=== PATIENT | male | born 1950 | race Caucasian/White ===

== ENCOUNTER → 2017-09-24 09:49 | Outpatient (CLI) | payer MEDICARE, OTHER, SELFPAY ==
[2017-09-24 10:55] LABS: Amphetamine Urine VISTA NEGATIVE (<1000 ng/mL); Barbiturate Urine VISTA NEGATIVE (< 200 ng/mL); Benzodiazepine Urine VISTA NEGATIVE (< 200 ng/mL); Cocaine Urine VISTA NEGATIVE (< 300 ng/mL); Ecstacy Urine VISTA NEGATIVE (< 500 ng/mL); Methadone Urine VISTA NEGATIVE (< 300 ng/mL); PCP Urine VISTA NEGATIVE (< 25 ng/mL); THC Urine VISTA NEGATIVE (< 50 ng/mL); Vista UDS pH Range 5
== END ==
PROVIDERS: Visit Provider Anesthesiology Pain Medicine
DX: F11.20 Opioid dependence, uncomplicated (principal)
CPT/HCPCS: 80307

== ENCOUNTER 2018-04-08 13:00 | Outpatient (RCR) | payer MEDICARE, OTHER, SELFPAY ==
--- NOTE | 2018-01-28 13:04 | HP.PTEVAL_ITS ---
Patient's Visit Information SRIRAM MADDOX is a 67 year old M referred to Physical Therapy by Out of Town Doctor with a diagnosis of s/p laminectomy. Date of Evaluation: 01/28/18 Physical Therapist: Vinicio Leyva DPT, OC - Visit Plan Frequency: 2x /Week Duration: 2 Months Plan: 2x/week for 6-8 weeks for. 1. Ensure LB ROM improving and HEP. 2. quad /HS and piri and hip flexor and gastroc stretches taught for HEP. 3. LE adn core strength, emphasize L PF strength. 4. Functional progression back to golf swing. Pt is [employer] member and emphasis put on progression to I. - Subjective Subjective: Aug 05 2016 had open heart surgery and pulled vein from L LE. Rowing machine in cardiac rehab started back problem. [facility] did surgery 12/03 to take spur off spine. This was due to shooting pain down legs which was gone immediately after surgery. Was in pain management prior with multiple injections. L leg is very weak and it was very painful prior to surgery. Can' t go up on L toes due to weakness. No exercises yet, just got cleared last week as he has been walking only for the last couple months. Was walking 3-6 miles prior to this problem, going about a mile now. Sleep is OK. Pain is not present except with bending when he gets it on the left side trasniently. Not emplyed. Likes to golf and wants to get back to it, has swung wedge shots last week. Basic ADLs are Ok, steps to basement are OK, notices weakness in L LE. Walk is not normal as it is hard to push off with L LE. - Pain L LBP Pain Intensity (Out of 10): 0 Pain Intensity Range: 0, 4 - Objective Walks slowly but I, stiff in spine, transfers I, Steps are reciprocal with a rail, L heel plops to step descending. LB AROM ext max limited, SB mod limited , flexion mod limited especially lower L/S. HS, quads and gastroc flex is poor. - Slump and SLR. Strength is 4/5 throughout LE except L plantar flexionw hcih is 3/5 adn unable to elevate body weight. reflexes 2/3 in patella and achilles B. Sensation WNL to gross light touch. Walking does show some poor push off on L. - Goals Goal 1:: Full L/ S ROM without pain Goal Time Frame: 4-6 Weeks Goal 2:: I approp flex adn strength program for core and LE Goal Time Frame: 6-8 Weeks Goal 3:: plan to resume golfing Goal Time Frame: 6-8 Weeks Goal 4:: Pt report 90% back to normal and guillermo ctivities including walking to feel good. Goal Time Frame: 6-8 Weeks - Rehabilitation Potential Physical Therapy Diagnosis: s/p laminectomy Rehabilitation Potential: Fair - Anticipated Interventions Patient/Client Instruction: Educate patient on: Condition, Plan of Care For the Purpose of:: To decrease pain, To increase ROM, To improve ability of physical actions for home/community/work/leisure, To improve gait and locomotor functions Therapeutic Exercise to Include: Strength training, Postural training, Flexibilty training, Gait and locomotor training, Passive ROM, Active ROM, Lizandro Exercises For the Purpose of:: To decrease pain, To increase ROM, To improve ability of physical actions for home/community/work/leisure, To improve gait and locomotor functions Manual Therapy Techniques to Include: Scar massage, Passive ROM For the Purpose of:: To increase ROM Cryotherapy (ice pack, ice massage): Yes Thermo therapy (hot pack): Yes For the Purpose of:: To decrease pain Thank you for the opportunity to evaluate your patient. For Medicare and Medicare HMO plans, please review the plan of care and approve it. It will need to be FAXED BACK to us at [phone] for Medicare purposes. Please let me know if there are questions or concerns regarding this plan of care. Physician Signature: Date:
--- NOTE | 2018-03-12 13:59 | HP.PTREVAL ---
PARESH LALA [employer] SAWYER, It has been my pleasure to treat SRIRAM MADDOX over the last 8 visits for s/p laminectomy. Please see the progress note below for an update on the physical therapy plan of care! Subjective: Doesn't feel like he is making much improvement with pain. Strength and flex impriving but still has pain L hip and calf muscle. Will have US tomorrow to rule out kidney stones. No f/u visit with . Sleep is OK on left side. Worse up and on feet. Feels better for an hour after leaving PT. Worst pain is to 8/10 after sitting for a long period of time. Objective/Function: ROM is looking good but still some pain with L SB and ext in L LB. finds neutral spine well with cues. OVERALL IS SLOWLY IMPROVING. Plan Plan: continue 2x/week for 4 weeks for. 1. neutral spine focus with core strength and LE/postural strength and progress to HEP with band and mat and BW exercises with pics. Goals Goal 1:: Full L/ S ROM without pain Goal Time Frame: 4-6 Weeks Goal Progress: Progressing Goal 2:: I approp flex adn strength program for core and LE Goal Time Frame: 6-8 Weeks Goal Progress: Progressing Goal 3:: plan to resume golfing Goal Time Frame: 6-8 Weeks Goal Progress: Progressing Goal 4:: Pt report 90% back to normal and guillermo ctivities including walking to feel good. Goal Time Frame: 6-8 Weeks Goal Progress: Progressing Anticipated Interventions Patient/Client Instruction: Educate patient on: Condition, Plan of Care For the Purpose of:: To decrease pain, To increase ROM, To improve ability of physical actions for home/community/work/leisure, To improve gait and locomotor functions Therapeutic Exercise to Include: Strength training, Postural training, Flexibilty training, Gait and locomotor training, Passive ROM, Active ROM, Lizandro Exercises For the Purpose of:: To decrease pain, To increase ROM, To improve ability of physical actions for home/community/work/leisure, To improve gait and locomotor functions Manual Therapy Techniques to Include: Scar massage, Passive ROM For the Purpose of:: To increase ROM Cryotherapy (ice pack, ice massage): Yes Thermo therapy (hot pack): Yes For the Purpose of:: To decrease pain Please do not hesitate to contact me at [phone] by phone or if you have questions or concerns regarding this new plan of care! Sincerely, Vinicio Leyva, DPT, OC
--- NOTE | 2018-06-20 14:11 | HP.PT.NRP ---
HP - Discharge Summary (1) - Patient Information SRIRAM MADDOX was seen in my office for initial evaluation on 01/28/18. The following Plan of Care was established for this patient: Initial Frequency: 2x /Week Initial Duration: 2 Months - Anticipated Interventions Patient/Client Instruction: Educate patient on: Condition, Plan of Care For the Purpose of:: To decrease pain, To increase ROM, To improve ability of physical actions for home/community/work/leisure, To improve gait and locomotor functions Therapeutic Exercise to Include: Strength training, Postural training, Flexibilty training, Gait and locomotor training, Passive ROM, Active ROM, Lizandro Exercises For the Purpose of:: To decrease pain, To increase ROM, To improve ability of physical actions for home/community/work/leisure, To improve gait and locomotor functions Manual Therapy Techniques to Include: Scar massage, Passive ROM For the Purpose of:: To increase ROM Cryotherapy (ice pack, ice massage): Yes Thermo therapy (hot pack): Yes For the Purpose of:: To decrease pain This patient was last seen in our office 04/08/18. Pertinent comments regarding their Physical therapy will appear below: Pt seen 15 visits of plan of care but no showed for his last couple visits. At this point, it has eleanor over two months and I will discontinue due to nonattendance. At this point I will be discontinuing this patient from physical therapy. I would be happy to see this patient again in the future if found appropriate by the physician. Thank you! Vinicio Leyva, DPT, OCS, CSCS
== END 2018-04-08 19:00 | disposition home or self-care (01) ==
LOC: PT 13:00
DX: Z98.890 Other specified postprocedural states (principal)
CPT/HCPCS: 97110; 97162; 97530

== ENCOUNTER → 2018-06-17 09:53 | Outpatient (CLI) | payer MEDICARE, OTHER, SELFPAY ==
--- NOTE | 2018-06-17 10:06 | ECHOD_ITS ---
Reason For Study: CAD/ASHD Procedure This was a 2D Doppler, Color Flow transthoracic echocardiogram. Exam performed in department. Left Ventricle Normal size and thickness. The estimated ejection fraction is 65 %. Stage 1 diastolic dysfunction. No regional wall motion abnormalities noted. Right Ventricle Normal size and thickness. Normal systolic function. Atria Normal left atrium. Normal right atrium. Normal atrial septum. Mitral Valve The mitral valve is structurally normal. No prolapse or stenosis seen. Tricuspid Valve Normal tricuspid valve. Trivial tricuspid valve insufficiency. Right ventricular systolic pressure estimated to be 30 mmHg. Aortic Valve Trisinus/trileaflet aortic valve. Moderate diffuse aortic valve thickening. Mild to moderate aortic stenosis. Peak aortic valve gradient 37 mmHg. Mean aortic valve gradient 18 mmHg. Calculated aortic valve area (continuity equation) is 1.0 cm2. Trivial aortic valve insufficiency. Pulmonic Valve Normal pulmonic valve. Great Vessels Normal aortic root. Normal arch. Normal inferior vena cava. Inferior vena cava collapse with sniff. Pericardium/Pleural No pericardial effusion. MMode/2D Measurements & Calculations LVIDd: 4.8 cm IVSd: 0.91 cm LVOT diam: 2.0 cm LVIDs: 3.3 cm LVPWd: 1.0 cm LVOT area: 3.2 cm2 RVDd: 2.7 cm FS: 31.2 % Ao root diam: 3.2 cm LAV(MOD-bp): 56.2 ml LA A4 area: 18.2 cm2 LAV(MOD-bp) Indexed: 28.3 ml/m2 LAV(MOD-sp2): 55.9 ml LAV(MOD-sp4): 53.6 ml LA dimension(2D): 4.0 cm RA A4 area: 15.7 cm2 Time Measurements MV dec time: 0.33 sec Doppler Measurements & Calculations MV E max josh: 70.4 cm/sec Lat Peak E' Josh: 7.0 cm/sec Med Peak E' Josh: 4.7 cm/sec MV A max josh: 102.6 cm/sec E/E' lat: 10.1 E/E' med: 14.9 MV E/A: 0.69 Ao V2 max: 295.9 cm/sec LV V1 max: 97.4 cm/sec SV(LVOT): 70.1 ml Ao max P.0 mmHg LV V1 max P.8 mmHg Ao V2 mean: 200.3 cm/sec LV V1 mean P.0 mmHg Ao mean P.8 mmHg LV V1 mean: 66.5 cm/sec Ao V2 VTI: 63.3 cm LV V1 VTI: 22.0 cm BARBARA(I,D): 1.1 cm2 BARBARA(V,D): 1.0 cm2 PA V2 max: 102.9 cm/sec TR max josh: 238.0 cm/sec TR max P.8 mmHg Interpretation Summary The estimated ejection fraction is 65 %. Stage 1 diastolic dysfunction. Trivial tricuspid valve insufficiency. Right ventricular systolic pressure estimated to be 30 mmHg. Trivial aortic valve insufficiency. Mild to moderate aortic stenosis. Compared to echo report dated 09/05/2015, no appreciable changes noted. Ordering Physician: Lavell Pinon Referring Physician: [facility] Performed By: Renee Sheldon, CONCHITA, RVT
--- OUTSIDE RECORDS SUMMARY | 2018-08-03 10:06 | XMS RPT_ITS ---
:1950 Author Organization OHIP Support Name Relationship Address Phone BRADLEY VIDALES Unavailable [address] + [place] [address] R Unavailable Unavailable Unavailable CROWNER, BRADLEY Unavailable [address] + [place] [address] R Unavailable Unavailable Unavailable CROWNER, BRADLEY Unavailable [address] + [place] [address] R Unavailable Unavailable Unavailable CROWNER, BRADLEY Unavailable [address] + [place] [address] R Unavailable Unavailable Unavailable CROWNER, BRADLEY Unavailable [address] + [place] [address] R Unavailable Unavailable Unavailable CROWNER, BRADLEY Unavailable [address] + [place] [address] R Unavailable Unavailable Unavailable CROWNER, BRADLEY Unavailable [address] + [place] [address] R Unavailable Unavailable Unavailable CROWNER, BRADLEY Unavailable [address] + [place] [address] R Unavailable Unavailable Unavailable CROWNER, BRADLEY Unavailable [address] + [place] [address] R Unavailable Unavailable Unavailable CROWNER, BRADLEY Unavailable [address] + [place] [address] R Unavailable Unavailable Unavailable CROWNER, BRADLEY Unavailable [address] + [place] [address] R Unavailable Unavailable Unavailable Care Team Providers Name Role Phone ANTWAN HAYWOOD Referring Unavailable ANTWAN HAYWOOD Referring Unavailable JESS LEONARDO Attending Unavailable JESS LEONARDO Referring Unavailable PARAM RIVERS Attending Unavailable SCHLENK, JESS P Referring Unavailable SCHLENK, JESS P Referring Unavailable SCHLENK, JESS P Referring Unavailable HAZMICHAEL SMILEY Attending Unavailable SCHMARKUS, JESS P Referring Unavailable ADITI, PARESH S (SUBSTITUTE SCHOOL NURSE) Referring Unavailable ADITI, PARESH S (SUBSTITUTE SCHOOL NURSE) Referring Unavailable ADITI, PARESH S (SUBSTITUTE SCHOOL NURSE) Attending Unavailable ADITI, PARESH S (SUBSTITUTE SCHOOL NURSE) Referring Unavailable HAYWOODANTWAN Attending Unavailable SCHMARKUS, JESS P Admitting Unavailable SCHLENK, JESS P Attending Unavailable SCHLENK, JESS P Referring Unavailable ADITI, PARESH Martinez (SUBSTITUTE SCHOOL NURSE) Referring Unavailable SCHLENK, JESS Sparrow Attending Unavailable Lavell Pinon [facility] Referring Unavailable Pinon, Lavell Attending Unavailable Zi, Lavell Referring [facility]available Marisol Hoff [facility]ending [facility] Referring Unavailable HoffMarisol Attending [facility] Referring Unavailable Basali, Loreto Attending Unavailable Basali, Loreto Referring [facility] Unavailable Lavell Pinon Attending Unavailable Lavell Pinon Referring Unavailable [facility]ending [facility] Referring Unavailable Rosalina Subramanian Attending Unavailable Lavell Pinon [facility]ending [facility] Referring [facility] Unavailable INEZ HUSTON Attending Unavailable INEZ HUSTON Referring Unavailable Lavell Pinon Attending Unavailable Lavell Pinon Referring [facility]available [facility] Unavailable PROBLEMS PROBLEMS DATE TYPE CONDITION / CODE ATTENDING STATUS SOURCE 06/26/2018 Unknown I73.9 - Peripheral Lavell Pinon Active [place] vascular disease, Community unspecified / Hospital I73.9(ICD-10) Repository 06/26/2018 Unknown I25.10 - Lavell Pinon Active [place] Atherosclerotic heart [facility] disease [facility] coronary artery Repository without angina pectoris / I25.10(ICD-10) 06/26/2018 Unknown E78.5 - Lavell Pinon Active [place] Hyperlipidemia, Community unspecified / Hospital E78.5(ICD-10) Repository 06/26/2018 Unknown I35.0 - Nonrheumatic Lavell Pinon Active [place] aortic (valve) Community stenosis / Hospital I35.0(ICD-10) Repository 07/02/2018 Unknown Z98.890 - Other INEZ HUSTON Active [place] specified [facility] / Z98.890(ICD-10) Repository 02/09/2016 Active Chronic kidney NA Active [place] disease, stage 3 [facility] (moderate) / [place] N18.3(ICD-10) Repository 02/09/2016 Active Benign prostatic NA Active [place] hyperplasia without [facility] lower urinary tract [place] symptoms / Repository N40.0(ICD-10) 02/28/2018 Active Encounter for ANTWAN HAYWOOD Active [place] screening for other [facility] disorder / [place] Z13.89(ICD-10) Repository 01/23/2018 Active Unknown / SCHLENK, Active [place] UNK(Unknown) JESS P [facility] [place] Repository 12/04/2017 Active Spinal stenosis, SCHLENK, Active [place] lumbar region with JESS P [facility] neurogenic [place] claudication / Repository M48.062(ICD-10) 12/04/2017 Active Other acute SCHLENK, Active [place] postprocedural pain / JESS P [facility] G89.18(ICD-10) [place] Repository 12/04/2017 Active Other specified SCHLENK, Active [place] postprocedural states JESS P [facility] / Z98.890(ICD-10) [place] Repository 12/04/2017 Active 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, 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 P [facility] radiculopathy, lumbar [place] region / Repository M47.816(ICD-10) 12/03/2017 Active Accidental puncture JORDEN, Active [place] or laceration of dura JESS P [facility] during a procedure / [place] G97.41(ICD-10) Repository 02/09/2016 Active Type 2 diabetes NA Active [place] mellitus with [facility] diabetic chronic [place] kidney disease / Repository E11.22(ICD-10) 02/09/2016 Active 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 / [facility] Z79.4(ICD-10) [place] Repository 08/23/2010 Active Hyperlipidemia, NA Active [place] unspecified / [facility] E78.5(ICD-10) [place] Repository 11/26/2017 Active Encounter for other NA Active [place] preprocedural [facility] examination / [place] Z01.818(ICD-10) Repository 11/22/2017 Unknown Z01.810 - Encounter Lavell Pinon Active [place] for preprocedural [facility] examination / Repository Z01.810(ICD-10) 11/19/2017 Active Personal history of NA Active [place] other endocrine, [facility] nutritional and [place] metabolic disease / Repository Z86.39(ICD-10) 10/17/2017 Unknown M99.03 - Segmental Dossie, Wendy Active [place] and somatic [facility] Community dysfunction of lumbar Hospital region / Repository M99.03(ICD-10) 10/17/2017 Unknown M99.02 - Segmental Dossie, Wendy Active [place] and somatic [facility] Community dysfunction of Hospital thoracic region / Repository M99.02(ICD-10) 10/17/2017 Unknown M99.05 - Segmental Dossie, Wendy Active [place] and somatic [facility] Community dysfunction of pelvic Hospital region / Repository M99.05(ICD-10) 10/17/2017 Unknown M48.061 - Spinal Dossie, Wendy Active [place] stenosis, lumbar [facility] region without Hospital neurogenic Repository claudication / M48.061(ICD-10) 09/24/2017 Unknown F11.20 - Opioid Basali, Ayman Active [place] dependence, Community uncomplicated / Hospital F11.20(ICD-10) Repository PROCEDURES PROCEDURES No Procedure Records FoundRESULTS RESULTS ARTERIAL Observed: 07/04/2018 Status: F Source: [place] 1:25 PM [facility] REPOSITORY [facility] Cardiovascular Services [address] [place] [address] Lower Ext Art Exam w/ Exercise 07/04/18 0955 MR#: [id number] Acct: [id number] Name: SAM VIDALES Rep #: [id number] : 1950 68 From: Abhilash Busch MD Attending Dr: Lavell Pinon MD Status: REG CLI Ordering Dr: Lavell Pinon MD Date: 07/04/18 Location: [facility] Sex: M C Admitted: Reason For Study: PVD Left Segmental Pressures Left brachial= 131mmHg. Left posterior tibial artery = 184mmHg. Left dorsalis pedis artery = 173mmHg. Left digit = 103 mmHg. The left dorsalis pedis waveforms are triphasic. The left posterior tibial artery waveforms are triphasic. Right Segmental Pressures Right brachial= 125mmHg. Right posterior tibial artery = 171mmHg. Right dorsalis pedis artery = 185mmHg. Right digit = 101 mmHg. The right dorsalis pedis waveforms are triphasic. The right posterior tibial artery waveforms are triphasic. Indices The right ankle brachial index by the dorsalis pedis is 1.4. The right ankle brachial index by the posterior tibial artery is 1.3. The right digital-brachial index is .77. The right post exercise ankle brachial index is N/C. The left ankle brachial index by the dorsalis pedis is 1.3. The left ankle brachial index by the posterior tibial artery is 1.4. The left digital-brachial index is .79. The left post exercise ankle brachial index is 1.3. Interpretation Summary Triphasic waveforms are noted at ankle level bilaterally. Resting ankle-brachial indices appear bilaterally normal. Resting digital-brachial indices appear bilaterally normal. Following exercise, ankle pressures augment bilaterally, which is a normal physiological response. There is no evidence of significant arterial occlusive disease on either side. Ordering Physician: Lavell Pinon Referring Physician: Lavell Pinon Performed By: Catalina Muñiz [facility] 07/04/18 1325 Date Abhilash Busch MD CC: [facility]; Lavell Pinon MD Date Dictated: 07/04/18 0955 Date Transcribed: 07/04/181324 Rigging Up Man: Signed CARDIOLOGY VISIT Observed: 06/26/2018 Status: F Source: [place] REPORT 2:13 PM [facility] REPOSITORY [facility] [address] [place] [address] OFFICE VISIT Date of Service: 06/26/18 MR#: [id number] Acct: [id number] Name: SAM VIDALES Rep #: [id number] : 1950 Provider: Lavell Pinon MD Age/Sex: 68/M Location: [facility] Status: Signed HPI HPI Chief Complaint: Routine f/u Details: Details: Referring Physician: Dr. Param Rivers This is a 68-year-old gentleman that presents here today for a cardiovascular follow-up. He has a history of coronary artery disease with aortic stenosis, hypertension, hyperlipidemia and diabetes. Patient had a heart catheterization in September 2015 which demonstrated 80% stenosis in the proximal to mid LAD, 70% stenosis in the proximal first diagonal, chronic total occlusion of the proximal first obtuse marginal artery, 60% stenosis in the proximal left circumflex. Fractional flow reserve of the proximal to mid circumflex artery was 0.87. Good collateral vessels from lateral second diagonal to first obtuse marginal were present. He was recommended that patient be considered for bypass surgery of the diagonal electively. And in the meantime been treated with optimal medical therapy. He had an echocardiogram done in August 2015 which demonstrated mild concentric LVH with an estimated ejection fraction of 65%. Stage I diastolic dysfunction. Right ventricular systolic pressure 25 mmHg. Moderate to severe thickening of a non- coronary cusp of aortic valve. Moderate aortic stenosis. Patient was referred to Dr. Bruno at that time, patient opted not to undergo surgery at that time. He had multiple questions and wanted to wait. He was previously in to see Dr. Bruno and had an echocardiogram done. Echocardiogram demonstrated normal left ventricular size and systolic function with no regional wall motion abnormalities. Ejection fraction 56%. Mild to moderate ventricular hypertrophy. Stage I diastolic dysfunction. Anatomy of the aortic valve was difficult to determine. Valve appears to at least be functionally bicuspid. Heavy calcification noted. Peak and mean transvalvular gradients are 32 and 15 mmHg. Estimated aortic valve area is 1.1 cm . Trivial aortic insufficiency. Moderate aortic stenosis. he decided to hold off on bypass surgery at that time. Pt then decided to revisit Dr. Bruno recently for continued symptoms of chest pain. He stated that for the first few minutes when he exercises he has chest discomfort to the left side of his chest. These symptoms last 5-10 minutes. After that he he can increase his walking speed. He is able to walk 3.8 miles an hour for 3- 6 miles. He walks every day. He was also able to golf last year. He would walk 18 holes of golf. He does not have any palpitations. He does not near syncope/syncope. He does not have any edema. He feels that he is just starting to get his DM under control. Although he sts that when he recently restarted his metformin and his weight increased by 10 lbs. He would like to see Endrocrine. Dr. Bruno had requested that he have a right and left heart cath done to reasses his anatomy. Per pt he states that he does not think that he will need his valve done. this was repeated on 07/24/16 which demonstrated normal right heart pressures, normal wedge pressure, cardiac output of 4.2, EF of 65%, mild aortic stenosis with a peak to peak gradient of 14 mmHg, no evidence of aortic insufficiency, severe left main, LAD occluded, obtuse marginal #1 and moderate stenosis of the left circumflex. The patient finally underwent successful multivessel bypass surgery by Dr. Bruno 08/06/16. He did not undergo aortic valve replacement. He received a VALVERDE to the LAD, a free right internal mammary artery to OM #1 as a Y graft off of the left internal mammary artery, and SVG to the OM #2,and SVG to the posterior lateral branch. He is now here in follow-up. Recent lipid profile demonstrates: Chol: 148 Tri: 78 HDL: 53 LDL:79 VLDL: 16- he does have these done at the [facility]. patient was doing well at cardiac rehab until he injured his back on a rowing machine. He had been undergoing physical therapy under the guidance of Dr. Antwan Sánchez with minimal improvement. Unfortunately, it appears he required spinal stenosis surgery at the end of November 2017. He was deemed at low risk for noncardiac surgery. Patient underwent back surgery, and his symptoms essentially resolved up until recently when he has had weakness in his left lower extremity. He also has some mild pain in his left lower extremity with exercise and he is concerned about claudication. He denies any chest pain, angina, shortness of breath or dyspnea on exertion. He is taking and tolerating his other medicines well. His most recent echocardiogram dated 06/17/18 demonstrated normal ejection fraction of 65%, mild to moderate aortic stenosis, trivial aortic insufficiency, and RVSP of 30 mmHg. In office today's blood pressure is 120/50, pulse is 60 and regular. His physical exam Is as below. EKG Dictated11/14/16 demonstrates normal sinus rhythm, normal axis, normal intervals, nonspecific diffuse ST segment changes. Lipids as of 08/17/15 showed HDL of 53 and LDL of 79. His lipids as of 07/09/17 show an LDL of 115 and HDL of 71. Repeat lipids were performed at the [facility] however we do not have those results. He reports his LDL cholesterol is markedly improved. 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 Is patient in pain?: No Allergies lisinopril Adverse Reaction (Mild, Verified 06/26/18 13:49) cough Medications Insulin Aspart [Novolog Flexpen (BKC)] 0 units SC TIDCM 09/08/15 [History Confirmed 06/26/18] Insulin Glargine,Hum.rec.anlog [Lantus] 0 unit SQ TID 09/08/15 [History Confirmed 06/26/18] Losartan Potassium [Cozaar] 100 mg PO DAILY 09/08/15 [History Confirmed 06/26/18] Aspirin [Aspirin, Baby] 162 mg PO DAILY@0800 07/26/16 [History Confirmed 06/26/18] carvedilol 25 mg tablet 25 mg PO BID 11/22/17 [History Confirmed 06/26/18] amlodipine 10 mg tablet 10 mg PO DAILY 06/26/18 [History Confirmed 06/26/18] atorvastatin 40 mg tablet 20 mg PO QHS 06/26/18 [History Confirmed 06/26/18] chlorthalidone 25 mg tablet 25 mg PO DAILY 06/26/18 [History Confirmed 06/26/18] glipizide ER 10 mg tablet, extended release 24 hr 10 mg PO DAILY 06/26/18 [History Confirmed 06/26/18] saxagliptin 5 mg tablet 5 mg PO DAILY 06/26/18 [History Confirmed 06/26/18] [facility] Medical History Type 2 diabetes mellitus without complications (Chronic) Non-rheumatic aortic stenosis (Chronic) Atherosclerosis of coronary artery of [place] heart without angina pectoris (Chronic) Hyperlipidemia (Chronic) Hypertension (Chronic) DDD (degenerative disc disease), lumbar (Chronic) Spinal stenosis of lumbar region without neurogenic claudication (Chronic) Other intervertebral disc degeneration, lumbar region (Acute) Other intervertebral disc displacement, lumbosacral region (Acute) Other spondylosis, lumbar region (Acute) Spondylosis of lumbosacral region without myelopathy or radiculopathy (Acute) Spondylosis without myelopathy or radiculopathy, lumbar region (Acute) Surgical History H/O coronary artery bypass surgery (Chronic 08/06/16) Family History Sister Heart disease Daughter Heart disease Social History Smoking Status: Former smoker ROS Const Const: Positive for other (Feels well); negative for fatigue, weakness, body ache, fever(s), headache(s), chills, frequent falls, night sweats, daytime sleepiness, difficulty sleeping, excessive sweating, weight gain, weight loss, increased appetite, poor appetite or anorexia Eyes Eyes: Negative for blind spots, loss of peripheral vision, transient loss of vision, blurry vision, change in vision, double vision, floaters, tunnel vision or other ENT ENT: Negative for headache(s), dizziness, hearing loss, tinnitus, Nosebleed/epistaxis, balance problems, post nasal drip, lip swelling, tongue swelling, bleeding gums, hoarseness, neck pain, dry mouth or other Cardio Chest Pain: No Palpitations: No Edema: None Muscle aches with walking: Bilateral (Not aches so much as fatigue but [facility] told him decreased circ in legs) Resp Respiratory: Negative for SOB with activity, SOB at rest, SOB orthopnea\SOB lying down, Cough, Coughing up blood/hemoptysis, chest congestion, pain on inspiration, snoring, stridor, wheezing, crackles, paroxysmal nocturnal dyspnea or other GI GI: Negative nausea, vomiting, heartburn, constipation, belching, bloating, cramping, vomiting blood/hematemesis, bright, red blood in stools, black,tarry stools, loose stools, Difficulty Swallowing or other : Negative for hematuria, frequent nighttime urination/ nocturia, erectile dysfunction or abnormal vaginal bleeding Musc Musc: Negative for balance problems, muscle aches/ myalgia, muscle weakness or joint pain Skin Skin: Negative redness, non-healing lesions, rash, unusual bruising, skin ulcer, wounds, jaundice or other Neuro Neuro: Negative for weakness, headache(s), frequent falls, blurry vision, double vision, dizziness, lightheadedness, near syncope, syncope, orthostatic symptoms, confusion, memory loss, restless legs, vertigo, seizures, lack of coordination or other Lang Hematologic/Lymphatic: Negative for easy bleeding, easy bruising, enlarged lymph nodes or other Endo Endo: Negative for fatigue, excessive sweating, cold intolerance, heat intolerance, flushing, increased thirst/drinking, increased hunger, hair loss, hair growth or other Psych Psych: Negative for anxiety, depression, thoughts of harming anyone, thoughts of harming yourself, visual hallucinations, panic attacks or audible hallucinations Allergy Allergy/Immunology: Negative for lip swelling, Negative for tongue swelling, Negative for rash, Negative for throat swelling, Negative for hives Cardiology Exam Const Appearance: cooperative, healthy appearing and no acute distress Nutritional Appearance: well nourished Orientation: alert, oriented x3 and oriented to person Head Head: normal to inspection, atraumatic and normocephalic Nose: external nose normal Face and Sinus: face symmetric Mouth: oral mucosae normal Eyes General: appearance normal, both eyes and all related structures Eyelids: eyelids normal Conjunctivae: conjunctivae normal Pupils: PERRL and normal by confrontation EOM: EOM intact bilaterally Neck Neck: normal visual inspection and full ROM Carotids: normal carotid upstroke Chest Chest inspection: normal inspection of the chest Auscultation: Bilateral: Clear to Auscultation Cardio Palpation: normal PMI Rate: regular rate Rhythm: regular rhythm Heart sounds: S2 normal Murmur: Grade 2/6 and crescendo-decrescendo GI GI: normal to inspection, no hepatosplenomegaly and bowel sounds present Neuro General: alert, oriented x3, awake, CN's II-XI intact bilaterally and moves all extremities Skin Skin: no rashes or lesions noted Extremities Pulses: Normal: Right Femoral Pulse, Left Femoral Pulse, Right Dorsalis Pedis Pulse, Left Dorsalis Pedis Pulse, Right Posterior Tibial Pulse, Left Posterior Tibial Pulse, Right Radial Pulse, Left Radial Pulse Lower Extremity Edema: None: Bilateral Psych Psychological: normal affect Assessment AND Plan 1. Atherosclerosis of coronary artery of [place] heart without angina pectoris I25.10 CABG x 4 VALVERDE-LAD, Free GWEN-OM1 Y graft off VALVERDE, SVG-OM2, SVG-PLB 08/06/2016 Plan 1. Coronary artery disease: No exertional anginal symptoms at this time. No indication for any additional stress testing. He is taking and tolerating his medicines well. His blood pressure is much more optimized with medicine adjustment. I recommend he continue his baby aspirin, amlodipine, Coreg, chlorthalidone, and losartan. He most likely will require surveillance stress testing at the 5-year nani post bypass. 2. Hyperlipidemia E78.5 Plan 2. Hyperlipidemia: His LDL and HDL cholesterol are under fairly good control. Patient gets his lipids done at the [facility]. He reports that his LDL is adequately controlled. Continue Lipitor. 3. Claudication of lower extremity I73.9 Plan 3. Claudication of left lower extremity: The patient's symptoms may be related to claudication. His distal pulses are somewhat diminished particularly on the left side. Have recommended he undergo a ambulatory PVR. Orders Orders: 4. Non-rheumatic aortic stenosis I35.0 Plan 4. Aortic stenosis: Patient's most recent echocardiogram on 06/17/18 showed mild to moderate aortic stenosis which has remained relatively stable since our initial visits. He has had no sentinel events of lightheadedness, dizziness, presyncope or syncope. We will continue surveillance echocardiograms on a yearly basis. 5. Return office in months. This note was generated using a voice recognition system and there may be incorrect words, spelling or punctuation that were not noted when reviewing the office note prior to saving. Plan Detail Other Medications New: Discontinued: Goals Decrease pain and inflammation as patient awaits surgery Barriers DDD Stenosis Follow Up +6M (Pinon) Coding Level of Care Code Off vis,est,level 3 Diagnoses Atherosclerosis of coronary artery of [place] heart without angina pectoris I25.10 Hyperlipidemia E78.5 Claudication of lower extremity I73.9 Non-rheumatic aortic stenosis I35.0 Coding Level of Care Code Off vis,est,level 3 Diagnoses Atherosclerosis of coronary artery of [place] heart without angina pectoris I25.10 Hyperlipidemia E78.5 Claudication of lower extremity I73.9 Non-rheumatic aortic stenosis I35.0 06/26/18 1413 <Electronically signed by Lavell Pinon MD> Date Lavell Pinon MD Cosigner Signature: Date (if applicable) CC: [facility] ECHOCARDIOGRAM COMPLETE Observed: 06/18/2018 Status: F Source: [place] 8:32 AM [facility] REPOSITORY [facility] Cardiovascular Services [address] [place] [address] Echo Complete 06/17/18 1013 MR#: [id number] Acct: [id number] Name: SAM VIDALES Rep #: [id number] : 1950 68 From: Lavell Pinon MD Attending Dr: Lavell Pinon MD Status: REG CLI Ordering Dr: Lavell Pinon MD Date: 06/17/18 Location: [facility] Sex: M C Admitted: Reason For Study: CAD/ASHD Procedure This was a 2D Doppler, Color Flow transthoracic echocardiogram. Exam performed in department. Left Ventricle Normal size and thickness. The estimated ejection fraction is 65 %. Stage 1 diastolic dysfunction. No regional wall motion abnormalities noted. Right Ventricle Normal size and thickness. Normal systolic function. Atria Normal left atrium. Normal right atrium. Normal atrial septum. Mitral Valve The mitral valve is structurally normal. No prolapse or stenosis seen. Tricuspid Valve Normal tricuspid valve. Trivial tricuspid valve insufficiency. Right ventricular systolic pressure estimated to be 30 mmHg. Aortic Valve Trisinus/trileaflet aortic valve. Moderate diffuse aortic valve thickening. Mild to moderate aortic stenosis. Peak aortic valve gradient 37 mmHg. Mean aortic valve gradient 18 mmHg. Calculated aortic valve area (continuity equation) is 1.0 cm2. Trivial aortic valve insufficiency. Pulmonic Valve Normal pulmonic valve. Great Vessels Normal aortic root. Normal arch. Normal inferior vena cava. Inferior vena cava collapse with sniff. Pericardium/Pleural No pericardial effusion. MMode/2D Measurements AND Calculations LVIDd: 4.8 cm IVSd: 0.91 cm LVOT diam: 2.0 cm LVIDs: 3.3 cm LVPWd: 1.0 cm LVOT area: 3.2 cm2 RVDd: 2.7 cm FS: 31.2 % Ao root diam: 3.2 cm LAV(MOD-bp): 56.2 ml LA A4 area: 18.2 cm2 LAV(MOD-bp) Indexed: 28.3 ml/m2 LAV(MOD-sp2): 55.9 ml LAV(MOD-sp4): 53.6 ml LA dimension(2D): 4.0 cm RA A4 area: 15.7 cm2 Time Measurements MV dec time: 0.33 sec Doppler Measurements AND Calculations MV E max horacio: 70.4 cm/sec Lat Peak E' Horacio: 7.0 cm/sec Med Peak E' Horacio: 4.7 cm/sec MV A max horacio: 102.6 cm/sec E/E' lat: 10.1 E/E' med: 14.9 MV E/A: 0.69 Ao V2 max: 295.9 cm/sec LV V1 max: 97.4 cm/sec SV(LVOT): 70.1 ml Ao max P.0 mmHg LV V1 max P.8 mmHg Ao V2 mean: 200.3 cm/sec LV V1 mean P.0 mmHg Ao mean P.8 mmHg LV V1 mean: 66.5 cm/sec Ao V2 VTI: 63.3 cm LV V1 VTI: 22.0 cm BARBARA(I,D): 1.1 cm2 BARBARA(V,D): 1.0 cm2 PA V2 max: 102.9 cm/sec TR max horacio: 238.0 cm/sec TR max P.8 mmHg Interpretation Summary The estimated ejection fraction is 65 %. Stage 1 diastolic dysfunction. Trivial tricuspid valve insufficiency. Right ventricular systolic pressure estimated to be 30 mmHg. Trivial aortic valve insufficiency. Mild to moderate aortic stenosis. Compared to echo report dated 09/05/2015, no appreciable changes noted. Ordering Physician: Lavell Pinon Referring Physician: [facility] Performed By: Renee Sheldon, CONCHITA, RVT 06/18/18830 Date Lavell Pinon MD CC: [facility]; Lavell Pinon MD Date Dictated: 06/17/18 1013 Date Transcribed: 06/18/18830 Rigging Up Man: Signed RE-EVALUATION - PT (1) Observed: 03/14/2018 Status: F Source: DEVAN 6:45 AM [facility] REPOSITORY [facility] [address] [place], [place] [address] Fax REEVALUATION / MEDICARE RECERTIFICATION PHYSICAL THERAPY MR#: [id number] Acct: [id number] Name: SAM VIDALES Rep #: [id number] : 1950 67 From: Vinicio Leyva DPT, OCS, CSCS Referring : Status: REG RCR Insurance: MEDICARE PART A B [employer], It has been my pleasure to treat SAM VIDALES over the last 8 visits for s/p laminectomy. Please see the progress note below for an update on the physical therapy plan of care! Subjective: Doesn't feel like he is making much improvement with pain. Strength and flex impriving but still has pain L hip and calf muscle. Will have US tomorrow to rule out kidney stones. No f/u visit with Sleep is OK on left side. Worse up and on feet. Feels better for an hour after leaving PT. Worst pain is to 8/10 after sitting for a long period of time. Objective/Function: ROM is looking good but still some pain with L SB and ext in L LB. finds neutral spine well with cues. OVERALL IS SLOWLY IMPROVING. Plan Plan: continue 2x/week for 4 weeks for. 1. neutral spine focus with core strength and LE/postural strength and progress to HEP with band and mat and BW exercises with pics. Goals Goal 1:: Full L/ S ROM without pain Goal Time Frame: 4-6 Weeks Goal Progress: Progressing Goal 2:: I approp flex adn strength program for core and LE Goal Time Frame: 6-8 Weeks Goal Progress: Progressing Goal 3:: plan to resume golfing Goal Time Frame: 6-8 Weeks Goal Progress: Progressing Goal 4:: Pt report 90% back to normal and guillermo ctivities including walking to feel good. Goal Time Frame: 6-8 Weeks Goal Progress: Progressing Anticipated Interventions Patient/Client Instruction: Educate patient on: Condition, Plan of Care For the Purpose of:: To decrease pain, To increase ROM, To improve ability of physical actions for home/community/work/leisure, To improve gait and locomotor functions Therapeutic Exercise to Include: Strength training, Postural training, Flexibilty training, Gait and locomotor training, Passive ROM, Active ROM, Lizandro Exercises For the Purpose of:: To decrease pain, To increase ROM, To improve ability of physical actions for home/community/work/leisure, To improve gait and locomotor functions Manual Therapy Techniques to Include: Scar massage, Passive ROM For the Purpose of:: To increase ROM Cryotherapy (ice pack, ice massage): Yes Thermo therapy (hot pack): Yes For the Purpose of:: To decrease pain Please do not hesitate to contact me at [phone] by phone or if you have questions or concerns regarding this new plan of care! Sincerely, Vinicio Leyva, NAMRATA, OC <Electronically signed by Vinicio Leyva DPT, YOBANI, CSCS> 03/14/18 0645 CC: [facility]; OUT OF TOWN DOCTOR EBG Signed For Medicare only, by signing this I certify the plan of care. Physicians Signature Date PROGRESS Observed: 03/13/2018 Status: COMPLETED Source: [place] 10:19 AM [facility] REPOSITORY HNO ID: [id number] Author: Aleena Guan Rdms Service: (none) Author Type: (none) Type: Progress Notes Filed: 03/13/2018 10:19 AM Note Text: Radiology Service Progress Note PATIENT NAME: Sam Vidales DATE OF SERVICE: March 13, 2018 TIME: 10:19 AM PATIENT IDENTITY VERIFICATION COMPLETED USING TWO (2) METHODS: Patient confirmed name verbally and Date of . PATIENT GENDER DATA: Male PATIENT RELEVANT IMPLANT DATA REVIEWED: Not Applicable RADIOLOGY DEPARTMENT: Ultrasound PERIPHERAL IV DATA: Not applicable SIGNED BY: Aleena Guan Rdms March 13, 2018 10:19 AM US KIDNEY/BLADDER Observed: 03/13/2018 Status: F Source: [place] 10:09 AM [facility] REPOSITORY * * *Final Report* * * DATE OF EXAM: Mar 13 2018 10:09AM WRU 1055 - US KIDNEY/BLADDER / PROCEDURE REASON: Chronic kidney disease, stage 3 (moderate) * * * * Physician Interpretation * * * * EXAMINATION: RENAL ULTRASOUND CLINICAL HISTORY: Stage III chronic renal disease TECHNIQUE: Sonography of the kidneys and urinary bladder was performed. Images were obtained and stored in a permanent archive. MQ: UR_1 COMPARISON: None RESULT: Right Kidney: -Renal length: 11.2 cm -Parenchyma: Normal parenchymal echogenicity. Normal parenchymal thickness. -Collecting system: No hydronephrosis. -Calculus: Nonobstructing calculi within the renal pelvis measuring 5 mm and mid to inferior pole measuring 6 mm. -Lesion: Simple cyst within the superior pole measuring 1.2 x 0.8 x 1.2 cm. Left Kidney: -Renal length: 12.8 cm -Parenchyma: Normal parenchymal echogenicity. Normal parenchymal thickness. -Collecting system: No hydronephrosis. -Calculus: 5 mm nonobstructing calculus suspected within the inferior pole.. -Lesion: None. Bladder: Normal sonographic appearance. Prevoid volume measures 91.2 cc, post void volume measures 23.5 cc IMPRESSION: No acute process seen. Simple cyst of the superior pole the right kidney. Nonobstructing calculi suspected bilaterally. Rigging Up Man: PSCB Transcribe Date/Time: Mar 13 2018 4:36P Dictated by : PRASANNA MCCALL MD This examination was interpreted and the report reviewed and electronically signed by: PRASANNA MCCALL MD on Mar 13 2018 4:38PM EST [id number] PROGRESS Observed: 02/28/2018 Status: COMPLETED Source: [place] 3:33 PM [facility] REPOSITORY O ID: [id number] Author: Antwan Haywood (Fel) Service: (none) Author Type: Fellow Type: Progress Notes Filed: 02/28/2018 3:36 PM Note Text: Mr. Sam Vidales participated in the following study: Using Decision Analysis to Enhance Decision-Making Regarding Prostate Cancer Screening, IRB Protocol - CASE 7817, CCF [id number] Prior to study entry, he was given time to review the protocol consent. All questions were answered, both he and the study co-accident investigator - Antwan Haywood MD, then signed the consent. A copy of the consent was given to the patient for his personal records. While participating in the study, we performed a thorough review of the risks and benefits of PSA screening, based upon previously published literature and population-based statistics (Please see [facility] - PSA Screening Talking Points for Physicians). Using Mr. Sam Vidales's demographic information, and prior PSA screening, we calculated his individual risks using the PSA Screening Patient Decision Aide. The 15-year predicted probabilities of Prostate Cancer Diagnosis (PCDx), Prostate Cancer Mortality (PCM), and All-Cause Mortality (ACM), were as follows: With screening Without screening PCDx - 11% 9% PCM - 0.3% 0.4% ACM - 65.9% 66.9% After reviewing the information, Mr. Sam Vidales decided that he will: Undergo screening He was informed that he will receive a follow up phone call in approximately one month to assess his continuing opinion regarding this decision. Antwan Haywood MD Urology-Oncology Fellow c [phone] p [phone] PSA, FREE Collected: 02/28/2018 Status: F Source: [place] 10:51 AM [facility] REPOSITORY TYPE CODE TESTS RESULT OUT OF REFERENCE UNITS RANGE LAB PSA 0.00-2.59 ng/mL PSA, Diagnostic 1.15 Result Comment: Total PSA test methodology used is the Electrochemiluminescence Immunoassay. LAB PSAPER % PSA, Percent Free 33 DO NOT ORDER FOR SUPERIOR ONLY Result Comment: Less than 11% suggestive of prostate cancer. Greater than 23% suggestive of benign condition. Performed By: #### PSATF #### [facility] [address] [id number] HISTORY PHYSICAL Observed: 02/28/2018 Status: COMPLETED Source: [place] 9:35 AM [facility] REPOSITORY HNO ID: [id number] Author: Antwan Haywood (Fel) Service: (none) Author Type: Fellow Type: HANDP Filed: 02/28/2018 3:32 PM Note Text: UROLOGY HISTORY AND PHYSICAL EXAM SERVICE DATE: 02/28/2018 SERVICE TIME: 9 am REFERRING PROVIDER: SELF PCP: No primary care provider on file. GENDER: SUBJECTIVE CHIEF COMPLAINT: Left flank pain HISTORY OF PRESENT ILLNESS: Mr. Vidales is a 67 yo male w COPD, CABGx4, DMII on insulin, CKD III, [facility], presenting for chronic left flank pain. Hx of lumbar stenosis, L4-5 laminectomy 5/29/18. Seen by [facility]rology at the [facility], unsure if he underwent urology evaluation. PSA many years ago. No hx of hematuria. Flank pain - left sided, present since surgery. Radiates down to left hip / leg. Changes with position. SIGNS: Duration: 2 months Location: Flank (left) Severity: Moderate Quality: pain Context: As above Timing: Intermittently Modifying Factors: Yes - positional Associated Signs AND Symptoms: None PAST MEDICAL HISTORY Diagnosis Date - Acute gastritis without mention of hemorrhage 09/04/05 - Anemia, unspecified - Aortic stenosis, mild 02/09/2016 - Atherosclerosis of [place] coronary artery of [place] heart without angina pectoris 02/09/2016 - Chronic airway obstruction, not elsewhere classified 09/15/2007 - CKD (chronic kidney disease) stage 3, GFR 30-59 ml/min ([facility]) 02/09/2016 - Hyperlipidemia - Hypertension - Hypertrophy of prostate without urinary obstruction and other lower urinary tract symptoms (LUTS) - Personal history of noncompliance with medical treatment, presenting hazards to health - S/P CABG x 4 08/06/2016 - Type 2 diabetes mellitus with stage 3 chronic kidney disease, with long-term current use of insulin ([facility]) - Type II or unspecified type diabetes mellitus without mention of complication, not stated as uncontrolled - Unspecified hemorrhoids without mention of complication Hemorrhoids PAST SURGICAL HISTORY Procedure Laterality Date - CABG X (4) ARTERIAL GRAFTS 08/06/2016 - COLONOSCOP W/ OR W/O [facility] SPEC 01/27/04 Colonoscopy-repeat in - COLONOSCOP W/ OR W/O [facility] SPEC 04/12/16 Colonoscopy - EGD W/O [facility] SPECIMEN W/BX 09/04/05 - EGD W/O OR W/BRUSH/WASH 04/12/16 EGD - LEFT HEART CATH,PERCUTANEOUS 09/08/2015 Cardiac cath, L heart - PAST SURGICAL HISTORY OF 10/12/2015 unsuccessful PCI attempt FAMILY HISTORY Problem Relation Age of Onset - Heart Daughter LONG QT - Heart Daughter LONG QT - Allergies Daughter - Allergies Mother - Alzheimer's Disease Father - Hypertension Father - Coronary Artery Disease Father Social History Substance Use Topics - Smoking status: Former Smoker Years: 30.00 Types: Cigarettes Quit date: 07/08/1995 - Smokeless tobacco: Current User Types: Chew Comment: chewing - Alcohol use 9.0 oz/week 6 Cans of Beer (12oz) per week Comment: Patient states stopped when given pain medications.approx. 09/11/2017 ROS: Gen: Denies fever, chills, weight loss, fatigue Resp: Denies cough, wheezing, shortness of breath, dyspnea CVS: Denies chest pain, palpitations, syncope, cyanosis GI: Denies nausea, vomiting, diarrhea, constipation : as above OBJECTIVE PHYSICAL EXAM: General Appearance/ Constitutional: Well developed, well nourished, and in no apparent distress HEENT: NCAT. PERRLA, Neck supple Neck Thyroid: Not examined Neck Lymph Nodes: Not examined Cardiac: not examined Breast: Not examined Pulmonary Auscultation: not examined Pulmonary Effort: Normal effort, symmetric expansion, breathing RA comfortably Gastrointestinal: Soft, Benign, Non-tender, Non-distended, Costovertebral angle tenderness absent and Suprapubic pain/fullness absent Peripheral Vascular: Radial intact, normal Extremities: Cyanosis absent, Clubbing absent, Edema absent and Jaundice absent Skin: Normal, No lesions or ulcers Neurologic: Normal, Grossly non-focal, Alert and oriented and Affect appropriate Genitourinary: Negative CVA tenderness bilaterally VITALS: BP 163/82 (BP Site: Left Arm, BP Position: Sitting, BP Cuff Size: Regular Adult) Pulse 62 Ht 177.8 cm (5' 10) Wt 83.1 kg (183 lb 3.2 oz) BMI 26.29 kg/m? Temperature Max: @TMAXREFRESH(24)@ INTAKE/OUTPUT: Intake/Output None ALLERGIES: ALLERGIES Allergen Reactions - Environmental [Othe* Itching hayfever,sneezing,watery eyes LABS: BUN (mg/dL) Date Value 12/04/2017 21 11/26/2017 25 08/11/2016 27 08/10/2016 35 08/09/2016 32 Creatinine (mg/dL) Date Value 12/04/2017 1.53 11/26/2017 1.61 08/11/2016 1.35 08/10/2016 1.69 08/09/2016 1.68 PSA (ng/mL) Date Value 02/28/2018 1.15 Glucose, Urine (mg/dL) Date Value 02/28/2018 Negative Bilirubin, Urine (no units) Date Value 02/28/2018 Negative Ketones, Urine (no units) Date Value 02/28/2018 Negative Specific [place], Ur (no units) Date Value 02/28/2018 1.011 Hemoglobin/Blood,Ur ( ) Date Value 02/28/2018 Negative pH, Urine (no units) Date Value 02/28/2018 5.5 Protein, Urine (mg/dL) Date Value 02/28/2018 30 (A) Nitrites (no units) Date Value 02/28/2018 Negative WBC, Urine (/hpf) Date Value 07/30/2016 0.5 Color (no units) Date Value 02/28/2018 Yellow Clarity (no units) Date Value 02/28/2018 Clear DATA: ADDITIONAL DATA REVIEWED: MEDICATIONS: (Not in a hospital admission) Current Outpatient Prescriptions: acetaminophen (TYLENOL) 325 mg tablet Take 2 tablets by mouth every 6 hours as needed for Pain or Fever. gabapentin (NEURONTIN) 300 mg capsule Take 2 capsules by mouth three times daily for 335 days. docusate sodium (COLACE) 100 mg capsule Take 1 capsule by mouth twice daily. senna (SENOKOT) 8.6 mg tab Take 2 tablets by mouth once daily as needed (Constipation). aspirin, enteric coated (ASPIRIN, ENTERIC COATED) 81 mg EC tablet Take 2 tablets by mouth once daily. carvedilol (COREG) 25 mg tablet Take 25 mg by mouth twice daily with meals. insulin glargine (LANTUS U-100 INSULIN) 100 unit/mL injection Inject 22 Units subcutaneously daily at bedtime. [facility]. amLODIPine (NORVASC) 5 mg tablet Take 5 mg by mouth once daily. atorvastatin (LIPITOR) 20 mg tablet Take 1 tablet by mouth daily at bedtime. [facility]. insulin aspart (NOVOLOG FLEXPEN) 100 unit/mL inpn 6 - 12 units as needed with a meal. [facility]. glipiZIDE (GLUCOTROL) 5 mg tablet Take 10 mg by mouth daily before dinner. [facility]. losartan (COZAAR) 100 mg tablet Take one tablet daily No current facility-administered medications for this visit. Assessment AND Plan: 67 yo male w COPD, CABGx4, DMII on insulin, CKD III, [facility], presenting for chronic left flank pain. Likely related to lumbar stenosis, and previously noted claudication. - obtain Renal ultrasound - PSA SIGNATURE: Antwan Haywood MD PATIENT NAME: Sam Vidales DATE: February 28, 2018 TIME: 3:28 PM PAGER/CONTACT #: [email or web address] Collected: 02/28/2018 Status: F Source: [place] 8:45 AM [facility] REPOSITORY TYPE CODE TESTS RESULT OUT OF RANGE REFERENCE UNITS LAB UCOL Yellow Color Yellow LAB [facility] Clear Clarity Clear LAB UGLUC Negative mg/dL Glucose, Urine Negative LAB UBIL Negative Bilirubin, Urine Negative LAB UKET Negative Ketones, Urine Negative LAB USPG 1.005-1.030 Specific [place], Ur 1.011 LAB UHGB Negative Hemoglobin/Blood, Negative Ur LAB UPH 4.5-8.0 pH 5.5 LAB UPROT Negative mg/dL Protein, Abnormal Urine 30 Alert LAB UUROB Normal Urobilinogen Normal LAB UNITR Negative Nitrites Negative LAB ULKEST Negative Leukest Negative LAB UCOM Comments SEE COMMENT Result Comment: Microscopic not warranted LAB UMCOM Urine SEE Jorge Comment COMMENT Result Comment: N/A Performed By: #### UA #### [facility] [address] [place], [place] [address] CNOV Observed: 02/28/2018 Status: COMPLETED Source: [place] 8:45 AM [facility] REPOSITORY Office Visit (UROLMN) AMBROCIOSAM INIGUEZ ([id number]) 1950 M Date Time Provider Department 02/28/18 8:45 AM ANTWAN HAYWOOD (FEL) During your visit today, we recorded the following information about you: Pulse Blood pressure Weight Height 62/minute 163/82 83.1 kg 1.778 m Cris Montelongo 02/28/2018 9:17 AM Signed Complains of back aching for awhile. Prior surgery on back in november, also complains of always tired. Antwan Haywood MD 02/28/2018 3:32 PM Signed UROLOGY HISTORY AND PHYSICAL EXAM SERVICE DATE: 02/28/2018 SERVICE TIME: 9 am REFERRING PROVIDER: SELF PCP: No primary care provider on file. GENDER: SUBJECTIVE CHIEF COMPLAINT: Left flank pain HISTORY OF PRESENT ILLNESS: Mr. Vidales is a 67 yo male w COPD, CABGx4, DMII on insulin, CKD III, [facility], presenting for chronic left flank pain. Hx of lumbar stenosis, L4-5 laminectomy 12/03/17. [facility], unsure if he underwent urology evaluation. PSA many years ago. No hx of hematuria. Flank pain - left sided, present since surgery. Radiates down to left hip / leg. Changes with position. SIGNS: Duration: 2 months Location: Flank (left) Severity: Moderate Quality: pain Context: As above Timing: Intermittently Modifying Factors: Yes - positional Associated Signs AND Symptoms: None PAST MEDICAL HISTORY Diagnosis Date - Acute gastritis without mention of hemorrhage 09/04/05 - Anemia, unspecified - Aortic stenosis, mild 02/09/2016 - Atherosclerosis of [place] coronary artery of [place] heart without angina pectoris 02/09/2016 - Chronic airway obstruction, not elsewhere classified 09/15/2007 - CKD (chronic kidney disease) stage 3, GFR 30-59 ml/min ([facility]) 02/09/2016 - Hyperlipidemia - Hypertension - Hypertrophy of prostate without urinary obstruction and other lower urinary tract symptoms (LUTS) - Personal history of noncompliance with medical treatment, presenting hazards to health - S/P CABG x 4 08/06/2016 - Type 2 diabetes mellitus with stage 3 chronic kidney disease, with long-term current use of insulin ([facility]) - Type II or unspecified type diabetes mellitus without mention of complication, not stated as uncontrolled - Unspecified hemorrhoids without mention of complication Hemorrhoids PAST SURGICAL HISTORY Procedure Laterality Date - CABG X (4) ARTERIAL GRAFTS 08/06/2016 - COLONOSCOP W/ OR W/O [facility] SPEC 01/27/04 Colonoscopy-repeat in - COLONOSCOP W/ OR W/O [facility] SPEC 04/12/16 Colonoscopy - EGD W/O [facility] SPECIMEN W/BX 09/04/05 - EGD W/O OR W/BRUSH/WASH 04/12/16 EGD - LEFT HEART CATH,PERCUTANEOUS 09/08/2015 Cardiac cath, L heart - PAST SURGICAL HISTORY OF 10/12/2015 unsuccessful PCI attempt FAMILY HISTORY Problem Relation Age of Onset - Heart Daughter LONG QT - Heart Daughter LONG QT - Allergies Daughter - Allergies Mother - Alzheimer's Disease Father - Hypertension Father - Coronary Artery Disease Father Social History Substance Use Topics - Smoking status: Former Smoker Years: 30.00 Types: Cigarettes Quit date: 07/08/1995 - Smokeless tobacco: Current User Types: Chew Comment: chewing - Alcohol use 9.0 oz/week 6 Cans of Beer (12oz) per week Comment: Patient states stopped when given pain medications.approx. 09/11/2017 ROS: Gen: Denies fever, chills, weight loss, fatigue Resp: Denies cough, wheezing, shortness of breath, dyspnea CVS: Denies chest pain, palpitations, syncope, cyanosis GI: Denies nausea, vomiting, diarrhea, constipation : as above OBJECTIVE PHYSICAL EXAM: General Appearance/ Constitutional: Well developed, well nourished, and in no apparent distress HEENT: NCAT. PERRLA, Neck supple Neck Thyroid: Not examined Neck Lymph Nodes: Not examined Cardiac: not examined Breast: Not examined Pulmonary Auscultation: not examined Pulmonary Effort: Normal effort, symmetric expansion, breathing RA comfortably Gastrointestinal: Soft, Benign, Non-tender, Non-distended, Costovertebral angle tenderness absent and Suprapubic pain/fullness absent Peripheral Vascular: Radial intact, normal Extremities: Cyanosis absent, Clubbing absent, Edema absent and Jaundice absent Skin: Normal, No lesions or ulcers Neurologic: Normal, Grossly non-focal, Alert and oriented and Affect appropriate Genitourinary: Negative CVA tenderness bilaterally VITALS: BP 163/82 (BP Site: Left Arm, BP Position: Sitting, BP Cuff Size: Regular Adult) Pulse 62 Ht 177.8 cm (5' 10) Wt 83.1 kg (183 lb 3.2 oz) BMI 26.29 kg/m? Temperature Max: @TMAXREFRESH(24)@ INTAKE/OUTPUT: Intake/Output None ALLERGIES: ALLERGIES Allergen Reactions - Environmental [Othe* Itching hayfever,sneezing,watery eyes LABS: BUN (mg/dL) Date Value 12/04/2017 21 11/26/2017 25 08/11/2016 27 08/10/2016 35 08/09/2016 32 Creatinine (mg/dL) Date Value 12/04/2017 1.53 11/26/2017 1.61 08/11/2016 1.35 08/10/2016 1.69 08/09/2016 1.68 PSA (ng/mL) Date Value 02/28/2018 1.15 Glucose, Urine (mg/dL) Date Value 02/28/2018 Negative Bilirubin, Urine (no units) Date Value 02/28/2018 Negative Ketones, Urine (no units) Date Value 02/28/2018 Negative Specific [place], Ur (no units) Date Value 02/28/2018 1.011 Hemoglobin/Blood,Ur ( ) Date Value 02/28/2018 Negative pH, Urine (no units) Date Value 02/28/2018 5.5 Protein, Urine (mg/dL) Date Value 02/28/2018 30 (A) Nitrites (no units) Date Value 02/28/2018 Negative WBC, Urine (/hpf) Date Value 07/30/2016 0.5 Color (no units) Date Value 02/28/2018 Yellow Clarity (no units) Date Value 02/28/2018 Clear DATA: ADDITIONAL DATA REVIEWED: MEDICATIONS: (Not in a hospital admission) Current Outpatient Prescriptions: acetaminophen (TYLENOL) 325 mg tablet Take 2 tablets by mouth every 6 hours as needed for Pain or Fever. gabapentin (NEURONTIN) 300 mg capsule Take 2 capsules by mouth three times daily for 335 days. docusate sodium (COLACE) 100 mg capsule Take 1 capsule by mouth twice daily. senna (SENOKOT) 8.6 mg tab Take 2 tablets by mouth once daily as needed (Constipation). aspirin, enteric coated (ASPIRIN, ENTERIC COATED) 81 mg EC tablet Take 2 tablets by mouth once daily. carvedilol (COREG) 25 mg tablet Take 25 mg by mouth twice daily with meals. insulin glargine (LANTUS U-100 INSULIN) 100 unit/mL injection Inject 22 Units subcutaneously daily at bedtime. [facility]. amLODIPine (NORVASC) 5 mg tablet Take 5 mg by mouth once daily. atorvastatin (LIPITOR) 20 mg tablet Take 1 tablet by mouth daily at bedtime. [facility]. insulin aspart (NOVOLOG FLEXPEN) 100 unit/mL inpn 6 - 12 units as needed with a meal. [facility]. glipiZIDE (GLUCOTROL) 5 mg tablet Take 10 mg by mouth daily before dinner. [facility]. losartan (COZAAR) 100 mg tablet Take one tablet daily No current facility-administered medications for this visit. Assessment AND Plan: 67 yo male w COPD, CABGx4, DMII on insulin, CKD III[facility] presenting for chronic left flank pain. Likely related to lumbar stenosis, and previously noted claudication. - obtain Renal ultrasound - PSA SIGNATURE: Antwan Haywood MD PATIENT NAME: Sam Vidales DATE: February 28, 2018 TIME: 3:28 PM PAGER/CONTACT #: Referring Provider: SELF [[id number]] Allergies As of Date: 02/28/2018 Noted Allergy Reaction environmental [Other] 08/05/2006 9 - Itching Comments: hayfever,sneezing,watery eyes Date Reviewed: 02/28/2018 Reviewed by: Antwan Haywood (Fel) - Fully Assessed Primary Visit Diagnosis:Screening for genitourinary condition [Z13.89] Other Visit Diagnoses:CKD (chronic kidney disease) stage 3, GFR 30-59 ml/min (HCC) [N18.3] BPH without urinary obstruction [N40.0] Order(s):UA CHEMSTRIP ONLY [SQUA] Order #: [id number] FUTURE UA CHEMSTRIP ONLY [SQUA] Order #: [id number]. #:[id number] KIDNEY/BLADDER [[id number]] Order #: [id number] FUTURE PSA FREE [SQPSATF] Order #: [id number] FUTURE Prescriptions as of 02/28/2018 Sig: ACETAMINOPHEN 325 MG TABLET Take 2 tablets by mouth every* GABAPENTIN 300 MG CAPSULE Take 2 capsules by mouth thre* DOCUSATE SODIUM 100 MG CAPSULE Take 1 capsule by mouth twice* SENNOSIDES 8.6 MG TABLET Take 2 tablets by mouth once * ASPIRIN 81 MG TABLET,DELAYED * Take 2 tablets by mouth once * CARVEDILOL 25 MG TABLET Take 25 mg by mouth twice susie* INSULIN GLARGINE (U-100) 100 * Inject 22 Units subcutaneousl* AMLODIPINE 5 MG TABLET Take 5 mg by mouth once daily. ATORVASTATIN 20 MG TABLET Take 1 tablet by mouth daily * INSULIN ASPART U-100 100 UNI* 6 - 12 units as needed with a* GLIPIZIDE 5 MG TABLET Take 10 mg by mouth daily bef* LOSARTAN 100 MG TABLET Take one tablet daily Problem List As Of Date 02/28/2018 Noted Resolved Type 2 diabetes mellitus with stage 3 chronic k* Priority: E More... Other and Unspecified Hyperlipidemia [E78.5] 01/27/2010 BPH without urinary obstruction [N40.0] Unspecified hemorrhoids without mention of comp* 02/09/2016 More... Anemia, unspecified [D64.9] 02/09/2016 Acute gastritis without mention of hemorrhage [*INVALID FOR*02/09/2016 PAIN JOINT, KNEE [M25.569] INVALID FOR*02/09/2016 Labyrinthitis, unspecified [H83.09] INVALID FOR*02/09/2016 Chronic obstructive pulmonary disease with acut*INVALID FOR* Hyperlipidemia [E78.5] INVALID FOR* Hearing loss [H91.90] INVALID FOR* Overweight (BMI 25.0-29.9) [E66.3] INVALID FOR* Undiagnosed cardiac murmurs [R01.1] INVALID FOR*02/09/2016 Coronary artery disease involving [place] sue*INVALID FOR* Priority: F CKD (chronic kidney disease) stage 3, GFR 30-59*INVALID FOR* Aortic stenosis, mild [I35.0] INVALID FOR* Colon cancer screening [Z12.11] INVALID FOR*04/12/2016 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 Lumbar stenosis with neurogenic claudication [M*INVALID FOR*01/23/2018 Priority: B Lumbar spondylosis [M47.816] INVALID FOR* Priority: A Status post lumbar spine operative procedure fo*INVALID FOR* Priority: C Acute postoperative pain [G89.18] INVALID FOR*01/23/2018 Priority: D More... Incidental durotomy [G97.41] INVALID FOR* Priority: H More... Visit Notes: >> Cris Montelongo Vinnie Feb 28, 2018 9:13 AM Status: Signed Complains of back aching for awhile. Prior surgery on back in november, also complains of always tired. Level of Service: NEW PATIENT VISIT LEVEL 3 [[id number]] Follow-up and Disposition History Recorded Encounter Status:Closed by ANTWAN HAYWOOD MD on 02/28/18 CNOV Observed: 02/28/2018 Status: COMPLETED Source: [place] 12:00 AM [facility] REPOSITORY Office Visit (UROLMN) SAM VIDALES ([id number]) 1950 M Date Time Provider Department 02/28/18 ANTWAN HAYWOOD ([facility]LY [facility]) UROLMN During your visit today, we recorded the following information about you: Antwan Haywood MD 02/28/2018 3:36 PM Signed Mr. Sam Vidales participated in the following study: Using Decision Analysis to Enhance Decision-Making Regarding Prostate Cancer Screening, IRB Protocol - CASE 7817, [facility] [phone] Prior to study entry, he was given time to review the protocol consent. All questions were answered, both he and the study co-accident investigator - Antwan Haywood MD, then signed the consent. A copy of the consent was given to the patient for his personal records. While participating in the study, we performed a thorough review of the risks and benefits of PSA screening, based upon previously published literature and population-based statistics (Please see [facility] - PSA Screening Talking Points for Physicians). Using Mr. Sam Vidales's demographic information, and prior PSA screening, we calculated his individual risks using the PSA Screening Patient Decision Aide. The 15-year predicted probabilities of Prostate Cancer Diagnosis (PCDx), Prostate Cancer Mortality (PCM), and All-Cause Mortality (ACM), were as follows: With screening Without screening PCDx - 11% 9% PCM - 0.3% 0.4% ACM - 65.9% 66.9% After reviewing the information, Mr. Sam Vidales decided that he will: Undergo screening He was informed that he will receive a follow up phone call in approximately one month to assess his continuing opinion regarding this decision. Antwan Haywood MD Urology-Oncology Fellow c [phone] p [phone] Allergies As of Date: 02/28/2018 Noted Allergy Reaction environmental [Other] 08/05/2006 9 - Itching Comments: hayfever,sneezing,watery eyes Date Reviewed: 02/28/2018 Reviewed by: Antwan Haywood (Fel) - Fully Assessed Primary Visit Diagnosis:Prostate cancer screening encounter, options and risks discussed [Z12.5] Prescriptions as of 02/28/2018 Sig: ACETAMINOPHEN 325 MG TABLET Take 2 tablets by mouth every* GABAPENTIN 300 MG CAPSULE Take 2 capsules by mouth thre* DOCUSATE SODIUM 100 MG CAPSULE Take 1 capsule by mouth twice* SENNOSIDES 8.6 MG TABLET Take 2 tablets by mouth once * ASPIRIN 81 MG TABLET,DELAYED * Take 2 tablets by mouth once * CARVEDILOL 25 MG TABLET Take 25 mg by mouth twice susie* INSULIN GLARGINE (U-100) 100 * Inject 22 Units subcutaneousl* AMLODIPINE 5 MG TABLET Take 5 mg by mouth once daily. ATORVASTATIN 20 MG TABLET Take 1 tablet by mouth daily * INSULIN ASPART U-100 100 UNI* 6 - 12 units as needed with a* GLIPIZIDE 5 MG TABLET Take 10 mg by mouth daily bef* LOSARTAN 100 MG TABLET Take one tablet daily Problem List As Of Date 02/28/2018 Noted Resolved Type 2 diabetes mellitus with stage 3 chronic k* Priority: E More... Other and Unspecified Hyperlipidemia [E78.5] 01/27/2010 BPH without urinary obstruction [N40.0] Unspecified hemorrhoids without mention of comp* 02/09/2016 More... Anemia, unspecified [D64.9] 02/09/2016 Acute gastritis without mention of hemorrhage [*INVALID FOR*02/09/2016 PAIN JOINT, KNEE [M25.569] INVALID FOR*02/09/2016 Labyrinthitis, unspecified [H83.09] INVALID FOR*02/09/2016 Chronic obstructive pulmonary disease with acut*INVALID FOR* Hyperlipidemia [E78.5] INVALID FOR* Hearing loss [H91.90] INVALID FOR* Overweight (BMI 25.0-29.9) [E66.3] INVALID FOR* Undiagnosed cardiac murmurs [R01.1] INVALID FOR*02/09/2016 Coronary artery disease involving [place] sue*INVALID FOR* Priority: F CKD (chronic kidney disease) stage 3, GFR 30-59*INVALID FOR* Aortic stenosis, mild [I35.0] INVALID FOR* Colon cancer screening [Z12.11] INVALID FOR*04/12/2016 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 Lumbar stenosis with neurogenic claudication [M*INVALID FOR*01/23/2018 Priority: B Lumbar spondylosis [M47.816] INVALID FOR* Priority: A Status post lumbar spine operative procedure fo*INVALID FOR* Priority: C Acute postoperative pain [G89.18] INVALID FOR*01/23/2018 Priority: D More... Incidental durotomy [G97.41] INVALID FOR* Priority: H More... Encounter Status:Closed by ANTWAN HAYWOOD MD on 02/28/18 INITAL EVALUATION (1) Observed: 01/29/2018 Status: F Source: DEVAN - PT 7:17 AM [facility] REPOSITORY [facility] Physical [facility] [address] [place] [address] Fax REHABILITATION SERVICES INITIAL EVALUATION MR#: [id number] Acct: [id number] Name: SAM VIDALES Rep #: [id number] : 1950 67 From: Vinicio Leyva DPT, OCS, CSCS Referring DrVincenzo: OUT OF TOWN DOCTOR Status: REG RCR Insurance: MEDICARE PART A B AARP Patient's Visit Information SAM VIDALES is a 67 year old M referred to Physical Therapy by Out of Town Doctor with a diagnosis of s/p laminectomy. Date of Evaluation: 01/28/18 Physical Therapist: Vinicio Leyva DPT, OC - Visit Plan Frequency: 2x /Week Duration: 2 Months Plan: 2x/week for 6-8 weeks for. 1. Ensure LB ROM improving and HEP. 2. quad/HS and piri and hip flexor and gastroc stretches taught for HEP. 3. LE adn core strength, emphasize L PF strength. 4. Functional progression back to golf swing. Pt is [employer] member and emphasis put on progression to I. - Subjective Subjective: Aug 05 2016 had open heart surgery and pulled vein from L LE. Rowing machine in cardiac rehab started back problem. [facility] did surgery 12/03 to take spur off spine. This was due to shooting pain down legs which was gone immediately after surgery. Was in pain management prior with multiple injections. L leg is very weak and it was very painful prior to surgery. Can't go up on L toes due to weakness. No exercises yet, just got cleared last week as he has been walking only for the last couple months. Was walking 3-6 miles prior to this problem, going about a mile now. Sleep is OK. Pain is not present except with bending when he gets it on the left side trasniently. Not emplyed. Likes to golf and wants to get back to it, has swung wedge shots last week. Basic ADLs are Ok, steps to basement are OK, notices weakness in L LE. Walk is not normal as it is hard to push off with L LE. - Pain L LBP Pain Intensity (Out of 10): 0 Pain Intensity Range: 0, 4 - Objective Walks slowly but I, stiff in spine, transfers I, Steps are reciprocal with a rail, L heel plops to step descending. LB AROM ext max limited, SB mod limited, flexion mod limited especially lower L/S. HS, quads and gastroc flex is poor. - Slump and SLR. Strength is 4/5 throughout LE except L plantar flexionw hcih is 3/5 adn unable to elevate body weight. reflexes 2/3 in patella and achilles B. Sensation WNL to gross light touch. Walking does show some poor push off on L. - Goals Goal 1:: Full L/ S ROM without pain Goal Time Frame: 4-6 Weeks Goal 2:: I approp flex adn strength program for core and LE Goal Time Frame: 6-8 Weeks Goal 3:: plan to resume golfing Goal Time Frame: 6-8 Weeks Goal 4:: Pt report 90% back to normal and guillermo ctivities including walking to feel good. Goal Time Frame: 6-8 Weeks - Rehabilitation Potential Physical Therapy Diagnosis: s/p laminectomy Rehabilitation Potential: Fair - Anticipated Interventions Patient/Client Instruction: Educate patient on: Condition, Plan of Care For the Purpose of:: To decrease pain, To increase ROM, To improve ability of physical actions for home/community/work/leisure, To improve gait and locomotor functions Therapeutic Exercise to Include: Strength training, Postural training, Flexibilty training, Gait and locomotor training, Passive ROM, Active ROM, Lizandro Exercises For the Purpose of:: To decrease pain, To increase ROM, To improve ability of physical actions for home/community/work/leisure, To improve gait and locomotor functions Manual Therapy Techniques to Include: Scar massage, Passive ROM For the Purpose of:: To increase ROM Cryotherapy (ice pack, ice massage): Yes Thermo therapy (hot pack): Yes For the Purpose of:: To decrease pain Thank you for the opportunity to evaluate your patient. For Medicare and Medicare HMO plans, please review the plan of care and approve it. It will need to be FAXED BACK to us at [phone] for Medicare purposes. Please let me know if there are questions or concerns regarding this plan of care. Physician Signature: Date: <Electronically signed by Vinicio Leyva DPT, OCS, CSCS> 01/29/18 0717 CC: [facility]; OUT OF TOWN DOCTOR EBG Signed For Medicare only, by signing this I certify the plan of care. Physicians Signature Date PROGRESS Observed: 01/23/2018 Status: COMPLETED Source: [place] 3:53 PM [facility] [place] REPOSITORY HNO ID: [id number] Author: Jess Leonardo Service: (none) Author Type: Physician Type: Progress Notes Filed: 01/23/2018 4:25 PM Note Text: SPINE SURGERY FOLLOW UP SERVICE DATE: 01/23/2018 SURGERY DATE: 12/03/17 SURGERY: L4/5 laminectomy PRE-OP SX: right leg pain consistent with neurogenic claudication, left foot weakness Sam Vidales is seen for 8 week post operative follow up. Overall doing well - feels surgery was sucessfuly Pre-op RLE pain is resolve. Left foot weakness is unchanged. Back feels good. Incision with no concerns. LLE feels tired, since the back surgery. Wondering about PT. Percocet: 1 HS PRN Robaxin: 1 HS PRN PAIN EVALUATION No data found. PHYSICAL EXAM: Ht 175.3 cm (5' 9) Wt 84.5 kg (186 lb 4 oz) BMI 27.50 kg/m? GENERAL APPEARANCE: Well nourished, well developed, and no apparent distress. NEURO PSYCH: Patient oriented to person, place, and time. Mood pleasant. Benign affect. MUSCULOSKELETAL VISUAL INSPECTION CERVICAL: WNL THORACIC: WNL LUMBAR: WNL MOTOR: Ankle Plantar Flexors Left: 5-, otherwise 5/5 in BUE and BLE. Cannot do single leg calf raises on the left GAIT: Normal. WOUND: Appropriate postop posterior lumbar spine incision that is well healed. No erythema, or fluctuance is appreciated. There is no drainage from the incision. No warmth or tenderness on palpation. DATA REVIEW [facility] records reviewed ASSESSMENT/PLAN IMPRESSION: (Z98.890) S/P laminectomy (primary encounter diagnosis) 67-year-old male 8 weeks status post L4 5 decompression for preoperative right leg pain. Overall doing well with resolve of pre-op leg pain. 1. OK to take NSAIDs or tylenol PRN for pain 2. No further BLT restrictions, OK to increase activity as tolerated. 3. Consult PT 4. Follow up: PRN Paresh Aditi, SCRIBING MACHINE OPERATOR.SUBSTITUTE SCHOOL NURSE I reviewed the information obtained and documented by the nurse practitioner. I examined the patient and evaluated all available films and pertinent documents. We discussed the case and I agree with the plans as outlined in this note. SIGNATURE: Jess Leonardo MD PATIENT NAME: Sam Vidales DATE: January 23, 2018 TIME: 3:53 PM PAGER: [email or web address] Observed: 01/23/2018 Status: COMPLETED Source: [place] 3:20 PM [facility] REPOSITORY Office Visit (SPNSTW) SAM VIDALES ([id number]) 1950 M Date Time Provider Department 01/23/18 3:20 PM JESS LEONARDO SPNSTW During your visit today, we recorded the following information about you: Weight Height 84.5 kg 1.753 m Jess Leonardo MD 01/23/2018 4:25 PM Signed SPINE SURGERY FOLLOW UP SERVICE DATE: 01/23/2018 SURGERY DATE: 12/03/17 SURGERY: L4/5 laminectomy PRE-OP SX: right leg pain consistent with neurogenic claudication, left foot weakness Sam Vidales is seen for 8 week post operative follow up. Overall doing well - feels surgery was sucessfuly Pre-op RLE pain is resolve. Left foot weakness is unchanged. Back feels good. Incision with no concerns. LLE feels tired, since the back surgery. Wondering about PT. Percocet: 1 HS PRN Robaxin: 1 HS PRN PAIN EVALUATION No data found. PHYSICAL EXAM: Ht 175.3 cm (5' 9) Wt 84.5 kg (186 lb 4 oz) BMI 27.50 kg/m? GENERAL APPEARANCE: Well nourished, well developed, and no apparent distress. NEURO PSYCH: Patient oriented to person, place, and time. Mood pleasant. Benign affect. MUSCULOSKELETAL VISUAL INSPECTION CERVICAL: WNL THORACIC: WNL LUMBAR: WNL MOTOR: Ankle Plantar Flexors Left: 5-, otherwise 5/5 in BUE and BLE. Cannot do single leg calf raises on the left GAIT: Normal. WOUND: Appropriate postop posterior lumbar spine incision that is well healed. No erythema, or fluctuance is appreciated. There is no drainage from the incision. No warmth or tenderness on palpation. DATA REVIEW [facility] records reviewed ASSESSMENT/PLAN IMPRESSION: (Z98.890) S/P laminectomy (primary encounter diagnosis) 67-year-old male 8 weeks status post L4 5 decompression for preoperative right leg pain. Overall doing well with resolve of pre-op leg pain. 1. OK to take NSAIDs or tylenol PRN for pain 2. No further BLT restrictions, OK to increase activity as tolerated. 3. Consult PT 4. Follow up: PRN Paresh Pennington APRN.[employer] NURSE I reviewed the information obtained and documented by the nurse practitioner. I examined the patient and evaluated all available films and pertinent documents. We discussed the case and I agree with the plans as outlined in this note. SIGNATURE: Jess Leonardo MD PATIENT NAME: Sam Vidales DATE: January 23, 2018 TIME: 3:53 PM PAGER: Referring Provider: JESS LEONARDO [[id number]] Allergies As of Date: 01/23/2018 Noted Allergy Reaction environmental [Other] 08/05/2006 9 - Itching Comments: hayfever,sneezing,watery eyes Date Reviewed: 01/23/2018 Reviewed by: Rossi Kelley Ma - Fully Assessed Reason for Visit: Follow Up [171] Surgical Followup [104] Primary Visit Diagnosis:S/P laminectomy [Z98.890] Other Visit Diagnosis:Lumbar spondylosis [M47.816] Order(s):CONSULT TO PHYSICAL THERAPY [9032] Order #: [id number]: 1 Prescriptions as of 01/23/2018 Sig: METHOCARBAMOL 750 MG TABLET Take 1 tablet by mouth twice * OXYCODONE-ACETAMINOPHEN 5 MG-* Take 1 tablet by mouth twice * ACETAMINOPHEN 325 MG TABLET Take 2 tablets by mouth every* GABAPENTIN 300 MG CAPSULE Take 2 capsules by mouth thre* DOCUSATE SODIUM 100 MG CAPSULE Take 1 capsule by mouth twice* SENNOSIDES 8.6 MG TABLET Take 2 tablets by mouth once * ASPIRIN 81 MG TABLET,DELAYED * Take 2 tablets by mouth once * CARVEDILOL 25 MG TABLET Take 25 mg by mouth twice susie* INSULIN GLARGINE (U-100) 100 * Inject 22 Units subcutaneousl* AMLODIPINE 5 MG TABLET Take 5 mg by mouth once daily. ATORVASTATIN 20 MG TABLET Take 1 tablet by mouth daily * INSULIN ASPART U-100 100 UNI* 6 - 12 units as needed with a* GLIPIZIDE 5 MG TABLET Take 10 mg by mouth daily bef* LOSARTAN 100 MG TABLET Take one tablet daily Problem List As Of Date 01/23/2018 Noted Resolved Type 2 diabetes mellitus with stage 3 chronic k* Priority: E More... Other and Unspecified Hyperlipidemia [E78.5] 01/27/2010 BPH without urinary obstruction [N40.0] Unspecified hemorrhoids without mention of comp* 02/09/2016 More... Anemia, unspecified [D64.9] 02/09/2016 Acute gastritis without mention of hemorrhage [*INVALID FOR*02/09/2016 PAIN JOINT, KNEE [M25.569] INVALID FOR*02/09/2016 Labyrinthitis, unspecified [H83.09] INVALID FOR*02/09/2016 Chronic obstructive pulmonary disease with acut*INVALID FOR* Hyperlipidemia [E78.5] INVALID FOR* Hearing loss [H91.90] INVALID FOR* Overweight (BMI 25.0-29.9) [E66.3] INVALID FOR* Undiagnosed cardiac murmurs [R01.1] INVALID FOR*02/09/2016 Coronary artery disease involving [place] sue*INVALID FOR* Priority: F CKD (chronic kidney disease) stage 3, GFR 30-59*INVALID FOR* Aortic stenosis, mild [I35.0] INVALID FOR* Colon cancer screening [Z12.11] INVALID FOR*04/12/2016 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 Lumbar stenosis with neurogenic claudication [M*INVALID FOR*01/23/2018 Priority: B Lumbar spondylosis [M47.816] INVALID FOR* Priority: A Status post lumbar spine operative procedure fo*INVALID FOR* Priority: C Acute postoperative pain [G89.18] INVALID FOR*01/23/2018 Priority: D More... Incidental durotomy [G97.41] INVALID FOR* Priority: H More... Encounter Status:Closed by JESS LEONARDO MD on 01/23/18 CNPN Observed: 01/17/2018 Status: COMPLETED Source: [place] 12:00 AM [facility] REPOSITORY Telephone (SPNSMN) SAM VIDALES ([id number]) 1950 M Date Time Provider Department 01/17/18 JESS LEONARDO SPNSMN During your visit today, we recorded the following information about you: Tucker Cortez RN 01/17/2018 2:42 PM Signed Called to talk to patient about rescheduling post op appt with Dr. Leonardo. Discussed that Dr. Leonardo could see him in [place] on 01/23 at 3:40 PM. Patient accepts appointment. Schedulers notified. Tahira Gold Psr 01/21/2018 9:25 AM Signed Pt has been scheduled Tahira Gold Psr Allergies As of Date: 01/17/2018 Noted Allergy Reaction environmental [Other] 08/05/2006 9 - Itching Comments: hayfever,sneezing,watery eyes Date Reviewed: 12/19/2017 Reviewed by: Caren Paula LPN - Fully Assessed Reason for Visit: Appointment Rescheduled [1024] Prescriptions as of 01/17/2018 Sig: METHOCARBAMOL 750 MG TABLET Take 1 tablet by mouth twice * OXYCODONE-ACETAMINOPHEN 5 MG-* Take 1 tablet by mouth twice * ACETAMINOPHEN 325 MG TABLET Take 2 tablets by mouth every* GABAPENTIN 300 MG CAPSULE Take 2 capsules by mouth thre* DOCUSATE SODIUM 100 MG CAPSULE Take 1 capsule by mouth twice* SENNOSIDES 8.6 MG TABLET Take 2 tablets by mouth once * ASPIRIN 81 MG TABLET,DELAYED * Take 2 tablets by mouth once * CARVEDILOL 25 MG TABLET Take 25 mg by mouth twice susie* INSULIN GLARGINE (U-100) 100 * Inject 22 Units subcutaneousl* AMLODIPINE 5 MG TABLET Take 5 mg by mouth once daily. ATORVASTATIN 20 MG TABLET Take 1 tablet by mouth daily * INSULIN ASPART U-100 100 UNI* 6 - 12 units as needed with a* GLIPIZIDE 5 MG TABLET Take 10 mg by mouth daily bef* LOSARTAN 100 MG TABLET Take one tablet daily Problem List As Of Date 01/17/2018 Noted Resolved Type 2 diabetes mellitus with stage 3 chronic k* Priority: E More... Other and Unspecified Hyperlipidemia [E78.5] 01/27/2010 BPH without urinary obstruction [N40.0] Unspecified hemorrhoids without mention of comp* 02/09/2016 More... Anemia, unspecified [D64.9] 02/09/2016 Acute gastritis without mention of hemorrhage [*INVALID FOR*02/09/2016 PAIN JOINT, KNEE [M25.569] INVALID FOR*02/09/2016 Labyrinthitis, unspecified [H83.09] INVALID FOR*02/09/2016 Chronic obstructive pulmonary disease with acut*INVALID FOR* Hyperlipidemia [E78.5] INVALID FOR* Hearing loss [H91.90] INVALID FOR* Overweight (BMI 25.0-29.9) [E66.3] INVALID FOR* Undiagnosed cardiac murmurs [R01.1] INVALID FOR*02/09/2016 Coronary artery disease involving [place] sue*INVALID FOR* Priority: F CKD (chronic kidney disease) stage 3, GFR 30-59*INVALID FOR* Aortic stenosis, mild [I35.0] INVALID FOR* Colon cancer screening [Z12.11] INVALID FOR*04/12/2016 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 Lumbar stenosis with neurogenic claudication [M*INVALID FOR* Priority: B Lumbar spondylosis [M47.816] INVALID FOR* Priority: A Status post lumbar spine operative procedure fo*INVALID FOR* Priority: C Acute postoperative pain [G89.18] INVALID FOR* Priority: D More... Incidental durotomy [G97.41] INVALID FOR* Priority: H More... Encounter Status:Closed by TUCKER CORTEZ RN on 01/17/18 GERSON Observed: 12/26/2017 Status: COMPLETED Source: [place] 12:00 AM [facility] REPOSITORY Telephone (NIQ) SAM VIDALES ([id number]) 1950 M Date Time Provider Department 12/26/17 JESS LEONARDO During your visit today, we recorded the following information about you: Jana Brink [facility] [place]/26/2017 1:10 PM Signed oxyCODONE-acetaminophen (PERCOCET) 5-325 mg tablet 56 tablet 0 12/04/2017 12/11/2017 Sig: Take 1-2 tablets by mouth every 6 hours as needed (Moderate to severe postop pain) for up to 7 days. Class: Print RX Notes to Pharmacy: Maximum acetaminophen dose in all forms combined = 3,250mg/24 hours Route: ORAL Patient takes 3 a day. He is also requesting a refill on his methocarbamol (ROBAXIN) 750 mg tablet 30 tablet 0 12/04/2017 Sig: Take 1 tablet by mouth every 8 hours as needed (Muscle spasms). [facility] [phone] Paresh Pennington APRN.CNP 12/26/2017 1:34 PM Signed Reviewed EMR. Patient's request for medication is as follows: Signed Prescriptions Disp Refills methocarbamol (ROBAXIN) 750 mg tablet 60 tablet 0 Sig: Take 1 tablet by mouth every 8 hours as needed (Muscle spasms). VY: No Authorizing Provider: PARESH PENNINGTON (EMILIE) Sent electronically to preferred pharmacy. Will write for refill of percocet tomorrow, when back to [facility] for the office to mail. KEVIN Mccoy RN 12/26/2017 3:06 PM Signed Left VM on identified VM informing patient that robaxin prescription had been sent to pharmacy and that Paresh would complete pain prescription once she returned to the office upon tomorrow and place in the mail. Paresh Pennington APRN.CNP 12/27/2017 10:32 AM Signed Patient's request for medication is as follows: Signed Prescriptions Disp Refills oxyCODONE-acetaminophen (PERCOCET) 5-325 mg tablet 21 tablet 0 Sig: Take 1 tablet by mouth every 8 hours as needed (Moderate to severe postop pain) for up to 7 days. CHICHI Class: C-II VY: No Authorizing Provider: PARESH PENNINGTON (EMILIE) Rx approved, printed, signed AND give to the coroner/medical examiner to coordinate patient's receipt. Paresh Pennington APRN.EMILIE Pennington APRN.CNP 12/27/2017 10:32 AM Signed Addended by: EMILIE PENNINGTON on: 12/27/2017 10:32 AM Modules accepted: Orders Katelyn Newman RN 12/27/2017 11:34 AM Signed Called to the pt to update him that his script has been mailed. Allergies As of Date: 12/26/2017 Noted Allergy Reaction environmental [Other] 08/05/2006 9 - Itching Comments: hayfever,sneezing,watery eyes Date Reviewed: 12/19/2017 Reviewed by: Caren Paula LPN - Fully Assessed Reason for Visit: Refill Request [94] Visit Diagnoses:Acute postoperative pain [G89.18] Lumbar spondylosis [M47.816] Order(s):methocarbamol (ROBAXIN) 750 mg tabletTake 1 tablet by mouth every 8 hours as needed (Muscle spasms).Disp: 60 tabletRfl: 0 oxyCODONE-acetaminophen (PERCOCET) 5-325 mg tabletTake 1 tablet by mouth every 8 hours as needed (Moderate to severe postop pain) for up to 7 days.Disp: 21 tabletRfl: 0 Prescriptions as of 12/26/2017 Sig: OXYCODONE-ACETAMINOPHEN 5 MG-* Take 1 tablet by mouth every * METHOCARBAMOL 750 MG TABLET Take 1 tablet by mouth every * ACETAMINOPHEN 325 MG TABLET Take 2 tablets by mouth every* GABAPENTIN 300 MG CAPSULE Take 2 capsules by mouth thre* DOCUSATE SODIUM 100 MG CAPSULE Take 1 capsule by mouth twice* SENNOSIDES 8.6 MG TABLET Take 2 tablets by mouth once * ASPIRIN 81 MG TABLET,DELAYED * Take 2 tablets by mouth once * CARVEDILOL 25 MG TABLET Take 25 mg by mouth twice susie* INSULIN GLARGINE (U-100) 100 * Inject 22 Units subcutaneousl* AMLODIPINE 5 MG TABLET Take 5 mg by mouth once daily. ATORVASTATIN 20 MG TABLET Take 1 tablet by mouth daily * INSULIN ASPART U-100 100 UNI* 6 - 12 units as needed with a* GLIPIZIDE 5 MG TABLET Take 10 mg by mouth daily bef* LOSARTAN 100 MG TABLET Take one tablet daily Problem List As Of Date 12/26/2017 Noted Resolved Type 2 diabetes mellitus with stage 3 chronic k* Priority: E More... Other and Unspecified Hyperlipidemia [E78.5] 01/27/2010 BPH without urinary obstruction [N40.0] Unspecified hemorrhoids without mention of comp* 02/09/2016 More... Anemia, unspecified [D64.9] 02/09/2016 Acute gastritis without mention of hemorrhage [*INVALID FOR*02/09/2016 PAIN JOINT, KNEE [M25.569] INVALID FOR*02/09/2016 Labyrinthitis, unspecified [H83.09] INVALID FOR*02/09/2016 Chronic obstructive pulmonary disease with acut*INVALID FOR* Hyperlipidemia [E78.5] INVALID FOR* Hearing loss [H91.90] INVALID FOR* Overweight (BMI 25.0-29.9) [E66.3] INVALID FOR* Undiagnosed cardiac murmurs [R01.1] INVALID FOR*02/09/2016 Coronary artery disease involving [place] sue*INVALID FOR* Priority: F CKD (chronic kidney disease) stage 3, GFR 30-59*INVALID FOR* Aortic stenosis, mild [I35.0] INVALID FOR* Colon cancer screening [Z12.11] INVALID FOR*04/12/2016 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 Lumbar stenosis with neurogenic claudication [M*INVALID FOR* Priority: B Lumbar spondylosis [M47.816] INVALID FOR* Priority: A Status post lumbar spine operative procedure fo*INVALID FOR* Priority: C Acute postoperative pain [G89.18] INVALID FOR* Priority: D More... Incidental durotomy [G97.41] INVALID FOR* Priority: H More... Prescriptions ordered this encounter Disp Refills Start End METHOCARBAMOL 750 MG TABLET 60 t* 0 12/26/2017 Route: ORAL Sig: Take 1 tablet by mouth every 8 hours as needed (Muscle spasms). OXYCODONE-ACETAMINOPHEN 5 MG-325 MG * 21 t* 0 12/27/2017 01/03/2018 Class: Print RX Route: ORAL Sig: Take 1 tablet by mouth every 8 hours as needed (Moderate to severe postop pain) for up to 7 days. Medications Discontinued During This Encounter methocarbamol (ROBAXIN) 750 mg tablet 30 t* 0 12/04/2017 12/26/2017 Cmt: Bedside delivery Route: ORAL Sig: Take 1 tablet by mouth every 8 hours as needed (Muscle spasms). Disc: Reason for discontinue is not on file. oxyCODONE-acetaminophen (PERCOCET) 5* 56 t* 0 12/04/2017 12/27/2017 Class: Print RX Cmt: Maximum acetaminophen dose in all forms combined = 3,250mg/24 hours Route: ORAL Sig: Take 1-2 tablets by mouth every 6 hours as needed (Moderate to severe postop pain) for up to 7 days. Disc: Reason for discontinue is not on file. Encounter Status:Closed by TUCKER CORTEZ RN on 12/26/17 PROGRESS Observed: 12/19/2017 Status: COMPLETED Source: [place] 1:02 PM [facility] REPOSITORY HNO ID: [id number] Author: Param Rivers Service: (none) Author Type: Physician Type: Progress Notes Filed: 12/19/2017 1:09 PM Note Text: This note was created using [employer]. Subjective Patient presents with: Suture Removal HPI: Sam Vidales is a 67 year old male was here for above. He had lumbar laminectomy at [facility] December 03, and was scheduled for suture removal here for convenience. He felt well and indicated he had minimal discomfort. He was ambulating freely. Review of Systems Constitutional: Negative. Objective BP 137/80 (BP Site: Left Arm, BP Position: Sitting, BP Cuff Size: Regular Adult) Pulse 66 Temp 37.1 ?C (98.8 ?F) (Left Tympanic) Resp 16 Wt 82.1 kg (181 lb) BMI 25.97 kg/m? Physical Exam Constitutional: No distress. Neurological: Coordination normal. Skin: Lumbar laminectomy site clean, dry, minimal erythema, no tenderness, no fluid collection, no drainage. Wound healing well. Assessment and Plan 1. Encounter for removal of sutures - ICD9: V58.32, ICD10: Z48.02 Continuous running suture was removed in its entirety. No dehiscence, bleeding, or discharge noted. We discussed PCP situation. He had no need to see me as he sees his [facility] providers and his specialists. He agreed to change designation to no PCP. He can always come here for urgent needs like today. Param Rivers MD CNOV Observed: 12/19/2017 Status: COMPLETED Source: [place] 11:40 AM [facility] REPOSITORY Office Visit (INTMWS) SAM VIDALES ([id number]) 1950 M Date Time Provider Department 12/19/17 11:40 AM PARAM RIVERS INTMWS During your visit today, we recorded the following information about you: Temperature Pulse Respiration Blood pressure 98.8 degrees 66/minute 16/minute 137/80 Weight 82.1 kg Param Rivers MD 12/19/2017 1:09 PM Signed This note was created using [employer]. Subjective Patient presents with: Suture Removal HPI: Sam Vidales is a 67 year old male was here for above. He had lumbar laminectomy at [facility] December 03, and was scheduled for suture removal here for convenience. He felt well and indicated he had minimal discomfort. He was ambulating freely. Review of Systems Constitutional: Negative. Objective BP 137/80 (BP Site: Left Arm, BP Position: Sitting, BP Cuff Size: Regular Adult) Pulse 66 Temp 37.1 ?C (98.8 ?F) (Left Tympanic) Resp 16 Wt 82.1 kg (181 lb) BMI 25.97 kg/m? Physical Exam Constitutional: No distress. Neurological: Coordination normal. Skin: Lumbar laminectomy site clean, dry, minimal erythema, no tenderness, no fluid collection, no drainage. Wound healing well. Assessment and Plan 1. Encounter for removal of sutures - ICD9: V58.32, ICD10: Z48.02 Continuous running suture was removed in its entirety. No dehiscence, bleeding, or discharge noted. We discussed PCP situation. He had no need to see me as he sees his [facility] providers and his specialists. He agreed to change designation to no PCP. He can always come here for urgent needs like today. Param Rivers MD Referring Provider: SELF [200] Allergies As of Date: 12/19/2017 Noted Allergy Reaction environmental [Other] 08/05/2006 9 - Itching Comments: hayfever,sneezing,watery eyes Date Reviewed: 12/19/2017 Reviewed by: Caren Paula LPN - Fully Assessed Reason for Visit: Suture Removal [105] Primary Visit Diagnosis:Encounter for removal of sutures [Z48.02] Prescriptions as of 12/19/2017 Sig: ACETAMINOPHEN 325 MG TABLET Take 2 tablets by mouth every* GABAPENTIN 300 MG CAPSULE Take 2 capsules by mouth thre* DOCUSATE SODIUM 100 MG CAPSULE Take 1 capsule by mouth twice* SENNOSIDES 8.6 MG TABLET Take 2 tablets by mouth once * ASPIRIN 81 MG TABLET,DELAYED * Take 2 tablets by mouth once * METHOCARBAMOL 750 MG TABLET Take 1 tablet by mouth every * CARVEDILOL 25 MG TABLET Take 25 mg by mouth twice susie* INSULIN GLARGINE (U-100) 100 * Inject 22 Units subcutaneousl* AMLODIPINE 5 MG TABLET Take 5 mg by mouth once daily. ATORVASTATIN 20 MG TABLET Take 1 tablet by mouth daily * INSULIN ASPART U-100 100 UNI* 6 - 12 units as needed with a* GLIPIZIDE 5 MG TABLET Take 10 mg by mouth daily bef* LOSARTAN 100 MG TABLET Take one tablet daily Problem List As Of Date 12/19/2017 Noted Resolved Type 2 diabetes mellitus with stage 3 chronic k* Priority: E More... Other and Unspecified Hyperlipidemia [E78.5] 01/27/2010 BPH without urinary obstruction [N40.0] Unspecified hemorrhoids without mention of comp* 02/09/2016 More... Anemia, unspecified [D64.9] 02/09/2016 Acute gastritis without mention of hemorrhage [*INVALID FOR*02/09/2016 PAIN JOINT, KNEE [M25.569] INVALID FOR*02/09/2016 Labyrinthitis, unspecified [H83.09] INVALID FOR*02/09/2016 Chronic obstructive pulmonary disease with acut*INVALID FOR* Hyperlipidemia [E78.5] INVALID FOR* Hearing loss [H91.90] INVALID FOR* Overweight (BMI 25.0-29.9) [E66.3] INVALID FOR* Undiagnosed cardiac murmurs [R01.1] INVALID FOR*02/09/2016 Coronary artery disease involving [place] sue*INVALID FOR* Priority: F CKD (chronic kidney disease) stage 3, GFR 30-59*INVALID FOR* Aortic stenosis, mild [I35.0] INVALID FOR* Colon cancer screening [Z12.11] INVALID FOR*04/12/2016 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 Lumbar stenosis with neurogenic claudication [M*INVALID FOR* Priority: B Lumbar spondylosis [M47.816] INVALID FOR* Priority: A Status post lumbar spine operative procedure fo*INVALID FOR* Priority: C Acute postoperative pain [G89.18] INVALID FOR* Priority: D More... Incidental durotomy [G97.41] INVALID FOR* Priority: H More... Encounter Status:Closed by PARAM RIVERS MD on 12/19/17 PLAN OF CARE Observed: 12/04/2017 Status: COMPLETED Source: [place] 1:47 PM [facility] REPOSITORY HNO ID: [id number] Author: Tiffany Stewart (Capability Lead) Service: (none) Author Type: (none) Type: Plan of Care Filed: 12/04/2017 1:49 PM Note Text: PHARMACY BEDSIDE DELIVERY SERVICE Patient Name: Sam Vidales The marked outpatient medications were Filled at: [facility] and delivered to the patient's bedside to PATIENT Medication List START taking these medications acetaminophen 325 mg tablet Commonly known as: TYLENOL Take 2 tablets by mouth every 6 hours as needed for Pain or Fever. docusate sodium 100 mg capsule Commonly known as: COLACE Take 1 capsule by mouth twice daily. X methocarbamol 750 mg tablet Commonly known as: ROBAXIN Take 1 tablet by mouth every 8 hours as needed (Muscle spasms). X oxyCODONE-acetaminophen 5-325 mg tablet Commonly known as: PERCOCET Take 1-2 tablets by mouth every 6 hours as needed (Moderate to severe postop pain) for up to 7 days. X senna 8.6 mg Tab Commonly known as: SENOKOT Take 2 tablets by mouth once daily as needed (Constipation). X CHANGE how you take these medications gabapentin 300 mg capsule Commonly known as: NEURONTIN Take 2 capsules by mouth three times daily for 335 days. What changed: how much to take CONTINUE taking these medications amLODIPine 5 mg tablet Commonly known as: NORVASC aspirin, enteric coated 81 mg EC tablet Commonly known as: ASPIRIN, ENTERIC COATED Take 2 tablets by mouth once daily. COREG 25 mg tablet Generic drug: carvedilol GLUCOTROL 5 mg tablet Generic drug: glipiZIDE insulin glargine 100 unit/mL injection Commonly known as: LANTUS U-100 INSULIN Inject 22 Units subcutaneously daily at bedtime. [facility]. LIPITOR 20 mg tablet Generic drug: atorvastatin losartan 100 mg tablet Commonly known as: COZAAR Take one tablet daily NovoLOG Flexpen U-100 Insulin 100 unit/mL Inpn Generic drug: insulin aspart U-100 You might also be taking other medications not listed above. If you have questions about any of your other medications, talk to the person who prescribed them or your Primary Care Provider. STOP taking these medications HYDROcodone-acetaminophen 5-325 mg per tablet Commonly known as: NORCO MELOXICAM ORAL Tiffany Stewart (Capability Lead) PAGER:[phone] December 04, 2017 1:48 PM CASE MGT INIT Observed: 12/04/2017 Status: COMPLETED Source: [place] 12:52 PM [facility] HNO ID: [id number] Author: Hina (Rn) TRACEE Zuñiga Service: Care Management Author Type: Registered Nurse Type: Care Mgt Initial Assessment Filed: 12/04/2017 3:20 PM Note Text: CARE MANAGEMENT: ASSESSMENT AND DISCHARGE PLAN Pt already D/C'd home - assessment done via EMR SERVICE DATE: 12/04/2017 SERVICE TIME: 1447 PRIMARY CARE PHYSICIAN: Param Rivers MD ADMISSION STATUS: Extended Recovery Needs Prior to Discharge: None;Ready for Discharge 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 No Advance Directive: Has POA paperwork in EPIC POA is Bradley () Alternate is Goran (brother) Health Literacy Assessment: Patient is unable to complete at this time due to already D/C'd. FUNCTIONAL AND COGNITIVE/BEHAVIORAL PRIOR TO ADMISSION: Baseline Mental Status: Alert AND Oriented and Age Appropriate Functional Status: Independent Does Patient Currently Receive Any Community Services or Home Care? Unknown Equipment Prior to Admission: Crutches Team to provide script for walker Has the Patient Been in a Long-Term Facility in the Past 30 days? No SOCIAL: Living Arrangement: Home Has 1st floor setup Lives With: Family Narciso have 24hr assist x1wk Financial Resources: N/A Primary Contact: Extended Emergency Contact Information Primary Emergency Contact: Bradley Vidales Relation: Spouse Secondary Emergency Contact: Dewayne Vidales WebAction Relation: Brother Supportive: Yes Other Important Patient Contacts: None Caregiver Assessment: Caregiver is ready, willing and able to meet the patient's needs as recommended by the inter-professional team? No Caregiver Needed Patient's transition needs and plan for meeting these needs: No PT needs identified Does the patient have an acute stroke diagnosis, or has the patient had a stroke during this admission? No Medicaiton Adherence: Patient is unable to complete at this time due to already D/C'd. Are you interested in bedside delivery of your medications? Yes Food Concerns: In the Last Month, Have You had Trouble Getting Food? No trouble getting food During the Last Month, Have You Worried Whether Your Food Would Run Out Before You Had Enough Money to Buy More? No Is the Patient Psychosocially Complex? No ASSESSMENT AND PLAN: Medical Needs: 2 or more chronic diseases Psychosocial Needs: None FREEDOM OF CHOICE EXPLAINED: N/A POTENTIAL TRANSITION PLANS Home CARE MANAGEMENT DISCHARGE NOTE SERVICE DATE: 12/04/2017 SERVICE TIME: 1447 LOS: 0 days Admission Date: 12/03/2017 DISCHARGE ARRANGEMENT (list agency and phone number) Home CAREGIVER ASSESSMENT: Caregiver is ready, willing and able to meet the patient's needs as recommended by the inter-professional team? No Caregiver Needed Patient's transition needs and plan for meeting these needs: No skilled needs Does the patient have an acute stroke diagnosis, or has the patient had a stroke during this admission? No HANDOFF COMMUNICATION: Primary Care Physician: Param Rivers MD - xhon note to be routed RN gave pt D/C instructions TRANSPORTATION ARRANGEMENTS: Car Family ADDITIONAL CONTACT RESOURCES: N/A Needs Prior to Discharge: None;Ready for Discharge Pt is POD #1 s/p L4/5 decompression w/ durotomy. Pain control. Bowel regimen. Incision care. On RA. AccuChecks. No PT needs identified. Pt D/C'd home around 2:40p. D/C order and instructions completed. SIGNATURE: Hina Zuñiga RN PATIENT NAME: Sam Vidales DATE: December 04, 2017 TIME: 12:56 PM PAGER/CONTACT #: [phone] OPERATIVE NO Observed: 12/04/2017 Status: COMPLETED Source: [place] 12:03 PM [facility] REPOSITORY HNO ID: [id number] Author: Toño Mills Service: Neurosurgery Author Type: Resident Type: Operative Report Filed: 12/04/2017 12:35 PM Note Text: OPERATIVE/PROCEDURE REPORT LOG ID: [id number] Surgery/Procedure Date: 12/03/2017 Incision/Procedure Start Time: 11:14 AM Incision Close/Procedure End Time: 1:46 PM Surgeon(s)/Proceduralist(s) and Waxer Operator(s): Surgeon(s) and Role: * Jess Leonardo - Primary * Toño Mills - Resident - Assisting No Additional Staff Procedure(s): L4/5 decompression ? Anesthesia: General ? Findings: Central stenosis with satisfactory decompression ? Procedure Details: The patient was brought to the operating room on the date of surgery. A patient huddle was performed where all personnel that were present for the case verified the correct surgical plan and that the patient was appropriately marked. The patient was then turned over to the care of Anesthesia for general endotracheal anesthesia, which occurred without complication. The patient was positioned prone on the OR table. He was prepped and draped in the standard sterile fashion. Surgical timeout was performed with all personal present, this confirmed surgical location, procedure and administration of antibiotics. A spinal needle was utilized to localize his incision. We opened the wound sharply and continued the soft tissue dissection to the level of the lamina using electrocautery. The bilateral pars were exposed with careful attention to not violate the joint capsule. An instrument was firmly affixed to the SP and pars, a cross table xray was obtained for localization. This was confirmed by two staff surgeons. Using lexel rongeur, pneumatic drill and Kerrison rongeurs, we performed a partial laminectomy of the bottom of L4 and top of L5. The the epidural space was defined and the ligamentum removed. Using a combination of kerrison rongeurs and curvets, the remainder of the ligament was removed and lateral recess decompressed. The foramen were palpated with Yue probe and found to be patent. During the process of decompression we encountered a durotomy on the right aspect of the dura. This was repaired primarily as well as with a duragen onlay and tisseal. No CSF egress was noted during valsaving maneuvers. Copious irrigation of the incisions using LR with bacitracin was completed. Hemostasis was maintained and the wound was closed in a layered fashion. Post-operative signout confirmed correct counts, no complications and correct procedure. The patient was taken to the PACU in stable condition with exam similar to that prior to surgery The procedure was performed by Dr. Leonardo with assistance from Dr. Mills Pre-Op/Pre-Procedure Diagnosis: lumbar spondylosis Post-Op/Post-Procedure Diagnosis: same Estimated Blood Loss: 100 mls Specimens: * No specimens in log * Implantable Devices: Implant Name Type Inv. Item Serial No. Screw Machine Set Up Operator Lot No. LRB No. Used GRAFT DURAGEN PLUS BOVINE COLLAGEN MATRIX 2X2IN SOFT TISSUE PATCH - [id number] Framework - Tissue GRAFT DURAGEN PLUS BOVINE COLLAGEN MATRIX 2X2IN SOFT TISSUE PATCH [employer] NEURO [id number] N/A 1 Drains: None Complications: durotomy SIGNATURE: Toño Mills MD PATIENT NAME: Sam Vidales DATE: December 04, 2017 TIME: 12:04 PM PAGER/CONTACT #: [phone] PLAN OF CARE Observed: 12/04/2017 Status: COMPLETED Source: [place] 11:08 AM [facility] REPOSITORY O ID: [id number] Author: Tiffany Stewart ([facility]) Service: (none) Author Type: (none) Type: Plan of Care Filed: 12/04/2017 11:08 AM Note Text: Pharmacy Discharge Medication Service: This patient has elected to receive their discharge prescriptions through the [facility] Bedside Prescription Delivery program. The prescriptions are currently being processed. A follow-up note will be entered once the prescriptions have been filled and delivered to the patient. Please contact me with any questions or updates to the patient's discharge medications. Tiffany Stewart ([facility]) DCT Contact Info: [phone] PAGER PLAN OF CARE Observed: 12/04/2017 Status: COMPLETED Source: [place] 11:08 AM [facility] REPOSITORY HNO ID: [id number] Author: Tiffany Stewart (Capability Lead) Service: (none) Author Type: (none) Type: Plan of Care Filed: 12/04/2017 11:08 AM Note Text: MECHANICAL ENGINEERING INTERN BEDSIDE DELIVERY SURVEY 1. Patient to use [facility] Bedside Delivery - YES 2. If fax, patient would like us to fax prescriptions to Pharmacy of choice a. Pharmacy: b. Location: c. Phone: 3. Insurance card on file - YES 4. Credit card for payment - N/A THERAPY NT Observed: 12/04/2017 Status: COMPLETED Source: [place] 10:56 AM [facility] REPOSITORY HNO ID: [id number] Author: Paresh (Pt) Jaun Service: Physical Therapy Author Type: Physical Therapist Type: Therapy (PT/OT/Speech/Resp) Filed: 12/04/2017 11:10 AM Note Text: Physical Therapy Evaluation SERVICE DATE: 12/04/2017 SERVICE TIME: 943 to 1047 ROOM: [place] [address] Recommended Discharge Disposition: Home Anticipated Discharge Needs: Physical Assist at Home Physical Assist at Home for: Safety;Stairs;Cleaning;Laundry Recommended Discharge Equipment: Wheeled Walker PT Recommendations to Nursing: Ambulate with device;To bathroom;In halls;With assist of 1 person Device: Wheeled Walker PT 6 Clicks Score: 18 Precautions/Activity Restrictions: Spine ASSESSMENT : Patient is a 67 y/o male who is POD #1 s/p L5-L5 decompression who presents with increased pain, decreased activity tolerance, impaired functional mobility, and impaired balance. Patient tolerated session well. Patient was able to ambulate 100' with use of WW and SBA. Patient was also able to safely ascend/descend 3 steps with CGA. Recommend patient to use WW for increased safety/stability with all mobility. Also recommend patient to have assistance with stairs initially. Patient will benefit from further skilled PT while in house to maximize safety/independence with all functional mobility. Anticipate patient will be safe to discharge home with assist from family and appropriate AD when medically ready. Patient Disposition at Start of Session: Supine in Bed Patient Disposition at End of Session: Supine in Bed;Call Orozco in Reach Tolerated Full Session Physical Therapy Problem List: Impaired Self Care;Decreased Activity Tolerance;Functional Mobility Impairment;Education Deficit Patient /Caregiver Goals: Go Home Goals for Plan of Care: Transfer supine to/from sit with: Supervision Transfer sit to/from stand with: Supervision Ambulate with: Supervision Distance: 150' Device: Wheeled Walker Ambulate up and down steps with: Contact Guard Assistance Number of steps: 3 Device: Hand Held Assist Rehab Potential: Good PLAN: Treatment Frequency (times per week): 3 Current admission Treatment Interventions: Functional Mobility Training;Balance Training;Neuromuscular Re-education;Education;Self Care / Home Management;Energy Conservation Training Plan of Care developed with: Patient;Family TREATMENT INTERVENTIONS: Therapy Diagnosis: Reduced mobility-other Interventions Provided: Evaluation;Therapeutic Activity (57723);Gait Training (86892) $ Evaluation-Moderate (70931) Billed Units: 1 unit Therapeutic Activity (99293) Treatment Minutes: 25 2 units Skilled Intervention(s): -Educated pt on PT role in hospital and role in d/c planning with d/c recommendation of Home -Educated pt on spinal precautions and how these apply to all functional mobility. -Instructed pt in proper body mechanics when performing self- care tasks and ADL's in order to ensure adherence to spinal precautions. -Instructed patient in log roll technique with verbal cues for placement of LE's into hook-lying position. Verbal cues for simultaneous sequencing of upper body and lower body when coming to side-lying position. Verbal cues to use upper body to push up into sitting position. CGA provided for safety with HOB flat and no use of bed rail per home set up. -Instruction in sit to stand technique with proper hand placement and body positioning at edge of bed/chair with verbal cues to push up using stable surface and not WW. CGA provided for stabilization. Verbal cues to completely extend knees prior to grabbing onto WW. -Instruction in stand to sit technique with lower extremities touching chair/bed and reaching back for surface with verbal cues for slow controlled descent. Verbal cues to not use WW to hold onto when descending. Gait Training (57111) Treatment Minutes: 15 1 unit Skilled Intervention(s): Instruction in sequencing, gait pattern with use of WW. Verbal cues for keeping LE's inside frame of WW. -Instruction in correction of gait deviations with verbal cues for increased step length bilaterally and fr upright posture. -Instruction in use of equipment, cues for sequence and pattern for increased safety/independence. -Instructed pt in stair negotiation x 3 steps with use of hand rail and hand held assist. CGA provided for stabilization. Verbal cues for proper LE sequencing with ascending/descending. X 2 trials performed. Educated pt's on how to assist pt due to pt not having handrails at home. -Educated pt on using WW for safety/stability with ambulation. -Educated pt on desired frequency with ambulation following surgery. Total Timed Code Treatment Minutes: 40 Total Treatment Time (minutes): 64 FUNCTIONAL G CODE: PT 6 Clicks Score: 18 (12/04/17943) Mobility: Walking and Moving Around Current Status (G8978): CK (12/04/17943) Mobility: Walking and Moving Around Goal Status (G8979): CI (12/04/17943) Based on clinical assessment and the score on the 6 Clicks Functional Assessment Tool, the G code and corresponding severity modifiers are documented above. SUBJECTIVE: Current Hospital Course: Chart reviewed; Patient is a 67 y/o male with PMHx including: HTN, DM II, aortic stenosis, s/p CABG x 4, CKD 3 who is POD #1 s/p L4-L5 decompression Patient Report: Can I get a back rub Home Environment Patient Lives With: Significant Other Assistance Available: 24 Hour (for the first week following surgery) Entry To Home: Stairs;Without Rail Number Of Stairs Into Home: 3 Number Of Stairs To Bed/Bath: 0 Tub/Shower Type: walk-in Laundry: first floor setup Equipment Owned: Crutch(es);Wheeled Walker Prior Functional Level: Within Functional Limits OBJECTIVE: Mini Cog Score: 5 (12/04/17943) CURRENT FUNCTIONAL STATUS: Current Functional Mobility Assist Level Additional Information Rolling Supine to Sit Contact Guard Assistance Sit to Supine Stand By Assistance Scooting Sit to Stand Contact Guard Assistance Stand to Sit Contact Guard Assistance Bed to Chair Toilet/Commode Gait Stand By Assistance Gait Device: Wheeled Walker Gait Distance (feet): 100' x 2 Stairs Contact Guard Assistance Stairs Device: Rail Number of Stairs: 3 Curb Step Car Transfer General Gait Deviations: Lenore decreased;Step length decreased Balance: Static Sitting;Dynamic Sitting;Static Standing;Dynamic Standing Static Sitting Balance: Modified Independent Dynamic Sitting Balance: Modified Independent Static Standing Balance: Stand By Assistance Dynamic Standing Balance: Contact Guard Assistance Please see discipline specific clinical documentation flowsheet for complete details for this therapy evaluation/treatment. SIGNATURE: Paresh Zamorano PT PATIENT NAME: Sam Vidales DATE: December 04, 2017 TIME: 10:57 AM PAGER/CONTACT #: [phone] PROGRESS Observed: 12/04/2017 Status: COMPLETED Source: [place] 9:00 AM [facility] REPOSITORY HNO ID: [id number] Author: Paulie Osei (Emilie) Ray Service: Neurosurgery Author Type: Nurse Practitioner Type: Progress Notes Filed: 12/04/2017 10:36 AM Note Text: Spine Surgery Team Inpatient Progress Note After 4 PM (1600) please page the resident/fellow from the appropriate team. After 1700, and weekends please page [phone]. Attending: Dr. Jess Leonardo, Neurosurgery Location: [place] [address] Hospital Day: 2 12/03/2017 1 Day Post-Op S/P: L4-L5 decompression Events since last progress note: None ASSESSMENT: Lumbar spondylosis with stenosis and neurogenic claudication. PLAN: Planned Date of Discharge: 12/04/2017 Discharge Disposition: Home Active Hospital Problems Diagnosis - Lumbar spondylosis - Lumbar stenosis with neurogenic claudication - Status post lumbar spine operative procedure for decompression of spinal cord - Acute postoperative pain -PT eval. -Out of bed to chair for meals. -Ambulate pt 3-4 x daily as able. -Monitor: signs, symptoms, disease progression, disease regression. -Evaluate: test results, medication effectiveness, response to treatment. -Pain control: analgesics titrated per consultation with Dr. Jess Leonardo -Plan discussed with Dr. Jess Leonardo -DC planning. - Type 2 diabetes mellitus with stage 3 chronic kidney disease, with long-term current use of insulin -Diabetic diet. -Blood glucose monitoring AC/HS. -Continue home Lantus 22 U subQ daily. -Continue home glipizide 10 mg PO daily. -Humalog SSI # 2 AC and # 1 HS. -Monitor: signs, symptoms, disease progression, disease regression. -Evaluate: test results, medication effectiveness, response to treatment. - Coronary artery disease involving [place] coronary artery of [place] heart without angina pectoris - S/P CABG x 4 -ASA 81 mg PO daily starting today, and then increase to home dose of 162 mg on POD # 3. -Continue home Coreg 25 mg PO bid. -Continue home losartan 100 mg PO daily. -Continue home Norvasc 5 mg PO daily. -Monitor: signs, symptoms, disease progression, disease regression. - Incidental durotomy -OK for OOB. -Monitor for positional GOSS's. -Monitor for increasing incisioal drainage. -Monitor for N/V, and/or tinnitus. PATIENT CHECK LIST: 1. Out of bed and ambulating: No Needs PT or OT Evaluation: Yes 2. Consults requested: No 3. Pain - Is the patient currently reporting any pain? Yes. What is the patient's current pain level on a 0 to 10 rating scale? Pain Score: 7/10 - What is the plan for pain management today 12/04/2017? Continue with current analgesics. - Relieved: Yes - PO Pain medications, Ice, Rest and Repositioning - Is patient satisfied with pain control: Yes INTERVAL HPI (Subjective): is a 67 year old male who reports appropriate postop pain and pain is controlled, and denies excessive pain, drainage, nausea, vomiting, chest pain, shortness of breath and numbness. Overnight events noted: none. He states that the pain is controlled. Denies any GOSS's. He would like to go home today. Gait difficulty: Yes . Distance Able to Walk: superUmbaBoxet with shopping cart Bowel / Bladder dysfunction: No Pain: Location: LBP: mid lumbar region, lower lumbar region, leg; bilateral leg pain; right = left. Character: aching, soreness, tenderness, throbbing and tingling. Paraesthesias / Sensory: Dermatomal distribution: Non-dermatomal. Numbness Location: none Weakness Location: left hip Duration: chronic: >2mos, now with acute postop pain. Intensity: moderate. Exacerbation: walking, standing, arising from a sitting position, lifting, twisting and backward bending. Remission: sitting, resting, lumbar flexion exercises, lying supine with flexed knees, application of cold and medications - analgesics and opioids. OBJECTIVE: LABS: CBC: Recent Labs 12/04/17 0738 WBC 10.20 HB 12.3* HCT 36.1* PLT 185 MCV 90.9 RDWCV 11.9 NEUTP 73.1 ABSNEUT 7.45 LYMPHP 12.5 MONOP 12.6 EODINP 1.2 Blood Glucose Checks: Lab Results Component Value Date PCGLUCOSE 153 (A) 12/04/2017 PCGLUCOSE 264 (A) 12/03/2017 PCGLUCOSE 188 (A) 12/03/2017 PCGLUCOSE 185 (A) 12/03/2017 Estimated Creatinine Clearance: 45.3 mL/min (A) (based on SCr of 1.61 mg/dL (H)). Body mass index is 26.16 kg/m?. Drains: None 12/03/17 2146 12/04/17 0251 12/04/17 0629 12/04/17 0746 BP: 165/85 127/50 165/68 137/95 Pulse: 66 67 66 Resp: 16 16 16 Temp: 37.1 ?C (98.7 ?F) 37.2 ?C (98.9 ?F) TempSrc: Oral Oral SpO2: 98% 97% 95% Weight: 82.7 kg (182 lb 4.8 oz) Height: General: A AND O x Oriented to: person, place and time, awake, alert and oriented. Speech is Normal, full, fluent. Appears stated age, well built, in no apparent distress. Hand Dominance: right handed. Psychiatric: Mood and affect: Appropriate. Skin: Color, texture, turgor normal. No rashes or lesions - Inspection: No evidence of erythema, warmth, bruising, abrasions, deformity, or lacerations. Positive: Appropriate postop lumbar spine incision that is well approximated with sutures. No drainage, erythema, or fluctuance is appreciated. CV: RRR without murmur, gallop, or rubs. Respiratory: lungs CTA bilaterally. Negative wheeze, rales, or rhonchi. Abdomen: Abdomen soft, non-tender. BS normal x 4. No masses or organomegaly. Musculoskeletal: Visual Inspection Cervical: WNL Thoracic: WNL Lumbar: WNL Palpation: Spinous Process: Pain, lumbar Paraspinals: Pain, lumbar Muscle Bulk: Normal and symmetrical in the upper AND lower extremities. Muscle Tone: normal Motor: RIGHT LEFT Finger extension (C7, C8) 5/5 5/5 Finger abduction (C8, T1) 5/5 5/5 Wrist flexion/hand ABduction (C6, C7) 5/5 5/5 Wrist flexion/hand ADduction (C7, C8, T1) 5/5 5/5 Wrist extension/hand ABduction (C5, C6) 5/5 5/5 Elbow flexion w/ forearm supinated (C5, C6) 5/5 5/5 Elbow extension (C6, C7, C8) 5/5 5/5 Arm ABduction (C5, C6) 5/5 5/5 Hip flexion (L1, L2, L2, L4) 5/5 4+/5 Knee extension (L2, L3, L4) 5/5 5/5 Knee flexion (L5, S1, S2) 5/5 5/5 Toe dorsiflexion (L5, S1) 5/5 5/5 Foot dorsiflexion (L4, L5) 5/5 5/5 Foot plantarflexion (S1, S2) 5/5 5/5 Foot eversion (L5, S1) 5/5 5/5 Foot inversion (L4, L5) 5/5 5/5 Sensory: intact. Gait: not yet assessed. Reflexes: RIGHT LEFT Brachioradialis 2+ 2+ Biceps 2+ 2+ Triceps 2+ 2+ Knee 2+ 2+ Achilles 1+ 1+ Long Tract Signs: No clonus, Babinski, or Flores's. SIGNATURE: Paulie Bell CNP, DNP PATIENT NAME: Sam Vidales DATE: 12/04/2017 TIME: 10:17 AM PAGER/PHONE: [phone] After 4 PM (1600) please page the resident from the appropriate team. After 1700, and weekends please page [phone]. Per consultation with Dr. Jorden DC the pt with an Rx for Percocet for acute postop pain. > 30 MED are needed d/t type of surgery, postoperative course, and pain not adequately controlled with APAP, and muscle relaxants. OARRS website checked and validated. All prescriptions have been APPROPRIATELY filled. No suspicious activity was identified.- 12/04/2017 by Paulie Bell APRN.NAKITA ATWOOD CBC AND DIFFERENTIAL Collected: 12/04/2017 Status: F Source: [place] 7:38 AM [facility] REPOSITORY TYPE CODE TESTS RESULT OUT OF REFERENCE UNITS RANGE LAB WBC 3.70-11.00 k/uL WBC 10.20 LAB RBC 4.20-6.00 m/uL Low RBC 3.97 LAB HGB 13.0-17.0 g/dL Low Hemoglobin 12.3 LAB HCT 39.0-51.0 % Low Hematocrit 36.1 LAB MCV 80.0-100.0 fL MCV 90.9 LAB MCH 26.0-34.0 pG MCH 31.0 LAB MCHC 30.5-36.0 g/dL MCHC 34.1 LAB RDWCV 11.5-15.0 % RDW-CV 11.9 LAB PLTCT 150-400 k/uL Platelet Count 185 LAB MPV 9.0-12.7 fL MPV 9.5 LAB ANEUT % Neut% 73.1 LAB AANEUT 1.45-7.50 k/uL Abs Neut 7.45 LAB ALYMP % Lymph% 12.5 LAB AALYMP 1.00-4.00 k/uL Abs Lymph 1.28 LAB AMONO % [place]% 12.6 LAB AAMONO <0.87 k/uL Abs [place] High 1.29 LAB AEOS % Eosin% 1.2 LAB AAEOS <0.46 k/uL Abs Eosin 0.12 LAB ABASO % Baso% 0.6 LAB AABASO <0.11 k/uL Abs Baso 0.06 LAB AUNRBC 0 /100 WBC NRBCs High 0.1 LAB ABNRBC <0.01 k/uL Absolute High nRBC 0.01 LAB DTYP DTYPE Auto Diff Performed By: #### CBCDIF, MG1, RFP #### [facility] [address] [place] [address] MAGNESIUM Collected: 12/04/2017 Status: F Source: [place] 7:38 [facility] REPOSITORY TYPE CODE TESTS RESULT OUT OF REFERENCE UNITS RANGE LAB MG 1.7-2.3 mg/dL Magnesium 1.8 Performed By: #### CBCDIF, MG1, RFP #### [facility] [address] [place] [address] RENAL FUNCTION PANEL Collected: 12/04/2017 Status: F Source: [place] 7:38 [facility] REPOSITORY TYPE CODE TESTS RESULT OUT OF REFERENCE UNITS RANGE LAB ALB 3.9-4.9 g/dL Low Albumin 3.4 LAB CA 8.5-10.2 mg/dL Calcium, Total 8.5 LAB PHOS 2.7-4.8 mg/dL Phosphorus 2.9 LAB GLU 74-99 mg/dL Glucose High 171 Result Comment: The [place] Diabetes Association (ADA) provides guidance for cutoff values for fasting glucose and random glucose. The ADA defines fasting as no caloric intake for at least 8 hours. Fas ting plasma glucose results between 100 to 125 mg/dL indicate increased risk for diabetes (prediabetes). Fasting plasma glucose results greater than or equal to 126 mg/dL meet the criteria for diagnosis of diabetes. In the absence of unequivocal hyperglycemia, results should be confirmed by repeat testing. In a patient with classic symptoms of hyperglycemia or hyperglycemic crisis, random plasma glucose results greater than or equal to 200 mg/dL meet the criteria for diagnosis of diabetes. Reference: Standards of Medical Care in Diabetes 2016, [place] Diabetes Association. Diabetes Care. 2016.39(Suppl 1). LAB BUN 9-24 mg/dL BUN 21 LAB CRET 0.73-1.22 mg/dL Creatinine High 1.53 LAB NA 136-144 mmol/L Sodium 139 LAB K 3.7-5.1 mmol/L Potassium 4.5 LAB CL 97-105 mmol/L Chloride 104 LAB CO2 22-30 mmol/L CO2 26 LAB AGAP 9-18 mmol/L Anion Gap 9 LAB GFRAA eGFR- Amer. 55 LAB GFRNAA . eGFR-All Other Races 45 Result Comment: eGFR (Estimated GFR) Units of measure: mL/min/1.73 meters squared eGFR is derived from the reexpressed MDRD Study equation using the following parameters: serum creatinine, age, gender and race. The creatinine assay has been calibrated to be traceable to IDMS. An eGFR <60 mL/min/1.73m2 for >3 months is consistent with chronic kidney disease. Refer to KDOQI guidelines for clinical interpretation. In patients with unstable renal function, e.g. those with acute kidney injury, the eGFR may not accurately reflect actual GFR. Performed By: #### CBCDIF, MG1, RFP #### [facility] [address] [place] [address] NURSING PROG Observed: 12/03/2017 Status: COMPLETED Source: [place] 6:08 PM [facility] REPOSITORY HNO ID: [id number] Author: Johana (Rn) TRACEE Gan Service: Nursing Author Type: Registered Nurse Type: Nursing Progress Note Filed: 12/03/2017 6:29 PM Note Text: Pt has not voided since prior to surgery - states he has the urge to void, but is unable d/t flat bedrest for durotomy. Bladder scanned for 551 @ 1740. [id number] and Jelly YEBOAH paged to make aware, awaiting orders. 1809: Orders for st cath - in to assess pt, pt able to void 150 - requesting nursing to give him more time to attempt to void until after dinner. [phone] paged to update. PROGRESS Observed: 12/03/2017 Status: COMPLETED Source: [place] 5:24 PM [facility] REPOSITORY HNO ID: [id number] Author: Crow Edwards Service: Neurosurgery Author Type: Resident Type: Progress Notes Filed: 12/03/2017 5:26 PM Note Text: Neurosurgery Post-op Check Note Subjective: POC Objective: EXAM: AOx3 FS grossly NAD No drift BUE 5/5 in D B T HG HI RLE: 5/5 in HF KE DF PF EHL LLE: 5/5 in HF KE DF PF EHL Sensation intact globally Dressing c/d/i A/P: POD #0 s/p L4/5 decompression (c/b intraop durotomy) -Neuro as above -SBP normotensive -HOB flat overnight -Pain control -No drain -PT/OT when mobilized -RNF when meets PACU criteria Signature: Crow Edwards M.D. Neurosurgery, PGY-2 Pager #[phone] 12/03/2017 5:24 PM ANES POST Observed: 12/03/2017 Status: COMPLETED Source: [place] 2:29 PM [facility] REPOSITORY HNO ID: [id number] Author: Zac Gould Service: (none) Author Type: Anesthesiologist Type: Anesthesia PostOp Filed: 12/03/2017 2:29 PM Note Text: POST ANESTHESIA EVALUATION NOTE SERVICE DATE: 12/03/2017 SERVICE TIME: 14:29 : 1950 Vitals: 12/03/17 0806 12/03/17 1400 Temp: 36.6 ?C (97.9 ?F) 36 ?C (96.8 ?F) 12/03/17 0806 12/03/17 1400 BP: 158/79 145/79 12/03/17 0806 12/03/17 1400 Pulse: 65 (!) 58 12/03/17 0806 12/03/17 1400 Resp: 18 16 12/03/17 0806 12/03/17 1400 SpO2: 97% 100% Validated Vital Signs: Yes POST ANES STATUS: No apparent anesthetic complications. The patient is appropriately hydrated with stable respiratory and cardiovascular status. Patient has safe and adequate airway control. The patient has appropriate pain relief and no significant post operative nausea or vomiting. The patient has achieved baseline mental status. Intra-Operative Events: No Significant Anesthesia Events See the [facility] record for the event detail Further assessment by Anesthesia Service: None Other Remarks: SIGNATURE: Zac Gould MD PATIENT NAME: Sam Vidales DATE: December 03, 2017 TIME: 2:29 PM PAGER/CONTACT #: [phone] BRIEF OP NOT Observed: 12/03/2017 Status: COMPLETED Source: [place] 1:37 PM [facility] REPOSITORY HNO ID: [id number] Author: Toño Mills Service: Neurosurgery Author Type: Resident Type: Brief Op Note Filed: 12/03/2017 1:38 PM Note Text: BRIEF OP NOTE LOG ID: [id number] Surgery/Procedure Date: 12/03/2017 Incision/Procedure Start Time: 11:14 AM Incision Close/Procedure End Time: 1:37 PM Surgeon(s)/Proceduralist(s) and Waxer Operator(s): Surgeon(s) and Role: * Jess Leonardo - Primary * Toño Mills - Resident - Assisting Procedure(s): L4/5 decompression Anesthesia: General Findings: Central stenosis with satisfactory decompression Estimated Blood Loss: 100 mls Specimens: None Complications: Durotomy Pre-Op/Pre-Procedure Diagnosis: spondylosis with neurogenic claudication Post-Op/Post-Procedure Diagnosis: same SIGNATURE: Toño Mills MD PATIENT NAME: Sam Vidales DATE: December 03, 2017 TIME: 1:37 PM PAGER/CONTACT #: [phone] XR LUMBAR SPECIFY 1V Observed: 12/03/2017 Status: F Source: [place] 11:40 AM [facility] REPOSITORY * * *Final Report* * * DATE OF EXAM: Dec 03 2017 11:40AM ESX [id number] - XR LUMBAR SPECIFY 1V / PROCEDURE REASON: LAMINECTOMY DECOMPRESSION FACETECTOMY AND FORAMINOTOMY * * * * Physician Interpretation * * * * HISTORY: LAMINECTOMY DECOMPRESSION FACETECTOMY AND FORAMINOTOMY. localization TECHNIQUE: XR LUMBAR SPECIFY 1V Laterality: NOT APPLICABLE Number of different views (projections): 1 COMPARISON: 12/03/2017 RESULT: COUNTING REFERENCE: Lumbosacral junction. For the purposes of this report, the last well-formed disc space is labeled as L5-S1. A surgical instrument is located posterior to the L4 vertebral body, directed towards the L4-5 interspace. An additional surgical instrument overlies the spinous process of the L4 vertebral body. Retractors are in place in the soft tissues posterior to the L4 vertebrae. IMPRESSION: INTRAOPERATIVE PLANNING Rigging Up Man: NANNETTE Transcribe Date/Time: Dec 03 2017 12:04P Dictated by : CANELO NAQVI MD This examination was interpreted and the report reviewed and electronically signed by: LIU HOFF MD on Dec 03 2017 12:26PM EST [id number] XR LUMBAR SPECIFY 1V Observed: 12/03/2017 Status: F Source: [place] 11:15 AM [facility] REPOSITORY * * *Final Report* * * DATE OF EXAM: Dec 03 2017 11:15AM ESX 5234 - XR LUMBAR SPECIFY 1V / PROCEDURE REASON: fusion * * * * Physician Interpretation * * * * EXAMINATION: XR LUMBAR SPECIFY 1V HISTORY: fusion. TECHNIQUE: Single lateral view. RESULT: Surgical instruments are present overlying posterior elements of L4. IMPRESSION: INTRAOPERATIVE EXAMINATION DESCRIBED. Rigging Up Man: Flitto Transcribe Date/Time: Dec 03 2017 11:36A Dictated by : LIU HOFF MD This examination was interpreted and the report reviewed and electronically signed by: LIU HOFF MD on Dec 03 2017 11:36AM EST [id number] NURSING PROG Observed: 12/03/2017 Status: COMPLETED Source: [place] 8:10 AM [facility] REPOSITORY HNO ID: [id number] Author: Brittany TorresRn) TRACEE Pennington Service: Nursing Author Type: Registered Nurse Type: Nursing Progress Note Filed: 12/03/2017 8:10 AM Note Text: PRE OP LEARNING ASSESSMENT PROCEDURE/SURGERY: SURGERY: Decompression Laminectomy READINESS TO LEARN COGNITIVE ABILITY: Alert and oriented MOTIVATION TO LEARN: Eager Interested FAMILY SUPPORT: High - Very involved in pt care PATIENT LEARNS BEST BY: Individual Instruction Written Instruction - Hand-outs Verbal Instruction FACTORS AFFECTING LEARNING: None PHYSICAL LIMITATIONS AFFECTING LEARNING: None Electronically Signed By: Brittany Pennington RN In Department: HOSP MAIN M021 GASA + ALL Collected: 12/03/2017 Status: F Source: [facility] 8:03 AM [facility] ONLY REPOSITORY TYPE CODE TESTS RESULT OUT OF REFERENCE UNITS RANGE LAB PH 7.35-7.45 pH 7.38 LAB PCO2 34-46 mm Hg pCO2 44 LAB PO2 85-95 mm Hg pO2 Low 52 LAB BE mmol/L Base Excess 0 LAB HCO3 22-26 mmol/L Bicarbonate 25 LAB CO2CT 22.0-28.0 mmol/L CO2 Content 27 LAB O2HB 95-98 % Oxyhemoglobin, Low Art. 85 LAB COHB 0-5.0 % Carboxyhemoglobin,A 1.4 rt LAB MHGB 0.4-1.5 % Methemoglobin 0.6 LAB TEMP C Temperature, Body 37.0 LAB PHTC 7.35-7.45 pH, Temp Corrected 7.38 LAB PCO2T 34-46 mm Hg pCO2, Temp Correct 44 LAB PO2T mm Hg pO2, Temp Corrected 52 LAB NAB 135-146 mmol/L Sodium,Whole Bld 140 LAB KWB 3.5-5.0 mmol/L Potassium, Whole Bld 4.5 LAB HGBB 13.0-17.0 g/dL Hemoglobin,Total,AC 14.4 L LAB HCTB 39.0-51.0 % Hematocrit, ACL 44 LAB IC 1.08-1.30 mmol/L Calcium, Ion, WB 1.27 LAB GLB 60-105 mg/dL Glucose,Whole Bld High 188 LAB LACT 0.5-2.2 mmol/L Lactate 1.3 Performed By: #### ALLBG #### [facility] [address], [place] [address] PROGRESS Observed: 11/26/2017 Status: COMPLETED Source: [place] 1:36 PM [facility] REPOSITORY HNO ID: [id number] Author: Tucker Cortez RN Service: (none) Author Type: (none) Type: Progress Notes Filed: 11/26/2017 1:37 PM Note Text: Met with pt and for pre op education. Given both written and verbal instructions re: Skin prep, wound care, pain management, and post op restrictions. Discussed Home Care post discharge. Nasal swab obtained. Instructed in treatment of positive results. Questions answered. Pt and voice understanding. STAPH AUREUS PCR Collected: 11/26/2017 Status: F Source: [place] 1:35 PM [facility] REPOSITORY TYPE CODE TESTS RESULT OUT OF REFERENCE UNITS RANGE LAB SASRC Nasal S aureus Spec Source LAB MRSRES Negative for MRSA MRSA by PCR. PCR LAB SARES Negative for Staph Staphylococcus aureus PCR aureus by PCR. Performed By: #### SAPCR #### [facility] [address] [address] ALBUMIN/CREAT RATIO Collected: 11/26/2017 Status: F Source: [place] 1:09 PM [facility] REPOSITORY TYPE CODE TESTS RESULT OUT OF REFERENCE UNITS RANGE LAB UCRR 20-300 mg/dL Creatinine,Ur 108.0 ine,Ran LAB UALBR 0.0-23.0 mg/L High Albumin Urine 249.4 Random LAB UALBCR 0-30 mg/g High Albumin/Creat 231 Ratio Result Comment: 30 to 300 mg/g indicates an increased risk for diabetic nephropathy. Greater than 300 mg/g is consistent with clinical nephropathy. (Am J Kidney Disease 1995, 25:107) Performed By: #### UACR #### [facility] [address] [place] [address] CNNURSE Observed: 11/26/2017 Status: COMPLETED Source: [place] 1:00 PM [facility] RE[facility]IT[facility] Nurse Visit (SPNSMN) SAM VIDALES ([id number]) 1950 M Date Time Provider Department 11/26/17 1:00 PM TUCKER CORTEZ (RN) SPNSMN During your visit today, we recorded the following information about you: Tucker Cortez RN 11/26/2017 1:37 PM Signed Met with pt and for pre op education. Given both written and verbal instructions re: Skin prep, wound care, pain management, and post op restrictions. Discussed Home Care post discharge. Nasal swab obtained. Instructed in treatment of positive results. Questions answered. Pt and voice understanding. 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 MELOXICAM ORAL Take by mouth. GABAPENTIN 300 MG CAPSULE Take 4 capsules by mouth thre* HYDROCODONE 5 MG-ACETAMINOPHE* Take 1 tablet by mouth three * ATORVASTATIN 20 MG TABLET Take 1 tablet by mouth daily * INSULIN ASPART U-100 100 UNI* 6 - 12 units as needed with a* GLIPIZIDE 5 MG TABLET Take 10 mg by mouth daily bef* ASPIRIN 81 MG TABLET,DELAYED * Take 162 mg by mouth once susie* LOSARTAN 100 MG TABLET Take one tablet daily Problem List As Of Date 11/26/2017 Noted Resolved Type 2 diabetes mellitus with stage 3 chronic k* Other and Unspecified Hyperlipidemia [E78.5] 01/27/2010 BPH without urinary obstruction [N40.0] Unspecified hemorrhoids without mention of comp* 02/09/2016 More... Anemia, unspecified [D64.9] 02/09/2016 Acute gastritis without mention of hemorrhage [*INVALID FOR*02/09/2016 PAIN JOINT, KNEE [M25.569] INVALID FOR*02/09/2016 Labyrinthitis, unspecified [H83.09] INVALID FOR*02/09/2016 Chronic obstructive pulmonary disease with acut*INVALID FOR* Hyperlipidemia [E78.5] INVALID FOR* Hearing loss [H91.90] INVALID FOR* Overweight (BMI 25.0-29.9) [E66.3] INVALID FOR* Undiagnosed cardiac murmurs [R01.1] INVALID FOR*02/09/2016 Atherosclerosis of [place] coronary artery of na*INVALID FOR* CKD (chronic kidney disease) stage 3, GFR 30-59*INVALID FOR* Aortic stenosis, mild [I35.0] INVALID FOR* Colon cancer screening [Z12.11] INVALID FOR*04/12/2016 S/P CABG x 4 [Z95.1] INVALID FOR* Lumbar stenosis with neurogenic claudication [M*INVALID FOR* More... Questionnaire: SPINE PREOP CHECKLIST Pre-op Skin Preparation Education Provided to Patient: -> Yes Pre-op Skin Cleansers Provided: -> Yes Nasal Swab Collected AND sent to Lab: -> Yes Nasal Swab Education Provided to Patient: -> Yes Your Surgical Guide Binder Provided to Patient: -> Yes Post Surgical Wound Care Instructions Provided and Reviewed: -> Yes Home Going Instructions Provided and Reviewed: -> Yes Post-op Appointments Made and Provided: -> Yes Encounter Status:Closed by DANA EASLEY, TUCKER on 11/26/17 KYUNG Observed: 11/26/2017 Status: COMPLETED Source: [place] 11:00 AM [facility] REPOSITORY Office Visit (PSSCMN) SAM VIDALES ([id number]) 1950 M Date Time Provider Department 11/26/17 11:[address] [facility] During your visit today, we recorded the following information about you: Pulse Blood pressure Weight Height 56/minute 114/63 85.3 kg 1.778 m Mack Gibbs RN 11/26/2017 11:48 AM Signed ANESTHESIA PRE-OPERATIVE ASSESSMENT (PACE) SERVICE DATE: 11/26/2017 SERVICE TIME: 1058 ASSESSMENT AND PLAN: Sam Vidales is a 67 year old male scheduled for L4/5 laminectomy per Informed Consent in MAIN on 12/03/17. PMH: stenosis for above surgery CAD- s/p CABGx4 Jul 2016 VALVERDE- LAD, a free GWEN to OM #1 as a Y graft off of the VALVERDE, SVG to OM 32, SVG to the Posterior lateral branch ECHO Jul 2017- EF 65%, RVSP 30 mmHG, possible fusion of the non and left coronary cusps and mild to moderate aortic stenosis with a peak/mean gradient of 28 and 15 mmHG respectively. Cardiac clearance form his private tutors and teachers Dr Lavell Pinon (scanned into [employer]) .. Preoperative stratification : The patient is at low risk for non cardiac surgery, and does not require repeat stress test or echocardiogram at this time. he is asymptomatic and is less than 1 year from his bypass surgery. Recommended he continue his baby aspirin, Coreg, hydrochlorothiazide, losartan. He will start amlodipine 5 milligrams p.o. daily, and repeat a blood pressure check in 1 week's time. If his blood pressure is still not optimized we can increase his amlodipine to 10 mg a day. Carotid US 2016 (bruit) There is shadowing echogenic plaque within the carotid bulbs?and proximal right internal carotid artery with less than 50% hemodynamic stenosis. HTN on coreg, losartan, amlodipine HPLon lipitor DM- A1C 8.1- on lantus 22 units qhs, novolog kwikpen 6-12 units before meal, and glipizide CKD- stg 3 (htn/dm) last creat 1.35- labs pending neuropathy on neurontin (taking 300mg; 4 tablets three times daily) (patient reports given neurontin by his pain MD and dose as increased by surgical team) chronic pain norco, mobic, neurontin- 6 or greater with walking, standing [facility]: 3 FC: 2 METS: Walk a block or two on level ground (2.75 METs) Climb a flight of stairs or walk up a hill (5.50 METs) Patient WILL accept blood products. BLOOD WORK/PRODUCTS ORDERED: Type and Screen , Con ABO HISTORY OF CHRONIC PAIN: Yes Current Pain Level: 6 with standing, 0 if just sitting or lying down Location: waist down Baseline Pain Level 6 or greater Acceptable Pain Level: 2 can live with 2-3 Current Pain Regimen: norco , neurontin, mobic Length of Time on Pain Medication: norco May 2017, neurontin Jul/Aug 2017 Facility or PCP Prescribing Pain Regimen: Dr Champion (pain doctor) [phone] PAIN MANAGEMENT OPTIONS: Routine/PRN IV and Final pain management plan will be discussed on the day of surgery. ANESTHETIC OPTIONS: General and Final anesthesia management options will be discussed on day of surgery. PRE-OP PLAN ORDERED: Diabetes orders Patient Instructed: ? No solid food or non-clear liquids after midnight. Clear liquids allowed until two hours before scheduled arrival. ? Patient instructed to take the following medications with a sip of water: coreg, norvasc, neurontin, norco if needed Vital Signs: BP 114/63 Pulse (!) 56 Ht 177.8 cm (5' 10) Wt 85.3 kg (188 lb) SpO2 97% BMI 26.98 kg/m? BMI 26.98 kg/(m2) Vital signs completed by: IMPACT Weight acquired: per HANDP. Height acquired: per HANDP Airway Exam: MOUTH OPENING/TMJ: Full jaw ROM MICROGNATHIA/OVERBITE: No MALLAMPATI SCORE is CLASS III UPPER LIP BITE TEST: Class II - Lower incisors can bite the upper lip below the simone line DENTITION: Intact THYROMENTAL DIST: WNL, full campbell SHORT NECK: No NECK CIRCUMFERENCE >40 cm: Appears < than 40 CM NECK FLEX: Full ROM NECK EXTENSION: Full ROM AIRWAY HISTORY: No abnormal airway history ARKS AIRWAY DETAIL: N/A DATA: EKG READING: Unconfirmed - today OTHER TESTS: Echo: Date: Jul 2017 , Results: Jul 2017- EF 65%, RVSP 30 mmHG, possible fusion of the non and left coronary cusps and mild to moderate aortic stenosis with a peak/mean gradient of 28 and 15 mmHG respectively. Lab Value Units Date High Low HB 12.9 g/dL 11/26/2017 17.0 13.0 HCT 39.9 % 11/26/2017 51.0 39.0 WBC 5.68 k/uL 11/26/2017 11.00 3.70 PLT 216 k/uL 11/26/2017 400 150 NA No results within date range. K No results within date range. GLUC No results within date range. BUN No results within date range. CREAT No results within date range. PTSEC No results within date range. INR No results within date range. APTT No results within date range. ALT No results within date range. AST No results within date range. TBILI No results within date range. TSH No results within date range. Lab Value Units Date High Low HCGQT No results within date range. UHCG No results within date range. HCG, BODY* No results within date range. ABORHD A POSI* no uni* 11/26/2017 ABSCREEN No results within date range. HBA1C: Hemoglobin A1C (%) Date Value 11/19/2017 8.1 07/30/2016 7.3 ) Patient accompanied by self Case Discussed with Dr Morris OPTIMIZATION STATUS: Patient optimization pending Labs IMPACT EKG IMPACT SIGNATURE: Mack Gibbs RN PATIENT NAME: Sam Vidales DATE: November 26, 2017 TIME: 10:58 AM PAGER/CONTACT #: Referring Provider: JESS LEONARDO [[id number]] Allergies As of Date: 11/26/2017 Noted Allergy Reaction environmental [Other] 08/05/2006 9 - Itching Comments: hayfever,sneezing,watery eyes Date Reviewed: 11/26/2017 Reviewed by: Mack Gibbs RN - Fully Assessed Primary Visit Diagnosis:Pre-op evaluation [Z01.818] Prescriptions as of 11/26/2017 Sig: CARVEDILOL 25 MG TABLET Take 25 mg by mouth twice susie* INSULIN GLARGINE (U-100) 100 * Inject 22 Units subcutaneousl* AMLODIPINE 5 MG TABLET Take 5 mg by mouth once daily. MELOXICAM ORAL Take by mouth. GABAPENTIN 300 MG CAPSULE Take 4 capsules by mouth thre* HYDROCODONE 5 MG-ACETAMINOPHE* Take 1 tablet by mouth three * ATORVASTATIN 20 MG TABLET Take 1 tablet by mouth daily * INSULIN ASPART U-100 100 UNI* 6 - 12 units as needed with a* GLIPIZIDE 5 MG TABLET Take 10 mg by mouth daily bef* ASPIRIN 81 MG TABLET,DELAYED * Take 162 mg by mouth once susie* LOSARTAN 100 MG TABLET Take one tablet daily Problem List As Of Date 11/26/2017 Noted Resolved Type 2 diabetes mellitus with stage 3 chronic k* Other and Unspecified Hyperlipidemia [E78.5] 01/27/2010 BPH without urinary obstruction [N40.0] Unspecified hemorrhoids without mention of comp* 02/09/2016 More... Anemia, unspecified [D64.9] 02/09/2016 Acute gastritis without mention of hemorrhage [*INVALID FOR*02/09/2016 PAIN JOINT, KNEE [M25.569] INVALID FOR*02/09/2016 Labyrinthitis, unspecified [H83.09] INVALID FOR*02/09/2016 Chronic obstructive pulmonary disease with acut*INVALID FOR* Hyperlipidemia [E78.5] INVALID FOR* Hearing loss [H91.90] INVALID FOR* Overweight (BMI 25.0-29.9) [E66.3] INVALID FOR* Undiagnosed cardiac murmurs [R01.1] INVALID FOR*02/09/2016 Atherosclerosis of [place] coronary artery of na*INVALID FOR* CKD (chronic kidney disease) stage 3, GFR 30-59*INVALID FOR* Aortic stenosis, mild [I35.0] INVALID FOR* Colon cancer screening [Z12.11] INVALID FOR*04/12/2016 S/P CABG x 4 [Z95.1] INVALID FOR* Lumbar stenosis with neurogenic claudication [M*INVALID FOR* More... Encounter Status:Closed by MACK GIBBS RN on 11/26/17 Chart Close Cosign Required by: Ankit Morris[] PROGRESS Observed: 11/26/2017 Status: COMPLETED Source: [place] 10:58 AM [facility] REPOSITORY O ID: [id number] Author: Mack Gibbs RN Service: (none) Author Type: (none) Type: Progress Notes Filed: 11/26/2017 11:48 AM Note Text: ANESTHESIA PRE-OPERATIVE ASSESSMENT (PACE) SERVICE DATE: 11/26/2017 SERVICE TIME: 1058 ASSESSMENT AND PLAN: Sam Vidales is a 67 year old male scheduled for L4/5 laminectomy per Informed Consent in MAIN on 12/03/17. PMH: stenosis for above surgery CAD- s/p CABGx4 Jul 2016 VALVERDE- LAD, a free GWEN to OM #1 as a Y graft off of the VALVERDE, SVG to OM 32, SVG to the Posterior lateral branch ECHO Jul 2017- EF 65%, RVSP 30 mmHG, possible fusion of the non and left coronary cusps and mild to moderate aortic stenosis with a peak/mean gradient of 28 and 15 mmHG respectively. Cardiac clearance form his private tutors and teachers Dr Lavell Pinon (scanned into [employer]) .. Preoperative stratification : The patient is at low risk for non cardiac surgery, and does not require repeat stress test or echocardiogram at this time. he is asymptomatic and is less than 1 year from his bypass surgery. Recommended he continue his baby aspirin, Coreg, hydrochlorothiazide, losartan. He will start amlodipine 5 milligrams p.o. daily, and repeat a blood pressure check in 1 week's time. If his blood pressure is still not optimized we can increase his amlodipine to 10 mg a day. Carotid US 2017 (bruit) There is shadowing echogenic plaque within the carotid bulbs?and proximal right internal carotid artery with less than 50% hemodynamic stenosis. HTN on coreg, losartan, amlodipine HPLon lipitor DM- A1C 8.1- on lantus 22 units qhs, novolog kwikpen 6-12 units before meal, and glipizide CKD- stg 3 (htn/dm) last creat 1.35- labs pending neuropathy on neurontin (taking 300mg; 4 tablets three times daily) (patient reports given neurontin by his pain MD and dose as increased by surgical team) chronic pain norco, mobic, neurontin- 6 or greater with walking, standing [facility]: 3 FC: 2 METS: Walk a block or two on level ground (2.75 METs) Climb a flight of stairs or walk up a hill (5.50 METs) Patient WILL accept blood products. BLOOD WORK/PRODUCTS ORDERED: Type and Screen , Con ABO HISTORY OF CHRONIC PAIN: Yes Current Pain Level: 6 with standing, 0 if just sitting or lying down Location: waist down Baseline Pain Level 6 or greater Acceptable Pain Level: 2 can live with 2-3 Current Pain Regimen: norco , neurontin, mobic Length of Time on Pain Medication: norco May 2017, neurontin Jul/Aug 2017 Facility or PCP Prescribing Pain Regimen: Dr Champion (pain doctor) [phone] PAIN MANAGEMENT OPTIONS: Routine/PRN IV and Final pain management plan will be discussed on the day of surgery. ANESTHETIC OPTIONS: General and Final anesthesia management options will be discussed on day of surgery. PRE-OP PLAN ORDERED: Diabetes orders Patient Instructed: ? No solid food or non-clear liquids after midnight. Clear liquids allowed until two hours before scheduled arrival. ? Patient instructed to take the following medications with a sip of water: coreg, norvasc, neurontin, norco if needed Vital Signs: BP 114/63 Pulse (!) 56 Ht 177.8 cm (5' 10) Wt 85.3 kg (188 lb) SpO2 97% BMI 26.98 kg/m? BMI 26.98 kg/(m2) Vital signs completed by: IMPACT Weight acquired: per HANDP. Height acquired: per HANDP Airway Exam: MOUTH OPENING/TMJ: Full jaw ROM MICROGNATHIA/OVERBITE: No MALLAMPATI SCORE is CLASS III UPPER LIP BITE TEST: Class II - Lower incisors can bite the upper lip below the simone line DENTITION: Intact THYROMENTAL DIST: WNL, full campbell SHORT NECK: No NECK CIRCUMFERENCE >40 cm: Appears < than 40 CM NECK FLEX: Full ROM NECK EXTENSION: Full ROM AIRWAY HISTORY: No abnormal airway history ARKS AIRWAY DETAIL: N/A DATA: EKG READING: Unconfirmed - today OTHER TESTS: Echo: Date: Jul 2017 , Results: Jul 2017- EF 65%, RVSP 30 mmHG, possible fusion of the non and left coronary cusps and mild to moderate aortic stenosis with a peak/mean gradient of 28 and 15 mmHG respectively. Lab Value Units Date High Low HB 12.9 g/dL 11/26/2017 17.0 13.0 HCT 39.9 % 11/26/2017 51.0 39.0 WBC 5.68 k/uL 11/26/2017 11.00 3.70 PLT 216 k/uL 11/26/2017 400 150 NA No results within date range. K No results within date range. GLUC No results within date range. BUN No results within date range. CREAT No results within date range. PTSEC No results within date range. INR No results within date range. APTT No results within date range. ALT No results within date range. AST No results within date range. TBILI No results within date range. TSH No results within date range. Lab Value Units Date High Low HCGQT No results within date range. UHCG No results within date range. HCG, BODY* No results within date range. ABORHD A POSI* no uni* 11/26/2017 ABSCREEN No results within date range. HBA1C: Hemoglobin A1C (%) Date Value 11/19/2017 8.1 07/30/2016 7.3 ) Patient accompanied by self Case Discussed with Dr Morris OPTIMIZATION STATUS: Patient optimization pending Labs IMPACT EKG IMPACT SIGNATURE: Mack Gibbs RN PATIENT NAME: Sam Vidales DATE: November 26, 2017 TIME: 10:58 AM PAGER/CONTACT #: HISTORY PHYSICAL Observed: 11/26/2017 Status: COMPLETED Source: [place] 8:17 AM [facility] REPOSITORY HNO ID: [id number] Author: Michael Rodríguez Service: (none) Author Type: Physician Type: HANDP Filed: 11/30/2017 8:51 AM Note Text: HISTORY AND PHYSICAL EXAMINATION (IMPACT) SERVICE DATE: 11/26/2017 SERVICE TIME: 8:17 AM PRIMARY CARE PHYSICIAN: Param Rivers MD CHIEF COMPLAINT/HISTORY OF PRESENT ILLNESS: Mr. Vidales is a 67 year old male referred to me for preoperative evaluation. My final recommendations will be communicated back to the requesting physician/surgeon by the way of the shared medical record. Referring Surgeon: Dr. Jess Leonardo Date of Surgery: 12/03/17 Planned Surgery/Procedure: L4-5 laminectomy Indication for Planned Surgery / Procedure: Leg pain and claudication Refer to Assessment section for details of any comorbidities. Patient is Able to Perform the Following Physical Activity: Climb a flight of stairs or walk up a hill (5.50 METs) Patient denies any chest pain or undue shortness of breath with the above physical activity. Significant Anesthesia Considerations: None. PAST MEDICAL/SURGICAL/FAMILY/SOCIAL HISTORY PAST MEDICAL HISTORY Diagnosis Date - Acute gastritis without mention of hemorrhage 09/04/05 - Anemia, unspecified - Aortic stenosis, mild 02/09/2016 - Atherosclerosis of [place] coronary artery of [place] heart without angina pectoris 02/09/2016 - Chronic airway obstruction, not elsewhere classified 09/15/2007 - CKD (chronic kidney disease) stage 3, GFR 30-59 ml/min 02/09/2016 - Hyperlipidemia - Hypertension - Hypertrophy of prostate without urinary obstruction and other lower urinary tract symptoms (LUTS) - Personal history of noncompliance with medical treatment, presenting hazards to health - S/P CABG x 4 08/06/2016 - Type 2 diabetes mellitus with stage 3 chronic kidney disease, with long-term current use of insulin (HCC) - Type II or unspecified type diabetes mellitus without mention of complication, not stated as uncontrolled - Unspecified hemorrhoids without mention of complication Hemorrhoids PAST SURGICAL HISTORY Procedure Laterality Date - CABG X (4) ARTERIAL GRAFTS 08/06/2016 - COLONOSCOP W/ OR W/O BRSH SPEC 01/27/04 Colonoscopy-repeat in - COLONOSCOP W/ OR W/O BRSH SPEC 04/12/16 Colonoscopy - EGD W/O BRSH SPECIMEN W/BX 09/04/05 - EGD W/O OR W/BRUSH/WASH 04/12/16 EGD - LEFT HEART CATH,PERCUTANEOUS 09/08/2015 Cardiac cath, L heart - PAST SURGICAL HISTORY OF 10/12/2015 unsuccessful PCI attempt FAMILY HISTORY Problem Relation Age of Onset - Heart Daughter LONG QT - Heart Daughter LONG QT - Allergies Daughter - Allergies Mother - Alzheimer's Disease Father - Hypertension Father - Coronary Artery Disease Father SOCIAL HISTORYSocial History Marital status: Spouse name: Bradley Years of education: Number of children: 2 Occupational History Occupation Employer Comment [employer] Social History Main Topics Smoking status: Former Smoker Packs/day: 0.00 Years: 30.00 Types: Cigarettes Quit date: 07/08/1995 Smokeless tobacco: Current User Types: Chew Comment: chewing Alcohol use: Yes 9.0 oz/week Cans of Beer (12oz): 6 per week Comment: Patient states stopped when given pain medications.approx. 09/11/2017 Drug use: No Social History Narrative [facility] for medications. MEDICATIONS/ALLERGIES Current Outpatient Prescriptions: carvedilol (COREG) 25 mg tablet Take 25 mg by mouth twice daily with meals. Disp: Rfl: insulin glargine (LANTUS U-100 INSULIN) 100 unit/mL injection Inject 22 Units subcutaneously daily at bedtime. [facility]. Disp: Rfl: 0 amLODIPine (NORVASC) 5 mg tablet Take 5 mg by mouth once daily. Disp: Rfl: MELOXICAM ORAL Take by mouth. Disp: Rfl: gabapentin (NEURONTIN) 300 mg capsule Take 4 capsules by mouth three times daily for 335 days. Disp: 360 capsule Rfl: 0 HYDROcodone-acetaminophen (NORCO) 5-325 mg per tablet Take 1 tablet by mouth three times daily. Disp: Rfl: 0 atorvastatin (LIPITOR) 20 mg tablet Take 1 tablet by mouth daily at bedtime. [facility]. Disp: Rfl: insulin aspart (NOVOLOG FLEXPEN) 100 unit/mL inpn 4 to 6 units as needed with a meal. [facility]. Disp: 5 Pen Rfl: 0 glipiZIDE (GLUCOTROL) 5 mg tablet Take 10 mg by mouth daily before dinner. [facility]. Disp: Rfl: aspirin, enteric coated (ASPIRIN, ENTERIC COATED) 81 mg EC tablet Take 162 mg by mouth once daily. Disp: Rfl: losartan (COZAAR) 100 mg tablet Take one tablet daily Disp: 30 tablet Rfl: 3 No current facility-administered medications for this visit. ALLERGIES Allergen Reactions - Environmental [Othe* Itching hayfever,sneezing,watery eyes REVIEW OF SYSTEMS General: No weight loss, malaise or fevers. Neuro: No history of TIA's, stroke, AIR TURNING MACHINE FEEDER tumor, impaired sensorium, hemiplegia, paraplegia or quadriplegia. No neurological symptoms or problems. Respiratory: Asthma, as a Kid. No SOB reported Cardiovascular: Hypertension requiring meds, Open Heart Surgery (CABG/Valve Replacement), CABG X4 in Jul 2016, in [facility]. No chest pain on exertion GI: No history of GI symptoms or problems. No history of esophageal varices, recent ascites, or ETOH greater than 2 drinks per day. : CKD Endocrine: Diabetes Mellitus on insulin, Diabetes Mellitus on oral agent, Diabetic Nephropathy, no other endocrine symptoms Hematology: on Asa 162 mg daily Oncology: No history of CA metastasis, chemo within 30 days, or radiotherapy within 90 days. No history of oncological symptoms or problems. Psych: No history of psychiatric symptoms or problems. Skin: Negative for lesions, rash, and itching. PHYSICAL EXAM VITALS: BP 114/63 Pulse 56 Temp (Src) 97.9 (Oral) Ht 5' 10 (1.78m) Wt 188 lb (85.3kg) SpO2 97% BMI 26.98 kg/(m2). General: Alert and oriented Skin: Normal color, no rash, no lesions. HEENT: EOM, pupils equal, round and reactive. Cardiovascular: Pulse regular. RUSB Murmur Lungs: Normal breath sounds, no wheezes or crackles. Abdomen: Soft, non-tender, no rigidity. Extremities: No deformity, no edema or tenderness, no joint swelling or clubbing. Neurological: Normal cognition and motor skills. Pulses: Carotid and radial pulses normal +2. ASSESSMENT Mr. Vidales is a 67 year old male referred to me for preoperative evaluation. Patient has the following medical comorbidities which might affect the perioperative course: - CAD of the [place] vessel. Status post CABG x 4, Surgery date 2016. Stable with no angina at rest or exertion.. - CKD, Stage 3, due to diabetes AND hypertension. - Type II Diabetes which is well controlled, with nephropathy with CKD. Patient is on oral medications and insulin. - Hypertension, well controlled. Patient was seen recently by his private tutors and teachers and a letter will be faxed to the surgeon office Patient's RCRI (Revised Cardiac Risk Index: CAD/CHF/Stroke or TIA/SCr>2/DM on Insulin/High Risk Surgery) score is 1 and is at low risk for major adverse cardiac events in the perioperative period. Diagnostic tests reviewed for today's visit: PENDING PLAN/RECOMMENDATIONS CARDIAC: Patient is at optimal cardiac condition for scheduled surgery / procedure. Restart Aspirin as early as possible after surgery. PULMONARY: Patient is at optimal Pulmonary status for scheduled surgery / procedure. ENDOCRINE: DIABETES: - Initiate [facility] Guidelines for perioperative diabetes management. Check finger stick glucose on the morning of surgery. - Patient has been instructed on Preoperative DM medication management. RENAL: - Suggest following in the postoperative period due to patient's pre-existing renal disease: Avoid nephrotoxic medications Dose medications on estimated serum creatinine clearance Monitor fluid balance closely and avoid hypotension. Avoid dehydration / volume depletion Monitor serum creatinine Patient is optimally prepared for surgery pending labs and Cardiology clearance letter from his private tutors and teachers to Dr Jeffery Patient Instructions: As per patient instructions section. General Preoperative/Medication/Fasting Instructions Preoperative Diabetes Medication Instructions I have discussed the above recommendations with the patient in detail, in skip and lay terms, and provided a written summary of instructions as needed. We have discussed that no surgery is without risk, but that the goal of preoperative assessment is to optimize that risk, and that was clearly understood by the patient. I have given ample opportunity for the patient to ask questions, and answered all questions to their stated satisfaction. SIGNATURE: Michael Rodríguez MD PATIENT NAME: Sam Vidales DATE: November 26, 2017 TIME: 8:17 AM Labs reviewed and within acceptable limit for surgery Patient is medically optimized for the planned surgery Repeat BMP on DOS Cardiology note scanned in chart Michael Rodríguez MD, FACP Staff, Dept of Hospital Medicine November 30, 2017 8:50 AM Pager:[phone] PROGRESS Observed: 11/26/2017 Status: COMPLETED Source: [place] 8:14 AM [facility] REPOS[facility] HNO ID: [id number] Author: Renny Phillips LPN Service: (none) Author Type: (none) Type: Progress Notes Filed: 11/26/2017 8:49 AM Note Text: Sam Vidales is a 67 year old male here today for visit in [facility] Referring Surgeon: Dr. LEONARDO Date of Surgery: 12/03/2017 Planned Surgery/Procedure: L4-5 laminectomy Allergies have been reviewed and verified. They include the following: Environmental [Other] Social History Substance Use Topics - Smoking status: Former Smoker Years: 30 Types: Cigarettes Quit date: 07/08/1995 - Smokeless tobacco: Current User Types: Chew Comment: chewing - Alcohol use 9.0 oz/week 6 Cans of Beer (12oz) per week Comment: Patient states stopped when given pain medications.approx. 09/11/2017 Medications reviewed and updated: Yes Renny Phillips LPN CONFIRM BLOOD TYPE Collected: 11/26/2017 Status: F Source: [place] 7:50 AM [facility] REPOSITORY TYPE CODE TESTS RESULT OUT OF REFERENCE UNITS RANGE LAB %ABR A ABO/RH(D) POSITIVE Performed By: #### CONABO #### [facility] [address] [place], [place] [address] CBC Collected: 11/26/2017 Status: F Source: [place] 7:49 AM [facility] REPOSITORY TYPE CODE TESTS RESULT OUT OF REFERENCE UNITS RANGE LAB WBC 3.70-11.00 k/uL WBC 5.68 LAB RBC 4.20-6.00 m/uL RBC 4.21 LAB HGB 13.0-17.0 g/dL Low Hemoglobin 12.9 LAB HCT 39.0-51.0 % Hematocrit 39.9 LAB MCV 80.0-100.0 fL MCV 94.8 LAB MCH 26.0-34.0 pG MCH 30.6 LAB MCHC 30.5-36.0 g/dL MCHC 32.3 LAB RDWCV 11.5-15.0 % RDW-CV 12.7 LAB PLTCT 150-400 k/uL Platelet Count 216 LAB MPV 9.0-12.7 fL MPV 9.9 LAB ABSNUC <0.01 k/uL Absolute nRBC <0.01 Performed By: #### CBC #### [facility] [address] [place], [place] [address] BASIC METABOLIC PANL Collected: 11/26/2017 Status: F Source: [place] 7:49 AM [facility] REPOSITORY TYPE CODE TESTS RESULT OUT OF REFERENCE UNITS RANGE LAB GLU 74-99 mg/dL High Glucose 224 Result Comment: The [place] Diabetes Association (ADA) provides guidance for cutoff values for fasting glucose and random glucose. The ADA defines fasting as no caloric intake for at least 8 hours. Fas ting plasma glucose results between 100 to 125 mg/dL indicate increased risk for diabetes (prediabetes). Fasting plasma glucose results greater than or equal to 126 mg/dL meet the criteria for diagnosis of diabetes. In the absence of unequivocal hyperglycemia, results should be confirmed by repeat testing. In a patient with classic symptoms of hyperglycemia or hyperglycemic crisis, random plasma glucose results greater than or equal to 200 mg/dL meet the criteria for diagnosis of diabetes. Reference: Standards of Medical Care in Diabetes 2016, [place] Diabetes Association. Diabetes Care. 2016.39(Suppl 1). LAB BUN 9-24 mg/dL BUN High 25 LAB CRET 0.73-1.22 mg/dL Creatinine High 1.61 LAB NA 136-144 mmol/L Sodium 137 LAB K 3.7-5.1 mmol/L Potassium High 5.4 LAB CL 97-105 mmol/L Chloride 102 LAB CO2 22-30 mmol/L CO2 25 LAB AGAP 9-18 mmol/L Anion Gap 10 LAB CA 8.5-10.2 mg/dL Calcium, Total 8.9 LAB GFRAA eGFR- Amer. 52 LAB GFRNAA . eGFR-All Other Races 43 Result Comment: eGFR (Estimated GFR) Units of measure: mL/min/1.73 meters squared eGFR is derived from the reexpressed MDRD Study equation using the following parameters: serum creatinine, age, gender and race. The creatinine assay has been calibrated to be traceable to IDMS. An eGFR <60 mL/min/1.73m2 for >3 months is consistent with chronic kidney disease. Refer to KDOQI guidelines for clinical interpretation. In patients with unstable renal function, e.g. those with acute kidney injury, the eGFR may not accurately reflect actual GFR. Performed By: #### BMP, LIPB #### [facility] [address] [place], [place] [address] LIPID PANEL, BASIC Collected: 11/26/2017 Status: F Source: [place] 7:49 AM [facility] REPOSITORY TYPE CODE TESTS RESULT OUT OF REFERENCE UNITS RANGE LAB CHOL <200 mg/dL Cholesterol 165 Result Comment: <200 mg/dL, Desirable 200-239 mg/dL, Borderline high >239 mg/dL, High LAB TRIGLY <150 mg/dL Triglyceride 75 Result Comment: <150 mg/dL, Normal 150-199 mg/dL, Borderline high 200-499 mg/dL, High >499 mg/dL, Very high LAB HDL >39 mg/dL HDL-Cholesterol 56 Result Comment: 40-59 mg/dL, Acceptable >59 mg/dL, High: Negative risk factor for coronary heart disease <40 mg/dL, Low: Positive risk factor for coronary heart disease LAB LDL <100 mg/dL LDL-Cholesterol 94 Result Comment: <100 mg/dL, Optimal 100-129 mg/dL, Near optimal/above optimal 130-159 mg/dL, Borderline high 160-189 mg/dL, High >189 mg/dL, Very high Secondary prevention optimal LDL Cholesterol levels are recommended to be < 70 mg/dL LAB NONHDL <130 mg/dL Non HDL Cholesterol 109 Result Comment: <130 mg/dL, Optimal 130-159 mg/dL, Near optimal/above optimal 160-189 mg/dL, Borderline high 190-219 mg/dL, High >219 mg/dL, Very high Secondary prevention optimal non HDL Cholesterol levels are recommended to be < 100 mg/dL LAB FT hrs Fasting Time 12 LAB VLDL <30 mg/dL VLDL Cholesterol 15 LAB TCHDL <5.10 TC:HDL Ratio 2.95 LAB LDLHDL <2.54 LDL:HDL Ratio 1.68 Result Comment: Reference: 1. National Cholesterol Education Program ATP III Guideline At-A-Glance Quick Desk Reference: National Heart, Lung, and Blood [place]. National Institutes of Health. 2001: NIH Publication No. 01-3305. 2. An International Atherosclerosis Society position paper: global recommendations for the management of dyslipidemia: executive summary, Atherosclerosis. 2014: 232(2):410-413. Performed By: #### BMP, LIPB #### [facility] [address] [place], [place] [address] TYPE AND SCR (30D) Collected: 11/26/2017 Status: F Source: [place] 7:48 AM [facility] REPOSITORY TYPE CODE TESTS RESULT OUT OF REFERENCE UNITS RANGE LAB %ABR A ABO/RH(D) POSITIVE LAB % Antibody NEG Screen Performed By: #### [id number] #### [facility] [address] [place], [place] [address] CNOV Observed: 11/26/2017 Status: COMPLETED Source: [place] 7:45 AM [facility] REPOSITORY Office Visit (IMPAMN) VARSHASAM ([id number]) 1950 M Date Time Provider Department 11/26/17 7:45 AM MICHAEL RODRÍGUEZ IMPAMN During your visit today, we recorded the following information about you: Temperature Pulse Blood pressure Weight 97.9 degrees 56/minute 114/63 85.3 kg Height 1.778 m Renny Phillips LPN 11/26/2017 8:49 AM Signed Sam Vidales is a 67 year old male here today for visit in [facility] Referring Surgeon: Dr. LEONARDO Date of Surgery: 12/03/2017 Planned Surgery/Procedure: L4-5 laminectomy Allergies have been reviewed and verified. They include the following: Environmental [Other] Social History Substance Use Topics - Smoking status: Former Smoker Years: 30.00 Types: Cigarettes Quit date: 07/08/1995 - Smokeless tobacco: Current User Types: Chew Comment: chewing - Alcohol use 9.0 oz/week 6 Cans of Beer (12oz) per week Comment: Patient states stopped when given pain medications.approx. 09/11/2017 Medications reviewed and updated: Yes Renny Rodríguez MD 11/30/2017 8:51 AM Addendum HISTORY AND PHYSICAL EXAMINATION (IMPACT) SERVICE DATE: 11/26/2017 SERVICE TIME: 8:17 AM PRIMARY CARE PHYSICIAN: Param Rivers MD CHIEF COMPLAINT/HISTORY OF PRESENT ILLNESS: Mr. Vidales is a 67 year old male referred to me for preoperative evaluation. My final recommendations will be communicated back to the requesting physician/surgeon by the way of the shared medical record. Referring Surgeon: Dr. Jess Leonardo Date of Surgery: 12/03/17 Planned Surgery/Procedure: L4-5 laminectomy Indication for Planned Surgery / Procedure: Leg pain and claudication Refer to Assessment section for details of any comorbidities. Patient is Able to Perform the Following Physical Activity: Climb a flight of stairs or walk up a hill (5.50 METs) Patient denies any chest pain or undue shortness of breath with the above physical activity. Significant Anesthesia Considerations: None. PAST MEDICAL/SURGICAL/FAMILY/SOCIAL HISTORY PAST MEDICAL HISTORY Diagnosis Date - Acute gastritis without mention of hemorrhage 09/04/05 - Anemia, unspecified - Aortic stenosis, mild 02/09/2016 - Atherosclerosis of [place] coronary artery of [place] heart without angina pectoris 02/09/2016 - Chronic airway obstruction, not elsewhere classified 09/15/2007 - CKD (chronic kidney disease) stage 3, GFR 30-59 ml/min 02/09/2016 - Hyperlipidemia - Hypertension - Hypertrophy of prostate without urinary obstruction and other lower urinary tract symptoms (LUTS) - Personal history of noncompliance with medical treatment, presenting hazards to health - S/P CABG x 4 08/06/2016 - Type 2 diabetes mellitus with stage 3 chronic kidney disease, with long-term current use of insulin (HCC) - Type II or unspecified type diabetes mellitus without mention of complication, not stated as uncontrolled - Unspecified hemorrhoids without mention of complication Hemorrhoids PAST SURGICAL HISTORY Procedure Laterality Date - CABG X (4) ARTERIAL GRAFTS 08/06/2016 - COLONOSCOP W/ OR W/O BRSH SPEC 01/27/04 Colonoscopy-repeat in - COLONOSCOP W/ OR W/O BRSH SPEC 04/12/16 Colonoscopy - EGD W/O BRSH SPECIMEN W/BX 09/04/05 - EGD W/O OR W/BRUSH/WASH 04/12/16 EGD - LEFT HEART CATH,PERCUTANEOUS 09/08/2015 Cardiac cath, L heart - PAST SURGICAL HISTORY OF 10/12/2015 unsuccessful PCI attempt FAMILY HISTORY Problem Relation Age of Onset - Heart Daughter LONG QT - Heart Daughter LONG QT - Allergies Daughter - Allergies Mother - Alzheimer's Disease Father - Hypertension Father - Coronary Artery Disease Father SOCIAL HISTORYSocial History Marital status: Spouse name: Bradley Years of education: Number of children: 2 Occupational History Occupation Employer Comment [employer] Social History Main Topics Smoking status: Former Smoker Packs/day: 0.00 Years: 30.00 Types: Cigarettes Quit date: 07/08/1995 Smokeless tobacco: Current User Types: Chew Comment: chewing Alcohol use: Yes 9.0 oz/week Cans of Beer (12oz): 6 per week Comment: Patient states stopped when given pain medications.approx. 09/11/2017 Drug use: No Social History Narrative [facility] for medications. MEDICATIONS/ALLERGIES Current Outpatient Prescriptions: carvedilol (COREG) 25 mg tablet Take 25 mg by mouth twice daily with meals. Disp: Rfl: insulin glargine (LANTUS U-100 INSULIN) 100 unit/mL injection Inject 22 Units subcutaneously daily at bedtime. [facility]. Disp: Rfl: 0 amLODIPine (NORVASC) 5 mg tablet Take 5 mg by mouth once daily. Disp: Rfl: MELOXICAM ORAL Take by mouth. Disp: Rfl: gabapentin (NEURONTIN) 300 mg capsule Take 4 capsules by mouth three times daily for 335 days. Disp: 360 capsule Rfl: 0 HYDROcodone-acetaminophen (NORCO) 5-325 mg per tablet Take 1 tablet by mouth three times daily. Disp: Rfl: 0 atorvastatin (LIPITOR) 20 mg tablet Take 1 tablet by mouth daily at bedtime. [facility]. Disp: Rfl: insulin aspart (NOVOLOG FLEXPEN) 100 unit/mL inpn 4 to 6 units as needed with a meal. [facility]. Disp: 5 Pen Rfl: 0 glipiZIDE (GLUCOTROL) 5 mg tablet Take 10 mg by mouth daily before dinner. [facility]. Disp: Rfl: aspirin, enteric coated (ASPIRIN, ENTERIC COATED) 81 mg EC tablet Take 162 mg by mouth once daily. Disp: Rfl: losartan (COZAAR) 100 mg tablet Take one tablet daily Disp: 30 tablet Rfl: 3 No current facility-administered medications for this visit. ALLERGIES Allergen Reactions - Environmental [Othe* Itching hayfever,sneezing,watery eyes REVIEW OF SYSTEMS General: No weight loss, malaise or fevers. Neuro: No history of TIA's, stroke, [employer] tumor, impaired sensorium, hemiplegia, paraplegia or quadriplegia. No neurological symptoms or problems. Respiratory: Asthma, as a Kid. No SOB reported Cardiovascular: Hypertension requiring meds, Open Heart Surgery (CABG/Valve Replacement), CABG X4 in Jul 2016, in [facility]. No chest pain on exertion GI: No history of GI symptoms or problems. No history of esophageal varices, recent ascites, or ETOH greater than 2 drinks per day. : CKD Endocrine: Diabetes Mellitus on insulin, Diabetes Mellitus on oral agent, Diabetic Nephropathy, no other endocrine symptoms Hematology: on Asa 162 mg daily Oncology: No history of CA metastasis, chemo within 30 days, or radiotherapy within 90 days. No history of oncological symptoms or problems. Psych: No history of psychiatric symptoms or problems. Skin: Negative for lesions, rash, and itching. PHYSICAL EXAM VITALS: BP 114/63 Pulse 56 Temp (Src) 97.9 (Oral) Ht 5' 10 (1.78m) Wt 188 lb (85.3kg) SpO2 97% BMI 26.98 kg/(m2). General: Alert and oriented Skin: Normal color, no rash, no lesions. HEENT: EOM, pupils equal, round and reactive. Cardiovascular: Pulse regular. RUSB Murmur Lungs: Normal breath sounds, no wheezes or crackles. Abdomen: Soft, non-tender, no rigidity. Extremities: No deformity, no edema or tenderness, no joint swelling or clubbing. Neurological: Normal cognition and motor skills. Pulses: Carotid and radial pulses normal +2. ASSESSMENT Mr. Vidales is a 67 year old male referred to me for preoperative evaluation. Patient has the following medical comorbidities which might affect the perioperative course: - CAD of the [place] vessel. Status post CABG x 4, Surgery date 2016. Stable with no angina at rest or exertion.. - CKD, Stage 3, due to diabetes AND hypertension. - Type II Diabetes which is well controlled, with nephropathy with CKD. Patient is on oral medications and insulin. - Hypertension, well controlled. Patient was seen recently by his private tutors and teachers and a letter will be faxed to the surgeon office Patient's RCRI (Revised Cardiac Risk Index: CAD/CHF/Stroke or TIA/SCr>2/DM on Insulin/High Risk Surgery) score is 1 and is at low risk for major adverse cardiac events in the perioperative period. Diagnostic tests reviewed for today's visit: PENDING PLAN/RECOMMENDATIONS CARDIAC: Patient is at optimal cardiac condition for scheduled surgery / procedure. Restart Aspirin as early as possible after surgery. PULMONARY: Patient is at optimal Pulmonary status for scheduled surgery / procedure. ENDOCRINE: DIABETES: - Initiate [facility] Guidelines for perioperative diabetes management. Check finger stick glucose on the morning of surgery. - Patient has been instructed on Preoperative DM medication management. RENAL: - Suggest following in the postoperative period due to patient's pre-existing renal disease: Avoid nephrotoxic medications Dose medications on estimated serum creatinine clearance Monitor fluid balance closely and avoid hypotension. Avoid dehydration / volume depletion Monitor serum creatinine Patient is optimally prepared for surgery pending labs and Cardiology clearance letter from his private tutors and teachers to Dr Jeffery Patient Instructions: As per patient instructions section. General Preoperative/Medication/Fasting Instructions Preoperative Diabetes Medication Instructions I have discussed the above recommendations with the patient in detail, in skip and lay terms, and provided a written summary of instructions as needed. We have discussed that no surgery is without risk, but that the goal of preoperative assessment is to optimize that risk, and that was clearly understood by the patient. I have given ample opportunity for the patient to ask questions, and answered all questions to their stated satisfaction. SIGNATURE: Michael Rodríguez MD PATIENT NAME: Sam Vidales DATE: November 26, 2017 TIME: 8:17 AM Labs reviewed and within acceptable limit for surgery Patient is medically optimized for the planned surgery Repeat BMP on DOS Cardiology note scanned in chart Michael Rodríguez MD, FACP Staff, Dept of Hospital Medicine November 30, 2017 8:50 AM Pager:[phone] Michael Rodríguez MD 11/26/2017 8:43 AM Signed [facility] Patient Instructions for Surgery FOOD INSTRUCTIONS: NO solid food or non-clear liquids for 8 hours prior to the arrival time for your surgery. Unless you are instructed otherwise, you are allowed to drink up to 12 ounces of clear liquids (e.g. water, black tea/coffee, fruit juice without pulp, Vinh Isabel, etc.) up until 2 hours prior to the arrival time for surgery. MEDICATION INSTRUCTIONS: Prior to Surgery: Do not take the following medications for 7 days prior to surgery: - any NSAID's (e.g. Motrin, Aleve, Arthrotec, Naproxen,etc) - any herbal preparations - Aspirin or aspirin containing products - Plavix Do not take any Vitamin E / multivitamins for 10-14 days before surgery You are allowed to take Tylenol if needed until the day of surgery. Please check with Dr Mark regarding stopping the aspirin as requested by your surgeon MEDICATION INSTRUCTIONS: Day/Morning of Surgery: The following medications should be taken with sips of water: Coreg,Amlodipine,Neurontin Tylenol, if needed for pain, can be taken on morning of surgery. Opiates (percocet, vicodin, MS contin, darvocet, ultram,etc), if needed for pain, can be taken on morning of surgery. DIABETES MANAGEMENT INSTRUCTIONS: Eat a usual diet until the day prior to surgery unless indicated by your surgeon/physician. If your blood sugar is below 70 mg/dl at any time, treat with ? cup of apple juice or vinh isabel, or 4 glucose tabs or 1 tube of oral glucose gel. MEDICATION INSTRUCTIONS: Prior to Surgery: ? Continue all diabetic pills as scheduled including the evening prior to surgery. MEDICATION INSTRUCTIONS: Day/Morning of Surgery: ? Do not take your Diabetic pills. ? Do not take any injections like symlin, byetta or mealtime insulin. If you have any questions or concerns regarding today's visit please do not hesitate to contact the [facility] center at [phone] or [phone], ext [phone]. Signature: Michael Rodríguez MD Date: November 26, 2017 Referring Provider: JESS LEONARDO [[id number]] Allergies As of Date: 11/26/2017 Noted Allergy Reaction environmental [Other] 08/05/2006 9 - Itching Comments: hayfever,sneezing,watery eyes Date Reviewed: 11/26/2017 Reviewed by: Mack Gibbs RN - Fully Assessed Primary Visit Diagnosis:Essential hypertension [I10] Other Visit Diagnoses:Pre-operative examination [Z01.818] Type 2 diabetes mellitus with diabetic nephropathy, with long-term current use of insulin (HCC) [E11.21, Z79.4] Claudication (HCC) [I73.9] Hx of CABG [Z95.1] Order(s):insulin glargine (LANTUS U-100 INSULIN) 100 unit/mL injectionInject 22 Units subcutaneously daily at bedtime. [facility] Administration.Disp: Rfl: 0 Prescriptions as of 11/26/2017 Sig: CARVEDILOL 25 MG TABLET Take 25 mg by mouth twice susie* INSULIN GLARGINE (U-100) 100 * Inject 22 Units subcutaneousl* AMLODIPINE 5 MG TABLET Take 5 mg by mouth once daily. MELOXICAM ORAL Take by mouth. GABAPENTIN 300 MG CAPSULE Take 4 capsules by mouth thre* HYDROCODONE 5 MG-ACETAMINOPHE* Take 1 tablet by mouth three * ATORVASTATIN 20 MG TABLET Take 1 tablet by mouth daily * INSULIN ASPART U-100 100 UNI* 6 - 12 units as needed with a* GLIPIZIDE 5 MG TABLET Take 10 mg by mouth daily bef* ASPIRIN 81 MG TABLET,DELAYED * Take 162 mg by mouth once susie* LOSARTAN 100 MG TABLET Take one tablet daily Medication notes this encounter HYDROCODONE 5 MG-ACETAMINOPHEN 325 MG TABLET >> Renny Phillips LPN 11/26/2017 8:20 AM >> RENNY PHILLIPS LPN SatNovember 26, 2017 8:20 AM Problem List As Of Date 11/26/2017 Noted Resolved Type 2 diabetes mellitus with stage 3 chronic k* Other and Unspecified Hyperlipidemia [E78.5] 01/27/2010 BPH without urinary obstruction [N40.0] Unspecified hemorrhoids without mention of comp* 02/09/2016 More... Anemia, unspecified [D64.9] 02/09/2016 Acute gastritis without mention of hemorrhage [*INVALID FOR*02/09/2016 PAIN JOINT, KNEE [M25.569] INVALID FOR*02/09/2016 Labyrinthitis, unspecified [H83.09] INVALID FOR*02/09/2016 Chronic obstructive pulmonary disease with acut*INVALID FOR* Hyperlipidemia [E78.5] INVALID FOR* Hearing loss [H91.90] INVALID FOR* Overweight (BMI 25.0-29.9) [E66.3] INVALID FOR* Undiagnosed cardiac murmurs [R01.1] INVALID FOR*02/09/2016 Atherosclerosis of [place] coronary artery of na*INVALID FOR* CKD (chronic kidney disease) stage 3, GFR 30-59*INVALID FOR* Aortic stenosis, mild [I35.0] INVALID FOR* Colon cancer screening [Z12.11] INVALID FOR*04/12/2016 S/P CABG x 4 [Z95.1] INVALID FOR* Lumbar stenosis with neurogenic claudication [M*INVALID FOR* More... Other instructions from your clinician: [facility] Patient Instructions for Surgery FOOD INSTRUCTIONS: NO solid food or non-clear liquids for 8 hours prior to the arrival time for your surgery. Unless you are instructed otherwise, you are allowed to drink up to 12 ounces of clear liquids (e.g. water, black tea/coffee, fruit juice without pulp, Vinh Isabel, etc.) up until 2 hours prior to the arrival time for surgery. MEDICATION INSTRUCTIONS: Prior to Surgery: Do not take the following medications for 7 days prior to surgery: - any NSAID's (e.g. Motrin, Aleve, Arthrotec, Naproxen,etc) - any herbal preparations - Aspirin or aspirin containing products - Plavix Do not take any Vitamin E / multivitamins for 10-14 days before surgery You are allowed to take Tylenol if needed until the day of surgery. Please check with Dr Mark regarding stopping the aspirin as requested by your surgeon MEDICATION INSTRUCTIONS: Day/Morning of Surgery: The following medications should be taken with sips of water: Coreg,Amlodipine,Neurontin Tylenol, if needed for pain, can be taken on morning of surgery. Opiates (percocet, vicodin, MS contin, darvocet, ultram,etc), if needed for pain, can be taken on morning of surgery. DIABETES MANAGEMENT INSTRUCTIONS: Eat a usual diet until the day prior to surgery unless indicated by your surgeon/physician. If your blood sugar is below 70 mg/dl at any time, treat with ? cup of apple juice or vinh isabel, or 4 glucose tabs or 1 tube of oral glucose gel. MEDICATION INSTRUCTIONS: Prior to Surgery: ? Continue all diabetic pills as scheduled including the evening prior to surgery. MEDICATION INSTRUCTIONS: Day/Morning of Surgery: ? Do not take your Diabetic pills. ? Do not take any injections like symlin, byetta or mealtime insulin. If you have any questions or concerns regarding today's visit please do not hesitate to contact the [facility] at [phone] or [phone], ext [phone]. Signature: Michael Rodríguez MD Date: November 26, 2017 Prescriptions ordered this encounter Disp Refills Start End INSULIN GLARGINE (U-100) 100 UNIT/ML* 0 11/26/2017 Class: Med Update Route: SUBCUTANEOUS Sig: Inject 22 Units subcutaneously daily at bedtime. [facility]. Medications Discontinued During This Encounter carvedilol (COREG) 3.125 mg tablet 02/09/2016 11/26/2017 Class: Historical Med Route: ORAL Sig: Take 1 tablet by mouth twice daily with meals. Disc: Dosage adjustment insulin glargine (LANTUS) 100 unit/m* 0 02/09/2016 11/26/2017 Class: Historical Med Route: SUBCUTANEOUS Sig: Inject 12-20 Units subcutaneously daily at bedtime. [facility]. Disc: Reason for discontinue is not on file. FERROUS GLUCONATE 324 MG (36 MG IRON* 0 01/27/2010 11/26/2017 Class: Historical Med Route: ORAL Sig: Take one(1) tablet three times daily. WITH FOOD Disc: Discontinued by Patient metFORMIN (GLUCOPHAGE) 500 mg tablet 60 t* 11 02/09/2016 11/26/2017 Class: Historical Med Route: ORAL Sig: Take 1 tablet by mouth twice daily with meals. Takes as needed for heavy meals. [facility]. Disc: Discontinued by another Health Care Provider traMADol (ULTRAM) 50 mg tablet 40 t* 0 09/20/2016 11/26/2017 Class: Call Rx Route: ORAL Sig: Take 1 tablet by mouth every 8 hours as needed for Pain (use for moderate to severe pain only). Disc: Discontinued by another Health Care Provider Encounter Status:Closed by MICHAEL RODRÍGUEZ MD on 11/26/17 ECG COMPLETE W Observed: 11/26/2017 Status: F Source: [place] INTERPRETATION 7:28 AM [facility] REPOS[facility]ORY NAME : SAM VIDALES PID : [id number] : 1950 Gender : Male Race : ORD : [id number] Procedure Date : Nov 26 2017 07:28:28 Edit Date : Dec 30 2017 10:02:18 Diagnosis:SINUS BRADYCARDIA NONSPECIFIC ST AND T WAVE ABNORMALITY PROLONGED QT INTERVAL OR TU FUSION, CONSIDER HYPOKALEMIA ABNORMAL ECG Confirmed by TANIA GREGG M.D. ([id number]) on 12/30/2017 9:59:40 AM Ventricular Rate : 58 BPM Atrial Rate : 58 BPM P-R Interval : 188 ms QRS Duration : 78 ms Q-T Interval : 490 ms QTC Calculation(Bezet) : 481 ms P Raton : 52 degrees R Raton : -26 degrees T Raton : 92 degrees Test Reason : Location : 119 : A17 A17 Overread By : TANIA GREGG M.D. Edited By : TANIA GREGG M.D. Referred By : PARESH PENNINGTON Acquired by : ANYA NICOLE CARDIOLOGY VISIT Observed: 11/22/2017 Status: F Source: [place] REPORT 2:15 PM [facility] REPOSITORY [facility] [address] [place] [address] OFFICE VISIT Date of Service: 11/22/17 MR#: [id number] Acct: [id number] Name: SAM VIDALES Rep #: [id number] : 1950 Provider: Lavell Pinon MD Age/Sex: 67/M Location: [facility] [place] [facility] Status: Signed HPI HPI Chief Complaint: Routine f/u Details: Referring Physician: Dr. Param Rivers This is a 66-year-old gentleman that presents here today for a cardiovascular follow-up. He has a history of coronary artery disease with aortic stenosis, hypertension, hyperlipidemia and diabetes. Patient had a heart catheterization in September 2015 which demonstrated 80% stenosis in the proximal to mid LAD, 70% stenosis in the proximal first diagonal, chronic total occlusion of the proximal first obtuse marginal artery, 60% stenosis in the proximal left circumflex. Fractional flow reserve of the proximal to mid circumflex artery was 0.87. Good collateral vessels from lateral second diagonal to first obtuse marginal were present. He was recommended that patient be considered for bypass surgery of the diagonal electively. And in the meantime been treated with optimal medical therapy. He had an echocardiogram done in August 2015 which demonstrated mild concentric LVH with an estimated ejection fraction of 65%. Stage I diastolic dysfunction. Right ventricular systolic pressure 25 mmHg. Moderate to severe thickening of a non- coronary cusp of aortic valve. Moderate aortic stenosis. Patient was referred to Dr. Bruno at that time, patient opted not to undergo surgery at that time. He had multiple questions and wanted to wait. He was previously in to see Dr. Bruno and had an echocardiogram done. Echocardiogram demonstrated normal left ventricular size and systolic function with no regional wall motion abnormalities. Ejection fraction 56%. Mild to moderate ventricular hypertrophy. Stage I diastolic dysfunction. Anatomy of the aortic valve was difficult to determine. Valve appears to at least be functionally bicuspid. Heavy calcification noted. Peak and mean transvalvular gradients are 32 and 15 mmHg. Estimated aortic valve area is 1.1 cm . Trivial aortic insufficiency. Moderate aortic stenosis. he decided to hold off on bypass surgery at that time. Pt then decided to see Dr. Bruno recently for continued symptoms of chest pain. He stated that for the first few minutes when he exercises he has chest discomfort to the left side of his chest. These symptoms last 5-10 minutes. After that he he can increase his walking speed. He is able to walk 3.8 miles an hour for 3-6 miles. He walks every day. He was also able to golf last year. He would walk 18 holes of golf. He does not have any palpitations. He does not near syncope/syncope. He does not have any edema. He feels that he is just starting to get his DM under control. Although he sts that when he recently restarted his metformin and his weight increased by 10 lbs. He would like to see Endrocrine. Dr. Bruno had requested that he have a right and left heart cath done to reasses his anatomy. Per pt he states that he does not think that he will need his valve done. this was repeated on 07/24/16 which demonstrated normal right heart pressures, normal wedge pressure, cardiac output of 4.2, EF of 65%, mild aortic stenosis with a peak to peak gradient of 14 mmHg, no evidence of aortic insufficiency, severe left main, LAD occluded, obtuse marginal #1 and moderate stenosis of the left circumflex. The patient finally underwent successful multivessel bypass surgery by Dr. Bruno 08/06/16. He did not undergo aortic valve replacement. He received a VALVERDE to the LAD, a free right internal mammary artery to OM #1 as a Y graft off of the left internal mammary artery, and SVG to the OM #2,and SVG to the posterior lateral branch. He is now here in follow-up. Recent lipid profile demonstrates: Chol: 148 Tri: 78 HDL: 53 LDL:79 VLDL: 16- he does have these done at the [facility]. patient was doing well at cardiac rehab until he injured his back on a rowing machine. He has been undergoing physical therapy under the guidance of Dr. Antwan Sánchez with minimal improvement. Unfortunately, it appears he requires spinal stenosis surgery at the end of November 2017. He is here for cardiac risk stratification. Apparently he was on amlodipine, but cannot recall being on it and is now off of amlodipine. He denies any chest pain, angina, shortness of breath or dyspnea on exertion. He is taking and tolerating his other medicines well. In office today's blood pressure is 182/80, pulse is 60 and regular. His physical exam Is as below. EKG Dictated11/14/16 demonstrates normal sinus rhythm, normal axis, normal intervals, nonspecific diffuse ST segment changes. Lipids as of 08/17/15 showed HDL of 53 and LDL of 79. Intake Vital Signs11/22/17 Height 5 ft 9 in Intake Visit Reasons: 6 M FU Allergies lisinopril Allergy (Mild, Verified 11/22/17 13:51) unknown Medications Atorvastatin Calcium [Lipitor] 20 mg PO QHS 09/08/15 [History Confirmed 11/22/17] Insulin Aspart [Novolog Flexpen (BKC)] 0 units SC TIDCM 09/08/15 [History Confirmed 11/22/17] Insulin Glargine,Hum.rec.anlog [Lantus] 0 unit SQ TID 09/08/15 [History Confirmed 11/22/17] Losartan Potassium [Cozaar] 100 mg PO DAILY 09/08/15 [History Confirmed 11/22/17] glipiZIDE [Glucotrol] 5 mg PO DAILY@0730 09/08/15 [History Confirmed 11/22/17] Aspirin [Aspirin, Baby] 162 mg PO DAILY@0800 07/26/16 [History Confirmed 11/22/17] hydrochlorothiazide 50 mg tablet 50 mg PO QDAY #30 tab 07/11/17 [Rx Confirmed 11/22/17] carvedilol 6.25 mg tablet 6.25 mg PO BID #180 tab 09/24/17 [Rx Confirmed 11/22/17] amlodipine 5 mg tablet 5 mg PO QDAY #30 tab 11/22/17 [Rx Confirmed 11/22/17] carvedilol 25 mg tablet 25 mg PO BID 11/22/17 [History Confirmed 11/22/17] [facility] Medical History Non-rheumatic aortic stenosis (Chronic) Atherosclerosis of coronary artery of [place] heart without angina pectoris (Chronic) Hyperlipidemia (Chronic) Hypertension (Chronic) DDD (degenerative disc disease), lumbar (Chronic) Spinal stenosis of lumbar region without neurogenic claudication (Chronic) Other intervertebral disc degeneration, lumbar region (Acute) Other intervertebral disc displacement, lumbosacral region (Acute) Other spondylosis, lumbar region (Acute) Spondylosis of lumbosacral region without myelopathy or radiculopathy (Acute) Spondylosis without myelopathy or radiculopathy, lumbar region (Acute) Type 2 diabetes mellitus without complications (Chronic) Surgical History H/O coronary artery bypass surgery (Chronic 08/06/16) Family History Sister Heart disease Daughter Heart disease Social History Smoking Status: Former smoker ROS Const Const: Negative for fatigue, weakness, difficulty sleeping, frequent falls, headache(s) or excessive sweating Eyes Eyes: Negative for loss of peripheral vision, transient loss of vision, blurry vision or double vision ENT ENT: Negative for headache(s), dizziness, Nosebleed/epistaxis or balance problems Cardio Chest Pain: No Edema: None Muscle aches with walking: None Resp Respiratory: Negative for SOB with activity, SOB at rest, SOB orthopnea\SOB lying down or paroxysmal nocturnal dyspnea GI GI: Negative nausea or heartburn : Negative for hematuria Musc Musc: Positive for joint pain (Chronic back pain); negative for muscle aches/ myalgia, muscle weakness or balance problems Skin Skin: Negative non-healing lesions, unusual bruising or rash Neuro Neuro: Negative for weakness, frequent falls, blurry vision, headache(s), dizziness, lightheadedness, orthostatic symptoms or double vision Lang Hematologic/Lymphatic: Negative for easy bruising Endo Endo: Negative for fatigue, excessive sweating or increased thirst/drinking Psych Psych: Negative for anxiety or depression Allergy Allergy/Immunology: Negative for hives, Negative for rash Cardiology Exam Const Appearance: cooperative, healthy appearing and no acute distress Nutritional Appearance: well nourished Orientation: alert, oriented x3 and oriented to person Head Head: normal to inspection, atraumatic and normocephalic Nose: external nose normal Face and Sinus: face symmetric Mouth: oral mucosae normal Eyes General: appearance normal, both eyes and all related structures Eyelids: eyelids normal Conjunctivae: conjunctivae normal Pupils: PERRL and normal by confrontation EOM: EOM intact bilaterally Neck Neck: normal visual inspection and full ROM Carotids: normal carotid upstroke Chest Chest inspection: normal inspection of the chest Auscultation: Bilateral: Clear to Auscultation Cardio Palpation: normal PMI Rate: regular rate Rhythm: regular rhythm Heart sounds: S1 normal and S2 normal GI GI: normal to inspection, no hepatosplenomegaly and bowel sounds present Neuro General: alert, oriented x3, awake, CN's II-XI intact bilaterally and moves all extremities Skin Skin: no rashes or lesions noted Extremities Pulses: Normal: Right Femoral Pulse, Left Femoral Pulse, Right Dorsalis Pedis Pulse, Left Dorsalis Pedis Pulse, Right Posterior Tibial Pulse, Left Posterior Tibial Pulse, Right Radial Pulse, Left Radial Pulse Lower Extremity Edema: None: Bilateral Psych Psychological: normal affect Assessment AND Plan 1. Atherosclerosis of coronary artery of [place] heart without angina pectoris I25.10 CABG x 4 VALVERDE-LAD, Free GWEN-OM1 Y graft off VALVERDE, SVG-OM2, SVG-PLB 08/06/2016 Plan 1. Coronary artery disease: No exertional anginal symptoms at this time. No indication for any repeat stress testing. His recent bypass surgery is less than 1 year ago, and he feels much better and is graduated cardiac rehab. I would however recommend restarting his amlodipine at 5 mill grams p.o. daily, and repeating a blood pressure check in 1 week's time. If his blood pressure still not optimized would recommend increasing his amlodipine at 10 mg a day. His most recent echocardiogram dated 07/12/17 showed an EF of 65%, and RVSP of 30 mmHg, possible fusion of the non-and left coronary cusps and mild to moderate aortic stenosis with a peak/mean gradient of 28 and 15 mmHg respectively. Do not believe he requires repeat echo at this time. 2. Hyperlipidemia E78.5 Plan 2. Hyperlipidemia: We are awaiting a repeat lipid profile. This is managed by the [facility]. Continue Lipitor. 3. Preop cardiovascular exam Z01.810 Plan 3. Preoperative stratification: The patient is at low risk for noncardiac surgery, and does not require repeat stress test or echocardiogram at this time. He is asymptomatic and is less than 1 year from his bypass surgery. Recommended he continue his baby aspirin, Coreg, hydrochlorothiazide, losartan. He will start amlodipine 5 mill grams p.o. daily, and repeat a blood pressure check in 1 week's time. If his blood pressure still not optimized we can increase his amlodipine to 10 mg a day. 4. Return office in 6 months This note was generated using a voice recognition system and there may be incorrect words, spelling or punctuation that were not noted when reviewing the office note prior to saving. Orders Orders: Plan Detail Other Medications New: Goals Decrease pain and inflammation as patient awaits surgery Barriers DDD Stenosis Follow Up +6M (Zi) +1 week (BP Check) Coding Level of Care Code Off vis,est,level 3 Diagnoses Atherosclerosis of coronary artery of [place] heart without angina pectoris I25.10 Hyperlipidemia E78.5 Preop cardiovascular exam Z01.810 Coding Level of Care Code Off vis,est,level 3 Diagnoses Atherosclerosis of coronary artery of [place] heart without angina pectoris I25.10 Hyperlipidemia E78.5 Preop cardiovascular exam Z01.810 11/22/17 1415 <Electronically signed by Lavell Pinon MD> Date [facility]ell Pinon [facility] Signature: Date (if applicable) CC: [facility] PROGRESS Observed: 11/20/2017 Status: COMPLETED Source: [place] 12:10 PM [facility] [place] REPOSITORY HNO ID: [id number] Author: Grecia Cunningham Cma Service: (none) Author Type: (none) Type: Progress Notes Filed: 11/25/2017 8:46 AM Note Text: PHMA TEAMLET DOCUMENTATION Provider Action/FYI: Please file labs and advise if wanting additional. [facility] I will call to find out. Pt. Has surgery scheduled for 12/03/17 for L4-5 Laminectomy. Can postpone outreach until surgery is completed and patient recovers. PSR Action/FYI: Teamlet has identified patient by name and date of . Team: Demetria Harris Holly, Helen, Myself ? Last Office Visit:Visit date not found ? Next Office Visit: Visit date not found ? Last BP/Labs: Blood Pressure: Last 3 Encounter BP Readings: Date: BP: 11/19/2017 152/67 10/07/2017 146/71 09/06/2016 122/78 Lipids: No results found for: CHOL No results found for: HDL LDL Chol, [place] (mg/dL) Date Value 11/16/2010 96 01/20/2010 77 No results found for: TG HGB A1C: Lab Results Component Value Date HBA1C 8.1 11/19/2017 HBA1C 7.3 07/30/2016 HBA1C 7.8 02/09/2016 TSH: No results found for: TSH) Care Gap: CKD DM Hyperlipidemia On cvd list Plan: ? Confirm PCP / Status ? Type of appointment needed: Physical - Patient has only seen Dr. Rivers one time and that was back in 02/09/2016. [facility] Due for labs if not getting them done elsewhere. Labs, HM and Immunization: Health Maintenance Due: DILATED RETINAL EXAM due on 04/21/2013 ABDOMINAL AORTIC ANEURYSM SCREENING TOPIC due on 2014 ADULT PREVNAR-13 due on 2014 PNEUMOVAX AGE 65 AND OVER WITH 5YR LOOKBACK(1) due on 04/25/2014 LDL due on 08/17/2016 - order pending URINE ALBUMIN CREATININE RATIO due on 12/05/2016 - order pending DIABETIC FOOT EXAM due on 02/11/2017- order pending Grecia Cunningham Cma CNCO Observed: 11/20/2017 Status: COMPLETED Source: [place] 12:00 AM [facility] REPOSITORY Letter Text Confidentiality Note: This message is intended for use only by the individual or entity to which it is addressed and may contain information that is privileged, confidential, and exempt from disclosure under applicable law. If the reader of this message is not the intended recipient or the employee or agent responsible for delivering the message to the intended recipient, you are hereby notified that any dissemination, distribution or copying of this communication is strictly prohibited. If you have received this communication in error please contact the sender immediately and destroy the material in its entirety, whether electronic or hard copy. Thank you. Visit us online at our award-winning [email or web address] for a complete listing of [facility] services, staff and locations from one of the country?s leading [facility]. [facility] [address] / [address] [place] [address] Jess Leonardo M.D. Complex Spinal Surgery Neurological Surgery Page 2 of 2 [facility] [place] [address] [place] [address] / [facility] Appt [phone] [facility] [place], [place] [address] Toll Free [phone] November 20, 2017 [address] [facility] [id number] Re: Sam Vidales CC #: [id number] : 1950 [address] [facility] [address] November 20, [address] Pinon with [facility] Your patient, Sam Vidales (: 48), is considering surgery with Dr Jess Leonardo at the [facility]. The proposed procedure is 12/03/17. We estimate the procedure will take 2 hours under general anesthesia. The patient will likely be in the hospital 1 day. Could you please provide us with your comments about cardiac clearance for this pt to have the proposed spine surgery. Please include: Copy of the most recent EKG (Patient will have updated EKG done with his pre op testing on 11/26/17 at the [facility]) Copy of the most recent Cardiology office note. Patient currently has an appointment scheduled with you for follow up on 11/22/17. Written statement indicating that the patient is/is not clear for surgery. Written statement regarding plan for stopping aspirin. Dr. Leonardo prefers his patients to stop taking blood thinners 7 days prior to surgery. Please fax back requested information to Attn: Dr. Leonardo at [phone] as soon as possible. Thank you for your assistance with this patient. Sincerely, Tucker Cortez RN in Dr. Jess Leonardo's office CNPTOUTREACH Observed: 11/20/2017 Status: COMPLETED Source: [place] 12:00 AM [facility] REPOSITORY Patient Outreach (INTMWS) SAM VIDALES ([id number]) 1950 M Date Time Provider Department 11/20/17 GRECIA CUNNINGHAM ([facility]) INTMWS During your visit today, we recorded the following information about you: Grecia Cunningham [facility] 11/25/2017 8:46 AM Signed PHMA TEAMLET DOCUMENTATION Provider Action/FYI: Please file labs and advise if wanting additional. [facility] I will call to find out. Pt. Has surgery scheduled for 12/03/17 for L4-5 Laminectomy. Can postpone outreach until surgery is completed and patient recovers. PSR Action/FYI: Teamlet has identified patient by name and date of . Team: Dr. Rivers, Demteria solano, Caren Robison, Myself ? Last Office Visit:Visit date not found ? Next Office Visit: Visit date not found ? Last BP/Labs: Blood Pressure: Last 3 Encounter BP Readings: Date: BP: 11/19/2017 152/67 10/07/2017 146/71 09/06/2016 122/78 Lipids: No results found for: CHOL No results found for: HDL LDL CholDevan (mg/dL) Date Value 11/16/2010 96 01/20/2010 77 No results found for: TG HGB A1C: Lab Results Component Value Date HBA1C 8.1 11/19/2017 HBA1C 7.3 07/30/2016 HBA1C 7.8 02/09/2016 TSH: No results found for: TSH) Care Gap: CKD DM Hyperlipidemia On cvd list Plan: ? Confirm PCP / Status ? Type of appointment needed: Physical - Patient has only seen Dr. Rivers one time and that was back in 02/09/2016. [facility] Due for labs if not getting them done elsewhere. Labs, HM and Immunization: Health Maintenance Due: DILATED RETINAL EXAM due on 04/21/2013 ABDOMINAL AORTIC ANEURYSM SCREENING TOPIC due on 2014 ADULT PREVNAR-13 due on 2014 PNEUMOVAX AGE 65 AND OVER WITH 5YR LOOKBACK(1) due on 04/25/2014 LDL due on 08/17/2016 - order pending URINE ALBUMIN CREATININE RATIO due on 12/05/2016 - order pending DIABETIC FOOT EXAM due on 02/11/2017- order pending Grecia Van Surgical Physician Assistant Allergies As of Date: 11/20/2017 Noted Allergy Reaction environmental [Other] 08/05/2006 9 - Itching Comments: hayfever,sneezing,watery eyes Date Reviewed: 11/19/2017 Reviewed by: Jessie Cho MA - Fully Assessed Reason for Visit: PHMA/Care Gap Outreach [3605] Primary Visit Diagnosis:Type 2 diabetes mellitus with stage 3 chronic kidney disease, with long-term current use of insulin (HCC) [E11.22, N18.3, Z79.4] Other Visit Diagnoses:Hyperlipidemia, unspecified hyperlipidemia type [E78.5] CKD (chronic kidney disease) stage 3, GFR 30-59 ml/min [N18.3] Order(s):ALBUMIN/CREAT RATIO RND UR [SQUACR] Order #: [id number] FUTURE BASIC METABOLIC PNL [SQBMP] Order #: [id number] FUTURE LIPID PANEL BASIC [SQLIPB] Order #: [id number] FUTURE Prescriptions as of 11/20/2017 Sig: GABAPENTIN 300 MG CAPSULE Take 4 capsules by mouth thre* HYDROCODONE 5 MG-ACETAMINOPHE* TRAMADOL 50 MG TABLET Take 1 tablet by mouth every * CARVEDILOL 3.125 MG TABLET Take 1 tablet by mouth twice * ATORVASTATIN 20 MG TABLET Take 1 tablet by mouth daily * METFORMIN 500 MG TABLET Take 1 tablet by mouth twice * INSULIN ASPART U-100 100 UNI* 4 to 6 units as needed with a* GLIPIZIDE 5 MG TABLET Take 10 mg by mouth daily bef* INSULIN GLARGINE (U-100) 100 * Inject 12-20 Units subcutaneo* ASPIRIN 81 MG TABLET,DELAYED * Take 162 mg by mouth once susie* LOSARTAN 100 MG TABLET Take one tablet daily FERROUS GLUCONATE 324 MG (36 * Take one(1) tablet three time* Problem List As Of Date 11/20/2017 Noted Resolved Type 2 diabetes mellitus with stage 3 chronic k* Other and Unspecified Hyperlipidemia [E78.5] 01/27/2010 BPH without urinary obstruction [N40.0] Unspecified hemorrhoids without mention of comp* 02/09/2016 More... Anemia, unspecified [D64.9] 02/09/2016 Acute gastritis without mention of hemorrhage [*INVALID FOR*02/09/2016 PAIN JOINT, KNEE [M25.569] INVALID FOR*02/09/2016 Labyrinthitis, unspecified [H83.09] INVALID FOR*02/09/2016 Chronic obstructive pulmonary disease with acut*INVALID FOR* Hyperlipidemia [E78.5] INVALID FOR* Hearing loss [H91.90] INVALID FOR* Overweight (BMI 25.0-29.9) [E66.3] INVALID FOR* Undiagnosed cardiac murmurs [R01.1] INVALID FOR*02/09/2016 Atherosclerosis of [place] coronary artery of na*INVALID FOR* CKD (chronic kidney disease) stage 3, GFR 30-59*INVALID FOR* Aortic stenosis, mild [I35.0] INVALID FOR* Colon cancer screening [Z12.11] INVALID FOR*04/12/2016 S/P CABG x 4 [Z95.1] INVALID FOR* Lumbar stenosis with neurogenic claudication [M*INVALID FOR* More... Encounter Status:Closed by GRECIA CUNNINGHAM CMA on 11/25/17 HEMOGLOBIN A1C Collected: 11/19/2017 Status: F Source: [place] 12:44 PM [facility] REPOSITORY TYPE CODE TESTS RESULT OUT OF REFERENCE UNITS RANGE LAB HGBA1C 4.3-5.6 % High Hemoglobin A1c 8.1 LAB HBA0 mg/dL Est. Average Glucose 186 Result Comment: eAG: (Estimated average glucose) is a calculated value from HgbA1c and is compliance representative of the average blood glucose level in the last 2-3 month period. Performed By: #### HBA1C #### [facility] [address] [place], [place] [address] PROGRESS Observed: 11/19/2017 Status: COMPLETED Source: [place] 11:23 AM [facility] REPOSITORY HNO ID: [id number] Author: Jess Leonardo Service: (none) Author Type: Physician Type: Progress Notes Filed: 11/21/2017 10:43 AM Note Text: SPINE SURGERY ESTABLISHED DATE OF SERVICE: 11/19/2017 DATE OF LAST VISIT: 10/07/2017 SUBJECTIVE: HPI:Sam Vidales is a 67 year old male presenting with partner. CC of BL LE pain and radiates in the back of legs Roughly one year PAIN EVALUATION 11/19/2017 Pain Score: 5 Pain Location: Leg-Left right leg Description: Cramping Duration Amount of Time: 10 Duration Units: Months Frequency: Continuous Intervention: Medication;Other: See comment;Relaxation;Exercise injections Pain Radiation: back of legs Aggravating Factors: walking Alleviating Factors: Sitting Pain Ratio: Pain in the leg(s) is greater than in the back PREVIOUS CONSERVATIVE TREATMENTS: Epidural Blocks: Date(s) 6 blocks AMBULATORY STATUS: Impaired Community Distances REVIEW OF SYSTEMS: GENERAL: No weight loss or malaise MUSCULOSKELETAL: Negative for joint pain, swelling or muscle pain NEURO: No history of headaches, syncope, paralysis, seizures or tremors MEDICATIONS: gabapentin (NEURONTIN) 300 mg capsule Take 4 capsules by mouth three times daily for 335 days. HYDROcodone-acetaminophen (NORCO) 5-325 mg per tablet traMADol (ULTRAM) 50 mg tablet Take 1 tablet by mouth every 8 hours as needed for Pain (use for moderate to severe pain only). carvedilol (COREG) 3.125 mg tablet Take 1 tablet by mouth twice daily with meals. atorvastatin (LIPITOR) 20 mg tablet Take 1 tablet by mouth daily at bedtime. [facility]. metFORMIN (GLUCOPHAGE) 500 mg tablet Take 1 tablet by mouth twice daily with meals. Takes as needed for heavy meals. [facility]. insulin aspart (NOVOLOG FLEXPEN) 100 unit/mL inpn 4 to 6 units as needed with a meal. [facility]. glipiZIDE (GLUCOTROL) 5 mg tablet Take 10 mg by mouth daily before dinner. [facility]. insulin glargine (LANTUS) 100 unit/mL injection Inject 12- 20 Units subcutaneously daily at bedtime. [facility]. aspirin, enteric coated (ASPIRIN, ENTERIC COATED) 81 mg EC tablet Take 162 mg by mouth once daily. losartan (COZAAR) 100 mg tablet Take one tablet daily FERROUS GLUCONATE 324 MG (36 MG IRON) TAB Take one(1) tablet three times daily. WITH FOOD OBJECTIVE: PHYSICAL EXAM: BP 152/67 Pulse 57 Resp 16 Ht 5' 5 (1.65m) Wt 177 lb (80.3kg) BMI 29.45 kg/(m2). GENERAL APPEARANCE: Well nourished, well developed, and no apparent distress. NEURO PSYCH: Patient oriented to person, place, and time. Mood pleasant. Benign affect. MUSCULOSKELETAL VISUAL INSPECTION CERVICAL: WNL THORACIC: WNL LUMBAR: WNL MOTOR: 5/5 in all muscle groups. SENSORY: Normal sensory exam GAIT: Normal. MRI shows Stenosis at L4/5 ASSESSMENT/PLAN No diagnosis found. Sam Vidales is clinically indicated and wishes to consider Lumbar Decompression surgery at L4/5. The risks, benefits, and anticipated outcomes of the procedure/treatment/test, the alternatives to the procedure/treatment/test and their risks and benefits, and the roles and tasks of the personnel to be involved were discussed with the patient or the patient?s personal compliance representative. The patient intends to call the office with a decison. Shared decision making occurred while obtaining informed consent. 1. No Orders Entered Today 2. Follow up: PRN SIGNATURE: Jess Leonardo MD PATIENT NAME: Sam Vidales DATE: November 19, 2017 TIME: 11:23 AM PAGER: [email or web address] Observed: 11/19/2017 Status: COMPLETED Source: [place] 10:40 AM [facility] REPOSITORY Office Visit (SPNSMN) SAM VIDALES ([id number]) 1950 M Date Time Provider Department 11/19/17 10:40 AM JESS LEONARDO SPMIGEULMN During your visit today, we recorded the following information about you: Pulse Respiration Blood pressure Weight 57/minute 16/minute 152/67 80.3 kg Height 1.651 m Jess Leonardo MD 11/21/2017 10:43 AM Signed [facility] ESTABLISHED DATE OF SERVICE: 11/19/2017 DATE OF LAST VISIT: 10/07/2017 SUBJECTIVE: HPI:Sam Vidales is a 67 year old male presenting with partner. CC of BL LE pain and radiates in the back of legs Roughly one year PAIN EVALUATION 11/19/2017 Pain Score: 5 Pain Location: Leg-Left right leg Description: Cramping Duration Amount of Time: 10 Duration Units: Months Frequency: Continuous Intervention: Medication;Other: See comment;Relaxation;Exercise injections Pain Radiation: back of legs Aggravating Factors: walking Alleviating Factors: Sitting Pain Ratio: Pain in the leg(s) is greater than in the back PREVIOUS CONSERVATIVE TREATMENTS: Epidural Blocks: Date(s) 6 blocks AMBULATORY STATUS: Impaired Community Distances REVIEW OF SYSTEMS: GENERAL: No weight loss or malaise MUSCULOSKELETAL: Negative for joint pain, swelling or muscle pain NEURO: No history of headaches, syncope, paralysis, seizures or tremors MEDICATIONS: gabapentin (NEURONTIN) 300 mg capsule Take 4 capsules by mouth three times daily for 335 days. HYDROcodone-acetaminophen (NORCO) 5-325 mg per tablet traMADol (ULTRAM) 50 mg tablet Take 1 tablet by mouth every 8 hours as needed for Pain (use for moderate to severe pain only). carvedilol (COREG) 3.125 mg tablet Take 1 tablet by mouth twice daily with meals. atorvastatin (LIPITOR) 20 mg tablet Take 1 tablet by mouth daily at bedtime. [facility]. metFORMIN (GLUCOPHAGE) 500 mg tablet Take 1 tablet by mouth twice daily with meals. Takes as needed for heavy meals. [facility]. insulin aspart (NOVOLOG FLEXPEN) 100 unit/mL inpn 4 to 6 units as needed with a meal. [facility]. glipiZIDE (GLUCOTROL) 5 mg tablet Take 10 mg by mouth daily before dinner. [facility]. insulin glargine (LANTUS) 100 unit/mL injection Inject 12- 20 Units subcutaneously daily at bedtime. [facility]. aspirin, enteric coated (ASPIRIN, ENTERIC COATED) 81 mg EC tablet Take 162 mg by mouth once daily. losartan (COZAAR) 100 mg tablet Take one tablet daily FERROUS GLUCONATE 324 MG (36 MG IRON) TAB Take one(1) tablet three times daily. WITH FOOD OBJECTIVE: PHYSICAL EXAM: BP 152/67 Pulse 57 Resp 16 Ht 5' 5 (1.65m) Wt 177 lb (80.3kg) BMI 29.45 kg/(m2). GENERAL APPEARANCE: Well nourished, well developed, and no apparent distress. NEURO PSYCH: Patient oriented to person, place, and time. Mood pleasant. Benign affect. MUSCULOSKELETAL VISUAL INSPECTION CERVICAL: WNL THORACIC: WNL LUMBAR: WNL MOTOR: 5/5 in all muscle groups. SENSORY: Normal sensory exam GAIT: Normal. MRI shows Stenosis at L4/5 ASSESSMENT/PLAN No diagnosis found. Sam Vidales is clinically indicated and wishes to consider Lumbar Decompression surgery at L4/5. The risks, benefits, and anticipated outcomes of the procedure/treatment/test, the alternatives to the procedure/treatment/test and their risks and benefits, and the roles and tasks of the personnel to be involved were discussed with the patient or the patient?s personal compliance representative. The patient intends to call the office with a decison. Shared decision making occurred while obtaining informed consent. 1. No Orders Entered Today 2. Follow up: PRN SIGNATURE: Jess Leonardo MD PATIENT NAME: Sam Vidales DATE: November 19, 2017 TIME: 11:23 AM PAGER: Referring Provider: SELF [[id number]] Allergies As of Date: 11/19/2017 Noted Allergy Reaction environmental [Other] 08/05/2006 9 - Itching Comments: hayfever,sneezing,watery eyes Date Reviewed: 11/19/2017 Reviewed by: Jessie Cho MA - Fully Assessed Reason for Visit: Established Patient [175] Primary Visit Diagnosis:Personal history of other endocrine, nutritional and metabolic disease [Z86.39] Other Visit Diagnosis:Anemia, unspecified type [D64.9] Order(s):HGB A1C [[id number]] Order #: [id number] FUTURE Prescriptions as of 11/19/2017 Sig: GABAPENTIN 300 MG CAPSULE Take 4 capsules by mouth thre* HYDROCODONE 5 MG-ACETAMINOPHE* TRAMADOL 50 MG TABLET Take 1 tablet by mouth every * CARVEDILOL 3.125 MG TABLET Take 1 tablet by mouth twice * ATORVASTATIN 20 MG TABLET Take 1 tablet by mouth daily * METFORMIN 500 MG TABLET Take 1 tablet by mouth twice * INSULIN ASPART U-100 100 UNI* 4 to 6 units as needed with a* GLIPIZIDE 5 MG TABLET Take 10 mg by mouth daily bef* INSULIN GLARGINE (U-100) 100 * Inject 12-20 Units subcutaneo* ASPIRIN 81 MG TABLET,DELAYED * Take 162 mg by mouth once susie* LOSARTAN 100 MG TABLET Take one tablet daily FERROUS GLUCONATE 324 MG (36 * Take one(1) tablet three time* Problem List As Of Date 11/19/2017 Noted Resolved Type 2 diabetes mellitus with stage 3 chronic k* Other and Unspecified Hyperlipidemia [E78.5] 01/27/2010 BPH without urinary obstruction [N40.0] Unspecified hemorrhoids without mention of comp* 02/09/2016 More... Anemia, unspecified [D64.9] 02/09/2016 Acute gastritis without mention of hemorrhage [*INVALID FOR*02/09/2016 PAIN JOINT, KNEE [M25.569] INVALID FOR*02/09/2016 Labyrinthitis, unspecified [H83.09] INVALID FOR*02/09/2016 Chronic obstructive pulmonary disease with acut*INVALID FOR* Hyperlipidemia [E78.5] INVALID FOR* Hearing loss [H91.90] INVALID FOR* Overweight (BMI 25.0-29.9) [E66.3] INVALID FOR* Undiagnosed cardiac murmurs [R01.1] INVALID FOR*02/09/2016 Atherosclerosis of [place] coronary artery of na*INVALID FOR* CKD (chronic kidney disease) stage 3, GFR 30-59*INVALID FOR* Aortic stenosis, mild [I35.0] INVALID FOR* Colon cancer screening [Z12.11] INVALID FOR*04/12/2016 S/P CABG x 4 [Z95.1] INVALID FOR* Lumbar stenosis with neurogenic claudication [M*INVALID FOR* More... Encounter Status:Closed by JESS LEONARDO MD on 11/21/17 [place] Observed: 11/19/2017 Status: COMPLETED Source: [place] 12:00 AM [facility] REPOS[facility] Telephone (SPNSMN) SAM VIDALES ([id number]) 1950 M Date Time Provider Department 11/19/17 JESS LEONARDO SPNSMN During your visit today, we recorded the following information about you: Tucker Cortez RN 11/20/2017 8:49 AM Signed Called to discuss scheduling surgery with patient. Patient would like first available date, so offered 12/03 with PAT on 11/26. Patient accepts date. Discussed that we would move forward with surgery on that day unless I heard back otherwise that A1C level that was checked needed to be addressed before scheduling surgery. Patient states he has appointment with his private tutors and teachers on 11/22 and will discuss with him his upcoming surgery to make sure nothing needs to be done and that patient is ok to stop taking his aspirin. Patient expresses understanding and all questions answered. Tucker Cortez RN 11/20/2017 10:31 AM Signed Called to speak to patient about HA1C results. Discussed with patient that level was 8.1. Per Paresh Pennington, we will still proceed with surgery on 12/03, but patient should follow up with whoever manages his diabetes about this, and also try very hard to maintain very tight blood sugar control the weeks before and after surgery to optimize wound healing. Patient expresses understanding and will follow up with doctor who manages his insulin and work on his blood sugars. Also discussed with patient that I had talked to his private tutors and teachers's office regarding clearance, but to make sure he spoke to them about it as well at his appointment on 11/22. Allergies As of Date: 11/19/2017 Noted Allergy Reaction environmental [Other] 08/05/2006 9 - Itching Comments: hayfever,sneezing,watery eyes Date Reviewed: 11/19/2017 Reviewed by: Jessie Cho MA - Fully Assessed Reason for Visit: Schedule Surgery [1330] Prescriptions as of 11/19/2017 Sig: GABAPENTIN 300 MG CAPSULE Take 4 capsules by mouth thre* HYDROCODONE 5 MG-ACETAMINOPHE* TRAMADOL 50 MG TABLET Take 1 tablet by mouth every * CARVEDILOL 3.125 MG TABLET Take 1 tablet by mouth twice * ATORVASTATIN 20 MG TABLET Take 1 tablet by mouth daily * METFORMIN 500 MG TABLET Take 1 tablet by mouth twice * INSULIN ASPART U-100 100 UNI* 4 to 6 units as needed with a* GLIPIZIDE 5 MG TABLET Take 10 mg by mouth daily bef* INSULIN GLARGINE (U-100) 100 * Inject 12-20 Units subcutaneo* ASPIRIN 81 MG TABLET,DELAYED * Take 162 mg by mouth once susie* LOSARTAN 100 MG TABLET Take one tablet daily FERROUS GLUCONATE 324 MG (36 * Take one(1) tablet three time* Problem List As Of Date 11/19/2017 Noted Resolved Type 2 diabetes mellitus with stage 3 chronic k* Other and Unspecified Hyperlipidemia [E78.5] 01/27/2010 BPH without urinary obstruction [N40.0] Unspecified hemorrhoids without mention of comp* 02/09/2016 More... Anemia, unspecified [D64.9] 02/09/2016 Acute gastritis without mention of hemorrhage [*INVALID FOR*02/09/2016 PAIN JOINT, KNEE [M25.569] INVALID FOR*02/09/2016 Labyrinthitis, unspecified [H83.09] INVALID FOR*02/09/2016 Chronic obstructive pulmonary disease with acut*INVALID FOR* Hyperlipidemia [E78.5] INVALID FOR* Hearing loss [H91.90] INVALID FOR* Overweight (BMI 25.0-29.9) [E66.3] INVALID FOR* Undiagnosed cardiac murmurs [R01.1] INVALID FOR*02/09/2016 Atherosclerosis of [place] coronary artery of na*INVALID FOR* CKD (chronic kidney disease) stage 3, GFR 30-59*INVALID FOR* Aortic stenosis, mild [I35.0] INVALID FOR* Colon cancer screening [Z12.11] INVALID FOR*04/12/2016 S/P CABG x 4 [Z95.1] INVALID FOR* Lumbar stenosis with neurogenic claudication [M*INVALID FOR* More... Encounter Status:Closed by DANA EASLEY, TUCKER on 11/20/17 HOSP Observed: 11/19/2017 Status: COMPLETED Source: [place] 12:00 AM [facility] RE[facility] Patient:Sam Vidales MRN: <[id number]> Height:5' 10(1.778 m) Weight:188 lb (85.276 kg) Outpatient Medications as of 12/03/17: carvedilol (COREG) 25 mg tablet insulin glargine (LANTUS U-100 INSULIN) 100 unit/mL injection amLODIPine (NORVASC) 5 mg tablet MELOXICAM ORAL gabapentin (NEURONTIN) 300 mg capsule HYDROcodone-acetaminophen (NORCO) 5-325 mg per tablet atorvastatin (LIPITOR) 20 mg tablet insulin aspart (NOVOLOG FLEXPEN) 100 unit/mL inpn glipiZIDE (GLUCOTROL) 5 mg tablet aspirin, enteric coated (ASPIRIN, ENTERIC COATED) 81 mg EC tablet losartan (COZAAR) 100 mg tablet Admission/Clinic Administered Medications as of 12/03/17: 0.9% NaCl 2-10 mL Problem List: Type 2 diabetes mellitus with stage 3 chronic kidney disease, with long-term current use of insulin (HCC) [E11.22, N18.3, Z79.4] BPH without urinary obstruction [N40.0] Chronic obstructive pulmonary disease with acute exacerbation (HCC) [J44.1] Hyperlipidemia [E78.5] Hearing loss [H91.90] Overweight (BMI 25.0-29.9) [E66.3] Atherosclerosis of [place] coronary artery of [place] heart without angina pectoris [I25.10] CKD (chronic kidney disease) stage 3, GFR 30-59 ml/min [N18.3] Aortic stenosis, mild [I35.0] S/P CABG x 4 [Z95.1] Lumbar stenosis with neurogenic claudication [M48.062] Allergies: environmental [Other] Date Verified: 12/03/17 Lab Values Lab Value Units Date High Low POTA* 5.4 mmol/L 11/26/2017 5.1 3.7 LANG* 39.9 % 11/26/2017 51.0 39.0 Progress Notes ([facility]): Renny Phillips LPN 11/26/2017 8:49 AM Signed Sam Vidales is a 67 year old male here today for visit in [facility] Referring Surgeon: Dr. LEONARDO Date of Surgery: 12/03/2017 Planned Surgery/Procedure: L4-5 laminectomy Allergies have been reviewed and verified. They include the following: Environmental [Other] Social History Substance Use Topics - Smoking status: Former Smoker Years: 30.00 Types: Cigarettes Quit date: 07/08/1995 - Smokeless tobacco: Current User Types: Chew Comment: chewing - Alcohol use 9.0 oz/week 6 Cans of Beer (12oz) per week Comment: Patient states stopped when given pain medications.approx. 09/11/2017 Medications reviewed and updated: Yes Renny Rodríguez MD 11/30/2017 8:51 AM Addendum HISTORY AND PHYSICAL EXAMINATION (IMPACT) SERVICE DATE: 11/26/2017 SERVICE TIME: 8:17 AM PRIMARY CARE PHYSICIAN: Param Rivers MD CHIEF COMPLAINT/HISTORY OF PRESENT ILLNESS: Mr. Vidales is a 67 year old male referred to me for preoperative evaluation. My final recommendations will be communicated back to the requesting physician/surgeon by the way of the shared medical record. Referring Surgeon: Dr. Jess Leonardo Date of Surgery: 12/03/17 Planned Surgery/Procedure: L4-5 laminectomy Indication for Planned Surgery / Procedure: Leg pain and claudication Refer to Assessment section for details of any comorbidities. Patient is Able to Perform the Following Physical Activity: Climb a flight of stairs or walk up a hill (5.50 METs) Patient denies any chest pain or undue shortness of breath with the above physical activity. Significant Anesthesia Considerations: None. PAST MEDICAL/SURGICAL/FAMILY/SOCIAL HISTORY PAST MEDICAL HISTORY Diagnosis Date - Acute gastritis without mention of hemorrhage 09/04/05 - Anemia, unspecified - Aortic stenosis, mild 02/09/2016 - Atherosclerosis of [place] coronary artery of [place] heart without angina pectoris 02/09/2016 - Chronic airway obstruction, not elsewhere classified 09/15/2007 - CKD (chronic kidney disease) stage 3, GFR 30-59 ml/min 02/09/2016 - Hyperlipidemia - Hypertension - Hypertrophy of prostate without urinary obstruction and other lower urinary tract symptoms (LUTS) - Personal history of noncompliance with medical treatment, presenting hazards to health - S/P CABG x 4 08/06/2016 - Type 2 diabetes mellitus with stage 3 chronic kidney disease, with long-term current use of insulin (HCC) - Type II or unspecified type diabetes mellitus without mention of complication, not stated as uncontrolled - Unspecified hemorrhoids without mention of complication Hemorrhoids PAST SURGICAL HISTORY Procedure Laterality Date - CABG X (4) ARTERIAL GRAFTS 08/06/2016 - COLONOSCOP W/ OR W/O BRSH SPEC 01/27/04 Colonoscopy-repeat in - COLONOSCOP W/ OR W/O BRSH SPEC 04/12/16 Colonoscopy - EGD W/O BRSH SPECIMEN W/BX 09/04/05 - EGD W/O OR W/BRUSH/WASH 04/12/16 EGD - LEFT HEART CATH,PERCUTANEOUS 09/08/2015 Cardiac cath, L heart - PAST SURGICAL HISTORY OF 10/12/2015 unsuccessful PCI attempt FAMILY HISTORY Problem Relation Age of Onset - Heart Daughter LONG QT - Heart Daughter LONG QT - Allergies Daughter - Allergies Mother - Alzheimer's Disease Father - Hypertension Father - Coronary Artery Disease Father SOCIAL HISTORYSocial History Marital status: Spouse name: Bradley Years of education: Number of children: 2 Occupational History Occupation Employer Comment [employer] Social History Main Topics Smoking status: Former Smoker Packs/day: 0.00 Years: 30.00 Types: Cigarettes Quit date: 07/08/1995 Smokeless tobacco: Current User Types: Chew Comment: chewing Alcohol use: Yes 9.0 oz/week Cans of Beer (12oz): 6 per week Comment: Patient states stopped when given pain medications.approx. 09/11/2017 Drug use: No Social History Narrative [facility] for [facility]. MEDICATIONS/ALLERGIES Current Outpatient Prescriptions: carvedilol (COREG) 25 mg tablet Take 25 mg by mouth twice daily with meals. Disp: Rfl: insulin glargine (LANTUS U-100 INSULIN) 100 unit/mL injection Inject 22 Units subcutaneously daily at bedtime. [facility]. Disp: Rfl: 0 amLODIPine (NORVASC) 5 mg tablet Take 5 mg by mouth once daily. Disp: Rfl: MELOXICAM ORAL Take by mouth. Disp: Rfl: gabapentin (NEURONTIN) 300 mg capsule Take 4 capsules by mouth three times daily for 335 days. Disp: 360 capsule Rfl: 0 HYDROcodone-acetaminophen (NORCO) 5-325 mg per tablet Take 1 tablet by mouth three times daily. Disp: Rfl: 0 atorvastatin (LIPITOR) 20 mg tablet Take 1 tablet by mouth daily at bedtime. [facility]. Disp: Rfl: insulin aspart (NOVOLOG FLEXPEN) 100 unit/mL inpn 4 to 6 units as needed with a meal. [facility]. Disp: 5 Pen Rfl: 0 glipiZIDE (GLUCOTROL) 5 mg tablet Take 10 mg by mouth daily before dinner. [facility]. Disp: Rfl: aspirin, enteric coated (ASPIRIN, ENTERIC COATED) 81 mg EC tablet Take 162 mg by mouth once daily. Disp: Rfl: losartan (COZAAR) 100 mg tablet Take one tablet daily Disp: 30 tablet Rfl: 3 No current facility-administered medications for this visit. ALLERGIES Allergen Reactions - Environmental [Othe* Itching hayfever,sneezing,watery eyes REVIEW OF SYSTEMS General: No weight loss, malaise or fevers. Neuro: No history of TIA's, stroke, AIR TURNING MACHINE FEEDER tumor, impaired sensorium, hemiplegia, paraplegia or quadriplegia. No neurological symptoms or problems. Respiratory: Asthma, as a Kid. No SOB reported Cardiovascular: Hypertension requiring meds, Open Heart Surgery (CABG/Valve Replacement), CABG X4 in Jul 2016, in [facility]. No chest pain on exertion GI: No history of GI symptoms or problems. No history of esophageal varices, recent ascites, or ETOH greater than 2 drinks per day. : CKD Endocrine: Diabetes Mellitus on insulin, Diabetes Mellitus on oral agent, Diabetic Nephropathy, no other endocrine symptoms Hematology: on Asa 162 mg daily Oncology: No history of CA metastasis, chemo within 30 days, or radiotherapy within 90 days. No history of oncological symptoms or problems. Psych: No history of psychiatric symptoms or problems. Skin: Negative for lesions, rash, and itching. PHYSICAL EXAM VITALS: BP 114/63 Pulse 56 Temp (Src) 97.9 (Oral) Ht 5' 10 (1.78m) Wt 188 lb (85.3kg) SpO2 97% BMI 26.98 kg/(m2). General: Alert and oriented Skin: Normal color, no rash, no lesions. HEENT: EOM, pupils equal, round and reactive. Cardiovascular: Pulse regular. RUSB Murmur Lungs: Normal breath sounds, no wheezes or crackles. Abdomen: Soft, non-tender, no rigidity. Extremities: No deformity, no edema or tenderness, no joint swelling or clubbing. Neurological: Normal cognition and motor skills. Pulses: Carotid and radial pulses normal +2. ASSESSMENT Mr. Vidales is a 67 year old male referred to me for preoperative evaluation. Patient has the following medical comorbidities which might affect the perioperative course: - CAD of the [place] vessel. Status post CABG x 4, Surgery date 2016. Stable with no angina at rest or exertion.. - CKD, Stage 3, due to diabetes AND hypertension. - Type II Diabetes which is well controlled, with nephropathy with CKD. Patient is on oral medications and insulin. - Hypertension, well controlled. Patient was seen recently by his private tutors and teachers and a letter will be faxed to the surgeon office Patient's RCRI (Revised Cardiac Risk Index: CAD/CHF/Stroke or TIA/SCr>2/DM on Insulin/High Risk Surgery) score is 1 and is at low risk for major adverse cardiac events in the perioperative period. Diagnostic tests reviewed for today's visit: PENDING PLAN/RECOMMENDATIONS CARDIAC: Patient is at optimal cardiac condition for scheduled surgery / procedure. Restart Aspirin as early as possible after surgery. PULMONARY: Patient is at optimal Pulmonary status for scheduled surgery / procedure. ENDOCRINE: DIABETES: - Initiate [facility] Guidelines for perioperative diabetes management. Check finger stick glucose on the morning of surgery. - Patient has been instructed on Preoperative DM medication management. RENAL: - Suggest following in the postoperative period due to patient's pre-existing renal disease: Avoid nephrotoxic medications Dose medications on estimated serum creatinine clearance Monitor fluid balance closely and avoid hypotension. Avoid dehydration / volume depletion Monitor serum creatinine Patient is optimally prepared for surgery pending labs and Cardiology clearance letter from his private tutors and teachers to Dr Jeffery Patient Instructions: As per patient instructions section. General Preoperative/Medication/Fasting Instructions Preoperative Diabetes Medication Instructions I have discussed the above recommendations with the patient in detail, in skip and lay terms, and provided a written summary of instructions as needed. We have discussed that no surgery is without risk, but that the goal of preoperative assessment is to optimize that risk, and that was clearly understood by the patient. I have given ample opportunity for the patient to ask questions, and answered all questions to their stated satisfaction. SIGNATURE: Michael Rodríguez MD PATIENT NAME: Sam Vidales DATE: November 26, 2017 TIME: 8:17 AM Labs reviewed and within acceptable limit for surgery Patient is medically optimized for the planned surgery Repeat BMP on DOS Cardiology note scanned in chart Michael Rodríguez MD, FACP Staff, Dept of Hospital Medicine November 30, 2017 8:50 AM Pager:[phone] Previous Version Michael Rodríguez MD 11/26/2017 8:43 AM Signed [facility] Patient Instructions for Surgery FOOD INSTRUCTIONS: NO solid food or non-clear liquids for 8 hours prior to the arrival time for your surgery. Unless you are instructed otherwise, you are allowed to drink up to 12 ounces of clear liquids (e.g. water, black tea/coffee, fruit juice without pulp, Vinh Isabel, etc.) up until 2 hours prior to the arrival time for surgery. MEDICATION INSTRUCTIONS: Prior to Surgery: Do not take the following medications for 7 days prior to surgery: - any NSAID's (e.g. Motrin, Aleve, Arthrotec, Naproxen,etc) - any herbal preparations - Aspirin or aspirin containing products - Plavix Do not take any Vitamin E / multivitamins for 10-14 days before surgery You are allowed to take Tylenol if needed until the day of surgery. Please check with Dr Mark regarding stopping the aspirin as requested by your surgeon MEDICATION INSTRUCTIONS: Day/Morning of Surgery: The following medications should be taken with sips of water: Coreg,Amlodipine,Neurontin Tylenol, if needed for pain, can be taken on morning of surgery. Opiates (percocet, vicodin, MS contin, darvocet, ultram,etc), if needed for pain, can be taken on morning of surgery. DIABETES MANAGEMENT INSTRUCTIONS: Eat a usual diet until the day prior to surgery unless indicated by your surgeon/physician. If your blood sugar is below 70 mg/dl at any time, treat with ? cup of apple juice or vinh isabel, or 4 glucose tabs or 1 tube of oral glucose gel. MEDICATION INSTRUCTIONS: Prior to Surgery: ? Continue all diabetic pills as scheduled including the evening prior to surgery. MEDICATION INSTRUCTIONS: Day/Morning of Surgery: ? Do not take your Diabetic pills. ? Do not take any injections like symlin, byetta or mealtime insulin. If you have any questions or concerns regarding today's visit please do not hesitate to contact the [facility] center at [phone] or [phone], ext [address]. Signature: Michael Rodríguez MD Date: November 26, 2017 Progress Notes ([facility]): Mack Gibbs RN 11/26/2017 11:48 AM Signed ANESTHESIA PRE-OPERATIVE ASSESSMENT (PACE) SERVICE DATE: 11/26/2017 SERVICE TIME: 1058 ASSESSMENT AND PLAN: Sam Vidales is a 67 year old male scheduled for L4/5 laminectomy per Informed Consent in MAIN on 12/03/17. PMH: stenosis for above surgery CAD- s/p CABGx4 Jul 2016 VALVERDE- LAD, a free GWEN to OM #1 as a Y graft off of the VALVERDE, SVG to OM 32, SVG to the Posterior lateral branch ECHO Jul 2017- EF 65%, RVSP 30 mmHG, possible fusion of the non and left coronary cusps and mild to moderate aortic stenosis with a peak/mean gradient of 28 and 15 mmHG respectively. Cardiac clearance form his private tutors and teachers Dr Lavell Pinon (scanned into [employer]ZE) .. Preoperative stratification : The patient is at low risk for non cardiac surgery, and does not require repeat stress test or echocardiogram at this time. he is asymptomatic and is less than 1 year from his bypass surgery. Recommended he continue his baby aspirin, Coreg, hydrochlorothiazide, losartan. He will start amlodipine 5 milligrams p.o. daily, and repeat a blood pressure check in 1 week's time. If his blood pressure is still not optimized we can increase his amlodipine to 10 mg a day. Carotid US 2017 (bruit) There is shadowing echogenic plaque within the carotid bulbs?and proximal right internal carotid artery with less than 50% hemodynamic stenosis. HTN on coreg, losartan, amlodipine HPLon lipitor DM- A1C 8.1- on lantus 22 units qhs, novolog kwikpen 6-12 units before meal, and glipizide CKD- stg 3 (htn/dm) last creat 1.35- labs pending neuropathy on neurontin (taking 300mg; 4 tablets three times daily) (patient reports given neurontin by his pain MD and dose as increased by surgical team) chronic pain norco, mobic, neurontin- 6 or greater with walking, standing [facility]: 3 FC: 2 METS: Walk a block or two on level ground (2.75 METs) Climb a flight of stairs or walk up a hill (5.50 METs) Patient WILL accept blood products. BLOOD WORK/PRODUCTS ORDERED: Type and Screen , Con ABO HISTORY OF CHRONIC PAIN: Yes Current Pain Level: 6 with standing, 0 if just sitting or lying down Location: waist down Baseline Pain Level 6 or greater Acceptable Pain Level: 2 can live with 2-3 Current Pain Regimen: norco , neurontin, mobic Length of Time on Pain Medication: norco May 2017, neurontin Jul/Aug 2017 Facility or PCP Prescribing Pain Regimen: Dr Champion (pain doctor) [phone] PAIN MANAGEMENT OPTIONS: Routine/PRN IV and Final pain management plan will be discussed on the day of surgery. ANESTHETIC OPTIONS: General and Final anesthesia management options will be discussed on day of surgery. PRE-OP PLAN ORDERED: Diabetes orders Patient Instructed: ? No solid food or non-clear liquids after midnight. Clear liquids allowed until two hours before scheduled arrival. ? Patient instructed to take the following medications with a sip of water: coreg, norvasc, neurontin, norco if needed Vital Signs: BP 114/63 Pulse (!) 56 Ht 177.8 cm (5' 10) Wt 85.3 kg (188 lb) SpO2 97% BMI 26.98 kg/m? BMI 26.98 kg/(m2) Vital signs completed by: IMPACT Weight acquired: per HANDP. Height acquired: per HANDP Airway Exam: MOUTH OPENING/TMJ: Full jaw ROM MICROGNATHIA/OVERBITE: No MALLAMPATI SCORE is CLASS III UPPER LIP BITE TEST: Class II - Lower incisors can bite the upper lip below the simone line DENTITION: Intact THYROMENTAL DIST: WNL, full campbell SHORT NECK: No NECK CIRCUMFERENCE >40 cm: Appears < than 40 CM NECK FLEX: Full ROM NECK EXTENSION: Full ROM AIRWAY HISTORY: No abnormal airway history ARKS AIRWAY DETAIL: N/A DATA: EKG READING: Unconfirmed - today OTHER TESTS: Echo: Date: Jul 2017 , Results: Jul 2017- EF 65%, RVSP 30 mmHG, possible fusion of the non and left coronary cusps and mild to moderate aortic stenosis with a peak/mean gradient of 28 and 15 mmHG respectively. Lab Value Units Date High Low HB 12.9 g/dL 11/26/2017 17.0 13.0 HCT 39.9 % 11/26/2017 51.0 39.0 WBC 5.68 k/uL 11/26/2017 11.00 3.70 PLT 216 k/uL 11/26/2017 400 150 NA No results within date range. K No results within date range. GLUC No results within date range. BUN No results within date range. CREAT No results within date range. PTSEC No results within date range. INR No results within date range. APTT No results within date range. ALT No results within date range. AST No results within date range. TBILI No results within date range. TSH No results within date range. Lab Value Units Date High Low HCGQT No results within date range. UHCG No results within date range. HCG, BODY* No results within date range. ABORHD A POSI* no uni* 11/26/2017 ABSCREEN No results within date range. HBA1C: Hemoglobin A1C (%) Date Value 11/19/2017 8.1 07/30/2016 7.3 ) Patient accompanied by self Case Discussed with Dr Morris OPTIMIZATION STATUS: Patient optimization pending Labs IMPACT EKG IMPACT SIGNATURE: Mack Gibbs RN PATIENT NAME: Sam Vidales DATE: November 26, 2017 TIME: 10:58 AM PAGER/CONTACT #: CNPN Observed: 10/31/2017 Status: COMPLETED Source: [place] 12:00 AM [facility] Telephone ([facility]) SAM VIDALES ([id number]) 1950 M Date Time Provider Department 10/31/17 PARESH PENNINGTON) SP[facility]MN During your visit today, we recorded the following information about you: Miki Calderon 10/31/2017 4:53 PM Signed Pt calls today to speak with EMILIE, would not give reason for call Paresh Pennington) 11/01/2017 10:19 AM Signed Call to pt. He would like to be scheduled to meet with spine surgeon and talk about surgery. Advised I will have scheduling to reach out to him about appointment. Pt verbalized understanding. Dr. Leonardo can add on Sunday 11/19 at [place] [id number] at 11:00 am with assessment prior, length 40 minutes. Please call and offer pt appointment. If he can not accept that date and time, please assist with scheduling appointment with next available surgeon. Paresh Pennington CNP [employer] ArchitectLaura 11/11/2017 11:29 AM Signed Patient is returning Paresh call pertaining to below message, patient will except appt with Dr. Leonardo on 11/19/17 at [place] [id number] at 11:00 am. call back [phone] Dana EASLEY, [place] 11/11/2017 11:42 AM Signed Called and spoke to patient about appointment with Dr. Leonardo. 11/19 at 11 AM still available. Instructed patient to bring any imaging and medical records with him to appointment. Schedulers notified. Allergies As of Date: 10/31/2017 Noted Allergy Reaction environmental [Other] 08/05/2006 9 - Itching Comments: hayfever,sneezing,watery eyes Date Reviewed: 10/07/2017 Reviewed by: Anh Pantoja Ma - Fully Assessed Reason for Visit: Speak with [employer] NURSE [Other] Prescriptions as of 10/31/2017 Sig: HYDROCODONE 5 MG-ACETAMINOPHE* GABAPENTIN 300 MG CAPSULE Take 1 pill by mouth three ti* TRAMADOL 50 MG TABLET Take 1 tablet by mouth every * CARVEDILOL 3.125 MG TABLET Take 1 tablet by mouth twice * ATORVASTATIN 20 MG TABLET Take 1 tablet by mouth daily * METFORMIN 500 MG TABLET Take 1 tablet by mouth twice * INSULIN ASPART U-100 100 UNI* 4 to 6 units as needed with a* GLIPIZIDE 5 MG TABLET Take 10 mg by mouth daily bef* INSULIN GLARGINE (U-100) 100 * Inject 12-20 Units subcutaneo* ASPIRIN 81 MG TABLET,DELAYED * Take 162 mg by mouth once susie* LOSARTAN 100 MG TABLET Take one tablet daily FERROUS GLUCONATE 324 MG (36 * Take one(1) tablet three time* Problem List As Of Date 10/31/2017 Noted Resolved Type 2 diabetes mellitus with stage 3 chronic k* Other and Unspecified Hyperlipidemia [E78.5] 01/27/2010 BPH without urinary obstruction [N40.0] Unspecified hemorrhoids without mention of comp* 02/09/2016 More... Anemia, unspecified [D64.9] 02/09/2016 Acute gastritis without mention of hemorrhage [*INVALID FOR*02/09/2016 PAIN JOINT, KNEE [M25.569] INVALID FOR*02/09/2016 Labyrinthitis, unspecified [H83.09] INVALID FOR*02/09/2016 Chronic obstructive pulmonary disease with acut*INVALID FOR* Hyperlipidemia [E78.5] INVALID FOR* Hearing loss [H91.90] INVALID FOR* Overweight (BMI 25.0-29.9) [E66.3] INVALID FOR* Undiagnosed cardiac murmurs [R01.1] INVALID FOR*02/09/2016 Atherosclerosis of [place] coronary artery of na*INVALID FOR* CKD (chronic kidney disease) stage 3, GFR 30-59*INVALID FOR* Aortic stenosis, mild [I35.0] INVALID FOR* Colon cancer screening [Z12.11] INVALID FOR*04/12/2016 S/P CABG x 4 [Z95.1] INVALID FOR* Encounter Status:Closed by MIKI CALDERON on 11/08/17 CHIROPRACTIC REPORT Observed: 10/21/2017 Status: F Source: [place] 9:52 AM [facility] [address] [place] [address] OFFICE VISIT Date of Service: 10/16/17 MR#: [id number] Acct: [id number] Name: SAM VIDALES Efren Rep #: [id number] : 1950 Provider: Wendy Wood D.C. Age/Sex: 67/M Location: [facility] [place] Status: Signed Intake Vital Signs10/16/17 Height 5 ft 9 in 10/16/17 Weight: 172 lb 10/16/17 Body Mass Index (BMI) 25.4 Intake Visit Reasons: low back pain Is patient in pain?: Yes Allergies lisinopril Allergy (Mild, Verified 09/17/17 09:41) unknown Medications Atorvastatin Calcium [Lipitor] 20 mg PO QHS 09/08/15 [History Confirmed 11/14/16] Insulin Aspart [Novolog Flexpen (BKC)] 0 units SC TIDCM 09/08/15 [History Confirmed 11/14/16] Insulin Glargine,Hum.rec.anlog [Lantus] 0 unit SQ TID 09/08/15 [History Confirmed 11/14/16] Losartan Potassium [Cozaar] 100 mg PO DAILY 09/08/15 [History Confirmed 11/14/16] glipiZIDE [Glucotrol] 5 mg PO DAILY@0730 09/08/15 [History Confirmed 11/14/16] Aspirin [Aspirin, Baby] 162 mg PO DAILY@0800 07/26/16 [History Confirmed 11/14/16] hydrochlorothiazide 50 mg tablet 50 mg PO QDAY #30 tab 07/11/17 [Rx] amlodipine 2.5 mg tablet 5 mg PO QDAY tab 07/15/17 [History] carvedilol 6.25 mg tablet 6.25 mg PO BID #180 tab 09/24/17 [Rx] [facility] Medical History Other intervertebral disc degeneration, lumbar region (Acute) Other intervertebral disc displacement, lumbosacral region (Acute) Other spondylosis, lumbar region (Acute) Spondylosis of lumbosacral region without myelopathy or radiculopathy (Acute) Spondylosis without myelopathy or radiculopathy, lumbar region (Acute) Social History Smoking Status: Never smoker HPI low back pain : Chief Complaint: low back pain Visit Number: 1 Referral source: previous patient Details: SAM VIDALES is a 67 year old M who presents with R sided low back pain. He states that the pain begins in the R low back and radaites into the R leg to the foot, although he denies any numbness or tingling. Today he rates his pain a 4/10 and describes it as an ache that can become sharp and shooting, bending, lifting, and prolonged walking all increase the patients pain. The patient stated the the only relief he has had from his back pain was last time he got adjusted. He has had a recent lumbar MRI which revealed DDD and stenosis. He is currently seeking a spinal surgeon. Onset: 09/09/17 Location: R sided low back pain Duration: constant Aggravating or associated factors: shooting, bending, lifting, and prolonged walking Relieving factors: none Pain Quality: aching, dull, sharp Exam Musc General: Yes normal gait (favors right leg), joint tenderness (T8, T10, T11, L2, L3, L4, L5, R SI) and decreased ROM; no normal posture (antalgic) Thoracic/Lumbar Spine: thor and lumb spine abnorm to inspection, Lasegue's sign positive on the right, pain with thoraco-lumbar ROM with forward flexion, with lateral flexion to the left, with rotation to the right and with rotation to the left, paraspinal tenderness on the right greater than left, thoraco-lumbar ROM limited with forward flexion, with lateral flexion to the left, with rotation to the left and with rotation to the right, thoraco-lumbar spasm on the right greater than left (R QL), straight leg raise positive right: at 30 degrees Sacroiliac joints: on the right Neuro General: alert, awake, oriented x3, gait abnormal Gait: antalgic Motor: strength abnormal (R LE: IV/V, L LE: IV/V) Sensory Exam: no sensory deficits noted DTR's: Rt Patellar: 1+, Lt Patellar: 2+, Rt Ankle: 1+, Lt Ankle: 1+ Ortho Test CERVICAL THORACIC Kemps: Negative Schepelmanns pain: Negative Montoya: Negative LUMBAR Kemps: Positive, Rig Valsalvas: Negative SLR: Positive, Rig Braggards: Positive, Rig Iliac Compression: Positive, Rig Office Procedures Chiropractic Treatments Procedures Manipulation: 3-4 regions (T8, T11, L2, L4, R SI) Assessment AND Plan 1. Segmental and somatic dysfunction of lumbar region M99.03 Orders Orders: 2. Segmental and somatic dysfunction of thoracic region M99.02 Orders Orders: 3. Segmental and somatic dysfunction of pelvic region M99.05 Orders Orders: 4. DDD (degenerative disc disease), lumbar M51.36 Plan Begin acute care plan: 2x/mo Plan Detail Other Orders Orders: Goals Decrease pain and inflammation as patient awaits surgery Barriers DDD Stenosis Follow Up 2x/wk Coding Level of Care Code Off vis,est,level 1 Diagnoses Segmental and somatic dysfunction of lumbar region M99.03 Segmental and somatic dysfunction of thoracic region M99.02 Segmental and somatic dysfunction of pelvic region M99.05 DDD (degenerative disc disease), lumbar M51.36 Additional Codes Procedures - Manipulation: 3-4 regions (58933) 10/21/17 0952 <Electronically signed by Wendy Wood D.C.> Date Wendy Wood D.C. Cosigner Signature: Date (if applicable) CC: GERSON Observed: 10/14/2017 Status: COMPLETED Source: [place] 12:00 AM [facility] Telephone ([facility]) SAM VIDALES ([id number]) 1950 M Date Time Provider Department 10/14/17 PARESH PENNINGTON ([facility]) [facility] During your visit today, we recorded the following information about you: Gina Kirby [facility] [place]/14/[place] 8:41 AM Signed Patient called; states he would like imaging disc back that he brought with him to office visit; also states he has titrated up to 4 gabapentin, 3x day (sometimes taking 3, 3x day); states he doesn't feel any benefit from the gabapentin; requesting call back w/further recommendations; pls call; ph. [phone] Katelyn Newman, RN 10/14/2017 10:29 AM Signed Call to the pt He is currently on 900 mg of the Neurontin tid and feels not change in his Right leg pain . The pt states that the Neurontin does cause him to simply ANDquot; not careANDquot; about his pain . He admits to feeling foggy with the Neurontin. Conservative tx Neurontin 900 mg tid Mobic daily The pt is unable to stand or ambulate any longer due to pain . Calling for recommendations at this time, Paresh Pennington APRN.EMILIE 10/14/2017 11:11 AM Signed Reviewed below. Pt reports 2700-3600mg daily of gabapentin with no benefit, positive side effect. Office visit was one week ago and counseled extensively re: gabapentin titration, should only be at 1200mg daily, not max dose. Regardless, given no benefit and + side effect, recommend to decrease gabapentin by 300mg (one pill) every other day until increased pain/off medication. As discussed during office visit, if failure to achieve benefit with trial of gabapentin, would be a candidate for lumbar decompression surgery, recommend follow up with spine surgeon to discuss in further detail. Can be coordinated if pt would be interested to meet with surgeon. Please update pt. Will need check the triage office later for disc. Paresh Pennington APRN.EMILIE Newman RN 10/14/2017 1:06 PM Signed Call to the pt to review plan as outlined by Paresh Pennington NP. The pt is not interested in a surgical opinion at this time and would like to given the Neurontin a bit more time. DW pt the dosage and he admitted that this was increased more quickly than was reviewed by Paresh Pennington NP. DW weaning process at length. The pt would like to stay of 900 mg tid for a longer period of time . He will then call the office before his makes any change with the dosage. Paresh Pennington APRN.CNP 10/25/2017 5:02 PM Signed CD placed in mail to home address. Paresh Pennington APRN.CNP Allergies As of Date: 10/14/2017 Noted Allergy Reaction environmental [Other] 08/05/2006 9 - Itching Comments: hayfever,sneezing,watery eyes Date Reviewed: 10/07/2017 Reviewed by: Anh Pantoja Ma - Fully Assessed Reason for Visit: Patient Update [1234] Prescriptions as of 10/14/2017 Sig: HYDROCODONE 5 MG-ACETAMINOPHE* GABAPENTIN 300 MG CAPSULE Take 1 pill by mouth three ti* TRAMADOL 50 MG TABLET Take 1 tablet by mouth every * CARVEDILOL 3.125 MG TABLET Take 1 tablet by mouth twice * ATORVASTATIN 20 MG TABLET Take 1 tablet by mouth daily * METFORMIN 500 MG TABLET Take 1 tablet by mouth twice * INSULIN ASPART U-100 100 UNI* 4 to 6 units as needed with a* GLIPIZIDE 5 MG TABLET Take 10 mg by mouth daily bef* INSULIN GLARGINE (U-100) 100 * Inject 12-20 Units subcutaneo* ASPIRIN 81 MG TABLET,DELAYED * Take 162 mg by mouth once susie* LOSARTAN 100 MG TABLET Take one tablet daily FERROUS GLUCONATE 324 MG (36 * Take one(1) tablet three time* Problem List As Of Date 10/14/2017 Noted Resolved Type 2 diabetes mellitus with stage 3 chronic k* Other and Unspecified Hyperlipidemia [E78.5] 01/27/2010 BPH without urinary obstruction [N40.0] Unspecified hemorrhoids without mention of comp* 02/09/2016 More... Anemia, unspecified [D64.9] 02/09/2016 Acute gastritis without mention of hemorrhage [*INVALID FOR*02/09/2016 PAIN JOINT, KNEE [M25.569] INVALID FOR*02/09/2016 Labyrinthitis, unspecified [H83.09] INVALID FOR*02/09/2016 Chronic obstructive pulmonary disease with acut*INVALID FOR* Hyperlipidemia [E78.5] INVALID FOR* Hearing loss [H91.90] INVALID FOR* Overweight (BMI 25.0-29.9) [E66.3] INVALID FOR* Undiagnosed cardiac murmurs [R01.1] INVALID FOR*02/09/2016 Atherosclerosis of [place] coronary artery of na*INVALID FOR* CKD (chronic kidney disease) stage 3, GFR 30-59*INVALID FOR* Aortic stenosis, mild [I35.0] INVALID FOR* Colon cancer screening [Z12.11] INVALID FOR*04/12/2016 S/P CABG x 4 [Z95.1] INVALID FOR* Encounter Status:Closed by KATELYN NEWMAN on 10/14/17 CNOV Observed: 10/07/2017 Status: COMPLETED Source: [place] 10:40 AM [facility] Office Visit ([facility]) SAM VIDALES ([id number]) 1950 M Date Time Provider Department 10/07/17 10:40 AM PARESH PENNINGTON ([facility]) [facility] During your visit today, we recorded the following information about you: Pulse Respiration Blood pressure Weight 65/minute 16/minute 146/71 79.8 kg Height 1.765 m Paresh Pennington APRN.CNP 11/01/2017 10:10 AM Addendum SPINE SURGERY NEW PATIENT PCP: Param Rivers MD REFERRING PROVIDER: self SUBJECTIVE HISTORY OF PRESENT ILLNESS: Sam Vidales is a 67 year old male presenting alone. CHIEF COMPLAINT: RLE pain DURATION OF SYMPTOMS: Greater Than 1 Year About one year ago, developed bilateral LE pain. The left leg pain is improved. The right leg pain remains. PAIN EVALUATION 10/07/2017 Pain Score: 7 Pain Location: Back-Lower Right side, right hip, sometimes goes down to feet. Description: Sharp Duration Amount of Time: 1 Duration Units: Years Frequency: Continuous No pain with sitting. Intervention: Reposition;Exercise;Medication;Heat;Cold Pain management, injections (4), Pain Radiation: right buttock, right posterior thigh, right lateral ankle Aggravating Factors: Standing, Walking Alleviating Factors: Sitting - no pain Pain Ratio: 0 % back pain, 100 % leg pain DERMATOMAL DISTRIBUTION: Right: S1 AMBULATORY STATUS: Impaired Community Distances Left foot weakness - cannot stand on left toes since May 2017 Denies numbness/tingling. Poor balance, + recent falls. Denies fine motor impairment. Denies bowel/bladder dysfunction. Denies osteoporosis. Denies hx of cancer. + nicotine via chew, no cigarettes Positive hx of DM, last HgbA1C unknown. PREVIOUS CONSERVATIVE TREATMENTS: Opioids Physical Therapy: Date(s) summer 2016 x4.5-5 weeks: no benefit Epidural Blocks: Date(s) multiple since Fall 2016 - some helpful, some not Membrane Stabilizers - gabapentin 300mg PRN [place] 5/325mg PRN, not every day PREVIOUS SPINAL SURGERY: None ACTIVE PROBLEM LIST Type 2 Diabetes Mellitus With Stage 3 Chronic Kidney Disease, With Long-Term Current Use of Insulin (Hcc) Bph Without Urinary Obstruction Chronic Obstructive Pulmonary Disease With Acute Exacerbation (Hcc) Hyperlipidemia Hearing Loss Overweight (Bmi 25.0-29.9) Atherosclerosis of [place] Coronary Artery of [place] Heart Without Angina Pectoris Ckd (Chronic Kidney Disease) Stage 3, Gfr 30-59 Ml/Min Aortic Stenosis, Mild S/P Cabg X 4 PAST MEDICAL HISTORY Diagnosis Date - Acute gastritis without mention of hemorrhage 09/04/05 - Anemia, unspecified - Aortic stenosis, mild 02/09/2016 - Atherosclerosis of [place] coronary artery of [place] heart without angina pectoris 02/09/2016 - Chronic airway obstruction, not elsewhere classified 09/15/2007 - CKD (chronic kidney disease) stage 3, GFR 30-59 ml/min 02/09/2016 - Hyperlipidemia - Hypertension - Hypertrophy of prostate without urinary obstruction and other lower urinary tract symptoms (LUTS) - Personal history of noncompliance with medical treatment, presenting hazards to health - S/P CABG x 4 08/06/2016 - Type 2 diabetes mellitus with stage 3 chronic kidney disease, with long-term current use of insulin (HCC) - Type II or unspecified type diabetes mellitus without mention of complication, not stated as uncontrolled - Unspecified hemorrhoids without mention of complication Hemorrhoids PAST SURGICAL HISTORY Procedure Laterality Date - CABG X (4) ARTERIAL GRAFTS 08/06/2016 - COLONOSCOP W/ OR W/O BRSH SPEC 01/27/04 Colonoscopy-repeat in - COLONOSCOP W/ OR W/O BRSH SPEC 04/12/16 Colonoscopy - EGD W/O BRSH SPECIMEN W/BX 09/04/05 - EGD W/O OR W/BRUSH/WASH 04/12/16 EGD - LEFT HEART CATH,PERCUTANEOUS 09/08/2015 Cardiac cath, L heart - PAST SURGICAL HISTORY OF 10/12/2015 unsuccessful PCI attempt FAMILY HISTORY Problem Relation Age of Onset - Heart Daughter LONG QT - Heart Daughter LONG QT - Allergies Daughter - Allergies Mother - Alzheimer's Disease Father - Hypertension Father - Coronary Artery Disease Father Social History Marital status: Spouse name: Bradley Years of education: Number of children: 2 Occupational History Occupation Employer Comment [employer] Social History Main Topics Smoking status: Former Smoker Packs/day: 0.00 Years: 30.00 Types: Cigarettes Quit date: 07/08/1995 Smokeless status: Current User Types: Chew Comment: chewing Alcohol use: Yes 9.0 oz/week 6 Cans of Beer (12oz) per week Comment: Patient states stopped when given pain medications.approx. 09/11/2017 Drug use: No Social History Narrative [facility] Administration for medications. ALLERGIES Allergen Reactions - Environmental [Othe* Itching hayfever,sneezing,watery eyes MEDICATIONS: HYDROcodone-acetaminophen (NORCO) 5-325 mg per tablet gabapentin (NEURONTIN) 300 mg capsule Take 1 pill by mouth three times daily. Titrate per chart provided (increase by 1 tab every 4 days until 3600mg or relief of sx) traMADol (ULTRAM) 50 mg tablet Take 1 tablet by mouth every 8 hours as needed for Pain (use for moderate to severe pain only). carvedilol (COREG) 3.125 mg tablet Take 1 tablet by mouth twice daily with meals. atorvastatin (LIPITOR) 20 mg tablet Take 1 tablet by mouth daily at bedtime. [facility]. metFORMIN (GLUCOPHAGE) 500 mg tablet Take 1 tablet by mouth twice daily with meals. Takes as needed for heavy meals. [facility]. insulin aspart (NOVOLOG FLEXPEN) 100 unit/mL inpn 4 to 6 units as needed with a meal. [facility]. glipiZIDE (GLUCOTROL) 5 mg tablet Take 10 mg by mouth daily before dinner. [facility]. insulin glargine (LANTUS) 100 unit/mL injection Inject 12- 20 Units subcutaneously daily at bedtime. [facility]. aspirin, enteric coated (ASPIRIN, ENTERIC COATED) 81 mg EC tablet Take 162 mg by mouth once daily. losartan (COZAAR) 100 mg tablet Take one tablet daily FERROUS GLUCONATE 324 MG (36 MG IRON) TAB Take one(1) tablet three times daily. WITH FOOD REVIEW OF SYSTEMS: PAIN ASSESSMENT: See HPI. GENERAL: Denies fever, chills malaise and weight loss. CARDIOVASCULAR: hx of CAD s/p CABG on ASA RESPIRATORY: Denies SOB, sputum production, and hemoptysis. GI: Denies GI ulcers, inflammatory disease, or liver disease. : Denies change in frequency or urgency, kidney disease, and burning with urination. MUSCULOSKELETAL: Positive for See HPI NEURO: Denies CVA, seizures, headaches. ENDOCRINE: Positive for DM on Insulin HEMATOLOGY/LYMPHOLOGY: Denies cancer, bleeding or clotting disorders, anemia,and DVT's. OBJECTIVE: PHYSICAL EXAM BP 146/71 (BP Site: Left Arm, BP Position: Sitting, BP Cuff Size: Regular Adult) Pulse 65 Resp 16 Ht 176.5 cm (5' 9.5ANDquot;) Wt 79.8 kg (176 lb) BMI 25.62 kg/m2 GENERAL APPEARANCE: Well nourished, well developed, and no apparent distress. NEURO PSYCH: Patient oriented to person, place, and time. Mood pleasant. Benign affect. MUSCULOSKELETAL VISUAL INSPECTION CERVICAL: WNL THORACIC: WNL LUMBAR: WNL PALPATION: SPINOUS PROCESS: No pain. PARASPINALS: No pain. MUSCLE BULK: Normal and symmetrical in the upper ANDamp; lower extremities. MUSCLE TONE: Normal. MOTOR: Ankle Plantar Flexors Left: 5-, otherwise 5/5 in BUE and BLE. Cannot do single leg calf raises on the left GAIT: Normal. REFLEXES: Biceps Right: 1+, Left: 1+., Brachioradialis Right: 1+, Left: 1+., Knee jerk Right: 1+, Left: 1+., Ankle jerk Right: 0, Left: 0. LONG TRACT SIGNS: No clonus. No Hoffmans. DATA REVIEW [facility] records reviewed MRI lumbar spine 03/2017 - L4/5 central stenosis XR lumbar spine 01/2017 - lumbar spondylosis with no evidence of spondylolisthesis ASSESSMENT/PLAN IMPRESSION: (M48.062) Lumbar stenosis with neurogenic claudication (primary encounter diagnosis) 67 yo M with CC of right leg pain consistent with neurogenic claudication. Exam with left plantar flexion weakness. MRI lumbar spine with L4/5 stenosis. 1. Increase of gabapentin recommended. Trial of gabapentin 300mg recommended up to 3600mg Indications, dosing and side effects reviewed. Advised not to stop abruptly. Q4day titration chart provided along with office phone number. Rx e-scripted. 2. Follow up: PRN. Would be a candidate for a L4/5 decompression. Discussed with patient in detail. The majority of the visit was spent counseling and/or coordinating care for the patient. The patient was counseled regarding above. Total face to face time was 45 minutes. SIGNATURE: Paresh Pennington APRN.CNP PATIENT NAME: Sam Vidales DATE: October 07, 2017 TIME: 11:34 AM PAGER: Paresh Pennington APRN.CNP 10/07/2017 12:20 PM Signed 1. Increase in gabapentin recommended 2. If new or worsening symptoms, no benefit with gabapentin or intolerance to side effects, recommend follow up with spine surgeon to discuss possible surgical intervention (L4/5 laminectomy) 3. Other medications that could be considered at [facility] or [facility] Paresh Pennington APRN.CNP Office number [phone] Referring Provider: PARESH PENNINGTON ([facility]) [[id number]] Allergies As of Date: 10/07/2017 Noted Allergy Reaction environmental [Other] 08/05/2006 9 - Itching Comments: hayfever,sneezing,watery eyes Date Reviewed: 10/07/2017 Reviewed by: Anh Pantoja Ma - Fully Assessed Reason for Visit: New Patient [172] Primary Visit Diagnosis:Lumbar stenosis with neurogenic claudication [M48.062] Order(s):gabapentin (NEURONTIN) 300 mg capsuleTake 1 pill by mouth three times daily. Titrate per chart provided (increase by 1 tab every 4 days until 3600mg or relief of sx)Disp: 270 capsuleRfl: 0 Prescriptions as of 10/07/2017 Sig: HYDROCODONE 5 MG-ACETAMINOPHE* GABAPENTIN 300 MG CAPSULE Take 1 pill by mouth three ti* TRAMADOL 50 MG TABLET Take 1 tablet by mouth every * CARVEDILOL 3.125 MG TABLET Take 1 tablet by mouth twice * ATORVASTATIN 20 MG TABLET Take 1 tablet by mouth daily * METFORMIN 500 MG TABLET Take 1 tablet by mouth twice * INSULIN ASPART U-100 100 UNI* 4 to 6 units as needed with a* GLIPIZIDE 5 MG TABLET Take 10 mg by mouth daily bef* INSULIN GLARGINE (U-100) 100 * Inject 12-20 Units subcutaneo* ASPIRIN 81 MG TABLET,DELAYED * Take 162 mg by mouth once susie* LOSARTAN 100 MG TABLET Take one tablet daily FERROUS GLUCONATE 324 MG (36 * Take one(1) tablet three time* Medication notes this encounter HYDROCODONE 5 MG-ACETAMINOPHEN 325 MG TABLET >> Anh Pantoja Ma 10/07/2017 10:43 AM >> ANH PANTOJA MA Oct 07, 2017 10:43 AM Received from: External Pharmacy GABAPENTIN 300 MG CAPSULE >> Anh Pantoja Ma 10/07/2017 10:43 AM >> ANH PANTOJA MA Oct 07, 2017 10:43 AM Received from: External Pharmacy Received Sig: TAKE 1 CAPSULE THREE TIMES DAILY Problem List As Of Date 10/07/2017 Noted Resolved Type 2 diabetes mellitus with stage 3 chronic k* Other and Unspecified Hyperlipidemia [E78.5] 01/27/2010 BPH without urinary obstruction [N40.0] Unspecified hemorrhoids without mention of comp* 02/09/2016 More... Anemia, unspecified [D64.9] 02/09/2016 Acute gastritis without mention of hemorrhage [*INVALID FOR*02/09/2016 PAIN JOINT, KNEE [M25.569] INVALID FOR*02/09/2016 Labyrinthitis, unspecified [H83.09] INVALID FOR*02/09/2016 Chronic obstructive pulmonary disease with acut*INVALID FOR* Hyperlipidemia [E78.5] INVALID FOR* Hearing loss [H91.90] INVALID FOR* Overweight (BMI 25.0-29.9) [E66.3] INVALID FOR* Undiagnosed cardiac murmurs [R01.1] INVALID FOR*02/09/2016 Atherosclerosis of [place] coronary artery of [place]*INVALID FOR* CKD (chronic kidney disease) stage 3, GFR 30-59*INVALID FOR* Aortic stenosis, mild [I35.0] INVALID FOR* Colon cancer screening [Z12.11] INVALID FOR*04/12/2016 S/P CABG x 4 [Z95.1] INVALID FOR* Other instructions from your clinician: 1. Increase in gabapentin recommended 2. If new or worsening symptoms, no benefit with gabapentin or intolerance to side effects, recommend follow up with spine surgeon to discuss possible surgical intervention (L4/5 laminectomy) 3. Other medications that could be considered at [facility] or юлия Pennington APRN.EMILIE Office number [phone] Prescriptions ordered this encounter Disp Refills Start End GABAPENTIN 300 MG CAPSULE 270 * 0 10/07/2017 06/08/2018 Sig: Take 1 pill by mouth three times daily. Titrate per chart provided (increase by 1 tab every 4 days until 3600mg or relief of sx) Medications Discontinued During This Encounter gabapentin (NEURONTIN) 300 mg capsule 1 09/17/2017 10/07/2017 Class: Historical Med Route: ORAL Sig: Take 300 mg by mouth three times daily. Disc: Reason for discontinue is not on file. Letter Text Office: Gabapentin 300mg Medication Titration Instructions: AM (# of pills) Noon (# of pills) PM (# of pills) Days 1- 4 1 1 1 Days 5- 8 1 1 2 Days 9-12 2 1 2 Days 13-17 2 2 2 Letter Text Office: Gabapentin 300mg Medication Titration Instructions: AM (# of pills) Noon (# of pills) PM (# of pills) Days 1- 4 1 1 1 Days 5- 8 1 1 2 Days 9-12 2 1 2 Days 13-16 2 2 2 Days 17-20 2 2 3 Days 21-24 3 2 3 Days 25-28 3 3 3 Days 29-32 3 3 4 Days 33-36 4 3 4 Days 37 4 4 4 Encounter Status:Closed by EMILIE PENNINGTON on 10/07/17 PROGRESS Observed: 10/06/2017 Status: COMPLETED Source: [place] 3:52 PM [facility] REPOSITORY HNO ID: [id number] Author: Paresh Martinez (Emilie) Aditi Service: (none) Author Type: Nurse Practitioner Type: Progress Notes Filed: 11/01/2017 10:10 AM Note Text: SPINE SURGERY NEW PATIENT PCP: Param Rivers MD REFERRING PROVIDER: self SUBJECTIVE HISTORY OF PRESENT ILLNESS: Sam Vidales is a 67 year old male presenting alone. CHIEF COMPLAINT: RLE pain DURATION OF SYMPTOMS: Greater Than 1 Year About one year ago, developed bilateral LE pain. The left leg pain is improved. The right leg pain remains. PAIN EVALUATION 10/07/2017 Pain Score: 7 Pain Location: Back-Lower Right side, right hip, sometimes goes down to feet. Description: Sharp Duration Amount of Time: 1 Duration Units: Years Frequency: Continuous No pain with sitting. Intervention: Reposition;Exercise;Medication;Heat;Cold Pain management, injections (4), Pain Radiation: right buttock, right posterior thigh, right lateral ankle Aggravating Factors: Standing, Walking Alleviating Factors: Sitting - no pain Pain Ratio: 0 % back pain, 100 % leg pain DERMATOMAL DISTRIBUTION: Right: S1 AMBULATORY STATUS: Impaired Community Distances Left foot weakness - cannot stand on left toes since May 2017 Denies numbness/tingling. Poor balance, + recent falls. Denies fine motor impairment. Denies bowel/bladder dysfunction. Denies osteoporosis. Denies hx of cancer. + nicotine via chew, no cigarettes Positive hx of DM, last HgbA1C unknown. PREVIOUS CONSERVATIVE TREATMENTS: Opioids Physical Therapy: Date(s) summer 2016 x4.5-5 weeks: no benefit Epidural Blocks: Date(s) multiple since Fall 2016 - some helpful, some not Membrane Stabilizers - gabapentin 300mg PRN [place] 5/325mg PRN, not every day PREVIOUS SPINAL SURGERY: None ACTIVE PROBLEM LIST Type 2 Diabetes Mellitus With Stage 3 Chronic Kidney Disease, With Long-Term Current Use of Insulin (Hcc) Bph Without Urinary Obstruction Chronic Obstructive Pulmonary Disease With Acute Exacerbation (Hcc) Hyperlipidemia Hearing Loss Overweight (Bmi 25.0-29.9) Atherosclerosis of [place] Coronary Artery of [place] Heart Without Angina Pectoris Ckd (Chronic Kidney Disease) Stage 3, Gfr 30-59 Ml/Min Aortic Stenosis, Mild S/P Cabg X 4 PAST MEDICAL HISTORY Diagnosis Date - Acute gastritis without mention of hemorrhage 09/04/05 - Anemia, unspecified - Aortic stenosis, mild 02/09/2016 - Atherosclerosis of [place] coronary artery of [place] heart without angina pectoris 02/09/2016 - Chronic airway obstruction, not elsewhere classified 09/15/2007 - CKD (chronic kidney disease) stage 3, GFR 30-59 ml/min 02/09/2016 - Hyperlipidemia - Hypertension - Hypertrophy of prostate without urinary obstruction and other lower urinary tract symptoms (LUTS) - Personal history of noncompliance with medical treatment, presenting hazards to health - S/P CABG x 4 08/06/2016 - Type 2 diabetes mellitus with stage 3 chronic kidney disease, with long-term current use of insulin (HCC) - Type II or unspecified type diabetes mellitus without mention of complication, not stated as uncontrolled - Unspecified hemorrhoids without mention of complication Hemorrhoids PAST SURGICAL HISTORY Procedure Laterality Date - CABG X (4) ARTERIAL GRAFTS 08/06/2016 - COLONOSCOP W/ OR W/O BRSH SPEC 01/27/04 Colonoscopy-repeat in - COLONOSCOP W/ OR W/O BRSH SPEC 04/12/16 Colonoscopy - EGD W/O [facility] SPECIMEN W/BX 09/04/05 - EGD W/O OR W/BRUSH/WASH 04/12/16 EGD - LEFT HEART CATH,PERCUTANEOUS 09/08/2015 Cardiac cath, L heart - PAST SURGICAL HISTORY OF 10/12/2015 unsuccessful PCI attempt FAMILY HISTORY Problem Relation Age of Onset - Heart Daughter LONG QT - Heart Daughter LONG QT - Allergies Daughter - Allergies Mother - Alzheimer's Disease Father - Hypertension Father - Coronary Artery Disease Father Social History Marital status: Spouse name: Bradley Years of education: Number of children: 2 Occupational History Occupation Employer Comment [employer] Social History Main Topics Smoking status: Former Smoker Packs/day: 0.00 Years: 30.00 Types: Cigarettes Quit date: 07/08/1995 Smokeless status: Current User Types: Chew Comment: chewing Alcohol use: Yes 9.0 oz/week 6 Cans of Beer (12oz) per week Comment: Patient states stopped when given pain medications.approx. 09/11/2017 Drug use: No Social History Narrative [facility] Administration for medications. ALLERGIES Allergen Reactions - Environmental [Othe* Itching hayfever,sneezing,watery eyes MEDICATIONS: HYDROcodone-acetaminophen (NORCO) 5-325 mg per tablet gabapentin (NEURONTIN) 300 mg capsule Take 1 pill by mouth three times daily. Titrate per chart provided (increase by 1 tab every 4 days until 3600mg or relief of sx) traMADol (ULTRAM) 50 mg tablet Take 1 tablet by mouth every 8 hours as needed for Pain (use for moderate to severe pain only). carvedilol (COREG) 3.125 mg tablet Take 1 tablet by mouth twice daily with meals. atorvastatin (LIPITOR) 20 mg tablet Take 1 tablet by mouth daily at bedtime. [facility]. metFORMIN (GLUCOPHAGE) 500 mg tablet Take 1 tablet by mouth twice daily with meals. Takes as needed for heavy meals. [facility]. insulin aspart (NOVOLOG FLEXPEN) 100 unit/mL inpn 4 to 6 units as needed with a meal. [facility]. glipiZIDE (GLUCOTROL) 5 mg tablet Take 10 mg by mouth daily before dinner. [facility]. insulin glargine (LANTUS) 100 unit/mL injection Inject 12- 20 Units subcutaneously daily at bedtime. [facility]. aspirin, enteric coated (ASPIRIN, ENTERIC COATED) 81 mg EC tablet Take 162 mg by mouth once daily. losartan (COZAAR) 100 mg tablet Take one tablet daily FERROUS GLUCONATE 324 MG (36 MG IRON) TAB Take one(1) tablet three times daily. WITH FOOD REVIEW OF SYSTEMS: PAIN ASSESSMENT: See HPI. GENERAL: Denies fever, chills malaise and weight loss. CARDIOVASCULAR: hx of CAD s/p CABG on ASA RESPIRATORY: Denies SOB, sputum production, and hemoptysis. GI: Denies GI ulcers, inflammatory disease, or liver disease. : Denies change in frequency or urgency, kidney disease, and burning with urination. MUSCULOSKELETAL: Positive for See HPI NEURO: Denies CVA, seizures, headaches. ENDOCRINE: Positive for DM on Insulin HEMATOLOGY/LYMPHOLOGY: Denies cancer, bleeding or clotting disorders, anemia,and DVT's. OBJECTIVE: PHYSICAL EXAM BP 146/71 (BP Site: Left Arm, BP Position: Sitting, BP Cuff Size: Regular Adult) Pulse 65 Resp 16 Ht 176.5 cm (5' 9.5) Wt 79.8 kg (176 lb) BMI 25.62 kg/m2 GENERAL APPEARANCE: Well nourished, well developed, and no apparent distress. NEURO PSYCH: Patient oriented to person, place, and time. Mood pleasant. Benign affect. MUSCULOSKELETAL VISUAL INSPECTION CERVICAL: WNL THORACIC: WNL LUMBAR: WNL PALPATION: SPINOUS PROCESS: No pain. PARASPINALS: No pain. MUSCLE BULK: Normal and symmetrical in the upper AND lower extremities. MUSCLE TONE: Normal. MOTOR: Ankle Plantar Flexors Left: 5-, otherwise 5/5 in BUE and BLE. Cannot do single leg calf raises on the left GAIT: Normal. REFLEXES: Biceps Right: 1+, Left: 1+., Brachioradialis Right: 1+, Left: 1+., Knee jerk Right: 1+, Left: 1+., Ankle jerk Right: 0, Left: 0. LONG TRACT SIGNS: No clonus. No Hoffmans. DATA REVIEW [facility] records reviewed MRI lumbar spine 03/2017 - L4/5 central stenosis XR lumbar spine 01/2017 - lumbar spondylosis with no evidence of spondylolisthesis ASSESSMENT/PLAN IMPRESSION: (M48.062) Lumbar stenosis with neurogenic claudication (primary encounter diagnosis) 67 yo M with CC of right leg pain consistent with neurogenic claudication. Exam with left plantar flexion weakness. MRI lumbar spine with L4/5 stenosis. 1. Increase of gabapentin recommended. Trial of gabapentin 300mg recommended up to 3600mg Indications, dosing and side effects reviewed. Advised not to stop abruptly. Q4day titration chart provided along with office phone number. Rx e-scripted. 2. Follow up: PRN. Would be a candidate for a L4/5 decompression. Discussed with patient in detail. The majority of the visit was spent counseling and/or coordinating care for the patient. The patient was counseled regarding above. Total face to face time was 45 minutes. SIGNATURE: Paresh Pennington APRN.CNP PATIENT NAME: Sam Vidales DATE: October 07, 2017 TIME: 11:34 AM PAGER: URINE DRUG SCREEN Collected: 09/24/2017 Status: F Source: DEVAN (CARL) 9:52 AM [facility] REPOSITORY Order Comment: List of Drugs Taken or Suspected? UNK TYPE CODE TESTS RESULT OUT OF RANGE REFERENCE UNITS LAB L505.0075 TO BE Normal CONFIRMED Result Comment: CONFIRMATORY TESTING FOR ALL POSITIVE URINE DRUG SCREEN RESULTS WILL ONLY BE SENT OUT UPON PHYSICIAN ORDER. VISTA Urine Drug Screen methods provide only preliminary analytical test results. A more specific alternate chemical method must be used in order to obtain a confirmed analytical result. Gas chromatography/mass spectrometery (GC/MS) is the preferred confirmatory method. Clinical consideration and professional judgement should be applied to any drug of abuse test result, particularly when preliminary positive results are used. URINE TCA TESTING MUST BE ORDERED SEPARATELY. USE TEST MNEMONIC: [facility] LAB L505.5005 VISTA UDS PH 5 Normal LAB L505.5015 <1000 ng/mL AMPHETAMINES Normal NEGATIVE LAB L505.5025 < 200 ng/mL BARBITIURATES Normal NEGATIVE LAB L505.5035 < 200 ng/mL BENZODIAZIPINE Normal NEGATIVE LAB L505.5045 < 300 ng/mL COCAINE Normal NEGATIVE LAB L505.5055 < 500 ng/mL ECSTACY Normal NEGATIVE LAB L505.5065 < 300 ng/mL METHADONE Normal NEGATIVE LAB L505.5075 < 300 High ng/mL OPIATES POSITIVE LAB L505.5085 < 25 ng/mL PCP Normal NEGATIVE LAB L505.5095 < 50 ng/mL THC Normal NEGATIVE Performed By: #### L505.5000 #### [facility] [address] [place], [address] MISCELLANEOUS LAB Collected: 09/24/2017 Status: F Source: DEVAN PROCEDURE 9:52 AM [facility] REPOSITORY Order Comment: Test(s) Ordered: [id number] TYPE CODE TESTS RESULT OUT OF RANGE REFERENCE UNITS LAB L801.1541 Normal [facility] [place] Result Comment: TEST RESULT UNITS REF INTERVAL [id number] 6+Oxycodone-Bund Amphetamines, Urine Negative ng/mL Vdqgoh=8758 Amphetamine test includes Amphetamine and Methamphetamine. Barbiturate Negative ng/mL Caaxww=084 Benzodiazepines Negative ng/mL Ndwcck=627 Cannabinoids Negative ng/mL Cutoff=20 Cocaine (Metabolite) Negative ng/mL Jumezq=855 Opiates Negative ng/mL Tflzhk=272 Opiate test includes Codeine, Morphine, Hydromorphone, Hydrocodone. Please Note: Confirmation performed by Mass Spectrometry Oxycodone/Oxymorphone, Urine Negative ng/mL Xvoejc=916 Test includes Oxycodone and Oxymorphone TESTING PERFORMED AT [facility]. ORIGINAL REPORT ON FILE IN LAB CONTAINS ADDITIONAL TEST SITE INFORMATION. Performed By: #### L801.1541 #### [facility] [address] [place], [address] ORTHOPEDIC VISIT Observed: 09/21/2017 Status: F Source: [place] REPORT 1:38 PM [facility] REPOSITORY [facility] [address] [place] [address] OFFICE VISIT Date of Service: 09/17/17 MR#: [id number] Acct: [id number] Name: SAM VIDALES Rep #: [id number] : 1950 Provider: Marisol Hoff MD Age/Sex: 67/M [place] [facility] [place] [place]: Signed Intake Intake Visit Reasons: LOW BACK Is patient in pain?: Yes Allergies lisinopril Allergy (Mild, Verified 09/17/17 09:41) unknown Medications Atorvastatin Calcium [Lipitor] 20 mg PO QHS 09/08/15 [History Confirmed 11/14/16] Insulin Aspart [Novolog Flexpen (BKC)] 0 units SC TIDCM 09/08/15 [History Confirmed 11/14/16] Insulin Glargine,Hum.rec.anlog [Lantus] 0 unit SQ TID 09/08/15 [History Confirmed 11/14/16] Losartan Potassium [Cozaar] 100 mg PO DAILY 09/08/15 [History Confirmed 11/14/16] glipiZIDE [Glucotrol] 5 mg PO DAILY@0730 09/08/15 [History Confirmed 11/14/16] Aspirin [Aspirin, Baby] 162 mg PO DAILY@0800 07/26/16 [History Confirmed 11/14/16] hydrochlorothiazide 50 mg tablet 50 mg PO QDAY #30 tab 07/11/17 [Rx] amlodipine 2.5 mg tablet 5 mg PO QDAY tab 07/15/17 [History] carvedilol 6.25 mg tablet 6.25 mg PO BID 07/15/17 [History] [facility] Medical History Other intervertebral disc degeneration, lumbar region (Acute) Other intervertebral disc displacement, lumbosacral region (Acute) Other spondylosis, lumbar region (Acute) Spondylosis of lumbosacral region without myelopathy or radiculopathy (Acute) Spondylosis without myelopathy or radiculopathy, lumbar region (Acute) Social History Smoking Status: Never smoker HPI LOW BACK: Details: SAM VIDALES is a 67 year old RHD M referred by Dr Branham for 30% low back pain and 70% bilateral posterior thigh and calf pain and ache. The symptoms started around 07/2016 after he had CABG and was in heart rehab. His pain increases with standing and walking and his symptoms decrease while sitting and leadning forward. He takes percocet, about 8 tabs per week. Patient has completed physical therapy which made his symptoms worse. Patient sees Dr Branham for injections and he had a right L3-4-5-S1 facet injection in May which was very helpful. Patient denies any numbness or tingling. He denies bowel or bladder issues, gait instability, or difficulty with hand dexterity. He complains of left toes rise weakness since 02/2017. He has had a right ankle fracture without need for surgery. He is on ASA. He has DM and HTN. He does use snuff. 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 He drinks 3 shots of whiskey nightly. ROS [facility] Reports back pain, Reports radiating pain into limb, Reports stiffness Ortho Exam Spine Neuro: Yes Flores's (negative bilaterally), Babinski (downgoing bilaterally) and Straight Leg Raise (negative bilaterally) General: alert, oriented x3 Capillary Refill <2sec: Yes Palpable Pulses: 2+ dp and pt pulses Gait: antalgic, other (able to stand on heels, but difficulty with toes on left) Motor: muscle tone normal throughout Sensory Exam: no sensory deficits noted DTR's: Rt Triceps: 1+, Lt Triceps: 1+, Rt Biceps: 1+, Lt Biceps: 1+, Rt Brachioradialis: 1+, Lt Brachioradialis: 1+, Rt Patellar: 1+, Lt Patellar: 1+, Rt Ankle: 1+, Lt Ankle: 1+ Plantar Reflexes: Downgoing: bilateral Coordination: Romberg test normal SPINE TESTING CERVICAL THORACIC LUMBAR SLR: Negative Musculoskeletal Cervical Spine: cervical ROM normal Thoracic/Lumbar Spine: straight leg raise negative bilaterally, thoraco-lumbar ROM limited, pain with thoraco-lumbar ROM, paraspinal tenderness Strength 0=absent - 5=normal Deltoid R (C5): 5, Deltoid L (C5): 5, R Bicep (C5-6): 5, L Bicep (C5-6): 5, R Wrist Extensor (C6): 5, L Wrist Extensor (C6): 5, R Tricep (C7): 5, L Tricep (C7): 5, R Finger Flexors (C8): 5, L Finger Flexors (C8): 5, R First Dorsal Interossei (C8): 5, L First Dorsal Interossei (C8): 5, R Hip Flexor (L1-3): 5, L Hip Flexor (L1-3): 5, R Quadriceps (L2-4): 5, L Quadriceps (L2-4): 5, R Anterior Tibialis (L4-5): 5, L Anterior Tibialis (L4- 5): 5, R Hamstrings (L5-S1): 5, L Hamstrings (L5-S1): 4, GS (S1): 5, L GS (S1): 4, R Peroneals (S1): 5, L Peroneals (S1): 4 Assessment AND Plan Problems 1. Spinal stenosis, lumbar region with neurogenic claudication M48.062 Plan Imaging: XR lumbar - diffuse spondylosis MRI lumbar spine 03/18/2017 reveals diffuse spondylosis with L4-5 spinal stenosis and chronic L1 compression fracture I/R/P: 1. back pain 2. bilteral leg pain with left gastroc weakness since 02/2017 3. h/o CAD with CABG on ASA 4. smokeless tobacco use 5. alcohol use Mr. Vidales presents with back pain and bilateral leg pain and weakness in the right that is chronic. The natural history and course of the symptomatology of lumbar spinal stenosis was discussed in detail with the patient. I answered all questions regarding the mode of onset, pathophysiology, symptoms, imaging findings, treatment options (both non-operative and operative) regarding his diagnosis. He has failed nonoperative treatment to include physical therapy and injections. Given his weakness, recommend an L4-5 laminectomy. The patient would like to discuss further with his family. He verbalized understanding of risks of permanent nerve damage given his weakness. Provided prescription for gabapentin. Follow up in 1 month or sooner if patient wishes to pursue surgery. Plan of care discussed. All questions answered. The patient verbalized understanding of the disease process and agreed to the treatment plan formulated for this visit. Coding Level of Care Code Off vis,new,level 4 Diagnoses Spinal stenosis, lumbar region with neurogenic claudication M48.062 09/21/17 1338 <Electronically signed by Marisol Hoff MD> Date Marisol Hoff MD Cosigner Signature: Date (if applicable) CC: Loreto Branham MD ALLERGIES ALLERGIES DATE TYPE / CODE NAME / CODE REACTION SEVERITY SOURCE 06/26/2018 Drug lisinopril/ cough [place] [facility] Allergy/[id number](S [id number]( Community NOMED [facility]) RXNORM) Hospital Repository 11/14/2016 Drug No Known Unknown [place] Allergy/[id number](S Allergies/F [facility] N[facility]) [id number]( Hospital XNORM) Repository 08/05/2006 Miscellaneous OTHER ITCHING [facility] Allergy/[id number](S [facility] NOMED CT) Repository ENCOUNTERS ENCOUNTERS ADMIT/DISCHARGE ACCOUNT ADMITTING ENCOUNTER LOCATION SOURCE NUMBER CLASS 07/04/2018 [id number] Ambulatory [facility] ing:[facility]S Repository 06/26/2018/06/26/20 [id number] Ambulatory BMSBuilding:B Devan 18 MS.[facility] Repository 06/17/2018 [id number] Ambulatory BMSBuilding:W Devan [facility] Repository 06/17/2018 [id number] Ambulatory Austinshantell Hartman [facility] ing:CVS Repository 04/08/2018/04/08/20 [id number] Ambulatory Devanshantell [address] ing:PT Repository 03/13/2018/03/13/20 [id number] Ambulatory [address] [place] Repository 02/28/2018/02/29/20 [id number] Ambulatory [address] [place] Repository 02/28/2018/02/29/20 [id number] Ambulatory [address] [place] Repository 01/23/2018/06/23/20 [id number] Ambulatory [address] [place] Repository 12/19/2017/12/21/19 [id number] Ambulatory [address] Repository 12/04/2017/12/05/19 [id number] Ambulatory [address] Repository 12/03/2017/12/05/19 [id number] JORDEN, Ambulatory [address] Repository 11/26/2017/11/28/19 [id number] Ambulatory [address] [place] Repository 11/26/2017/11/27/19 [id number] Ambulatory [address] [place] Repository 11/26/2017 [id number] Ambulatory [facility] Repository 11/26/2017 [id number] Ambulatory [facility] Repository 11/26/2017 [id number] Ambulatory [facility] Repository 11/26/2017/11/27/19 [id number] Ambulatory [address] [place] Repository 11/22/2017/11/23/19 [id number] Ambulatory BMSBuilding:B Devan 18 MS.[facility] Repository 11/19/2017 [id number] Ambulatory [facility] [place] Repository 11/19/2017/11/23/19 [id number] Ambulatory [address] Repository 10/21/2017 [id number] Ambulatory BMSBuilding:Efren Hartman MS.[facility] Repository 10/16/2017/10/17/19 [id number] Ambulatory BMSBuilding:B [place] 18 MS.[facility] [place] Repository 10/07/2017/10/09/19 [id number] Ambulatory [address] Repository 09/24/2017 [id number] Ambulatory Devan Devan [facility] ing:LAB Repository 09/17/2017/09/18/19 [id number] Ambulatory BMSBuilding:B [place] 18 MS.[facility] Repository 08/27/2017 [id number] Ambulatory BMSBuilding:B Devan MS.[facility] Repository PAYERS PAYERS ENCOUNTER GUARANTOR PAYER SUBSCRIBER SOURCE 07/04/2018 SAM Schwartz Primary SAM Hartman [id number] [place] Insurance:MEDICARE CROWNERDOB: [place] PART [place] [facility] [id number] [id number]: (330) Number: Repository [phone] () [id number] Date:2018-06-26 07/04/2018 Secondary SAM Schwartz [place] Insurance:AARPPolicy [facility] Number: [id number] Hospital [id number] Repository Date:1728-11-61XP [facility] [place], [place] [address]ED: 07/04/2018 Tertiary NOT GIVENUNK [place] Insurance:SELF PAY [facility] Number: Effective Repository Date:2018-06-26 06/26/2018 SAM Schwartz Primary SAM Hartman [id number] [place] Insurance:MEDICARE CROWNERDOB: [place] [facility] [id number] Hospital 37243Wjm: (330) Number: Repository [phone] () [id number] Date:2018-05-27 06/26/2018 Secondary SAM Schwartz [place] Insurance:AARPPolicy CROWNERDOB: Community Number: [id number] Hospital [id number] Repository Date:6048-77-30VL [facility] [address]61[address], [place] [address]UO: 06/26/2018 Tertiary NOT GIVENUNK Devan Insurance:SELF PAY [facility] Hospital Number: Effective Repository Date:2018-06-25 06/17/2018 SAM B Primary SAM Hartman [id number] [place] Insurance:MEDICARE CROWNERDOB: [place] PART [place] [facility] [id number] Hospital 65[address]Uyx: (330) Number: Repository [phone] () [id number] Date:2018-05-27 06/17/2018 Secondary SAM B Devan Insurance:AARPPolicy CROWNERDOB: Community Number: [id number] Hospital [id number] Repository Date:4594-62-37MI [facility] [address]69[address], [place] [address]NP: 06/17/2018 Tertiary NOT GIVENUNK [place] Insurance:SELF PAY [facility] Hospital Number: Effective Repository Date:2018-06-17 06/17/2018 SAM B Primary SAM B Devan [id number] [place] Insurance:MEDICARE CROWNERDOB: [place] [facility] [id number] Hospital 275[address]Lgb: (330) Number: Repository [phone] () [id number] Date:2018-05-27 06/17/2018 Secondary SAM B Devan Insurance:AARPPolicy CROWNERDOB: Community Number: [id number] Hospital [id number] Repository Date:2335-14-71[address], [place] [address]WN: 06/17/2018 Tertiary NOT GIVENUNK Devan Insurance:SELF PAY [facility] Hospital Number: Effective Repository Date:2018-05-27 04/08/2018 SAM B Primary SAM B [place] [id number] [place] Insurance:MEDICARE CROWNERDOB: [place] PART A [facility] [id number] Hospital 359[address]Qsv: (330) Number: Repository [phone] () [id number] Date:2014-03-08 04/08/2018 Secondary SAM B Devan Insurance:AARPPolicy CROWNERDOB: Community Number: [id number] Hospital [id number] Repository Date:6563-48-74[address], [place] [address]IR: 04/08/2018 Tertiary NOT GIVENUNK [place] Insurance:SELF PAY [facility] Hospital Number: Effective Repository Date:2018-01-24 11/22/2017 SAM Schwartz Primary SAM Schwartz Devan [id number] [place] Insurance:MEDICARE CROWNERDOB: Community [facility], [place] PART A [facility] [id number] Hospital [address]Rhf: (330) Number: Repository [phone] () [id number] Date:2017-06-11 11/22/2017 Secondary SAM B [place] Insurance:AARPPolicy CROWNERDOB: Community Number: [id number] Hospital [id number] Repository Date:3452-04-76[address] [place] [address]EM: 11/22/2017 Tertiary NOT GIVENUNK [place] Insurance:SELF PAY [facility] Number: Effective Repository Date:2017-06-11 10/21/2017 SAM B Primary SAM Schwartz Devan [id number] [place] Insurance:MEDICARE CROWNERDOB: [facility], [place] PART A [facility] [id number] Hospital 1985[address]Zui: (330) Number: Repository [phone] () [id number] Date:2017-10-21 10/21/2017 Secondary SAM Schwartz Devan Insurance:AARPPolicy CROWNERDOB: Community Number: [id number] Hospital [id number] Repository Date:8953-04-37[address], [place] [address]DA: 10/21/2017 Tertiary NOT GIVENUNK [place] Insurance:SELF PAY [facility] Hospital Number: Effective Repository Date:2017-10-21 10/16/2017 SAM B Primary SAM Schwartz Devan [id number] [place] Insurance:MEDICARE CROWNERDOB: [facility] [facility] [id number] Hospital [address]Dau: (330) Number: Repository [phone] () [id number] Date:2017-10-14 10/16/2017 Secondary SAM B [place] Insurance:AARPPolicy CROWNERDOB: Community Number: [id number] Hospital [id number] Repository Date:3876-55-70N[address], [place] [address]JJ: 10/16/2017 Tertiary NOT GIVENUNK [place] Insurance:SELF PAY [facility]: Effective Repository Date:2017-10-16 09/24/2017 Sam B Primary Sam B [place] [id number] [place] Insurance:MEDICARE CrownerDOB: [facility] [place] [facility] [id number] Hospital [address]Xap: (330) Number: Repository [phone] () [id number] Date:2017-09-24 09/24/2017 Secondary Sam B Devan Insurance:AARPPolicy CrownerDOB: Community Number: [id number] Hospital [id number] Repository Date:9601-25-85ZG [address], [place] [address]EC: 09/24/2017 Tertiary NOT GIVENUNK Devan Insurance:SELF PAY [facility] Number: Effective Repository Date:2017-09-24 09/17/2017 Sam B Primary Sam Schwartz Devan [id number] [place] Insurance:MEDICARE CrownerDOB: [facility] [place] [facility] [id number] Hospital [address]Tja: (330) Number: Repository [phone] () [id number] Date:2017-08-02 09/17/2017 Secondary Sam B [place] Insurance:AARPPolicy CrownerDOB: Community Number: [id number] Hospital [id number] Repository Date:0794-66-37EZ [address], [place] [address]BS: 09/17/2017 Tertiary NOT GIVENUNK [place] Insurance:SELF PAY [facility] Number: Effective Repository Date:2017-08-02 08/27/2017 Sam B Primary Sam B Devan [id number] [place] Insurance:AARPPolicy [place]: [place] Number: [id number] Hospital [address]Hqp: [phone]) [id number] Repository [phone] () Date:4170-50-03OS [address], [place] [address]NY: 08/27/2017 Secondary Sam B [place] Insurance:MEDICARE CrownerDOB: Community PART A BPolicy [id number] Hospital Number: Repository [id number] Date:2017-06-21 08/27/2017 Tertiary NOT GIVENUNK Devan Insurance:SELF PAY [facility] Number: Effective Repository Date:2017-06-21
== END ==
PROVIDERS: Referring Provider Internal Medicine Cardiovascular Disease; Visit Provider Internal Medicine Cardiovascular Disease
DX: I25.10 Atherosclerotic heart disease of native coronary artery without angina pectoris (principal)
CPT/HCPCS: 93306

== ENCOUNTER → 2018-07-04 09:51 | Outpatient (CLI) | payer MEDICARE, OTHER, SELFPAY ==
[2018-06-26 13:46] VITALS: BMI 26.4
--- NOTE | 2018-07-04 09:53 | ART_ITS ---
Reason For Study: PVD Left Segmental Pressures Left brachial= 131mmHg. Left posterior tibial artery = 184mmHg. Left dorsalis pedis artery = 173mmHg. Left digit = 103 mmHg. The left dorsalis pedis waveforms are triphasic. The left posterior tibial artery waveforms are triphasic. Right Segmental Pressures Right brachial= 125mmHg. Right posterior tibial artery = 171mmHg. Right dorsalis pedis artery = 185mmHg. Right digit = 101 mmHg. The right dorsalis pedis waveforms are triphasic. The right posterior tibial artery waveforms are triphasic. Indices The right ankle brachial index by the dorsalis pedis is 1.4. The right ankle brachial index by the posterior tibial artery is 1.3. The right digital-brachial index is .77. The right post exercise ankle brachial index is N/C. The left ankle brachial index by the dorsalis pedis is 1.3. The left ankle brachial index by the posterior tibial artery is 1.4. The left digital-brachial index is .79. The left post exercise ankle brachial index is 1.3. Interpretation Summary Triphasic waveforms are noted at ankle level bilaterally. Resting ankle-brachial indices appear bilaterally normal. Resting digital-brachial indices appear bilaterally normal. Following exercise, ankle pressures augment bilaterally, which is a normal physiological response. There is no evidence of significant arterial occlusive disease on either side. Ordering Physician: Lavell Pinon Referring Physician: Lavell Pinon Performed By: Catalina Muñiz Carley
== END ==
PROVIDERS: Referring Provider Internal Medicine Cardiovascular Disease; Visit Provider Internal Medicine Cardiovascular Disease
DX: I73.9 Peripheral vascular disease, unspecified (principal)
CPT/HCPCS: 93924

== ENCOUNTER → 2020-01-26 | Outpatient (CLI) | payer MEDICARE, OTHER, SELFPAY ==
[2019-09-07 14:16] VITALS: BMI 25.7
--- NOTE | 2020-01-26 10:02 | ECHOD_ITS ---
Reason For Study: Procedure This was a 2D Doppler, Color Flow transthoracic echocardiogram. Exam performed in department. Left Ventricle Mild concentric left ventricular hypertrophy. The estimated ejection fraction is 65 %. Stage 1 diastolic dysfunction. No regional wall motion abnormalities noted. Right Ventricle Normal size and thickness. Normal systolic function. Atria The left atrium is mildly enlarged. Normal right atrium. Normal atrial septum. Mitral Valve Mild diffuse mitral valve thickening. Tricuspid Valve Normal tricuspid valve. Trivial tricuspid valve insufficiency. Right ventricular systolic pressure estimated to be 25 mmHg. Aortic Valve Trisinus/trileaflet aortic valve. Severe focal aortic valve thickening. Mild restriction of the aortic valve. Patient appears to have severe thickening, calcification, and restriction of noncoronary cusp; left and right coronary cusp appear to open normally. Mild aortic stenosis. Peak aortic valve gradient 30 mmHg. Mean aortic valve gradient 16 mmHg. Calculated aortic valve area (continuity equation) is 1.1 cm2. Trivial aortic valve insufficiency. Pulmonic Valve Normal pulmonic valve. Great Vessels Calcified aortic root. Mild atherosclerosis of the aortic arch. Normal inferior vena cava. Inferior vena cava collapse with sniff. Pericardium/Pleural No pericardial effusion. MMode/2D Measurements & Calculations LVIDd: 4.0 cm IVSd: 1.3 cm LVOT diam: 2.0 cm LVIDs: 2.8 cm LVPWd: 1.0 cm LVOT area: 3.0 cm2 RVDd: 2.9 cm FS: 29.4 % Ao root diam: 3.2 cm LAV(MOD-bp): 70.2 ml LA A4 area: 23.8 cm2 LAV(MOD-bp) Indexed: 36.4 ml/m2 LAV(MOD-sp2): 63.3 ml LAV(MOD-sp4): 76.4 ml LA dimension(2D): 4.2 cm RA A4 area: 16.7 cm2 Doppler Measurements & Calculations MV E max josh: 61.5 cm/sec Lat Peak E' Josh: 4.8 cm/sec Med Peak E' Josh: 3.3 cm/sec MV A max josh: 111.0 cm/sec E/E' lat: 12.9 E/E' med: 18.7 MV E/A: 0.55 Ao V2 max: 272.9 cm/sec LV V1 max: 99.2 cm/sec SV(LVOT): 67.2 ml Ao max P.8 mmHg LV V1 max P.9 mmHg Ao V2 mean: 190.3 cm/sec LV V1 mean P.8 mmHg Ao mean P.8 mmHg LV V1 mean: 62.5 cm/sec Ao V2 VTI: 65.0 cm LV V1 VTI: 22.2 cm BARBARA(I,D): 1.0 cm2 BARBARA(V,D): 1.1 cm2 PA V2 max: 62.4 cm/sec TR max josh: 220.3 cm/sec TR max P.5 mmHg Interpretation Summary Mild concentric left ventricular hypertrophy. The estimated ejection fraction is 65 %. Stage 1 diastolic dysfunction. The left atrium is mildly enlarged. Trivial tricuspid valve insufficiency. Right ventricular systolic pressure estimated to be 25 mmHg. Trivial aortic valve insufficiency. Mild aortic stenosis. Peak aortic valve gradient 30 mmHg. Mean aortic valve gradient 16 mmHg. Calculated aortic valve area (continuity equation) is 1.1 cm2. Compared to echo report dated 06/17/2018, no appreciable changes noted. Patient appears to have severe thickening, calcification, and restriction of noncoronary cusp; left and right coronary cusp appear to open normally. Ordering Physician: Lavell Pinon Referring Physician: Lavell Pinon Performed By: Brianne Adkins RDCS and Student
== END | disposition home or self-care (01) ==
PROVIDERS: Referring Provider Internal Medicine Cardiovascular Disease; Visit Provider Internal Medicine Cardiovascular Disease
DX: Z01.818 Encounter for other preprocedural examination (principal); Z95.2 Presence of prosthetic heart valve
CPT/HCPCS: 93306

== ENCOUNTER 2021-08-01 11:45 | Outpatient (CLI) | payer MEDICARE, OTHER, SELFPAY ==
--- NOTE | 2021-08-01 11:50 | EKG12_ITS ---
Test Reason : PRE OP Blood Pressure : / mmHG Vent. Rate : 076 BPM Atrial Rate : 076 BPM P-R Int : 200 ms QRS Dur : 072 ms QT Int : 344 ms P-R-T Axes : 031 -14 -45 degrees QTc Int : 387 ms Normal sinus rhythm Nonspecific ST and T wave abnormality Abnormal ECG Confirmed by NIKHIL JUNE, VIRA ([id number]), slot editor NIMESH EDGE ([id number]) on 08/02/2021 9:07:01 AM Referred By: Dandre Camacho Confirmed By:VIRA TEJEDA MD
[2021-08-01 13:05] LABS: Hematocrit 39.9 % (40-54); Hemoglobin 13.1 g/dL (13.0-16.5); Mean Corp Hgb Conc 32.8 g/dL (32-36); Mean Corpuscular Volume 88.5 fL (80-94); Mean Platelet Vol. 8.8 fl (6.2-12.0); Platelet Count 256 K/mm3 (150-450); RBC Distribution Width CV 12.3 % (11.6-14.6); RBC Distribution Width SD 39.7 fl (35.1-43.9); Red Blood Count 4.51 M/mm3 (4.6-6.2)
[2021-08-01 13:38] LABS: Anion Gap 3 (5-15); BUN 26 mg/dL (7-18); BUN/Creat Ratio 12.1 RATIO (10-20); Chloride 106 mmol/L (98-107); Creatinine, Serum 2.15 mg/dL (0.70-1.30); EST Glomerular Filtration Rate 32 mL/min (>60); Est Glom Filt Rate - Afr Amer 39 mL/min (>60); Glucose 173 mg/dL (74-106); Potassium 4.7 mmol/L (3.5-5.1); Sodium Level 140 mmol/L (136-145)
== END 2021-08-01 23:59 | disposition short-term general hospital (02) ==
LOC: PSN 11:46
PROVIDERS: Referring Provider Orthopaedic Surgery; Visit Provider Orthopaedic Surgery
DX: Z01.810 Encounter for preprocedural cardiovascular examination (principal)
CPT/HCPCS: 36415; 80048; 85027; 93005

== ENCOUNTER 2021-10-09 14:58 | Outpatient (CLI) | payer MEDICARE, OTHER, SELFPAY ==
[2021-10-09 16:24] LABS: Absolute Lymphocyte Count 1.91 X10^3/uL (0.83-4.51); Absolute Neutrophil Count 4.1 X10^3/uL (2.0-7.7); Basophil# 0.06 X10^3/uL; Basophil% 0.8 % (0-1); Eosinophil# 0.62 X10^3/uL; Eosinophils% 8.5 % (0-5); Hematocrit 36.9 % (40-54); Hemoglobin 12.6 g/dL (13.0-16.5); Lymphocyte # 1.91 X10^3/ul (0.83-4.51); Lymphocyte % 26.2 % (19-41); Mean Corp Hgb Conc 34.1 g/dL (32-36); Mean Corpuscular Hgb 29.6 pg (27.0-32.0); Mean Corpuscular Volume 86.8 fL (80-94); Monocyte# 0.56 X10^3/uL; Monocyte% 7.7 % (0-10); NRBC Flagged by Analyzer 0 % (0-5); Neutrophil # 4.12 X10^3/uL (2.7-7.7); Neutrophil % 56.5 % (47-70); Platelet Count 245 K/mm3 (150-450); RBC Distribution Width CV 12.2 % (11.6-14.6); RBC Distribution Width SD 38.6 fl (35.1-43.9); Red Blood Count 4.25 M/mm3 (4.6-6.2); White Blood Count 7.3 K/mm3 (4.4-11.0)
[2021-10-09 17:18] LABS: Anion Gap 4 (5-15); BUN 26 mg/dL (7-18); BUN/Creat Ratio 12.4 RATIO (10-20); Calcium,Total 8.8 mg/dL (8.5-10.1); Chloride 105 mmol/L (98-107); EST Glomerular Filtration Rate 33 mL/min (>60); Est Glom Filt Rate - Afr Amer 40 mL/min (>60); Glucose 126 mg/dL (74-106); Sodium Level 139 mmol/L (136-145); Thyroid Stim Hormone (TSH) 2.86 uIU/mL (0.358-3.74)
== END 2021-10-09 23:59 | disposition home or self-care (01) ==
LOC: LAB 15:00
PROVIDERS: Referring Provider Internal Medicine Cardiovascular Disease; Visit Provider Internal Medicine Cardiovascular Disease
DX: I10 Essential (primary) hypertension (principal); I35.0 Nonrheumatic aortic (valve) stenosis; I25.10 Atherosclerotic heart disease of native coronary artery without angina pectoris; E78.5 Hyperlipidemia, unspecified; Z95.1 Presence of aortocoronary bypass graft
CPT/HCPCS: 36415; 80048; 84443; 85025

== ENCOUNTER → 2021-10-30 | Outpatient (CLI) | payer MEDICARE, OTHER, SELFPAY ==
--- NOTE | 2021-10-30 06:21 | ECHOCS_ITS ---
Reason For Study: s/p CABG Procedure This was a 2D Doppler, Color Flow transthoracic echocardiogram. The study was technically difficult. Contrast injection was performed. Exam performed in department. Left Ventricle Normal LV size. Left ventricular systolic function is normal. The estimated ejection fraction is 60 %. No evidence for diastolic dysfunction. No regional wall motion abnormalities noted. Right Ventricle Normal RV size. Normal systolic function. Atria Normal left atrium. Normal right atrium. No doppler evidence for ASD. Mitral Valve There is no mitral annular calcification. Normal mitral valve. Trivial mitral valve insufficiency. Tricuspid Valve Normal tricuspid valve. Trivial tricuspid valve insufficiency. Right ventricular systolic pressure estimated to be 28 mmHg. Aortic Valve Trisinus/trileaflet aortic valve. Mild diffuse aortic valve thickening. Mild diffuse aortic valve calcification. Moderate aortic stenosis. Trivial aortic valve insufficiency. Pulmonic Valve The pulmonic valve is not well visualized. Great Vessels Normal sized aortic root. Pericardium/Pleural No pericardial effusion. Medication 22 gauge I.V. with prn adaptor inserted into right arm. Diluted definity 2.5ml given slow IV push to enhance endocardial definition. MMode/2D Measurements & Calculations LVIDd: 4.2 cm IVSd: 1.2 cm LVOT diam: 2.0 cm LVIDs: 3.0 cm LVPWd: 1.3 cm RVDd: 3.6 cm FS: 28.0 % LVOT area: 3.1 cm2 Ao root diam: 3.7 cm LAV(MOD-bp): 54.3 ml Aortic Valve Planimetry: 1.1 cm2 LA dimension: 4.0 cm LAV(MOD-bp) Indexed: 27.6 ml/m2 LAV(MOD-sp2): 62.3 ml LAV(MOD-sp4): 44.3 ml LA A4 area: 16.7 cm2 RA A4 area: 17.2 cm2 Time Measurements MV dec time: 0.20 sec Doppler Measurements & Calculations MV E max josh: 63.0 cm/sec Lat Peak E' Josh: 5.6 cm/sec Med Peak E' Josh: 5.6 cm/sec MV A max josh: 107.2 cm/sec E/E' lat: 11.2 E/E' med: 11.2 MV E/A: 0.59 MV V2 max: 132.0 cm/sec MV P1/2t max josh: 92.3 cm/sec Ao V2 max: 340.4 cm/sec MV max P.0 mmHg MV P1/2t: 104.8 msec Ao max P.4 mmHg MV V2 mean: 69.3 cm/sec MV dec slope: 258.1 cm/sec2 Ao V2 mean: 243.3 cm/sec MV mean P.3 mmHg Ao mean P.7 mmHg MV V2 VTI: 30.8 cm MVA(P1/2t): 2.1 cm2 Ao V2 VTI: 80.3 cm MVA(VTI): 2.1 cm2 BARBARA(I,D): 0.82 cm2 BARBARA(V,D): 0.84 cm2 LV V1 max: 93.2 cm/sec SV(LVOT): 65.5 ml PA V2 max: 89.6 cm/sec LV V1 max P.5 mmHg LV V1 mean P.8 mmHg LV V1 mean: 61.4 cm/sec LV V1 VTI: 21.4 cm TR max josh: 250.8 cm/sec TR max P.2 mmHg ECHO/Echo Complete W/ Contrast Interpretation Summary The study was technically difficult. Contrast injection was performed. Left ventricular systolic function is normal. The estimated ejection fraction is 60 %. Trivial mitral valve insufficiency. Trivial tricuspid valve insufficiency. Moderate aortic stenosis. Trivial aortic valve insufficiency. Right ventricular systolic pressure estimated to be 28 mmHg. No evidence for diastolic dysfunction. Ordering Physician: Isrrael Epstein Referring Physician: Isrrael Epstein Performed By: Christopher Elena RCS
--- NOTE | 2021-10-30 09:56 | STRESSREP ---
Stress Test Report Date: 10-30-2021 Procedure: Pharmacologic stress nuclear imaging study Indications: CAD; CABG; aortic valve disease; PAD Consent: Per the patient Procedure: The patient underwent pharmacologic (Regadenoson 0.4mg ) evaluation with a peak heart rate of 84 beats per minute (56%predicted maximal heart rate) and a peak blood pressure of 164/82 mmHg. The baseline ECG demonstrated normal sinus rhythm; nonspecific ST/T wave abnormality. The peak pharmacologic ECG demonstrated no obvious ECG changes. There was an isolated PVC pretest. There was no complaint of chest discomfort during pharmacologic infusion or recovery. The examination was discontinued secondary to completion of protocol. Impression: 1. Pharmacologic (Regadenoson) evaluation 2. Peak pharmacologic ECG with continued nonspecific ST/T wave abnormality with no obvious ECG changes. 3. There was an isolated PVC pretest. 4. Nuclear images pending Myocardial perfusion imaging study: Technique: The patient was injected with 11.7 millicuries of technetium 99m Cardiolite and subsequently rest SPECT Cardiolite nuclear imaging was obtained in the horizontal long, vertical long, and short axis views. The patient underwent pharmacologic (Regadenoson) evaluation with a peak heart rate of 84 beats per minute (56% percent predicted maximal heart rate) and a peak blood pressure of 164/82 mmHg. The patient was injected with 32.3 millicuries of technetium 99m Cardiolite and subsequently stress SPECT Cardiolite nuclear imaging was obtained in the horizontal long, vertical long, and short axis views. A gated Cardiolite study at peak stress was obtained. Interpretation: Rest and stress SPECT Cardiolite nuclear imaging status post realignment, normalization, and attenuation correction demonstrate the appearance on both preattenuation and post attenuation images of an area of diminished tracer uptake in portions of the basal to mid lateral segments which on both preattenuation and post attenuation images appears somewhat more prominent in the mid lateral segments following stress. There is diminished end-systolic thickening and brightening in the aforementioned areas. The gated Cardiolite study demonstrates myocardial thickening and inward wall motion. The reported LVEF is 53%. Impression: 1. Rest and stress SPECT currently nuclear imaging demonstrate an area of diminished myocardial perfusion/tracer uptake in portions of the basal to mid lateral segments compatible with an area of previous myocardial injury/infarction with post stress images demonstrating myocardial perfusion changes patible with an area of viktor-infarct related myocardial ischemia. 2. The gated Cardiolite study reports an LVEF of 53%. This note was generated with [employer] software. It may contain incorrect words, spelling, and punctuation that were not noted in checking the note before signing.
== END | disposition home or self-care (01) ==
LOC: CVS 06:19
PROVIDERS: Referring Provider Internal Medicine Cardiovascular Disease; Visit Provider Internal Medicine Cardiovascular Disease
DX: I25.10 Atherosclerotic heart disease of native coronary artery without angina pectoris (principal); I10 Essential (primary) hypertension; I35.0 Nonrheumatic aortic (valve) stenosis; E78.5 Hyperlipidemia, unspecified; Z95.1 Presence of aortocoronary bypass graft
CPT/HCPCS: 78452; 93017; 93306; A9500; Q9957; A4216; C8929; J2785

== ENCOUNTER → 2021-11-13 | Outpatient (CLI) | payer MEDICARE, OTHER, SELFPAY ==
--- NOTE | 2021-11-13 14:40 | RAD_ITS ---
STUDY: X-RAY CHEST REASON FOR EXAM: Male, 71 years old. Pre Procedure Testing TECHNIQUE: PA and lateral views of the chest. COMPARISON: 08/27/2016 FINDINGS: Status post median sternotomy. The lungs are clear and expanded. There is no demonstrated pleural abnormality. Normal size heart. Normal mediastinum and moy. Normal visualized pulmonary arteries. Normal visualized aortic arch and descending thoracic aorta. Normal visualized thoracic spine. Normal visualized ribs, clavicles, and shoulders. There is no demonstrated abnormality of the visualized soft tissue structures of the upper abdomen. RAD/Chest PA and Lateral IMPRESSION: No active disease. Electronically Signed: Jeferson Feldman MD at 16:48 EDT ,
[2021-11-13 15:22] LABS: Anion Gap 7 (5-15); BUN 29 mg/dL (7-18); BUN/Creat Ratio 10.7 RATIO (10-20); Calcium,Total 8.8 mg/dL (8.5-10.1); Chloride 104 mmol/L (98-107); EST Glomerular Filtration Rate 25 mL/min (>60); Est Glom Filt Rate - Afr Amer 30 mL/min (>60); Glucose 109 mg/dL (74-106); Sodium Level 139 mmol/L (136-145)
== END | disposition home or self-care (01) ==
LOC: LAB 14:18
PROVIDERS: Referring Provider Internal Medicine Cardiovascular Disease; Visit Provider Internal Medicine Cardiovascular Disease
DX: Z01.818 Encounter for other preprocedural examination (principal); R94.39 Abnormal result of other cardiovascular function study; I35.0 Nonrheumatic aortic (valve) stenosis; I25.10 Atherosclerotic heart disease of native coronary artery without angina pectoris; E78.5 Hyperlipidemia, unspecified; Z95.1 Presence of aortocoronary bypass graft
CPT/HCPCS: 36415; 71046; 80048

== ENCOUNTER → 2022-12-24 | Outpatient (CLI) | payer MEDICARE, OTHER, SELFPAY ==
--- NOTE | 2022-12-24 12:53 | ECHOD_ITS ---
Reason For Study: Evaluate Procedure This was a 2D Doppler, Color Flow transthoracic echocardiogram. Exam performed in department. Left Ventricle Normal LV size. Moderate concentric left ventricular hypertrophy. The left ventricular ejection fraction is 60 %. Diastolic function is indeterminate. Right Ventricle Normal right ventricle. Atria The left atrium is mildly enlarged. Normal right atrium. Mitral Valve Mild mitral annular calcification. Trivial mitral valve insufficiency. Tricuspid Valve Trivial tricuspid valve insufficiency. Normal pulmonary artery pressure. Aortic Valve Moderate aortic stenosis. Mild (1+) aortic valve insufficiency. Pulmonic Valve The pulmonic valve is not well visualized. Great Vessels Normal sized aortic root. Pericardium/Pleural No pericardial effusion. MMode/2D Measurements & Calculations LVIDd: 4.6 cm IVSd: 1.6 cm LVOT diam: 2.1 cm LVIDs: 3.2 cm LVPWd: 1.4 cm LVOT area: 3.6 cm2 RVDd: 3.6 cm FS: 31.3 % Ao root diam: 3.0 cm LAV(MOD-bp): 31.0 ml LVAd ap4: 21.0 cm2 ACS: 1.4 cm LAV(MOD-bp) Indexed: 15.9 ml/m2 LVLd ap4: 7.6 cm LAV(MOD-sp2): 42.8 ml EDV(MOD-sp4): 48.2 ml LAV(MOD-sp4): 22.5 ml EDV(sp4-el): 49.2 ml LVAs ap4: 13.2 cm2 LVLs ap4: 7.0 cm ESV(MOD-sp4): 21.8 ml ESV(sp4-el): 21.4 ml EF(MOD-sp4): 54.7 % EF(sp4-el): 56.5 % SV(MOD-sp4): 26.4 ml SV(sp4-el): 27.8 ml LA A4 area: 12.1 cm2 LA dimension(2D): 3.9 cm RA A4 area: 12.1 cm2 TAPSE: 1.2 cm Time Measurements MV dec time: 0.33 sec Doppler Measurements & Calculations MV E max josh: 54.4 cm/sec Lat Peak E' Josh: 6.9 cm/sec Med Peak E' Josh: 4.5 cm/sec MV A max josh: 102.1 cm/sec E/E' lat: 7.9 E/E' med: 12.0 MV E/A: 0.53 Ao V2 max: 320.4 cm/sec AI max josh: 350.7 cm/sec MV dec slope: 163.4 cm/sec2 Ao max P.2 mmHg AI max P.2 mmHg Ao V2 mean: 257.1 cm/sec Ao mean P.2 mmHg AI dec slope: 203.7 cm/sec2 Ao V2 VTI: 71.7 cm AI P1/2t: 504.1 msec AV (velocity ratio): 0.33 BARBARA(I,D): 1.2 cm2 BARBARA(V,D): 1.3 cm2 LV V1 max: 112.9 cm/sec SV(LVOT): 84.8 ml PA V2 max: 79.5 cm/sec LV V1 max P.2 mmHg LV V1 mean P.2 mmHg LV V1 mean: 85.5 cm/sec LV V1 VTI: 23.5 cm TR max josh: 232.7 cm/sec TR max P.7 mmHg ECHO/Echo Complete Interpretation Summary Moderate concentric left ventricular hypertrophy. The left ventricular ejection fraction is 60 %. Diastolic function is indeterminate. The left atrium is mildly enlarged. Mild (1+) aortic valve insufficiency. Moderate aortic stenosis. Ordering Physician: Howard Morton Referring Physician: [facility] Performed By: Lani Morton RDCS, RVT
== END | disposition home or self-care (01) ==
LOC: CVS 12:51
PROVIDERS: Referring Provider Nurse Practitioner Family; Visit Provider Nurse Practitioner Family
DX: I25.10 Atherosclerotic heart disease of native coronary artery without angina pectoris (principal); I35.0 Nonrheumatic aortic (valve) stenosis
CPT/HCPCS: 93306

== ENCOUNTER 2024-07-24 14:02 | Emergency (ER) | payer MEDICARE, OTHER, SELFPAY ==
[2024-07-24] VITALS (7 sets, daily range): BP systolic 95–145; BP diastolic 55–89; PULSE 61–68; RESP 16–20; TEMP 35.4–36.6; O2SAT 90–99; BMI 27.0
--- NOTE | 2024-07-24 14:19 | EDS_ITS ---
HPI <EDILIA Conner - Last Filed: 07/24/24 16:18> History of Present Illness Chief Complaint: Hypoglycemia Onset/Context/Timing Current Severity: 08/17 Narrative Narrative: 74-year-old male was brought in by EMS for hypoglycemic episode. His states she went to lunch and about 1.5 hours later came home and heard him snoring and found him lying on the ground by the bathroom. Per squad his blood sugar was 54 and they gave glucagon and then placed and IV with D10 but he pulled out the IV after 75 mL of dextrose went in. Patient does not recall the event. [facility] <EDILIA Conner - Last Filed: 07/24/24 16:18> [facility] Medical History Abnormal stress test Essential hypertension Claudication of lower extremity Non-rheumatic aortic stenosis Atherosclerosis of coronary artery of [place] heart without angina pectoris Hyperlipidemia Type 2 diabetes mellitus without complications DDD (degenerative disc disease), lumbar Spinal stenosis of lumbar region without neurogenic claudication Spondylosis of lumbosacral region without myelopathy or radiculopathy Spondylosis without myelopathy or radiculopathy, lumbar region Other spondylosis, lumbar region Other intervertebral disc displacement, lumbosacral region Other intervertebral disc degeneration, lumbar region Home Medications ?Medication ?Instructions ?Recorded ?Last Taken ?Type atorvastatin 40 mg tablet 40 mg PO QHS #30 tabs 03/28/20 Unknown Rx aspirin 81 mg tablet,delayed 81 mg PO DAILY 06/14/21 Unknown History release (Adult Aspirin Regimen) ezetimibe 10 mg tablet (Zetia) 10 mg PO DAILY 10/09/21 Unknown History insulin glargine 100 unit/mL 35 unit subcut DAILY 10/09/21 Unknown History subcutaneous solution (Lantus U-100 Insulin) isosorbide mononitrate 30 mg 30 mg PO DAILY #30 tabs 01/05/22 Unknown Rx tablet,extended release 24 hr minoxidil 2.5 mg tablet 5 mg PO DAILY 04/30/22 Unknown History empagliflozin 25 mg tablet 12.5 mg PO DAILY 11/29/22 Unknown History (Jardiance) carvedilol 25 mg tablet 25 mg PO BID 07/19/23 Unknown History chlorthalidone 25 mg tablet 25 mg PO DAILY 07/19/23 Unknown History dulaglutide 0.75 mg/0.5 mL 0.75 mg subcut QWEEK 07/19/23 Unknown History subcutaneous pen injector (Trulicity) amlodipine 10 mg tablet 5 mg PO DAILY HTN 04/14/24 Unknown History Allergy/AdvReac Type Severity Reaction Status Date / Time lisinopril AdvReac Mild cough Verified 07/24/24 14:09 Family History Sister Heart disease Daughter Heart disease Surgical History H/O coronary artery bypass surgery (08/06/16) Social History Smoking Status: Former smoker how long ago did patient quit smokin alcohol intake: current alcohol intake frequency: a few times a week substance use type: does not use caffeine: Yes Type: coffee Number of servings: 5 ROS <EDILIA Conner - Last Filed: 07/24/24 16:18> ROS ED ROS Narrative Constitutional: Negative for fever, chills, malaise. CVS: Negative for chest pain. Respiratory: Negative for shortness of breath. GI: Negative for abdominal pain, nausea, vomiting. EXAM <EDILIA Conner - Last Filed: 07/24/24 16:18> Physical Exam Narrative Exam Narrative: CONST: Patient sitting in no acute distress. EYES: Normal inspection. NECK: Normal inspection. RESP: No respiratory distress, CTAB. CVS: Regular rate and rhythm, no murmur, no gallop. SKIN: Color normal, no rash, warm, dry, intact. EXTREMITIES: Normal appearance, no pedal edema. NEURO: Alert and answering questions appropriately. PSYCH: Normal affect. Const Vital Signs: 07/24/24 14:04 07/24/24 14:31 07/24/24 14:32 Temperature 95.8 F L Temperature Source Temporal Pulse Rate 68 68 Respiratory Rate 20 H 20 H Respiratory Effort Normal Non-Labored Respiratory Pattern Normal Blood Pressure 126/89 H 145/84 H Blood Pressure Mean 101 104 Pulse Ox 99 90 Oxygen Delivery Method Room Air 07/24/24 15:02 07/24/24 16:03 Temperature Temperature Source Pulse Rate 61 62 Respiratory Rate 18 16 Respiratory Effort Respiratory Pattern Blood Pressure 120/70 116/69 Blood Pressure Mean 86 84 Pulse Ox 98 97 Oxygen Delivery Method Room Air Room Air <Dr. Ayaz Hendrickson MD - Last Filed: 07/24/24 15:55> Physical Exam Const Vital Signs: 07/24/24 14:04 07/24/24 14:31 07/24/24 14:32 Temperature 95.8 F L Temperature Source Temporal Pulse Rate 68 68 Respiratory Rate 20 H 20 H Respiratory Effort Normal Non-Labored Respiratory Pattern Normal Blood Pressure 126/89 H 145/84 H Blood Pressure Mean 101 104 Pulse Ox 99 90 Oxygen Delivery Method Room Air 07/24/24 15:02 07/24/24 16:03 Temperature Temperature Source Pulse Rate 61 62 Respiratory Rate 18 16 Respiratory Effort Respiratory Pattern Blood Pressure 120/70 116/69 Blood Pressure Mean 86 84 Pulse Ox 98 97 Oxygen Delivery Method Room Air Room Air MDM <EDILIA Conner - Last Filed: 07/24/24 16:18> MDM MDM Narrative Medical decision making narrative: History gathered from: Patient, spouse, EMS Differential includes hypoglycemia, electrolyte abnormality, infectious etiology, medication misuse 74-year-old male with type 2 diabetes presents after hypoglycemic episode. His states she was gone for about 1.5 hours and then found him snoring on the bathroom floor. Per EMS BGT was 54. They started D10 but he pulled the IV out. He arrives awake alert no distress. He does not recall the event. He has no complaints. He is hemodynamically stable other than temp of 95.8. Nursing staff placed a Jae hugger. He has no external signs of head trauma or injury. He is moving all extremities and neurovascularly intact. Blood sugar was still in the 50s so the nursing staff reconnected the D10 from EMS and finish the bag. CBC is unremarkable. BMP shows stable chronic kidney disease with BUN of 42, creatinine 2.85. Electrolytes are unremarkable. Total CK is 231 so he does not have rhabdomyolysis. EKG is nonischemic and troponin is 27. After finishing the EMS D10 he again became hypoglycemic in the 40s. He was given a sandwich and [employer] and monitored. Now that he is much more awake and alert he tells me he takes Jardiance and 27 to 30 units of Lantus every morning. He is prescribed Trulicity but has not taken it for about a month due to side effect of nausea. Due to recurrent hypoglycemia I contacted the hospitalist for adm ission. I have personally performed a face to face assessment of the patient and have reviewed the SUBHASH Note. I performed a substantive portion of the visit including all aspects of the following. My ordoñez findings include: History is [74-year-old male history of diabetes and chronic kidney disease. He takes Trulicity for his diabetes. went out to lunch today with a friend. She left around 11:00 this morning. About an hour and a half later she had come home heard him snoring went to check on him and found him down in the bathroom. Squad was called they found a low blood sugar and brought the patient in. He denies any complaints. Denies any injuries from falling to the ground. said he was fine this morning. He has not recently been ill. He denies any headache or neck pain. He denies any chest or abdominal pain. He denies any recent fever.] Exam is [well-appearing 74-year-old male. Lying in bed. Vital signs are stable. Nurses having difficulty getting a temperature on him. H EENT exam pupils round react light. Moist mucous membranes. No trauma to his face or scalp. Nontender. Neck nontender. Trachea midline. Lungs clear to auscultation. Heart regular rhythm rate about 70 no murmur. Chest wall and ribs nontender. No ecchymosis or bruising. No crepitance or subcu air. Abdomen soft nontender. Normal bowel sounds no peritoneal signs. Pelvic girdle intact. Moving all 4 extremities. 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 Wrists elbows and shoulders are nontender. Hips are nontender. Dorsi plantarflexion intact. Lower extremities are nontender without edema. Neurologically is awake and alert. He is hard of hearing but he is answering questions following commands. He has no focal motor deficits.] Medical Decision Making [74-year-old diabetic male found down at home with a low blood sugar. Currently he has no obvious signs of trauma on him. His exam is relatively benign. Screening labs to be obtained. His is here and at bedside is helping with the history. Patient has no complaints.] Other additions or changes: [None] Lab Data Attestation: I reviewed the patient's lab results. Labs: Laboratory Results - last 24 hr 07/24/24 07/24/24 07/24/24 14:11 14:15 14:31 WBC 9.7 RBC 5.13 Hgb 15.5 Hct 45.8 MCV 89.3 MCH 30.2 MCHC 33.8 RDW Std Deviation 39.3 RDW Coeff of Samir 12.0 Plt Count 218 MPV 9.3 Immature Gran % (Auto) 0.400 Neut % (Auto) 64.6 Lymph % (Auto) 20.8 [place] % (Auto) 8.2 Eos % (Auto) 5.2 H Baso % (Auto) 0.8 Absolute Neuts (auto) 6.3 Absolute Lymphs (auto) 2.03 Nucleated RBC % 0 Sodium 143 Potassium 4.2 Chloride 111 H Carbon Dioxide 27.0 Anion Gap 6 BUN 42 H Creatinine 2.85 H Estim Creat Clear Calc 22.40 Est GFR (MDRD) Af Amer 28 L Est GFR (MDRD) Non-Af 23 L BUN/Creatinine Ratio 14.7 Glucose 65 L Calcium 9.7 Total Creatine Kinase 231 Troponin I High Sens 27 Urine Color Urine Clarity Urine pH Ur Specific [place] Urine Protein Urine Glucose (UA) Urine Ketones Urine Occult Blood Urine Nitrite Urine Bilirubin Urine Urobilinogen Ur Leukocyte Esterase Urine RBC Urine WBC Ur Squamous Epith Cells Ur Renal Epithelial Cell Urine Bacteria Urine Mucus POC Glucose 54 L 105 07/24/24 07/24/24 15:00 15:33 WBC RBC Hgb Hct MCV MCH MCHC RDW Std Deviation RDW Coeff of Samir Plt Count MPV Immature Gran % (Auto) Neut % (Auto) Lymph % (Auto) [place] % (Auto) Eos % (Auto) Baso % (Auto) Absolute Neuts (auto) Absolute Lymphs (auto) Nucleated RBC % Sodium Potassium Chloride Carbon Dioxide Anion Gap BUN Creatinine Estim Creat Clear Calc Est GFR (MDRD) Af Amer Est GFR (MDRD) Non-Af BUN/Creatinine Ratio Glucose Calcium Total Creatine Kinase Troponin I High Sens Urine Color Yellow Urine Clarity Clear Urine pH 6.5 Ur Specific [place] 1.010 Urine Protein 500 H Urine Glucose (UA) 250 H Urine Ketones Negative Urine Occult Blood 50 H Urine Nitrite Negative Urine Bilirubin Negative Urine Urobilinogen Normal Ur Leukocyte Esterase Negative Urine RBC 5-10 SEEN Urine WBC 0-5 SEEN Ur Squamous Epith Cells 0 SEEN Ur Renal Epithelial Cell 0-5 SEEN Urine Bacteria 0 SEEN Urine Mucus 0 SEEN POC Glucose 48 L Radiography Diagnostic Testing: Clinical Impression(s) from Imaging Studies Chest X-Ray 07/24/24 15:40 IMPRESSION: No acute abnormality is seen. Electronically Signed: Ba Lozano MD at 15:54 EST , EKG Initial EKG: Attestation: I personally reviewed and interpreted this EKG as follows: Interpretation: Sinus Rhythm and No Acute Injury Pattern Comments: Sinus rhythm with first-degree AV block with PVCs at 68 bpm Prolonged QTc of [address] change <Dr. Ayaz Hendrickson MD - Last Filed: 07/24/24 15:55> MDM MDM Narrative Medical decision making narrative: I have personally performed a face to face assessment of the patient and have reviewed the SUBHASH Note. I performed a substantive portion of the visit including all aspects of the following. My ordoñez findings include: History is [74-year-old male history of diabetes and chronic kidney disease. He takes Trulicity for his diabetes. went out to lunch today with a friend. She left around 11:00 this morning. About an hour and a half later she had come home heard him snoring went to check on him and found him down in the ba throom. Squad was called they found a low blood sugar and brought the patient in. He denies any complaints. Denies any injuries from falling to the ground. said he was fine this morning. He has not recently been ill. He denies any headache or neck pain. He denies any chest or abdominal pain. He denies any recent fever.] Exam is [well-appearing 74-year-old male. Lying in bed. Vital signs are stable. Nurses having difficulty getting a temperature on him. H EENT exam pupils round react light. Moist mucous membranes. No trauma to his face or scalp. Nontender. Neck nontender. Trachea midline. Lungs clear to auscultation. Heart regular rhythm rate about 70 no murmur. Chest wall and ribs nontender. No ecchymosis or bruising. No crepitance or subcu air. Abdomen soft nontender. Normal bowel sounds no peritoneal signs. Pelvic girdle intact. Moving all 4 extremities. 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 Wrists elbows and shoulders are nontender. Hips are nontender. Dorsi plantarflexion intact. Lower extremities are nontender without edema. Neurologically is awake and alert. He is hard of hearing but he is answering questions following commands. He has no focal motor deficits.] Medical Decision Making [74-year-old diabetic male found down at home with a low blood sugar. Currently he has no obvious signs of trauma on him. His exam is relatively benign. Screening labs to be obtained. His is here and at bedside is helping with the history. Patient has no complaints.] Other additions or changes: [None] History & Record Review Discussion w/independent historian: Patient and Family Additional record(s) reviewed:: Prior inpatient record, Prior outpatient record, Prior ED visit, Prior labs and No prior records Lab Data Attestation: I reviewed the patient's lab results. Lab results narrative: CBC shows a white count of 9. H&H of 15 and 45. Platelets 218. Electrolytes show sodium 143. Gap 6. BUN is 42 creatinine is 2.85 he has a history of chronic kidney disease. These are along his baseline. CPKs 231. Troponin is 27. Macroscopic UA shows 50 occult blood. No nitrites. Glucose. Chest x-ray unremarkable. Chronic changes. Labs: Laboratory Results - last 24 hr 07/24/24 07/24/24 07/24/24 14:11 14:15 14:31 WBC 9.7 RBC 5.13 Hgb 15.5 Hct 45.8 MCV 89.3 MCH 30.2 MCHC 33.8 RDW Std Deviation 39.3 RDW Coeff of Samir 12.0 Plt Count 218 MPV 9.3 Immature Gran % (Auto) 0.400 Neut % (Auto) 64.6 Lymph % (Auto) 20.8 [place] % (Auto) 8.2 Eos % (Auto) 5.2 H Baso % (Auto) 0.8 Absolute Neuts (auto) 6.3 Absolute Lymphs (auto) 2.03 Nucleated RBC % 0 Sodium 143 Potassium 4.2 Chloride 111 H Carbon Dioxide 27.0 Anion Gap 6 BUN 42 H Creatinine 2.85 H Estim Creat Clear Calc 22.40 Est GFR (MDRD) Af Amer 28 L Est GFR (MDRD) Non-Af 23 L BUN/Creatinine Ratio 14.7 Glucose 65 L Calcium 9.7 Total Creatine Kinase 231 Troponin I High Sens 27 Urine Color Urine Clarity Urine pH Ur Specific [place] Urine Protein Urine Glucose (UA) Urine Ketones Urine Occult Blood Urine Nitrite Urine Bilirubin Urine Urobilinogen Ur Leukocyte Esterase Urine RBC Urine WBC Ur Squamous Epith Cells Ur Renal Epithelial Cell Urine Bacteria Urine Mucus POC Glucose 54 L 105 07/24/24 07/24/24 15:00 15:33 WBC RBC Hgb Hct MCV MCH MCHC RDW Std Deviation RDW Coeff of Samir Plt Count MPV Immature Gran % (Auto) Neut % (Auto) Lymph % (Auto) [place] % (Auto) Eos % (Auto) Baso % (Auto) Absolute Neuts (auto) Absolute Lymphs (auto) Nucleated RBC % Sodium Potassium Chloride Carbon Dioxide Anion Gap BUN Creatinine Estim Creat Clear Calc Est GFR (MDRD) Af Amer Est GFR (MDRD) Non-Af BUN/Creatinine Ratio Glucose Calcium Total Creatine Kinase Troponin I High Sens Urine Color Yellow Urine Clarity Clear Urine pH 6.5 Ur Specific [place] 1.010 Urine Protein 500 H Urine Glucose (UA) 250 H Urine Ketones Negative Urine Occult Blood 50 H Urine Nitrite Negative Urine Bilirubin Negative Urine Urobilinogen Normal Ur Leukocyte Esterase Negative Urine RBC 5-10 SEEN Urine WBC 0-5 SEEN Ur Squamous Epith Cells 0 SEEN Ur Renal Epithelial Cell 0-5 SEEN Urine Bacteria 0 SEEN Urine Mucus 0 SEEN POC Glucose 48 L Radiography Chest X-Ray - ED: 1 View, Read by ED Physician, Heart, Lungs, Mediastinum, Bony Structures, No Acute Disease and Chronic Changes Diagnostic Testing: Clinical Impression(s) from Imaging Studies Chest X-Ray 07/24/24 15:40 IMPRESSION: No acute abnormality is seen. Electronically Signed: Ba Lozano MD at 15:54 EST , Chest x-ray, portable, single view interpreted by myself shows prior sternotomy. Normal cardiac silhouette. No pneumonia. Sternotomy wires. Chronic changes. Discharge Plan Triage Chief Complaint: Hypoglycemia ED Midlevel Provider: Maci Norton ED Provider: Ayaz Hendrickson Dx/Rx/DC Orders Clinical Impression: Hypoglycemia, Type 2 diabetes mellitus, Hypothermia, Fall, History of chronic kidney disease Prescriptions: No Action Lantus U-100 Insulin 100 unit/mL solution 35 unit SC DAILY atorvastatin 40 mg tablet 40 mg PO QHS Qty: 30 11RF ezetimibe [Zetia] 10 mg tablet 10 mg PO DAILY minoxidil 2.5 mg tablet 5 mg PO DAILY carvedilol 25 mg tablet 25 mg PO BID Rx Instructions: must administer with a meal/food Jardiance 25 mg tablet 12.5 mg PO DAILY Trulicity 0.75 mg/0.5 mL pen injector 0.75 mg subcut QWEEK amlodipine 10 mg tablet 5 mg PO DAILY aspirin [Adult Aspirin Regimen] 81 mg tablet,delayed release (DR/EC) 81 mg PO DAILY isosorbide mononitrate 30 mg tablet extended release 24 hr 30 mg PO DAILY Qty: 30 12RF chlorthalidone 25 mg tablet 25 mg PO DAILY [facility] [Primary Care Provider] - Print Language: Latvian
[2024-07-24 14:24] LABS: Absolute Lymphocyte Count 2.03 X10^3/uL (0.83-4.51); Absolute Neutrophil Count 6.3 X10^3/uL (2.0-7.7); Basophil# 0.08 X10^3/uL; Basophil% 0.8 % (0-1); Eosinophil# 0.51 X10^3/uL; Eosinophils% 5.2 % (0-5); Hematocrit 45.8 % (40-54); Hemoglobin 15.5 g/dL (13.0-16.5); Lymphocyte # 2.03 X10^3/ul (0.83-4.51); Lymphocyte % 20.8 % (19-41); Mean Corp Hgb Conc 33.8 g/dL (32-36); Mean Corpuscular Hgb 30.2 pg (27.0-32.0); Mean Corpuscular Volume 89.3 fL (80-94); Mean Platelet Vol. 9.3 fl (6.2-12.0); Monocyte% 8.2 % (0-10); NRBC Flagged by Analyzer 0 % (0-5); Neutrophil # 6.28 X10^3/uL (2.7-7.7); Neutrophil % 64.6 % (47-70); Platelet Count 218 K/mm3 (150-450); RBC Distribution Width SD 39.3 fl (35.1-43.9); Red Blood Count 5.13 M/mm3 (4.6-6.2); White Blood Count 9.7 K/mm3 (4.4-11.0)
[2024-07-24] MEDS: Ondansetron 4 MG/2 ML Vial IV (14:43)
[2024-07-24 14:46] LABS: Anion Gap 6 (5-15); BUN 42 mg/dL (7-18); BUN/Creat Ratio 14.7 RATIO (10-20); Calcium,Total 9.7 mg/dL (8.5-10.1); Chloride 111 mmol/L (98-107); Creatinine, Serum 2.85 mg/dL (0.70-1.30); EST Glomerular Filtration Rate 23 mL/min (>60); Est Glom Filt Rate - Afr Amer 28 mL/min (>60); Glucose 65 mg/dL (74-106); Potassium 4.2 mmol/L (3.5-5.1); Sodium Level 143 mmol/L (136-145)
[2024-07-24 15:02] LABS: CPK Total, Creatine Kinase 231 U/L (39-308); Troponin-I HS 27 pg/mL (3.0-78.0)
[2024-07-24 15:09] LABS: Bacteria 0 SEEN /hpf (None Seen); Mucous, Urine 0 SEEN /hpf (<or=2+); Squamous Epithelial Cells - UA 0 SEEN /hpf (0-5)
[2024-07-24 15:11] LABS: Color, Urine Yellow (Yellow); Glucose, Dipstick 250 mg/dl (Normal); Ketone-Dipstick Negative (Negative); Leukocyte Esterase-Dipstick Negative /ul (Negative); Nitrite-Dipstick Negative (Negative); Occult Blood-Urine 50 /ul (Negative); Protein-Dipstick 500 mg/dl (Negative); Urine Bilirubin Dipstick Negative (Negative); Urine Clarity Clear (Clear); Urine Urobilinogen Normal (Normal); Urine pH 6.5 (5.0 - 8.0)
[2024-07-24 15:22] LABS: Bedside Glucose 54 mg/dL (74-106)
[2024-07-24 15:22] LABS: Bedside Glucose 105 mg/dL (74-106)
[2024-07-24 15:22] LABS: Red Blood Cells-Urine 5-10 SEEN /hpf (0-5); White Blood Cells 0-5 SEEN /hpf (0-5)
[2024-07-24 15:24] LABS: Renal Epithelial Cells 0-5 SEEN /hpf (0-5)
--- NOTE | 2024-07-24 15:40 | RAD_ITS ---
STUDY: X-RAY CHEST REASON FOR EXAM: Male, 74 years old. Found down TECHNIQUE: Single AP portable view of the chest. COMPARISON: Comparison is made with prior study dated November 13, 2021. FINDINGS: EKG electrodes are seen. The lungs are clear and expanded. There is no demonstrated pleural abnormality. Sternal cerclage wires and vascular clips are present from a prior sternotomy and coronary artery bypass graft procedure (CABG). Normal mediastinum and moy. Normal visualized pulmonary arteries. There is atherosclerotic tortuosity of the aortic arch and descending thoracic aorta. Normal visualized thoracic spine. Normal visualized ribs, clavicles, and shoulders. There is no demonstrated abnormality of the visualized soft tissue structures of the upper abdomen. RAD/Chest 1 View (Portable) IMPRESSION: No acute abnormality is seen. Electronically Signed: Ba Lozano MD at 15:54 EST ,
[2024-07-24 15:52] LABS: Bedside Glucose 48 mg/dL (74-106)
--- NOTE | 2024-07-24 16:16 | HP.PCM.HOS_ITS ---
HPI - General HPI Narrative SRIRAM MADDOX, is a 74 M who presents [facility] Medical History Abnormal stress test Essential hypertension Claudication of lower extremity Non-rheumatic aortic stenosis Atherosclerosis of coronary artery of [place] heart without angina pectoris Hyperlipidemia Type 2 diabetes mellitus without complications DDD (degenerative disc disease), lumbar Spinal stenosis of lumbar region without neurogenic claudication Spondylosis of lumbosacral region without myelopathy or radiculopathy Spondylosis without myelopathy or radiculopathy, lumbar region Other spondylosis, lumbar region Other intervertebral disc displacement, lumbosacral region Other intervertebral disc degeneration, lumbar region Home Medications ?Medication ?Instructions ?Recorded ?Last Taken ?Type atorvastatin 40 mg tablet 40 mg PO QHS #30 tabs 03/28/20 Unknown Rx aspirin 81 mg tablet,delayed 81 mg PO DAILY 06/14/21 Unknown History release (Adult Aspirin Regimen) ezetimibe 10 mg tablet (Zetia) 10 mg PO DAILY 10/09/21 Unknown History insulin glargine 100 unit/mL 35 unit subcut DAILY 10/09/21 Unknown History subcutaneous solution (Lantus U-100 Insulin) isosorbide mononitrate 30 mg 30 mg PO DAILY #30 tabs 01/05/22 Unknown Rx tablet,extended release 24 hr minoxidil 2.5 mg tablet 5 mg PO DAILY 04/30/22 Unknown History empagliflozin 25 mg tablet 12.5 mg PO DAILY 11/29/22 Unknown History (Jardiance) carvedilol 25 mg tablet 25 mg PO BID 07/19/23 Unknown History chlorthalidone 25 mg tablet 25 mg PO DAILY 07/19/23 Unknown History dulaglutide 0.75 mg/0.5 mL 0.75 mg subcut QWEEK 07/19/23 Unknown History subcutaneous pen injector (Trulicity) amlodipine 10 mg tablet 5 mg PO DAILY HTN 04/14/24 Unknown History Allergy/AdvReac Type Severity Reaction Status Date / Time lisinopril AdvReac Mild cough Verified 07/24/24 14:09 Family History Sister Heart disease Daughter Heart disease Surgical History H/O coronary artery bypass surgery (08/06/16) Social History Smoking Status: Former smoker how long ago did patient quit smokin alcohol intake: current alcohol intake frequency: a few times a week substance use type: does not use caffeine: Yes Type: coffee Number of servings: 5 Vital Signs Vital Signs Vital Signs: 07/24/24 14:04 07/24/24 14:31 07/24/24 14:32 Temperature 95.8 F L Temperature Source Temporal Pulse Rate 68 68 Respiratory Rate 20 H 20 H Respiratory Effort Normal Non-Labored Respiratory Pattern Normal Blood Pressure 126/89 H 145/84 H Blood Pressure Mean 101 104 Pulse Ox 99 90 Oxygen Delivery Method Room Air 07/24/24 15:02 07/24/24 16:03 Temperature Temperature Source Pulse Rate 61 62 Respiratory Rate 18 16 Respiratory Effort Respiratory Pattern Blood Pressure 120/70 116/69 Blood Pressure Mean 86 84 Pulse Ox 98 97 Oxygen Delivery Method Room Air Room Air Weight Weight: 83 kg Body Mass Index (BMI) 27.0 Results Lab / Micro Data 07/24/24 14:15 07/24/24 14:15 Labs: Laboratory Results - last 24 hr 07/24/24 14:11: POC Glucose 54 L 07/24/24 14:15: WBC 9.7, RBC 5.13, Hgb 15.5, Hct 45.8, MCV 89.3, MCH 30.2, MCHC 33.8, RDW Std Deviation 39.3, RDW Coeff of Samir 12.0, Plt Count 218, MPV 9.3, Immature Gran % (Auto) 0.400, Neut % (Auto) 64.6, Lymph % (Auto) 20.8, [place] % (Auto) 8.2, Eos % (Auto) 5.2 H, Baso % (Auto) 0.8, Absolute Neuts (auto) 6.3, Absolute Lymphs (auto) 2.03, Nucleated RBC % 0, Sodium 143, Potassium 4.2, C hloride 111 H, Carbon Dioxide 27.0, Anion Gap 6, BUN 42 H, Creatinine 2.85 H, Estim Creat Clear Calc 22.40, Est GFR (MDRD) Af Amer 28 L, Est GFR (MDRD) Non-Af 23 L, BUN/Creatinine Ratio 14.7, Glucose 65 L, Calcium 9.7, Total Creatine Kinase 231, Troponin I High Sens 27 07/24/24 14:31: POC Glucose 105 07/24/24 15:00: Urine Color Yellow, Urine Clarity Clear, Urine pH 6.5, Ur Specific [place] 1.010, Urine Protein 500 H, Urine Glucose (UA) 250 H, Urine Ketones Negative, Urine Occult Blood 50 H, Urine Nitrite Negative, Urine Bilirubin Negative, Urine Urobilinogen Normal, Ur Leukocyte Esterase Negative, Urine RBC 5-10 SEEN, Urine WBC 0-5 SEEN, Ur Squamous Epith Cells 0 SEEN, Ur Renal Epithelial Cell 0-5 SEEN, Urine Bacteria 0 SEEN, Urine Mucus 0 SEEN 07/24/24 15:33: POC Glucose 48 L Imaging Radiology Impression Chest X-Ray 07/24/24 15:40 IMPRESSION: No acute abnormality is seen. Electronically Signed: Ba Lozano MD at 15:54 EST ,
[2024-07-24 16:33] LABS: Bedside Glucose 79 mg/dL (74-106)
[2024-07-24 17:11] LABS: Bedside Glucose 227 mg/dL (74-106)
--- NOTE | 2024-07-24 18:04 | CASEMGMT ---
Addendum entered by Yadira Blum 07/24/24 19:48: Per doctor's note, patient was discharged home in stable condition after hospitalist requested a repeat blood sugar draw prior to admission. ASAEL Arriaga, SANDIE Original Note: Care Management Face to Face with patient for initial transition planning/care coordination assessment in the ED. This commercial real estate underwriter introduced self and role at [facility]. Patient lying in bed, alert and oriented. Patient's , Joan, bedside; patient gave permission for SW to speak in front of patient's . Patient willing to participate in assessment and is able to answer all questions appropriately. Admitting Diagnosis: Hypoglycemia, fall Other diagnosis history: chronic kidney disease, type 2 diabetes mellitus PCP: Dr. Noble Arcos ([place] in [place]) Specialists: Dr. Deras, [facility]. Special Needs Librarian through [facility]. Dr. Chiang through [facility]. Preferred Pharmacy: [facility] Insurance: Medicare A + B (primary). AARP (secondary). Prescription Benefit: yes; patient states receiving medication through the [place]. Living Will/HPOA: patient's , Joan, is patient's HCPOA. Patient's advance directives were not found on file. LNOK: , Joan, and 2 daughters. Living Arrangements: patient lives with in a 1 story home with 2-3 steps to enter; patient is independent with all ADLs. Transportation: patient drives. DME: walker, cane, access to relative's wheelchair, glucometer and testing strips, blood pressure cuff, pulse ox, shower chair, access to 's walk-in shower. HHC: none SNF/Rehab: none Community Resources: none Patient goals: Patient wishes to discharge home and denies need for SNF or HHC at this time. Patient states he has no further needs or concerns. Disposition Plan: admission to acute; RN CM/SW to follow for discharge planning needs that may arise. ASAEL Arriaga, SANDIE
[2024-07-24 18:51] LABS: Bedside Glucose 238 mg/dL (74-106)
== END 2024-07-24 19:10 | disposition home or self-care (01) ==
PROVIDERS: Internal Medicine; Physician Assistant; Emergency Provider Emergency Medicine; Visit Provider Emergency Medicine
DX: E11.649 Type 2 diabetes mellitus with hypoglycemia without coma (principal); E11.22 Type 2 diabetes mellitus with diabetic chronic kidney disease; Z87.891 Personal history of nicotine dependence; I25.10 Atherosclerotic heart disease of native coronary artery without angina pectoris; Z79.85 Long-term (current) use of injectable non-insulin antidiabetic drugs; N18.9 Chronic kidney disease, unspecified; E78.5 Hyperlipidemia, unspecified; I12.9 Hypertensive chronic kidney disease with stage 1 through stage 4 chronic kidney disease, or unspecified chronic kidney disease; Z79.899 Other long term (current) drug therapy; Z79.84 Long term (current) use of oral hypoglycemic drugs; T68.XXXA Hypothermia, initial encounter; W19.XXXA Unspecified fall, initial encounter
CPT/HCPCS: 71045; 80048; 81001; 82533; 82550; 82962; 84443; 84484; 85025; 93005; 96374; 99285; A4216; J2405

== ENCOUNTER 2025-02-23 08:13 | Inpatient (IN) | payer MEDICARE, OTHER, SELFPAY ==
[2025-02-23] VITALS (24 sets, daily range): BP systolic 110–180; BP diastolic 53–85; PULSE 62–95; RESP 12–35; TEMP 36.2–37.1; O2SAT 93–100; BMI 25.5; BMI 25.4
--- NOTE | 2025-02-23 08:42 | EKG12_ITS ---
Test Reason : SOB Blood Pressure : */* mmHG Vent. Rate : 83 BPM Atrial Rate : 83 BPM P-R Int : 192 ms QRS Dur : 86 ms QT Int : 408 ms P-R-T Axes : 62 -21 90 degrees QTcB Int : 479 ms Normal sinus rhythm Possible Left atrial enlargement Minimal voltage criteria for LVH, may be normal variant ( R in aVL ) Nonspecific ST and T wave abnormality Abnormal ECG Confirmed by CHRISTIANA JUNE, JEROME ([id number]), newspaper photo editor JASS MCFARLAND ([id number]) on 02/24/2025 9:35:25 AM Referred By: ZACKERY Confirmed By: JEROME VILLEDA MD
--- NOTE | 2025-02-23 08:43 | ED.VIS.DYS ---
HPI History of Present Illness Chief Complaint: Shortness of Breath Informant: patient Onset/Context/Timing Onset: Today and Yesterday Context: gradual Quality: Positive for Dyspnea on exertion Current Severity: Mild Maximum Severity: Mild Associated Symptoms cough Chest Pain: Positive for None Narrative Narrative: 74-year-old male history of diabetes aortic stenosis, recent heart cath, aortic stenosis and he is on aspirin but no other blood thinners. In a recent hospitalization a week ago I believe is intubated on the ventilator for congestive heart failure. He was just discharged this past Saturday and he says he feels short of breath yesterday today primarily with exertion. No chest pain. No fever. He had a cough but said that is resolving. PE Risk Factors: Positive for Recent immobilization; Negative for Cancer, OCP + Smoking + > 35, Prior DVT or PE, Recent surgery or Recent travel Prior similar symptoms: Yes Recent Illness/Hospitalization: Yes [facility] Medical History Abnormal stress test Essential hypertension Claudication of lower extremity Non-rheumatic aortic stenosis Atherosclerosis of coronary artery of [place] heart without angina pectoris Hyperlipidemia Type 2 diabetes mellitus without complications DDD (degenerative disc disease), lumbar Spinal stenosis of lumbar region without neurogenic claudication Spondylosis of lumbosacral region without myelopathy or radiculopathy Spondylosis without myelopathy or radiculopathy, lumbar region Other spondylosis, lumbar region Other intervertebral disc displacement, lumbosacral region Other intervertebral disc degeneration, lumbar region Home Medications ?Medication ?Instructions ?Recorded ?Last Taken ?Type atorvastatin 40 mg tablet 40 mg PO QHS #30 tabs 03/28/20 Unknown Rx aspirin 81 mg tablet,delayed 81 mg PO DAILY 06/14/21 Unknown History release (Adult Aspirin Regimen) ezetimibe 10 mg tablet (Zetia) 10 mg PO DAILY 10/09/21 Unknown History insulin glargine 100 unit/mL 15 unit subcut DAILY 10/09/21 Unknown History subcutaneous solution (Lantus U-100 Insulin) isosorbide mononitrate 30 mg 30 mg PO DAILY #30 tabs 01/05/22 Unknown Rx tablet,extended release 24 hr minoxidil 2.5 mg tablet 5 mg PO DAILY 04/30/22 Unknown History empagliflozin 25 mg tablet 12.5 mg PO DAILY 11/29/22 Unknown History (Jardiance) carvedilol 25 mg tablet 25 mg PO BID 07/19/23 Unknown History chlorthalidone 25 mg tablet 25 mg PO DAILY 07/19/23 Unknown History Allergy/AdvReac Type Severity Reaction Status Date / Time lisinopril AdvReac Mild cough Verified 02/23/25 08:16 Family History Sister Heart disease Daughter Heart disease Surgical History S/P lumbar laminectomy H/O coronary artery bypass surgery (08/06/16) Social History Smoking Status: Former smoker how long ago did patient quit smokin alcohol intake: current alcohol intake frequency: holidays/special occasions only details: <1x/month substance use type: does not use caffeine: Yes Type: coffee Number of servings: 5 ROS ROS ED ROS Narrative Shortness of breath. Constitutional Constitutional ED: Denies chills or fever(s) Eyes Eyes: Denies blurry vision ENT ENT ED: Denies ear pain Cardiovascular Cardiovascular: Denies chest pain Respiratory/Chest Respiratory/Chest: Reports cough Gastrointestinal Gastrointestinal: Denies abdominal pain Genitourinary Genitourinary ED: Denies dysuria or hematuria Musculoskeletal Musculoskeletal: Denies arthralgias Integumentary Denies abscess Neurologic Neurologic: Denies headache(s) Psychiatric Psychiatric: Denies anxiety Endocrine Endocrinology: Denies cold intolerance Hematologic/Lymphatic Hematologic/Lymphatic: Denies easy bleeding, easy bruising or lymphadenopathy Allergic/Immunologic Allergic/Immunologic ED: Denies mouth swelling, tongue swelling or urticaria EXAM Physical Exam Narrative Exam Narrative: Well-appearing 74-year-old male sitting upright in bed. Vital signs stable afebrile 94% pulse ox on room air. Currently is on oxygen. No distress. at bedside. H EENT exam pupils round react light. Moist pink membranes. Neck nontender no JVD. No lymphadenopathy. Lungs coarse breath sounds bilaterally. No rales or rhonchi. Equal symmetrical. Heart regular rhythm rate about 90 5/6 systolic ejection murmur history of aortic stenosis. Chest wall ribs nontender. Abdomen soft nontender. Back nontender. Moving all 4 extremities. Normal strength. Nontender no edema. Calves are nontender without cords. Neurologically is awake alert. Answering questions following commands. No focal motor deficits. Const Vital Signs: 02/23/25 08:14 02/23/25 08:42 02/23/25 08:44 Temperature 98.3 F 98.3 F Temperature Source Oral Oral Pulse Rate 88 81 Respiratory Rate 17 28 H Respiratory Effort Respiratory Depth Respiratory Pattern Blood Pressure 174/84 H 180/82 H Blood Pressure Mean 114 114 Pulse Ox 94 95 93 Oxygen Delivery Method Room Air Room Air Nasal Cannula Oxygen Flow Rate (L/min) 2 Fraction of Inspired Oxygen (FIO2) 02/23/25 08:46 02/23/25 09:33 Temperature Temperature Source Pulse Rate 94 Respiratory Rate 35 H Respiratory Effort Short of Breath Labored Accessory Muscle Use Respiratory Depth Deep Respiratory Pattern Tachypnea Normal Blood Pressure Blood Pressure Mean Pulse Ox 94 Oxygen Delivery Method Nasal Cannula Oxygen Flow Rate (L/min) 2 Fraction of Inspired Oxygen (FIO2) 80 Positive well nourished and well developed; Negative for obese, cachectic, contractures or unkempt General Appearance ED: well developed and NAD; Negative for unkempt, cachectic, contractures or pallor Nutritional Appearance: Negative for cachectic or obese HEENT Reports moist mucous membranes atraumatic; Negative for trauma or tenderness Eyes PERRL and EOMs intact bilaterally General Eye ED: Negative for pale conjunctiva or scleral icterus Neck no lymphadenopathy, supple, no meningeal signs and no JVD Resp normal respiratory effort and No clear to auscultation bilaterally Resp Narrative: Coarse breath sounds bilaterally. Auscultation: Negative for rales, rhonchi or wheezes Cardio regular rate, regular rhythm, S1 normal heart sound, S2 normal heart sound and no murmurs GI non-tender, non-distended and no masses Auscultation: normoactive bowel sounds Palpation: soft; Negative for tender, guarding or rebound tenderness present Back/Spine no CVA tenderness and normal to inspection General Back: Negative for CVA tenderness Extremity normal to inspection General Extremety ED: Negative for edema, tenderness or other findings General Extremity: Negative for edema or other findings Neuro oriented x3 and CN's II-XII intact bilaterally Sensorium / Orientation: alert, oriented to person, oriented to place and oriented to time; Negative for orientation impaired, confused, lethargic or stuporous Speech: speech normal Motor Exam: strength 5/5 throughout Psych mental status grossly normal Appearance: Negative for unkempt Attitude: No agitated Mood & Affect: Negative for depressed Thought Process: normal thought process Skin no wounds and skin turgor normal General Skin Exam: Negative for jaundice or pallor Lesions: no lesions Rashes: no rashes Trauma: Negative for abrasion or laceration MDM MDM MDM Narrative Medical decision making narrative: 74-year-old male shortness of breath well-established cardiac history with history of aortic stenosis. Differential includes CHF, pneumonia, pleural effusion, MD, etc. Clinically does not sound like a pulmonary emboli. Chest x-ray and labs will be obtained. Patient's O2 sat dropped to about 75 while on 2 evaluations of his placed on BiPAP currently is much more comfortable on the BiPAP. Will be admitted for CHF. He was given IV Lasix 40 mg. History & Record Review Discussion w/independent historian: Patient and Family Additional record(s) reviewed:: Prior outpatient record, Prior ED visit and Prior labs Lab Data Attestation: I reviewed the patient's lab results. Lab results narrative: CBC shows a white count of 10. H&H of 10.8 and 32. Platelets 274. Electrolytes show a gap of 15. BUN and creatinine of 67 and 3.2 send chronic renal insufficiency. Glucose 212. BNP is 10,594. Initial troponin is 142. Labs: Laboratory Results - last 24 hr 02/23/25 08:45 WBC 10.0 RBC 3.62 L Hgb 10.8 L Hct 32.7 L MCV 90.3 MCH 29.8 MCHC 33.0 RDW Std Deviation 41.6 RDW Coeff of Samir 12.5 Plt Count 274 MPV 9.6 Immature Gran % (Auto) 0.800 Neut % (Auto) 67.6 Lymph % (Auto) 14.9 L [place] % (Auto) 7.7 Eos % (Auto) 8.2 H Baso % (Auto) 0.8 Absolute Neuts (auto) 6.8 Absolute Lymphs (auto) 1.49 Nucleated RBC % 0 Sodium 139 Potassium 4.9 Chloride 104 Carbon Dioxide 20.2 L Anion Gap 15 BUN 67 H Creatinine 3.20 H Estim Creat Clear Calc 19.95 L Est GFR (MDRD) Non-Af 19 L BUN/Creatinine Ratio 21.0 H Glucose 212 H Calcium 8.9 Troponin T High Sens 142 H* [place] [address] H Radiography Chest X-Ray - ED: 2 View, Read by ED Physician, Read by Radiologist, Heart, Mediastinum, Bony Structures, Chronic Changes and CHF Diagnostic Testing: Clinical Impression(s) from Imaging Studies Chest X-Ray 02/23/25 08:46 IMPRESSION: Central vascularity appears increased. There are interstitial infiltrates in the perihilar region on the right and left. Reading Location: [facility] She was history, 2 views, AP and lateral, interpreted by by myself the radiologist shows a prior CABG with sternal wires. Normal cardiac silhouette. Bilateral pulmonary edema consistent with CHF. Rhythm Strip Rhythm Strip: Sinus Rhythm Rate: 83 Ectopy: None EKG Initial EKG: Attestation: I personally reviewed and interpreted this EKG as follows: Interpretation: Sinus Rhythm and No Acute Injury Pattern Comments: Normal sinus rhythm rate 83 no acute signs of MD or ischemia. Critical Care Time Critical Care Time: Yes Critical care time (excluding procedures): 30-74 minutes, Including time spent:, Discussing w/Patient &/or Family/Ship Design Teacher, Discussing w/Consultants, Arranging Admission or Transfer, Performing Direct Patient Care at Bedside and - (35 minutes) Discharge Plan Triage Chief Complaint: Shortness of Breath ED Provider: Ayaz Hendrickson Dx/Rx/DC Orders Clinical Impression: Acute dyspnea, Chronic kidney disease, Hypoxia, CHF (congestive heart failure), Anemia, History of aortic stenosis, History of diabetes mellitus Prescriptions: No Action insulin glargine [Lantus U-100 Insulin] 100 unit/mL solution 15 unit SC DAILY atorvastatin 40 mg tablet 40 mg PO QHS Qty: 30 11RF ezetimibe [Zetia] 10 mg tablet 10 mg PO DAILY minoxidil 2.5 mg tablet 5 mg PO DAILY carvedilol 25 mg tablet 25 mg PO BID Rx Instructions: must administer with a meal/food Jardiance 25 mg tablet 12.5 mg PO DAILY aspirin [Adult Aspirin Regimen] 81 mg tablet,delayed release (DR/EC) 81 mg PO DAILY isosorbide mononitrate 30 mg tablet extended release 24 hr 30 mg PO DAILY Qty: 30 12RF chlorthalidone 25 mg tablet 25 mg PO DAILY [facility] [Primary Care Provider] - Print Language: Yakut
--- NOTE | 2025-02-23 08:46 | RAD_ITS ---
PROCEDURE: CHEST PA AND LATERAL 02/23/2025 REASON FOR EXAM: DYSPNEA TECHNIQUE: CHEST PA AND LATERAL COMPARISON: July 24, 2024 FINDINGS: Sternotomy wires are noted. Heart size is within normal limits. Central vascularity appears increased. There are interstitial infiltrates in the perihilar region on the right and left. There is no pneumothorax or effusion. There is no acute bony abnormality. Aortic calcifications are noted. RAD/Chest PA and Lateral IMPRESSION: Central vascularity appears increased. There are interstitial infiltrates in the perihilar region on the right and lef t. Reading Location: [facility]
[2025-02-23 09:00] LABS: Hematocrit 32.7 % (40-54); Hemoglobin 10.8 g/dL (13.0-16.5); Immature Granulocytes Count 0.080 X10^3/uL (0.0-0.0); Mean Corp Hgb Conc 33.0 g/dL (32-36); Mean Corpuscular Volume 90.3 fL (80-94); Mean Platelet Vol. 9.6 fl (6.2-12.0); NRBC Flagged by Analyzer 0 % (0-5); Platelet Count 274 K/mm3 (150-450); RBC Distribution Width CV 12.5 % (11.6-14.6); RBC Distribution Width SD 41.6 fl (35.1-43.9); Red Blood Count 3.62 M/mm3 (4.6-6.2); White Blood Count 10.0 K/mm3 (4.4-11.0)
[2025-02-23 09:30] LABS: Troponin T High Sensitivity 142 ng/L (<=22)
[2025-02-23 10:11] LABS: Anion Gap 15 (5-15); BUN 67 mg/dL (4-19); BUN/Creat Ratio 21.0 RATIO (10-20); Calcium,Total 8.9 mg/dL (7.6-11.0); Carbon Dioxide 20.2 mmol/L (21.0-32.0); Chloride 104 mmol/L (98-108); Estimated Creatinine Clearance 19.95 ml/min (50-250); Glucose 212 mg/dL (70-99); Potassium 4.9 mmol/L (3.3-5.1); Pro- Brain NATRIURETIC PEPTIDE 10594 pg/mL (<=1800)
--- NOTE | 2025-02-23 10:22 | PCM.HP.STD ---
HPI - General General Date of Admission: 02/23/25 Date of Service: 02/23/25 Chief Complaint: shortness of breath HPI Narrative SRIRAM MADDOX, is a 74 M with a PMH as outlined who presents via the ED on 02/23/2025 with a complaint of shortness of breath. He has a history of severe aortic stenosis, and was recently seen about a week ago and managed for acute hypoxic respiratory failure due to acute heart failure and severe aortic stenosis. He was intubated during that admission and had a cardiac cath which showed clean coronaries. He was discharged home, to follow with cardiology and to be set up for TAVR. However he said he started feeling short of breath again overnight. He denied any chest pain or palpitations, dizziness, nausea vomiting or any other symptoms. Of note to the most recent admission records and a different visit number and efforts have been made to currently merge those visits. Vitals in the ED were blood pressure of 139/74, pulse rate of 73, respiratory rate of 19 and temperature of 97.1 Fahrenheit. He was saturating at 100% on BIPAP. BiPAP CBC showed hemoglobin of 10.8 with WBC of 10 and platelets of 274. Chemistry showed sodium of 139 with potassium of 4.9 and creatinine of 3.2. Initial troponin was 142. [place]NP was [address]. chest x-ray showed central vascularity which appeared increase in interstitial infiltrates in the perihilar region on the right and left. He is being admitted to be mnaged for acute hypoxic respiratory failure due to acute exacerbation of HFpEF in the setting of severe aortic stenosis. [facility] Medical History Abnormal stress test Essential hypertension Claudication of lower extremity Non-rheumatic aortic stenosis Atherosclerosis of coronary artery of [place] heart without angina pectoris Hyperlipidemia Type 2 diabetes mellitus without complications DDD (degenerative disc disease), lumbar Spinal stenosis of lumbar region without neurogenic claudication Spondylosis of lumbosacral region without myelopathy or radiculopathy Spondylosis without myelopathy or radiculopathy, lumbar region Other spondylosis, lumbar region Other intervertebral disc displacement, lumbosacral region Other intervertebral disc degeneration, lumbar region Home Medications ?Medication ?Instructions ?Recorded ?Last Taken ?Type atorvastatin 40 mg tablet 40 mg PO QHS #30 tabs 03/28/20 Unknown Rx aspirin 81 mg tablet,delayed 81 mg PO DAILY 06/14/21 Unknown History release (Adult Aspirin Regimen) ezetimibe 10 mg tablet (Zetia) 10 mg PO DAILY 10/09/21 Unknown History insulin glargine 100 unit/mL 15 unit subcut DAILY 10/09/21 Unknown History subcutaneous solution (Lantus U-100 Insulin) isosorbide mononitrate 30 mg 30 mg PO DAILY #30 tabs 01/05/22 Unknown Rx tablet,extended release 24 hr minoxidil 2.5 mg tablet 5 mg PO DAILY 04/30/22 Unknown History empagliflozin 25 mg tablet 12.5 mg PO DAILY 11/29/22 Unknown History (Jardiance) carvedilol 25 mg tablet 25 mg PO BID 07/19/23 Unknown History chlorthalidone 25 mg tablet 25 mg PO DAILY 07/19/23 Unknown History Allergy/AdvReac Type Severity Reaction Status Date / Time lisinopril AdvReac Mild cough Verified 02/23/25 08:16 Family History Sister Heart disease Daughter Heart disease Surgical History S/P lumbar laminectomy H/O coronary artery bypass surgery (08/06/16) Social History Smoking Status: Former smoker how long ago did patient quit smokin alcohol intake: current alcohol intake frequency: holidays/special occasions only details: <1x/month substance use type: does not use caffeine: Yes Type: coffee Number of servings: 5 ROS Constitutional Constitutional: Reports malaise and weakness; Denies anorexia, fatigue or fever(s) Eyes Eyes: Denies change in vision ENT HEENT: Denies dysphagia, headache(s) or sore throat Cardiovascular Cardiovascular: Reports dyspnea on exertion, edema, orthopnea and paroxysmal nocturnal dyspnea; Denies chest pain, palpitations, rapid heart rate or syncope Respiratory/Chest Respiratory/Chest: Reports dyspnea, shortness of breath at rest and shortness of breath with exertion; Denies cough, productive cough or wheezing Gastrointestinal Gastrointestinal: Denies abdominal pain, constipation, diarrhea, nausea or vomiting Genitourinary Genitourinary: Denies dysuria Neurologic Neurologic: Denies confusion, focal weakness, headache(s), numbness, seizures or syncope Psychiatric Psychiatric: Denies anxiety Vital Signs Vital Signs Vital Signs: 02/23/25 08:14 02/23/25 08:42 02/23/25 08:44 Temperature 98.3 F 98.3 F Temperature Source Oral Oral Pulse Rate 88 81 Respiratory Rate 17 28 H Respiratory Effort Respiratory Depth Respiratory Pattern Blood Pressure 174/84 H 180/82 H Blood Pressure Mean 114 114 Pulse Ox 94 95 93 Oxygen Delivery Method Room Air Room Air Nasal Cannula Oxygen Flow Rate (L/min) 2 Fraction of Inspired Oxygen (FIO2) 02/23/25 08:46 02/23/25 09:33 02/23/25 10:18 Temperature 97.1 F L Temperature Source Temporal Pulse Rate 94 73 Respiratory Rate 35 H 19 H Respiratory Effort Short of Breath Labored Accessory Muscle Use Respiratory Depth Deep Respiratory Pattern Tachypnea Normal Blood Pressure 139/74 H Blood Pressure Mean 95 Pulse Ox 94 100 Oxygen Delivery Method Nasal Cannula Bi-pap Oxygen Flow Rate (L/min) 2 Fraction of Inspired Oxygen (FIO2) 80 02/23/25 10:19 Temperature 97.1 F L Temperature Source Pulse Rate 73 Respiratory Rate 19 H Respiratory Effort Respiratory Depth Respiratory Pattern Blood Pressure 139/74 H Blood Pressure Mean 95 Pulse Ox 100 Oxygen Delivery Method Oxygen Flow Rate (L/min) Fraction of Inspired Oxygen (FIO2) Weight Weight: 173 lb Body Mass Index (BMI) 25.5 Physical Exam Const alert, oriented x3 and no apparent distress General Appearance: cooperative HEENT normocephalic, head/scalp atraumatic, moist oral mucous membranes and oropharynx normal Mouth: oral and palatal mucosa normal Eyes EOMs intact bilaterally and conjunctivae normal Neck supple and no JVD Resp Resp Narrative: on BIPAP. diminished breath sounds bibasally, no wheezes or crackles. Cardio regular rate, regular rhythm, S1 normal heart sound, S2 normal heart sound and no murmurs GI normal to inspection, nondistended, normoactive bowel sounds, soft to palpation, non-tender and non-distended Extremity normal to inspection, full ROM and no clubbing, cyanosis or edema Neuro oriented x3, CN's II-XII intact bilaterally and moves all extremities Sensorium / Orientation: awake and alert Motor Exam: strength 5/5 throughout Psych affect normal Results Lab / Micro Data 02/23/25 08:45 02/23/25 08:45 Labs: Laboratory Results - last 24 hr 02/23/25 08:45: WBC 10.0, RBC 3.62 L, Hgb 10.8 L, Hct 32.7 L, MCV 90.3, MCH 29.8, MCHC 33.0, RDW Std Deviation 41.6, RDW Coeff of Samir 12.5, Plt Count 274, MPV 9.6, Immature Gran % (Auto) 0.800, Neut % (Auto) 67.6, Lymph % (Auto) 14.9 L, [place] % (Auto) 7.7, Eos % (Auto) 8.2 H, Baso % (Auto) 0.8, Absolute Neuts (auto) 6.8, Absolute Lymphs (auto) 1.49, Nucleated RBC % 0, Sodium 139, Potassium 4.9, Chloride 104, Carbon Dioxide 20.2 L, Anion Gap 15, BUN 67 H, Creatinine 3.20 H, Estim Creat Clear Calc 19.95 L, Est GFR (MDRD) Non-Af 19 L, BUN/Creatinine Ratio 21.0 H, Glucose 212 H, Calcium 8.9, Troponin T High Sens 142 H*, [place] [address] H Rhythm Strip Rhythm Strip: Sinus Rhythm Rate: 83 Ectopy: None Imaging Radiology Impression Chest X-Ray 02/23/25 08:46 IMPRESSION: Central vascularity appears increased. There are interstitial infiltrates in the perihilar region on the right and left. Reading Location: [facility] Assessment & Plan Assessment/Plan (1) History of aortic stenosis: (2) Acute respiratory failure with hypoxia: (3) Acute heart failure: PLAN: Plan #Acute hypoxic respiratory failure due to acute on chronic HFrEF in the setting of severe aortic stenosis patient was recently admitted ~ 1 week ago for acute hypoxic respiratory failure due to acute on chronic HFrEF as well as nonstemi and severe aortic stenosis he was intubated in the previous admission and on extubation, he had cardiac cath which showed severe aortic stenosis. Records from that admission are under a different visit number and efforts are being made to merge that with this visit. he was discharged home to follow up with cardiology on outpatient basis He came in today with a complaint of shortness of breath and cough which is productive of clear sputum. He required BIPAP on arrival in the ED. Initial troponin was 142 and essentially remaiined flat, only getting to 149. pro BNP was [address]. admit to the ICU as he is on BIPAP. diurese with IV lasix 40mg bid titrate oxygen to maintain sats >90%. Hold off on 2D echo as he recently had an echo cardiology was consulted, but I discussed with the lathe machine operator solution consultant Dr Mary; he recommended continuing diuresis. He will speak to family about need for diuresis and then follow up with cardiology on outpatient basis for TAVR. Will therefore cancel consult hold off on critical care consult as patient weaned off BIPAP on admission to ICU to 2L of oxygen monitor intake and output. Fluid restriction to 1500cc daily. #JUAN on CKD III Cr is 3.2. Baseline Cr is ~ 2.7. being diuresed with IV lasix which may also worsen Cr nephrology consulted. Results from most recent admission is not seen in the EMR as that visit is still being merged nephrology consulted. #CAD; on aspirin, statin and imdur. #Type 2 diabetes mellitus on lantus 15 units daily. ISS. Accuc hecks ACHS. Hold jardiance. #Hypertension: on carvedilol, chlorthalidone and minoxidil DVT prophylaxis: lovenox, renally dosed Code status: full code Patient counseled extensively about different types of CODE STATUS including full code, DNR CCA and DNR CCA. Patient elects to be full code. Total [id number] time 16 minutes. # Charges/Coding Visit Charges Inpatient E&M: 64153 Init Hosp L3 Procedures Hospitalists Procedures: 07504 Advncd Care Plan 30 Min
[2025-02-23 11:42] LABS: Troponin T High Sens 2 HR 134 ng/L (<=22)
--- NOTE | 2025-02-23 11:42 | ED.RN ---
ICu nurse notified of patients troponin 134
--- NOTE | 2025-02-23 12:33 | CASEMGMT ---
Social Work SW verified that there has been no changes since last face to face assessment. Patients discharge plans are uncertain at this time. Joanie Lopez [employer] CALL CENTER SUPPORT REPRESENTATIVE
[2025-02-23 13:58] LABS: Troponin T High Sens 4 HR 149 ng/L (<=22)
--- NOTE | 2025-02-23 23:35 | CPS ---
Pt refused to wear BIPAP tonight.
[2025-02-24] VITALS (19 sets, daily range): BP systolic 99–155; BP diastolic 49–88; PULSE 62–84; RESP 12–21; TEMP 36.4–37; O2SAT 93–99
[2025-02-24 04:54] LABS: Hematocrit 28.9 % (40-54); Hemoglobin 9.6 g/dL (13.0-16.5); Immature Granulocytes Count 0.040 X10^3/uL (0.0-0.0); Mean Corp Hgb Conc 33.2 g/dL (32-36); Mean Corpuscular Volume 89.5 fL (80-94); Mean Platelet Vol. 9.7 fl (6.2-12.0); NRBC Flagged by Analyzer 0 % (0-5); Platelet Count 254 K/mm3 (150-450); RBC Distribution Width CV 12.3 % (11.6-14.6); RBC Distribution Width SD 40.3 fl (35.1-43.9); Red Blood Count 3.23 M/mm3 (4.6-6.2); White Blood Count 8.0 K/mm3 (4.4-11.0)
[2025-02-24 05:10] LABS: Anion Gap 14 (5-15); BUN 67 mg/dL (4-19); BUN/Creat Ratio 19.9 RATIO (10-20); Calcium,Total 8.8 mg/dL (7.6-11.0); Carbon Dioxide 21.5 mmol/L (21.0-32.0); Chloride 102 mmol/L (98-108); Estimated Creatinine Clearance 18.94 ml/min (50-250); Glucose 217 mg/dL (70-99); Potassium 4.2 mmol/L (3.3-5.1)
[2025-02-24] MEDS: Aspirin E.C. 81 MG Tablet PO (09:38)
[2025-02-24] MEDS: Insulin Glargine-YFGN 100 UNIT/ML Pen 15 UNIT SC (10:55)
--- NOTE | 2025-02-24 11:00 | PN_ITS ---
Subjective Subjective Patient seen and examined. He is off oxygen and feels much better. He has no complaints this morning. Review of systems is otherwise negative. Objective Data Objective Data Vital Signs: Vital Signs Temp Pulse Resp BP Pulse Ox O2 Del Method O2 Flow Rate 98.5 F 84 19 H 137/88 H 97 Room Air 2 02/24/25 10:00 02/24/25 10:00 02/24/25 10:00 02/24/25 10:00 02/24/25 10:00 02/24/25 10:00 02/23/25 15:00 FiO2 60 02/23/25 11:45 Oxygen Flow Rate (L/min) 2 Oxygen Delivery Method Room Air Weight: 172 lb 0.004 oz Body Mass Index (BMI) 25.4 Intake & Output: Intake and Output for Last 24 Hours 02/22/25 02/23/25 02/24/25 23:59 23:59 23:59 Output Total 2625 / 2625 900 / 900 Balance -2625 / -2625 -900 / -900 Lab / Micro Data 02/24/25 04:43 02/24/25 04:43 Labs: Laboratory Results - last 24 hr 02/23/25 10:58: Troponin T Hi Sens 2 Hr 134 H* 02/23/25 12:55: Troponin T Hi Sens 4Hr 149 H* 02/24/25 01:34: POC Glucose 128 H 02/24/25 04:43: WBC 8.0, RBC 3.23 L, Hgb 9.6 L, Hct 28.9 L, MCV 89.5, MCH 29.7, MCHC 33.2, RDW Std Deviation 40.3, RDW Coeff of Samir 12.3, Plt Count 254, MPV 9.7, Immature Gran % (Auto) 0.500, Neut % (Auto) 62.1, Lymph % (Auto) 20.7, [place] % (Auto) 9.0, Eos % (Auto) 6.8 H, Baso % (Auto) 0.9, Absolute Neuts (auto) 4.9, Absolute Lymphs (auto) 1.65, Nucleated RBC % 0, Sodium 138, Potassium 4.2, Chloride 102, Carbon Dioxide 21.5, Anion Gap 14, BUN 67 H, Creatinine 3.37 H, E stim Creat Clear Calc 18.94 L, Est GFR (MDRD) Non-Af 18 L, BUN/Creatinine Ratio 19.9, Glucose 217 H, Calcium 8.8 Rhythm Strip Rhythm Strip: Sinus Rhythm Rate: 83 Ectopy: None Physical Exam Const alert, oriented x3 and no apparent distress General Appearance: cooperative HEENT normocephalic, head/scalp atraumatic, moist oral mucous membranes and oropharynx normal Eyes EOMs intact bilaterally and conjunctivae normal Neck supple and no JVD Lymph Lymphatic: no lymphedema noted Resp Resp Narrative: mildly diminished breath sounds bibasally, no wheezes or crackles. On room air. Cardio regular rate, regular rhythm, S1 normal heart sound, S2 normal heart sound and no murmurs GI normal to inspection, nondistended, normoactive bowel sounds, soft to palpation, non-tender and non-distended Extremity normal to inspection, full ROM and no clubbing, cyanosis or edema General Extremity: no tenderness to palpation of joints or extremities Skin General Skin Exam: no breakdown Neuro oriented x3, CN's II-XII intact bilaterally and moves all extremities Sensorium / Orientation: awake and alert Motor Exam: strength 5/5 throughout Psych thought process normal, cooperative and affect normal Appearance: appropriate Assessment & Plan Assessment/Plan (1) History of aortic stenosis: (2) Acute respiratory failure with hypoxia: (3) Acute heart failure: PLAN: Plan #Acute hypoxic respiratory failure due to acute on chronic HFrEF in the setting of severe aortic stenosis * patient was recently admitted ~ 1 week ago for acute hypoxic respiratory failure due to acute on chronic HFrEF as well as nonstemi and severe aortic stenosis * he was intubated in the previous admission and on extubation, he had cardiac cath which showed severe aortic stenosis. Records from that admission are under a different visit number and efforts are being made to merge that with this visit. * he was discharged home to follow up with cardiology on outpatient basis * He came in today with a complaint of shortness of breath and cough which is productive of clear sputum. He required BIPAP on arrival in the ED. * Initial troponin was 142 and essentially remaiined flat, only getting to 149. * pro BNP was 53617. * now on room air and feels much better. * Being diuresed with IV lasix 40mg bid. * dev technical mgr Dr Mary did see patient yesterday and today. He recommended patient being sent home on PO lasix 60mg bid when medically stable. * We are still waiting for his most recent visit to be merged with this visit in order to access his records from most recent visit. * titrate oxygen to maintain sats >90% * breathing treatment with bronchodilators. * * #JUAN on CKD III * Cr is slightly up to 3.37. Baseline Cr is ~ 2.7. * being diuresed with IV lasix which may also worsen Cr * nephrology consulted. Results from most recent admission is not seen in the EMR as that visit is still being merged * await records from most recent admission as it is still being merged with this visit. * #CAD; on aspirin, statin and imdur. #Type 2 diabetes mellitus * on lantus 15 units daily. ISS. Accuchecks ACHS. Hold Jardiance * #Hypertension: on carvedilol, chlorthalidone and minoxidil. Per discussion with cardiology, to review most recent med list when the records are merged to decide whether to continue chlorthalidone and minoxidil. DVT prophylaxis: lovenox, renally dosed Code status: full code * Disposition: Transfer to PCU Charges/Coding Visit Charges Inpatient E&M: 11572 Subs Hosp L2
--- NOTE | 2025-02-24 11:33 | CASEMGMT ---
Addendum entered by Sunday Vasquez 02/24/25 11:50: Medical records has been notified and plans to merge accounts. Original Note: TRACEE MULLIGAN Readmission Chart Review Please note that the patient's index admission states a different medical record number, [id number]. Index: . Dx: RF, HF Exacerbation Current: 02/23/25. Dx: Acute Hypoxic RF From the index admission, the patient was discharged home with his significant other. At that time, the patient declined any home healthcare or outpatient therapy needs. The patient was scheduled to follow up with his PCP, cardiology, and nephrology. It is noted that the patient was to follow up with cardiology for a potential TAVR. This TRACEE MULLIGAN completed the DC follow-up phone call on 02/18, where the patient stated that he was having 6 out of 10 chest pain with lightheadedness and dizziness. The patient was advised to come into the emergency department for further evaluation as soon as possible. equine manager to the patient room at this time. Patient is sitting up in the chair and is calm. Patient?s at bedside. The patient states that his chest pain subsided, and he did not come into the emergency department until yesterday due to SOB. The patient states that there was not enough time in between admissions for him to follow up with the aforementioned specialists. The patient states that he was able to take all of his medications as ordered. Moving forward, the patient plans to return home at the time of discharge. Patient?s current 6-Click score is 20. PT is ordered and pending. The patient reports that he has all of the DME at home that he needs. The patient states that he feels safe returning home with his at the time of discharge and denies any additional needs or resources, including home health, outpatient therapy, palliative, or CCN. The patient reports that he plans to follow up with his doctors as an OP and denied any further questions or concerns at this time. Efren VASQUEZ RN, CM
--- NOTE | 2025-02-24 14:04 | CHAPLAIN ---
Type of Pastoral Visit _x__ Initial Visit ___ Follow-up Visit ___ On-call Visit ___ General Patient Visit ___ Spiritual Assessment ___ Family Conference ___ Bereavement ___ Rapid Response ___ Code Blue ___ Other (describe below) Pastoral Care Referral From _x__ Patient _x__ Family ___ Nurse ___ Physician ___ Robotic Machine Tender Production ___ Audit Senior Associate ___ Other (describe below) Sacrament/Intervention _x__ Active listening ___ Anointing ___ Yarsani ___ Bereavement ___ Communion _x__ Patito exploration ___ _x__ Life review _x__ Prayer ___ Reconciliation ___ Sacrament of Sick _x__ Supportive presence ___ Wedding ___ Other (describe below) Pastoral Comments patient is in the midst of a breathing treatment but at the bedside answers many questions and gives information on health history of pt; pt is awaiting a heart valve surgery in March but struggles now with maintaining health; pt was admitted earlier this month and was on a vent at that time; pt admits to lots of thinking and questions on finding peace at ; pt has been a Yarsani all his life but is not active in the patito or restorationist attendance; is very engaged in the conversation and expresses desire for pt to get the surgery and gain health and longer life; pt acknowledges that this illness has caused deeper thinking and pondering of life; both welcome presence and prayer to consider these concerns
--- NOTE | 2025-02-24 18:23 | PCM.CONS.R ---
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 Several fluctuations related to cardiorenal syndrome/fluid overload. Recently had a diagnostic angiogram which was okay. In the process of getting scheduled for TAVR. Presented with shortness of breath, improved with Lasix. Voiding okay. He will ultimately need TAVR surgery for symptomatic benefit. HPI Consult Data Date of Consult: 02/24/25 HPI Narrative Reason for Consultation: JUAN HPI Narrative: SRIRAM MADDOX, is a 74 M who presents To the hospital with shortness of breath. Nephrology on consultation in view of CKD/JUAN. He is actually known to me from recent visit. Has CKD stage IIIb/IV. Has severe aortic stenosis. Was admitted recently with similar complaints. Was supposed to follow-up with cardiology at [facility] for consideration of TAVR. Has a visit coming up with them in about 2 weeks. Presented with shortness of breath. Recent coronary angiogram was okay. Feels better today. [facility] Medical History Abnormal stress test Essential hypertension Claudication of lower extremity Non-rheumatic aortic stenosis Atherosclerosis of coronary artery of [place] heart without angina pectoris Hyperlipidemia Type 2 diabetes mellitus without complications DDD (degenerative disc disease), lumbar Spinal stenosis of lumbar region without neurogenic claudication Spondylosis of lumbosacral region without myelopathy or radiculopathy Spondylosis without myelopathy or radiculopathy, lumbar region Other spondylosis, lumbar region Other intervertebral disc displacement, lumbosacral region Other intervertebral disc degeneration, lumbar region Home Medications ?Medication ?Instructions ?Recorded ?Last Taken ?Type atorvastatin 40 mg tablet 40 mg PO QHS #30 tabs 03/28/20 Unknown Rx aspirin 81 mg tablet,delayed 81 mg PO DAILY 06/14/21 Unknown History release (Adult Aspirin Regimen) ezetimibe 10 mg tablet (Zetia) 10 mg PO DAILY 10/09/21 Unknown History insulin glargine 100 unit/mL 15 unit subcut DAILY 10/09/21 Unknown History subcutaneous solution (Lantus U-100 Insulin) isosorbide mononitrate 30 mg 30 mg PO DAILY #30 tabs 01/05/22 Unknown Rx tablet,extended release 24 hr minoxidil 2.5 mg tablet 5 mg PO DAILY 04/30/22 Unknown History empagliflozin 25 mg tablet 12.5 mg PO DAILY 11/29/22 Unknown History (Jardiance) carvedilol 25 mg tablet 25 mg PO BID 07/19/23 Unknown History chlorthalidone 25 mg tablet 25 mg PO DAILY 07/19/23 Unknown History Allergy/AdvReac Type Severity Reaction Status Date / Time lisinopril AdvReac Mild cough Verified 02/23/25 08:16 Family History Sister Heart disease Daughter Heart disease Surgical History S/P lumbar laminectomy H/O coronary artery bypass surgery (08/06/16) Social History Smoking Status: Former smoker how long ago did patient quit smokin alcohol intake: current alcohol intake frequency: holidays/special occasions only details: <1x/month substance use type: does not use caffeine: Yes Type: coffee Number of servings: 5 ROS ROS Narrative negative except above Physical Exam Narrative Alert awake oriented x 3 no obvious distress no pallor no icterus no JVD s1s2 no murmurs lungs clear abdomen soft no organomegaly no edema no cyanosis Lab / Micro Data 02/24/25 04:43 02/24/25 04:43 Labs: Laboratory Results - last 24 hr 02/24/25 01:34: POC Glucose 128 H 02/24/25 04:43: WBC 8.0, RBC 3.23 L, Hgb 9.6 L, Hct 28.9 L, MCV 89.5, MCH 29.7, MCHC 33.2, RDW Std Deviation 40.3, RDW Coeff of Samir 12.3, Plt Count 254, MPV 9.7, Immature Gran % (Auto) 0.500, Neut % (Auto) 62.1, Lymph % (Auto) 20.7, [place] % (Auto) 9.0, Eos % (Auto) 6.8 H, Baso % (Auto) 0.9, Absolute Neuts (auto) 4.9, Absolute Lymphs (auto) 1.65, Nucleated RBC % 0, Sodium 138, Potassium 4.2, Chloride 102, Carbon Dioxide 21.5, Anion Gap 14, BUN 67 H, Creatinine 3.37 H, Estim Creat Clear Calc 18.94 L, Est GFR (MDRD) Non-Af 18 L, BUN/Creatinine Ratio 19.9, Glucose 217 H, Calcium 8.8 02/24/25 10:54: POC Glucose 197 H Rhythm Strip Rhythm Strip: Sinus Rhythm Rate: 83 Ectopy: None
[2025-02-24] MEDS: 0.9% Saline Lock 10 ML Syringe IV (21:37)
[2025-02-25 04:00] VITALS: BP 137/62; PULSE 68; RESP 16; TEMP 36.8; O2SAT 98
[2025-02-25 05:46] LABS: Hematocrit 31.1 % (40-54); Hemoglobin 10.3 g/dL (13.0-16.5); Immature Granulocytes Count 0.040 X10^3/uL (0.0-0.0); Mean Corp Hgb Conc 33.1 g/dL (32-36); Mean Corpuscular Volume 89.4 fL (80-94); Mean Platelet Vol. 9.6 fl (6.2-12.0); NRBC Flagged by Analyzer 0 % (0-5); Platelet Count 302 K/mm3 (150-450); RBC Distribution Width CV 12.2 % (11.6-14.6); RBC Distribution Width SD 39.1 fl (35.1-43.9); Red Blood Count 3.48 M/mm3 (4.6-6.2); White Blood Count 7.8 K/mm3 (4.4-11.0)
[2025-02-25 06:17] LABS: Anion Gap 15 (5-15); BUN 75 mg/dL (4-19); BUN/Creat Ratio 20.7 RATIO (10-20); Calcium,Total 8.9 mg/dL (7.6-11.0); Carbon Dioxide 24.0 mmol/L (21.0-32.0); Chloride 97 mmol/L (98-108); Estimated Creatinine Clearance 17.49 ml/min (50-250); Glucose 301 mg/dL (70-99); Potassium 4.6 mmol/L (3.3-5.1)
[2025-02-25 08:00] VITALS: PULSE 63
[2025-02-25 08:08] VITALS: BP 127/59; PULSE 64; RESP 16; TEMP 36.4; O2SAT 97
[2025-02-25] MEDS: Aspirin E.C. 81 MG Tablet PO (08:15)
[2025-02-25] MEDS: Insulin Glargine-YFGN 100 UNIT/ML Pen 15 UNIT SC (09:41)
[2025-02-25 10:38] VITALS: PULSE 66; RESP 16
[2025-02-25 11:05] VITALS: PULSE 65
--- NOTE | 2025-02-25 14:04 | PCM.PN.REN ---
Subjective Subjective Patient sitting up in bed. at bedside. No overnight events. States feeling better today, breathing is much better. On room air. Objective Data Objective Data Vital Signs: Vital Signs Temp Pulse Resp BP Pulse Ox O2 Del Method O2 Flow Rate 97.6 F L 65 16 127/59 H 97 Room Air 2 02/25/25 08:08 02/25/25 11:05 02/25/25 10:38 02/25/25 08:08 02/25/25 08:08 02/25/25 09:55 02/23/25 15:00 FiO2 60 02/23/25 11:45 Oxygen Flow Rate (L/min) 2 Oxygen Delivery Method Room Air Weight: 78.018 kg Body Mass Index (BMI) 25.4 Intake & Output: Intake and Output for Last 24 Hours 02/23/25 02/24/25 02/25/25 23:59 23:59 23:59 Intake Total 200 / 300 340 / 340 Output Total 2625 / 2625 1300 / 1300 0 / 0 Balance -2625 / -2625 -1100 / -1000 340 / 340 Lab / Micro Data 02/25/25 04:44 02/25/25 04:44 Labs: Laboratory Results - last 24 hr 02/25/25 04:44: WBC 7.8, RBC 3.48 L, Hgb 10.3 L, Hct 31.1 L, MCV 89.4, MCH 29.6, MCHC 33.1, RDW Std Deviation 39.1, RDW Coeff of Samir 12.2, Plt Count 302, MPV 9.6, Immature Gran % (Auto) 0.500, Neut % (Auto) 56.1, Lymph % (Auto) 22.5, [place] % (Auto) 11.8 H, Eos % (Auto) 8.1 H, Baso % (Auto) 1.0, Absolute Neuts (auto) 4.4, Absolute Lymphs (auto) 1.75, Nucleated RBC % 0, Sodium 136, Potassium 4.6, Chloride 97 L, Carbon Dioxide 24.0, Anion Gap 15, BUN 75 H, Creatinine 3.65 H, Estim Creat Clear Calc 17.49 L, Est GFR (MDRD) Non-Af 17 L, BUN/Creatinine Ratio 20.7 H, Glucose 301 H, Calcium 8.9 02/25/25 08:13: POC Glucose 202 H 02/25/25 11:57: POC Glucose 330 H Rhythm Strip Rhythm Strip: Sinus Rhythm Rate: 83 Ectopy: None Physical Exam Narrative Alert awake oriented x 3 no obvious distress no JVD s1s2 no murmurs lungs clear abdomen soft no edema Assessment & Plan Assessment/Plan (1) Chronic kidney disease: PLAN: - 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 Several fluctuations related to cardiorenal syndrome/fluid overload. Recently had a diagnostic angiogram which was okay. In the process of getting scheduled for TAVR. Presented with shortness of breath, improved with Lasix. Now on RA. Voiding okay. He will ultimately need TAVR surgery for symptomatic benefit. Currently on Lasix 40 mg IV twice daily. Home dose lasix 60mg bid. Creatinine 3.2 on admission--> today serum creatinine 3.65. Potassium and bicarb acceptable. Volume status appears near euvolemic. Will hold IV Lasix for the rest of the day, received this morning's dose. Change lasix to daily. Weight 78 kg. At time of hospital discharge will arrange for hospital follow-up in [place] office. Assessment and plan reviewed with Dr. Nesbitt.
--- NOTE | 2025-02-25 14:12 | PCM.DC ---
Discharge Instructions DC O2, CPAP, BIPAP needs Home O2 Discharge instructions: No Dressing / Incision Discharge Activity: Return to Normal Activity Weight Bearing Status: Weight bearing as tolerated Dressing / Incision Call your doctor if you observe: Fever of 101 or Higher, Shortness of breath, Dizziness, Swelling in the ankles and Chest pain Follow Up Care Test Results: Test results from this visit will be discussed in further detail at your follow-up appointment, if applicable. Discharge Plan Admission Admit Date/Time: 02/23/25 10:38 Primary Reason for Your Visit: acute on chronic heart failure, severe aortic stenosis Attending Provider: Lana Menjivar Primary Care Provider: [facility] Consulting Providers: Sunshine Nesbitt Instructions Patient Instructions: Aortic Stenosis, Coping with Heart Failure Discharge Orders/Prescriptions Prescriptions: New furosemide [Lasix] 20 mg tablet 60 mg PO BID 30 Days Qty: 180 2RF potassium chloride [K-Tab] 20 mEq tablet extended release 20 meq PO DAILY Qty: 30 1RF Continued insulin glargine [Lantus U-100 Insulin] 100 unit/mL solution 15 unit SC DAILY atorvastatin 40 mg tablet 40 mg PO QHS Qty: 30 11RF ezetimibe [Zetia] 10 mg tablet 10 mg PO DAILY carvedilol 25 mg tablet 25 mg PO BID Rx Instructions: must administer with a meal/food Jardiance 25 mg tablet 12.5 mg PO DAILY aspirin [Adult Aspirin Regimen] 81 mg tablet,delayed release (DR/EC) 81 mg PO DAILY isosorbide mononitrate 30 mg tablet extended release 24 hr 30 mg PO DAILY Qty: 30 12RF Discontinued minoxidil 2.5 mg tablet 5 mg PO DAILY chlorthalidone 25 mg tablet 25 mg PO DAILY Referrals / Follow Up: Rah Mary MD [Med Staff - Active Staff] - Within 2 Weeks Sunshine Nesbitt MD [Med Staff - Consulting] - Within 2 Weeks [facility] [Primary Care Provider] - Within 1 Week Disposition Disposition (needs filled in before D/C Order can be placed): Home, Self Care
--- NOTE | 2025-02-25 14:13 | PCM.DC.SUM ---
Providers Date of Admission: 02/23/25 Date of Discharge: 02/25/25 Primary Care Physician: [facility] Consultations 02/23/25 11:31 Consult: Nephrology Routine Consulting Provider: Sunshine Nesbitt Reason for Consult: JUAN on CKD EMERGENT Consult: No MD Notified: Yes Date Notified: 02/23/25 Time Notified: 11:35 Method of Notification: Answering Service Reason For Visit: ACUTE HYPOXIC RESPIRATORY FAILURE Diagnosis Discharge Diagnosis (1) Chronic kidney disease: Status: Chronic Code(s): N18.9 - Chronic kidney disease, unspecified Plan #Acute hypoxic respiratory failure due to acute on chronic HFrEF in the setting of severe aortic stenosis patient was recently admitted ~ 1 week ago for acute hypoxic respiratory failure due to acute on chronic HFrEF as well as nonstemi and severe aortic stenosis he was intubated in the previous admission and on extubation, he had cardiac cath which showed severe aortic stenosis. Records from that admission are under a different visit number and efforts are being made to merge that with this visit. he was discharged home to follow up with cardiology on outpatient basis He came in today with a complaint of shortness of breath and cough which is productive of clear sputum. He required BIPAP on arrival in the ED. Initial troponin was 142 and essentially remaiined flat, only getting to 149. pro BNP was [id number]. now on room air and feels much better. Being diuresed with IV lasix 40mg bid. naphtha washing system operator Dr Mary did see patient yesterday and today. He recommended patient being sent home on PO lasix 60mg bid when medically stable. We are still waiting for his most recent visit to be merged with this visit in order to access his records from most recent visit. titrate oxygen to maintain sats >90% breathing treatment with bronchodilators. #JUAN on CKD III Cr is slightly up to 3.37. Baseline Cr is ~ 2.7. being diuresed with IV lasix which may also worsen Cr nephrology consulted. Results from most recent admission is not seen in the EMR as that visit is still being merged await records from most recent admission as it is still being merged with this visit. #CAD; on aspirin, statin and imdur. #Type 2 diabetes mellitus on lantus 15 units daily. ISS. Accuchecks ACHS. Hold Jardiance #Hypertension: on carvedilol, chlorthalidone and minoxidil. Per discussion with cardiology, to review most recent med list when the records are merged to decide whether to continue chlorthalidone and minoxidil. DVT prophylaxis: lovenox, renally dosed Code status: full code Disposition: Transfer to PCU Medications at Discharge Home Medications atorvastatin 40 mg tablet 40 mg PO QHS cholesterol #30 tabs 03/28/20 aspirin 81 mg tablet,delayed release (Adult Aspirin Regimen) 81 mg PO DAILY heart health 06/14/21 ezetimibe 10 mg tablet (Zetia) 10 mg PO DAILY cholesterol 10/09/21 insulin glargine 100 unit/mL subcutaneous solution (Lantus U-100 Insulin) 15 unit subcut DAILY diabetes 10/09/21 isosorbide mononitrate 30 mg tablet,extended release 24 hr 30 mg PO DAILY heart #30 tabs 01/05/22 empagliflozin 25 mg tablet (Jardiance) 12.5 mg PO DAILY diabetes 11/29/22 carvedilol 25 mg tablet 25 mg PO BID blood pressure 07/19/23 furosemide 20 mg tablet (Lasix) 60 mg (3 x 20 mg) PO BID 30 days #180 tabs 02/25/25 potassium chloride 20 mEq tablet,extended release (K-Tab) 20 meq PO DAILY #30 tabs 02/25/25 Hospital Course Operations None Procedures None Summary of Care Provided Minutes Spent on Discharge: 45 Hospital Course: SRIRAM MADDOX, is a 74 M with a PMH as outlined who presents via the ED on 02/23/2025 with a complaint of shortness of breath. He has a history of severe aortic stenosis, and was recently seen about a week ago and managed for acute hypoxic respiratory failure due to acute heart failure and severe aortic stenosis. He was intubated during that admission and had a cardiac cath which showed clean coronaries. He was discharged home, to follow with cardiology and to be set up for TAVR. However he said he started feeling short of breath again overnight. He denied any chest pain or palpitations, dizziness, nausea vomiting or any other symptoms. Of note to the most recent admission records and a different visit number ([id number]). Efforts were made to merge that visit and this current visit without success throughout his stay. Vitals in the ED were blood pressure of 139/74, pulse rate of 73, respiratory rate of 19 and temperature of 97.1 Fahrenheit. He was saturating at 100% on BIPAP. BiPAP CBC showed hemoglobin of 10.8 with WBC of 10 and platelets of 274. Chemistry showed sodium of 139 with potassium of 4.9 and creatinine of 3.2. Initial troponin was 142. proBNP was 81579. chest x-ray showed central vascularity which appeared increase in interstitial infiltrates in the perihilar region on the right and left. He is being admitted to be mnaged for acute hypoxic respiratory failure due to acute exacerbation of HFpEF in the setting of severe aortic stenosis. He was diuresed with IV Lasix. He was initially admitted to the ICU as he was requiring BiPAP. He was weaned off of BiPAP onto oxygen by nasal cannula and eventually on room air. He was transferred out of the ICU also shortness of breath resolved. I did speak to the naphtha washing system operator Dr. Adams who saw the patient during this admission. Nephrology was also consulted. Cardiology recommended patient being discharged on p.o. Lasix 60 mg twice daily. His minoxidil and chlorthalidone were discontinued. He is to follow-up with his primary care doctor and with cardiology as well as nephrology within 1 to 2 weeks. He has reported that the valve clinic in [place] in early March and he was counseled to keep this appointment. Patient seen and examined prior to discharge. He felt much better and had no complaints. He had an uneventful night and was eager to be discharged home. Review of systems otherwise negative. Labs and vitals reviewed. Home medication reviewed and reconciled. Physical Exam Const alert, oriented x3 and no apparent distress General Appearance: cooperative, comfortable and well kempt Orientation / Consciousness: awake Exam Limitations: no limitations HEENT normocephalic, head/scalp atraumatic, hearing grossly normal bilaterally, moist oral mucous membranes and oropharynx normal Mouth: oral and palatal mucosa normal Eyes EOMs intact bilaterally and conjunctivae normal Neck supple and no JVD Lymph Lymphatic: no lymphedema noted Resp Resp Narrative: mildly diminished breath sounds bibasally, no wheezes or crackles. On room air. Cardio regular rate, regular rhythm, S1 normal heart sound, S2 normal heart sound and no murmurs GI normal to inspection, nondistended, normoactive bowel sounds, soft to palpation, non-tender and non-distended Extremity normal to inspection, full ROM and no clubbing, cyanosis or edema General Extremity: no tenderness to palpation of joints or extremities Skin no rashes or lesions noted General Skin Exam: no breakdown Neuro oriented x3, CN's II-XII intact bilaterally and moves all extremities Sensorium / Orientation: awake and alert Motor Exam: strength 5/5 throughout Psych thought process normal, cooperative and affect normal Appearance: appropriate Weight / BMI Weight Weight: 172 lb 0.004 oz Body Mass Index (BMI) 25.4 ABG / Lab / Microbiology Data 02/25/25 04:44 02/25/25 04:44 Laboratory: Laboratory Results - last 24 hr 02/25/25 04:44: WBC 7.8, RBC 3.48 L, Hgb 10.3 L, Hct 31.1 L, MCV 89.4, MCH 29.6, MCHC 33.1, RDW Std Deviation 39.1, RDW Coeff of Samir 12.2, Plt Count 302, MPV 9.6, Immature Gran % (Auto) 0.500, Neut % (Auto) 56.1, Lymph % (Auto) 22.5, Burke % (Auto) 11.8 H, Eos % (Auto) 8.1 H, Baso % (Auto) 1.0, Absolute Neuts (auto) 4.4, Absolute Lymphs (auto) 1.75, Nucleated RBC % 0, Sodium 136, Potassium 4.6, Chloride 97 L, Carbon Dioxide 24.0, Anion Gap 15, BUN 75 H, Creatinine 3.65 H, Estim Creat Clear Calc 17.49 L, Est GFR (MDRD) Non-Af 17 L, BUN/Creatinine Ratio 20.7 H, Glucose 301 H, Calcium 8.9 02/25/25 08:13: POC Glucose 202 H 02/25/25 11:57: POC Glucose 330 H D/C Instructions Discharge Activity: Return to Normal Activity Weight Bearing Status: Weight bearing as tolerated Call your doctor if you observe: Fever of 101 or Higher, Shortness of breath, Dizziness, Swelling in the ankles and Chest pain DC O2, CPAP, BIPAP Needs Home O2 Discharge instructions: No DC home with Oxygen: No Meaningful Use Info Meaningful Use Meaningful Use Diagnoses (Choose all that apply): CHF AMI/Post PCI/Angioplasty Kevin/ARB at discharge?: Yes CHF KEVIN/ARB ordered at discharge?: No Reason KEVIN/ARB not ordered?: Worsening renal disease Documented LVEF (%): 35 Discharge Plan Admission Admit Date/Time: 02/23/25 10:38 Primary Reason for Your Visit: acute on chronic heart failure, severe aortic stenosis Attending Provider: Lana Menjivar Primary Care Provider: [facility] Consulting Providers: Sunshine Nesbitt Instructions Patient Instructions: Aortic Stenosis, Coping with Heart Failure Discharge Orders/Prescriptions Prescriptions: New furosemide [Lasix] 20 mg tablet 60 mg PO BID 30 Days Qty: 180 2RF potassium chloride [K-Tab] 20 mEq tablet extended release 20 meq PO DAILY Qty: 30 1RF Continued insulin glargine [Lantus U-100 Insulin] 100 unit/mL solution 15 unit SC DAILY atorvastatin 40 mg tablet 40 mg PO QHS Qty: 30 11RF ezetimibe [Zetia] 10 mg tablet 10 mg PO DAILY carvedilol 25 mg tablet 25 mg PO BID Rx Instructions: must administer with a meal/food Jardiance 25 mg tablet 12.5 mg PO DAILY aspirin [Adult Aspirin Regimen] 81 mg tablet,delayed release (DR/EC) 81 mg PO DAILY isosorbide mononitrate 30 mg tablet extended release 24 hr 30 mg PO DAILY Qty: 30 12RF Discontinued minoxidil 2.5 mg tablet 5 mg PO DAILY chlorthalidone 25 mg tablet 25 mg PO DAILY Referrals / Follow Up: Rah Mary MD [Med Staff - Active Staff] - 03/03/25 10:00 am Sunshine Nesbitt MD [Med Staff - Consulting] - Within 2 Weeks [facility] [Primary Care Provider] - Within 1 Week Disposition Disposition (needs filled in before D/C Order can be placed): Home, Self Care Charges/Coding Visit Charges Inpatient E&M: 29697 Disch Hosp >30min
--- NOTE | 2025-02-25 14:13 | DS.PCM_ITS ---
Providers Date of Admission: 02/23/25 Date of Discharge: 02/25/25 Primary Care Physician: [facility] Consultations 02/23/25 11:31 Consult: Nephrology Routine Consulting Provider: Sunshine Nesbitt Reason for Consult: JUAN on CKD EMERGENT Consult: No MD Notified: Yes Date Notified: 02/23/25 Time Notified: 11:35 Method of Notification: Answering Service Reason For Visit: ACUTE HYPOXIC RESPIRATORY FAILURE Diagnosis Discharge Diagnosis (1) Chronic kidney disease: Status: Chronic Code(s): N18.9 - Chronic kidney disease, unspecified Plan #Acute hypoxic respiratory failure due to acute on chronic HFrEF in the setting of severe aortic stenosis * patient was recently admitted ~ 1 week ago for acute hypoxic respiratory failure due to acute on chronic HFrEF as well as nonstemi and severe aortic stenosis * he was intubated in the previous admission and on extubation, he had cardiac cath which showed severe aortic stenosis. Records from that admission are under a different visit number and efforts are being made to merge that with this visit. * he was discharged home to follow up with cardiology on outpatient basis * He came in today with a complaint of shortness of breath and cough which is productive of clear sputum. He required BIPAP on arrival in the ED. * Initial troponin was 142 and essentially remaiined flat, only getting to 149. * pro BNP was 82619. * now on room air and feels much better. * Being diuresed with IV lasix 40mg bid. * engraver picture Dr Mary did see patient yesterday and today. He recommended patient being sent home on PO lasix 60mg bid when medically stable. * We are still waiting for his most recent visit to be merged with this visit in order to access his records from most recent visit. * titrate oxygen to maintain sats >90% * breathing treatment with bronchodilators. * * #JUAN on CKD III * Cr is slightly up to 3.37. Baseline Cr is ~ 2.7. * being diuresed with IV lasix which may also worsen Cr * nephrology consulted. Results from most recent admission is not seen in the EMR as that visit is still being merged * await records from most recent admission as it is still being merged with this visit. * #CAD; on aspirin, statin and imdur. #Type 2 diabetes mellitus * on lantus 15 units daily. ISS. Accuchecks ACHS. Hold Jardiance * #Hypertension: on carvedilol, chlorthalidone and minoxidil. Per discussion with cardiology, to review most recent med list when the records are merged to decide whether to continue chlorthalidone and minoxidil. DVT prophylaxis: lovenox, renally dosed Code status: full code * Disposition: Transfer to PCU Medications at Discharge Home Medications atorvastatin 40 mg tablet 40 mg PO QHS cholesterol #30 tabs 03/28/20 aspirin 81 mg tablet,delayed release (Adult Aspirin Regimen) 81 mg PO DAILY heart health 06/14/21 ezetimibe 10 mg tablet (Zetia) 10 mg PO DAILY cholesterol 10/09/21 insulin glargine 100 unit/mL subcutaneous solution (Lantus U-100 Insulin) 15 unit subcut DAILY diabetes 10/09/21 isosorbide mononitrate 30 mg tablet,extended release 24 hr 30 mg PO DAILY heart #30 tabs 01/05/22 empagliflozin 25 mg tablet (Jardiance) 12.5 mg PO DAILY diabetes 11/29/22 carvedilol 25 mg tablet 25 mg PO BID blood pressure 07/19/23 furosemide 20 mg tablet (Lasix) 60 mg (3 x 20 mg) PO BID 30 days #180 tabs 02/25/25 potassium chloride 20 mEq tablet,extended release (K-Tab) 20 meq PO DAILY #30 tabs 02/25/25
[2025-02-25 14:58] VITALS: BP 128/67; PULSE 62; RESP 16; TEMP 36.7; O2SAT 98
--- NOTE | 2025-02-25 14:59 | CASEMGMT ---
Patient has order for discharge. RN CM in to discuss needs at discharge. Patient denies needs or help at discharge. Patient had no further questions or concerns.
== END 2025-02-25 15:54 | disposition home or self-care (01) | DRG 189 ==
LOC: ED 10:27 → ICU 10:49 → PCU 02-24 15:18
PROVIDERS: Admitting Provider Student in an Organized Health Care Education/Training Program; Emergency Provider Emergency Medicine; Visit Provider Student in an Organized Health Care Education/Training Program
DX: J96.01 Acute respiratory failure with hypoxia (principal); I50.23 Acute on chronic systolic (congestive) heart failure; I13.0 Hypertensive heart and chronic kidney disease with heart failure and stage 1 through stage 4 chronic kidney disease, or unspecified chronic kidney disease; N17.9 Acute kidney failure, unspecified; E11.22 Type 2 diabetes mellitus with diabetic chronic kidney disease; N18.30 Chronic kidney disease, stage 3 unspecified; I35.0 Nonrheumatic aortic (valve) stenosis; E11.51 Type 2 diabetes mellitus with diabetic peripheral angiopathy without gangrene; I25.10 Atherosclerotic heart disease of native coronary artery without angina pectoris; Z79.4 Long term (current) use of insulin; Z79.82 Long term (current) use of aspirin; Z79.84 Long term (current) use of oral hypoglycemic drugs; Z79.899 Other long term (current) drug therapy; Z87.891 Personal history of nicotine dependence; Z95.1 Presence of aortocoronary bypass graft
CPT/HCPCS: 36415; 71046; 80048; 82962; 83880; 84484; 85025; 93005; 94002; 94640; 99285; A4216; J1938

== ENCOUNTER → 2025-03-03 | Outpatient (CLI) | payer MEDICARE, OTHER, SELFPAY ==
[2025-03-03 12:30] LABS: Anion Gap 17 (5-15); BUN 91 mg/dL (4-19); BUN/Creat Ratio 22.1 RATIO (10-20); Calcium,Total 9.4 mg/dL (7.6-11.0); Carbon Dioxide 26.1 mmol/L (21.0-32.0); Chloride 92 mmol/L (98-108); Glucose 203 mg/dL (70-99); Potassium 5.0 mmol/L (3.3-5.1)
== END | disposition home or self-care (01) ==
LOC: LAB 11:04
PROVIDERS: Referring Provider Internal Medicine Nephrology; Visit Provider Internal Medicine Nephrology
DX: N18.4 Chronic kidney disease, stage 4 (severe) (principal)
CPT/HCPCS: 36415; 80048

== ENCOUNTER 2025-04-02 14:07 | Emergency (ER) | payer MEDICARE, OTHER, SELFPAY ==
[2025-04-02 14:09] VITALS: BP 102/42; PULSE 63; RESP 16; TEMP 36.6; O2SAT 97; BMI 24.0
[2025-04-02 16:48] LABS: Hematocrit 32.5 % (40-54); Hemoglobin 11.0 g/dL (13.0-16.5); Immature Granulocytes Count 0.010 X10^3/uL (0.0-0.0); Mean Corp Hgb Conc 33.8 g/dL (32-36); Mean Corpuscular Volume 89.5 fL (80-94); Mean Platelet Vol. 9.8 fl (6.2-12.0); NRBC Flagged by Analyzer 0 % (0-5); Platelet Count 234 K/mm3 (150-450); RBC Distribution Width CV 12.5 % (11.6-14.6); RBC Distribution Width SD 40.9 fl (35.1-43.9); Red Blood Count 3.63 M/mm3 (4.6-6.2); White Blood Count 7.9 K/mm3 (4.4-11.0)
[2025-04-02 17:35] LABS: AST(SGOT) 16 U/L (<=37); Alanine Aminotransfer ALT/SGPT 9 U/L (<=46); Albumin, Serum 4.0 g/dL (3.4-4.8); Alkaline Phosphatase 82 U/L (40-129); Anion Gap 14 (5-15); BUN 64 mg/dL (4-19); BUN/Creat Ratio 17.5 RATIO (10-20); Calcium,Total 9.0 mg/dL (7.6-11.0); Carbon Dioxide 21.1 mmol/L (21.0-32.0); Chloride 99 mmol/L (98-108); Estimated Creatinine Clearance 17.12 ml/min (50-250); Globulin 3.1 g/dL (2.2-4.2); Glucose 198 mg/dL (70-99); Potassium 4.4 mmol/L (3.3-5.1)
--- NOTE | 2025-04-02 18:59 | EX.ED.GUMALE ---
HPI History of Present Illness Chief Complaint: Flank Pain Narrative Narrative: Patient is a 75-year-old male presenting to the emergency department for right groin pain that has been radiating up into his right flank. Patient has a past medical history of insulin-dependent diabetes, CKD, aortic valve stenosis, hypertension, coronary artery bypass in 2017, hyperlipidemia. He just had a valve replacement surgery done at [facility] on Saturday. Reports that when they were removing the catheter he began having ripping pain. Reports that he was discharged on Saturday from [facility] and has continued having intermittent right lower quadrant pain radiating up into the right flank. Reports some mild nausea. He denies chest pain, shortness of breath, vomiting, dysuria or hematuria. States he has chronic issues with constipation with no recent bowel change habits. Denies any focal numbness or weakness in his extremities. [facility] Medical History History of diabetes mellitus History of aortic stenosis Anemia CHF (congestive heart failure) Chronic kidney disease JUAN (acute kidney injury) History of aortic stenosis History of diabetes mellitus Chronic kidney disease Former tobacco use Valvular heart disease CKD (chronic kidney disease), stage IV HLD (hyperlipidemia) HTN (hypertension) CAD (coronary artery disease) Congestive heart failure Respiratory failure Abnormal stress test Essential hypertension Claudication of lower extremity Non-rheumatic aortic stenosis Atherosclerosis of coronary artery of [place] heart without angina pectoris Hyperlipidemia Type 2 diabetes mellitus without complications DDD (degenerative disc disease), lumbar Spinal stenosis of lumbar region without neurogenic claudication Spondylosis of lumbosacral region without myelopathy or radiculopathy Spondylosis without myelopathy or radiculopathy, lumbar region Other spondylosis, lumbar region Other intervertebral disc displacement, lumbosacral region Other intervertebral disc degeneration, lumbar region Home Medications ?Medication ?Instructions ?Recorded ?Last Taken ?Type aspirin 81 mg tablet,delayed 81 mg PO DAILY heart health 06/14/21 Unknown History release (Adult Aspirin Regimen) insulin glargine 100 unit/mL 15 unit subcut DAILY diabetes 10/09/21 Unknown History subcutaneous solution (Lantus U-100 Insulin) empagliflozin 25 mg tablet 12.5 mg PO DAILY diabetes 11/29/22 Unknown History (Jardiance) atorvastatin 40 mg tablet (Lipitor) 40 mg PO DAILY Hyperlipidemia 02/13/25 Unknown History carvedilol 25 mg tablet 25 mg PO DAILY Hypertension 02/13/25 Unknown History ezetimibe 10 mg tablet 10 mg PO DAILY Hypertension 02/13/25 Unknown History isosorbide mononitrate 30 mg 30 mg PO DAILY For Heart 02/13/25 Unknown History tablet,extended release 24 hr olopatadine 0.7 % eye drops 1 drp EACH EYE DAILY Allergic 02/13/25 Unknown History Conjuctivitis furosemide 20 mg tablet (Lasix) 60 mg (3 x 20 mg) PO BID 30 days 02/25/25 Unknown Rx #180 tabs potassium chloride 20 mEq 20 meq PO DAILY #30 tabs 02/25/25 Unknown Rx tablet,extended release (K-Tab) Allergy/AdvReac Type Severity Reaction Status Date / Time lisinopril AdvReac Mild cough Verified 04/02/25 14:13 Family History Sister Heart disease Daughter Heart disease Sister Heart disease Hypertension Daughter Heart disease Hypertension Mother Heart disease Father Heart disease Surgical History S/P laminectomy S/P lumbar laminectomy H/O coronary artery bypass surgery (08/06/16) Social History household members: spouse Smoking Status: Former smoker how long ago did patient quit smoking: Quit 1997. alcohol intake: current alcohol intake frequency: holidays/special occasions only details: <1x/month substance use type: does not use caffeine: Yes Type: coffee Number of servings: 5 ROS ROS ED ROS Narrative see HPI EXAM Physical Exam Narrative Exam Narrative: Vital signs: Reviewed General: Alert and orientedx3. No acute distress HEENT: Head is normocephalic and atraumatic, sinuses nontender, pupils equal round and reactive. Nares are patent. Oropharynx and throat exams normal. Neck: Supple without lymphadenopathy nontender Cardiovascular: Regular rate and rhythm, no murmurs. No rubs or gallops. Normal S1 and S2. DP and radial pulses are 2+ and symmetric throughout. Respiratory: Clear to auscultation bilaterally. No wheezes, rales, rhonchi Abdominal: Soft and mildly tender to palpation in the suprapubic and right lower quadrants. Normal bowel sounds. No guarding or rebound. There is right CVA tenderness to palpation. Extremities: Right groin site with mild bruising. No hematoma. No significant tenderness to palpation. No tenderness. Normal range of motion. Normal sensation. Skin: No rash or redness. Neurological: Cranial nerves II through XII are grossly intact. Normal strength and sensation throughout in all extremities. Normal cerebellar function The rest of the physical exam is unremarkable Const Vital Signs: 04/02/25 14:09 04/02/25 19:00 04/02/25 19:59 Temperature 97.8 F Temperature Source Oral Pulse Rate 63 81 62 Respiratory Rate 16 14 18 Blood Pressure 102/42 L 100/50 L 166/66 H Blood Pressure Mean 62 66 99 Pulse Ox 97 98 97 Oxygen Delivery Method Room Air Room Air 04/02/25 21:00 04/02/25 23:00 04/02/25 23:56 Temperature 98.4 F Temperature Source Pulse Rate 81 60 63 Respiratory Rate 18 14 18 Blood Pressure 104/87 H 166/65 H 177/70 H Blood Pressure Mean 92 98 105 Pulse Ox 100 99 97 Oxygen Delivery Method Room Air Room Air MDM MDM MDM Narrative Medical decision making narrative: Patient is a 75-year-old male presenting to the emergency department for right lower quadrant and right flank pain that started on Saturday. Patient was seen and examined. Vitals are stable. Patient resting in bed comfortably no acute distress. He did take a oral narcotic before coming and states this is controlling his pain. Differential includes but is not limited to: Aortic dissection, femoral dissection following procedure, retroperitoneal bleed, nephrolithiasis, pyelonephritis, UTI, appendicitis, colitis Patient offered analgesia however he states his pain is controlled at this time. CBC with no leukocytosis and anemia that appears chronic at 11.0. CMP with baseline CKD. Urinalysis with no occult blood, RBCs, evidence of UTI. GFR is chronically low however I think the benefits of obtaining the imaging with contrast outweigh the theoretical risk of possible kidney damage. This was discussed with patient and he is agreeable with proceeding with imaging with contrast. CTA of the abdomen with runoffs was obtained due to high concern for possible vascular injury given his pain started directly after the removal of the catheter on Saturday from his groin site. CTA shows no evidence of aortic aneurysm dissection, occlusion or stenosis. There is probable occlusion of the left anterior tibial artery. The remaining distal bilateral lower extremity runoff appears patent. No evidence of acute active contrast extirpation. No acute findings in the abdomen or pelvis as imaged. Normal appendix. Normal kidneys and bladder noted. Patient was reevaluated and a repeat lower extremity exam was completed. Again DP pulses are intact bilaterally. Extremities are warm to the touch. Motor and sensation are intact. No evidence of acute ischemic limb on exam. There is clinical evidence of collaterals around the anterior left tibial artery. No vascular surgeon on-call for discussion of patient for follow-up outpatient however I did provide him vascular surgery follow-up. He was instructed return if he develops any numbness, weakness, cold limb, paresthesias in his left leg. Patient and are updated on the negative imaging and workup. There is no evidence of any findings in the right flank, right lower quadrant or any vascular injury that is causing his pain. It may all be musculoskeletal or secondary to his recent procedure. Patient discharged from the Emergency Department. I do not feel that the patient's evaluation reveals any acute reason for admission at this time. I instructed them to either follow-up with their primary care physician or promptly return to the Emergency Department for reevaluation should symptoms worsen or new symptoms develop. I explained what symptoms would indicate the need to return to the emergency department. Shared decision making was used. The patient voiced understanding of the treatment plan and is agreeable with it. Clinical impression Right flank pain Abdominal pain Occlusion of left tibial artery History & Record Review Discussion w/independent historian: Patient and Significant other Additional record(s) reviewed:: Prior labs Lab Data Attestation: I reviewed the patient's lab results. Labs: Laboratory Results - last 24 hr 04/02/25 04/02/25 16:15 18:54 WBC 7.9 RBC 3.63 L Hgb 11.0 L Hct 32.5 L MCV 89.5 MCH 30.3 MCHC 33.8 RDW Std Deviation 40.9 RDW Coeff of Samir 12.5 Plt Count 234 MPV 9.8 Immature Gran % (Auto) 0.100 Neut % (Auto) 60.1 Lymph % (Auto) 16.9 L [place] % (Auto) 12.1 H Eos % (Auto) 9.5 H Baso % (Auto) 1.3 H Absolute Neuts (auto) 4.7 Absolute Lymphs (auto) 1.33 Nucleated RBC % 0 Sodium 134 Potassium 4.4 Chloride 99 Carbon Dioxide 21.1 Anion Gap 14 BUN 64 H Creatinine 3.67 H Estim Creat Clear Calc 17.12 L Est GFR (MDRD) Non-Af 16 L BUN/Creatinine Ratio 17.5 Glucose 198 H Calcium 9.0 Total Bilirubin 0.31 AST 16 ALT 9 Alkaline Phosphatase 82 Total Protein 7.0 Albumin 4.0 Globulin 3.1 Albumin/Globulin Ratio 1.3 Urine Color Straw Urine Clarity Clear Urine pH 6.0 Ur Specific [place] 1.010 Urine Protein 100 H Urine Glucose (UA) 1000 H Urine Ketones Negative Urine Occult Blood Negative Urine Nitrite Negative Urine Bilirubin Negative Urine Urobilinogen Normal Ur Leukocyte Esterase Negative Urine RBC 0-5 SEEN Urine WBC 0-5 SEEN Ur Squamous Epith Cells 0-5 SEEN Urine Bacteria 0 SEEN Urine Mucus 0 SEEN Radiography Diagnostic Testing: Clinical Impression(s) from Imaging Studies Abdomen/Pelvis CTA 04/02/25 19:20 IMPRESSION: 1. Moderate calcified and soft plaque formation throughout the abdominal aorta and its branches with no evidence of aneurysm, dissection, occlusion, or stenosis. 2. Moderate scattered calcified plaque formation throughout both lower extremity vasculature. 3. Probable occlusion of the left anterior tibial artery. 4. The remaining distal bilateral lower extremity runoff appear patent. 5. No evidence of active contrast extravasation. 6. No acute findings in the abdomen or pelvis as imaged. Reading Location: [facility] Discharge Plan Triage Chief Complaint: Flank Pain ED Provider: Julia Wu Dx/Rx/DC Orders Clinical Impression: Right low back pain, Occlusion of left tibial artery, Abdominal pain Instructions: Abdominal Pain, ED Back Pain (Acute or Chronic), ED Peripheral Artery Disease (PAD) Prescriptions: No Action insulin glargine [Lantus U-100 Insulin] 100 unit/mL solution 15 unit SC DAILY Jardiance 25 mg tablet 12.5 mg PO DAILY isosorbide mononitrate 30 mg tablet extended release 24 hr 30 mg PO DAILY atorvastatin [Lipitor] 40 mg tablet 40 mg PO DAILY ezetimibe 10 mg tablet 10 mg PO DAILY carvedilol 25 mg tablet 25 mg PO DAILY Rx Instructions: must administer with a meal/food olopatadine 0.7 % drops 1 drp EACH EYE DAILY furosemide [Lasix] 20 mg tablet 60 mg PO BID 30 Days Qty: 180 2RF potassium chloride [K-Tab] 20 mEq tablet extended release 20 meq PO DAILY Qty: 30 1RF aspirin [Adult Aspirin Regimen] 81 mg tablet,delayed release (DR/EC) 81 mg PO DAILY Primary Care Provider: [facility],[place] Referrals: Vinicio Isabel MD [Med Staff - Active Staff, Vascular Surgery] - 3-5 Days [facility],[place] [Primary Care Provider, None] Activity Restrictions/Additional Instructions: Take Motrin and Tylenol at home for pain control. If you develop any new or worsening symptoms including worsening abdominal pain, nausea, vomiting, fevers or chills need to return to ED immediately. Follow-up with the vascular surgeon as soon as possible below for the incidental findings of the occluded artery in your left leg. Return if you develop any numbness, weakness, tingling or cold leg or foot. Your evaluation in the Emergency Department did not reveal any acute reason for admission. However, I want to emphasize that you may be early in the course of a disease process or illness even if it is not present. For this reason you should follow-up within 24 hours for reevaluation with either your primary care physician or if necessary back here in the Emergency Department. You should return to the Emergency Department immediately if your symptoms worsen or new symptoms develop. Print Language: [place] Disposition Disposition: Home, Self Care Discharge Date/Time: 04/02/25 23:57
[2025-04-02 19:00] VITALS: BP 100/50; PULSE 81; RESP 14; O2SAT 98
[2025-04-02 19:01] LABS: Mucous, Urine 0 SEEN /hpf (<or=2+)
--- OUTSIDE RECORDS SUMMARY | 2025-04-02 19:09 | XMS RPT_ITS | CCD ---
Author Organization [facility] Care Team Providers Care Comber Operator Name Role Phone Roof PHYLLIS, Mango Lay Unavailable JOSEE MOORE Unavailable Unavailable JOSEE MOORE Unavailable Unavailable NO REFERRING DR Patricio Unavailable [facility] Primary Care Provider UnavailDr. Isrrael Adams Attending Provider Dr. Dandre Camacho Referring Provider [facility] Referring Provider Unavailable Dr. Isrrael Epstein Referring Provider [phone] Dr. Isrrael Epstein Other Provider Unavailable Primary Care Provider Unavailabl e Unavailable Primary Care Provider Unavailluis antonio Arcos MD, Chandrika Shaikh Primary Care Provider CHANDRIKA ARCOS Primary Care Unavailable SANJANAJESS SIMS Attending Unavailable SANJANA, JESS T Referring Unavailable SANJANA, JESS T Referring Unavailable SANJANA, JESS T Referring Unavailable SANJANA, JESS T Attending Unavailable NOAM RODRIGUEZ Referring Unavailable ISRRAEL, CHANDRIKA C Primary Care Unavailable SANJANA, JESS T Referring Unavailable ISRRAEL, CHANDRIKA C Primary Care Unavailable THAO KERR Attending Unavailable SANJANA, JESS T Referring Unavailable ISRRAEL, CHANDRIKA C Primary Care Unavailable SANJANA, JESS T Attending Unavailable SANJANA, JESS T Referring Unavailable ISRRAEL, CHANDRIKA C Primary Care Unavailable [facility] Primary Care Provider Unavailabl e [facility] Referring Provider Unavailable Roof CHILD CARE WORKER, CHILD CARE WORKER-C Mango Lay Attending Provider [phone] Dr. Antonio Stephens Attending Provider Emeka JUNE, Dr. Jacome Emergency Provider [facility] Primary Care Provider Unavailluis antonio Bro MD, Dr. Vandana De Dios Admit Provider Adali JUNE, Dr. Vandana De Dios Attending Provider Adali JUNE, Dr. Vandana De Dios Other Provider Tiara JUNE, Dr. Lana Vora Attending Provider Galindo JUNE, Dr. Alicea Other Provider Mike JUNE, Dr. Gabriel Other Provider Deb JUNE, Dr. Harris Other Provider Frankie JUNE, Dr. Cm Other Provider Celso STEWART, Dr. Nur Other Provider Milvia JUNE, Dr. Jony Sparrow Other Provider [phone] Candelaria JUNE, Dr. Varela Other Provider Qasim JUNE, Dr. Machado Other Provider [phone] Kathy JUNE, Dr. Degroot Other Provider Rudy JUNE, Dr. Lee Other Provider [phone] Fabio JUNE, Dr. Loyola Other Provider [phone] Pratik JUNE, Dr. Galvan Other Provider Sekou JUNE, Dr. Chung Other Provider Dr. Ирина Herrera MD Other Provider Unavailabl kang Enriquez MD, Dr. Candelaria Other Provider [phone] Erlin JUNE, Dr. Wills Other Provider Kira JUNE, Dr. Call Other Provider [phone] Kassi JUNE, Dr. Chaudhry Other Provider Barbara STEWART, Dr. Sin Other Provider [phone] Joanne JUNE, Dr. Armendariz Other Provider [phone] Taylor JUNE, Dr. Hassan Other Provider Dr. Juliocesar Cao DO Other Provider Demetrius JUNE, Dr. Guillaume Other Provider Farshad JUNE, Dr. Montoya Other Provider Annette JUNE, Dr. Clark Other Provider [place] Primary Care Provider Nimco Medley MD, Dr. Alicea Attending Provider Tiara JUNE, Dr. Lana Vora Other Provider Celso STEWART, Dr. Nur Attending Provider Tyra JUNE, Dr. Monreal Attending Provider Performed By: #### L 100.0100 ####[facility] [address] [place], [address] MCV Normal 80-94 [facility] Comment on above: Result Comment: Canc elled via OM: Order cancelled - Patient discharged Performed By: #### L 501.080 #### [facility] [address] [place], [address] Result Comment: Canc elled via OM: Order cancelled - Patient discharged Performed By: #### L 100.0100 ####[facility] [address] [place], [address] NEUT% Normal 47-70 [facility] Comment on above: Result Comment: Canc elled via OM: Order cancelled - Patient discharged Performed By: #### L 501.080 #### [facility] [address] [place], [address] Result Comment: Canc elled via OM: Order cancelled - Patient discharged Performed By: #### L 100.0100 ####[facility] [address] [place], [address] PLT Normal 150-450 [facility] Comment on above: Result Comment: Canc elled via OM: Order cancelled - Patient discharged Performed By: #### L 501.080 #### [facility] [address] [place], [address] Result Comment: Canc elled via OM: Order cancelled - Patient discharged Performed By: #### L 100.0100 ####[facility] [address] [place], [address] RBC Normal 4.6-6.2 [facility] Comment on above: Result Comment: Canc elled via OM: Order cancelled - Patient discharged Performed By: #### L 501.080 #### [facility] [address] [place], [address] Result Comment: Canc elled via OM: Order cancelled - Patient discharged Performed By: #### L 100.0100 ####[facility] [address] [place], [address] RDW CV Normal 11.6-14.6 [facility] Comment on above: Result Comment: Canc elled via OM: Order cancelled - Patient discharged Performed By: #### L 501.080 #### [facility] [address] [place], [address] Result Comment: Canc elled via OM: Order cancelled - Patient discharged Performed By: #### L 100.0100 ####[facility] [address] [place], [address] RDW SD Normal 35.1-43.9 [facility] Comment on above: Result Comment: Canc elled via OM: Order cancelled - Patient discharged Performed By: #### L 501.080 #### [facility] [address] [place], [address] Result Comment: Canc elled via OM: Order cancelled - Patient discharged Performed By: #### L 100.0100 ####[facility] [address] [place], [address] WBC Normal 4.4-11.0 [facility] Comment on above: Result Comment: Canc elled via OM: Order cancelled - Patient discharged Performed By: #### L 501.080 #### [facility] [address] [place], [place], [address] Result Comment: Canc elled via OM: Order cancelled - Patient discharged Performed By: #### L 100.0100 ####[facility] [address] [place], [place], [address] Culture, Blood (WB)on 2024 CUB Blood cultures x2, from two different sites No growth in 5 days. Normal [facility] Comment on above: Performed By: #### L 501.080 #### [facility] [address] [place], [place], [address] Performed By: #### L 300.3900, L500.4050, L100.0100, L503.6005, M200.1000, L501.4021, L300.4310 ####[facility] [address] [place], [address] Absolute lymphocyte countOrd ered By: Lana Menjivar on 02-17-2025 Lymphocytes Auto (Unsp spec) [#/Vol] 1.14 10*3/uL 0.83-4.51 [facility] Absolute neutrophil countOrd ered By: Lana Menjivar on 02-17-2025 Neutrophils (Bld) [#/Vol] 4.6 10*3/uL 2.0-7.7 [facility] Activated partial thrombopla stin time (aPTT) in platelet poor plasma by coagulation aOrdered By: Rah Mary on 02-17-2025 aPTT Coag (PPP) [Time] 31.1 s 24.1-36.2 [facility] Anion gap in Serum or Plasma Ordered By: Rah Mary on 02-17-2025 Anion gap [Moles/Vol] 19 mmol/L High 5-15 [facility] Automated lymphocyte count a s percentage of total leukocytesOrdered By: Lana Menjivar on 02-17-2025 Lymphocytes/100 WBC Auto (Unsp spec) 15.7 % Low 19-41 [facility] BUN/creatinine ratioOrdered By: Rah Mary on 02-17-2025 Urea nitrogen/Creatinine [Mass ratio] 17.9 mg/mg 10- [facility] Basic Metabolic Profile (BMP )on 02-17-2025 BUN/CRE 17.9 RATIO Normal - [facility] Comment on above: Performed By: #### L 500.4050, L501.5200 #### [facility] [address] [place], [address] Performed By: #### L 300.4310, L500.2500, L300.3900 ####[facility] [address] [place], [address] Calcium [Mass/Vol] 8.8 mg/dL Normal 7.6-11.0 [facility] Comment on above: Performed By: #### L 500.4050, L501.5200 #### [facility] [address] [place], [address] Performed By: #### L 300.4310, L500.2500, L300.3900 ####[facility] [address] [place], [address] Chloride [Moles/Vol] 104 mmol/L Normal 98-108 [facility] Comment on above: Performed By: #### L 500.4050, L501.5200 #### [facility] [address] [place], [address] Performed By: #### L 300.4310, L500.2500, L300.3900 ####[facility] [address] [place], [address] CO2 [Moles/Vol] 18.7 mmol/L Low 21.0-32.0 [facility] Comment on above: Performed By: #### L 500.4050, L501.5200 #### [facility] [address] [place], [address] Performed By: #### L 300.4310, L500.2500, L300.3900 ####[facility] [address] [place], [address] Creatinine [Mass/Vol] 4.38 mg/dL High 0.70-1.20 [facility] Comment on above: Performed By: #### L 500.4050, L501.5200 #### [facility] [address] [place], [address] Performed By: #### L 300.4310, L500.2500, L300.3900 ####[facility] [address] [place], [address] ECRCL 15.05 ml/min Low 50-250 [facility] Comment on above: Performed By: #### L 500.4050, L501.5200 #### [facility] [address] [place], [address] Performed By: #### L 300.4310, L500.2500, L300.3900 ####[facility] [address] [place], [address] GAP 19 High 5-15 [facility] Comment on above: Performed By: #### L 500.4050, L501.5200 #### [facility] [address] [place], [address] Performed By: #### L 300.4310, L500.2500, L300.3900 ####[facility] [address] [place], [address] GFR/1.73 sq M.predicted among non-blacks MDRD (S/P/Bld) [Vol rate/Area] 13 mL/min/{1.73_m2} Low >60 [facility] Comment on above: Result Comment: mL/m in/1.73m2 CKD-EPI Creatinine Equation (2020) Performed By: #### L 500.4050, L501.5200 #### [facility] [address] [place], [address] Result Comment: mL/m in/1.73m2 CKD-EPI Creatinine Equation (2020) Performed By: #### L 300.4310, L500.2500, L300.3900 ####[facility] [address] [place], [address] Glucose [Mass/Vol] 168 mg/dL High 70-99 [facility] Comment on above: Performed By: #### L 500.4050, L501.5200 #### [facility] [address] [place], [address] Performed By: #### L 300.4310, L500.2500, L300.3900 ####[facility] [address] [place], [address] Potassium [Moles/Vol] 3.5 mmol/L Normal 3.3-5.1 [facility] Comment on above: Performed By: #### L 500.4050, L501.5200 #### [facility] [address] [place], [address] Performed By: #### L 300.4310, L500.2500, L300.3900 ####[facility] [address] [place], [address] Sodium [Moles/Vol] 141 mmol/L Normal 133-145 [facility] Comment on above: Performed By: #### L 500.4050, L501.5200 #### [facility] [address] [place], [address] Performed By: #### L 300.4310, L500.2500, L300.3900 ####[facility] [address] [place], [address] Urea nitrogen [Mass/Vol] 79 mg/dL High 4-19 [facility] Comment on above: Performed By: #### L 500.4050, L501.5200 #### [facility] [address] [place], [address] Performed By: #### L 300.4310, L500.2500, L300.3900 ####[facility] [address] [place], [address] Basophil percentageOrdered B y: Lana Menjivar on 02-17-2025 Basophils/100 WBC (Bld) 0.7 % 0-1 [facility] Bedside Glucoseon 02-17-2025 FINGERSTICK GLU 177 mg/dL High 74-106 [facility] Comment on above: Result Comment: KURTIS GEMENT OF PATIENT CARE PER NURSING PROTOCOL Performed By: #### L 501.080 #### [facility] [address] [place], [address] Result Comment: KURTIS GEMENT OF PATIENT CARE PER NURSING PROTOCOL Performed By: #### L 501.080 ####[facility] [address] [place], [address] FINGERSTICK GLU 206 mg/dL High 74-106 [facility] Comment on above: Result Comment: KURTIS GEMENT OF PATIENT CARE PER NURSING PROTOCOL Performed By: #### L 501.080 #### [facility] [address] [place], [address] Result Comment: KURTIS GEMENT OF PATIENT CARE PER NURSING PROTOCOL Performed By: #### L 501.080 ####[facility] [address] [place], [address] FINGERSTICK GLU 158 mg/dL High 74-106 [facility] Comment on above: Result Comment: KURTIS GEMENT OF PATIENT CARE PER NURSING PROTOCOL Performed By: #### L 501.080 #### [facility] [address] [place], [address] Result Comment: KURTIS SMITH OF PATIENT CARE PER NURSING PROTOCOL Performed By: #### L 501.080 ####[facility] [address] [place], [address] CBC W/Diff, Automatedon 02-05-2024 Absolute Lymph 1.14 X10 3/uL Normal 0.83-4.51 [facility] Comment on above: Performed By: #### L 501.080 #### [facility] [address] [place], [address] Performed By: #### L 100.0100 ####[facility] [address] [place], [address] Absolute Neut 4.6 X10 3/uL Normal 2.0-7.7 [facility] Comment on above: Performed By: #### L 501.080 #### [facility] [address] [place], [address] Performed By: #### L 100.0100 ####[facility] [address] [place], [address] Basophils/100 WBC (Bld) 0.7 % Normal 0-1 [facility] Comment on above: Performed By: #### L 501.080 #### [facility] [address] [place], [address] Performed By: #### L 100.0100 ####[facility] [address] [place], [address] Eosinophils/100 WBC (Bld) 7.7 % High 0-5 [facility] Comment on above: Performed By: #### L 501.080 #### [facility] [address] [place], [address] Performed By: #### L 100.0100 ####[facility] [address] [place], [address] Erythrocyte distribution width (RBC) [Ratio] 12.9 % Normal 11.6-14.6 [facility] Comment on above: Performed By: #### L 501.080 #### [facility] [address] [place], [address] Performed By: #### L 100.0100 ####[facility] [address] [place], [address] Hematocrit (Bld) [Volume fraction] 30.1 % Low 40-54 [facility] Comment on above: Performed By: #### L 501.080 #### [facility] [address] [place], [address] Performed By: #### L 100.0100 ####[facility] [address] [place], [address] Hemoglobin (Bld) [Mass/Vol] 10.1 g/dL Low 13.0-16.5 [facility] Comment on above: Performed By: #### L 501.080 #### [facility] [address] [place], [address] Performed By: #### L 100.0100 ####[facility] [address] [place], [address] IG% 0.300 Normal 0.0-0.9 [facility] Comment on above: Result Comment: IG% - Immature Granulocytes (promyelocytes, myelocytes and metamyelocytes) > 1% indicates that a LEFT SHIFT is Present. Performed By: #### L 501.080 #### [facility] [address] [place], [address] Result Comment: IG% - Immature Granulocytes (promyelocytes, myelocytes andmetamyelocytes) > 1% indicates that a LEFT SHIFT is Present. Performed By: #### L 100.0100 ####[facility] [address] [place], [address] Lymphocytes/100 WBC (Bld) 15.7 % Low 19-41 [facility] Comment on above: Performed By: #### L 501.080 #### [facility] [address] [place], [address] Performed By: #### L 100.0100 ####[facility] [address] [place], [address] MCH (RBC) [Entitic mass] 30.1 pg Normal 27.0-32.0 [facility] Comment on above: Performed By: #### L 501.080 #### [facility] [address] [place], [address] Performed By: #### L 100.0100 ####[facility] [address] [place], [address] MCHC (RBC) [Mass/Vol] 33.6 g/dL Normal 32-36 [facility] Comment on above: Performed By: #### L 501.080 #### [facility] [address] [place], [address] Performed By: #### L 100.0100 ####[facility] [address] [place], [address] MCV (RBC) [Entitic vol] 89.9 fL Normal 80-94 [facility] Comment on above: Performed By: #### L 501.080 #### [facility] [address] [place], [address] Performed By: #### L 100.0100 ####[facility] [address] [place], [address] Monocytes/100 WBC (Bld) 12.9 % High 0-10 [facility] Comment on above: Performed By: #### L 501.080 #### [facility] [address] [place], [address] Performed By: #### L 100.0100 ####[facility] [address] [place], [address] Neutrophils/100 WBC (Bld) 62.7 % Normal 47-70 [facility] Comment on above: Performed By: #### L 501.080 #### [facility] [address] [place], [address] Performed By: #### L 100.0100 ####[facility] [address] [place], [address] Nucleated RBC (Bld) [#/Vol] 0 10*3/uL Normal 0-5 [facility] Comment on above: Performed By: #### L 501.080 #### [facility] [address] [place], [address] Performed By: #### L 100.0100 ####[facility] [address] [place], [address] Platelet mean volume (Bld) [Entitic vol] 9.8 fL Normal 6.2-12.0 [facility] Comment on above: Performed By: #### L 501.080 #### [facility] [address] [place], [address] Performed By: #### L 100.0100 ####[facility] [address] [place], [address] Platelets (Bld) [#/Vol] 175 10*3/uL Normal 150-450 [facility] Comment on above: Performed By: #### L 501.080 #### [facility] [address] [place], [address] Performed By: #### L 100.0100 ####[facility] [address] [place], [address] RBC (Bld) [#/Vol] 3.35 10*6/uL Low 4.6-6.2 [facility] Comment on above: Performed By: #### L 501.080 #### [facility] [address] [place], [address] Performed By: #### L 100.0100 ####[facility] [address] [place], [address] RDW SD 42.5 fl Normal 35.1-43.9 [facility] Comment on above: Performed By: #### L 501.080 #### [facility] [address] [place], [address] Performed By: #### L 100.0100 ####[facility] [address] [place], [address] WBC (Bld) [#/Vol] 7.3 10*3/uL Normal 4.4-11.0 [facility] Comment on above: Performed By: #### L 501.080 #### [facility] [address] [place], [address] Performed By: #### L 100.0100 ####[facility] [address] [place], [address] Carbon dioxide, total [Moles /volume] in Central venous bloodOrdered By: Rah Mary on 02-17-2025 CO2 [Moles/Vol] 18.7 mmol/L Low 21.0-32.0 [facility] Chloride assayOrdered By: Cy ril Tyra on 02-17-2025 Chloride [Moles/Vol] 104 mmol/L 98-108 [facility] Discharge Instructionon 02-05 Discharge Instruction [facility] Department [address] [place] [address] Instructions for Home/Discharge Instructions 02/17/25 1614 MR#: [id number] Acct: [id number] Name: SAM VIDALES Rep #: [id number] : 1950 74 From: Lana Menjivar MD PCP: [place] Hospital Status:ADM IN Discharge Instructions DC O2, CPAP, BIPAP needs Home O2 Discharge instructions: No Dressing / Incision Discharge Activity: Return to Normal Activity Weight Bearing Status: Weight bearing as tolerated Dressing / Incision Call your doctor if you observe: Fever of 101 or Higher, Shortness of breath, Dizziness, Swelling in the ankles and Chest pain Follow Up Care Test Results: Test results from this visit will be discussed in further detail at your follow-up appointment, if applicable. Discharge Plan Admission Admit Date/Time: 02/12/25 20:25 Primary Reason for Your Visit: severe aortic stenosis, acute hypoxic respriratory failure Attending Provider: Lana Menjivar Primary Care Provider: [facility] Consulting Providers: Vandana Bro; Deanne Medley; Harvey Mckeon; Steven Boyd; Toi David; Boom Garg; Jony Steel; Avery Gaona; Carter Tripp; Mikayla Chavez; Jesus Grant; Nir Mccarthy; Cole Christie; Juliet Sapp; Ирина Herrera; Teagan Enriquez; Erlin,Johann; Jakub Malone; Isidoro Solitario; Merrick Jimenez; Marcello Rubio; Sonya Vazquez; Juliocesar Cao; Markell Romo; Jan Yen; Amber Bryant Instructions Patient Instructions: Coping with Kidney Failure, Acute Kidney Failure Dc Additional Instructions / Restrictions: to see PCP/electrician substation for follow up BMP within one week. Discharge Orders/Prescriptions Prescriptions: Continued isosorbide mononitrate 30 mg tablet extended release 24 hr 30 mg PO DAILY minoxidil 2.5 mg tablet 5 mg PO BID atorvastatin [Lipitor] 40 mg tablet 40 mg PO DAILY ezetimibe 10 mg tablet 10 mg PO DAILY carvedilol 25 mg tablet 25 mg PO DAILY Rx Instructions: must administer with a meal/food felodipine 10 mg tablet extended release 24 hr 10 mg PO DAILY dulaglutide 0.75 mg/0.5 mL pen injector 0.75 mg subcut QWEEK insulin glargine [Basaglar KwikPen U-100 Insulin] 100 unit/mL (3 mL) insulin pen 28 unit subcut DAILY olopatadine 0.7 % drops 1 drp EACH EYE DAILY empagliflozin 25 mg tablet 25 mg PO DAILY Referrals / Follow Up: Rah Mary MD [Med Staff - Active Staff] - 03/03/25 10:00 am (APPOINTMENT WITH [facility] Sunshine Nesbitt MD [Med Staff - Consulting] - Within 1 Week [facility] - Within 1 Week Disposition Disposition (needs filled in before D/C Order can be placed): Home, Self Care 02/17/25 9035 Lana Menjivar MD CC: Dr. Steven Boyd MD; Dr. Harvey Mckeon MD; Dr. Vandana Bro MD; Dr. Toi David MD; Dr. Jony Steel MD; Dr. Boom Garg DO; Dr. Avery Gaona MD; Dr. Deanne Medley MD; Dr. Carter Tripp MD; Dr. Jesus Grant MD; Dr. Nir Mccarthy MD; Dr. Cole Christie MD; Dr. Juliet Sapp MD; Dr. Ирина Herrera MD; Dr. Teagan Enriquez MD; Dr. Amber Bryant MD; Dr. Jakub Malone MD; Dr. Johann Kern MD; Dr. Isidoro Solitario MD; Dr. Sonya Vazquez MD; Dr. Marcello Rubio MD; Dr. Merrick Jimenez DO; Dr. Juliocesar Cao DO; Dr. Markell Romo MD; Dr. Jan Yen MD; Dr. Mikayla Chavez MD; [facility] Signed Normal [facility] Discharge Instruction Normal [facility] Eosinophil percentageOrdered By: Lana Menjivar on 02-17-2025 Eosinophils/100 WBC (Bld) 7.7 % High 0-5 [facility] Erythrocyte distribution wid th ratioOrdered By: Lana Menjivar on 02-17-2025 Erythrocyte distribution width (RBC) [Ratio] 12.9 % 11.6-14.6 [facility] Erythrocyte distribution wid th standard deviationOrdered By: Lana Menjivar on 02-17-2025 Erythrocyte distribution width (RBC) [Ratio] 42.5 fl 35.1-43.9 [facility] Glomerular filtration rate ( GFR) estimation/1.73 sq m using serum, plasma, or whole bOrdered By: Rah Mary on 02-17-2025 GFR/1.73 sq M.predicted among non-blacks MDRD (S/P/Bld) [Vol rate/Area] 13 mL/min/{1.73_m2} Low >60 [facility] Comment on above: mL/min/1.73m2 CKD-EP I Creatinine Equation (2020) Glucose measurement at [facility] deOrdered By: Lana Menjivar on 02-17-2025 Glucose [Mass/Vol] 177 mg/dL High 74-106 [facility] Comment on above: MANAGEMENT OF PATIEN T CARE PER NURSING PROTOCOL Hematocrit Auto (Bld) [Volum e fraction]Ordered By: Lana Menjivar on 02-17-2025 Hematocrit (Bld) [Volume fraction] 30.1 % Low 40-54 [facility] Hemoglobin measurementOrdere d By: Lana Menjivar on 02-17-2025 Hemoglobin (Bld) [Mass/Vol] 10.1 g/dL Low 13.0-16.5 [facility] Immature granulocytes/100 WB C Auto (Bld)Ordered By: Lana Menjivar on 02-17-2025 Immature granulocytes/100 WBC (Bld) 0.300 % 0.0-0.9 [facility] Comment on above: IG% - Immature Granu locytes (promyelocytes, myelocytes and metamyelocytes) > 1% indicates that a LEFT SHIFT is Present. International normalized rat io (INR) calculationOrdered By: Rah Mary on 02-17-2025 INR Coag (Bld) [Relative time] 1.1 {INR} [facility] MCV (mean corpuscular volume ) determinationOrdered By: Lana Menjivar on 02-17-2025 MCV (RBC) [Entitic vol] 89.9 fL 80-94 [facility] Mean corpuscular hemoglobin (MCH) determinationOrdered By: Lana Menjivar on 02-17-2025 MCH (RBC) [Entitic mass] 30.1 pg 27.0-32.0 [facility] Mean corpuscular hemoglobin concentration (MCHC) determinationOrdered By: Lana Menjivar on 02-17-2025 MCHC (RBC) [Mass/Vol] 33.6 g/dL 32-36 [facility] Mean platelet volume determi nationOrdered By: Lana Menjivar on 02-17-2025 Platelet mean volume (Bld) [Entitic vol] 9.8 fL 6.2-12.0 [facility] Monocyte percentageOrdered B y: Lana Menjivar on 02-17-2025 Monocytes/100 WBC (Bld) 12.9 % High 0-10 [facility] Neutrophil percentageOrdered By: Lana Menjivar on 02-17-2025 Neutrophils/100 WBC (Bld) 62.7 % 47-70 [facility] Nucleated red blood cell per centageOrdered By: Lana Menjivar on 02-17-2025 Nucleated RBC/100 WBC (Bld) [Ratio] 0 % 0-5 [facility] Partial Thromboplast Timeon 02-17-2025 aPTT Coag (Bld) [Time] 31.1 s Normal 24.1-36.2 [facility] Comment on above: Performed By: #### L 500.4050, L501.5200 #### [facility] [address] [place], [address] Performed By: #### L 300.4310, L500.2500, L300.3900 ####[facility] [address] [place], [place], [id number] Platelet countOrdered By: Larissa Menjivar on 02-17-2025 Platelets (Bld) [#/Vol] 175 10*3/uL 150-450 [facility] Potassium measurement (mass/ volume)Ordered By: Rah Tyra on 02-17-2025 Potassium (Unsp spec) [Mass/Vol] 3.5 mmol/L 3.3-5.1 [facility] Prothrombin Time w/INRon INR Coag (PPP) [Relative time] 1.1 {INR} Normal [facility] Comment on above: Performed By: #### L 500.4050, L501.5200 #### [facility] [address] [place], [address] Performed By: #### L 300.4310, L500.2500, L300.3900 ####[facility] [address] [place], [address] PT Coag (PPP) [Time] 14.3 s Normal 11.7-14.9 [facility] Comment on above: Performed By: #### L 500.4050, L501.5200 #### [facility] [address] [place], [address] Performed By: #### L 300.4310, L500.2500, L300.3900 ####[facility] [address] [place], [address] Prothrombin timeOrdered By: Rah Tyra on 02-17-2025 PT Coag (PPP) [Time] 14.3 s 11.7-14.9 [facility] RBC Auto (Bld) [#/Vol]Ordere d By: Lanacrissy Menjivar on 02-17-2025 RBC (Bld) [#/Vol] 3.35 10*6/uL Low 4.6-6.2 [facility] Serum creatinine measurement (mass/volume)Ordered By: Rah Mary on 02-17-2025 Creatinine [Mass/Vol] 4.38 mg/dL High 0.70-1.20 [facility] Serum glucose measurement (m ass/volume)Ordered By: Rah Mary on 02-17-2025 Glucose [Mass/Vol] 168 mg/dL High 70-99 [facility] Serum or plasma calcium tanya urement (mass/volume)Ordered By: Rah Mary on 02-17-2025 Calcium [Mass/Vol] 8.8 mg/dL 7.6-11.0 [facility] Serum or plasma urea nitroge n measurement (mass/volume)Ordered By: Rah Mary on 02-17-2025 Urea nitrogen [Mass/Vol] 79 mg/dL High 4-19 [facility] Sodium levelOrdered By: Abbey Mary on 02-17-2025 Sodium [Moles/Vol] 141 mmol/L 133-145 [facility] White blood cell (WBC) count Ordered By: Lana Menjivar on 02-17-2025 WBC (Bld) [#/Vol] 7.3 10*3/uL 4.4-11.0 [facility] 12 Lead EKGon 02-16-2025 12 Lead EKG [facility] Cardiovascular Services [address] [place] [address] 12 Lead EKG 02/16/25 0558 MR#: [id number] Acct: [id number] Name: SAM VIDALES Rep #: [id number] : 1950 74 From: Dandre Deras MD Attending Dr: Dr. Lana Menjivar MD Status: DI S IN Ordering Dr: Rah Mary MD Date: 02/16/25 Location: [facility] Sex: M C Admitted: 02/12/25 Test Reason : AM EKG Blood Pressure : */* mmHG Vent. Rate : 66 BPM Atrial Rate : 66 BPM P-R Int : 198 ms QRS Dur : 98 ms QT Int : 546 ms P-R-T Axes : 56 -5 82 degrees QTcB Int : 572 ms Critical Test Result: Long QTc Normal sinus rhythm Left ventricular hypertrophy with repolarization abnormality ( R in aVL , Sokolow-Jacob , Marble product ) Prolonged QT Abnormal ECG When compared with ECG of 12-Feb-2025 18:46, NC interval has decreased ST no longer depressed in Anterior leads T wave inversion more evident in Lateral leads QT has lengthened Confirmed by Dandre Deras ([id number]), online editor JASS MCFARLAND ([id number]) on 02/18/2025 6:26:20 AM Referred By: Confirmed By: Dandre Deras 02/18/2526 Date Dandre Deras MD CC: Dr. Rah Mary MD; Dr. Lana Menjivar MD; [facility] Signed Normal [facility] 12 Lead EKG Normal [facility] Basic Metabolic Profile (BMP )on 02-16-2025 BUN/CRE 17.2 RATIO Normal 10-20 [facility] Comment on above: Performed By: #### L 500.4050, L501.5200 #### [facility] [address] [place], [address] Performed By: #### L 500.2500 ####[facility] [address] [place], [address] Calcium [Mass/Vol] 8.7 mg/dL Normal 7.6-11.0 [facility] Comment on above: Performed By: #### L 500.4050, L501.5200 #### [facility] [address] [place], [address] Performed By: #### L 500.2500 ####[facility] [address] [place], [address] Chloride [Moles/Vol] 99 mmol/L Normal 98-108 [facility] Comment on above: Performed By: #### L 500.4050, L501.5200 #### [facility] [address] [place], [address] Performed By: #### L 500.2500 ####[facility] [address] [place], [address] CO2 [Moles/Vol] 20.2 mmol/L Low 21.0-32.0 [facility] Comment on above: Performed By: #### L 500.4050, L501.5200 #### [facility] [address] [place], [address] Performed By: #### L 500.2500 ####[facility] [address] [place], [address] Creatinine [Mass/Vol] 4.45 mg/dL High 0.70-1.20 [facility] Comment on above: Performed By: #### L 500.4050, L501.5200 #### [facility] [address] [place], [address] Performed By: #### L 500.2500 ####[facility] [address] [place], [address] ECRCL 14.81 ml/min Low 50-250 [facility] Comment on above: Performed By: #### L 500.4050, L501.5200 #### [facility] [address] [place], [address] Performed By: #### L 500.2500 ####[facility] [address] [place], [address] GAP 20 High 5-15 [facility] Comment on above: Performed By: #### L 500.4050, L501.5200 #### [facility] [address] [place], [address] Performed By: #### L 500.2500 ####[facility] [address] [place], [address] GFR/1.73 sq M.predicted among non-blacks MDRD (S/P/Bld) [Vol rate/Area] 13 mL/min/{1.73_m2} Low >60 [facility] Comment on above: Result Comment: mL/m in/1.73m2 CKD-EPI Creatinine Equation (2020) Performed By: #### L 500.4050, L501.5200 #### [facility] [address] [place], [address] Result Comment: mL/m in/1.73m2 CKD-EPI Creatinine Equation (2020) Performed By: #### L 500.2500 ####[facility] [address] [place], [address] Glucose [Mass/Vol] 180 mg/dL High 70-99 [facility] Comment on above: Performed By: #### L 500.4050, L501.5200 #### [facility] [address] [place], [address] Performed By: #### L 500.2500 ####[facility] [address] [place], [address] Potassium [Moles/Vol] 3.4 mmol/L Normal 3.3-5.1 [facility] Comment on above: Performed By: #### L 500.4050, L501.5200 #### [facility] [address] [place], [address] Performed By: #### L 500.2500 ####[facility] [address] [place], [address] Sodium [Moles/Vol] 139 mmol/L Normal 133-145 [facility] Comment on above: Performed By: #### L 500.4050, L501.5200 #### [facility] [address] [place], [address] Performed By: #### L 500.2500 ####[facility] [address] [place], [address] Urea nitrogen [Mass/Vol] 76 mg/dL High 4-19 [facility] Comment on above: Performed By: #### L 500.4050, L501.5200 #### [facility] [address] [place], [address] Performed By: #### L 500.2500 ####[facility] [address] [place], [address] Bedside Glucoseon 02-16-2025 FINGERSTICK GLU 191 mg/dL High 74-106 [facility] Comment on above: Result Comment: KURTIS GEMENT OF PATIENT CARE PER NURSING PROTOCOL Performed By: #### L 501.080 #### [facility] [address] [place], [address] Result Comment: KURTIS GEMENT OF PATIENT CARE PER NURSING PROTOCOL Performed By: #### L 501.080 ####[facility] [address] [place], [address] FINGERSTICK GLU 197 mg/dL High 74-106 [facility] Comment on above: Result Comment: KURTIS GEMENT OF PATIENT CARE PER NURSING PROTOCOL Performed By: #### L 501.080 #### [facility] [address] [place], [address] Result Comment: KURTIS GEMENT OF PATIENT CARE PER NURSING PROTOCOL Performed By: #### L 501.080 ####[facility] [address] [place], [address] FINGERSTICK GLU 174 mg/dL High 74-106 [facility] Comment on above: Result Comment: KURTIS GEMENT OF PATIENT CARE PER NURSING PROTOCOL Performed By: #### L 501.080 #### [facility] [address] [place], [address] Result Comment: KURTIS GEMENT OF PATIENT CARE PER NURSING PROTOCOL Performed By: #### L 501.080 ####[facility] [address] [place], [address] FINGERSTICK GLU 185 mg/dL High 74-106 [facility] Comment on above: Result Comment: KURTIS SMITH OF PATIENT CARE PER NURSING PROTOCOL Performed By: #### L 500.4050, L501.5200 #### [facility] [address] [place], [address] Result Comment: KUTRIS GEMENT OF PATIENT CARE PER NURSING PROTOCOL Performed By: #### L 501.080 ####[facility] [address] [place], [address] CBC W/Diff, Automatedon 02-05 Absolute Lymph 1.23 X10 3/uL Normal 0.83-4.51 [facility] Comment on above: Performed By: #### L 501.080 #### [facility] [address] [place], [address] Performed By: #### L 100.0100 ####[facility] [address] [place], [address] Absolute Neut 6.2 X10 3/uL Normal 2.0-7.7 [facility] Comment on above: Performed By: #### L 501.080 #### [facility] [address] [place], [address] Performed By: #### L 100.0100 ####[facility] [address] [place], [address] Basophils/100 WBC (Bld) 0.5 % Normal 0-1 [facility] Comment on above: Performed By: #### L 501.080 #### [facility] [address] [place], [address] Performed By: #### L 100.0100 ####[facility] [address] [place], [address] Eosinophils/100 WBC (Bld) 6.4 % High 0-5 [facility] Comment on above: Performed By: #### L 501.080 #### [facility] [address] [place], [address] Performed By: #### L 100.0100 ####[facility] [address] [place], [address] Erythrocyte distribution width (RBC) [Ratio] 13.1 % Normal 11.6-14.6 [facility] Comment on above: Performed By: #### L 501.080 #### [facility] [address] [place], [address] Performed By: #### L 100.0100 ####[facility] [address] [place], [address] Hematocrit (Bld) [Volume fraction] 31.5 % Low 40-54 [facility] Comment on above: Performed By: #### L 501.080 #### [facility] [address] [place], [address] Performed By: #### L 100.0100 ####[facility] [address] [place], [address] Hemoglobin (Bld) [Mass/Vol] 10.9 g/dL Low 13.0-16.5 [facility] Comment on above: Performed By: #### L 501.080 #### [facility] [address] [place], [address] Performed By: #### L 100.0100 ####[facility] [address] [place], [address] IG% 0.300 Normal 0.0-0.9 [facility] Comment on above: Result Comment: IG% - Immature Granulocytes (promyelocytes, myelocytes and metamyelocytes) > 1% indicates that a LEFT SHIFT is Present. Performed By: #### L 501.080 #### [facility] [address] [place], [address] Result Comment: IG% - Immature Granulocytes (promyelocytes, myelocytes andmetamyelocytes) > 1% indicates that a LEFT SHIFT is Present. Performed By: #### L 100.0100 ####[facility] [address] [place], [address] Lymphocytes/100 WBC (Bld) 13.4 % Low 19-41 [facility] Comment on above: Performed By: #### L 501.080 #### [facility] [address] [place], [address] Performed By: #### L 100.0100 ####[facility] [address] [place], [address] MCH (RBC) [Entitic mass] 30.3 pg Normal 27.0-32.0 [facility] Comment on above: Performed By: #### L 501.080 #### [facility] [address] [place], [address] Performed By: #### L 100.0100 ####[facility] [address] [place], [address] MCHC (RBC) [Mass/Vol] 34.6 g/dL Normal 32-36 [facility] Comment on above: Performed By: #### L 501.080 #### [facility] [address] [place], [address] Performed By: #### L 100.0100 ####[facility] [address] [place], [address] MCV (RBC) [Entitic vol] 87.5 fL Normal 80-94 [facility] Comment on above: Performed By: #### L 501.080 #### [facility] [address] [place], [address] Performed By: #### L 100.0100 ####[facility] [address] [place], [address] Monocytes/100 WBC (Bld) 12.2 % High 0-10 [facility] Comment on above: Performed By: #### L 501.080 #### [facility] [address] [place], [address] Performed By: #### L 100.0100 ####[facility] [address] [place], [address] Neutrophils/100 WBC (Bld) 67.2 % Normal 47-70 [facility] Comment on above: Performed By: #### L 501.080 #### [facility] [address] [place], [address] Performed By: #### L 100.0100 ####[facility] [address] [place], [address] Nucleated RBC (Bld) [#/Vol] 0 10*3/uL Normal 0-5 [facility] Comment on above: Performed By: #### L 501.080 #### [facility] [address] [place], [address] Performed By: #### L 100.0100 ####[facility] [address] [place], [address] Platelet mean volume (Bld) [Entitic vol] 10.1 fL Normal 6.2-12.0 [facility] Comment on above: Performed By: #### L 501.080 #### [facility] [address] [place], [address] Performed By: #### L 100.0100 ####[facility] [address] [place], [address] Platelets (Bld) [#/Vol] 196 10*3/uL Normal 150-450 [facility] Comment on above: Performed By: #### L 501.080 #### [facility] [address] [place], [address] Performed By: #### L 100.0100 ####[facility] [address] [place], [address] RBC (Bld) [#/Vol] 3.60 10*6/uL Low 4.6-6.2 [facility] Comment on above: Performed By: #### L 501.080 #### [facility] [address] [place], [address] Performed By: #### L 100.0100 ####[facility] [address] [place], [address] RDW SD 42.3 fl Normal 35.1-43.9 [facility] Comment on above: Performed By: #### L 501.080 #### [facility] [address] [place], [address] Performed By: #### L 100.0100 ####[facility] [address] [place], [address] WBC (Bld) [#/Vol] 9.2 10*3/uL Normal 4.4-11.0 [facility] Comment on above: Performed By: #### L 501.080 #### [facility] [address] [place], [address] Performed By: #### L 100.0100 ####[facility] [address] [place], [address] Cardiac Cath Diagnosticon Cardiac Cath Diagnostic [facility] Imaging Services [address] [place] [address] Cardiac Cath Diagnostic MR#: [id number] Acct: [id number] Name: SAM VIDALES Rep #: [id number] : 1950 74 From: Rah Mary MD PCP: [facility] Status:ADM IN Patient Name: SAM VIDALES Study Date: 02/16/2025 Performing: Rah Mary MD Ht: 70 inches 177.8 cm : 1950 Wt: 171.5 lbs 77.7 kg Age: 74 Gender: male BSA: 1.95 PROCEDURE(S) PERFORMED DC04-(10075)LHC/COR/CA BG CLINICAL PROFILE AND INDICATIONS Indications: Other Heart Failure: NYHA Class: 3, Newly Diagnosed: Yes, Heart Failure Type: Diastolic Stress/Imaging Stress/Image Study Performed: No CAD Presentations: Other: SOB CONCLUSIONS Coronary artery disease status post coronary bypass surgery with patent grafts noted. RECOMMENDATIONS Consideration for high risk TAVR. Will need to discuss at outpatient with the electrician substation as well. DESCRIPTION OF PROCEDURE The patient arrived to the procedure lab. The risks and benefits of the procedure as well as a full description of our services here and current unavailability of surgical backup were fully explained to the patient and/or their significant other prior to the catheterization. The Timeout was completed, verifying the correct patient and procedure. The patient's procedural site was prepped and draped in the usual fashion. Local anesthetic was given subcutaneously to left radial region with Lidocaine 2%. Local anesthetic was given subcutaneously to right groin region with Lidocaine 2%. Using a modified Seldinger technique, arterial access was obtained via the left radial artery, a 6Fr sheath was inserted., arterial access was obtained via the right femoral artery, a 5Fr sheath was inserted. Left internal mammary artery graft to the LAD that feeds in to the Free Gwen-selective angiography was performed in multiple views using a 5 Fr. IM catheter. Left Coronary Artery selective angiography was performed in multiple views using a 5 Fr. JL4 catheter. Saphenous Vein graft to the RPL selective angiography was performed in multiple views using a 5 Fr. AR MOD catheter. Saphenous Vein graft to the OM 2 selective angiography was performed in multiple views using a 5 Fr. AR MOD catheter.The arterial sheath was pulled and manual compression applied until hemostasis is achieved.. The arterial sheath was pulled and a TR Band was applied for hemostasis w/ 10ml air CORONARY ANGIOGRAPHY DOMINANCE: Right Dominant LEFT HEART ASSESSMENT Left Ventricular Ejection Fraction: by LV Gram 60 % Normal LV wall motion Normal Left Ventricular systolic function LEFT MAIN: Angiographically normal LEFT ANTERIOR DESCENDING ARTERY: Severely diseased vessel and subtotally occluded in the midsegment. CIRCUMFLEX ARTERY: Nondominant medium size vessel with 1st and 2nd obtuse marginal branch is occluded in the third obtuse marginal branch and a posterolateral branch with mild to moderate disease noted with the AV groove branch being moderately diseased. RIGHT CORONARY ARTERY: PROX RCA: is occluded GRAFTS: FLORES graft to the Mid LAD is patent GWEN graft to the Obtuse marginal branch is patent. This vessel comes off the FLORES graft. Saphenous Vein graft to the RPDA is patent Saphenous Vein graft to the 2nd OM is patent VALVE FINDINGS: Aortic Valve Stenosis - severe COMPLICATIONS No Complications PROCEDURE MEDICATIONS Versed 1 mg IV Fentanyl 50 mcg IV Fentanyl 50 mcg IV Oxygen: 2 L/min via nasal cannula Aspirin (325mg) 1 Tabs PO @ 02/16/2025 08:19:51 Heparin given IA 02/16/2025 08:33:32 Nitro 100 mcg IA 02/16/2025 08:52:53 Verapamil 2.5mg, 3000 units of Heparin given IA 02/16/2025 08:33:32 SUMMARY OF HEMODYNAMIC DATA Time AIR REST ECG 08:17:11 AO 170/56 (100) SA 08:40:21 AO 141/63 (97) 08:41:34 Signed By Rah Mary MD On 02/16/2025 12:42:35 Rah Mary MD 02/16/25 1243 Date Rah Mary MD Cosigner Signature: Date (if indicated) CC: Dr. Rah Mary MD; Dr. Lana Menjivar MD; [facility] Date Dictated: 02/16/25826 Date Transcribed: 02/16/25 1242 Chlorobutadiene Scrubber Operator: CO Signed Normal [facility] Cardiac Cath Diagnostic Normal [facility] Cardiac catheterization repo rtOrdered By: Rah Mary on 02-16-2025 Cardiac catheterization study [facility] Imaging Services [address] [place] [address] Cardiac Cath Diagnostic MR#: [id number] Acct: [id number] Name: SAM VIDALES Rep #:[id number] : 1950 74 From: Rah Mary MD PCP: [facility] Status:ADM IN Patient Name: SAM VIDALES Study Date: 02/16/2025 Performing: Rah Mary MD Ht: 70 inches 177.8 cm : 1950 Wt: 171.5 lbs 77.7 kg Age: 74 Gender: male BSA: 1.95 PROCEDURE(S) PERFORMED DC04-(78704)LHC/COR/CA BG CLINICAL PROFILE AND INDICATIONS Indications: Other Heart Failure: NYHA Class: 3, Newly Diagnosed: Yes, Heart Failure Type: Diastolic Stress/Imaging Stress/Image Study Performed: No CAD Presentations: Other: SOB CONCLUSIONS Coronary artery disease status post coronary bypass surgery with patent grafts noted. RECOMMENDATIONS Consideration for high risk TAVR. Will need to discuss at outpatient with the electrician substation as well. DESCRIPTION OF PROCEDURE The patient arrived to the procedure lab. The risks and benefits of the procedure as well as a full description of our services here and current unavailability of surgical backup were fully explained to the patient and/or their significant other prior to the catheterization. The Timeout was completed, verifying the correct patient and procedure. The patient's procedural site was prepped and draped in the usual fashion. Local anesthetic was given subcutaneously to left radial region with Lidocaine 2%. Local anesthetic was given subcutaneously to right groin region with Lidocaine 2%. Using a modified Seldinger technique, arterial access was obtained via the left radial artery, a 6Fr sheath was inserted., arterial access was obtained via the right femoral artery, a 5Fr sheath was inserted. Left internal mammary artery graft to the LAD that feeds in to the Free Gwen-selective angiography was performed in multiple views using a 5 Fr. IM catheter. Left Coronary Artery selective angiography was performed in multiple views using a 5 Fr. JL4 catheter. Saphenous Vein graft to the RPL selective angiography was performed in multiple views using a 5 Fr. AR MOD catheter. Saphenous Vein graft to the OM 2 selective angiography was performed in multiple views using a 5 Fr. AR MOD catheter.The arterial sheath was pulled and manual compression applied until hemostasis is achieved.. The arterial sheath was pulled and a TR Band was applied for hemostasis w/ 10ml air CORONARY ANGIOGRAPHY DOMINANCE: Right Dominant LEFT HEART ASSESSMENT Left Ventricular Ejection Fraction: by LV Gram 60 % Normal LV wall motion Normal Left Ventricular systolic function LEFT MAIN: Angiographically normal LEFT ANTERIOR DESCENDING ARTERY: Severely diseased vessel and subtotally occluded in the midsegment. CIRCUMFLEX ARTERY: Nondominant medium size vessel with 1st and 2nd obtuse marginal branch is occluded in the third obtuse marginal branch and a posterolateral branch with mild to moderate disease noted with the AV groove branch being moderately diseased. RIGHT CORONARY ARTERY: PROX RCA: is occluded GRAFTS: FLORES graft to the Mid LAD is patent GWEN graft to the Obtuse marginal branch is patent. This vessel comes off the FLORES graft. Saphenous Vein graft to the RPDA is patent Saphenous Vein graft to the 2nd OM is patent VALVE FINDINGS: Aortic Valve Stenosis - severe COMPLICATIONS No Complications PROCEDURE MEDICATIONS Versed 1 mg IV Fentanyl 50 mcg IV Fentanyl 50 mcg IV Oxygen: 2 L/min via nasal cannula Aspirin (325mg) 1 Tabs PO @ 02/16/2025 08:19:51 Heparin given IA 02/16/2025 08:33:32 Nitro 100 mcg IA 02/16/2025 08:52:53 Verapamil 2.5mg, 3000 units of Heparin given IA 02/16/2025 08:33:32 SUMMARY OF HEMODYNAMIC DATA Time AIR REST ECG 08:17:11 AO 170/56 (100) SA 08:40:21 AO 141/63 (97) 08:41:34 Signed By Rah Mary MD On 02/16/2025 12:42:35 Rah Mary MD 02/16/25 1243 Date _ Rah Mary MD Cosigner Signature: Date (if indicated) CC: Dr. Rah Mary MD; Dr. Lana Menjivar MD; [facility] Date Dictated: 02/16/25826 Date Transcribed: 02/16/251241 Chlorobutadiene Scrubber Operator: CO Signed [facility] Work Phone: Serum or plasma vancomycin m easurement (mass/volume)Ordered By: Lana Menjivar on 02-16-2025 Vancomycin [Mass/Vol] 28.1 ug/mL High 0.0-15.0 [facility] Comment on above: VANCOMYCIN STANDARD DRUG THERAPY: CRITICAL VALUE IS > 15.0 mg/L VANCOMYCIN HIGH INTENSITY THERAPY: CRITICAL VALUE IS > 20.0 mg/L PLEASE CONTACT PHARMACY SERVICES (#[id number]) FOR INTERPRETATIONOF RESULTS. THIS RESULT DOES NOT REPRESENT A PEAK OR TROUGHLEVEL FOR THIS DRUG. Vancomycin, Random Levelon 0 02-16-2025 VANCO, RANDOM 28.1 ug/mL High 0.0-15.0 [facility] Comment on above: Result Comment: VANC OMYCIN STANDARD DRUG THERAPY: CRITICAL VALUE IS > 15.0 mg/L VANCOMYCIN HIGH INTENSITY THERAPY: CRITICAL VALUE IS > 20.0 mg/L PLEASE CONTACT PHARMACY SERVICES (#[id number]) FOR INTERPRETATION OF RESULTS. THIS RESULT DOES NOT REPRESENT A PEAK OR TROUGH LEVEL FOR THIS DRUG. Performed By: #### L 501.080 #### [facility] Laboratory [facility] [place], [address] Result Comment: VANC OMYCIN STANDARD DRUG THERAPY: CRITICAL VALUE IS > 15.0 mg/LVANCOMYCIN HIGH INTENSITY THERAPY: CRITICAL VALUE IS > 20.0 mg/LPLEASE CONTACT PHARMACY SERVICES (#[id number]) FOR INTERPRETATIONOF RESULTS. THIS RESULT DOES NOT REPRESENT A PEAK OR TROUGHLEVEL FOR THIS DRUG. Performed By: #### L 501.8850 ####[facility] [address] [place], [address] Basic Metabolic Profile (BMP )on 02-15-2025 BUN/CRE 17.1 RATIO Normal 10-20 [facility] Comment on above: Performed By: #### L 9000.0800 #### [facility] [address] [place], [address] Performed By: #### L 500.2500 ####[facility] [address] [place], [address] Calcium [Mass/Vol] 8.9 mg/dL Normal 7.6-11.0 [facility] Comment on above: Performed By: #### L 9000.0800 #### [facility] [address] [place], [address] Performed By: #### L 500.2500 ####[facility] [address] [place], [address] Chloride [Moles/Vol] 99 mmol/L Normal 98-108 [facility] Comment on above: Performed By: #### L 9000.0800 #### [facility] [address] [place], [address] Performed By: #### L 500.2500 ####[facility] [address] [place], [address] CO2 [Moles/Vol] 17.1 mmol/L Low 21.0-32.0 [facility] Comment on above: Performed By: #### L 9000.0800 #### [facility] [address] [place], [address] Performed By: #### L 500.2500 ####[facility] [address] [place], [address] Creatinine [Mass/Vol] 4.18 mg/dL High 0.70-1.20 [facility] Comment on above: Performed By: #### L 9000.0800 #### [facility] [address] [place], [address] Performed By: #### L 500.2500 ####[facility] [address] [place], [address] ECRCL 15.77 ml/min Low 50-250 [facility] Comment on above: Performed By: #### L 9000.0800 #### [facility] [address] [place], [address] Performed By: #### L 500.2500 ####[facility] [address] [place], [address] GAP 24 High 5-15 [facility] Comment on above: Performed By: #### L 9000.0800 #### [facility] [address] [place], [address] Performed By: #### L 500.2500 ####[facility] [address] [place], [address] GFR/1.73 sq M.predicted among non-blacks MDRD (S/P/Bld) [Vol rate/Area] 14 mL/min/{1.73_m2} Low >60 [facility] Comment on above: Result Comment: mL/m in/1.73m2 CKD-EPI Creatinine Equation (2020) Performed By: #### L 9000.0800 #### [facility] [address] [place], [address] Result Comment: mL/m in/1.73m2 CKD-EPI Creatinine Equation (2020) Performed By: #### L 500.2500 ####[facility] [address] [place], [address] Glucose [Mass/Vol] 189 mg/dL High 70-99 [facility] Comment on above: Performed By: #### L 9000.0800 #### [facility] [address] [place], [address] Performed By: #### L 500.2500 ####[facility] [address] [place], [address] Potassium [Moles/Vol] 3.9 mmol/L Normal 3.3-5.1 [facility] Comment on above: Performed By: #### L 9000.0800 #### [facility] [address] [place], [address] Performed By: #### L 500.2500 ####[facility] [address] [place], [address] Sodium [Moles/Vol] 140 mmol/L Normal 133-145 [facility] Comment on above: Performed By: #### L 9000.0800 #### [facility] [address] [place], [address] Performed By: #### L 500.2500 ####[facility] [address] [place], [address] Urea nitrogen [Mass/Vol] 71 mg/dL High 4-19 [facility] Comment on above: Performed By: #### L 9000.0800 #### [facility] [address] [place], [address] Performed By: #### L 500.2500 ####[facility] [address] [place], [address] Bedside Glucoseon 02-15-2025 FINGERSTICK GLU 172 mg/dL High 74-106 [facility] Comment on above: Result Comment: KURTIS GEMENT OF PATIENT CARE PER NURSING PROTOCOL Performed By: #### L 501.080 #### [facility] [address] [place], [address] Result Comment: KURTIS GEMENT OF PATIENT CARE PER NURSING PROTOCOL Performed By: #### L 501.080 ####[facility] [address] [place], [address] FINGERSTICK GLU 190 mg/dL High 74-106 [facility] Comment on above: Result Comment: KURTIS GEMENT OF PATIENT CARE PER NURSING PROTOCOL Performed By: #### L 9000.0800 #### [facility] [address] [place], [address] Result Comment: KURTIS GEMENT OF PATIENT CARE PER NURSING PROTOCOL Performed By: #### L 501.080 ####[facility] [address] [place], [address] FINGERSTICK GLU 152 mg/dL High 74-106 [facility] Comment on above: Result Comment: KURTIS GEMENT OF PATIENT CARE PER NURSING PROTOCOL Performed By: #### L 9000.0800 #### [facility] [address] [place], [address] Result Comment: KURTIS GEMENT OF PATIENT CARE PER NURSING PROTOCOL Performed By: #### L 501.080 ####[facility] [address] [place], [address] FINGERSTICK GLU 167 mg/dL High 74-106 [facility] Comment on above: Result Comment: KURTIS GEMENT OF PATIENT CARE PER NURSING PROTOCOL Performed By: #### L 500.4050, L501.5200 #### [facility] [address] [place], [address] Result Comment: KURTIS GEMENT OF PATIENT CARE PER NURSING PROTOCOL Performed By: #### L 501.080 ####[facility] [address] [place], [address] CBC W/Diff, Automatedon 02-05 Absolute Lymph 0.82 X10 3/uL Low 0.83-4.51 [facility] Comment on above: Performed By: #### L 9000.0800 #### [facility] [address] [place], [address] Performed By: #### L 100.0100 ####[facility] [address] [place], [address] Absolute Neut 9.5 X10 3/uL High 2.0-7.7 [facility] Comment on above: Performed By: #### L 9000.0800 #### [facility] [address] [place], [address] Performed By: #### L 100.0100 ####[facility] [address] [place], [address] Basophils/100 WBC (Bld) 0.3 % Normal 0-1 [facility] Comment on above: Performed By: #### L 9000.0800 #### [facility] [address] [place], [address] Performed By: #### L 100.0100 ####[facility] [address] [place], [address] Eosinophils/100 WBC (Bld) 2.1 % Normal 0-5 [facility] Comment on above: Performed By: #### L 9000.0800 #### [facility] [address] [place], [address] Performed By: #### L 100.0100 ####[facility] [address] [place], [address] Erythrocyte distribution width (RBC) [Ratio] 13.1 % Normal 11.6-14.6 [facility] Comment on above: Performed By: #### L 9000.0800 #### [facility] [address] [place], [address] Performed By: #### L 100.0100 ####[facility] [address] [place], [address] Hematocrit (Bld) [Volume fraction] 34.5 % Low 40-54 [facility] Comment on above: Performed By: #### L 9000.0800 #### [facility] [address] [place], [address] Performed By: #### L 100.0100 ####[facility] [address] [place], [address] Hemoglobin (Bld) [Mass/Vol] 12.1 g/dL Low 13.0-16.5 [facility] Comment on above: Performed By: #### L 9000.0800 #### [facility] [address] [place], [address] Performed By: #### L 100.0100 ####[facility] [address], [address] IG% 0.500 Normal 0.0-0.9 [facility] Comment on above: Result Comment: IG% - Immature Granulocytes (promyelocytes, myelocytes and metamyelocytes) > 1% indicates that a LEFT SHIFT is Present. Performed By: #### L 9000.0800 #### [facility] [address], [address] Result Comment: IG% - Immature Granulocytes (promyelocytes, myelocytes andmetamyelocytes) > 1% indicates that a LEFT SHIFT is Present. Performed By: #### L 100.0100 ####[facility] [address] [place], [address] Lymphocytes/100 WBC (Bld) 6.8 % Low 19-41 [facility] Comment on above: Performed By: #### L 9000.0800 #### [facility] [address] [place], [address] Performed By: #### L 100.0100 ####[facility] [address] [place], [address] MCH (RBC) [Entitic mass] 30.6 pg Normal 27.0-32.0 [facility] Comment on above: Performed By: #### L 9000.0800 #### [facility] [address] [place], [address] Performed By: #### L 100.0100 ####[facility] [address] [place], [address] MCHC (RBC) [Mass/Vol] 35.1 g/dL Normal 32-36 [facility] Comment on above: Performed By: #### L 9000.0800 #### [facility] [address] [place], [address] Performed By: #### L 100.0100 ####[facility] [address] [place], [address] MCV (RBC) [Entitic vol] 87.1 fL Normal 80-94 [facility] Comment on above: Performed By: #### L 9000.0800 #### [facility] [address] [place], [address] Performed By: #### L 100.0100 ####[facility] [address] [place], [address] Monocytes/100 WBC (Bld) 10.9 % High 0-10 [facility] Comment on above: Performed By: #### L 9000.0800 #### [facility] [address] [place], [address] Performed By: #### L 100.0100 ####[facility] [address] [place], [address] Neutrophils/100 WBC (Bld) 79.4 % High 47-70 [facility] Comment on above: Performed By: #### L 9000.0800 #### [facility] [address] [place], [address] Performed By: #### L 100.0100 ####[facility] [address] [place], [address] Nucleated RBC (Bld) [#/Vol] 0 10*3/uL Normal 0-5 [facility] Comment on above: Performed By: #### L 9000.0800 #### [facility] [address] [place], [address] Performed By: #### L 100.0100 ####[facility] [address] [place], [address] Platelet mean volume (Bld) [Entitic vol] 10.2 fL Normal 6.2-12.0 [facility] Comment on above: Performed By: #### L 9000.0800 #### [facility] [address] [place], [address] Performed By: #### L 100.0100 ####[facility] [address] [place], [address] Platelets (Bld) [#/Vol] 180 10*3/uL Normal 150-450 [facility] Comment on above: Performed By: #### L 9000.0800 #### [facility] [address] [place], [address] Performed By: #### L 100.0100 ####[facility] [address] [place], [address] RBC (Bld) [#/Vol] 3.96 10*6/uL Low 4.6-6.2 [facility] Comment on above: Performed By: #### L 9000.0800 #### [facility] [address] [place], [address] Performed By: #### L 100.0100 ####[facility] [address] [place], [address] RDW SD 41.1 fl Normal 35.1-43.9 [facility] Comment on above: Performed By: #### L 9000.0800 #### [facility] [address] [place], [address] Performed By: #### L 100.0100 ####[facility] [address] [place], [address] WBC (Bld) [#/Vol] 12.0 10*3/uL High 4.4-11.0 [facility] Comment on above: Performed By: #### L 9000.0800 #### [facility] [address] [place], [address] Performed By: #### L 100.0100 ####[facility] [address] [place], [address] Consultation - Nephrologyon 02-15-2025 Consultation - Nephrology [facility] Medical Records Department [address] [address] Consultation - Nephrology 02/15/25 1027 MR#: [id number] Acct: [id number] Name: SAM VIDALES Rep #: [id number] : 1950 74 From: Sunshine Nesbitt MD PCP: [facility] Status:ADM IN Location: ICU ICU01-1 Assessment Plan Assessment/Plan (1) JUAN (acute kidney injury): PLAN: Appears to have CKD stage IV. As per admission records, creatinine was 2.8 in July. Reviewed in [facility], she had a creatinine of 2.3 in 2022. Prior to that his creatinine was 1.6 in 2021. Admission creatinine around 3.3, progressively worsening. Aggressively diuresed, likely cardiorenal physiology. Etiology of acute renal failure is likely cardiorenal syndrome. Urine analysis shows protein and some RBC, we will try to get old records from [facility] about baseline status. Diuretics have been cut back. Clinically looks good, volume status looks better. Still on some oxygen but overall breathing is much better. Continue to monitor for renal recovery at this time. Renal ultrasound result pending, no obvious hydronephrosis on imaging review. Medication list reviewed, he is on amlodipine and midodrine. Can stop both of these in excess. Will discuss with hospitalist HPI Consult Data Date of Consult: 02/15/25 HPI Narrative Reason for Consultation: Acute renal failure HPI Narrative: SAM VIDALES, is a 74 M who presents to the hospital with shortness of breath. Nephrology on consultation in view of acute renal failure. He gets most of his care through the [facility]. It seems he has history of CKD stage IV, as per admission records, creatinine was 2.8 in July 2024. Was found to have pulmonary edema on admission, was aggressively diuresed, he is significantly net negative since admission. Self extubated this morning. Currently alert, awake, looks comfortable. Overnight he spiked some fevers, started on antibiotic coverage. Nephrology on consultation in view of worsening renal failure. Creatinine today more than 4. Good urine output, denies any obstructive symptoms. Overall breathing is better than before, not completely normal yet. Does not use any oxygen at home. No new medications according to him. Denies taking any ycaf-dtx-dorihtv supplements. [facility] Medical History Former tobacco use Valvular heart disease CKD (chronic kidney disease), stage IV HLD (hyperlipidemia) HTN (hypertension) CAD (coronary artery disease) Medical History unable to obtain Home Medications ???Medication ???Instructions ???Recorded ???Last Taken ???Type atorvastatin 40 mg tablet (Lipitor) 40 mg PO DAILY Hyperlipidemia 0 02/13/25 Unknown History carvedilol 25 mg tablet 25 mg PO DAILY Hypertension Unknown History dulaglutide 0.75 mg/0.5 mL 0.75 mg subcut QWEEK TP2DM 5 Unknown History subcutaneous pen injector empagliflozin 25 mg tablet 25 mg PO DAILY T2DM 02/13/25 Unkno wn History ezetimibe 10 mg tablet 10 mg PO DAILY Hypertension Unknown History felodipine 10 mg tablet,extended 10 mg PO DAILY Hypertension Unknown History release 24 hr insulin glargine 100 unit/mL (3 28 unit subcut DAILY T2DM 02/13/25 Unknown History mL) subcutaneous pen (Basaglar KwikPen U-100 Insulin) isosorbide mononitrate 30 mg 30 mg PO DAILY For Heart 02/13/25 Unknown History tablet,extended release 24 hr minoxidil 2.5 mg tablet 5 mg PO BID Hypertension 02/13/25 Unknown History olopatadine 0.7 % eye drops 1 drp EACH EYE DAILY Allergic 04/01 Unknown History Conjuctivitis Allergy/AdvReac Type Severity Reaction Status Date / Time lisinopril AdvReac Mild Cough Verified 02/12/25 20:33 Family History (Updated 02/12/25 @ 20:[address] Vandana Bro MD) Sister Heart disease Hypertension Daughter Heart disease Hypertension Mother Heart disease Father Heart disease Family History unable to obtain Surgical History Hx of coronary artery bypass graft S/P laminectomy Surgical History unable to obtain Social History household members: spouse Smoking Status: Unknown if ever smoked how long ago did patient quit smoking: Quit 1997. alcohol intake: current alcohol intake frequency: holidays/special occasions only substance use type: does not use ROS ROS Narrative Negative except history Physical Exam Narrative Alert awake oriented x 3 no obvious distress no pallor no icterus no JVD s1s2 no murmurs lungs clear abdomen soft no organomegaly no edema no cyanosis Lab / Micro Data 02/15/25 05:20 02/15/25 08:40 Labs: Laboratory Results - last 24 hr 02/14/25 11:28: POC (more content not included)... Normal [facility] Consultation - Nephrology Normal [facility] Electrocardiogram reportOrde red By: Rah Mary on 02-15-2025 EKG study [facility] Cardiovascular Services [address] [place] [address] 12 Lead EKG 02/12/25 1846 MR#: [id number] Acct: [id number] Name: SAM VIDALES Rep #:[id number] : 1950 74 From: Rah Mary MD Attending Dr: Dr. Lana Menjivar MD Status: ADM IN Ordering Dr: Ayaz Hendrickson MD Date: 03/01 Location: ICU Sex: M C Admitted: 02/12/25 Test Reason : CHEST PAIN Blood Pressure : */* mmHG Vent. Rate : 78 BPM Atrial Rate : 78 BPM P-R Int : 252 ms QRS Dur : 94 ms QT Int : 414 ms P-R-T Axes : 66 -15 95 degrees QTcB Int : 471 ms Sinus rhythm with 1st degree A-V block Minimal voltage criteria for LVH, may be normal variant ( Sokolow-Jacob ) ST & T wave abnormality, consider lateral ischemia Abnormal ECG Confirmed by RAH MARY MD ([id number]), online editor JASS MCFARLAND ([id number]) on 02/15/2025 1:06:50 PM Referred By: EMEKA Confirmed By: RAH MARY MD 02/15/25 1306 Date _ Rah Mary MD CC: Dr. Ayaz Hendrickson MD; Dr. Lana Menjivar MD; [facility] ~ Signed [facility] Work Phone: Kidney and Bladderon 025 Kidney and Bladder [facility] Imaging Services [address] [place] [address] Kidney and Bladder MR#: [id number] Acct: [id number] Name: SAM VIDALES Rep #: [id number] : 1950 M 74 From: Ba neville MD PCP: [facility] Status: ADM IN Study: Kidney and Bladder Date of Exam: 02/15/25 Exam# [id number] Ordering Dr: Lana Menjivar MD PROCEDURE: KIDNEY AND BLADDER 02/15/2025 REASON FOR EXAM: JUAN TECHNIQUE: KIDNEY AND BLADDER COMPARISON: None FINDINGS: Kidneys: Normal renal sizes, parenchymal thicknesses, and echotextures. [place]: No evidence of hydronephrosis. Cysts or Masses: No cysts or large solid renal masses. Other: Increased echotexture of the renal cortices bilaterally suggestive of chronic medical renal disease. RIGHT Kidney Size: 11.1 cm x 4.9 cm x 5.7 cm Volume: 162.5 mL Cortical Thickness (if discernible): 16 mm (>6mm is normal) LEFT Kidney Size: 10.6 cm x 5.9 cm x 4.8 cm Volume: 155.2 mL Cortical Thickness (if discernible): 18 (>6mm is normal) Bladder is not visualized. A Zimmer catheter is in-situ. US/Kidney and Bladder IMPRESSION: No acute abnormality is seen. Increased echotexture of the renal cortices bilaterally suggestive of chronic renal disease. Reading Location: [place] [address] CC: Dr. Lana Menjivar MD; [facility] Chlorobutadiene Scrubber Operator: Signed Normal [facility] Kidney and Bladder Normal [facility] Vancomycin, Random Levelon 0 02-15-2025 VANCO, RANDOM 19.8 ug/mL High 0.0-15.0 [facility] Comment on above: Result Comment: VANC OMYCIN STANDARD DRUG THERAPY: CRITICAL VALUE IS > 15.0 mg/L VANCOMYCIN HIGH INTENSITY THERAPY: CRITICAL VALUE IS > 20.0 mg/L PLEASE CONTACT PHARMACY SERVICES (#[id number]) FOR INTERPRETATION OF RESULTS. THIS RESULT DOES NOT REPRESENT A PEAK OR TROUGH LEVEL FOR THIS DRUG. Performed By: #### L 9000.0800 #### [facility] [address] [place], [address] Result Comment: VANC OMYCIN STANDARD DRUG THERAPY: CRITICAL VALUE IS > 15.0 mg/LVANCOMYCIN HIGH INTENSITY THERAPY: CRITICAL VALUE IS > 20.0 mg/LPLEASE CONTACT PHARMACY SERVICES (#2508) FOR INTERPRETATIONOF RESULTS. THIS RESULT DOES NOT REPRESENT A PEAK OR TROUGHLEVEL FOR THIS DRUG. Performed By: #### L 501.8850 ####[facility] [address] [place], [address] Bedside Glucoseon 02-14-2025 FINGERSTICK GLU 163 mg/dL High 74-106 [facility] Comment on above: Result Comment: KURTIS GEMENT OF PATIENT CARE PER NURSING PROTOCOL Performed By: #### L 501.080 #### [facility] [address] [place], [address] Result Comment: KURTIS GEMENT OF PATIENT CARE PER NURSING PROTOCOL Performed By: #### L 501.080 ####[facility] [address] [place], [address] FINGERSTICK GLU 167 mg/dL High 74-106 [facility] Comment on above: Result Comment: KURTIS GEMENT OF PATIENT CARE PER NURSING PROTOCOL Performed By: #### L 501.080 #### [facility] [address] [facility] [address] Result Comment: KURTIS GEMENT OF PATIENT CARE PER NURSING PROTOCOL Performed By: #### L 501.080 ####[facility] [address] [place], [address] FINGERSTICK GLU 135 mg/dL High 74-106 [facility] Comment on above: Result Comment: KURTIS GEMENT OF PATIENT CARE PER NURSING PROTOCOL Performed By: #### L 501.080 #### [facility] [address] [facility] [address] Result Comment: KURTIS GEMENT OF PATIENT CARE PER NURSING PROTOCOL Performed By: #### L 501.080 ####[facility] [address] [place], [address] FINGERSTICK GLU 124 mg/dL High 74-106 [facility] Comment on above: Result Comment: KURTIS GEMENT OF PATIENT CARE PER NURSING PROTOCOL Performed By: #### L 9000.0800 #### [facility] [address] [place], [address] Result Comment: KURTIS GEMENT OF PATIENT CARE PER NURSING PROTOCOL Performed By: #### L 501.080 ####[facility] [address] [place], [address] FINGERSTICK GLU 126 mg/dL High 74-106 [facility] Comment on above: Result Comment: KURTIS GEMENT OF PATIENT CARE PER NURSING PROTOCOL Performed By: #### L 501.080 #### [facility] [address] [place], [address] Result Comment: KURTIS GEMENT OF PATIENT CARE PER NURSING PROTOCOL Performed By: #### L 501.080 ####[facility] [address] [place], [address] Bilirubin, totalOrdered By: Jan Yen on 02-14-2025 Bilirubin [Mass/Vol] 0.49 mg/dL 0.00-1.30 [facility] Blood cultureOrdered By: Estrella Menjivar on 02-14-2025 Bacteria identified Cx Nom (Bld) No growth in 5 days. [facility] CBC W/Diff, Automatedon 02-05 Absolute Lymph 1.20 X10 3/uL Normal 0.83-4.51 [facility] Comment on above: Performed By: #### L 500.4050, L501.5200 #### [facility] [address] [place], [address] Performed By: #### L 100.0100 ####[facility] [address] [place], [address] Absolute Neut 8.0 X10 3/uL High 2.0-7.7 [facility] Comment on above: Performed By: #### L 500.4050, L501.5200 #### [facility] [address] [place], [address] Performed By: #### L 100.0100 ####[facility] [address] [place], [address] Basophils/100 WBC (Bld) 0.6 % Normal 0-1 [facility] Comment on above: Performed By: #### L 500.4050, L501.5200 #### [facility] [address] [place], [address] Performed By: #### L 100.0100 ####[facility] [address] [place], [address] Eosinophils/100 WBC (Bld) 1.8 % Normal 0-5 [facility] Comment on above: Performed By: #### L 500.4050, L501.5200 #### [facility] [address] [place], [address] Performed By: #### L 100.0100 ####[facility] [address] [place], [address] Erythrocyte distribution width (RBC) [Ratio] 13.3 % Normal 11.6-14.6 [facility] Comment on above: Performed By: #### L 500.4050, L501.5200 #### [facility] [address] [place], [address] Performed By: #### L 100.0100 ####[facility] [address] [place], [address] Hematocrit (Bld) [Volume fraction] 30.8 % Low 40-54 [facility] Comment on above: Performed By: #### L 500.4050, L501.5200 #### [facility] [address] [place], [address] Performed By: #### L 100.0100 ####[facility] [address] [place], [address] Hemoglobin (Bld) [Mass/Vol] 10.6 g/dL Low 13.0-16.5 [facility] Comment on above: Performed By: #### L 500.4050, L501.5200 #### [facility] [address] [place], [address] Performed By: #### L 100.0100 ####[facility] [address] [place], [address] IG% 0.500 Normal 0.0-0.9 [facility] Comment on above: Result Comment: IG% - Immature Granulocytes (promyelocytes, myelocytes and metamyelocytes) > 1% indicates that a LEFT SHIFT is Present. Performed By: #### L 500.4050, L501.5200 #### [facility] [address] [place], [address] Result Comment: IG% - Immature Granulocytes (promyelocytes, myelocytes andmetamyelocytes) > 1% indicates that a LEFT SHIFT is Present. Performed By: #### L 100.0100 ####[facility] [address] [place], [address] Lymphocytes/100 WBC (Bld) 11.2 % Low 19-41 [facility] Comment on above: Performed By: #### L 500.4050, L501.5200 #### [facility] [address] [place], [address] Performed By: #### L 100.0100 ####[facility] [address] [place], [address] MCH (RBC) [Entitic mass] 30.3 pg Normal 27.0-32.0 [facility] Comment on above: Performed By: #### L 500.4050, L501.5200 #### [facility] [address] [place], [address] Performed By: #### L 100.0100 ####[facility] [address] [place], [address] MCHC (RBC) [Mass/Vol] 34.4 g/dL Normal 32-36 [facility] Comment on above: Performed By: #### L 500.4050, L501.5200 #### [facility] [address] [place], [address] Performed By: #### L 100.0100 ####[facility] [address] [place], [address] MCV (RBC) [Entitic vol] 88.0 fL Normal 80-94 [facility] Comment on above: Performed By: #### L 500.4050, L501.5200 #### [facility] [address] [place], [address] Performed By: #### L 100.0100 ####[facility] [address] [place], [address] Monocytes/100 WBC (Bld) 12.1 % High 0-10 [facility] Comment on above: Performed By: #### L 500.4050, L501.5200 #### [facility] [address] [place], [address] Performed By: #### L 100.0100 ####[facility] [address] [place], [address] Neutrophils/100 WBC (Bld) 73.8 % High 47-70 [facility] Comment on above: Performed By: #### L 500.4050, L501.5200 #### [facility] [address] [place], [address] Performed By: #### L 100.0100 ####[facility] [address] [place], [address] Nucleated RBC (Bld) [#/Vol] 0 10*3/uL Normal 0-5 [facility] Comment on above: Performed By: #### L 500.4050, L501.5200 #### [facility] [address] [place], [address] Performed By: #### L 100.0100 ####[facility] [address] [place], [address] Platelet mean volume (Bld) [Entitic vol] 10.4 fL Normal 6.2-12.0 [facility] Comment on above: Performed By: #### L 500.4050, L501.5200 #### [facility] [address] [place], [address] Performed By: #### L 100.0100 ####[facility] [address] [place], [address] Platelets (Bld) [#/Vol] 147 10*3/uL Low 150-450 [facility] Comment on above: Performed By: #### L 500.4050, L501.5200 #### [facility] [address] [place], [address] Performed By: #### L 100.0100 ####[facility] [address] [place], [address] RBC (Bld) [#/Vol] 3.50 10*6/uL Low 4.6-6.2 [facility] Comment on above: Performed By: #### L 500.4050, L501.5200 #### [facility] [address] [place], [address] Performed By: #### L 100.0100 ####[facility] [address] [place], [address] RDW SD 42.6 fl Normal 35.1-43.9 [facility] Comment on above: Performed By: #### L 500.4050, L501.5200 #### [facility] [address] [place], [address] Performed By: #### L 100.0100 ####[facility] [address] [place], [address] WBC (Bld) [#/Vol] 10.8 10*3/uL Normal 4.4-11.0 [facility] Comment on above: Performed By: #### L 500.4050, L501.5200 #### [facility] [address] [place], [address] Performed By: #### L 100.0100 ####[facility] [address] [place], [address] Comprehensive Metabolic Prof [facility] 02-14-2025 Albumin [Mass/Vol] 3.8 g/dL Normal 3.4-4.8 [facility] Comment on above: Performed By: #### L 500.4050, L501.5200 #### [facility] [address] [place], [address] Performed By: #### L 500.4050, L501.5200 ####[facility] [address] [place], [address] Albumin/Globulin [Mass ratio] 1.3 {ratio} Normal 0.9-2.4 [facility] Comment on above: Performed By: #### L 500.4050, L501.5200 #### [facility] [address] [place], [address] Performed By: #### L 500.4050, L501.5200 ####[facility] [address] [place], [address] ALK PHOS 94 U/L Normal 40-129 [facility] Comment on above: Performed By: #### L 500.4050, L501.5200 #### [facility] [address] [place], [address] Performed By: #### L 500.4050, L501.5200 ####[facility] [address] [place], [address] ALT [Catalytic activity/Vol] 47 U/L Normal <=46 [facility] Comment on above: Performed By: #### L 500.4050, L501.5200 #### [facility] [address] [place], [address] Performed By: #### L 500.4050, L501.5200 ####[facility] [address] [place], [address] AST [Catalytic activity/Vol] 20 U/L Normal <=37 [facility] Comment on above: Performed By: #### L 500.4050, L501.5200 #### [facility] [address] [place], [address] Performed By: #### L 500.4050, L501.5200 ####[facility] [address] [place], [address] Bilirubin [Mass/Vol] 0.49 mg/dL Normal 0.00-1.30 [facility] Comment on above: Performed By: #### L 500.4050, L501.5200 #### [facility] [address] [place], [address] Performed By: #### L 500.4050, L501.5200 ####[facility] [address] [place], [address] BUN/CRE 17.0 RATIO Normal 10-20 [facility] Comment on above: Performed By: #### L 500.4050, L501.5200 #### [facility] [address] [place], [address] Performed By: #### L 500.4050, L501.5200 ####[facility] [address] [place], [address] Calcium [Mass/Vol] 9.0 mg/dL Normal 7.6-11.0 [facility] Comment on above: Performed By: #### L 500.4050, L501.5200 #### [facility] [address] [place], [address] Performed By: #### L 500.4050, L501.5200 ####[facility] [address] [place], [address] Chloride [Moles/Vol] 102 mmol/L Normal 98-108 [facility] Comment on above: Performed By: #### L 500.4050, L501.5200 #### [facility] [address] [place], [address] Performed By: #### L 500.4050, L501.5200 ####[facility] [address] [place], [address] CO2 [Moles/Vol] 19.2 mmol/L Low 21.0-32.0 [facility] Comment on above: Performed By: #### L 500.4050, L501.5200 #### [facility] [address] [place], [address] Performed By: #### L 500.4050, L501.5200 ####[facility] [address] [place], [address] Creatinine [Mass/Vol] 3.87 mg/dL High 0.70-1.20 [facility] Comment on above: Performed By: #### L 500.4050, L501.5200 #### [facility] [address] [place], [address] Performed By: #### L 500.4050, L501.5200 ####[facility] [address] [place], [address] ECRCL 17.03 ml/min Low 50-250 [facility] Comment on above: Performed By: #### L 500.4050, L501.5200 #### [facility] [address] [place], [address] Performed By: #### L 500.4050, L501.5200 ####[facility] [address] [place], [address] GAP 18 High 5-15 [facility] Comment on above: Performed By: #### L 500.4050, L501.5200 #### [facility] [address] [place], [address] Performed By: #### L 500.4050, L501.5200 ####[facility] [address] [place], [address] GFR/1.73 sq M.predicted among non-blacks MDRD (S/P/Bld) [Vol rate/Area] 15 mL/min/{1.73_m2} Low >60 [facility] Comment on above: Result Comment: mL/m in/1.73m2 CKD-EPI Creatinine Equation (2020) Performed By: #### L 500.4050, L501.5200 #### [facility] [address] [place], [address] Result Comment: mL/m in/1.73m2 CKD-EPI Creatinine Equation (2020) Performed By: #### L 500.4050, L501.5200 ####[facility] [address] [place], [address] Globulin (S) [Mass/Vol] 2.9 g/dL Normal 2.2-4.2 [facility] Comment on above: Performed By: #### L 500.4050, L501.5200 #### [facility] [address] [place], [address] Performed By: #### L 500.4050, L501.5200 ####[facility] [address] [place], [address] Glucose [Mass/Vol] 133 mg/dL High 70-99 [facility] Comment on above: Performed By: #### L 500.4050, L501.5200 #### [facility] [address] [place], [address] Performed By: #### L 500.4050, L501.5200 ####[facility] [address] [place], [address] Potassium [Moles/Vol] 3.8 mmol/L Normal 3.3-5.1 [facility] Comment on above: Performed By: #### L 500.4050, L501.5200 #### [facility] [address] [place], [address] Performed By: #### L 500.4050, L501.5200 ####[facility] [address] [place], [address] Sodium [Moles/Vol] 139 mmol/L Normal 133-145 [facility] Comment on above: Performed By: #### L 500.4050, L501.5200 #### [facility] [address] [place], [address] Performed By: #### L 500.4050, L501.5200 ####[facility] [address] [place], [address] T PROT 6.7 g/dL Normal 5.9-8.4 [facility] Comment on above: Performed By: #### L 500.4050, L501.5200 #### [facility] [address] [place], [address] Performed By: #### L 500.4050, L501.5200 ####[facility] [address] [place], [address] Urea nitrogen [Mass/Vol] 66 mg/dL High 4-19 [facility] Comment on above: Performed By: #### L 500.4050, L501.5200 #### [facility] [address] [place], [address] Performed By: #### L 500.4050, L501.5200 ####[facility] [address] [place], [address] Consultation - Cardiologyon 02-14-2025 Consultation - Cardiology [facility] Medical Records Department [address] [place] [address] Consultation - Cardiology 02/14/25 1328 MR#: [id number] Acct: [id number] Name: SAM VIDALES Rep #: [id number] : 1950 74 From: Deanne Medley MD PCP: [facility] Status:ADM IN Location: ICU ICU01-1 Assessment Plan Assessment/Plan (1) History of diabetes mellitus: (2) Chronic kidney disease: (3) Hx of coronary artery bypass graft: (4) Congestive heart failure: (5) History of aortic stenosis: PLAN: Cardiac care plan; 74-year-old patient, with history of CAD status post CABG x 4 in 2017 That include FLORES to LAD, free GWEN graft to OM1 SVG to OM 2 and SVG to posterolateral branch. Recent evaluation by echocardiogram showed severe calcific aortic valve stenosis with a mean gradient of 64 mmHg and maximum gradient across the aortic valve is 95 mmHg. Limited the study was unable to measure the aortic valve area however significantly elevated gradient consistent with severe calcific aortic valve stenosis he had a history of aortic valve stenosis. Diabetes mellitus CKD History of hypertension. Presentation patient usually follows at the [facility] facility. According to him follow-up with the [facility] cardiology group as well as the [facility]. And he had symptoms of fatigue tiredness for the last couple of days And EMS was called and noted patient was hypoxemic with oxygen saturation of around 80% and he was very diaphoretic pale with respiratory failure patient intubated and was a started on IV Lasix and has been stable hemodynamically. I discussed cardiac care plan in detail which will include the following 1. Once stable patient will require left heart cath/possible to evaluate for progression of CAD As his CABG has been in 2017 ADILIA to complete evaluation and assess aortic valve. An discuss further, and referral for TAVR evaluation. Cardiology team will follow up this patient during this admission. Deanne Medley MD,[facility] watershed program manager HPI Consult Data Date of Consult: 02/14/25 HPI Narrative Reason for Consultation: CAD s/p CABG/pulm edema HPI Narrative: SAM VIDALES, is a 74 M who presents [facility] Medical History Former tobacco use Valvular heart disease CKD (chronic kidney disease), stage IV HLD (hyperlipidemia) HTN (hypertension) CAD (coronary artery disease) Medical History unable to obtain Home Medications ???Medication ???Instructions ???Recorded ???Last Taken ???Type atorvastatin 40 mg tablet (Lipitor) 40 mg PO DAILY Hyperlipidemia 0 02/13/25 Unknown History carvedilol 25 mg tablet 25 mg PO DAILY Hypertension Unknown History dulaglutide 0.75 mg/0.5 mL 0.75 mg subcut QWEEK TP2DM 5 Unknown History subcutaneous pen injector empagliflozin 25 mg tablet 25 mg PO DAILY T2DM 02/13/25 Unkno wn History ezetimibe 10 mg tablet 10 mg PO DAILY Hypertension Unknown History felodipine 10 mg tablet,extended 10 mg PO DAILY Hypertension Unknown History release 24 hr insulin glargine 100 unit/mL (3 28 unit subcut DAILY T2DM 02/13/25 Unknown History mL) subcutaneous pen (Basaglar KwikPen U-100 Insulin) isosorbide mononitrate 30 mg 30 mg PO DAILY For Heart 02/13/25 Unknown History tablet,extended release 24 hr minoxidil 2.5 mg tablet 5 mg PO BID Hypertension 02/13/25 Unknown History olopatadine 0.7 % eye drops 1 drp EACH EYE DAILY Allergic 04/01 Unknown History Conjuctivitis Allergy/AdvReac Type Severity Reaction Status Date / Time lisinopril AdvReac Mild Cough Verified 02/12/25 20:33 Family History (Updated 02/12/25 @ 20:[address] Vandana Bro MD) Sister Heart disease Hypertension Daughter Heart disease Hypertension Mother Heart disease Father Heart disease Family History unable to obtain Surgical History Hx of coronary artery bypass graft S/P laminectomy Surgical History unable to obtain Social History household members: spouse Smoking Status: Unknown if ever smoked how long ago did patient quit smoking: Quit 1997. alcohol intake: current alcohol intake frequency: holidays/special occasions only substance use type: does not use Physical Exam Cardio Cardio Narrative: Seen and evaluated at bedside patient intubated family were at bedside Cardiac rhythm sinus rhythm Cardiac exam S1-S2 is regular Systolic murmur well heard in the aortic valve area No diastolic murmur Chest exam diminished air entry bilateral with bilateral bilateral rales. Examination lower extremity no lower extremity edema. Risk Stratification Risk Stratification Applicable: No (more content not included)... Normal [facility] Consultation - Cardiology Normal [facility] Laboratory - Chemistry and C hemistry - challengeOrdered By: Jan Yen on 02-14-2025 AST [Catalytic activity/Vol] 20 U/L <38 [facility] Magnesiumon 02-14-2025 Magnesium [Mass/Vol] 2.8 mg/dL High 1.5-2.2 [facility] Comment on above: Performed By: #### L 500.4050, L501.5200 #### [facility] [address] [place], [place], [id number] Performed By: #### L 500.4050, L501.5200 ####[facility] [address] [place], [place], [id number] Magnesium measurement (mass/ volume)Ordered By: Jan Yen on 02-14-2025 Magnesium (Unsp spec) [Mass/Vol] 2.8 mg/dL High 1.5-2.2 [facility] No Panel InformationOrdered By: Jan Yen on 02-14-2025 20 U/L <38 [facility] Serum globulin measurementOr dered By: Jan Yen on 02-14-2025 Globulin (S) [Mass/Vol] 2.9 g/dL 2.2-4.2 [facility] Serum or plasma alanine nina otransferase (ALT) measurementOrdered By: Jan Yen on 02-14-2025 ALT [Catalytic activity/Vol] 47 U/L <47 [facility] Serum or plasma albumin tanya urement (mass/volume)Ordered By: Jan Yen on 02-14-2025 Albumin [Mass/Vol] 3.8 g/dL 3.4-4.8 [facility] Serum or plasma albumin/glob ulin mass ratioOrdered By: Jan Yen on 02-14-2025 Albumin/Globulin [Mass ratio] 1.3 {ratio} 0.9-2.4 [facility] Serum or plasma alkaline juan manuel sphatase measurementOrdered By: Jan Yen on 02-14-2025 ALP [Catalytic activity/Vol] 94 U/L 40-129 [facility] Total proteinOrdered By: Narciso Yen on 02-14-2025 Protein [Mass/Vol] 6.7 g/dL 5.9-8.4 [facility] Urea Nitrogen, Urineon 02-14 URINE UREA 201 mg/dL Normal NO RANGE EST. [facility] Comment on above: Performed By: #### L 501.080 #### [facility] [address] [place], [address] Performed By: #### L 502.0715, L501.5500 ####[facility] [address] [place], [address] Urine Sodiumon 02-14-2025 Sodium (U) [Moles/Vol] 91 mmol/L Normal Not Establ. [facility] Comment on above: Performed By: #### L 501.080 #### [facility] [address] [place], [address] Performed By: #### L 502.0715, L501.5500 ####[facility] [address] [place], [address] Urine sodium measurement (mo les/volume)Ordered By: Lana Menjivar on 02-14-2025 Sodium (U) [Moles/Vol] 91 mmol/L Not Establ. [facility] Bedside Glucoseon 02-13-2025 FINGERSTICK GLU 121 mg/dL High 74-106 [facility] Comment on above: Result Comment: KURTIS GEMENT OF PATIENT CARE PER NURSING PROTOCOL Performed By: #### L 500.4050, L501.5200 #### [facility] [address] [place], [address] Result Comment: KURTIS GEMENT OF PATIENT CARE PER NURSING PROTOCOL Performed By: #### L 501.080 ####[facility] [address] [place], [address] FINGERSTICK GLU 141 mg/dL High 74-106 [facility] Comment on above: Result Comment: KURTIS GEMENT OF PATIENT CARE PER NURSING PROTOCOL Performed By: #### L 501.080 #### [facility] [address] [place], [address] Result Comment: KURTIS GEMENT OF PATIENT CARE PER NURSING PROTOCOL Performed By: #### L 501.080 ####[facility] [address] [place], [address] FINGERSTICK GLU 124 mg/dL High 74-106 [facility] Comment on above: Result Comment: Dr Genevieve smart Followed MANAGEMENT OF PATIENT CARE PER NURSING PROTOCOL Performed By: #### L 9000.0800 #### [facility] [address] [place], [address] Result Comment: Dr Genevieve smart FollowedMANAGEMENT OF PATIENT CARE PER NURSING PROTOCOL Performed By: #### L 501.080 ####[facility] [address] [place], [address] FINGERSTICK GLU 110 mg/dL High 74-106 [facility] Comment on above: Result Comment: KURTIS GEMENT OF PATIENT CARE PER NURSING PROTOCOL Performed By: #### L 501.080 #### [facility] [address] [place], [address] Result Comment: KURTIS GEMENT OF PATIENT CARE PER NURSING PROTOCOL Performed By: #### L 501.080 ####[facility] [address] [place], [address] FINGERSTICK GLU 115 mg/dL High 74-106 [facility] Comment on above: Result Comment: KURTIS GEMENT OF PATIENT CARE PER NURSING PROTOCOL Performed By: #### L 500.4050, L501.5200 #### [facility] [address] [place], [address] Result Comment: KURTIS GEMENT OF PATIENT CARE PER NURSING PROTOCOL Performed By: #### L 501.080 ####[facility] [address] [place], [address] CBC W/Diff, Automatedon 08-0 9-2024 Absolute Lymph 0.93 X10 3/uL Normal 0.83-4.51 [facility] Comment on above: Performed By: #### L 500.4050, L501.5200 #### [facility] [address] [place], [address] Performed By: #### L 501.3620, L500.4100, L500.4050, L100.0100, L501.9520 ####[facility] [address] [place], [address] Absolute Neut 5.3 X10 3/uL Normal 2.0-7.7 [facility] Comment on above: Performed By: #### L 500.4050, L501.5200 #### [facility] [address] [place], [address] Performed By: #### L 501.3620, L500.4100, L500.4050, L100.0100, L501.9520 ####[facility] [address] [place], [address] Basophils/100 WBC (Bld) 0.6 % Normal 0-1 [facility] Comment on above: Performed By: #### L 500.4050, L501.5200 #### [facility] [address] [place], [address] Performed By: #### L 501.3620, L500.4100, L500.4050, L100.0100, L501.9520 ####[facility] [address] [place], [address] Eosinophils/100 WBC (Bld) 0.6 % Normal 0-5 [facility] Comment on above: Performed By: #### L 500.4050, L501.5200 #### [facility] [address] [place], [address] Performed By: #### L 501.3620, L500.4100, L500.4050, L100.0100, L501.9520 ####[facility] [address] [place], [address] Erythrocyte distribution width (RBC) [Ratio] 13.2 % Normal 11.6-14.6 [facility] Comment on above: Performed By: #### L 500.4050, L501.5200 #### [facility] [address] [place], [address] Performed By: #### L 501.3620, L500.4100, L500.4050, L100.0100, L501.9520 ####[facility] [address] [place], [address] Hematocrit (Bld) [Volume fraction] 28.6 % Low 40-54 [facility] Comment on above: Performed By: #### L 500.4050, L501.5200 #### [facility] [address] [place], [address] Performed By: #### L 501.3620, L500.4100, L500.4050, L100.0100, L501.9520 ####[facility] [address] [place], [address] Hemoglobin (Bld) [Mass/Vol] 9.6 g/dL Low 13.0-16.5 [facility] Comment on above: Performed By: #### L 500.4050, L501.5200 #### [facility] [address] [place], [address] Performed By: #### L 501.3620, L500.4100, L500.4050, L100.0100, L501.9520 ####[facility] [address] [place], [address] IG% 0.600 Normal 0.0-0.9 [facility] Comment on above: Result Comment: IG% - Immature Granulocytes (promyelocytes, myelocytes and metamyelocytes) > 1% indicates that a LEFT SHIFT is Present. Performed By: #### L 500.4050, L501.5200 #### [facility] [address] [place], [address] Result Comment: IG% - Immature Granulocytes (promyelocytes, myelocytes andmetamyelocytes) > 1% indicates that a LEFT SHIFT is Present. Performed By: #### L 501.3620, L500.4100, L500.4050, L100.0100, L501.9520 ####[facility] [address] [place], [address] Lymphocytes/100 WBC (Bld) 12.8 % Low 19-41 [facility] Comment on above: Performed By: #### L 500.4050, L501.5200 #### [facility] [address] [place], [address] Performed By: #### L 501.3620, L500.4100, L500.4050, L100.0100, L501.9520 ####[facility] [address] [place], [address] MCH (RBC) [Entitic mass] 30.2 pg Normal 27.0-32.0 [facility] Comment on above: Performed By: #### L 500.4050, L501.5200 #### [facility] [address] [place], [address] Performed By: #### L 501.3620, L500.4100, L500.4050, L100.0100, L501.9520 ####[facility] [address] [place], [address] MCHC (RBC) [Mass/Vol] 33.6 g/dL Normal 32-36 [facility] Comment on above: Performed By: #### L 500.4050, L501.5200 #### [facility] [address] [place], [address] Performed By: #### L 501.3620, L500.4100, L500.4050, L100.0100, L501.9520 ####[facility] [address] [place], [address] MCV (RBC) [Entitic vol] 89.9 fL Normal 80-94 [facility] Comment on above: Performed By: #### L 500.4050, L501.5200 #### [facility] [address] [place], [address] Performed By: #### L 501.3620, L500.4100, L500.4050, L100.0100, L501.9520 ####[facility] [address] [place], [address] Monocytes/100 WBC (Bld) 13.0 % High 0-10 [facility] Comment on above: Performed By: #### L 500.4050, L501.5200 #### [facility] [address] [place], [address] Performed By: #### L 501.3620, L500.4100, L500.4050, L100.0100, L501.9520 ####[facility] [address] [place], [address] Neutrophils/100 WBC (Bld) 72.4 % High 47-70 [facility] Comment on above: Performed By: #### L 500.4050, L501.5200 #### [facility] [address] [place], [address] Performed By: #### L 501.3620, L500.4100, L500.4050, L100.0100, L501.9520 ####[facility] [address] [place], [address] Nucleated RBC (Bld) [#/Vol] 0 10*3/uL Normal 0-5 [facility] Comment on above: Performed By: #### L 500.4050, L501.5200 #### [facility] [address] [place], [address] Performed By: #### L 501.3620, L500.4100, L500.4050, L100.0100, L501.9520 ####[facility] [address] [place], [address] Platelet mean volume (Bld) [Entitic vol] 10.3 fL Normal 6.2-12.0 [facility] Comment on above: Performed By: #### L 500.4050, L501.5200 #### [facility] [address] [place], [address] Performed By: #### L 501.3620, L500.4100, L500.4050, L100.0100, L501.9520 ####[facility] [address] [place], [address] Platelets (Bld) [#/Vol] 145 10*3/uL Low 150-450 [facility] Comment on above: Performed By: #### L 500.4050, L501.5200 #### [facility] [address] [place], [address] Performed By: #### L 501.3620, L500.4100, L500.4050, L100.0100, L501.9520 ####[facility] [address] [place], [address] RBC (Bld) [#/Vol] 3.18 10*6/uL Low 4.6-6.2 [facility] Comment on above: Performed By: #### L 500.4050, L501.5200 #### [facility] [address] [place], [address] Performed By: #### L 501.3620, L500.4100, L500.4050, L100.0100, L501.9520 ####[facility] [address] [place], [address] RDW SD 43.8 fl Normal 35.1-43.9 [facility] Comment on above: Performed By: #### L 500.4050, L501.5200 #### [facility] [address] [place], [address] Performed By: #### L 501.3620, L500.4100, L500.4050, L100.0100, L501.9520 ####[facility] [address] [place], [address] WBC (Bld) [#/Vol] 7.2 10*3/uL Normal 4.4-11.0 [facility] Comment on above: Performed By: #### L 500.4050, L501.5200 #### [facility] [address] [place], [address] Performed By: #### L 501.3620, L500.4100, L500.4050, L100.0100, L501.9520 ####[facility] [address] [place], [address] CPK Total, Creatine Kinaseon 02-13-2025 CPK TOTAL 189 U/L Normal 24-195 [facility] Comment on above: Order Comment: PREVI OUS SPECIMEN Performed By: #### L 500.4050, L501.5200 #### [facility] [address] [place], [address] Order Comment: PREVI OUS SPECIMEN Performed By: #### L 501.3620, L500.4100, L500.4050, L100.0100, L501.9520 ####[facility] [address] [place], [address] CPK TOTAL TNP Normal 24-195 [facility] Comment on above: Order Comment: Comme nts: DC when propofol is d/c'd Result Comment: Hemo lysis present, Results??could be affected. ?? Performed By: #### L 500.4050, L501.5200 #### [facility] [address] [place], [address] Order Comment: Comme nts: DC when propofol is d/c'd Result Comment: Hemo lysis present, Results??could be affected.?? Performed By: #### L 501.5000, L501.3620 ####[facility] [address] [place], [address] Calculated very low density lipoprotein (VLDL) cholesterol measurementOrdered By: Vandana Bro on 02-13-2025 Calculated very low density lipoprotein (VLDL) cholesterol measurement 44 mg/dL High 5-40 [facility] Chest 1 View (Portable)on Chest 1 View (Portable) [facility] Imaging Services [address] [place] [address] Chest 1 View (Portable) MR#: [id number] Acct: [id number] Name: SAM VIDALES Rep #: [id number] : 1950 M 74 From: Mayco Drew MD PCP: [facility] Status: ADM IN Study: Chest 1 View (Portable) Date of Exam: 02/13/25 Exam# [id number] Ordering Dr: Vandana Bro MD PROCEDURE: CHEST 1 VIEW (PORTABLE) 02/13/2025 REASON FOR EXAM: DYSPNEA TECHNIQUE: Frontal view of the chest. COMPARISON: 02/12/2025 FINDINGS: ETT tip between the inlet and the dick. Enteric tube tip in stomach lumen. Upper limits of normal heart size, possible LVH. Status post CABG. Redemonstration of mild central lung opacities, partial interval improvement. No large effusion or pneumothorax. RAD/Chest 1 View (Portable) IMPRESSION: Clearing pulmonary edema pattern. Reading Location: [facility] CC: Dr. Vandana Bro MD; [facility] Chlorobutadiene Scrubber Operator: Signed Normal [facility] Chest 1 View (Portable) Normal [facility] Comprehensive Metabolic Prof ilon 02-13-2025 Albumin [Mass/Vol] 3.5 g/dL Normal 3.4-4.8 [facility] Comment on above: Order Comment: PREVI OUS SPECIMEN Performed By: #### L 500.4050, L501.5200 #### [facility] [address] [place], [address] Order Comment: PREVI OUS SPECIMEN Performed By: #### L 501.3620, L500.4100, L500.4050, L100.0100, L501.9520 ####[facility] [address] [place], [address] Albumin/Globulin [Mass ratio] 1.5 {ratio} Normal 0.9-2.4 [facility] Comment on above: Order Comment: PREVI OUS SPECIMEN Performed By: #### L 500.4050, L501.5200 #### [facility] [address] [place], [address] Order Comment: PREVI OUS SPECIMEN Performed By: #### L 501.3620, L500.4100, L500.4050, L100.0100, L501.9520 ####[facility] [address] [place], [address] ALK PHOS 91 U/L Normal 40-129 [facility] Comment on above: Order Comment: PREVI OUS SPECIMEN Performed By: #### L 500.4050, L501.5200 #### [facility] [address] [place], [address] Order Comment: PREVI OUS SPECIMEN Performed By: #### L 501.3620, L500.4100, L500.4050, L100.0100, L501.9520 ####[facility] [address] [place], [address] ALT [Catalytic activity/Vol] 64 U/L High <=46 [facility] Comment on above: Order Comment: PREVI OUS SPECIMEN Performed By: #### L 500.4050, L501.5200 #### [facility] [address] [place], [address] Order Comment: PREVI OUS SPECIMEN Performed By: #### L 501.3620, L500.4100, L500.4050, L100.0100, L501.9520 ####[facility] [address] [place], [address] AST [Catalytic activity/Vol] 49 U/L High <=37 [facility] Comment on above: Order Comment: PREVI OUS SPECIMEN Result Comment: Hemo lysis present, Results??could be affected. ?? Performed By: #### L 500.4050, L501.5200 #### [facility] [address] [place], [address] Order Comment: PREVI OUS SPECIMEN Result Comment: Hemo lysis present, Results??could be affected.?? Performed By: #### L 501.3620, L500.4100, L500.4050, L100.0100, L501.9520 ####[facility] [address] [place], [address] Bilirubin [Mass/Vol] 0.39 mg/dL Normal 0.00-1.30 [facility] Comment on above: Order Comment: PREVI OUS SPECIMEN Performed By: #### L 500.4050, L501.5200 #### [facility] [address] [place], [address] Order Comment: PREVI OUS SPECIMEN Performed By: #### L 501.3620, L500.4100, L500.4050, L100.0100, L501.9520 ####[facility] [address] [place], [address] BUN/CRE 17.1 RATIO Normal 10-20 [facility] Comment on above: Order Comment: PREVI OUS SPECIMEN Performed By: #### L 500.4050, L501.5200 #### [facility] [address] [place], [address] Order Comment: PREVI OUS SPECIMEN Performed By: #### L 501.3620, L500.4100, L500.4050, L100.0100, L501.9520 ####[facility] [address] [place], [address] Calcium [Mass/Vol] 8.3 mg/dL Normal 7.6-11.0 [facility] Comment on above: Order Comment: PREVI OUS SPECIMEN Performed By: #### L 500.4050, L501.5200 #### [facility] [address] [place], [address] Order Comment: PREVI OUS SPECIMEN Performed By: #### L 501.3620, L500.4100, L500.4050, L100.0100, L501.9520 ####[facility] [address] [place], [address] Chloride [Moles/Vol] 108 mmol/L Normal 98-108 [facility] Comment on above: Order Comment: PREVI OUS SPECIMEN Performed By: #### L 500.4050, L501.5200 #### [facility] [address] [place], [address] Order Comment: PREVI OUS SPECIMEN Performed By: #### L 501.3620, L500.4100, L500.4050, L100.0100, L501.9520 ####[facility] [address] [place], [address] CO2 [Moles/Vol] 18.9 mmol/L Low 21.0-32.0 [facility] Comment on above: Order Comment: PREVI OUS SPECIMEN Performed By: #### L 500.4050, L501.5200 #### [facility] [address] [place], [address] Order Comment: PREVI OUS SPECIMEN Performed By: #### L 501.3620, L500.4100, L500.4050, L100.0100, L501.9520 ####[facility] [address] [place], [address] Creatinine [Mass/Vol] 3.39 mg/dL High 0.70-1.20 [facility] Comment on above: Order Comment: PREVI OUS SPECIMEN Performed By: #### L 500.4050, L501.5200 #### [facility] [address] [place], [address] Order Comment: PREVI OUS SPECIMEN Performed By: #### L 501.3620, L500.4100, L500.4050, L100.0100, L501.9520 ####[facility] [address] [place], [address] ECRCL 19.44 ml/min Low 50-250 [facility] Comment on above: Order Comment: PREVI OUS SPECIMEN Performed By: #### L 500.4050, L501.5200 #### [facility] [address] [place], [address] Order Comment: PREVI OUS SPECIMEN Performed By: #### L 501.3620, L500.4100, L500.4050, L100.0100, L501.9520 ####[facility] [address] [place], [address] GAP 12 Normal 5-15 [facility] Comment on above: Order Comment: PREVI OUS SPECIMEN Performed By: #### L 500.4050, L501.5200 #### [facility] [address] [place], [address] Order Comment: PREVI OUS SPECIMEN Performed By: #### L 501.3620, L500.4100, L500.4050, L100.0100, L501.9520 ####[facility] [address] [place], [address] GFR/1.73 sq M.predicted among non-blacks MDRD (S/P/Bld) [Vol rate/Area] 18 mL/min/{1.73_m2} Low >60 [facility] Comment on above: Order Comment: PREVI OUS SPECIMEN Result Comment: mL/m in/1.73m2 CKD-EPI Creatinine Equation (2020) Performed By: #### L 500.4050, L501.5200 #### [facility] [address] [place], [address] Order Comment: PREVI OUS SPECIMEN Result Comment: mL/m in/1.73m2 CKD-EPI Creatinine Equation (2020) Performed By: #### L 501.3620, L500.4100, L500.4050, L100.0100, L501.9520 ####[facility] [address] [place], [address] Globulin (S) [Mass/Vol] 2.4 g/dL Normal 2.2-4.2 [facility] Comment on above: Order Comment: PREVI OUS SPECIMEN Performed By: #### L 500.4050, L501.5200 #### [facility] [address] [place], [address] Order Comment: PREVI OUS SPECIMEN Performed By: #### L 501.3620, L500.4100, L500.4050, L100.0100, L501.9520 ####[facility] [address] [place], [address] Glucose [Mass/Vol] 125 mg/dL High 70-99 [facility] Comment on above: Order Comment: PREVI OUS SPECIMEN Performed By: #### L 500.4050, L501.5200 #### [facility] [address] [place], [address] Order Comment: PREVI OUS SPECIMEN Performed By: #### L 501.3620, L500.4100, L500.4050, L100.0100, L501.9520 ####[facility] [address] [place], [address] Potassium [Moles/Vol] 4.3 mmol/L Normal 3.3-5.1 [facility] Comment on above: Order Comment: PREVI OUS SPECIMEN Result Comment: Hemo lysis present, Results??could be affected. ?? Performed By: #### L 500.4050, L501.5200 #### [facility] [address] [place], [address] Order Comment: PREVI OUS SPECIMEN Result Comment: Hemo lysis present, Results??could be affected.?? Performed By: #### L 501.3620, L500.4100, L500.4050, L100.0100, L501.9520 ####[facility] [address] [place], [address] Sodium [Moles/Vol] 138 mmol/L Normal 133-145 [facility] Comment on above: Order Comment: PREVI OUS SPECIMEN Performed By: #### L 500.4050, L501.5200 #### [facility] [address] [place], [address] Order Comment: PREVI OUS SPECIMEN Performed By: #### L 501.3620, L500.4100, L500.4050, L100.0100, L501.9520 ####[facility] [address], [address] T PROT 5.9 g/dL Normal 5.9-8.4 [facility] Comment on above: Order Comment: PREVI OUS SPECIMEN Performed By: #### L 500.4050, L501.5200 #### [facility] [address] [place], [address] Order Comment: PREVI OUS SPECIMEN Performed By: #### L 501.3620, L500.4100, L500.4050, L100.0100, L501.9520 ####[facility] [address], [address] Urea nitrogen [Mass/Vol] 58 mg/dL High 4-19 [facility] Comment on above: Order Comment: PREVI OUS SPECIMEN Performed By: #### L 500.4050, L501.5200 #### [facility] [address] [place], [address] Order Comment: PREVI OUS SPECIMEN Performed By: #### L 501.3620, L500.4100, L500.4050, L100.0100, L501.9520 ####[facility] [address] [place], [address] Consultation - Intensiviston 02-13-2025 Consultation - Location And Measurement Technician [facility] Medical Records Department [address] [place] [address] Consultation - Location And Measurement Technician 02/13/25 0326 MR#: [id number] Acct: [id number] Name: SOBEIDASAM Schwartz Rep #: [id number] : 1950 74 From: Nir Mccarthy MD PCP: [facility] Status:ADM IN Location: ICU ICU01-1 HPI Consult Data Date of Consult: 02/13/25 HPI Narrative HPI Narrative: SAM VIDALES is a 74 Male with known CAD s/p CABG ???4, CKD, and hypertension was brought in by EMS for shortness of breath. At home was 80% on room air; placed on NRB by EMS. In ED, mental status fluctuated; initial BiPAP attempt aborted in favor of intubation for worsening respiratory status and decreased consciousness. reports recent heavy activity (golfing, carrying salt bags) and increased fatigue. Initial labs: WBC 11.7 ???10???/???L, platelets 181 ???10???/???L, VBG with PCO2 60 mmHg and lactate normal. BNP markedly elevated at 15,000 pg/mL. Viral panel negative. He was given a diagnosis of acute decompensated heart failure with pulmonary edema. Creatinine elevated at 3.0 mg/dL (baseline unknown). Low BP initially in ED, likely from sedatives for intubation; now stable (low 96/50). No fluid restriction currently ordered; daily weights performed. Cardiology consulted; echocardiogram pending. Received Lasix 40 mg IV tonight; prior dosing BID. [facility] Medical History Former tobacco use Valvular heart disease CKD (chronic kidney disease), stage IV HLD (hyperlipidemia) HTN (hypertension) CAD (coronary artery disease) Medical History unable to obtain Allergy/AdvReac Type Severity Reaction Status Date / Time lisinopril AdvReac Mild Cough Verified 02/12/25 20:33 Family History (Updated 02/12/25 @ 20:[address] Vandana Bro MD) Sister Heart disease Hypertension Daughter Heart disease Hypertension Mother Heart disease Father Heart disease Family History unable to obtain Surgical History Hx of coronary artery bypass graft S/P laminectomy Surgical History unable to obtain Social History household members: spouse Smoking Status: Unknown if ever smoked how long ago did patient quit smoking: Quit 1997. alcohol intake: current alcohol intake frequency: holidays/special occasions only substance use type: does not use Objective Data Objective Data Vital Signs: Vital Signs Last response 3 Temperature 37.4 C H 02/13/25 03:00 Temperature Source Core 02/13/25 03:00 Pulse Rate 59 L 02/13/25 03:00 Respiratory Rate 14 02/13/25 03:00 Respiratory Effort Mechanically Ventilated 02/13/25 00:00 Respiratory Depth Normal 02/13/25 00:00 Respiratory Pattern Normal 02/13/25 02:39 Blood Pressure 107/51 L 02/13/25 03:00 Blood Pressure Mean 69 02/13/25 03:00 Blood Pressure Source Monitor 02/13/25 03:00 Pulse Ox 100 02/13/25 03:00 Oxygen Delivery Method Mechanical Ventilator 02/13/25 03:00 Oxygen Flow Rate (L/min) 15 02/12/25 18:45 Fraction of Inspired Oxygen (FIO2) 30 02/13/25 03:00 I O: I O Last 24 Hours 3 02/12/25 02/12/25 02/13/25 11:59 23:59 11:59 Intake Total 186.25 / 195.95 34.10 / 34.10 Balance 186.25 / 195.95 34.10 / 34.10 I O: Total Stay 3 02/12/25 18:44 thru 02/13/25 02:00 Intake Total 220.35 Balance 220.35 Current Meds Ordered / Administered: Current meds ordered / Administered 3 Generic Name Dose Route Start Last Admin Trade Name Freq PRN Reason Stop Dose Admin Acetaminophen 650 mg 02/12/25 22:09 Acetaminophen 650 Mg Suppository RC Q4H PRN PRN Fever, pain 1-10 Acetaminophen 650 mg 02/12/25 22:09 Acetaminophen 325 Mg Tablet PO Q4H PRN PRN Fever, pain 1-10/10 Al Hydroxide/Mg Hydroxide 30 ml 02/12/25 22:09 Mag Hydrox/Al Hydrox/Simeth 30 Ml Udc PO Q6H PRN PRN Gastric Burning Albuterol Sulfate 2.5 mg 02/12/25 22:09 Albuterol 2.5 Mg/3 Ml Vial.Neb. INHALATION Q2H PRN PRN Dyspnea, wheezing Albuterol/Ipratropium 3 ml 02/12/25 22:09 02/12/25 23:14 Ipratropium/Albuterol Sulfate 3 Ml Ampul.Neb INHALATION 3 ml Q4HWA.RT LORIN Administration Calamine/Phenol 1 applic 02/12/25 22:09 02/12/25 22:57 Menthol/Lanolin/Calami ne/Znox 113 Gm Tube TOPICAL 1 applic 4X/DAY LORIN Administration Protocol Chlorhexidine Gluconate 15 ml 02/12/25 22:09 02/12/25 22:57 Chlorhexidine 15 Ml PO 15 ml BID LORIN Administration Furosemide 40 mg 02/12/25 22:09 02/12/25 22:59 Furosemide 40 Mg/4 Ml Vial IV 40 mg BID@1000,1800 LORIN Administration Guaifenesin 10 ml 02/12/25 22:09 Guaifenesin 10 Ml Udc (200mg/10ml) PO Q4H PRN PRN COUGH Heparin Sodium (Porcine) 5,000 unit 02/12/25 2 (more content not included)... Normal [facility] Consultation - Location And Measurement Technician Normal [facility] Echocardiogram study reportO rdered By: Deanne Medley on 02-13-2025 Study report [facility] Cardiovascular Services [address] [place] [address] Echo Complete 02/13/25913 MR#: [id number] Acct: [id number] Name: SAM VIDALES Rep #:[id number] : 1950 74 From: Deanne Medley MD Attending Dr: Dr. Lana Menjivar MD Status: ADM IN Ordering Dr: Vandana Bro MD Date: 02/12/25 Location: ICU Sex: M C Admitted: 02/12/25 Reason For Study Reason For Study: CHF Procedure This was a 2D Doppler, Color Flow transthoracic echocardiogram. Exam performed portable in ICU/CCU. Left Ventricle Moderate eccentric left ventricular hypertrophy. The 3D full volume ejection fraction is 55-60 %. Right Ventricle Normal right ventricle. Normal systolic function. Atria The left atrium is mildly enlarged. Normal right atrium. Mitral Valve The mitral valve is structurally normal. No prolapse or stenosis seen. Trivial mitral valve insufficiency. Tricuspid Valve Normal tricuspid valve. Mild tricuspid valve insufficiency. Aortic Valve Severe diffuse aortic valve calcification. Severe aortic stenosis. AV max pG 95 mmhg AV mean PG 64 mmhg unable tomeasure BARBARA. Pulmonic Valve The pulmonic valve is not well visualized. Great Vessels The aortic root is not well visualized. Pericardium/Pleural No pericardial effusion. MMode/2D Measurements & Calculations LVIDd: 4.7 cm IVSd: 1.8 cm LVOT diam: 2.0 cm LVIDs: 3.7 cm LVPWd: 1.6 cm LVOT area: 3.1 cm2 RVDd: 3.2 cm FS: 20.8 % Ao root diam: 2.9 cm LAV(MOD-bp): 65.5 ml LVAd ap4: 32.5 cm2 LAV(MOD-bp) Indexed: 33.4 ml/m2 LVLd ap4: 9.2 cm LAV(MOD-sp2): 67.3 ml EDV(MOD-sp4): 93.6 ml LAV(MOD-sp4): 62.7 ml EDV(sp4-el): 97.8 ml LVAs ap4: 19.3 cm2 LVLs ap4: 7.6 cm ESV(MOD-sp4): 40.3 ml ESV(sp4-el): 41.2 ml EF(MOD-sp4): 57.0 % EF(sp4-el): 57.8 % SV(MOD-sp4): 53.3 ml SV(sp4-el): 56.6 ml LA A4 area: 21.2 cm2 SI(MOD-sp4): 27.2 ml/m2 LA dimension(2D): 4.8 cm RA A4 area: 17.4 cm2 Time Measurements MV dec time: 0.15 sec Doppler Measurements & Calculations MV E max horacio: 111.4 cm/sec Lat Peak E' Horacio: 8.1 cm/sec Med Peak E' Horacio: 4.6 cm/sec MV A max horacio: 101.9 cm/sec E/E' lat: 13.8 E/E' med: 24.1 MV E/A: 1.1 MV V2 max: 124.9 cm/sec Ao V2 max: 488.7 cm/sec MV max P.2 mmHg MV dec slope: 749.0 cm/sec2 Ao max P.6 mmHg MV V2 mean: 85.2 cm/sec Ao V2 mean: 376.6 cm/sec MV mean P.2 mmHg Ao mean P.0 mmHg MV V2 VTI: 51.3 cm Ao V2 VTI: 137.6 cm PA V2 max: 89.3 cm/sec PA V2 mean: 62.4 cm/sec ECHO/Echo Complete Interpretation Summary The 3D full volume ejection fraction is 55-60 %. Severe calcific AV stenosis AV max pG 95 mmhg AV mean PG 64 mmhg unable tomeasure BARBARA No prior TTE tocompare Ordering Physician: Vandana Bro Referring Physician: [facility] Performed By: Gisell Guo RCS 02/13/25 1420 Date _ Deanne Medley MD CC: Dr. Vandana Bro MD; Dr. Lana Menjivar MD; [facility] ~ Date Dictated: 02/13/25913 Date Transcribed: 02/13/251419 Chlorobutadiene Scrubber Operator: Signed [facility] Work Phone: Gram Stainon 02-13-2025 GS Acceptable Specimen? Yes (<25 Epithelial cells per/lpf) Gram Stain 1+ Gram positive rods Rare White Blood Cells Rare Epithelial cells Normal [facility] Comment on above: Performed By: #### L 501.080 #### [facility] [address] [place], [place], [address] Performed By: #### M 8200.1000, M100.2400, M100.2000 ####[facility] [address] [place], [place], [id number] LDL calc ser/plasOrdered By: Vandana Bro on 02-13-2025 Cholesterol in LDL [Mass/Vol] 4 mg/dL [facility] Comment on above: Dpbrgxczfw=352-843 m g/dL & Higher Pxwc=127 mg/dL or greaterFriedwald Equation for LDL-C Lipid Profileon 02-13-2025 CHOL:HDL 2.32 Normal [facility] Comment on above: Order Comment: PREVI OUS SPECIMEN Performed By: #### L 500.4050, L501.5200 #### [facility] [address] [place], [address] Order Comment: PREVI OUS SPECIMEN Performed By: #### L 501.3620, L500.4100, L500.4050, L100.0100, L501.9520 ####[facility] [address] [place], [address] Cholesterol [Mass/Vol] 84 mg/dL Normal <=200 [facility] Comment on above: Order Comment: PREVI OUS SPECIMEN Result Comment: Chol esterol level, Desirable <200 mg/dL Borderline high cholesterol 200-239 mg/dL High cholesterol >=240 mg/dL Recommendations of the NCEP Adult Treatment Panel for the following risk-cutoff thresholds for the [place] population. Performed By: #### L 500.4050, L501.5200 #### [facility] [address] [place], [address] Order Comment: PREVI OUS SPECIMEN Result Comment: Chol esterol level, Desirable <200 mg/dLBorderline high cholesterol 200-239 mg/dLHigh cholesterol >=240 mg/dLRecommendations of the NCEP Adult Treatment Panel for thefollowing risk-cutoff thresholds for the [place] Americanpopulation. Performed By: #### L 501.3620, L500.4100, L500.4050, L100.0100, L501.9520 ####[facility] [address] [place], [address] Cholesterol in HDL [Mass/Vol] 36 mg/dL Low [facility] Comment on above: Order Comment: PREVI OUS SPECIMEN Result Comment: Delores onal Cholesterol Education Program (NCEP) guidelines: <40 mg/dL: Low HDL-cholesterol (major risk factor for CHD) >= 60 mg/dL: High HDL-cholesterol (negative risk factor for CHD) HDL-cholesterol is affected by a number of factors, e.g. smoking, exercise, hormones, sex and age. Performed By: #### L 500.4050, L501.5200 #### [facility] [address] [place], [address] Order Comment: PREVI OUS SPECIMEN Result Comment: Delores onal Cholesterol Education Program (NCEP) guidelines:<40 mg/dL: Low HDL-cholesterol (major risk factor for CHD)>= 60 mg/dL: High HDL-cholesterol (negative risk factor forCHD)HDL-cholesterol is affected by a number of factors, e.g.smoking, exercise, hormones, sex and age. Performed By: #### L 501.3620, L500.4100, L500.4050, L100.0100, L501.9520 ####[facility] [address] [place], [address] Cholesterol in LDL [Mass/Vol] 4 mg/dL Normal [facility] Comment on above: Order Comment: PREVI OUS SPECIMEN Result Comment: Bord klrviv=214-418 mg/dL Higher Rizv=377 mg/dL or greater Friedwald Equation for LDL-C Performed By: #### L 500.4050, L501.5200 #### [facility] [address] [place], [address] Order Comment: PREVI OUS SPECIMEN Result Comment: Bord ehubyu=653-940 mg/dL Higher Wnkd=592 mg/dL or greaterFriedwald Equation for LDL-C Performed By: #### L 501.3620, L500.4100, L500.4050, L100.0100, L501.9520 ####[facility] [address] [place], [address] Cholesterol in VLDL [Mass/Vol] 44 mg/dL High 5-40 [facility] Comment on above: Order Comment: PREVI OUS SPECIMEN Performed By: #### L 500.4050, L501.5200 #### [facility] [address] [place], [address] Order Comment: PREVI OUS SPECIMEN Performed By: #### L 501.3620, L500.4100, L500.4050, L100.0100, L501.9520 ####[facility] [address] [place], [address] Triglyceride [Mass/Vol] 219 mg/dL High [facility] Comment on above: Order Comment: PREVI OUS SPECIMEN Result Comment: The drugs N-Acetylcysteine and Metamizole may falsely depress this assay. Normal range: <150 mg/dL Borderline High: 150-199 mg/dL High: 200-499 mg/dL Very High: >500 mg/dL Performed By: #### L 500.4050, L501.5200 #### [facility] [facility] [place], [address] Order Comment: PREVI OUS SPECIMEN Result Comment: The drugs N-Acetylcysteine and Metamizole may falselydepress this assay.Normal range: <150 mg/dLBorderline High: 150-199 mg/dLHigh: 200-499 mg/dLVery High: >500 mg/dL Performed By: #### L 501.3620, L500.4100, L500.4050, L100.0100, L501.9520 ####[facility] [address] [place], [address] M8200.1000on 02-13-2025 M8200.1000 Normal Reference Ran ge = Negative MRSA DNA Nose Ql BRUCE+probe GeneXpert Instrument, PCR method MRSA PCR MRSA NEGATIVE Normal [facility] Comment on above: Performed By: #### L 501.080 #### [facility] [address] [facility] [place], [address] Performed By: #### M 8200.1000, M100.2400, M100.2000 ####[facility] [address] [place], [address] RESPIRATORY PANEL MOLECULARo n 02-13-2025 RP PANEL ADENOVIRUS Not Detected INFLUENZA A Not Detected INFLUENZA A (SUBTYPE H1) Not Detected INFLUENZA A (SUBTYPE H3) Not Detected INFLUENZA B Not Detected HUMAN METAPHNEUMO Not Detected PARAINFLUENZA 1 Not Detected PARAINFLUENZA 2 Not Detected PARAINFLUENZA 3 Not Detected PARAINFLUENZA 4 Not Detected RHINOVIRUS Not Detected RSV A Not Detected RSV B Not Detected Normal [facility] Comment on above: Performed By: #### L 500.4050, L501.5200 #### [facility] [address] [place], [address] RP PANEL Normal [facility] Comment on above: Performed By: #### M 100.638 ####[facility] [address] [place], [address] Respiratory Cultureon 2024 RESPC Mixed normal respiratory elizabeth. No Streptococcus pneumoniae, beta-hemolytic Streptococcus or Staphylococcus aureus isolated. Normal [facility] Comment on above: Performed By: #### L 9000.0800 #### [facility] [address] [place], [address] Performed By: #### M 8200.1000, M100.2400, M100.2000 ####[facility] [address] [place], [address] Screening total cholesterol/ high density lipoprotein (HDL) cholesterol ratioOrdered By: Vandana Bro on 02-13-2025 Cholesterol.total/Delphine sterol in HDL [Mass ratio] 2.32 {ratio} [facility] Serum or plasma cholesterol in HDL measurement (mass/volume)Ordered By: Vandana Bro on 02-13-2025 Cholesterol in HDL [Mass/Vol] 36 mg/dL Low >40 [facility] Comment on above: National Cholesterol Education Program (NCEP) guidelines:<40 mg/dL: Low HDL-cholesterol (major risk factor for CHD)>= 60 mg/dL: High HDL-cholesterol (negative risk factor for CHD)HDL-cholesterol is affected by a number of factors, e.g. smoking, exercise, hormones, sex and age. Serum or plasma cholesterol measurement (mass/volume)Ordered By: Vandana Bro on 02-13-2025 Cholesterol [Mass/Vol] 84 mg/dL <201 [facility] Comment on above: Cholesterol level, D esirable <200 mg/dLBorderline high cholesterol 200-239 mg/dLHigh cholesterol >=240 mg/dLRecommendations of the NCEP Adult Treatment Panel for the following risk-cutoff thresholds for the [place] population. Serum or plasma creatine kin ase activityOrdered By: Vandana Bro on 02-13-2025 CK [Catalytic activity/Vol] 189 U/L 24-195 [facility] TSH DL <= 0.005 mIU/L QnOrde red By: Vandana Adali on 02-13-2025 TSH Qn 1.220 uIU/mL 0.300-4.200 [facility] Thyroid Stim Hormone (TSH)on 02-13-2025 TSH 1.220 uIU/mL Normal 0.300-4.200 [facility] Comment on above: Order Comment: PREVI OUS SPECIMEN Performed By: #### L 500.4050, L501.5200 #### [facility] [address] [place], [address] Order Comment: PREVI OUS SPECIMEN Performed By: #### L 501.3620, L500.4100, L500.4050, L100.0100, L501.9520 ####[facility] [address] [place], [address] Triglycerideson 02-13-2025 Triglyceride [Mass/Vol] 81 mg/dL Normal [facility] Comment on above: Order Comment: Comme nts: DC when propofol is d/c'dDC when propofol is d/c'd Result Comment: The drugs N-Acetylcysteine and Metamizole may falsely depress this assay. Normal range: <150 mg/dL Borderline High: 150-199 mg/dL High: 200-499 mg/dL Very High: >500 mg/dL Performed By: #### L 500.4050, L501.5200 #### [facility] [address] [place], [address] Order Comment: Comme nts: DC when propofol is d/c'dDC when propofol is d/c'd Result Comment: The drugs N-Acetylcysteine and Metamizole may falselydepress this assay.Normal range: <150 mg/dLBorderline High: 150-199 mg/dLHigh: 200-499 mg/dLVery High: >500 mg/dL Performed By: #### L 501.5000, L501.3620 ####[facility] [address] [place], [address] Triglycerides measurementOrd ered By: Vandana Bro on 02-13-2025 Triglyceride [Mass/Vol] 219 mg/dL High <199 [facility] Comment on above: The drugs N-Acetylcy steine and Metamizole may falsely depress this assay. Normal range: <150 mg/dLBorderline High: 150-199 mg/dLHigh: 200-499 mg/dLVery High: >500 mg/dL Troponin T HS 4 HRon 025 Trop T High Sen 167 ng/L Invalid Interpretation Code <=22 [facility] Comment on above: Result Comment: Hemo lysis present, Results??could be affected. ?? Critical Result(s) Called at 0028: by: ROXY ARORA??Results read back by same. Performed By: #### L 501.080 #### [facility] [address] [place], [place], [address] Result Comment: Hemo lysis present, Results??could be affected.??Critical Result(s) Called at 0028: by: ROXY MARTIN??Results read back by same. Performed By: #### L 499.0043 ####[facility] [address] [place], [place], [address] Urine Cultureon 02-13-2025 URC Culture exhibits no growth. Normal [facility] Comment on above: Performed By: #### L 9000.0800 #### [facility] [address] [place], [address] Performed By: #### M 100.2200, L400.0001 ####[facility] [address] [place], [address] 12 Lead EKGon 02-12-2025 12 Lead EKG [facility] Cardiovascular Services [address] [place] [address] 12 Lead EKG 02/12/25 1846 MR#: [id number] Acct: [id number] Name: SAM VIDALES Rep #: [id number] : 1950 74 From: Rah Mary MD Attending Dr: Dr. Lana Menjivar MD Status: AD M IN Ordering Dr: Ayaz Hendrickson MD Date: 02/12/25 Location: ICU Sex: M C Admitted: 02/12/25 Test Reason : CHEST PAIN Blood Pressure : */* mmHG Vent. Rate : 78 BPM Atrial Rate : 78 BPM P-R Int : 252 ms QRS Dur : 94 ms QT Int : 414 ms P-R-T Axes : 66 -15 95 degrees QTcB Int : 471 ms Sinus rhythm with 1st degree A-V block Minimal voltage criteria for LVH, may be normal variant ( Sokolow-Jacob ) ST T wave abnormality, consider lateral ischemia Abnormal ECG Confirmed by TYRA JUNE, RAH ([id number]), online editor JASS MCFARLAND ([id number]) on 02/15/2025 1:06:50 PM Referred By: EMEKA Confirmed By: RAH MARY MD 02/15/25 1306 Date Rah Mary MD CC: Dr. Ayaz Hendrickson MD; Dr. Lana Menjivar MD; [facility] Signed Normal [facility] 12 Lead EKG Normal [facility] Absolute lymphocyte countOrd ered By: Ayaz Hendrickson on 02-12-2025 Lymphocytes Auto (Unsp spec) [#/Vol] 1.75 10*3/uL 0.83-4.51 [facility] Absolute neutrophil countOrd ered By: Ayaz Hendrickson on 02-12-2025 Neutrophils (Bld) [#/Vol] 8.2 10*3/uL High 2.0-7.7 [facility] Activated partial thrombopla stin time (aPTT) in platelet poor plasma by coagulation aOrdered By: Ayaz Hendrickson on 02-12-2025 aPTT Coag (PPP) [Time] 30.4 s 24.1-36.2 [facility] Anion gap in Serum or Plasma Ordered By: Ayaz Hendrickson on 02-12-2025 Anion gap [Moles/Vol] 16 mmol/L High 5-15 [facility] Assessment of wrist artery p atency prior to arterial punctureOrdered By: Vandana Bro on 02-12-2025 Arterial patency Wrist artery --pre arterial puncture Positive [facility] Assessment of wrist artery p atency prior to arterial punctureOrdered By: Ayaz Hendrickson on 02-12-2025 Arterial patency Wrist artery --pre arterial puncture N/A [facility] Automated lymphocyte count a s percentage of total leukocytesOrdered By: Ayaz Hendrickson on 02-12-2025 Lymphocytes/100 WBC Auto (Unsp spec) 14.9 % Low 19-41 [facility] BUN/creatinine ratioOrdered By: Ayaz Hendrickson on 02-12-2025 Urea nitrogen/Creatinine [Mass ratio] 16.6 mg/mg 10-20 [facility] Basophil percentageOrdered B y: Ayaz Hendrickson on 02-12-2025 Basophils/100 WBC (Bld) 0.6 % 0-1 [facility] Bedside Glucoseon 02-12-2025 FINGERSTICK GLU 161 mg/dL High 74-106 [facility] Comment on above: Result Comment: KURTIS GEMENT OF PATIENT CARE PER NURSING PROTOCOL Performed By: #### L 501.080 #### [facility] [address] [place], [address] Result Comment: KURTIS GEMENT OF PATIENT CARE PER NURSING PROTOCOL Performed By: #### L 501.080 ####[facility] [address] [place], [place], [id number] Bilirubin Test strip Ql (U)O rdered By: Ayaz Hendrickson on 02-12-2025 Bilirubin Ql (U) Negative Negative [facility] Bilirubin, totalOrdered By: Ayaz Hendrickson on 02-12-2025 Bilirubin [Mass/Vol] 0.55 mg/dL 0.00-1.30 [facility] Blood Gases by CPSon 025 LU TEST Positive Normal [facility] Comment on above: Performed By: #### L 9000.0800 #### [facility] [address] [place], [address] Performed By: #### L 9000.0800 ####[facility] [address] [place], [address] Base excess Calc (Bld) [Moles/Vol] -5 mmol/L Low -2 to +2 [facility] Comment on above: Performed By: #### L 9000.0800 #### [facility] [address] [place], [address] Performed By: #### L 9000.0800 ####[facility] [address] [place], [address] Blood Gas Type ART Normal [facility] Comment on above: Performed By: #### L 9000.0800 #### [facility] [address] [place], [address] Performed By: #### L 9000.0800 ####[facility] [address] [place], [address] CO2 [Moles/Vol] 22 mmol/L Normal [facility] Comment on above: Performed By: #### L 9000.0800 #### [facility] [address] [place], [address] Performed By: #### L 9000.0800 ####[facility] [address] [place], [address] FI02 40.0 Normal [facility] Comment on above: Performed By: #### L 9000.0800 #### [facility] [address] [place], [address] Performed By: #### L 9000.0800 ####[facility] [address] [place], [address] HCO3 (Bld) [Moles/Vol] 20.9 mmol/L Low 22-26 [facility] Comment on above: Performed By: #### L 9000.0800 #### [facility] [address] [place], [address] Performed By: #### L 9000.0800 ####[facility] [address] [place], [address] Mode AC Normal [facility] Comment on above: Performed By: #### L 9000.0800 #### [facility] [address] [place], [address] Performed By: #### L 9000.0800 ####[facility] [address] [place], [address] O2 Delivery Dev ET Tube Normal [facility] Comment on above: Performed By: #### L 9000.0800 #### [facility] [address] [place], [address] Performed By: #### L 9000.0800 ####[facility] [address] [place], [address] pCO2 39.3 mmHg Normal 35-45 [facility] Comment on above: Performed By: #### L 9000.0800 #### [facility] [address] [place], [address] Performed By: #### L 9000.0800 ####[facility] [address] [place], [address] PEEP 5 Normal [facility] Comment on above: Performed By: #### L 9000.0800 #### [facility] [address] [place], [address] Performed By: #### L 9000.0800 ####[facility] [address] [place], [address] pH (Bld) 7.33 [pH] Low 7.35-7.45 [facility] Comment on above: Performed By: #### L 9000.0800 #### [facility] [address] [place], [address] Performed By: #### L 9000.0800 ####[facility] [address] [place], [address] PO2 82 mmHG Normal 75-100 [facility] Comment on above: Performed By: #### L 9000.0800 #### [facility] [address] [place], [address] Performed By: #### L 9000.0800 ####[facility] [address] [place], [address] RR 14 Normal [facility] Comment on above: Performed By: #### L 9000.0800 #### [facility] [address] [place], [address] Performed By: #### L 9000.0800 ####[facility] [address] [place], [address] SITE R Radial Normal [facility] Comment on above: Performed By: #### L 9000.0800 #### [facility] [address] [place], [address] Performed By: #### L 9000.0800 ####[facility] [address] [place], [address] SO2 95 Normal 95-99 [facility] Comment on above: Performed By: #### L 9000.0800 #### [facility] [address] [place], [address] Performed By: #### L 9000.0800 ####[facility] [address] [place], [address] Vt 450.0 mL Normal [facility] Comment on above: Performed By: #### L 9000.0800 #### [facility] [address] [place], [address] Performed By: #### L 9000.0800 ####[facility] [address] [place], [address] Base excess Calc (Bld) [Moles/Vol] -8 mmol/L Low -2 to +2 [facility] Comment on above: Result Comment: dupl icate Performed By: #### L 500.4050, L501.5200 #### [facility] [address] [place], [address] Result Comment: dupl icate Performed By: #### L 9000.0800 ####[facility] [address] [place], [address] Blood Gas Type ART Normal [facility] Comment on above: Result Comment: dupl icate Performed By: #### L 500.4050, L501.5200 #### [facility] [address] [place], [address] Result Comment: dupl icate Performed By: #### L 9000.0800 ####[facility] [address] [place], [address] CO2 [Moles/Vol] 23 mmol/L Normal [facility] Comment on above: Result Comment: dupl icate Performed By: #### L 500.4050, L501.5200 #### [facility] [address] [place], [address] Result Comment: dupl icate Performed By: #### L 9000.0800 ####[facility] [address] [place], [address] HCO3 (Bld) [Moles/Vol] 21.0 mmol/L Low 22-26 [facility] Comment on above: Result Comment: dupl icate Performed By: #### L 500.4050, L501.5200 #### [facility] [address] [place], [address] Result Comment: dupl icate Performed By: #### L 9000.0800 ####[facility] [address] [place], [address] Mode Not entered Normal [facility] Comment on above: Result Comment: dupl icate Performed By: #### L 500.4050, L501.5200 #### [facility] [address] [place], [address] Result Comment: dupl icate Performed By: #### L 9000.0800 ####[facility] [address] [place], [address] O2 Delivery Dev Not entered Normal [facility] Comment on above: Result Comment: dupl icate Performed By: #### L 500.4050, L501.5200 #### [facility] [address] [place], [address] Result Comment: dupl icate Performed By: #### L 9000.0800 ####[facility] [address] [place], [address] pCO2 60.7 mmHg High 35-45 [facility] Comment on above: Result Comment: dupl icate Performed By: #### L 500.4050, L501.5200 #### [facility] [address] [place], [address] Result Comment: dupl icate Performed By: #### L 9000.0800 ####[facility] [address] [place], [address] pH (Bld) 7.15 [pH] Invalid Interpretation Code 7.35-7.45 [facility] Comment on above: Result Comment: dupl icate Performed By: #### L 500.4050, L501.5200 #### [facility] [address] [place], [address] Result Comment: dupl icate Performed By: #### L 9000.0800 ####[facility] [address] [place], [address] PO2 230 mmHG High 75-100 [facility] Comment on above: Result Comment: dupl icate Performed By: #### L 500.4050, L501.5200 #### [facility] [address] [place], [address] Result Comment: dupl icate Performed By: #### L 9000.0800 ####[facility] [address] [place], [address] Read Back By Yes Normal [facility] Comment on above: Result Comment: dupl icate Performed By: #### L 500.4050, L501.5200 #### [facility] [address] [place], [address] Result Comment: dupl icate Performed By: #### L 9000.0800 ####[facility] [address] [place], [address] SITE Not entered Normal [facility] Comment on above: Result Comment: dupl icate Performed By: #### L 500.4050, L501.5200 #### [facility] [address] [place], [address] Result Comment: dupl icate Performed By: #### L 9000.0800 ####[facility] [address] [place], [address] SO2 100 High 95-99 [facility] Comment on above: Result Comment: dupl icate Performed By: #### L 500.4050, L501.5200 #### [facility] [address] [place], [address] Result Comment: dupl icate Performed By: #### L 9000.0800 ####[facility] [address] [place], [address] LU TEST N/A Normal [facility] Comment on above: Performed By: #### L 501.080 #### [facility] [address] [place], [address] Performed By: #### L 9000.0800 ####[facility] [address] [place], [address] Base excess Calc (Bld) [Moles/Vol] -8 mmol/L Low -2 to +2 [facility] Comment on above: Performed By: #### L 501.080 #### [facility] [address] [place], [address] Performed By: #### L 9000.0800 ####[facility] [address] [place], [address] Blood Gas Type ART Normal [facility] Comment on above: Performed By: #### L 501.080 #### [facility] [address] [place], [address] Performed By: #### L 9000.0800 ####[facility] [address] [place], [address] CO2 [Moles/Vol] 22 mmol/L Normal [facility] Comment on above: Performed By: #### L 501.080 #### [facility] [address] [place], [address] Performed By: #### L 9000.0800 ####[facility] [address] [place], [address] FI02 100.0 Normal [facility] Comment on above: Performed By: #### L 501.080 #### [facility] [address] [place], [address] Performed By: #### L 9000.0800 ####[facility] [address] [place], [address] HCO3 (Bld) [Moles/Vol] 20.5 mmol/L Low 22-26 [facility] Comment on above: Performed By: #### L 501.080 #### [facility] [address] [place], [address] Performed By: #### L 9000.0800 ####[facility] [address] [place], [address] Mode AC Normal [facility] Comment on above: Performed By: #### L 501.080 #### [facility] [address] [place], [address] Performed By: #### L 9000.0800 ####[facility] [address] [place], [address] O2 Delivery Dev Adult Vent Normal [facility] Comment on above: Performed By: #### L 501.080 #### [facility] [address] [place], [address] Performed By: #### L 0.0800 ####[facility] [address] [place], [address] pCO2 56.8 mmHg High 35-45 [facility] Comment on above: Performed By: #### L 501.080 #### [facility] [address] [place], [address] Performed By: #### L 0.0800 ####[facility] [address] [place], [address] PEEP 5 Normal [facility] Comment on above: Performed By: #### L .080 #### [facility] [address] [place], [address] Performed By: #### L 0.0800 ####[facility] [address] [place], [address] pH (Bld) 7.17 [pH] Invalid Interpretation Code 7.35-7.45 [facility] Comment on above: Performed By: #### L .080 #### [facility] [address] [place], [address] Performed By: #### L 0.0800 ####[facility] [address] [place], [address] PO2 217 mmHG High 75-100 [facility] Comment on above: Performed By: #### L 501.080 #### [facility] [address] [place], [address] Performed By: #### L 0.0800 ####[facility] [address] [place], [address] Read Back By Yes [facility] Comment on above: Performed By: #### L 501.080 #### [facility] [address] [place], [address] Performed By: #### L 9000.0800 ####[facility] [address] [place], [address] Hendrickson [facility] Comment on above: Performed By: #### L 501.080 #### [facility] [address] [place], [address] Performed By: #### L 9000.0800 ####[facility] [address] [place], [address] RR 14 [facility] Comment on above: Performed By: #### L 501.080 #### [facility] [address] [place], [address] Performed By: #### L 9000.0800 ####[facility] [address] [place], [address] SITE R Radial [facility] Comment on above: Performed By: #### L 501.080 #### [facility] [address] [place], [address] Performed By: #### L 9000.0800 ####[facility] [address] [place], [address] SO2 100 High 95-99 [facility] Comment on above: Performed By: #### L 501.080 #### [facility] [address] [place], [address] Performed By: #### L 9000.0800 ####[facility] [address] [place], [address] Time Given 19:30:20 Normal [facility] Comment on above: Performed By: #### L 501.080 #### [facility] [address] [place], [address] Performed By: #### L 9000.0800 ####[facility] [address] [place], [address] Vt 450.0 mL Normal [facility] Comment on above: Performed By: #### L 501.080 #### [facility] [address] [place], [place], [address] Performed By: #### L 9000.0800 ####[facility] [address] [place], [address] Blood base excess determinat ionOrdered By: Vandana Bro on 02-12-2025 Base excess Calc (BldV) [Moles/Vol] -5 mmol/L [facility]22 [facility] Blood base excess determinat ionOrdered By: Ayaz Hendrickson on 02-12-2025 Base excess Calc (BldV) [Moles/Vol] -8 mmol/L [facility]22 [facility] Blood bicarbonate measuremen tOrdered By: Vandana Bro on 02-12-2025 HCO3 (Bld) [Moles/Vol] 20.9 mmol/L Low 22-26 [facility] Blood bicarbonate measuremen tOrdered By: Ayaz Hendrickson on 02-12-2025 HCO3 (Bld) [Moles/Vol] 21.0 mmol/L Low -26 [facility] Blood cultureOrdered By: Miko Hendrickson on 02-12-2025 Bacteria identified Cx Nom (Bld) No growth in 5 days. [facility] CBC W/Diff, Automatedon Absolute Lymph 1.75 X10 3/uL Normal 0.83-4.51 [facility] Comment on above: Performed By: #### L 501.080 #### [facility] [address], [address] Performed By: #### L 300.3900, L500.4050, L100.0100, L503.6005, M200.1000, L501.4021, L300.4310 ####[facility] [address] [place], [address] Absolute Neut 8.2 X10 3/uL High 2.0-7.7 [facility] Comment on above: Performed By: #### L 501.080 #### [facility] [address] [place], [address] Performed By: #### L 300.3900, L500.4050, L100.0100, L503.6005, M200.1000, L501.4021, L300.4310 ####[facility] [address] [place], [address] Basophils/100 WBC (Bld) 0.6 % Normal 0-1 [facility] Comment on above: Performed By: #### L 501.080 #### [facility] [address] [place], [address] Performed By: #### L 300.3900, L500.4050, L100.0100, L503.6005, M200.1000, L501.4021, L300.4310 ####[facility] [address] [place], [address] Eosinophils/100 WBC (Bld) 2.5 % Normal 0-5 [facility] Comment on above: Performed By: #### L 501.080 #### [facility] [address] [place], [address] Performed By: #### L 300.3900, L500.4050, L100.0100, L503.6005, M200.1000, L501.4021, L300.4310 ####[facility] [address] [place], [address] Erythrocyte distribution width (RBC) [Ratio] 13.2 % Normal 11.6-14.6 [facility] Comment on above: Performed By: #### L 501.080 #### [facility] [address] [place], [address] Performed By: #### L 300.3900, L500.4050, L100.0100, L503.6005, M200.1000, L501.4021, L300.4310 ####[facility] [address] [place], [address] Hematocrit (Bld) [Volume fraction] 37.2 % Low 40-54 [facility] Comment on above: Performed By: #### L 501.080 #### [facility] [address] [place], [address] Performed By: #### L 300.3900, L500.4050, L100.0100, L503.6005, M200.1000, L501.4021, L300.4310 ####[facility] [address] [place], [address] Hemoglobin (Bld) [Mass/Vol] 12.2 g/dL Low 13.0-16.5 [facility] Comment on above: Performed By: #### L 501.080 #### [facility] [address] [place], [address] Performed By: #### L 300.3900, L500.4050, L100.0100, L503.6005, M200.1000, L501.4021, L300.4310 ####[facility] [address] [place], [address] IG% 0.600 Normal 0.0-0.9 [facility] Comment on above: Result Comment: IG% - Immature Granulocytes (promyelocytes, myelocytes and metamyelocytes) > 1% indicates that a LEFT SHIFT is Present. Performed By: #### L 501.080 #### [facility] [address] [facility] [place], [address] Result Comment: IG% - Immature Granulocytes (promyelocytes, myelocytes andmetamyelocytes) > 1% indicates that a LEFT SHIFT is Present. Performed By: #### L 300.3900, L500.4050, L100.0100, L503.6005, M200.1000, L501.4021, L300.4310 ####[facility] [address] [facility] [place], [address] Lymphocytes/100 WBC (Bld) 14.9 % Low 19-41 [facility] Comment on above: Performed By: #### L 501.080 #### [facility] [address] [facility] [place], [address] Performed By: #### L 300.3900, L500.4050, L100.0100, L503.6005, M200.1000, L501.4021, L300.4310 ####[facility] [address] [facility] [place], [address] MCH (RBC) [Entitic mass] 29.9 pg Normal 27.0-32.0 [facility] Comment on above: Performed By: #### L 501.080 #### [facility] [address] [facility] [place], [address] Performed By: #### L 300.3900, L500.4050, L100.0100, L503.6005, M200.1000, L501.4021, L300.4310 ####[facility] [address] [facility] [place], [address] MCHC (RBC) [Mass/Vol] 32.8 g/dL Normal 32-36 [facility] Comment on above: Performed By: #### L 501.080 #### [facility] [address] [place], [address] Performed By: #### L 300.3900, L500.4050, L100.0100, L503.6005, M200.1000, L501.4021, L300.4310 ####[facility] [address] [place], [address] MCV (RBC) [Entitic vol] 91.2 fL Normal 80-94 [facility] Comment on above: Performed By: #### L 501.080 #### [facility] [address] [place], [address] Performed By: #### L 300.3900, L500.4050, L100.0100, L503.6005, M200.1000, L501.4021, L300.4310 ####[facility] [address] [place], [address] Monocytes/100 WBC (Bld) 11.4 % High 0-10 [facility] Comment on above: Performed By: #### L 501.080 #### [facility] [address] [place], [address] Performed By: #### L 300.3900, L500.4050, L100.0100, L503.6005, M200.1000, L501.4021, L300.4310 ####[facility] [address] [place], [address] Neutrophils/100 WBC (Bld) 70.0 % Normal 47-70 [facility] Comment on above: Performed By: #### L 501.080 #### [facility] [address] [place], [address] Performed By: #### L 300.3900, L500.4050, L100.0100, L503.6005, M200.1000, L501.4021, L300.4310 ####[facility] [address] [place], [address] Nucleated RBC (Bld) [#/Vol] 0 10*3/uL Normal 0-5 [facility] Comment on above: Performed By: #### L 501.080 #### [facility] [address] [place], [address] Performed By: #### L 300.3900, L500.4050, L100.0100, L503.6005, M200.1000, L501.4021, L300.4310 ####[facility] [address] [place], [address] Platelet mean volume (Bld) [Entitic vol] 10.5 fL Normal 6.2-12.0 [facility] Comment on above: Performed By: #### L 501.080 #### [facility] [address] [place], [address] Performed By: #### L 300.3900, L500.4050, L100.0100, L503.6005, M200.1000, L501.4021, L300.4310 ####[facility] [address] [place], [address] Platelets (Bld) [#/Vol] 181 10*3/uL Normal 150-450 [facility] Comment on above: Performed By: #### L 501.080 #### [facility] [address] [place], [address] Performed By: #### L 300.3900, L500.4050, L100.0100, L503.6005, M200.1000, L501.4021, L300.4310 ####[facility] [address] [place], [address] RBC (Bld) [#/Vol] 4.08 10*6/uL Low 4.6-6.2 [facility] Comment on above: Performed By: #### L 501.080 #### [facility] [address] [place], [address] Performed By: #### L 300.3900, L500.4050, L100.0100, L503.6005, M200.1000, L501.4021, L300.4310 ####[facility] [address] [place], [address] RDW SD 43.5 fl Normal 35.1-43.9 [facility] Comment on above: Performed By: #### L 501.080 #### [facility] [address] [place], [address] Performed By: #### L 300.3900, L500.4050, L100.0100, L503.6005, M200.1000, L501.4021, L300.4310 ####[facility] [address] [place], [address] WBC (Bld) [#/Vol] 11.7 10*3/uL High 4.4-11.0 [facility] Comment on above: Performed By: #### L 501.080 #### [facility] [address] [place], [address] Performed By: #### L 300.3900, L500.4050, L100.0100, L503.6005, M200.1000, L501.4021, L300.4310 ####[facility] [address] [place], [address] Carbon dioxide, total [Moles /volume] in Central venous bloodOrdered By: Ayaz Hendrickson on 02-12-2025 CO2 [Moles/Vol] 18.1 mmol/L Low 21.0-32.0 [facility] Chest 1 View (Portable)on Chest 1 View (Portable) [facility] Imaging Services [address] [place], [place] [address] Chest 1 View (Portable) MR#: [id number] Acct: [id number] Name: SAM VIDALES Rep #: [id number] : 1950 M 74 From: Tylor Servin MD PCP: [facility] Status: REG ER Study: Chest 1 View (Portable) Date of Exam: 02/12/25 Exam# [id number] Ordering Dr: Ayaz Hendrickson MD PROCEDURE: CHEST 1 VIEW (PORTABLE) 02/12/2025 REASON FOR EXAM: HYPOXIA AND RESPIRATORY FAILURE TECHNIQUE: Frontal view of the chest. COMPARISON: None available. FINDINGS: Hardware: Sternotomy wires are present. Endotracheal and enteric tubes in appropriate positions. Heart: The heart size is normal. Lungs: There is mild pulmonary vascular congestion. No definite pneumothorax or sizable pleural effusion. Bones: The bones are unremarkable. Other: None. RAD/Chest 1 View (Portable) IMPRESSION: Mild pulmonary vascular congestion. No definite focal consolidation. Reading Location: [employer] CC: Dr. Ayaz Hendrickson MD; [facility] Chlorobutadiene Scrubber Operator: Signed Normal [facility] Chest 1 View (Portable) Normal [facility] Chloride assayOrdered By: Carlos Hendrickson on 02-12-2025 Chloride [Moles/Vol] 104 mmol/L 98-108 [facility] Comprehensive Metabolic Prof ilon 02-12-2025 Albumin [Mass/Vol] 4.5 g/dL Normal 3.4-4.8 [facility] Comment on above: Performed By: #### L 501.080 #### [facility] [address] [place], [place], [id number] Performed By: #### L 300.3900, L500.4050, L100.0100, L503.6005, M200.1000, L501.4021, L300.4310 ####[facility] [address] [place], [address] Albumin/Globulin [Mass ratio] 1.4 {ratio} Normal 0.9-2.4 [facility] Comment on above: Performed By: #### L 501.080 #### [facility] [address] [place], [address] Performed By: #### L 300.3900, L500.4050, L100.0100, L503.6005, M200.1000, L501.4021, L300.4310 ####[facility] [address] [place], [address] ALK PHOS 126 U/L Normal 40-129 [facility] Comment on above: Performed By: #### L 501.080 #### [facility] [address] [place], [address] Performed By: #### L 300.3900, L500.4050, L100.0100, L503.6005, M200.1000, L501.4021, L300.4310 ####[facility] [address] [place], [address] ALT [Catalytic activity/Vol] 80 U/L High <=46 [facility] Comment on above: Performed By: #### L 501.080 #### [facility] [address] [place], [address] Performed By: #### L 300.3900, L500.4050, L100.0100, L503.6005, M200.1000, L501.4021, L300.4310 ####[facility] [address] [place], [address] AST [Catalytic activity/Vol] 71 U/L High <=37 [facility] Comment on above: Performed By: #### L 501.080 #### [facility] [address] [place], [address] Performed By: #### L 300.3900, L500.4050, L100.0100, L503.6005, M200.1000, L501.4021, L300.4310 ####[facility] [address] [place], [address] Bilirubin [Mass/Vol] 0.55 mg/dL Normal 0.00-1.30 [facility] Comment on above: Performed By: #### L 501.080 #### [facility] [address] [place], [address] Performed By: #### L 300.3900, L500.4050, L100.0100, L503.6005, M200.1000, L501.4021, L300.4310 ####[facility] [address] [place], [address] BUN/CRE 16.6 RATIO Normal 10-20 [facility] Comment on above: Performed By: #### L 501.080 #### [facility] [address] [place], [address] Performed By: #### L 300.3900, L500.4050, L100.0100, L503.6005, M200.1000, L501.4021, L300.4310 ####[facility] [address] [place], [address] Calcium [Mass/Vol] 9.1 mg/dL Normal 7.6-11.0 [facility] Comment on above: Performed By: #### L 501.080 #### [facility] [address] [place], [address] Performed By: #### L 300.3900, L500.4050, L100.0100, L503.6005, M200.1000, L501.4021, L300.4310 ####[facility] [address] [place], [address] Chloride [Moles/Vol] 104 mmol/L Normal 98-108 [facility] Comment on above: Performed By: #### L 501.080 #### [facility] [address] [place], [address] Performed By: #### L 300.3900, L500.4050, L100.0100, L503.6005, M200.1000, L501.4021, L300.4310 ####[facility] [address] [place], [address] CO2 [Moles/Vol] 18.1 mmol/L Low 21.0-32.0 [facility] Comment on above: Performed By: #### L 501.080 #### [facility] [address] [place], [address] Performed By: #### L 300.3900, L500.4050, L100.0100, L503.6005, M200.1000, L501.4021, L300.4310 ####[facility] [address] [place], [address] Creatinine [Mass/Vol] 3.36 mg/dL High 0.70-1.20 [facility] Comment on above: Performed By: #### L 501.080 #### [facility] [address] [place], [address] Performed By: #### L 300.3900, L500.4050, L100.0100, L503.6005, M200.1000, L501.4021, L300.4310 ####[facility] [address] [place], [address] ECRCL 19.61 ml/min Low 50-250 [facility] Comment on above: Performed By: #### L 501.080 #### [facility] [address] [place], [address] Performed By: #### L 300.3900, L500.4050, L100.0100, L503.6005, M200.1000, L501.4021, L300.4310 ####[facility] [address] [place], [address] GAP 16 High 5-15 [facility] Comment on above: Performed By: #### L 501.080 #### [facility] [address] [place], [address] Performed By: #### L 300.3900, L500.4050, L100.0100, L503.6005, M200.1000, L501.4021, L300.4310 ####[facility] [address] [place], [address] GFR/1.73 sq M.predicted among non-blacks MDRD (S/P/Bld) [Vol rate/Area] 18 mL/min/{1.73_m2} Low >60 [facility] Comment on above: Result Comment: mL/m in/1.73m2 CKD-EPI Creatinine Equation (2020) Performed By: #### L 501.080 #### [facility] [address] [place], [address] Result Comment: mL/m in/1.73m2 CKD-EPI Creatinine Equation (2020) Performed By: #### L 300.3900, L500.4050, L100.0100, L503.6005, M200.1000, L501.4021, L300.4310 ####[facility] [address] [place], [address] Globulin (S) [Mass/Vol] 3.3 g/dL Normal 2.2-4.2 [facility] Comment on above: Performed By: #### L 501.080 #### [facility] [address] [place], [address] Performed By: #### L 300.3900, L500.4050, L100.0100, L503.6005, M200.1000, L501.4021, L300.4310 ####[facility] [address] [place], [address] Glucose [Mass/Vol] 224 mg/dL High 70-99 [facility] Comment on above: Performed By: #### L 501.080 #### [facility] [address] [place], [address] Performed By: #### L 300.3900, L500.4050, L100.0100, L503.6005, M200.1000, L501.4021, L300.4310 ####[facility] [address] [place], [address] Potassium [Moles/Vol] 4.6 mmol/L Normal 3.3-5.1 [facility] Comment on above: Performed By: #### L 501.080 #### [facility] [address] [place], [address] Performed By: #### L 300.3900, L500.4050, L100.0100, L503.6005, M200.1000, L501.4021, L300.4310 ####[facility] [address] [place], [address] Sodium [Moles/Vol] 138 mmol/L Normal 133-145 [facility] Comment on above: Performed By: #### L 501.080 #### [facility] [address] [place], [address] Performed By: #### L 300.3900, L500.4050, L100.0100, L503.6005, M200.1000, L501.4021, L300.4310 ####[facility] [address] [place], [address] T PROT 7.8 g/dL Normal 5.9-8.4 [facility] Comment on above: Performed By: #### L 501.080 #### [facility] [address] [place], [address] Performed By: #### L 300.3900, L500.4050, L100.0100, L503.6005, M200.1000, L501.4021, L300.4310 ####[facility] [address] [place], [address] Urea nitrogen [Mass/Vol] 56 mg/dL High 4-19 [facility] Comment on above: Performed By: #### L 501.080 #### [facility] [address] [place], [address] Performed By: #### L 300.3900, L500.4050, L100.0100, L503.6005, M200.1000, L501.4021, L300.4310 ####[facility] [address] [place], [address] Echo Completeon 02-12-2025 Echo Complete [facility] Cardiovascular Services [address] [place] [address] Echo Complete 02/13/25913 MR#: [id number] Acct: [id number] Name: SAM VIDALES Rep #: [id number] : 1950 74 From: Deanne Medley MD Attending Dr: Dr. Lana Menjivar MD Status: AD M IN Ordering Dr: Vandana Bro MD Date: 02/12/25 Location: ICU Sex: M C Admitted: 02/12/25 Reason For Study Reason For Study: CHF Procedure This was a 2D Doppler, Color Flow transthoracic echocardiogram. Exam performed portable in ICU/CCU. Left Ventricle Moderate eccentric left ventricular hypertrophy. The 3D full volume ejection fraction is 55-60 %. Right Ventricle Normal right ventricle. Normal systolic function. Atria The left atrium is mildly enlarged. Normal right atrium. Mitral Valve The mitral valve is structurally normal. No prolapse or stenosis seen. Trivial mitral valve insufficiency. Tricuspid Valve Normal tricuspid valve. Mild tricuspid valve insufficiency. Aortic Valve Severe diffuse aortic valve calcification. Severe aortic stenosis. AV max pG 95 mmhg AV mean PG 64 mmhg unable tomeasure BARBARA. Pulmonic Valve The pulmonic valve is not well visualized. Great Vessels The aortic root is not well visualized. Pericardium/Pleural No pericardial effusion. MMode/2D Measurements Calculations LVIDd: 4.7 cm IVSd: 1.8 cm LVOT diam: 2.0 cm LVIDs: 3.7 cm LVPWd: 1.6 cm LVOT area: 3.1 cm2 RVDd: 3.2 cm FS: 20.8 % Ao root diam: 2.9 cm LAV(MOD-bp): 65.5 ml LVAd ap4: 32.5 cm2 LAV(MOD-bp) Indexed: 33.4 ml/m2 LVLd ap4: 9.2 cm LAV(MOD-sp2): 67.3 ml EDV(MOD-sp4): 93.6 ml LAV(MOD-sp4): 62.7 ml EDV(sp4-el): 97.8 ml LVAs ap4: 19.3 cm2 LVLs ap4: 7.6 cm ESV(MOD-sp4): 40.3 ml ESV(sp4-el): 41.2 ml EF(MOD-sp4): 57.0 % EF(sp4-el): 57.8 % SV(MOD-sp4): 53.3 ml SV(sp4-el): 56.6 ml LA A4 area: 21.2 cm2 SI(MOD-sp4): 27.2 ml/m2 LA dimension(2D): 4.8 cm RA A4 area: 17.4 cm2 Time Measurements MV dec time: 0.15 sec Doppler Measurements Calculations MV E max horacio: 111.4 cm/sec Lat Peak E' Horacio: 8.1 cm/sec Med Peak E' Horacio: 4.6 cm/sec MV A max horacio: 101.9 cm/sec E/E' lat: 13.8 E/E' med: 24.1 MV E/A: 1.1 MV V2 max: 124.9 cm/sec Ao V2 max: 488.7 cm/sec MV max P.2 mmHg MV dec slope: 749.0 cm/sec2 Ao max P.6 mmHg MV V2 mean: 85.2 cm/sec Ao V2 mean: 376.6 cm/sec MV mean P.2 mmHg Ao mean P.0 mmHg MV V2 VTI: 51.3 cm Ao V2 VTI: 137.6 cm PA V2 max: 89.3 cm/sec PA V2 mean: 62.4 cm/sec ECHO/Echo Complete Interpretation Summary The 3D full volume ejection fraction is 55-60 %. Severe calcific AV stenosis AV max pG 95 mmhg AV mean PG 64 mmhg unable tomeasure BARBARA No prior TTE tocompare Ordering Physician: Vandana Bro Referring Physician: [facility] Performed By: Gisell Guo RCS 02/13/25 1420 Date Deanne Medley MD CC: Dr. Vandana Bro MD; Dr. 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 Scrubber Operator: Signed Normal [facility] Echo Complete Normal [facility] Emergency Department Summary on 02-12-2025 Emergency Department Summary [facility] Medical Records Department [address] [place] [address] Emergency Department Summary 02/12/25 MR#: [id number] Acct: [id number] Name: SAM VIDALES Rep #: [id number] : 1950 74 From: Ayaz Hendrickson MD PCP: [place] Hospital Status:ADM IN Location: ICU ICU01-1 HPI History of Present Illness Chief Complaint: Shortness of Breath Informant: patient and EMS Onset/Context/Timing Onset: Days Context: gradual Timing: Continuous Current Severity: Severe Maximum Severity: Severe Associated Symptoms Chest Pain: Positive for None Narrative Narrative: 74-year-old male history of diabetes and prior CABG in 2016. States he has not felt well for the last several days. He presents in respiratory distress and is a very limited informant. He was brought in by squad. On their arrival to home his pulse ox was 80% on room air. Patient presents very diaphoretic and pale eminent respiratory failure he was intubated using etomidate and succinylcholine on the first attempt with a 7.5 F ET tube. Currently there is no family available when they arrive I will talk with them and get better history. PE Risk Factors: Negative for Cancer, OCP + Smoking + > 35, Prior DVT or PE, Recent immobilization, Recent surgery or Recent travel Prior similar symptoms: No Recent Illness/Hospitalizatio n: No PFSH PFSH Medical History (Updated 02/12/25 @ 20:[address] Ayaz Hendrickson MD) Former tobacco use Valvular heart disease CKD (chronic kidney disease), stage IV HLD (hyperlipidemia) HTN (hypertension) CAD (coronary artery disease) Medical History unable to obtain Allergy/AdvReac Type Severity Reaction Status Date / Time Unable to Assess Allergy Verified 02/12/25 18:59 Family History (Updated 02/12/25 @ 20:[address] Vandana Bro MD) Sister Heart disease Hypertension Daughter Heart disease Hypertension Family History unable to obtain Surgical History (Updated 02/12/25 @ 20:[address] Ayaz Hendrickson MD) Hx of coronary artery bypass graft S/P laminectomy Surgical History unable to obtain Social History (Updated 02/12/25 @ 20:[address] Vandana Bro MD) household members: spouse Smoking Status: Former smoker how long ago did patient quit smoking: Quit 1997. alcohol intake: current alcohol intake frequency: holidays/special occasions only substance use type: does not use ROS ROS ED ROS Narrative Shortness of breath. Limited due to the patient's current medical condition and extremis. Review of Systems ROS Unobtainable: due to encephalopathy and due to endotracheal tube Respiratory/Chest Respiratory/Chest: Reports dyspnea EXAM Physical Exam Narrative Exam Narrative: 74-year-old male presents pulse ox is 86% on nonrebreather mask at 15 L. He appears ill. He is extremely diaphoretic and pale. He is a limited informant. Brought in by squad. HEENT exam pupils round react light. Moist mucous membranes. Neck nontender no JVD. No lymphadenopathy. Lungs clear to auscultation bilaterally but distant lung sounds. Heart rate about 80 no murmur. Chest wall nontender but diaphoretic. No crepitus. Abdomen soft nontender, nondistended normal bowel sounds without peritoneal signs. Moving all 4 extremities. Diaphoretic. Calves are nontender no cords or edema. Neurologically he seems confused. He is try to answer questions he is moving all 4 extremities. The confusion may be from his hypoxia or encephalopathy. Const Vital Signs: 02/12/25 18:45 02/12/25 18:49 02/12/25 18:50 Temperature 97.5 F L 97.5 F L Temperature Source Axillary Core Pulse Rate 79 63 Respiratory Rate 35 H 24 H Respiratory Effort Short of Breath Labored Accessory Muscle Use Retracting Respiratory Depth Deep Respiratory Pattern Tachypnea Blood Pressure 159/100 H 160/101 H Blood Pressure Mean 119 120 Pulse Ox 86 99 Oxygen Delivery Method Non-Rebreather Mechanical Ventilator Non-Rebreather Oxygen Flow Rate (L/min) 15 Fraction of Inspired Oxygen (FIO2) 02/12/25 18:51 02/12/25 18:55 02/12/25 19:19 Temperature 97.5 F L Temperature Source Core Pulse Rate 64 Respiratory Rate 17 Respiratory Effort Short of Breath Labored Accessory Muscle Use Respiratory Depth Deep Respiratory Pattern Tachypnea Blood Pressure 109/50 L Blood Pressure Mean 69 Pulse Ox 97 100 100 Oxygen Delivery Method Ambu-Bag Mechanical Ventilator Mechanical Ventilator Oxygen Flow Rate (L/min) Fraction of Inspired Oxygen (FIO2) 02/12/25 19:30 02/12/25 19:42 02/12/25 20:00 Temperature 97.5 F L 97.4 F L 97.3 F L Temperature Source Core Oral Core Pulse Rate 63 62 60 Respiratory Rate 21 H 20 H 23 H Respiratory Effort Respiratory Depth Respiratory Pattern Blood Pressure 101/54 L (more content not included)... Normal [facility] Emergency Department Summary Normal [facility] Eosinophil percentageOrdered By: Ayaz Hendrickson on 02-12-2025 Eosinophils/100 WBC (Bld) 2.5 % 0-5 [facility] Erythrocyte distribution wid th ratioOrdered By: Ayaz Hendrickson on 02-12-2025 Erythrocyte distribution width (RBC) [Ratio] 13.2 % 11.6-14.6 [facility] Erythrocyte distribution wid th standard deviationOrdered By: Ayaz Hendrickson on 02-12-2025 Erythrocyte distribution width (RBC) [Ratio] 43.5 fl 35.1-43.9 [facility] Glomerular filtration rate ( GFR) estimation/1.73 sq m using serum, plasma, or whole bOrdered By: Ayaz Hendrickson on 02-12-2025 GFR/1.73 sq M.predicted among non-blacks MDRD (S/P/Bld) [Vol rate/Area] 18 mL/min/{1.73_m2} Low >60 [facility] Comment on above: mL/min/1.73m2 CKD-EP I Creatinine Equation (2020) Gram stainOrdered By: Vandana Bro on 02-12-2025 Microscopic observation Gram stain Nom (Unsp spec) [facility] H AND P Exam - Hospitaliston 02-12-2025 H&P Exam - Hospitalist [facility] Medical Records Department [address] [place] [address] H P Exam - Hospitalist 02/12/252012 MR#: [id number] Acct: [id number] Name: SAM VIDALES Rep #: [id number] : 1950 74 From: Vandana Bro MD PCP: [place] Hospital Status:ADM IN Location: ICU ICU01-1 HPI - General General Date of Admission: 02/12/25 Date of Service: 02/12/25 Chief Complaint: Fatigue, malaise, acute dyspnea/respiratory distress. HPI Narrative The patient is a 74 y/o M [place] patient w/ PMHx: CAD s/p CABG x 2016, CKD stage IV, HTN, HLD, Valvular Heart Disease, Diabetes mellitus type II and who presents to the [facility] ED on 02/12/2025 with general malaise and fatigue over the last several days brought in by EMS who noted upon their arrival at his home his pulse oximeter was 80% and he was very diaphoretic and pale and respiratory failure with intubation initiated with then transition to the ED for further evaluation. who is present does report that he has been very active for the last 2 to 3 days including several rounds of golf and carrying heavy salt bags with only complaint of generalized fatigue and malaise as well as sore muscles. Workup in the ED included T97.5, heart rate 79, BP 159/100, respiratory rate 35, initially 86% on a nonrebreather 15 L eventually intubated with most recent repeat vitals T97.4, heart rate 62, BP 93/49, respiratory rate 20, 99% ventilated, CBC with WC 11.7, hemoglobin 12.2, MCV 91.2, platelet 181 with left shift, unremarkable coags, ABG with pH 7.15, bicarb 21, O2 saturation 100%, pCO2 60.7, PO230 ventilated, CMP with At 18.1, anion gap 16, BUN/creatinine 56/3.36, GFR 18, glucose 224, AST/LT 71/80, initial troponin 146, lactic acid 1.2, NT proBNPII pending upon requested evaluation patient, urinalysis with cloudy appearing urine, specific gravity 1.015, protein 100, glucose thousand, negative ketone, occult blood 25, negative nitrite, negative leukocyte esterase with remainder of urinalysis pending upon request evaluation of patient, chest x-ray with appearance of mild vascular congestion with no obvious acute infiltrate, EKG with sinus rhythm with no acute evidence of ischemia with depressions in lead 4 and 5 no comparison, blood culture x 2 pending per ED, urine culture pending per ED, rapid SARS COVID/flu/RSV PCR negative. In the ED patient administered succinylcholine 100 mg IV x 1, etomidate 20 mg IV x 1, fentanyl 50 mcg IV x 1, Ativan a total of 2 mg IV in addition to initiated on propofol drip. HOME MEDICATIONS: Atorvastatin 40 mg nightly Aspirin 81 mg daily Ezetimibe 10 mg daily Insulin glargine 35 units subcu daily Isosorbide mononitrate extended release 30 mg p.o. daily Minoxidil 5 mg daily Coreg 25 mg p.o. twice daily Chlorthalidone 25 mg daily Empagliflozin 12.5 mg daily Dulaglutide 0.75 mg/0.5 mL 0.75 mg subcu weekly [facility] Medical History Former tobacco use Valvular heart disease CKD (chronic kidney disease), stage IV HLD (hyperlipidemia) HTN (hypertension) CAD (coronary artery disease) Medical History unable to obtain Allergy/AdvReac Type Severity Reaction Status Date / Time lisinopril AdvReac Mild Cough Verified 02/12/25 20:33 Family History (Updated 02/12/25 @ 20:[address] Vandana Bro MD) Sister Heart disease Hypertension Daughter Heart disease Hypertension Mother Heart disease Father Heart disease Family History unable to obtain Surgical History Hx of coronary artery bypass graft S/P laminectomy Surgical History unable to obtain Social History household members: spouse Smoking Status: Former smoker how long ago did patient quit smoking: Quit 1997. alcohol intake: current alcohol intake frequency: holidays/special occasions only substance use type: does not use ROS Review of Systems ROS Unobtainable: due to endotracheal tube Vital Signs Vital Signs Vital Signs: 02/12/25 18:45 02/12/25 18:49 02/12/25 18:50 Temperature 97.5 F L 97.5 F L Temperature Source Axillary Core Pulse Rate 79 63 Respiratory Rate 35 H 24 H Respiratory Effort Short of Breath Labored Accessory Muscle Use Retracting Respiratory Depth Deep Respiratory Pattern Tachypnea Blood Pressure 159/100 H 160/101 H Blood Pressure Mean 119 120 Pulse Ox 86 99 Oxygen Delivery Method Non-Rebreather Mechanical Ventilator Non-Rebreather Oxygen Flow Rate (L/min) 15 Fraction of Inspired Oxygen (FIO2) 02/12/25 18:51 02/12/25 18:55 02/12/25 19:19 Temperature 97.5 F L Temperature Source Core Pulse Rate 64 Respiratory Rate 17 Respiratory Effort Short of Breath Labo (more content not included)... Normal [facility] H&P Exam - Hospitalist Normal [facility] Hematocrit Auto (Bld) [Volum e fraction]Ordered By: Ayaz Hendrickson on 02-12-2025 Hematocrit (Bld) [Volume fraction] 37.2 % Low 40-54 [facility] Hemoglobin measurementOrdere d By: Ayaz Hendrickson on 02-12-2025 Hemoglobin (Bld) [Mass/Vol] 12.2 g/dL Low 13.0-16.5 [facility] Immature granulocytes/100 WB C Auto (Bld)Ordered By: Ayaz Hendrickson on 02-12-2025 Immature granulocytes/100 WBC (Bld) 0.600 % 0.0-0.9 [facility] Comment on above: IG% - Immature Granu locytes (promyelocytes, myelocytes and metamyelocytes) > 1% indicates that a LEFT SHIFT is Present. Influenza virus A and B and SARS-CoV-2 (COVID-19) and Respiratory syncytial virus RNAOrdered By: Ayaz Hendrickson on 02-12-2025 SARS-CoV-2 (COVID-19) RNA BRUCE+probe Ql (Unsp spec) [facility] International normalized rat io (INR) calculationOrdered By: Ayaz Hendrickson on 02-12-2025 INR Coag (Bld) [Relative time] 1.1 {INR} [facility] Ketones Test strip Ql (U)Ord ered By: Ayaz Hendrickson on 02-12-2025 Ketones Ql (U) Negative Negative [facility] L501.4021on 02-12-2025 Trop T High Sen 146 ng/L Invalid Interpretation Code <=22 [facility] Comment on above: Result Comment: Crit ical Result(s) Called SHUFF2 at: 1933 by: SONIADoostang??Results read back by same. Performed By: #### L 501.080 #### [facility] [address] [place], [place], [id number] Result Comment: Crit ical Result(s) Called SHUFF2 at: 1934 by:[employer]??Results read back by same. Performed By: #### L 300.3900, L500.4050, L100.0100, L503.6005, M200.1000, L501.4021, L300.4310 ####[facility] [address] [place], [address] Laboratory - Chemistry and C hemistry - challengeOrdered By: Ayaz Hendrickson on 02-12-2025 AST [Catalytic activity/Vol] 71 U/L High <38 [facility] Lactic acid measurementOrder ed By: Ayaz Hendrickson on 02-12-2025 Lactate [Moles/Vol] 1.2 mmol/L Normal 0.0-2.0 [facility] Comment on above: Order Comment: Y Performed By: #### L 501.080 #### [facility] [address] [place], [address] Order Comment: Y Performed By: #### L 300.3900, L500.4050, L100.0100, L503.6005, M200.1000, L501.4021, L300.4310 ####[facility] [address] [place], [address] M100.678on 02-12-2025 M100.678 Pending SARS-CoV-2 (COVID 19) Negative INFLUENZA A Negative INFLUENZA B Negative RSV PCR Negative Normal [facility] Comment on above: Performed By: #### L 501.080 #### [facility] [address] [place], [address] Performed By: #### M 100.678 ####[facility] [address] [place], [address] MCV (mean corpuscular volume ) determinationOrdered By: Ayaz Hendrickson on 02-12-2025 MCV (RBC) [Entitic vol] 91.2 fL 80-94 [facility] Magnesiumon 02-12-2025 Magnesium [Mass/Vol] 2.9 mg/dL High 1.5-2.2 [facility] Comment on above: Order Comment: Comme nts: may add to ED labs Performed By: #### L 501.080 #### [facility] [address] [place], [address] Order Comment: Comme nts: may add to ED labs Performed By: #### L 501.5200 ####[facility] [address] [place], [address] Magnesium measurement (mass/ volume)Ordered By: Vandana Bro on 02-12-2025 Magnesium (Unsp spec) [Mass/Vol] 2.9 mg/dL High 1.5-2.2 [facility] Mean corpuscular hemoglobin (MCH) determinationOrdered By: Ayaz Hendrickson on 02-12-2025 MCH (RBC) [Entitic mass] 29.9 pg 27.0-32.0 [facility] Mean corpuscular hemoglobin concentration (MCHC) determinationOrdered By: Ayaz Hendrickson on 02-12-2025 MCHC (RBC) [Mass/Vol] 32.8 g/dL 32-36 [facility] Mean platelet volume determi nationOrdered By: Ayaz Hendrickson on 02-12-2025 Platelet mean volume (Bld) [Entitic vol] 10.5 fL 6.2-12.0 [facility] Measurement, pHOrdered By: Crissy Bro on 02-12-2025 pH (Unsp spec) 7.33 [pH] Low 7.35-7.45 [facility] Measurement, pHOrdered By: Trae Hendrickson on 02-12-2025 pH (Unsp spec) 7.15 [pH] Low 7.35-7.45 [facility] Microbial respiratory cultur eOrdered By: Vandana Bro on 02-12-2025 Microorganism identified Cx Nom (Unsp spec) or Staphylococcus aureus isolated. [facility] Microscopic analysis of urin e for red blood cells (RBC)Ordered By: Ayaz Hendrickson on 02-12-2025 Microscopic analysis of urine for red blood cells (RBC) 0-5 SEEN /hpf 0-5 [facility] Monocyte percentageOrdered B y: Ayaz Hendrickson on 02-12-2025 Monocytes/100 WBC (Bld) 11.4 % High 0-10 [facility] Mucus LM Ql (Urine sed)Order ed By: Ayaz Hendrickson on 02-12-2025 Mucus Ql (Urine sed) 0 SEEN /hpf [facility] Nasal methicillin resistant Staphylococcus aureus (MRSA) DNA detection by PCROrdered By: Vandana Bro on 02-12-2025 MRSA DNA BRUCE+probe Ql (Nose) [facility] Natriuretic peptide.B prohor valentine N-Terminal [Mass/volume] in Serum or PlasmaOrdered By: Ayaz Hendrickson on 02-12-2025 Natriuretic peptide.B prohormone N-Terminal [Mass/Vol] 12257 pg/mL High <1800 [facility] Comment on above: Heart Failure Unlike ly: < 300 pg/mLHeart Failure Likely< 50 Years: > 450 pg/mL50-75 Years: > 900 pg/mL>75 Years: > 1800 pg/mL Neutrophil percentageOrdered By: Ayaz Hendrickson on 02-12-2025 Neutrophils/100 WBC (Bld) 70.0 % 47-70 [facility] Nitrite Test strip Ql (U)Ord ered By: Ayaz Hendrickson on 02-12-2025 Nitrite Ql (U) Negative Negative [facility] No Panel InformationOrdered By: Vandana Bro on 02-12-2025 Bedside Blood Gas PEEP 5 [facility] Blood Gas Respiration Rate 14 [facility] Blood Gas Sample Site R Radial [facility] Blood Gas Specimen Type ART [facility] Blood Gas Tidal Volume 450.0 mL [facility] Blood Gas Vent Mode [facility] Oxygen Delivery Device ET Tube [facility] ART [facility] R Radial [facility] AC [facility] ET Tube [facility] 450.0 mL [facility] 14 [facility] 5 [facility] No Panel InformationOrdered By: Ayaz Hendrickson on 02-12-2025 Bld Gas Crit Called To/Read Back By Yes [facility] Blood Gas Sample Site Not entered [facility] Blood Gas Specimen Type ART [facility] Blood Gas Vent Mode Not entered [facility] Oxygen Delivery Device Not entered [facility] Bedside Blood Gas PEEP 5 [facility] Bld Gas Crit Called To/Read Back By Yes [facility] Blood Gas Notified Time 19:30:20 [facility] Blood Gas Notified Whom Dr Hendrickson [facility] Blood Gas Respiration Rate 14 [facility] Blood Gas Tidal Volume 450.0 mL [facility] 19:30:[address] [facility] [address] Hendrickson [facility] Yes [facility] Nucleated red blood cell per centageOrdered By: Ayaz Hendrickson on 02-12-2025 Nucleated RBC/100 WBC (Bld) [Ratio] 0 % 0-5 [facility] Partial Thromboplast Timeon 02-12-2025 aPTT Coag (Bld) [Time] 30.4 s Normal 24.1-36.2 [facility] Comment on above: Performed By: #### L 501.080 #### [facility] [address] [place], [address] Performed By: #### L 300.3900, L500.4050, L100.0100, L503.6005, M200.1000, L501.4021, L300.4310 ####[facility] [address] [place], [address] Platelet countOrdered By: Carlos Hendrickson on 02-12-2025 Platelets (Bld) [#/Vol] 181 10*3/uL 150-450 [facility] Potassium measurement (mass/ volume)Ordered By: Ayaz Hendrickson on 02-12-2025 Potassium (Unsp spec) [Mass/Vol] 4.6 mmol/L 3.3-5.1 [facility] Pro- Brain NATRIURETIC PEPTI Raul 02-12-2025 Natriuretic peptide B (Bld) [Mass/Vol] 75868 pg/mL High <=1800 [facility] Comment on above: Result Comment: Hear t Failure Unlikely: < 300 pg/mL Heart Failure Likely < 50 Years: > 450 pg/mL 50-75 Years: > 900 pg/mL >75 Years: > 1800 pg/mL Performed By: #### L 501.080 #### [facility] [address] [place], [address] Result Comment: Hear t Failure Unlikely: < 300 pg/mLHeart Failure Likely< 50 Years: > 450 pg/mL50-75 Years: > 900 pg/mL>75 Years: > 1800 pg/mL Performed By: #### L 503.7505 ####[facility] [address] [place], [address] Protein Test strip Ql (U)Ord ered By: Ayaz Hendrickson on 02-12-2025 Protein Ql (U) 100 mg/dl High Negative [facility] Prothrombin Time w/INRon INR Coag (PPP) [Relative time] 1.1 {INR} Normal [facility] Comment on above: Performed By: #### L 501.080 #### [facility] [address] [place], [address] Performed By: #### L 300.3900, L500.4050, L100.0100, L503.6005, M200.1000, L501.4021, L300.4310 ####[facility] [address] [place], [address] PT Coag (PPP) [Time] 14.2 s Normal 11.7-14.9 [facility] Comment on above: Performed By: #### L 501.080 #### [facility] [address] [place], [address] Performed By: #### L 300.3900, L500.4050, L100.0100, L503.6005, M200.1000, L501.4021, L300.4310 ####[facility] [address] [place], [address] Prothrombin timeOrdered By: Ayaz Hendrickson on 02-12-2025 PT Coag (PPP) [Time] 14.2 s 11.7-14.9 [facility] RBC Auto (Bld) [#/Vol]Ordere d By: Ayaz Hendrickson on 02-12-2025 RBC (Bld) [#/Vol] 4.08 10*6/uL Low 4.6-6.2 [facility] Respiratory pathogens detect ion panel by molecular detection methodOrdered By: Vandana Bro on 02-12-2025 Respiratory pathogens DNA and RNA panel BRUCE+probe (Resp) [facility] Serum creatinine measurement (mass/volume)Ordered By: Ayaz Hendrickson on 02-12-2025 Creatinine [Mass/Vol] 3.36 mg/dL High 0.70-1.20 [facility] Serum globulin measurementOr dered By: Ayaz Hendrickson on 02-12-2025 Globulin (S) [Mass/Vol] 3.3 g/dL 2.2-4.2 [facility] Serum glucose measurement (m ass/volume)Ordered By: Ayaz Hendrickson on 02-12-2025 Glucose [Mass/Vol] 224 mg/dL High 70-99 [facility] Serum or plasma alanine nina otransferase (ALT) measurementOrdered By: yAaz Hendrickson on 02-12-2025 ALT [Catalytic activity/Vol] 80 U/L High <47 [facility] Serum or plasma albumin tanya urement (mass/volume)Ordered By: Ayaz Hendrickson on 02-12-2025 Albumin [Mass/Vol] 4.5 g/dL 3.4-4.8 [facility] Serum or plasma albumin/glob ulin mass ratioOrdered By: Ayaz Hendrickson on 02-12-2025 Albumin/Globulin [Mass ratio] 1.4 {ratio} 0.9-2.4 [facility] Serum or plasma alkaline juan manuel sphatase measurementOrdered By: Ayaz Hendrickson on 02-12-2025 ALP [Catalytic activity/Vol] 126 U/L 40-129 [facility] Serum or plasma calcium tanya urement (mass/volume)Ordered By: Ayaz Hendrickson on 02-12-2025 Calcium [Mass/Vol] 9.1 mg/dL 7.6-11.0 [facility] Serum or plasma urea nitroge n measurement (mass/volume)Ordered By: Ayaz Hendrickson on 02-12-2025 Urea nitrogen [Mass/Vol] 56 mg/dL High 4-19 [facility] Sodium levelOrdered By: Ayaz Hendrickson on 02-12-2025 Sodium [Moles/Vol] 138 mmol/L 133-145 [facility] Squamous epithelial cells de tection in urine sediment by light microscopyOrdered By: Ayaz Hendrickson on 02-12-2025 Epithelial cells.squamous LM Ql (Urine sed) 0-5 SEEN /hpf 0-5 [facility] Total carbon dioxide measure mentOrdered By: Vandana Bro on 02-12-2025 CO2 [Moles/Vol] 22 mmol/L [facility] Total carbon dioxide measure mentOrdered By: Ayaz Hendrickson on 02-12-2025 CO2 [Moles/Vol] 23 mmol/L [facility] Total proteinOrdered By: Miko Hendrickson on 02-12-2025 Protein [Mass/Vol] 7.8 g/dL 5.9-8.4 [facility] Troponin T HS 2 HRon 025 Trop T High Sen 156 ng/L Invalid Interpretation Code <=22 [facility] Comment on above: Result Comment: Crit ical Result(s) Called ICU at: 2124 by: MAYTE??Results read back by same. Performed By: #### L 501.080 #### [facility] [address] [place], [place], [id number] Result Comment: Crit ical Result(s) Called ICU at: 2124 by:MAYTE??Results read back by same. Performed By: #### L 499.0042 ####[facility] [address] [place], [place], [address] Troponin T.cardiac [Mass/vol ume] in Serum or Plasma by High sensitivity methodOrdered By: Ayaz Hendrickson on 02-12-2025 Troponin T.cardiac High sensitivity method [Mass/Vol] 167 ng/L High <22 [facility] Comment on above: Hemolysis present, R esults could be affected. Critical Result(s) Called at 0028: by: ROXY ARORA Results read back by same. Troponin T.cardiac High sensitivity method [Mass/Vol] 156 ng/L High <22 [facility] Comment on above: Critical Result(s) C alled ICU at: 2124 by: MAYTE Results read back by same. Troponin T.cardiac High sensitivity method [Mass/Vol] 146 ng/L High <22 [facility] Comment on above: Critical Result(s) C alled SHUFF2 at: 1934 by: MAYTE Results read back by same. Urinalysis, Completeon 02-12 BACTERIA 1+ /hpf Normal None Seen [facility] Comment on above: Order Comment: BRIA TER SPECIMEN Performed By: #### L 9000.0800 #### [facility] [address] [place], [place], [id number] Order Comment: BRIA TER SPECIMEN Performed By: #### M 100.2200, L400.0001 ####[facility] [address] [place], [address] RBC 0-5 SEEN Normal 0-5 [facility] Comment on above: Order Comment: BRIA TER SPECIMEN Performed By: #### L 9000.0800 #### [facility] [address] [place], [address] Order Comment: BRIA TER SPECIMEN Performed By: #### M 100.2200, L400.0001 ####[facility] [address] [place], [address] EPI,SQUAMOUS 0-5 SEEN Normal 0-5 [facility] Comment on above: Order Comment: BRIA TER SPECIMEN Performed By: #### L 9000.0800 #### [facility] [address] [place], [address] Order Comment: BRIA TER SPECIMEN Performed By: #### M 100.2200, L400.0001 ####[facility] [address] [place], [address] WBC 0-5 SEEN Normal 0-5 [facility] Comment on above: Order Comment: BRIA TER SPECIMEN Performed By: #### L 9000.0800 #### [facility] [address] [place], [address] Order Comment: BRIA TER SPECIMEN Performed By: #### M 100.2200, L400.0001 ####[facility] [address] [place], [address] Mucus Ql (Urine sed) 0 SEEN Normal [facility] Comment on above: Order Comment: BRIA TER SPECIMEN Performed By: #### L 9000.0800 #### [facility] [address] [place], [address] Order Comment: BRIA TER SPECIMEN Performed By: #### M 100.2200, L400.0001 ####[facility] [address] [place], [address] Urine clarityOrdered By: Miko Hendrickson on 02-12-2025 Clarity (U) Sl. Cloudy Clear [facility] Urine color determinationOrd ered By: Ayaz Hendrickson on 02-12-2025 Color (U) Straw Yellow [facility] Urine cultureOrdered By: Miko Hendrickson on 02-12-2025 Bacteria identified Cx Nom (U) Culture exhibits no growth. [facility] Urine glucose detectionOrder ed By: Ayaz Hendrickson on 02-12-2025 Glucose Ql (U) 1000 mg/dl High Normal [facility] Urine leukocyte esterase det ection by dipstickOrdered By: Ayaz Hendrickson on 02-12-2025 Leukocyte esterase Test strip Ql (U) Negative Negative [facility] Urine pHOrdered By: Ayaz sheridan on 02-12-2025 pH (U) 5.0 [pH] 5.0 - 8.0 [facility] Urine sediment bacteria coun t by microscopy (number/high power field)Ordered By: Ayaz Hendrickson on 02-12-2025 Bacteria LM.HPF (Urine sed) [#/Area] 1 /[HPF] None Seen [facility] Urine specific gravity measu rementOrdered By: Ayaz Hendrickson on 02-12-2025 Specific gravity (U) [Rel density] 1.015 1.002-1.030 [facility] Urine urobilinogen measureme ntOrdered By: Ayaz Hendrickson on 02-12-2025 Urobilinogen Ql (U) Normal mg/dl Normal [facility] White blood cell (WBC) count Ordered By: Ayaz Hendrickson on 02-12-2025 WBC (Bld) [#/Vol] 11.7 10*3/uL High 4.4-11.0 [facility] White blood cell countOrdere d By: Ayaz Hendrickson on 02-12-2025 White blood cell count 0-5 SEEN /hpf 0-5 [facility] Cardiology Visit Reporton Cardiology Visit Report Normal [facility] Basic Metabolic Profile (BMP )on 07-24-2024 BUN/CRE 14.7 RATIO Normal 10-20 [facility] Comment on above: Performed By: #### L 100.0100, L500.2500 ####[facility] [address] [place], [address] CA,Total 9.7 mg/dL Normal 8.5-10.1 [facility] Comment on above: Performed By: #### L 100.0100, L500.2500 ####[facility] [address] [place], [address] Chloride [Moles/Vol] 111 mmol/L High 98-107 [facility] Comment on above: Performed By: #### L 100.0100, L500.2500 ####[facility] [address] [place], [address] CO2 [Moles/Vol] 27.0 mmol/L Normal 21.0-32.0 [facility] Comment on above: Performed By: #### L 100.0100, L500.2500 ####[facility] [address] [place], [address] Creatinine [Mass/Vol] 2.85 mg/dL High 0.70-1.30 [facility] Comment on above: Result Comment: The validity of the calculated GFR GFRAA in patients over70 years has not been determined. Clinical correlation isessential. Performed By: #### L 100.0100, L500.2500 ####[facility] [address] [place], [address] ECRCL 22.40 ml/min Normal [facility] Comment on above: Performed By: #### L 100.0100, L500.2500 ####[facility] [address] [place], [address] EST GFR - AA 28 mL/min Low >60 [facility] Comment on above: Result Comment: Afri can Nepalese GFR Calc Performed By: #### L 100.0100, L500.2500 ####[facility] [address] [place], [address] GAP 6 Normal 5-15 [facility] Comment on above: Performed By: #### L 100.0100, L500.2500 ####[facility] [address] [place], [address] GFR/1.73 sq M.predicted among non-blacks MDRD (S/P/Bld) [Vol rate/Area] 23 mL/min/{1.73_m2} Low >60 [facility] Comment on above: Result Comment: Non- GFR Calc Performed By: #### L 100.0100, L500.2500 ####[facility] [address] [place], [address] Glucose [Mass/Vol] 65 mg/dL Low 74-106 [facility] Comment on above: Performed By: #### L 100.0100, L500.2500 ####[facility] [address] [place], [address] Potassium [Moles/Vol] 4.2 mmol/L Normal 3.5-5.1 [facility] Comment on above: Performed By: #### L 100.0100, L500.2500 ####[facility] [address] [place], [address] Sodium [Moles/Vol] 143 mmol/L Normal 136-145 [facility] Comment on above: Performed By: #### L 100.0100, L500.2500 ####[facility] [address] [place], [address] Urea nitrogen [Mass/Vol] 42 mg/dL High 7-18 [facility] Comment on above: Performed By: #### L 100.0100, L500.2500 ####[facility] [address] [place], [address] Bedside Glucoseon 01-17-2025 FINGERSTICK GLU 238 mg/dL High 74-106 [facility] Comment on above: Result Comment: KURTIS GEMENT OF PATIENT CARE PER NURSING PROTOCOL Performed By: #### L 501.080 ####[facility] [address] [place], [address] FINGERSTICK GLU 227 mg/dL High 74-106 [facility] Comment on above: Result Comment: KURTIS GEMENT OF PATIENT CARE PER NURSING PROTOCOL Performed By: #### L 501.080 ####[facility] [address] [place], [address] FINGERSTICK GLU 79 mg/dL Normal 74-106 [facility] Comment on above: Result Comment: KURTIS GEMENT OF PATIENT CARE PER NURSING PROTOCOL Performed By: #### L 501.080 ####[facility] [address] [place], [address] FINGERSTICK GLU 48 mg/dL Low 74-106 [facility] Comment on above: Result Comment: KURTIS GEMENT OF PATIENT CARE PER NURSING PROTOCOL Performed By: #### L 501.080 ####[facility] [address] [place], [address] FINGERSTICK GLU 105 mg/dL Normal 74-106 [facility] Comment on above: Result Comment: KURTIS GEMENT OF PATIENT CARE PER NURSING PROTOCOL Performed By: #### L 501.080 ####[facility] [address] [place], [address] FINGERSTICK GLU 54 mg/dL Low 74-106 [facility] Comment on above: Result Comment: KURTIS GEMENT OF PATIENT CARE PER NURSING PROTOCOL Performed By: #### L 501.080 ####[facility] [address] [place], [address] CBC W/Diff, Automatedon - Absolute Lymph 2.03 X10 3/uL Normal 0.83-4.51 [facility] Comment on above: Performed By: #### L 100.0100, L500.2500 ####[facility] [address] [place], [address] Absolute Neut 6.3 X10 3/uL Normal 2.0-7.7 [facility] Comment on above: Performed By: #### L 100.0100, L500.2500 ####[facility] [address] [place], [address] Basophils/100 WBC (Bld) 0.8 % Normal 0-1 [facility] Comment on above: Performed By: #### L 100.0100, L500.2500 ####[facility] [address] [place], [address] Eosinophils/100 WBC (Bld) 5.2 % High 0-5 [facility] Comment on above: Performed By: #### L 100.0100, L500.2500 ####[facility] [address] [place], [address] Erythrocyte distribution width (RBC) [Ratio] 12.0 % Normal 11.6-14.6 [facility] Comment on above: Performed By: #### L 100.0100, L500.2500 ####[facility] [address] [place], [address] Hematocrit (Bld) [Volume fraction] 45.8 % Normal 40-54 [facility] Comment on above: Performed By: #### L 100.0100, L500.2500 ####[facility] [address] [place], [address] Hemoglobin (Bld) [Mass/Vol] 15.5 g/dL Normal 13.0-16.5 [facility] Comment on above: Performed By: #### L 100.0100, L500.2500 ####[facility] [address] [place], [address] IG% 0.400 Normal 0.0-0.9 [facility] Comment on above: Result Comment: IG% - Immature Granulocytes (promyelocytes, myelocytes andmetamyelocytes) > 1% indicates that a LEFT SHIFT is Present. Performed By: #### L 100.0100, L500.2500 ####[facility] [address] [place], [address] Lymphocytes/100 WBC (Bld) 20.8 % Normal 19-41 [facility] Comment on above: Performed By: #### L 100.0100, L500.2500 ####[facility] [address] [place], [address] MCH (RBC) [Entitic mass] 30.2 pg Normal 27.0-32.0 [facility] Comment on above: Performed By: #### L 100.0100, L500.2500 ####[facility] [address] [place], [address] MCHC (RBC) [Mass/Vol] 33.8 g/dL Normal 32-36 [facility] Comment on above: Performed By: #### L 100.0100, L500.2500 ####[facility] [address] [place], [address] MCV (RBC) [Entitic vol] 89.3 fL Normal 80-94 [facility] Comment on above: Performed By: #### L 100.0100, L500.2500 ####[facility] [address] [place], [address] Monocytes/100 WBC (Bld) 8.2 % Normal 0-10 [facility] Comment on above: Performed By: #### L 100.0100, L500.2500 ####[facility] [address] [place], [address] Neutrophils/100 WBC (Bld) 64.6 % Normal 47-70 [facility] Comment on above: Performed By: #### L 100.0100, L500.2500 ####[facility] [address] [place], [address] Nucleated RBC (Bld) [#/Vol] 0 10*3/uL Normal 0-5 [facility] Comment on above: Performed By: #### L 100.0100, L500.2500 ####[facility] [address] [place], [address] Platelet mean volume (Bld) [Entitic vol] 9.3 fL Normal 6.2-12.0 [facility] Comment on above: Performed By: #### L 100.0100, L500.2500 ####[facility] [address] [place], [address] Platelets (Bld) [#/Vol] 218 10*3/uL Normal 150-450 [facility] Comment on above: Performed By: #### L 100.0100, L500.2500 ####[facility] [address] [place], [address] RBC (Bld) [#/Vol] 5.13 10*6/uL Normal 4.6-6.2 [facility] Comment on above: Performed By: #### L 100.0100, L500.2500 ####[facility] [address] [place], [address] RDW SD 39.3 fl Normal 35.1-43.9 [facility] Comment on above: Performed By: #### L 100.0100, L500.2500 ####[facility] [address] [place], [address] WBC (Bld) [#/Vol] 9.7 10*3/uL Normal 4.4-11.0 [facility] Comment on above: Performed By: #### L 100.0100, L500.2500 ####[facility] [address] [place], [address] CORTISOL SERUMon 07-24-2024 CORTISOL 34.10 ug/dL High 3.44-22.45 [facility] Comment on above: Result Comment: Adul t (AM) 5.27 - 22.45 ug/dL Adult (PM) 3.44 - 16.76 ug/dL Performed By: #### L 501.9520, L509.6000 ####[facility] [address] [place], [address] CPK Total, Creatine Kinaseon 07-24-2024 CPK TOTAL 231 U/L Normal 39-308 [facility] Comment on above: Order Comment: 'TROP ' Serial specimen #1, #2 or #3: 1 Performed By: #### L 501.4020, L501.3620 ####[facility] [address] [place], [address] Chest 1 View (Portable)on Chest 1 View (Portable) Normal [facility] Emergency Department Summary on 07-24-2024 Emergency Department Summary Normal [facility] L501.4020on 07-24-2024 TROPONIN-I HS 27 pg/mL Normal 3.0-78.0 [facility] Comment on above: Order Comment: 'TROP ' Serial specimen #1, #2 or #3: 1 Result Comment: Plea se Note: New Test Units and Gender Specific Reference Ranges. For more information see Policy Stat Procedure Sargents High Sensitivity Troponin (TNIH) and attachments. Performed By: #### L 501.4020, L501.3620 ####[facility] [address] [place], [address] Thyroid Stim Hormone (TSH)on 07-24-2024 TSH 2.180 uIU/mL Normal 0.358-3.740 [facility] Comment on above: Performed By: #### L 501.9520, L509.6000 ####[facility] [address] [place], [address] Urinalysis, Completeon 07-24 EPI,RENAL 0-5 SEEN Normal 0-5 [facility] Comment on above: Order Comment: HECTOR CTOR TO SPECIFY Performed By: #### L 400.0001 ####[facility] [address] [place], [address] RBC 5-10 SEEN Normal 0-5 [facility] Comment on above: Order Comment: HECTOR CTOR TO SPECIFY Performed By: #### L 400.0001 ####[facility] [address] [place], [address] WBC 0-5 SEEN Normal 0-5 [facility] Comment on above: Order Comment: HECTOR CTOR TO SPECIFY Performed By: #### L 400.0001 ####[facility] [address] [place], [address] BACTERIA 0 SEEN Normal None Seen [facility] Comment on above: Order Comment: HECTOR CTOR TO SPECIFY Performed By: #### L 400.0001 ####[facility] [address] [place], [address] EPI,SQUAMOUS 0 SEEN Normal 0-5 [facility] Comment on above: Order Comment: HECTOR CTOR TO SPECIFY Performed By: #### L 400.0001 ####[facility] [address] [place], [address] Mucus Ql (Urine sed) 0 SEEN Normal [facility] Comment on above: Order Comment: HECTOR CTOR TO SPECIFY Performed By: #### L 400.0001 ####[facility] [address] [place], [address] 12 Lead EKG performed by [facility] on 04-14-2024 12 Lead EKG performed by [facility] Normal [facility] Cardiology Visit Reporton Cardiology Visit Report Normal [facility] 08-23-2022 [facility] Telephone (Twijector) SAM VIDALES ([id number]) 1950 M Date Time Provider Department 08/23/22 JESS BAKER During your visit today, we recorded the following information about you: Shara Bragg RN 08/23/2022 12:53 PM Signed Patient had his [facility] appt yesterday for hernia surgery tomorrow. Patient's HgbA1C is 9.0 and is glucose was 308. Please advise if ok to proceed with surgery tomorrow. Thank you. Shara PACC TRACEE Payne PA-C 08/23/2022 2:02 PM Signed If blood glucose is elevated pre-op his surgery potentially could be cancelled. OK to proceed as scheduled. Allergies As of Date: 08/23/2022 Noted Allergy Reaction environmental [Other] 08/05/2006 9 - Itching Comments: hayfever,sneezing,wate ry eyes LISINOPRIL 06/07/2006 3 - Cough 4 - Hives Date Reviewed: 08/22/2022 Reviewed by: Noam Rodriguez APRN.TO[employer] CUTTER [employer]UTCH - Fully Assessed Reason for Visit: Results, Lab [1201] Prescriptions as of 08/23/2022 - omeprazole (PRILOSEC) 20 mg capsule Take 2 capsules by mouth once daily. - isosorbide mononitrate ER (IMDUR) 30 mg 24 hr tablet Take 30 mg by mouth once daily. - minoxidil (LONITEN) 2.5 mg tablet Take 5 mg by mouth once daily. - chlorthalidone (HYGROTON) 25 mg tablet Take 25 mg by mouth once daily. - ezetimibe (ZETIA) 10 mg tablet Take 10 mg by mouth once daily. - semaglutide (OZEMPIC) 0.25 mg or 0.5 mg(2 mg/1.5 mL) pen injector INJECT 0.5MG SUBCUTANEOUSLY EVERY WEEK FOR DIABETES AND BLOOD SUGAR CONTROL. KEEP REFRIGERATED, HOWEVER, MAY BE KEPT AT ROOM TEMPERATURE FOR UP TO 56 DAYS REPLACES ALOGLIPTIN, GLIPIZIDE SA, AND NOVOLOG (ASPART INSULIN) - ferrous sulfate 325 mg (65 mg iron) tablet q 24 HR. - acetaminophen (TYLENOL) 325 mg tablet Take 2 tablets by mouth every 6 hours as needed for Pain or Fever. - gabapentin (NEURONTIN) 300 mg capsule Take 2 capsules by mouth three times daily for 335 days. - docusate sodium (COLACE) 100 mg capsule Take 1 capsule by mouth twice daily. - senna (SENOKOT) 8.6 mg tab Take 2 tablets by mouth once daily as needed (Constipation). - aspirin, enteric coated (ASPIRIN, ENTERIC COATED) 81 mg EC tablet Take 2 tablets by mouth once daily. - carvedilol (COREG) 25 mg tablet Take 25 mg by mouth twice daily with meals. - insulin glargine (LANTUS U-100 INSULIN) 100 unit/mL injection Inject 22 Units subcutaneously daily at bedtime. [facility]. - amLODIPine (NORVASC) 5 mg tablet Take 10 mg by mouth once daily. - atorvastatin (LIPITOR) 20 mg tablet Take 40 mg by mouth daily at bedtime. [facility]. Meds Comments as of 02/22/2022: Patient to call in medications to update Problem List As Of Date 08/23/2022 Noted Resolved Type 2 diabetes mellitus with stage 3 chronic k* Other and Unspecified Hyperlipidemia [E78.5] 01/27/2010 BPH without urinary obstruction [N40.0] Unspecified hemorrhoids without mention of comp* 02/09/2016 Anemia, unspecified [D64.9] 02/09/2016 Acute gastritis without mention of hemorrhage [*09/04/2005 02/09/2016 Chronic pain of left knee [M25.562, G89.29] 10/03/2005 Labyrinthitis, unspecified [H83.09] 08/05/2006 02/09/2016 Chronic obstructive pulmonary disease with acut*09/15/2007 Hyperlipidemia [E78.5] 09/02/2009 Hearing loss [H91.90] 05/23/2010 Overweight (BMI 25.0-29.9) [E66.3] 03/02/2013 Undiagnosed cardiac murmurs [R01.1] 03/02/2013 02/09/2016 Coronary artery disease involving [place] sue*02/09/2016 CKD (chronic kidney disease) stage 3, GFR 30-59*02/09/2016 Aortic stenosis, mild [I35.0] 02/09/2016 Colon cancer screening [Z12.11] 04/12/2016 04/12/2016 S/P CABG x 4 [Z95.1] 08/06/2016 Lumbar stenosis with neurogenic claudication [M*11/19/2017 01/23/2018 Lumbar spondylosis [M47.816] 12/04/2017 S/P lumbar laminectomy [Z98.890] 12/04/2017 Acute postoperative pain [G89.18] 12/04/2017 01/23/2018 Incidental durotomy [G97.41] 12/04/2017 Radiculopathy, lumbar region [M54.16] 07/13/2019 GERD (gastroesophageal reflux disease) [K21.9] 08/22/2022 TATI (iron deficiency anemia) [D50.9] 08/22/2022 Encounter Status:Closed by [facility] AMBROCIOSAM INIGUEZ ([id number]) 1950 M Date Time Provider Department 08/23/22 JESS BAKER During your visit today, we recorded the following information about you: Shara Bragg RN 08/23/2022 1:35 PM Signed Patient is scheduled for hernia repair tomorrow 08/24/2022. Patient had his PACC appointment yesterday and his HgbA1C is 9.0 and glucose 308. Please advise if ok to proceed. Shara Bragg RN PACC RN Lanie Thomas 08/23/2022 3:34 PM Signed Jess Baker MD You; Shara Bragg RN; Cheryl Payne PA-C; Caty Jordan MD 48 minutes ago (2:44 PM) I would cancel him and have him see his PCP for better blood sugar control Allergies As of Date: 08/23/2022 Noted Allergy Reaction environmental [Other] 08/05/2006 9 - Itching Comments: hayfever,sneezing,wate ry eyes LISINOPRIL 06/07/2006 3 - Cough 4 - Hives Date Reviewed: 08/22/2022 Reviewed by: Noam Rodriguez APRN.TO[employer] CUT[employer]CH - Fully Assessed Reason for Visit: Results, Lab [1201] Prescriptions as of 08/23/2022 - omeprazole (PRILOSEC) 20 mg capsule Take 2 capsules by mouth once daily. - isosorbide mononitrate ER (IMDUR) 30 mg 24 hr tablet Take 30 mg by mouth once daily. - minoxidil (LONITEN) 2.5 mg tablet Take 5 mg by mouth once daily. - chlorthalidone (HYGROTON) 25 mg tablet Take 25 mg by mouth once daily. - ezetimibe (ZETIA) 10 mg tablet Take 10 mg by mouth once daily. - semaglutide (OZEMPIC) 0.25 mg or 0.5 mg(2 mg/1.5 mL) pen injector INJECT 0.5MG SUBCUTANEOUSLY EVERY WEEK FOR DIABETES AND BLOOD SUGAR CONTROL. KEEP REFRIGERATED, HOWEVER, MAY BE KEPT AT ROOM TEMPERATURE FOR UP TO 56 DAYS REPLACES ALOGLIPTIN, GLIPIZIDE SA, AND NOVOLOG (ASPART INSULIN) - ferrous sulfate 325 mg (65 mg iron) tablet q 24 HR. - acetaminophen (TYLENOL) 325 mg tablet Take 2 tablets by mouth every 6 hours as needed for Pain or Fever. - gabapentin (NEURONTIN) 300 mg capsule Take 2 capsules by mouth three times daily for 335 days. - docusate sodium (COLACE) 100 mg capsule Take 1 capsule by mouth twice daily. - senna (SENOKOT) 8.6 mg tab Take 2 tablets by mouth once daily as needed (Constipation). - aspirin, enteric coated (ASPIRIN, ENTERIC COATED) 81 mg EC tablet Take 2 tablets by mouth once daily. - carvedilol (COREG) 25 mg tablet Take 25 mg by mouth twice daily with meals. - insulin glargine (LANTUS U-100 INSULIN) 100 unit/mL injection Inject 22 Units subcutaneously daily at bedtime. [facility]. - amLODIPine (NORVASC) 5 mg tablet Take 10 mg by mouth once daily. - atorvastatin (LIPITOR) 20 mg tablet Take 40 mg by mouth daily at bedtime. [facility]. Meds Comments as of 02/22/2022: Patient to call in medications to update Problem List As Of Date 08/23/2022 Noted Resolved Type 2 diabetes mellitus with stage 3 chronic k* Other and Unspecified Hyperlipidemia [E78.5] 01/27/2010 BPH without urinary obstruction [N40.0] Unspecified hemorrhoids without mention of comp* 02/09/2016 Anemia, unspecified [D64.9] 02/09/2016 Acute gastritis without mention of hemorrhage [*09/04/2005 02/09/2016 Chronic pain of left knee [M25.562, G89.29] 10/03/2005 Labyrinthitis, unspecified [H83.09] 08/05/2006 02/09/2016 Chronic obstructive pulmonary disease with acut*09/15/2007 Hyperlipidemia [E78.5] 09/02/2009 Hearing loss [H91.90] 05/23/2010 Overweight (BMI 25.0-29.9) [E66.3] 03/02/2013 Undiagnosed cardiac murmurs [R01.1] 03/02/2013 02/09/2016 Coronary artery disease involving [place]*02/09/2016 CKD (chronic kidney disease) stage 3, GFR 30-59*02/09/2016 Aortic stenosis, mild [I35.0] 02/09/2016 Colon cancer screening [Z12.11] 04/12/2016 04/12/2016 S/P CABG x 4 [Z95.1] 08/06/2016 Lumbar stenosis with neurogenic claudication [M*11/19/2017 01/23/2018 Lumbar spondylosis [M47.816] 12/04/2017 S/P lumbar laminectomy [Z98.890] 12/04/2017 Acute postoperative pain [G89.18] 12/04/2017 01/23/2018 Incidental durotomy [G97.41] 12/04/2017 Radiculopathy, lumbar region [M54.16] 07/13/2019 GERD (gastroesophageal reflux disease) [K21.9] 08/22/2022 TATI (iron deficiency anemia) [D50.9] 08/22/2022 Encounter Status:Closed by SHARA BRAGG on 08/23/22 Normal [facility] Basic metabolic 2000 panelon 08-22-2022 Anion gap [Moles/Vol] 10 mmol/L Normal 9-18 [facility] Comment on above: Order Comment: Speci men Type: BLOOD SPECIMENOrdering Facility: [facility] Address: [address] [place] [address] Performed By: #### 2 4321-2 ####[facility] MILLTOWTRINIDADLIA [id number] [place] [address] [place] Calcium [Mass/Vol] 8.7 mg/dL Normal 8.5-10.2 [facility] Comment on above: Order Comment: Speci men Type: BLOOD SPECIMENOrdering Facility: [facility] Address: [address] [place] [address] Performed By: #### 2 4321-2 ####[facility] MILLWNCLIA [id number] [place] [address] [place] Chloride [Moles/Vol] 98 mmol/L Normal 97-105 [facility] Comment on above: Order Comment: Speci men Type: BLOOD SPECIMENOrdering Facility: [facility] Address: [address] [place] [address] Performed By: #### 2 4321-2 ####[facility] MILLWNCLIA [id number] [place] [address] [place] CO2 [Moles/Vol] 27 mmol/L Normal 22-30 [facility] Comment on above: Order Comment: Speci men Type: BLOOD SPECIMENOrdering Facility: [facility] Address: [address] [place] [address] Performed By: #### 2 4321-2 ####[facility] MILLTOWNCLIA [id number] [place] [address] [place] Creatinine [Mass/Vol] 2.30 mg/dL High 0.73-1.22 [facility] Comment on above: Order Comment: Re[place]as Type: BLOOD SPECIMENOrdering Facility: [facility] Address: [address] [place] [address] Performed By: #### 2 4321-2 ####[facility] [id number] [place] [address] [place] ESTIMATED GLOMERULAR FILTRATION RATE 29 mL/min/1.73m??? Low >=60 [facility] Comment on above: Order Comment: [place] Type: BLOOD SPECIMENOrdering Facility: [facility] Address: [address] [place] [address] Result Comment: Li mated Glomerular Filtration Rate (eGFR) is calculated using the 2020 CKD-EPI creatinine equation. This equation utilizes serum creatinine, sex, and age as parameters. The creatinine assay has traceable calibration to isotope dilution-mass spectrometry. Refer to KDIGO guidelines for clinical interpretation. In patients with unstable renal function, e.g. those with acute kidney injury, the eGFR may not accurately reflect actual GFR. Performed By: #### 2 4321-2 ####[facility] [id number] [place] [address] [place] Glucose [Mass/Vol] 308 mg/dL High 74-99 [facility] Comment on above: Order Comment: [place] Type: BLOOD SPECIMENOrdering Facility: [facility] Address: [address] [place] [address] Result Comment: The [place] [employer] (ADA) provides guidance for cutoff values for fasting glucose and random glucose. The ADA defines fasting as no caloric intake for at least 8 hours. Fasting plasma glucose results between 100 to 125 [...] Standards of Medical Care in Diabetes 2016, [place] [employer]. Diabetes Care. 2016.39(Suppl 1). Performed By: #### 2 4321-2 ####[facility] HCONGKIRKVILLENCLIA [id number] [place] [address] [place] Potassium [Moles/Vol] 4.7 mmol/L Normal 3.7-5.1 [facility] Comment on above: Order Comment: Speci men Type: BLOOD SPECIMENOrdering Facility: [facility] Address: [address] [place] [address] Performed By: #### 2 4321-2 ####[facility] [id number] [place] [address] [place] Sodium [Moles/Vol] 135 mmol/L Low 136-144 [facility] Comment on above: Order Comment: Speci men Type: BLOOD SPECIMENOrdering Facility: [facility] Address: [address] [place] [address] Performed By: #### 2 4321-2 ####[facility] [id number] [place] [address] [place] Urea nitrogen [Mass/Vol] 34 mg/dL High 9-24 [facility] Comment on above: Order Comment: Speci men Type: BLOOD SPECIMENOrdering Facility: [facility] Address: [address] [place] [address] Performed By: #### 2 4321-2 ####[facility] [id number] [place] [address] [place] Anion gap [Moles/Vol] 10 mmol/L 9 - 18 mmol/L [facility] Calcium [Mass/Vol] 8.7 mg/dL 8.5 - 10. 2 mg/dL [facility] Chloride [Moles/Vol] 98 mmol/L 97 - 10 5 mmol/L [facility] CO2 [Moles/Vol] 27 mmol/L 22 - 30 mmol/L [facility] Creatinine [Mass/Vol] 2.30 mg/dL High 0.73 - 1.22 mg/dL [facility] Estimated Glomerular Filtration Rate 29 mL/min/1.73m Low >=60 mL/min/1.73m [facility] Glucose [Mass/Vol] 308 mg/dL High 74 - 99 mg/dL [facility] Potassium [Moles/Vol] 4.7 mmol/L 3.7 - 5.1 mmol/L [facility] Sodium [Moles/Vol] 135 mmol/L Low 136 - 144 mmol/L [facility] Urea nitrogen [Mass/Vol] 34 mg/dL High 9 - 24 mg/dL [facility] CBC W Auto Differential pane l (Bld)on 08-22-2022 Basophils (Bld) [#/Vol] 0.05 10*3/uL Normal <0.11 [facility] Comment on above: Order Comment: Speci men Type: BLOOD SPECIMENOrdering Facility: [facility] Address: [address] [place] [address] Performed By: #### 5 7021-8 ####[facility] [id number] [place] [address] [place] Basophils/100 WBC (Bld) 0.6 % Normal [facility] Comment on above: Order Comment: Speci men Type: BLOOD SPECIMENOrdering Facility: [facility] Address: [address] [place] [address] Performed By: #### 5 7021-8 ####[facility] [id number] [place] [address] [place] Differential cell count method Nom (Bld) Auto Normal [facility] Comment on above: Order Comment: Speci men Type: BLOOD SPECIMENOrdering Facility: [facility] Address: [address] [place] [address] Performed By: #### 5 7021-8 ####[facility] [id number] [place] [address] [place] Eosinophils (Bld) [#/Vol] 0.43 10*3/uL Normal <0.46 [facility] Comment on above: Order Comment: Speci men Type: BLOOD SPECIMENOrdering Facility: [facility] Address: [address] [place] [address] Performed By: #### 5 7021-8 ####[facility] [id number] [place] [address] [place] Eosinophils/100 WBC (Bld) 4.8 % Normal [facility] Comment on above: Order Comment: Speci men Type: BLOOD SPECIMENOrdering Facility: [facility] Address: [address] [place] [address] Performed By: #### 5 7021-8 ####[facility] [id number] [place] [address] [place] Erythrocyte distribution width (RBC) [Ratio] 12.2 % Normal 11.5-15.0 [facility] Comment on above: Order Comment: Speci men Type: BLOOD SPECIMENOrdering Facility: [facility] Address: [address] [place] [address] Performed By: #### 5 7021-8 ####[facility] [id number] [place] [address] [place] Hematocrit (Bld) [Volume fraction] 35.0 % Low 39.0-51.0 [facility] Comment on above: Order Comment: Speci men Type: BLOOD SPECIMENOrdering Facility: [facility] Address: [address] [place] [address] Performed By: #### 5 7021-8 ####[facility] [id number] [place] [address] [place] Hemoglobin (Bld) [Mass/Vol] 12.1 g/dL Low 13.0-17.0 [facility] Comment on above: Order Comment: Speci men Type: BLOOD SPECIMENOrdering Facility: [facility] Address: [address] [place] [place] [address] Performed By: #### 5 7021-8 ####[facility] [id number] [place] [address] [place] Immature granulocytes (Bld) [#/Vol] 10*3/uL Normal <0.10 [facility] Comment on above: Order Comment: Speci men Type: BLOOD SPECIMENOrdering Facility: [facility] Address: [address] [place] [address] Performed By: #### 5 7021-8 ####[facility] [id number] [place] [address] [place] Immature granulocytes/100 WBC (Bld) 0.2 % Normal [facility] Comment on above: Order Comment: Speci men Type: BLOOD SPECIMENOrdering Facility: [facility] Address: [address] [place] [address] Performed By: #### 5 7021-8 ####[facility] [id number] [place] [address] [place] Lymphocytes (Bld) [#/Vol] 1.55 10*3/uL Normal 1.00-4.00 [facility] [facility] [place] Comment on above: Order Comment: Speci men Type: BLOOD SPECIMENOrdering Facility: [facility] Address: [address] [place], [place] [id number] Performed By: #### 5 7021-8 ####[facility] HOSPITALLIA [id number] [place] [address] [place] Lymphocytes/100 WBC (Bld) 17.4 % Normal [facility] [place] Comment on above: Order Comment: Speci men Type: BLOOD SPECIMENOrdering Facility: [facility] Address: [address] [place], [place] [id number] Performed By: #### 5 7021-8 ####[facility]IA [id number] [place] [address] [place] MCH (RBC) [Entitic mass] 29.6 pg Normal 26.0-34.0 [facility] [place] Comment on above: Order Comment: Speci men Type: BLOOD SPECIMENOrdering Facility: [facility] Address: [address] [place] [address] Performed By: #### 5 7021-8 ####[facility]OMENLEXIE [id number] [place] [address] [place] MCHC (RBC) [Mass/Vol] 34.6 g/dL Normal 30.5-36.0 [facility] Comment on above: Order Comment: Speci men Type: BLOOD SPECIMENOrdering Facility: [facility] Address: [address] [place] [address] Performed By: #### 5 7021-8 ####[facility]ANGECrissy [id number] [place] [address] [place] MCV (RBC) [Entitic vol] 85.6 fL Normal 80.0-100.0 C [facility] Comment on above: Order Comment: Speci men Type: BLOOD SPECIMENOrdering Facility: [facility] Address: [address] [place] [address] Performed By: #### 5 7021-8 ####[facility] [id number] [place] [address] [place] Monocytes (Bld) [#/Vol] 0.80 10*3/uL Normal <0.87 [facility] [place] Comment on above: Order Comment: Speci men Type: BLOOD SPECIMENOrdering Facility: [facility] Address: [address] [place] [address] Performed By: #### 5 7021-8 ####[facility] [id number] [place] [address] [place] Monocytes/100 WBC (Bld) 9.0 % Normal [facility] Comment on above: Order Comment: Speci men Type: BLOOD SPECIMENOrdering Facility: [facility] Address: [address] [place] [address] Performed By: #### 5 7021-8 ####[facility] HOSPITALWCALIA [id number] [place] [address] [place] Neutrophils (Bld) [#/Vol] 6.08 10*3/uL Normal 1.45-7.50 [facility] [place] Comment on above: Order Comment: Speci men Type: BLOOD SPECIMENOrdering Facility: [facility] Address: [address] [place] [address] Performed By: #### 5 7021-8 ####[facility]A [id number] [place] [address] [place] Neutrophils/100 WBC (Bld) 68.0 % Normal [facility] [place] Comment on above: Order Comment: Speci men Type: BLOOD SPECIMENOrdering Facility: [facility] Address: [address] [place] [address] Performed By: #### 5 7021-8 ####[facility]ITALLIA [id number] [place] [address] [place] Nucleated RBC (Bld) [#/Vol] 10*3/uL Normal <0.01 [facility] [place] Comment on above: Order Comment: Speci men Type: BLOOD SPECIMENOrdering Facility: [facility] Address: [address] [place] [address] Performed By: #### 5 7021-8 ####[facility] [id number] [place] [address] [place] Nucleated RBC/100 WBC (Bld) [Ratio] 0.0 /100 WBC Normal [facility] [place] Comment on above: Order Comment: Speci men Type: BLOOD SPECIMENOrdering Facility: [facility] Address: [address] [place] [address] Performed By: #### 5 7021-8 ####[facility] JIMINCMARY LOU [id number] [place] [address] [place] Platelet mean volume (Bld) [Entitic vol] 8.6 fL Low 9.0-12.7 [facility] [place] Comment on above: Order Comment: Speci men Type: BLOOD SPECIMENOrdering Facility: [facility] Address: [address] [place] [address] Performed By: #### 5 7021-8 ####[facility]ENNCMARY LOU [id number] [place] [address] [place] Platelets (Bld) [#/Vol] 193 10*3/uL Normal 150-400 [facility] [place] Comment on above: Order Comment: Speci men Type: BLOOD SPECIMENOrdering Facility: [facility] Address: [address] [place] [address] Performed By: #### 5 7021-8 ####[facility]ENNCCATEA [id number] [place] [address] [place] RBC (Bld) [#/Vol] 4.09 10*6/uL Low 4.20-6.00 [facility] Comment on above: Order Comment: Speci men Type: BLOOD SPECIMENOrdering Facility: [facility] Address: [address] [place], [place] [id number] Performed By: #### 5 7021-8 ####[facility] [id number] [place] [address] [place] WBC (Bld) [#/Vol] 8.93 10*3/uL Normal 3.70-11.00 [facility] Comment on above: Order Comment: Speci men Type: BLOOD SPECIMENOrdering Facility: [facility] Address: [address] [place] [address], [place] [address] Performed By: #### 5 7021-8 ####[facility] [id number] [place] [address] [place] Basophils (Bld) [#/Vol] 0.05 10*3/uL <0.11 k/uL [facility] Basophils/100 WBC (Bld) 0.6 % C [facility] Differential cell count method Nom (Bld) Auto [facility] Eosinophils (Bld) [#/Vol] 0.43 10*3/uL <0.46 k/uL [facility] Eosinophils/100 WBC (Bld) 4.8 % [facility] Erythrocyte distribution width (RBC) [Ratio] 12.2 % 11.5 - 15.0 % [facility] Hematocrit (Bld) [Volume fraction] 35.0 % Low 39.0 - 51.0 % [facility] Hemoglobin (Bld) [Mass/Vol] 12.1 g/dL Low 13.0 - 17.0 g/dL [facility] Immature granulocytes (Bld) [#/Vol] <0.10 k/uL [facility] Immature granulocytes/100 WBC (Bld) 0.2 % [facility] Lymphocytes (Bld) [#/Vol] 1.55 10*3/uL 1.00 - 4.00 k/uL [facility] Lymphocytes/100 WBC (Bld) 17.4 % [facility] MCH (RBC) [Entitic mass] 29.6 pg 26.0 - 34.0 pg [facility] MCHC (RBC) [Mass/Vol] 34.6 g/dL 30.5 - 36.0 g/dL [facility] MCV (RBC) [Entitic vol] 85.6 fL 80.0 - 100.0 fL [facility] Monocytes (Bld) [#/Vol] 0.80 10*3/uL <0.87 k/uL [facility] Monocytes/100 WBC (Bld) 9.0 % C [facility] Neutrophils (Bld) [#/Vol] 6.08 10*3/uL 1.45 - 7.50 k/uL [facility] Neutrophils/100 WBC (Bld) 68.0 % [facility] Nucleated RBC (Bld) [#/Vol] <0.01 k/uL [facility] Nucleated RBC/100 WBC (Bld) [Ratio] 0.0 /100 WBC [facility] Platelet mean volume (Bld) [Entitic vol] 8.6 fL Low 9.0 - 12.7 fL [facility] Platelets (Bld) [#/Vol] 193 10*3/uL 150 - 400 k/uL [facility] RBC (Bld) [#/Vol] 4.09 10*6/uL Low 4.20 - 6.0 0 m/uL [facility] WBC (Bld) [#/Vol] 8.93 10*3/uL 3.70 - 11. 00 k/uL [facility] CNPNon 08-22-2022 [place] Telephone (MELONIE) SAM VIDALES ([id number]) 1950 M Date Time Provider Department 08/22/22 NOAM RODRIGUEZ During your visit today, we recorded the following information about you: Kinza Corona LPN 08/22/2022 4:14 PM Signed Called [facility] and requested last office visit and cardiac testing. BIBIANA Levine LPN 08/22/2022 4:15 PM Signed Received last office visit and cardiac testing. Sent to [employer] through [employer]. Kinza Corona LPN Allergies As of Date: 08/22/2022 Noted Allergy Reaction environmental [Other] 08/05/2006 9 - Itching Comments: hayfever,sneezing,wate ry eyes LISINOPRIL 06/07/2006 3 - Cough 4 - Hives Date Reviewed: 08/22/2022 Reviewed by: Noam Rodriguez APRN.TOOTH CUTTER CLUTCH - Fully Assessed Reason for Visit: Request for outside medical records [Other] Prescriptions as of 08/22/2022 - omeprazole (PRILOSEC) 20 mg capsule Take 2 capsules by mouth once daily. - isosorbide mononitrate ER (IMDUR) 30 mg 24 hr tablet Take 30 mg by mouth once daily. - minoxidil (LONITEN) 2.5 mg tablet Take 5 mg by mouth once daily. - chlorthalidone (HYGROTON) 25 mg tablet Take 25 mg by mouth once daily. - ezetimibe (ZETIA) 10 mg tablet Take 10 mg by mouth once daily. - semaglutide (OZEMPIC) 0.25 mg or 0.5 mg(2 mg/1.5 mL) pen injector INJECT 0.5MG SUBCUTANEOUSLY EVERY WEEK FOR DIABETES AND BLOOD SUGAR CONTROL. KEEP REFRIGERATED, HOWEVER, MAY BE KEPT AT ROOM TEMPERATURE FOR UP TO 56 DAYS REPLACES ALOGLIPTIN, GLIPIZIDE SA, AND NOVOLOG (ASPART INSULIN) - ferrous sulfate 325 mg (65 mg iron) tablet q 24 HR. - acetaminophen (TYLENOL) 325 mg tablet Take 2 tablets by mouth every 6 hours as needed for Pain or Fever. - gabapentin (NEURONTIN) 300 mg capsule Take 2 capsules by mouth three times daily for 335 days. - docusate sodium (COLACE) 100 mg capsule Take 1 capsule by mouth twice daily. - senna (SENOKOT) 8.6 mg tab Take 2 tablets by mouth once daily as needed (Constipation). - aspirin, enteric coated (ASPIRIN, ENTERIC COATED) 81 mg EC tablet Take 2 tablets by mouth once daily. - carvedilol (COREG) 25 mg tablet Take 25 mg by mouth twice daily with meals. - insulin glargine (LANTUS U-100 INSULIN) 100 unit/mL injection Inject 22 Units subcutaneously daily at bedtime. [facility]. - amLODIPine (NORVASC) 5 mg tablet Take 10 mg by mouth once daily. - atorvastatin (LIPITOR) 20 mg tablet Take 40 mg by mouth daily at bedtime. [facility]. Meds Comments as of 02/22/2022: Patient to call in medications to update Problem List As Of Date 08/22/2022 Noted Resolved Type 2 diabetes mellitus with stage 3 chronic k* Other and Unspecified Hyperlipidemia [E78.5] 01/27/2010 BPH without urinary obstruction [N40.0] Unspecified hemorrhoids without mention of comp* 02/09/2016 Anemia, unspecified [D64.9] 02/09/2016 Acute gastritis without mention of hemorrhage [*09/04/2005 02/09/2016 Chronic pain of left knee [M25.562, G89.29] 10/03/2005 Labyrinthitis, unspecified [H83.09] 08/05/2006 02/09/2016 Chronic obstructive pulmonary disease with acut*09/15/2007 Hyperlipidemia [E78.5] 09/02/2009 Hearing loss [H91.90] 05/23/2010 Overweight (BMI 25.0-29.9) [E66.3] 03/02/2013 Undiagnosed cardiac murmurs [R01.1] 03/02/2013 02/09/2016 Coronary artery disease involving [place]*02/09/2016 CKD (chronic kidney disease) stage 3, GFR 30-59*02/09/2016 Aortic stenosis, mild [I35.0] 02/09/2016 Colon cancer screening [Z12.11] 04/12/2016 04/12/2016 S/P CABG x 4 [Z95.1] 08/06/2016 Lumbar stenosis with neurogenic claudication [M*11/19/2017 01/23/2018 Lumbar spondylosis [M47.816] 12/04/2017 S/P lumbar laminectomy [Z98.890] 12/04/2017 Acute postoperative pain [G89.18] 12/04/2017 01/23/2018 Incidental durotomy [G97.41] 12/04/2017 Radiculopathy, lumbar region [M54.16] 07/13/2019 GERD (gastroesophageal reflux disease) [K21.9] 08/22/2022 TATI (iron deficiency anemia) [D50.9] 08/22/2022 Encounter Status:Closed by KINZA CORONA on 08/22/22 Normal [facility] [place] HISTORY PHYSICALon HISTORY PHYSICAL HNO ID: [id number] Author: Noam Rodriguez APRN.RAI Service: ? Author Type: Nurse Practitioner Type: HANDP Filed: 08/22/2022 11:31 AM Note Text: HISTORY AND PHYSICAL EXAMINATION SERVICE DATE: 08/22/2022 SERVICE TIME: 11:29 AM PRIMARY CARE PHYSICIAN: Chandrika Arcos MD REASON FOR VISIT: Sam Vidales is a 72 year old male who is scheduled for Procedure(s): HERNIORRHAPHY UMBILICAL REDUCIBLE LESS THAN 3cm (N/A) at the request of Dr. Jess Baker for consultation. My final recommendation will be communicated back to the requesting physician by way of shared medical record or letter. Subjective The patient has the following: ACTIVE PROBLEM LIST Type 2 diabetes mellitus with stage 3 chronic kidney disease, with long-term current use of insulin Bph Without Urinary Obstruction Chronic Pain of Left Knee Chronic Obstructive Pulmonary Disease With Acute Exacerbation (Hcc) Hyperlipidemia Hearing Loss Overweight (Bmi 25.0-29.9) Coronary Artery Disease Involving [place] Coronary Artery of [place] Heart Without Angina Pectoris Ckd (Chronic Kidney Disease) Stage 3, Gfr 30-59 Ml/Min (Hcc) Aortic Stenosis, Mild S/P Cabg X 4 Lumbar Spondylosis S/P Lumbar Laminectomy Incidental Durotomy Radiculopathy, Lumbar Region Gerd (Gastroesophageal Reflux Disease) Tati (Iron Deficiency Anemia) COVID-19 Immunization Status COVID-19 VACCINE (Series Information) Completed 06/06/2022 Imm Admin: COVID-19 booster vaccine, age 12+ yr, bivalent (PFIZER-BIONTECH) 01/26/2022 Imm Admin: COVID-19 original vaccine, age 12+ yr, monovalent (PFIZER-BIONTECH - GRAFF TOP) 04/22/2021 Outside Immunization: COVID-19 ([employer]), MRNA, LNP-S, PF, 30 MCG/0.3 ML DOSE Only the first 3 history entries have been loaded, but more history exists. CHIEF COMPLAINT: Pre-op exam HPI: Sam Vidales is a 72 year old seen for PAC due to scheduled above surgery because of an umbilical hernia. 04/05/2022, Dr. Baker HPI: The patient is a 71 year old male referred for endoscopy. Sam notes the following GI complaints: Sam denies abdominal pain.. Sam denies diarrhea. Sam notes constipation. Sam denies a change in bowel habits. Sam denies melena. Sam denies bright red blood per rectum. Sam denies hemorrhoids. He notes a bulge in his umbilical area which occasionally gets more distended when he is constipated. He wonders if this umbilical hernia is causing his constipation issues. The patient notes the following upper complaints: Sam denies abdominal pain.. Sam notes heartburn. Sam denies dysphagia. Sam denies a history of ulcers/ peptic ulcer disease. Sam has undergone prior endoscopy. He understands was approximately 6 years previously. I obtained a CT scan of the abdomen pelvis given his abdominal symptoms and to assess for other causes for his discomfort beyond his umbilical hernia and to assess for additional occult hernias. CT scan of the abdomen pelvis was obtained on February 23, 2022. This demonstrated: IMPRESSION: No acute finding. Fat-containing umbilical hernia RESULT: Abdomen / Pelvis: Liver: Unremarkable. Biliary: The gallbladder is unremarkable. Spleen: No splenomegaly. Pancreas: Unremarkable. Adrenals: No mass. Kidneys: No calculus, hydronephrosis or finding to suggest a cyst or mass in the unenhanced kidney. GI Tract: No bowel dilation. Normal appendix. No diverticulosis. Lymph Nodes: No lymphadenopathy. Mesentery/peritoneum: No ascites. Retroperitoneum: No mass. Vasculature: Arterial atherosclerotic disease without aneurysm. Pelvis: No mass or ascites. Bones/Soft Tissues: Mild to moderate compressive deformity of the L1 vertebral body, not significantly changed in comparison to previous radiograph. There is a fat-containing umbilical hernia measuring 2.4 x 2.7 x 1.5 cm. Lower thorax: Unremarkable. The patient was originally scheduled for his colonoscopy towards the end of April. 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 He would like to postpone his endoscopy till June or July. REVIEW OF SYSTEMS: General: No weight loss, malaise or fevers. Neurological: No history of TIA's, stroke, TREAD CUTTER tumor, impaired sensorium, hemiplegia, paraplegia or quadraplegia. No neurological symptoms or problems. Respiratory: +former smoker Positive for: asthma (childhood, hay fever). Negative for: pneumonia within 6 weeks, tobacco use, URI < 2 weeks and obstructive sleep apnea. Cardiovascular: Positive for: anticoagulation therapy (ASA), CAD, hyperlipidemia (on rx), hypertension, murmur/valvular heart disease (aortic stenosis) and open heart surgery Patient's last office visit with upper doubler, [facility], The following tests and/or procedures were not performed: cardiac stents. Negative for: arrhythmia, atrial fibrillation, chest pain, CHF, congenital heart def (more content not included)... Normal [facility] [place] HbA1c (Bld)on 08-22-2022 Average glucose Estimated from glycated hemoglobin (Bld) [Mass/Vol] 212 mg/dL [facility] HbA1c (Bld) [Mass fraction] 9.0 % High 4.3 - 5.6 % [facility] Average glucose Estimated from glycated hemoglobin (Bld) [Mass/Vol] 212 mg/dL Normal [facility] [place] Comment on above: Order Comment: [place] Type: BLOOD SPECIMENOrdering Facility: [facility] Address: [address] [address] Result Comment: eAG: (Estimated average glucose) is a calculated value from HgbA1c and is sales and marketing representative of the average blood glucose level in the last 2-3 month period. Performed By: #### 5 5454-3 ####[facility] LABIA [id number] [address] OF [facility] HbA1c (Bld) [Mass fraction] 9.0 % High 4.3-5.6 [facility] [place] Comment on above: Order Comment: [place] Type: BLOOD SPECIMENOrdering Facility: [facility] Address: [address] [place] [address] Result Comment: [place] Diabetes Association guidelines indicate that patients with HgbA1c in the range 5.7-6.4% are at increased risk for development of diabetes, and intervention by lifestyle modification may be beneficial. HgbA1c greater or equal to 6.5% is considered diagnostic of diabetes. Performed By: #### 5 5454-3 ####[facility] LABCLIA [id number] [address] OF [facility] CNOVon 08-07-2022 CNOV Office Visit (SWS ) SAM VIDALES ([id number]) 1950 M Date Time Provider Department 08/07/22 3:30 PM THAO KERR During your visit today, we recorded the following information about you: Temperature Pulse Blood pressure Weight 98.1 degrees 78/minute 118/86 83.3 kg Height 1.753 m Jess Baker MD 08/07/2022 6:59 PM Signed FOLLOW UP VISIT - ENDOSCOPY NAME: Sam CHRISTIANSON NO.: [id number] DATE OF SERVICE: 08/07/2022 : 1950 REFERRING PHYSICIAN: Chandrika Arcos MD Sam is a patient I am following for anemia. The patient was seen when he was a 71 year old male referred for endoscopy. Sam notes the following GI complaints: Sam denies abdominal pain.. Sam denies diarrhea. Sam notes constipation. Sam denies a change in bowel habits. Sam denies melena. Sam denies bright red blood per rectum. Sam denies hemorrhoids. He notes a bulge in his umbilical area which occasionally gets more distended when he is constipated. He wonders if this umbilical hernia is causing his constipation issues. The patient notes the following upper complaints: Sam denies abdominal pain.. Sam notes heartburn. Sam denies dysphagia. Sam denies a history of ulcers/ peptic ulcer disease. Sam has undergone prior endoscopy. He understands was approximately 6 years previously. I obtained a CT scan of the abdomen pelvis given his abdominal symptoms and to assess for other causes for his discomfort beyond his umbilical hernia and to assess for additional occult hernias. CT scan of the abdomen pelvis was obtained on February 23, 2022. This demonstrated: IMPRESSION: No acute finding. Fat-containing umbilical hernia RESULT: Abdomen / Pelvis: Liver: Unremarkable. Biliary: The gallbladder is unremarkable. Spleen: No splenomegaly. Pancreas: Unremarkable. Adrenals: No mass. Kidneys: No calculus, hydronephrosis or finding to suggest a cyst or mass in the unenhanced kidney. GI Tract: No bowel dilation. Normal appendix. No diverticulosis. Lymph Nodes: No lymphadenopathy. Mesentery/peritoneum: No ascites. Retroperitoneum: No mass. Vasculature: Arterial atherosclerotic disease without aneurysm. Pelvis: No mass or ascites. Bones/Soft Tissues: Mild to moderate compressive deformity of the L1 vertebral body, not significantly changed in comparison to previous radiograph. There is a fat-containing umbilical hernia measuring 2.4 x 2.7 x 1.5 cm. Lower thorax: Unremarkable. The patient was originally scheduled for his colonoscopy towards the end of April. 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 He would like to postpone his endoscopy till June or July. I performed upper and lower endoscopy on the 2022. The patient was found to have: Upper endoscopy Impression: - Normal examined jejunum. - Duodenitis. Biopsied. - Gastritis. Biopsied. - Mildly severe reflux esophagitis with no bleeding. Lower endoscopy Impression: - Three small polyps in the rectum, in the proximal transverse colon and in the ascending colon, removed with a cold biopsy forceps. Resected and retrieved. Clip (MR conditional) was placed. - The examination was otherwise normal on direct and retroflexion views. Pathology demonstrated: FINAL DIAGNOSIS A. Stomach, antrum, biopsy: - Gastric antral mucosa with no diagnostic abnormality. B. Stomach, body, biopsy: - Gastric oxyntic mucosa with acute erosive gastropathy. - An immunohistochemical stain for Helicobacter pylori organisms has been ordered and will be reported in an addendum. C. Colon, ascending, polyp, biopsy: - Colonic mucosa with no diagnostic abnormality. D. Colon, transverse, polyp, biopsy: - Tubular adenoma. E. Rectum, polyp, biopsy: - Hyperplastic polyp. He was started on Prilosec 40 mg twice a day. The patient notes no complaints since the procedure. He would like to have his umbilical hernia repaired. VITALS: There were no vitals taken for this visit. On examination, the abdomen is benign. He has a small primary umbilical hernia that is partially reducible. Assessment IMPRESSION: Adenomatous polyp, reactive gastropathy, umbilical hernia PLAN: If the patient notes any problems or changes in bowel function, the patient should contact me immediately. Otherwise I recommend follow up endoscopy as needed. You were found to have an adenomatous colon polyp. I recommend you undergo repeat endoscopy in 5 years. If you note bleeding, change in bowel habits, or other suspicious colon related symptoms before that time, those symptoms should be evaluated as necessary. If you have any difficulties or concerns, you should contact our office immediately. I plan to perform a simple umbilical hernia repair. The planned surgical procedure was d (more content not included)... Normal [facility] [place] SURGICAL PATHOLOGYon 023 Addendum Given the presence o f erosion, a Helicobacter pylori immunostain was performed on block B1 and is negative for Helicobacter pylori organisms. Laboratory Developed Test (LDT) Disclaimer: Performance characteristics of immunohistochemical, immunofluorescent and chromogenic in-situ hybridization tests have been determined by the performing laboratory within [facility] s [facility] Pathology and Laboratory Medicine [place] (carrier clinic, [facility], [facility] or [facility]) in a manner consistent with CLIA requirements. One or more of these tests have not been cleared or approved by the FDA. [facility] is regulated under CLIA as qualified to perform high-complexity testing. These tests are used for clinical purposes. They should not be regarded as investigational or for research. Positive and negative controls stain appropriately. [facility] Case Report Surgical Pathology Report Case: [id number] Authorizing Provider: Jess Baker MD Collected: 07/24/2022 08:05 AM Ordering Location: Ambulatory Surgery Received: 07/24/2022 03:16 PM Pathologist: Kobe Fernandes MD Specimens: A) - ANTRUM (STOMACH) BIOPSY, Antral for H/H B) - ANTRUM (STOMACH) BIOPSY, Body of the Stomach bx C) - ASCENDING COLON POLYP D) - TRANSVERSE COLON POLYP, PROXIMAL tranverse colon polyp E) - RECTAL POLYP [facility] FINAL DIAGNOSIS A. Stomach, antrum, biopsy: - Gastric antral mucosa with no diagnostic abnormality. B. Stomach, body, biopsy: - Gastric oxyntic mucosa with acute erosive gastropathy. - An immunohistochemical stain for Helicobacter pylori organisms has been ordered and will be reported in an addendum. C. Colon, ascending, polyp, biopsy: - Colonic mucosa with no diagnostic abnormality. D. Colon, transverse, polyp, biopsy: - Tubular adenoma. E. Rectum, polyp, biopsy: - Hyperplastic polyp. [facility] Gross Description A. ANTRUM (STOMACH) BIOPSY Received in formalin is one piece of montero, soft tissue measuring 0.3 x 0.3 x 0.1 cm. Totally submitted in one cassette. B. ANTRUM (STOMACH) BIOPSY Received in formalin is one piece of montero, soft tissue measuring 0.3 x 0.2 x 0.2 cm. Totally submitted in one cassette. C. ASCENDING COLON POLYP Received in formalin is one piece of montero, soft tissue measuring 0.5 x 0.1 x 0.1 cm. Totally submitted in one cassette. D. TRANSVERSE COLON POLYP Received in formalin is one piece of montero, soft tissue measuring 0.3 x 0.3 x 0.1 cm. Totally submitted in one cassette. E. RECTAL POLYP Received in formalin are multiple pieces of montero, soft tissue aggregating to 1.2 x 0.3 x 0.1 cm. Totally submitted in one cassette. Gross examination performed at [facility], [address] [place] [address] FFS 07/24/2022 9:34 PM [facility] Performing Lab Diagnostic interpretation performed at [facility], [address] [facility] [address] CLIA# [id number] Fruit Inspector: John Pickard M.D. [facility] COLONOSCOPY DIAGNOSTICon [facility] Colonoscopyon 07-24-2022 Colonoscopy [facility] Gastrointestinal Endoscopy Patient Name: Sam Vidales Procedure Date: 07/24/2022 7:25 AM Date of : 1950 Admit Type: Outpatient Age: 72 Gender: Male Note Status: Finalized Procedure: Colonoscopy Indications: Iron deficiency anemia, Constipation Providers: Jess Baker MD Patient Profile: This is a 72 year old male. Refer to note in patient chart for documentation of history and physical. Last Colonoscopy: several years ago. Referring Physician: Jess Baker MD (Referring MD) self Medicines: See the other procedure note for documentation of the administered medications Complications: No immediate complications. Requesting Provider: Procedure: Pre-Anesthesia Assessment: - Prior to the procedure, a History and Physical was performed, and patient medications and allergies were reviewed. The patient is competent. The risks and benefits of the procedure and the sedation options and risks were discussed with the patient. All questions were answered and informed consent was obtained. Patient identification and proposed procedure were verified by the physician and the nurse in the procedure room. Respiratory Examination: clear to auscultation. Prophylactic Antibiotics: The patient does not require prophylactic antibiotics. Prior Anticoagulants: The patient has taken no anticoagulant or antiplatelet agents. ASA Grade Assessment: III - A patient with severe systemic disease. After reviewing the risks and benefits, the patient was deemed in satisfactory condition to undergo the procedure. The anesthesia plan was to use moderate sedation / analgesia (conscious sedation). Immediately prior to administration of medications, the patient was re-assessed for adequacy to receive sedatives. The heart rate, respiratory rate, oxygen saturations, blood pressure, adequacy of pulmonary ventilation, and response to care were monitored throughout the procedure. The physical status of the patient was re-assessed after the procedure. After I obtained informed consent, the scope was passed under direct vision. Throughout the procedure, the patient's blood pressure, pulse, and oxygen saturations were monitored continuously. The Colonoscope was introduced through the anus and advanced to the cecum, identified by the appendiceal orifice, ileocecal valve and palpation. The colonoscopy was performed without difficulty. The patient tolerated the procedure well. The quality of the bowel preparation was good. The ileocecal valve, appendiceal orifice, and rectum were photographed. Moderate Sedation: Moderate (conscious) sedation was personally administered by the endoscopist. The following parameters were monitored: oxygen saturation, heart rate, blood pressure, and response to care. Total physician intraservice time was 50 minutes. The administration of moderate sedation was initiated at 07:59 AM. Findings: The perianal and digital rectal examinations were normal. Three sessile polyps were found in the rectum, proximal transverse colon and ascending colon. The polyps were small in size. These polyps were removed with a cold biopsy forceps. Resection and retrieval were complete. To prevent bleeding after the polypectomy, one hemostatic clip was successfully placed (MR conditional). There was no bleeding at the end of the procedure. The exam was otherwise without abnormality on direct and retroflexion views. Impression: - Three small polyps in the rectum, in the proximal transverse colon and in the ascending colon, removed with a cold biopsy forceps. Resected and retrieved. Clip (MR conditional) was placed. - The examination was otherwise normal on direct and retroflexion views. Recommendation: - Discharge patient to home. - Resume previous diet. - Continue present medications. - Return to my office in 2 weeks. - Repeat colonoscopy for surveillance based on pathology results. - Resume anticoagulant at prior dose. - Patient has a contact number available for emergencies. The signs and symptoms of potential delayed complications were discussed with the patient. Return to normal activities tomorrow. Written discharge instructions were provided to the patient. Procedure Code(s): --- Professional --- 07591, Colonoscopy, flexible; with biopsy, single or multiple 35510, Moderate sedation; each additional 15 minutes intraservice time 20857, Moderate sedation; each additional 15 minutes intraservice time G0500, Moderate sedation services provided by the same physician or other qualified health healthcare market consultant performing a gastrointestinal endoscopic service that sedation supports, requiring the presence of an independent trained observer to assist in the monitoring of the patient's level of consciousness and physiological status; initial 15 minutes of intra-service time; patient age 4 yea (more content not included)... Normal [facility] EGD DIAGNOSTICon 07-24-2022 [facility] GLUCOSE, BLOOD (POC)on 07-24 Glucose [Mass/Vol] 98 mg/dL 74 - 99 mg/dL [facility] HISTORY PHYSICALon HISTORY PHYSICAL HNO ID: [id number] Author: Jess Baker MD Service: General Surgery Author Type: Physician Type: HANDP Filed: 07/24/2022 7:34 AM Note Text: HISTORY AND PHYSICAL Sam Vidales 1950 REFERRING PHYSICIAN: MD Allan CHIEF COMPLAINT: Consult (Hernia, constipation) HPI: The patient is a 71 year old male referred for endoscopy. Sam notes the following GI complaints: Sam denies abdominal pain.. Sam denies diarrhea. Sam notes constipation. Sam denies a change in bowel habits. Sam denies melena. Sam denies bright red blood per rectum. Sam denies hemorrhoids. He notes a bulge in his umbilical area which occasionally gets more distended when he is constipated. He wonders if this umbilical hernia is causing his constipation issues. The patient notes the following upper complaints: Sam denies abdominal pain.. Sam notes heartburn. Sam denies dysphagia. Sam denies a history of ulcers/ peptic ulcer disease. Sam has undergone prior endoscopy. He understands was approximately 6 years previously. I obtained a CT scan of the abdomen pelvis given his abdominal symptoms and to assess for other causes for his discomfort beyond his umbilical hernia and to assess for additional occult hernias. CT scan of the abdomen pelvis was obtained on February 23, 2022. This demonstrated: IMPRESSION: No acute finding. Fat-containing umbilical hernia RESULT: Abdomen / Pelvis: Liver: Unremarkable. Biliary: The gallbladder is unremarkable. Spleen: No splenomegaly. Pancreas: Unremarkable. Adrenals: No mass. Kidneys: No calculus, hydronephrosis or finding to suggest a cyst or mass in the unenhanced kidney. GI Tract: No bowel dilation. Normal appendix. No diverticulosis. Lymph Nodes: No lymphadenopathy. Mesentery/peritoneum: No ascites. Retroperitoneum: No mass. Vasculature: Arterial atherosclerotic disease without aneurysm. Pelvis: No mass or ascites. Bones/Soft Tissues: Mild to moderate compressive deformity of the L1 vertebral body, not significantly changed in comparison to previous radiograph. There is a fat-containing umbilical hernia measuring 2.4 x 2.7 x 1.5 cm. Lower thorax: Unremarkable. The patient was originally scheduled for his colonoscopy towards the end of April. 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 He would like to postpone his endoscopy till June or July. PAST MEDICAL HISTORY PAST MEDICAL HISTORY Diagnosis Date Acute gastritis without mention of hemorrhage 09/04/05 Anemia, unspecified Aortic stenosis, mild 02/09/2016 Atherosclerosis of [place] coronary artery of [place] heart without angina pectoris 02/09/2016 Chronic airway obstruction, not elsewhere classified 09/15/2007 CKD (chronic kidney disease) stage 3, GFR 30-59 ml/min ([facility]) 02/09/2016 Hyperlipidemia Hypertension Hypertrophy of prostate without urinary obstruction and other lower urinary tract symptoms (LUTS) Personal history of noncompliance with medical treatment, presenting hazards to health S/P CABG x 4 08/06/2016 Type 2 diabetes mellitus with stage 3 chronic kidney disease, with long-term current use of insulin ([facility]) Type II or unspecified type diabetes mellitus without mention of complication, not stated as uncontrolled Unspecified hemorrhoids without mention of complication Hemorrhoids PAST SURGICAL HISTORY PAST SURGICAL HISTORY Procedure Laterality Date CABG X (4) ARTERIAL GRAFTS 08/06/2016 COLONOSCOPY FLX DX W/COLLJ SPEC WHEN PFRMD 01/27/2004 Colonoscopy-repeat in COLONOSCOPY FLX DX W/COLLJ SPEC WHEN PFRMD 04/12/2016 Colonoscopy EGD TRANSORAL BIOPSY SINGLE/MULTIPLE 09/04/2005 ESOPHAGOGASTRODUODENOS COPY TRANSORAL DIAGNOSTIC 04/12/2016 EGD LEFT HEART CATH,PERCUTANEOUS 09/08/2015 Cardiac cath, L heart PAST SURGICAL HISTORY OF 10/12/2015 unsuccessful PCI attempt PAST SURGICAL HISTORY OF 2018 back surgery L4-L5 CURRENT MEDICATIONS Current Outpatient Medications Medication Sig isosorbide mononitrate ER (IMDUR) 30 mg 24 hr tablet Take 30 mg by mouth once daily. minoxidil (LONITEN) 2.5 mg tablet Take 5 mg by mouth once daily. chlorthalidone (HYGROTON) 25 mg tablet Take 25 mg by mouth once daily. ezetimibe (ZETIA) 10 mg tablet Take 10 mg by mouth once daily. semaglutide (OZEMPIC) 0.25 mg or 0.5 mg(2 mg/1.5 mL) pen injector INJECT 0.5MG SUBCUTANEOUSLY EVERY WEEK FOR DIABETES AND BLOOD SUGAR CONTROL. KEEP REFRIGERATED, HOWEVER, MAY BE KEPT AT ROOM TEMPERATURE FOR UP TO 56 DAYS REPLACES ALOGLIPTIN, GLIPIZIDE SA, AND NOVOLOG (ASPART INSULIN) meloxicam (MOBIC) 15 mg tablet Take 15 mg by mouth once daily. ferrous sulfate 325 mg (65 mg iron) tablet q 24 HR. metFORMIN (GLUCOPHAGE) 500 mg tablet Take 500 mg by mouth twice daily with meals. acetaminophen (TYLENOL) 325 mg tablet Take 2 tablets by mouth every 6 hours as needed for Pain or Fever. docusate so (more content not included)... Normal [facility] NURSING PROGon 07-24-2022 NURSING PROG HNO ID: [id number] Author: Brielle Sinha RN Service: ? Author Type: Registered Nurse Type: Nursing Progress Note Filed: 07/24/2022 9:15 AM Note Text: Pt received in PACU. Pt awake, slightly drowsy. Denies pain or nausea. Abd soft and non distended. Brielle Sinha RN Normal [facility] SURGICAL PATHOLOGYon 023 ADDENDUM 1: Normal [facility] Comment on above: Order Comment: Speci men Type: TISSUE SPECIMENOrdering Facility: [facility] Address: [address] [place] [id number] Result Comment: Give n the presence of erosion, a Helicobacter pylori immunostain was performed on block B1 and is negative for Helicobacter pylori organisms. Laboratory Developed Test (LDT) Disclaimer: Performance characteristics of immunohistochemical, immunofluorescent and chromogenic in-situ hybridization tests have been determined by the performing laboratory within [facility]???s [facility] [place] (carrier clinic, [facility], [facility] or [facility]) in a manner consistent with CLIA requirements. One or more of these tests have not been cleared or approved by the FDA. [facility] is regulated under CLIA as qualified to perform high-complexity testing. These tests are used for clinical purposes. They should not be regarded as investigational or for research. Positive and negative controls stain appropriately. Addendum electronically signed by Kobe Fernandes MD on 07/26/2022 at 5:36 PM Performed By: #### S ####[facility] LABIA [id number] [address] CASE REPORT Normal [facility] Comment on above: Order Comment: Speci men Type: TISSUE SPECIMENOrdering Facility: [facility] Address: [address] [place] [address] Result Comment: Surg [facility] Pathology Report Case: [id number] Authorizing Provider: Jess Baker MD Collected: 07/24/2022 08:05 AM Ordering Location: Ambulatory Surgery Received: 07/24/2022 03:16 PM Pathologist: Kobe Fernandes MD Specimens: A) - ANTRUM (STOMACH) BIOPSY, Antral for H/H B) - ANTRUM (STOMACH) BIOPSY, Body of the Stomach bx C) - ASCENDING COLON POLYP D) - TRANSVERSE COLON POLYP, PROXIMAL tranverse colon polyp E) - RECTAL POLYP Performed By: #### S ####[facility] LABIA [id number] [address] FINAL DIAGNOSIS Normal [facility] Comment on above: Order Comment: Speci nini Type: TISSUE SPECIMENOrdering Facility: [facility] Address: [address] [place] [address] Result Comment: A. S tomach, antrum, biopsy: - Gastric antral mucosa with no diagnostic abnormality. B. Stomach, body, biopsy: - Gastric oxyntic mucosa with acute erosive gastropathy. - An immunohistochemical stain for Helicobacter pylori organisms has been ordered and will be reported in an addendum. C. Colon, ascending, polyp, biopsy: - Colonic mucosa with no diagnostic abnormality. D. Colon, transverse, polyp, biopsy: - Tubular adenoma. E. Rectum, polyp, biopsy: - Hyperplastic polyp. Performed By: #### S ####[facility] LABIA [id number] [address] [place] FINAL PERFORMING LAB Normal [facility] Comment on above: Order Comment: Speci men Type: TISSUE SPECIMENOrdering Facility: [facility] Address: [address] [place] [address] Result Comment: Diag nostic interpretation performed at [facility], [address] [id number] CLIA# [id number] Fruit Inspector: John Pickard M.D. Performed By: #### S ####[facility] LABCLIA [id number] [address] [place] GROSS DESCRIPTION Normal [facility] Comment on above: Order Comment: Speci men Type: TISSUE SPECIMENOrdering Facility: [facility] Address: [address] [place] [address] Result Comment: A. A NTRUM (STOMACH) BIOPSY Received in formalin is one piece of montero, soft tissue measuring 0.3 x 0.3 x 0.1 cm. Totally submitted in one cassette. B. ANTRUM (STOMACH) BIOPSY Received in formalin is one piece of montero, soft tissue measuring 0.3 x 0.2 x 0.2 cm. Totally submitted in one cassette. C. ASCENDING COLON POLYP Received in formalin is one piece of montero, soft tissue measuring 0.5 x 0.1 x 0.1 cm. Totally submitted in one cassette. D. TRANSVERSE COLON POLYP Received in formalin is one piece of montero, soft tissue measuring 0.3 x 0.3 x 0.1 cm. Totally submitted in one cassette. E. RECTAL POLYP Received in formalin are multiple pieces of montero, soft tissue aggregating to 1.2 x 0.3 x 0.1 cm. Totally submitted in one cassette. Gross examination performed at [facility], [address] [facility] [place] [address] FFS 07/24/2022 9:34 PM Performed By: #### S ####[facility] LABCLIA [id number] [place] [address] [place] Upper GI endoscopyon 023 Upper GI endoscopy [facility] Gastrointestinal Endoscopy Patient Name: Sam Vidales Procedure Date: 07/24/2022 7:26 AM Date of : 1950 Admit Type: Outpatient Age: 72 Gender: Male Note Status: Finalized Procedure: Upper GI endoscopy Indications: Iron deficiency anemia, Suspected esophageal reflux Providers: Jess Baker MD Patient Profile: This is a 72 year old male. Refer to note in patient chart for documentation of history and physical. Referring Physician: Jess Baker MD (Referring MD) self Medicines: Midazolam 5 mg IV, Fentanyl 100 micrograms IV Complications: No immediate complications. Requesting Provider: Procedure: Pre-Anesthesia Assessment: - Prior to the procedure, a History and Physical was performed, and patient medications and allergies were reviewed. The patient is competent. The risks and benefits of the procedure and the sedation options and risks were discussed with the patient. All questions were answered and informed consent was obtained. Patient identification and proposed procedure were verified by the physician and the nurse in the procedure room. Mental Status Examination: alert and oriented. Respiratory Examination: clear to auscultation. Prophylactic Antibiotics: The patient does not require prophylactic antibiotics. Prior Anticoagulants: The patient has taken no anticoagulant or antiplatelet agents. ASA Grade Assessment: III - A patient with severe systemic disease. After reviewing the risks and benefits, the patient was deemed in satisfactory condition to undergo the procedure. The anesthesia plan was to use moderate sedation / analgesia (conscious sedation). Immediately prior to administration of medications, the patient was re-assessed for adequacy to receive sedatives. The heart rate, respiratory rate, oxygen saturations, blood pressure, adequacy of pulmonary ventilation, and response to care were monitored throughout the procedure. The physical status of the patient was re-assessed after the procedure. - Prior to the procedure, a History and Physical was performed, and patient medications and allergies were reviewed. The patient's tolerance of previous anesthesia was also reviewed. The risks and benefits of the procedure and the sedation options and risks were discussed with the patient. All questions were answered, and informed consent was obtained. Prior Anticoagulants: The patient has taken no anticoagulant or antiplatelet agents except for aspirin. ASA Grade Assessment: III - A patient with severe systemic disease. After reviewing the risks and benefits, the patient was deemed in satisfactory condition to undergo the procedure. After obtaining informed consent, the endoscope was passed under direct vision. Throughout the procedure, the patient's blood pressure, pulse, and oxygen saturations were monitored continuously. The Endoscope was introduced through the mouth, and advanced to the jejunum. The upper GI endoscopy was accomplished without difficulty. The patient tolerated the procedure well. Moderate Sedation: Moderate (conscious) sedation was personally administered by the endoscopist. The following parameters were monitored: oxygen saturation, heart rate, blood pressure, and response to care. Total physician intraservice time was 50 minutes. The administration of moderate sedation was initiated at 07:59 AM. Findings: The examined jejunum was normal. Localized mild inflammation characterized by erosions, erythema and friability was found in the duodenal bulb. Biopsies were taken with a cold forceps for histology. Scattered moderate inflammation characterized by erosions, erythema, friability and linear erosions was found in the entire examined stomach. Biopsies were taken with a cold forceps for histology. Biopsies were taken with a cold forceps for histology. Biopsies were taken with a cold forceps for histology. Mildly severe esophagitis with no bleeding was found. Impression: - Normal examined jejunum. - Duodenitis. Biopsied. - Gastritis. Biopsied. - Mildly severe reflux esophagitis with no bleeding. Recommendation: - Discharge patient to home. - Resume regular diet. - Continue present medications. - Use Prilosec (omeprazole) 40 mg PO BID. - Return to my office in 2 weeks. Procedure Code(s): --- Professional --- 34960, Esophagogastroduodenos copy, flexible, transoral; with biopsy, single or multiple 39045, Moderate sedation; each additional 15 minutes intraservice time 40524, Moderate sedation; each additional 15 minutes intraservice time G0500, Moderate sedation services provided by the same physician or other qualified health healthcare market consultant performing a gastrointestinal endoscopic service that sedation supports, requiring the presence of an independent trained observer to assist in the monitoring of the patient's level of consc (more content not included)... Normal [facility] Rui 07-23-2022 [place] Telephone (ASWSTR) SAM VIDALES ([id number]) 1950 M Date Time Provider Department 07/23/22 JESS BAKER During your visit today, we recorded the following information about you: Otilia Forte LPN 07/23/2022 11:30 AM Signed Patient called in stating he picked up prescription for colonoscopy prep from colonoscopy tomorrow 07/23/2022. Patient states he informed dr. Baker that he had issues taking prep last time not cleaning him out. Patient states he is having kidney issues. Please advise which prep to be taking and instruction that go along with it. BIBIANA Blank LPN 07/23/2022 12:58 PM Signed Talk to patient, comfirmed that his colonoscopy prep is diabetic friendly. Advised patient to start golytely now, to ensure proper prep. Pt stated understanding. Ivania Garg LPN Allergies As of Date: 07/23/2022 Noted Allergy Reaction environmental [Other] 08/05/2006 9 - Itching Comments: hayfever,sneezing,wate ry eyes Date Reviewed: 04/05/2022 Reviewed by: Jess Baker MD - Fully Assessed Reason for Visit: Patient Question [3877] Cmt: Question about colonoscopy prep Prescriptions as of 07/23/2022 - isosorbide mononitrate ER (IMDUR) 30 mg 24 hr tablet Take 30 mg by mouth once daily. - minoxidil (LONITEN) 2.5 mg tablet Take 5 mg by mouth once daily. - chlorthalidone (HYGROTON) 25 mg tablet Take 25 mg by mouth once daily. - ezetimibe (ZETIA) 10 mg tablet Take 10 mg by mouth once daily. - semaglutide (OZEMPIC) 0.25 mg or 0.5 mg(2 mg/1.5 mL) pen injector INJECT 0.5MG SUBCUTANEOUSLY EVERY WEEK FOR DIABETES AND BLOOD SUGAR CONTROL. KEEP REFRIGERATED, HOWEVER, MAY BE KEPT AT ROOM TEMPERATURE FOR UP TO 56 DAYS REPLACES ALOGLIPTIN, GLIPIZIDE SA, AND NOVOLOG (ASPART INSULIN) - meloxicam (MOBIC) 15 mg tablet Take 15 mg by mouth once daily. - ferrous sulfate 325 mg (65 mg iron) tablet q 24 HR. - metFORMIN (GLUCOPHAGE) 500 mg tablet Take 500 mg by mouth twice daily with meals. - acetaminophen (TYLENOL) 325 mg tablet Take 2 tablets by mouth every 6 hours as needed for Pain or Fever. - gabapentin (NEURONTIN) 300 mg capsule Take 2 capsules by mouth three times daily for 335 days. - docusate sodium (COLACE) 100 mg capsule Take 1 capsule by mouth twice daily. - senna (SENOKOT) 8.6 mg tab Take 2 tablets by mouth once daily as needed (Constipation). - aspirin, enteric coated (ASPIRIN, ENTERIC COATED) 81 mg EC tablet Take 2 tablets by mouth once daily. - carvedilol (COREG) 25 mg tablet Take 25 mg by mouth twice daily with meals. - insulin glargine (LANTUS U-100 INSULIN) 100 unit/mL injection Inject 22 Units subcutaneously daily at bedtime. [facility]. - amLODIPine (NORVASC) 5 mg tablet Take 10 mg by mouth once daily. - atorvastatin (LIPITOR) 20 mg tablet Take 40 mg by mouth daily at bedtime. [facility]. - insulin aspart U-100 (NOVOLOG) 100 unit/mL (3 mL) 6 - 12 units as needed with a meal. [facility]. - glipiZIDE (GLUCOTROL) 5 mg tablet Take 10 mg by mouth daily before dinner. [facility]. - losartan (COZAAR) 100 mg tablet Take one tablet daily Meds Comments as of 02/22/2022: Patient to call in medications to update Problem List As Of Date 07/23/2022 Noted Resolved Type 2 diabetes mellitus with stage 3 chronic k* Other and Unspecified Hyperlipidemia [E78.5] 01/27/2010 BPH without urinary obstruction [N40.0] Unspecified hemorrhoids without mention of comp* 02/09/2016 Anemia, unspecified [D64.9] 02/09/2016 Acute gastritis without mention of hemorrhage [*09/04/2005 02/09/2016 PAIN JOINT, KNEE [M25.569] 10/03/2005 02/09/2016 Labyrinthitis, unspecified [H83.09] 08/05/2006 02/09/2016 Chronic obstructive pulmonary disease with acut*09/15/2007 Hyperlipidemia [E78.5] 09/02/2009 Hearing loss [H91.90] 05/23/2010 Overweight (BMI 25.0-29.9) [E66.3] 03/02/2013 Undiagnosed cardiac murmurs [R01.1] 03/02/2013 02/09/2016 Coronary artery disease involving [place] sue*02/09/2016 CKD (chronic kidney disease) stage 3, GFR 30-59*02/09/2016 Aortic stenosis, mild [I35.0] 02/09/2016 Colon cancer screening [Z12.11] 04/12/2016 04/12/2016 S/P CABG x 4 [Z95.1] 08/06/2016 Lumbar stenosis with neurogenic claudication [M*11/19/2017 01/23/2018 Lumbar spondylosis [M47.816] 12/04/2017 S/P lumbar laminectomy [Z98.890] 12/04/2017 Acute postoperative pain [G89.18] 12/04/2017 01/23/2018 Incidental durotomy [G97.41] 12/04/2017 Radiculopathy, lumbar region [M54.16] 07/13/2019 Encounter Status:Closed by IVANIA GARG on 07/23/22 [facility] CNOVon 04-05-2022 CNOV Office Visit (GENSWS ) SAM VIDALES ([id number]) 1950 [place] Date Time Provider Department 04/05/22 10:30 AM JESS BAKER During your visit today, we recorded the following information about you: Temperature Pulse Blood pressure Weight 98.7 degrees 85/minute 142/82 80.7 kg Height 1.753 m Jess Baker MD 04/05/2022 11:10 AM Signed HISTORY AND PHYSICAL Sam Vidales 1950 REFERRING PHYSICIAN: MD Allan CHIEF COMPLAINT: Consult (Hernia, constipation) HPI: The patient is a 71 year old male referred for endoscopy. Sam notes the following GI complaints: Sam denies abdominal pain.. Sam denies diarrhea. Sam notes constipation. Sam denies a change in bowel habits. Sam denies melena. Sam denies bright red blood per rectum. Sam denies hemorrhoids. He notes a bulge in his umbilical area which occasionally gets more distended when he is constipated. He wonders if this umbilical hernia is causing his constipation issues. The patient notes the following upper complaints: Sam denies abdominal pain.. Sam notes heartburn. Sam denies dysphagia. Sam denies a history of ulcers/ peptic ulcer disease. Sam has undergone prior endoscopy. He understands was approximately 6 years previously. I obtained a CT scan of the abdomen pelvis given his abdominal symptoms and to assess for other causes for his discomfort beyond his umbilical hernia and to assess for additional occult hernias. CT scan of the abdomen pelvis was obtained on February 23, 2022. This demonstrated: IMPRESSION: No acute finding. Fat-containing umbilical hernia RESULT: Abdomen / Pelvis: Liver: Unremarkable. Biliary: The gallbladder is unremarkable. Spleen: No splenomegaly. Pancreas: Unremarkable. Adrenals: No mass. Kidneys: No calculus, hydronephrosis or finding to suggest a cyst or mass in the unenhanced kidney. GI Tract: No bowel dilation. Normal appendix. No diverticulosis. Lymph Nodes: No lymphadenopathy. Mesentery/peritoneum: No ascites. Retroperitoneum: No mass. Vasculature: Arterial atherosclerotic disease without aneurysm. Pelvis: No mass or ascites. Bones/Soft Tissues: Mild to moderate compressive deformity of the L1 vertebral body, not significantly changed in comparison to previous radiograph. There is a fat-containing umbilical hernia measuring 2.4 x 2.7 x 1.5 cm. Lower thorax: Unremarkable. The patient was originally scheduled for his colonoscopy towards the end of April. 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 He would like to postpone his endoscopy till June or July. PAST MEDICAL HISTORY Diagnosis Date Acute gastritis without mention of hemorrhage 09/04/05 Anemia, unspecified Aortic stenosis, mild 02/09/2016 Atherosclerosis of [place] coronary artery of [place] heart without angina pectoris 02/09/2016 Chronic airway obstruction, not elsewhere classified 09/15/2007 CKD (chronic kidney disease) stage 3, GFR 30-59 ml/min ([facility]) 02/09/2016 Hyperlipidemia Hypertension Hypertrophy of prostate without urinary obstruction and other lower urinary tract symptoms (LUTS) Personal history of noncompliance with medical treatment, presenting hazards to health S/P CABG x 4 08/06/2016 Type 2 diabetes mellitus with stage 3 chronic kidney disease, with long-term current use of insulin (HCC) Type II or unspecified type diabetes mellitus without mention of complication, not stated as uncontrolled Unspecified hemorrhoids without mention of complication Hemorrhoids PAST SURGICAL HISTORY Procedure Laterality Date CABG X (4) ARTERIAL GRAFTS 08/06/2016 COLONOSCOPY FLX DX W/COLLJ SPEC WHEN PFRMD 01/27/2004 Colonoscopy-repeat in COLONOSCOPY FLX DX W/COLLJ SPEC WHEN PFRMD 04/12/2016 Colonoscopy EGD TRANSORAL BIOPSY SINGLE/MULTIPLE 09/04/2005 ESOPHAGOGASTRODUODENOS COPY TRANSORAL DIAGNOSTIC 04/12/2016 EGD LEFT HEART CATH,PERCUTANEOUS 09/08/2015 Cardiac cath, L heart PAST SURGICAL HISTORY OF 10/12/2015 unsuccessful PCI attempt PAST SURGICAL HISTORY OF 2017 back surgery L4-L5 Current Outpatient Medications Medication Sig isosorbide mononitrate ER (IMDUR) 30 mg 24 hr tablet Take 30 mg by mouth once daily. minoxidil (LONITEN) 2.5 mg tablet Take 5 mg by mouth once daily. chlorthalidone (HYGROTON) 25 mg tablet Take 25 mg by mouth once daily. ezetimibe (ZETIA) 10 mg tablet Take 10 mg by mouth once daily. semaglutide (OZEMPIC) 0.25 mg or 0.5 mg(2 mg/1.5 mL) pen injector INJECT 0.5MG SUBCUTANEOUSLY EVERY WEEK FOR DIABETES AND BLOOD SUGAR CONTROL. KEEP REFRIGERATED, HOWEVER, MAY BE KEPT AT ROOM TEMPERATURE FOR UP TO 56 DAYS REPLACES ALOGLIPTIN, GLIPIZIDE SA, AND NOVOLOG (ASPART INSULIN) meloxicam (MOBIC) 15 mg tablet Take 15 mg by mouth once daily. ferrous sulfate 325 mg (65 mg iron) ta (more content not included)... Normal [facility] Rui 03-15-2022 CNPN Telephone ([employer]) SAM VIDALES ([id number]) 1950 M Date Time Provider Department 03/15/22 THAO KERR During your visit today, we recorded the following information about you: Sarah Leal LPN 03/15/2022 9:47 AM Signed Patient called asking for results from a CT scan that was done on 02/23/22, ordered by Dr Baker. Can you look at results. Thanks. BIBIANA Mixon PA-C 03/15/2022 12:02 PM Signed Can let him know CT scan showed a fat-containing umbilical hernia, otherwise no acute findings. Please have patient follow up with Dr. Baker when he returns to discuss further. Yaritza Plummer 03/15/2022 12:38 PM Signed Spoke with Patient and informed of results per Thao Kerr. Patient scheduled Follow up appointment with 04/05/2022. Denies any other need or concern at this time. Allergies As of Date: 03/15/2022 Noted Allergy Reaction environmental [Other] 08/05/2006 9 - Itching Comments: hayfever,sneezing,wate ry eyes Date Reviewed: 02/27/2022 Reviewed by: Jess Baker MD - Fully Assessed Reason for Visit: Patient Question [1093] Cmt: CT scan results Prescriptions as of 03/15/2022 - isosorbide mononitrate ER (IMDUR) 30 mg 24 hr tablet Take 30 mg by mouth once daily. - minoxidil (LONITEN) 2.5 mg tablet Take 5 mg by mouth once daily. - chlorthalidone (HYGROTON) 25 mg tablet Take 25 mg by mouth once daily. - ezetimibe (ZETIA) 10 mg tablet Take 10 mg by mouth once daily. - semaglutide (OZEMPIC) 0.25 mg or 0.5 mg(2 mg/1.5 mL) pen injector INJECT 0.5MG SUBCUTANEOUSLY EVERY WEEK FOR DIABETES AND BLOOD SUGAR CONTROL. KEEP REFRIGERATED, HOWEVER, MAY BE KEPT AT ROOM TEMPERATURE FOR UP TO 56 DAYS REPLACES ALOGLIPTIN, GLIPIZIDE SA, AND NOVOLOG (ASPART INSULIN) - meloxicam (MOBIC) 15 mg tablet Take 15 mg by mouth once daily. - ferrous sulfate 325 mg (65 mg iron) tablet q 24 HR. - metFORMIN (GLUCOPHAGE) 500 mg tablet Take 500 mg by mouth twice daily with meals. - acetaminophen (TYLENOL) 325 mg tablet Take 2 tablets by mouth every 6 hours as needed for Pain or Fever. - gabapentin (NEURONTIN) 300 mg capsule Take 2 capsules by mouth three times daily for 335 days. - docusate sodium (COLACE) 100 mg capsule Take 1 capsule by mouth twice daily. - senna (SENOKOT) 8.6 mg tab Take 2 tablets by mouth once daily as needed (Constipation). - aspirin, enteric coated (ASPIRIN, ENTERIC COATED) 81 mg EC tablet Take 2 tablets by mouth once daily. - carvedilol (COREG) 25 mg tablet Take 25 mg by mouth twice daily with meals. - insulin glargine (LANTUS U-100 INSULIN) 100 unit/mL injection Inject 22 Units subcutaneously daily at bedtime. [facility]. - amLODIPine (NORVASC) 5 mg tablet Take 10 mg by mouth once daily. - atorvastatin (LIPITOR) 20 mg tablet Take 40 mg by mouth daily at bedtime. [facility]. - insulin aspart U-100 (NOVOLOG) 100 unit/mL (3 mL) 6 - 12 units as needed with a meal. [facility]. - glipiZIDE (GLUCOTROL) 5 mg tablet Take 10 mg by mouth daily before dinner. [facility]. - losartan (COZAAR) 100 mg tablet Take one tablet daily Meds Comments as of 02/22/2022: Patient to call in medications to update Problem List As Of Date 03/15/2022 Noted Resolved Type 2 diabetes mellitus with stage 3 chronic k* Other and Unspecified Hyperlipidemia [E78.5] 01/27/2010 BPH without urinary obstruction [N40.0] Unspecified hemorrhoids without mention of comp* 02/09/2016 Anemia, unspecified [D64.9] 02/09/2016 Acute gastritis without mention of hemorrhage [*09/04/2005 02/09/2016 PAIN JOINT, KNEE [M25.569] 10/03/2005 02/09/2016 Labyrinthitis, unspecified [H83.09] 08/05/2006 02/09/2016 Chronic obstructive pulmonary disease with acut*09/15/2007 Hyperlipidemia [E78.5] 09/02/2009 Hearing loss [H91.90] 05/23/2010 Overweight (BMI 25.0-29.9) [E66.3] 03/02/2013 Undiagnosed cardiac murmurs [R01.1] 03/02/2013 02/09/2016 Coronary artery disease involving [place] sue*02/09/2016 CKD (chronic kidney disease) stage 3, GFR 30-59*02/09/2016 Aortic stenosis, mild [I35.0] 02/09/2016 Colon cancer screening [Z12.11] 04/12/2016 04/12/2016 S/P CABG x 4 [Z95.1] 08/06/2016 Lumbar stenosis with neurogenic claudication [M*11/19/2017 01/23/2018 Lumbar spondylosis [M47.816] 12/04/2017 S/P lumbar laminectomy [Z98.890] 12/04/2017 Acute postoperative pain [G89.18] 12/04/2017 01/23/2018 Incidental durotomy [G97.41] 12/04/2017 Radiculopathy, lumbar region [M54.16] 07/13/2019 Encounter Status:Closed by YARITZA PLUMMER on 03/15/22 Normal [facility] CT ABD/PEL WO IVCONon 2021 CT ABD/PEL WO IVCON * * *Final Report* * * DATE OF EXAM: Feb 23 2022 9:53AM [facility] 0531 - CT ABD/PEL WO IVCON / PROCEDURE REASON: multiple diagnoses * * * * Physician Interpretation * * * * EXAMINATION: CT ABDOMEN AND PELVIS WITHOUT IV CONTRAST CLINICAL HISTORY: Gastroesophageal reflux disease, unspecified whether esophagitis present Iron deficiency anemia, unspecified iron deficiency anemia type Abdominal hernia without obstruction and without gangrene, recurrence not specified, unspecified hernia type TECHNIQUE: Non-IV contrast imaging of the abdomen and pelvis was performed using standard technique, scanning from just above the dome of the diaphragm to the symphysis pubis. Unenhanced imaging is limited for the evaluation of some intra-abdominal and pelvic pathology. MQ: CTAPWO_3 Contrast: IV: None Oral: 50 ml of Omni 240 10-25ml diluted with water CT Radiation dose: Integrated Dose-length product (DLP) for this visit = 439 mGy*cm. CT Dose Reduction Employed: Automated exposure control(AEC) and iterative recon COMPARISON: Lumbar spine x-ray 12/03/2017 RESULT: Abdomen / Pelvis: Liver: Unremarkable. Biliary: The gallbladder is unremarkable. Spleen: No splenomegaly. Pancreas: Unremarkable. Adrenals: No mass. Kidneys: No calculus, hydronephrosis or finding to suggest a cyst or mass in the unenhanced kidney. GI Tract: No bowel dilation. Normal appendix. No diverticulosis. Lymph Nodes: No lymphadenopathy. Mesentery/peritoneum: No ascites. Retroperitoneum: No mass. Vasculature: Arterial atherosclerotic disease without aneurysm. Pelvis: No mass or ascites. Bones/Soft Tissues: Mild to moderate compressive deformity of the L1 vertebral body, not significantly changed in comparison to previous radiograph. There is a fat-containing umbilical hernia measuring 2.4 x 2.7 x 1.5 cm. Lower thorax: Unremarkable. Lining Cementer (topogram) images: No additional findings. IMPRESSION: No acute finding. Fat-containing umbilical hernia Chlorobutadiene Scrubber Operator: NANNETTE Transcribe Date/Time: Feb 26 2022 10:34A Dictated by : AUNG THOMAS MD This examination was interpreted and the report reviewed and electronically signed by: AUNG THOMAS MD on Feb 26 2022 10:45AM EST [id number] Normal [facility] CBC W Auto Differential pane l (Bld)on 02-22-2022 Basophils (Bld) [#/Vol] 0.07 10*3/uL Normal <0.11 [facility] Comment on above: Order Comment: Speci men Type: BLOOD SPECIMENOrdering Facility: [facility] Address: [address] [place] [address] Performed By: #### 5 7021-8 ####[facility] [id number] [place] [address] [place] Basophils/100 WBC (Bld) 0.8 % Normal C [facility] Comment on above: Order Comment: Speci men Type: BLOOD SPECIMENOrdering Facility: [facility] Address: [address] [place] [address] Performed By: #### 5 7021-8 ####[facility] [id number] [place] [address] [place] Differential cell count method Nom (Bld) Auto Normal [facility] Comment on above: Order Comment: Speci men Type: BLOOD SPECIMENOrdering Facility: [facility] Address: [address] [place] [address] Performed By: #### 5 7021-8 ####[facility] [id number] [place] [address] [place] Eosinophils (Bld) [#/Vol] 0.76 10*3/uL High <0.46 [facility] Comment on above: Order Comment: Speci men Type: BLOOD SPECIMENOrdering Facility: [facility] Address: [address] [place] [address] Performed By: #### 5 7021-8 ####[facility] [id number] [place] [address] [place] Eosinophils/100 WBC (Bld) 8.5 % Normal [facility] Comment on above: Order Comment: Speci men Type: BLOOD SPECIMENOrdering Facility: [facility] Address: [address] [place] [address] Performed By: #### 5 7021-8 ####[facility] [id number] [place] [address] [place] Erythrocyte distribution width (RBC) [Ratio] 12.2 % Normal 11.5-15.0 [facility] Comment on above: Order Comment: Speci men Type: BLOOD SPECIMENOrdering Facility: [facility] Address: [address] [place] [address] Performed By: #### 5 7021-8 ####[facility] [id number] [place] [address] [place] Hematocrit (Bld) [Volume fraction] 34.6 % Low 39.0-51.0 [facility] Comment on above: Order Comment: Speci men Type: BLOOD SPECIMENOrdering Facility: [facility] Address: [address] [place] [address] Performed By: #### 5 7021-8 ####[facility] [id number] [place] [address] [place] Hemoglobin (Bld) [Mass/Vol] 11.8 g/dL Low 13.0-17.0 [facility] Comment on above: Order Comment: Speci men Type: BLOOD SPECIMENOrdering Facility: [facility] Address: [address] [place] [address] Performed By: #### 5 7021-8 ####[facility] [id number] [place] [address] [place] IMMATURE GRAN % 0.1 % Normal [facility] Comment on above: Order Comment: Speci men Type: BLOOD SPECIMENOrdering Facility: [facility] Address: [address] [place] [address] Performed By: #### 5 7021-8 ####[facility] [id number] [place] [address] [place] IMMATURE GRAN ABS <0.03 Normal <0.10 [facility] Comment on above: Order Comment: Speci men Type: BLOOD SPECIMENOrdering Facility: [facility] Address: [address] [place] [address] Performed By: #### 5 7021-8 ####[facility] [id number] [place] [address] [place] Lymphocytes (Bld) [#/Vol] 2.06 10*3/uL Normal 1.00-4.00 [facility] Comment on above: Order Comment: Speci men Type: BLOOD SPECIMENOrdering Facility: [facility] Address: [address] [place] [address] Performed By: #### 5 7021-8 ####[facility] [id number] [place] [address] [place] Lymphocytes/100 WBC (Bld) 23.0 % Normal [facility] Comment on above: Order Comment: Speci men Type: BLOOD SPECIMENOrdering Facility: [facility] Address: [address] [place] [address] Performed By: #### 5 7021-8 ####[facility] [id number] [place] [address] [place] MCH (RBC) [Entitic mass] 30.0 pg Normal 26.0-34.0 [facility] Comment on above: Order Comment: Speci men Type: BLOOD SPECIMENOrdering Facility: [facility] Address: [address] [place] [address] Performed By: #### 5 7021-8 ####[facility] [id number] [place] [address] [place] MCHC (RBC) [Mass/Vol] 34.1 g/dL Normal 30.5-36.0 [facility] Comment on above: Order Comment: Speci men Type: BLOOD SPECIMENOrdering Facility: [facility] Address: [address] [place] [address] Performed By: #### 5 7021-8 ####[facility] [id number] [place] [address] [place] MCV (RBC) [Entitic vol] 88.0 fL Normal 80.0-100.0 C [facility] Comment on above: Order Comment: Speci men Type: BLOOD SPECIMENOrdering Facility: [facility] Address: [address] [place] [address] Performed By: #### 5 7021-8 ####[facility] [id number] [place] [address] [place] Monocytes (Bld) [#/Vol] 0.87 10*3/uL High <0.87 [facility] Comment on above: Order Comment: Speci men Type: BLOOD SPECIMENOrdering Facility: [facility] Address: [address] [place] [address] Performed By: #### 5 7021-8 ####[facility] [id number] [place] [address] [place] Monocytes/100 WBC (Bld) 9.7 % Normal [facility] Comment on above: Order Comment: Speci men Type: BLOOD SPECIMENOrdering Facility: [facility] Address: [address] [place] [address] Performed By: #### 5 7021-8 ####[facility] [id number] [place] [address] [place] Neutrophils (Bld) [#/Vol] 5.17 10*3/uL Normal 1.45-7.50 [facility] Comment on above: Order Comment: Speci men Type: BLOOD SPECIMENOrdering Facility: [facility] Address: [address] [place] [address] Performed By: #### 5 7021-8 ####[facility] [id number] [place] [address] [place] Neutrophils/100 WBC (Bld) 57.9 % Normal [facility] Comment on above: Order Comment: Speci men Type: BLOOD SPECIMENOrdering Facility: [facility] Address: [address] [place] [address] Performed By: #### 5 7021-8 ####[facility] [id number] [place] [address] [place] Nucleated RBC (Bld) [#/Vol] 10*3/uL Normal <0.01 [facility] Comment on above: Order Comment: Speci men Type: BLOOD SPECIMENOrdering Facility: [facility] Address: [address] [place] [address] Performed By: #### 5 7021-8 ####[facility] [id number] [place] [address] [place] Nucleated RBC/100 WBC (Bld) [Ratio] 0.0 /100 WBC Normal [facility] Comment on above: Order Comment: Speci men Type: BLOOD SPECIMENOrdering Facility: [facility] Address: [address] [place] [address] Performed By: #### 5 7021-8 ####[facility] [id number] [place] [address] [place] Platelet mean volume (Bld) [Entitic vol] 9.1 fL Normal 9.0-12.7 [facility] Comment on above: Order Comment: Speci men Type: BLOOD SPECIMENOrdering Facility: [facility] Address: [address] [place], [place] [id number] Performed By: #### 5 7021-8 ####[facility] [id number] [place] [address] [place] Platelets (Bld) [#/Vol] 217 10*3/uL Normal 150-400 [facility] Comment on above: Order Comment: Speci men Type: BLOOD SPECIMENOrdering Facility: [facility] Address: [address] [place], [place] [address] Performed By: #### 5 7021-8 ####[facility] [id number] [place] [address] [place] RBC (Bld) [#/Vol] 3.93 10*6/uL Low 4.20-6.00 [facility] Comment on above: Order Comment: Speci men Type: BLOOD SPECIMENOrdering Facility: [facility] Address: [address] [place] [address] Performed By: #### 5 7021-8 ####[facility] HOSPITALNCLICrissy [id number] [address] OF [facility] WBC (Bld) [#/Vol] 8.94 10*3/uL Normal 3.70-11.00 [facility] Comment on above: Order Comment: Speci men Type: BLOOD SPECIMENOrdering Facility: [facility] Address: [address] [place] [address] Performed By: #### 5 7021-8 ####[facility]ITAL[facility]CL[facility] [id number] [address] [place] Abs Immature Gran <0.10 k/uL [facility] Basophils (Bld) [#/Vol] 0.07 10*3/uL <0.11 k/uL [facility] Basophils/100 WBC (Bld) 0.8 % [facility] Differential cell count method Nom (Bld) Auto [facility] Eosinophils (Bld) [#/Vol] 0.76 10*3/uL High <0.46 k/uL [facility] Eosinophils/100 WBC (Bld) 8.5 % [facility] Erythrocyte distribution width (RBC) [Ratio] 12.2 % 11.5 - 15.0 % [facility] Hematocrit (Bld) [Volume fraction] 34.6 % Low 39.0 - 51.0 % [facility] Hemoglobin (Bld) [Mass/Vol] 11.8 g/dL Low 13.0 - 17.0 g/dL [facility] Immature Gran % 0.1 % [facility] Lymphocytes (Bld) [#/Vol] 2.06 10*3/uL 1.00 - 4.00 k/uL [facility] Lymphocytes/100 WBC (Bld) 23.0 % [facility] MCH (RBC) [Entitic mass] 30.0 pg 26.0 - 34.0 pg [facility] MCHC (RBC) [Mass/Vol] 34.1 g/dL 30.5 - 36.0 g/dL [facility] MCV (RBC) [Entitic vol] 88.0 fL 80.0 - 100.0 fL [facility] Monocytes (Bld) [#/Vol] 0.87 10*3/uL High <0.87 k/uL [facility] Monocytes/100 WBC (Bld) 9.7 % [facility] Neutrophils (Bld) [#/Vol] 5.17 10*3/uL 1.45 - 7.50 k/uL [facility] Neutrophils/100 WBC (Bld) 57.9 % [facility] Nucleated RBC (Bld) [#/Vol] <0.01 k/uL [facility] Nucleated RBC/100 WBC (Bld) [Ratio] 0.0 /100 WBC [facility] Platelet mean volume (Bld) [Entitic vol] 9.1 fL 9.0 - 12.7 fL [facility] Platelets (Bld) [#/Vol] 217 10*3/uL 150 - 400 k/uL [facility] RBC (Bld) [#/Vol] 3.93 10*6/uL Low 4.20 - 6.0 0 m/uL [facility] WBC (Bld) [#/Vol] 8.94 10*3/uL 3.70 - 11. 00 k/uL [facility] CNOVon 02-22-2022 CNOV Office Visit (SWS ) SAM VIDALES ([id number]) 1950 M Date Time Provider Department 02/22/22 1:20 PM JESS BAKER During your visit today, we recorded the following information about you: Temperature Pulse Blood pressure Weight 98.4 degrees 79/minute 128/74 82.6 kg Height 1.753 m Jess Baker MD 02/22/2022 1:52 PM Signed Bowel Preparation Instructions for: Golytely, Nulytely, Trilyte or Colyte (polyethylene glycol 3350 and electrolytes) IF YOU DO NOT FOLLOW THESE DIRECTIONS, YOUR COLONOSCOPY WILL BE CANCELLED. Minor Instructions: Your bowel must be empty so that your doctor can clearly view your colon. Follow all of the instructions in this handout EXACTLY as they are written. Do NOT eat any solid food the ENTIRE day before your colonoscopy. Drink only clear liquids. Buy your bowel preparation at least 5 days before your colonoscopy. TRANSPORTATION on the Day of Your Exam A responsible person MUST be present with you at Check In prior to your colonoscopy and REMAIN in the endoscopy area until you are discharged. You are NOT ALLOWED to drive, take a taxi or bus, or leave the Endoscopy Center ALONE. If you do not have a responsible charter driver (family member or friend) with you to take you home, your exam cannot be done with sedation and will be cancelled. Please bring a list of all of your current medications, including any Over-the Counter medications with you. Medications If you take insulin, diabetic medications or blood thinners such as Coumadin (warfarin), Plavix (clopidogrel), Ticlid (ticlopidine hydrochloride), Agrylin (anagrelide), Xarelto (Rivaroxaban), Pradaxa (Dabigatran), Eliquis (Apixaban), and Effient (Prasugrel). You MUST call the doctors who orders those medicines for instructions on altering the dosage before your colonoscopy. All other medications should be taken the day of the exam with a sip of water including ASPIRIN. Five (5) Days Before Your Colonoscopy Do NOT take medicines that stop diarrhea - such as Imodium, Kaopectate, or Pepto Bismol. Do NOT take fiber supplements - such as Metamucil, Citrucel, or Perdiem. Do NOT take products that contain iron - such as multi-vitamins (the label lists what is in the products). Do NOT take Vitamin E. Buy the prescription bowel preparation solution at your local pharmacy or drugstore pharmacy. 06/2019 Bowel Preparation Instructions for: Golytely, Nulytely, Trilyte or Colyte (polyethylene glycol 3350 and electrolytes) Three (3) Days Before Your Colonoscopy Do NOT eat high-fiber foods - such as popcorn, beans, seeds (flax, sunflower, quinoa), multigrain bread, nuts, salad/vegetables, or fresh and dried fruit. One (1) Day Before Your Colonoscopy Only drink clear liquids the ENTIRE DAY before your colonoscopy. Do NOT eat any solid foods. Drink at least 8 ounces of clear liquids every hour after waking up. The clear liquids you can drink include: Clear Liquid (NO RED LIQUIDS) DO NOT DRINK Gatorade, Pedialyte or Powerade Clear broth or bouillon Coffee or tea (no milk or non-dairy creamer) Carbonated and non-carbonated soft drinks Castro-Aid or other fruit flavored drinks Strained fruit juices (no pulp) Jell-O, popsicles, hard candy Water Alcohol Milk or non-dairy creamers Noodles or vegetables in soup Juice with pulp Liquid you cannot see through Do not use tobacco/vaping products The bowel preparation solution will be consumed in two parts. Mix the solution the evening before your colonoscopy and refrigerate before drinking. You may add the flavor pack that came with the bowel preparation. Do NOT add ice, sugar or any other flavorings to the solution. Part 1 At 6:00 PM - - 2 Evenings before your colonoscopy Drink an 8-oz glass of bowel preparation every 10 minutes half the jug Part 2 At 6:00 PM - Evening before your colonoscopy Drink an 8-oz glass of bowel preparation every 10 minutes second half of jug You may continue to drink clear liquids until midnight. 2 06/2019 Sarah Leal LPN 02/22/2022 2:13 PM Signed REVIEW OF SYSTEMS: General: The patient notes fatigue, notes weight loss, denies weight gain, denies feeling hot, and denies feelings of cold. Eyes: The patient denies glaucoma, denies eye injury/surgery, wears glasses or contacts. Ear/Nose/Throat: The patient denies allergies, notes hayfever, denies ear infections, and denies bloody noses. Cardiovascular: The patient denies chest pain, notes heart disease, denies high blood pressure,denies cardiac stent, denies prior heart attack, denies irregular heart beat, denies high cholesterol, denies poor circulation, denies heart failure, other cardiac issues, denies claudication, denies cold feet, denies peripheral arterial stent. Respiratory: The patient denies tuberculosis, denies pneumonia, denies frequent cough, de (more content not included)... Normal [facility] metabolic 2000 panelon 02-22-2022 Albumin [Mass/Vol] 4.5 g/dL Normal 3.9-4.9 [facility] Comment on above: Order Comment: Speci men Type: BLOOD SPECIMENOrdering Facility: [facility] Address: [address] [place] [address] Performed By: #### 2 4323-8 ####[facility] DEVAN MILLTOWNCLIA [id number] [place] [address] [place] ALP [Catalytic activity/Vol] 106 U/L Normal 38-113 [facility] Comment on above: Order Comment: Speci men Type: BLOOD SPECIMENOrdering Facility: [facility] Address: [address] [place] [address] Performed By: #### 2 4323-8 ####[facility]ITALWNCLIA [id number] [place] [address] [place] ALT [Catalytic activity/Vol] 23 U/L Normal 10-54 [facility] Comment on above: Order Comment: Speci men Type: BLOOD SPECIMENOrdering Facility: [facility] Address: [address] [place] [address] Performed By: #### 2 4323-8 ####[facility] HOSPITALWNCLIA [id number] [place] [address] [place] Anion gap [Moles/Vol] 11 mmol/L Normal 9-18 [facility] Comment on above: Order Comment: Speci men Type: BLOOD SPECIMENOrdering Facility: [facility] Address: [address] [place] [address] Performed By: #### 2 4323-8 ####[facility]OS[facility]ITALWNCLIA [id number] [place] [address] [place] AST [Catalytic activity/Vol] 19 U/L Normal 14-40 [facility] Comment on above: Order Comment: Speci men Type: BLOOD SPECIMENOrdering Facility: [facility] Address: [address] [place], [place] [id number] Performed By: #### 2 4323-8 ####[facility] DIALLOA [id number] [place] [address] [place] Bilirubin [Mass/Vol] 0.3 mg/dL Normal 0.2-1.3 [facility] Comment on above: Order Comment: Speci men Type: BLOOD SPECIMENOrdering Facility: [facility] Address: [address] [place] [address] Performed By: #### 2 4323-8 ####[facility] CHONGKIRKVILLEKARENA [id number] [place] [address] [place] Calcium [Mass/Vol] 9.3 mg/dL Normal 8.5-10.2 [facility] Comment on above: Order Comment: Speci men Type: BLOOD SPECIMENOrdering Facility: [facility] Address: [address] [place] [address] Performed By: #### 2 4323-8 ####[facility]FF[facility] HOSPITALCATEA [id number] [place] [address] [place] Chloride [Moles/Vol] 104 mmol/L Normal 97-105 [facility] Comment on above: Order Comment: Speci men Type: BLOOD SPECIMENOrdering Facility: [facility] Address: [address] [place], [place] [id number] Performed By: #### 2 4323-8 ####[facility]CL[facility] [id number] [place] [address] [place] CO2 [Moles/Vol] 24 mmol/L Normal 22-30 [facility] Comment on above: Order Comment: Speci men Type: BLOOD SPECIMENOrdering Facility: [facility] Address: [address] [place], [place] [id number] Performed By: #### 2 4323-8 ####[facility]OS[facility]ITALWNCLIA [id number] [place] [address] [place] Creatinine [Mass/Vol] 2.21 mg/dL High 0.73-1.22 [facility] Comment on above: Order Comment: Reyes terrazas Type: BLOOD SPECIMENOrdering Facility: [facility] Address: [address] [place] [address] Performed By: #### 2 4323-8 ####[facility] WOMENNCLI [id number] [place] [address] [place] ESTIMATED GLOMERULAR FILTRATION RATE 31 mL/min/1.73m??? Low >=60 [facility] Comment on above: Order Comment: Reyes terrazas Type: BLOOD SPECIMENOrdering Facility: [facility] Address: [address] [place] [address] Result Comment: Li mated Glomerular Filtration Rate (eGFR) is calculated using the 2020 CKD-EPI creatinine equation. This equation utilizes serum creatinine, sex, and age as parameters. The creatinine assay has traceable calibration to isotope dilution-mass spectrometry. Refer to KDIGO guidelines for clinical interpretation. In patients with unstable renal function, e.g. those with acute kidney injury, the eGFR may not accurately reflect actual GFR. Performed By: #### 2 4323-8 ####[facility]CLIA [id number] [place] [address] [place] Glucose [Mass/Vol] 79 mg/dL Normal 74-99 [facility] Comment on above: Order Comment: Reyes terrazas Type: BLOOD SPECIMENOrdering Facility: [facility] Address: [address] [address] Result Comment: The [place] [employer] (ADA) provides guidance for cutoff values for fasting glucose and random glucose. The ADA defines fasting as no caloric intake for at least 8 hours. Fasting plasma glucose results between 100 to 125 [...] Standards of Medical Care in Diabetes 2016, [place] [employer]. Diabetes Care. 2016.39(Suppl 1). Performed By: #### 2 4323-8 ####[facility] MILLWTRINIDADLIA [id number] [place] [address] [place] Potassium [Moles/Vol] 4.7 mmol/L Normal 3.7-5.1 [facility] Comment on above: Order Comment: Speci men Type: BLOOD SPECIMENOrdering Facility: [facility] Address: [address] [place] [address] Performed By: #### 2 4323-8 ####[facility] WOMENTRINIDADLIA [id number] [place] [address] [place] Protein [Mass/Vol] 7.1 g/dL Normal 6.3-8.0 [facility] Comment on above: Order Comment: Speci men Type: BLOOD SPECIMENOrdering Facility: [facility] Address: [address] [place] [address] Performed By: #### 2 4323-8 ####[facility]FF[facility] HOSPITALLIA [id number] [place] [address] [place] Sodium [Moles/Vol] 139 mmol/L Normal 136-144 [facility] Comment on above: Order Comment: Speci men Type: BLOOD SPECIMENOrdering Facility: [facility] Address: [address] [place] [address] Performed By: #### 2 4323-8 ####[facility] HOSPITALWNCLIA [id number] [place] [address] [place] Urea nitrogen [Mass/Vol] 29 mg/dL High 9-24 [facility] Comment on above: Order Comment: Speci men Type: BLOOD SPECIMENOrdering Facility: [facility] Address: [facility] [place] [address] Performed By: #### 2 4323-8 ####[facility] DEVAN ABEBE [id number] [place] [address] [place] Albumin [Mass/Vol] 4.5 g/dL 3.9 - 4.9 g/dL [facility] ALP [Catalytic activity/Vol] 106 U/L 38 - 113 U/L [facility] ALT [Catalytic activity/Vol] 23 U/L 10 - 54 U/L [facility] Anion gap [Moles/Vol] 11 mmol/L 9 - 18 mmol/L [facility] AST [Catalytic activity/Vol] 19 U/L 14 - 40 U/L [facility] Bilirubin [Mass/Vol] 0.3 mg/dL 0.2 - 1 .3 mg/dL [facility] Calcium [Mass/Vol] 9.3 mg/dL 8.5 - 10. 2 mg/dL [facility] Chloride [Moles/Vol] 104 mmol/L 97 - 10 5 mmol/L [facility] CO2 [Moles/Vol] 24 mmol/L 22 - 30 mmol/L [facility] Creatinine [Mass/Vol] 2.21 mg/dL High 0.73 - 1.22 mg/dL [facility] Estimated Glomerular Filtration Rate 31 mL/min/1.73m Low >=60 mL/min/1.73m [facility] Glucose [Mass/Vol] 79 mg/dL 74 - 99 mg/dL [facility] Potassium [Moles/Vol] 4.7 mmol/L 3.7 - 5.1 mmol/L [facility] Protein [Mass/Vol] 7.1 g/dL 6.3 - 8.0 g/dL [facility] Sodium [Moles/Vol] 139 mmol/L 136 - 144 mmol/L [facility] Urea nitrogen [Mass/Vol] 29 mg/dL High 9 - 24 mg/dL [facility] Basophil percentageon 2021 Chloride [Moles/Vol] 104 mmol/L 98-107 [facility] Work Phone: Glucose [Mass/Vol] 109 mg/dL 74-106 [facility] Work Phone: Comment on above: Fasting Glucose resu lt from 100 to 125 mg/dL suggests IMPAIRED HOMEOSTASIS per A.D.A. criteria. Potassium [Moles/Vol] 4.0 mmol/L 3.5-5.1 [facility] Work Phone: Sodium [Moles/Vol] 139 mmol/L 136-145 [facility] Work Phone: Laboratory - Chemistry and C hemistry - challengeon 11-13-2021 CO2 [Moles/Vol] 28.0 mmol/L 21.0-32.0 [facility] Work Phone: Urea nitrogen/Creatinine [Mass ratio] 10.7 mg/mg 10-20 [facility] Work Phone: No Panel Informationon 11-13 Estimated GFR (MDRD) Amer 30 mL/min >60 [facility] Work Phone: Comment on above: GFR Calc Estimated GFR (MDRD) Non-Af Amer 25 mL/min >60 [facility] Work Phone: Comment on above: Non- GFR Calc Serum or plasma calcium tanya urement (mass/volume)on 11-13-2021 Calcium [Mass/Vol] 8.8 mg/dL 8.5-10.1 [facility] Work Phone: Serum or plasma creatinine m easurement (mass/volume)on 11-13-2021 Creatinine [Mass/Vol] 2.70 mg/dL 0.70-1.30 [facility] Work Phone: Comment on above: The validity of the calculated GFR & GFRAA in patients over 70 years has not been determined. Clinical correlation is essential. Serum or plasma urea nitroge n measurement (mass/volume)on 11-13-2021 Urea nitrogen [Mass/Vol] 29 mg/dL 7-18 [facility] Work Phone: Thin prep Papanicolaou smear with manual screeningon 11-13-2021 Thin prep Papanicolaou smear with manual screening 7 5-15 [facility] Work Phone: Absolute lymphocyte counton 10-09-2021 Lymphocytes Auto (Unsp spec) [#/Vol] 1.91 10*3/uL 0.83-4.51 [facility] Work Phone: Basophil percentageon 2021 Basophils/100 WBC (Bld) 0.8 % 0-1 [facility] Work Phone: Chloride [Moles/Vol] 105 mmol/L 98-107 [facility] Work Phone: Eosinophils/100 WBC (Bld) 8.5 % 0-5 [facility] Work Phone: Glucose [Mass/Vol] 126 mg/dL 74-106 [facility] Work Phone: Comment on above: Fasting Glucose resu lt greater than or equal to 126 mg/dL suggests DIABETES MELLITUS per A.D.A. criteria. Neutrophils (Bld) [#/Vol] 4.1 10*3/uL 2.0-7.7 [facility] Work Phone: Neutrophils/100 WBC (Bld) 56.5 % 47-70 [facility] Work Phone: Potassium [Moles/Vol] 5.0 mmol/L 3.5-5.1 [facility] Work Phone: Sodium [Moles/Vol] 139 mmol/L 136-145 [facility] Work Phone: [phone] WBC (Bld) [#/Vol] 7.3 10*3/uL 4.4-11.0 [facility] Work Phone: Blood erythrocytes count (nu mber/volume)on 10-09-2021 RBC (Bld) [#/Vol] 4.25 10*6/uL 4.6-6.2 [facility] Work Phone: Blood hemoglobin measurement (mass/volume)on 10-09-2021 Hemoglobin (Bld) [Mass/Vol] 12.6 g/dL 13.0-16.5 [facility] Work Phone: Blood lymphocytes/100 leukoc yteson 10-09-2021 Lymphocytes/100 WBC (Bld) 26.2 % 19-41 [facility] Work Phone: Blood monocytes/100 leukocyt eson 10-09-2021 Monocytes/100 WBC (Bld) 7.7 % 0-10 [facility] Work Phone: Blood platelet mean volumeon 10-09-2021 Platelet mean volume (Bld) [Entitic vol] 9.0 fL 6.2-12.0 [facility] Work Phone: Determination of erythrocyte mean corpuscular volume (MCV)on 10-09-2021 MCV (RBC) [Entitic vol] 86.8 fL 80-94 [facility] Work Phone: Hematocrit Auto (Bld) [Volum e fraction]on 10-09-2021 Hematocrit (Bld) [Volume fraction] 36.9 % 40-54 [facility] Work Phone: Laboratory - Chemistry and C hemistry - challengeon 10-09-2021 CO2 [Moles/Vol] 30.0 mmol/L 21.0-32.0 [facility] Work Phone: Urea nitrogen/Creatinine [Mass ratio] 12.4 mg/mg 10-20 [facility] Work Phone: Laboratory - Hematology and Cell countson 10-09-2021 Erythrocyte distribution width (RBC) [Entitic vol] 38.6 fL 35.1-43.9 [facility] Work Phone: Erythrocyte distribution width (RBC) [Ratio] 12.2 % 11.6-14.6 [facility] Work Phone: Immature granulocytes/100 WBC (Bld) 0.300 % 0.0-0.9 [facility] Work Phone: Comment on above: IG% - Immature Granu locytes (promyelocytes, myelocytes and metamyelocytes) > 1% indicates that a LEFT SHIFT is Present. MCH (RBC) [Entitic mass] 29.6 pg 27.0-32.0 [facility] Work Phone: Nucleated RBC/100 WBC (Bld) [Ratio] 0 % 0-5 [facility] Work Phone: MCHC Auto (RBC) [Mass/Vol]on 10-09-2021 MCHC (RBC) [Mass/Vol] 34.1 g/dL 32-36 [facility] Work Phone: No Panel Informationon 10-09 Estimated GFR (MDRD) Amer 40 mL/min >60 [facility] Work Phone: Comment on above: GFR Calc Estimated GFR (MDRD) Non-Af Amer 33 mL/min >60 [facility] Work Phone: Comment on above: Non- GFR Calc Thyroid Stimulating Hormone (TSH) 2.86 uIU/mL 0.358-3.74 [facility] Work Phone: Platelets bldon 10-09-2021 Platelets (Bld) [#/Vol] 245 10*3/uL 150-450 [facility] Work Phone: Serum or plasma calcium tanya urement (mass/volume)on 10-09-2021 Calcium [Mass/Vol] 8.8 mg/dL 8.5-10.1 [facility] Work Phone: Serum or plasma creatinine m easurement (mass/volume)on 10-09-2021 Creatinine [Mass/Vol] 2.10 mg/dL 0.70-1.30 [facility] Work Phone: Comment on above: The validity of the calculated GFR & GFRAA in patients over 70 years has not been determined. Clinical correlation is essential. Serum or plasma urea nitroge n measurement (mass/volume)on 10-09-2021 Urea nitrogen [Mass/Vol] 26 mg/dL 7-18 [facility] Work Phone: Thin prep Papanicolaou smear with manual screeningon 10-09-2021 Thin prep Papanicolaou smear with manual screening 4 5-15 [facility] Work Phone: Basophil percentageon 2021 Chloride [Moles/Vol] 106 mmol/L 98-107 [facility] Work Phone: Glucose [Mass/Vol] 173 mg/dL 74-106 [facility] Work Phone: Comment on above: Fasting Glucose resu lt greater than or equal to 126 mg/dL suggests DIABETES MELLITUS per A.D.A. criteria. Potassium [Moles/Vol] 4.7 mmol/L 3.5-5.1 [facility] Work Phone: Sodium [Moles/Vol] 140 mmol/L 136-145 [facility] Work Phone: WBC (Bld) [#/Vol] 7.0 10*3/uL 4.4-11.0 [facility] Work Phone: Blood erythrocytes count (nu mber/volume)on 08-01-2021 RBC (Bld) [#/Vol] 4.51 10*6/uL 4.6-6.2 [facility] Work Phone: Blood hemoglobin measurement (mass/volume)on 08-01-2021 Hemoglobin (Bld) [Mass/Vol] 13.1 g/dL 13.0-16.5 [facility] Work Phone: Blood platelet mean volumeon 08-01-2021 Platelet mean volume (Bld) [Entitic vol] 8.8 fL 6.2-12.0 [facility] Work Phone: Determination of erythrocyte mean corpuscular volume (MCV)on 08-01-2021 MCV (RBC) [Entitic vol] 88.5 fL 80-94 [facility] Work Phone: Hematocrit Auto (Bld) [Volum e fraction]on 08-01-2021 Hematocrit (Bld) [Volume fraction] 39.9 % 40-54 [facility] Work Phone: Laboratory - Chemistry and C hemistry - challengeon 08-01-2021 CO2 [Moles/Vol] 31.0 mmol/L 21.0-32.0 [facility] Work Phone: Urea nitrogen/Creatinine [Mass ratio] 12.1 mg/mg 10-20 [facility] Work Phone: Laboratory - Hematology and Cell countson 08-01-2021 Erythrocyte distribution width (RBC) [Entitic vol] 39.7 fL 35.1-43.9 [facility] Work Phone: Erythrocyte distribution width (RBC) [Ratio] 12.3 % 11.6-14.6 [facility] Work Phone: MCH (RBC) [Entitic mass] 29.0 pg 27.0-32.0 [facility] Work Phone: MCHC Auto (RBC) [Mass/Vol]on 08-01-2021 MCHC (RBC) [Mass/Vol] 32.8 g/dL 32-36 [facility] Work Phone: No Panel Informationon 08-01 Estimated GFR (MDRD) Amer 39 mL/min >60 [facility] Work Phone: Comment on above: GFR Calc Estimated GFR (MDRD) Non-Af Amer 32 mL/min >60 [facility] Work Phone: Comment on above: Non- GFR Calc Platelets bldon 08-01-2021 Platelets (Bld) [#/Vol] 256 10*3/uL 150-450 [facility] Work Phone: Serum or plasma calcium tanya urement (mass/volume)on 08-01-2021 Calcium [Mass/Vol] 9.0 mg/dL 8.5-10.1 [facility] Work Phone: Serum or plasma creatinine m easurement (mass/volume)on 08-01-2021 Creatinine [Mass/Vol] 2.15 mg/dL 0.70-1.30 [facility] Work Phone: Comment on above: The validity of the calculated GFR & GFRAA in patients over 70 years has not been determined. Clinical correlation is essential. Serum or plasma urea nitroge n measurement (mass/volume)on 08-01-2021 Urea nitrogen [Mass/Vol] 26 mg/dL 7-18 [facility] Work Phone: Thin prep Papanicolaou smear with manual screeningon 08-01-2021 Thin prep Papanicolaou smear with manual screening 3 5-15 [facility] Work Phone: Office Visit: [facility] 05-27-20 Dietary management education, guidance, and counseling (procedure) yes Invalid Interpretation Code [facility] Work Phone: [phone] Documentation of current medications (procedure) Done Invalid Interpretation Code [facility] Work Phone: [phone] Fall risk assessment No Invalid Interpretation Code [facility] Work Phone: [phone] Office Visiton 03-25-2017 Tobacco use CPHS Former smoker Invalid Interpretation Code [facility] Work Phone: [phone] Chart Maintenanceon 02-26-20 Left ventricular Ejection fraction 56 % Invalid Interpretation Code [facility] Work Phone: [phone] Lab Report: CBC W/Diff, Auto matedon 09-21-2016 Absolute Neut 3.2 X10 3/UL Invalid Interpretation Code 2.0-7.7 [facility] Work Phone: [phone] Basophils/100 WBC Auto (Bld) 0.9 % Invalid Interpretation Code 0-1 [facility] Work Phone: [phone] Eosinophils/100 leukocytes 8.2 % High 0-5 [facility] Work Phone: [phone] Erythrocyte distribution width Auto Ratio (RBC) 13.5 % Invalid Interpretation Code 11.6-14.6 [facility] Work Phone: [phone] Erythrocytes (RBC) 4.12 10*6/uL Low 4.6-6.2 [facility] Work Phone: [phone] Hematocrit (HCT) 39.1 % Low 40-54 [facility] Work Phone: [phone] Hemoglobin mass conc (Bld) 12.8 g/dL Low 13.0-16.5 [facility] Work Phone: [phone] Immature granulocytes/100 WBC (Bld) 0.100 % Invalid Interpretation Code 0.0-0.9 [employer] Work Phone: [phone] Lymphocytes 2.26 X10 3/UL Invalid Interpretation Code 0.83-4.51 [employer] Work Phone: [phone] Lymphocytes/100 leukocytes 33.2 % Invalid Interpretation Code 19-41 [employer] Work Phone: [phone] MCH 31.1 pg Invalid Interpretation Code 27.0-32.0 [employer] Work Phone: [phone] MCHC mass conc (RBC) 32.7 G/GL Invalid Interpretation Code 32-36 [employer] Work Phone: [phone] MCV 94.9 fL High 80-94 [employer] Work Phone: [phone] Monocytes/100 leukocytes 10.1 % High 0-10 [employer] Work Phone: [phone] Neutrophils/100 WBC Auto (Bld) 47.5 % Invalid Interpretation Code 47-70 [employer] Work Phone: [phone] Platelets 276 10*3/mm3 Invalid Interpretation Code 150-450 [employer] Work Phone: [phone] PMV by Tony 9.4 fL Invalid Interpretation Code 6.2-12.0 [employer] Work Phone: [phone] RDW SD 45.1 fL High 35.1-43.9 [employer] Work Phone: [phone] WBC (Leukocytes) 6.8 10*3/uL Invalid Interpretation Code 4.4-11.0 [employer] Work Phone: [phone] Replaced Document: Edwin Lopez 08-27-2016 EKG QRS axis -21 deg Invalid Interpretation Code [employer] Work Phone: [phone] Interpretation Sinus Rhythm - Diffu se nonspecific T-abnormality. ABNORMAL Invalid Interpretation Code [employer] Work Phone: [phone] P [place] 42 deg Invalid Interpretation Code [employer] Work Phone: [phone] NC Interval 178 ms Invalid Interpretation Code [employer] Work Phone: Pulse (Heart Rate) 81 /min Invalid Interpretation Code [employer] Work Phone: [phone] QRS Duration 90 ms Invalid Interpretation Code [employer] Work Phone: [phone] QT Interval new path ms Invalid Interpretation Code [employer] Work Phone: [phone] QTc [place] 390 ms Invalid Interpretation Code [employer] Work Phone: [phone] T [place] 1 deg Invalid Interpretation Code [employer] Work Phone: [phone] Lab Report: Blood Gas Specim en Typeon 07-26-2016 BLD GAS TYPE LES Invalid Interpretation Code [employer] Work Phone: [phone] Lab Report: PO2 I-Mc Oxygen in arterial blood 83 mm[Hg] Invalid Interpretation Code 75-100 [employer] Work Phone: [phone] Lab Report: SO2 ISTATon 07-08 O2 saturation 96 % Invalid Interpretation Code 95-99 [employer] Work Phone: [phone] Lab Report: VBG PO2 I-Mc 07-26-2016 VBG PO2 I-STAT 33 mm[Hg] Invalid Interpretation Code 25-40 [employer] Work Phone: [phone] Lab Report: VBG SO2 ISTATon 07-26-2016 VBG SO2 ISTAT 61 % Invalid Interpretation Code 50-70 [employer] Work Phone: [phone] Lab Report: Basic Metabolic Profile (BMP)on 07-19-2016 Anion gap 7 mmol/L Invalid Interpretation Code 5-15 [employer] Work Phone: [phone] BUN/Creatinine Ratio 15.9 RATIO Invalid Interpretation Code 10-20 [employer] Work Phone: [phone] Calcium 8.8 mg/dL Invalid Interpretation Code 8.5-10.1 [employer] Work Phone: [phone] Chloride 103 mmol/L Invalid Interpretation Code 98-107 [employer] Work Phone: [phone] CO2 29.0 mmol/L Invalid Interpretation Code 21.0-32.0 [employer] Work Phone: [phone] Creatinine 1.51 mg/dL High 0.70-1.30 [employer] Work Phone: [phone] eGFR (non-black) 49 mL/min/{1.73_m2} Low >60 [employer] Work Phone: [phone] eGFR (non-black) 60 mL/min/{1.73_m2} Invalid Interpretation Code >60 [employer] Work Phone: [phone] Glucose mass conc 136 mg/dL High 70-110 [employer] Work Phone: [phone] Potassium molar conc 4.5 mmol/L Invalid Interpretation Code 3.5-5.1 [employer] Work Phone: [phone] Sodium 139 mmol/L Invalid Interpretation Code 136-145 [employer] Work Phone: [phone] Urea nitrogen 24 mg/dL High 7-18 [employer] Work Phone: [phone] Lab Report: Partial Thrombop last Timeon 07-19-2016 aPTT 31.3 s Invalid Interpretation Code 24.1-36.2 [employer] Work Phone: [phone] Lab Report: Prothrombin Time w/INRon 07-19-2016 INR Coag RelTime (PPP) 1.0 {INR} Invalid Interpretation Code [employer] Work Phone: [phone] Prothrombin time (PT) Coag time (PPP) 12.8 s Invalid Interpretation Code 11.7-14.9 [employer] Work Phone: [phone] Lab Report: Lipid Profileon 08-17-2015 Cholesterol 148 mg/dL Invalid Interpretation Code 200 [employer] Work Phone: [phone] HDL Cholesterol 53 mg/dL Invalid Interpretation Code [employer] Work Phone: [phone] LDL Cholesterol 79 mg/dL Invalid Interpretation Code 0-130 [employer] Work Phone: [phone] Triglyceride 78 mg/dL Invalid Interpretation Code [employer] Work Phone: [phone] very low density lipoproteins 16 mg/dL Invalid Interpretation Code 5-40 [employer] Work Phone: [phone] Lab Report: Liver Profileon 08-17-2015 Alanine aminotransferase (ALT) 30 U/L Invalid Interpretation Code 12-78 [employer] Work Phone: [phone] Albumin 3.9 g/dL Invalid Interpretation Code 3.4-5.0 [facility] Work Phone: [phone] Alkaline phosphatase (ALP) 78 U/L Invalid Interpretation Code 50-136 [facility] Work Phone: [phone] Aspartate aminotransferase (AST) 17 U/L Invalid Interpretation Code 15-37 [facility] Work Phone: [phone] Bilirubin (direct) 0.16 mg/dL Invalid Interpretation Code 0.00-0.30 [facility] Work Phone: [phone] Bilirubin (total) 0.40 mg/dL Invalid Interpretation Code 0.20-1.00 [facility] Work Phone: [phone] Globulin 3.2 g/dL Invalid Interpretation Code 2.3-3.5 [facility] Work Phone: [phone] Protein 7.1 g/dL Invalid Interpretation Code 6.4-8.2 [facility] Work Phone: [phone] External Other: Preferred Me thod of Contacton 08-15-2015 methcontact secmsg Invalid Interpretation Code [facility] Work Phone: [phone] Office Visiton 08-15-2015 cardiac risk group B Invalid Interpretation Code [facility] Work Phone: [phone] General cardiovascular disease 10Y risk [#] Bridget.D'Agostzita Not enough information Invalid Interpretation Code [employer] Work Phone: [phone] Vital Signs Date Time Vital Sign Value Performing Clinician Facility 2025 12:00-0400 Body temperature 97.7 [degF] Celestine Alvarez MD Work Phone: [facility] 2025 12:00-0400 Diastolic blood pressure 69 mm[Hg] Celestine Alvarez MD Work Phone: [facility] 2025 12:00-0400 Heart rate 62 /min Celestine Alvarez MD Work Phone: [facility] 2025 12:00-0400 Respiratory rate 16 /min Celestine Alvarez MD Work Phone: [facility] 2025 12:00-0400 SaO2% (BldA) [Mass fraction] 98 % Celestine Alvarez MD Work Phone: [facility] 2025 12:00-0400 Systolic blood pressure 136 mm[Hg] Celestine Alvarez MD Work Phone: [facility] 2025 09:18-0400 Body height 175.3 cm Celestine Alvarez MD Work Phone: [facility] 2025 09:18-0400 Body mass index (BMI) [Ratio] 23.04 kg/m2 Celestine Alvarez MD Work Phone: [facility] 2025 09:18-0400 Body weight 70.76 kg Celestine Alvarez MD Work Phone: [facility] 03-09-2025 13:58-0400 Body height 175.3 cm Pari Zeng MD Work Phone: [facility] 03-09-2025 13:58-0400 Body mass index (BMI) [Ratio] 23.64 kg/m2 Pari Zeng MD Work Phone: [facility] 03-09-2025 13:58-0400 Body weight 72.6 kg Pari Zeng MD Work Phone: [facility] 03-09-2025 13:58-0400 Diastolic blood pressure 54 mm[Hg] Pari Zeng MD Work Phone: [facility] 03-09-2025 13:58-0400 Heart rate 56 /min Pari Zeng MD Work Phone: [facility] 03-09-2025 13:58-0400 SaO2% (BldA) [Mass fraction] 97 % Pari Zeng MD Work Phone: [facility] 03-09-2025 13:58-0400 Systolic blood pressure 90 mm[Hg] Pari Zeng MD Work Phone: [facility] 03-09-2025 13:52-0400 Body height 175.3 cm Celestine Alvarez MD Work Phone: [facility] 03-09-2025 13:52-0400 Body mass index (BMI) [Ratio] 23.63 kg/m2 Celestine Alvarez MD Work Phone: [facility] 03-09-2025 13:52-0400 Body weight 72.58 kg Celestine Alvarez MD Work Phone: [facility] 03-09-2025 13:52-0400 Diastolic blood pressure 54 mm[Hg] Celestine Alvarez MD Work Phone: [facility] 03-09-2025 13:52-0400 Heart rate 56 /min Celestine Alvarez MD Work Phone: [facility] 03-09-2025 13:52-0400 SaO2% (BldA) [Mass fraction] 97 % Celestine Alvarez MD Work Phone: [facility] 03-09-2025 13:52-0400 Systolic blood pressure 90 mm[Hg] Celestine Alvarez MD Work Phone: [facility] 03-03-2025 10:10-0400 Body height 175.[address] Ayaz Hendrickson MD Work Phone: [facility] 03-03-2025 10:10-0400 Body mass index (BMI) [Ratio] 23.6 kg/m2 Dr. Ayaz Hendrickson MD Work Phone: [facility] 03-03-2025 10:10-0400 Body weight 72.[address] Ayaz Hendrickson MD Work Phone: [facility] 03-03-2025 10:10-0400 Diastolic blood pressure 65 mm[Hg] Dr. Ayaz Hendrickson MD Work Phone: [facility] 03-03-2025 10:10-0400 Heart rate 57 /min Dr. Ayaz Hendrickson MD Work Phone: [facility] 03-03-2025 10:10-0400 Respiratory rate 16 /min Dr. Ayaz Hendrickson MD Work Phone: [facility] 03-03-2025 10:10-0400 Systolic blood pressure 101 mm[Hg] Dr. Ayaz Hendrickson MD Work Phone: [facility] 02-25-2025 14:58-0400 Body temperature 98 [degF] [facility] 02-25-2025 14:58-0400 Diastolic blood pressure 67 mm[Hg] [facility] 02-25-2025 14:58-0400 Heart rate 62 /min [facility] 02-25-2025 14:58-0400 Respiratory rate 16 /min [facility] 02-25-2025 14:58-0400 SaO2% (BldA) [Mass fraction] 98 % [facility] 02-25-2025 14:58-0400 Systolic blood pressure 128 mm[Hg] [facility] 02-23-2025 13:18-0400 Body height 175.26 cm [facility] 02-23-2025 13:18-0400 Body weight 78.01 kg [facility] 02-23-2025 11:45-0400 Inhaled oxygen concentration 60 % [facility] 02-23-2025 11:25-0400 Body mass index (BMI) [Ratio] 25.4 kg/m2 [facility] 02-23-2025 10:19-0400 Body temperature 97.1 [degF] [facility] 02-23-2025 10:19-0400 Diastolic blood pressure 74 mm[Hg] [facility] 02-23-2025 10:19-0400 Heart rate 73 /min [facility] 02-23-2025 10:19-0400 Respiratory rate 19 /min [facility] 02-23-2025 10:19-0400 SaO2% (BldA) [Mass fraction] 100 % [facility] 02-23-2025 10:19-0400 Systolic blood pressure 139 mm[Hg] [facility] 02-23-2025 08:46-0400 Inhaled oxygen flow rate 2 L/min [facility] 02-23-2025 08:14-0400 Body height 175.26 cm [facility] 02-23-2025 08:14-0400 Body mass index (BMI) [Ratio] 25.5 kg/m2 [facility] 02-23-2025 08:14-0400 Body weight 78.47 kg [facility] 02-17-2025 18:00-0400 Body temperature 99 [degF] Dr. Ayaz Hendrickson MD Work Phone: 6(827)951-299634 [place] [address] 02-17-2025 18:00-0400 Diastolic blood pressure 70 mm[Hg] Dr. Ayaz Hendrickson MD Work Phone: 3(525)203-946807 [place] [address] 02-17-2025 18:00-0400 Heart rate 60 /min Dr. Ayaz Hendrickson MD Work Phone: 9(295)737-731834 [place] [address] 02-17-2025 18:00-0400 Systolic blood pressure 162 mm[Hg] Dr. Ayaz Hendrickson MD Work Phone: 3(217)193-005034 [place] [address] 02-17-2025 15:37-0400 Heart rate 71 /min Dr. Ayaz Hendrickson MD Work Phone: 3(852)392-298234 [place] [address] 02-17-2025 15:37-0400 Respiratory rate 18 /min Dr. Ayaz Hendrickson MD Work Phone: 6(227)033-974834 [place] [address] 02-17-2025 14:00-0400 Body temperature 98.8 [degF] Dr. Ayaz Hendrickson MD Work Phone: 8(012)618-448634 [place] [address] 02-17-2025 14:00-0400 Diastolic blood pressure 72 mm[Hg] Dr. Ayaz Hendrickson MD Work Phone: 3(912)136-119934 [place] [address] 02-17-2025 14:00-0400 SaO2% (BldA) [Mass fraction] 98 % Dr. Ayaz Hendrickson MD Work Phone: 8(705)985-563834 [place] [address] 02-17-2025 14:00-0400 Systolic blood pressure 159 mm[Hg] Dr. Ayaz Hendrickson MD Work Phone: 8(607)907-862907 [place] [address] 02-17-2025 05:12-0400 Body mass index (BMI) [Ratio] 24.7 kg/m2 Dr. Ayaz Hendrickson MD Work Phone: 8(220)936-051107 [place] [address] 02-17-2025 05:12-0400 Body weight 78.[address] Ayaz Hendrickson MD Work Phone: 9(727)927-446907 [place] [address] 02-16-2025 14:09-0400 Body height 177.[address] Ayaz Hendrickson MD Work Phone: 7(806)096-016407 [place] [address] 02-16-2025 03:18-0400 Inhaled oxygen flow rate 2 L/min Dr. Ayaz Hendrickson MD Work Phone: 1(711)231-741907 [place] [address] 02-15-2025 06:00-0400 Inhaled oxygen concentration 25 % Dr. Ayaz Hendrickson MD Work Phone: 3(517)969-778207 [place] [address] 02-12-2025 21:15-0400 Inhaled oxygen concentration 50 % Dr. Ayaz Hendrickson MD Work Phone: 3(660)469-820207 [place] [address] 02-12-2025 21:15-0400 SaO2% (BldA) [Mass fraction] 100 % Dr. Ayaz Hendrickson MD Work Phone: 3(016)847-321207 [place] [address] 02-12-2025 21:06-0400 Body temperature 97.5 [degF] Dr. Ayaz Hendrickson MD Work Phone: 8(929)388-524707 [place] [address] 02-12-2025 21:06-0400 Diastolic blood pressure 45 mm[Hg] Dr. Ayaz Hendrickson MD Work Phone: 9(206)340-024107 [place] [address] 02-12-2025 21:06-0400 Heart rate 56 /min Dr. Ayaz Hendrickson MD Work Phone: 2(581)587-188107 [place] [address] 02-12-2025 21:06-0400 Respiratory rate 18 /min Dr. Ayaz Hendrickson MD Work Phone: 5(186)506-653107 [place] [address] 02-12-2025 21:06-0400 Systolic blood pressure 92 mm[Hg] Dr. Ayaz Hendrickson MD Work Phone: 6(757)113-073507 [place] [address] 02-12-2025 18:45-0400 Body height 177.[address] Ayaz Hendrickson MD Work Phone: [facility] 02-12-2025 18:45-0400 Body mass index (BMI) [Ratio] 25.7 kg/m2 Dr. Ayaz Hendrickson MD Work Phone: [facility] 02-12-2025 18:45-0400 Body weight 81.[address] Ayaz Hendrickson MD Work Phone: [facility] 02-12-2025 18:45-0400 Inhaled oxygen flow rate 15 L/min Dr. Ayaz Hendrickson MD Work Phone: [facility] 11-29-2022 14:25-0400 Body height 175.26 cm [facility] 11-29-2022 14:25-0400 Body mass index (BMI) [Ratio] 27.6 kg/m2 [facility] 11-29-2022 14:25-0400 Body weight 84.82 kg [facility] 11-29-2022 14:25-0400 Diastolic blood pressure 73 mm[Hg] [facility] 11-29-2022 14:25-0400 Heart rate 78 /min [facility] 11-29-2022 14:25-0400 Respiratory rate 16 /min [facility] 11-29-2022 14:25-0400 Systolic blood pressure 131 mm[Hg] [facility] 08-22-2022 10:46-0500 Body height 175.3 cm Pacc 1 Work Phone: [facility] 08-22-2022 10:46-0500 Body temperature 97.9 [degF] Pacc 1 Work Phone: [facility] 08-22-2022 10:46-0500 Body weight 82.56 kg Pacc 1 Work Phone: [facility] 08-22-2022 10:46-0500 Diastolic blood pressure 70 mm[Hg] Pacc 1 Work Phone: [facility] 08-22-2022 10:46-0500 Heart rate 83 /min Pacc 1 Work Phone: [facility] 08-22-2022 10:46-0500 SaO2% (BldA) [Mass fraction] 96 % Pac 1 Work Phone: [facility] 08-22-2022 10:46-0500 Systolic blood pressure 102 mm[Hg] Pac 1 Work Phone: [facility] 08-07-2022 15:59-0500 Body height 175.3 cm Thao Kellie PA-C Work Phone: [facility] 08-07-2022 15:59-0500 Body temperature 98.1 [degF] Thao [place]if[place] PA-C Work Phone: [facility] 08-07-2022 15:59-0500 Body weight 83.28 kg Thao [place] PA-C Work Phone: [facility] 08-07-2022 15:59-0500 Diastolic blood pressure 86 mm[Hg] Thao [place] PA-C Work Phone: [facility] 08-07-2022 15:59-0500 Heart rate 78 /min Thao Kellie PA-C Work Phone: [facility] 08-07-2022 15:59-0500 SaO2% (BldA) [Mass fraction] 97 % Thao Kellie PA-C Work Phone: [facility] 08-07-2022 15:59-0500 Systolic blood pressure 118 mm[Hg] Thao [place] PA-C Work Phone: [facility] 07-24-2022 09:24-0500 Diastolic blood pressure 70 mm[Hg] Jess Baker MD Work Phone: [facility] 07-24-2022 09:24-0500 Heart rate 80 /min Jess Baker MD Work Phone: [facility] 07-24-2022 09:24-0500 SaO2% (BldA) [Mass fraction] 98 % Jess Baker MD Work Phone: [facility] 07-24-2022 09:24-0500 Systolic blood pressure 153 mm[Hg] Jess Baker MD Work Phone: [facility] 07-24-2022 09:04-0500 Respiratory rate 16 /min Jess Baker MD Work Phone: [facility] 07-24-2022 07:15-0500 Body temperature 98.4 [degF] Jess Baker MD Work Phone: [facility] 07-24-2022 07:15-0500 Body weight 80.7 kg Jess Baker MD Work Phone: [facility] 04-05-2022 10:21-0400 Body height 175.3 cm Jess Baker MD Work Phone: [facility] 04-05-2022 10:21-0400 Body temperature 98.71 [degF] Jess Baker MD Work Phone: [facility] 04-05-2022 10:21-0400 Body weight 80.74 kg Jess Baker MD Work Phone: [facility] 04-05-2022 10:21-0400 Diastolic blood pressure 82 mm[Hg] Jess Baker MD Work Phone: [facility] 04-05-2022 10:21-0400 Heart rate 85 /min Jess Baker MD Work Phone: [facility] 04-05-2022 10:21-0400 SaO2% (BldA) [Mass fraction] 98 % Jess Baker MD Work Phone: [facility] 04-05-2022 10:21-0400 Systolic blood pressure 142 mm[Hg] Jess Baker MD Work Phone: [facility] 02-22-2022 14:03-0400 Body height 175.3 cm Jess Baker MD Work Phone: [facility] 02-22-2022 14:03-0400 Body temperature 98.4 [degF] Jess Baker MD Work Phone: [facility] 02-22-2022 14:03-0400 Body weight 82.56 kg Jess Baker MD Work Phone: [facility] 02-22-2022 14:03-0400 Diastolic blood pressure 74 mm[Hg] Jess Baker MD Work Phone: [facility] 02-22-2022 14:03-0400 Heart rate 79 /min Jess Baker MD Work Phone: [facility] 02-22-2022 14:03-0400 SaO2% (BldA) [Mass fraction] 97 % Jess Baker MD Work Phone: [facility] 02-22-2022 14:03-0400 Systolic blood pressure 128 mm[Hg] Jess Baker MD Work Phone: [facility] 10-09-2021 14:09-0400 Body height 175.26 cm [facility] Work Phone: 10-09-2021 14:09-0400 Body weight 84.62 kg [facility] Work Phone: 10-09-2021 14:09-0400 Diastolic blood pressure 70 mm[Hg] [facility] Work Phone: 10-09-2021 14:09-0400 Heart rate 68 /min [facility] Work Phone: 10-09-2021 14:09-0400 Respiratory rate 18 /min [facility] Work Phone: 10-09-2021 14:09-0400 Systolic blood pressure 128 mm[Hg] [facility] Work Phone: 12-07-2020 11:03-0400 Body mass index (BMI) [Ratio] 25.1 kg/m2 [facility] Work Phone: 05-27-2017 07:51-0500 BMI (Body Mass Index) 26.34 kg/m2 Mango Morton NP [facility] Work Phone: 05-27-2017 07:51-0500 BP Diastolic 94 mm[Hg] Mango Morton CHILD C[employer] WORKER [facility] Work Phone: 05-27-2017 07:51-0500 BP Systolic 170 mm[Hg] Mango Morton CHILD CARE WORKER [facility] Work Phone: 05-27-2017 07:51-0500 Height 176.53 cm Mango Morton CHILD CARE WORKER [facility] Work Phone: 05-27-2017 07:51-0500 Pulse (Heart Rate) 76 /min Mango Morton CHILD CARE WORKER [facility] Work Phone: 05-27-2017 07:51-0500 Respiratory Rate 20 /min Mango Morton CHILD CARE WORKER [facility] Work Phone: 05-27-2017 07:51-0500 Weight 82.1 kg Mango Morton CHILD CARE WORKER [facility] Work Phone: 09-21-2016 09:22-0400 Body Temperature 97.9 [degF] Mango Morton NP [facility] Work Phone: 08-27-2016 08:12-0500 BSA (Body Surface Area) 1.93 m2 Mango Morton NP [facility] Work Phone: 08-27-2016 08:12-0500 Pulse Oximetry 98 % Mango Morton NP [facility] Work Phone: Encounters Encounter Date Encounter Type Care Provider Facility Start: 2025 End: 2025 Orders Only Zonia Cole [employer] Work Phone: [facility] Comment on above: Severe aortic stenos is (Primary Dx) Start: 03-29-2025 End: 2025 Evaluation and management of inpatient Celestine Alvarez MD Work Phone: [facility] Cardiac Thoracic Vascular Intensive Care Unit CTV ICU T1 Comment on above: Severe aortic stenos is (Primary Dx); Nonrheumatic aortic valve stenosis Start: 03-26-2025 End: 03-26-2025 ambulatory Zonia Cole [employer] Work Phone: [facility] Comment on above: Severe aortic stenos is (Primary Dx) Start: 03-19-2025 End: 03-19-2025 Telephone encounter Carmen Donovan PAULINA Ervin CNP [facility] Start: 03-19-2025 End: 03-19-2025 Subsequent hospital visit by physician Misty Xr Exam Room 1 [facility] X-Ray Comment on above: Shortness of breath Start: 03-19-2025 End: 03-19-2025 ambulatory CARMEN DONOVAN [facility] Start: 03-19-2025 End: 03-19-[address] [facility] Work Phone: Start: 03-19-2025 End: 03-19-2025 Subsequent hospital visit by physician Misty Ed Ct Exam Room 2 [facility] CT Imaging Comment on above: Pre-operative cardio vascular examination; Nonrheumatic aortic valve stenosis Start: 03-19-2025 End: 03-19-2025 ambulatory CARMEN VENUS [facility] Start: 03-19-2025 End: 03-19-2025 ambulatory CELESTINE IBARRAD [facility] Start: 03-09-2025 End: 03-09-2025 Office outpatient new 45 minutes Pari Zeng MD Work Phone: [facility] Comment on above: Pre-operative cardio vascular examination (Primary Dx); Nonrheumatic aortic valve stenosis; Stage 4 chronic kidney disease (HCC) Pre-operative cardio vascular examination (Primary Dx); Nonrheumatic aortic valve stenosis Start: 03-09-2025 End: 03-09-2025 Patient encounter status [facility] Work Phone: Start: 03-09-2025 End: 03-09-2025 ambulatory PARI ZENG [facility] Start: 03-09-2025 End: 03-09-2025 Encounter for preprocedural cardiovascular examination PARI ZENG [facility] Start: 03-03-2025 End: 03-03-[address] Ayaz Hendrickson MD Work Phone: -Laboratory Start: 03-03-2025 End: 03-03-2025 Dr. Sunshine Nesbitt MD -Laboratory Work Phone: Start: 03-03-2025 End: 03-03-2025 Patient encounter procedure Mango Morton CHILD CARE WORKER-C -[facility] Work Phone: Start: 03-03-2025 End: 03-03-2025 Mango Morton CHILD CARE WORKER-C -[facility] Work Phone: Start: 03-03-2025 End: 03-03-[address] Ayaz Hendrickson MD Work Phone: -[facility] Start: 03-03-2025 End: 03-03-2025 ambulatory Sunshine Nesbitt Facility:[facility] Start: 02-25-2025 Non-patient / Non-visit Dr. Lana Menjivar MD -[facility] Work Phone: Start: 02-25-2025 Dr. Lana Menjivar MD - [facility] Work Phone: Start: 02-24-2025 Non-patient / Non-visit Dr. Lana Menjivar MD -[facility] Work Phone: Start: 02-24-2025 Dr. Lana Menjivar MD - [facility] Work Phone: Start: 02-23-2025 ambulatory Lana Menjivar Facility :[facility] Start: 02-23-2025 End: 02-25-2025 Evaluation and management of inpatient Dr. Lana Menjivar MD -Intensive Care Unit Work Phone: Start: 02-23-2025 End: 02-25-2025 Dr. Lana Menjivar MD -Progressive Care Unit Work Phone: Start: 02-17-2025 Non-patient / Non-visit Dr. Lana Menjivar MD -[facility] Work Phone: Start: 02-17-2025 Dr. Lana Menjivar MD - [facility] Work Phone: Start: 02-16-2025 Non-patient / Non-visit Dr. Lana Menjivar MD [facility] Work Phone: Start: 02-16-2025 Dr. Lana Menjivar MD [facility] Work Phone: Start: 02-16-2025 Non-patient / Non-visit Dr. Monreal [facility] Start: 02-16-[address] [facility] Start: 02-15-2025 Non-patient / Non-visit Dr. Alicea [facility] Start: 02-15-20[address] [facility] Start: 02-15-2025 Non-patient / Non-visit Dr. Lana Menjivar MD [facility] Work Phone: Start: 02-15-2025 Dr. Lana Menjivar MD [facility] Work Phone: Start: 02-15-2025 Non-patient / Non-visit Dr. Boom kincaid [facility] Start: 02-15-2025 Dr. Boom Garg [facility] Start: 02-14-2025 Non-patient / Non-visit Dr. Lana Menjivar MD [facility] Work Phone: Start: 02-14-2025 Dr. Lana Menjivar MD [facility] Work Phone: Start: 02-13-2025 Non-patient / Non-visit Dr. Lana Menjivar MD [facility] Work Phone: Start: 02-13-2025 Dr. Lana Menjivar MD [facility] Work Phone: Start: 02-13-2025 [facility] Start: 02-13-2025 Non-patient / Non-visit Dr. Deanne gerardo MD [facility] Start: 02-13-2025 Dr. Deanne Medley MD -[facility] Start: 02-12-2025 ambulatory Lana Menjivar Facility :[facility] Start: 02-12-2025 End: 02-17-2025 Evaluation and management of inpatient Dr. Vandana Bro MD -Intensive Care Unit Work Phone: Start: 02-12-2025 End: 02-17-2025 Dr. Lana Menjivar MD -Progressive Care Unit Work Phone: Start: 08-28-2024 End: 08-28-2024 ambulatory [facility] Facility:[facility] Start: 07-24-2024 End: 07-24-2024 Emergency department patient visit [facility] Facility:[facility] Start: 04-14-2024 End: 04-14-2024 ambulatory [facility] Facility:[facility] Start: 12-27-2022 Non-patient / Non-visit [facility] Start: 12-24-2022 Non-patient / Non-visit [facility] Start: 12-24-2022 End: 12-24-2022 ambulatory [facility] Work Phone: Start: 12-24-2022 End: 12-24-2022 Patient encounter procedure [facility] Start: 11-29-2022 End: 11-29-2022 Patient encounter procedure [facility] Start: 08-23-2022 Telephone encounter Jess Baker MD Work Phone: Pre Anesthesia Comment on above: Results, Lab Start: 08-22-2022 Telephone encounter Noam Rodriguez LINER MAN.[employer] Work Phone: Pre Anesthesia Comment on above: Request for outside medical records Start: 08-22-2022 Encounter for other preprocedural examination CHANDRIKA ARCOS [facility] Start: 08-22-2022 End: 08-23-2022 ambulatory NOAM RODRIGUEZ Facility:[facility] Start: 08-22-2022 End: 08-22-2022 Admission to [place] [id number] Work Phone: [facility] Start: 08-22-2022 End: 08-22-2022 ambulatory [facility] [place] [facility] Work Phone: Pre Anesthesia Comment on above: Pre-operative examin ation (Primary Dx); Type 2 diabetes mellitus with stage 3 chronic kidney disease, with long-term current use of insulin, unspecified whether stage 3a or 3b CKD (HCC); Coronary artery disease involving [place] coronary artery of [place] heart without angina pectoris; Hyperlipidemia, unspecified hyperlipidemia type; Stage 3 chronic kidney disease, unspecified whether stage 3a or 3b CKD (HCC); Chronic obstructive pulmonary disease with acute exacerbation (HCC); BPH without urinary obstruction; Aortic stenosis, mild; Gastroesophageal reflux disease, unspecified whether esophagitis present; Iron deficiency anemia, unspecified iron deficiency anemia type; S/P lumbar laminectomy; Chronic pain of left knee Start: 08-22-2022 End: 08-22-2022 Preprocedural examination done Pac Devan 1 Work Phone: Pre Anesthesia Start: 08-07-2022 End: 08-07-2022 ambulatory THAO KERR Facility:[facility] Start: 08-07-2022 End: 08-07-2022 Patient encounter procedure Thao ROMOC Work Phone: General Surgery Comment on above: Iron deficiency anem ia, unspecified iron deficiency anemia type (Primary Dx); Gastritis, presence of bleeding unspecified, unspecified chronicity, unspecified gastritis type; Adenomatous polyp of colon, unspecified part of colon Start: 07-24-2022 End: 07-24-2022 ambulatory JESS BAKER Facility:[facility] Start: 07-24-2022 End: 07-24-2022 Subsequent hospital visit by physician Jess Baker MD Work Phone: Ambulatory Surgery Comment on above: Gastroesophageal ref lux disease, unspecified whether esophagitis present [K21.9] Start: 07-23-2022 Telephone encounter Jess Baker MD Work Phone: Ambulatory Surgery Comment on above: Patient Question (Qu estion about colonoscopy prep) Start: 06-06-2022 End: 06-06-2022 ambulatory CHANDRIKA ARCOS Facility:[facility] Start: 06-06-2022 End: 06-06-2022 ambulatory [facility] Nurse Devan Work Phone: [facility] Start: 04-05-2022 End: 04-05-2022 ambulatory JESS BAKER Facility:[facility] Start: 04-05-2022 End: 04-05-2022 Patient encounter procedure Jess Baker MD Work Phone: General Surgery Comment on above: Iron deficiency anem ia, unspecified iron deficiency anemia type (Primary Dx); Abdominal hernia without obstruction and without gangrene, recurrence not specified, unspecified hernia type Start: 03-15-2022 Telephone encounter Thao onofre PA-C Work Phone: General Surgery Comment on above: Patient Question (CT scan results) Start: 02-23-2022 End: 02-23-2022 ambulatory JESS BAKER Facility:[facility] Start: 02-23-2022 End: 02-23-2022 Subsequent hospital visit by physician [facility] ([facility]) Work Phone: Cat Scan Comment on above: Gastroesophageal ref lux disease, unspecified whether esophagitis present [K21.9] Start: 02-22-2022 End: 02-22-2022 ambulatory JESS BAKER Facility:[facility] Start: 02-22-2022 End: 02-22-2022 ambulatory JESS BAKER Facility:[facility] Start: 02-22-2022 End: 02-22-2022 Patient encounter procedure Jess Baker MD Work Phone: General Surgery Comment on above: Gastroesophageal ref lux disease, unspecified whether esophagitis present (Primary Dx); Iron deficiency anemia, unspecified iron deficiency anemia type; Abdominal hernia without obstruction and without gangrene, recurrence not specified, unspecified hernia type Start: 11-13-2021 End: 11-13-2021 Patient encounter procedure [facility] Start: 10-30-2021 Non-patient / Non-visit [facility] Start: 10-30-2021 End: 10-30-2021 Patient encounter procedure [facility] Start: 10-09-2021 End: 10-09-2021 Patient encounter procedure [facility] Start: 10-09-2021 End: 10-09-2021 Patient encounter procedure [facility] Start: 08-01-2021 End: 08-01-2021 Patient encounter procedure [facility]Pulmonary Services/Neurology Start: 08-01-2021 Non-patient / Non-visit [facility] Start: 11-22-2017 Patient encounter status [facility] Comment on above: Torn meniscus repair -not scheduled yet. Start: 09-06-2016 End: 09-07-2016 Ambulatory JOSEE MOORE Facility:[facility] Procedures Date Procedure Procedure Detail Performing Clinician Start: 2025 Echo tthrc r-t 2d w/wom-mode compl spec&colr d Carmen Donovan [employer] Work Phone: Start: 2025 Ecg routine ecg w/least 12 lds trcg only w/o i&r Carmenpauly Holbrookel [employer]ER MAN [employer] Work Phone: Start: 2025 Basic metabolic panel calcium total Carmen Va Holbrookel LINER MAN [employer] Work Phone: Start: 03-29-2025 Ecg routine ecg w/least 12 lds trcg only w/o i&r Carmen Holbrookel [employer] Work Phone: Start: 03-29-2025 Basic metabolic panel calcium total Carmen De Dios Venus [employer]ER MAN [employer] Work Phone: Start: 03-29-2025 OXYGEN THERAPY Carmen Donovan [employer] MAN [employer] Work Phone: Start: 03-29-2025 Cardiac catheterization study Celestine cho MD Work Phone: Start: 03-29-2025 Echo transthorc r-t 2d w/wo m-mode rec f-up/lmtd Celestine Alvarez MD Work Phone: Start: 03-29-2025 POCT ACT Celestine Alvarez MD Work Phone: Start: 03-29-2025 Compatibility each unit electronic Adeola Alvarez MD Work Phone: Start: 03-29-2025 Antibody screen CELESTINE ALVAREZ Comment on above: Performed By: #### [id number] #### Supermarket Manager: KARLA SIMON ([phone]) [facility] [address] [place] [address] Start: 03-29-2025 ABO and Rh group [Type] in Blood by Confirmatory method Zonia Cole [employer] MAN [employer] Work Phone: Start: 03-29-2025 End: 03-29-2025 Basic metabolic panel calcium total Zonia Cole [employer] MAN [employer] Work Phone: Start: 03-29-2025 Blood typing serologic abo Zonia Woodward PRN - [employer] Work Phone: Start: 03-09-2025 Ecg routine ecg w/least 12 lds trcg only w/o i&r Celestine Alvarez MD Work Phone: Start: 02-25-2025 Blood count smear mcrscp w/mnl difrntl wbc count Dr. Ayaz Hendrickson MD Work Phone: Start: 02-25-2025 [facility] Start: 02-25-2025 Mean corpuscular hemoglobin concentration determination Dr. Ayaz Hendrickson MD Work Phone: Start: 02-25-2025 Nucleated red blood cell count procedure Dr. Ayaz Hendrickson MD Work Phone: Start: 02-25-2025 Platelet mean volume determination Dr. Trae Hendrickson MD Work Phone: Start: 02-23-2025 X-ray of chest, PA and lateral views [facility] Start: 02-23-2025 Estimated creatinine [facility] Start: 02-17-2025 Blood count smear mcrscp w/mnl difrntl wbc count Dr. Ayaz Hendrickson MD Work Phone: Start: 02-17-2025 Calculation of international normalized ratio Dr. Ayaz Hendrickson MD Work Phone: Start: 02-17-[address] Ayaz Hendrickson MD Work Phone: Start: 02-17-2025 Mean corpuscular hemoglobin concentration determination Dr. Ayaz Hendrickson MD Work Phone: Start: 02-17-2025 Nucleated red blood cell count procedure Dr. Ayaz Hendrickson MD Work Phone: Start: 02-17-2025 Platelet mean volume determination Dr. Trae Hendrickson MD Work Phone: Start: 02-15-2025 Complete ultrasound of kidneys and bladder Dr. Ayaz Hendrickson MD Work Phone: Start: 02-14-2025 Urea nitrogen measurement, urine Dr. Miko Hendrickson MD Work Phone: Start: 02-14-[address] Ayaz Hendrickson MD Work Phone: Start: 02-13-[address] Ayaz Valencia Work Phone: Start: 02-13-2025 Total cholesterol:HDL ratio measurement Dr. Ayaz Hendrickson MD Work Phone: Start: 02-13-2025 Plain chest X-ray Dr. Ayaz Hendrickson MD Work Phone: Start: 02-12-2025 Carbon dioxide measurement, partial pressure Dr. Ayaz Hendrickson MD Work Phone: Start: 02-12-2025 Gases blood o2 saturation only direct tanya Dr. Ayaz Hendrickson MD Work Phone: Start: 02-12-2025 Measurement of partial pressure of oxygen in blood Dr. Ayaz Hendrickson MD Work Phone: Start: 02-12-[address] Ayaz Hendrickson MD Work Phone: Start: 02-12-2025 Carbon dioxide measurement, partial pressure Dr. Ayaz Hendrickson MD Work Phone: Start: 02-12-2025 Gases blood o2 saturation only direct tanya Dr. Ayaz Hendrickson MD Work Phone: Start: 02-12-2025 Measurement of partial pressure of oxygen in blood Dr. Ayaz Hendrickson MD Work Phone: Start: 02-12-2025 Urine microscopy: red cells Dr. Ayaz sheridan MD Work Phone: Start: 02-12-2025 Urnls dip stick/tablet reagent auto microscopy Dr. Ayaz Hendrickson MD Work Phone: Start: 02-12-[address] Ayaz Hendrickson MD Work Phone: Start: 02-12-2025 Plain chest X-ray Dr. Ayaz Hendrickson MD Work Phone: Start: 02-12-[address] Ayaz Hendrickson MD Work Phone: Start: 02-12-[address] Ayaz Hendrickson MD Work Phone: Start: 02-12-2025 Bacterial nucleic acid assay Dr. Ayaz hilton MD Work Phone: Start: 02-12-[address] Ayaz Hendrickson MD Work Phone: Start: 02-12-[address] Ayaz Hendrickson MD Work Phone: Start: 02-12-[address] Ayaz Hendrickson MD Work Phone: Start: 02-12-[address] Ayaz sloan MD Work Phone: Start: 02-12-2025 SARS-CoV-2, Influenza & RSV (PCR) Dr. Carlos Hendrickson MD Work Phone: Start: 02-12-[address] Ayaz Hendrickson MD Work Phone: Start: 02-12-2025 Dr. Ayaz Hendrickson MD Work Phone: Start: 07-24-2022 Level iv surg pathology gross&microscopic exam Jess Baker MD Work Phone: Start: 07-24-2022 Gluc bld gluc mntr dev cleared fda spec home use Jess Baker MD Work Phone: Start: 07-24-2022 Esophagogastroduodenoscopy transoral diagnostic Jess Baker MD Work Phone: Start: 07-24-2022 Colonoscopy flx dx w/collj spec when pfrmd Jess Baker MD Work Phone: Start: 07-24-2022 Colonoscopy Thao Kerr PA-C Work Phone: Start: 06-06-2022 INFLUENZA SEASONAL QUADRIVALENT HIGH DOSE AGE 65+ Joe De Dios Bonilla DO Work Phone: Start: 06-06-2022 PFIZER-BIONTECH COVID-19 BIVALENT BOOSTER VACCINE, AGE 12+ YR Joe Bonilla DO Work Phone: Start: 11-13-2021 Plain chest X-ray [facility] Start: 10-30-2021 Cardiovascular stress test using pharmacologic stress agent [facility] Start: 04-23-[address] depression screening assessment Ct ([facility]) Work Phone: Start: 02-25-2017 End: 02-25-2017 DAVID Pinon MD Work Phone: Start: 02-25-2017 End: 02-25-2017 Follow Up Appt 6 months Lavell Pinon MD Work Phone: Start: 02-19-2017 End: 02-19-2017 Chiropractic manipulative tx spinal 3-4 regions Wendy Wood DC Work Phone: Start: 09-21-2016 End: 09-21-2016 *CBC with Differential Lavell Pinon MD Work Phone: Start: 09-21-2016 End: 09-21-2016 Nurse, Teaching, Wound Check (no charge) Lavell Pinon MD Work Phone: Start: 08-27-2016 End: 02-19-2017 Chest x-ray Lavell Pinon MD Work Phone: Start: 08-27-2016 End: 08-27-2016 DAVID Pinon MD Work Phone: Start: 08-27-2016 End: 08-27-2016 Ecg routine ecg w/least 12 lds w/i&r Lavell Pinon MD Work Phone: Start: 08-27-2016 End: 08-27-2016 Follow Up Appt 6 months Lavell Pinon MD Work Phone: Start: 08-27-2016 End: 08-28-2016 Referral to upper doubler Lavell Pinon MD Work Phone: Start: 08-06-2016 History of coronary artery bypass grafting H/O coronary artery bypass surgery [facility] Comment on above: CABG x 4 FLORES-LAD, Free GWEN-OM1 Y graft off FLORES, SVG-OM2, SVG-PLB 08/06/2016 @ [facility] Dr. Bruno Start: 07-19-2016 End: 07-19-2016 DAVID Ramirez PA-C Work Phone: Start: 07-19-2016 End: 07-19-2016 Follow Up Appt 3 months Carmen Ramirez PA-C Work Phone: Start: 07-19-2016 End: 07-20-2016 Referral to rfid specialist Carmen Ramirez PA-C Work Phone: Start: 07-18-2016 End: 07-19-2016 *BMP Lavell Pinon MD Work Phone: Start: 07-18-2016 End: 07-19-2016 aPTT in Platelet poor plasma by Coagulation assay Lavell Pinon MD Work Phone: Start: 07-18-2016 End: 07-19-2016 CBC W Auto Differential panel - Blood Lavell Pinon MD Work Phone: Start: 07-18-2016 End: 07-20-2016 Chest x-ray Lavell Pinon MD Work Phone: Start: 07-18-2016 End: 07-20-2016 Ecg routine ecg w/least 12 lds w/i&r Lavell Pinon MD Work Phone: Start: 07-18-2016 End: 07-19-2016 INR in Platelet poor plasma by Coagulation assay Lavell Pinon MD Work Phone: Start: 07-18-2016 End: 02-19-2017 Left & Right Heart Cath Lavell Pinon MD Work Phone: Start: 04-12-[address] ([facility]) Work Phone: Start: 02-20-2016 End: 02-20-2016 DJN Lavell Pinon MD Work Phone: Start: 02-20-2016 End: 02-20-2016 Follow Up Appt 4 months Lavell Pinon MD Work Phone: Start: 02-16-2016 End: 02-19-2017 *Hepatic Function Panel Lavell Pinon MD Work Phone: Start: 02-16-2016 End: 02-19-2017 Lipid 1996 panel - Serum or Plasma Haider Pinon MD Work Phone: Start: 10-20-2015 End: 10-20-2015 Nurse, Teaching, Wound Check (no charge) Lavell Pinon MD Work Phone: Start: 10-03-2015 End: 10-10-2015 *BMP Lavell Pinon MD Work Phone: Start: 10-03-2015 End: 10-10-2015 CBC W Auto Differential panel - Blood Lavell Pinon MD Work Phone: Start: 09-08-2015 End: 09-23-2015 Transesophageal echocardiogram (ADILIA) Lavell Pinon MD Work Phone: Start: 09-07-2015 End: 09-07-2015 *BMP Lavell Pinon MD Work Phone: Start: 09-07-2015 End: 09-07-2015 aPTT in Platelet poor plasma by Coagulation assay Lavell Pinon MD Work Phone: Start: 09-07-2015 End: 09-07-2015 CBC W Auto Differential panel - Blood Lavell Pinon MD Work Phone: Start: 09-07-2015 End: 09-08-2015 Chest x-ray Lavell Pinon MD Work Phone: Start: 09-07-2015 End: 09-07-2015 INR in Platelet poor plasma by Coagulation assay Lavell Pinon MD Work Phone: Start: 09-07-2015 End: 09-08-2015 Left & Right Heart Cath Lavell Pinon MD Work Phone: Start: 08-15-2015 End: 08-17-2015 *Hepatic Function Panel Lavell Pinon MD Work Phone: Start: 08-15-2015 End: 02-10-2016 DJN Lavell Pinon MD Work Phone: Start: 08-15-2015 End: 09-05-2015 Ecg routine ecg w/least 12 lds w/i&r Lavell Pinon MD Work Phone: Start: 08-15-2015 End: 09-05-2015 Echocardiography Lavell Pinon MD Work Phone: Start: 08-15-2015 End: 02-10-2016 Follow Up Appt 6 months Lavell Pinon MD Work Phone: Start: 08-15-2015 End: 08-15-2015 Follow Up BP Check Lavell Pinon MD Work Phone: Start: 08-15-2015 End: 08-17-2015 Lipid 1996 panel - Serum or Plasma Haider Pinon MD Work Phone: Start: 08-15-2015 End: 09-08-2015 Stress Echocardiogram (treadmill) Lavell Pinon MD Work Phone: History of coronary artery bypass grafting Hx of coronary artery bypass graft Dr. Vandana Bro MD History of coronary artery bypass grafting Hx of coronary artery bypass graft Dr. Ayaz Hendrickson MD Work Phone: Comment on above: CABG x 4 FLORES-LAD, Free GWEN-OM1 Y graft off FLORES, SVG-OM2, SVG-PLB 08/06/2016. Plan of Treatment Date Care Activity Detail Author Start: 03-25-2033 DTaP/Tdap/Td Vaccines (4 - Td or Tdap) DTaP/Tdap/Td Vaccines (4 - Td or Tdap) [facility] Start: 07-24-2027 Colonoscopy COLONOSCOPY [facility] Start: 07-24-2027 COLORECTAL CANCER SCREENING COLORECTAL CANCER SCREENING [facility] Start: 04-12-2026 Colonoscopy COLONOSCOPY [facility] Start: 04-12-2026 COLORECTAL CANCER SCREENING COLORECTAL CANCER SCREENING [facility] Start: 2026 Diabetes: Estimated Glomerular Filtration Rate for Kidney Health Diabetes: Estimated Glomerular Filtration Rate for Kidney Health [facility] Start: 03-19-2026 Diabetes: Estimated Glomerular Filtration Rate for Kidney [facility] Diabetes: Estimated Glomerular Filtration Rate for Kidney Health [facility] Start: 04-29-2025 End: 2027 US Heart Transthoracic Transthoracic echocardiogram (TTE) complete with contrast, bubble, strain, and 3D PRN CV Echocardiography Routine Severe aortic stenosis Expected: 04/29/2025 (Approximate), Expires: 2027 [facility] Work Phone: Comment on above: Expected: 04/29/2025 (Approximate), Expi res: 2027 Start: 04-07-2025 End: 04-07-2025 Patient encounter procedure 04/07/2025 10:30 AM EDT Office Visit [facility] [address] [place] [id number] Zonia Cole APRN - [employer] [address] [place] [address] [facility] Start: 03-29-2025 End: 03-29-2025 Admission to same day surgery center [facility] Comment on above: TRANSCATHETER AORTIC VALVE REPLACEMENT, TRANSTHORACIC ECHOCARDIOGRAM Start: 03-29-2025 End: 03-29-2025 Anesthesia consultation 03/29/2025 12:15 PM EDT Anesthesia Event [facility] [address] [place] [id number] Alma Demarco LINER MAN - [employer] [address] [place] [address] [facility] Start: 03-29-2025 Subsequent hospital visit by physician [facility] MA[facility] OR Comment on above: Nonrheumatic aortic valve stenosis Start: 03-29-2025 End: 03-29-2025 TRANSCATHETER AORTIC VALVE REPLACEMENT (TAVR) - OR [facility] Start: 03-19-2025 End: 03-19-2026 XR Chest 2 Views [facility] Work Phone: Comment on above: Expected: 03/19/2025, Expires: Once for 1 Occurrenc es starting 03/19/2025 until 03/19/2025 Start: 03-19-2025 End: 03-19-2025 Patient encounter procedure 03/19/2025 9:00 AM EDT Appointment [facility] [address] [place] [address] [facility] [address] [facility] Start: 03-19-2025 End: 03-19-2025 ambulatory 03/19/2025 7:00 AM EDT Infusion [facility] [address] [place] [address] [facility] Start: 03-09-2025 End: 03-04-2026 CT Chest WO and CT angiogram Coronary arteries W contrast IV CTA Angiogram TAVR Imaging Routine Pre-operative cardiovascular examination Nonrheumatic aortic valve stenosis Expected: 03/09/2025, Expires: 03/04/2026 [facility] Work Phone: Comment on above: Expected: 03/09/2025, Expires: Start: 03-08-2025 COVID-19 Vaccine ( season) COVID-19 Vaccine ( season) [facility] Start: 03-08-2025 Influenza vaccination Influenza Vaccine (#1) [facility] Start: 02-25-2025 Patient discharge [facility] Start: 02-23-2025 Referral to electrician substation [facility] Start: 02-23-2025 Following clinical pathway protocol [facility] Start: 02-23-2025 Assessment of risk of venous thromboembolism [facility] Start: 02-23-2025 Bedrest with bathroom privileges [facility] Start: 02-23-2025 Insertion of catheter into peripheral vein [facility] Start: 02-23-2025 Measuring intake and output [facility] Start: 02-23-2025 Providing care according to standard [facility] Start: 02-23-2025 Referral to occupational therapist [facility] Start: 02-23-2025 Referral to service [facility] Start: 02-23-2025 Vital signs measurements [facility] Start: 02-23-2025 End: 02-23-2025 [facility] Start: 02-23-2025 Admission procedure [facility] Start: 02-23-2025 Hospital admission, emergency, from emergency room, medical nature [facility] Start: 02-23-2025 Continuous pulse oximetry [facility] Start: 02-23-2025 [facility] Start: 02-23-2025 Dual pressure spontaneous ventilation support [facility] Start: 02-23-2025 Inhalation therapy procedure [facility] Start: 02-23-2025 Patient referral to dietitian [facility] Start: 02-17-2025 Patient discharge [facility] Start: 02-17-2025 [facility] Start: 02-16-2025 Elevation of head of bed [facility] Start: 02-16-2025 Bedrest [facility] Start: 02-16-2025 Cardiac monitoring [facility] Start: 02-16-2025 Log roll [facility] Start: 02-16-2025 Systemic arterial pressure monitoring [facility] Start: 02-16-2025 End: 02-16-2025 [facility] Start: 02-16-2025 End: 02-16-2025 Notification of physician [facility] Start: 02-16-2025 Patient education [facility] Start: 02-16-2025 End: 02-16-2025 Provision of activity privileges [facility] Start: 02-16-2025 End: 02-16-2025 Pulse taking [facility] Start: 02-16-2025 Taking patient vital signs [facility] Start: 02-16-2025 Wound care [facility] Start: 02-15-2025 Catheterization of vein [facility] Start: 02-15-2025 Notification of physician [facility] Start: 02-15-2025 Preoperative care [facility] Start: 02-15-2025 [facility] Start: 02-15-2025 Care planning and problem solving actions [facility] Start: 02-14-2025 Referral to electrician substation [facility] Start: 02-14-2025 Blood culture Blood Culture [facility] Start: 02-14-2025 End: 02-15-2025 [facility] Start: 02-14-2025 [facility] Start: 02-13-2025 Respiratory therapy [facility] Start: 02-12-2025 Following clinical pathway protocol [facility] Start: 02-12-2025 Application of elastic bandage [facility] Start: 02-12-2025 Aspiration precautions [facility] Start: 02-12-2025 Assessment of risk of venous thromboembolism [facility] Start: 02-12-2025 Consultation [facility] Start: 02-12-2025 Determination of Presley Agitation Sedation Scale (RASS) score with assessment for d [facility] Start: 02-12-2025 Elevation of affected extremity [facility] Start: 02-12-2025 Elevation of head of bed [facility] Start: 02-12-2025 Fall prevention [facility] Start: 02-12-2025 Inhalation therapy procedure [facility] Start: 02-12-2025 Insertion of catheter into peripheral vein [facility] Start: 02-12-2025 Introduction of urinary catheter [facility] Start: 02-12-2025 Measuring intake and output [facility] Start: 02-12-2025 Methicillin resistant Staphylococcus aureus screening test [facility] Start: 02-12-2025 Mouth care [facility] Start: 02-12-2025 Notification of physician [facility] Start: 02-12-2025 Oxygen therapy [facility] Start: 02-12-2025 Patient education [facility] Start: 02-12-2025 Patient referral to dietitian [facility] Start: 02-12-2025 Providing care according to standard [facility] Start: 02-12-2025 Provision of activity privileges [facility] Start: 02-12-2025 Referral to upper doubler [facility] Start: 02-12-2025 Referral to occupational therapist [facility] Start: 02-12-2025 Referral to service [facility] Start: 02-12-2025 Tracheostomy care [facility] Start: 02-12-2025 Trial for daily interruption of sedation during mechanically assisted ventilation [facility] Start: 02-12-2025 Vital signs measurements [facility] Start: 02-12-2025 Respiratory therapy [facility] Start: 02-12-2025 Hospital admission, emergency, from emergency room, medical nature [facility] Start: 02-12-2025 Admission procedure [facility] Start: 02-12-2025 Verification routine [facility] Start: 02-12-2025 End: 02-12-2025 [facility] Start: 02-12-2025 Bacteria identified in Blood by Culture Blood Culture [facility] Start: 02-12-2025 Bacteria identified in Urine by Culture Urine Culture [facility] Start: 02-12-2025 Blood culture Blood Culture [facility] Start: 08-22-2023 Diabetes: Estimated Glomerular Filtration Rate for Kidney [facility] Diabetes: Estimated Glomerular Filtration Rate for Kidney [facility] Start: 08-22-2023 HEMOGLOBIN/HEMATOCRIT HEMOGLOBIN/HEMATOCRIT [facility] Start: 08-22-2023 SERUM CREATININE SERUM CREATININE [facility] Start: 06-09-2023 Urine microalbumin profile DTaP,Tdap,Td Vaccine (3 - Td or Tdap) [facility] Start: 03-08-2023 Covid-19 Vaccine ( season) Covid-19 Vaccine () [facility] Start: 03-08-2023 Influenza vaccination Influenza Vaccine (#1) [facility] Start: 02-22-2023 HEMOGLOBIN/HEMATOCRIT HEMOGLOBIN/HEMATOCRIT [facility] Start: 02-22-2023 SERUM CREATININE SERUM CREATININE [facility] Start: 11-19-2022 Hemoglobin A1c/Hemoglobin.total in Blood HBA1C [facility] Start: 07-08-2022 ADVANCE DIRECTIVE DISCUSSION ADVANCE DIRECTIVE DISCUSSION [facility] Start: 07-08-2022 DEPRESSION ASSESSMENT DEPRESSION ASSESSMENT [facility] Start: 03-23-2022 COVID-19 VACCINE (5 - Booster for Pfizer series) COVID-19 VACCINE (5 - Booster for Pfizer series) [facility] Start: 03-08-2022 Influenza vaccination INFLUENZA (#1) [facility] Start: 08-23-2021 COVID-19 VACCINE (4 - Booster for Pfizer series) COVID-19 VACCINE (4 - Booster for Pfizer series) [facility] Start: 07-08-2021 ADVANCE DIRECTIVE DISCUSSION ADVANCE DIRECTIVE DISCUSSION [facility] Start: 07-08-2021 DEPRESSION ASSESSMENT DEPRESSION ASSESSMENT [facility] Start: 04-23-2020 Adult depression screening assessment DEPRESSION SCREENING [facility] Start: 04-25-2019 Urine microalbumin profile DTAP,TDAP,TD (2 - Td or Tdap) [facility] Start: 12-19-2018 ANNUAL PCP TEAM CHRONIC DISEASE VISIT ANNUAL PCP TEAM CHRONIC DISEASE VISIT [facility] Start: 11-26-2018 Hepatitis B screening URINE ALBUMIN:CREATININE RATIO [facility] Start: 11-26-2018 Hepatitis B surface antibody level LDL CHOLESTEROL [facility] Start: 02-19-2018 Hemoglobin A1c/Hemoglobin.total in Blood HBA1C [facility] Start: 08-08-2017 End: 08-08-2017 Appointment Appointment [email or web address] Work Phone: Start: 05-27-2017 End: 05-27-2017 Appointment Appointment [email or web address] Work Phone: Start: 03-06-2017 End: 03-06-2017 Mri spinal canal lumbar w/o contrast material MRI Lumbar Spine [email or web address] Work Phone: Start: 02-25-2017 End: 02-25-2017 *Hepatic Function Panel *Hepatic Function Panel [facility] Work Phone: Start: 02-25-2017 End: 02-25-2017 DJN KEVINN [email or web address] Work Phone: Start: 02-25-2017 End: 02-25-2017 Echocardiography Echocardiogram (complete) [facility] Work Phone: Start: 02-25-2017 End: 02-25-2017 Follow Up Appt 6 months Follow Up Appt 6 months [facility] Work Phone: Start: 02-25-2017 End: 02-25-2017 Lipid panel [AGGREGATE] *Lipid Profile CC PCP [facility] Work Phone: Start: 02-19-2017 End: 02-19-2017 Follow up Appt 2x/week Follow up Appt 2x/week [facility] Work Phone: Start: 02-12-2017 End: 02-12-2017 Follow up Appt 3x/week Follow up Appt 3x/week [facility] Work Phone: Start: 02-11-2017 3 comp foot exam completed DIABETIC FOOT EXAM [facility] Start: 01-16-2017 End: 01-16-2017 Physical Therapy General Physical Therapy [facility], [address] [place] [address], [id number] [facility] Work Phone: Start: 01-09-2017 End: 01-09-2017 Radex spine lumbscrl compl w/bending views min 6 X-Ray, Spine, Lumbar, complete with bending views [facility] Work Phone: Start: 09-21-2016 End: 09-21-2016 *CBC with Differential *CBC with Differential [facility] Work Phone: Start: 08-27-2016 End: 12-17-2016 Cardiac Rehab Card[facility] Re[facility] [address] [place] [address], [id number] [facility] Work Phone: Start: 08-27-2016 End: 02-19-2017 Chest x-ray X-Ray, Chest, PA & Lateral [facility] Work Phone: Start: 08-27-2016 End: 08-27-2016 DAVID HERNANDEZ [facility] Work Phone: Start: 08-27-2016 End: 08-27-2016 Ecg routine ecg w/least 12 lds w/i&r EKG (In office) [facility] Work Phone: Start: 08-27-2016 End: 08-27-2016 Follow Up Appt 6 months Follow Up Appt 6 months [facility] Work Phone: Start: 07-19-2016 End: 07-19-2016 DAVID HERNANDEZ [facility] Work Phone: Start: 07-19-2016 End: 07-19-2016 Endocrinology Referral Endocrinology Referral Kathy (BJ) PHYLLIS Rosenthal, [address], [address], [facility], [place], [address] [facility] Work Phone: Start: 07-19-2016 End: 07-19-2016 Follow Up Appt 3 months Follow Up Appt 3 months [facility] Work Phone: Start: 07-18-2016 End: 07-19-2016 *BMP *BMP [facility] Work Phone: Start: 07-18-2016 End: 07-19-2016 aPTT *PTT-Partial Thromboplastin Time [facility] Work Phone: Start: 07-18-2016 End: 07-19-2016 CBC W Auto Differential panel - Blood *CBC without Diff [facility] Work Phone: Start: 07-18-2016 End: 07-20-2016 Chest x-ray X-Ray, Chest, PA & Lateral [facility] Work Phone: Start: 07-18-2016 End: 07-20-2016 Ecg routine ecg w/least 12 lds w/i&r EKG (In office) [facility] Work Phone: Start: 07-18-2016 End: 07-19-2016 INR Coag RelTime (PPP) *PT/INR [facility] Work Phone: Start: 07-18-2016 End: 07-19-2016 Left & Right Heart Cath Left & Right Heart Cath [facility] Work Phone: Start: 02-20-2016 End: 02-20-2016 DAVID HERNANDEZ [facility] Work Phone: Start: 02-20-2016 End: 02-20-2016 Follow Up Appt 4 months Follow Up Appt 4 months [facility] Work Phone: Start: 02-16-2016 End: 02-19-2017 *Hepatic Function Panel *Hepatic Function Panel [facility] Work Phone: Start: 02-16-2016 End: 02-19-2017 Lipid panel [AGGREGATE] *Lipid Profile CC PCP [facility] Work Phone: Start: 10-03-2015 End: 10-10-2015 *BMP *BMP [facility] Work Phone: Start: 10-03-2015 End: 10-10-2015 CBC W Auto Differential panel - Blood *CBC without Diff [facility] Work Phone: Start: 09-08-2015 End: 09-08-2015 Transesophageal echocardiogram (ADILIA) Transesophageal echocardiogram (ADILIA) [facility] Work Phone: Start: 09-07-2015 End: 09-07-2015 *BMP *BMP [facility] Work Phone: Start: 09-07-2015 End: 09-07-2015 aPTT *PTT-Partial Thromboplastin Time [facility] Work Phone: Start: 09-07-2015 End: 09-07-2015 CBC W Auto Differential panel - Blood *CBC without Diff [facility] Work Phone: Start: 09-07-2015 End: 09-08-2015 Chest x-ray X-Ray, Chest, PA & Lateral [facility] Work Phone: Start: 09-07-2015 End: 09-07-2015 INR Coag RelTime (PPP) *PT/INR [facility] Work Phone: Start: 09-07-2015 End: 09-07-2015 Left & Right Heart Cath Left & Right Heart Cath [facility] Work Phone: Start: 08-15-2015 End: 08-17-2015 *Hepatic Function Panel *Hepatic Function Panel [facility] Work Phone: Start: 08-15-2015 End: 02-10-2016 DJN DJN [facility] Work Phone: Start: 08-15-2015 End: 09-05-2015 Ecg routine ecg w/least 12 lds w/i&r EKG (In office) [email or web address] Work Phone: Start: 08-15-2015 End: 08-15-2015 Echocardiography Echocardiogram (complete) [email or web address] Work Phone: Start: 08-15-2015 End: 02-10-2016 Follow Up Appt 6 months Follow Up Appt 6 months [facility] Work Phone: Start: 08-15-2015 End: 08-15-2015 Follow Up BP Check Follow Up BP Check [email or web address] Work Phone: Start: 08-15-2015 End: 08-17-2015 Lipid panel [AGGREGATE] *Lipid Profile CC PCP [email or web address] Work Phone: Start: 08-15-2015 End: 08-15-2015 Stress Echocardiogram (treadmill) Stress Echocardiogram (treadmill) [email or web address] Work Phone: Start: 04-21-2013 Hepatitis C antibody, confirmatory test DILATED RETINAL EXAM [facility] Start: 04-25-2010 PNEUMOCOCCAL: 65+ (2 - PCV) PNEUMOCOCCAL: 65+ (2 - PCV) [facility] Start: 2009 Hepatitis B Vaccine (1 of 3 - Risk 3-dose series) Hepatitis B Vaccine (1 of 3 - Risk 3-dose series) [facility] Start: 2009 RSV Vaccine (1 - 1-dose 60+ series) RSV Vaccine (1 - 1-dose 60+ series) [facility] Start: 1999 SHINGRIX VACCINE (1 of 2) SHINGRIX VACCINE (1 of 2) [facility] Start: 1994 COLOGUARD (FIT-DNA) COLOGUARD (FIT-DNA) [facility] Start: [address] COLONOGRAPHY [facility] Start: 1994 FECAL OCCULT BLOOD FECAL OCCULT BLOOD [facility] Start: 1994 SIGMOIDOSCOPY SIGMOIDOSCOPY [facility] Start: 1979 Zoledronic acid therapy ALPHA-1 ANTITRYPSIN DEFICIENCY SCREENING [facility] Start: 1967 Annual PCP Team Chronic Disease Visit Annual PCP Team Chronic Disease Visit [facility] Start: 1967 Diabetes: Urine Albumin-Creatinine Ratio for Kidney Health Diabetes: Urine Albumin-Creatinine Ratio for Kidney Health [facility] Start: 1967 Hepatitis C screening Hepatitis C Screening [facility] Start: 1967 SPIROMETRY SPIROMETRY [facility] Start: 1961 Depression Screening Depression Screening [facility] Start: 1959 Glaucoma screening Diabetes: Retinopathy Screening [facility] Start: 1949 ABDOMINAL AORTIC ANEURYSM SCREENING ABDOMINAL AORTIC ANEURYSM SCREENING [facility] Start: 1949 Medicare Annual Wellness (AWV) Medicare Annual Wellness (AWV) [facility] Start: 1949 Screening for malignant neoplasm of colon [facility] End: 02-22-2023 COLONOSCOPY DIAGNOSTIC COLONOSCOPY DIAGNOSTIC Endoscopy Routine Gastroesophageal reflux disease, unspecified whether esophagitis present Iron deficiency anemia, unspecified iron deficiency anemia type 1 Occurrences starting 02/22/2022 until 02/22/2023 [facility] Work Phone: Comment on above: 1 Occurrences starting 02/22/2022 until 02/22/2023 End: 02-23-2022 Ct abdomen & pelvis w/o contrast material [facility] Work Phone: Comment on above: 1 Occurrences starting 02/23/2022 until 02/23/2022 End: 03-19-2025 CT Chest WO and CT angiogram Coronary arteries W contrast IV [facility] Work Phone: Comment on above: Once for 1 Occurrences starting 03/19/20 until 03/19/2025 ECG 12 lead - CLINIC PERFORMED ECG 12 lead - CLINIC PERFORMED CV ECG Routine Pre-operative cardiovascular examination Nonrheumatic aortic valve stenosis 03/09/2025 1:54 PM EDT [facility] Work Phone: End: 02-22-2023 EGD DIAGNOSTIC EGD DIAGNOSTIC Endoscopy Routine Gastroesophageal reflux disease, unspecified whether esophagitis present Iron deficiency anemia, unspecified iron deficiency anemia type 1 Occurrences starting 02/22/2022 until 02/22/2023 [facility] Work Phone: Comment on above: 1 Occurrences starting 02/22/2022 until 02/22/2023 Patient Education [facility] Work Phone: Respiratory pathogen s DNA and RNA panel - Respiratory specimen by BRUCE with probe detection [facility] TRANSCATHETER AORTIC VALVE REPLACEMENT (TAVR) TRANSCATHETER AORTIC VALVE REPLACEMENT (TAVR) Nonrheumatic aortic valve stenosis [facility] TRANSCATHETER AORTIC VALVE REPLACEMENT (TAVR) - OR TRANSCATHETER AORTIC VALVE REPLACEMENT (TAVR) - OR Nonrheumatic aortic valve stenosis [facility] Troponin T.cardiac [Mass/volume] in Serum or Plasma by High sensitivity method [facility] Troponin T.cardiac [Mass/volume] in Serum or Plasma by High sensitivity method [facility] Troponin T.cardiac [Mass/volume] in Serum or Plasma by High sensitivity method [facility] Urine culture [facility] Immunizations Immunization Date Immunization Notes Care Provider [facility] 04-02-2024 influenza virus vaccine, unspecified formulation Prai Zeng MD Work Phone: [facility] 06-06-2022 COVID-19 booster vaccine, age 12+ yr, bivalent (PFIZER-BIONTECH) Immunization [facility] Work Phone: [facility] Work Phone: 06-06-2022 influenza, high-dose , quadrivalent vaccine (FLUZONE HIGH DOSE QUADRIVALENT) Immunization [facility] Work Phone: [facility] Work Phone: 06-06-2022 influenza virus vaccine, unspecified formulation Jess Baker MD Work Phone: [facility] 04-17-2011 influenza virus vaccine, unspecified formulation Ct (I-Stat) Work Phone: [facility] Work Phone: 04-25-2009 pneumococcal polysaccharide vaccine, [address] (I-Stat) Work Phone: [facility] Work Phone: 04-25-2009 tetanus toxoid, redu barrett diphtheria toxoid, and acellular pertussis vaccine, adsorbed Ct (I-Stat) Work Phone: [facility] Work Phone: Payers Date Payer Category Payer Unknown [id number] 2024 Self-pay [id number] 2014 Medicare [id number] 2014 Medicare supplementa l policy (as second payer) [id number] 2014 Private Health Insurance [facility] AARP SUPPLEMENT [id number] 2014-Present [phone] [address] [place] [address] Indemnity [id number] 2014 Medicare [id number] 2014 Unknown [id number] Medicare [id number] Self-pay [id number] Unknown [id number] 2..[id number]. 2.462 Unknown [id number] 2.0.1.258715.3.579. 2.462 Unknown [id number] ..[id number]. 2.462 Unknown [id number] .0.1.504651.3.579. 2.462 Unknown [id number] 2.0.1.298804.3.579. 2.462 Unknown [id number] 2.0.1.395529.3.579. 2.462 Unknown [id number] 2.0.1.998571.3.579. 2.462 Unknown [id number] .0.1.936197.3.579. 2.462 Unknown [id number] 2.16.840.1.816360.3.579. 2.462 Unknown [id number] 2.16.840.1.047895.3.579. 2.462 Unknown [id number] 2.16.840.1.363738.3.579. 2.462 Unknown [id number] 2.16.840.1.244383.3.579. 2.462 Unknown [id number] 2.16.840.1.142093.3.579. 2.462 Unknown [id number] 2.16.840.1.367663.3.579. 2.462 Unknown [id number] 2.16840.1.862865.3.579. 2.462 Unknown [id number] 2.16.840.1.883041.3.579. 2.462 Unknown [id number] 2.16840.1.616178.3.579. 2.462 Unknown [id number] 2.16840.1.968807.3.579. 2.462 Unknown [id number] 2.16840.1.291066.3.579. 2.462 Unknown [id number] 2.16840.1.474638.3.579. 2.462 Unknown [id number] 2.16.840.1.316521.3.579. 2.462 Unknown [id number] 2.16.840.1.022648.3.579. 2.462 Unknown [id number] 2.16.840.1.821966.3.579. 2.462 Unknown [id number] 2.16.840.1.068987.3.579. 2.462 Unknown [id number] 2.16.840.1.202816.3.579. 2.462 Unknown [id number] 2.16.840.1.794520.3.579. 2.462 Unknown [id number] 2.16.840.1.322362.3.579. 2.462 Social History Date Type Detail Facility Start: 10-09-2021 End: 03-03-2025 Tobacco smoking status COIS Unknown if ever smoked [facility] Start: 1950 Sex Assigned At Male [facility] Start: 02-22-2022 End: 03-04-2025 Tobacco smoking status NHIS Ex-smoker [facility] End: 07-08-1997 History of tobacco use Current smoker [facility] End: 07-08-1997 History of tobacco use Cigarette Smoker [facility] Start: 02-22-2022 Tobacco use and exposure Former smokeless tobacco user [facility] End: 07-08-2020 History of tobacco use Chews Tobacco [facility] Start: 02-22-2022 End: 07-24-2022 Alcohol intake Current drinker of alcohol (finding) [facility] Start: 02-22-2022 End: 03-29-2025 Alcohol intake [facility] Start: 02-22-2022 History SDOH Alcohol Comment occassional [facility] Start: 02-22-2022 Tobacco Comment chewing [facility] Start: 1950 Sex Assigned At Not on file [facility] Start: 02-12-2022 End: 04-05-2022 Exposure to SARS-CoV-2 (event) Not sure [facility] Start: 07-24-2022 End: 03-29-2025 Tobacco use panel [facility] Adult Depression Screening Assessment 2 [facility] Start: 03-04-2025 Tobacco use and exposure Smokeless tobacco non-user [facility] Start: 03-09-2025 End: 03-29-2025 Alcoholic beverage intake Ex-drinker (finding) [facility] Start: 02-23-2025 Sex Male (finding) [facility] Medical Equipment Procedure Code Equipment Code Equipment Origin al Text Equipment Identifier Dates Graft Duragen Pl us Bovine Collagen Matrix 2x2in Soft Tissue Patch - [id number] Start: 12-03-2017 Valve Aor Shivani 3 Ultra 26mm - [id number] - [id number] Start: 03-29-2025 Device Closure Perclose 6fr - [id number] Start: 03-29-2025 Device Closure Perclose 6fr - [id number] Start: 03-29-2025 Device Closure Vascade Mvp - [id number] Start: 03-29-2025 Goals Date Patient Goal Desired Activity /State Functional Status Date Assessment Result Facility 02-25-2025 Functional status Ambulates [facility] Work Phone: 02-17-2025 Functional status Ambulates [facility] Work Phone: Mental Status Date Assessment Result Facility 02-25-2025 Cognitive function Voice/Name [facility] Work Phone: 02-17-2025 Cognitive function Voice/Name [facility] Work Phone: Clinical Notes 08-06-2016 to 03-31-2025 Laura Mcgraw - 2025 10:41 AM EDTPtaj Mcgraw - 2025 10:41 AM EDTDischarge InstructionsCare Coordination - Elias Ford RN - 2025 7:42 AM EDT Note Date & Type Note Facility 03-31-2025 Note Patient called jose david ramirez to let us know of some pain he is having since being home after his procedure. [facility] 2025 Consult note Associated Order (s): IP CONSULT TO CARDIAC REHAB Received referral and reviewed chart. Phase II Cardiopulmonary Rehab Referral discussed with Sam Vidales. Patient prefers cardiopulmonary rehab at [facility]. Given information on program at preferred location. [facility] 2025 Note Received referral an d reviewed chart. Phase II Cardiopulmonary Rehab Referral discussed with Sam Vidales. Patient prefers cardiopulmonary rehab at [facility] [facility] Given information on program at preferred location. [facility] 2025 Consult note Associated Order (s): IP CONSULT TO CARDIAC REHAB Received referral and reviewed chart. Phase II Cardiopulmonary Rehab Referral discussed with Sam Vidales. Patient prefers cardiopulmonary rehab at [facility]. Given information on program at preferred location. documented in this encounter [facility] 2025 Hospital Discharg e instructions Zonia ColePAULINA - [employer]CH - 2025 8:44 AM EDT - Please call the [facility] with any questions: [phone] -You will have have the following follow up appointments in the Heart Valve Clinic: one week post procedure, one month post procedure with echocardiogram, one year post procedure with echocardiogram. -Wash groin/wrist incision with soap and water, pat dry. Apply bandage for 5 days. If you have a chest incision, you will receive specific instructions from your surgeon regarding care of the incision. -Check incision every day. If you see any changes in the way it looks, call the Heart Valve Clinic at . Look for any of these problems: redness and warmth that does not go away, yellow or green drainage from the wound, fever and chills, numbness in your legs, pain that is getting worse. -It is normal to have a bruise or soft lump in the groin. This will get smaller and go away with time -Do not drive until after your first Heart Valve Clinic Appointment. -Do not lift, push, or pull anything weighing more than 5 lbs or more for one week if you had the procedure through your groin and 4 weeks if you had the procedure through the chest -We strongly encourage a regular exercise program such as cardiac rehabilitation once you have been cleared to resume normal activity. -Eating well is important for your recovery. Eat nutritious foods every day. Please follow a cardiac, 2 gram sodium diet. Please continue to follow any other dietary recommendations provided by your health care provider prior to your valve surgery. -From now on, tell your doctors and health care providers about your heart valve implantation (prosthetic heart valve ). -If you go to the emergency room or are admitted to the hospital during the first year after your procedure, please call the Heart Valve Clinic at -If you have major dental work or other invasive medical procedures (like surgery) you may need to take antibiotics before the dental work or the procedure. Please discuss with your health care provider. - You will need to take blood thinning medications (antiplatelet) after your valve procedure. Generally, this includes aspirin alone, unless you take blood thinning medications for another indication (warfarin, apixaban, rivaroxaban). If you take blood thinning medications, these are generally sufficient and aspirin will not be required unless otherwise specified. documented in this encounter [facility] 2025 Note Care Management Prog ress Note Short Medical why still here: Tcc chart review complete, s/p TAVR, tele, tcc to follow Planned Discharge Disposition: Home or Self Care (tbd) - spoke with pt, introduced myself and role, discussed the discharge planning process, pt states he lives with spouse at home, verified his insurance and states he is currently btween PCP's as his currently retired, pt thankful having no further needs/concerns, advised pt to reach back out if he had any further questions. Barriers/Today we still Wait: Administering IV medications, Clinical stability, Electrodynamicist recommendations (comment), Symptomatic control Length of Stay (Days): 1 GMLOS: No GMLOS Documented [facility] 2025 Progress note Formatting of t his note might be different from the original. Care Management Progress Note Short Medical why still here: Tcc chart review complete, s/p TAVR, tele, tcc to follow Planned Discharge Disposition: Home or Self Care (tbd) - spoke with pt, introduced myself and role, discussed the discharge planning process, pt states he lives with spouse at home, verified his insurance and states he is currently btween PCP's as his currently retired, pt thankful having no further needs/concerns, advised pt to reach back out if he had any further questions. Barriers/Today we still Wait: Administering IV medications, Clinical stability, Electrodynamicist recommendations (comment), Symptomatic control Length of Stay (Days): 1 GMLOS: No GMLOS Documented [facility] 2025 Miscellaneous Notes Care Management Progress Note Short Medical why still here: Tcc chart review complete, s/p TAVR, tele, tcc to follow Planned Discharge Disposition: Home or Self Care (tbd) - spoke with pt, introduced myself and role, discussed the discharge planning process, pt states he lives with spouse at home, verified his insurance and states he is currently btween PCP's as his currently retired, pt thankful having no further needs/concerns, advised pt to reach back out if he had any further questions. Barriers/Today we still Wait: Administering IV medications, Clinical stability, Electrodynamicist recommendations (comment), Symptomatic control Length of Stay (Days): 1 GMLOS: No GMLOS Documented CARDIOTHORACIC SURGERY--OPERATIVE NOTE Date: 03/29/25 Preoperative diagnosis: Severe symptomatic aortic stenosis Postoperative diagnosis: Severe symptomatic aortic stenosis Surgeon: Car Amaya MD Regional Controller: MD Jarrod Ba MD Procedure: Transcatheter aortic valve replacement with 26 mm SHIVANI S3 valve Transthoracic echocardiogram Complications: None Anesthesia: Local with conscious sedation Indications for procedure: This is an 74 y.o. M with h/o cabg, ckd, htn, HPL, with severe symptomatic aortic stenosis. Risks and benefits of TAVR were discussed with the patient and they wished to proceed with the procedure. Procedure in detail: The patient was positioned supine on the operating room table. The patient was prepped and draped in usual sterile fashion. Vascular access was gained in the right common femoral artery, right radial artery and right common femoral vein. Systemic heparin 100 mg/kg was given. Please refer to the cardiology dictation for placement of wires and sheaths. Temporary ventricular pacing wire was placed into the right ventricle using fluoroscopic guidance. After determination of the deployment angle the expandable sheath was placed through the right femoral artery. The aortic valve was then crossed using a straight wire. This wire was exchanged for an Amplatz Extra Stiff wire for placement of the prosthesis. The valve was introduced over the wire through the E sheath into the descending thoracic aorta where it was mounted on the balloon. This was then passed across the aortic arch and the aortic valve annulus. The valve was deployed under rapid ventricular pacing. It appeared to be well seated. Echocardiogram confirmed good position, no paravalvular leak, and appropriate gradients. The deployment device was removed. Protamine was then given to reverse the systemic effects of heparin and the patient was subsequently decannulated and transferred stable to the recovery room. The patient tolerated the procedure well. Disposition: Stable to ICU Car Amaya MD Cardiothoracic Surgeon 03/29/25 documented in this encounter [facility] 2025 Note Name: Sam Vidales Date of : 1950 Date of Admission: 03/29/2025 Date of Discharge: 2025 Admitting physician: Celestine Alvarez MD Discharge Attending: PAULINA Welsh CNP Primary Care Physician: No primary care provider on file. Reason for Admission: Severe Symptomatic Aortic Stenosis Consultants: Cardiac Rehab HOSPITAL ADMISSION PROBLEM LIST: Problem List[1] Review of Systems Review of Systems Constitutional: Negative for chills and fever. Respiratory: Negative for cough and shortness of breath. Cardiovascular: Negative for chest pain, palpitations and leg swelling. Gastrointestinal: Negative for abdominal pain, blood in stool and vomiting. Genitourinary: Negative for hematuria. Neurological: Negative for dizziness and syncope. Physical Exam Physical Exam Constitutional: Appearance: Normal appearance. HENT: Head: Normocephalic. Eyes: General: No scleral icterus. Right eye: No discharge. Left eye: No discharge. Cardiovascular: Rate and Rhythm: Normal rate and regular rhythm. Pulses: Normal pulses. Radial pulses are 2+ on the right side. Dorsalis pedis pulses are 2+ on the right side and 2+ on the left side. Posterior tibial pulses are 2+ on the right side and 2+ on the left side. Heart sounds: Normal heart sounds. No murmur heard. Comments: R radial cath site without hematoma, ecchymosis or oozing. R hand with brisk capillary refill R femoral cath site without hematoma, ecchymosis, oozing or bruit Pulmonary: Effort: Pulmonary effort is normal. Breath sounds: Normal breath sounds. Abdominal: General: Abdomen is flat. Palpations: Abdomen is soft. Musculoskeletal: General: Normal range of motion. Cervical back: Normal range of motion. Right lower leg: No edema. Left lower leg: No edema. Skin: General: Skin is warm and dry. Capillary Refill: Capillary refill takes less than 2 seconds. Neurological: Mental Status: He is alert and oriented to person, place, and time. Psychiatric: Mood and Affect: Mood normal. Procedures: Transfemoral transcatheter AVR with 26 mm Shivani S3 valve under moderate sedation Transthoracic echocardiogram HOSPITAL COURSE : The patient was admitted to the hospital for elective TAVR on 03/29/25 . A 26 Shivani S3 valve was implanted. The patient returned to [facility] for recovery. Vital signs and labs were stable. There were no groin complications. The patient was ambulatory the evening of the procedure. On day of discharge, he reported feeling well. Denied angina, SOB or dizziness. Slight surface ooze from right groin site. QuikClot placed and hemostasis achieved. Advised to no remove dressing until 9 AM tomorrow. Post procedure echocardiogram demonstrated : 03/29/25 Left Ventricle: Left ventricle size is normal. Moderately increased wall thickness. The EF by visual approximation is 60%. Normal wall motion. Right Ventricle: Right ventricle size is normal. Normal systolic function. Aortic Valve: Keith Shivani 3 transcatheter bioprosthetic aortic valve with a size of 26 mm. AV mean gradient is 7 mmHg. No regurgitation. No paravalvular regurgitation. No stenosis. Pulmonary Arteries: Pulmonary hypertension present. Successful placement and function of a bioprosthetic Keith SHIVANI 3 aortic valve. Prevalve replacement the mean gradient was 55 mmHg, dimensionless index 0.13, calculated valve area 0.4 cm?. Post valve replacement the mean gradient was 7 mmHg without aortic regurgitation. LV function and RV function remained normal. There was no pericardial effusion. Complete echo to follow. Patient education including SBE prophylaxis, activity, access site care, follow up appointments, and medications was provided. The patient verbalized understanding, questions were answered. The patient was discharged home in good condition. Referral to cardiac rehabilitation has been recommended and discussed with the patient prior to discharge. Referral has been made to the [facility] Outpatient Cardiac Rehabilitation Program. Last Labs: Lab Results Component Value Date WBC 8.5 2025 HGB 11.0 (L) 2025 HCT 33.0 (L) 2025 MCV 88.9 2025 PLT 206 2025 Lab Results Component Value Date NA 136 2025 K 4.3 2025 CL 106 2025 CO2 19 (L) 2025 BUN 58 (H) 2025 CREATININE 3.07 (H) 2025 GLUCOSE 154 (H) 2025 CALCIUM 8.8 2025 No results found for: CHLPL, CHOL No results found for: TRIG No results found for: HDL No results found for: LDLCALC Discharge Medications: Medication List ASK your doctor about these medications aspirin 81 MG EC tablet atorvastatin 40 MG tablet Commonly known as: Lipitor carvedilol 25 MG tablet Commonly known as: Coreg chlorthalidone 25 MG tablet Commonly known as: Hygroton dulaglutide 0.75 MG/0.5ML Commonly known as: Trulicity (more content not included)... [facility] 2025 Hospital course Narrative Name: Sam Vidales Date of : 1950 Date of Admission: 03/29/2025 Date of Discharge: 2025 Admitting physician: Celestine Alvarez MD Discharge Attending: Zonia Cole APRN - RAI Primary Care Physician: No primary care provider on file. Reason for Admission: Severe Symptomatic Aortic Stenosis Consultants: Cardiac Rehab HOSPITAL ADMISSION PROBLEM LIST: Problem List[1] Review of Systems Review of Systems Constitutional: Negative for chills and fever. Respiratory: Negative for cough and shortness of breath. Cardiovascular: Negative for chest pain, palpitations and leg swelling. Gastrointestinal: Negative for abdominal pain, blood in stool and vomiting. Genitourinary: Negative for hematuria. Neurological: Negative for dizziness and syncope. Physical Exam Physical Exam Constitutional: Appearance: Normal appearance. HENT: Head: Normocephalic. Eyes: General: No scleral icterus. Right eye: No discharge. Left eye: No discharge. Cardiovascular: Rate and Rhythm: Normal rate and regular rhythm. Pulses: Normal pulses. Radial pulses are 2+ on the right side. Dorsalis pedis pulses are 2+ on the right side and 2+ on the left side. Posterior tibial pulses are 2+ on the right side and 2+ on the left side. Heart sounds: Normal heart sounds. No murmur heard. Comments: R radial cath site without hematoma, ecchymosis or oozing. R hand with brisk capillary refill R femoral cath site without hematoma, ecchymosis, oozing or bruit Pulmonary: Effort: Pulmonary effort is normal. Breath sounds: Normal breath sounds. Abdominal: General: Abdomen is flat. Palpations: Abdomen is soft. Musculoskeletal: General: Normal range of motion. Cervical back: Normal range of motion. Right lower leg: No edema. Left lower leg: No edema. Skin: General: Skin is warm and dry. Capillary Refill: Capillary refill takes less than 2 seconds. Neurological: Mental Status: He is alert and oriented to person, place, and time. Psychiatric: Mood and Affect: Mood normal. Procedures: Transfemoral transcatheter AVR with 26 mm Shivani S3 valve under moderate sedation Transthoracic echocardiogram HOSPITAL COURSE : The patient was admitted to the hospital for elective TAVR on 03/29/25 . A 26 Shivani S3 valve was implanted. The patient returned to [facility] for recovery. Vital signs and labs were stable. There were no groin complications. The patient was ambulatory the evening of the procedure. On day of discharge, he reported feeling well. Denied angina, SOB or dizziness. Slight surface ooze from right groin site. QuikClot placed and hemostasis achieved. Advised to no remove dressing until 9 AM tomorrow. Post procedure echocardiogram demonstrated : 03/29/25 Left Ventricle: Left ventricle size is normal. Moderately increased wall thickness. The EF by visual approximation is 60%. Normal wall motion. Right Ventricle: Right ventricle size is normal. Normal systolic function. Aortic Valve: Keith Shivani 3 transcatheter bioprosthetic aortic valve with a size of 26 mm. AV mean gradient is 7 mmHg. No regurgitation. No paravalvular regurgitation. No stenosis. Pulmonary Arteries: Pulmonary hypertension present. Successful placement and function of a bioprosthetic Keith SHIVANI 3 aortic valve. Prevalve replacement the mean gradient was 55 mmHg, dimensionless index 0.13, calculated valve area 0.4 cm . Post valve replacement the mean gradient was 7 mmHg without aortic regurgitation. LV function and RV function remained normal. There was no pericardial effusion. Complete echo to follow. Patient education including SBE prophylaxis, activity, access site care, follow up appointments, and medications was provided. The patient verbalized understanding, questions were answered. The patient was discharged home in good condition. Referral to cardiac rehabilitation has been recommended and discussed with the patient prior to discharge. Referral has been made to the [facility] Outpatient Cardiac Rehabilitation Program. Last Labs: Lab Results Component Value Date WBC 8.5 2025 HGB 11.0 (L) 2025 HCT 33.0 (L) 2025 MCV 88.9 2025 PLT 206 2025 Lab Results Component Value Date NA 136 2025 K 4.3 2025 CL 106 2025 CO2 19 (L) 2025 BUN 58 (H) 2025 CREATININE 3.07 (H) 2025 GLUCOSE 154 (H) 2025 CALCIUM 8.8 2025 No results found for: CHLPL, CHOL No results found for: TRIG No results found for: HDL No results found for: LDLCALC Discharge Medications: Medication List ASK your doctor about these medications aspirin 81 MG EC tablet atorvastatin 40 MG tablet Commonly known as: Lipitor carvedilol 25 MG tablet Commonly known as: Coreg chlorthalidone 25 MG tablet Commonly known as: Hygroton dulaglutide 0.75 MG/0.5ML Commonly known as: Trulicity ezetimibe 10 MG tablet Commonly known as: Zetia felodipine ER 2.5 MG 24 hr tablet Commonly known as: Plendil insulin glargine 100 UNIT/ML injection Commonly known as: Lantus isosorbide mononitrate ER 30 MG 24 hr tablet Commonly known as: Imdur Jardiance 25 MG Generic drug: empagliflozin Lasix 40 MG tablet Generic drug: furosemide minoxidil 2.5 MG tablet Commonly known as: Loniten DIET: A low fat, low cholesterol, 2 gramsodium diet was discussed with the patient. Discharge to home Condition at Discharge: Stable, improved Final Primary Dx: Severe Symptomatic Aortic Stenosis Transfemoral TAVR Secondary Dx: First degree AVB, known CAD/CABG 2017 CKD stage 4 HTN HLD BMI Classification: Normal Weight (BMI 18.5-24.9) Follow up with [facility] Valve [facility] one week, appt arranged If any questionscall [facility] 2 [phone] Greater than 30 minutes spent on patient discharge including assessment/plan, education, and coordination of care Electronically signed by PAULINA Welsh CNP Date: 2025 [1] Patient Active Problem List Diagnosis CAD (coronary artery disease) HLD (hyperlipidemia) CKD (chronic kidney disease) Diabetes mellitus type II, non insulin dependent (HCC) Nonrheumatic aortic valve stenosis Renal failure Severe aortic stenosis Cosigned by Celestine Alvarez MD at 2025 12:46 PM EDT documented in this encounter [facility] 03-29-2025 Note Patient: Sam yates Procedure Summary Date: 03/29/25 Room / Location: [facility] [place] Operating Room Anesthesia Start: 1230 Anesthesia Stop: 1352 Procedures: TRANSCATHETER AORTIC VALVE REPLACEMENT, TRANSTHORACIC ECHOCARDIOGRAM TRANSCATHETER AORTIC VALVE REPLACEMENT (TAVR) - OR (Chest) Diagnosis: Nonrheumatic aortic valve stenosis Surgeons: Celestine Alvarez MD; Car Amaya MD Responsible Provider: Job Hendrickson MD Anesthesia Type: MAC, TIVA ASA Status: 4 Anesthesia Type: MAC, TIVA Vitals Value Taken Time BP 187/68 03/29/25 14:30 Temp 36.5 03/29/25 14:41 Pulse 58 03/29/25 14:40 Resp 17 03/29/25 14:41 SpO2 98 % 03/29/25 14:40 Vitals shown include unfiled device data. Anesthesia Post Evaluation Patient location during evaluation: ICU Patient participation: complete - patient participated Level of consciousness: alert and oriented x3 Pain management: adequate Airway patency: patent Dental Injury: no Cardiovascular status: acceptable and hemodynamically stable Respiratory status: acceptable, spontaneous ventilation and room air Hydration status: acceptable Nausea/Vomiting: controlled No notable events documented. Patient can be discharged once all PACU criteria has been met. [facility] 03-29-2025 Note Patient: Sam yates Procedure Summary Date: 03/29/25 Room / Location: [facility] Operating Room Anesthesia Start: 1230 Anesthesia Stop: 1352 Procedures: TRANSCATHETER AORTIC VALVE REPLACEMENT, TRANSTHORACIC ECHOCARDIOGRAM TRANSCATHETER AORTIC VALVE REPLACEMENT (TAVR) - OR (Chest) Diagnosis: Nonrheumatic aortic valve stenosis Surgeons: Celestine Alvarez MD; Car Amaya MD Responsible Provider: Job Hendrickson MD Anesthesia Type: MAC, TIVA ASA Status: 4 Anesthesia Type: MAC, TIVA Vitals Value Taken Time BP 187/68 03/29/25 14:30 Temp 36.5 03/29/25 14:40 Pulse 60 03/29/25 14:39 Resp 17 03/29/25 14:40 SpO2 98 % 03/29/25 14:39 Vitals shown include unfiled device data. Anesthesia Post Evaluation Patient participation: complete - patient participated Level of consciousness: alert and oriented x3 Pain management: adequate Airway patency: patent Two or more strategies used to mitigate risk of obstructive sleep apnea Respiratory status: spontaneous ventilation Cardiovascular status: hemodynamically stable Hydration status: WDL PONV: none Comments: Sedated/intubated No notable events documented. MIPS #[id number] PONV Patient did not receive an inhalational anesthetic (XX430) MIPS # 424 Perioperative Temperature Management Anesthesia time was 60 minutes or longer (4255F) Anesthesai administered was General (inhalational or TIVA) or Neuraxial block (X0424) At least one body temperature greater than 95.8F/35.5C achieved within the 30 mins immediately prior to or the 15 minutes immediately following anesthesia end time (G9771) MIPS #477 Multimodal Pain Management Not emergent case Patient was not administered multimodal pain management (G2149) Patient reports no pain in PACU (G2149) MIPS #404 Anesthesiology Smoking Abstinence The patient is not a current smoker (e.g. cigarette, cigar, pipe, e-cigarette/vaping/marijuana) If no stop here (XX404) I completed my handoff to the receiving clinician during which we: 1. Identified the patient 2. Identified the responsible provider 3. Reviewed the pertinent medical history 4. Discussed the surgical course 5. Reviewed intra-op anesthesia management and issues during anesthesia 6. Set expectations for post-procedure period 7. Allowed opportunity for questions and acknowledgement of understanding. [facility] 03-29-2025 Note Arterial Line: Date/Time: 03/29/2025 1:02 PM An arterial line was placed in the Procedural for the following indication(s): continuous blood pressure monitoring and blood sampling needed. The procedure was performed using ultrasound guidance . A 5 Chilean (size), 1 and 3/4 inch (length), Arrow (type) catheter was placed, into the Right radial artery, secured by Tegaderm and tape. Events: patient tolerated procedure well with no complications. Staffing Performed: Other Other staff: Cyndi Alvarez MD [facility] 03-29-2025 Procedure note CARDIOTHORACIC SURGERY--OPERATIVE NOTE Date: 03/29/25 Preoperative diagnosis: Severe symptomatic aortic stenosis Postoperative diagnosis: Severe symptomatic aortic stenosis Surgeon: Car Amaya MD Regional Controller: MD Jarrod Ba MD Procedure: Transcatheter aortic valve replacement with 26 mm SHIVANI S3 valve Transthoracic echocardiogram Complications: None Anesthesia: Local with conscious sedation Indications for procedure: This is an 74 y.o. M with h/o cabg, ckd, htn, HPL, with severe symptomatic aortic stenosis. Risks and benefits of TAVR were discussed with the patient and they wished to proceed with the procedure. Procedure in detail: The patient was positioned supine on the operating room table. The patient was prepped and draped in usual sterile fashion. Vascular access was gained in the right common femoral artery, right radial artery and right common femoral vein. Systemic heparin 100 mg/kg was given. Please refer to the cardiology dictation for placement of wires and sheaths. Temporary ventricular pacing wire was placed into the right ventricle using fluoroscopic guidance. After determination of the deployment angle the expandable sheath was placed through the right femoral artery. The aortic valve was then crossed using a straight wire. This wire was exchanged for an Amplatz Extra Stiff wire for placement of the prosthesis. The valve was introduced over the wire through the E sheath into the descending thoracic aorta where it was mounted on the balloon. This was then passed across the aortic arch and the aortic valve annulus. The valve was deployed under rapid ventricular pacing. It appeared to be well seated. Echocardiogram confirmed good position, no paravalvular leak, and appropriate gradients. The deployment device was removed. Protamine was then given to reverse the systemic effects of heparin and the patient was subsequently decannulated and transferred stable to the recovery room. The patient tolerated the procedure well. Disposition: Stable to ICU Car Amaya MD Cardiothoracic Surgeon 03/29/25 [facility] Work Phone: 03-29-2025 Attending History and physical note H&P reviewed. The patient was examined and there are no changes to the H&P. Source Note - Zonia Cole APRN - [employer] - 03/26/2025 9:54 AM EDT Images from the original note were not included. Celestine Alvarez MD Cardiology Pre-operative cardiovascular examination +1 more Dx New Patient Cardiac Valve Problem Reason for Visit Progress Notes Celestine Alvarez MD (Physician) Cardiology Expand [facility] CARDIOLOGY - [place] [address] [facility] [address] Dept: [phone] Dept Visit type: New : 1950 Reason for Visit: Severe Aortic Stenosis Assessment and Plan Assessment: 74-year-old man with prior CABG (2016), CKD4, HTN, and hyperlipidemia with clear progression to severe calcific aortic stenosis. His 2022 echo showed a mean gradient 28 mmHg; the 02/12/25 study now shows preserved LVEF (55-60%), moderate eccentric LVH, and very high gradients (peak/mean 95/64 mmHg). BARBARA could not be measured. Reported cath shows no significant disease within bypass grafts (final report pending). The hemodynamics are consistent with severe--likely very severe--aortic stenosis (peak gradient ~95 mmHg corresponds to Vmax ?4.9 m/s). Given prior CABG and CKD, a transcatheter approach is favored pending anatomic confirmation. Plan: Urgent outpatient TAVR workup: ECG-gated CTA (TAVR protocol) for annular sizing, coronary heights, valve morphology, and iliofemoral access Heart-team review: multidisciplinary discussion (interventional + CT surgery + imaging) to confirm TAVR as preferred strategy given prior CABG and comorbidities. Coronary strategy: confirm cath findings once official report posts; no PCI anticipated if grafts are patent and no ischemic territory is identified. CKD precautions: contrast-sparing protocol for CTA/TAVR; periprocedural hydration as appropriate; hold metformin on contrast days and 48 hours after with creatinine recheck if applicable. Subjective New referral from Dr. Mary for evaluation of aortic stenosis. Past history includes CABG in 2016, CKD, hypertension, and hyperlipidemia. An echo in 2022 noted with a mean gradient of 28.2 mmHg. The updated transthoracic echocardiogram on 02/12/25 showed LVEF 55-60%, moderate eccentric LVH, and severe calcific with peak/mean gradients 95/64 mmHg; BARBARA could not be measured on that study. Cardiac catheterization reportedly demonstrated no significant coronary disease within bypass grafts (official report pending). We will proceed with urgent outpatient TAVR planning as above. Review of Systems Constitutional: Negative for activity change, chills, diaphoresis, fatigue and fever. HENT: Negative for nosebleeds and trouble swallowing. Eyes: Negative for discharge and visual disturbance. Respiratory: Positive for shortness of breath. Negative for apnea, cough, chest tightness and wheezing. Cardiovascular: Positive for chest pain. Negative for palpitations and leg swelling. Gastrointestinal: Negative for abdominal distention, abdominal pain, blood in stool, diarrhea, nausea and vomiting. Endocrine: Negative for cold intolerance and heat intolerance. Genitourinary: Negative for hematuria. Musculoskeletal: Negative for gait problem and myalgias. Skin: Negative for color change and rash. Neurological: Negative for dizziness, seizures, syncope, facial asymmetry, speech difficulty, weakness, light-headedness, numbness and headaches. Hematological: Does not bruise/bleed easily. Psychiatric/Behavioral: Negative for dysphoric mood. [Allergies] [Allergies] Allergen Reactions Lisinopril Cough [Current Medications] [Current Medications] Current Outpatient Medications: aspirin 81 MG EC tablet, Take 81 mg by mouth daily., Disp: , Rfl: atorvastatin (Lipitor) 40 MG tablet, Take 40 mg by mouth daily., Disp: , Rfl: carvedilol (Coreg) 25 MG tablet, Take 25 mg by mouth 2 times daily (with meals)., Disp: , Rfl: chlorthalidone (Hygroton) 25 MG tablet, Take 25 mg by mouth daily., Disp: , Rfl: dulaglutide (Trulicity) 0.75 MG/0.5ML, Inject 0.75 mg under the skin 1 (one) time per week., Disp: , Rfl: empagliflozin (Jardiance) 25 MG, Take 25 mg by mouth daily., Disp: , Rfl: ezetimibe (Zetia) 10 MG tablet, Take 10 mg by mouth daily., Disp: , Rfl: insulin glargine (Lantus) 100 UNIT/ML injection, Inject 35 Units under the skin every morning., Disp: , Rfl: isosorbide mononitrate ER (Imdur) 30 MG 24 hr tablet, Take 30 mg by mouth daily. Do not crush or chew., Disp: , Rfl: minoxidil (Loniten) 2.5 MG tablet, Take 2.5 mg by mouth daily., Disp: , Rfl: [Medical History] [Medical History] Past Medical History Diagnosis Date (aortic stenosis) CAD (coronary artery disease) Claudication of both lower extremities (HCC) DDD (degenerative disc disease), cervical HLD (hyperlipidemia) HTN (hypertension) Spinal stenosis T2DM (type 2 diabetes mellitus) (HCC) Social History Tobacco Use Smoking status: Former Current packs/day: 0.00 Types: Cigarettes Quit date: 1997 Years since quittin.6 Smokeless tobacco: Never Substance Use Topics Alcohol use: Not Currently [Surgical History] [Surgical History] Past Surgical History Procedure Laterality Date CORONARY ARTERY BYPASS GRAFT QUAD LUMBAR LAMINECTOMY [Family History] [Family History] Problem Relation Name Age of Onset Heart disease Sister Objective Vitals There were no vitals filed for this visit. Physical Exam Vitals reviewed. Constitutional: Appearance: Normal appearance. He is not ill-appearing. HENT: Head: Normocephalic and atraumatic. Eyes: Extraocular Movements: Extraocular movements intact. Pupils: Pupils are equal, round, and reactive to light. Cardiovascular: Rate and Rhythm: Normal rate and regular rhythm. Heart sounds: Murmur heard. No friction rub. No gallop. Pulmonary: Effort: No respiratory distress. Breath sounds: No stridor. Abdominal: General: Abdomen is flat. Bowel sounds are normal. There is no distension. Palpations: Abdomen is soft. There is no mass. Tenderness: There is no abdominal tenderness. Musculoskeletal: General: Normal range of motion. Skin: General: Skin is warm and dry. Neurological: General: No focal deficit present. Mental Status: He is alert and oriented to person, place, and time. Mental status is at baseline. Psychiatric: Mood and Affect: Mood normal. Behavior: Behavior normal. Data Reviewed and Summarized No results found for: EFBP, PLVEF, LVEFPHYS, LVEF2D, EF Review of tests/labs done/ordered within my specialty: EKG in office: Review of tests/labs done/ordered outside my specialty: Independent interpretation of tests Cosigned by Celestine Alvarez MD at 03/28/2025 3:22 PM EDT [facility] Work Phone: 03-29-2025 Note H&P reviewed. The pa rosmery was examined and there are no changes to the H&P. [facility] 03-29-2025 History and physical note H&P reviewed. The patient was examined and there are no changes to the H&P. Source Note - PAULINA Adams CNP - 03/26/2025 9:54 AM EDT Images from the original note were not included. Celestine Alvarez MD Cardiology Pre-operative cardiovascular examination +1 more Dx New Patient Cardiac Valve Problem Reason for Visit Progress Notes Celestine Alvarez MD (Physician) Cardiology Expand All Collapse All [facility] CARDIOLOGY - [place] [address] [place] [address] Dept: [phone] Dept Visit type: New : 1950 Reason for Visit: Severe Aortic Stenosis Assessment and Plan Assessment: 74-year-old man with prior CABG (2017), CKD4, HTN, and hyperlipidemia with clear progression to severe calcific aortic stenosis. His 2022 echo showed a mean gradient 28 mmHg; the 02/12/25 study now shows preserved LVEF (55-60%), moderate eccentric LVH, and very high gradients (peak/mean 95/64 mmHg). BARBARA could not be measured. Reported cath shows no significant disease within bypass grafts (final report pending). The hemodynamics are consistent with severe--likely very severe--aortic stenosis (peak gradient ~95 mmHg corresponds to Vmax ?4.9 m/s). Given prior CABG and CKD, a transcatheter approach is favored pending anatomic confirmation. Plan: Urgent outpatient TAVR workup: ECG-gated CTA (TAVR protocol) for annular sizing, coronary heights, valve morphology, and iliofemoral access Heart-team review: multidisciplinary discussion (interventional + CT surgery + imaging) to confirm TAVR as preferred strategy given prior CABG and comorbidities. Coronary strategy: confirm cath findings once official report posts; no PCI anticipated if grafts are patent and no ischemic territory is identified. CKD precautions: contrast-sparing protocol for CTA/TAVR; periprocedural hydration as appropriate; hold metformin on contrast days and 48 hours after with creatinine recheck if applicable. Subjective New referral from Dr. Mary for evaluation of aortic stenosis. Past history includes CABG in 2017, CKD, hypertension, and hyperlipidemia. An echo in 2022 noted with a mean gradient of 28.2 mmHg. The updated transthoracic echocardiogram on 02/12/25 showed LVEF 55-60%, moderate eccentric LVH, and severe calcific with peak/mean gradients 95/64 mmHg; BARBARA could not be measured on that study. Cardiac catheterization reportedly demonstrated no significant coronary disease within bypass grafts (official report pending). We will proceed with urgent outpatient TAVR planning as above. Review of Systems Constitutional: Negative for activity change, chills, diaphoresis, fatigue and fever. HENT: Negative for nosebleeds and trouble swallowing. Eyes: Negative for discharge and visual disturbance. Respiratory: Positive for shortness of breath. Negative for apnea, cough, chest tightness and wheezing. Cardiovascular: Positive for chest pain. Negative for palpitations and leg swelling. Gastrointestinal: Negative for abdominal distention, abdominal pain, blood in stool, diarrhea, nausea and vomiting. Endocrine: Negative for cold intolerance and heat intolerance. Genitourinary: Negative for hematuria. Musculoskeletal: Negative for gait problem and myalgias. Skin: Negative for color change and rash. Neurological: Negative for dizziness, seizures, syncope, facial asymmetry, speech difficulty, weakness, light-headedness, numbness and headaches. Hematological: Does not bruise/bleed easily. Psychiatric/Behavioral: Negative for dysphoric mood. [Allergies] [Allergies] Allergen Reactions Lisinopril Cough [Current Medications] [Current Medications] Current Outpatient Medications: aspirin 81 MG EC tablet, Take 81 mg by mouth daily., Disp: , Rfl: atorvastatin (Lipitor) 40 MG tablet, Take 40 mg by mouth daily., Disp: , Rfl: carvedilol (Coreg) 25 MG tablet, Take 25 mg by mouth 2 times daily (with meals)., Disp: , Rfl: chlorthalidone (Hygroton) 25 MG tablet, Take 25 mg by mouth daily., Disp: , Rfl: dulaglutide (Trulicity) 0.75 MG/0.5ML, Inject 0.75 mg under the skin 1 (one) time per week., Disp: , Rfl: empagliflozin (Jardiance) 25 MG, Take 25 mg by mouth daily., Disp: , Rfl: ezetimibe (Zetia) 10 MG tablet, Take 10 mg by mouth daily., Disp: , Rfl: insulin glargine (Lantus) 100 UNIT/ML injection, Inject 35 Units under the skin every morning., Disp: , Rfl: isosorbide mononitrate ER (Imdur) 30 MG 24 hr tablet, Take 30 mg by mouth daily. Do not crush or chew., Disp: , Rfl: minoxidil (Loniten) 2.5 MG tablet, Take 2.5 mg by mouth daily., Disp: , Rfl: [Medical History] [Medical History] Past Medical History Diagnosis Date (aortic stenosis) CAD (coronary artery disease) Claudication of both lower extremities (HCC) DDD (degenerative disc disease), cervical HLD (hyperlipidemia) HTN (hypertension) Spinal stenosis T2DM (type 2 diabetes mellitus) (HCC) Social History Tobacco Use Smoking status: Former Current packs/day: 0.00 Types: Cigarettes Quit date: 1997 Years since quittin.6 Smokeless tobacco: Never Substance Use Topics Alcohol use: Not Currently [Surgical History] [Surgical History] Past Surgical History Procedure Laterality Date CORONARY ARTERY BYPASS GRAFT QUAD LUMBAR LAMINECTOMY [Family History] [Family History] Problem Relation Name Age of Onset Heart disease Sister Objective Vitals There were no vitals filed for this visit. Physical Exam Vitals reviewed. Constitutional: Appearance: Normal appearance. He is not ill-appearing. HENT: Head: Normocephalic and atraumatic. Eyes: Extraocular Movements: Extraocular movements intact. Pupils: Pupils are equal, round, and reactive to light. Cardiovascular: Rate and Rhythm: Normal rate and regular rhythm. Heart sounds: Murmur heard. No friction rub. No gallop. Pulmonary: Effort: No respiratory distress. Breath sounds: No stridor. Abdominal: General: Abdomen is flat. Bowel sounds are normal. There is no distension. Palpations: Abdomen is soft. There is no mass. Tenderness: There is no abdominal tenderness. Musculoskeletal: General: Normal range of motion. Skin: General: Skin is warm and dry. Neurological: General: No focal deficit present. Mental Status: He is alert and oriented to person, place, and time. Mental status is at baseline. Psychiatric: Mood and Affect: Mood normal. Behavior: Behavior normal. Data Reviewed and Summarized No results found for: EFBP, PLVEF, LVEFPHYS, LVEF2D, EF Review of tests/labs done/ordered within my specialty: EKG in office: Review of tests/labs done/ordered outside my specialty: Independent interpretation of tests Cosigned by Celestine Alvarez MD at 03/28/2025 3:22 PM EDT documented in this encounter [facility] 03-26-2025 Note PC to patient. Patie nt is agreeable to 12:15 procedure time and 10:15 arrival time. [facility] 03-26-2025 Note Celestine Alvarez MD Cardiology Pre-operative cardiovascular examination +1 more Dx New Patient Cardiac Valve Problem Reason for Visit Progress Notes Celestine Alvarez MD (Physician) Cardiology Expand All Collapse All [facility] CARDIOLOGY - [place] [address] [place] [address] Dept: [phone] Dept Visit type: New : 1950 Reason for Visit: Severe Aortic Stenosis Assessment and Plan Assessment: 74-year-old man with prior CABG (2016), CKD4, HTN, and hyperlipidemia with clear progression to severe calcific aortic stenosis. His 2022 echo showed a mean gradient 28 mmHg; the 02/12/25 study now shows preserved LVEF (55-60%), moderate eccentric LVH, and very high gradients (peak/mean 95/64 mmHg). BARBARA could not be measured. Reported cath shows no significant disease within bypass grafts (final report pending). The hemodynamics are consistent with severe--likely very severe--aortic stenosis (peak gradient ~95 mmHg corresponds to Vmax ?4.9 m/s). Given prior CABG and CKD, a transcatheter approach is favored pending anatomic confirmation. Plan: Urgent outpatient TAVR workup: ECG-gated CTA (TAVR protocol) for annular sizing, coronary heights, valve morphology, and iliofemoral access Heart-team review: multidisciplinary discussion (interventional + CT surgery + imaging) to confirm TAVR as preferred strategy given prior CABG and comorbidities. Coronary strategy: confirm cath findings once official report posts; no PCI anticipated if grafts are patent and no ischemic territory is identified. CKD precautions: contrast-sparing protocol for CTA/TAVR; periprocedural hydration as appropriate; hold metformin on contrast days and 48 hours after with creatinine recheck if applicable. Subjective New referral from Dr. Mary for evaluation of aortic stenosis. Past history includes CABG in 2017, CKD, hypertension, and hyperlipidemia. An echo in 2022 noted with a mean gradient of 28.2 mmHg. The updated transthoracic echocardiogram on 02/12/25 showed LVEF 55-60%, moderate eccentric LVH, and severe calcific with peak/mean gradients 95/64 mmHg; BARBARA could not be measured on that study. Cardiac catheterization reportedly demonstrated no significant coronary disease within bypass grafts (official report pending). We will proceed with urgent outpatient TAVR planning as above. Review of Systems Constitutional: Negative for activity change, chills, diaphoresis, fatigue and fever. HENT: Negative for nosebleeds and trouble swallowing. Eyes: Negative for discharge and visual disturbance. Respiratory: Positive for shortness of breath. Negative for apnea, cough, chest tightness and wheezing. Cardiovascular: Positive for chest pain. Negative for palpitations and leg swelling. Gastrointestinal: Negative for abdominal distention, abdominal pain, blood in stool, diarrhea, nausea and vomiting. Endocrine: Negative for cold intolerance and heat intolerance. Genitourinary: Negative for hematuria. Musculoskeletal: Negative for gait problem and myalgias. Skin: Negative for color change and rash. Neurological: Negative for dizziness, seizures, syncope, facial asymmetry, speech difficulty, weakness, light-headedness, numbness and headaches. Hematological: Does not bruise/bleed easily. Psychiatric/Behavioral: Negative for dysphoric mood. [Allergies] [Allergies] Allergen Reactions Lisinopril Cough [Current Medications] [Current Medications] Current Outpatient Medications: aspirin 81 MG EC tablet, Take 81 mg by mouth daily., Disp: , Rfl: atorvastatin (Lipitor) 40 MG tablet, Take 40 mg by mouth daily., Disp: , Rfl: carvedilol (Coreg) 25 MG tablet, Take 25 mg by mouth 2 times daily (with meals)., Disp: , Rfl: chlorthalidone (Hygroton) 25 MG tablet, Take 25 mg by mouth daily., Disp: , Rfl: dulaglutide (Trulicity) 0.75 MG/0.5ML, Inject 0.75 mg under the skin 1 (one) time per week., Disp: , Rfl: empagliflozin (Jardiance) 25 MG, Take 25 mg by mouth daily., Disp: , Rfl: ezetimibe (Zetia) 10 MG tablet, Take 10 mg by mouth daily., Disp: , Rfl: insulin glargine (Lantus) 100 UNIT/ML injection, Inject 35 Units under the skin every morning., Disp: , Rfl: isosorbide mononitrate ER (Imdur) 30 MG 24 hr tablet, Take 30 mg by mouth daily. Do not crush or chew., Disp: , Rfl: minoxidil (Loniten) 2.5 MG tablet, Take 2.5 mg by mouth daily., Disp: , Rfl: [Medical History] [Medical History] Past Medical History Diagnosis Date (aortic stenosis) CAD (coronary artery disease) Claudication of both lower extremities (HCC) DDD (degenerative disc disease), cervical HLD (hyperlipidemia) HTN (hypertension) Spinal stenosis T2DM (type 2 diabetes mellitus) ([facility]) Social History Tobacco Use Smoking status: Former Current packs/day: 0.00 Types: Cigarettes Quit date: 1997 Years since quittin.6 Smokeless tobacco: Never Substance Use Topics Alcohol use: Not Cur (more content not included)... [facility] 03-26-2025 Note Celestine Alvarez MD Cardiology Pre-operative cardiovascular examination +1 more Dx New Patient Cardiac Valve Problem Reason for Visit Progress Notes Celestine Alvarez MD (Physician) Cardiology Expand All Collapse All [facility] CARDIOLOG[facility] - [place] [address] [facility] [address] Dept: [phone] Dept Visit type: New : 1950 Reason for Visit: Severe Aortic Stenosis Assessment and Plan Assessment: 74-year-old man with prior CABG (2016), CKD4, HTN, and hyperlipidemia with clear progression to severe calcific aortic stenosis. His 2022 echo showed a mean gradient 28 mmHg; the 02/12/25 study now shows preserved LVEF (55-60%), moderate eccentric LVH, and very high gradients (peak/mean 95/64 mmHg). BARBARA could not be measured. Reported cath shows no significant disease within bypass grafts (final report pending). The hemodynamics are consistent with severe--likely very severe--aortic stenosis (peak gradient ~95 mmHg corresponds to Vmax ?4.9 m/s). Given prior CABG and CKD, a transcatheter approach is favored pending anatomic confirmation. Plan: Urgent outpatient TAVR workup: ECG-gated CTA (TAVR protocol) for annular sizing, coronary heights, valve morphology, and iliofemoral access Heart-team review: multidisciplinary discussion (interventional + CT surgery + imaging) to confirm TAVR as preferred strategy given prior CABG and comorbidities. Coronary strategy: confirm cath findings once official report posts; no PCI anticipated if grafts are patent and no ischemic territory is identified. CKD precautions: contrast-sparing protocol for CTA/TAVR; periprocedural hydration as appropriate; hold metformin on contrast days and 48 hours after with creatinine recheck if applicable. Subjective New referral from Dr. Mary for evaluation of aortic stenosis. Past history includes CABG in 2017, CKD, hypertension, and hyperlipidemia. An echo in 2022 noted with a mean gradient of 28.2 mmHg. The updated transthoracic echocardiogram on 02/12/25 showed LVEF 55-60%, moderate eccentric LVH, and severe calcific with peak/mean gradients 95/64 mmHg; BARBARA could not be measured on that study. Cardiac catheterization reportedly demonstrated no significant coronary disease within bypass grafts (official report pending). We will proceed with urgent outpatient TAVR planning as above. Review of Systems Constitutional: Negative for activity change, chills, diaphoresis, fatigue and fever. HENT: Negative for nosebleeds and trouble swallowing. Eyes: Negative for discharge and visual disturbance. Respiratory: Positive for shortness of breath. Negative for apnea, cough, chest tightness and wheezing. Cardiovascular: Positive for chest pain. Negative for palpitations and leg swelling. Gastrointestinal: Negative for abdominal distention, abdominal pain, blood in stool, diarrhea, nausea and vomiting. Endocrine: Negative for cold intolerance and heat intolerance. Genitourinary: Negative for hematuria. Musculoskeletal: Negative for gait problem and myalgias. Skin: Negative for color change and rash. Neurological: Negative for dizziness, seizures, syncope, facial asymmetry, speech difficulty, weakness, light-headedness, numbness and headaches. Hematological: Does not bruise/bleed easily. Psychiatric/Behavioral: Negative for dysphoric mood. [Allergies] [Allergies] Allergen Reactions Lisinopril Cough [Current Medications] [Current Medications] Current Outpatient Medications: aspirin 81 MG EC tablet, Take 81 mg by mouth daily., Disp: , Rfl: atorvastatin (Lipitor) 40 MG tablet, Take 40 mg by mouth daily., Disp: , Rfl: carvedilol (Coreg) 25 MG tablet, Take 25 mg by mouth 2 times daily (with meals)., Disp: , Rfl: chlorthalidone (Hygroton) 25 MG tablet, Take 25 mg by mouth daily., Disp: , Rfl: dulaglutide (Trulicity) 0.75 MG/0.5ML, Inject 0.75 mg under the skin 1 (one) time per week., Disp: , Rfl: empagliflozin (Jardiance) 25 MG, Take 25 mg by mouth daily., Disp: , Rfl: ezetimibe (Zetia) 10 MG tablet, Take 10 mg by mouth daily., Disp: , Rfl: insulin glargine (Lantus) 100 UNIT/ML injection, Inject 35 Units under the skin every morning., Disp: , Rfl: isosorbide mononitrate ER (Imdur) 30 MG 24 hr tablet, Take 30 mg by mouth daily. Do not crush or chew., Disp: , Rfl: minoxidil (Loniten) 2.5 MG tablet, Take 2.5 mg by mouth daily., Disp: , Rfl: [Medical History] [Medical History] Past Medical History Diagnosis Date (aortic stenosis) CAD (coronary artery disease) Claudication of both lower extremities (HCC) DDD (degenerative disc disease), cervical HLD (hyperlipidemia) HTN (hypertension) Spinal stenosis T2DM (type 2 diabetes mellitus) (HCC) Social History Tobacco Use Smoking status: Former Current packs/day: 0.00 Types: Cigarettes Quit date: 1997 Years since quittin.6 Smokeless tobacco: Never Substance Use Topics Alcohol use: Not Cur (more content not included)... [facility] 03-25-2025 Note Pre TAVR phone call placed. Reviewed, procedure, instructions and meds. Pt verbalizes understanding. Pt knows to call [phone] with any concerns. [employer] notified to complete prep for proc Diagnosis: Aortic Stenosis Procedure being done: TAVR Date/time of procedure: 02/26/25 at 12:45 pm Surgeon: Dr. Alvarez 2nd surgeon: Dr. Amaya Admission type: To be admitted Anesthesia: MAC Completed: BMP, CBC, EKG, CTA, H&P Date completed: 03/19/25 Additional orders BGT, T&S AM of procedure [facility] 03-25-2025 Note Patient: aSm yates Procedure Information Date/Time: 03/29/25 1245 Procedures: TRANSCATHETER AORTIC VALVE REPLACEMENT, TRANSTHORACIC ECHOCARDIOGRAM TRANSCATHETER AORTIC VALVE REPLACEMENT (TAVR) - OR (Chest) Location: [facility] Operating Room Surgeons: Celestine Alvarez MD; Car Amaya MD Relevant Problems Cardio (+) CAD (coronary artery disease) (+) HLD (hyperlipidemia) (+) Nonrheumatic aortic valve stenosis (+) Severe aortic stenosis Endo (+) Diabetes mellitus type II, non insulin dependent (HCC) /Renal (+) CKD (chronic kidney disease) (+) Renal failure Past Medical History: Past Medical History: No date: (aortic stenosis) No date: CAD (coronary artery disease) No date: Claudication of both lower extremities (HCC) No date: DDD (degenerative disc disease), cervical No date: HLD (hyperlipidemia) No date: HTN (hypertension) No date: Spinal stenosis No date: T2DM (type 2 diabetes mellitus) ([facility]) Past Surgical History: Past Surgical History: No date: CORONARY ARTERY BYPASS GRAFT Comment: QUAD No date: LUMBAR LAMINECTOMY Social History: TOBACCO: reports that he quit smoking about 27 years ago. His smoking use included cigarettes. He has never used smokeless tobacco. ETOH: reports that he does not currently use alcohol. Social History Substance and Sexual Activity Drug Use Never Family History: Family History[1] Screening: unknown Clinical information reviewed: Physical Exam Airway Mallampati: III TM distance: >3 FB Neck ROM: full Mouth Open: normalendotracheal tube not in place Cardiovascular Dental (+) Poor dentition normal Pulmonary Abdominal Anesthesia Plan Any family history or previous problems with anesthesia no We discussed risks, benefits, alternatives and likelihood of success with the Patient. ASA 4 MAC and TIVA Any family history or previous problems with anesthesia no The patient is not a current smoker. patient is NPO appropriate Anesthesia Minor Considerations S/p CABG 2017 Hearing aids Continuous Glucose monitor-Left arm Blood Glucose 152 HARRY Screening Labs: Lab Results Component Value Date WBC 7.8 03/19/2025 HGB 11.5 (L) 03/19/2025 HCT 34.3 (L) 03/19/2025 MCV 89.8 03/19/2025 PLT 176 03/19/2025 Lab Results Component Value Date NA 140 03/19/2025 K 4.6 03/19/2025 CL 105 03/19/2025 CO2 24 03/19/2025 BUN 67 (H) 03/19/2025 CREATININE 3.17 (H) 03/19/2025 GLUCOSE 142 (H) 03/19/2025 CALCIUM 9.4 03/19/2025 EGFR 19.7 (L) 03/19/2025 No echocardiogram results found for the past 14 days ECHO: 02/12/25 LVEF 55-60%, moderate eccentric left ventricular hypertrophy, and severe calcific aortic valve stenosis with peak/mean gradients 95/64 mmHg. BARBARA was unable to be measured. Assessment: 74-year-old man with prior CABG (2017), CKD4, HTN, and hyperlipidemia with clear progression to severe calcific aortic stenosis. His 2022 echo showed a mean gradient 28 mmHg; the 02/12/25 study now shows preserved LVEF (55-60%), moderate eccentric LVH, and very high gradients (peak/mean 95/64 mmHg). BARBARA could not be measured. Reported cath shows no significant disease within bypass grafts (final report pending). The hemodynamics are consistent with severe--likely very severe--aortic stenosis (peak gradient ~95 mmHg corresponds to Vmax ?4.9 m/s). Given prior CABG and CKD, a transcatheter approach is favored pending anatomic confirmation. Plan: 03/09/25 ECG 12-LEAD (Preliminary) Sinus Bradycardia -First degree A-V block Rocío = 232 -Nonspecific ST depression + Negative T-waves -Nondiagnostic -Possible Lateral ischemia. ABNORMAL Equipment Requests: Additional Equipment Requests [1] Family History Problem Relation Name Age of Onset Heart disease Sister [facility] 03-12-2025 Note TAVR procedure, inst ructions reviewed with pt and spouse. Patient scheduled for TAVR on 03/29/25 at 12:45 pm Will report to [facility] Same Day Surgery by 10:45 am Can park in the [facility] Parking Deck or use [employer] parking at the [facility] entrance Plan on overnight stay in the hospital Will not be able to drive for 1 week after procedure Will receive moderate sedation through the IV, will be relaxed but awake during the procedure Nothing to eat or drink after midnight Instructed to take morning medications including ASA/Plavix as prescribed with small sip of water EXCEPT to HOLD zetia, atorvastatin, insulin, jardiance x72 hours, chlorthalidone morning of surgery Will call with any questions/concerns Pre-op testing done 03/19/25 Patient/family verbalized understanding. [facility] 03-11-2025 Note Dx: Procedure: TAVR Date/Time: 03/29/25 at 12:45pm Surgeon: Eleanor Location: [facility] Admission: TBD CTA TAVR with hydration scheduled for 03/19 at 9am TAVR scheduled, No auth required, Medicare primary, Case on GOSS, PB and VC calendars [facility] 03-09-2025 History of Presen t illness Narrative Images from the original note were not included. [facility] Medical Group: Cardiothoracic Surgery Multidisciplinary Heart Valve Clinic Date: 03/09/25 Patient:aSm Vidales 1950 74 y.o. male [id number] Subjective: HPI: Sam Vidales [address] Mary is being evaluated for aortic valve stenosis. Echocardiogram completed on 02/12/25 showed severe aortic valve stenosis with peak/mean gradients 95/64 mm Hg. Per note, patient with past medical history significant for CAD s/p CABG 2016, CKD, HTN, aortic valve stenosis, hyperlipidemia. On echo in 2022, pt was noted to have aortic valve stenosis with mean gradient 28.2 mmHg. An updated echo was obtained 02/12/25 which demonstrated LVEF 55-60%, moderate eccentric left ventricular hypertrophy, and severe calcific aortic valve stenosis with peak/mean gradients 95/64 mmHg. BARBARA was unable to be measured. Cardiac cath reportedly showed no significant coronary artery disease within bypass grafts. Official report pending. Past Medical History Diagnosis Date (aortic stenosis) CAD (coronary artery disease) Claudication of both lower extremities (HCC) DDD (degenerative disc disease), cervical HLD (hyperlipidemia) HTN (hypertension) Spinal stenosis T2DM (type 2 diabetes mellitus) (HCC) Blood thinner - none Transthoracic Echocardiogram 02/12/25 Review of Systems Constitutional: Negative for activity change, chills, diaphoresis, fatigue and fever. HENT: Negative for nosebleeds and trouble swallowing. Eyes: Negative for discharge and visual disturbance. Respiratory: Positive for shortness of breath. Negative for apnea, cough, chest tightness and wheezing. Cardiovascular: Positive for chest pain. Negative for palpitations and leg swelling. Gastrointestinal: Negative for abdominal distention, abdominal pain, blood in stool, diarrhea, nausea and vomiting. Endocrine: Negative for cold intolerance and heat intolerance. Genitourinary: Negative for hematuria. Musculoskeletal: Negative for gait problem and myalgias. Skin: Negative for color change and rash. Neurological: Negative for dizziness, seizures, syncope, facial asymmetry, speech difficulty, weakness, light-headedness, numbness and headaches. Hematological: Does not bruise/bleed easily. Psychiatric/Behavioral: Negative for dysphoric mood. Allergies: Lisinopril Past Medical History: has a past medical history of (aortic stenosis), CAD (coronary artery disease), Claudication of both lower extremities (HCC), DDD (degenerative disc disease), cervical, HLD (hyperlipidemia), HTN (hypertension), Spinal stenosis, and T2DM (type 2 diabetes mellitus) (HCC). Past Surgical History: has a past surgical history that includes Lumbar laminectomy and Coronary artery bypass graft. Social History: reports that he quit smoking about 27 years ago. His smoking use included cigarettes. He has never used smokeless tobacco. He reports that he does not currently use alcohol. He reports that he does not use drugs. Family History: family history includes Heart disease in his sister. Medications: Prior to Admission medications Medication Sig Start Date End Date Taking? Authorizing Provider aspirin 81 MG EC tablet Take 81 mg by mouth daily. Historical Provider, atorvastatin (Lipitor) 40 MG tablet Take 40 mg by mouth daily. Historical Provider, carvedilol (Coreg) 25 MG tablet Take 25 mg by mouth 2 times daily (with meals). Historical Provider, chlorthalidone (Hygroton) 25 MG tablet Take 25 mg by mouth daily. Historical Provider, dulaglutide (Trulicity) 0.75 MG/0.5ML Inject 0.75 mg under the skin 1 (one) time per week. Historical Provider, empagliflozin (Jardiance) 25 MG Take 25 mg by mouth daily. Historical Provider, ezetimibe (Zetia) 10 MG tablet Take 10 mg by mouth daily. Historical Provider, insulin glargine (Lantus) 100 UNIT/ML injection Inject 35 Units under the skin every morning. Historical Provider, isosorbide mononitrate ER (Imdur) 30 MG 24 hr tablet Take 30 mg by mouth daily. Do not crush or chew. Historical Provider, minoxidil (Loniten) 2.5 MG tablet Take 2.5 mg by mouth daily. Historical Provider, Objective: BP 90/54 (BP Location: Left arm, Patient Position: Sitting, BP Cuff Size: Adult) Pulse 56 Ht 5' 9 (1.753 m) Wt 160 lb 0.9 oz (72.6 kg) SpO2 97% BMI 23.64 kg/m @[id number]@ Physical Exam Constitutional: General: He is not in acute distress. Appearance: Normal appearance. He is normal weight. He is not ill-appearing, toxic-appearing or diaphoretic. HENT: Head: Normocephalic. Eyes: Extraocular Movements: Extraocular movements intact. Cardiovascular: Rate and Rhythm: Normal rate. Heart sounds: Murmur heard. No friction rub. No gallop. Pulmonary: Effort: Pulmonary effort is normal. Breath sounds: Normal breath sounds. Musculoskeletal: Cervical back: Normal range of motion. Skin: General: Skin is warm and dry. Neurological: General: No focal deficit present. Mental Status: He is alert. Psychiatric: Mood and Affect: Mood normal. Behavior: Behavior normal. Thought Content: Thought content normal. Judgment: Judgment normal. Labs: Reviewed in EMR No results found for: WBC, HGB, HCT, MCV, PLT No results found for: NA, K, CL, CO2, BUN, CREATININE, GLUCOSE, CALCIUM Diagnostics: Reviewed in EMR Assessment/Plan: Severe, symptomatic, critical aortic stenosis CTA TAVR protocol in anticipation of TAVR. RBA discussed. Stage IV CKD - minimize contrast for testing. Potential for HD discussed with patient. Patient consents to surgical bailout: [x] Yes [] No If No why: Disclaimers: INFORMED CONSENT: The nature and purpose of the proposed treatment and/or procedure have been discussed. The risks and benefits of the proposed treatment or procedures have been reviewed. Alternatives have been reviewed in addition to the risks and benefits of not receiving treatments or undergoing procedures. Pursuant to this discussion, the patient agrees to undergo the proposed treatment or procedure. Captured images seen in this note are not a substitute for a comprehensive interpretation of the entire data set as reflected by the interpreting physician with regard to radiology, echocardiography, and other diagnostic images. documented in this encounter [facility] 03-09-2025 History of Presen t illness Narrative Images from the original note were not included. [facility] - [address] [address] Dept: [phone] Dept Visit type: New : 1950 Reason for Visit: Severe Aortic Stenosis Assessment and Plan Assessment: 74-year-old man with prior CABG (2017), CKD4, HTN, and hyperlipidemia with clear progression to severe calcific aortic stenosis. His 2022 echo showed a mean gradient 28 mmHg; the 02/12/25 study now shows preserved LVEF (55-60%), moderate eccentric LVH, and very high gradients (peak/mean 95/64 mmHg). BARBARA could not be measured. Reported cath shows no significant disease within bypass grafts (final report pending). The hemodynamics are consistent with severe--likely very severe--aortic stenosis (peak gradient ~95 mmHg corresponds to Vmax ?4.9 m/s). Given prior CABG and CKD, a transcatheter approach is favored pending anatomic confirmation. Plan: Urgent outpatient TAVR workup: ECG-gated CTA (TAVR protocol) for annular sizing, coronary heights, valve morphology, and iliofemoral access Heart-team review: multidisciplinary discussion (interventional + CT surgery + imaging) to confirm TAVR as preferred strategy given prior CABG and comorbidities. Coronary strategy: confirm cath findings once official report posts; no PCI anticipated if grafts are patent and no ischemic territory is identified. CKD precautions: contrast-sparing protocol for CTA/TAVR; periprocedural hydration as appropriate; hold metformin on contrast days and 48 hours after with creatinine recheck if applicable. Subjective New referral from Dr. Mary for evaluation of aortic stenosis. Past history includes CABG in 2017, CKD, hypertension, and hyperlipidemia. An echo in 2022 noted with a mean gradient of 28.2 mmHg. The updated transthoracic echocardiogram on 02/12/25 showed LVEF 55-60%, moderate eccentric LVH, and severe calcific with peak/mean gradients 95/64 mmHg; BARBARA could not be measured on that study. Cardiac catheterization reportedly demonstrated no significant coronary disease within bypass grafts (official report pending). We will proceed with urgent outpatient TAVR planning as above. Review of Systems Constitutional: Negative for activity change, chills, diaphoresis, fatigue and fever. HENT: Negative for nosebleeds and trouble swallowing. Eyes: Negative for discharge and visual disturbance. Respiratory: Positive for shortness of breath. Negative for apnea, cough, chest tightness and wheezing. Cardiovascular: Positive for chest pain. Negative for palpitations and leg swelling. Gastrointestinal: Negative for abdominal distention, abdominal pain, blood in stool, diarrhea, nausea and vomiting. Endocrine: Negative for cold intolerance and heat intolerance. Genitourinary: Negative for hematuria. Musculoskeletal: Negative for gait problem and myalgias. Skin: Negative for color change and rash. Neurological: Negative for dizziness, seizures, syncope, facial asymmetry, speech difficulty, weakness, light-headedness, numbness and headaches. Hematological: Does not bruise/bleed easily. Psychiatric/Behavioral: Negative for dysphoric mood. Allergies[1] Current Medications[2] Medical History[3] Social History Tobacco Use Smoking status: Former Current packs/day: 0.00 Types: Cigarettes Quit date: 1997 Years since quittin.6 Smokeless tobacco: Never Substance Use Topics Alcohol use: Not Currently Surgical History[4] Family History[5] Objective There were no vitals filed for this visit. Physical Exam Vitals reviewed. Constitutional: Appearance: Normal appearance. He is not ill-appearing. HENT: Head: Normocephalic and atraumatic. Eyes: Extraocular Movements: Extraocular movements intact. Pupils: Pupils are equal, round, and reactive to light. Cardiovascular: Rate and Rhythm: Normal rate and regular rhythm. Heart sounds: Murmur heard. No friction rub. No gallop. Pulmonary: Effort: No respiratory distress. Breath sounds: No stridor. Abdominal: General: Abdomen is flat. Bowel sounds are normal. There is no distension. Palpations: Abdomen is soft. There is no mass. Tenderness: There is no abdominal tenderness. Musculoskeletal: General: Normal range of motion. Skin: General: Skin is warm and dry. Neurological: General: No focal deficit present. Mental Status: He is alert and oriented to person, place, and time. Mental status is at baseline. Psychiatric: Mood and Affect: Mood normal. Behavior: Behavior normal. Data Reviewed and Summarized No results found for: EFBP, PLVEF, LVEFPHYS, LVEF2D, EF Review of tests/labs done/ordered within my specialty: EKG in office: Review of tests/labs done/ordered outside my specialty: Independent interpretation of tests: Gwen Mendez RN NYHA Class (1-4): 2 STS score: 1.19% 5 meter gait speed in seconds: Ao valve disease etiology (degenerative, rheumatic, endocarditis, other): degenerative [1] Allergies Allergen Reactions Lisinopril Cough [2] Current Outpatient Medications: aspirin 81 MG EC tablet, Take 81 mg by mouth daily., Disp: , Rfl: atorvastatin (Lipitor) 40 MG tablet, Take 40 mg by mouth daily., Disp: , Rfl: carvedilol (Coreg) 25 MG tablet, Take 25 mg by mouth 2 times daily (with meals)., Disp: , Rfl: chlorthalidone (Hygroton) 25 MG tablet, Take 25 mg by mouth daily., Disp: , Rfl: dulaglutide (Trulicity) 0.75 MG/0.5ML, Inject 0.75 mg under the skin 1 (one) time per week., Disp: , Rfl: empagliflozin (Jardiance) 25 MG, Take 25 mg by mouth daily., Disp: , Rfl: ezetimibe (Zetia) 10 MG tablet, Take 10 mg by mouth daily., Disp: , Rfl: insulin glargine (Lantus) 100 UNIT/ML injection, Inject 35 Units under the skin every morning., Disp: , Rfl: isosorbide mononitrate ER (Imdur) 30 MG 24 hr tablet, Take 30 mg by mouth daily. Do not crush or chew., Disp: , Rfl: minoxidil (Loniten) 2.5 MG tablet, Take 2.5 mg by mouth daily., Disp: , Rfl: [3] Past Medical History: Diagnosis Date (aortic stenosis) CAD (coronary artery disease) Claudication of both lower extremities (HCC) DDD (degenerative disc disease), cervical HLD (hyperlipidemia) HTN (hypertension) Spinal stenosis T2DM (type 2 diabetes mellitus) (HCC) [4] Past Surgical History: Procedure Laterality Date CORONARY ARTERY BYPASS GRAFT QUAD LUMBAR LAMINECTOMY [5] Family History Problem Relation Name Age of Onset Heart disease Sister documented in this encounter [facility] 02-25-2025 Discharge summary [facility] 02-25-2025 Discharge summary [facility] 02-25-2025 Note [facility] 02-25-2025 Hospital Discharg e instructions Additional Instructions Date of Discharge: 02/25/25 [facility] Work Phone: 02-24-2025 Consult note Note Date/Time February 24, 2025 6:28pm [facility] Medical Records Department [facility] [place] [address] Consultation - Nephrology 02/24/25 1823 MR#: [id number] Acct: [id number] Name: SAM VIDALES Rep #:[id number] : 1950 74 From: Sunshine vides MD PCP: [place] Hospital Status:ADM IN Location: [place] [address] Assessment & Plan Assessment/Plan (1) Chronic kidney disease: PLAN: # 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 Several fluctuations related to cardiorenal syndrome/fluid overload. Recently had a diagnostic angiogram which was okay. In the process of getting scheduled for TAVR. Presented with shortness of breath, improved with Lasix. Voiding okay. He will ultimately need TAVR surgery for symptomatic benefit. HPI Consult Data Date of Consult: 02/24/25 HPI Narrative Reason for Consultation: JUAN HPI Narrative: SAM VIDALES, is a 74 M who presents To the hospital with shortness of breath. Nephrology on consultation in view of CKD/JUAN. He is actually known to me fromrecent visit. Has CKD stage IIIb/IV. Has severe aortic stenosis. Was admittedrecently with similar complaints. Was supposed to follow-up with cardiology at [facility] for consideration of TAVR. Has a visit coming up with them in about 2 weeks. Presented with shortness of breath. Recent coronary angiogram was okay. Feels better today. [facility] Medical History Abnormal stress test Essential hypertension Claudication of lower extremity Non-rheumatic aortic stenosis Atherosclerosis of coronary artery of [place] heart without angina pectoris Hyperlipidemia Type 2 diabetes mellitus without complications DDD (degenerative disc disease), lumbar Spinal stenosis of lumbar region without neurogenic claudication Spondylosis of lumbosacral region without myelopathy or radiculopathy Spondylosis without myelopathy or radiculopathy, lumbar region Other spondylosis, lumbar region Other intervertebral disc displacement, lumbosacral region Other intervertebral disc degeneration, lumbar region Home Medications ?Medication ?Instructions ?Recorded ?Last Taken ?Type atorvastatin 40 mg tablet 40 mg PO QHS #30 tabs Unknown Rx aspirin 81 mg tablet,delayed 81 mg PO DAILY 06/14/21 U nknown History release (Adult Aspirin Regimen) ezetimibe 10 mg tablet (Zetia) 10 mg PO DAILY 10/09/21 Unknown History insulin glargine 100 unit/mL 15 unit subcut DAILY 10/27 Unknown History subcutaneous solution (Lantus U-100 Insulin) isosorbide mononitrate 30 mg 30 mg PO DAILY #30 tabs 0 01/05/22 Unknown Rx tablet,extended release 24 hr minoxidil 2.5 mg tablet 5 mg PO DAILY 04/30/22 Unkno wn History empagliflozin 25 mg tablet 12.5 mg PO DAILY 11/29/22 U nknown History (Jardiance) carvedilol 25 mg tablet 25 mg PO BID 07/19/23 Unknow n History chlorthalidone 25 mg tablet 25 mg PO DAILY 07/19/23 Un known History Allergy/AdvReac Type Severity Reaction Status Date / Time lisinopril AdvReac Mild cough Verified 02/23/25 08:16 Family History Sister Heart disease Daughter Heart disease Surgical History S/P lumbar laminectomy H/O coronary artery bypass surgery (08/06/16) Social History Smoking Status: Former smoker how long ago did patient quit smokin alcohol intake: current alcohol intake frequency: holidays/special occasions only details: <1x/month substance use type: does not use caffeine: Yes Type: coffee Number of servings: 5 ROS ROS Narrative negative except above Physical Exam Narrative Alert awake oriented x 3 no obvious distress no pallor no icterus no JVD s1s2 no murmurs lungs clear abdomen soft no organomegaly no edema no cyanosis Lab / Micro Data 02/24/25 04:43 02/24/25 04:43 Labs: Laboratory Results - last 24 hr 02/24/25 01:34: POC Glucose 128 H 02/24/25 04:43: WBC 8.0, RBC 3.23 L, Hgb 9.6 L, Hct 28.9 L, MCV 89.5, MCH 29.7, MCHC 33.2, RDW Std Deviation 40.3, RDW Coeff of Samir 12.3, Plt Count 254, MPV 9.7, Immature Gran % (Auto) 0.500, Neut % (Auto) 62.1, Lymph % (Auto) 20.7, [place]% (Auto) 9.0, Eos % (Auto) 6.8 H, Baso % (Auto) 0.9, Absolute Neuts (auto) 4.9, Absolute Lymphs (auto) 1.65, Nucleated RBC % 0, Sodium 138, Potassium 4.2, Chloride 102, Carbon Dioxide 21.5, Anion Gap 14, BUN 67 H, Creatinine 3.37 H, Estim Creat Clear Calc 18.94 L, Est GFR (MDRD) Non-Af 18 L, BUN/Creatinine Ratio 19.9, Glucose 217 H, Calcium 8.8 02/24/25 10:54: POC Glucose 197 H Rhythm Strip Rhythm Strip: Sinus Rhythm Rate: 83 Ectopy: None 02/24/251827 <Electronically signed by Sunshine Nesbitt MD> Cosigner Signature (if applicable): CC: [facility]~ Signed [facility] Work Phone: 1(232) 905-369608-20-2025 Consult note [facility] Medical Records Department [address] [place] [address] Consultation - Nephrology 02/24/25 182 MR#: [id number] Acct: [id number] Name: SAM VIDALES Rep #:[id number] : 1950 74 From: Sunshine vides MD PCP: [facility] Status:ADM IN Location: [place] [address] Assessment & Plan Assessment/Plan (1) Chronic kidney disease: PLAN: # 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 Several fluctuations related to cardiorenal syndrome/fluid overload. Recently had a diagnostic angiogram which was okay. In the process of getting scheduled forTAVR. Presented with shortness of breath, improved with Lasix. Voiding okay. He will ultimately need TAVR surgery for symptomatic benefit. HPI Consult Data Date of Consult: 02/24/25 HPI Narrative Reason for Consultation: JUAN HPI Narrative: SAM VIDALES, is a 74 M who presents To the hospital with shortness of breath. Nephrology on consultation in view of CKD/JUAN. He is actually known to me fromrecent visit. Has CKD stage IIIb/IV. Hassevere aortic stenosis. Was admittedrecently with similar complaints. Was supposed to follow-up with cardiology at [facility] for consideration of TAVR. Has a visit coming up with them in about 2 weeks. Presented with shortness of breath. Recent coronary angiogram was okay. Feels better today. [facility] Medical History Abnormal stress test Essential hypertension Claudication of lower extremity Non-rheumatic aortic stenosis Atherosclerosis of coronary artery of [place] heart without angina pectoris Hyperlipidemia Type 2 diabetes mellitus without complications DDD (degenerative disc disease), lumbar Spinal stenosis of lumbar region without neurogenic claudication Spondylosis of lumbosacral region without myelopathy or radiculopathy Spondylosis without myelopathy or radiculopathy, lumbar region Other spondylosis, lumbar region Other intervertebral disc displacement, lumbosacral region Other intervertebral disc degeneration, lumbar region Home Medications ?Medication ?Instructions ?Recorded ?Last Taken ?Type atorvastatin 40 mg tablet 40 mg PO QHS #30 tabs Unknown Rx aspirin 81 mg tablet,delayed 81 mg PO DAILY 06/14/21 U nknown History release (Adult Aspirin Regimen) ezetimibe 10 mg tablet (Zetia) 10 mg PO DAILY 10/09/21 Unknown History insulin glargine 100 unit/mL 15 unit subcut DAILY 10/27 Unknown History subcutaneous solution (Lantus U-100 Insulin) isosorbide mononitrate 30 mg 30 mg PO DAILY #30 tabs 0 01/05/22 Unknown Rx tablet,extended release 24 hr minoxidil 2.5 mg tablet 5 mg PO DAILY 04/30/22 Unkno wn History empagliflozin 25 mg tablet 12.5 mg PO DAILY 11/29/22 U nknown History (Jardiance) carvedilol 25 mg tablet 25 mg PO BID 07/19/23 Unknow n History chlorthalidone 25 mg tablet 25 mg PO DAILY 07/19/23 Un known History Allergy/AdvReac Type Severity Reaction Status Date / Time lisinopril AdvReac Mild cough Verified 02/23/25 08:16 Family History Sister Heart disease Daughter Heart disease Surgical History S/P lumbar laminectomy H/O coronary artery bypass surgery (08/06/16) Social History Smoking Status: Former smoker how long ago did patient quit smokin alcohol intake: current alcohol intake frequency: holidays/special occasions only details: <1x/month substance use type: does not use caffeine: Yes Type: coffee Number of servings: 5 ROS ROS Narrative negative except above Physical Exam Narrative Alert awake oriented x 3 no obvious distress no pallor no icterus no JVD s1s2 no murmurs lungs clear abdomen soft no organomegaly no edema no cyanosis Lab / Micro Data 02/24/25 04:43 02/24/25 04:43 Labs: Laboratory Results - last 24 hr 02/24/25 01:34: POC Glucose 128 H 02/24/25 04:43: WBC 8.0, RBC 3.23 L, Hgb 9.6 L, Hct 28.9 L, MCV 89.5, MCH 29.7, MCHC 33.2, RDW Std Deviation 40.3, RDW Coeff of Samir 12.3, Plt Count 254, MPV 9.7, Immature Gran % (Auto) 0.500, Neut % (Auto) 62.1, Lymph % (Auto) 20.7, [place]% (Auto) 9.0, Eos % (Auto) 6.8 H, Baso % (Auto) 0.9, Absolute Neuts (auto) 4.9, Absolute Lymphs (auto) 1.65, Nucleated RBC % 0, Sodium 138, Potassium 4.2, Chloride 102, Carbon Dioxide 21.5, Anion Gap 14, BUN 67 H, Creatinine 3.37 H, Estim Creat Clear Calc 18.94 L, Est GFR (MDRD) Non-Af 18 L, BUN/Creatinine Ratio 19.9, Glucose 217 H, Calcium 8.8 02/24/25 10:54: POC Glucose 197 H Rhythm Strip Rhythm Strip: Sinus Rhythm Rate: 83 Ectopy: None 02/24/25 1828 Cosigner Signature (if applicable): CC: [facility]~ Signed [facility]08-20-2025 Progress note Author Lana Menjivar [facility] Note Date/Time February 24, 2025 3: 09pm [facility] Medical Records Department [address] [place] [address] Progress Note 02/24/25 1100 MR#: [id number] Acct: [id number] Name: SAM VIDALES Rep #:[id number] : 1950 74 From: Lana Menjivar MD PCP: [facility] Status:ADM IN Location: ICU CVICU20 1-1 Subjective Subjective Patient seen and examined. He is off oxygen and feels much better. He has no complaints this morning. Review of systems is otherwise negative. Objective Data Objective Data Vital Signs: Vital Signs Temp Pulse Resp BP Pulse Ox O2 Del Method O2 Flow Rate 98.5 F 84 19 H 137/88 H 97 Room Air 2 02/24/25 10:00 02/24/25 10:00 02/24/25 10:00 02/24/25 10:00 02/24/25 10:00 02/24/25 10:00 02/23/25 15:00 FiO2 60 02/23/25 11:45 Oxygen Flow Rate (L/min) 2 Oxygen Delivery Method Room Air Weight: 172 lb 0.004 oz Body Mass Index (BMI) 25.4 Intake & Output: Intake and Output for Last 24 Hours 02/22/25 02/23/25 02/24/25 23:59 23:59 23:59 Output Total 2625 / 2625 900 / 900 Balance -2625 / -2625 -900 / -900 Lab / Micro Data 02/24/25 04:43 02/24/25 04:43 Labs: Laboratory Results - last 24 hr 02/23/25 10:58: Troponin T Hi Sens 2 Hr 134 H* 02/23/25 12:55: Troponin T Hi Sens 4Hr 149 H* 02/24/25 01:34: POC Glucose 128 H 02/24/25 04:43: WBC 8.0, RBC 3.23 L, Hgb 9.6 L, Hct 28.9 L, MCV 89.5, MCH 29.7, MCHC 33.2, RDW Std Deviation 40.3, RDW Coeff of Samir 12.3, Plt Count 254, MPV 9.7, Immature Gran % (Auto) 0.500, Neut % (Auto) 62.1, Lymph % (Auto) 20.7, [place]% (Auto) 9.0, Eos % (Auto) 6.8 H, Baso % (Auto) 0.9, Absolute Neuts (auto) 4.9, Absolute Lymphs (auto) 1.65, Nucleated RBC % 0, Sodium 138, Potassium 4.2, Chloride 102, Carbon Dioxide 21.5, Anion Gap 14, BUN 67 H, Creatinine 3.37 H, Estim Creat Clear Calc 18.94 L, Est GFR (MDRD) Non-Af 18 L, BUN/Creatinine Ratio 19.9, Glucose 217 H, Calcium 8.8 Rhythm Strip Rhythm Strip: Sinus Rhythm Rate: 83 Ectopy: None Physical Exam Const alert, oriented x3 and no apparent distress General Appearance: cooperative HEENT normocephalic, head/scalp atraumatic, moist oral mucous membranes and oropharynxnormal Eyes EOMs intact bilaterally and conjunctivae normal Neck supple and no JVD Lymph Lymphatic: no lymphedema noted Resp Resp Narrative: mildly diminished breath sounds bibasally, no wheezes or crackles. On room air. Cardio regular rate, regular rhythm, S1 normal heart sound, S2 normal heart sound and no murmurs GI normal to inspection, nondistended, normoactive bowel sounds, soft to palpation,non-tender and non-distended Extremity normal to inspection, full ROM and no clubbing, cyanosis or edema General Extremity: no tenderness to palpation of joints or extremities Skin General Skin Exam: no breakdown Neuro oriented x3, CN's II-XII intact bilaterally and moves all extremities Sensorium / Orientation: awake and alert Motor Exam: strength 5/5 throughout Psych thought process normal, cooperative and affect normal Appearance: appropriate Assessment & Plan Assessment/Plan (1) History of aortic stenosis: (2) Acute respiratory failure with hypoxia: (3) Acute heart failure: PLAN: Plan #Acute hypoxic respiratory failure due to acute on chronic HFrEF in the setting of severe aortic stenosis * patient was recently admitted ~ 1 week ago for acute hypoxic respiratory failure due to acute on chronic HFrEF as well as nonstemi and severe aortic stenosis * he was intubated in the previous admission and on extubation, he had cardiac cath which showed severe aortic stenosis. Records from that admission are under a different visit number and efforts are being made to merge that with this visit. * he was discharged home to follow up with cardiology on outpatient basis * He came in today with a complaint of shortness of breath and cough which is productive of clear sputum. He required BIPAP on arrival in the ED. * Initial troponin was 142 and essentially remaiined flat, only getting to 149. * [place] B[place] [address]179. * now on room air and feels much better. * Being diuresed with IV lasix 40mg bid. * upper doubler Dr Mary did see patient yesterday and today. He recommended patient being sent home on PO lasix 60mg bid when medically stable. * We are still waiting for his most recent visit to be merged with this visit in order to access his records from most recent visit. * titrate oxygen to maintain sats >90% * breathing treatment with bronchodilators. * * #JUAN on CKD III * Cr is slightly up to 3.37. Baseline Cr is ~ 2.7. * being diuresed with IV lasix which may also worsen Cr * nephrology consulted. Results from most recent admission is not seen in the EMR as that visit is still being merged * await records from most recent admission as it is still being merged with this visit. * #CAD; on aspirin, statin and imdur. #Type 2 diabetes mellitus * on lantus 15 units daily. ISS. Accuchecks ACHS. Hold Jardiance * #Hypertension: on carvedilol, chlorthalidone and minoxidil. Per discussion with cardiology, to review most recent med list when the records are merged to decidewhether to continue chlorthalidone and minoxidil. DVT prophylaxis: lovenox, renally dosed Code status: full code * Disposition: Transfer to PCU Charges/Coding Visit Charges Inpatient E&M: 38560 Subs Hosp L2 02/24/25 1509 <Electronically signed by Lana Menjivar MD> Lana Menjivar MD Cosigner Signature (if applicable): CC: ~ Signed [facility] Work Phone: 1(232) 699-661708-20-2025 Progress note [facility] Medical Records Department [address] [place] [address] Progress Note 02/24/25 1100 MR#: [id number] Acct: [id number] Name: SAM VIDALES Rep #:[id number] : 1950 74 From: Lana Menjivar MD PCP: [facility] Status:ADM IN Location: ICU CVICU20 1-1 Subjective Subjective Patient seen and examined. He is off oxygen and feels much better. He has no complaints this morning. Review of systems is otherwise negative. Objective Data Objective Data Vital Signs: Vital Signs Temp Pulse Resp BP Pulse Ox O2 Del Method O2 Flow Rate 98.5 F 84 19 H 137/88 H 97 Room Air 2 02/24/25 10:00 02/24/25 10:00 02/24/25 10:00 02/24/25 10:00 02/24/25 10:00 02/24/25 10:00 02/23/25 15:00 FiO2 60 02/23/25 11:45 Oxygen Flow Rate (L/min) 2 Oxygen Delivery Method Room Air Weight: 172 lb 0.004 oz Body Mass Index (BMI) 25.4 Intake & Output: Intake and Output for Last 24 Hours 02/22/25 02/23/25 02/24/25 23:59 23:59 23:59 Output Total 2625 / 2625 900 / 900 Balance -2625 / -2625 -900 / -900 Lab / Micro Data 02/24/25 04:43 02/24/25 04:43 Labs: Laboratory Results - last 24 hr 02/23/25 10:58: Troponin T Hi Sens 2 Hr 134 H* 02/23/25 12:55: Troponin T Hi Sens 4Hr 149 H* 02/24/25 01:34: POC Glucose 128 H 02/24/25 04:43: WBC 8.0, RBC 3.23 L, Hgb 9.6 L, Hct 28.9 L, MCV 89.5, MCH 29.7, MCHC 33.2, RDW Std Deviation 40.3, RDW Coeff of Samir 12.3, Plt Count 254, MPV 9.7, Immature Gran % (Auto) 0.500, Neut % (Auto) 62.1, Lymph % (Auto) 20.7, [place]% (Auto) 9.0, Eos % (Auto) 6.8 H, Baso % (Auto) 0.9, Absolute Neuts (auto) 4.9, Absolute Lymphs (auto) 1.65, Nucleated RBC % 0, Sodium 138, Potassium 4.2, Chloride 102, Carbon Dioxide 21.5, Anion Gap 14, BUN 67 H, Creatinine 3.37 H, Estim Creat Clear Calc 18.94 L, Est GFR (MDRD) Non-Af 18 L, BUN/Creatinine Ratio 19.9, Glucose 217 H, Calcium 8.8 Rhythm Strip Rhythm Strip: Sinus Rhythm Rate: 83 Ectopy: None Physical Exam Const alert, oriented x3 and no apparent distress General Appearance: cooperative HEENT normocephalic, head/scalp atraumatic, moist oral mucous membranes and oropharynxnormal Eyes EOMs intact bilaterally and conjunctivae normal Neck supple and no JVD Lymph Lymphatic: no lymphedema noted Resp Resp Narrative: mildly diminished breath sounds bibasally, no wheezes or crackles. On room air. Cardio regular rate, regular rhythm, S1 normal heart sound, S2 normal heart sound and no murmurs GI normal to inspection, nondistended, normoactive bowel sounds, soft to palpation,non-tender and non-distended Extremity normal to inspection, full ROM and no clubbing, cyanosis or edema General Extremity: no tenderness to palpation of joints or extremities Skin General Skin Exam: no breakdown Neuro oriented x3, CN's II-XII intact bilaterally and moves all extremities Sensorium / Orientation: awake and alert Motor Exam: strength 5/5 throughout Psych thought process normal, cooperative and affect normal Appearance: appropriate Assessment & Plan Assessment/Plan (1) History of aortic stenosis: (2) Acute respiratory failure with hypoxia: (3) Acute heart failure: PLAN: Plan #Acute hypoxic respiratory failure due to acute on chronic HFrEF in the setting of severe aortic stenosis * patient was recently admitted ~ 1 week ago for acute hypoxic respiratory failure due to acute on chronic HFrEF as well as nonstemi and severe aortic stenosis * he was intubated in the previous admission and on extubation, he had cardiac cath which showed severe aortic stenosis. Records from that admission are under a different visit number and efforts arebeing made to merge that with this visit. * he was discharged home to follow up with cardiology on outpatient basis * He came in today with a complaint of shortness of breath and cough which is productive of clear sputum. He required BIPAP on arrival in the ED. * Initial troponin was 142 and essentially remaiined flat, only getting to 149. * pro BNP [place] 18129. * now on room air and feels much better. * Being diuresed with IV lasix 40mg bid. * upper doubler Dr Mary did see patient yesterday and today. He recommended patient being sent homeon PO lasix 60mg bid when medically stable. * We are still waiting for his most recent visit to be merged with this visit in order to access his records from most recent visit. * titrate oxygen to maintain sats >90% * breathing treatment with bronchodilators. * * #JUAN on CKD III * Cr is slightly up to 3.37. Baseline Cr is ~ 2.7. * being diuresed with IV lasix which may also worsen Cr * nephrology consulted. Results from most recent admission is not seen in the EMR as that visit is still being merged * await records from most recent admission as it is still being merged with this visit. * #CAD; on aspirin, statin and imdur. #Type 2 diabetes mellitus * on lantus 15 units daily. ISS. Accuchecks ACHS. Hold Jardiance * #Hypertension: on carvedilol, chlorthalidone and minoxidil. Per discussion with cardiology, to review most recent med list when the records are merged to decidewhether to continue chlorthalidone and minoxidil. DVT prophylaxis: lovenox, renally dosed Code status: full code * Disposition: Transfer to PCU Charges/Coding Visit Charges Inpatient E&M: 69006 Subs Hosp L2 02/24/25 1509 Lana Menjivar MD Cosigner Signature (if applicable): CC: ~ Signed [facility]08-19-2025 History and physical note Author Lana [facility] Note Date/Time February 23, 2025 4: 11pm [facility] Medical Records Department [address] [place] [address] H&P Exam - Hospitalist 02/23/25 1022 MR#: [id number] Acct: [id number] Name: SAM VIDALES Rep #:[id number] : 1950 74 From: Lana Menjivar MD PCP: [facility] Status:ADM IN Location: ICU CVICU20 1-1 HPI - General General Date of Admission: 02/23/25 Date of Service: 02/23/25 Chief Complaint: shortness of breath HPI Narrative SAM VIDALES, is a 74 M with a PMH as outlined who presents via the ED on 02/23/2025 with a complaint of shortness of breath. He has a history of severe aortic stenosis, and was recently seen about a week ago and managed for acute hypoxic respiratory failure due to acute heart failure and severe aortic stenosis. He was intubated during that admission and had a cardiac cath which showed clean coronaries. He was discharged home, to follow with cardiology and to be set up for TAVR. However he said he started feeling short of breath againovernight. He denied any chest pain or palpitations, dizziness, nausea vomitingor any other symptoms. Of note to the most recent admission records and a different visit number and efforts have been made to currently merge those visits. Vitals in the ED were blood pressure of 139/74, pulse rate of 73, respiratory rate of 19 and temperature of 97.1 Fahrenheit. He was saturating at 100% on BIPAP. BiPAP CBC showed hemoglobin of 10.8 with WBC of 10 and platelets of 274. Chemistry showed sodium of 139 with potassium of 4.9 and creatinine of 3.2. Initial troponin was 142. proBNP was 98966. chest x-ray showed central vascularity which appeared increase in interstitial infiltrates in the perihilarregion on the right and left. He is being admitted to be mnaged for acute hypoxic respiratory failure due to acute exacerbation of HFpEF in the setting ofsevere aortic stenosis. [facility] Medical History Abnormal stress test Essential hypertension Claudication of lower extremity Non-rheumatic aortic stenosis Atherosclerosis of coronary artery of [place] heart without angina pectoris Hyperlipidemia Type 2 diabetes mellitus without complications DDD (degenerative disc disease), lumbar Spinal stenosis of lumbar region without neurogenic claudication Spondylosis of lumbosacral region without myelopathy or radiculopathy Spondylosis without myelopathy or radiculopathy, lumbar region Other spondylosis, lumbar region Other intervertebral disc displacement, lumbosacral region Other intervertebral disc degeneration, lumbar region Home Medications ?Medication ?Instructions ?Recorded ?Last Taken ?Type atorvastatin 40 mg tablet 40 mg PO QHS #30 tabs Unknown Rx aspirin 81 mg tablet,delayed 81 mg PO DAILY 06/14/21 U nknown History release (Adult Aspirin Regimen) ezetimibe 10 mg tablet (Zetia) 10 mg PO DAILY 10/09/21 Unknown History insulin glargine 100 unit/mL 15 unit subcut DAILY 10/27 Unknown History subcutaneous solution (Lantus U-100 Insulin) isosorbide mononitrate 30 mg 30 mg PO DAILY #30 tabs 0 01/05/22 Unknown Rx tablet,extended release 24 hr minoxidil 2.5 mg tablet 5 mg PO DAILY 04/30/22 Unkno wn History empagliflozin 25 mg tablet 12.5 mg PO DAILY 11/29/22 U nknown History (Jardiance) carvedilol 25 mg tablet 25 mg PO BID 07/19/23 Unknow n History chlorthalidone 25 mg tablet 25 mg PO DAILY 07/19/23 Un known History Allergy/AdvReac Type Severity Reaction Status Date / Time lisinopril AdvReac Mild cough Verified 02/23/25 08:16 Family History Sister Heart disease Daughter Heart disease Surgical History S/P lumbar laminectomy H/O coronary artery bypass surgery (08/06/16) Social History Smoking Status: Former smoker how long ago did patient quit smokin alcohol intake: current alcohol intake frequency: holidays/special occasions only details: <1x/month substance use type: does not use caffeine: Yes Type: coffee Number of servings: 5 ROS Constitutional Constitutional: Reports malaise and weakness; Denies anorexia, fatigue or fever(s) Eyes Eyes: Denies change in vision ENT HEENT: Denies dysphagia, headache(s) or sore throat Cardiovascular Cardiovascular: Reports dyspnea on exertion, edema, orthopnea and paroxysmal nocturnal dyspnea; Denies chest pain, palpitations, rapid heart rate or syncope Respiratory/Chest Respiratory/Chest: Reports dyspnea, shortness of breath at rest and shortness ofbreath with exertion; Denies cough, productive cough or wheezing Gastrointestinal Gastrointestinal: Denies abdominal pain, constipation, diarrhea, nausea or vomiting Genitourinary Genitourinary: Denies dysuria Neurologic Neurologic: Denies confusion, focal weakness, headache(s), numbness, seizures orsyncope Psychiatric Psychiatric: Denies anxiety Vital Signs Vital Signs Vital Signs: 02/23/25 08:14 02/23/25 08:42 02/23/25 08:44 Temperature 98.3 F 98.3 F Temperature Source Oral Oral Pulse Rate 88 81 Respiratory Rate 17 28 H Respiratory Effort Respiratory Depth Respiratory Pattern Blood Pressure 174/84 H 180/82 H Blood Pressure Mean 114 114 Pulse Ox 94 95 93 Oxygen Delivery Method Room Air Room Air Nasal Cannula Oxygen Flow Rate (L/min) 2 Fraction of Inspired Oxygen (FIO2) 02/23/25 08:46 02/23/25 09:33 02/23/25 10:18 Temperature 97.1 F L Temperature Source Temporal Pulse Rate 94 73 Respiratory Rate 35 H 19 H Respiratory Effort Short of Breath Labored Accessory Muscle Use Respiratory Depth Deep Respiratory Pattern Tachypnea Normal Blood Pressure 139/74 H Blood Pressure Mean 95 Pulse Ox 94 100 Oxygen Delivery Method Nasal Cannula Bi-pap Oxygen Flow Rate (L/min) 2 Fraction of Inspired Oxygen (FIO2) 80 02/23/25 10:19 Temperature 97.1 F L Temperature Source Pulse Rate 73 Respiratory Rate 19 H Respiratory Effort Respiratory Depth Respiratory Pattern Blood Pressure 139/74 H Blood Pressure Mean 95 Pulse Ox 100 Oxygen Delivery Method Oxygen Flow Rate (L/min) Fraction of Inspired Oxygen (FIO2) Weight Weight: 173 lb Body Mass Index (BMI) 25.5 Physical Exam Const alert, oriented x3 and no apparent distress General Appearance: cooperative HEENT normocephalic, head/scalp atraumatic, moist oral mucous membranes and oropharynxnormal Mouth: oral and palatal mucosa normal Eyes EOMs intact bilaterally and conjunctivae normal Neck supple and no JVD Resp Resp Narrative: on BIPAP. diminished breath sounds bibasally, no wheezes or crackles. Cardio regular rate, regular rhythm, S1 normal heart sound, S2 normal heart sound and no murmurs GI normal to inspection, nondistended, normoactive bowel sounds, soft to palpation,non-tender and non-distended Extremity normal to inspection, full ROM and no clubbing, cyanosis or edema Neuro oriented x3, CN's II-XII intact bilaterally and moves all extremities Sensorium / Orientation: awake and alert Motor Exam: strength 5/5 throughout Psych affect normal Results Lab / Micro Data 02/23/25 08:45 02/23/25 08:45 Labs: Laboratory Results - last 24 hr 02/23/25 08:45: WBC 10.0, RBC 3.62 L, Hgb 10.8 L, Hct 32.7 L, MCV 90.3, MCH 29.8, MCHC 33.0, RDW Std Deviation 41.6, RDW Coeff of Samir 12.5, Plt Count 274, MPV 9.6, Immature Gran % (Auto) 0.800, Neut % (Auto) 67.6, Lymph % (Auto) 14.9 L, [place] % (Auto) 7.7, Eos % (Auto) 8.2 H, Baso % (Auto) 0.8, Absolute Neuts (auto) 6.8, Absolute Lymphs (auto) 1.49, Nucleated RBC % 0, Sodium 139, Potassium 4.9, Chloride 104, Carbon Dioxide 20.2 L, Anion Gap 15, BUN 67 H, Creatinine 3.20 H, Estim Creat Clear Calc 19.95 L, Est GFR (MDRD) Non-Af 19 L, BUN/Creatinine Ratio 21.0 H, Glucose 212 H, Calcium 8.9, Troponin T High Sens 142H*, [place] [address] H Rhythm Strip Rhythm Strip: Sinus Rhythm Rate: 83 Ectopy: None Imaging Radiology Impression Chest X-Ray 02/23/25 08:46 IMPRESSION: Central vascularity appears increased. There are interstitial infiltrates in the perihilar region on the right and left. Reading Location: [facility] Assessment & Plan Assessment/Plan (1) History of aortic stenosis: (2) Acute respiratory failure with hypoxia: (3) Acute heart failure: PLAN: Plan #Acute hypoxic respiratory failure due to acute on chronic HFrEF in the setting of severe aortic stenosis * patient was recently admitted ~ 1 week ago for acute hypoxic respiratory failure due to acute on chronic HFrEF as well as nonstemi and severe aortic stenosis * he was intubated in the previous admission and on extubation, he had cardiac cath which showed severe aortic stenosis. Records from that admission are under a different visit number and efforts are being made to merge that with this visit. * he was discharged home to follow up with cardiology on outpatient basis * He came in today with a complaint of shortness of breath and cough which is productive of clear sputum. He required BIPAP on arrival in the ED. * Initial troponin was 142 and essentially remaiined flat, only getting to 149. * pro BNP was 89332. * admit to the ICU as he is on BIPAP. diurese with IV lasix 40mg bid * titrate oxygen to maintain sats >90%. Hold off on 2D echo as he recently had an echo * cardiology was consulted, but I discussed with the upper doubler animated cartoons painter Dr Mary; he recommended continuing diuresis. He will speak to family about need for diuresis and then follow up with cardiology on outpatient basis for TAVR. Will therefore cancel consult * hold off on critical care consult as patient weaned off BIPAP on admission to ICU to 2L of oxygen * monitor intake and output. Fluid restriction to 1500cc daily. * #JUAN on CKD III * Cr is 3.2. Baseline Cr is ~ 2.7. * being diuresed with IV lasix which may also worsen Cr * nephrology consulted. Results from most recent admission is not seen in the EMR as that visit is still being merged * nephrology consulted. * #CAD; on aspirin, statin and imdur. #Type 2 diabetes mellitus * on lantus 15 units daily. ISS. Accuc hecks ACHS. Hold jardiance. * #Hypertension: on carvedilol, chlorthalidone and minoxidil DVT prophylaxis: lovenox, renally dosed Code status: full code * Patient counseled extensively about different types of CODE STATUS including full code, DNR CCA and DNR CCA. * Patient elects to be full code. * Total tvvl-hw-vmdw time 16 minutes. # Charges/Coding Visit Charges Inpatient E&M: 00128 Init Hosp L3 Procedures Hospitalists Procedures: 72799 Advncd Care Plan 30 Min 02/23/25 1611 <Electronically signed by Lana Menjivar MD> Cosigner Signature (if applicable): CC: Dr. Lana Menjivar MD; [facility]~ Signed [facility] Work Phone: [phone]) 961-279208-19-2025 Discharge summary Author Ayaz Hendrickson [facility] Note Date/Time February 23, 2025 3: 13pm [facility] Medical Records Department [address] [place] [address] Emergency Department Summary 02/23/25 MR#: [id number] Acct: [id number] Name: SAM VIDALES Rep #:[id number] : 1950 74 From: Ayaz Hendrickson MD [facility] Status:ADM IN Location: ICU CVICU20 1-1 HPI History of Present Illness Chief Complaint: Shortness of Breath Informant: patient Onset/Context/Timing Onset: Today and Yesterday Context: gradual Quality: Positive for Dyspnea on exertion Current Severity: Mild Maximum Severity: Mild Associated Symptoms cough Chest Pain: Positive for None Narrative Narrative: 74-year-old male history of diabetes aortic stenosis, recent heart cath, aortic stenosis and he is on aspirin but no other blood thinners. In a recent hospitalization a week ago I believe is intubated on the ventilator for congestive heartfailure. He was just discharged this past Saturday and he says he feels short of breath yesterday today primarily with exertion. No chest pain. No fever. He had a cough but said that is resolving. PE Risk Factors: Positive for Recent immobilization; Negative for Cancer, OCP + Smoking + > 35, Prior DVT or PE, Recent surgery or Recent travel Prior similar symptoms: Yes Recent Illness/Hospitalization: Yes [facility] Medical History Abnormal stress test Essential hypertension Claudication of lower extremity Non-rheumatic aortic stenosis Atherosclerosis of coronary artery of [place] heart without angina pectoris Hyperlipidemia Type 2 diabetes mellitus without complications DDD (degenerative disc disease), lumbar Spinal stenosis of lumbar region without neurogenic claudication Spondylosis of lumbosacral region without myelopathy or radiculopathy Spondylosis without myelopathy or radiculopathy, lumbar region Other spondylosis, lumbar region Other intervertebral disc displacement, lumbosacral region Other intervertebral disc degeneration, lumbar region Home Medications ?Medication ?Instructions ?Recorded ?Last Taken ?Type atorvastatin 40 mg tablet 40 mg PO QHS #30 tabs Unknown Rx aspirin 81 mg tablet,delayed 81 mg PO DAILY 06/14/21 U nknown History release (Adult Aspirin Regimen) ezetimibe 10 mg tablet (Zetia) 10 mg PO DAILY 10/09/21 Unknown History insulin glargine 100 unit/mL 15 unit subcut DAILY 10/27 Unknown History subcutaneous solution (Lantus U-100 Insulin) isosorbide mononitrate 30 mg 30 mg PO DAILY #30 tabs 0 01/05/22 Unknown Rx tablet,extended release 24 hr minoxidil 2.5 mg tablet 5 mg PO DAILY 04/30/22 Unkno wn History empagliflozin 25 mg tablet 12.5 mg PO DAILY 11/29/22 U nknown History (Jardiance) carvedilol 25 mg tablet 25 mg PO BID 07/19/23 Unknow n History chlorthalidone 25 mg tablet 25 mg PO DAILY 07/19/23 Un known History Allergy/AdvReac Type Severity Reaction Status Date / Time lisinopril AdvReac Mild cough Verified 02/23/25 08:16 Family History Sister Heart disease Daughter Heart disease Surgical History S/P lumbar laminectomy H/O coronary artery bypass surgery (08/06/16) Social History Smoking Status: Former smoker how long ago did patient quit smokin alcohol intake: current alcohol intake frequency: holidays/special occasions only details: <1x/month substance use type: does not use caffeine: Yes Type: coffee Number of servings: 5 ROS ROS ED ROS Narrative Shortness of breath. Constitutional Constitutional ED: Denies chills or fever(s) Eyes Eyes: Denies blurry vision ENT ENT ED: Denies ear pain Cardiovascular Cardiovascular: Denies chest pain Respiratory/Chest Respiratory/Chest: Reports cough Gastrointestinal Gastrointestinal: Denies abdominal pain Genitourinary Genitourinary ED: Denies dysuria or hematuria Musculoskeletal Musculoskeletal: Denies arthralgias Integumentary Denies abscess Neurologic Neurologic: Denies headache(s) Psychiatric Psychiatric: Denies anxiety Endocrine Endocrinology: Denies cold intolerance Hematologic/Lymphatic Hematologic/Lymphatic: Denies easy bleeding, easy bruising or lymphadenopathy Allergic/Immunologic Allergic/Immunologic ED: Denies mouth swelling, tongue swelling or urticaria EXAM Physical Exam Narrative Exam Narrative: Well-appearing 74-year-old male sitting upright in bed. Vital signs stable afebrile 94% pulse ox on room air. Currently is on oxygen. No distress. at bedside. H EENT exam pupils round react light. Moist pink membranes. Neck nontender no JVD. No lymphadenopathy. Lungs coarse breath sounds bilaterally. No rales or rhonchi. Equal symmetrical. Heart regular rhythm rate about 90 5/6systolic ejection murmur history of aortic stenosis. Chest wall ribs nontender. Abdomen soft nontender. Back nontender. Moving all 4 extremities. Normal strength. Nontender no edema. Calves are nontender without cords. Neurologically is awake alert. Answering questions following commands. No focal motor deficits. Const Vital Signs: 02/23/25 08:14 02/23/25 08:42 02/23/25 08:44 Temperature 98.3 F 98.3 F Temperature Source Oral Oral Pulse Rate 88 81 Respiratory Rate 17 28 H Respiratory Effort Respiratory Depth Respiratory Pattern Blood Pressure 174/84 H 180/82 H Blood Pressure Mean 114 114 Pulse Ox 94 95 93 Oxygen Delivery Method Room Air Room Air Nasal Cannula Oxygen Flow Rate (L/min) 2 Fraction of Inspired Oxygen (FIO2) 02/23/25 08:46 02/23/25 09:33 Temperature Temperature Source Pulse Rate 94 Respiratory Rate 35 H Respiratory Effort Short of Breath Labored Accessory Muscle Use Respiratory Depth Deep Respiratory Pattern Tachypnea Normal Blood Pressure Blood Pressure Mean Pulse Ox 94 Oxygen Delivery Method Nasal Cannula Oxygen Flow Rate (L/min) 2 Fraction of Inspired Oxygen (FIO2) 80 Positive well nourished and well developed; Negative for obese, cachectic, contractures or unkempt General Appearance ED: well developed and NAD; Negative for unkempt, cachectic, contractures or pallor Nutritional Appearance: Negative for cachectic or obese HEENT Reports moist mucous membranes atraumatic; Negative for trauma or tenderness Eyes PERRL and EOMs intact bilaterally General Eye ED: Negative for pale conjunctiva or scleral icterus Neck no lymphadenopathy, supple, no meningeal signs and no JVD Resp normal respiratory effort and No clear to auscultation bilaterally Resp Narrative: Coarse breath sounds bilaterally. Auscultation: Negative for rales, rhonchi or wheezes Cardio regular rate, regular rhythm, S1 normal heart sound, S2 normal heart sound and no murmurs GI non-tender, non-distended and no masses Auscultation: normoactive bowel sounds Palpation: soft; Negative for tender, guarding or rebound tenderness present Back/Spine no CVA tenderness and normal to inspection General Back: Negative for CVA tenderness Extremity normal to inspection General Extremety ED: Negative for edema, tenderness or other findings General Extremity: Negative for edema or other findings Neuro oriented x3 and CN's II-XII intact bilaterally Sensorium / Orientation: alert, oriented to person, oriented to place and oriented to time; Negative for orientation impaired, confused, lethargic or stuporous Speech: speech normal Motor Exam: strength 5/5 throughout Psych mental status grossly normal Appearance: Negative for unkempt Attitude: No agitated Mood & Affect: Negative for depressed Thought Process: normal thought process Skin no wounds and skin turgor normal General Skin Exam: Negative for jaundice or pallor Lesions: no lesions Rashes: no rashes Trauma: Negative for abrasion or laceration MDM MDM MDM Narrative Medical decision making narrative: 74-year-old male shortness of breath well-established cardiac history with history of aortic stenosis. Differential includes CHF, pneumonia, pleural effusion, IL, etc. Clinically does not sound like a pulmonary emboli. Chest x-ray and labs will be obtained. Patient's O2 sat dropped to about 75 while on 2 evaluations of his placed on BiPAP currently is much more comfortable on the BiPAP. Will be admitted for CHF. He was given IV Lasix 40 mg. History & Record Review Discussion w/independent historian: Patient and Family Additional record(s) reviewed:: Prior outpatient record, Prior ED visit and Prior labs Lab Data Attestation: I reviewed the patient's lab results. Lab results narrative: CBC shows a white count of 10. H&H of 10.8 and 32. Platelets 274. Electrolytes show a gap of 15. BUN and creatinine of 67 and 3.2 send chronic renal insufficiency. Glucose 212. BNP is 10,594. Initial troponin is 142. Labs: Laboratory Results - last 24 hr 02/23/25 08:45 WBC 10.0 RBC 3.62 L Hgb 10.8 L Hct 32.7 L MCV 90.3 MCH 29.8 MCHC 33.0 RDW Std Deviation 41.6 RDW Coeff of Samir 12.5 Plt Count 274 MPV 9.6 Immature Gran % (Auto) 0.800 Neut % (Auto) 67.6 Lymph % (Auto) 14.9 L [place] % (Auto) 7.7 Eos % (Auto) 8.2 H Baso % (Auto) 0.8 Absolute Neuts (auto) 6.8 Absolute Lymphs (auto) 1.49 Nucleated RBC % 0 Sodium 139 Potassium 4.9 Chloride 104 Carbon Dioxide 20.2 L Anion Gap 15 BUN 67 H Creatinine 3.20 H Estim Creat Clear Calc 19.95 L Est GFR (MDRD) Non-Af 19 L BUN/Creatinine Ratio 21.0 H Glucose 212 H Calcium 8.9 Troponin T High Sens 142 H* [place] [address] H Radiography Chest X-Ray - ED: 2 View, Read by ED Physician, Read by Radiologist, Heart, Mediastinum, Bony Structures, Chronic Changes and CHF Diagnostic Testing: Clinical Impression(s) from Imaging Studies Chest X-Ray 02/23/25 08:46 IMPRESSION: Central vascularity appears increased. There are interstitial infiltrates in the perihilar region on the right and left. Reading Location: [facility] She was history, 2 views, AP and lateral, interpreted by by myself the radiologist shows a prior CABG with sternal wires. Normal cardiac silhouette. Bilateral pulmonary edema consistent with CHF. Rhythm Strip Rhythm Strip: Sinus Rhythm Rate: 83 Ectopy: None EKG Initial EKG: Attestation: I personally reviewed and interpreted this EKG as follows: Interpretation: Sinus Rhythm and No Acute Injury Pattern Comments: Normal sinus rhythm rate 83 no acute signs of IL or ischemia. Critical Care Time Critical Care Time: Yes Critical care time (excluding procedures): 30-74 minutes, Including time spent:,Discussing w/Patient &/or Family/Locomotive Boilermaker, Discussing w/Consultants, ArrangingAdmission or Transfer, Performing Direct Patient Care at Bedside and - (35 minutes) Discharge Plan Triage Chief Complaint: Shortness of Breath ED Provider: Ayaz Hendrickson Dx/Rx/DC Orders Clinical Impression: Acute dyspnea, Chronic kidney disease, Hypoxia, CHF (congestive heart failure),Anemia, History of aortic stenosis, History of diabetes mellitus Prescriptions: No Action insulin glargine [Lantus U-100 Insulin] 100 unit/mL solution 15 unit SC DAILY atorvastatin 40 mg tablet 40 mg PO QHS Qty: 30 11RF ezetimibe [Zetia] 10 mg tablet 10 mg PO DAILY minoxidil 2.5 mg tablet 5 mg PO DAILY carvedilol 25 mg tablet 25 mg PO BID Rx Instructions: must administer with a meal/food Jardiance 25 mg tablet 12.5 mg PO DAILY aspirin [Adult Aspirin Regimen] 81 mg tablet,delayed release (DR/EC) 81 mg PO DAILY isosorbide mononitrate 30 mg tablet extended release 24 hr 30 mg PO DAILY Qty: 30 12RF chlorthalidone 25 mg tablet 25 mg PO DAILY [facility] Provider[facility] - Print Language: Russian What to do if you have Problems For any increased pain, shortness of breath, bleeding, nausea or vomiting, chestpain, or any unexpected problems, contact your Primary Care Provider. Call [facility] ([phone]) or report to the closest Emergency Room. Call 911 if necessary. 02/23/25 1513 <Electronically signed by Ayaz Hendrickson MD> Cosigner Signature (if applicable): CC: [facility] ~ Signed [facility] Work Phone: [phone] 184-218608-19-2025 History and physical note [facility] Medical Records Department [address] [place] [address] H&P Exam - Hospitalist 02/23/25 1022 MR#: [id number] Acct: [id number] Name: SAM VIDALES Rep #:[id number] : 1950 74 From: Lana Menjivar MD PCP: [facility] Status:ADM IN Location: ICU CVICU20 1- HPI - General General Date of Admission: 02/23/25 Date of Service: 02/23/25 Chief Complaint: shortness of breath HPI Narrative SAM VIDALES, is a 74 M with a PMH as outlined who presents via the ED on 02/23/2025 with a complaint of shortness of breath. He has a history of severe aortic stenosis, and was recently seen about a week ago and managed for acute hypoxic respiratory failure due to acute heart failure and severe aortic stenosis. He was intubated during that admission and had a cardiac cath which showed clean coronaries. He was discharged home, to follow with cardiology and to be set up for TAVR. However he said he started feeling short of breath againovernight. He denied any chest pain or palpitations, dizziness, nausea vomitingor any other symptoms. Of note to the most recent admission records and a different visit number and efforts have been made to currently merge those visits. Vitals in the ED were blood pressure of 139/74, pulse rate of 73, respiratory rate of 19 and temperature of 97.1 Fahrenheit. He was saturating at 100% on BIPAP. BiPAP CBC showed hemoglobin of 10.8 with WBC of 10 and platelets of 274. Chemistry showed sodium of 139 with potassium of 4.9 and creatinine of 3.2. Initial troponin was 142. proBNP was [address]. chest x-ray showed central vascularity which appeared increase in interstitial infiltrates in the perihilarregion on the right and left. He is being admitted to be mnaged for acute hypoxic respiratory failure due to acute exacerbation of HFpEF in the setting ofsevere aortic stenosis. [facility] Medical History Abnormal stress test Essential hypertension Claudication of lower extremity Non-rheumatic aortic stenosis Atherosclerosis of coronary artery of [place] heart without angina pectoris Hyperlipidemia Type 2 diabetes mellitus without complications DDD (degenerative disc disease), lumbar Spinal stenosis of lumbar region without neurogenic claudication Spondylosis of lumbosacral region without myelopathy or radiculopathy Spondylosis without myelopathy or radiculopathy, lumbar region Other spondylosis, lumbar region Other intervertebral disc displacement, lumbosacral region Other intervertebral disc degeneration, lumbar region Home Medications ?Medication ?Instructions ?Recorded ?Last Taken ?Type atorvastatin 40 mg tablet 40 mg PO QHS #30 tabs Unknown Rx aspirin 81 mg tablet,delayed 81 mg PO DAILY 06/14/21 U nknown History release (Adult Aspirin Regimen) ezetimibe 10 mg tablet (Zetia) 10 mg PO DAILY 10/09/21 Unknown History insulin glargine 100 unit/mL 15 unit subcut DAILY 10/27 Unknown History subcutaneous solution (Lantus U-100 Insulin) isosorbide mononitrate 30 mg 30 mg PO DAILY #30 tabs 0 01/05/22 Unknown Rx tablet,extended release 24 hr minoxidil 2.5 mg tablet 5 mg PO DAILY 04/30/22 Unkno wn History empagliflozin 25 mg tablet 12.5 mg PO DAILY 11/29/22 U nknown History (Jardiance) carvedilol 25 mg tablet 25 mg PO BID 07/19/23 Unknow n History chlorthalidone 25 mg tablet 25 mg PO DAILY 07/19/23 Un known History Allergy/AdvReac Type Severity Reaction Status Date / Time lisinopril AdvReac Mild cough Verified 02/23/25 08:16 Family History Sister Heart disease Daughter Heart disease Surgical History S/P lumbar laminectomy H/O coronary artery bypass surgery (08/06/16) Social History Smoking Status: Former smoker how long ago did patient quit smokin alcohol intake: current alcohol intake frequency: holidays/special occasions only details: <1x/month substance use type: does not use caffeine: Yes Type: coffee Number of servings: 5 ROS Constitutional Constitutional: Reports malaise and weakness; Denies anorexia, fatigue or fever(s) Eyes Eyes: Denies change in vision ENT HEENT: Denies dysphagia, headache(s) or sore throat Cardiovascular Cardiovascular: Reports dyspnea on exertion, edema, orthopnea and paroxysmal nocturnal dyspnea; Denies chest pain, palpitations, rapid heart rate or syncope Respiratory/Chest Respiratory/Chest: Reports dyspnea, shortness of breath at rest and shortness ofbreath with exertion; Denies cough, productive cough or wheezing Gastrointestinal Gastrointestinal: Denies abdominal pain, constipation, diarrhea, nausea or vomiting Genitourinary Genitourinary: Denies dysuria Neurologic Neurologic: Denies confusion, focal weakness, headache(s), numbness, seizures orsyncope Psychiatric Psychiatric: Denies anxiety Vital Signs Vital Signs Vital Signs: 02/23/25 08:14 02/23/25 08:42 02/23/25 08:44 Temperature 98.3 F 98.3 F Temperature Source Oral Oral Pulse Rate 88 81 Respiratory Rate 17 28 H Respiratory Effort Respiratory Depth Respiratory Pattern Blood Pressure 174/84 H 180/82 H Blood Pressure Mean 114 114 Pulse Ox 94 95 93 Oxygen Delivery Method Room Air Room Air Nasal Cannula Oxygen Flow Rate (L/min) 2 Fraction of Inspired Oxygen (FIO2) 02/23/25 08:46 02/23/25 09:33 02/23/25 10:18 Temperature 97.1 F L Temperature Source Temporal Pulse Rate 94 73 Respiratory Rate 35 H 19 H Respiratory Effort Short of Breath Labored Accessory Muscle Use Respiratory Depth Deep Respiratory Pattern Tachypnea Normal Blood Pressure 139/74 H Blood Pressure Mean 95 Pulse Ox 94 100 Oxygen Delivery Method Nasal Cannula Bi-pap Oxygen Flow Rate (L/min) 2 Fraction of Inspired Oxygen (FIO2) 80 02/23/25 10:19 Temperature 97.1 F L Temperature Source Pulse Rate 73 Respiratory Rate 19 H Respiratory Effort Respiratory Depth Respiratory Pattern Blood Pressure 139/74 H Blood Pressure Mean 95 Pulse Ox 100 Oxygen Delivery Method Oxygen Flow Rate (L/min) Fraction of Inspired Oxygen (FIO2) Weight Weight: 173 lb Body Mass Index (BMI) 25.5 Physical Exam Const alert, oriented x3 and no apparent distress General Appearance: cooperative HEENT normocephalic, head/scalp atraumatic, moist oral mucous membranes and oropharynxnormal Mouth: oral and palatal mucosa normal Eyes EOMs intact bilaterally and conjunctivae normal Neck supple and no JVD Resp Resp Narrative: on BIPAP. diminished breath sounds bibasally, no wheezes or crackles. Cardio regular rate, regular rhythm, S1 normal heart sound, S2 normal heart sound and no murmurs GI normal to inspection, nondistended, normoactive bowel sounds, soft to palpation,non-tender and non-distended Extremity normal to inspection, full ROM and no clubbing, cyanosis or edema Neuro oriented x3, CN's II-XII intact bilaterally and moves all extremities Sensorium / Orientation: awake and alert Motor Exam: strength 5/5 throughout Psych affect normal Results Lab / Micro Data 02/23/25 08:45 02/23/25 08:45 Labs: Laboratory Results - last 24 hr 02/23/25 08:45: WBC 10.0, RBC 3.62 L, Hgb 10.8 L, Hct 32.7 L, MCV 90.3, MCH 29.8, MCHC 33.0, RDW Std Deviation 41.6, RDW Coeff of Samir 12.5, Plt Count 274, MPV 9.6, Immature Gran % (Auto) 0.800, Neut % (Auto) 67.6, Lymph % (Auto) 14.9 L, [place] % (Auto) 7.7, Eos % (Auto) 8.2 H, Baso % (Auto) 0.8, Absolute Neuts (auto) 6.8, Absolute Lymphs (auto) 1.49, Nucleated RBC % 0, Sodium 139, Potassium 4.9, Chloride 104, Carbon Dioxide 20.2 L, Anion Gap 15, BUN 67 H, Creatinine 3.20 H, Estim Creat Clear Calc19.95 L, Est GFR (MDRD) Non-Af 19 L, BUN/Creatinine Ratio 21.0 H, Glucose 212 H, Calcium 8.9, Troponin T High Sens 142H*, [place] [address] H Rhythm Strip Rhythm Strip: Sinus Rhythm Rate: 83 Ectopy: None Imaging Radiology Impression Chest X-Ray 02/23/25 08:46 IMPRESSION: Central vascularity appears increased. There are interstitial infiltrates in the perihilar region on the right and left. Reading [facility] Assessment & Plan Assessment/Plan (1) History of aortic stenosis: (2) Acute respiratory failure with hypoxia: (3) Acute heart failure: PLAN: Plan #Acute hypoxic respiratory failure due to acute on chronic HFrEF in the setting of severe aortic stenosis * patient was recently admitted ~ 1 week ago for acute hypoxic respiratory failure due to acute on chronic HFrEF as well as nonstemi and severe aortic stenosis * he was intubated in the previous admission and on extubation, he had cardiac cath which showed severe aortic stenosis. Records from that admission are under a different visit number and efforts arebeing made to merge that with this visit. * he was discharged home to follow up with cardiology on outpatient basis * He came in today with a complaint of shortness of breath and cough which is productive of clear sputum. He required BIPAP on arrival in the ED. * Initial troponin was 142 and essentially remaiined flat, only getting to 149. * pro BNP was 82582. * admit to the ICU as he is on BIPAP. diurese with IV lasix 40mg bid * titrate oxygen to maintain sats >90%. Hold off on 2D echo as he recently had an echo * cardiology was consulted, but I discussed with the upper doubler animated cartoons painter Dr Mary; he recommended continuing diuresis. He will speak to family about need for diuresis and then follow up with cardiology on outpatient basis for TAVR. Will therefore cancel consult * hold off on critical care consult as patient weaned off BIPAP on admission to ICU to 2L of oxygen * monitor intake and output. Fluid restriction to 1500cc daily. * #JUAN on CKD III * Cr is 3.2. Baseline Cr is ~ 2.7. * being diuresed with IV lasix which may also worsen Cr * nephrology consulted. Results from most recent admission is not seen in the EMR as that visit is still being merged * nephrology consulted. * #CAD; on aspirin, statin and imdur. #Type 2 diabetes mellitus * on lantus 15 units daily. ISS. Accuc hecks ACHS. Hold jardiance. * #Hypertension: on carvedilol, chlorthalidone and minoxidil DVT prophylaxis: lovenox, renally dosed Code status: full code * Patient counseled extensively about different types of CODE STATUS including full code, DNR CCA and DNR CCA. * Patient elects to be full code. * Total xflf-qn-ceax time 16 minutes. # Charges/Coding Visit Charges Inpatient E&M: 41675 Init Hosp L3 Procedures Hospitalists Procedures: 78131 Advncd Care Plan 30 Min 02/23/25 1611 Cosigner Signature (if applicable): CC: Dr. Lana Menjivar MD; [facility]~ Signed [facility]08-19-2025 Discharge summary [facility] Medical Records Department [address] [place] [address] Emergency Department Summary 02/23/25 MR#: [id number] Acct: [id number] Name: SAM VIDALES Rep #:[id number] : 1950 74 From: Ayaz Hendrickson MD PCP: [facility] Status:ADM IN Location: ICU CVICU20 1-1 HPI History of Present Illness Chief Complaint: Shortness of Breath Informant: patient Onset/Context/Timing Onset: Today and Yesterday Context: gradual Quality: Positive for Dyspnea on exertion Current Severity: Mild Maximum Severity: Mild Associated Symptoms cough Chest Pain: Positive for None Narrative Narrative: 74-year-old male history of diabetes aortic stenosis, recent heart cath, aortic stenosis and he is on aspirin but no other blood thinners. In a recent hospitalization a week ago I believe is intubated on the ventilator for congestive heartfailure. He was just discharged this past Saturday and he says he feels short of breath yesterday today primarily with exertion. No chest pain. No fever. He had a cough but said that is resolving. PE Risk Factors: Positive for Recent immobilization; Negative for Cancer, OCP + Smoking + > 35, Prior DVT or PE, Recent surgery or Recent travel Prior similar symptoms: Yes Recent [facility] Medical History Abnormal stress test Essential hypertension Claudication of lower extremity Non-rheumatic aortic stenosis Atherosclerosis of coronary artery of [place] heart without angina pectoris Hyperlipidemia Type 2 diabetes mellitus without complications DDD (degenerative disc disease), lumbar Spinal stenosis of lumbar region without neurogenic claudication Spondylosis of lumbosacral region without myelopathy or radiculopathy Spondylosis without myelopathy or radiculopathy, lumbar region Other spondylosis, lumbar region Other intervertebral disc displacement, lumbosacral region Other intervertebral disc degeneration, lumbar region Home Medications ?Medication ?Instructions ?Recorded ?Last Taken ?Type atorvastatin 40 mg tablet 40 mg PO QHS #30 tabs Unknown Rx aspirin 81 mg tablet,delayed 81 mg PO DAILY 06/14/21 U nknown History release (Adult Aspirin Regimen) ezetimibe 10 mg tablet (Zetia) 10 mg PO DAILY 10/09/21 Unknown History insulin glargine 100 unit/mL 15 unit subcut DAILY 10/27 Unknown History subcutaneous solution (Lantus U-100 Insulin) isosorbide mononitrate 30 mg 30 mg PO DAILY #30 tabs 0 01/05/22 Unknown Rx tablet,extended release 24 hr minoxidil 2.5 mg tablet 5 mg PO DAILY 04/30/22 Unkno wn History empagliflozin 25 mg tablet 12.5 mg PO DAILY 11/29/22 U nknown History (Jardiance) carvedilol 25 mg tablet 25 mg PO BID 07/19/23 Unknow n History chlorthalidone 25 mg tablet 25 mg PO DAILY 07/19/23 Un known History Allergy/AdvReac Type Severity Reaction Status Date / Time lisinopril AdvReac Mild cough Verified 02/23/25 08:16 Family History Sister Heart disease Daughter Heart disease Surgical History S/P lumbar laminectomy H/O coronary artery bypass surgery (08/06/16) Social History Smoking Status: Former smoker how long ago did patient quit smokin alcohol intake: current alcohol intake frequency: holidays/special occasions only details: <1x/month substance use type: does not use caffeine: Yes Type: coffee Number of servings: 5 ROS ROS ED ROS Narrative Shortness of breath. Constitutional Constitutional ED: Denies chills or fever(s) Eyes Eyes: Denies blurry vision ENT ENT ED: Denies ear pain Cardiovascular Cardiovascular: Denies chest pain Respiratory/Chest Respiratory/Chest: Reports cough Gastrointestinal Gastrointestinal: Denies abdominal pain Genitourinary Genitourinary ED: Denies dysuria or hematuria Musculoskeletal Musculoskeletal: Denies arthralgias Integumentary Denies abscess Neurologic Neurologic: Denies headache(s) Psychiatric Psychiatric: Denies anxiety Endocrine Endocrinology: Denies cold intolerance Hematologic/Lymphatic Hematologic/Lymphatic: Denies easy bleeding, easy bruising or lymphadenopathy Allergic/Immunologic Allergic/Immunologic ED: Denies mouth swelling, tongue swelling or urticaria EXAM Physical Exam Narrative Exam Narrative: Well-appearing 74-year-old male sitting upright in bed. Vital signs stable afebrile 94% pulse ox onroom air. Currently is on oxygen. No distress. at bedside. H EENT exam pupils round react light. Moist pink membranes. Neck nontender no JVD. No lymphadenopathy. Lungs coarse breath sounds bilaterally. No rales or rhonchi. Equal symmetrical. Heart regular rhythm rate about 90 5/6systolic ejection murmur history of aortic stenosis. Chest wall ribs nontender. Abdomen soft nontender. Back nontender. Moving all 4 extremities. Normal strength. Nontender no edema. Calves are nontender without cords. Neurologically is awake alert. Answering questions following commands. No focal motor deficits. Const Vital Signs: 02/23/25 08:14 02/23/25 08:42 02/23/25 08:44 Temperature 98.3 F 98.3 F Temperature Source Oral Oral Pulse Rate 88 81 Respiratory Rate 17 28 H Respiratory Effort Respiratory Depth Respiratory Pattern Blood Pressure 174/84 H 180/82 H Blood Pressure Mean 114 114 Pulse Ox 94 95 93 Oxygen Delivery Method Room Air Room Air Nasal Cannula Oxygen Flow Rate (L/min) 2 Fraction of Inspired Oxygen (FIO2) 02/23/25 08:46 02/23/25 09:33 Temperature Temperature Source Pulse Rate 94 Respiratory Rate 35 H Respiratory Effort Short of Breath Labored Accessory Muscle Use Respiratory Depth Deep Respiratory Pattern Tachypnea Normal Blood Pressure Blood Pressure Mean Pulse Ox 94 Oxygen Delivery Method Nasal Cannula Oxygen Flow Rate (L/min) 2 Fraction of Inspired Oxygen (FIO2) 80 Positive well nourished and well developed; Negative for obese, cachectic, contractures or unkempt General Appearance ED: well developed and NAD; Negative for unkempt, cachectic, contractures or pallor Nutritional Appearance: Negative for cachectic or obese HEENT Reports moist mucous membranes atraumatic; Negative for trauma or tenderness Eyes PERRL and EOMs intact bilaterally General Eye ED: Negative for pale conjunctiva or scleral icterus Neck no lymphadenopathy, supple, no meningeal signs and no JVD Resp normal respiratory effort and No clear to auscultation bilaterally Resp Narrative: Coarse breath sounds bilaterally. Auscultation: Negative for rales, rhonchi or wheezes Cardio regular rate, regular rhythm, S1 normal heart sound, S2 normal heart sound and no murmurs GI non-tender, non-distended and no masses Auscultation: normoactive bowel sounds Palpation: soft; Negative for tender, guarding or rebound tenderness present Back/Spine no CVA tenderness and normal to inspection General Back: Negative for CVA tenderness Extremity normal to inspection General Extremety ED: Negative for edema, tenderness or other findings General Extremity: Negative for edema or other findings Neuro oriented x3 and CN's II-XII intact bilaterally Sensorium / Orientation: alert, oriented to person, oriented to place and oriented to time; Negative for orientation impaired, confused, lethargic or stuporous Speech: speech normal Motor Exam: strength 5/5 throughout Psych mental status grossly normal Appearance: Negative for unkempt Attitude: No agitated Mood & Affect: Negative for depressed Thought Process: normal thought process Skin no wounds and skin turgor normal General Skin Exam: Negative for jaundice or pallor Lesions: no lesions Rashes: no rashes Trauma: Negative for abrasion or laceration MDM MDM MDM Narrative Medical decision making narrative: 74-year-old male shortness of breath well-established cardiac history with history of aortic stenosis. Differential includes CHF, pneumonia, pleural effusion, IL, etc. Clinically does not sound like a pulmonary emboli. Chest x- ray and labs will be obtained. Patient's O2 sat dropped to about 75 while on 2 evaluations of his placed on BiPAP currently is much more comfortable on the BiPAP. Will be admitted for CHF. He was given IV Lasix 40 mg. History & Record Review Discussion w/independent historian: Patient and Family Additional record(s) reviewed:: Prior outpatient record, Prior ED visit and Prior labs Lab Data Attestation: I reviewed the patient's lab results. Lab results narrative: CBC shows a white count of 10. H&H of 10.8 and 32. Platelets 274. Electrolytes show a gap of 15. BUN and creatinine of 67 and 3.2 send chronic renal insufficiency. Glucose 212. BNP is 10,594. Initial troponin is 142. Labs: Laboratory Results - last 24 hr 02/23/25 08:45 WBC 10.0 RBC 3.62 L Hgb 10.8 L Hct 32.7 L MCV 90.3 MCH 29.8 MCHC 33.0 RDW Std Deviation 41.6 RDW Coeff of Samir 12.5 Plt Count 274 MPV 9.6 Immature Gran % (Auto) 0.800 Neut % (Auto) 67.6 Lymph % (Auto) 14.9 L [place] % (Auto) 7.7 Eos % (Auto) 8.2 H Baso % (Auto) 0.8 Absolute Neuts (auto) 6.8 Absolute Lymphs (auto) 1.49 Nucleated RBC % 0 Sodium 139 Potassium 4.9 Chloride 104 Carbon Dioxide 20.2 L Anion Gap 15 BUN 67 H Creatinine 3.20 H Estim Creat Clear Calc 19.95 L Est GFR (MDRD) Non-Af 19 L BUN/Creatinine Ratio 21.0 H Glucose 212 H Calcium 8.9 Troponin T High Sens 142 H* [place] [address] H Radiography Chest X-Ray - ED: 2 View, Read by ED Physician, Read by Radiologist, Heart, Mediastinum, Bony Structures, Chronic Changes and CHF Diagnostic Testing: Clinical Impression(s) from Imaging Studies Chest X-Ray 02/23/25 08:46 IMPRESSION: Central vascularity appears increased. There are interstitial infiltrates in the perihilar region on the right and left. Reading Location: [facility] She was history, 2 views, AP and lateral, interpreted by by myself the radiologist shows a prior CABG with sternal wires. Normal cardiac silhouette. Bilateral pulmonary edema consistent with CHF. Rhythm Strip Rhythm Strip: Sinus Rhythm Rate: 83 Ectopy: None EKG Initial EKG: Attestation: I personally reviewed and interpreted this EKG as follows: Interpretation: Sinus Rhythm and No Acute Injury Pattern Comments: Normal sinus rhythm rate 83 no acute signs of IL or ischemia. Critical Care Time Critical Care Time: Yes Critical care time (excluding procedures): 30-74 minutes, Including time spent:,Discussing w/Patient &/or Family/Locomotive Boilermaker, Discussing w/Consultants, ArrangingAdmission or Transfer, Performing Direct Patient Care at Bedside and - (35 minutes) Discharge Plan Triage Chief Complaint: Shortness of Breath ED Provider: Ayaz Hendrcikson Dx/Rx/DC Orders Clinical Impression: Acute dyspnea, Chronic kidney disease, Hypoxia, CHF (congestive heart failure),Anemia, History of aortic stenosis, History of diabetes mellitus Prescriptions: No Action insulin glargine [Lantus U-100 Insulin] 100 unit/mL solution 15 unit SC DAILY atorvastatin 40 mg tablet 40 mg PO QHS Qty: 30 11RF ezetimibe [Zetia] 10 mg tablet 10 mg PO DAILY minoxidil 2.5 mg tablet 5 mg PO DAILY carvedilol 25 mg tablet 25 mg PO BID Rx Instructions: must administer with a meal/food Jardiance 25 mg tablet 12.5 mg PO DAILY aspirin [Adult Aspirin Regimen] 81 mg tablet,delayed release (DR/EC) 81 mg PO DAILY isosorbide mononitrate 30 mg tablet extended release 24 hr 30 mg PO DAILY Qty: 30 12RF chlorthalidone 25 mg tablet 25 mg PO DAILY [facility] Provider[facility] Referrals: [facility] [Primary Care Provider] - Print Language: Russian What to do if you have Problems For any increased pain, shortness of breath, bleeding, nausea or vomiting, chestpain, or any unexpected problems, contact your Primary Care Provider. Call [facility] ([phone]) or report tothe closest Emergency Room. Call 911 if necessary. 02/23/25 1513 Cosigner Signature (if applicable): CC: [facility] ~ Signed [facility]08-19-2025 Evaluation note* Diagnosis Onset Date Resolution Status Admit Date Acute dyspnea acute February 10:38am Acute heart failure acute Augus t 2024 10:38am Acute respiratory failure wi th hypoxia acute February 23 10:38am Anemia acute February 23 10:38am CHF (congestive heart failure) acute February 23, 2025 10:38am History of aortic stenosis acute February 23, 2025 10:38am History of diabetes mellitus acute February 23, 2025 10:38am Hypoxia acute February 23 10:38am Chronic kidney disease chronic [facility] 2024 10:38am [facility] Work Phone: 1(349) 313-523608-19-2025 Radiology Diagnostic study note [facility] Imaging Services [address] [place] [address] Chest PA and Lateral MR#: [id number] Acct: [id number] Name: SAM VIDALES Rep #: [id number] : 1950 M 74 From: Sara Silva MD PCP: [facility] Status: REG ER Study:Chest PA and Lateral Date of Exam: 02/23/25 Exam# [id number] Ordering Dr: Trae Hendrickson MD PROCEDURE: CHEST PA AND LATERAL 02/23/2025 REASON FOR EXAM: DYSPNEA TECHNIQUE: CHEST PA AND LATERAL COMPARISON: July 24, 2024 FINDINGS: Sternotomy wires are noted. Heart size is within normal limits. Central vascularity appears increased. There are interstitial infiltrates in the perihilar region on the right and left. There is no pneumothorax or effusion. There is no acute bony abnormality. Aortic calcifications are noted. RAD/Chest PA and Lateral IMPRESSION: Central vascularity appears increased. There are interstitial infiltrates in the perihilar region on the right and left. Reading Location: [facility] CC: Dr. Ayaz Hendrickson MD; [facility] ~ [employer] Scrubber Operator: Signed [facility]08-13-2025 Discharge summary Author Lana Menjivar [facility] Note Date/Time February 17, 2025 4: 15pm [facility] Medical Records Department [address] [place] [address] Instructions for Home/Discharge Instructions 02/17/25 1614 MR#: [id number] Acct: [id number] Name: SAM VIDALES Rep #:[id number] : 1950 74 From: Lana Menjivar MD [facility]CP: [facility] Status:ADM IN Discharge Instructions DC O2, CPAP, BIPAP needs Home O2 Discharge instructions: No Dressing / Incision Discharge Activity: Return to Normal Activity Weight Bearing Status: Weight bearing as tolerated Dressing / Incision Call your doctor if you observe: Fever of 101 or Higher, Shortness of breath, Dizziness, Swelling in the ankles and Chest pain Follow Up Care Test Results: Test results from this visit will be discussed in further detail at your follow- up appointment, if applicable. Discharge Plan Admission Admit Date/Time: 02/12/25 20:25 Primary Reason for Your Visit: severe aortic stenosis, acute hypoxic respriratory failure Attending Provider: Lana Menjivar Primary Care Provider: [facility] Consulting Providers: Vandana Bro; Deanne Medley; Harvey Mckeon; Steven Boyd; Toi David; Boom Garg; Jony tSeel; Avery Gaona; Carter Tripp; Mikayla Chavez; Jesus Grant; Nir Mccarthy; Cole Christie; Juliet Sapp; Ирина Herrera; Teagan Enriquez; Johann Kern; Jakub Malone; Isidoro Solitario; Merrick Jimenez; Marcello Rubio; Sonya Vazquez; Juliocesar Cao; Markell Romo; Jan Yen; Amebr Bryant Instructions Patient Instructions: Coping with Kidney Failure, Acute Kidney Failure Dc Additional Instructions / Restrictions: to see PCP/electrician substation for follow up BMP within one week. Discharge Orders/Prescriptions Prescriptions: Continued isosorbide mononitrate 30 mg tablet extended release 24 hr 30 mg PO DAILY minoxidil 2.5 mg tablet 5 mg PO BID atorvastatin [Lipitor] 40 mg tablet 40 mg PO DAILY ezetimibe 10 mg tablet 10 mg PO DAILY carvedilol 25 mg tablet 25 mg PO DAILY Rx Instructions: must administer with a meal/food felodipine 10 mg tablet extended release 24 hr 10 mg PO DAILY dulaglutide 0.75 mg/0.5 mL pen injector 0.75 mg subcut QWEEK insulin glargine [Denisaaglsharyn LaraPen U-100 Insulin] 100 unit/mL (3 mL) insulin pen 28 unit subcut DAILY olopatadine 0.7 % drops 1 drp EACH EYE DAILY empagliflozin 25 mg tablet 25 mg PO DAILY Referrals / Follow Up: Rah Mary MD [Med Staff - Active Staff] - 03/03/25 10:00 am (APPOINTMENT WITHMANGO Ramos.PVincenzo) Sunshine Nesbitt MD [Med Staff - Consulting] - Within 1 Week [facility] [Primary Care Provider] - Within 1 Week Disposition Disposition (needs filled in before D/C Order can be placed): Home, Self Care 02/17/25 1615<Electronically signed by Lana Menjivar MD>Lana Menjivar MD CC: Dr. Steven Boyd MD; Dr. Harvey Mckeon MD; Dr. Vandana Bro MD; Dr. Toi David MD; Dr. Jony Steel MD; Dr. Boom Garg DO; Dr. Avery Gaona MD; Dr. Deanne Medley MD; Dr. Carter Tripp MD; Dr. Jesus Grant MD;Dr. Nir Mccarthy MD; Dr. Cole Christie MD; Dr. Juliet Sapp MD; Dr. Ирина Herrera MD; Dr. Teagan Enriquez MD; Dr. Amber Bryant MD; Dr. Jakub Malone MD; Dr. Johann Kern MD; Dr. Isidoro Solitario MD; Dr. Sonya Vazquez MD; Dr. Marcello Rubio MD; Dr. Merrick Jimenez DO; Dr. Juliocesar Cao DO; Dr. Markell Romo MD; Dr. Jan Yen MD; Dr. Mikayla Chavez MD; [facility] ~ Signed [facility] Work Phone: 1(297) 574-693108-13-2025 Discharge summary [facility] Medical Records Department [address] [place] [address] Discharge Summary 02/17/25 5129 MR#: [id number] Acct: [id number] Name: SAM VIDALES Rep #:[id number] : 1950 74 From: Lana Menjivar MD [facility]CP: [facility] Status:ADM IN Location: [facility] [id number] Providers Date of Admission: 02/12/25 Date of Discharge: 02/17/25 Primary Care Physician: [facility] Consultations 02/12/25 22:09 Consult: Cardiology Routine Consulting Provider: Deanne Medley Reason for Consult: Resp failure, HF Exac EMERGENT Consult: No Notified: Yes Date Notified: 02/12/25 Time Notified: 20:27 Method of Notification: Text Consult: Location And Measurement Technician / Pulmonary Medicine Routine Consulting Provider: Intensivists/Pulmonary Med Reason for Consult: Resp failure, suspected HF Exac EMERGENT Consult: No Notified: Yes Date Notified: 02/12/25 Time Notified: 20:29 Method of Notification: Text 02/14/25 14:25 Consult: Nephrology Routine Consulting Provider: Amber Bryant Reason for Consult: JUAN EMERGENT Consult: No Notified: Yes Date Notified: 02/14/25 Time Notified: 14:26 Method of Notification: Text Reason For Visit: RESPIRATORY FAILURE, HF EXACERBATION Diagnosis Discharge Diagnosis (1) JUAN (acute kidney injury): Status: Acute Code(s): N17.9 - Acute kidney failure, unspecified Plan #Acute hypoxic and hypercapnic respiratory failure due to acute decompensated heart failure * self extubated yesterday. transferred out of the ICU. * Critical care on board. * Respiratory panel negative. * Titrate oxygen to maintain saturation above 90%. * breathing treatment with bronchodilators. * off lasix now due to worsening kidney impairment. * proBNP was elevated at 15,846. * on IV vancomycin and zosyn. Blood cultures show no growth after 48 hours. Sputum cultures are negative. Will dc IV antibiotics. * 2D echo showed EF of 55 to 60% with moderate eccentric left ventricular hypertrophy and severe calcific AV stenosis * Now on room air. #Elevated troponins * Initial troponin was 146 and peaked at 167. * said he did not have any chest pain. 2D echo ordered today showed EF of 55 to 60% with no regional wall motion abnormalities and showed severe aortic stenosis * cardiology on board * Had cardiac cath which showed c angiographically normal left main coronary artery with severely diseased left anterior descending artery and patent flores grafts to the mid LAD and obtuse marginal artery. * #Severe aortic stenosis: * As per 2D echo. Cardiology on board. * cardiac cath today showed clean coronaries and severe aortic stenosis. * will need follow up with cardiology on outpatient basis for evaluation for TAVR. * #JUAN on CKD IV with elevated anion gap * CR is further up to 4.45 today, from 4.18 yesterday. * off lasix. off amlodipine and midodrine also per nephrology. * * #History of CAD s/p CABG, on aspirin and ezetimibe. Beta-blockers held due to hypotension. #Hypertension: BP meds currently on hold #Type 2 diabetes mellitus: Oral meds on hold. Insulin sliding scale. Accu-Cheks ACHS. DVT prophylaxis: On heparin Medications at Discharge Home Medications atorvastatin 40 mg tablet (Lipitor) 40 mg PO DAILY Hyperlipidemia 02/13/25 carvedilol 25 mg tablet 25 mg PO DAILY Hypertension 02/13/25 dulaglutide 0.75 mg/0.5 mL subcutaneous pen injector 0.75 mg subcut QWEEK TP2DM 02/13/25 empagliflozin 25 mg tablet 25 mg PO DAILY T2DM 02/13/25 ezetimibe 10 mg tablet 10 mg PO DAILY Hypertension 02/13/25 felodipine 10 mg tablet,extended release 24 hr 10 mg PO DAILY Hypertension 02/13/25 insulin glargine 100 unit/mL (3 mL) subcutaneous pen (Basaglar KwikPen U-100 Insulin) 28 unit subcut DAILY T2DM 02/13/25 isosorbide mononitrate 30 mg tablet,extended release 24 hr 30 mg PO DAILY For Heart 02/13/25 minoxidil 2.5 mg tablet 5 mg PO BID Hypertension 02/13/25 olopatadine 0.7 % eye drops 1 drp EACH EYE DAILY Allergic Conjuctivitis 02/13/25 Hospital Course Operations None Procedures 2-D Echocardiogram and Angiogram Summary of Care Provided Minutes Spent on Discharge: 48 Hospital Course: Patient is a 74-year-old male with past medical history as outlined was admittedto the ED on 02/12/2025 with complaint of fatigue, malaise and acute no shortness of breath on the day of admission. His generalized malaise and fatigue had beengoing on for several days prior to admission. On the day of admission his pulseox read at 80% on room air and he was very diaphoretic and pale. EMS was therefore called and patient was emergently intubated before being brought to the ED. said he had been active for at least 2 to 3 days prior to admission and playing several rounds of golf and carrying heavy cell bags with his only complaint being the generalized fatigue and malaise. As stated in the ED he was satting at 6% on a nonrebreather mask and required 15 L of oxygen was eventually intubated.proBNP was elevated and urinalysis showed cloudy appearing urine with negative nitrites and negative leukocyte esterase. Chest x-ray showed mild vascular congestion with no obvious infiltrate and EKGshowed no acute ST changes. Respiratory panel was negative for COVID, flu and RSV. Hewas admitted and managed for acute hypoxic and hypercapnic respiratory failure due to acute decompensated heart failure. He was diuresed with IV Lasix as proBNP was elevated at 15,846. Initial troponin was 146 and peaked at 167. Creatinine was 3.39 with no known baseline creatinine in the EMR. Nephrology was therefore consulted. He had 2D echo which showed EF of 55 to 60% and severecalcific aortic valve stenosis. Cardiology was also consulted. Patient initially could not tolerate spontaneous breathing trial. Critical care was also consulted. Patient eventually self extubated and interestingly did well. He was started on broad- spectrum antibiotics but these were discontinued after his blood culture showed no growth. He had cardiac cath which showed patent grafts to the mid LAD and the obtuse marginal branch as well as patent graft to the RPDA and the second obtuse marginal arteries. There were findingsof severeaortic valve stenosis. Patient's creatinine started improving slightly and did trend down was a bit. Cardiology recommended that patient could be discharged home to follow-up with them on out patient basis to be evaluated for TAVR. Per nephrology his baseline creatinine was 2.8 in July and admission his creatinine was 3.3. At time of discharge creatinine was 4.38. Patient had beendiuresed per cardiology recommended that patient could be discharged on no diuresis in light of the severe aortic stenosis. Renal ultrasound showed no hydronephrosis or acute pathology. Patient remained stable and was discharged home on 02/17/2025. 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 Cardiology was also okay with him being discharged and he is to follow-up with cardiology on outpatient basis to be evaluated for TAVR. Patient seen and examined prior to discharge. He felt well. I saw him with hisnurse by his bedside.He was comfortably eating breakfast. He had no complaints. Labs and vitals reviewed. Home medication reviewed and reconciled. Physical Exam Const alert and oriented x3 Constitutional Narrative: on room air. General Appearance: cooperative and comfortable HEENT normocephalic, head/scalp atraumatic, hearing grossly normal bilaterally and moist oral mucous membranes Mouth: oral and palatal mucosa normal Eyes PERRL and EOMs intact bilaterally Neck no lymphadenopathy Lymph Lymphatic: no lymphedema noted Resp Resp Narrative: mildly diminished breath sounds bibasally, no wheezes or crackles. On room air. Cardio regular rate, regular rhythm, S1 normal heart sound and S2 normal heart sound GI normal to inspection, nondistended, normoactive bowel sounds, soft to palpation and non-tender Extremity normal to inspection, full ROM, normal capillary refill and no clubbing, cyanosis or edema General Extremity: no tenderness to palpation of joints or extremities Skin General Skin Exam: no breakdown Neuro oriented x3, CN's II-XII intact bilaterally, moves all extremities and no focal motor deficits Motor Exam: general weakness Psych thought process normal and affect normal Appearance: appropriate Weight / BMI Weight Weight: 172 lb 6.4 oz Body Mass Index (BMI) 24.7 ABG / Lab / Microbiology Data 02/17/25 05:44 02/17/25 05:44 Laboratory: Laboratory Results - last 24 hr 02/16/25 21:02: POC Glucose 191 H 02/17/25 05:44: WBC 7.3, RBC 3.35 L, Hgb 10.1 L, Hct 30.1 L, MCV 89.9, MCH 30.1,MCHC 33.6, RDW Std Deviation 42.5, RDW Coeff of Samir 12.9, Plt Count 175, MPV 9.8, Immature Gran % (Auto) 0.300, Neut % (Auto) 62.7, Lymph % (Auto) 15.7 L, [place] % (Auto) 12.9 H, Eos % (Auto) 7.7 H, Baso % (Auto) 0.7, Absolute Neuts (auto) 4.6, Absolute Lymphs (auto) 1.14, Nucleated RBC % 0, PT 14.3, INR 1.1, APTT 31.1,Sodium 141, Potassium 3.5, Chloride 104, Carbon Dioxide 18.7 L, AnionGap 19 H, BUN 79 H, Creatinine4.38 H, Estim Creat Clear Calc 15.05 L, Est GFR (MDRD) Non-Af 13 L, BUN/Creatinine Ratio 17.9, Glucose 168 H, Calcium 8.8 02/17/25 06:40: POC Glucose 158 H 02/17/25 11:31: POC Glucose 206 H 02/17/25 16:53: POC Glucose 177 H Microbiology: Microbiology 02/14/25 08:25 Blood Culture (Wb) - Anticubital Left Blood Culture - Preliminary No growth in 48 hours. 02/12/25 19:55 Sputum, Induced/Lukens Gram Stain - Final 02/12/25 19:55 Sputum, Induced/Lukens Respiratory Culture - Final Mixed normal respiratory elizabeth. No Streptococcus pneumoniae, beta-hemolytic Streptococcus or Staphylococcus aureus isolated. 02/12/25 19:37 Urine, Catheterized Urine Culture - Final Culture exhibits no growth. 02/12/25 19:59 Blood Culture (Wb) - Left Hand Blood Culture - Preliminary No growth in 48 hours. 02/12/25 19:00 Blood Culture (Wb) - Anticubital Right Blood Culture - Preliminary No growth in 48 hours. 02/12/25 22:50 Nasal Secretion MRSA (PCR) - Final 02/12/25 21:10 Mucosa - Nasopharyngeal Respiratory Panel (PCR) - Final 02/12/25 19:17 Mucosa - Nose SARS-CoV-2, Influenza & RSV (PCR) - Final D/C Instructions Discharge Activity: Return to Normal Activity Weight Bearing Status: Weight bearing as tolerated Call your doctor if you observe: Fever of 101 or Higher, Shortness of breath, Dizziness, Swelling in the ankles and Chest pain DC O2, CPAP, BIPAP Needs Home O2 Discharge instructions: No Meaningful Use Info Meaningful Use Meaningful Use Diagnoses (Choose all that apply): CHF CHF ALEXANDREA/ARB ordered at discharge?: No Reason ALEXANDREA/ARB not ordered?: Worsening renal disease Documented LVEF (%): 55 Discharge Plan Admission Admit Date/Time: 02/12/25 20:25 Primary Reason for Your Visit: severe aortic stenosis, acute hypoxic respriratory failure Attending Provider: Lana Menjivar Primary Care Provider: [facility] Consulting Providers: Vandana Bro; Deanne Medley; Harvey Mckeon; Steven Boyd; Toi David; Boom Garg; Jony Steel; Avery Gaona; Carter Tripp; Mikayla Chavez; Jesus Grant; Nir Mccarthy; Cole Christie; Juliet Sapp; Ирина Herrera; Teagan Enriquez; Johann Kern; Jakub Malone; Isidoro Solitario; Merrick Jimenez; Marcello Rubio; Sonya Vazquez; Juliocesar Cao; Markell Romo; Jan Yen; Amber Bryant Instructions Patient Instructions: Coping with Kidney Failure, Acute Kidney Failure Dc Additional Instructions / Restrictions: to see PCP/electrician substation for follow up BMP within one week. Discharge Orders/Prescriptions Prescriptions: Continued isosorbide mononitrate 30 mg tablet extended release 24 hr 30 mg PO DAILY minoxidil 2.5 mg tablet 5 mg PO BID atorvastatin [Lipitor] 40 mg tablet 40 mg PO DAILY ezetimibe 10 mg tablet 10 mg PO DAILY carvedilol 25 mg tablet 25 mg PO DAILY Rx Instructions: must administer with a meal/food felodipine 10 mg tablet extended release 24 hr 10 mg PO DAILY dulaglutide 0.75 mg/0.5 mL pen injector 0.75 mg subcut QWEEK insulin glargine [Basaglar KwikPen U-100 Insulin] 100 unit/mL (3 mL) insulin pen 28 unit subcut DAILY olopatadine 0.7 % drops 1 drp EACH EYE DAILY empagliflozin 25 mg tablet 25 mg PO DAILY Referrals / Follow Up: Rah Mary MD [Med Staff - Active Staff] - 03/03/25 10:00 am (APPOINTMENT WITHMANGO Ramos.P.) Sunshine Nesbitt MD [Med Staff - Consulting] - Within 1 Week [facility] [Primary Care Provider] - Within 1 Week Disposition Disposition (needs filled in before D/C Order can be placed): Home, Self Care Charges/Coding Visit Charges Inpatient E&M: 25055 Disch Hosp >30min 02/17/25 5131 Cosigner Signature (if applicable): CC: Dr. Lana Menjivar MD; [facility]~ Signed [facility]08-13-2025 [facility] Medical Records Department [address] [place] [address] Discharge Summary 02/17/25 1729 MR#: [id number] Acct: [id number] Name: SAM VIDALES Rep #: [id number] : 1950 74 From: Lana Menjivar MD PCP: [facility] Status:ADM IN Location: [facility] [id number] Providers Date of Admission: 02/12/25 Date of Discharge: 02/17/25 Primary Care Physician: [facility] Consultations 02/12/25 22:09 Consult: Cardiology Routine Consulting Provider: Deanne Medley Reason for Consult: Resp failure, HF Exac EMERGENT Consult: No Notified: Yes Date Notified: 02/12/25 Time Notified: 20:27 Method of Notification: Text Consult: Location And Measurement Technician / Pulmonary Medicine Routine Consulting Provider: Intensivists/Pulmonary Med Reason for Consult: Resp failure, suspected HF Exac EMERGENT Consult: No Notified: Yes Date Notified: 02/12/25 Time Notified: 20:29 Method of Notification: Text 02/14/25 14:25 Consult: Nephrology Routine Consulting Provider: Amber Bryant Reason for Consult: JUAN EMERGENT Consult: No Notified: Yes Date Notified: 02/14/25 Time Notified: 14:26 Method of Notification: Text Reason For Visit: RESPIRATORY FAILURE, HF EXACERBATION Diagnosis Discharge Diagnosis (1) JUAN (acute kidney injury): Status: Acute Code(s): N17.9 - Acute kidney failure, unspecified Plan #Acute hypoxic and hypercapnic respiratory failure due to acute decompensated heart failure * self extubated yesterday. transferred out of the ICU. * Critical care on board. * Respiratory panel negative. * Titrate oxygen to maintain saturation above 90%. * breathing treatment with bronchodilators. * off lasix now due to worsening kidney impairment. * proBNP was elevated at 15,846. * on IV vancomycin and zosyn. Blood cultures show no growth after 48 hours. Sputum cultures are negative. Will dc IV antibiotics. * 2D echo showed EF of 55 to 60% with moderate eccentric left ventricular hypertrophy and severe calcific AV stenosis * Now on room air. #Elevated troponins * Initial troponin was 146 and peaked at 167. * said he did not have any chest pain. 2D echo ordered today showed EF of 55 to 60% with no regional wall motion abnormalities and showed severe aortic stenosis * cardiology on board * Had cardiac cath which showed c angiographically normal left main coronary artery with severely diseased left anterior descending artery and patent flores grafts to the mid LAD and obtuse marginal artery. * #Severe aortic stenosis: * As per 2D echo. Cardiology on board. * cardiac cath today showed clean coronaries and severe aortic stenosis. * will need follow up with cardiology on outpatient basis for evaluation for TAVR. * #JUAN on CKD IV with elevated anion gap * CR is further up to 4.45 today, from 4.18 yesterday. * off lasix. off amlodipine and midodrine also per nephrology. * * #History of CAD s/p CABG, on aspirin and ezetimibe. Beta-blockers held due to hypotension. #Hypertension: BP meds currently on hold #Type 2 diabetes mellitus: Oral meds on hold. Insulin sliding scale. Accu-Cheks ACHS. DVT prophylaxis: On heparin Medications at Discharge Home Medications atorvastatin 40 mg tablet (Lipitor) 40 mg PO DAILY Hyperlipidemia 02/13/25 carvedilol 25 mg tablet 25 mg PO DAILY Hypertension 02/13/25 dulaglutide 0.75 mg/0.5 mL subcutaneous pen injector 0.75 mg subcut QWEEK TP2DM 02/13/25 empagliflozin 25 mg tablet 25 mg PO DAILY T2DM 02/13/25 ezetimibe 10 mg tablet 10 mg PO DAILY Hypertension 02/13/25 felodipine 10 mg tablet,extended release 24 hr 10 mg PO DAILY Hypertension 02/13/25 insulin glargine 100 unit/mL (3 mL) subcutaneous pen (Basaglar KwikPen U-100 Insulin) 28 unit subcut DAILY T2DM 02/13/25 isosorbide mononitrate 30 mg tablet,extended release 24 hr 30 mg PO DAILY For Heart 02/13/25 minoxidil 2.5 mg tablet 5 mg PO BID Hypertension 02/13/25 olopatadine 0.7 % eye drops 1 drp EACH EYE DAILY Allergic Conjuctivitis 02/13/25 Hospital Course Operations None Procedures 2-D Echocardiogram and Angiogram Summary of Care Provided Minutes Spent on Discharge: 48 Hospital Course: Patient is a 74-year-old male with past medical history as outlined was admitted to the ED on 02/12/2025 with complaint of fatigue, malaise and acute no shortness of breath on the day of admission. His generalized malaise and fatigue had been going on for several days prior to admission. On the day of admission his pulse ox read at 80% on room air and he was very diaphoretic and pale. EMS was therefore called and patient was emergently intubated before being brought to the ED. said he had been active for at least 2 to 3 days prior to admission and playing several rounds of golf and carrying heavy cell bags with his only complaint being the generalized fatigue and malaise. As stated (more content not included)...[facility] 02-17-2025 [facility]08-13-2025 Discharge summary [facility] Medical Records Department [address] [place] [address] Instructions for Home/Discharge Instructions 02/17/25 1614 MR#: [id number] Acct: [id number] Name: SAM VIDALES Rep #:[id number] : 1950 74 From: Lana Menjivar MD PCP: [facility] Status:ADM IN Discharge Instructions DC O2, CPAP, BIPAP needs Home O2 Discharge instructions: No Dressing / Incision Discharge Activity: Return to Normal Activity Weight Bearing Status: Weight bearing as tolerated Dressing / Incision Call your doctor if you observe: Fever of 101 or Higher, Shortness of breath, Dizziness, Swelling in the ankles and Chest pain Follow Up Care Test Results: Test results from this visit will be discussed in further detail at your follow- up appointment, if applicable. Discharge Plan Admission Admit Date/Time: 02/12/25 20:25 Primary Reason for Your Visit: severe aortic stenosis, acute hypoxic respriratory failure Attending Provider: Lana Menjivar Primary Care Provider: [facility] Consulting Providers: Vandana Bro; Deanne Medley; Harvey Mckeon; Steven Boyd; Toi David; Boom Garg; Jony Steel; Avery Gaona; Carter Tripp; Mikayla Chavez; Jesus Grant; Nir Mccarthy; Cole Christie; Juliet Sapp; Ирина Herrera; Teagan Enriquez; Johann Kern; Jakub Malone; Isidoro Solitario; Merrick Jimenez; Marcello Rubio; Sonya Vazquez; Juliocesar Cao; Markell Romo; Jan Yen; Amber Bryant Instructions Patient Instructions: Coping with Kidney Failure, Acute Kidney Failure Dc Additional Instructions / Restrictions: to see PCP/electrician substation for follow up BMP within one week. Discharge Orders/Prescriptions Prescriptions: Continued isosorbide mononitrate 30 mg tablet extended release 24 hr 30 mg PO DAILY minoxidil 2.5 mg tablet 5 mg PO BID atorvastatin [Lipitor] 40 mg tablet 40 mg PO DAILY ezetimibe 10 mg tablet 10 mg PO DAILY carvedilol 25 mg tablet 25 mg PO DAILY Rx Instructions: must administer with a meal/food felodipine 10 mg tablet extended release 24 hr 10 mg PO DAILY dulaglutide 0.75 mg/0.5 mL pen injector 0.75 mg subcut QWEEK insulin glargine [Basaglar KwikPen U-100 Insulin] 100 unit/mL (3 mL) insulin pen 28 unit subcut DAILY olopatadine 0.7 % drops 1 drp EACH EYE DAILY empagliflozin 25 mg tablet 25 mg PO DAILY Referrals / Follow Up: Rah Mary MD [Med Staff - Active Staff] - 03/03/25 10:00 [facility] Sunshine Nesbitt MD [Med Staff - Consulting] - [facility] Week [facility] - Within 1 Week Disposition Disposition (needs filled in before D/C Order can be placed): Home, Self Care 02/17/25 1615Lana Menjivar MD CC: Dr. Steven Boyd MD; Dr. Havrey Mckeon MD; Dr. Vandana Bro MD; Dr. Toi David MD; Dr.David Andrews Steel MD; Dr. Boom Garg DO; Dr. Avery Gaona MD; Dr. Deanne Medley MD; Dr. Carter Tripp MD; Dr. Jesus Grant MD;Dr. Nir Mccarthy MD; Dr. Cole Christie MD; Dr. Juliet Sapp MD; Dr. Ирина Herrera MD; Dr. Teagan Enriquez MD; Dr. Amber Bryant MD; Dr. Jakub Malone MD; Dr. Johann Kern MD; Dr. Isidoro Solitario MD; Dr. Sonya Vazquez MD; Dr. Marcello Rubio MD; Dr. Merrick Jimenez DO; Dr. Juliocesar Cao DO; Dr. Markell Romo MD; Dr. Jan Yen MD; Dr. Mikayla Chavez MD; [facility]08-13-2025 Hospital Discharge instructionsAdditional Instructions to see PCP/electrician substation for follow up BMP within one week. Date of Discharge: 02/17/25[facility] Work Phone: 1(706) 194-781808-12-2025 Progress note Author Lana [facility] Note Date/Time February 16, 2025 5: 30pm [facility] Medical Records Department [address] [place] [id number] Progress Note 02/16/25 1216 MR#: [id number] Acct: [id number] Name: SAM VIDALES Rep #:[id number] : 1950 74 From: Lana Menjivar MD PCP: [facility] Status:ADM IN Location: [place] [address]- Subjective Subjective Patient seen and examined. He had no active complaints. He had cardiac cath today which showed clean coronaries. I saw him with his nurse by his bedside. His Cr is up to 4.45 today. Review of systems is otherwise negative. Objective Data Objective Data Vital Signs: Vital Signs Temp Pulse Resp BP Pulse Ox O2 Del Method O2 Flow Rate 99.1 F 76 18 142/48 H 96 Room Air 2 02/16/25 03:58 02/16/25 07:00 02/16/25 07:00 02/16/25 03:58 02/16/25 08:00 02/16/25 08:00 02/16/25 03:18 FiO2 25 02/15/25 06:00 Oxygen Flow Rate (L/min) 2 Oxygen Delivery Method Room Air Weight: 171 lb 4.787 oz Body Mass Index (BMI) 24.5 Intake & Output: Intake and Output for Last 24 Hours 02/14/25 02/15/25 02/16/25 23:59 23:59 23:59 Intake Total 1542.72 / 1581.75 917.18 / 917.18 150 / 150 Output Total 4900 / 4900 1300 / 1300 750 / 750 Balance -3357.28 / -3318.25 -382.82 / -382.82 -600 / -600 Lab / Micro Data 02/16/25 05:59 02/16/25 05:59 Labs: Laboratory Results - last 24 hr 02/15/25 12:06: POC Glucose 152 H 02/15/25 17:00: POC Glucose 190 H 02/15/25 22:22: POC Glucose 172 H 02/16/25 05:57: POC Glucose 185 H 02/16/25 05:59: WBC 9.2, RBC 3.60 L, Hgb 10.9 L, Hct 31.5 L, MCV 87.5, MCH 30.3,MCHC 34.6, RDW Std Deviation 42.3, RDW Coeff of Samir 13.1, Plt Count 196, MPV 10.1, Immature Gran % (Auto) 0.300, Neut % (Auto) 67.2, Lymph % (Auto) 13.4 L, [place] % (Auto) 12.2 H, Eos % (Auto) 6.4 H, Baso % (Auto) 0.5, Absolute Neuts (auto) 6.2, Absolute Lymphs (auto) 1.23, Nucleated RBC % 0, Sodium 139, Potassium 3.4, Chloride 99, Carbon Dioxide 20.2 L, Anion Gap 20 H, BUN 76 H, Creatinine 4.45 H, Estim Creat Clear Calc 14.81 L, Est GFR (MDRD) Non-Af 13 L, BUN/Creatinine Ratio 17.2, Glucose 180 H, Calcium 8.7, Random Vancomycin 28.1 H 02/16/25 10:26: POC Glucose 174 H Micro: Microbiology 02/12/25 19:55 Sputum, Induced/Lukens Gram Stain - Final 02/12/25 19:55 Sputum, Induced/Lukens Respiratory Culture - Final Mixed normal respiratory elizabeth. No Streptococcus pneumoniae, beta-hemolytic Streptococcus or Staphylococcus aureus isolated. 02/12/25 19:37 Urine, Catheterized Urine Culture - Final Culture exhibits no growth. 02/12/25 19:59 Blood Culture (Wb) - Left Hand Blood Culture - Preliminary No growth in 48 hours. 02/12/25 19:00 Blood Culture (Wb) - Anticubital Right Blood Culture - Preliminary No growth in 48 hours. 02/12/25 22:50 Nasal Secretion MRSA (PCR) - Final 02/12/25 21:10 Mucosa - Nasopharyngeal Respiratory Panel (PCR) - Final 02/12/25 19:17 Mucosa - Nose SARS-CoV-2, Influenza & RSV (PCR) - Final Rhythm Strip Rhythm Strip: Sinus Rhythm Rate: 78 Ectopy: None Physical Exam Const alert and oriented x3 Constitutional Narrative: on room air. General Appearance: cooperative HEENT normocephalic and moist oral mucous membranes Eyes PERRL and EOMs intact bilaterally Neck no lymphadenopathy Lymph Lymphatic: no lymphedema noted Resp Resp Narrative: mildly diminished breath sounds bibasally, no wheezes or crackles. On room air. Cardio regular rate, regular rhythm, S1 normal heart sound and S2 normal heart sound GI normal to inspection, nondistended, normoactive bowel sounds, soft to palpation and non-tender Extremity normal capillary refill and no clubbing, cyanosis or edema General Extremity: no tenderness to palpation of joints or extremities Skin General Skin Exam: no breakdown Neuro CN's II-XII intact bilaterally and no focal motor deficits Motor Exam: general weakness Psych thought process normal Appearance: appropriate Assessment & Plan Assessment/Plan (1) Congestive heart failure: (2) Respiratory failure: PLAN: Plan #Acute hypoxic and hypercapnic respiratory failure due to acute decompensated heart failure * self extubated yesterday. transferred out of the ICU. * Critical care on board. * Respiratory panel negative. * Titrate oxygen to maintain saturation above 90%. * breathing treatment with bronchodilators. * off lasix now due to worsening kidney impairment. * proBNP was elevated at 15,846. * on IV vancomycin and zosyn. Blood cultures show no growth after 48 hours. Sputum cultures are negative. Will dc IV antibiotics. * 2D echo showed EF of 55 to 60% with moderate eccentric left ventricular hypertrophy and severe calcific AV stenosis * Now on room air. #Elevated troponins * Initial troponin was 146 and peaked at 167. * said he did not have any chest pain. 2D echo ordered today showed EF of 55 to 60% with no regional wall motion abnormalities and showed severe aortic stenosis * cardiology on board * Had cardiac cath which showed c angiographically normal left main coronary artery with severely diseased left anterior descending artery and patent flores grafts to the mid LAD and obtuse marginal artery. * #Severe aortic stenosis: * As per 2D echo. Cardiology on board. * cardiac cath today showed clean coronaries and severe aortic stenosis. * will need follow up with cardiology on outpatient basis for evaluation for TAVR. * #JUAN on CKD IV with elevated anion gap * CR is further up to 4.45 today, from 4.18 yesterday. * off lasix. off amlodipine and midodrine also per nephrology. * * #History of CAD s/p CABG, on aspirin and ezetimibe. Beta-blockers held due to hypotension. #Hypertension: BP meds currently on hold #Type 2 diabetes mellitus: Oral meds on hold. Insulin sliding scale. Accu-Cheks ACHS. DVT prophylaxis: On heparin Charges/Coding Visit Charges Inpatient E&M: 95742 Subs Hosp L2 02/16/25 1730 <Electronically signed by Lana Menjivar MD> Lana Menjivar MD Cosigner Signature (if applicable): CC: ~ Signed [facility] Work Phone: 1(827) 809-217908-12-2025 Progress note Author Jony Steel [facility] Note Date/Time February 16, 2025 3: 56pm [facility] Medical Records Department [address] [place] [address] Progress Note - Location And Measurement Technician 02/16/25 1551 MR#: [id number] Acct: [id number] Name: SAM VIDALES Rep #:[id number] : 1950 74 From: Jony Valencia PCP: [facility] Status:[facility] Objective Data Objective Data Vital Signs: Vital Signs Last response 3 Temperature 37.3 C 02/16/25 03:58 Temperature Source Oral 02/16/25 03:58 Pulse Rate 78 02/16/25 15:06 Pulse Strength Weak (1+) 02/14/25 10:00 Respiratory Rate 16 02/16/25 15:06 Respiratory Effort Normal 02/16/25 03:18 Respiratory Depth Normal 02/16/25 03:18 Respiratory Pattern Normal 02/16/25 15:06 Blood Pressure 142/48 H 02/16/25 03:58 Blood Pressure Mean 79 02/16/25 03:58 Blood Pressure Source Monitor 02/16/25 03:58 Blood Pressure Position Sitting 02/16/25 03:58 Blood Pressure Location Left Arm 02/16/25 03:58 Pulse Ox 96 02/16/25 08:00 Oxygen Delivery Method Room Air 02/16/25 08:00 Oxygen Flow Rate (L/min) 2 02/16/25 03:18 Fraction of Inspired Oxygen (FIO2) 02/15/25 06:00 I&O: I&O Last 24 Hours 3 02/15/25 02/16/25 02/16/25 23:59 11:59 23:59 Intake Total 250 / 917.18 150 / 200 50 / 200 Output Total 400 / 1300 750 / 750 Balance -150 / -382.82 -600 / -550 50 / -550 I&O: Total Stay 3 02/12/25 18:44 thru 02/16/25 14:09 Intake Total 3418.70 Output Total 41576 Balance -6606.30 Current Meds Ordered / Administered: Current meds ordered / Administered 3 Generic Name Dose Route Start Last Admin Trade Name Freq PRN Reason Stop Dose Admin Acetaminophen 650 mg 02/12/25 22:09 Acetaminophen 650 Mg Suppository RC Q4H PRN PRN Fever, pain 1-10 Acetaminophen 650 mg 02/12/25 22:09 02/15/25 10:55 Acetaminophen 325 Mg Tablet PO 650 mg Q4H PRN PRN Administration Fever, pain 1-10/10 Al Hydroxide/Mg Hydroxide 30 ml 02/12/25 22:09 Mag Hydrox/Al Hydrox/Simeth 30 Ml Udc PO Q6H PRN PRN Gastric Burning Albuterol Sulfate 2.5 mg 02/12/25 22:09 Albuterol 2.5 Mg/3 Ml Vial.Neb. INHALATION Q2H PRN PRN Dyspnea, wheezing Albuterol/Ipratropium 3 ml 02/12/25 22:09 02/16/25 14:50 Ipratropium/Albuterol Sulfate 3 Ml Ampul.Neb INHALATION 3 ml Q4HWA.RT LORIN Administration Atorvastatin Calcium 40 mg 02/14/25 22:00 02/15/25 22:01 Atorvastatin Calcium 40 Mg Tablet PO 40 mg QHS LORIN Administration Calamine/Phenol 1 applic 02/12/25 22:09 02/16/25 11:12 Menthol/Lanolin/Calamine/Znox 113 Gm Tube TOPICAL 1 applic 4X/DAY LORIN Administration Protocol Carvedilol 25 mg 02/14/25 18:15 02/16/25 10:20 Carvedilol 25 Mg Tablet PO 25 mg DAILYCM LORIN Administration Chlorhexidine Gluconate 1 each 02/14/25 10:00 02/16/25 10:22 Chlorhexidine Gluc 2% Cloth 1 Each Towelette TOPICAL 1 each DAILY LORIN Administration Ezetimibe 10 mg 02/15/25 10:00 02/16/25 10:22 Ezetimibe 10 Mg Tablet PO 10 mg DAILY LORIN Administration Guaifenesin 10 ml 02/12/25 22:09 Guaifenesin 10 Ml Udc (200mg/10ml) PO Q4H PRN PRN COUGH Heparin Sodium (Beef Lung) 50 units 02/16/25 09:18 Heparin Pf Lock 10 Units/Ml 50 Units/5 Ml Syringe IV UD PRN Sheath Care Heparin Sodium (Porcine) 5,000 unit 02/12/25 22:09 02/16/25 10:21 Heparin Injection (Vial) 5,000 Unit/Ml Vial SC 5,000 unit Q12 LORIN Administration Hydralazine HCl 10 mg 02/12/25 22:09 02/15/25 05:48 Hydralazine 20 Mg/Ml Vial IV 10 mg Q4H PRN PRN Administration SBP > 160 Protocol Sodium Chloride 250 mls @ 15 mls/hr 02/12/25 22:13 IV .[id number] PRN Saline Flush Sodium Chloride 250 mls @ 15 mls/hr 02/12/25 22:13 IV .[id number] PRN Additional IVPB Infusion Sodium Chloride 1,000 mls @ 15 mls/hr 02/15/25 18:50 02/15/25 21:54 IV Not Given .Q48H LORIN Sodium Chloride 500 mls @ 0 mls/hr 02/16/25 09:20 IV .Q0M LORIN As Directed Sodium Chloride 1,000 mls @ 75 mls/hr 02/16/25 11:15 02/16/25 12:47 IV 02/17/25 00:34 75 mls/hr .[id number] LORIN Administration Insulin Glargine 28 unit 02/17/25 10:00 Insulin Glargine-Yfgn 100 Unit/Ml Pen SC DAILY LORIN Insulin Human Lispro 0 unit 02/16/25 07:00 02/16/25 11:12 Insulin Lispro 100 Unit/Ml Insuln.Pen SC 1 u ACHS [facility] Administration Protocol Isosorbide Mononitrate 30 mg 02/17/25 10:00 Isosorbide Mononitrate 30 Mg Tablet PO DAILY [facility] Protocol Melatonin 3 mg 02/12/25 22:09 Melatonin 3 Mg Tablet PO QHS PRN PRN INSOMNIA Nitroglycerin 0.4 mg 02/12/25 22:09 Nitroglycerin (Inpatient Use) 0.4 Mg Tab.Subl SL Q5M PRN CARDIAC/CHEST PAIN Ondansetron HCl 4 mg 02/12/25 22:09 Ondansetron 4 Mg/2 Ml Vial IV Q8H PRN PRN NAUSEA/VOMITING Pantoprazole Sodium 40 mg 02/17/25 10:00 Pantoprazole Sodium 40 Mg Tablet PO DAILY [facility] Senna/Docusate Sodium 2 tablet 02/12/25 22:09 Senna/Docusate Sodium 1 Tablet PO BID PRN PRN Constipation Sodium Chloride 5 ml 02/12/25 22:09 Sodium Cl For Inhalation 15 Ml Vial.Neb. INHALATION Q5M PRN Suctioning Sodium Chloride 10 - 40 ml 02/12/25 22:13 02/15/25 17:04 0.9% Saline Lock 10 Ml Syringe IV 30 ml UD PRN Administration SALINE FLUSH Lab / Micro Data 02/16/25 05:59 02/16/25 05:59 Labs: Laboratory Results - last 24 hr 02/15/25 17:00: POC Glucose 190 H 02/15/25 22:22: POC Glucose 172 H 02/16/25 05:57: POC Glucose 185 H 02/16/25 05:59: WBC 9.2, RBC 3.60 L, Hgb 10.9 L, Hct 31.5 L, MCV 87.5, MCH 30.3,MCHC 34.6, RDW Std Deviation 42.3, RDW Coeff of Samir 13.1, Plt Count 196, MPV 10.1, Immature Gran % (Auto) 0.300, Neut % (Auto) 67.2, Lymph % (Auto) 13.4 L, [place] % (Auto) 12.2 H, Eos % (Auto) 6.4 H, Baso % (Auto) 0.5, Absolute Neuts (auto) 6.2, Absolute Lymphs (auto) 1.23, Nucleated RBC % 0, Sodium 139, Potassium 3.4, Chloride 99, Carbon Dioxide 20.2 L, Anion Gap 20 H, BUN 76 H, Creatinine 4.45 H, Estim Creat Clear Calc 14.81 L, Est GFR (MDRD) Non-Af 13 L, BUN/Creatinine Ratio 17.2, Glucose 180 H, Calcium 8.7, Random Vancomycin 28.1 H 02/16/25 10:26: POC Glucose 174 H Micro: Microbiology 02/14/25 08:25 Blood Culture (Wb) - Anticubital Left Blood Culture - Preliminary No growth in 48 hours. Rhythm Strip Rhythm Strip: Sinus Rhythm Rate: 78 Ectopy: None Assessment and Plan . Assessment and plan: Heart Failure Due to Valvular Heart Disease CAD s/p CABG Respiratory Failure (resolved) -planning underway for possible high-risk TAVR -doing well from respiratory standpoint The entirety of this encounter was done via Telemedicine Physical Exam Narrative G- A&O x 3, NAD ENT- Sclera anicteric, AT/NC CV- rrr, + m, no rg L- CTAB with good air movement and symmetric chest excursion Ab- s nt nd + bs, no cce Ext- no cce Neuro- no focal deficits Subjective Subjective Feeling much better. Awaiting final plans from cardiology service re: . Reports he had asthma and hay fever as a child. 02/16/25 3621 <Electronically signed by Jony Steel MD> Cosigner Signature (if applicable): CC: ~ Signed [facility] Work Phone: 1(828) 137-750208-12-2025 Progress note [facility] Medical Records Department [address] [place] [address] Progress Note 02/16/25 1216 MR#: [id number] Acct: [id number] Name: SAM VIDALES Rep #:[id number] : 1950 74 From: Lana Menjivar MD PCP: [facility] Status:ADM IN Location: [place] [address] 1 Subjective Subjective Patient seen and examined. He had no active complaints. He had cardiac cath today which showed clean coronaries. I saw him with his nurse by his bedside. His Cr is up to 4.45 today. Review of systemsis otherwise negative. Objective Data Objective Data Vital Signs: Vital Signs Temp Pulse Resp BP Pulse Ox O2 Del Method O2 Flow Rate 99.1 F 76 18 142/48 H 96 Room Air 2 02/16/25 03:58 02/16/25 07:00 02/16/25 07:00 02/16/25 03:58 02/16/25 08:00 02/16/25 08:00 02/16/25 03:18 FiO2 25 02/15/25 06:00 Oxygen Flow Rate (L/min) 2 Oxygen Delivery Method Room Air Weight: 171 lb 4.787 oz Body Mass Index (BMI) 24.5 Intake & Output: Intake and Output for Last 24 Hours 02/14/25 02/15/25 02/16/25 23:59 23:59 23:59 Intake Total 1542.72 / 1581.75 917.18 / 917.18 150 / 150 Output Total 4900 / 4900 1300 / 1300 750 / 750 Balance -3357.28 / -3318.25 -382.82 / -382.82 -600 / -600 Lab / Micro Data 02/16/25 05:59 02/16/25 05:59 Labs: Laboratory Results - last 24 hr 02/15/25 12:06: POC Glucose 152 H 02/15/25 17:00: POC Glucose 190 H 02/15/25 22:22: POC Glucose 172 H 02/16/25 05:57: POC Glucose 185 H 02/16/25 05:59: WBC 9.2, RBC 3.60 L, Hgb 10.9 L, Hct 31.5 L, MCV 87.5, MCH 30.3,MCHC 34.6, RDW Std Deviation 42.3, RDW Coeff of Samir 13.1, Plt Count 196, MPV 10.1, Immature Gran % (Auto) 0.300, Neut %(Auto) 67.2, Lymph % (Auto) 13.4 L, [place] % (Auto) 12.2 H, Eos % (Auto) 6.4 H, Baso % (Auto) 0.5, Absolute Neuts (auto) 6.2, Absolute Lymphs (auto) 1.23, Nucleated RBC % 0, Sodium 139, Potassium 3.4, Chloride 99, Carbon Dioxide 20.2 L, Anion Gap 20 H, BUN 76 H, Creatinine 4.45 H, Estim Creat Clear Calc 14.81 L, Est GFR (MDRD) Non-Af 13 L, BUN/Creatinine Ratio 17.2, Glucose 180 H, Calcium 8.7, Random Vancomycin 28.1 H 02/16/25 10:26: POC Glucose 174 H Micro: Microbiology 02/12/25 19:55 Sputum, Induced/Lukens Gram Stain - Final 02/12/25 19:55 Sputum, Induced/Lukens Respiratory Culture - Final Mixed normal respiratory elizabeth. No Streptococcus pneumoniae, beta-hemolytic Streptococcus or Staphylococcus aureus isolated. 02/12/25 19:37 Urine, Catheterized Urine Culture - Final Culture exhibits no growth. 02/12/25 19:59 Blood Culture (Wb) - Left Hand Blood Culture - Preliminary No growth in 48 hours. 02/12/25 19:00 Blood Culture (Wb) - Anticubital Right Blood Culture - Preliminary No growth in 48 hours. 02/12/25 22:50 Nasal Secretion MRSA (PCR) - Final 02/12/25 21:10 Mucosa - Nasopharyngeal Respiratory Panel (PCR) - Final 02/12/25 19:17 Mucosa - Nose SARS-CoV-2, Influenza & RSV (PCR) - Final Rhythm Strip Rhythm Strip: Sinus Rhythm Rate: 78 Ectopy: None Physical Exam Const alert and oriented x3 Constitutional Narrative: on room air. General Appearance: cooperative HEENT normocephalic and moist oral mucous membranes Eyes PERRL and EOMs intact bilaterally Neck no lymphadenopathy Lymph Lymphatic: no lymphedema noted Resp Resp Narrative: mildly diminished breath sounds bibasally, no wheezes or crackles. On room air. Cardio regular rate, regular rhythm, S1 normal heart sound and S2 normal heart sound GI normal to inspection, nondistended, normoactive bowel sounds, soft to palpation and non-tender Extremity normal capillary refill and no clubbing, cyanosis or edema General Extremity: no tenderness to palpation of joints or extremities Skin General Skin Exam: no breakdown Neuro CN's II-XII intact bilaterally and no focal motor deficits Motor Exam: general weakness Psych thought process normal Appearance: appropriate Assessment & Plan Assessment/Plan (1) Congestive heart failure: (2) Respiratory failure: PLAN: Plan #Acute hypoxic and hypercapnic respiratory failure due to acute decompensated heart failure * self extubated yesterday. transferred out of the ICU. * Critical care on board. * Respiratory panel negative. * Titrate oxygen to maintain saturation above 90%. * breathing treatment with bronchodilators. * off lasix now due to worsening kidney impairment. * proBNP was elevated at 15,846. * on IV vancomycin and zosyn. Blood cultures show no growth after 48 hours. Sputum cultures are negative. Will dc IV antibiotics. * 2D echo showed EF of 55 to 60% with moderate eccentric left ventricular hypertrophy and severe calcific AV stenosis * Now on room air. #Elevated troponins * Initial troponin was 146 and peaked at 167. * said he did not have any chest pain. 2D echo ordered today showed EF of 55 to 60% with no regional wall motion abnormalities and showed severe aortic stenosis * cardiology on board * Had cardiac cath which showed c angiographically normal left main coronary artery with severely diseased left anterior descending artery and patent flores grafts to the mid LAD and obtuse marginal artery. * #Severe aortic stenosis: * As per 2D echo. Cardiology on board. * cardiac cath today showed clean coronaries and severe aortic stenosis. * will need follow up with cardiology on outpatient basis for evaluation for TAVR. * #JUAN on CKD IV with elevated anion gap * CR is further up to 4.45 today, from 4.18 yesterday. * off lasix. off amlodipine and midodrine also per nephrology. * * #History of CAD s/p CABG, on aspirin and ezetimibe. Beta-blockers held due to hypotension. #Hypertension: BP meds currently on hold #Type 2 diabetes mellitus: Oral meds on hold. Insulin sliding scale. Accu-Cheks ACHS. DVT prophylaxis: On heparin Charges/Coding Visit Charges Inpatient E&M: 27471 Subs Hosp L2 02/16/25 4248 Lana Menjivar MD Cosigner Signature (if applicable): CC: ~ Signed [facility]08-12-2025 Progress note [facility] Medical Records Department [address] [place] [address] Progress Note - Location And Measurement Technician 02/16/25 1551 MR#: [id number] Acct: [id number] Name: SAM VIDALES Rep #:[id number] : 1950 74 From: Jony Valencia PCP: [facility] Status:ADM IN Location: [place] [address] Objective Data Objective Data Vital Signs: Vital Signs Last response 3 Temperature 37.3 C 02/16/25 03:58 Temperature Source Oral 02/16/25 03:58 Pulse Rate 78 02/16/25 15:06 Pulse Strength Weak (1+) 02/14/25 10:00 Respiratory Rate 16 02/16/25 15:06 Respiratory Effort Normal 02/16/25 03:18 Respiratory Depth Normal 02/16/25 03:18 Respiratory Pattern Normal 02/16/25 15:06 Blood Pressure 142/48 H 02/16/25 03:58 Blood Pressure Mean 79 02/16/25 03:58 Blood Pressure Source Monitor 02/16/25 03:58 Blood Pressure Position Sitting 02/16/25 03:58 Blood Pressure Location Left Arm 02/16/25 03:58 Pulse Ox 96 02/16/25 08:00 Oxygen Delivery Method Room Air 02/16/25 08:00 Oxygen Flow Rate (L/min) 2 02/16/25 03:18 Fraction of Inspired Oxygen (FIO2) 25 02/15/25 06:00 I&O: I&O Last 24 Hours 3 02/15/25 02/16/25 02/16/25 23:59 11:59 23:59 Intake Total 250 / 917.18 150 / 200 50 / 200 Output Total 400 / 1300 750 / 750 Balance -150 / -382.82 -600 / -550 50 / -550 I&O: Total Stay 3 02/12/25 18:44 thru 02/16/25 14:09 Intake Total 3418.70 Output Total 01062 Balance -6606.30 Current Meds Ordered / Administered: Current meds ordered / Administered 3 Generic Name Dose Route Start Last Admin Trade Name Freq PRN Reason Stop Dose Admin Acetaminophen 650 mg 02/12/25 22:09 Acetaminophen 650 Mg Suppository RC Q4H PRN PRN Fever, pain 1-10 Acetaminophen 650 mg 02/12/25 22:09 02/15/25 10:55 Acetaminophen 325 Mg Tablet PO 650 mg Q4H PRN PRN Administration Fever, pain 1-10/10 Al Hydroxide/Mg Hydroxide 30 ml 02/12/25 22:09 Mag Hydrox/Al Hydrox/Simeth 30 Ml Udc PO Q6H PRN PRN Gastric Burning Albuterol Sulfate 2.5 mg 02/12/25 22:09 Albuterol 2.5 Mg/3 Ml Vial.Neb. INHALATION Q2H PRN PRN Dyspnea, wheezing Albuterol/Ipratropium 3 ml 02/12/25 22:09 02/16/25 14:50 Ipratropium/Albuterol Sulfate 3 Ml Ampul.Neb INHALATION 3 ml Q4HWA.RT LORIN Administration Atorvastatin Calcium 40 mg 02/14/25 22:00 02/15/25 22:01 Atorvastatin Calcium 40 Mg Tablet PO 40 mg QHS LORIN Administration Calamine/Phenol 1 applic 02/12/25 22:09 02/16/25 11:12 Menthol/Lanolin/Calamine/Znox 113 Gm Tube TOPICAL 1 applic 4X/DAY LORIN Administration Protocol Carvedilol 25 mg 02/14/25 18:15 02/16/25 10:20 Carvedilol 25 Mg Tablet PO 25 mg DAILYCM LORIN Administration Chlorhexidine Gluconate 1 each 02/14/25 10:00 02/16/25 10:22 Chlorhexidine Gluc 2% Cloth 1 Each Towelette TOPICAL 1 each DAILY LORIN Administration Ezetimibe 10 mg 02/15/25 10:00 02/16/25 10:22 Ezetimibe 10 Mg Tablet PO 10 mg DAILY LORIN Administration Guaifenesin 10 ml 02/12/25 22:09 Guaifenesin 10 Ml Udc (200mg/10ml) PO Q4H PRN PRN COUGH Heparin Sodium (Beef Lung) 50 units 02/16/25 09:18 Heparin Pf Lock 10 Units/Ml 50 Units/5 Ml Syringe IV UD PRN Sheath Care Heparin Sodium (Porcine) 5,000 unit 02/12/25 22:09 02/16/25 10:21 Heparin Injection (Vial) 5,000 Unit/Ml Vial SC 5,000 unit Q12 LORIN Administration Hydralazine HCl 10 mg 02/12/25 22:09 02/15/25 05:48 Hydralazine 20 Mg/Ml Vial IV 10 mg Q4H PRN PRN Administration SBP > 160 Protocol Sodium Chloride 250 mls @ 15 mls/hr 02/12/25 22:13 IV .[id number] PRN Saline Flush Sodium Chloride 250 mls @ 15 mls/hr 02/12/25 22:13 IV .[id number] PRN Additional IVPB Infusion Sodium Chloride 1,000 mls @ 15 mls/hr 02/15/25 18:50 02/15/25 21:54 IV Not Given .Q48H LORIN Sodium Chloride 500 mls @ 0 mls/hr 02/16/25 09:20 IV .Q0M LORIN As Directed Sodium Chloride 1,000 mls @ 75 mls/hr 02/16/25 11:15 02/16/25 12:47 IV 02/17/25 00:34 75 mls/hr .[id number] LORIN Administration Insulin Glargine 28 unit 02/17/25 10:00 Insulin Glargine-Yfgn 100 Unit/Ml Pen SC DAILY [facility] Insulin Human Lispro 0 unit 02/16/25 07:00 02/16/25 11:12 Insulin Lispro 100 Unit/Ml Insuln.Pen SC 1 u ACHS LORIN Administration Protocol Isosorbide Mononitrate 30 mg 02/17/25 10:00 Isosorbide Mononitrate 30 Mg Tablet PO DAILY [facility] Protocol Melatonin 3 mg 02/12/25 22:09 Melatonin 3 Mg Tablet PO QHS PRN PRN INSOMNIA Nitroglycerin 0.4 mg 02/12/25 22:09 Nitroglycerin (Inpatient Use) 0.4 Mg Tab.Subl SL Q5M PRN CARDIAC/CHEST PAIN Ondansetron HCl 4 mg 02/12/25 22:09 Ondansetron 4 Mg/2 Ml Vial IV Q8H PRN PRN NAUSEA/VOMITING Pantoprazole Sodium 40 mg 02/17/25 10:00 Pantoprazole Sodium 40 Mg Tablet PO DAILY LORIN Senna/Docusate Sodium 2 tablet 02/12/25 22:09 Senna/Docusate Sodium 1 Tablet PO BID PRN PRN Constipation Sodium Chloride 5 ml 02/12/25 22:09 Sodium Cl For Inhalation 15 Ml Vial.Neb. INHALATION Q5M PRN Suctioning Sodium Chloride 10 - 40 ml 02/12/25 22:13 02/15/25 17:04 0.9% Saline Lock 10 Ml Syringe IV 30 ml UD PRN Administration SALINE FLUSH Lab / Micro Data 02/16/25 05:59 02/16/25 05:59 Labs: Laboratory Results - last 24 hr 02/15/25 17:00: POC Glucose 190 H 02/15/25 22:22: POC Glucose 172 H 02/16/25 05:57: POC Glucose 185 H 02/16/25 05:59: WBC 9.2, RBC 3.60 L, Hgb 10.9 L, Hct 31.5 L, MCV 87.5, MCH 30.3,MCHC 34.6, RDW Std Deviation 42.3, RDW Coeff of Samir 13.1, Plt Count 196, MPV 10.1, Immature Gran % (Auto) 0.300, Neut %(Auto) 67.2, Lymph % (Auto) 13.4 L, [place] % (Auto) 12.2 H, Eos % (Auto) 6.4 H, Baso % (Auto) 0.5, Absolute Neuts (auto) 6.2, Absolute Lymphs (auto) 1.23, Nucleated RBC % 0, Sodium 139, Potassium 3.4, Chloride 99, Carbon Dioxide 20.2 L, Anion Gap 20 H, BUN 76 H, Creatinine 4.45 H, Estim Creat Clear Calc 14.81 L, Est GFR (MDRD) Non-Af 13 L, BUN/Creatinine Ratio 17.2, Glucose 180 H, Calcium 8.7, Random Vancomycin 28.1 H 02/16/25 10:26: POC Glucose 174 H Micro: Microbiology 02/14/25 08:25 Blood Culture (Wb) - Anticubital Left Blood Culture - Preliminary No growth in 48 hours. Rhythm Strip Rhythm Strip: Sinus Rhythm Rate: 78 Ectopy: None Assessment and Plan . Assessment and plan: Heart Failure Due to Valvular Heart Disease CAD s/p CABG Respiratory Failure (resolved) -planning underway for possible high-risk TAVR -doing well from respiratory standpoint The entirety of this encounter was done via Telemedicine Physical Exam Narrative G- A&O x 3, NAD ENT- Sclera anicteric, AT/NC CV- rrr, + m, no rg L- CTAB with good air movement and symmetric chest excursion Ab- s nt nd + bs, no cce Ext- no cce Neuro- no focal deficits Subjective Subjective Feeling much better. Awaiting final plans from cardiology service re: . Reports he had asthma andhay fever as a child. 02/16/25 1556 Cosigner Signature (if applicable): CC: ~ Signed [facility]08-12-2025 Progress note Author Rah Mary [facility] Note Date/Time February 16, 2025 9: 16am [facility] Medical Records Department [address] [address] Progress Note - Cardiology 02/16/25913 MR#: [id number] Acct: [id number] Name: SAM VIDALES Rep #:[id number] : 1950 74 From: Rah Mary MD PCP: [facility] Status:ADM IN Location: [place] [address] Subjective Subjective Patient seen and evaluated. Underwent cardiac catheterization this morning. Objective Data Vital Signs: Vital Signs Temp Pulse Resp BP Pulse Ox O2 Del Method O2 Flow Rate 99.1 F 76 18 142/48 H 96 Room Air 2 02/16/25 03:58 02/16/25 07:00 02/16/25 07:00 02/16/25 03:58 02/16/25 08:00 02/16/25 08:00 02/16/25 03:18 FiO2 25 02/15/25 06:00 Oxygen Flow Rate (L/min) 2 Oxygen Delivery Method Room Air Weight: 171 lb 4.787 oz Body Mass Index (BMI) 24.5 Intake & Output: Intake and Output for Last 24 Hours 02/14/25 02/15/25 02/16/25 23:59 23:59 23:59 Intake Total 1542.72 / 1581.75 917.18 / 917.18 50 / 50 Output Total 4900 / 4900 1300 / 1300 750 / 750 Balance -3357.28 / -3318.25 -382.82 / -382.82 -700 / -700 Lab / Micro Data 02/16/25 05:59 02/16/25 05:59 Labs: Laboratory Results - last 24 hr 02/15/25 08:40: Sodium 140, Potassium 3.9, Chloride 99, Carbon Dioxide 17.1 L, Anion Gap 24 H, BUN 71 H, Creatinine 4.18 H, Estim Creat Clear Calc 15.77 L, Est GFR (MDRD) Non-Af 14 L, BUN/Creatinine Ratio 17.1, Glucose 189 H, Calcium 8.9 02/15/25 12:06: POC Glucose 152 H 02/15/25 17:00: POC Glucose 190 H 02/15/25 22:22: POC Glucose 172 H 02/16/25 05:57: POC Glucose 185 H 02/16/25 05:59: WBC 9.2, RBC 3.60 L, Hgb 10.9 L, Hct 31.5 L, MCV 87.5, MCH 30.3,MCHC 34.6, RDW Std Deviation 42.3, RDW Coeff of Samir 13.1, Plt Count 196, MPV 10.1, Immature Gran % (Auto) 0.300, Neut % (Auto) 67.2, Lymph % (Auto) 13.4 L, [place] % (Auto) 12.2 H, Eos % (Auto) 6.4 H, Baso % (Auto) 0.5, Absolute Neuts (auto) 6.2, Absolute Lymphs (auto) 1.23, Nucleated RBC % 0, Sodium 139, Potassium 3.4, Chloride 99, Carbon Dioxide 20.2 L, Anion Gap 20 H, BUN 76 H, Creatinine 4.45 H, Estim Creat Clear Calc 14.81 L, Est GFR (MDRD) Non-Af 13 L, BUN/Creatinine Ratio 17.2, Glucose 180 H, Calcium 8.7, Random Vancomycin 28.1 H Micro: Microbiology 02/12/25 19:55 Sputum, Induced/Lukens Gram Stain - Final 02/12/25 19:55 Sputum, Induced/Lukens Respiratory Culture - Final Mixed normal respiratory elizabeth. No Streptococcus pneumoniae, beta-hemolytic Streptococcus or Staphylococcus aureus isolated. 02/12/25 19:37 Urine, Catheterized Urine Culture - Final Culture exhibits no growth. 02/12/25 19:59 Blood Culture (Wb) - Left Hand Blood Culture - Preliminary No growth in 48 hours. 02/12/25 19:00 Blood Culture (Wb) - Anticubital Right Blood Culture - Preliminary No growth in 48 hours. Rhythm Strip Rhythm Strip: Sinus Rhythm Rate: 78 Ectopy: None Cardiology Labs/Tests 02/15/25 08:40: Sodium 140, Potassium 3.9, Chloride 99, Carbon Dioxide 17.1 L, Anion Gap 24 H, BUN 71 H, Creatinine 4.18 H, Est GFR (MDRD) Non-Af 14 L, BUN/Creatinine Ratio 17.1, Glucose 189 H, Calcium 8.9 02/16/25 05:59: WBC 9.2, RBC 3.60 L, Hgb 10.9 L, Hct 31.5 L, MCV 87.5, MCH 30.3,MCHC 34.6, Plt Count 196, MPV 10.1, Immature Gran % (Auto) 0.300, Neut % (Auto) 67.2, Lymph % (Auto) 13.4 L, [place] % (Auto) 12.2 H, Eos % (Auto) 6.4 H, Baso % (Auto) 0.5, Absolute Neuts (auto) 6.2, Nucleated RBC % 0, Sodium 139, Potassium 3.4, Chloride 99, Carbon Dioxide 20.2 L, Anion Gap 20 H, BUN 76 H, Creatinine 4.45 H, Est GFR (MDRD) Non-Af 13 L, BUN/Creatinine Ratio 17.2, Glucose 180 H, Calcium 8.7 Rhythm: EKG: ECHO: Stress Test: Cardiac Cath: PCI: CT Surgery: Holter monitor: EPS: PPM: CXR: Chest CT Scan: Radiography Diagnostic Testing: Radiology Impression Renal Ultrasound 02/15/25 06:30 IMPRESSION: No acute abnormality is seen. Increased echotexture of the renal cortices bilaterally suggestive of chronic renal disease. Reading Location: [place] [address] Physical Exam Const alert, oriented x3 and no apparent distress General Appearance: cooperative HEENT hearing grossly normal bilaterally Head and Scalp: atraumatic Eyes EOMs intact bilaterally Neck General: normal visual inspection Chest inspection of chest normal and palpation of chest normal Resp normal respiratory effort Auscultation: clear to auscultation bilaterally Cardio regular rate, regular rhythm, S1 normal heart sound and S2 normal heart sound Jugular Venous Distention: JVD Heart Sounds: murmur systolic IV/ crescendo-decrescendo left sternal border tothe neck and to carotid arteries GI normal to inspection, nondistended, normoactive bowel sounds Extremity normal capillary refill and no pedal edema Peripheral Pulses: Yes pulses 2+ throughout and femoral pulses present Skin no rashes or lesions noted Neuro oriented x3 and CN's II-XII intact bilaterally Psych Appearance: grossly normal and appropriate Assessment & Plan Assessment/Plan (1) Congestive heart failure: PLAN: He presented with acute congestive heart failure likely secondary to diastolic dysfunction and aortic valvular disease. He has been aggressively diuresed. His ejection fraction is noted to be normal. My recommendation at this time is to hold off on the diuretics. Will see how he does over the next day. (2) Hx of coronary artery bypass graft: PLAN: * He is status post coronary bypass surgery and this was evaluated with the cardiac catheterization. The results were as follows: * FLORES to the LAD is patent * Free GWEN of the LAD to the obtuse marginal is patent * Saphenous vein graft to the right coronary artery is patent with moderate ostial narrowing * Saphenous vein graft to the second obtuse marginal branch is noted to be patent. * Based on the above it appears that he is adequately revascularized. No PCI will be needed. * Cardiac catheterization performed with 76 cc of contrast. (3) History of aortic stenosis: PLAN: He does have severe aortic stenosis by echocardiogram. It appears that billy need to be evaluated as an outpatient to see whether he is a TAVR candidate. Thank you for allowing me to participate in the care of your patient. Please don't hesitate to call if any issues arise. 02/16/25 0916 <Electronically signed by Rah Mary MD> Cosigner Signature (if applicable): CC: ~ Signed [facility] Work Phone: 1(894) 128-280308-12-2025 Consult note Author Lani Frank [facility] Note Date/Time February 16, 2025 7: 42am [facility] Medical Records Department [address] [place] [address] Pharmacokinetic/Renal -Consult 02/16/25 0741 MR#: [id number] Acct: [id number] Name: SAM VIDALES Rep #:[id number] : 1950 74 From: Lani Frank PCP: [facility] Status:ADM IN Y Location: [place] [address] Consult Antibiotic Management Pharmacy has been consulted to manage selected antibiotic: Vancomycin Type of Intervention Type of Consult: Follow-up Labs Labs: Random Vancomycin 28.1 ug/mL (0.0-15.0) H 02/16/25 05:59 Microbiology Microbiology: Microbiology 02/12/25 19:55 Sputum, Induced/Lukens Gram Stain - Final 02/12/25 19:55 Sputum, Induced/Lukens Respiratory Culture - Final Mixed normal respiratory elizabeth. No Streptococcus pneumoniae, beta-hemolytic Streptococcus or Staphylococcus aureus isolated. 02/12/25 19:37 Urine, Catheterized Urine Culture - Final Culture exhibits no growth. 02/12/25 19:59 Blood Culture (Wb) - Left Hand Blood Culture - Preliminary No growth in 48 hours. 02/12/25 19:00 Blood Culture (Wb) - Anticubital Right Blood Culture - Preliminary No growth in 48 hours. 02/12/25 22:50 Nasal Secretion MRSA (PCR) - Final 02/12/25 21:10 Mucosa - Nasopharyngeal Respiratory Panel (PCR) - Final 02/12/25 19:17 Mucosa - Nose SARS-CoV-2, Influenza & RSV (PCR) - Final Goal Trough Goal Trough: 15-20 mcg/mL Pharmacy Plan for Drug Dosing Pharmacy Plan for Drug Dosing: VANCOMYCIN LEVEL RECEIVED Current Vancomycin Dose: Dose per random levels (d/t renal function) Number of Doses Received: Had 1250mg IV x1 on 02/15 @0853 Vancomycin Level: 28.1 Hours Since Last Dose: 21hr Renal Function: SCr 4.18 (02/15)/ CrCl 16 ml/min Renal Function Trend: SCr worsening since admission Lab/Micro: Cx NGTD Vancomycin Plan/Comments: Patient had a random trough drawn which resulted in a value of 28.1 (Goal 15-20). patient's random level is above goal. Will not give a dose of vancomycin today and will get a random level tomorrow morning. At thispoint, patient is not on HD at this point so pharmacy will continue to dose based on random levels with AM labs at this time. Will re-dose the patient once trough is <20. Pending Level: *RANDOM* 02/17/25 @0600 Pharmacy Service will continue to monitor and adjust dosing as required. 02/16/25 0742 <Electronically signed by Lani Frank > Date _ Lani Frank Cosigner Signature (if applicable): Date CC: ~ Signed [facility] Work Phone: 1(747) 199-284908-12-2025 Progress note [facility] Medical Records Department [address] [place] [address] Progress Note - Cardiology 02/16/25913 MR#: [id number] Acct: [id number] Name: SAM VIDALES Rep #:[id number] : 1950 74 From: Rah Mary MD PCP: [facility] Status:ADM IN Location: [place] [address] Subjective Subjective Patient seen and evaluated. Underwent cardiac catheterization this morning. Objective Data Vital Signs: Vital Signs Temp Pulse Resp BP Pulse Ox O2 Del Method O2 Flow Rate 99.1 F 76 18 142/48 H 96 Room Air 2 02/16/25 03:58 02/16/25 07:00 02/16/25 07:00 02/16/25 03:58 02/16/25 08:00 02/16/25 08:00 02/16/25 03:18 FiO2 25 02/15/25 06:00 Oxygen Flow Rate (L/min) 2 Oxygen Delivery Method Room Air Weight: 171 lb 4.787 oz Body Mass Index (BMI) 24.5 Intake & Output: Intake and Output for Last 24 Hours 02/14/25 02/15/25 02/16/25 23:59 23:59 23:59 Intake Total 1542.72 / 1581.75 917.18 / 917.18 50 / 50 Output Total 4900 / 4900 1300 / 1300 750 / 750 Balance -3357.28 / -3318.25 -382.82 / -382.82 -700 / -700 Lab / Micro Data 02/16/25 05:59 02/16/25 05:59 Labs: Laboratory Results - last 24 hr 02/15/25 08:40: Sodium 140, Potassium 3.9, Chloride 99, Carbon Dioxide 17.1 L, Anion Gap 24 H, BUN 71 H, Creatinine 4.18 H, Estim Creat Clear Calc 15.77 L, Est GFR (MDRD) Non-Af 14 L, BUN/Creatinine Ratio 17.1, Glucose 189 H, Calcium 8.9 02/15/25 12:06: POC Glucose 152 H 02/15/25 17:00: POC Glucose 190 H 02/15/25 22:22: POC Glucose 172 H 02/16/25 05:57: POC Glucose 185 H 02/16/25 05:59: WBC 9.2, RBC 3.60 L, Hgb 10.9 L, Hct 31.5 L, MCV 87.5, MCH 30.3,MCHC 34.6, RDW Std Deviation 42.3, RDW Coeff of Samir 13.1, Plt Count 196, MPV 10.1, Immature Gran % (Auto) 0.300, Neut %(Auto) 67.2, Lymph % (Auto) 13.4 L, [place] % (Auto) 12.2 H, Eos % (Auto) 6.4 H, Baso % (Auto) 0.5, Absolute Neuts (auto) 6.2, Absolute Lymphs (auto) 1.23, Nucleated RBC % 0, Sodium 139, Potassium 3.4, Chloride 99, Carbon Dioxide 20.2 L, Anion Gap 20 H, BUN 76 H, Creatinine 4.45 H, Estim Creat Clear Calc 14.81 L, Est GFR (MDRD) Non-Af 13 L, BUN/Creatinine Ratio 17.2, Glucose 180 H, Calcium 8.7, Random Vancomycin 28.1 H Micro: Microbiology 02/12/25 19:55 Sputum, Induced/Lukens Gram Stain - Final 02/12/25 19:55 Sputum, Induced/Lukens Respiratory Culture - Final Mixed normal respiratory elizabeth. No Streptococcus pneumoniae, beta-hemolytic Streptococcus or Staphylococcus aureus isolated. 02/12/25 19:37 Urine, Catheterized Urine Culture - Final Culture exhibits no growth. 02/12/25 19:59 Blood Culture (Wb) - Left Hand Blood Culture - Preliminary No growth in 48 hours. 02/12/25 19:00 Blood Culture (Wb) - Anticubital Right Blood Culture - Preliminary No growth in 48 hours. Rhythm Strip Rhythm Strip: Sinus Rhythm Rate: 78 Ectopy: None Cardiology Labs/Tests 02/15/25 08:40: Sodium 140, Potassium 3.9, Chloride 99, Carbon Dioxide 17.1 L, Anion Gap 24 H, BUN 71 H, Creatinine 4.18 H, Est GFR (MDRD) Non-Af 14 L, BUN/Creatinine Ratio 17.1, Glucose 189 H, Calcium 8.9 02/16/25 05:59: WBC 9.2, RBC 3.60 L, Hgb 10.9 L, Hct 31.5 L, MCV 87.5, MCH 30.3,MCHC 34.6, Plt Count 196, MPV 10.1, Immature Gran % (Auto) 0.300, Neut % (Auto) 67.2, Lymph % (Auto) 13.4 L, [place] % (Auto) 12.2 H, Eos % (Auto) 6.4 H, Baso % (Auto) 0.5, Absolute Neuts (auto) 6.2, Nucleated RBC % 0, Sodium 139, Potassium 3.4, Chloride 99, Carbon Dioxide 20.2 L, Anion Gap 20 H, BUN 76 H, Creatinine 4.45 H, Est GFR (MDRD) Non-Af 13 L, BUN/Creatinine Ratio 17.2, Glucose 180 H, Calcium 8.7 Rhythm: EKG: ECHO: Stress Test: Cardiac Cath: PCI: CT Surgery: Holter monitor: EPS: PPM: CXR: Chest CT Scan: Radiography Diagnostic Testing: Radiology Impression Renal Ultrasound 02/15/25 06:30 IMPRESSION: No acute abnormality is seen. Increased echotexture of the renal cortices bilaterally suggestive of chronic renal disease. Reading Location: [place] [address] Physical Exam Const alert, oriented x3 and no apparent distress General Appearance: cooperative HEENT hearing grossly normal bilaterally Head and Scalp: atraumatic Eyes EOMs intact bilaterally Neck General: normal visual inspection Chest inspection of chest normal and palpation of chest normal Resp normal respiratory effort Auscultation: clear to auscultation bilaterally Cardio regular rate, regular rhythm, S1 normal heart sound and S2 normal heart sound Jugular Venous Distention: JVD Heart Sounds: murmur systolic IV/ crescendo-decrescendo left sternal border tothe neck and to carotid arteries GI normal to inspection, nondistended, normoactive bowel sounds Extremity normal capillary refill and no pedal edema Peripheral Pulses: Yes pulses 2+ throughout and femoral pulses present Skin no rashes or lesions noted Neuro oriented x3 and CN's II-XII intact bilaterally Psych Appearance: grossly normal and appropriate Assessment & Plan Assessment/Plan (1) Congestive heart failure: PLAN: He presented with acute congestive heart failure likely secondary to diastolic dysfunction and aortic valvular disease. He has been aggressively diuresed. His ejection fraction is noted to be normal. My recommendation at this time is to hold off on the diuretics. Will see how he does over the next day. (2) Hx of coronary artery bypass graft: PLAN: * He is status post coronary bypass surgery and this was evaluated with the cardiac catheterization. The results were as follows: * FLORES to the LAD is patent * Free GWEN of the LAD to the obtuse marginal is patent * Saphenous vein graft to the right coronary artery is patent with moderate ostial narrowing * Saphenous vein graft to the second obtuse marginal branch is noted to be patent. * Based on the above it appears that he is adequately revascularized. No PCI will be needed. * Cardiac catheterization performed with 76 cc of contrast. (3) History of aortic stenosis: PLAN: He does have severe aortic stenosis by echocardiogram. It appears that billy need to be evaluated as an outpatient to see whether he is a TAVR candidate. Thank you for allowing me to participate in the care of your patient. Please don't hesitate to callif any issues arise. 02/16/25 0916 Cosigner Signature (if applicable): CC: ~ Signed [facility]08-12-2025 Consult note [facility] Medical Records Department [address] [place] [address] Pharmacokinetic/Renal -Consult 02/16/25 0741 MR#: [id number] Acct: [id number] Name: AMBROCIOGEETHASAM Rep #:[id number] : 1950 74 From: Lani Frank PCP: [place] Hospital Status:ADM IN Y Location: [facility] [id number]- [id number] Consult Antibiotic Management Pharmacy has been consulted to manage selected antibiotic: Vancomycin Type of Intervention Type of Consult: Follow-up Labs Labs: Random Vancomycin 28.1 ug/mL (0.0-15.0) H 02/16/25 05:59 Microbiology Microbiology: Microbiology 02/12/25 19:55 Sputum, Induced/Lukens Gram Stain - Final 02/12/25 19:55 Sputum, Induced/Lukens Respiratory Culture - Final Mixed normal respiratory elizabeth. No Streptococcus pneumoniae, beta-hemolytic Streptococcus or Staphylococcus aureus isolated. 02/12/25 19:37 Urine, Catheterized Urine Culture - Final Culture exhibits no growth. 02/12/25 19:59 Blood Culture (Wb) - Left Hand Blood Culture - Preliminary No growth in 48 hours. 02/12/25 19:00 Blood Culture (Wb) - Anticubital Right Blood Culture - Preliminary No growth in 48 hours. 02/12/25 22:50 Nasal Secretion MRSA (PCR) - Final 02/12/25 21:10 Mucosa - Nasopharyngeal Respiratory Panel (PCR) - Final 02/12/25 19:17 Mucosa - Nose SARS-CoV-2, Influenza & RSV (PCR) - Final Goal Trough Goal Trough: 15-20 mcg/mL Pharmacy Plan for Drug Dosing Pharmacy Plan for Drug Dosing: VANCOMYCIN LEVEL RECEIVED Current Vancomycin Dose: Dose per random levels (d/t renal function) Number of Doses Received: Had 1250mg IV x1 on 02/15 @0853 Vancomycin Level: 28.1 Hours Since Last Dose: 21hr Renal Function: SCr 4.18 (02/15)/ CrCl 16 ml/min Renal Function Trend: SCr worsening since admission Lab/Micro: Cx NGTD Vancomycin Plan/Comments: Patient had a random trough drawn which resulted in a value of 28.1 ([id number]). patient's random level is above goal. Will not give a dose of vancomycin today and will geta random level tomorrow morning. At thispoint, patient is not on HD at this point so pharmacy will continue to dose based on random levels with AM labs at this time. Will re-dose the patient once trough is <20. Pending Level: *RANDOM* 02/17/25 @0600 Pharmacy Service will continue to monitor and adjust dosing as required. 02/16/25 0742 > Date _ Lani Lucioa Cosigner Signature (if applicable): Date CC: ~ Signed [facility]08-11-2025 Progress note Author Rah Mary [facility] Note Date/Time February 15, 2025 7: 17pm [facility] Medical Records Department [address] [place] [address] Progress Note - Cardiology 02/15/25 1843 MR#: [id number] Acct: [id number] Name: SAM VIDALES Rep #:[id number] : 1950 74 From: Rah Mary MD PCP: [facility] Status:ADM IN Location: [place] [address]- [id number] Subjective Subjective Patient seen and evaluated. Extubated himself earlier this morning. Objective Data Vital Signs: Vital Signs Temp Pulse Resp BP Pulse Ox O2 Del Method O2 Flow Rate 99.7 F H 73 24 H 129/60 H 99 Room Air 2 02/15/25 14:36 02/15/25 16:00 02/15/25 14:36 02/15/25 14:36 02/15/25 14:36 02/15/25 14:36 02/15/25 11:27 FiO2 25 02/15/25 06:00 Oxygen Flow Rate (L/min) 2 Oxygen Delivery Method Room Air Weight: 172 lb 6.424 oz Body Mass Index (BMI) 24.7 Intake & Output: Intake and Output for Last 24 Hours 02/13/25 02/14/25 02/15/25 23:59 23:59 23:59 Intake Total 572.55 / 594.45 1542.72 / 1581.75 817.18 / 817.18 Output Total 3075 / 3075 4900 / 4900 1300 / 1300 Balance -2502.45 / -2480.55 -3357.28 / -3318.25 -482.82 / -482.82 Lab / Micro Data 02/15/25 05:20 02/15/25 08:40 Labs: Laboratory Results - last 24 hr 02/14/25 23:03: POC Glucose 163 H 02/15/25 05:20: WBC 12.0 H, RBC 3.96 L, Hgb 12.1 L, Hct 34.5 L, MCV 87.1, MCH 30.6, MCHC 35.1, RDW Std Deviation 41.1, RDW Coeff of Samir 13.1, Plt Count 180, MPV 10.2, Immature Gran % (Auto) 0.500, Neut % (Auto) 79.4 H, Lymph % (Auto) 6.8L, [place] % (Auto) 10.9 H, Eos % (Auto) 2.1, Baso % (Auto) 0.3, Absolute Neuts (auto) 9.5 H, Absolute Lymphs (auto) 0.82 L, Nucleated RBC % 0, Random Vancomycin 19.8 H 02/15/25 05:29: POC Glucose 167 H 02/15/25 08:40: Sodium 140, Potassium 3.9, Chloride 99, Carbon Dioxide 17.1 L, Anion Gap 24 H, BUN 71 H, Creatinine 4.18 H, Estim Creat Clear Calc 15.77 L, Est GFR (MDRD) Non-Af 14 L, BUN/Creatinine Ratio 17.1, Glucose 189 H, Calcium 8.9 02/15/25 12:06: POC Glucose 152 H Micro: Microbiology 02/12/25 19:55 Sputum, Induced/Lukens Gram Stain - Final 02/12/25 19:55 Sputum, Induced/Lukens Respiratory Culture - Final Mixed normal respiratory elizabeth. No Streptococcus pneumoniae, beta-hemolytic Streptococcus or Staphylococcus aureus isolated. 02/12/25 19:37 Urine, Catheterized Urine Culture - Final Culture exhibits no growth. 02/12/25 19:59 Blood Culture (Wb) - Left Hand Blood Culture - Preliminary No growth in 48 hours. 02/12/25 19:00 Blood Culture (Wb) - Anticubital Right Blood Culture - Preliminary No growth in 48 hours. Rhythm Strip Rhythm Strip: Sinus Rhythm Rate: 78 Ectopy: None Cardiology Labs/Tests 02/15/25 05:20: WBC 12.0 H, RBC 3.96 L, Hgb 12.1 L, Hct 34.5 L, MCV 87.1, MCH 30.6, MCHC 35.1, Plt Count 180, MPV 10.2, Immature Gran % (Auto) 0.500, Neut % (Auto) 79.4 H, Lymph % (Auto) 6.8 L, [place] % (Auto) 10.9 H, Eos % (Auto) 2.1, Baso % (Auto) 0.3, Absolute Neuts (auto) 9.5 H, Nucleated RBC % 0 02/15/25 08:40: Sodium 140, Potassium 3.9, Chloride 99, Carbon Dioxide 17.1 L, Anion Gap 24 H, BUN 71 H, Creatinine 4.18 H, Est GFR (MDRD) Non-Af 14 L, BUN/Creatinine Ratio 17.1, Glucose 189 H, Calcium 8.9 Rhythm: EKG: ECHO: Stress Test: Cardiac Cath: PCI: CT Surgery: Holter monitor: EPS: PPM: CXR: Chest CT Scan: Radiography Diagnostic Testing: Radiology Impression Renal Ultrasound 02/15/25 06:30 IMPRESSION: No acute abnormality is seen. Increased echotexture of the renal cortices bilaterally suggestive of chronic renal disease. Reading Location: [place] [address] Physical Exam Const alert, oriented x3 and no apparent distress General Appearance: cooperative HEENT hearing grossly normal bilaterally Head and Scalp: atraumatic Eyes EOMs intact bilaterally Neck General: normal visual inspection Chest inspection of chest normal and palpation of chest normal Resp normal respiratory effort Auscultation: clear to auscultation bilaterally Cardio regular rate, regular rhythm, S1 normal heart sound and S2 normal heart sound Jugular Venous Distention: JVD Heart Sounds: murmur systolic IV/ crescendo-decrescendo left sternal border tothe neck and to carotid arteries GI normal to inspection, nondistended, normoactive bowel sounds Extremity normal capillary refill and no pedal edema Peripheral Pulses: Yes pulses 2+ throughout and femoral pulses present Skin no rashes or lesions noted Neuro oriented x3 and CN's II-XII intact bilaterally Psych Appearance: grossly normal and appropriate Assessment & Plan Assessment/Plan (1) Congestive heart failure: PLAN: He presented with acute congestive heart failure likely secondary to diastolic dysfunction and aortic valvular disease. He has been aggressively diuresed. His ejection fraction is noted to be normal. My recommendation at this time is to hold off on the diuretics and perform a cardiac catheterization and depending on the findings further recommendations will be made. (2) Hx of coronary artery bypass graft: PLAN: He is status post coronary bypass surgery and the above will be evaluated during the cardiac catheterization. (3) History of aortic stenosis: PLAN: He does have severe aortic stenosis by echocardiogram. The patient was noted to have had at least moderate aortic stenosis but had not followed up withcardiologists here. My recommendation at this time is to obtain a left heart catheterization with a possible view to TAVR. I did explain the above to the patient his and his daughter they understand and agree to proceed. I have also discussed this with the electrician substation he is at fairly high risk due to his renal dysfunction and they are aware. Will attempt to use minimal contrast agents. Thank you for allowing me to participate in the care of your patient. Please don't hesitate to call if any issues arise. 02/15/251916 <Electronically signed by Rah Mary MD> Cosigner Signature (if applicable): CC: ~ Signed [facility] Work Phone: [phone]) 884-263208-11-2025 Progress note [facility] Medical Records Department [address] [place] [address] Progress Note - Cardiology 02/15/25 1843 MR#: [id number] Acct: [id number] Name: SAM VIDALES Rep #:[id number] : 1950 74 From: Rah Mary MD PCP: [place] Hospital Status:ADM IN Location: [place] [address] Subjective Subjective Patient seen and evaluated. Extubated himself earlier this morning. Objective Data Vital Signs: Vital Signs Temp Pulse Resp BP Pulse Ox O2 Del Method O2 Flow Rate 99.7 F H 73 24 H 129/60 H 99 Room Air 2 02/15/25 14:36 02/15/25 16:00 02/15/25 14:36 02/15/25 14:36 02/15/25 14:36 02/15/25 14:36 02/15/25 11:27 FiO2 25 02/15/25 06:00 Oxygen Flow Rate (L/min) 2 Oxygen Delivery Method Room Air Weight: 172 lb 6.424 oz Body Mass Index (BMI) 24.7 Intake & Output: Intake and Output for Last 24 Hours 02/13/25 02/14/25 02/15/25 23:59 23:59 23:59 Intake Total 572.55 / 594.45 1542.72 / 1581.75 817.18 / 817.18 Output Total 3075 / 3075 4900 / 4900 1300 / 1300 Balance -2502.45 / -2480.55 -3357.28 / -3318.25 -482.82 / -482.82 Lab / Micro Data 02/15/25 05:20 02/15/25 08:40 Labs: Laboratory Results - last 24 hr 02/14/25 23:03: POC Glucose 163 H 02/15/25 05:20: WBC 12.0 H, RBC 3.96 L, Hgb 12.1 L, Hct 34.5 L, MCV 87.1, MCH 30.6, MCHC 35.1, RDW Std Deviation 41.1, RDW Coeff of Samir 13.1, Plt Count 180, MPV 10.2, Immature Gran % (Auto) 0.500, Neut % (Auto) 79.4 H, Lymph % (Auto) 6.8L, [place] % (Auto) 10.9 H, Eos % (Auto) 2.1, Baso % (Auto) 0.3, Absolute Neuts (auto) 9.5 H, Absolute Lymphs (auto) 0.82 L, Nucleated RBC % 0, Random Vancomycin 19.8 H 02/15/25 05:29: POC Glucose 167 H 02/15/25 08:40: Sodium 140, Potassium 3.9, Chloride 99, Carbon Dioxide 17.1 L, Anion Gap 24 H, BUN 71 H, Creatinine 4.18 H, Estim Creat Clear Calc 15.77 L, Est GFR (MDRD) Non-Af 14 L, BUN/Creatinine Ratio 17.1, Glucose 189 H, Calcium 8.9 02/15/25 12:06: POC Glucose 152 H Micro: Microbiology 02/12/25 19:55 Sputum, Induced/Lukens Gram Stain - Final 02/12/25 19:55 Sputum, Induced/Lukens Respiratory Culture - Final Mixed normal respiratory elizabeth. No Streptococcus pneumoniae, beta-hemolytic Streptococcus or Staphylococcus aureus isolated. 02/12/25 19:37 Urine, Catheterized Urine Culture - Final Culture exhibits no growth. 02/12/25 19:59 Blood Culture (Wb) - Left Hand Blood Culture - Preliminary No growth in 48 hours. 02/12/25 19:00 Blood Culture (Wb) - Anticubital Right Blood Culture - Preliminary No growth in 48 hours. Rhythm Strip Rhythm Strip: Sinus Rhythm Rate: 78 Ectopy: None Cardiology Labs/Tests 02/15/25 05:20: WBC 12.0 H, RBC 3.96 L, Hgb 12.1 L, Hct 34.5 L, MCV 87.1, MCH 30.6, MCHC 35.1, Plt Count 180, MPV 10.2, Immature Gran % (Auto) 0.500, Neut % (Auto) 79.4 H, Lymph % (Auto) 6.8 L, [place] % (Auto) 10.9 H, Eos % (Auto) 2.1, Baso % (Auto) 0.3, Absolute Neuts (auto) 9.5 H, Nucleated RBC % 0 02/15/25 08:40: Sodium 140, Potassium 3.9, Chloride 99, Carbon Dioxide 17.1 L, Anion Gap 24 H, BUN 71 H, Creatinine 4.18 H, Est GFR (MDRD) Non-Af 14 L, BUN/Creatinine Ratio 17.1, Glucose 189 H, Calcium 8.9 Rhythm: EKG: ECHO: Stress Test: Cardiac Cath: PCI: CT Surgery: Holter monitor: EPS: PPM: CXR: Chest CT Scan: Radiography Diagnostic Testing: Radiology Impression Renal Ultrasound 02/15/25 06:30 IMPRESSION: No acute abnormality is seen. Increased echotexture of the renal cortices bilaterally suggestive of chronic renal disease. Reading Location: [place] [address] Physical Exam Const alert, oriented x3 and no apparent distress General Appearance: cooperative HEENT hearing grossly normal bilaterally Head and Scalp: atraumatic Eyes EOMs intact bilaterally Neck General: normal visual inspection Chest inspection of chest normal and palpation of chest normal Resp normal respiratory effort Auscultation: clear to auscultation bilaterally Cardio regular rate, regular rhythm, S1 normal heart sound and S2 normal heart sound Jugular Venous Distention: JVD Heart Sounds: murmur systolic IV/ crescendo-decrescendo left sternal border tothe neck and to carotid arteries GI normal to inspection, nondistended, normoactive bowel sounds Extremity normal capillary refill and no pedal edema Peripheral Pulses: Yes pulses 2+ throughout and femoral pulses present Skin no rashes or lesions noted Neuro oriented x3 and CN's II-XII intact bilaterally Psych Appearance: grossly normal and appropriate Assessment & Plan Assessment/Plan (1) Congestive heart failure: PLAN: He presented with acute congestive heart failure likely secondary to diastolic dysfunction and aortic valvular disease. He has been aggressively diuresed. His ejection fraction is noted to be normal. My recommendation at this time is to hold off on the diuretics and perform a cardiac catheterization and depending on the findings further recommendations will be made. (2) Hx of coronary artery bypass graft: PLAN: He is status post coronary bypass surgery and the above will be evaluated during the cardiac catheterization. (3) History of aortic stenosis: PLAN: He does have severe aortic stenosis by echocardiogram. The patient was noted to have had at least moderate aortic stenosis but had not followed up withcardiologists here. My recommendation at this time is to obtain a left heart catheterization with a possible view to TAVR. I did explain the above to the patient his and his daughter they understand and agree to proceed. I have also discussed this with the electrician substation he is at fairly high risk due to his renal dysfunction and they areaware. Will attempt to use minimal contrast agents. Thank you for allowing me to participate in the care of your patient. Please don't hesitate to callif any issues arise. 02/15/251916 Cosigner Signature (if applicable): CC: ~ Signed [facility]08-11-2025 Progress note Author Lana Menjivar [facility] Note Date/Time February 15, 2025 5: 00pm [facility] Medical Records Department [address] [place] [address] Progress Note 02/15/25 1115 MR#: [id number] Acct: [id number] Name: SAM VIDALES Rep #:[id number] : 1950 74 From: Lana Menjivar MD PCP: [place] Hospital Status:ADM IN Location: ICU ICU01-1 Subjective Subjective Patient seen and examined. His was by his bedside. He self extubated early this morning and is currently on 2L of oxygen. he denied any cough, chest pain, palpitations, dizziness, nausea, vomiting or nay other symptoms. Review of systems is otherwise negative. Objective Data Objective Data Vital Signs: Vital Signs Temp Pulse Resp BP Pulse Ox O2 Del Method O2 Flow Rate 99.2 F H 68 20 H 107/52 L 98 Nasal Cannula 2 02/15/25 08:00 02/15/25 10:00 02/15/25 10:00 02/15/25 10:00 02/15/25 10:00 02/15/25 10:00 02/15/25 10:00 FiO2 25 02/15/25 06:00 Oxygen Flow Rate (L/min) 2 Oxygen Delivery Method Nasal Cannula Weight: 172 lb 6.424 oz Body Mass Index (BMI) 24.7 Intake & Output: Intake and Output for Last 24 Hours 02/13/25 02/14/25 02/15/25 23:59 23:59 23:59 Intake Total 572.55 / 594.45 1542.72 / 1581.75 392.18 / 392.18 Output Total 3075 / 3075 4900 / 4900 900 / 900 Balance -2502.45 / -2480.55 -3357.28 / -3318.25 -507.82 / -507.82 Lab / Micro Data 02/15/25 05:20 02/15/25 08:40 Labs: Laboratory Results - last 24 hr 02/14/25 11:28: POC Glucose 135 H 02/14/25 16:11: POC Glucose 167 H 02/14/25 16:15: Ur Random Sodium 91, Urine Urea Nitrogen 201 02/14/25 23:03: POC Glucose 163 H 02/15/25 05:20: WBC 12.0 H, RBC 3.96 L, Hgb 12.1 L, Hct 34.5 L, MCV 87.1, MCH 30.6, MCHC 35.1, RDW Std Deviation 41.1, RDW Coeff of Samir 13.1, Plt Count 180, MPV 10.2, Immature Gran % (Auto) 0.500, Neut % (Auto) 79.4 H, Lymph % (Auto) 6.8L, [place] % (Auto) 10.9 H, Eos % (Auto) 2.1, Baso % (Auto) 0.3, Absolute Neuts (auto) 9.5 H, Absolute Lymphs (auto) 0.82 L, Nucleated RBC % 0, Random Vancomycin 19.8 H 02/15/25 05:29: POC Glucose 167 H 02/15/25 08:40: Sodium 140, Potassium 3.9, Chloride 99, Carbon Dioxide 17.1 L, Anion Gap 24 H, BUN 71 H, Creatinine 4.18 H, Estim Creat Clear Calc 15.77 L, Est GFR (MDRD) Non-Af 14 L, BUN/Creatinine Ratio 17.1, Glucose 189 H, Calcium 8.9 Micro: Microbiology 02/12/25 19:55 Sputum, Induced/Lukens Gram Stain - Final 02/12/25 19:55 Sputum, Induced/Lukens Respiratory Culture - Final Mixed normal respiratory elizabeth. No Streptococcus pneumoniae, beta-hemolytic Streptococcus or Staphylococcus aureus isolated. 02/12/25 19:37 Urine, Catheterized Urine Culture - Final Culture exhibits no growth. 02/12/25 19:59 Blood Culture (Wb) - Left Hand Blood Culture - Preliminary No growth in 48 hours. 02/12/25 19:00 Blood Culture (Wb) - Anticubital Right Blood Culture - Preliminary No growth in 48 hours. 02/12/25 22:50 Nasal Secretion MRSA (PCR) - Final 02/12/25 21:10 Mucosa - Nasopharyngeal Respiratory Panel (PCR) - Final 02/12/25 19:17 Mucosa - Nose SARS-CoV-2, Influenza & RSV (PCR) - Final Radiography Diagnostic Testing: Radiology Impression Renal Ultrasound 02/15/25 06:30 IMPRESSION: No acute abnormality is seen. Increased echotexture of the renal cortices bilaterally suggestive of chronic renal disease. Reading Location: [place] [address] Rhythm Strip Rhythm Strip: Sinus Rhythm Rate: 78 Ectopy: None Physical Exam Const alert and oriented x3 Constitutional Narrative: self extubated this morning, stable. On 2L of oxygen. General Appearance: cooperative HEENT normocephalic Eyes EOMs intact bilaterally Neck no lymphadenopathy Resp Resp Narrative: mildly diminished breath sounds bibasally, no wheezes or crackles. On 2L of oxygen by nasal canula. Cardio regular rate, regular rhythm, S1 normal heart sound and S2 normal heart sound GI normal to inspection, nondistended, normoactive bowel sounds, soft to palpation and non-tender Extremity normal capillary refill and no clubbing, cyanosis or edema General Extremity: no tenderness to palpation of joints or extremities Skin General Skin Exam: no breakdown Neuro CN's II-XII intact bilaterally and no focal motor deficits Motor Exam: general weakness Psych thought process normal Appearance: appropriate Assessment & Plan Assessment/Plan (1) Congestive heart failure: (2) Respiratory failure: PLAN: Plan #Acute hypoxic and hypercapnic respiratory failure due to acute decompensated heart failure * patient remains intubated and sedated. On minimal vent settings with FiO2 of 35% and PEEP of 5 * Critical care on board. * Respiratory panel negative. * Titrate oxygen to maintain saturation above 90%. * breathing treatment with bronchodilators. * being diuresed with IV lasix 60 mg 4 times daily as per critical care * proBNP was elevated at 15,846. * Patient febrile overnight so patient started on IV vancomycin and Zosyn yesterday. Blood cultures ordered as well as urine cultures. * 2D echo showed EF of 55 to 60% with moderate eccentric left ventricular hypertrophy and severe calcific AV stenosis * self extubated this morning to 2L of oxygen by nasal canula. #Elelvated troponins * Initial troponin was 146 and peaked at 167. * said he did not have any chest pain. 2D echo ordered today showed EF of 55 to 60% with no regional wall motion abnormalities and showed severe aortic stenosis * cardiology on board and planning ADILIA for further evaluation. #Severe aortic stenosis: * As per 2D echo. Cardiology on board. Per cardiology patient will need cardiac cath and ADILIA and then eventual evaluation at tertiary facility for TAVR. Cardiology to talk to patient today about ADILIA and then #JUAN on CKD IV with elevated anion gap * Cr is up to 4.18. Was 3.87 yesterday. * renal USG ordered. * nephrology consulted. Per nephro, to dc midodrine and lasix. * Renal ultrasound showed no acute abnormality and showed increased echotexture of the renal cortices bilaterally, suggestive of chronic renal disease. * Per nephrology, reivew of [facility] showed baseline Cr of 2.3 from 2022 and Cr of 1.6 in 2021. TO dc amlodipine and midodrine per cardiology. * #History of CAD s/p CABG, on aspirin and ezetimibe. Beta-blockers held due to hypotension. #Hypertension: BP meds currently on hold #Type 2 diabetes mellitus: Oral meds on hold. Insulin sliding scale. Accu-Cheks ACHS. DVT prophylaxis: On heparin Charges/Coding Visit Charges Inpatient E&M: 77821 Subs Hosp L3 02/15/25 1700 <Electronically signed by Lana Mnejivar MD> Lana Menjivar MD Cosigner Signature (if applicable): CC: ~ Signed [facility] Work Phone: 1(881) 391-827508-11-2025 Progress note [facility] Medical Records Department [address] [place] [address] Progress Note 02/15/25 1115 MR#: [id number] Acct: [id number] Name: SAM VIDALES Rep #:[id number] : 1950 74 From: Lana Menjivar MD PCP: [facility] Status:ADM IN Location: ICU ICU01-1 Subjective Subjective Patient seen and examined. His was by his bedside. He self extubated early this morning and iscurrently on 2L of oxygen. he denied any cough, chest pain, palpitations, dizziness, nausea, vomiting or nay other symptoms. Review of systems is otherwise negative. Objective Data Objective Data Vital Signs: Vital Signs Temp Pulse Resp BP Pulse Ox O2 Del Method O2 Flow Rate 99.2 F H 68 20 H 107/52 L 98 Nasal Cannula 2 02/15/25 08:00 02/15/25 10:00 02/15/25 10:00 02/15/25 10:00 02/15/25 10:00 02/15/25 10:00 02/15/25 10:00 FiO2 25 02/15/25 06:00 Oxygen Flow Rate (L/min) 2 Oxygen Delivery Method Nasal Cannula Weight: 172 lb 6.424 oz Body Mass Index (BMI) 24.7 Intake & Output: Intake and Output for Last 24 Hours 02/13/25 02/14/25 02/15/25 23:59 23:59 23:59 Intake Total 572.55 / 594.45 1542.72 / 1581.75 392.18 / 392.18 Output Total 3075 / 3075 4900 / 4900 900 / 900 Balance -2502.45 / -2480.55 -3357.28 / -3318.25 -507.82 / -507.82 Lab / Micro Data 02/15/25 05:20 02/15/25 08:40 Labs: Laboratory Results - last 24 hr 02/14/25 11:28: POC Glucose 135 H 02/14/25 16:11: POC Glucose 167 H 02/14/25 16:15: Ur Random Sodium 91, Urine Urea Nitrogen 201 02/14/25 23:03: POC Glucose 163 H 02/15/25 05:20: WBC 12.0 H, RBC 3.96 L, Hgb 12.1 L, Hct 34.5 L, MCV 87.1, MCH 30.6, MCHC 35.1, RDW Std Deviation 41.1, RDW Coeff of Samir 13.1, Plt Count 180, MPV 10.2, Immature Gran % (Auto) 0.500, Neut % (Auto) 79.4 H, Lymph % (Auto) 6.8L, [place] % (Auto) 10.9 H, Eos % (Auto) 2.1, Baso % (Auto) 0.3, Absolute Neuts (auto) 9.5 H, Absolute Lymphs (auto) 0.82 L, Nucleated RBC % 0, Random Vancomycin 19.8 H 02/15/25 05:29: POC Glucose 167 H 02/15/25 08:40: Sodium 140, Potassium 3.9, Chloride 99, Carbon Dioxide 17.1 L, Anion Gap 24 H, BUN 71 H, Creatinine 4.18 H, Estim Creat Clear Calc 15.77 L, Est GFR (MDRD) Non-Af 14 L, BUN/Creatinine Ratio 17.1, Glucose 189 H, Calcium 8.9 Micro: Microbiology 02/12/25 19:55 Sputum, Induced/Lukens Gram Stain - Final 02/12/25 19:55 Sputum, Induced/Lukens Respiratory Culture - Final Mixed normal respiratory elizabeth. No Streptococcus pneumoniae, beta-hemolytic Streptococcus or Staphylococcus aureus isolated. 02/12/25 19:37 Urine, Catheterized Urine Culture - Final Culture exhibits no growth. 02/12/25 19:59 Blood Culture (Wb) - Left Hand Blood Culture - Preliminary No growth in 48 hours. 02/12/25 19:00 Blood Culture (Wb) - Anticubital Right Blood Culture - Preliminary No growth in 48 hours. 02/12/25 22:50 Nasal Secretion MRSA (PCR) - Final 02/12/25 21:10 Mucosa - Nasopharyngeal Respiratory Panel (PCR) - Final 02/12/25 19:17 Mucosa - Nose SARS-CoV-2, Influenza & RSV (PCR) - Final Radiography Diagnostic Testing: Radiology Impression Renal Ultrasound 02/15/25 06:30 IMPRESSION: No acute abnormality is seen. Increased echotexture of the renal cortices bilaterally suggestive of chronic renal disease. Reading Location: [place] [address] Rhythm Strip Rhythm Strip: Sinus Rhythm Rate: 78 Ectopy: None Physical Exam Const alert and oriented x3 Constitutional Narrative: self extubated this morning, stable. On 2L of oxygen. General Appearance: cooperative HEENT normocephalic Eyes EOMs intact bilaterally Neck no lymphadenopathy Resp Resp Narrative: mildly diminished breath sounds bibasally, no wheezes or crackles. On 2L of oxygen by nasal canula. Cardio regular rate, regular rhythm, S1 normal heart sound and S2 normal heart sound GI normal to inspection, nondistended, normoactive bowel sounds, soft to palpation and non-tender Extremity normal capillary refill and no clubbing, cyanosis or edema General Extremity: no tenderness to palpation of joints or extremities Skin General Skin Exam: no breakdown Neuro CN's II-XII intact bilaterally and no focal motor deficits Motor Exam: general weakness Psych thought process normal Appearance: appropriate Assessment & Plan Assessment/Plan (1) Congestive heart failure: (2) Respiratory failure: PLAN: Plan #Acute hypoxic and hypercapnic respiratory failure due to acute decompensated heart failure * patient remains intubated and sedated. On minimal vent settings with FiO2 of 35% and PEEP of 5 * Critical care on board. * Respiratory panel negative. * Titrate oxygen to maintain saturation above 90%. * breathing treatment with bronchodilators. * being diuresed with IV lasix 60 mg 4 times daily as per critical care * proBNP was elevated at 15,846. * Patient febrile overnight so patient started on IV vancomycin and Zosyn yesterday. Blood culturesordered as well as urine cultures. * 2D echo showed EF of 55 to 60% with moderate eccentric left ventricular hypertrophy and severe calcific AV stenosis * self extubated this morning to 2L of oxygen by nasal canula. #Elelvated troponins * Initial troponin was 146 and peaked at 167. * said he did not have any chest pain. 2D echo ordered today showed EF of 55 to 60% with no regional wall motion abnormalities and showed severe aortic stenosis * cardiology on board and planning ADILIA for further evaluation. #Severe aortic stenosis: * As per 2D echo. Cardiology on board. Per cardiology patient will need cardiac cath and ADILIA and then eventual evaluation at tertiary facility for TAVR. Cardiology to talk to patient today about ADILIA and then #JUAN on CKD IV with elevated anion gap * Cr is up to 4.18. Was 3.87 yesterday. * renal USG ordered. * nephrology consulted. Per nephro, to dc midodrine and lasix. * Renal ultrasound showed no acute abnormality and showed increased echotexture of the renal cortices bilaterally, suggestive of chronic renal disease. * Per nephrology, reivew of [facility] showed baseline Cr of 2.3 from 2022 and Cr of 1.6 in 2021. TO dc amlodipine and midodrine per cardiology. * #History of CAD s/p CABG, on aspirin and ezetimibe. Beta-blockers held due to hypotension. #Hypertension: BP meds currently on hold #Type 2 diabetes mellitus: Oral meds on hold. Insulin sliding scale. Accu-Cheks ACHS. DVT prophylaxis: On heparin Charges/Coding Visit Charges Inpatient E&M: 96850 Subs Hosp L3 02/15/25 1700 Lana Menjivar MD Cosigner Signature (if applicable): CC: ~ Signed [facility]08-11-2025 Consult note Author Sunshine Nesbitt [facility] Note Date/Time February 15, 2025 10 :31am [facility] Medical Records Department [address] [place] [address] Consultation - Nephrology 02/15/25 1027 MR#: [id number] Acct: [id number] Name: AMBROCIOGEETHASAM Rep #:[id number] : 1950 74 From: Sunshine vides MD PCP: [facility] Status:ADM IN Location: ICU ICU01-1 Assessment & Plan Assessment/Plan (1) JUAN (acute kidney injury): PLAN: Appears to have CKD stage IV. As per admission records, creatinine was 2.8 in July. Reviewed in [facility], she had a creatinine of 2.3 in 2022. Prior to that his creatinine was 1.6 in 2021. Admission creatinine around 3.3, progressively worsening. Aggressively diuresed, likely cardiorenal physiology. Etiology of acute renal failure is likely cardiorenal syndrome. Urine analysis shows protein and some RBC, we will try to get old records from [place] about baseline status. Diuretics have been cut back. Clinically looks good, volume status looks better. Still on some oxygen but overall breathing is much better. Continue to monitor for renal recovery at this time. Renal ultrasound result pending, no obvious hydronephrosis on imaging review. Medication list reviewed,he is on amlodipine and midodrine. Can stop both of these in excess. Will discuss with hospitalist HPI Consult Data Date of Consult: 02/15/25 HPI Narrative Reason for Consultation: Acute renal failure HPI Narrative: SAM VIDALES, is a 74 M who presents to the hospital with shortness of breath. Nephrology on consultation in view of acute renal failure. He [facility] the [facility]. It seems he has history of CKD stage IV, as per admission records, creatinine was 2.8 in July 2024. Was found to have pulmonary edema on admission, was aggressively diuresed, he is significantly netnegative since admission. Self extubated this morning. Currently alert, awake,looks comfortable. Overnight he spiked some fevers, started on antibiotic coverage. Nephrology on consultation in view of worsening renal failure. Creatinine today more than 4. Good urine output, denies any obstructive symptoms. Overall breathing is better than before, not completely normal yet. Does not use any oxygen at home. No new medications according to him. Denies taking any [id number] supplements. [facility] Medical History Former tobacco use Valvular heart disease CKD (chronic kidney disease), stage IV HLD (hyperlipidemia) HTN (hypertension) CAD (coronary artery disease) Medical History unable to obtain Home Medications ?Medication ?Instructions ?Recorded ?Last Taken ?Type atorvastatin 40 mg tablet (Lipitor) 40 mg PO DAILY Hyp erlipidemia 02/13/25 Unknown History carvedilol 25 mg tablet 25 mg PO DAILY Hypertension 02/13/25 Unknown History dulaglutide 0.75 mg/0.5 mL 0.75 mg subcut QWEEK TP2DM 02/13/25 Unknown History subcutaneous pen injector empagliflozin 25 mg tablet 25 mg PO DAILY T2DM 5 Unknown History ezetimibe 10 mg tablet 10 mg PO DAILY Hypertension 02/13/25 Unknown History felodipine 10 mg tablet,extended 10 mg PO DAILY Hypert ension 02/13/25 Unknown History release 24 hr insulin glargine 100 unit/mL (3 28 unit subcut DAILY T 2DM 02/13/25 Unknown History mL) subcutaneous pen (Basaglar KwikPen U-100 Insulin) isosorbide mononitrate 30 mg 30 mg PO DAILY For Heart 02/13/25 Unknown History tablet,extended release 24 hr minoxidil 2.5 mg tablet 5 mg PO BID Hypertension 04/01 Unknown History olopatadine 0.7 % eye drops 1 drp EACH EYE DAILY Aller gic 02/13/25 Unknown History Conjuctivitis Allergy/AdvReac Type Severity Reaction Status Date / Time lisinopril AdvReac Mild Cough Verified 02/12/25 20:33 Family History (Updated 02/12/25 @ 20:[address] Vandana Bro MD) Sister Heart disease Hypertension Daughter Heart disease Hypertension Mother Heart disease Father Heart disease Family History unable to obtain Surgical History Hx of coronary artery bypass graft S/P laminectomy Surgical History unable to obtain Social History household members: spouse Smoking Status: Unknown if ever smoked how long ago did patient quit smoking: Quit 1997. alcohol intake: current alcohol intake frequency: holidays/special occasions only substance use type: does not use ROS ROS Narrative Negative except history Physical Exam Narrative Alert awake oriented x 3 no obvious distress no pallor no icterus no JVD s1s2 no murmurs lungs clear abdomen soft no organomegaly no edema no cyanosis Lab / Micro Data 02/15/25 05:20 02/15/25 08:40 Labs: Laboratory Results - last 24 hr 02/14/25 11:28: POC Glucose 135 H 02/14/25 16:11: POC Glucose 167 H 02/14/25 16:15: Ur Random Sodium 91, Urine Urea Nitrogen 201 02/14/25 23:03: POC Glucose 163 H 02/15/25 05:20: WBC 12.0 H, RBC 3.96 L, Hgb 12.1 L, Hct 34.5 L, MCV 87.1, MCH 30.6, MCHC 35.1, RDW Std Deviation 41.1, RDW Coeff of Samir 13.1, Plt Count 180, MPV 10.2, Immature Gran % (Auto) 0.500, Neut % (Auto) 79.4 H, Lymph % (Auto) 6.8L, [place] % (Auto) 10.9 H, Eos % (Auto) 2.1, Baso % (Auto) 0.3, Absolute Neuts (auto) 9.5 H, Absolute Lymphs (auto) 0.82 L, Nucleated RBC % 0, Random Vancomycin 19.8 H 02/15/25 05:29: POC Glucose 167 H 02/15/25 08:40: Sodium 140, Potassium 3.9, Chloride 99, Carbon Dioxide 17.1 L, Anion Gap 24 H, BUN 71 H, Creatinine 4.18 H, Estim Creat Clear Calc 15.77 L, Est GFR (MDRD) Non-Af 14 L, BUN/Creatinine Ratio 17.1, Glucose 189 H, Calcium 8.9 Micro: Microbiology 02/12/25 19:59 Blood Culture (Wb) - Left Hand Blood Culture - Preliminary No growth in 48 hours. 02/12/25 19:00 Blood Culture (Wb) - Anticubital Right Blood Culture - Preliminary No growth in 48 hours. 02/12/25 19:55 Sputum, Induced/Lukens Gram Stain - Final 02/12/25 19:55 Sputum, Induced/Lukens Respiratory Culture - Preliminary Appears to be normal respiratory elizabeth. Further studies to follow. 02/12/25 19:37 Urine, Catheterized Urine Culture - Preliminary Culture exhibits no growth. Rhythm Strip Rhythm Strip: Sinus Rhythm Rate: 78 Ectopy: None 02/15/25 1031 <Electronically signed by Sunshine Nesbitt MD> Cosigner Signature (if applicable): CC: [facility]~ Signed [facility] Work Phone: 1(115) 514-487508-11-2025 Progress note Author Boom Garg [facility] Note Date/Time February 15, 2025 9: 27am [facility] Medical Records Department [address] [place] [address] Progress Note - Location And Measurement Technician 02/15/25 0757 MR#: [id number] Acct: [id number] Name: SAM VIDALES Rep #:[id number] : 1950 74 From: Boom Garg DO PCP: [facility] Status:ADM IN Location: ICU ICU01-1 Assessment & Plan Assessment/Plan (1) Respiratory failure: (2) Congestive heart failure: PLAN: Plan RECOMMENDATIONS: 1. Supplemental oxygen to maintain saturations at or above 90%. 2. Continue empiric antimicrobials. 3. Recheck basic metabolic profile. Recommend holding Lasix if creatinine worsens. 4. Continue scheduled bronchodilators and antimicrobials. 5. Continue appropriate DVT prophylaxis. IMPRESSIONS: 1. Acute hypoxemic and hypercapnic respiratory failure Most likely secondary to acute decompensated heart failure. The patient has improved clinically with IV diuresis. He did ultimately self extubate this morning, but is doing well from a respiratory perspective on 2 L/min via nasal cannula. Medical therapy will be continued under the discretion of cardiology. The patient may ultimately require cardiac catheterization and possible referralto a tertiary care facility for TAVR. Continue to encourage incentive spirometer use and mobilize patient as tolerated. Continue to wean supplementaloxygen to maintain saturations at or above 90%. Antimicrobials can likely be discontinued over the next 24 to 48 hours if cultures remain negative. 2. Acute versus chronic kidney disease Creatinine continues to rise. Recommend holding diuretics for now. Renal ultrasound is pending, as is nephrology consultation. 3. History of tobacco dependency in remission/diabetes mellitus/hypertension/history of coronary artery disease status post CABG Complicates care, management, recovery and prognosis. Continue current supportive care as noted above. This note was generated with [employer] dictation software. It may contain incorrectwords, spelling, and punctuation that were not noted in checking the note beforesigning. Subjective Subjective The patient was seen and examined at the bedside this morning. Events from the last 24 hours have been reviewed. The patient is currently afebrile, hemodynamically stable and maintaining appropriate oxygen saturations on 2 L/minvia nasal cannula. The patient self extubated this morning at approximately 6:10 AM. However, he has done well from a respiratory perspective following extubation. The patient is documented to be overall net -6.1 L for the hospitalization. The patient reported that he is extremely thirsty and is requesting water. White blood cell count is mildly elevated at 12,000. Hemoglobin and platelet count are stable. BMP is pending. Objective Data Objective Data The patient's most recent lab work, culture data and imaging studies have all been personally reviewed. Infectious workup has been unrevealing to date. Surface echocardiogram demonstrated moderate concentric LVH with an ejection fraction of 55 to 60%. Severe aortic stenosis was noted. Vital Signs: Vital Signs Temp Pulse Resp BP Pulse Ox O2 Del Method O2 Flow Rate 98.7 F 76 21 H 136/64 H 97 Nasal Cannula 2 02/15/25 04:00 02/15/25 07:22 02/15/25 07:22 02/15/25 07:00 02/15/25 07:22 02/15/25 07:22 02/15/25 07:22 FiO2 25 02/15/25 06:00 Oxygen Flow Rate (L/min) 2 Oxygen Delivery Method Nasal Cannula Weight: 172 lb 6.424 oz Body Mass Index (BMI) 24.7 Intake & Output: Intake and Output for Last 24 Hours 02/13/25 02/14/25 02/15/25 23:59 23:59 23:59 Intake Total 572.55 / 594.45 1542.72 / 1581.75 392.18 / 392.18 Output Total 3075 / 3075 4900 / 4900 900 / 900 Balance -2502.45 / -2480.55 -3357.28 / -3318.25 -507.82 / -507.82 Lab / Micro Data Attestation: I reviewed the patient's lab results. 02/15/25 05:20 02/15/25 08:40 Labs: Laboratory Results - last 24 hr 02/14/25 09:07: POC Glucose 124 H 02/14/25 11:28: POC Glucose 135 H 02/14/25 16:11: POC Glucose 167 H 02/14/25 16:15: Ur Random Sodium 91, Urine Urea Nitrogen 201 02/14/25 23:03: POC Glucose 163 H 02/15/25 05:20: WBC 12.0 H, RBC 3.96 L, Hgb 12.1 L, Hct 34.5 L, MCV 87.1, MCH 30.6, MCHC 35.1, RDW Std Deviation 41.1, RDW Coeff of Samir 13.1, Plt Count 180, MPV 10.2, Immature Gran % (Auto) 0.500, Neut % (Auto) 79.4 H, Lymph % (Auto) 6.8L, [place] % (Auto) 10.9 H, Eos % (Auto) 2.1, Baso % (Auto) 0.3, Absolute Neuts (auto) 9.5 H, Absolute Lymphs (auto) 0.82 L, Nucleated RBC % 0, Random Vancomycin 19.8 H 02/15/25 05:29: POC Glucose 167 H Micro: Microbiology 02/12/25 19:59 Blood Culture (Wb) - Left Hand Blood Culture - Preliminary No growth in 48 hours. 02/12/25 19:00 Blood Culture (Wb) - Anticubital Right Blood Culture - Preliminary No growth in 48 hours. 02/12/25 19:55 Sputum, Induced/Lukens Gram Stain - Final 02/12/25 19:55 Sputum, Induced/Lukens Respiratory Culture - Preliminary Appears to be normal respiratory elizabeth. Further studies to follow. 02/12/25 19:37 Urine, Catheterized Urine Culture - Preliminary Culture exhibits no growth. 02/12/25 22:50 Nasal Secretion MRSA (PCR) - Final 02/12/25 21:10 Mucosa - Nasopharyngeal Respiratory Panel (PCR) - Final 02/12/25 19:17 Mucosa - Nose SARS-CoV-2, Influenza & RSV (PCR) - Final Rhythm Strip Rhythm Strip: Sinus Rhythm Rate: 78 Ectopy: None Physical Exam Const alert and no apparent distress General Appearance: cooperative HEENT normocephalic and head/scalp atraumatic HEENT Narrative: Dry mucous membranes. Eyes PERRL, EOMs intact bilaterally and conjunctivae normal Neck supple General: trachea midline Chest inspection of chest normal Resp normal respiratory effort Auscultation: diminished lung sounds; Negative for rales, rhonchi or wheezes Cardio regular rate and regular rhythm Heart Sounds: murmur GI normal to inspection, nondistended, normoactive bowel sounds Extremity no clubbing, cyanosis or edema Skin no rashes or lesions noted Neuro CN's II-XII intact bilaterally, moves all extremities and no focal motor deficits Psych Activity / Motor Behavior: restless Charges/Coding Visit Charges Inpatient E&M: 63943 Subs Hosp L3 02/15/25926 <Electronically signed by Boom Garg DO> Cosigner Signature (if applicable): CC: ~ Signed [facility] Work Phone: 1(427) 733-573108-11-2025 Consult note [facility] Medical Records Department [address] [place] [address] Consultation - Nephrology 02/15/25 1027 MR#: [id number] Acct: [id number] Name: SAM VIDALES Rep #:[id number] : 1950 74 From: Sunshine vides MD PCP: [facility] Status:ADM IN Location: ICU ICU01-1 Assessment & Plan Assessment/Plan (1) JUAN (acute kidney injury): PLAN: Appears to have CKD stage IV. As per admission records, creatinine was 2.8 in July. Reviewed in [facility], she had a creatinine of 2.3 in 2022. Prior to that his creatinine was 1.6 in 2021. Admission creatinine around 3.3, progressively worsening. Aggressively diuresed, likely cardiorenal physiology. Etiology of acute renal failure is likely cardiorenal syndrome. Urine analysis shows protein and some RBC, we will try to get old records from [place] about baseline status. Diuretics have been cut back. Clinically looks good, volume status looks better. Still on some oxygen but overall breathing is much better. Continue to monitor for renal recovery at this time. Renal ultrasound result pending, no obvious hydronephrosis on imaging review. Medication list reviewed,he is on amlodipine and midodrine. Can stop both of these in excess. Will discuss with hospitalist HPI Consult Data Date of Consult: 02/15/25 HPI Narrative Reason for Consultation: Acute renal failure HPI Narrative: SAM VIDALES, is a 74 M who presents to the hospital with shortness of breath. Nephrology on consultation in view of acute renal failure. He gets most of hiscare through the [facility]. It seems he has history of CKD stage IV, as per admission records, creatinine was 2.8 in July 2024. Was found to have pulmonary edema on admission, was aggressively diuresed, he is significantly netnegative since admission. Self extubated this morning. Currently alert, awake,looks comfortable. Overnight hespiked some fevers, started on antibiotic coverage. Nephrology on consultation in view of worseningrenal failure. Creatinine today more than 4. Good urine output, denies any obstructive symptoms. Overall breathing is better than before, not completely normal yet. Does not use any oxygen at home. No new medications according to him. Denies taking any iuzn-jfq-kqbvinn supplements. [facility] Medical History Former tobacco use Valvular heart disease CKD (chronic kidney disease), stage IV HLD (hyperlipidemia) HTN (hypertension) CAD (coronary artery disease) Medical History unable to obtain Home Medications ?Medication ?Instructions ?Recorded ?Last Taken ?Type atorvastatin 40 mg tablet (Lipitor) 40 mg PO DAILY Hyp erlipidemia 02/13/25 Unknown History carvedilol 25 mg tablet 25 mg PO DAILY Hypertension 02/13/25 Unknown History dulaglutide 0.75 mg/0.5 mL 0.75 mg subcut QWEEK TP2DM 02/13/25 Unknown History subcutaneous pen injector empagliflozin 25 mg tablet 25 mg PO DAILY T2DM 5 Unknown History ezetimibe 10 mg tablet 10 mg PO DAILY Hypertension 02/13/25 Unknown History felodipine 10 mg tablet,extended 10 mg PO DAILY Hypert ension 02/13/25 Unknown History release 24 hr insulin glargine 100 unit/mL (3 28 unit subcut DAILY T 2DM 02/13/25 Unknown History mL) subcutaneous pen (Basaglar KwikPen U-100 Insulin) isosorbide mononitrate 30 mg 30 mg PO DAILY For Heart 02/13/25 Unknown History tablet,extended release 24 hr minoxidil 2.5 mg tablet 5 mg PO BID Hypertension 04/01 Unknown History olopatadine 0.7 % eye drops 1 drp EACH EYE DAILY Aller gic 02/13/25 Unknown History Conjuctivitis Allergy/AdvReac Type Severity Reaction Status Date / Time lisinopril AdvReac Mild Cough Verified 02/12/25 20:33 Family History (Updated 02/12/25 @ 20:[address] Vandana Bro MD) Sister Heart disease Hypertension Daughter Heart disease Hypertension Mother Heart disease Father Heart disease Family History unable to obtain Surgical History Hx of coronary artery bypass graft S/P laminectomy Surgical History unable to obtain Social History household members: spouse Smoking Status: Unknown if ever smoked how long ago did patient quit smoking: Quit 1997. alcohol intake: current alcohol intake frequency: holidays/special occasions only substance use type: does not use ROS ROS Narrative Negative except history Physical Exam Narrative Alert awake oriented x 3 no obvious distress no pallor no icterus no JVD s1s2 no murmurs lungs clear abdomen soft no organomegaly no edema no cyanosis Lab / Micro Data 02/15/25 05:20 02/15/25 08:40 Labs: Laboratory Results - last 24 hr 02/14/25 11:28: POC Glucose 135 H 02/14/25 16:11: POC Glucose 167 H 02/14/25 16:15: Ur Random Sodium 91, Urine Urea Nitrogen 201 02/14/25 23:03: POC Glucose 163 H 02/15/25 05:20: WBC 12.0 H, RBC 3.96 L, Hgb 12.1 L, Hct 34.5 L, MCV 87.1, MCH 30.6, MCHC 35.1, RDW Std Deviation 41.1, RDW Coeff of Samir 13.1, Plt Count 180, MPV 10.2, Immature Gran % (Auto) 0.500, Neut % (Auto) 79.4 H, Lymph % (Auto) 6.8L, [place] % (Auto) 10.9 H, Eos % (Auto) 2.1, Baso % (Auto) 0.3, Absolute Neuts (auto) 9.5 H, Absolute Lymphs (auto) 0.82 L, Nucleated RBC % 0, Random Vancomycin 19.8 H 02/15/25 05:29: POC Glucose 167 H 02/15/25 08:40: Sodium 140, Potassium 3.9, Chloride 99, Carbon Dioxide 17.1 L, Anion Gap 24 H, BUN 71 H, Creatinine 4.18 H, Estim Creat Clear Calc 15.77 L, Est GFR (MDRD) Non-Af 14 L, BUN/Creatinine Ratio 17.1, Glucose 189 H, Calcium 8.9 Micro: Microbiology 02/12/25 19:59 Blood Culture (Wb) - Left Hand Blood Culture - Preliminary No growth in 48 hours. 02/12/25 19:00 Blood Culture (Wb) - Anticubital Right Blood Culture - Preliminary No growth in 48 hours. 02/12/25 19:55 Sputum, Induced/Lukens Gram Stain - Final 02/12/25 19:55 Sputum, Induced/Lukens Respiratory Culture - Preliminary Appears to be normal respiratory elizabeth. Further studies to follow. 02/12/25 19:37 Urine, Catheterized Urine Culture - Preliminary Culture exhibits no growth. Rhythm Strip Rhythm Strip: Sinus Rhythm Rate: 78 Ectopy: None 02/15/25 1031 Cosigner Signature (if applicable): CC: [facility]~ Signed [facility]08-11-2025 Radiology Diagnostic study note [facility] Imaging Services [address] [place], [place] [id number] Kidney and Bladder MR#: [id number] Acct: [id number] Name: SAM VIDALES Rep #: [id number] : 1950 M 74 From: Mychal Lozano MD PCP: [facility] Status: ADM IN Study:Kidney and Bladder Date of Exam: 0 02/15/25 Exam# [id number] Ordering Dr: Larissa Menjivar MD PROCEDURE: KIDNEY AND BLADDER 02/15/2025 REASON FOR EXAM: JUAN TECHNIQUE: KIDNEY AND BLADDER COMPARISON: None FINDINGS: Kidneys: Normal renal sizes, parenchymal thicknesses, and echotextures. [place]: No evidence of hydronephrosis. Cysts or Masses: No cysts or large solid renal masses. Other: Increased echotexture of the renal cortices bilaterally suggestive of chronic medical renal disease. RIGHT Kidney Size: 11.1 cm x 4.9 cm x 5.7 cm Volume: 162.5 mL Cortical Thickness (if discernible): 16 mm (>6mm is normal) LEFT Kidney Size: 10.6 cm x 5.9 cm x 4.8 cm Volume: 155.2 mL Cortical Thickness (if discernible): 18 (>6mm is normal) Bladder is not visualized. A Zimmer catheter is in-situ. US/Kidney and Bladder IMPRESSION: No acute abnormality is seen. Increased echotexture of the renal cortices bilaterally suggestive of chronic renal disease. Reading Location: [facility]1 CC: Dr. Lana Menjivar MD; [facility] ~ [employer]lorobutadiene Scrubber Operator: Signed [facility]08-11-2025 Consult note Author Oral Khanna [facility] Note Date/Time February 15, 2025 7: 45am [facility] Medical Records Department [address] [place] [address] Pharmacokinetic/Renal -Consult 02/15/25 0638 MR#: [id number] Acct: [id number] Name: SAM VIDALES Rep #:[id number] : 1950 74 From: Oral Khanna [facility]CP: [facility] Status:ADM IN Y Location: ICU ICU01-1 Consult Antibiotic Management Pharmacy has been consulted to manage selected antibiotic: Vancomycin Type of Intervention Type of Consult: Follow-up Suspected Infection Suspected Infection: Other (EMPIRIC) Prior Doses of Antibiotics Prior Doses of Antibiotics Received/Current Regimen: Vancomycin 2000 mg IV x 1 given 02/14/25 @ 0933 Labs Labs: Sodium 139 mmol/L (133-145) 02/14/25 05:05 Potassium 3.8 mmol/L (3.3-5.1) 02/14/25 05:05 Chloride 102 mmol/L (98-108) 02/14/25 05:05 Carbon Dioxide 19.2 mmol/L (21.0-32.0) L 02/14/25 05:05 Anion Gap 18 (5-15) H 02/14/25 05:05 BUN 66 mg/dL (4-19) H 02/14/25 05:05 Creatinine 3.87 mg/dL (0.70-1.20) H 02/14/25 05:05 Est GFR (MDRD) Non-Af 15 (>60) L 02/14/25 05:05 BUN/Creatinine Ratio 17.0 RATIO (10-20) 02/14/25 05:05 Glucose 133 mg/dL (70-99) H 02/14/25 05:05 Random Vancomycin 19.8 ug/mL (0.0-15.0) H 02/15/25 05:20 Microbiology Microbiology: Microbiology 02/12/25 19:55 Sputum, Induced/Lukens Gram Stain - Final 02/12/25 19:55 Sputum, Induced/Lukens Respiratory Culture - Preliminary Appears to be normal respiratory elizabeth. Further studies to follow. 02/12/25 19:37 Urine, Catheterized Urine Culture - Preliminary Culture exhibits no growth. 02/12/25 22:50 Nasal Secretion MRSA (PCR) - Final 02/12/25 21:10 Mucosa - Nasopharyngeal Respiratory Panel (PCR) - Final 02/12/25 19:17 Mucosa - Nose SARS-CoV-2, Influenza & RSV (PCR) - Final Dosing Weight Weight used for dosin kg Estimated Creatinine Clearance Estimated Creatinine Clearance: ~ 17 Goal Trough Goal Trough: 15-20 mcg/mL Pharmacy Plan for Drug Dosing Pharmacy Plan for Drug Dosing: Vancomycin random level = 19.8, give x 1 dose of 1250 mg vancomycin this AM, random tomorrow (02/16) in the AM. Pharmacy Service will continue to monitor and adjust dosing as required. Follow-Up Labs Follow-Up Labs: Trough: Vancomycin Date/Time Labs Ordered Labs to be done on [date and time ordered]: 02/16/25 @ 0600 02/15/25 0640 <Electronically signed by Oral marin> Date _ Oral Khanna 02/15/25 0745 <Electronically signed by Lana marie MD> Cosigner Signature (if applicable): Date Lana Menjivar MD CC: ~ Signed [facility] Work Phone: [phone]) 322-748608-11-2025 Progress note [facility] Medical Records Department [address] [place] [id number] Progress Note - Location And Measurement Technician 02/15/25 0757 MR#: [id number] Acct: [id number] Name: SAM VIDALES Rep #:[id number] : 1950 74 From: Boom Garg DO PCP: [facility] Status:ADM IN Location: ICU ICU01-1 Assessment & Plan Assessment/Plan (1) Respiratory failure: (2) Congestive heart failure: PLAN: Plan RECOMMENDATIONS: 1. Supplemental oxygen to maintain saturations at or above 90%. 2. Continue empiric antimicrobials. 3. Recheck basic metabolic profile. Recommend holding Lasix if creatinine worsens. 4. Continue scheduled bronchodilators and antimicrobials. 5. Continue appropriate DVT prophylaxis. IMPRESSIONS: 1. Acute hypoxemic and hypercapnic respiratory failure Most likely secondary to acute decompensated heart failure. The patient has improved clinically with IV diuresis. He did ultimately self extubate this morning, but is doing well from a respiratory perspective on 2 L/min via nasal cannula. Medical therapy will be continued under the discretion of cardiology. The patient may ultimately require cardiac catheterization and possible referralto a tertiary care facility for TAVR. Continue to encourage incentive spirometer use and mobilize patient as tolerated. Continue to wean supplementaloxygen to maintain saturations at or above 90%. Antimicrobials can likely be discontinued over the next 24 to 48 hours if cultures remain negative. 2. Acute versus chronic kidney disease Creatinine continues to rise. Recommend holding diuretics for now. Renal ultrasound is pending, as is nephrology consultation. 3. History of tobacco dependency in remission/diabetes mellitus/hypertension/history of coronary artery disease status post CABG Complicates care, management, recovery and prognosis. Continue current supportive care as noted above. This note was generated with [employer] dictation software. It may contain incorrectwords, spelling, and punctuation that were not noted in checking the note beforesigning. Subjective Subjective The patient was seen and examined at the bedside this morning. Events from the last 24 hours have been reviewed. The patient is currently afebrile, hemodynamically stable and maintaining appropriate oxygen saturations on 2 L/minvia nasal cannula. The patient self extubated this morning at approximately 6:10 AM. However, he has done well from a respiratory perspective following extubation. The patient is documented to be overall net -6.1 L for the hospitalization. The patient reported that he isextremely thirsty and is requesting water. White blood cell count is mildly elevated at 12,000. Hemo globin and platelet count are stable. BMP is pending. Objective Data Objective Data The patient's most recent lab work, culture data and imaging studies have all been personally reviewed. Infectious workup has been unrevealing to date. Surface echocardiogram demonstrated moderate concentric LVH with an ejection fraction of 55 to 60%. Severe aortic stenosis was noted. Vital Signs: Vital Signs Temp Pulse Resp BP Pulse Ox O2 Del Method O2 Flow Rate 98.7 F 76 21 H 136/64 H 97 Nasal Cannula 2 02/15/25 04:00 02/15/25 07:22 02/15/25 07:22 02/15/25 07:00 02/15/25 07:22 02/15/25 07:22 02/15/25 07:22 FiO2 25 02/15/25 06:00 Oxygen Flow Rate (L/min) 2 Oxygen Delivery Method Nasal Cannula Weight: 172 lb 6.424 oz Body Mass Index (BMI) 24.7 Intake & Output: Intake and Output for Last 24 Hours 02/13/25 02/14/25 02/15/25 23:59 23:59 23:59 Intake Total 572.55 / 594.45 1542.72 / 1581.75 392.18 / 392.18 Output Total 3075 / 3075 4900 / 4900 900 / 900 Balance -2502.45 / -2480.55 -3357.28 / -3318.25 -507.82 / -507.82 Lab / Micro Data Attestation: I reviewed the patient's lab results. 02/15/25 05:20 02/15/25 08:40 Labs: Laboratory Results - last 24 hr 02/14/25 09:07: POC Glucose 124 H 02/14/25 11:28: POC Glucose 135 H 02/14/25 16:11: POC Glucose 167 H 02/14/25 16:15: Ur Random Sodium 91, Urine Urea Nitrogen 201 02/14/25 23:03: POC Glucose 163 H 02/15/25 05:20: WBC 12.0 H, RBC 3.96 L, Hgb 12.1 L, Hct 34.5 L, MCV 87.1, MCH 30.6, MCHC 35.1, RDW Std Deviation 41.1, RDW Coeff of Samir 13.1, Plt Count 180, MPV 10.2, Immature Gran % (Auto) 0.500, Neut % (Auto) 79.4 H, Lymph % (Auto) 6.8L, [place] % (Auto) 10.9 H, Eos % (Auto) 2.1, Baso % (Auto) 0.3, Absolute Neuts (auto) 9.5 H, Absolute Lymphs (auto) 0.82 L, Nucleated RBC % 0, Random Vancomycin 19.8 H 02/15/25 05:29: POC Glucose 167 H Micro: Microbiology 02/12/25 19:59 Blood Culture (Wb) - Left Hand Blood Culture - Preliminary No growth in 48 hours. 02/12/25 19:00 Blood Culture (Wb) - Anticubital Right Blood Culture - Preliminary No growth in 48 hours. 02/12/25 19:55 Sputum, Induced/Lukens Gram Stain - Final 02/12/25 19:55 Sputum, Induced/Lukens Respiratory Culture - Preliminary Appears to be normal respiratory elizabeth. Further studies to follow. 02/12/25 19:37 Urine, Catheterized Urine Culture - Preliminary Culture exhibits no growth. 02/12/25 22:50 Nasal Secretion MRSA (PCR) - Final 02/12/25 21:10 Mucosa - Nasopharyngeal Respiratory Panel (PCR) - Final 02/12/25 19:17 Mucosa - Nose SARS-CoV-2, Influenza & RSV (PCR) - Final Rhythm Strip Rhythm Strip: Sinus Rhythm Rate: 78 Ectopy: None Physical Exam Const alert and no apparent distress General Appearance: cooperative HEENT normocephalic and head/scalp atraumatic HEENT Narrative: Dry mucous membranes. Eyes PERRL, EOMs intact bilaterally and conjunctivae normal Neck supple General: trachea midline Chest inspection of chest normal Resp normal respiratory effort Auscultation: diminished lung sounds; Negative for rales, rhonchi or wheezes Cardio regular rate and regular rhythm Heart Sounds: murmur GI normal to inspection, nondistended, normoactive bowel sounds Extremity no clubbing, cyanosis or edema Skin no rashes or lesions noted Neuro CN's II-XII intact bilaterally, moves all extremities and no focal motor deficits Psych Activity / Motor Behavior: restless Charges/Coding Visit Charges Inpatient E&M: 16056 Subs Hosp L3 02/15/25 0927 Cosigner Signature (if applicable): CC: ~ Signed [facility]08-11-2025 Consult note [facility] Medical Records Department [address] [place] [address] Pharmacokinetic/Renal -Consult 02/15/25 0638 MR#: [id number] Acct: [id number] Name: AMBROCIOGEETHASAM Rep #:[id number] : 1950 74 From: Oral Khanna PCP: [facility] Status:ADM IN Y Location: ICU ICU01-1 Consult Antibiotic Management Pharmacy has been consulted to manage selected antibiotic: Vancomycin Type of Intervention Type of Consult: Follow-up Suspected Infection Suspected Infection: Other (EMPIRIC) Prior Doses of Antibiotics Prior Doses of Antibiotics Received/Current Regimen: Vancomycin 2000 mg IV x 1 given 02/14/25 @ 0933 Labs Labs: Sodium 139 mmol/L (133-145) 02/14/25 05:05 Potassium 3.8 mmol/L (3.3-5.1) 02/14/25 05:05 Chloride 102 mmol/L (98-108) 02/14/25 05:05 Carbon Dioxide 19.2 mmol/L (21.0-32.0) L 02/14/25 05:05 Anion Gap 18 (5-15) H 02/14/25 05:05 BUN 66 mg/dL (4-19) H 02/14/25 05:05 Creatinine 3.87 mg/dL (0.70-1.20) H 02/14/25 05:05 Est GFR (MDRD) Non-Af 15 (>60) L 02/14/25 05:05 BUN/Creatinine Ratio 17.0 RATIO (10-20) 02/14/25 05:05 Glucose 133 mg/dL (70-99) H 02/14/25 05:05 Random Vancomycin 19.8 ug/mL (0.0-15.0) H 02/15/25 05:20 Microbiology Microbiology: Microbiology 02/12/25 19:55 Sputum, Induced/Lukens Gram Stain - Final 02/12/25 19:55 Sputum, Induced/Lukens Respiratory Culture - Preliminary Appears to be normal respiratory elizabeth. Further studies to follow. 02/12/25 19:37 Urine, Catheterized Urine Culture - Preliminary Culture exhibits no growth. 02/12/25 22:50 Nasal Secretion MRSA (PCR) - Final 02/12/25 21:10 Mucosa - Nasopharyngeal Respiratory Panel (PCR) - Final 02/12/25 19:17 Mucosa - Nose SARS-CoV-2, Influenza & RSV (PCR) - Final Dosing Weight Weight used for dosin kg Estimated Creatinine Clearance Estimated Creatinine Clearance: ~ 17 Goal Trough Goal Trough: 15-20 mcg/mL Pharmacy Plan for Drug Dosing Pharmacy Plan for Drug Dosing: Vancomycin random level = 19.8, give x 1 dose of 1250 mg vancomycin this AM, random tomorrow (02/16)in the AM. Pharmacy Service will continue to monitor and adjust dosing as required. Follow-Up Labs Follow-Up Labs: Trough: Vancomycin Date/Time Labs Ordered Labs to be done on [date and time ordered]: 02/16/25 @ 0600 02/15/25 0640 r> Date _ Oral Khanna 02/15/25 0745 m > Richard Signature (if applicable): Date Lana Menjivar MD CC: ~ Signed [facility]08-10-2025 Consult note Author Lauri Thompson [facility] Note Date/Time February 14, 2025 3: 57pm [facility] Medical Records Department [address] [place] [address] Pharmacokinetic/Renal -Consult 02/14/25 0951 MR#: [id number] Acct: [id number] Name: SOBEIDASAM Rep #:[id number] : 1950 74 From: Lauri flowers PCP: [facility] Status:ADM IN Y Location: ICU ICU01-1 Consult Antibiotic Management Pharmacy has been consulted to manage selected antibiotic: Vancomycin Type of Intervention Type of Consult: New start Labs Labs: Sodium 139 mmol/L (133-145) 02/14/25 05:05 Potassium 3.8 mmol/L (3.3-5.1) 02/14/25 05:05 Chloride 102 mmol/L (98-108) 02/14/25 05:05 Carbon Dioxide 19.2 mmol/L (21.0-32.0) L 02/14/25 05:05 Anion Gap 18 (5-15) H 02/14/25 05:05 BUN 66 mg/dL (4-19) H 02/14/25 05:05 Creatinine 3.87 mg/dL (0.70-1.20) H 02/14/25 05:05 Est GFR (MDRD) Non-Af 15 (>60) L 02/14/25 05:05 BUN/Creatinine Ratio 17.0 RATIO (10-20) 02/14/25 05:05 Glucose 133 mg/dL (70-99) H 02/14/25 05:05 Microbiology Microbiology: Microbiology 02/12/25 19:55 Sputum, Induced/Lukens Gram Stain - Final 02/12/25 22:50 Nasal Secretion MRSA (PCR) - Final 02/12/25 21:10 Mucosa - Nasopharyngeal Respiratory Panel (PCR) - Final 02/12/25 19:17 Mucosa - Nose SARS-CoV-2, Influenza & RSV (PCR) - Final Dosing Weight Weight used for dosin.5 kg Estimated Creatinine Clearance Estimated Creatinine Clearance: 17 ML/MIN Goal Trough Goal Trough: 15-20 mcg/mL Pharmacy Plan for Drug Dosing Pharmacy Plan for Drug Dosing: Give load this morning of 2000mg IV x1 (based on the patient's weight). Since the patient's CrCl is below 20 ml/min, will order a random vanc level to be drawn tomorrow morning to determine if a dose should be given tomorrow. Pharmacy Service will continue to monitor and adjust dosing as required. Follow-Up Labs Follow-Up Labs: Trough: Vancomycin (random) Date/Time Labs Ordered Labs to be done on [date and time ordered]: 02/15/25 06:00 02/14/25 0954 <Electronically signed by Lauri gregorio> Date _ Lauri Thompson 02/14/25 1557 <Electronically signed by Lana marie MD> Cosigner Signature (if applicable): Date Lana Menjivar MD CC: ~ Signed [facility] Work Phone: [phone]) 843-690808-10-2025 Progress note Author Lana Menjivar [facility] Note Date/Time February 14, 2025 2: 41pm [facility] Medical Records Department [address] [place] [address] Progress Note 02/14/25 1407 MR#: [id number] Acct: [id number] Name: SAM VIDALES Rep #:[id number] : 1950 74 From: Lana Menjivar MD PCP: [facility] Status:ADM IN Location: ICU ICU01-1 Subjective Subjective Patient seen and examined today. He remains intubated and sedated. According to his nurse he tried turning down his sedation to attempt a spontaneous breathing trial but patient became very tachypneic so she had to turn his sedation back up. Patient was febrile overnight. He still remains on the ventilator. Unable to do review of systems. Objective Data Objective Data Vital Signs: Vital Signs Temp Pulse Resp BP Pulse Ox O2 Del Method O2 Flow Rate 99.1 F 60 14 183/72 H 97 Mechanical Ventilator 15 02/14/25 13:00 02/14/25 13:00 02/14/25 13:00 02/14/25 13:00 02/14/25 13:00 02/14/25 13:00 02/12/25 18:45 FiO2 02/14/25 13:00 Oxygen Flow Rate (L/min) 15 Oxygen Delivery Method Mechanical Ventilator Weight: 170 lb 13.732 oz Body Mass Index (BMI) 24.4 Intake & Output: Intake and Output for Last 24 Hours 02/12/25 02/13/25 02/14/25 23:59 23:59 23:59 Intake Total 186.25 / 195.95 572.55 / 594.45 987.06 / 987.06 Output Total 3075 / 3075 1999 Balance 186.25 / 195.95 -2502.45 / -2480.55 -1012.94 / -1012.94 Lab / Micro Data 02/14/25 05:05 02/14/25 05:05 Labs: Laboratory Results - last 24 hr 02/13/25 12:48: POC Glucose 124 H 02/13/25 17:32: POC Glucose 141 H 02/13/25 23:05: POC Glucose 121 H 02/14/25 05:05: WBC 10.8, RBC 3.50 L, Hgb 10.6 L, Hct 30.8 L, MCV 88.0, MCH 30.3, MCHC 34.4, RDW Std Deviation 42.6, RDW Coeff of Samir 13.3, Plt Count 147 L,MPV 10.4, Immature Gran % (Auto) 0.500, Neut % (Auto) 73.8 H, Lymph % (Auto) 11.2 L, [place] % (Auto) 12.1 H, Eos % (Auto) 1.8, Baso % (Auto) 0.6, Absolute Neuts (auto) 8.0 H, Absolute Lymphs (auto) 1.20, Nucleated RBC % 0, Sodium 139, Potassium 3.8, Chloride 102, Carbon Dioxide 19.2 L, Anion Gap 18 H, BUN 66 H, Creatinine 3.87 H, Estim Creat Clear Calc 17.03 L, Est GFR (MDRD) Non-Af 15 L, BUN/Creatinine Ratio 17.0, Glucose 133 H, Calcium 9.0, Magnesium 2.8 H, Total Bilirubin 0.49, AST 20, ALT 47, Alkaline Phosphatase 94, Total Protein 6.7, Albumin 3.8, Globulin 2.9, Albumin/Globulin Ratio 1.3, POC Glucose 126 H 02/14/25 09:07: POC Glucose 124 H 02/14/25 11:28: POC Glucose 135 H Micro: Microbiology 02/12/25 19:37 Urine, Catheterized Urine Culture - Preliminary Culture exhibits no growth. 02/12/25 19:55 Sputum, Induced/Lukens Gram Stain - Final 02/12/25 22:50 Nasal Secretion MRSA (PCR) - Final 02/12/25 21:10 Mucosa - Nasopharyngeal Respiratory Panel (PCR) - Final 02/12/25 19:17 Mucosa - Nose SARS-CoV-2, Influenza & RSV (PCR) - Final Radiography Diagnostic Testing: Radiology Impression Echocardiogram 02/12/25 22:09 Interpretation Summary The 3D full volume ejection fraction is 55-60 %. Severe calcific AV stenosis AV max pG 95 mmhg AV mean PG 64 mmhg unable tomeasure BARBARA No prior TTE tocompare Ordering Physician: Vandana Bro Referring Physician: [facility] Performed By: Gisell Guo RCS Rhythm Strip Rhythm Strip: Sinus Rhythm Rate: 78 Ectopy: None Physical Exam Const Constitutional Narrative: intubated, sedated. RASS score is -4. HEENT normocephalic Eyes EOMs intact bilaterally Lymph Lymphatic: no lymphedema noted Resp Resp Narrative: intubated and sedated. Moderately diminished breath sounds bibasilarly. No wheezes or crackles. FiO2 of 25% with PEEP of 5 Cardio regular rate, regular rhythm, S1 normal heart sound and S2 normal heart sound GI normal to inspection, nondistended, normoactive bowel sounds, soft to palpation and non-tender Extremity normal capillary refill and no clubbing, cyanosis or edema General Extremity: no tenderness to palpation of joints or extremities Skin General Skin Exam: no breakdown Neuro Neuro Narrative: intubated, sedated. RASS score is -4. Assessment & Plan Assessment/Plan (1) Congestive heart failure: (2) Respiratory failure: PLAN: Plan #Acute hypoxic and hypercapnic respiratory failure due to acute decompensated heart failure * patient remains intubated and sedated. On minimal vent settings with FiO2 of 35% and PEEP of 5 * Critical care on board. * Respiratory panel negative. * Titrate oxygen to maintain saturation above 90%. * breathing treatment with bronchodilators. * being diuresed with IV lasix 60 mg 4 times daily as per critical care * proBNP was elevated at 15,846. * Patient febrile overnight so patient started on IV vancomycin and Zosyn today. Blood cultures ordered as well as urine cultures. * 2D echo showed EF of 55 to 60% with moderate eccentric left ventricular hypertrophy and severe calcific AV stenosis #Elelvated troponins * Initial troponin was 146 and peaked at 167. * said he did not have any chest pain. 2D echo ordered today showed EF of 55 to 60% with no regional wall motion abnormalities. #Severe aortic stenosis: * As per 2D echo. Cardiology on board. Per cardiology patient will need cardiac cath and ADILIA and then eventual evaluation at tertiary facility for TAVR. #Elevated creatinine with elevated anion gap * Creatinine is being further up to 3.87 today. Was 3.39 yesterday. Will order renal ultrasound and check Fe urea as well as consult nephrology. * #History of CAD s/p CABG, on aspirin and ezetimibe. Beta-blockers held due to hypotension. #Hypertension: BP meds currently on hold #Type 2 diabetes mellitus: Oral meds on hold. Insulin sliding scale. Accu-Cheks ACHS. DVT prophylaxis: On heparin Charges/Coding Visit Charges Inpatient E&M: 92209 Subs Hosp L3 02/14/25 1441 <Electronically signed by Lana Menjivar MD> Lana Menjivar MD Cosigner Signature (if applicable): CC: ~ Signed [facility] Work Phone: 1(128) 346-725908-10-2025 Consult note [facility] Medical Records Department [address] [place] [address] Pharmacokinetic/Renal -Consult 02/14/25950 MR#: [id number] Acct: [id number] Name: SAM VIDALES Rep #:[id number] : 1950 74 From: Lauri flowers PCP: [facility] Status:ADM IN Y Location: ICU ICU01-1 Consult Antibiotic Management Pharmacy has been consulted to manage selected antibiotic: Vancomycin Type of Intervention Type of Consult: New start Labs Labs: Sodium 139 mmol/L (133-145) 02/14/25 05:05 Potassium 3.8 mmol/L (3.3-5.1) 02/14/25 05:05 Chloride 102 mmol/L (98-108) 02/14/25 05:05 Carbon Dioxide 19.2 mmol/L (21.0-32.0) L 02/14/25 05:05 Anion Gap 18 (5-15) H 02/14/25 05:05 BUN 66 mg/dL (4-19) H 02/14/25 05:05 Creatinine 3.87 mg/dL (0.70-1.20) H 02/14/25 05:05 Est GFR (MDRD) Non-Af 15 (>60) L 02/14/25 05:05 BUN/Creatinine Ratio 17.0 RATIO (10-20) 02/14/25 05:05 Glucose 133 mg/dL (70-99) H 02/14/25 05:05 Microbiology Microbiology: Microbiology 02/12/25 19:55 Sputum, Induced/Lukens Gram Stain - Final 02/12/25 22:50 Nasal Secretion MRSA (PCR) - Final 02/12/25 21:10 Mucosa - Nasopharyngeal Respiratory Panel (PCR) - Final 02/12/25 19:17 Mucosa - Nose SARS-CoV-2, Influenza & RSV (PCR) - Final Dosing Weight Weight used for dosin.5 kg Estimated Creatinine Clearance Estimated Creatinine Clearance: 17 ML/MIN Goal Trough Goal Trough: 15-20 mcg/mL Pharmacy Plan for Drug Dosing Pharmacy Plan for Drug Dosing: Give load this morning of 2000mg IV x1 (based on the patient's weight). Since the patient's CrCl isbelow 20 ml/min, will order a random vanc level to be drawn tomorrow morning to determine if a doseshould be given tomorrow. Pharmacy Service will continue to monitor and adjust dosing as required. Follow-Up Labs Follow-Up Labs: Trough: Vancomycin (random) Date/Time Labs Ordered Labs to be done on [date and time ordered]: 02/15/25 06:00 02/14/25 0954 erg> Date _ Lauri Thompson 02/14/25 1557 m > Cosigner Signature (if applicable): Date Lana Menjivar MD CC: ~ Signed [facility]08-10-2025 Consult note Author Deanne Medley [facility] Note Date/Time February 14, 2025 1: 36pm [facility] Medical Records Department [address] [place] [address] Consultation - Cardiology 02/14/25 1328 MR#: [id number] Acct: [id number] Name: AMBROCIOGEETHASAM Rep #:[id number] : 1950 74 From: Deanne Medley MD [facility]CP: [facility] Status:ADM IN Location: ICU ICU01-1 Assessment & Plan Assessment/Plan (1) History of diabetes mellitus: (2) Chronic kidney disease: (3) Hx of coronary artery bypass graft: (4) Congestive heart failure: (5) History of aortic stenosis: PLAN: Cardiac care plan; 74-year-old patient, with history of CAD status post CABG x 4 in 2017 That include FLORES to LAD, free GWEN graft to OM1 SVG to OM 2 and SVG to posterolateral branch. Recent evaluation by echocardiogram showed severe calcific aortic valve stenosiswith a mean gradient of 64 mmHg and maximum gradient across the aortic valve is 95 mmHg. Limited the study was unable to measure the aortic valve area however significantly elevated gradient consistent with severe calcific aortic valve stenosis he had a history of aortic valve stenosis. Diabetes mellitus CKD History of hypertension. Presentation [facility]. According to him follow-up with the [facility] cardiology group as well as the [facility]. And he had symptoms of fatigue tiredness for the last couple of days And EMS was called and noted patient was hypoxemic with oxygen saturation of around 80% and he was very diaphoretic pale with respiratory failure patient intubated and was a started on IV Lasix and has been stable hemodynamically. I discussed cardiac care plan in detail which will include the following 1. Once stable patient will require left heart cath/possible to evaluate for progression of CAD As his CABG has been in 2017 ADILIA to complete evaluation and assess aortic valve. An discuss further, and referral for TAVR evaluation. Cardiology team will follow up this patient during this admission. Deanne Medley MD,[facility] watershed program manager HPI Consult Data Date of Consult: 02/14/25 HPI Narrative Reason for Consultation: CAD s/p CABG/pulm edema HPI Narrative: SAM VIDALES, is a 74 M who presents [facility] Medical History Former tobacco use Valvular heart disease CKD (chronic kidney disease), stage IV HLD (hyperlipidemia) HTN (hypertension) CAD (coronary artery disease) Medical History unable to obtain Home Medications ?Medication ?Instructions ?Recorded ?Last Taken ?Type atorvastatin 40 mg tablet (Lipitor) 40 mg PO DAILY Hyp erlipidemia 02/13/25 Unknown History carvedilol 25 mg tablet 25 mg PO DAILY Hypertension 02/13/25 Unknown History dulaglutide 0.75 mg/0.5 mL 0.75 mg subcut QWEEK TP2DM 02/13/25 Unknown History subcutaneous pen injector empagliflozin 25 mg tablet 25 mg PO DAILY T2DM 5 Unknown History ezetimibe 10 mg tablet 10 mg PO DAILY Hypertension 02/13/25 Unknown History felodipine 10 mg tablet,extended 10 mg PO DAILY Hypert ension 02/13/25 Unknown History release 24 hr insulin glargine 100 unit/mL (3 28 unit subcut DAILY T 2DM 02/13/25 Unknown History mL) subcutaneous pen (Basaglar KwikPen U-100 Insulin) isosorbide mononitrate 30 mg 30 mg PO DAILY For Heart 02/13/25 Unknown History tablet,extended release 24 hr minoxidil 2.5 mg tablet 5 mg PO BID Hypertension 04/01 Unknown History olopatadine 0.7 % eye drops 1 drp EACH EYE DAILY Aller gic 02/13/25 Unknown History Conjuctivitis Allergy/AdvReac Type Severity Reaction Status Date / Time lisinopril AdvReac Mild Cough Verified 02/12/25 20:33 Family History (Updated 02/12/25 @ 20:[address] Vandana Bro MD) Sister Heart disease Hypertension Daughter Heart disease Hypertension Mother Heart disease Father Heart disease Family History unable to obtain Surgical History Hx of coronary artery bypass graft S/P laminectomy Surgical History unable to obtain Social History household members: spouse Smoking Status: Unknown if ever smoked how long ago did patient quit smoking: Quit 1997. alcohol intake: current alcohol intake frequency: holidays/special occasions only substance use type: does not use Physical Exam Cardio Cardio Narrative: Seen and evaluated at bedside patient intubated family were at bedside Cardiac rhythm sinus rhythm Cardiac exam S1-S2 is regular Systolic murmur well heard in the aortic valve area No diastolic murmur Chest exam diminished air entry bilateral with bilateral bilateral rales. Examination lower extremity no lower extremity edema. Risk Stratification Risk Stratification Applicable: No Objective Data Vital Signs: Vital Signs Temp Pulse Resp BP Pulse Ox O2 Del Method O2 Flow Rate 99.1 F 60 14 183/72 H 97 Mechanical Ventilator 15 02/14/25 13:00 02/14/25 13:00 02/14/25 13:00 02/14/25 13:00 02/14/25 13:00 02/14/25 13:00 02/12/25 18:45 FiO2 02/14/25 13:00 Oxygen Flow Rate (L/min) 15 Oxygen Delivery Method Mechanical Ventilator Weight: 170 lb 13.732 oz Body Mass Index (BMI) 24.4 Intake & Output: Intake and Output for Last 24 Hours 02/12/25 02/13/25 02/14/25 23:59 23:59 23:59 Intake Total 186.25 / 195.95 572.55 / 594.45 953.23 / 953.23 Output Total 3075 / 3075 1999 / 1999 Balance 186.25 / 195.95 -2502.45 / -2480.55 -1046.77 / -1046.77 Lab / Micro Data 02/14/25 05:05 02/14/25 05:05 Labs: Laboratory Results - last 24 hr 02/13/25 12:48: POC Glucose 124 H 02/13/25 17:32: POC Glucose 141 H 02/13/25 23:05: POC Glucose 121 H 02/14/25 05:05: WBC 10.8, RBC 3.50 L, Hgb 10.6 L, Hct 30.8 L, MCV 88.0, MCH 30.3, MCHC 34.4, RDW Std Deviation 42.6, RDW Coeff of Samir 13.3, Plt Count 147 L,MPV 10.4, Immature Gran % (Auto) 0.500, Neut % (Auto) 73.8 H, Lymph % (Auto) 11.2 L, [place] % (Auto) 12.1 H, Eos % (Auto) 1.8, Baso % (Auto) 0.6, Absolute Neuts (auto) 8.0 H, Absolute Lymphs (auto) 1.20, Nucleated RBC % 0, Sodium 139, Potassium 3.8, Chloride 102, Carbon Dioxide 19.2 L, Anion Gap 18 H, BUN 66 H, Creatinine 3.87 H, Estim Creat Clear Calc 17.03 L, Est GFR (MDRD) Non-Af 15 L, BUN/Creatinine Ratio 17.0, Glucose 133 H, Calcium 9.0, Magnesium 2.8 H, Total Bilirubin 0.49, AST 20, ALT 47, Alkaline Phosphatase 94, Total Protein 6.7, Albumin 3.8, Globulin 2.9, Albumin/Globulin Ratio 1.3, POC Glucose 126 H 02/14/25 09:07: POC Glucose 124 H 02/14/25 11:28: POC Glucose 135 H Micro: Microbiology 02/12/25 19:37 Urine, Catheterized Urine Culture - Preliminary Culture exhibits no growth. 02/12/25 19:55 Sputum, Induced/Lukens Gram Stain - Final Rhythm Strip Rhythm Strip: Sinus Rhythm Rate: 78 Ectopy: None Cardiology Labs/Tests 02/14/25 05:05: WBC 10.8, RBC 3.50 L, Hgb 10.6 L, Hct 30.8 L, MCV 88.0, MCH 30.3, MCHC 34.4, Plt Count 147 L, MPV 10.4, Immature Gran % (Auto) 0.500, Neut %(Auto) 73.8 H, Lymph % (Auto) 11.2 L, [place] % (Auto) 12.1 H, Eos % (Auto) 1.8, Baso % (Auto) 0.6, Absolute Neuts (auto) 8.0 H, Nucleated RBC % 0, Sodium 139, Potassium 3.8, Chloride 102, Carbon Dioxide 19.2 L, Anion Gap 18 H, BUN 66 H, Creatinine 3.87 H, Est GFR (MDRD) Non-Af 15 L, BUN/Creatinine Ratio 17.0, [id number] H, Calcium 9.0, Magnesium 2.8 H, Total Bilirubin 0.49 Rhythm: EKG: ECHO: Stress Test: Cardiac Cath: PCI: CT Surgery: Holter monitor: EPS: PPM: CXR: Chest CT Scan: Radiography Diagnostic Testing: Radiology Impression Echocardiogram 02/12/25 22:09 Interpretation Summary The 3D full volume ejection fraction is 55-60 %. Severe calcific AV stenosis AV max pG 95 mmhg AV mean PG 64 mmhg unable tomeasure BARBARA No prior TTE tocompare Ordering Physician: Vandana Bro Referring Physician: [facility] Performed By: Gisell Guo RCS 02/14/25 1336 <Electronically signed by Deanne Medley MD> Cosigner Signature (if applicable): CC: [facility]~ Signed [facility] Work Phone: [phone] 952-345608-10-2025 Progress note [facility] Medical Records Department [address] [place] [address] Progress Note 02/14/25 1407 MR#: [id number] Acct: [id number] Name: SAM VIDALES Rep #:[id number] : 1950 74 From: Lana Menjivar MD PCP: [facility] Status:ADM IN Location: ICU ICU01-1 Subjective Subjective Patient seen and examined today. He remains intubated and sedated. According to his nurse he tried turning down his sedation to attempt a spontaneous breathing trial but patient became very tachypneic so she had to turn his sedation back up. Patient was febrile overnight. He still remains on the ventilator. Unable to do review of systems. Objective Data Objective Data Vital Signs: Vital Signs Temp Pulse Resp BP Pulse Ox O2 Del Method O2 Flow Rate 99.1 F 60 14 183/72 H 97 Mechanical Ventilator 15 02/14/25 13:00 02/14/25 13:00 02/14/25 13:00 02/14/25 13:00 02/14/25 13:00 02/14/25 13:00 02/12/25 18:45 FiO2 02/14/25 13:00 Oxygen Flow Rate (L/min) 15 Oxygen Delivery Method Mechanical Ventilator Weight: 170 lb 13.732 oz Body Mass Index (BMI) 24.4 Intake & Output: Intake and Output for Last 24 Hours 02/12/25 02/13/25 02/14/25 23:59 23:59 23:59 Intake Total 186.25 / 195.95 572.55 / 594.45 987.06 / 987.06 Output Total 3075 / 3075 1999 / 1999 Balance 186.25 / 195.95 -2502.45 / -2480.55 -1012.94 / -1012.94 Lab / Micro Data 02/14/25 05:05 02/14/25 05:05 Labs: Laboratory Results - last 24 hr 02/13/25 12:48: POC Glucose 124 H 02/13/25 17:32: POC Glucose 141 H 02/13/25 23:05: POC Glucose 121 H 02/14/25 05:05: WBC 10.8, RBC 3.50 L, Hgb 10.6 L, Hct 30.8 L, MCV 88.0, MCH 30.3, MCHC 34.4, RDW Std Deviation 42.6, RDW Coeff of Samir 13.3, Plt Count 147 L,MPV 10.4, Immature Gran % (Auto) 0.500, Neut % (Auto) 73.8 H, Lymph % (Auto) 11.2 L, [place] % (Auto) 12.1 H, Eos % (Auto) 1.8, Baso % (Auto) 0.6,Absolute Neuts (auto) 8.0 H, Absolute Lymphs (auto) 1.20, Nucleated RBC % 0, Sodium 139, Potassium 3.8, Chloride 102, Carbon Dioxide 19.2 L, Anion Gap 18 H, BUN 66 H, Creatinine 3.87 H, Estim Creat Clear Calc 17.03 L, Est GFR (MDRD) Non-Af 15 L, BUN/Creatinine Ratio 17.0, Glucose 133 H, Calcium 9.0, Magnesium 2.8 H, Total Bilirubin 0.49, AST 20, ALT 47, Alkaline Phosphatase 94, Total Protein 6.7, Albumin 3.8, Globulin 2.9, Albumin/Globulin Ratio 1.3, POC Glucose 126 H 02/14/25 09:07: POC Glucose 124 H 02/14/25 11:28: POC Glucose 135 H Micro: Microbiology 02/12/25 19:37 Urine, Catheterized Urine Culture - Preliminary Culture exhibits no growth. 02/12/25 19:55 Sputum, Induced/Lukens Gram Stain - Final 02/12/25 22:50 Nasal Secretion MRSA (PCR) - Final 02/12/25 21:10 Mucosa - Nasopharyngeal Respiratory Panel (PCR) - Final 02/12/25 19:17 Mucosa - Nose SARS-CoV-2, Influenza & RSV (PCR) - Final Radiography Diagnostic Testing: Radiology Impression Echocardiogram 02/12/25 22:09 Interpretation Summary The 3D full volume ejection fraction is 55-60 %. Severe calcific AV stenosis AV max pG 95 mmhg AV mean PG 64 mmhg unable tomeasure BARBARA No prior TTE tocompare Ordering Physician: Vandana Bro Referring Physician: [facility] Performed By: Gisell Guo RCS Rhythm Strip Rhythm Strip: Sinus Rhythm Rate: 78 Ectopy: None Physical Exam Const Constitutional Narrative: intubated, sedated. RASS score is -4. HEENT normocephalic Eyes EOMs intact bilaterally Lymph Lymphatic: no lymphedema noted Resp Resp Narrative: intubated and sedated. Moderately diminished breath sounds bibasilarly. No wheezes or crackles. FiO2 of 25% with PEEP of 5 Cardio regular rate, regular rhythm, S1 normal heart sound and S2 normal heart sound GI normal to inspection, nondistended, normoactive bowel sounds, soft to palpation and non-tender Extremity normal capillary refill and no clubbing, cyanosis or edema General Extremity: no tenderness to palpation of joints or extremities Skin General Skin Exam: no breakdown Neuro Neuro Narrative: intubated, sedated. RASS score is -4. Assessment & Plan Assessment/Plan (1) Congestive heart failure: (2) Respiratory failure: PLAN: Plan #Acute hypoxic and hypercapnic respiratory failure due to acute decompensated heart failure * patient remains intubated and sedated. On minimal vent settings with FiO2 of 35% and PEEP of 5 * Critical care on board. * Respiratory panel negative. * Titrate oxygen to maintain saturation above 90%. * breathing treatment with bronchodilators. * being diuresed with IV lasix 60 mg 4 times daily as per critical care * proBNP was elevated at 15,846. * Patient febrile overnight so patient started on IV vancomycin and Zosyn today. Blood cultures ordered as well as urine cultures. * 2D echo showed EF of 55 to 60% with moderate eccentric left ventricular hypertrophy and severe calcific AV stenosis #Elelvated troponins * Initial troponin was 146 and peaked at 167. * said he did not have any chest pain. 2D echo ordered today showed EF of 55 to 60% with no regional wall motion abnormalities. #Severe aortic stenosis: * As per 2D echo. Cardiology on board. Per cardiology patient will need cardiac cath and ADILIA and then eventual evaluation at tertiary facility for TAVR. #Elevated creatinine with elevated anion gap * Creatinine is being further up to 3.87 today. Was 3.39 yesterday. Will order renal ultrasound andcheck Fe urea as well as consult nephrology. * #History of CAD s/p CABG, on aspirin and ezetimibe. Beta-blockers held due to hypotension. #Hypertension: BP meds currently on hold #Type 2 diabetes mellitus: Oral meds on hold. Insulin sliding scale. Accu-Cheks ACHS. DVT prophylaxis: On heparin Charges/Coding Visit Charges Inpatient E&M: 35029 [facility] L3 02/14/25 1441 Lana Menjivar MD Cosigner Signature (if applicable): CC: ~ Signed [facility]08-10-2025 Consult note [facility] Medical Records Department [address] [place] [address] Consultation - Cardiology 02/14/25 1328 MR#: [id number] Acct: [id number] Name: SAM VIDALES Efren Rep #:[id number] : 1950 74 From: Deanne Medley MD PCP: [facility] Status:ADM IN Location: ICU ICU01-1 Assessment & Plan Assessment/Plan (1) History of diabetes mellitus: (2) Chronic kidney disease: (3) Hx of coronary artery bypass graft: (4) Congestive heart failure: (5) History of aortic stenosis: PLAN: Cardiac care plan; 74-year-old patient, with history of CAD status post CABG x 4 in 2017 That include FLORES to LAD, free GWEN graft to OM1 SVG to OM 2 and SVG to posterolateral branch. Recent evaluation by echocardiogram showed severe calcific aortic valve stenosiswith a mean gradient of 64 mmHg and maximum gradient across the aortic valve is 95 mmHg. Limited the study was unable to measure the aortic valve area however significantly elevated gradient consistent with severe calcific aortic valve stenosis he had a history of aortic valve stenosis. Diabetes mellitus CKD History of hypertension. Presentation [facility]. According to him follow-up with the [facility] cardiology group as well as the [facility]. And he had symptoms of fatigue tiredness for the last couple of days And EMS was called and noted patient was hypoxemic with oxygen saturation of around 80% and he was very diaphoretic pale with respiratory failure patient intubated and was a started on IV Lasix and has been stable hemodynamically. I discussed cardiac care plan in detail which will include the following 1. Once stable patient will require left heart cath/possible to evaluate for progression of CAD As his CABG has been in 2017 ADILIA to complete evaluation and assess aortic valve. An discuss further, and referral for TAVR evaluation. Cardiology team will follow up this patient during this admission. Deanne Medley MD,[facility] watershed program manager HPI Consult Data Date of Consult: 02/14/25 HPI Narrative Reason for Consultation: CAD s/p CABG/pulm edema HPI Narrative: SAM VIDALES, is a 74 M who presents [facility] Medical History Former tobacco use Valvular heart disease CKD (chronic kidney disease), stage IV HLD (hyperlipidemia) HTN (hypertension) CAD (coronary artery disease) Medical History unable to obtain Home Medications ?Medication ?Instructions ?Recorded ?Last Taken ?Type atorvastatin 40 mg tablet (Lipitor) 40 mg PO DAILY Hyp erlipidemia 02/13/25 Unknown History carvedilol 25 mg tablet 25 mg PO DAILY Hypertension 02/13/25 Unknown History dulaglutide 0.75 mg/0.5 mL 0.75 mg subcut QWEEK TP2DM 02/13/25 Unknown History subcutaneous pen injector empagliflozin 25 mg tablet 25 mg PO DAILY T2DM 5 Unknown History ezetimibe 10 mg tablet 10 mg PO DAILY Hypertension 02/13/25 Unknown History felodipine 10 mg tablet,extended 10 mg PO DAILY Hypert ension 02/13/25 Unknown History release 24 hr insulin glargine 100 unit/mL (3 28 unit subcut DAILY T 2DM 02/13/25 Unknown History mL) subcutaneous pen (Basaglar KwikPen U-100 Insulin) isosorbide mononitrate 30 mg 30 mg PO DAILY For Heart 02/13/25 Unknown History tablet,extended release 24 hr minoxidil 2.5 mg tablet 5 mg PO BID Hypertension 04/01 Unknown History olopatadine 0.7 % eye drops 1 drp EACH EYE DAILY Aller gic 02/13/25 Unknown History Conjuctivitis Allergy/AdvReac Type Severity Reaction Status Date / Time lisinopril AdvReac Mild Cough Verified 02/12/25 20:33 Family History (Updated 02/12/25 @ 20:[address] Vandana Bro MD) Sister Heart disease Hypertension Daughter Heart disease Hypertension Mother Heart disease Father Heart disease Family History unable to obtain Surgical History Hx of coronary artery bypass graft S/P laminectomy Surgical History unable to obtain Social History household members: spouse Smoking Status: Unknown if ever smoked how long ago did patient quit smoking: Quit 1997. alcohol intake: current alcohol intake frequency: holidays/special occasions only substance use type: does not use Physical Exam Cardio Cardio Narrative: Seen and evaluated at bedside patient intubated family were at bedside Cardiac rhythm sinus rhythm Cardiac exam S1-S2 is regular Systolic murmur well heard in the aortic valve area No diastolic murmur Chest exam diminished air entry bilateral with bilateral bilateral rales. Examination lower extremity no lower extremity edema. Risk Stratification Risk Stratification Applicable: No Objective Data Vital Signs: Vital Signs Temp Pulse Resp BP Pulse Ox O2 Del Method O2 Flow Rate 99.1 F 60 14 183/72 H 97 Mechanical Ventilator 15 02/14/25 13:00 02/14/25 13:00 02/14/25 13:00 02/14/25 13:00 02/14/25 13:00 02/14/25 13:00 02/12/25 18:45 FiO2 25 02/14/25 13:00 Oxygen Flow Rate (L/min) 15 Oxygen Delivery Method Mechanical Ventilator Weight: 170 lb 13.732 oz Body Mass Index (BMI) 24.4 Intake & Output: Intake and Output for Last 24 Hours 02/12/25 02/13/25 02/14/25 23:59 23:59 23:59 Intake Total 186.25 / 195.95 572.55 / 594.45 953.23 / 953.23 Output Total 3075 / 3075 1999 Balance 186.25 / 195.95 -2502.45 / -2480.55 -1046.77 / -1046.77 Lab / Micro Data 02/14/25 05:05 02/14/25 05:05 Labs: Laboratory Results - last 24 hr 02/13/25 12:48: POC Glucose 124 H 02/13/25 17:32: POC Glucose 141 H 02/13/25 23:05: POC Glucose 121 H 02/14/25 05:05: WBC 10.8, RBC 3.50 L, Hgb 10.6 L, Hct 30.8 L, MCV 88.0, MCH 30.3, MCHC 34.4, RDW Std Deviation 42.6, RDW Coeff of Samir 13.3, Plt Count 147 L,MPV 10.4, Immature Gran % (Auto) 0.500, Neut % (Auto) 73.8 H, Lymph % (Auto) 11.2 L, [place] % (Auto) 12.1 H, Eos % (Auto) 1.8, Baso % (Auto) 0.6,Absolute Neuts (auto) 8.0 H, Absolute Lymphs (auto) 1.20, Nucleated RBC % 0, Sodium 139, Potassium 3.8, Chloride 102, Carbon Dioxide 19.2 L, Anion Gap 18 H, BUN 66 H, Creatinine 3.87 H, Estim Creat Clear Calc 17.03 L, Est GFR (MDRD) Non-Af 15 L, BUN/Creatinine Ratio 17.0, Glucose 133 H, Calcium 9.0, Magnesium 2.8 H, Total Bilirubin 0.49, AST 20, ALT 47, Alkaline Phosphatase 94, Total Protein 6.7, Albumin 3.8, Globulin 2.9, Albumin/Globulin Ratio 1.3, POC Glucose 126 H 02/14/25 09:07: POC Glucose 124 H 02/14/25 11:28: POC Glucose 135 H Micro: Microbiology 02/12/25 19:37 Urine, Catheterized Urine Culture - Preliminary Culture exhibits no growth. 02/12/25 19:55 Sputum, Induced/Lukens Gram Stain - Final Rhythm Strip Rhythm Strip: Sinus Rhythm Rate: 78 Ectopy: None Cardiology Labs/Tests 02/14/25 05:05: WBC 10.8, RBC 3.50 L, Hgb 10.6 L, Hct 30.8 L, MCV 88.0, MCH 30.3, MCHC 34.4, Plt Count 147 L, MPV 10.4, Immature Gran % (Auto) 0.500, Neut %(Auto) 73.8 H, Lymph % (Auto) 11.2 L, [place] % (Auto) 12.1 H, Eos % (Auto) 1.8, Baso % (Auto) 0.6, Absolute Neuts (auto) 8.0 H, Nucleated RBC % 0, Sodium 139, Potassium 3.8, Chloride 102, Carbon Dioxide 19.2 L, Anion Gap 18 H, BUN 66 H, Creatinine 3.87 H, Est GFR (MDRD) Non-Af 15 L, BUN/Creatinine Ratio 17.0, [id number] H, Calcium 9.0, Magnesium 2.8 H, Total Bilirubin 0.49 Rhythm: EKG: ECHO: Stress Test: Cardiac Cath: PCI: CT Surgery: Holter monitor: EPS: PPM: CXR: Chest CT Scan: Radiography Diagnostic Testing: Radiology Impression Echocardiogram 02/12/25 22:09 Interpretation Summary The 3D full volume ejection fraction is 55-60 %. Severe calcific AV stenosis AV max pG 95 mmhg AV mean PG 64 mmhg unable tomeasure BARBARA No prior TTE tocompare Ordering Physician: Vandana Bro Referring Physician: [facility] Performed By: Gisell Guo RCS 02/14/25 5546 Cosigner Signature (if applicable): CC: [facility]~ Signed [facility]08-10-2025 Progress note Author Jan Yen [facility] Note Date/Time February 14, 2025 10 :55am [facility] Medical Records Department [address] [place] [address] Progress Note - Location And Measurement Technician 02/14/25 1029 MR#: [id number] Acct: [id number] Name: SAM VIDALES Rep #:[id number] : 1950 74 From: Jan Valencia PCP: [facility] Status:ADM IN Location: ICU ICU01-1 Objective Data Objective Data Vital Signs: Vital Signs Last response 3 Temperature 37.5 C H 02/14/25 10:00 Temperature Source Core 02/14/25 10:00 Pulse Rate 63 02/14/25 10:08 Pulse Strength Weak (1+) 02/13/25 09:04 Respiratory Rate 14 02/14/25 10:08 Respiratory Effort Mechanically Ventilated 02/14/25 03:47 Respiratory Depth Normal 02/14/25 03:47 Respiratory Pattern Normal 02/14/25 10:08 Blood Pressure 114/50 L 02/14/25 10:00 Blood Pressure Mean 71 02/14/25 10:00 Blood Pressure Source Monitor 02/14/25 10:00 Blood Pressure Position Semi-Fowlers 02/14/25 10:00 Blood Pressure Location Right Arm 02/14/25 10:00 Pulse Ox 98 02/14/25 10:06 Oxygen Delivery Method Mechanical Ventilator 02/14/25 10:00 Oxygen Flow Rate (L/min) 15 02/12/25 18:45 Fraction of Inspired Oxygen (FIO2) 25 02/14/25 10:06 I&O: I&O Last 24 Hours 3 02/13/25 02/13/25 02/14/25 11:59 23:59 11:59 Intake Total 267.81 / 594.45 304.74 / 594.45 307.72 / 307.72 Output Total 1250 / 3075 1825 / 3075 1200 / 1200 Balance -982.19 / -2480.55 -1520.26 / -2480.55 -892.28 / -892.28 I&O: Total Stay 3 02/12/25 18:44 thru 02/14/25 10:08 Intake Total 1066.52 Output Total 4275 Balance -3208.48 Current Meds Ordered / Administered: Current meds ordered / Administered 3 Generic Name Dose Route Start Last Admin Trade Name Freq PRN Reason Stop Dose Admin Acetaminophen 650 mg 02/12/25 22:09 Acetaminophen 650 Mg Suppository RC Q4H PRN PRN Fever, pain 1-10 Acetaminophen 650 mg 02/12/25 22:09 Acetaminophen 325 Mg Tablet PO Q4H PRN PRN Fever, pain 1-04/16 Al Hydroxide/Mg Hydroxide 30 ml 02/12/25 22:09 Mag Hydrox/Al Hydrox/Simeth 30 Ml Udc PO Q6H PRN PRN Gastric Burning Albuterol Sulfate 2.5 mg 02/12/25 22:09 Albuterol 2.5 Mg/3 Ml Vial.Neb. INHALATION Q2H PRN PRN Dyspnea, wheezing Albuterol/Ipratropium 3 ml 02/12/25 22:09 02/14/25 07:06 Ipratropium/Albuterol Sulfate 3 Ml Ampul.Neb INHALATION 3 ml Q4HWA.RT LORIN Administration Calamine/Phenol 1 applic 02/12/25 22:09 02/14/25 08:40 Menthol/Lanolin/Calamine/Znox 113 Gm Tube TOPICAL 1 applic 4X/DAY LORIN Administration Protocol Chlorhexidine Gluconate 15 ml 02/12/25 22:09 02/14/25 08:40 Chlorhexidine 15 Ml PO 15 ml BID LORIN Administration Chlorhexidine Gluconate 1 each 02/14/25 10:00 02/14/25 08:43 Chlorhexidine Gluc 2% Cloth 1 Each [place] TOPICAL 1 each DAILY LORIN Administration Furosemide 60 mg 02/13/25 14:00 02/14/25 08:38 Furosemide 100 Mg/10 Ml Vial IV 60 mg 4X/DAY LORIN Administration Guaifenesin 10 ml 02/12/25 22:09 Guaifenesin 10 Ml Udc (200mg/10ml) PO Q4H PRN PRN COUGH Heparin Sodium (Porcine) 5,000 unit 02/12/25 22:09 02/14/25 08:38 Heparin Injection (Vial) 5,000 Unit/Ml Vial SC 5,000 unit Q12 LORIN Administration Hydralazine HCl 10 mg 02/12/25 22:09 Hydralazine 20 Mg/Ml Vial IV Q4H PRN PRN SBP > 160 Protocol Pantoprazole Sodium 40 mg/ 100 mls @ 330 mls/hr 02/12/25 22:09 02/14/25 10:01 Sodium Chloride IV Infused Q12 LORIN Infusion Fentanyl 100 mls @ 5 mls/hr 02/12/25 22:09 02/14/25 08:33 CONT INF 100 mcg/hr UD LORIN 10 mls/hr Administration Protocol 50 MCG/HR Sodium Chloride 250 mls @ 15 mls/hr 02/12/25 22:13 IV .[id number] PRN Saline Flush Sodium Chloride 250 mls @ 15 mls/hr 02/12/25 22:13 IV .[id number] PRN Additional IVPB Infusion Propofol 1,000 mg in 100 mls @ 4.746 mls/hr 02/12/25 22:30 02/14/25 08:31 Diprivan CONT INF 25 mcg/kg/min .Q12H LORIN 11.9 mls/hr Administration Protocol 10 MCG/KG/MIN Piperacillin Sod/Tazobactam 50 mls @ 12.5 mls/hr 02/14/25 08:30 02/14/25 10:10 Sod 3.375 gm/ Sodium Chloride IV 12.5 mls/hr Q12 LORIN Administration Vancomycin IV-PHARMACY TO DOSE 500 mls @ 250 mls/hr 02/14/25 07:43 1 each/ Sodium Chloride IV X1 PRN Rx to Dose Protocol Vancomycin HCl 2,000 mg/ 540 mls @ 250 mls/hr 02/14/25 09:00 02/14/25 09:33 Sodium Chloride IV 02/14/25 11:09 250 mls/hr X1 ONE Administration Insulin Human Lispro 0 unit 02/13/25 06:00 02/14/25 05:19 Insulin Lispro 100 Unit/Ml Insuln.Pen SC Not Given Q6 [facility] Protocol Melatonin 3 mg 02/12/25 22:09 Melatonin 3 Mg Tablet PO QHS PRN PRN INSOMNIA Midodrine 10 mg 02/12/25 22:09 02/14/25 08:39 Midodrine Hcl 5 Mg Tablet PO 10 mg TIDCM LORIN Administration Nitroglycerin 0.4 mg 02/12/25 22:09 Nitroglycerin (Inpatient Use) 0.4 Mg Tab.Subl SL Q5M PRN CARDIAC/CHEST PAIN Ondansetron HCl 4 mg 02/12/25 22:09 Ondansetron 4 Mg/2 Ml Vial IV Q8H PRN PRN NAUSEA/VOMITING Senna/Docusate Sodium 2 tablet 02/12/25 22:09 Senna/Docusate Sodium 1 Tablet PO BID PRN PRN Constipation Sodium Chloride 5 ml 02/12/25 22:09 Sodium Cl For Inhalation 15 Ml Vial.Neb. INHALATION Q5M PRN Suctioning Sodium Chloride 10 - 40 ml 02/12/25 22:13 02/14/25 08:38 0.9% Saline Lock 10 Ml Syringe IV 30 ml UD PRN Administration SALINE FLUSH Vancomycin Protocol 1 lab 02/15/25 05:00 Vancomycin Trough/Random Due 02/15/25 07:00 DAILY [facility] Lab / Micro Data 02/14/25 05:05 02/14/25 05:05 Labs: Laboratory Results - last 24 hr 02/13/25 12:48: POC Glucose 124 H 02/13/25 17:32: POC Glucose 141 H 02/13/25 23:05: POC Glucose 121 H 02/14/25 05:05: WBC 10.8, RBC 3.50 L, Hgb 10.6 L, Hct 30.8 L, MCV 88.0, MCH 30.3, MCHC 34.4, RDW Std Deviation 42.6, RDW Coeff of Samir 13.3, Plt Count 147 L,MPV 10.4, Immature Gran % (Auto) 0.500, Neut % (Auto) 73.8 H, Lymph % (Auto) 11.2 L, [place] % (Auto) 12.1 H, Eos % (Auto) 1.8, Baso % (Auto) 0.6, Absolute Neuts (auto) 8.0 H, Absolute Lymphs (auto) 1.20, Nucleated RBC % 0, Sodium 139, Potassium 3.8, Chloride 102, Carbon Dioxide 19.2 L, Anion Gap 18 H, BUN 66 H, Creatinine 3.87 H, Estim Creat Clear Calc 17.03 L, Est GFR (MDRD) Non-Af 15 L, BUN/Creatinine Ratio 17.0, Glucose 133 H, Calcium 9.0, Magnesium 2.8 H, Total Bilirubin 0.49, AST 20, ALT 47, Alkaline Phosphatase 94, Total Protein 6.7, Albumin 3.8, Globulin 2.9, Albumin/Globulin Ratio 1.3, POC Glucose 126 H 02/14/25 09:07: POC Glucose 124 H Micro: Microbiology 02/12/25 19:55 Sputum, Induced/Lukens Gram Stain - Final 02/12/25 22:50 Nasal Secretion MRSA (PCR) - Final Rhythm Strip Rhythm Strip: Sinus Rhythm Rate: 78 Ectopy: None Imaging Radiology Impression Echocardiogram 02/12/25 22:09 Interpretation Summary The 3D full volume ejection fraction is 55-60 %. Severe calcific AV stenosis AV max pG 95 mmhg AV mean PG 64 mmhg unable tomeasure BARBARA No prior TTE tocompare Ordering Physician: Vandana Bro Referring Physician: [facility] Performed By: Gisell Guo RCS Assessment and Plan . Assessment and plan: HPI 74 Male with known CAD s/p CABG ?4, CKD, and hypertension was brought in by EMS for shortness of breath. At home was 80% on room air; placed on NRB by EMS. In ED, mental status fluctuated; initial BiPAP attempt aborted in favor of intubation for worsening respiratory status and decreased consciousness. reports recent heavy activity (golfing, carrying salt bags) and increased fatigue. Initial labs: WBC 11.7 ?10?/?L, platelets 181 ?10?/?L, VBG with PCO2 60 mmHg and lactate normal. BNP markedly elevated at 15,000 pg/mL. Viral panel negative. Hewas given a diagnosis of acute decompensated heart failure with pulmonary edema. Creatinine elevated at 3.0 mg/dL (baseline unknown). Low BP initially in ED, likely from sedatives for intubation; now stable (low ~96/50). No fluid restriction currently ordered; daily weights performed. Cardiology consulted; echocardiogram pending. Received Lasix 40 mg IV tonight; prior dosing BID. 02/14/25 Patient seen and examined. Chart and data reviewed. Condition d/w NOK at BS. He is sedated and restless. Increased agitation reported w/ SAT earlier today. Low grade fever - microbiology all (-) MV 8-10 LPM, PIP low 20s, modest O2 requirement I/O (-) w/ loop diuretics - creatinine elevated, stable TTE noted - LVH, dilated LA, severe EXAM GEN restless - not very cooperative VS as above HEENT KITTY NECK obese COR RRR CHEST coarse ABD soft EXT minimal edema SKIN w/d CHAN grossly NF ASSESSMENT 1. Acute respiratory failure requiring MV support 2. Cardiogenic pulmonary edema 3. LVH / severe / h/o CABG 4. Advanced CKD / NAGMA 5. DM / HTN / ASCVD 6. Former tobacco use 7. Delirium 8. Low grade fever RECOMMENDATION -MV support -add precedex and re-attempt SAT later today -loop diuretics -ASA -sq UFH -sq insulin -follow renal function -receiving empiric antimicrobials - CX NGTD -inhaled BD OK for now -would ask cardiology opinion re: severe Critical Care Time: 50 minutes The entirety of this encounter was done via Telemedicine 02/14/25 1051 <Electronically signed by Jan Yen MD> Cosigner Signature (if applicable): CC: ~ Signed [facility] Work Phone: [phone] Progress note [facility] Medical Records Department [address] [place] [address] Progress Note - Location And Measurement Technician 02/14/25 1029 MR#: [id number] Acct: [id number] Name: SOBEIDASAM Efren Rep #:[id number] : 1950 74 From: Jan Valencia PCP: [facility] Status:ADM IN Location: ICU ICU01-1 Objective Data Objective Data Vital Signs: Vital Signs Last response 3 Temperature 37.5 C H 02/14/25 10:00 Temperature Source Core 02/14/25 10:00 Pulse Rate 63 02/14/25 10:08 Pulse Strength Weak (1+) 02/13/25 09:04 Respiratory Rate 14 02/14/25 10:08 Respiratory Effort Mechanically Ventilated 02/14/25 03:47 Respiratory Depth Normal 02/14/25 03:47 Respiratory Pattern Normal 02/14/25 10:08 Blood Pressure 114/50 L 02/14/25 10:00 Blood Pressure Mean 71 02/14/25 10:00 Blood Pressure Source Monitor 02/14/25 10:00 Blood Pressure Position Semi-Fowlers 02/14/25 10:00 Blood Pressure Location Right Arm 02/14/25 10:00 Pulse Ox 98 02/14/25 10:06 Oxygen Delivery Method Mechanical Ventilator 02/14/25 10:00 Oxygen Flow Rate (L/min) 15 02/12/25 18:45 Fraction of Inspired Oxygen (FIO2) 02/14/25 10:06 I&O: I&O Last 24 Hours 3 02/13/25 02/13/25 02/14/25 11:59 23:59 11:59 Intake Total 267.81 / 594.45 304.74 / 594.45 307.72 / 307.72 Output Total 1250 / 3075 1825 / 3075 1200 / 1200 Balance -982.19 / -2480.55 -1520.26 / -2480.55 -892.28 / -892.28 I&O: Total Stay 3 02/12/25 18:44 thru 02/14/25 10:08 Intake Total 1066.52 Output Total 4275 Balance -3208.48 Current Meds Ordered / Administered: Current meds ordered / Administered 3 Generic Name Dose Route Start Last Admin Trade Name Freq PRN Reason Stop Dose Admin Acetaminophen 650 mg 02/12/25 22:09 Acetaminophen 650 Mg Suppository RC Q4H PRN PRN Fever, pain 1-10 Acetaminophen 650 mg 02/12/25 22:09 Acetaminophen 325 Mg Tablet PO Q4H PRN PRN Fever, pain 1-10/10 Al Hydroxide/Mg Hydroxide 30 ml 02/12/25 22:09 Mag Hydrox/Al Hydrox/Simeth 30 Ml Udc PO Q6H PRN PRN Gastric Burning Albuterol Sulfate 2.5 mg 02/12/25 22:09 Albuterol 2.5 Mg/3 Ml Vial.Neb. INHALATION Q2H PRN PRN Dyspnea, wheezing Albuterol/Ipratropium 3 ml 02/12/25 22:09 02/14/25 07:06 Ipratropium/Albuterol Sulfate 3 Ml Ampul.Neb INHALATION 3 ml Q4HWA.RT LORIN Administration Calamine/Phenol 1 applic 02/12/25 22:09 02/14/25 08:40 Menthol/Lanolin/Calamine/Znox 113 Gm Tube TOPICAL 1 applic 4X/DAY LORIN Administration Protocol Chlorhexidine Gluconate 15 ml 02/12/25 22:09 02/14/25 08:40 Chlorhexidine 15 Ml PO 15 ml BID LORIN Administration Chlorhexidine Gluconate 1 each 02/14/25 10:00 02/14/25 08:43 Chlorhexidine Gluc 2% Cloth 1 Each [place]elette TOPICAL 1 each DAILY LORIN Administration Furosemide 60 mg 02/13/25 14:00 02/14/25 08:38 Furosemide 100 Mg/10 Ml Vial IV 60 mg 4X/DAY LORIN Administration Guaifenesin 10 ml 02/12/25 22:09 Guaifenesin 10 Ml Udc (200mg/10ml) PO Q4H PRN PRN COUGH Heparin Sodium (Porcine) 5,000 unit 02/12/25 22:09 02/14/25 08:38 Heparin Injection (Vial) 5,000 Unit/Ml Vial SC 5,000 unit Q12 LORIN Administration Hydralazine HCl 10 mg 02/12/25 22:09 Hydralazine 20 Mg/Ml Vial IV Q4H PRN PRN SBP > 160 Protocol Pantoprazole Sodium 40 mg/ 100 mls @ 330 mls/hr 02/12/25 22:09 02/14/25 10:01 Sodium Chloride IV Infused Q12 LORIN Infusion Fentanyl 100 mls @ 5 mls/hr 02/12/25 22:09 02/14/25 08:33 CONT INF 100 mcg/hr UD LORIN 10 mls/hr Administration Protocol 50 MCG/HR Sodium Chloride 250 mls @ 15 mls/hr 02/12/25 22:13 IV .[id number] PRN Saline Flush Sodium Chloride 250 mls @ 15 mls/hr 02/12/25 22:13 IV .[id number] PRN Additional IVPB Infusion Propofol 1,000 mg in 100 mls @ 4.746 mls/hr 02/12/25 22:30 02/14/25 08:31 Diprivan CONT INF 25 mcg/kg/min .Q12H LORIN 11.9 mls/hr Administration Protocol 10 MCG/KG/MIN Piperacillin Sod/Tazobactam 50 mls @ 12.5 mls/hr 02/14/25 08:30 02/14/25 10:10 Sod 3.375 gm/ Sodium Chloride IV 12.5 mls/hr Q12 LORIN Administration Vancomycin IV-PHARMACY TO DOSE 500 mls @ 250 mls/hr 02/14/25 07:43 1 each/ Sodium Chloride IV X1 PRN Rx to Dose Protocol Vancomycin HCl 2,000 mg/ 540 mls @ 250 mls/hr 02/14/25 09:00 02/14/25 09:33 Sodium Chloride IV 02/14/25 11:09 250 mls/hr X1 ONE Administration Insulin Human Lispro 0 unit 02/13/25 06:00 02/14/25 05:19 Insulin Lispro 100 Unit/Ml Insuln.Pen SC Not Given Q6 [facility] Protocol Melatonin 3 mg 02/12/25 22:09 Melatonin 3 Mg Tablet PO QHS PRN PRN INSOMNIA Midodrine 10 mg 02/12/25 22:09 02/14/25 08:39 Midodrine Hcl 5 Mg Tablet PO 10 mg TIDCM LORIN Administration Nitroglycerin 0.4 mg 02/12/25 22:09 Nitroglycerin (Inpatient Use) 0.4 Mg Tab.Subl SL Q5M PRN CARDIAC/CHEST PAIN Ondansetron HCl 4 mg 02/12/25 22:09 Ondansetron 4 Mg/2 Ml Vial IV Q8H PRN PRN NAUSEA/VOMITING Senna/Docusate Sodium 2 tablet 02/12/25 22:09 Senna/Docusate Sodium 1 Tablet PO BID PRN PRN Constipation Sodium Chloride 5 ml 02/12/25 22:09 Sodium Cl For Inhalation 15 Ml Vial.Neb. INHALATION Q5M PRN Suctioning Sodium Chloride 10 - 40 ml 02/12/25 22:13 02/14/25 08:38 0.9% Saline Lock 10 Ml Syringe IV 30 ml UD PRN Administration SALINE FLUSH Vancomycin Protocol 1 lab 02/15/25 05:00 Vancomycin Trough/Random Due [facility] 02/15/25 07:00 DAILY [facility] Lab / Micro Data 02/14/25 05:05 02/14/25 05:05 Labs: Laboratory Results - last 24 hr 02/13/25 12:48: POC Glucose 124 H 02/13/25 17:32: POC Glucose 141 H 02/13/25 23:05: POC Glucose 121 H 02/14/25 05:05: WBC 10.8, RBC 3.50 L, Hgb 10.6 L, Hct 30.8 L, MCV 88.0, MCH 30.3, MCHC 34.4, RDW Std Deviation 42.6, RDW Coeff of Samir 13.3, Plt Count 147 L,MPV 10.4, Immature Gran % (Auto) 0.500, Neut % (Auto) 73.8 H, Lymph % (Auto) 11.2 L, [place] % (Auto) 12.1 H, Eos % (Auto) 1.8, Baso % (Auto) 0.6,Absolute Neuts (auto) 8.0 H, Absolute Lymphs (auto) 1.20, Nucleated RBC % 0, Sodium 139, Potassium 3.8, Chloride 102, Carbon Dioxide 19.2 L, Anion Gap 18 H, BUN 66 H, Creatinine 3.87 H, Estim Creat Clear Calc 17.03 L, Est GFR (MDRD) Non-Af 15 L, BUN/Creatinine Ratio 17.0, Glucose 133 H, Calcium 9.0, Magnesium 2.8 H, Total Bilirubin 0.49, AST 20, ALT 47, Alkaline Phosphatase 94, Total Protein 6.7, Albumin 3.8, Globulin 2.9, Albumin/Globulin Ratio 1.3, POC Glucose 126 H 02/14/25 09:07: POC Glucose 124 H Micro: Microbiology 02/12/25 19:55 Sputum, Induced/Lukens Gram Stain - Final 02/12/25 22:50 Nasal Secretion MRSA (PCR) - Final Rhythm Strip Rhythm Strip: Sinus Rhythm Rate: 78 Ectopy: None Imaging Radiology Impression Echocardiogram 02/12/25 22:09 Interpretation Summary The 3D full volume ejection fraction is 55-60 %. Severe calcific AV stenosis AV max pG 95 mmhg AV mean PG 64 mmhg unable tomeasure BARBARA No prior TTE tocompare Ordering Physician: Vandana Bro Referring Physician: [facility] Performed By: Gisell Guo RCS Assessment and Plan . Assessment and plan: HPI 74 Male with known CAD s/p CABG ?4, CKD, and hypertension was brought in by EMS for shortness of breath. At home was 80% on room air; placed on NRB by EMS. In ED, mental status fluctuated; initial BiPAP attempt aborted in favor of intubation for worsening respiratory status and decreased consciousness. reports recent heavy activity (golfing, carrying salt bags) and increased fatigue. Initial labs: WBC 11.7 ?10?/?L, platelets 181 ?10?/?L, VBG with PCO2 60 mmHg and lactate normal. BNP markedly elevated at 15,000 pg/mL. Viral panel negative. Hewas given a diagnosis of acute decompensated heart failure with pulmonary edema. Creatinine elevated at 3.0 mg/dL (baseline unknown). Low BP initially in ED, likely from sedatives for intubation; now stable (low ~96/50). No fluid restriction currently ordered; daily weights performed. Cardiology consulted; echocardiogram pending. Received Lasix 40 mg IV tonight; prior dosing BID. 02/14/25 Patient seen and examined. Chart and data reviewed. Condition d/w NOK at BS. He is sedated and restless. Increased agitation reported w/ SAT earlier today. Low grade fever - microbiology all (-) MV 8-10 LPM, PIP low 20s, modest O2 requirement I/O (-) w/ loop diuretics - creatinine elevated, stable TTE noted - LVH, dilated LA, severe EXAM GEN restless - not very cooperative VS as above HEENT KITTY NECK obese COR RRR CHEST coarse ABD soft EXT minimal edema SKIN w/d CHAN grossly NF ASSESSMENT 1. Acute respiratory failure requiring MV support 2. Cardiogenic pulmonary edema 3. LVH / severe / h/o CABG 4. Advanced CKD / NAGMA 5. DM / HTN / ASCVD 6. Former tobacco use 7. Delirium 8. Low grade fever RECOMMENDATION -MV support -add precedex and re-attempt SAT later today -loop diuretics -ASA -sq UFH -sq insulin -follow renal function -receiving empiric antimicrobials - CX NGTD -inhaled BD OK for now -would ask cardiology opinion re: severe Critical Care Time: 50 minutes The entirety of this encounter was done via Telemedicine 02/14/25 1055 Cosigner Signature (if applicable): CC: ~ Signed [facility]08-09-2025 Progress note Author Lana Menjivar [facility] Note Date/Time February 13, 2025 4:2 3pm [facility] Medical Records Department [address] [place] [address] Progress Note 02/13/25 1421 MR#: [id number] Acct: [id number] Name: SAM VIDALES Rep #:[id number] : 1950 74 From: Lana Menjivar MD PCP: [facility] Status:ADM IN Location: ICU ICU01-1 Subjective Subjective Patient stated excepted. His was by his bedside. He was admitted with a complaint of acute shortness of breath and he managed for acute hypoxic respiratory failure thought to be due to heart failure. He is currently intubated. Objective Data Objective Data Vital Signs: Vital Signs Temp Pulse Resp BP Pulse Ox O2 Del Method O2 Flow Rate 100.0 F H 71 19 H 115/55 L 98 Mechanical Ventilator 15 02/13/25 13:00 02/13/25 13:05 02/13/25 13:05 02/13/25 13:00 02/13/25 13:05 02/13/25 13:00 02/12/25 18:45 FiO2 30 02/13/25 13:05 Oxygen Flow Rate (L/min) 15 Oxygen Delivery Method Mechanical Ventilator Weight: 173 lb 15.115 oz Body Mass Index (BMI) 24.9 Intake & Output: Intake and Output for Last 24 Hours 02/11/25 02/12/25 02/13/25 23:59 23:59 23:59 Intake Total 186.25 / 195.95 278.28 / 278.28 Output Total 1250 / 1250 Balance 186.25 / 195.95 -971.72 / -971.72 Lab / Micro Data 02/13/25 05:25 02/13/25 05:25 Labs: Laboratory Results - last 24 hr 02/12/25 18:30: WBC 11.7 H, RBC 4.08 L, Hgb 12.2 L, Hct 37.2 L, MCV 91.2, MCH 29.9, MCHC 32.8, RDW Std Deviation 43.5, RDW Coeff of Samir 13.2, Plt Count 181, MPV 10.5, Immature Gran % (Auto) 0.600, Neut % (Auto) 70.0, Lymph % (Auto) 14.9 L, [place] % (Auto) 11.4 H, Eos % (Auto) 2.5, Baso % (Auto) 0.6, Absolute Neuts (auto) 8.2 H, Absolute Lymphs (auto) 1.75, Nucleated RBC % 0, PT 14.2, INR 1.1, APTT 30.4, Sodium 138, Potassium 4.6, Chloride 104, Carbon Dioxide 18.1 L, AnionGap 16 H, BUN 56 H, Creatinine 3.36 H, Estim Creat Clear Calc 19.61 L, Est GFR (MDRD) Non-Af 18 L, BUN/Creatinine Ratio 16.6, Glucose 224 H, Calcium 9.1, Magnesium 2.9 H, Total Bilirubin 0.55, AST 71 H, ALT 80 H, Alkaline Phosphatase 126, Troponin T High Sens 146 H*, [place] [address] H, Total Protein 7.8, Albumin 4.5, Globulin 3.3, Albumin/Globulin Ratio 1.4 02/12/25 19:00: Lactic Acid 1.2 02/12/25 19:37: Urine Color Straw, Urine Clarity Sl. Cloudy, Urine pH 5.0, Ur Specific [place] 1.015, Urine Protein 100 H, Urine Glucose (UA) 1000 H, Urine Ketones Negative, Urine Occult Blood 25 H, Urine Nitrite Negative, Urine Bilirubin Negative, Urine Urobilinogen Normal, Ur Leukocyte Esterase Negative, Urine RBC 0-5 SEEN, Urine WBC 0-5 SEEN, Ur Squamous Epith Cells 0-5 SEEN, Urine Bacteria 1+, Urine Mucus 0 SEEN 02/12/25 20:45: Troponin T Hi Sens 2 Hr 156 H* 02/12/25 22:50: Total Creatine Kinase Cancelled, Troponin T Hi Sens 4Hr 167 H*, Triglycerides 81 02/12/25 23:01: POC Glucose 161 H 02/13/25 05:23: POC Glucose 115 H 02/13/25 05:25: WBC 7.2, RBC 3.18 L, Hgb 9.6 L, Hct 28.6 L, MCV 89.9, MCH 30.2, MCHC 33.6, RDW Std Deviation 43.8, RDW Coeff of Samir 13.2, Plt Count 145 L, MPV 10.3, Immature Gran % (Auto) 0.600, Neut % (Auto) 72.4 H, Lymph % (Auto) 12.8 L,[place] % (Auto) 13.0 H, Eos % (Auto) 0.6, Baso % (Auto) 0.6, Absolute Neuts (auto)5.3, Absolute Lymphs (auto) 0.93, Nucleated RBC % 0, Sodium 138, Potassium 4.3, Chloride 108, Carbon Dioxide 18.9 L, Anion Gap 12, BUN 58 H, Creatinine 3.39 H, Estim Creat Clear Calc 19.44 L, Est GFR (MDRD) Non-Af 18 L, BUN/Creatinine Ratio17.1, Glucose 125 H, Calcium 8.3, Total Bilirubin 0.39, AST 49 H, ALT 64 H, Alkaline Phosphatase 91, Total Creatine Kinase 189, Total Protein 5.9, Albumin 3.5, Globulin 2.4, Albumin/Globulin Ratio 1.5, Triglycerides 219 H, Cholesterol 84, LDL Cholesterol, Calc 4, VLDL Cholesterol 44 H, HDL Cholesterol 36 L, Cholesterol/HDL Ratio 2.32, TSH 1.220 02/13/25 07:47: POC Glucose 110 H Micro: Microbiology 02/12/25 22:50 Nasal Secretion MRSA (PCR) - Final 02/12/25 21:10 Mucosa - Nasopharyngeal Respiratory Panel (PCR) - Final 02/12/25 19:17 Mucosa - Nose SARS-CoV-2, Influenza & RSV (PCR) - Final ABG Data ABG results: ABG 02/12/25 02/12/25 02/12/25 19:28 19:37 23:27 Specimen Type ART Cancelled ART Sample Site R Radial Cancelled R Radial pH 7.17 L* Cancelled 7.33 L Bicarbonate Actual 20.5 L Cancelled 20.9 L Total CO2 22 Cancelled 22 Base Excess -8 L Cancelled -5 L O2 Saturation 100 H Cancelled 95 O2 % 100.0 Cancelled 40.0 ABG pCO2 56.8 H Cancelled 39.3 ABG pO2 217 H Cancelled 82 Lu Test N/A Cancelled Positive Respiration Rate 14 Cancelled 14 O2 Delivery Device Adult Vent Cancelled ET Tube Liter Flow Cancelled Minute Volume Cancelled Vent Mode AC Cancelled AC Inspiratory Time Cancelled Expiratory Time Cancelled Tidal Volume 450.0 Cancelled 450.0 Mean Airway Pressure Cancelled POC PEEP 5 Cancelled 5 Peak Inspir Pressure Cancelled POC Pressure Suppt Cancelled Pressure Control Cancelled Pressure High Cancelled Pressure Low Cancelled Time High Cancelled Time Low Cancelled EPAP Cancelled IPAP Cancelled Blood Gas Comments Cancelled Crit Call To/Read Back Yes Cancelled Blood Gas Notified Whom Dr Hendrickson Cancelled Blood Gas Notified Time 19:30:20 Cancelled Clinical Comments Cancelled Radiography Diagnostic Testing: Radiology Impression Chest X-Ray 02/12/25 19:01 IMPRESSION: Mild pulmonary vascular congestion. No definite focal consolidation. Reading Location: [facility] Echocardiogram 02/12/25 22:09 Interpretation Summary The 3D full volume ejection fraction is 55-60 %. Severe calcific AV stenosis AV max pG 95 mmhg AV mean PG 64 mmhg unable tomeasure BARBARA No prior TTE tocompare Ordering Physician: Vandana Bro Referring Physician: [facility] Performed By: Gisell Guo RCS Chest X-Ray 02/13/25 04:10 IMPRESSION: Clearing pulmonary edema pattern. Reading Location: [place] [address] Rhythm Strip Rhythm Strip: Sinus Rhythm Rate: 78 Ectopy: None Physical Exam Const Constitutional Narrative: intubated, sedated. RASS score is -4. HEENT normocephalic Mouth: dry mucous membranes Eyes EOMs intact bilaterally Neck no lymphadenopathy Lymph Lymphatic: no lymphedema noted Resp Resp Narrative: intubated and sedated. Moderately diminished breath sounds bibasilarly. No wheezes or crackles. FiO2 of 35% with PEEP of 5 Cardio regular rate, regular rhythm, S1 normal heart sound and S2 normal heart sound GI normal to inspection, nondistended, normoactive bowel sounds, soft to palpation and non-tender Extremity normal capillary refill and no clubbing, cyanosis or edema General Extremity: no tenderness to palpation of joints or extremities Skin General Skin Exam: no breakdown Neuro Neuro Narrative: intubated, sedated. RASS score is -4. Assessment & Plan Assessment/Plan (1) Congestive heart failure: (2) Respiratory failure: PLAN: Plan #Acute hypoxic and hypercapnic respiratory failure due to acute decompensated heart failure * patient remains intubated and sedated. On minimal vent settings with FiO2 of 35% and PEEP of 5 * Critical care on board. * 2D echo ordered. Respiratory panel negative. * Titrate oxygen to maintain saturation above 90%. * breathing treatment with bronchodilators. * being diuresed with IV lasix 60 mg 4 times daily as per critical care * proBNP was elevated at 15,846. #Elelvated troponins * Initial troponin was 146 and peaked at 167. * said he did not have any chest pain. 2D echo ordered today showed EF of 55 to 60% with no regional wall motion abnormalities. #Elevated creatinine with elevated anion gap * Creatinine is 3.39 today. Was 3.36 on admission. No baseline creatinine known so it is unclear if this is JUAN or CKD. Will order renal ultrasound. If it does not trend downwards we will consult nephrology. * Bicarb was 18.1 on admission and is now 18.9. Anion gap was 16 and is down to 12. #History of CAD s/p CABG, on aspirin and ezetimibe. Beta-blockers held due to hypotension. #Hypertension: BP meds currently on hold #Type 2 diabetes mellitus: Oral meds on hold. Insulin sliding scale. Accu-Cheks ACHS. DVT prophylaxis: On heparin Charges/Coding Visit Charges Inpatient E&M: 58223 Subs Hosp L2 02/13/25 1623 <Electronically signed by Lana Menjivar MD> Lana Menjivar MD Cosigner Signature (if applicable): CC: ~ Signed [facility] Work Phone: [phone]) 476-309808-09-2025 Progress note [facility] Medical Records Department [address] [place] [address] Progress Note 02/13/25 1421 MR#: [id number] Acct: [id number] Name: SAM VIDALES Efren Rep #:[id number] : 1950 74 From: Lana Menjivar MD PCP: [facility] Status:ADM IN Location: ICU ICU01-1 Subjective Subjective Patient stated excepted. His was by his bedside. He was admitted with a complaint of acute shortness of breath and he managed for acute hypoxic respiratory failure thought to be due to heart failure. He is currently intubated. Objective Data Objective Data Vital Signs: Vital Signs Temp Pulse Resp BP Pulse Ox O2 Del Method O2 Flow Rate 100.0 F H 71 19 H 115/55 L 98 Mechanical Ventilator 15 02/13/25 13:00 02/13/25 13:05 02/13/25 13:05 02/13/25 13:00 02/13/25 13:05 02/13/25 13:00 02/12/25 18:45 FiO2 30 02/13/25 13:05 Oxygen Flow Rate (L/min) 15 Oxygen Delivery Method Mechanical Ventilator Weight: 173 lb 15.115 oz Body Mass Index (BMI) 24.9 Intake & Output: Intake and Output for Last 24 Hours 02/11/25 02/12/25 02/13/25 23:59 23:59 23:59 Intake Total 186.25 / 195.95 278.28 / 278.28 Output Total 1250 / 1250 Balance 186.25 / 195.95 -971.72 / -971.72 Lab / Micro Data 02/13/25 05:25 02/13/25 05:25 Labs: Laboratory Results - last 24 hr 02/12/25 18:30: WBC 11.7 H, RBC 4.08 L, Hgb 12.2 L, Hct 37.2 L, MCV 91.2, MCH 29.9, MCHC 32.8, RDW Std Deviation 43.5, RDW Coeff of Samir 13.2, Plt Count 181, MPV 10.5, Immature Gran % (Auto) 0.600, Neut % (Auto) 70.0, Lymph % (Auto) 14.9 L, [place] % (Auto) 11.4 H, Eos % (Auto) 2.5, Baso % (Auto) 0.6, Absolute Neuts (auto) 8.2 H, Absolute Lymphs (auto) 1.75, Nucleated RBC % 0, PT 14.2, INR 1.1, APTT 30.4, Sodium 138, Potassium 4.6, Chloride 104, Carbon Dioxide 18.1 L, AnionGap 16 H, BUN 56 H, Creatinine 3.36 H, Estim Creat Clear Calc 19.61 L, Est GFR (MDRD) Non-Af 18 L, BUN/Creatinine Ratio 16.6,Glucose 224 H, Calcium 9.1, Magnesium 2.9 H, Total Bilirubin 0.55, AST 71 H, ALT 80 H, Alkaline Phosphatase 126, Troponin T High Sens 146 H*, [place] [address] H, Total Protein 7.8, Albumin 4.5, Globulin 3.3, Albumin/Globulin Ratio 1.4 02/12/25 19:00: Lactic Acid 1.2 02/12/25 19:37: Urine Color Straw, Urine Clarity Sl. Cloudy, Urine pH 5.0, Ur Specific [place] 1.015, Urine Protein 100 H, Urine Glucose (UA) 1000 H, Urine Ketones Negative, Urine Occult Blood 25 H, Urine Nitrite Negative, Urine Bilirubin Negative, Urine Urobilinogen Normal, Ur Leukocyte Esterase Negative, Urine RBC 0-5 SEEN, Urine WBC 0-5 SEEN, Ur Squamous Epith Cells 0-5 SEEN, Urine Bacteria 1+, Urine Mucus 0 SEEN 02/12/25 20:45: Troponin T Hi Sens 2 Hr 156 H* 02/12/25 22:50: Total Creatine Kinase Cancelled, Troponin T Hi Sens 4Hr 167 H*, Triglycerides 81 02/12/25 23:01: POC Glucose 161 H 02/13/25 05:23: POC Glucose 115 H 02/13/25 05:25: WBC 7.2, RBC 3.18 L, Hgb 9.6 L, Hct 28.6 L, MCV 89.9, MCH 30.2, MCHC 33.6, RDW Std Deviation 43.8, RDW Coeff of Samir 13.2, Plt Count 145 L, MPV 10.3, Immature Gran % (Auto) 0.600, Neut% (Auto) 72.4 H, Lymph % (Auto) 12.8 L,[place] % (Auto) 13.0 H, Eos % (Auto) 0.6, Baso % (Auto) 0.6, Absolute Neuts (auto)5.3, Absolute Lymphs (auto) 0.93, Nucleated RBC % 0, Sodium 138, Potassium 4.3, Chloride 108, Carbon Dioxide 18.9 L, Anion Gap 12, BUN 58 H, Creatinine 3.39 H, Estim Creat Clear Calc 19.44 L, Est GFR (MDRD) Non-Af 18 L, BUN/Creatinine Ratio17.1, Glucose 125 H, Calcium 8.3, Total Bilirubin 0.39, AST 49 H, ALT 64 H, Alkaline Phosphatase 91, Total Creatine Kinase 189, Total Protein 5.9, Albumin 3.5, Globulin 2.4, Albumin/Globulin Ratio 1.5, Triglycerides 219 H, Cholesterol 84, LDL Cholesterol, Calc 4, VLDL Cholesterol 44 H, HDL Cholesterol 36 L, Cholesterol/HDL Ratio 2.32, TSH1.220 02/13/25 07:47: POC Glucose 110 H Micro: Microbiology 02/12/25 22:50 Nasal Secretion MRSA (PCR) - Final 02/12/25 21:10 Mucosa - Nasopharyngeal Respiratory Panel (PCR) - Final 02/12/25 19:17 Mucosa - Nose SARS-CoV-2, Influenza & RSV (PCR) - Final ABG Data ABG results: ABG 02/12/25 02/12/25 02/12/25 19:28 19:37 23:27 Specimen Type ART Cancelled ART Sample Site R Radial Cancelled R Radial pH 7.17 L* Cancelled 7.33 L Bicarbonate Actual 20.5 L Cancelled 20.9 L Total CO2 22 Cancelled 22 Base Excess -8 L Cancelled -5 L O2 Saturation 100 H Cancelled 95 O2 % 100.0 Cancelled 40.0 ABG pCO2 56.8 H Cancelled 39.3 ABG pO2 217 H Cancelled 82 Lu Test N/A Cancelled Positive Respiration Rate 14 Cancelled 14 O2 Delivery Device Adult Vent Cancelled ET Tube Liter Flow Cancelled Minute Volume Cancelled Vent Mode AC Cancelled AC Inspiratory Time Cancelled Expiratory Time Cancelled Tidal Volume 450.0 Cancelled 450.0 Mean Airway Pressure Cancelled POC PEEP 5 Cancelled 5 Peak Inspir Pressure Cancelled POC Pressure Suppt Cancelled Pressure Control Cancelled Pressure High Cancelled Pressure Low Cancelled Time High Cancelled Time Low Cancelled EPAP Cancelled IPAP Cancelled Blood Gas Comments Cancelled Crit Call To/Read Back Yes Cancelled Blood Gas Notified Whom Dr Hendrickson Cancelled Blood Gas Notified Time 19:30:20 Cancelled Clinical Comments Cancelled Radiography Diagnostic Testing: Radiology Impression Chest X-Ray 02/12/25 19:01 IMPRESSION: Mild pulmonary vascular congestion. No definite focal consolidation. Reading Location: [facility] Echocardiogram 02/12/25 22:09 Interpretation Summary The 3D full volume ejection fraction is 55-60 %. Severe calcific AV stenosis AV max pG 95 mmhg AV mean PG 64 mmhg unable tomeasure BARBARA No prior TTE tocompare Ordering Physician: Vandana Bro Referring Physician: [facility] Performed By: Gisell Guo RCS Chest X-Ray 02/13/25 04:10 IMPRESSION: Clearing pulmonary edema pattern. Reading Location: [place] [address] Rhythm Strip Rhythm Strip: Sinus Rhythm Rate: 78 Ectopy: None Physical Exam Const Constitutional Narrative: intubated, sedated. RASS score is -4. HEENT normocephalic Mouth: dry mucous membranes Eyes EOMs intact bilaterally Neck no lymphadenopathy Lymph Lymphatic: no lymphedema noted Resp Resp Narrative: intubated and sedated. Moderately diminished breath sounds bibasilarly. No wheezes or crackles. FiO2 of 35% with PEEP of 5 Cardio regular rate, regular rhythm, S1 normal heart sound and S2 normal heart sound GI normal to inspection, nondistended, normoactive bowel sounds, soft to palpation and non-tender Extremity normal capillary refill and no clubbing, cyanosis or edema General Extremity: no tenderness to palpation of joints or extremities Skin General Skin Exam: no breakdown Neuro Neuro Narrative: intubated, sedated. RASS score is -4. Assessment & Plan Assessment/Plan (1) Congestive heart failure: (2) Respiratory failure: PLAN: Plan #Acute hypoxic and hypercapnic respiratory failure due to acute decompensated heart failure * patient remains intubated and sedated. On minimal vent settings with FiO2 of 35% and PEEP of 5 * Critical care on board. * 2D echo ordered. Respiratory panel negative. * Titrate oxygen to maintain saturation above 90%. * breathing treatment with bronchodilators. * being diuresed with IV lasix 60 mg 4 times daily as per critical care * proBNP was elevated at 15,846. #Elelvated troponins * Initial troponin was 146 and peaked at 167. * said he did not have any chest pain. 2D echo ordered today showed EF of 55 to 60% with no regional wall motion abnormalities. #Elevated creatinine with elevated anion gap * Creatinine is 3.39 today. Was 3.36 on admission. No baseline creatinine known so it is unclear ifthis is JUAN or CKD. Will order renal ultrasound. If it does not trend downwards we will consult nephrology. * Bicarb was 18.1 on admission and is now 18.9. Anion gap was 16 and is down to 12. #History of CAD s/p CABG, on aspirin and ezetimibe. Beta-blockers held due to hypotension. #Hypertension: BP meds currently on hold #Type 2 diabetes mellitus: Oral meds on hold. Insulin sliding scale. Accu-Cheks ACHS. DVT prophylaxis: On heparin Charges/Coding Visit Charges Inpatient E&M: 16173 Subs Hosp L2 02/13/25 1623 Lana Menjivar MD Cosigner Signature (if applicable): CC: ~ Signed [facility]08-09-2025 Progress note Author Jan Farshad [facility] Note Date/Time February 13, 2025 1:2 5pm [facility] Medical Records Department [address] [place] [address] Progress Note - Location And Measurement Technician 02/13/25 1324 MR#: [id number] Acct: [id number] Name: SAM VIDALES Rep #:[id number] : 1950 74 From: Jan Valencia PCP: [facility] Status:ADM IN Location: ICU ICU01-1 Objective Data Objective Data Vital Signs: Vital Signs Last response 3 Temperature 37.7 C H 02/13/25 12:00 Temperature Source Core 02/13/25 12:00 Pulse Rate 71 02/13/25 13:05 Pulse Strength Weak (1+) 02/13/25 09:04 Respiratory Rate 19 H 02/13/25 13:05 Respiratory Effort Mechanically Ventilated 02/13/25 08:00 Respiratory Depth Normal 02/13/25 08:00 Respiratory Pattern Normal 02/13/25 13:05 Blood Pressure 104/44 L 02/13/25 12:00 Blood Pressure Mean 64 02/13/25 12:00 Blood Pressure Source Monitor 02/13/25 12:00 Blood Pressure Position Semi-Fowlers 02/13/25 12:00 Blood Pressure Location Right Arm 02/13/25 12:00 Pulse Ox 98 02/13/25 13:05 Oxygen Delivery Method Mechanical Ventilator 02/13/25 12:00 Oxygen Flow Rate (L/min) 15 02/12/25 18:45 Fraction of Inspired Oxygen (FIO2) 30 02/13/25 13:05 I&O: I&O Last 24 Hours 3 02/12/25 02/13/25 02/13/25 23:59 11:59 23:59 Intake Total 186.25 / 195.95 260.31 / 272.74 12.43 / 272.74 Output Total 1250 / 1250 Balance 186.25 / 195.95 -989.69 / -977.26 12.43 / -977.26 I&O: Total Stay 3 02/12/25 18:44 thru 02/13/25 12:55 Intake Total 458.99 Output Total 1250 Balance -791.01 Current Meds Ordered / Administered: Current meds ordered / Administered 3 Generic Name Dose Route Start Last Admin Trade Name Freq PRN Reason Stop Dose Admin Acetaminophen 650 mg 02/12/25 22:09 Acetaminophen 650 Mg Suppository RC Q4H PRN PRN Fever, pain 1-10 Acetaminophen 650 mg 02/12/25 22:09 Acetaminophen 325 Mg Tablet PO Q4H PRN PRN Fever, pain 1-10/10 Al Hydroxide/Mg Hydroxide 30 ml 02/12/25 22:09 Mag Hydrox/Al Hydrox/Simeth 30 Ml Udc PO Q6H PRN PRN Gastric Burning Albuterol Sulfate 2.5 mg 02/12/25 22:09 Albuterol 2.5 Mg/3 Ml Vial.Neb. INHALATION Q2H PRN PRN Dyspnea, wheezing Albuterol/Ipratropium 3 ml 02/12/25 22:09 02/13/25 10:52 Ipratropium/Albuterol Sulfate 3 Ml Ampul.Neb INHALATION 3 ml Q4HWA.RT LORIN Administration Calamine/Phenol 1 applic 02/12/25 22:09 02/13/25 07:48 Menthol/Lanolin/Calamine/Znox 113 Gm Tube TOPICAL 1 applic 4X/DAY LORIN Administration Protocol Chlorhexidine Gluconate 15 ml 02/12/25 22:09 02/13/25 07:48 Chlorhexidine 15 Ml PO 15 ml BID LORIN Administration Furosemide 60 mg 02/13/25 14:00 Furosemide 40 Mg/4 Ml Vial IV 4X/DAY LORIN Guaifenesin 10 ml 02/12/25 22:09 Guaifenesin 10 Ml Udc (200mg/10ml) PO Q4H PRN PRN COUGH Heparin Sodium (Porcine) 5,000 unit 02/12/25 22:09 02/13/25 07:49 Heparin Injection (Vial) 5,000 Unit/Ml Vial SC 5,000 unit Q12 LORIN Administration Hydralazine HCl 10 mg 02/12/25 22:09 Hydralazine 20 Mg/Ml Vial IV Q4H PRN PRN SBP > 160 Protocol Pantoprazole Sodium 40 mg/ 100 mls @ 330 mls/hr 02/12/25 22:09 02/13/25 09:37 Sodium Chloride IV Infused Q12 LORIN Infusion Fentanyl 100 mls @ 5 mls/hr 02/12/25 22:09 02/13/25 10:30 CONT INF 75 mcg/hr UD LORIN 7.5 mls/hr Titration Protocol 50 MCG/HR Sodium Chloride 250 mls @ 15 mls/hr 02/12/25 22:13 IV .[id number] PRN Saline Flush Sodium Chloride 250 mls @ 15 mls/hr 02/12/25 22:13 IV .[id number] PRN Additional IVPB Infusion Propofol 1,000 mg in 100 mls @ 4.746 mls/hr 02/12/25 22:30 02/13/25 12:55 Diprivan CONT INF 20 mcg/kg/min .Q12H LORIN 9.5 mls/hr Titration Protocol 10 MCG/KG/MIN Insulin Human Lispro 0 unit 02/13/25 06:00 02/13/25 12:51 Insulin Lispro 100 Unit/Ml Insuln.Pen SC Not Given Q6 LORIN Protocol Melatonin 3 mg 02/12/25 22:09 Melatonin 3 Mg Tablet PO QHS PRN PRN INSOMNIA Midodrine 10 mg 02/12/25 22:09 02/13/25 12:56 Midodrine Hcl 5 Mg Tablet PO 10 mg TIDCM LORIN Administration Nitroglycerin 0.4 mg 02/12/25 22:09 Nitroglycerin (Inpatient Use) 0.4 Mg Tab.Subl SL Q5M PRN CARDIAC/CHEST PAIN Ondansetron HCl 4 mg 02/12/25 22:09 Ondansetron 4 Mg/2 Ml Vial IV Q8H PRN PRN NAUSEA/VOMITING Senna/Docusate Sodium 2 tablet 02/12/25 22:09 Senna/Docusate Sodium 1 Tablet PO BID PRN PRN Constipation Sodium Chloride 5 ml 02/12/25 22:09 Sodium Cl For Inhalation 15 Ml Vial.Neb. INHALATION Q5M PRN Suctioning Sodium Chloride 10 - 40 ml 02/12/25 22:13 02/13/25 08:02 0.9% Saline Lock 10 Ml Syringe IV 10 ml UD PRN Administration SALINE FLUSH Lab / Micro Data 02/13/25 05:25 02/13/25 05:25 Labs: Laboratory Results - last 24 hr 02/12/25 18:30: WBC 11.7 H, RBC 4.08 L, Hgb 12.2 L, Hct 37.2 L, MCV 91.2, MCH 29.9, MCHC 32.8, RDW Std Deviation 43.5, RDW Coeff of Samir 13.2, Plt Count 181, MPV 10.5, Immature Gran % (Auto) 0.600, Neut % (Auto) 70.0, Lymph % (Auto) 14.9 L, [place] % (Auto) 11.4 H, Eos % (Auto) 2.5, Baso % (Auto) 0.6, Absolute Neuts (auto) 8.2 H, Absolute Lymphs (auto) 1.75, Nucleated RBC % 0, PT 14.2, INR 1.1, APTT 30.4, Sodium 138, Potassium 4.6, Chloride 104, Carbon Dioxide 18.1 L, AnionGap 16 H, BUN 56 H, Creatinine 3.36 H, Estim Creat Clear Calc 19.61 L, Est GFR (MDRD) Non-Af 18 L, BUN/Creatinine Ratio 16.6, Glucose 224 H, Calcium 9.1, Magnesium 2.9 H, Total Bilirubin 0.55, AST 71 H, ALT 80 H, Alkaline Phosphatase 126, Troponin T High Sens 146 H*, [place] [address] H, Total Protein 7.8, Albumin 4.5, Globulin 3.3, Albumin/Globulin Ratio 1.4 02/12/25 19:00: Lactic Acid 1.2 02/12/25 19:37: Urine Color Straw, Urine Clarity Sl. Cloudy, Urine pH 5.0, Ur Specific [place] 1.015, Urine Protein 100 H, Urine Glucose (UA) 1000 H, Urine Ketones Negative, Urine Occult Blood 25 H, Urine Nitrite Negative, Urine Bilirubin Negative, Urine Urobilinogen Normal, Ur Leukocyte Esterase Negative, Urine RBC 0-5 SEEN, Urine WBC 0-5 SEEN, Ur Squamous Epith Cells 0-5 SEEN, Urine Bacteria 1+, Urine Mucus 0 SEEN 02/12/25 20:45: Troponin T Hi Sens 2 Hr 156 H* 02/12/25 22:50: Total Creatine Kinase Cancelled, Troponin T Hi Sens 4Hr 167 H*, Triglycerides 81 02/12/25 23:01: POC Glucose 161 H 02/13/25 05:23: POC Glucose 115 H 02/13/25 05:25: WBC 7.2, RBC 3.18 L, Hgb 9.6 L, Hct 28.6 L, MCV 89.9, MCH 30.2, MCHC 33.6, RDW Std Deviation 43.8, RDW Coeff of Samir 13.2, Plt Count 145 L, MPV 10.3, Immature Gran % (Auto) 0.600, Neut % (Auto) 72.4 H, Lymph % (Auto) 12.8 L,[place] % (Auto) 13.0 H, Eos % (Auto) 0.6, Baso % (Auto) 0.6, Absolute Neuts (auto)5.3, Absolute Lymphs (auto) 0.93, Nucleated RBC % 0, Sodium 138, Potassium 4.3, Chloride 108, Carbon Dioxide 18.9 L, Anion Gap 12, BUN 58 H, Creatinine 3.39 H, Estim Creat Clear Calc 19.44 L, Est GFR (MDRD) Non-Af 18 L, BUN/Creatinine Ratio17.1, Glucose 125 H, Calcium 8.3, Total Bilirubin 0.39, AST 49 H, ALT 64 H, Alkaline Phosphatase 91, Total Creatine Kinase 189, Total Protein 5.9, Albumin 3.5, Globulin 2.4, Albumin/Globulin Ratio 1.5, Triglycerides 219 H, Cholesterol 84, LDL Cholesterol, Calc 4, VLDL Cholesterol 44 H, HDL Cholesterol 36 L, Cholesterol/HDL Ratio 2.32, TSH 1.220 02/13/25 07:47: POC Glucose 110 H Micro: Microbiology 02/12/25 22:50 Nasal Secretion MRSA (PCR) - Final 02/12/25 21:10 Mucosa - Nasopharyngeal Respiratory Panel (PCR) - Final 02/12/25 19:17 Mucosa - Nose SARS-CoV-2, Influenza & RSV (PCR) - Final ABG Data ABG results: ABG 02/12/25 02/12/25 02/12/25 19:28 19:37 23:27 Specimen Type ART Cancelled ART Sample Site R Radial Cancelled R Radial pH 7.17 L* Cancelled 7.33 L Bicarbonate Actual 20.5 L Cancelled 20.9 L Total CO2 22 Cancelled 22 Base Excess -8 L Cancelled -5 L O2 Saturation 100 H Cancelled 95 O2 % 100.0 Cancelled 40.0 ABG pCO2 56.8 H Cancelled 39.3 ABG pO2 217 H Cancelled 82 Lu Test N/A Cancelled Positive Respiration Rate 14 Cancelled 14 O2 Delivery Device Adult Vent Cancelled ET Tube Liter Flow Cancelled Minute Volume Cancelled Vent Mode AC Cancelled AC Inspiratory Time Cancelled Expiratory Time Cancelled Tidal Volume 450.0 Cancelled 450.0 Mean Airway Pressure Cancelled POC PEEP 5 Cancelled 5 Peak Inspir Pressure Cancelled POC Pressure Suppt Cancelled Pressure Control Cancelled Pressure High Cancelled Pressure Low Cancelled Time High Cancelled Time Low Cancelled EPAP Cancelled IPAP Cancelled Blood Gas Comments Cancelled Crit Call To/Read Back Yes Cancelled Blood Gas Notified Whom Dr Hendrickson Cancelled Blood Gas Notified Time 19:30:20 Cancelled Clinical Comments Cancelled Rhythm Strip Rhythm Strip: Sinus Rhythm Rate: 78 Ectopy: None Imaging Radiology Impression Chest X-Ray 02/12/25 19:01 IMPRESSION: Mild pulmonary vascular congestion. No definite focal consolidation. [facility] Chest X-Ray 02/13/25 04:10 IMPRESSION: Clearing pulmonary edema pattern. Reading [facility] Assessment and Plan . Assessment and plan: Patient seen and examined Chart and data reviewed Sedated - NAD UOP adequate MV reviewed TTE is pending Anticipate SAT/SBT in am Continue loop diuretics d/w NOK at BS The entirety of this encounter was done via Telemedicine 02/13/25 1325 <Electronically signed by Jan Yen MD> Cosigner Signature (if applicable): CC: ~ Signed [facility] Work Phone: [phone] Progress note [facility] Medical Records Department [address] [place] [address] Progress Note - Location And Measurement Technician 02/13/25 1324 MR#: [id number] Acct: [id number] Name: SAM VIDALES Rep #:[id number] : 1950 74 From: Jan Valencia PCP: [facility] Status:ADM IN Location: ICU ICU01-1 Objective Data Objective Data Vital Signs: Vital Signs Last response 3 Temperature 37.7 C H 02/13/25 12:00 Temperature Source Core 02/13/25 12:00 Pulse Rate 71 02/13/25 13:05 Pulse Strength Weak (1+) 02/13/25 09:04 Respiratory Rate 19 H 02/13/25 13:05 Respiratory Effort Mechanically Ventilated 02/13/25 08:00 Respiratory Depth Normal 02/13/25 08:00 Respiratory Pattern Normal 02/13/25 13:05 Blood Pressure 104/44 L 02/13/25 12:00 Blood Pressure Mean 64 02/13/25 12:00 Blood Pressure Source Monitor 02/13/25 12:00 Blood Pressure Position Semi-Fowlers 02/13/25 12:00 Blood Pressure Location Right Arm 02/13/25 12:00 Pulse Ox 98 02/13/25 13:05 Oxygen Delivery Method Mechanical Ventilator 02/13/25 12:00 Oxygen Flow Rate (L/min) 15 02/12/25 18:45 Fraction of Inspired Oxygen (FIO2) 30 02/13/25 13:05 I&O: I&O Last 24 Hours 3 02/12/25 02/13/25 02/13/25 23:59 11:59 23:59 Intake Total 186.25 / 195.95 260.31 / 272.74 12.43 / 272.74 Output Total 1250 / 1250 Balance 186.25 / 195.95 -989.69 / -977.26 12.43 / -977.26 I&O: Total Stay 3 02/12/25 18:44 thru 02/13/25 12:55 Intake Total 458.99 Output Total 1250 Balance -791.01 Current Meds Ordered / Administered: Current meds ordered / Administered 3 Generic Name Dose Route Start Last Admin Trade Name Freq PRN Reason Stop Dose Admin Acetaminophen 650 mg 02/12/25 22:09 Acetaminophen 650 Mg Suppository RC Q4H PRN PRN Fever, pain 1-10 Acetaminophen 650 mg 02/12/25 22:09 Acetaminophen 325 Mg Tablet PO Q4H PRN PRN Fever, pain 1-10/10 Al Hydroxide/Mg Hydroxide 30 ml 02/12/25 22:09 Mag Hydrox/Al Hydrox/Simeth 30 Ml Udc PO Q6H PRN PRN Gastric Burning Albuterol Sulfate 2.5 mg 02/12/25 22:09 Albuterol 2.5 Mg/3 Ml Vial.Neb. INHALATION Q2H PRN PRN Dyspnea, wheezing Albuterol/Ipratropium 3 ml 02/12/25 22:09 02/13/25 10:52 Ipratropium/Albuterol Sulfate 3 Ml Ampul.Neb INHALATION 3 ml Q4HWA.RT LORIN Administration Calamine/Phenol 1 applic 02/12/25 22:09 02/13/25 07:48 Menthol/Lanolin/Calamine/Znox 113 Gm Tube TOPICAL 1 applic 4X/DAY LORIN Administration Protocol Chlorhexidine Gluconate 15 ml 02/12/25 22:02/13/25 07:48 Chlorhexidine 15 Ml PO 15 ml BID LORIN Administration Furosemide 60 mg 02/13/25 14:00 Furosemide 40 Mg/4 Ml Vial IV 4X/DAY LORIN Guaifenesin 10 ml 02/12/25 22:09 Guaifenesin 10 Ml Udc (200mg/10ml) PO Q4H PRN PRN COUGH Heparin Sodium (Porcine) 5,000 unit 02/12/25 22:09 02/13/25 07:49 Heparin Injection (Vial) 5,000 Unit/Ml Vial SC 5,000 unit Q12 LORIN Administration Hydralazine HCl 10 mg 02/12/25 22:09 Hydralazine 20 Mg/Ml Vial IV Q4H PRN PRN SBP > 160 Protocol Pantoprazole Sodium 40 mg/ 100 mls @ 330 mls/hr 02/12/25 22:09 02/13/25 09:37 Sodium Chloride IV Infused Q12 LORIN Infusion Fentanyl 100 mls @ 5 mls/hr 02/12/25 22:09 02/13/25 10:30 CONT INF 75 mcg/hr UD LORIN 7.5 mls/hr Titration Protocol 50 MCG/HR Sodium Chloride 250 mls @ 15 mls/hr 02/12/25 22:13 IV .[id number] PRN Saline Flush Sodium Chloride 250 mls @ 15 mls/hr 02/12/25 22:13 IV .[id number] PRN Additional IVPB Infusion Propofol 1,000 mg in 100 mls @ 4.746 mls/hr 02/12/25 22:30 02/13/25 12:55 Diprivan CONT INF 20 mcg/kg/min .Q12H LORIN 9.5 mls/hr Titration Protocol 10 MCG/KG/MIN Insulin Human Lispro 0 unit 02/13/25 06:00 02/13/25 12:51 Insulin Lispro 100 Unit/Ml Insuln.Pen SC Not Given Q6 LORIN Protocol Melatonin 3 mg 02/12/25 22:09 Melatonin 3 Mg Tablet PO QHS PRN PRN INSOMNIA Midodrine 10 mg 02/12/25 22:09 02/13/25 12:56 Midodrine Hcl 5 Mg Tablet PO 10 mg TIDCM LORIN Administration Nitroglycerin 0.4 mg 02/12/25 22:09 Nitroglycerin (Inpatient Use) 0.4 Mg Tab.Subl SL Q5M PRN CARDIAC/CHEST PAIN Ondansetron HCl 4 mg 02/12/25 22:09 Ondansetron 4 Mg/2 Ml Vial IV Q8H PRN PRN NAUSEA/VOMITING Senna/Docusate Sodium 2 tablet 02/12/25 22:09 Senna/Docusate Sodium 1 Tablet PO BID PRN PRN Constipation Sodium Chloride 5 ml 02/12/25 22:09 Sodium Cl For Inhalation 15 Ml Vial.Neb. INHALATION Q5M PRN Suctioning Sodium Chloride 10 - 40 ml 02/12/25 22:13 02/13/25 08:02 0.9% Saline Lock 10 Ml Syringe IV 10 ml UD PRN Administration SALINE FLUSH Lab / Micro Data 02/13/25 05:25 02/13/25 05:25 Labs: Laboratory Results - last 24 hr 02/12/25 18:30: WBC 11.7 H, RBC 4.08 L, Hgb 12.2 L, Hct 37.2 L, MCV 91.2, MCH 29.9, MCHC 32.8, RDW Std Deviation 43.5, RDW Coeff of Samir 13.2, Plt Count 181, MPV 10.5, Immature Gran % (Auto) 0.600, Neut % (Auto) 70.0, Lymph % (Auto) 14.9 L, [place] % (Auto) 11.4 H, Eos % (Auto) 2.5, Baso % (Auto) 0.6, Absolute Neuts (auto) 8.2 H, Absolute Lymphs (auto) 1.75, Nucleated RBC % 0, PT 14.2, INR 1.1, APTT 30.4, Sodium 138, Potassium 4.6, Chloride 104, Carbon Dioxide 18.1 L, AnionGap 16 H, BUN 56 H, Creatinine 3.36 H, Estim Creat Clear Calc 19.61 L, Est GFR (MDRD) Non-Af 18 L, BUN/Creatinine Ratio 16.6,Glucose 224 H, Calcium 9.1, Magnesium 2.9 H, Total Bilirubin 0.55, AST 71 H, ALT 80 H, Alkaline Phosphatase 126, Troponin T High Sens 146 H*, [place] [address] H, Total Protein 7.8, Albumin 4.5, Globulin 3.3, Albumin/Globulin Ratio 1.4 02/12/25 19:00: Lactic Acid 1.2 02/12/25 19:37: Urine Color Straw, Urine Clarity Sl. Cloudy, Urine pH 5.0, Ur Specific [place] 1.015, Urine Protein 100 H, Urine Glucose (UA) 1000 H, Urine Ketones Negative, Urine Occult Blood 25 H, Urine Nitrite Negative, Urine Bilirubin Negative, Urine Urobilinogen Normal, Ur Leukocyte Esterase Negative, Urine RBC 0-5 SEEN, Urine WBC 0-5 SEEN, Ur Squamous Epith Cells 0-5 SEEN, Urine Bacteria 1+, Urine Mucus 0 SEEN 02/12/25 20:45: Troponin T Hi Sens 2 Hr 156 H* 02/12/25 22:50: Total Creatine Kinase Cancelled, Troponin T Hi Sens 4Hr 167 H*, Triglycerides 81 08/08/25 23:01: POC Glucose 161 H 02/13/25 05:23: POC Glucose 115 H 02/13/25 05:25: WBC 7.2, RBC 3.18 L, Hgb 9.6 L, Hct 28.6 L, MCV 89.9, MCH 30.2, MCHC 33.6, RDW Std Deviation 43.8, RDW Coeff of Samir 13.2, Plt Count 145 L, MPV 10.3, Immature Gran % (Auto) 0.600, Neut% (Auto) 72.4 H, Lymph % (Auto) 12.8 L,[place] % (Auto) 13.0 H, Eos % (Auto) 0.6, Baso % (Auto) 0.6, Absolute Neuts (auto)5.3, Absolute Lymphs (auto) 0.93, Nucleated RBC % 0, Sodium 138, Potassium 4.3, Chloride 108, Carbon Dioxide 18.9 L, Anion Gap 12, BUN 58 H, Creatinine 3.39 H, Estim Creat Clear Calc 19.44 L, Est GFR (MDRD) Non-Af 18 L, BUN/Creatinine Ratio17.1, Glucose 125 H, Calcium 8.3, Total Bilirubin 0.39, AST 49 H, ALT 64 H, Alkaline Phosphatase 91, Total Creatine Kinase 189, Total Protein 5.9, Albumin 3.5, Globulin 2.4, Albumin/Globulin Ratio 1.5, Triglycerides 219 H, Cholesterol 84, LDL Cholesterol, Calc 4, VLDL Cholesterol 44 H, HDL Cholesterol 36 L, Cholesterol/HDL Ratio 2.32, TSH1.220 02/13/25 07:47: POC Glucose 110 H Micro: Microbiology 02/12/25 22:50 Nasal Secretion MRSA (PCR) - Final 02/12/25 21:10 Mucosa - Nasopharyngeal Respiratory Panel (PCR) - Final 02/12/25 19:17 Mucosa - Nose SARS-CoV-2, Influenza & RSV (PCR) - Final ABG Data ABG results: ABG 02/12/25 02/12/25 02/12/25 19:28 19:37 23:27 Specimen Type ART Cancelled ART Sample Site R Radial Cancelled R Radial pH 7.17 L* Cancelled 7.33 L Bicarbonate Actual 20.5 L Cancelled 20.9 L Total CO2 22 Cancelled 22 Base Excess -8 L Cancelled -5 L O2 Saturation 100 H Cancelled 95 O2 % 100.0 Cancelled 40.0 ABG pCO2 56.8 H Cancelled 39.3 ABG pO2 217 H Cancelled 82 Lu Test N/A Cancelled Positive Respiration Rate 14 Cancelled 14 O2 Delivery Device Adult Vent Cancelled ET Tube Liter Flow Cancelled Minute Volume Cancelled Vent Mode AC Cancelled AC Inspiratory Time Cancelled Expiratory Time Cancelled Tidal Volume 450.0 Cancelled 450.0 Mean Airway Pressure Cancelled POC PEEP 5 Cancelled 5 Peak Inspir Pressure Cancelled POC Pressure Suppt Cancelled Pressure Control Cancelled Pressure High Cancelled Pressure Low Cancelled Time High Cancelled Time Low Cancelled EPAP Cancelled IPAP Cancelled Blood Gas Comments Cancelled Crit Call To/Read Back Yes Cancelled Blood Gas Notified Whom Dr Hendrickson Cancelled Blood Gas Notified Time 19:30:20 Cancelled Clinical Comments Cancelled Rhythm Strip Rhythm Strip: Sinus Rhythm Rate: 78 Ectopy: None Imaging Radiology Impression Chest X-Ray 02/12/25 19:01 IMPRESSION: Mild pulmonary vascular congestion. No definite focal consolidation. Reading Location: [facility] Chest X-Ray 02/13/25 04:10 IMPRESSION: Clearing pulmonary edema pattern. Reading Location: [place] [address] Assessment and Plan . Assessment and plan: Patient seen and examined Chart and data reviewed Sedated - NAD UOP adequate MV reviewed TTE is pending Anticipate SAT/SBT in am Continue loop diuretics d/w NOK at BS The entirety of this encounter was done via Telemedicine 02/13/25 1325 Cosigner Signature (if applicable): CC: ~ Signed [facility]08-09-2025 Consult note Author Nir Mccarthy [facility] Note Date/Time February 13, 2025 4:5 6am [facility] Medical Records Department [address] [place] [address] Consultation - Location And Measurement Technician 02/13/25 0326 MR#: [id number] Acct: [id number] Name: SAM VIDALES Rep #:[id number] : 1950 74 From: Nir Mccarthy MD [facility] Status:ADM IN Location: ICU ICU01-1 HPI Consult Data Date of Consult: 02/13/25 HPI Narrative HPI Narrative: SAM VIDALES is a 74 Male with known CAD s/p CABG ?4, CKD, and hypertension was brought in by EMS for shortness of breath. At home was 80% on room air; placed on NRB by EMS. In ED, mental status fluctuated; initial BiPAP attempt aborted in favor of intubation for worsening respiratory status and decreased consciousness. reports recent heavy activity (golfing, carrying salt bags) and increased fatigue. Initial labs: WBC 11.7 ?10?/?L, platelets 181 ?10?/?L, VBG with PCO2 60 mmHg and lactate normal. BNP markedly elevated at 15,000 pg/mL. Viral panel negative. Hewas given a diagnosis of acute decompensated heart failure with pulmonary edema. Creatinine elevated at 3.0 mg/dL (baseline unknown). Low BP initially in ED, likely from sedatives for intubation; now stable (low ~96/50). No fluid restriction currently ordered; daily weights performed. Cardiology consulted; echocardiogram pending. Received Lasix 40 mg IV tonight; prior dosing BID. [facility] Medical History Former tobacco use Valvular heart disease CKD (chronic kidney disease), stage IV HLD (hyperlipidemia) HTN (hypertension) CAD (coronary artery disease) Medical History unable to obtain Allergy/AdvReac Type Severity Reaction Status Date / Time lisinopril AdvReac Mild Cough Verified 02/12/25 20:33 Family History (Updated 02/12/25 @ 20:[address] Vandana Bro MD) Sister Heart disease Hypertension Daughter Heart disease Hypertension Mother Heart disease Father Heart disease Family History unable to obtain Surgical History Hx of coronary artery bypass graft S/P laminectomy Surgical History unable to obtain Social History household members: spouse Smoking Status: Unknown if ever smoked how long ago did patient quit smoking: Quit 1997. alcohol intake: current alcohol intake frequency: holidays/special occasions only substance use type: does not use Objective Data Objective Data Vital Signs: Vital Signs Last response 3 Temperature 37.4 C H 08/09/25 03:00 Temperature Source Core 02/13/25 03:00 Pulse Rate 59 L 02/13/25 03:00 Respiratory Rate 14 02/13/25 03:00 Respiratory Effort Mechanically Ventilated 02/13/25 00:00 Respiratory Depth Normal 02/13/25 00:00 Respiratory Pattern Normal 02/13/25 02:39 Blood Pressure 107/51 L 02/13/25 03:00 Blood Pressure Mean 69 02/13/25 03:00 Blood Pressure Source Monitor 02/13/25 03:00 Pulse Ox 100 02/13/25 03:00 Oxygen Delivery Method Mechanical Ventilator 02/13/25 03:00 Oxygen Flow Rate (L/min) 15 02/12/25 18:45 Fraction of Inspired Oxygen (FIO2) 30 02/13/25 03:00 I&O: I&O Last 24 Hours 3 02/12/25 02/12/25 02/13/25 11:59 23:59 11:59 Intake Total 186.25 / 195.95 34.10 / 34.10 Balance 186.25 / 195.95 34.10 / 34.10 I&O: Total Stay 3 02/12/25 18:44 thru 02/13/25 02:00 Intake Total 220.35 Balance 220.35 Current Meds Ordered / Administered: Current meds ordered / Administered 3 Generic Name Dose Route Start Last Admin Trade Name Freq PRN Reason Stop Dose Admin Acetaminophen 650 mg 02/12/25 22:09 Acetaminophen 650 Mg Suppository RC Q4H PRN PRN Fever, pain 1-10 Acetaminophen 650 mg 02/12/25 22:09 Acetaminophen 325 Mg Tablet PO Q4H PRN PRN Fever, pain 1-10/10 Al Hydroxide/Mg Hydroxide 30 ml 02/12/25 22:09 Mag Hydrox/Al Hydrox/Simeth 30 Ml Udc PO Q6H PRN PRN Gastric Burning Albuterol Sulfate 2.5 mg 02/12/25 22:09 Albuterol 2.5 Mg/3 Ml Vial.Neb. INHALATION Q2H PRN PRN Dyspnea, wheezing Albuterol/Ipratropium 3 ml 02/12/25 22:09 02/12/25 23:14 Ipratropium/Albuterol Sulfate 3 Ml Ampul.Neb INHALATION 3 ml Q4HWA.RT LORIN Administration Calamine/Phenol 1 applic 02/12/25 22:09 02/12/25 22:57 Menthol/Lanolin/Calamine/Znox 113 Gm Tube TOPICAL 1 applic 4X/DAY LORIN Administration Protocol Chlorhexidine Gluconate 15 ml 02/12/25 22:09 02/12/25 22:57 Chlorhexidine 15 Ml PO 15 ml BID LORIN Administration Furosemide 40 mg 02/12/25 22:09 02/12/25 22:59 Furosemide 40 Mg/4 Ml Vial IV 40 mg BID@1000,1800 LROIN Administration Guaifenesin 10 ml 02/12/25 22:09 Guaifenesin 10 Ml Udc (200mg/10ml) PO Q4H PRN PRN COUGH Heparin Sodium (Porcine) 5,000 unit 02/12/25 22:09 02/12/25 23:22 Heparin Injection (Vial) 5,000 Unit/Ml Vial SC 5,000 unit Q12 LORIN Administration Hydralazine HCl 10 mg 02/12/25 22:09 Hydralazine 20 Mg/Ml Vial IV Q4H PRN PRN SBP > 160 Protocol Pantoprazole Sodium 40 mg/ 100 mls @ 330 mls/hr 02/12/25 22:09 02/12/25 23:44 Sodium Chloride IV Infused Q12 LORIN Infusion Fentanyl 100 mls @ 5 mls/hr 02/12/25 22:09 02/13/25 02:00 CONT INF 75 mcg/hr UD LORIN 7.5 mls/hr Titration Protocol 50 MCG/HR Sodium Chloride 250 mls @ 15 mls/hr 02/12/25 22:13 IV .[id number] PRN Saline Flush Sodium Chloride 250 mls @ 15 mls/hr 02/12/25 22:13 IV .[id number] PRN Additional IVPB Infusion Propofol 1,000 mg in 100 mls @ 4.746 mls/hr 02/12/25 22:30 02/13/25 02:00 Diprivan CONT INF 10 mcg/kg/min .Q12H LORIN 4.7 mls/hr Titration Protocol 10 MCG/KG/MIN Insulin Human Lispro 0 unit 02/12/25 22:09 02/12/25 23:21 Insulin Lispro 100 Unit/Ml Insuln.Pen SC 1 u Q6H LORIN Administration Protocol Melatonin 3 mg 02/12/25 22:09 Melatonin 3 Mg Tablet PO QHS PRN PRN INSOMNIA Midodrine 10 mg 02/12/25 22:09 02/12/25 23:05 Midodrine Hcl 5 Mg Tablet PO 10 mg TIDCM LORIN Administration Nitroglycerin 0.4 mg 02/12/25 22:09 Nitroglycerin (Inpatient Use) 0.4 Mg Tab.Subl SL Q5M PRN CARDIAC/CHEST PAIN Ondansetron HCl 4 mg 02/12/25 22:09 Ondansetron 4 Mg/2 Ml Vial IV Q8H PRN PRN NAUSEA/VOMITING Senna/Docusate Sodium 2 tablet 02/12/25 22:09 Senna/Docusate Sodium 1 Tablet PO BID PRN PRN Constipation Sodium Chloride 5 ml 02/12/25 22:09 Sodium Cl For Inhalation 15 Ml Vial.Neb. INHALATION Q5M PRN Suctioning Sodium Chloride 10 - 40 ml 02/12/25 22:13 02/12/25 23:05 0.9% Saline Lock 10 Ml Syringe IV 20 ml UD PRN Administration SALINE FLUSH Physical Exam Narrative General: Intubated, sedated, stable hemodynamics Resp: dimisnished breath sounds bilaterally CV: Regular rhythm Neuro: Sedated Skin: No acute findings Lab / Micro Data 02/12/25 18:30 02/12/25 18:30 Labs: Laboratory Results - last 24 hr 02/12/25 18:30: WBC 11.7 H, RBC 4.08 L, Hgb 12.2 L, Hct 37.2 L, MCV 91.2, MCH 29.9, MCHC 32.8, RDW Std Deviation 43.5, RDW Coeff of Samir 13.2, Plt Count 181, MPV 10.5, Immature Gran % (Auto) 0.600, Neut % (Auto) 70.0, Lymph % (Auto) 14.9 L, [place] % (Auto) 11.4 H, Eos % (Auto) 2.5, Baso % (Auto) 0.6, Absolute Neuts (auto) 8.2 H, Absolute Lymphs (auto) 1.75, Nucleated RBC % 0, PT 14.2, INR 1.1, APTT 30.4, Sodium 138, Potassium 4.6, Chloride 104, Carbon Dioxide 18.1 L, AnionGap 16 H, BUN 56 H, Creatinine 3.36 H, Estim Creat Clear Calc 19.61 L, Est GFR (MDRD) Non-Af 18 L, BUN/Creatinine Ratio 16.6, Glucose 224 H, Calcium 9.1, Magnesium 2.9 H, Total Bilirubin 0.55, AST 71 H, ALT 80 H, Alkaline Phosphatase 126, Troponin T High Sens 146 H*, [place] [address] H, Total Protein 7.8, Albumin 4.5, Globulin 3.3, Albumin/Globulin Ratio 1.4 02/12/25 19:00: Lactic Acid 1.2 02/12/25 19:37: Urine Color Straw, Urine Clarity Sl. Cloudy, Urine pH 5.0, Ur Specific [place] 1.015, Urine Protein 100 H, Urine Glucose (UA) 1000 H, Urine Ketones Negative, Urine Occult Blood 25 H, Urine Nitrite Negative, Urine Bilirubin Negative, Urine Urobilinogen Normal, Ur Leukocyte Esterase Negative, Urine RBC 0-5 SEEN, Urine WBC 0-5 SEEN, Ur Squamous Epith Cells 0-5 SEEN, Urine Bacteria 1+, Urine Mucus 0 SEEN 02/12/25 20:45: Troponin T Hi Sens 2 Hr 156 H* 02/12/25 22:50: Total Creatine Kinase Cancelled, Troponin T Hi Sens 4Hr 167 H*, Triglycerides 81 02/12/25 23:01: POC Glucose 161 H Micro: Microbiology 02/12/25 21:10 Mucosa - Nasopharyngeal Respiratory Panel (PCR) - Final 02/12/25 19:17 Mucosa - Nose SARS-CoV-2, Influenza & RSV (PCR) - Final ABG Data ABG results: ABG 02/12/25 02/12/25 02/12/25 19:28 19:37 23:27 Specimen Type ART ART ART Sample Site R Radial Not entered R Radial pH 7.17 L* 7.15 L* 7.33 L Bicarbonate Actual 20.5 L 21.0 L 20.9 L Total CO2 22 23 22 Base Excess -8 L -8 L -5 L O2 Saturation 100 H 100 H 95 O2 % 100.0 40.0 ABG pCO2 56.8 H 60.7 H 39.3 ABG pO2 217 H 230 H 82 Lu Test N/A Positive Respiration Rate 14 14 O2 Delivery Device Adult Vent Not entered ET Tube Vent Mode AC Not entered AC Tidal Volume 450.0 450.0 POC PEEP 5 5 Crit Call To/Read Back Yes Yes Blood Gas Notified Whom Dr Hendrickson Blood Gas Notified Time 19:30:20 Rhythm Strip Rhythm Strip: Sinus Rhythm Rate: 78 Ectopy: None Imaging Radiology Impression Chest X-Ray 02/12/25 19:01 IMPRESSION: Mild pulmonary vascular congestion. No definite focal consolidation. Reading Location: [facility] Assessment and Plan . Assessment and plan: 1. Acute decompensated heart failure ? Continue IV diuresis; may require increased Lasix dose (60?80 mg IV) given elevated creatinine; monitor I/O, daily weights; fluid restriction to be ordered; follow echo. 2. Acute hypoxemic/hypercapnic respiratory failure ? Continue lung-protective ventilation, wean as tolerated. 3. CKD ? Avoid nephrotoxins; trend creatinine; adjust meds for renal function. 4. CAD s/p CABG ? Continue secondary prevention once stable. 5. Hypertension ? Monitor; currently normotensive. 6. Disposition ? ICU until extubation readiness. Critical Care Time: 42 mins The entirety of this encounter was done via Telemedicine 02/13/25 0456 <Electronically signed by Nir Mccarthy MD> Cosigner Signature (if applicable): CC: [facility]~ Signed [facility] Work Phone: [phone]) 345-273808-09-2025 Radiology Diagnostic study note [facility] Imaging Services [address] [place] [address] Chest 1 View (Portable) MR#: [id number] Acct: [id number] Name: SAM VIDALES Rep #: [id number] : 1950 M 74 From: Lilly Drew MD PCP: [facility] Status: ADM IN Study:Chest 1 View (Portable) Date of Exam: 02/13/25 Exam# [id number] Ordering Dr: Cassie Bro MD PROCEDURE: CHEST 1 VIEW (PORTABLE) 02/13/2025 REASON FOR EXAM: DYSPNEA TECHNIQUE: Frontal view of the chest. COMPARISON: 02/12/2025 FINDINGS: ETT tip between the inlet and the dick. Enteric tube tip in stomach lumen. Upper limits of normalheart size, possible LVH. Status post CABG. Redemonstration of mild central lung opacities, partial interval improvement. No large effusion or pneumothorax. RAD/Chest 1 View (Portable) IMPRESSION: Clearing pulmonary edema pattern. Reading Location: [facility] CC: Dr. Vandana Bro MD; [facility] ~ [employer]lor[employer]utadi[employer] Scrubber Operator: Signed [facility]08-09-2025 Consult note [facility] Medical Records Department [address] [place] [address] Consultation - Location And Measurement Technician 02/13/25 0326 MR#: [id number] Acct: [id number] Name: SAM VIDALES Rep #:[id number] : 1950 74 From: Nir Mccarthy MD PCP: [facility] Status:ADM IN Location: ICU ICU01-1 HPI Consult Data Date of Consult: 02/13/25 HPI Narrative HPI Narrative: SAM VIDALES is a 74 Male with known CAD s/p CABG ?4, CKD, and hypertension was brought in by EMSfor shortness of breath. At home was 80% on room air; placed on NRB by EMS. In ED, mental status fluctuated; initial BiPAP attempt aborted in favor of intubation for worsening respiratory status and decreased consciousness. reports recent heavy activity (golfing, carrying salt bags) and increased fatigue. Initial labs: WBC 11.7 ?10?/?L, platelets 181 ?10?/?L, VBG with PCO2 60 mmHg and lactate normal. BNP markedly elevated at 15,000 pg/mL. Viral panel negative. Hewas given a diagnosis of acute decompensated heart failure with pulmonary edema. Creatinine elevated at 3.0 mg/dL (baseline unknown). Low BP initially in ED, likely from sedatives for intubation; now stable (low ~96/50). No fluid restriction currently ordered; daily weights performed. Cardiology consulted; echocardiogram pending. Received Lasix 40 mg IV tonight; prior dosing BID. [facility] Medical History Former tobacco use Valvular heart disease CKD (chronic kidney disease), stage IV HLD (hyperlipidemia) HTN (hypertension) CAD (coronary artery disease) Medical History unable to obtain Allergy/AdvReac Type Severity Reaction Status Date / Time lisinopril AdvReac Mild Cough Verified 02/12/25 20:33 Family History (Updated 02/12/25 @ 20:[address] Vandana Bro MD) Sister Heart disease Hypertension Daughter Heart disease Hypertension Mother Heart disease Father Heart disease Family History unable to obtain Surgical History Hx of coronary artery bypass graft S/P laminectomy Surgical History unable to obtain Social History household members: spouse Smoking Status: Unknown if ever smoked how long ago did patient quit smoking: Quit 1997. alcohol intake: current alcohol intake frequency: holidays/special occasions only substance use type: does not use Objective Data Objective Data Vital Signs: Vital Signs Last response 3 Temperature 37.4 C H 02/13/25 03:00 Temperature Source Core 02/13/25 03:00 Pulse Rate 59 L 02/13/25 03:00 Respiratory Rate 14 02/13/25 03:00 Respiratory Effort Mechanically Ventilated 02/13/25 00:00 Respiratory Depth Normal 02/13/25 00:00 Respiratory Pattern Normal 02/13/25 02:39 Blood Pressure 107/51 L 02/13/25 03:00 Blood Pressure Mean 69 02/13/25 03:00 Blood Pressure Source Monitor 02/13/25 03:00 Pulse Ox 100 02/13/25 03:00 Oxygen Delivery Method Mechanical Ventilator 02/13/25 03:00 Oxygen Flow Rate (L/min) 15 02/12/25 18:45 Fraction of Inspired Oxygen (FIO2) 30 02/13/25 03:00 I&O: I&O Last 24 Hours 3 02/12/25 02/12/25 02/13/25 11:59 23:59 11:59 Intake Total 186.25 / 195.95 34.10 / 34.10 Balance 186.25 / 195.95 34.10 / 34.10 I&O: Total Stay 3 02/12/25 18:44 thru 02/13/25 02:00 Intake Total 220.35 Balance 220.35 Current Meds Ordered / Administered: Current meds ordered / Administered 3 Generic Name Dose Route Start Last Admin Trade Name Freq PRN Reason Stop Dose Admin Acetaminophen 650 mg 02/12/25 22:09 Acetaminophen 650 Mg Suppository RC Q4H PRN PRN Fever, pain 1-10 Acetaminophen 650 mg 02/12/25 22:09 Acetaminophen 325 Mg Tablet PO Q4H PRN PRN Fever, pain 1-10/10 Al Hydroxide/Mg Hydroxide 30 ml 02/12/25 22:09 Mag Hydrox/Al Hydrox/Simeth 30 Ml Udc PO Q6H PRN PRN Gastric Burning Albuterol Sulfate 2.5 mg 02/12/25 22:09 Albuterol 2.5 Mg/3 Ml Vial.Neb. INHALATION Q2H PRN PRN Dyspnea, wheezing Albuterol/Ipratropium 3 ml 02/12/25 22:09 02/12/25 23:14 Ipratropium/Albuterol Sulfate 3 Ml Ampul.Neb INHALATION 3 ml Q4HWA.RT LORIN Administration Calamine/Phenol 1 applic 02/12/25 22:09 02/12/25 22:57 Menthol/Lanolin/Calamine/Znox 113 Gm Tube TOPICAL 1 applic 4X/DAY LORIN Administration Protocol Chlorhexidine Gluconate 15 ml 02/12/25 22:02/12/25 22:57 Chlorhexidine 15 Ml PO 15 ml BID LORIN Administration Furosemide 40 mg 02/12/25 22:09 02/12/25 22:59 Furosemide 40 Mg/4 Ml Vial IV 40 mg BID@1000,1800 LORIN Administration Guaifenesin 10 ml 02/12/25 22:09 Guaifenesin 10 Ml Udc (200mg/10ml) PO Q4H PRN PRN COUGH Heparin Sodium (Porcine) 5,000 unit 02/12/25 22:09 02/12/25 23:22 Heparin Injection (Vial) 5,000 Unit/Ml Vial SC 5,000 unit Q12 LORIN Administration Hydralazine HCl 10 mg 02/12/25 22:09 Hydralazine 20 Mg/Ml Vial IV Q4H PRN PRN SBP > 160 Protocol Pantoprazole Sodium 40 mg/ 100 mls @ 330 mls/hr 02/12/25 22:09 02/12/25 23:44 Sodium Chloride IV Infused Q12 LORIN Infusion Fentanyl 100 mls @ 5 mls/hr 02/12/25 22:09 02/13/25 02:00 CONT INF 75 mcg/hr UD LORIN 7.5 mls/hr Titration Protocol 50 MCG/HR Sodium Chloride 250 mls @ 15 mls/hr 02/12/25 22:13 IV .[id number] PRN Saline Flush Sodium Chloride 250 mls @ 15 mls/hr 02/12/25 22:13 IV .[id number] PRN Additional IVPB Infusion Propofol 1,000 mg in 100 mls @ 4.746 mls/hr 02/12/25 22:30 02/13/25 02:00 Diprivan CONT INF 10 mcg/kg/min .Q12H LORIN 4.7 mls/hr Titration Protocol 10 MCG/KG/MIN Insulin Human Lispro 0 unit 02/12/25 22:09 02/12/25 23:21 Insulin Lispro 100 Unit/Ml Insuln.Pen SC 1 u Q6H LORIN Administration Protocol Melatonin 3 mg 02/12/25 22:09 Melatonin 3 Mg Tablet PO QHS PRN PRN INSOMNIA Midodrine 10 mg 02/12/25 22:09 02/12/25 23:05 Midodrine Hcl 5 Mg Tablet PO 10 mg TIDCM LORIN Administration Nitroglycerin 0.4 mg 02/12/25 22:09 Nitroglycerin (Inpatient Use) 0.4 Mg Tab.Subl SL Q5M PRN CARDIAC/CHEST PAIN Ondansetron HCl 4 mg 02/12/25 22:09 Ondansetron 4 Mg/2 Ml Vial IV Q8H PRN PRN NAUSEA/VOMITING Senna/Docusate Sodium 2 tablet 02/12/25 22:09 Senna/Docusate Sodium 1 Tablet PO BID PRN PRN Constipation Sodium Chloride 5 ml 02/12/25 22:09 Sodium Cl For Inhalation 15 Ml Vial.Neb. INHALATION Q5M PRN Suctioning Sodium Chloride 10 - 40 ml 02/12/25 22:13 02/12/25 23:05 0.9% Saline Lock 10 Ml Syringe IV 20 ml UD PRN Administration SALINE FLUSH Physical Exam Narrative General: Intubated, sedated, stable hemodynamics Resp: dimisnished breath sounds bilaterally CV: Regular rhythm Neuro: Sedated Skin: No acute findings Lab / Micro Data 02/12/25 18:30 02/12/25 18:30 Labs: Laboratory Results - last 24 hr 02/12/25 18:30: WBC 11.7 H, RBC 4.08 L, Hgb 12.2 L, Hct 37.2 L, MCV 91.2, MCH 29.9, MCHC 32.8, RDW Std Deviation 43.5, RDW Coeff of Samir 13.2, Plt Count 181, MPV 10.5, Immature Gran % (Auto) 0.600, Neut % (Auto) 70.0, Lymph % (Auto) 14.9 L, [place] % (Auto) 11.4 H, Eos % (Auto) 2.5, Baso % (Auto) 0.6, Absolute Neuts (auto) 8.2 H, Absolute Lymphs (auto) 1.75, Nucleated RBC % 0, PT 14.2, INR 1.1, APTT 30.4, Sodium 138, Potassium 4.6, Chloride 104, Carbon Dioxide 18.1 L, AnionGap 16 H, BUN 56 H, Creatinine 3.36 H, Estim Creat Clear Calc 19.61 L, Est GFR (MDRD) Non-Af 18 L, BUN/Creatinine Ratio 16.6,Glucose 224 H, Calcium 9.1, Magnesium 2.9 H, Total Bilirubin 0.55, AST 71 H, ALT 80 H, Alkaline Phosphatase 126, Troponin T High Sens 146 H*, [place] [address] H, Total Protein 7.8, Albumin 4.5, Globulin 3.3, Albumin/Globulin Ratio 1.4 02/12/25 19:00: Lactic Acid 1.2 02/12/25 19:37: Urine Color Straw, Urine Clarity Sl. Cloudy, Urine pH 5.0, Ur Specific [place] 1.015, Urine Protein 100 H, Urine Glucose (UA) 1000 H, Urine Ketones Negative, Urine Occult Blood 25 H, Urine Nitrite Negative, Urine Bilirubin Negative, Urine Urobilinogen Normal, Ur Leukocyte Esterase Negative, Urine RBC 0-5 SEEN, Urine WBC 0-5 SEEN, Ur Squamous Epith Cells 0-5 SEEN, Urine Bacteria 1+, Urine Mucus 0 SEEN 02/12/25 20:45: Troponin T Hi Sens 2 Hr 156 H* 02/12/25 22:50: Total Creatine Kinase Cancelled, Troponin T Hi Sens 4Hr 167 H*, Triglycerides 81 02/12/25 23:01: POC Glucose 161 H Micro: Microbiology 02/12/25 21:10 Mucosa - Nasopharyngeal Respiratory Panel (PCR) - Final 02/12/25 19:17 Mucosa - Nose SARS-CoV-2, Influenza & RSV (PCR) - Final ABG Data ABG results: ABG 02/12/25 02/12/25 02/12/25 19:28 19:37 23:27 Specimen Type ART ART ART Sample Site R Radial Not entered R Radial pH 7.17 L* 7.15 L* 7.33 L Bicarbonate Actual 20.5 L 21.0 L 20.9 L Total CO2 22 23 22 Base Excess -8 L -8 L -5 L O2 Saturation 100 H 100 H 95 O2 % 100.0 40.0 ABG pCO2 56.8 H 60.7 H 39.3 ABG pO2 217 H 230 H 82 Lu Test N/A Positive Respiration Rate 14 14 O2 Delivery Device Adult Vent Not entered ET Tube Vent Mode AC Not entered AC Tidal Volume 450.0 450.0 POC PEEP 5 5 Crit Call To/Read Back Yes Yes Blood Gas Notified Whom Dr Hendrickson Blood Gas Notified Time 19:30:20 Rhythm Strip Rhythm Strip: Sinus Rhythm Rate: 78 Ectopy: None Imaging Radiology Impression Chest X-Ray 02/12/25 19:01 IMPRESSION: Mild pulmonary vascular congestion. No definite focal consolidation. Reading Location: [facility] Assessment and Plan . Assessment and plan: 1. Acute decompensated heart failure ? Continue IV diuresis; may require increased Lasix dose (60?80 mg IV) given elevated creatinine; monitor I/O, daily weights; fluid restriction to be ordered; follow echo. 2. Acute hypoxemic/hypercapnic respiratory failure ? Continue lung-protective ventilation, wean as tolerated. 3. CKD ? Avoid nephrotoxins; trend creatinine; adjust meds for renal function. 4. CAD s/p CABG ? Continue secondary prevention once stable. 5. Hypertension ? Monitor; currently normotensive. 6. Disposition ? ICU until extubation readiness. Critical Care Time: 42 mins The entirety of this encounter was done via Telemedicine 02/13/25 0456 Cosigner Signature (if applicable): CC: [facility]~ Signed [facility]08-08-2025 History and physical note Author Vandana Bro [facility] Note Date/Time February 12, 2025 9:0 1pm [facility] Medical Records Department [address] [place] [address] H&P Exam - Hospitalist 02/12/252012 MR#: [id number] Acct: [id number] Name: SAM VIDALES Rep #:[id number] : 1950 74 From: Vandana Bro MD PCP: [facility] Status:ADM IN Location: ICU ICU01-1 HPI - General General Date of Admission: 02/12/25 Date of Service: 02/12/25 Chief Complaint: Fatigue, malaise, acute dyspnea/respiratory distress. HPI Narrative The patient is a 74 y/o M [facility] patient w/ PMHx: CAD s/p CABG x 4 2016, CKD stage IV, HTN, HLD, Valvular Heart Disease, Diabetes mellitus type II and [facility] with general malaise and fatigue over the last several days brought in by EMS who noted upon their arrival at his home his pulse oximeter was 80% and he was very diaphoretic and pale and respiratory failure with intubation initiated with then transition to the ED for further evaluation. who is present does report that he has beenvery active for the last 2 to 3 days including several rounds of golf and carrying heavy salt bags with only complaint of generalized fatigue and malaise as well as sore muscles. Workup in the ED included T97.5, heart rate 79, BP 159/100, respiratory rate 35, initially 86% on a nonrebreather 15 L eventually intubated with most recent repeat vitals T97.4, heart rate 62, BP 93/49, respiratory rate 20, 99% ventilated, CBC with WC 11.7, hemoglobin 12.2, MCV 91.2, platelet 181 with left shift, unremarkable coags, ABG with pH 7.15, [id number], O2 saturation 100%, pCO2 60.7, PO230 ventilated, CMP with At 18.1, anion gap16, BUN/creatinine 56/3.36, GFR 18, glucose 224, AST/LT 71/80, initial troponin 146, lactic acid 1.2, NT proBNPII pending upon requested evaluation patient, urinalysis with cloudy appearing urine, specific gravity 1.015, protein 100, glucose thousand, negative ketone, occult blood 25, negative nitrite, negative leukocyte esterase with remainder of urinalysis pending upon request evaluation of patient, chest x-ray with appearance of mild vascular congestion with no obvious acute infiltrate, EKG with sinus rhythm with no acute evidence of ischemia with depressions in lead 4 and 5 no comparison, blood culture x 2 pending per ED, urine culture pending per ED, rapid SARS COVID/flu/RSV PCR negative. In the ED patient administered succinylcholine 100 mg IV x 1, etomidate 20 mg IV x 1, fentanyl 50 mcg IV x 1, Ativan a total of 2 mg IV in addition to initiated on propofol drip. HOME MEDICATIONS: Atorvastatin 40 mg nightly Aspirin 81 mg daily Ezetimibe 10 mg daily Insulin glargine 35 units subcu daily Isosorbide mononitrate extended release 30 mg p.o. daily Minoxidil 5 mg daily Coreg 25 mg p.o. twice daily Chlorthalidone 25 mg daily Empagliflozin 12.5 mg daily Dulaglutide 0.75 mg/0.5 mL 0.75 mg subcu weekly [facility] Medical History Former tobacco use Valvular heart disease CKD (chronic kidney disease), stage IV HLD (hyperlipidemia) HTN (hypertension) CAD (coronary artery disease) Medical History unable to obtain Allergy/AdvReac Type Severity Reaction Status Date / Time lisinopril AdvReac Mild Cough Verified 02/12/25 20:33 Family History (Updated 02/12/25 @ 20:[address] Vandana Bro MD) Sister Heart disease Hypertension Daughter Heart disease Hypertension Mother Heart disease Father Heart disease Family History unable to obtain Surgical History Hx of coronary artery bypass graft S/P laminectomy Surgical History unable to obtain Social History household members: spouse Smoking Status: Former smoker how long ago did patient quit smoking: Quit 1997. alcohol intake: current alcohol intake frequency: holidays/special occasions only substance use type: does not use ROS Review of Systems ROS Unobtainable: due to endotracheal tube Vital Signs Vital Signs Vital Signs: 02/12/25 18:45 02/12/25 18:49 02/12/25 18:50 Temperature 97.5 F L 97.5 F L Temperature Source Axillary Core Pulse Rate 79 63 Respiratory Rate 35 H 24 H Respiratory Effort Short of Breath Labored Accessory Muscle Use Retracting Respiratory Depth Deep Respiratory Pattern Tachypnea Blood Pressure 159/100 H 160/101 H Blood Pressure Mean 119 120 Pulse Ox 86 99 Oxygen Delivery Method Non-Rebreather Mechanical Ventilator Non-Rebreather Oxygen Flow Rate (L/min) 15 Fraction of Inspired Oxygen (FIO2) 02/12/25 18:51 02/12/25 18:55 02/12/25 19:19 Temperature 97.5 F L Temperature Source Core Pulse Rate 64 Respiratory Rate 17 Respiratory Effort Short of Breath Labored Accessory Muscle Use Respiratory Depth Deep Respiratory Pattern Tachypnea Blood Pressure 109/50 L Blood Pressure Mean 69 Pulse Ox 97 100 100 Oxygen Delivery Method Ambu-Bag Mechanical Ventilator Mechanical Ventilator Oxygen Flow Rate (L/min) Fraction of Inspired Oxygen (FIO2) 02/12/25 19:30 02/12/25 19:42 02/12/25 20:00 Temperature 97.5 F L 97.4 F L 97.3 F L Temperature Source Core Oral Core Pulse Rate 63 62 60 Respiratory Rate 21 H 20 H 23 H Respiratory Effort Respiratory Depth Respiratory Pattern Blood Pressure 101/54 L 93/49 L 86/38 L Blood Pressure Mean 69 63 54 Pulse Ox 100 99 97 Oxygen Delivery Method Room Air Room Air Mechanical Ventilator Oxygen Flow Rate (L/min) Fraction of Inspired Oxygen (FIO2) 60 Weight Weight: 179 lb 10.828 oz Body Mass Index (BMI) 25.7 Physical Exam Narrative Physical Examination: General: Intubated, sedated, laying in the ED bed, occasionally moving, currently no acute distress. Awake, alert, oriented x 3 and cooperative, seated upright in bed in no apparent distress. Skin: Normal color, normal turgor, no icterus, no cyanosis except occasional stage ecchymoses, abrasion. HEENT: AT/NC, EOM unable to be assessed well given intubated and sedated status,PERRLA, mildly dry MM, no carotid bruits, + JVD noted, ET tube in place. Lungs: Diminished, greater bases, currently intubated with symmetric rise, appreciated very mild distant rales at bases respiratory distress improved following intubation. Heart: Regular rate and rhythm; no gallop, rub audible. Abdomen: Soft, no obvious grimacing with palpation, distant BS, no obvious distention or HSM. Extremities: No cyanosis, no clubbing, no significant distal pitting edema noted. Neurological: Intubated, sedated, laying in the ED bed, occasionally moving, currently no acute distress. Awake, alert, oriented x 3 and cooperative, seated upright in bed in no apparent distress, cognitive function not baseline intact; pupils equally reactive to light and accommodation, cranial nerves unable to be assessed well given intubated sedated status, occasionally moving extremities asnoted, strength severely globally decreased. Psychiatric: Affect appears flat, intubated, sedated no acute evidence of depressive or anxiety feelings. Results Lab / Micro Data 02/12/25 18:30 02/12/25 18:30 Labs: Laboratory Results - last 24 hr 02/12/25 18:30: WBC 11.7 H, RBC 4.08 L, Hgb 12.2 L, Hct 37.2 L, MCV 91.2, MCH 29.9, MCHC 32.8, RDW Std Deviation 43.5, RDW Coeff of Samir 13.2, Plt Count 181, MPV 10.5, Immature Gran % (Auto) 0.600, Neut % (Auto) 70.0, Lymph % (Auto) 14.9 L, [place] % (Auto) 11.4 H, Eos % (Auto) 2.5, Baso % (Auto) 0.6, Absolute Neuts (auto) 8.2 H, Absolute Lymphs (auto) 1.75, Nucleated RBC % 0, PT 14.2, INR 1.1, APTT 30.4, Sodium 138, Potassium 4.6, Chloride 104, Carbon Dioxide 18.1 L, AnionGap 16 H, BUN 56 H, Creatinine 3.36 H, Estim Creat Clear Calc 19.61 L, Est GFR (MDRD) Non-Af 18 L, BUN/Creatinine Ratio 16.6, Glucose 224 H, Calcium 9.1, TotalBilirubin 0.55, AST 71 H, ALT 80 H, Alkaline Phosphatase 126, Troponin T High Sens 146 H*, Total Protein 7.8, Albumin 4.5, Globulin 3.3, Albumin/Globulin Ratio 1.4 02/12/25 19:00: Lactic Acid 1.2 02/12/25 19:37: Urine Color Straw, Urine Clarity Sl. Cloudy, Urine pH 5.0, Ur Specific [place] 1.015, Urine Protein 100 H, Urine Glucose (UA) 1000 H, Urine Ketones Negative, Urine Occult Blood 25 H, Urine Nitrite Negative, Urine Bilirubin Negative, Urine Urobilinogen Normal, Ur Leukocyte Esterase Negative, Urine RBC 0-5 SEEN, Urine WBC 0-5 SEEN, Ur Squamous Epith Cells 0-5 SEEN, Urine Bacteria 1+, Urine Mucus 0 SEEN Micro: Microbiology 02/12/25 19:17 Mucosa - Nose SARS-CoV-2, Influenza & RSV (PCR) - Final ABG Data ABG results: ABG 02/12/25 02/12/25 19:28 19:37 Specimen Type ART ART Sample Site R Radial Not entered pH 7.17 L* 7.15 L* Bicarbonate Actual 20.5 L 21.0 L Total CO2 22 23 Base Excess -8 L -8 L O2 Saturation 100 H 100 H O2 % 100.0 ABG pCO2 56.8 H 60.7 H ABG pO2 217 H 230 H Lu Test N/A Respiration Rate 14 O2 Delivery Device Adult Vent Not entered Vent Mode AC Not entered Tidal Volume 450.0 POC PEEP 5 Crit Call To/Read Back Yes Yes Blood Gas Notified Whom Dr Hendrickson Blood Gas Notified Time 19:30:20 Rhythm Strip Rhythm Strip: Sinus Rhythm Rate: 78 Ectopy: None Imaging Radiology Impression Chest X-Ray 02/12/25 19:01 IMPRESSION: Mild pulmonary vascular congestion. No definite focal consolidation. Reading Location: [facility] Assessment & Plan Assessment/Plan (1) Respiratory failure: PLAN: Plan The patient is a 74 y/o M [facility] patient w/ PMHx: CAD s/p CABG x 4 2016, CKD stage IV, HTN, HLD, Valvular Heart Disease, Diabetes mellitus type II and [facility] with general malaise and fatigue over the last several days brought in by EMS who noted upon their arrival at his home his pulse oximeter was 80% and he was very diaphoretic and pale and respiratory failure with intubation initiated with then transition to the ED for further evaluation. #1. 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 Echocardiogram requested. Additionally will obtain full respiratory viral panel, attempt to induce sputum and send for culture, plan for repeat chest x-ray in a.m. to assure no infectious etiology for this presentation but lower suspicion at this time. Will hold off on procalcitonin #2. Indeterminate cardiac enzyme, suspect demand associated given acute hypoxicrespiratory failure as noted #1: EKG in ED sinus rhythm with no acute evidence of ischemia, CXR w/ evidence of vascular congestion, initial trop 146. Will maintain on a monitored bed to assure no acute myocardial infarction with serialcardiac enzymes and EKGs. Magnesium level requested. FLP in AM. Echocardiogram requested. Will administer full-strength aspirin x 1 and continue baby daily. #3. Acute Renal Insufficiency on CKD stage IV: Likely related with #1, admission BUN/Cr 56/3.36, GFR 18, prior baseline creatinine was noted 07/2024 BUN/creatinine 42/2.85 with GFR 23 at that time, will hold nephrotoxic medication aside from diuresis given his presentation, resume once clinically appropriate, trend CMP. #4. Transaminitis, potentially acute: Admission CMP with AST/ALT 271/80, no clear comparison but certainly given presentation could be elevated, will continue to treat as noted above, trend CMP. #5. Normocytic anemia, appears new in chronicity: Admission CBC with gvyiefqmet01.2, MCV 91.2, prior labs from [facility] with normal level as of 07/2024, will continue to trend CBC. #6. CAD: Status post CABG x 4 FLORES-LAD, Free GWEN-OM1 Y graft off FLORES, SVG-OM2, SVG-PLB 08/06/2016, will continue aspirin, not on statin therapy but on ezetimibe, holding beta-oneyda given hypotensive presentation, add back once appropriate, not on ALEXANDREA inhibitor secondary to cough related side effect, not onARB likely secondary to renal disease. #7. Hypertension: Given hypotension with initiation of propofol attempted to transition to fentanyl only, holding hypertensive regimen aside from attempt to utilize IV diuretic therapy. #8. Hyperlipidemia: Per current list does not appear to be on statin therapy, clarified to be certain, noted to be on ezetimibe only. FLP in AM. #9. Valvular Heart disease: Noted history of aortic disease, unable to obtain recent ECHO results, but last noted EF possibly 60%, will obtain repeat ECHO as noted. #10. Diabetes mellitus type II: Hold oral home regimen, continue home insulin regimen, n.p.o. status with every 6 hours accu checks w/ ISS. #11. Former tobacco use: Encourage continued tobacco cessation. #12. DVT prophylaxis: Heparin however transition to drip if significant rise incardiac enzymes. #13. CODE status: Patient JUSTINE is his who is and living will is currentlyin place. Discussed CODE status at length including difference between FULL code, DNR-CCA and DNR-CC status. Following discussions about the differences in these status, requested Full Code status. Advanced Care Planning Face to Face Time: 16 minutes. Charges/Coding Visit Charges Inpatient E&M: 04469 Init Hosp L3 Procedures Hospitalists Procedures: 43977 Advncd Care Plan 30 Min 02/12/251 <Electronically signed by Vandana Bro MD> Cosigner Signature (if applicable): CC: Dr. Vandana Bro MD; [facility]~ Signed [facility] Work Phone: [phone] 127-724608-08-2025 Discharge summary Author Ayaz Hendrickson [facility] Note Date/Time February 12, 2025 8:5 1pm [facility] Medical Records Department [address] [place] [address] Emergency Department Summary 02/12/25 MR#: [id number] Acct: [id number] Name: SAM VIDALES Efren Rep #:[id number] : 1950 74 From: Ayaz Hendrickson MD PCP: [facility] Status:ADM IN Location: ICU ICU01-1 HPI History of Present Illness Chief Complaint: Shortness of Breath Informant: patient and EMS Onset/Context/Timing Onset: Days Context: gradual Timing: Continuous Current Severity: Severe Maximum Severity: Severe Associated Symptoms Chest Pain: Positive for None Narrative Narrative: 74-year-old male history of diabetes and prior CABG in 2016. States he has not felt well for the last several days. He presents in respiratory distress and adarsh very limited informant. He was brought in by squad. On their arrival to homehis pulse ox was 80% on room air. Patient presents very diaphoretic and pale eminent respiratory failure he was intubated using etomidate and succinylcholineon the first attempt with a 7.5 F ET tube. Currently there is no family available when they arrive I will talk with them and get better history. PE Risk Factors: Negative for Cancer, OCP + Smoking + > 35, Prior DVT or PE, Recent immobilization, Recent surgery or Recent travel Prior similar symptoms: No Recent Illness/Hospitalization: No PFSH PFSH Medical History (Updated 02/12/25 @ 20:[address] Ayaz Hendrickson MD) Former tobacco use Valvular heart disease CKD (chronic kidney disease), stage IV HLD (hyperlipidemia) HTN (hypertension) CAD (coronary artery disease) Medical History unable to obtain Allergy/AdvReac Type Severity Reaction Status Date / Time Unable to Assess Allergy Verified 02/12/25 18:59 Family History (Updated 02/12/25 @ 20:[address] Vandana Bro MD) Sister Heart disease Hypertension Daughter Heart disease Hypertension Family History unable to obtain Surgical History (Updated 02/12/25 @ 20:[address] Ayaz Hendrickson MD) Hx of coronary artery bypass graft S/P laminectomy Surgical History unable to obtain Social History (Updated 02/12/25 @ 20:[address] Vandana Bro MD) household members: spouse Smoking Status: Former smoker how long ago did patient quit smoking: Quit 1997. alcohol intake: current alcohol intake frequency: holidays/special occasions only substance use type: does not use ROS ROS ED ROS Narrative Shortness of breath. Limited due to the patient's current medical condition andextremis. Review of Systems ROS Unobtainable: due to encephalopathy and due to endotracheal tube Respiratory/Chest Respiratory/Chest: Reports dyspnea EXAM Physical Exam Narrative Exam Narrative: 74-year-old male presents pulse ox is 86% on nonrebreather mask at 15 L. He appears ill. He is extremely diaphoretic and pale. He is a limited informant. Brought in by squad. HEENT exam pupils round react light. Moist mucous membranes. Neck nontender no JVD. No lymphadenopathy. Lungs clear to auscultation bilaterally but distant lung sounds. Heart rate about 80 no murmur. Chest wall nontender but diaphoretic. No crepitus. Abdomen soft nontender, nondistended normal bowel sounds without peritoneal signs. Moving all 4 extremities. Diaphoretic. Calves are nontender no cords or edema. Neurologically he seems confused. He is try to answer questions he is moving all 4 extremities. The confusion may be from his hypoxia or encephalopathy. Const Vital Signs: 02/12/25 18:45 02/12/25 18:49 02/12/25 18:50 Temperature 97.5 F L 97.5 F L Temperature Source Axillary Core Pulse Rate 79 63 Respiratory Rate 35 H 24 H Respiratory Effort Short of Breath Labored Accessory Muscle Use Retracting Respiratory Depth Deep Respiratory Pattern Tachypnea Blood Pressure 159/100 H 160/101 H Blood Pressure Mean 119 120 Pulse Ox 86 99 Oxygen Delivery Method Non-Rebreather Mechanical Ventilator Non-Rebreather Oxygen Flow Rate (L/min) 15 Fraction of Inspired Oxygen (FIO2) 02/12/25 18:51 02/12/25 18:55 02/12/25 19:19 Temperature 97.5 F L Temperature Source Core Pulse Rate 64 Respiratory Rate 17 Respiratory Effort Short of Breath Labored Accessory Muscle Use Respiratory Depth Deep Respiratory Pattern Tachypnea Blood Pressure 109/50 L Blood Pressure Mean 69 Pulse Ox 97 100 100 Oxygen Delivery Method Ambu-Bag Mechanical Ventilator Mechanical Ventilator Oxygen Flow Rate (L/min) Fraction of Inspired Oxygen (FIO2) 02/12/25 19:30 02/12/25 19:42 02/12/25 20:00 Temperature 97.5 F L 97.4 F L 97.3 F L Temperature Source Core Oral Core Pulse Rate 63 62 60 Respiratory Rate 21 H 20 H 23 H Respiratory Effort Respiratory Depth Respiratory Pattern Blood Pressure 101/54 L 93/49 L 86/38 L Blood Pressure Mean 69 63 54 Pulse Ox 100 99 97 Oxygen Delivery Method Room Air Room Air Mechanical Ventilator Oxygen Flow Rate (L/min) Fraction of Inspired Oxygen (FIO2) 60 Positive well nourished and well developed; Negative for obese, cachectic or contractures General Appearance ED: well developed and pallor; Negative for cachectic, contractures or NAD Nutritional Appearance: Negative for cachectic or obese HEENT Reports moist mucous membranes atraumatic Eyes PERRL and EOMs intact bilaterally Neck no lymphadenopathy, supple, no meningeal signs and no JVD Resp No normal respiratory effort and clear to auscultation bilaterally Resp Narrative: Increased respiratory rate. Respiratory failure. Fatiguing. Cardio regular rate, regular rhythm, S1 normal heart sound, S2 normal heart sound and no murmurs GI non-tender, non-distended and no masses Palpation: soft; Negative for tender, guarding or rebound tenderness present Back/Spine no CVA tenderness and normal to inspection Extremity normal to inspection General Extremety ED: Negative for edema or tenderness General Extremity: Negative for edema Neuro Neuro Narrative: Confused. Encephalopathic. Sensorium / Orientation: alert and oriented to person Motor Exam: general weakness Psych mental status grossly normal Skin no wounds and skin turgor normal Skin Narrative: Diaphoretic and pale. General Skin Exam: pallor; Negative for jaundice MDM MDM MDM Narrative Medical decision making narrative: Patient presents hypoxic in respiratory distress and diaphoretic. He appeared to be tiring out and fatiguing. I did not think he would be able to tolerate BiPAP and would fatigue. So he emergently intubated him using succinylcholine 100 mg and etomidate 20. He has secretions in the posterior pharynx. Is able to pass a 7 and half ET tube on the first attempt. He bagged up from around 80%to mid 90s quickly. I did speak to the patient's when she arrived. She states that she been very healthy recently. He has not been sick at all. On Saturday or of this week he played a full 18 holes of golf. The next day he carried [id number] pound bags of salt to the water softener today became acutely short of breath. She said he was diaphoretic and she called the squad. He typically gets [facility] at the [facility]. He does have a history of diabetes, aortic stenosis and stage III or IV kidney disease. He sees a upper doubler here. She and I went over his test results why he was intubated and he will be admitted to the ICU. I spoken to our hospitalist. Patient's on a propofol drip. He has received Ativan to be placed on fentanyl for sedation. History & Record Review Discussion w/independent historian: Patient Lab Data Attestation: I reviewed the patient's lab results. Lab results narrative: CBC shows a white count 11.7. H&H 12.2 and 37. Platelets 181. PT/INR 14 and 1. PTT 30. Electrolytes show sodium 138. Gap 16. BUN and creatinine of 56 and 3.36. Glucose 224. Lactic acid 1.2. Liver enzymes show slightly elevated AST and ALT. Initial troponin elevated 146. BNP is elevated at 15,000. UA macro shows glucose otherwise no nitrates. ABG shows a pH of 7.16, pCO2 of 56 and pO2 217. 99% on the ventilator. Labs: Laboratory Results - last 24 hr 02/12/25 02/12/25 02/12/25 18:30 19:00 19:37 WBC 11.7 H RBC 4.08 L Hgb 12.2 L Hct 37.2 L MCV 91.2 MCH 29.9 MCHC 32.8 RDW Std Deviation 43.5 RDW Coeff of Samir 13.2 Plt Count 181 MPV 10.5 Immature Gran % (Auto) 0.600 Neut % (Auto) 70.0 Lymph % (Auto) 14.9 L [place] % (Auto) 11.4 H Eos % (Auto) 2.5 Baso % (Auto) 0.6 Absolute Neuts (auto) 8.2 H Absolute Lymphs (auto) 1.75 Nucleated RBC % 0 PT 14.2 INR 1.1 APTT 30.4 Sodium 138 Potassium 4.6 Chloride 104 Carbon Dioxide 18.1 L Anion Gap 16 H BUN 56 H Creatinine 3.36 H Estim Creat Clear Calc 19.61 L Est GFR (MDRD) Non-Af 18 L BUN/Creatinine Ratio 16.6 Glucose 224 H Lactic Acid 1.2 Calcium 9.1 Total Bilirubin 0.55 AST 71 H ALT 80 H Alkaline Phosphatase 126 Troponin T High Sens 146 H* [place] [address] H Total Protein 7.8 Albumin 4.5 Globulin 3.3 Albumin/Globulin Ratio 1.4 Urine Color Straw Urine Clarity Sl. Cloudy Urine pH 5.0 Ur Specific [place] 1.015 Urine Protein 100 H Urine Glucose (UA) 1000 H Urine Ketones Negative Urine Occult Blood 25 H Urine Nitrite Negative Urine Bilirubin Negative Urine Urobilinogen Normal Ur Leukocyte Esterase Negative Urine RBC 0-5 SEEN Urine WBC 0-5 SEEN Ur Squamous Epith Cells 0-5 SEEN Urine Bacteria 1+ Urine Mucus 0 SEEN ABG Data ABG results: ABG 02/12/25 02/12/25 19:28 19:37 Specimen Type ART ART Sample Site R Radial Not entered pH 7.17 L* 7.15 L* Bicarbonate Actual 20.5 L 21.0 L Total CO2 22 23 Base Excess -8 L -8 L O2 Saturation 100 H 100 H O2 % 100.0 ABG pCO2 56.8 H 60.7 H ABG pO2 217 H 230 H Lu Test N/A Respiration Rate 14 O2 Delivery Device Adult Vent Not entered Vent Mode AC Not entered Tidal Volume 450.0 POC PEEP 5 Crit Call To/Read Back Yes Yes Blood Gas Notified Whom Dr Hendrickson Blood Gas Notified Time 19:30:20 Radiography Chest X-Ray - ED: 1 View, Heart, Mediastinum, Bony Structures, Chronic Changes, CHF and - (Prior sternotomy. Sternal wires. Bilateral pulmonary edema.) Diagnostic Testing: Clinical Impression(s) from Imaging Studies Chest X-Ray 02/12/25 19:01 IMPRESSION: Mild pulmonary vascular congestion. No definite focal consolidation. Reading Location: [facility] Chest x-ray portable, single view, interpreted by myself shows prior CABG with sternotomy. ET tube in good position but was advanced 1 cm. Normal cardiac silhouette. Bilateral pulmonary edema consistent with CHF. OG in the stomach. Rhythm Strip Rhythm Strip: Sinus Rhythm Rate: 78 Ectopy: None EKG Initial EKG: Attestation: I personally reviewed and interpreted this EKG as follows: Interpretation: Sinus Rhythm and No Acute Injury Pattern Comments: Normal sinus rhythm rate 78 no acute signs of IL. Does have depressions in leads V4 and V5. Critical Care Time Critical Care Time: Yes Critical care time (excluding procedures): 30-74 minutes, Including time spent:,Discussing w/Patient &/or Family/[employer], Discussing w/Consultants, ArrangingAdmission or Transfer, Performing Direct Patient Care at Bedside and - (40 minutes) Discharge Plan Dx/Rx/DC Orders Clinical Impression: Respiratory failure, Endotracheally intubated, Congestive heart failure, Hx of coronary artery bypass graft, Chronic kidney disease, History of diabetes mellitus, History of aortic stenosis Disposition Disposition: Acute Care Hospital [facility] What to do if you have Problems For any increased pain, shortness of breath, bleeding, nausea or vomiting, chestpain, or any unexpected problems, contact your Primary Care Provider. Call [facility] ([phone]) or report to the closest Emergency Room. Call 911 if necessary. 02/12/252019 <Electronically signed by Ayaz Hendrickson MD> Cosigner Signature (if applicable): CC: [facility] ~ Signed ADDENDUM by Dr. Ayaz Hendrickson MD on 02/12/25 at 2050 Procedure note: Endotracheal tube intubation. Respiratory distress. Patient treated with etomidate 20 mg IV. 100 mg of succinylcholine. 7.5 [place] ET tubewas passed on the first attempt. Bilateral breath sounds were heard. Good vapor in the ET tube. Pulse ox went from around 80 to mid 90s. 02/12/252050<Electronically signed by Ayaz Hendrickson MD> Cosigner Signature (if applicable): cc: [facility] ~* Signed [facility] Work Phone: [phone] 297-815008-08-2025 Evaluation note* Diagnosis Onset Date Resolution Status Admit Date JUAN (acute kidney injury) acute February 12, 2025 8:25pm Congestive heart failure acute February 12, 2025 8:25pm History of aortic stenosis acute February 12, 2025 8:25pm History of diabetes mellitus acute February 12, 2025 8:25pm Hx of coronary artery bypass graft inactive February 12, 2025 8:25pm Respiratory failure acute 2024 8:25pm Chronic kidney disease chronic [facility] 2024 8:25pm [facility] Work Phone: [phone]) 386-774408-08-2025 Evaluation note* Diagnosis Onset Date Resolution Status Admit Date JUAN (acute kidney injury) inactive February 12, 2025 8:25pm Chronic kidney disease inactive [facility] 2024 8:25pm Congestive heart failure inactive February 12, 2025 8:25pm History of aortic stenosis inactive February 12, 2025 8:25pm History of diabetes mellitus inactiv e February 12, 2025 8:25pm Hx of coronary artery bypass graft inactive February 12, 2025 8:25pm Respiratory failure inactive 2024 8:25pm Acute dyspnea acute February 10:38am Acute heart failure acute 2024 10:38am Acute respiratory failure wi th hypoxia acute February 23 10:38am Anemia acute February 23, 2 025 10:38am CHF (congestive heart failure) acute February 23, 2025 10:38am History of aortic stenosis acute February 23, 2025 10:38am History of diabetes mellitus acute February 23, 2025 10:38am Hypoxia acute February 23, 2 025 10:38am Chronic kidney disease chronic [facility] 2024 10:38am Essential hypertension acute [facility] 2024 9:57am Insulin dependent diabetes mellitus acute March 03 9:57am 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, 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 March 03, 2025 9:57am Atherosclerosis of coronary artery of [place] heart without angina pectoris chronic March 03 9:57am Chronic kidney disease (CKD) chronic March 03, 2025 9:57am Hyperlipidemia chronic February 9:57am [facility] Work Phone: 1([phone]) 798-681908-08-2025 Evaluation note* Diagnosis Onset Date Resolution Status Admit Date JUAN (acute kidney injury) inactive February 12, 2025 8:25pm Chronic kidney disease inactive [facility] 2024 8:25pm Congestive heart failure inactive February 12, 2025 8:25pm History of aortic stenosis inactive February 12, 2025 8:25pm History of diabetes mellitus inactiv e February 12, 2025 8:25pm Hx of coronary artery bypass graft inactive February 12, 2025 8:25pm Respiratory failure inactive 2024 8:25pm Acute dyspnea resolved February 10:38am Acute heart failure resolved 2024 10:38am Acute respiratory failure wi th hypoxia resolved February 23 10:38am Hypoxia resolved February 23, 10:38am Anemia inactive February 23 10:38am CHF (congestive heart failure) inact gilbert February 23, 2025 10:38am Chronic kidney disease inactive [facility] 2024 10:38am History of aortic stenosis inactive February 23, 2025 10:38am History of diabetes mellitus inactiv e February 23, 2025 10:38am Essential hypertension acute [facility] 2024 9:57am Insulin dependent diabetes mellitus acute March 03 9:57am 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, 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 March 03, 2025 9:57am Atherosclerosis of coronary artery of [place] heart without angina pectoris chronic March 03 9:57am Chronic kidney disease (CKD) chronic March 03, 2025 9:57am Hyperlipidemia chronic February 9:57am [facility] Work Phone: 1([phone]) 805-535608-08-2025 History and physical note [facility] Medical Records Department [address] [place] [address] H&P Exam - Hospitalist 02/12/252012 MR#: [id number] Acct: [id number] Name: SAM VIDALES Rep #:[id number] : 1950 74 From: Vandana Bro MD PCP: [facility] Status:ADM IN Location: ICU ICU01-1 HPI - General General Date of Admission: 02/12/25 Date of Service: 02/12/25 Chief Complaint: Fatigue, malaise, acute dyspnea/respiratory distress. HPI Narrative The patient is a 74 y/o M [facility] patient w/ PMHx: CAD s/p CABG x 2016, CKD stage IV, HTN, HLD, Valvular Heart Disease, Diabetes mellitus type II and who [facility]2025 with general malaise and fatigue over the last several days brought in by EMS who noted upon their arrival at his home his pulse oximeter was 80% and he was very diaphoretic and pale and respiratory failure with intubation initiated with then transition to the ED for further evaluation. who is present does report that he has beenvery active for the last 2 to 3 days including several rounds of golf and carrying heavy salt bags with only complaint of generalized fatigue and malaise as well as sore muscles. Workup in the ED included T97.5, heart rate 79, BP 159/100, respiratory rate35, initially 86% on a nonrebreather 15 L eventually intubated with most recent repeat vitals T97.4, heart rate 62, BP 93/49, respiratory rate 20, 99% ventilated, CBC with WC 11.7, hemoglobin 12.2, MCV 91.2, platelet 181 with left shift, unremarkable coags, ABG with pH 7.15, hevuao96, O2 [id number]%, pCO2 60.7, PO230 ventilated, CMP with At 18.1, anion gap16, BUN/creatinine 56/3.36, GFR 18, glucose 224, AST/LT 71/80, initial troponin 146, lactic acid 1.2, NT proBNPII pending upon requested evaluation patient, urinalysis with cloudy appearing urine, specific gravity 1.015, protein 100, glucose thousand, negative ketone, occult blood 25, negative nitrite, negative leukocyte esterase with remainder of urinalysis pending upon request evaluation of patient, chest x-ray with appearance of mild vascular congestion with no obvious acute infiltrate, EKG with sinus rhythm with no acute evidence of ischemia with depressions in lead 4 and 5 no comparison, blood culture x 2 pending per ED, urine culture pending per ED, rapid SARS COVID/flu/RSV PCR negative. In the ED patient administered succinylcholine 100 mg IV x 1, etomidate 20 mg IV x 1, fentanyl 50 mcg IV x 1, Ativan a total of 2 mg IV in addition to initiated on propofol drip. HOME MEDICATIONS: Atorvastatin 40 mg nightly Aspirin 81 mg daily Ezetimibe 10 mg daily Insulin glargine 35 units subcu daily Isosorbide mononitrate extended release 30 mg p.o. daily Minoxidil 5 mg daily Coreg 25 mg p.o. twice daily Chlorthalidone 25 mg daily Empagliflozin 12.5 mg daily Dulaglutide 0.75 mg/0.5 mL 0.75 mg subcu weekly [facility] Medical History Former tobacco use Valvular heart disease CKD (chronic kidney disease), stage IV HLD (hyperlipidemia) HTN (hypertension) CAD (coronary artery disease) Medical History unable to obtain Allergy/AdvReac Type Severity Reaction Status Date / Time lisinopril AdvReac Mild Cough Verified 02/12/25 20:33 Family History (Updated 02/12/25 @ 20:[address] Vandana Bro MD) Sister Heart disease Hypertension Daughter Heart disease Hypertension Mother Heart disease Father Heart disease Family History unable to obtain Surgical History Hx of coronary artery bypass graft S/P laminectomy Surgical History unable to obtain Social History household members: spouse Smoking Status: Former smoker how long ago did patient quit smoking: Quit 1997. alcohol intake: current alcohol intake frequency: holidays/special occasions only substance use type: does not use ROS Review of Systems ROS Unobtainable: due to endotracheal tube Vital Signs Vital Signs Vital Signs: 02/12/25 18:45 02/12/25 18:49 02/12/25 18:50 Temperature 97.5 F L 97.5 F L Temperature Source Axillary Core Pulse Rate 79 63 Respiratory Rate 35 H 24 H Respiratory Effort Short of Breath Labored Accessory Muscle Use Retracting Respiratory Depth Deep Respiratory Pattern Tachypnea Blood Pressure 159/100 H 160/101 H Blood Pressure Mean 119 120 Pulse Ox 86 99 Oxygen Delivery Method Non-Rebreather Mechanical Ventilator Non-Rebreather Oxygen Flow Rate (L/min) 15 Fraction of Inspired Oxygen (FIO2) 02/12/25 18:51 02/12/25 18:55 02/12/25 19:19 Temperature 97.5 F L Temperature Source Core Pulse Rate 64 Respiratory Rate 17 Respiratory Effort Short of Breath Labored Accessory Muscle Use Respiratory Depth Deep Respiratory Pattern Tachypnea Blood Pressure 109/50 L Blood Pressure Mean 69 Pulse Ox 97 100 100 Oxygen Delivery Method Ambu-Bag Mechanical Ventilator Mechanical Ventilator Oxygen Flow Rate (L/min) Fraction of Inspired Oxygen (FIO2) 02/12/25 19:30 02/12/25 19:42 02/12/25 20:00 Temperature 97.5 F L 97.4 F L 97.3 F L Temperature Source Core Oral Core Pulse Rate 63 62 60 Respiratory Rate 21 H 20 H 23 H Respiratory Effort Respiratory Depth Respiratory Pattern Blood Pressure 101/54 L 93/49 L 86/38 L Blood Pressure Mean 69 63 54 Pulse Ox 100 99 97 Oxygen Delivery Method Room Air Room Air Mechanical Ventilator Oxygen Flow Rate (L/min) Fraction of Inspired Oxygen (FIO2) 60 Weight Weight: 179 lb 10.828 oz Body Mass Index (BMI) 25.7 Physical Exam Narrative Physical Examination: General: Intubated, sedated, laying in the ED bed, occasionally moving, currently no acute distress. Awake, alert, oriented x 3 and cooperative, seated upright in bed in no apparent distress. Skin: Normal color, normal turgor, no icterus, no cyanosis except occasional stage ecchymoses, abrasion. HEENT: AT/NC, EOM unable to be assessed well given intubated and sedated status,PERRLA, mildly dry MM, no carotid bruits, + JVD noted, ET tube in place. Lungs: Diminished, greater bases, currently intubated with symmetric rise, appreciated very mild distant rales at bases respiratory distress improved following intubation. Heart: Regular rate and rhythm; no gallop, rub audible. Abdomen: Soft, no obvious grimacing with palpation, distant BS, no obvious distention or HSM. Extremities: No cyanosis, no clubbing, no significant distal pitting edema noted. Neurological: Intubated, sedated, laying in the ED bed, occasionally moving, currently no acute distress. Awake, alert, oriented x 3 and cooperative, seated upright in bed in no apparent distress, cognitive function not baseline intact; pupils equally reactive to light and accommodation, cranial nerves unable to be assessed well given intubated sedated status, occasionally moving extremities asnoted, strength severely globally decreased. Psychiatric: Affect appears flat, intubated, sedated no acute evidence of depressive or anxiety feelings. Results Lab / Micro Data 02/12/25 18:30 02/12/25 18:30 Labs: Laboratory Results - last 24 hr 02/12/25 18:30: WBC 11.7 H, RBC 4.08 L, Hgb 12.2 L, Hct 37.2 L, MCV 91.2, MCH 29.9, MCHC 32.8, RDW Std Deviation 43.5, RDW Coeff of Samir 13.2, Plt Count 181, MPV 10.5, Immature Gran % (Auto) 0.600, Neut % (Auto) 70.0, Lymph % (Auto) 14.9 L, [place] % (Auto) 11.4 H, Eos % (Auto) 2.5, Baso % (Auto) 0.6, Absolute Neuts (auto) 8.2 H, Absolute Lymphs (auto) 1.75, Nucleated RBC % 0, PT 14.2, INR 1.1, APTT 30.4, Sodium 138, Potassium 4.6, Chloride 104, Carbon Dioxide 18.1 L, AnionGap 16 H, BUN 56 H, Creatinine 3.36 H, Estim Creat Clear Calc 19.61 L, Est GFR (MDRD) Non-Af 18 L, BUN/Creatinine Ratio 16.6,Glucose 224 H, Calcium 9.1, TotalBilirubin 0.55, AST 71 H, ALT 80 H, Alkaline Phosphatase 126, Troponin T High Sens 146 H*, Total Protein 7.8, Albumin 4.5, Globulin 3.3, Albumin/Globulin Ratio 1.4 02/12/25 19:00: Lactic Acid 1.2 02/12/25 19:37: Urine Color Straw, Urine Clarity Sl. Cloudy, Urine pH 5.0, Ur Specific [place] 1.015, Urine Protein 100 H, Urine Glucose (UA) 1000 H, Urine Ketones Negative, Urine Occult Blood 25 H, Urine Nitrite Negative, Urine Bilirubin Negative, Urine Urobilinogen Normal, Ur Leukocyte Esterase Negative, Urine RBC 0-5 SEEN, Urine WBC 0-5 SEEN, Ur Squamous Epith Cells 0-5 SEEN, Urine Bacteria 1+, Urine Mucus 0 SEEN Micro: Microbiology 02/12/25 19:17 Mucosa - Nose SARS-CoV-2, Influenza & RSV (PCR) - Final ABG Data ABG results: ABG 02/12/25 02/12/25 19:28 19:37 Specimen Type ART ART Sample Site R Radial Not entered pH 7.17 L* 7.15 L* Bicarbonate Actual 20.5 L 21.0 L Total CO2 22 23 Base Excess -8 L -8 L O2 Saturation 100 H 100 H O2 % 100.0 ABG pCO2 56.8 H 60.7 H ABG pO2 217 H 230 H Lu Test N/A Respiration Rate 14 O2 Delivery Device Adult Vent Not entered Vent Mode AC Not entered Tidal Volume 450.0 POC PEEP 5 Crit Call To/Read Back Yes Yes Blood Gas Notified Whom Dr Hendrickson Blood Gas Notified Time 19:30:20 Rhythm Strip Rhythm Strip: Sinus Rhythm Rate: 78 Ectopy: None Imaging Radiology Impression Chest X-Ray 02/12/25 19:01 IMPRESSION: Mild pulmonary vascular congestion. No definite focal consolidation. Reading Location: [facility] Assessment & Plan Assessment/Plan (1) Respiratory failure: PLAN: Plan The patient is a 74 [facility]/o M [facility] w/ PMHx: CAD s/p CABG x 4 2016, CKD stage IV, HTN, HLD, Valvular Heart Disease, Diabetes mellitus type II and who [facility] on 02/12/2025 with general malaise and fatigue over the last several days brought in by EMS who noted upon their arrival at his home his pulse oximeter was 80% and he was very diaphoretic and pale and respiratory failure with intubation initiated with then transition to the ED for further evaluation. #1. 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 Echocardiogram requested. Additionally will obtain full respiratory viral panel, attempt to induce sputum and send for culture, plan for repeat chest x-ray in a.m. to assure no infectious etiology for this presentation but lower suspicion at this time. Will hold off on procalcitonin #2. Indeterminate cardiac enzyme, suspect demand associated given acute hypoxicrespiratory failure as noted #1: EKG in ED sinus rhythm with no acute evidence of ischemia, CXR w/ evidence of vascular congestion, initial trop 146. Will maintain on a monitored bed to assure no acute myocardial infarction with serialcardiac enzymes and EKGs. Magnesium level requested. FLP in AM. Echocardiogram requested. Will administer full-strength aspirin x 1 and continue baby daily. #3. Acute Renal Insufficiency on CKD stage IV: Likely related with #1, admission BUN/Cr 56/3.36, GFR 18, prior baseline creatinine was noted 07/2024 BUN/creatinine 42/2.85 with GFR 23 at that time, will hold nephrotoxic medication aside from diuresis given his presentation, resume once clinically appropriate, trend CMP. #4. Transaminitis, potentially acute: Admission CMP with AST/ALT 271/80, no clear comparison but certainly given presentation could be elevated, will continue to treat as noted above, trend CMP. #5. Normocytic anemia, appears new in chronicity: Admission CBC with gcdutygjsc54.2, MCV 91.2, prior labs from [facility] with normal level as of 07/2024, will continue to trend CBC. #6. CAD: Status post CABG x 4 FLORES-LAD, Free GWEN-OM1 Y graft off FLORES, SVG-OM2, SVG-PLB 08/06/2016,will continue aspirin, not on statin therapy but on ezetimibe, holding beta-oneyda given hypotensive presentation, add back once appropriate, not on ALEXANDREA inhibitor secondary to cough related side effect, not onARB likely secondary to renal disease. #7. Hypertension: Given hypotension with initiation of propofol attempted to transition to fentanylonly, holding hypertensive regimen aside from attempt to utilize IV diuretic therapy. #8. Hyperlipidemia: Per current list does not appear to be on statin therapy, clarified to be certain, noted to be on ezetimibe only. FLP in AM. #9. Valvular Heart disease: Noted history of aortic disease, unable to obtain recent ECHO results, but last noted EF possibly 60%, will obtain repeat ECHO as noted. #10. Diabetes mellitus type II: Hold oral home regimen, continue home insulin regimen, n.p.o. status with every 6 hours accu checks w/ ISS. #11. Former tobacco use: Encourage continued tobacco cessation. #12. DVT prophylaxis: Heparin however transition to drip if significant rise incardiac enzymes. #13. CODE status: Patient JUSTINE is his who is and living will is currentlyin place. Discussed CODE status at length including difference between FULL code, DNR-CCA and DNR-CC status. Following discussions about the differences in these status, requested Full Code status. Advanced Care Planning Face to Face Time: 16 minutes. Charges/Coding Visit Charges Inpatient E&M: 67828 Init Hosp L3 Procedures Hospitalists Procedures: 42643 Advncd Care Plan 30 Min 02/12/25 2101 Cosigner Signature (if applicable): CC: Dr. Vandana Bro MD; [facility]~ Signed [facility]08-08-2025 Discharge summary [facility] Medical Records Department [address] [place] [address] Emergency Department Summary 02/12/25 MR#: [id number] Acct: [id number] Name: SAM VIDALES Rep #:[id number] : 1950 74 From: Ayaz Hendrickson MD PCP: [facility] Status:ADM IN Location: ICU ICU01-1 HPI History of Present Illness Chief Complaint: Shortness of Breath Informant: patient and EMS Onset/Context/Timing Onset: Days Context: gradual Timing: Continuous Current Severity: Severe Maximum Severity: Severe Associated Symptoms Chest Pain: Positive for None Narrative Narrative: 74-year-old male history of diabetes and prior CABG in 2016. States he has not felt well for the last several days. He presents in respiratory distress and adarsh very limited informant. He was brought in by squad. On their arrival to homehis pulse ox was 80% on room air. Patient presents very diaphoretic and pale eminent respiratory failure he was intubated using etomidate and succinylcholineon the first attempt with a 7.5 F ET tube. Currently there is no family available when they arrive I will talk with them and get better history. PE Risk Factors: Negative for Cancer, OCP + Smoking + > 35, Prior DVT or PE, Recent immobilization, Recent surgery or Recent travel Prior similar symptoms: No Recent Illness/Hospitalization: No PFSH PFSH Medical History (Updated 02/12/25 @ 20:[address] Ayaz Hendrickson MD) Former tobacco use Valvular heart disease CKD (chronic kidney disease), stage IV HLD (hyperlipidemia) HTN (hypertension) CAD (coronary artery disease) Medical History unable to obtain Allergy/AdvReac Type Severity Reaction Status Date / Time Unable to Assess Allergy Verified 02/12/25 18:59 Family History (Updated 02/12/25 @ 20:[address] Vandana Bro MD) Sister Heart disease Hypertension Daughter Heart disease Hypertension Family History unable to obtain Surgical History (Updated 02/12/25 @ 20:[address] Ayaz Hendrickson MD) Hx of coronary artery bypass graft S/P laminectomy Surgical History unable to obtain Social History (Updated 02/12/25 @ 20:[address] Vandana Bro MD) household members: spouse Smoking Status: Former smoker how long ago did patient quit smoking: Quit 1997. alcohol intake: current alcohol intake frequency: holidays/special occasions only substance use type: does not use ROS ROS ED ROS Narrative Shortness of breath. Limited due to the patient's current medical condition andextremis. Review of Systems ROS Unobtainable: due to encephalopathy and due to endotracheal tube Respiratory/Chest Respiratory/Chest: Reports dyspnea EXAM Physical Exam Narrative Exam Narrative: 74-year-old male presents pulse ox is 86% on nonrebreather mask at 15 L. He appears ill. He is extremely diaphoretic and pale. He is a limited informant. Brought in by squad. HEENT exam pupils round react light. Moist mucous membranes. Neck nontender no JVD. No lymphadenopathy. Lungs clear to auscul tation bilaterally but distant lung sounds. Heart rate about 80 no murmur. Chest wall nontender butdiaphoretic. No crepitus. Abdomen soft nontender, nondistended normal bowel sounds without peritoneal signs. Moving all 4 extremities. Diaphoretic. Calves are nontender no cords or edema. Neurologically he seems confused. He is try to answer questions he is moving all 4 extremities. The confusion may be from his hypoxia or encephalopathy. Const Vital Signs: 02/12/25 18:45 02/12/25 18:49 02/12/25 18:50 Temperature 97.5 F L 97.5 F L Temperature Source Axillary Core Pulse Rate 79 63 Respiratory Rate 35 H 24 H Respiratory Effort Short of Breath Labored Accessory Muscle Use Retracting Respiratory Depth Deep Respiratory Pattern Tachypnea Blood Pressure 159/100 H 160/101 H Blood Pressure Mean 119 120 Pulse Ox 86 99 Oxygen Delivery Method Non-Rebreather Mechanical Ventilator Non-Rebreather Oxygen Flow Rate (L/min) 15 Fraction of Inspired Oxygen (FIO2) 02/12/25 18:51 02/12/25 18:55 02/12/25 19:19 Temperature 97.5 F L Temperature Source Core Pulse Rate 64 Respiratory Rate 17 Respiratory Effort Short of Breath Labored Accessory Muscle Use Respiratory Depth Deep Respiratory Pattern Tachypnea Blood Pressure 109/50 L Blood Pressure Mean 69 Pulse Ox 97 100 100 Oxygen Delivery Method Ambu-Bag Mechanical Ventilator Mechanical Ventilator Oxygen Flow Rate (L/min) Fraction of Inspired Oxygen (FIO2) 02/12/25 19:30 02/12/25 19:42 02/12/25 20:00 Temperature 97.5 F L 97.4 F L 97.3 F L Temperature Source Core Oral Core Pulse Rate 63 62 60 Respiratory Rate 21 H 20 H 23 H Respiratory Effort Respiratory Depth Respiratory Pattern Blood Pressure 101/54 L 93/49 L 86/38 L Blood Pressure Mean 69 63 54 Pulse Ox 100 99 97 Oxygen Delivery Method Room Air Room Air Mechanical Ventilator Oxygen Flow Rate (L/min) Fraction of Inspired Oxygen (FIO2) 60 Positive well nourished and well developed; Negative for obese, cachectic or contractures General Appearance ED: well developed and pallor; Negative for cachectic, contractures or NAD Nutritional Appearance: Negative for cachectic or obese HEENT Reports moist mucous membranes atraumatic Eyes PERRL and EOMs intact bilaterally Neck no lymphadenopathy, supple, no meningeal signs and no JVD Resp No normal respiratory effort and clear to auscultation bilaterally Resp Narrative: Increased respiratory rate. Respiratory failure. Fatiguing. Cardio regular rate, regular rhythm, S1 normal heart sound, S2 normal heart sound and no murmurs GI non-tender, non-distended and no masses Palpation: soft; Negative for tender, guarding or rebound tenderness present Back/Spine no CVA tenderness and normal to inspection Extremity normal to inspection General Extremety ED: Negative for edema or tenderness General Extremity: Negative for edema Neuro Neuro Narrative: Confused. Encephalopathic. Sensorium / Orientation: alert and oriented to person Motor Exam: general weakness Psych mental status grossly normal Skin no wounds and skin turgor normal Skin Narrative: Diaphoretic and pale. General Skin Exam: pallor; Negative for jaundice MDM MDM MDM Narrative Medical decision making narrative: Patient presents hypoxic in respiratory distress and diaphoretic. He appeared to be tiring out and fatiguing. I did not think he would be able to tolerate BiPAP and would fatigue. So he emergently intubated him using succinylcholine 100 mg and etomidate 20. He has secretions in the posterior pharynx. Is able to pass a 7 and half ET tube on the first attempt. He bagged up from around 80%to mid 90s quickly. I did speak to the patient's when she arrived. She states that she been very healthy recently.He has not been sick at all. On Saturday or of this week he played a full 18 holes of golf. The next day he carried sfaactx25 pound bags of salt to the water softener today became acutely short of breath. She said he was diaphoretic and she called the squad. He typically gets [facility] care at the [facility]. He does have a history of diabetes, aortic stenosis and stage III or IV kidney disease. He sees a upper doubler here. She and I went over his test results why he was intubated and he will be admitted to the ICU. I spoken to our hospitalist. Patient's on a propofol drip. He has received Ativan to be placed on fentanyl for sedation. History & Record Review Discussion w/independent historian: Patient Lab Data Attestation: I reviewed the patient's lab results. Lab results narrative: CBC shows a white count 11.7. H&H 12.2 and 37. Platelets 181. PT/INR 14 and 1. PTT 30. Electrolytes show sodium 138. Gap 16. BUN and creatinine of 56 and 3.36. Glucose 224. Lactic acid 1.2. Liver enzymes show slightly elevated AST and ALT. Initial troponin elevated 146. BNP is elevated at 15,000. UA macro shows glucose otherwise no nitrates. ABG shows a pH of 7.16, pCO2 of 56 and pO2 217. 99% on the ventilator. Labs: Laboratory Results - last 24 hr 02/12/25 02/12/25 02/12/25 18:30 19:00 19:37 WBC 11.7 H RBC 4.08 L Hgb 12.2 L Hct 37.2 L MCV 91.2 MCH 29.9 MCHC 32.8 RDW Std Deviation 43.5 RDW Coeff of Samir 13.2 Plt Count 181 MPV 10.5 Immature Gran % (Auto) 0.600 Neut % (Auto) 70.0 Lymph % (Auto) 14.9 L [place] % (Auto) 11.4 H Eos % (Auto) 2.5 Baso % (Auto) 0.6 Absolute Neuts (auto) 8.2 H Absolute Lymphs (auto) 1.75 Nucleated RBC % 0 PT 14.2 INR 1.1 APTT 30.4 Sodium 138 Potassium 4.6 Chloride 104 Carbon Dioxide 18.1 L Anion Gap 16 H BUN 56 H Creatinine 3.36 H Estim Creat Clear Calc 19.61 L Est GFR (MDRD) Non-Af 18 L BUN/Creatinine Ratio 16.6 Glucose 224 H Lactic Acid 1.2 Calcium 9.1 Total Bilirubin 0.55 AST 71 H ALT 80 H Alkaline Phosphatase 126 Troponin T High Sens 146 H* [place] [address] H Total Protein 7.8 Albumin 4.5 Globulin 3.3 Albumin/Globulin Ratio 1.4 Urine Color Straw Urine Clarity Sl. Cloudy Urine pH 5.0 Ur Specific [place] 1.015 Urine Protein 100 H Urine Glucose (UA) 1000 H Urine Ketones Negative Urine Occult Blood 25 H Urine Nitrite Negative Urine Bilirubin Negative Urine Urobilinogen Normal Ur Leukocyte Esterase Negative Urine RBC 0-5 SEEN Urine WBC 0-5 SEEN Ur Squamous Epith Cells 0-5 SEEN Urine Bacteria 1+ Urine Mucus 0 SEEN ABG Data ABG results: ABG 02/12/25 02/12/25 19:28 19:37 Specimen Type ART ART Sample Site R Radial Not entered pH 7.17 L* 7.15 L* Bicarbonate Actual 20.5 L 21.0 L Total CO2 22 23 Base Excess -8 L -8 L O2 Saturation 100 H 100 H O2 % 100.0 ABG pCO2 56.8 H 60.7 H ABG pO2 217 H 230 H Lu Test N/A Respiration Rate 14 O2 Delivery Device Adult Vent Not entered Vent Mode AC Not entered Tidal Volume 450.0 POC PEEP 5 Crit Call To/Read Back Yes Yes Blood Gas Notified Whom Dr Hendrickson Blood Gas Notified Time 19:30:20 Radiography Chest X-Ray - ED: 1 View, Heart, Mediastinum, Bony Structures, Chronic Changes, CHF and - (Prior sternotomy. Sternal wires. Bilateral pulmonary edema.) Diagnostic Testing: Clinical Impression(s) from Imaging Studies Chest X-Ray 02/12/25 19:01 IMPRESSION: Mild pulmonary vascular congestion. No definite focal consolidation. Reading Location: [facility] Chest x-ray portable, single view, interpreted by myself shows prior CABG with sternotomy. ET tube in good position but was advanced 1 cm. Normal cardiac silhouette. Bilateral pulmonary edema consistent with CHF. OG in the stomach. Rhythm Strip Rhythm Strip: Sinus Rhythm Rate: 78 Ectopy: None EKG Initial EKG: Attestation: I personally reviewed and interpreted this EKG as follows: Interpretation: Sinus Rhythm and No Acute Injury Pattern Comments: Normal sinus rhythm rate 78 no acute signs of IL. Does have depressions in leads V4 and V5. Critical Care Time Critical Care Time: Yes Critical care time (excluding procedures): 30-74 minutes, Including time spent:,Discussing w/Patient &/or Family/Locomotive Boilermaker, Discussing w/Consultants, ArrangingAdmission or Transfer, Performing Direct Patient Care at Bedside and - (40 minutes) Discharge Plan Dx/Rx/DC Orders Clinical Impression: Respiratory failure, Endotracheally intubated, Congestive heart failure, Hx of coronary artery bypass graft, Chronic kidney disease, History of diabetes mellitus, History of aortic stenosis Disposition Disposition: Acute Care Hospital [facility] What to do if you have Problems For any increased pain, shortness of breath, bleeding, nausea or vomiting, chestpain, or any unexpected problems, contact your Primary Care Provider. Call [facility] ([phone]) or report tothe closest Emergency Room. Call 911 if necessary. 02/12/252019 Cosigner Signature (if applicable): CC: [facility] ~ Signed ADDENDUM by Dr. Ayaz Hendrickson MD on 02/12/25 at 2050 Procedure note: Endotracheal tube intubation. Respiratory distress. Patient treated with etomidate 20 mg IV. 100 mg of succinylcholine. 7.5 [place] ET tubewas passed on the first attempt. Bilateral breath sounds were heard. Good vapor in the ET tube. Pulse ox went from around 80 to mid 90s. 02/12/252050 Cosigner Signature (if applicable): cc: [facility] ~* Signed [facility]08-08-2025 Radiology Diagnostic study note [facility] Imaging Services [address] [address] Chest 1 View (Portable) MR#: [id number] Acct: [id number] Name: SAM VIDALES Efren Rep #: [id number] : 1950 M 74 From: Tylor Servin MD PCP: [facility] Status: REG ER Study:Chest 1 View (Portable) Date of Exam: 02/12/25 Exam# [id number] Ordering Dr: Trae Hendrickson MD PROCEDURE: CHEST 1 VIEW (PORTABLE) 02/12/2025 REASON FOR EXAM: HYPOXIA AND RESPIRATORY FAILURE TECHNIQUE: Frontal view of the chest. COMPARISON: None available. FINDINGS: Hardware: Sternotomy wires are present. Endotracheal and enteric tubes in appropriate positions. Heart: The heart size is normal. Lungs: There is mild pulmonary vascular congestion. No definite pneumothorax orsizable pleural effusion. Bones: The bones are unremarkable. Other: None. RAD/Chest 1 View (Portable) IMPRESSION: Mild pulmonary vascular congestion. No definite focal consolidation. Reading Location: [facility] CC: Dr. Ayaz Hendrickson MD; [facility] ~ [employer]lorobutadiene Scrubber Operator: Signed [facility]08-08-2025 Discharge summary Author Ayaz Hendrickson [facility] Note Date/Time February 12, 2025 8:5 1pm [facility] Medical Records Department [address] [place] [address] Emergency Department Summary 02/12/25 MR#: [id number] Acct: [id number] Name: SAM VIDALES Rep #:[id number] : 1950 74 From: Ayaz Hendrickson MD PCP: [facility] Status:ADM IN Location: ICU ICU01-1 HPI History of Present Illness Chief Complaint: Shortness of Breath Informant: patient and EMS Onset/Context/Timing Onset: Days Context: gradual Timing: Continuous Current Severity: Severe Maximum Severity: Severe Associated Symptoms Chest Pain: Positive for None Narrative Narrative: 74-year-old male history of diabetes and prior CABG in 2016. States he has not felt well for the last several days. He presents in respiratory distress and adarsh very limited informant. He was brought in by squad. On their arrival to homehis pulse ox was 80% on room air. Patient presents very diaphoretic and pale eminent respiratory failure he was intubated using etomidate and succinylcholineon the first attempt with a 7.5 F ET tube. Currently there is no family available when they arrive I will talk with them and get better history. PE Risk Factors: Negative for Cancer, OCP + Smoking + > 35, Prior DVT or PE, Recent immobilization, Recent surgery or Recent travel Prior similar symptoms: No Recent Illness/Hospitalization: No PFSH PFSH Medical History (Updated 02/12/25 @ 20:[address] Ayaz Hendrickson MD) Former tobacco use Valvular heart disease CKD (chronic kidney disease), stage IV HLD (hyperlipidemia) HTN (hypertension) CAD (coronary artery disease) Medical History unable to obtain Allergy/AdvReac Type Severity Reaction Status Date / Time Unable to Assess Allergy Verified 02/12/25 18:59 Family History (Updated 02/12/25 @ 20:[address] Vandana Bro MD) Sister Heart disease Hypertension Daughter Heart disease Hypertension Family History unable to obtain Surgical History (Updated 02/12/25 @ 20:[address] Ayaz Hendrickson MD) Hx of coronary artery bypass graft S/P laminectomy Surgical History unable to obtain Social History (Updated 02/12/25 @ 20:[address] Vandana Bro MD) household members: spouse Smoking Status: Former smoker how long ago did patient quit smoking: Quit 1997. alcohol intake: current alcohol intake frequency: holidays/special occasions only substance use type: does not use ROS ROS ED ROS Narrative Shortness of breath. Limited due to the patient's current medical condition andextremis. Review of Systems ROS Unobtainable: due to encephalopathy and due to endotracheal tube Respiratory/Chest Respiratory/Chest: Reports dyspnea EXAM Physical Exam Narrative Exam Narrative: 74-year-old male presents pulse ox is 86% on nonrebreather mask at 15 L. He appears ill. He is extremely diaphoretic and pale. He is a limited informant. Brought in by squad. HEENT exam pupils round react light. Moist mucous membranes. Neck nontender no JVD. No lymphadenopathy. Lungs clear to auscultation bilaterally but distant lung sounds. Heart rate about 80 no murmur. Chest wall nontender but diaphoretic. No crepitus. Abdomen soft nontender, nondistended normal bowel sounds without peritoneal signs. Moving all 4 extremities. Diaphoretic. Calves are nontender no cords or edema. Neurologically he seems confused. He is try to answer questions he is moving all 4 extremities. The confusion may be from his hypoxia or encephalopathy. Const Vital Signs: 02/12/25 18:45 02/12/25 18:49 02/12/25 18:50 Temperature 97.5 F L 97.5 F L Temperature Source Axillary Core Pulse Rate 79 63 Respiratory Rate 35 H 24 H Respiratory Effort Short of Breath Labored Accessory Muscle Use Retracting Respiratory Depth Deep Respiratory Pattern Tachypnea Blood Pressure 159/100 H 160/101 H Blood Pressure Mean 119 120 Pulse Ox 86 99 Oxygen Delivery Method Non-Rebreather Mechanical Ventilator Non-Rebreather Oxygen Flow Rate (L/min) 15 Fraction of Inspired Oxygen (FIO2) 02/12/25 18:51 02/12/25 18:55 02/12/25 19:19 Temperature 97.5 F L Temperature Source Core Pulse Rate 64 Respiratory Rate 17 Respiratory Effort Short of Breath Labored Accessory Muscle Use Respiratory Depth Deep Respiratory Pattern Tachypnea Blood Pressure 109/50 L Blood Pressure Mean 69 Pulse Ox 97 100 100 Oxygen Delivery Method Ambu-Bag Mechanical Ventilator Mechanical Ventilator Oxygen Flow Rate (L/min) Fraction of Inspired Oxygen (FIO2) 02/12/25 19:30 02/12/25 19:42 02/12/25 20:00 Temperature 97.5 F L 97.4 F L 97.3 F L Temperature Source Core Oral Core Pulse Rate 63 62 60 Respiratory Rate 21 H 20 H 23 H Respiratory Effort Respiratory Depth Respiratory Pattern Blood Pressure 101/54 L 93/49 L 86/38 L Blood Pressure Mean 69 63 54 Pulse Ox 100 99 97 Oxygen Delivery Method Room Air Room Air Mechanical Ventilator Oxygen Flow Rate (L/min) Fraction of Inspired Oxygen (FIO2) 60 Positive well nourished and well developed; Negative for obese, cachectic or contractures General Appearance ED: well developed and pallor; Negative for cachectic, contractures or NAD Nutritional Appearance: Negative for cachectic or obese HEENT Reports moist mucous membranes atraumatic Eyes PERRL and EOMs intact bilaterally Neck no lymphadenopathy, supple, no meningeal signs and no JVD Resp No normal respiratory effort and clear to auscultation bilaterally Resp Narrative: Increased respiratory rate. Respiratory failure. Fatiguing. Cardio regular rate, regular rhythm, S1 normal heart sound, S2 normal heart sound and no murmurs GI non-tender, non-distended and no masses Palpation: soft; Negative for tender, guarding or rebound tenderness present Back/Spine no CVA tenderness and normal to inspection Extremity normal to inspection General Extremety ED: Negative for edema or tenderness General Extremity: Negative for edema Neuro Neuro Narrative: Confused. Encephalopathic. Sensorium / Orientation: alert and oriented to person Motor Exam: general weakness Psych mental status grossly normal Skin no wounds and skin turgor normal Skin Narrative: Diaphoretic and pale. General Skin Exam: pallor; Negative for jaundice MDM MDM MDM Narrative Medical decision making narrative: Patient presents hypoxic in respiratory distress and diaphoretic. He appeared to be tiring out and fatiguing. I did not think he would be able to tolerate BiPAP and would fatigue. So he emergently intubated him using succinylcholine 100 mg and etomidate 20. He has secretions in the posterior pharynx. Is able to pass a 7 and half ET tube on the first attempt. He bagged up from around 80%to mid 90s quickly. I did speak to the patient's when she arrived. She states that she been very healthy recently. He has not been sick at all. On Saturday or of this week he played a full 18 holes of golf. The next day he carried pound bags of salt to the water softener today became acutely short of breath. She said he was diaphoretic and she called the squad. He typically gets [facility] care at the [facility]. He does have a history of diabetes, aortic stenosis and stage III or IV kidney disease. He sees a upper doubler here. She and I went over his test results why he was intubated and he will be admitted to the ICU. I spoken to our hospitalist. Patient's on a propofol drip. He has received Ativan to be placed on fentanyl for sedation. History & Record Review Discussion w/independent historian: Patient Lab Data Attestation: I reviewed the patient's lab results. Lab results narrative: CBC shows a white count 11.7. H&H 12.2 and 37. Platelets 181. PT/INR 14 and 1. PTT 30. Electrolytes show sodium 138. Gap 16. BUN and creatinine of 56 and 3.36. Glucose 224. Lactic acid 1.2. Liver enzymes show slightly elevated AST and ALT. Initial troponin elevated 146. BNP is elevated at 15,000. UA macro shows glucose otherwise no nitrates. ABG shows a pH of 7.16, pCO2 of 56 and pO2 217. 99% on the ventilator. Labs: Laboratory Results - last 24 hr 02/12/25 02/12/25 02/12/25 18:30 19:00 19:37 WBC 11.7 H RBC 4.08 L Hgb 12.2 L Hct 37.2 L MCV 91.2 MCH 29.9 MCHC 32.8 RDW Std Deviation 43.5 RDW Coeff of Samir 13.2 Plt Count 181 MPV 10.5 Immature Gran % (Auto) 0.600 Neut % (Auto) 70.0 Lymph % (Auto) 14.9 L [place] % (Auto) 11.4 H Eos % (Auto) 2.5 Baso % (Auto) 0.6 Absolute Neuts (auto) 8.2 H Absolute Lymphs (auto) 1.75 Nucleated RBC % 0 PT 14.2 INR 1.1 APTT 30.4 Sodium 138 Potassium 4.6 Chloride 104 Carbon Dioxide 18.1 L Anion Gap 16 H BUN 56 H Creatinine 3.36 H Estim Creat Clear Calc 19.61 L Est GFR (MDRD) Non-Af 18 L BUN/Creatinine Ratio 16.6 Glucose 224 H Lactic Acid 1.2 Calcium 9.1 Total Bilirubin 0.55 AST 71 H ALT 80 H Alkaline Phosphatase 126 Troponin T High Sens 146 H* [place] [address] H Total Protein 7.8 Albumin 4.5 Globulin 3.3 Albumin/Globulin Ratio 1.4 Urine Color Straw Urine Clarity Sl. Cloudy Urine pH 5.0 Ur Specific [place] 1.015 Urine Protein 100 H Urine Glucose (UA) 1000 H Urine Ketones Negative Urine Occult Blood 25 H Urine Nitrite Negative Urine Bilirubin Negative Urine Urobilinogen Normal Ur Leukocyte Esterase Negative Urine RBC 0-5 SEEN Urine WBC 0-5 SEEN Ur Squamous Epith Cells 0-5 SEEN Urine Bacteria 1+ Urine Mucus 0 SEEN ABG Data ABG results: ABG 02/12/25 02/12/25 19:28 19:37 Specimen Type ART ART Sample Site R Radial Not entered pH 7.17 L* 7.15 L* Bicarbonate Actual 20.5 L 21.0 L Total CO2 22 23 Base Excess -8 L -8 L O2 Saturation 100 H 100 H O2 % 100.0 ABG pCO2 56.8 H 60.7 H ABG pO2 217 H 230 H Lu Test N/A Respiration Rate 14 O2 Delivery Device Adult Vent Not entered Vent Mode AC Not entered Tidal Volume 450.0 POC PEEP 5 Crit Call To/Read Back Yes Yes Blood Gas Notified Whom Dr Hendrickson Blood Gas Notified Time 19:30:20 Radiography Chest X-Ray - ED: 1 View, Heart, Mediastinum, Bony Structures, Chronic Changes, CHF and - (Prior sternotomy. Sternal wires. Bilateral pulmonary edema.) Diagnostic Testing: Clinical Impression(s) from Imaging Studies Chest X-Ray 02/12/25 19:01 IMPRESSION: Mild pulmonary vascular congestion. No definite focal consolidation. Reading Location: [facility] Chest x-ray portable, single view, interpreted by myself shows prior CABG with sternotomy. ET tube in good position but was advanced 1 cm. Normal cardiac silhouette. Bilateral pulmonary edema consistent with CHF. OG in the stomach. Rhythm Strip Rhythm Strip: Sinus Rhythm Rate: 78 Ectopy: None EKG Initial EKG: Attestation: I personally reviewed and interpreted this EKG as follows: Interpretation: Sinus Rhythm and No Acute Injury Pattern Comments: Normal sinus rhythm rate 78 no acute signs of [place]. Does have depressions in leads V4 and V5. Critical Care Time Critical Care Time: Yes Critical care time (excluding procedures): 30-74 minutes, Including time spent:,Discussing w/Patient &/or Family/Locomotive Boilermaker, Discussing w/Consultants, ArrangingAdmission or Transfer, Performing Direct Patient Care at Bedside and - (40 minutes) Discharge Plan Dx/Rx/DC Orders Clinical Impression: Respiratory failure, Endotracheally intubated, Congestive heart failure, Hx of coronary artery bypass graft, Chronic kidney disease, History of diabetes mellitus, History of aortic stenosis Disposition Disposition: Acute Care Hospital [facility] What to do if you have Problems For any increased pain, shortness of breath, bleeding, nausea or vomiting, chestpain, or any unexpected problems, contact your Primary Care Provider. Call [facility] ([phone]) or report to the closest Emergency Room. Call 911 if necessary. 02/12/252019 <Electronically signed by Ayaz Hendrickson MD> Cosigner Signature (if applicable): CC: [facility] ~ Signed ADDENDUM by Dr. Ayaz Hendrickson MD on 02/12/25 at 2050 Procedure note: Endotracheal tube intubation. Respiratory distress. Patient treated with etomidate 20 mg IV. 100 mg of succinylcholine. 7.5 [place] ET tubewas passed on the first attempt. Bilateral breath sounds were heard. Good vapor in the ET tube. Pulse ox went from around 80 to mid 90s. 02/12/252050<Electronically signed by Ayaz Hendrickson MD> Cosigner Signature (if applicable): cc: [facility] ~* Signed [facility] Work Phone: [phone] 728-412402-16-2023 Miscellaneous Notes* Telephone Encounter - Lanie Thomas - 08/23/2022 3:33 PM EST Images from the original note were not included. Jess Baker MD You; Shara Bragg RN; Cheryl Payne PA-C; Caty Jordan MD 48 minutes ago (2:44 PM) I would cancel him and have him see his PCP for better blood sugar control * Telephone Encounter - Shara Bragg RN - 08/23/2022 1:31 PM EST Patient is scheduled for hernia repair tomorrow 08/24/2022. Patient had his PACC appointment yesterday and his HgbA1C is 9.0 and glucose 308. Please advise if ok to proceed. Shara Bragg RN PACC RN documented [facility]Children[facility] Miscellaneous Notes* Telephone Encounter - Cheryl Payne PA-C - 08/23/2022 2:00 PM EST If blood glucose is elevated pre-op his surgery potentially could be cancelled. OK to proceed as scheduled. * Telephone Encounter - Shara Bragg RN - 08/23/2022 12:51 PM EST Patient had his PACC appt yesterday for hernia surgery tomorrow. Patient's HgbA1C is 9.0 and is glucose was 308. Please advise if ok to proceed with surgery tomorrow. Thank you. Shara LANDEROS RN documented in this encounterChildren'[facility]02-15-2023 Miscellaneous Notes* Telephone Encounter - Kinza Corona LPN - 08/22/2022 4:14 PM EST Received last office visit and cardiac testing. Sent to [facility] through [employer]. Kinza Corona LPN * Telephone Encounter - Kinza Corona LPN - 08/22/2022 4:12 PM EST Called [facility] and requested last office visit and cardiac testing. Kinza Coorna LPN documented in this encounterChildren'S [facility]02-15-2023 History and physical note * Noam Rodriguez APRN.TOOTH CUTTER [employer]CH - 08/22/2022 11:00 AM EST Images from the original note were not included. HISTORY AND PHYSICAL EXAMINATION SERVICE DATE: 08/22/2022 SERVICE TIME: 11:29 AM PRIMARY CARE PHYSICIAN: Chandrika Arcos MD REASON FOR VISIT: Sam Vidales is a 72 year old male who is scheduled for Procedure(s): HERNIORRHAPHY UMBILICAL REDUCIBLE LESS THAN 3cm (N/A) at the request of Dr. Jess Baker for consultation. My final recommendation will be communicated back to the requesting physician by way ofshared medical record or letter. Subjective The patient has the following: ACTIVE PROBLEM LIST Type 2 diabetes mellitus with stage 3 chronic kidney disease, with long-term current use of insulin Bph Without Urinary Obstruction Chronic Pain of Left Knee Chronic Obstructive Pulmonary Disease With Acute Exacerbation (Hcc) Hyperlipidemia Hearing Loss Overweight (Bmi 25.0-29.9) Coronary Artery Disease Involving [place] Coronary Artery of [place] Heart Without Angina Pectoris Ckd (Chronic Kidney Disease) Stage 3, Gfr 30-59 Ml/Min (Hcc) Aortic Stenosis, Mild S/P Cabg X 4 Lumbar Spondylosis S/P Lumbar Laminectomy Incidental Durotomy Radiculopathy, Lumbar Region Gerd (Gastroesophageal Reflux Disease) Tati (Iron Deficiency Anemia) COVID-19 Immunization Status COVID-19 VACCINE (Series Information) Completed 06/06/2022 Imm Admin: COVID-19 booster vaccine, age 12+ yr, bivalent ([employer]) 01/26/2022 Imm Admin: COVID-19 original vaccine, age 12+ yr, monovalent (PFIZER- BIONTECH - GRAFF TOP) 04/22/2021 Outside Immunization: COVID-19 ([employer]), MRNA, LNP-S, PF, 30 MCG/0.3 ML DOSE Only the first 3 history entries have been loaded, but more history exists. CHIEF COMPLAINT: Pre-op exam HPI: Sam Vidales is a 72 year old seen for PAC due to scheduled above surgery because of an umbilical hernia. 04/05/2022, Dr. Baker HPI: The patient is a 71 year old male referred for endoscopy. Sam notes the following GI complaints: Sam denies abdominal pain.. Sam denies diarrhea. Sam notes constipation. Sam denies a change in bowel habits. Sam denies melena. Sam denies bright red blood per rectum. Sam denies hemorrhoids. He notes a bulge in his umbilical area which occasionally gets more distended when he is constipated. He wonders if this umbilical hernia is causing his constipation issues. The patient notes the following upper complaints: Sam denies abdominal pain.. Sam notes heartburn. Sam denies dysphagia. Sam denies a history of ulcers/ peptic ulcer disease. Sam has undergone prior endoscopy. He understands was approximately 6 years previously. I obtained a CT scan of the abdomen pelvis given his abdominal symptoms and to assess for other causes for his discomfort beyond his umbilical hernia and to assess for additional occult hernias. CT scan of the abdomen pelvis was obtained on February 23, 2022. This demonstrated: IMPRESSION: No acute finding. Fat-containing umbilical hernia RESULT: Abdomen / Pelvis: Liver: Unremarkable. Biliary: The gallbladder is unremarkable. Spleen: No splenomegaly. Pancreas: Unremarkable. Adrenals: No mass. Kidneys: No calculus, hydronephrosis or finding to suggest a cyst or mass in the unenhanced kidney. GI Tract: No bowel dilation. Normal appendix. No diverticulosis. Lymph Nodes: No lymphadenopathy. Mesentery/peritoneum: No ascites. Retroperitoneum: No mass. Vasculature: Arterial atherosclerotic disease without aneurysm. Pelvis: No mass or ascites. Bones/Soft Tissues: Mild to moderate compressive deformity of the L1 vertebral body, not significantly changed in comparison to previous radiograph. There is a fat-containing umbilical hernia measuring 2.4 x 2.7 x 1.5 cm. Lower thorax: Unremarkable. The patient was originally scheduled for his colonoscopy towards the end of April. 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 He would like to postpone his endoscopy till June or July. REVIEW OF SYSTEMS: General: No weight loss, malaise or fevers. Neurological: No history of TIA's, stroke, TREAD CUTTER tumor, impaired sensorium, hemiplegia, paraplegia orquadraplegia. No neurological symptoms or problems. Respiratory: +former smoker Positive for: asthma (childhood, hay fever). Negative for: pneumonia within 6 weeks, tobacco use, URI < 2 weeks and obstructive sleep apnea. Cardiovascular: Positive for: anticoagulation therapy (ASA), CAD, hyperlipidemia (on rx), hypertension, murmur/valvular heart disease (aortic stenosis) and open heart surgery Patient's last office visit with upper doubler, [facility], The following tests and/or procedures were not performed: cardiac stents. Negative for: arrhythmia, atrial fibrillation, chest pain, CHF, congenital heart defect, DVT/PE, recent IL and valve surgery. GI: See HPI. Positive for: GERD (on rx) Negative for: abdominal pain, dysphagia, hepatitis, irritable bowel syndrome, inflammatory bowel disease, liver disease, nausea, pancreatitis, vomiting and ETOH >2 drinks/day. : Positive for: BPH and renal failure. Patient's renal failure is chronic. Negative for: urinary incontinence, nephrolithiasis and urinary tract infection. Endocrine: Positive for: diabetes mellitus. Patient's diabetes mellitus is controlled by insulin and weekly injectable. Negative for: hypothyroidism. Hematology: Positive for: anemia, iron deficiency anemia (on rx) and chronic anti- coagulation/platelet meds. Patient is on anti-coagulation/platelet medication(s): Aspirin. Negative for: bruises/bleeds easily and transfusion of at least 4 units within 72 hours prior to surgery. Oncology: No history of CA metastasis, chemo within 30 days, or radiotherapy within 90 days. No history of oncological symptoms or problems. Psych: No history of psychiatric symptoms or problems. Musculoskeletal: Positive for: joint pain (left knee, chronic pain, receiving injection). Skin: Negative for lesions, rash and itching. PAST MEDICAL HISTORY Diagnosis Date Acute gastritis without mention of hemorrhage 09/04/2005 Anemia, unspecified Aortic stenosis, mild 02/09/2016 Arthritis Asthma Atherosclerosis of [place] coronary artery of [place] heart without angina pectoris 02/09/2016 Chronic airway obstruction, not elsewhere classified 09/15/2007 CKD (chronic kidney disease) stage 3, GFR 30-59 ml/min ([facility]) 02/09/2016 Hyperlipidemia Hypertension Hypertrophy of prostate without urinary obstruction and other lower urinary tract symptoms (LUTS) Personal history of noncompliance with medical treatment, presenting hazards to health S/P CABG x 4 08/06/2016 Type 2 diabetes mellitus with stage 3 chronic kidney disease, with long-term current use of insulin(HCC) Type II or unspecified type diabetes mellitus without mention of complication, not stated as uncontrolled Unspecified hemorrhoids without mention of complication Hemorrhoids PAST SURGICAL HISTORY Procedure Laterality Date BACK SURGERY HX CABG X (4) ARTERIAL GRAFTS 08/06/2016 COLONOSCOPY 07/24/2022 adenomatous polyp, repeat in 5 yrs COLONOSCOPY FLX DX W/COLLJ SPEC WHEN PFRMD 01/27/2004 Colonoscopy-repeat in COLONOSCOPY FLX DX W/COLLJ SPEC WHEN PFRMD 04/12/2016 Colonoscopy EGD 07/24/2022 EGD TRANSORAL BIOPSY SINGLE/MULTIPLE 09/04/2005 ESOPHAGOGASTRODUODENOSCOPY TRANSORAL DIAGNOSTIC 04/12/2016 EGD HEART SURGERY HX LEFT HEART CATH,PERCUTANEOUS 09/08/2015 Cardiac cath, L heart PAST SURGICAL HISTORY OF 10/12/2015 unsuccessful PCI attempt PAST SURGICAL HISTORY OF 2018 back surgery L4-L5 FAMILY HISTORY Problem Relation Age of Onset Heart Daughter LONG QT Heart Daughter LONG QT Allergies Daughter Allergies Mother Alzheimer's Disease Father Hypertension Father Coronary Artery Disease Father Social History Tobacco Use Smoking status: Former Years: 30.00 Types: Cigarettes Quit date: 07/08/1995 Years since quittin.1 Smokeless tobacco: Former Types: Chew Quit date: 2020 Tobacco comments: chewing Vaping Use Vaping Use: Never used Substance Use Topics Alcohol use: Yes Alcohol/week: 6.0 standard drinks Types: 6 Cans of Beer (12oz) per week Comment: occassional Drug use: No Prior to Admission medications as of 08/22/22 1046 Medication Sig Last Dose Taking omeprazole (PRILOSEC) 20 mg capsule Take 2 capsules by mouth once daily. Taking Yes isosorbide mononitrate ER (IMDUR) 30 mg 24 hr tablet Take 30 mg by mouth once daily. Taking Yes minoxidil (LONITEN) 2.5 mg tablet Take 5 mg by mouth once daily. Taking Yes chlorthalidone (HYGROTON) 25 mg tablet Take 25 mg by mouth once daily. Taking Yes ezetimibe (ZETIA) 10 mg tablet Take 10 mg by mouth once daily. Taking Yes semaglutide (OZEMPIC) 0.25 mg or 0.5 mg(2 mg/1.5 mL) pen injector INJECT 0.5MG SUBCUTANEOUSLY EVERYWEEK FOR DIABETES AND BLOOD SUGAR CONTROL. KEEP REFRIGERATED, HOWEVER, MAY BE KEPT AT ROOM TEMPERATURE FOR UP TO 56 DAYS REPLACES ALOGLIPTIN, GLIPIZIDE SA, AND NOVOLOG (ASPART INSULIN) Taking Yes ferrous sulfate 325 mg (65 mg iron) tablet q 24 HR. Taking Yes acetaminophen (TYLENOL) 325 mg tablet Take 2 tablets by mouth every 6 hours as needed for Pain or Fever. Taking Yes docusate sodium (COLACE) 100 mg capsule Take 1 capsule by mouth twice daily. Taking Yes senna (SENOKOT) 8.6 mg tab Take 2 tablets by mouth once daily as needed (Constipation). Taking Yes aspirin, enteric coated (ASPIRIN, ENTERIC COATED) 81 mg EC tablet Take 2 tablets by mouth once daily. Patient taking differently: Take 81 mg by mouth once daily. Taking Yes carvedilol (COREG) 25 mg tablet Take 25 mg by mouth twice daily with meals. Taking Yes insulin glargine (LANTUS U-100 INSULIN) 100 unit/mL injection Inject 22 Units subcutaneously daily at bedtime. [facility]. Taking Yes amLODIPine (NORVASC) 5 mg tablet Take 10 mg by mouth once daily. Taking Yes atorvastatin (LIPITOR) 20 mg tablet Take 40 mg by mouth daily at bedtime. [facility]. Taking Yes gabapentin (NEURONTIN) 300 mg capsule Take 2 capsules by mouth three times daily for 335 days. Medication Comments documented by Sarah Leal LPN on 02/22/2022 at 1404. Patient to call in medications to update ALLERGIES Allergen Reactions Environmental [Othe* Itching hayfever,sneezing,watery eyes Lisinopril Cough, Hives Objective PHYSICAL EXAM: General: alert and oriented (x3) and healthy appearance. Pertinent negatives noted - not distressed. Skin: normal color, no rash or lesions. HEENT: EOM intact and pupils equal round. Pertinent negatives noted - no carotid bruit. Cardiovascular: Pulse characterized as regular.Positive for murmur. Respiratory: normal breath sounds, no wheezes or crackles. No chest wall deformity or tenderness. Abdomen: soft. Pertinent negatives noted - not tender. Extremities: no deformity, no edema or tenderness, no joint swelling or clubbing. Neurological: normal cognition and motor skills. Gait normal. No weakness or sensory deficit. PAIN ASSESSMENT: VITALS: BP 102/70 Pulse 83 Temp (Src) 97.9 (Temporal) Ht 5' 9 (1.75m) Wt 182 lb (82.6kg) SpO2 96% BMI 26.86 kg/(m^2). Diagnostic tests reviewed for today's visit: Lab Value Units Date High Low HB No results within date range. HCT No results within date range. WBC No results within date range. PLT No results within date range. NA No results within date range. K [...] HCG, BODY* No results within date range. Lab Value Units Date High Low ABORHD No results within date range. ABSCREEN No results within date range. Hemoglobin A1C (%) Date Value 11/19/2017 8.1 07/30/2016 7.3 02/09/2016 7.8 12/06/2015 6.7 03/24/2004 6.5 HBA1C, [place] (%) Date Value 11/16/2010 7.0 08/11/2010 7.2 05/18/2010 8.0 01/20/2010 7.7 08/18/2009 7.5 No results found for this or any previous visit (from the past 8760 hour(s)). No results found for this or any previous visit (from the past 62368 hour(s)). Assessment Patient has the following medical conditions which may affect viktor-operative course: Type 2 diabetes mellitus with stage 3 chronic kidney disease, with long-term current use of insulin Assessment: IDDM, weekly injectable, new A1c pending Hemoglobin A1C (%) Date Value 11/19/2017 8.1 Coronary artery disease involving [place] coronary artery of [place] heart without angina pectoris Assessment: s/p CABG, c/w statin, ASA. Following [facility], last records requested, pt states follows with them every 6 mos usually Hyperlipidemia Assessment: c/w statin CKD (chronic kidney disease) stage 3, GFR 30-59 ml/min Assessment: Creatinine Date Value Ref Range Status 02/22/2022 2.21 (H) 0.73 - 1.22 mg/dL Final 12/04/2017 1.53 (H) 0.73 - 1.22 mg/dL Final 11/26/2017 1.61 (H) 0.73 - 1.22 mg/dL Final 08/11/2016 1.35 (H) 0.67 - 1.17 mg/dL Final Chronic obstructive pulmonary disease with acute exacerbation (HCC) Assessment: denies dx, former smoker off and on for 3 years, vague hx given BPH without urinary obstruction Assessment: denies any current issues or tx Aortic stenosis, mild Assessment: hx, cardiac records requested GERD (gastroesophageal reflux disease) Assessment: controlled on rx TATI (iron deficiency anemia) Assessment: on rx, new labs pending Hemoglobin (g/dL) Date Value 02/22/2022 11.8 12/04/2017 12.3 Hematocrit (%) Date Value 02/22/2022 34.6 12/04/2017 36.1 WBC (k/uL) Date Value 02/22/2022 8.94 12/04/2017 10.20 S/P lumbar laminectomy Assessment: hx Chronic pain of left knee Assessment: receiving injections Adams Activity Status Index: METS: Climb a flight of stairs or walk up a hill (5.50 METs) DASI Score: 5.5 Patient denies any chest pain or undue shortness of breath with the above physical activity. Clinical Frailty Scale: 3. Well, with treated comorbid disease STOP-Bang Score: Snores loudly Has or is being treated for high blood pressure Patient over 50 years old Male patient Denies feeling tired, fatigued, or sleepy during the daytime Has not been observed to stop breathing or choking/gasping during sleep BMI less than or equal to 35 kg/m^2 Does not have a large neck STOP-Bang Score: 4 [id number] Score: Age: 65-74 Sex: male CHF history: No Hypertension history: Yes Stroke/TIA/thromboembolism history: No Vascular disease history: Yes Diabetes history: Yes [id number] Score: 4 ARISCAT Score: Age: 51-80 Preoperative SpO2: >=96% Respiratory infection in the last month: No Preoperative anemia: Yes Surgical incision: upper abdominal Duration of surgery: <2 hrs Emergency procedure: No ARISCAT Score: 29 ASA Class: 3 ANESTHESIA FINDINGS: Intubation History: No history of difficult intubation Significant Anesthesia Considerations: none Airway History: No history of difficult airway I - PHYSICAL EVALUATION AIRWAY Patient intubated: No. Tracheostomy tube not present Mallampati: III. TM distance: >3 FB. Neck ROM: full ROM without neurological symptoms. Mouth opening: adequate. Short neck: no. Thick neck: no Walters present: yes Additional comments: +TMJ dysfunction. DENTAL Dental findings: teeth intact. Additional comments: +crowns/back. II - ANESTHESIA PLAN ASA Score: 3 Anesthetic Plan: other Anesthetic plan additional comments: *PACC/TCI - anesthesia choice. Beta [place] Monitoring Plan Post Procedure Analgesic Plan Informed Consent Anesthetic risks, benefits, alternatives, personnel and consent discussed: yes. Patient / Responsible [employer] Party agrees to proceed: yes Patient / Surrogate agrees to blood products: blood products not planned Prepared for Surgery: optimally prepared for surgery, pending [see comment]. labs CONSULTS: Patient does not require consults for optimization at this time Planned Anesthetic: other anesthesia choice The Following Tests/Procedures Have Been Initiated: Orders Placed This Encounter >CBC + AUTO DIFF Standing Status: Future Number of Occurrences: 1 Standing Expiration Date: 10/22/2022 >BMP Standing Status: Future Number of Occurrences: 1 Standing Expiration Date: 10/22/2022 >HGB A1c Standing Status: Future Number of Occurrences: 1 Standing Expiration Date: 10/22/2022 Instructions Given to Patient: Instructions located in the after visit summary. Patient given verbal and written preop instructions and voices comprehension and compliance. SIGNATURE: Noam Rodriguez APRN.CNP PATIENT NAME: Sam Vidales DATE: August 22, 2022 TIME: 11:00 AM PAGER/CONTACT #: documented in this encounterChildren[facility] Instructions* Patient Instructions* Noam Rodriguez APRN.CNP - 08/22/2022 11:00 AM EST PATIENT PREOPERATIVE INSTRUCTIONS Jess Baker MD has scheduled you for your procedure at this surgery center: [facility]: [phone] -- [address] [address]. Please read below carefully for your personalized instructions. Dietary Restrictions: - No solid food after midnight. - You may have 12 ounces of clear liquids (water, clear juices such as apple juice or gatorade, carbonated beverages, clear tea, black coffee, jello) until 2 hours before scheduled arrival at facility. No red/purple coloring and no creamer/sugar Medications: Unless instructed differently below, stay on all of your medications until your surgery. Approved medications to take the morning of surgery with a sip of water: amLODIPine (NORVASC), atorvastatin (LIPITOR), carvedilol, ezetimibe (ZETIA), ferrous sulfate, minoxidil (Loniten), gabapentin (NEURONTIN), isosorbide, omeprazole (PRILOSEC) Do not take Chlorthalidone the morning and/or evening prior surgery - No diabetic medication the morning of surgery. - Accucheck day of surgery. - Take full dose of insulin the day before surgery. - Take half dose of long acting insulin (Lantus, NPH) the day of surgery. If you take any medications for erectile dysfunction-Cialis (Tadalafil), Levitra, Staxyn (Vardenafil) Viagra (Sildenenafil please do not take these for 48 hours before surgery. If you start any new medications after today's visit, please contact the surgeon's office. Blood Thinning Medications: - Stop NSAIDS (Ibuprofen, Advil, Aleve, Motrin, Celebrex, Mobic, etc.) 7 days before surgery, as directed by your surgeon. - Stop Aspirin 7 days before surgery, as directed by your surgeon. - Stop Vitamin E, ALL multi-vitamins, herbals and dietary supplements 7 days before surgery. - You may take Tylenol (Acetaminophen) or any of your pain medications that do not contain aspirin or NSAIDS as needed. Important Reminders: - If you use CPAP/BIPAP, bring the machine with you to the surgery center. - If you are prescribed inhalers for breathing, continue using them. - Candy, mints, and tobacco products are NOT permitted the morning of surgery. - Hearing aids, dentures and glasses may be worn the morning of surgery. - NO jewelry, body piercings, makeup, hairpins or contacts are to be worn the day of surgery. If you develop symptoms such as a fever, cold, or flu, or have other changes to your health within TWO DAYS of scheduled surgery or the morning of surgery, please contact the surgery center above. Personal Belongings: -Please have photo ID and insurance cards. -If you do not have a copy of advance directives on file with us, please bring a copy with you on the day of surgery. - Leave ALL valuables and money at home or with family members. For Outpatient Procedures: - YOU MUST HAVE A RESPONSIBLE AERONAUTICAL PRODUCTS SALES ENGINEER TAKE YOU HOME. A TRADE SALES ASSISTANT OR COIL MACHINE SUPERVISOR CANNOT BE MADE A RESPONSIBLE AERONAUTICAL PRODUCTS SALES ENGINEER. - We recommend that a responsible person stays with you overnight to take care of you. - You cannot stay in a hotel alone after outpatient surgery. You will not be permitted to have yoursurgery, if you do not have someone to take care of you. Arrival Time for Surgery: - The Surgery Center or hospital where you are having surgery will call the afternoon before surgery (or Saturday for Saturday surgery) with a scheduled arrival time. - If you have not heard by 4 pm, please contact the surgery center above. Please be aware that emergency situations arise, which may delay or change your surgical time. If this happens, we will notify you as soon as possible and regret any inconvenience. If you already have an Advance Directive, please fax a copy to [phone] or email to for it to be added to your chart. If you do not have an Advance Directive, you can find the appropriate form and more information at [email or web address]. We recommend that youcomplete the Advance Directive form found on the website and bring it with you the day of your surgery. It can be witnessed and scanned into your chart that day. Noam Rodriguez APRN.CNP documented in this encounterChildren'S [facility]01-31-2023 NoteHNO ID: [id number] Author: Thao Kerr PA-C Service: ? Author Type: Physician Corporate Training Manager Type: Progress Notes Filed: 08/13/2022 9:47 PM Note Text: FOLLOW UP VISIT - ENDOSCOPY NAME: Sam [facility] (formerly [facility]3] NO.: [id number] DATE OF SERVICE: 08/07/2022 : 1950 REFERRING PHYSICIAN: Chandrika Arcos MD Sam is a patient I am following with Dr. Baker for anemia, acid reflux, constipation and umbilical hernia. Dr. Baker performed upper and lower endoscopy on 07/24/22. The patient was found to have duodenitis, gastritis and reflux esophagitis. Colonoscopy showed three polyps which were removed. Pathology demonstrated: FINAL DIAGNOSIS A. Stomach, antrum, biopsy: - Gastric antral mucosa with no diagnostic abnormality. B. Stomach, body, biopsy: - Gastric oxyntic mucosa with acute erosive gastropathy. - An immunohistochemical stain for Helicobacter pylori organisms has been ordered and will be reported in an addendum. C. Colon, ascending, polyp, biopsy: - Colonic mucosa with no diagnostic abnormality. D. Colon, transverse, polyp, biopsy: - Tubular adenoma. E. Rectum, polyp, biopsy: - Hyperplastic polyp. The patient notes no complaints since the procedure. Patient does also want to discuss umbilical hernia repair today. VITALS: There were no vitals taken for this visit. General: patient is alert, cooperative, pleasant and in no acute distress On examination, the abdomen is benign +umbilical hernia. Assessment IMPRESSION: s/p colonoscopy with polypectomy-adenomatous polyp PLAN: The operative findings and pathology report were reviewed with the patient, and the patient has had the opportunity to ask questions and have questions answered. If the patient notes any problems or changes in bowel function, the patient should contact me immediately. Otherwise I recommend follow up colonoscopy in 5 years. HM updated and recall letter generated. Follow up with PCP to ensure anemia resolving Patient verbalized understanding of all above and agreed with the plan Diagnoses: (D50.9) Iron deficiency anemia, unspecified iron deficiency anemia type (primary encounter diagnosis) (K29.70) Gastritis, presence of bleeding unspecified, unspecified chronicity, unspecified gastritis type (D12.6) Adenomatous polyp of colon, unspecified part of colon [facility]01-31-2023 NoteHNO ID: [id number] Author: Jess Baker MD Service: ? Author Type: Physician Type: Progress Notes Filed: 08/07/2022 6:59 PM Note Text: FOLLOW UP VISIT - ENDOSCOPY NAME: Sam [facility] ([facility]3] NO.: [id number] DATE OF SERVICE: 08/07/2022 : 1950 REFERRING PHYSICIAN: Chandrika Arcos MD Sam is a patient I am following for anemia. The patient was seen when he was a 71 year old male referred for endoscopy. Sam notes the following GI complaints: Sam denies abdominal pain.. Sam denies diarrhea. Sam notes constipation. Sam denies a change in bowel habits. Sam denies melena. Sam denies bright red blood per rectum. Sam denies hemorrhoids. He notes a bulge in his umbilical area which occasionally gets more distended when he is constipated. He wonders if this umbilical hernia is causing his constipation issues. The patient notes the following upper complaints: Sam denies abdominal pain.. Sam notes heartburn. Sam denies dysphagia. Sam denies a history of ulcers/ peptic ulcer disease. Sam has undergone prior endoscopy. He understands was approximately 6 years previously. I obtained a CT scan of the abdomen pelvis given his abdominal symptoms and to assess for other causes for his discomfort beyond his umbilical hernia and to assess for additional occult hernias. CT scan of the abdomen pelvis was obtained on February 23, 2022. This demonstrated: IMPRESSION: No acute finding. Fat-containing umbilical hernia RESULT: Abdomen / Pelvis: Liver: Unremarkable. Biliary: The gallbladder is unremarkable. Spleen: No splenomegaly. Pancreas: Unremarkable. Adrenals: No mass. Kidneys: No calculus, hydronephrosis or finding to suggest a cyst or mass in the unenhanced kidney. GI Tract: No bowel dilation. Normal appendix. No diverticulosis. Lymph Nodes: No lymphadenopathy. Mesentery/peritoneum: No ascites. Retroperitoneum: No mass. Vasculature: Arterial atherosclerotic disease without aneurysm. Pelvis: No mass or ascites. Bones/Soft Tissues: Mild to moderate compressive deformity of the L1 vertebral body, not significantly changed in comparison to previous radiograph. There is a fat-containing umbilical hernia measuring 2.4 x 2.7 x 1.5 cm. Lower thorax: Unremarkable. The patient was originally scheduled for his colonoscopy towards the end of April. 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 He would like to postpone his endoscopy till June or July. I performed upper and lower endoscopy on the 2022. The patient was found to have: Upper endoscopy Impression: - Normal examined jejunum. - Duodenitis. Biopsied. - Gastritis. Biopsied. - Mildly severe reflux esophagitis with no bleeding. Lower endoscopy Impression: - Three small polyps in the rectum, in the proximal transverse colon and in the ascending colon, removed with a cold biopsy forceps. Resected and retrieved. Clip (MR conditional) was placed. - The examination was otherwise normal on direct and retroflexion views. Pathology demonstrated: FINAL DIAGNOSIS A. Stomach, antrum, biopsy: - Gastric antral mucosa with no diagnostic abnormality. B. Stomach, body, biopsy: - Gastric oxyntic mucosa with acute erosive gastropathy. - An immunohistochemical stain for Helicobacter pylori organisms has been ordered and will be reported in an addendum. C. Colon, ascending, polyp, biopsy: - Colonic mucosa with no diagnostic abnormality. D. Colon, transverse, polyp, biopsy: - Tubular adenoma. E. Rectum, polyp, biopsy: - Hyperplastic polyp. He was started on Prilosec 40 mg twice a day. The patient notes no complaints since the procedure. He would like to have his umbilical hernia repaired. VITALS: There were no vitals taken for this visit. On examination, the abdomen is benign. He has a small primary umbilical hernia that is partially reducible. Assessment IMPRESSION: Adenomatous polyp, reactive gastropathy, umbilical hernia PLAN: If the patient notes any problems or changes in bowel function, the patient should contact me immediately. Otherwise I recommend follow up endoscopy as needed. You were found to have an adenomatous colon polyp. I recommend you undergo repeat endoscopy in 5 years. If you note bleeding, change in bowel habits, or other suspicious colon related symptoms before that time, those symptoms should be evaluated as necessary. If you have any difficulties or concerns, you should contact our office immediately. I plan to perform a simple umbilical hernia repair. The planned surgical procedure was discussed extensively with the patient. The risks, benefits and anticipated outcomes of the procedure, the risks and benefits of the alternatives to the procedure, and the roles and tasks of the personnel to be involved, were discussed with the patient. My staff has also explained (more content not included)...[facility]01-31-2023 History of Present illness Narrative* Thao Kerr PA-C - 08/07/2022 3:32 PM EST FOLLOW UP VISIT - ENDOSCOPY NAME: Sam [facility] ([facility]3] NO.: [id number] DATE OF SERVICE: 08/07/2022 : 1950 REFERRING PHYSICIAN: Chandrika Arcos MD Sam is a patient I am following with Dr. Baker for anemia, acid reflux, constipation and umbilical hernia. Dr. Baker performed upper and lower endoscopy on 07/24/22. The patient was found to have duodenitis, gastritis and reflux esophagitis. Colonoscopy showed three polyps which were removed.Pathology demonstrated: FINAL DIAGNOSIS A. Stomach, antrum, biopsy: - Gastric antral mucosa with no diagnostic abnormality. B. Stomach, body, biopsy: - Gastric oxyntic mucosa with acute erosive gastropathy. - An immunohistochemical stain for Helicobacter pylori organisms has been ordered and will be reported in an addendum. C. Colon, ascending, polyp, biopsy: - Colonic mucosa with no diagnostic abnormality. D. Colon, transverse, polyp, biopsy: - Tubular adenoma. E. Rectum, polyp, biopsy: - Hyperplastic polyp. The patient notes no complaints since the procedure. Patient does also want to discuss umbilical hernia repair today. VITALS: There were no vitals taken for this visit. General: patient is alert, cooperative, pleasant and in no acute distress On examination, the abdomen is benign +umbilical hernia. Assessment IMPRESSION: s/p colonoscopy with polypectomy-adenomatous polyp PLAN: The operative findings and pathology report were reviewed with the patient, and the patient has hadthe opportunity to ask questions and have questions answered. If the patient notes any problems or changes in bowel function, the patient should contact me immediately. Otherwise I recommend follow up colonoscopy in 5 years. HM updated and recall letter generated. Follow up with PCP to ensure anemia resolving Patient verbalized understanding of all above and agreed with the plan Diagnoses: (D50.9) Iron deficiency anemia, unspecified iron deficiency anemia type (primary encounter diagnosis) (K29.70) Gastritis, presence of bleeding unspecified, unspecified chronicity, unspecified gastritistype (D12.6) Adenomatous polyp of colon, unspecified part of colon Thao Kerr PA-C * Jess Baker MD - 08/07/2022 2:00 PM EST FOLLOW UP VISIT - ENDOSCOPY NAME: Sam [facility] (formerly [facility])[3] NO.: [id number] DATE OF SERVICE: 08/07/2022 : 1950 REFERRING PHYSICIAN: Chandrika Arcos MD Sam is a patient I am following for anemia. The patient was seen when he was a 71 year old male referred for endoscopy. Sam notes the following GI complaints: Sam denies abdominal pain.. Sam denies diarrhea. Sam notes constipation.Sam denies a change in bowel habits. Sam denies melena. Sam denies bright red blood per rectum. Sam denies hemorrhoids. He notes a bulge in his umbilical area which occasionally gets moredistended when he is constipated. He wonders if this umbilical hernia is causing his constipation issues. The patient notes the following upper complaints: Sam denies abdominal pain.. Sam notes heartburn. Sam denies dysphagia. Sam denies a history of ulcers/ peptic ulcer disease. Sam has undergone prior endoscopy. He understands was approximately 6 years previously. I obtained a CT scan of the abdomen pelvis given his abdominal symptoms and to assess for other causes for his discomfort beyond his umbilical hernia and to assess for additional occult hernias. CT scan of the abdomen pelvis was obtained on February 23, 2022. This demonstrated: IMPRESSION: No acute finding. Fat-containing umbilical hernia RESULT: Abdomen / Pelvis: Liver: Unremarkable. Biliary: The gallbladder is unremarkable. Spleen: No splenomegaly. Pancreas: Unremarkable. Adrenals: No mass. Kidneys: No calculus, hydronephrosis or finding to suggest a cyst or mass in the unenhanced kidney. GI Tract: No bowel dilation. Normal appendix. No diverticulosis. Lymph Nodes: No lymphadenopathy. Mesentery/peritoneum: No ascites. Retroperitoneum: No mass. Vasculature: Arterial atherosclerotic disease without aneurysm. Pelvis: No mass or ascites. Bones/Soft Tissues: Mild to moderate compressive deformity of the L1 vertebral body, not significantly changed in comparison to previous radiograph. There is a fat-containing umbilical hernia measuring 2.4 x 2.7 x 1.5 cm. Lower thorax: Unremarkable. The patient was originally scheduled for his colonoscopy towards the end of April. 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 He would like to postpone his endoscopy till June or July. I performed upper and lower endoscopy on the 2022. The patient was found to have: Upper endoscopy Impression: - Normal examined jejunum. - Duodenitis. Biopsied. - Gastritis. Biopsied. - Mildly severe reflux esophagitis with no bleeding. Lower endoscopy Impression: - Three small polyps in the rectum, in the proximal transverse colon and in the ascending colon, removed with a cold biopsy forceps. Resected and retrieved. Clip (MR conditional) was placed. - The examination was otherwise normal on direct and retroflexion views. Pathology demonstrated: FINAL DIAGNOSIS A. Stomach, antrum, biopsy: - Gastric antral mucosa with no diagnostic abnormality. B. Stomach, body, biopsy: - Gastric oxyntic mucosa with acute erosive gastropathy. - An immunohistochemical stain for Helicobacter pylori organisms has been ordered and will be reported in an addendum. C. Colon, ascending, polyp, biopsy: - Colonic mucosa with no diagnostic abnormality. D. Colon, transverse, polyp, biopsy: - Tubular adenoma. E. Rectum, polyp, biopsy: - Hyperplastic polyp. He was started on Prilosec 40 mg twice a day. The patient notes no complaints since the procedure. He would like to have his umbilical hernia repaired. VITALS: There were no vitals taken for this visit. On examination, the abdomen is benign. He has a small primary umbilical hernia that is partially reducible. Assessment IMPRESSION: Adenomatous polyp, reactive gastropathy, umbilical hernia PLAN: If the patient notes any problems or changes in bowel function, the patient should contact me immediately. Otherwise I recommend follow up endoscopy as needed. You were found to have an adenomatous colon polyp. I recommend you undergo repeat endoscopy in 5 years. If you note bleeding, change in bowel habits, or other suspicious colon related symptoms beforethat time, those symptoms should be evaluated as necessary. If you have any difficulties or concerns, you should contact our office immediately. I plan to perform a simple umbilical hernia repair. The planned surgical procedure was discussed extensively with the patient. The risks, benefits and anticipated outcomes of the procedure, the risksand benefits of the alternatives to the procedure, and the roles and tasks of the personnel to be involved, were discussed with the patient. My staff has also explained the procedure in understandable terms and the patient was given the option to take printed material concerning the planned procedure. The patient had the opportunity to ask questions concerning the planned procedure. The patient freely consents to the planned procedure. Anticipated Surgical Procedure/ CPT Code: umbilical hernia repair - 92282-707 - primary ventral hernia <3cm Anticipated Anesthetic: Choice Patient weight: Blood pressure 118/86, pulse 78, temperature 36.7 C (98.1 F), height 175.3 cm (5' 9), weight 83.3 kg (183 lb 9.6 oz), SpO2 97 %. BMI: Body mass index is 27.11 kg/m . 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 Jess Baker MD [facility] Note* Brielle Sinha RN - 07/24/2022 9:04 AM EST Pt received in PACU. Pt awake, slightly drowsy. Denies pain or nausea. Abd soft and non distended. Brielle Sinha RN [facility] History and physical note * Jess Baker MD - 07/24/2022 7:30 AM EST UPDATED PROCEDURAL SEDATION HISTORY AND PHYSICAL EXAMINATION SERVICE DATE: 07/24/2022 SERVICE TIME: 7:46 AM PHYSICAL EXAM MUST BE COMPLETED ON ADMISSION PROCEDURE: Procedure Indications: The History and Physical (completed in the past 30 days) has been reviewed and the patient has beenexamined. The contents accurately reflect the patient's condition with the following additions or revisions since the H&P was completed. ASA Class: ASA Class:: Patient with severe systemic disease Examination indicates no changes. AIRWAY: Airway Visualization of Uvula: Yes Mouth opening greater than 2 fingerbreadths: Yes Neck Full Range of Motion: Yes LUNGS: Lungs clear to auscultation CARDIAC: Regular rhythm,Regular rate Provisional Diagnosis/Treatment Plan: GERD, screening - mild anemia - Egd and Colonoscopy SEDATION GOAL: Moderate This H&P can be found in the attached. SIGNATURE: Jess Baker MD PATIENT NAME: Sam Vidales DATE: July 24, 2022 TIME: 7:46 AM Source Note - Jess Baker MD - 07/24/2022 7:30 AM EST Images from the original note were not included. HISTORY AND PHYSICAL Sam Vidales 1950 REFERRING PHYSICIAN: MD Allan CHIEF COMPLAINT: Consult (Hernia, constipation) HPI: The patient is a 71 year old male referred for endoscopy. Sam notes the following GI complaints: Sam denies abdominal pain.. Sam denies diarrhea. Sam notes constipation. Sam denies a change in bowel habits. Sam denies melena. Sam denies bright red blood per rectum. Sam denies hemorrhoids. He notes a bulge in his umbilical area which occasionally gets more distended when he is constipated. He wonders if this umbilical hernia is causing his constipation issues. The patient notes the following upper complaints: Sam denies abdominal pain.. Sam notes heartburn. Sam denies dysphagia. Sam denies a history of ulcers/ peptic ulcer disease. Sam has undergone prior endoscopy. He understands was approximately 6 years previously. I obtained a CT scan of the abdomen pelvis given his abdominal symptoms and to assess for other causes for his discomfort beyond his umbilical hernia and to assess for additional occult hernias. CT scan of the abdomen pelvis was obtained on February 23, 2022. This demonstrated: IMPRESSION: No acute finding. Fat-containing umbilical hernia RESULT: Abdomen / Pelvis: Liver: Unremarkable. Biliary: The gallbladder is unremarkable. Spleen: No splenomegaly. Pancreas: Unremarkable. Adrenals: No mass. Kidneys: No calculus, hydronephrosis or finding to suggest a cyst or mass in the unenhanced kidney. GI Tract: No bowel dilation. Normal appendix. No diverticulosis. Lymph Nodes: No lymphadenopathy. Mesentery/peritoneum: No ascites. Retroperitoneum: No mass. Vasculature: Arterial atherosclerotic disease without aneurysm. Pelvis: No mass or ascites. Bones/Soft Tissues: Mild to moderate compressive deformity of the L1 vertebral body, not significantly changed in comparison to previous radiograph. There is a fat-containing umbilical hernia measuring 2.4 x 2.7 x 1.5 cm. Lower thorax: Unremarkable. The patient was originally scheduled for his colonoscopy towards the end of April. 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 He would like to postpone his endoscopy till June or July. PAST MEDICAL HISTORY PAST MEDICAL HISTORY Diagnosis Date Acute gastritis without mention of hemorrhage 09/04/05 Anemia, unspecified Aortic stenosis, mild 02/09/2016 Atherosclerosis of [place] coronary artery of [place] heart without angina pectoris 02/09/2016 Chronic airway obstruction, not elsewhere classified 09/15/2007 CKD (chronic kidney disease) stage 3, GFR 30-59 ml/min ([facility]) 02/09/2016 Hyperlipidemia Hypertension Hypertrophy of prostate without urinary obstruction and other lower urinary tract symptoms (LUTS) Personal history of noncompliance with medical treatment, presenting hazards to health S/P CABG x 4 08/06/2016 Type 2 diabetes mellitus with stage 3 chronic kidney disease, with long-term current use of insulin([facility]) Type II or unspecified type diabetes mellitus without mention of complication, not stated as uncontrolled Unspecified hemorrhoids without mention of complication Hemorrhoids PAST SURGICAL HISTORY PAST SURGICAL HISTORY Procedure Laterality Date CABG X (4) ARTERIAL GRAFTS 08/06/2016 COLONOSCOPY FLX DX W/COLLJ SPEC WHEN PFRMD 01/27/2004 Colonoscopy-repeat in COLONOSCOPY FLX DX W/COLLJ SPEC WHEN PFRMD 04/12/2016 Colonoscopy EGD TRANSORAL BIOPSY SINGLE/MULTIPLE 09/04/2005 ESOPHAGOGASTRODUODENOSCOPY TRANSORAL DIAGNOSTIC 04/12/2016 EGD LEFT HEART CATH,PERCUTANEOUS 09/08/2015 Cardiac cath, L heart PAST SURGICAL HISTORY OF 10/12/2015 unsuccessful PCI attempt PAST SURGICAL HISTORY OF 2018 back surgery L4-L5 CURRENT MEDICATIONS Current Outpatient Medications Medication Sig isosorbide mononitrate ER (IMDUR) 30 mg 24 hr tablet Take 30 mg by mouth once daily. minoxidil (LONITEN) 2.5 mg tablet Take 5 mg by mouth once daily. chlorthalidone (HYGROTON) 25 mg tablet Take 25 mg by mouth once daily. ezetimibe (ZETIA) 10 mg tablet Take 10 mg by mouth once daily. semaglutide (OZEMPIC) 0.25 mg or 0.5 mg(2 mg/1.5 mL) pen injector INJECT 0.5MG SUBCUTANEOUSLY EVERYWEEK FOR DIABETES AND BLOOD SUGAR CONTROL. KEEP REFRIGERATED, HOWEVER, MAY BE KEPT AT ROOM TEMPERATURE FOR UP TO 56 DAYS REPLACES ALOGLIPTIN, GLIPIZIDE SA, AND NOVOLOG (ASPART INSULIN) meloxicam (MOBIC) 15 mg tablet Take 15 mg by mouth once daily. ferrous sulfate 325 mg (65 mg iron) tablet q 24 HR. metFORMIN (GLUCOPHAGE) 500 mg tablet Take 500 mg by mouth twice daily with meals. acetaminophen (TYLENOL) 325 mg tablet Take 2 tablets by mouth every 6 hours as needed for Pain or Fever. docusate sodium (COLACE) 100 mg capsule Take 1 capsule by mouth twice daily. senna (SENOKOT) 8.6 mg tab Take 2 tablets by mouth once daily as needed (Constipation). aspirin, enteric coated (ASPIRIN, ENTERIC COATED) 81 mg EC tablet Take 2 tablets by mouth once daily. (Patient taking differently: Take 81 mg by mouth once daily.) carvedilol (COREG) 25 mg tablet Take 25 mg by mouth twice daily with meals. insulin glargine (LANTUS U-100 INSULIN) 100 unit/mL injection Inject 22 Units subcutaneously daily at bedtime. [facility]. (Patient taking differently: Inject 35 Units subcutaneously daily at bedtime. [facility].) amLODIPine (NORVASC) 5 mg tablet Take 10 mg by mouth once daily. atorvastatin (LIPITOR) 20 mg tablet Take 40 mg by mouth daily at bedtime. [facility]. insulin aspart U-100 (NOVOLOG) 100 unit/mL (3 mL) 6 - 12 units as needed with a meal. [facility]. glipiZIDE (GLUCOTROL) 5 mg tablet Take 10 mg by mouth daily before dinner. [facility]. losartan (COZAAR) 100 mg tablet Take one tablet daily gabapentin (NEURONTIN) 300 mg capsule Take 2 capsules by mouth three times daily for 335 days. No current facility-administered medications for this visit. ALLERGIES: Environmental [Other] PERSONAL HISTORY: SOCIAL HISTORY Social History Tobacco Use Smoking status: Former Years: 30.00 Types: Cigarettes Quit date: 07/08/1995 Years since quittin.7 Smokeless tobacco: Former Types: Chew Quit date: 2020 Tobacco comments: chewing Vaping Use Vaping Use: Never used Substance Use Topics Alcohol use: Yes Alcohol/week: 6.0 standard drinks Types: 6 Cans of Beer (12oz) per week Comment: occassional Drug use: No FAMILY HISTORY: FAMILY HISTORY FAMILY HISTORY Problem Relation Age of Onset Heart Daughter LONG QT Heart Daughter LONG QT Allergies Daughter Allergies Mother Alzheimer's Disease Father Hypertension Father Coronary Artery Disease Father REVIEW OF SYMPTOMS: The review of systems data was entered by the nurse and reviewed by me There are no exam notes on file for this visit. PHYSICAL EXAMINATION: General: The patient is 71 year old male, well nourished, well hydrated in no acute distress. The patient is oriented to time, place, and person. VITALS: Blood pressure 142/82, pulse 85, temperature 37.1 C (98.7 F), height 175.3 cm (5' 9), weight 80.7 kg (178 lb), SpO2 98 %. Body mass index is 26.29 kg/m . HEENT: Normal cephalic, ataumatic, pupils are equally round, sclera are anicteric, mucous membranesare moist, oropharynx is clear. Neck has no masses, asymmetry or lymphadenopathy. Thyroid is unremarkable. Respiratory: Clear to auscultation and percussion. Normal respiratory excursion and pattern. Cardiac: Examination is regular rate and rhythm. Abdominal exam: Soft, nontender, with no palpable masses. No hepatosplenomegaly. A palpable and reducible umbilical hernia. No inguinal hernias. Rectal exam: exam deferred Extremities: no clubbing, cyanosis or edema. No adenopathy. Other: LABORATORY VALUES: As Noted RADIOLOGIC STUDIES: As Noted Assessment IMPRESSION: Reflux, constipation, umbilical hernia PLAN: I plan to perform upper and lower endoscopy. We discussed the risks and benefits of the planned endoscopy. I have informed the patient that complications can occur including failure to completethe endoscopy and perforation. The patient had the opportunity to ask questions concerning the planned endoscopy. My staff has also explained the procedure to the patient in understandable terms and has given the patient printed material concerning the procedure. The patient freely consents to surgery. I plan to use golytely bowel preparation for endoscopy. We will postpone this endoscopy until the time appropriate for the patient given the issues with his . We will then consider repair of his umbilical hernia following endoscopy. Diagnoses: (D50.9) Iron deficiency anemia, unspecified iron deficiency anemia type (primary encounter diagnosis) (K46.9) Abdominal hernia without obstruction and without gangrene, recurrence not specified, unspecified hernia type Return to Clinic: The patient is instructed to follow-up with me after endoscopy in June or July. Jess Baker MD * Jess Baker MD - 07/24/2022 7:30 AM EST Images from the original note were not included. HISTORY AND PHYSICAL Sam Vidales 1950 REFERRING PHYSICIAN: MD Allan CHIEF COMPLAINT: Consult (Hernia, constipation) HPI: The patient is a 71 year old male referred for endoscopy. Sam notes the following GI complaints: Sam denies abdominal pain.. Sam denies diarrhea. Sam notes constipation. Sam denies a change in bowel habits. Sam denies melena. Sam denies bright red blood per rectum. Sam denies hemorrhoids. He notes a bulge in his umbilical area which occasionally gets more distended when he is constipated. He wonders if this umbilical hernia is causing his constipation issues. The patient notes the following upper complaints: Sam denies abdominal pain.. Sam notes heartburn. Sam denies dysphagia. Sam denies a history of ulcers/ peptic ulcer disease. Sam has undergone prior endoscopy. He understands was approximately 6 years previously. I obtained a CT scan of the abdomen pelvis given his abdominal symptoms and to assess for other causes for his discomfort beyond his umbilical hernia and to assess for additional occult hernias. CT scan of the abdomen pelvis was obtained on February 23, 2022. This demonstrated: IMPRESSION: No acute finding. Fat-containing umbilical hernia RESULT: Abdomen / Pelvis: Liver: Unremarkable. Biliary: The gallbladder is unremarkable. Spleen: No splenomegaly. Pancreas: Unremarkable. Adrenals: No mass. Kidneys: No calculus, hydronephrosis or finding to suggest a cyst or mass in the unenhanced kidney. GI Tract: No bowel dilation. Normal appendix. No diverticulosis. Lymph Nodes: No lymphadenopathy. Mesentery/peritoneum: No ascites. Retroperitoneum: No mass. Vasculature: Arterial atherosclerotic disease without aneurysm. Pelvis: No mass or ascites. Bones/Soft Tissues: Mild to moderate compressive deformity of the L1 vertebral body, not significantly changed in comparison to previous radiograph. There is a fat-containing umbilical hernia measuring 2.4 x 2.7 x 1.5 cm. Lower thorax: Unremarkable. The patient was originally scheduled for his colonoscopy towards the end of April. 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 He would like to postpone his endoscopy till June or July. PAST MEDICAL HISTORY PAST MEDICAL HISTORY Diagnosis Date Acute gastritis without mention of hemorrhage 09/04/05 Anemia, unspecified Aortic stenosis, mild 02/09/2016 Atherosclerosis of [place] coronary artery of [place] heart without angina pectoris 02/09/2016 Chronic airway obstruction, not elsewhere classified 09/15/2007 CKD (chronic kidney disease) stage 3, GFR 30-59 ml/min ([facility]) 02/09/2016 Hyperlipidemia Hypertension Hypertrophy of prostate without urinary obstruction and other lower urinary tract symptoms (LUTS) Personal history of noncompliance with medical treatment, presenting hazards to health S/P CABG x 4 08/06/2016 Type 2 diabetes mellitus with stage 3 chronic kidney disease, with long-term current use of insulin([facility]) Type II or unspecified type diabetes mellitus without mention of complication, not stated as uncontrolled Unspecified hemorrhoids without mention of complication Hemorrhoids PAST SURGICAL HISTORY PAST SURGICAL HISTORY Procedure Laterality Date CABG X (4) ARTERIAL GRAFTS 08/06/2016 COLONOSCOPY FLX DX W/COLLJ SPEC WHEN PFRMD 01/27/2004 Colonoscopy-repeat in COLONOSCOPY FLX DX W/COLLJ SPEC WHEN PFRMD 04/12/2016 Colonoscopy EGD TRANSORAL BIOPSY SINGLE/MULTIPLE 09/04/2005 ESOPHAGOGASTRODUODENOSCOPY TRANSORAL DIAGNOSTIC 04/12/2016 EGD LEFT HEART CATH,PERCUTANEOUS 09/08/2015 Cardiac cath, L heart PAST SURGICAL HISTORY OF 10/12/2015 unsuccessful PCI attempt PAST SURGICAL HISTORY OF 2018 back surgery L4-L5 CURRENT MEDICATIONS Current Outpatient Medications Medication Sig isosorbide mononitrate ER (IMDUR) 30 mg 24 hr tablet Take 30 mg by mouth once daily. minoxidil (LONITEN) 2.5 mg tablet Take 5 mg by mouth once daily. chlorthalidone (HYGROTON) 25 mg tablet Take 25 mg by mouth once daily. ezetimibe (ZETIA) 10 mg tablet Take 10 mg by mouth once daily. semaglutide (OZEMPIC) 0.25 mg or 0.5 mg(2 mg/1.5 mL) pen injector INJECT 0.5MG SUBCUTANEOUSLY EVERYWEEK FOR DIABETES AND BLOOD SUGAR CONTROL. KEEP REFRIGERATED, HOWEVER, MAY BE KEPT AT ROOM TEMPERATURE FOR UP TO 56 DAYS REPLACES ALOGLIPTIN, GLIPIZIDE SA, AND NOVOLOG (ASPART INSULIN) meloxicam (MOBIC) 15 mg tablet Take 15 mg by mouth once daily. ferrous sulfate 325 mg (65 mg iron) tablet q 24 HR. metFORMIN (GLUCOPHAGE) 500 mg tablet Take 500 mg by mouth twice daily with meals. acetaminophen (TYLENOL) 325 mg tablet Take 2 tablets by mouth every 6 hours as needed for Pain or Fever. docusate sodium (COLACE) 100 mg capsule Take 1 capsule by mouth twice daily. senna (SENOKOT) 8.6 mg tab Take 2 tablets by mouth once daily as needed (Constipation). aspirin, enteric coated (ASPIRIN, ENTERIC COATED) 81 mg EC tablet Take 2 tablets by mouth once daily. (Patient taking differently: Take 81 mg by mouth once daily.) carvedilol (COREG) 25 mg tablet Take 25 mg by mouth twice daily with meals. insulin glargine (LANTUS U-100 INSULIN) 100 unit/mL injection Inject 22 Units subcutaneously daily at bedtime. [facility]. (Patient taking differently: Inject 35 Units subcutaneously daily at bedtime. [facility].) amLODIPine (NORVASC) 5 mg tablet Take 10 mg by mouth once daily. atorvastatin (LIPITOR) 20 mg tablet Take 40 mg by mouth daily at bedtime. [facility]. insulin aspart U-100 (NOVOLOG) 100 unit/mL (3 mL) 6 - 12 units as needed with a meal. [facility]. glipiZIDE (GLUCOTROL) 5 mg tablet Take 10 mg by mouth daily before dinner. [facility]. losartan (COZAAR) 100 mg tablet Take one tablet daily gabapentin (NEURONTIN) 300 mg capsule Take 2 capsules by mouth three times daily for 335 days. No current facility-administered medications for this visit. ALLERGIES: Environmental [Other] PERSONAL HISTORY: SOCIAL HISTORY Social History Tobacco Use Smoking status: Former Years: 30.00 Types: Cigarettes Quit date: 07/08/1995 Years since quittin.7 Smokeless tobacco: Former Types: Chew Quit date: 2020 Tobacco comments: chewing Vaping Use Vaping Use: Never used Substance Use Topics Alcohol use: Yes Alcohol/week: 6.0 standard drinks Types: 6 Cans of Beer (12oz) per week Comment: occassional Drug use: No FAMILY HISTORY: FAMILY HISTORY FAMILY HISTORY Problem Relation Age of Onset Heart Daughter LONG QT Heart Daughter LONG QT Allergies Daughter Allergies Mother Alzheimer's Disease Father Hypertension Father Coronary Artery Disease Father REVIEW OF SYMPTOMS: The review of systems data was entered by the nurse and reviewed by me There are no exam notes on file for this visit. PHYSICAL EXAMINATION: General: The patient is 71 year old male, well nourished, well hydrated in no acute distress. The patient is oriented to time, place, and person. VITALS: Blood pressure 142/82, pulse 85, temperature 37.1 C (98.7 F), height 175.3 cm (5' 9), weight 80.7 kg (178 lb), SpO2 98 %. Body mass index is 26.29 kg/m . HEENT: Normal cephalic, ataumatic, pupils are equally round, sclera are anicteric, mucous membranesare moist, oropharynx is clear. Neck has no masses, asymmetry or lymphadenopathy. Thyroid is unremarkable. Respiratory: Clear to auscultation and percussion. Normal respiratory excursion and pattern. Cardiac: Examination is regular rate and rhythm. Abdominal exam: Soft, nontender, with no palpable masses. No hepatosplenomegaly. A palpable and reducible umbilical hernia. No inguinal hernias. Rectal exam: exam deferred Extremities: no clubbing, cyanosis or edema. No adenopathy. Other: LABORATORY VALUES: As Noted RADIOLOGIC STUDIES: As Noted Assessment IMPRESSION: Reflux, constipation, umbilical hernia PLAN: I plan to perform upper and lower endoscopy. We discussed the risks and benefits of the planned endoscopy. I have informed the patient that complications can occur including failure to completethe endoscopy and perforation. The patient had the opportunity to ask questions concerning the planned endoscopy. My staff has also explained the procedure to the patient in understandable terms and has given the patient printed material concerning the procedure. The patient freely consents to surgery. I plan to use golytely bowel preparation for endoscopy. We will postpone this endoscopy until the time appropriate for the patient given the issues with his . We will then consider repair of his umbilical hernia following endoscopy. Diagnoses: (D50.9) Iron deficiency anemia, unspecified iron deficiency anemia type (primary encounter diagnosis) (K46.9) Abdominal hernia without obstruction and without gangrene, recurrence not specified, unspecified hernia type Return to Clinic: The patient is instructed to follow-up with me after endoscopy in June or July. Jess Baker MD documented [facility] this [facility] Miscellaneous Notes* Telephone Encounter - Ivania Garg LPN - 07/23/2022 12:55 PM EST Talk to patient, comfirmed that his colonoscopy prep is diabetic friendly. Advised patient to startgolytely now, to ensure proper prep. Pt stated understanding. Ivania Garg LPN * Telephone Encounter - Otilia Forte LPN - 07/23/2022 11:24 AM EST Patient called in stating he picked up prescription for colonoscopy prep from colonoscopy tomorrow 07/23/2022. Patient states he informed dr. Baker that he had issues taking prep last time not cleaning him out. Patient states he is having kidney issues. Please advise which prep to be taking and instruction that go along with it. Otilia Forte LPN documented in this encounterChildren[facility]09-29-2022 NoteHNO ID: [id number] Author: Jess Baker MD Service: ? Author Type: Physician Type: Progress Notes Filed: 04/05/2022 11:10 AM Note Text: HISTORY AND PHYSICAL Sam Vidales 1950 REFERRING PHYSICIAN: MD Allan CHIEF COMPLAINT: Consult (Hernia, constipation) HPI: The patient is a 71 year old male referred for endoscopy. Sam notes the following GI complaints: Sam denies abdominal pain.. Sam denies diarrhea. Sam notes constipation. Sam denies a change in bowel habits. Sam denies melena. Sam denies bright red blood per rectum. Sam denies hemorrhoids. He notes a bulge in his umbilical area which occasionally gets more distended when he is constipated. He wonders if this umbilical hernia is causing his constipation issues. The patient notes the following upper complaints: Sam denies abdominal pain.. Sam notes heartburn. Sam denies dysphagia. Sam denies a history of ulcers/ peptic ulcer disease. Sam has undergone prior endoscopy. He understands was approximately 6 years previously. I obtained a CT scan of the abdomen pelvis given his abdominal symptoms and to assess for other causes for his discomfort beyond his umbilical hernia and to assess for additional occult hernias. CT scan of the abdomen pelvis was obtained on February 23, 2022. This demonstrated: IMPRESSION: No acute finding. Fat-containing umbilical hernia RESULT: Abdomen / Pelvis: Liver: Unremarkable. Biliary: The gallbladder is unremarkable. Spleen: No splenomegaly. Pancreas: Unremarkable. Adrenals: No mass. Kidneys: No calculus, hydronephrosis or finding to suggest a cyst or mass in the unenhanced kidney. GI Tract: No bowel dilation. Normal appendix. No diverticulosis. Lymph Nodes: No lymphadenopathy. Mesentery/peritoneum: No ascites. Retroperitoneum: No mass. Vasculature: Arterial atherosclerotic disease without aneurysm. Pelvis: No mass or ascites. Bones/Soft Tissues: Mild to moderate compressive deformity of the L1 vertebral body, not significantly changed in comparison to previous radiograph. There is a fat-containing umbilical hernia measuring 2.4 x 2.7 x 1.5 cm. Lower thorax: Unremarkable. The patient was originally scheduled for his colonoscopy towards the end of April. 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 He would like to postpone his endoscopy till June or July. PAST MEDICAL HISTORY Diagnosis Date Acute gastritis without mention of hemorrhage 09/04/05 Anemia, unspecified Aortic stenosis, mild 02/09/2016 Atherosclerosis of [place] coronary artery of [place] heart without angina pectoris 02/09/2016 Chronic airway obstruction, not elsewhere classified 09/15/2007 CKD (chronic kidney disease) stage 3, GFR 30-59 ml/min ([facility]) 02/09/2016 Hyperlipidemia Hypertension Hypertrophy of prostate without urinary obstruction and other lower urinary tract symptoms (LUTS) Personal history of noncompliance with medical treatment, presenting hazards to health S/P CABG x 4 08/06/2016 Type 2 diabetes mellitus with stage 3 chronic kidney disease, with long-term current use of insulin (HCC) Type II or unspecified type diabetes mellitus without mention of complication, not stated as uncontrolled Unspecified hemorrhoids without mention of complication Hemorrhoids PAST SURGICAL HISTORY Procedure Laterality Date CABG X (4) ARTERIAL GRAFTS 08/06/2016 COLONOSCOPY FLX DX W/COLLJ SPEC WHEN PFRMD 01/27/2004 Colonoscopy-repeat in COLONOSCOPY FLX DX W/COLLJ SPEC WHEN PFRMD 04/12/2016 Colonoscopy EGD TRANSORAL BIOPSY SINGLE/MULTIPLE 09/04/2005 ESOPHAGOGASTRODUODENOSCOPY TRANSORAL DIAGNOSTIC 04/12/2016 EGD LEFT HEART CATH,PERCUTANEOUS 09/08/2015 Cardiac cath, L heart PAST SURGICAL HISTORY OF 10/12/2015 unsuccessful PCI attempt PAST SURGICAL HISTORY OF 2017 back surgery L4-L5 Current Outpatient Medications Medication Sig isosorbide mononitrate ER (IMDUR) 30 mg 24 hr tablet Take 30 mg by mouth once daily. minoxidil (LONITEN) 2.5 mg tablet Take 5 mg by mouth once daily. chlorthalidone (HYGROTON) 25 mg tablet Take 25 mg by mouth once daily. ezetimibe (ZETIA) 10 mg tablet Take 10 mg by mouth once daily. semaglutide (OZEMPIC) 0.25 mg or 0.5 mg(2 mg/1.5 mL) pen injector INJECT 0.5MG SUBCUTANEOUSLY EVERY WEEK FOR DIABETES AND BLOOD SUGAR CONTROL. KEEP REFRIGERATED, HOWEVER, MAY BE KEPT AT ROOM TEMPERATURE FOR UP TO 56 DAYS REPLACES ALOGLIPTIN, GLIPIZIDE SA, AND NOVOLOG (ASPART INSULIN) meloxicam (MOBIC) 15 mg tablet Take 15 mg by mouth once daily. ferrous sulfate 325 mg (65 mg iron) tablet q 24 HR. metFORMIN (GLUCOPHAGE) 500 mg tablet Take 500 mg by mouth twice daily with meals. acetaminophen (TYLENOL) 325 mg tablet Take 2 tablets by mouth every 6 hours as needed for Pain or Fever. docusate sodium (COLACE) 100 mg capsule Take 1 capsule by mouth twice daily. sen (more content not included)...[facility] [place]09-29-2022 History of Present illness Narrative* Jess Baker MD - 04/05/2022 10:36 AM EDT HISTORY AND PHYSICAL Sam Sobeida 1950 REFERRING PHYSICIAN: MD Allan CHIEF COMPLAINT: Consult (Hernia, constipation) HPI: The patient is a 71 year old male referred for endoscopy. Sam notes the following GI complaints: Sam denies abdominal pain.. Sam denies diarrhea. Sam notes constipation. Sam denies a change in bowel habits. Sam denies melena. Sam denies bright red blood per rectum. Sam denies hemorrhoids. He notes a bulge in his umbilical area which occasionally gets more distended when he is constipated. He wonders if this umbilical hernia is causing his constipation issues. The patient notes the following upper complaints: Sam denies abdominal pain.. Sam notes heartburn. Sam denies dysphagia. Sam denies a history of ulcers/ peptic ulcer disease. Sam has undergone prior endoscopy. He understands was approximately 6 years previously. I obtained a CT scan of the abdomen pelvis given his abdominal symptoms and to assess for other causes for his discomfort beyond his umbilical hernia and to assess for additional occult hernias. CT scan of the abdomen pelvis was obtained on February 23, 2022. This demonstrated: IMPRESSION: No acute finding. Fat-containing umbilical hernia RESULT: Abdomen / Pelvis: Liver: Unremarkable. Biliary: The gallbladder is unremarkable. Spleen: No splenomegaly. Pancreas: Unremarkable. Adrenals: No mass. Kidneys: No calculus, hydronephrosis or finding to suggest a cyst or mass in the unenhanced kidney. GI Tract: No bowel dilation. Normal appendix. No diverticulosis. Lymph Nodes: No lymphadenopathy. Mesentery/peritoneum: No ascites. Retroperitoneum: No mass. Vasculature: Arterial atherosclerotic disease without aneurysm. Pelvis: No mass or ascites. Bones/Soft Tissues: Mild to moderate compressive deformity of the L1 vertebral body, not significantly changed in comparison to previous radiograph. There is a fat-containing umbilical hernia measuring 2.4 x 2.7 x 1.5 cm. Lower thorax: Unremarkable. The patient was originally scheduled for his colonoscopy towards the end of April. 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 He would like to postpone his endoscopy till June or July. PAST MEDICAL HISTORY Diagnosis Date Acute gastritis without mention of hemorrhage 09/04/05 Anemia, unspecified Aortic stenosis, mild 02/09/2016 Atherosclerosis of [place] coronary artery of [place] heart without angina pectoris 02/09/2016 Chronic airway obstruction, not elsewhere classified 09/15/2007 CKD (chronic kidney disease) stage 3, GFR 30-59 ml/min ([facility]) 02/09/2016 Hyperlipidemia Hypertension Hypertrophy of prostate without urinary obstruction and other lower urinary tract symptoms (LUTS) Personal history of noncompliance with medical treatment, presenting hazards to health S/P CABG x 4 08/06/2016 Type 2 diabetes mellitus with stage 3 chronic kidney disease, with long-term current use of insulin(HCC) Type II or unspecified type diabetes mellitus without mention of complication, not stated as uncontrolled Unspecified hemorrhoids without mention of complication Hemorrhoids PAST SURGICAL HISTORY Procedure Laterality Date CABG X (4) ARTERIAL GRAFTS 08/06/2016 COLONOSCOPY FLX DX W/COLLJ SPEC WHEN PFRMD 01/27/2004 Colonoscopy-repeat in COLONOSCOPY FLX DX W/COLLJ SPEC WHEN PFRMD 04/12/2016 Colonoscopy EGD TRANSORAL BIOPSY SINGLE/MULTIPLE 09/04/2005 ESOPHAGOGASTRODUODENOSCOPY TRANSORAL DIAGNOSTIC 04/12/2016 EGD LEFT HEART CATH,PERCUTANEOUS 09/08/2015 Cardiac cath, L heart PAST SURGICAL HISTORY OF 10/12/2015 unsuccessful PCI attempt PAST SURGICAL HISTORY OF 2017 back surgery L4-L5 Current Outpatient Medications Medication Sig isosorbide mononitrate ER (IMDUR) 30 mg 24 hr tablet Take 30 mg by mouth once daily. minoxidil (LONITEN) 2.5 mg tablet Take 5 mg by mouth once daily. chlorthalidone (HYGROTON) 25 mg tablet Take 25 mg by mouth once daily. ezetimibe (ZETIA) 10 mg tablet Take 10 mg by mouth once daily. semaglutide (OZEMPIC) 0.25 mg or 0.5 mg(2 mg/1.5 mL) pen injector INJECT 0.5MG SUBCUTANEOUSLY EVERYWEEK FOR DIABETES AND BLOOD SUGAR CONTROL. KEEP REFRIGERATED, HOWEVER, MAY BE KEPT AT ROOM TEMPERATURE FOR UP TO 56 DAYS REPLACES ALOGLIPTIN, GLIPIZIDE SA, AND NOVOLOG (ASPART INSULIN) meloxicam (MOBIC) 15 mg tablet Take 15 mg by mouth once daily. ferrous sulfate 325 mg (65 mg iron) tablet q 24 HR. metFORMIN (GLUCOPHAGE) 500 mg tablet Take 500 mg by mouth twice daily with meals. acetaminophen (TYLENOL) 325 mg tablet Take 2 tablets by mouth every 6 hours as needed for Pain or Fever. docusate sodium (COLACE) 100 mg capsule Take 1 capsule by mouth twice daily. senna (SENOKOT) 8.6 mg tab Take 2 tablets by mouth once daily as needed (Constipation). aspirin, enteric coated (ASPIRIN, ENTERIC COATED) 81 mg EC tablet Take 2 tablets by mouth once daily. (Patient taking differently: Take 81 mg by mouth once daily.) carvedilol (COREG) 25 mg tablet Take 25 mg by mouth twice daily with meals. insulin glargine (LANTUS U-100 INSULIN) 100 unit/mL injection Inject 22 Units subcutaneously daily at bedtime. [facility]. (Patient taking differently: Inject 35 Units subcutaneously daily at bedtime. [facility].) amLODIPine (NORVASC) 5 mg tablet Take 10 mg by mouth once daily. atorvastatin (LIPITOR) 20 mg tablet Take 40 mg by mouth daily at bedtime. [facility]. insulin aspart U-100 (NOVOLOG) 100 unit/mL (3 mL) 6 - 12 units as needed with a meal. [facility]. glipiZIDE (GLUCOTROL) 5 mg tablet Take 10 mg by mouth daily before dinner. [facility]. losartan (COZAAR) 100 mg tablet Take one tablet daily gabapentin (NEURONTIN) 300 mg capsule Take 2 capsules by mouth three times daily for 335 days. No current facility-administered medications for this visit. ALLERGIES: Environmental [Other] PERSONAL HISTORY: Social History Tobacco Use Smoking status: Former Years: 30.00 Types: Cigarettes Quit date: 07/08/1995 Years since quittin.7 Smokeless tobacco: Former Types: Chew Quit date: 2020 Tobacco comments: chewing Vaping Use Vaping Use: Never used Substance Use Topics Alcohol use: Yes Alcohol/week: 6.0 standard drinks Types: 6 Cans of Beer (12oz) per week Comment: occassional Drug use: No FAMILY HISTORY: FAMILY HISTORY Problem Relation Age of Onset Heart Daughter LONG QT Heart Daughter LONG QT Allergies Daughter Allergies Mother Alzheimer's Disease Father Hypertension Father Coronary Artery Disease Father REVIEW OF SYMPTOMS: The review of systems data was entered by the nurse and reviewed by me There are no exam notes on file for this visit. PHYSICAL EXAMINATION: General: The patient is 71 year old male, well nourished, well hydrated in no acute distress. The patient is oriented to time, place, and person. VITALS: Blood pressure 142/82, pulse 85, temperature 37.1 C (98.7 F), height 175.3 cm (5' 9), weight 80.7 kg (178 lb), SpO2 98 %. Body mass index is 26.29 kg/m . HEENT: Normal cephalic, ataumatic, pupils are equally round, sclera are anicteric, mucous membranesare moist, oropharynx is clear. Neck has no masses, asymmetry or lymphadenopathy. Thyroid is unremarkable. Respiratory: Clear to auscultation and percussion. Normal respiratory excursion and pattern. Cardiac: Examination is regular rate and rhythm. Abdominal exam: Soft, nontender, with no palpable masses. No hepatosplenomegaly. A palpable and reducible umbilical hernia. No inguinal hernias. Rectal exam: exam deferred Extremities: no clubbing, cyanosis or edema. No adenopathy. Other: LABORATORY VALUES: As Noted RADIOLOGIC STUDIES: As Noted Assessment IMPRESSION: Reflux, constipation, umbilical hernia PLAN: I plan to perform upper and lower endoscopy. We discussed the risks and benefits of the planned endoscopy. I have informed the patient that complications can occur including failure to completethe endoscopy and perforation. The patient had the opportunity to ask questions concerning the planned endoscopy. My staff has also explained the procedure to the patient in understandable terms and has given the patient printed material concerning the procedure. The patient freely consents to surgery. I plan to use golytely bowel preparation for endoscopy. We will postpone this endoscopy until the time appropriate for the patient given the issues with his . We will then consider repair of his umbilical hernia following endoscopy. Diagnoses: (D50.9) Iron deficiency anemia, unspecified iron deficiency anemia type (primary encounter diagnosis) (K46.9) Abdominal hernia without obstruction and without gangrene, recurrence not specified, unspecified hernia type Return to Clinic: The patient is instructed to follow-up with me after endoscopy in June or July. Jess Baker MD documented in this encounterChildren[facility]09-08-2022 Miscellaneous Notes* Telephone Encounter - Yaritza Plummer - 03/15/2022 12:37 PM EDT Spoke with Patient and informed of results per Thao Kerr. Patient scheduled Follow up appointment with 04/05/2022. Denies any other need or concern at this time. * Telephone Encounter - Thao Kerr PA-C - 03/15/2022 12:00 PM EDT Can let him know CT scan showed a fat-containing umbilical hernia, otherwise no acute findings. Please have patient follow up with Dr. Baker when he returns to discuss further. * Telephone Encounter - Sarah Leal LPN - 03/15/2022 9:44 AM EDT Patient called asking for results from a CT scan that was done on 02/23/22, ordered by Dr Baker. Can you look at results. Thanks. Sarah Leal LPN documented in this encounterChildren'[facility]08-23-2022 NoteHNO ID: [id number] Author: Jess Baker MD Service: ? Author Type: Physician Type: Progress Notes Filed: 02/27/2022 6:27 PM Note Text: HISTORY AND PHYSICAL Sam Vidales 1950 REFERRING PHYSICIAN: MD Allan CHIEF COMPLAINT: Consult (Hernia, constipation) HPI: The patient is a 71 year old male referred for endoscopy. Sam notes the following GI complaints: Sam denies abdominal pain.. Sam denies diarrhea. Sam notes constipation. Sam denies a change in bowel habits. Sam denies melena. Sam denies bright red blood per rectum. Sam denies hemorrhoids. The patient notes the following upper complaints: Sam denies abdominal pain.. Sam notes heartburn. Sam denies dysphagia. Sam denies a history of ulcers/ peptic ulcer disease. Sam has undergone prior endoscopy. He understands was approximately 6 years previously. He also feels he has a hernia. I cannot truly appreciate a hernia. PAST MEDICAL HISTORY Diagnosis Date Acute gastritis without mention of hemorrhage 09/04/05 Anemia, unspecified Aortic stenosis, mild 02/09/2016 Atherosclerosis of [place] coronary artery of [place] heart without angina pectoris 02/09/2016 Chronic airway obstruction, not elsewhere classified 09/15/2007 CKD (chronic kidney disease) stage 3, GFR 30-59 ml/min ([facility]) 02/09/2016 Hyperlipidemia Hypertension Hypertrophy of prostate without urinary obstruction and other lower urinary tract symptoms (LUTS) Personal history of noncompliance with medical treatment, presenting hazards to health S/P CABG x 4 08/06/2016 Type 2 diabetes mellitus with stage 3 chronic kidney disease, with long-term current use of insulin ([facility]) Type II or unspecified type diabetes mellitus without mention of complication, not stated as uncontrolled Unspecified hemorrhoids without mention of complication Hemorrhoids PAST SURGICAL HISTORY Procedure Laterality Date CABG X (4) ARTERIAL GRAFTS 08/06/2016 COLONOSCOPY FLX DX W/COLLJ SPEC WHEN PFRMD 01/27/2004 Colonoscopy-repeat in COLONOSCOPY FLX DX W/COLLJ SPEC WHEN PFRMD 04/12/2016 Colonoscopy EGD TRANSORAL BIOPSY SINGLE/MULTIPLE 09/04/2005 ESOPHAGOGASTRODUODENOSCOPY TRANSORAL DIAGNOSTIC 04/12/2016 EGD LEFT HEART CATH,PERCUTANEOUS 09/08/2015 Cardiac cath, L heart PAST SURGICAL HISTORY OF 10/12/2015 unsuccessful PCI attempt PAST SURGICAL HISTORY OF 2017 back surgery L4-L5 Current Outpatient Medications Medication Sig isosorbide mononitrate ER (IMDUR) 30 mg 24 hr tablet Take 30 mg by mouth once daily. minoxidil (LONITEN) 2.5 mg tablet Take 5 mg by mouth once daily. chlorthalidone (HYGROTON) 25 mg tablet Take 25 mg by mouth once daily. ezetimibe (ZETIA) 10 mg tablet Take 10 mg by mouth once daily. semaglutide (OZEMPIC) 0.25 mg or 0.5 mg(2 mg/1.5 mL) pen injector INJECT 0.5MG SUBCUTANEOUSLY EVERY WEEK FOR DIABETES AND BLOOD SUGAR CONTROL. KEEP REFRIGERATED, HOWEVER, MAY BE KEPT AT ROOM TEMPERATURE FOR UP TO 56 DAYS REPLACES ALOGLIPTIN, GLIPIZIDE SA, AND NOVOLOG (ASPART INSULIN) ferrous sulfate 325 mg (65 mg iron) tablet q 24 HR. acetaminophen (TYLENOL) 325 mg tablet Take 2 tablets by mouth every 6 hours as needed for Pain or Fever. aspirin, enteric coated (ASPIRIN, ENTERIC COATED) 81 mg EC tablet Take 2 tablets by mouth once daily. (Patient taking differently: Take 81 mg by mouth once daily.) carvedilol (COREG) 25 mg tablet Take 25 mg by mouth twice daily with meals. insulin glargine (LANTUS U-100 INSULIN) 100 unit/mL injection Inject 22 Units subcutaneously daily at bedtime. [facility]. (Patient taking differently: Inject 35 Units subcutaneously daily at bedtime. [facility].) amLODIPine (NORVASC) 5 mg tablet Take 10 mg by mouth once daily. atorvastatin (LIPITOR) 20 mg tablet Take 40 mg by mouth daily at bedtime. [facility]. meloxicam (MOBIC) 15 mg tablet Take 15 mg by mouth once daily. (Patient not taking: Reported on 02/22/2022) metFORMIN (GLUCOPHAGE) 500 mg tablet Take 500 mg by mouth twice daily with meals. (Patient not taking: Reported on 02/22/2022) gabapentin (NEURONTIN) 300 mg capsule Take 2 capsules by mouth three times daily for 335 days. docusate sodium (COLACE) 100 mg capsule Take 1 capsule by mouth twice daily. (Patient not taking: Reported on 04/23/2019 ) senna (SENOKOT) 8.6 mg tab Take 2 tablets by mouth once daily as needed (Constipation). (Patient not taking: Reported on 04/23/2019 ) insulin aspart U-100 (NOVOLOG) 100 unit/mL (3 mL) 6 - 12 units as needed with a meal. [facility]. (Patient not taking: Reported on 02/23/2022) glipiZIDE (GLUCOTROL) 5 mg tablet Take 10 mg by mouth daily before dinner. [facility]. (Patient not taking: Reported on 02/22/2022) losartan (COZAAR) 100 mg tablet Take one tablet daily (Patient not taking: Reported on 02/22/2022) No current facility-administered medications for this visit. (more content not included)...[facility] [place]08-23-2022 History of Present illness Narrative* Jess Baker MD - 02/27/2022 6:21 PM EDT HISTORY AND PHYSICAL Sam Vidales 1950 REFERRING PHYSICIAN: MD Allan CHIEF COMPLAINT: Consult (Hernia, constipation) HPI: The patient is a 71 year old male referred for endoscopy. Sam notes the following GI complaints: Sam denies abdominal pain.. Sam denies diarrhea. Sam notes constipation. Sam denies a change in bowel habits. Sam denies melena. Sam denies bright red blood per rectum. Sam denies hemorrhoids. The patient notes the following upper complaints: Sam denies abdominal pain.. Sam notes heartburn. Sam denies dysphagia. Sam denies a history of ulcers/ peptic ulcer disease. Sam has undergone prior endoscopy. He understands was approximately 6 years previously. He also feels he has a hernia. I cannot truly appreciate a hernia. PAST MEDICAL HISTORY Diagnosis Date Acute gastritis without mention of hemorrhage 09/04/05 Anemia, unspecified Aortic stenosis, mild 02/09/2016 Atherosclerosis of [place] coronary artery of [place] heart without angina pectoris 02/09/2016 Chronic airway obstruction, not elsewhere classified 09/15/2007 CKD (chronic kidney disease) stage 3, GFR 30-59 ml/min ([facility]) 02/09/2016 Hyperlipidemia Hypertension Hypertrophy of prostate without urinary obstruction and other lower urinary tract symptoms (LUTS) Personal history of noncompliance with medical treatment, presenting hazards to health S/P CABG x 4 08/06/2016 Type 2 diabetes mellitus with stage 3 chronic kidney disease, with long-term current use of insulin([facility]) Type II or unspecified type diabetes mellitus without mention of complication, not stated as uncontrolled Unspecified hemorrhoids without mention of complication Hemorrhoids PAST SURGICAL HISTORY Procedure Laterality Date CABG X (4) ARTERIAL GRAFTS 08/06/2016 COLONOSCOPY FLX DX W/COLLJ SPEC WHEN PFRMD 01/27/2004 Colonoscopy-repeat in COLONOSCOPY FLX DX W/COLLJ SPEC WHEN PFRMD 04/12/2016 Colonoscopy EGD TRANSORAL BIOPSY SINGLE/MULTIPLE 09/04/2005 ESOPHAGOGASTRODUODENOSCOPY TRANSORAL DIAGNOSTIC 04/12/2016 EGD LEFT HEART CATH,PERCUTANEOUS 09/08/2015 Cardiac cath, L heart PAST SURGICAL HISTORY OF 10/12/2015 unsuccessful PCI attempt PAST SURGICAL HISTORY OF 2018 back surgery L4-L5 Current Outpatient Medications Medication Sig isosorbide mononitrate ER (IMDUR) 30 mg 24 hr tablet Take 30 mg by mouth once daily. minoxidil (LONITEN) 2.5 mg tablet Take 5 mg by mouth once daily. chlorthalidone (HYGROTON) 25 mg tablet Take 25 mg by mouth once daily. ezetimibe (ZETIA) 10 mg tablet Take 10 mg by mouth once daily. semaglutide (OZEMPIC) 0.25 mg or 0.5 mg(2 mg/1.5 mL) pen injector INJECT 0.5MG SUBCUTANEOUSLY EVERYWEEK FOR DIABETES AND BLOOD SUGAR CONTROL. KEEP REFRIGERATED, HOWEVER, MAY BE KEPT AT ROOM TEMPERATURE FOR UP TO 56 DAYS REPLACES ALOGLIPTIN, GLIPIZIDE SA, AND NOVOLOG (ASPART INSULIN) ferrous sulfate 325 mg (65 mg iron) tablet q 24 HR. acetaminophen (TYLENOL) 325 mg tablet Take 2 tablets by mouth every 6 hours as needed for Pain or Fever. aspirin, enteric coated (ASPIRIN, ENTERIC COATED) 81 mg EC tablet Take 2 tablets by mouth once daily. (Patient taking differently: Take 81 mg by mouth once daily.) carvedilol (COREG) 25 mg tablet Take 25 mg by mouth twice daily with meals. insulin glargine (LANTUS U-100 INSULIN) 100 unit/mL injection Inject 22 Units subcutaneously daily at bedtime. [facility]. (Patient taking differently: Inject 35 Units subcutaneously daily at bedtime. [facility].) amLODIPine (NORVASC) 5 mg tablet Take 10 mg by mouth once daily. atorvastatin (LIPITOR) 20 mg tablet Take 40 mg by mouth daily at bedtime. [facility]. meloxicam (MOBIC) 15 mg tablet Take 15 mg by mouth once daily. (Patient not taking: Reported on 02/22/2022) metFORMIN (GLUCOPHAGE) 500 mg tablet Take 500 mg by mouth twice daily with meals. (Patient not taking: Reported on 02/22/2022) gabapentin (NEURONTIN) 300 mg capsule Take 2 capsules by mouth three times daily for 335 days. docusate sodium (COLACE) 100 mg capsule Take 1 capsule by mouth twice daily. (Patient not taking: Reported on 04/23/2019 ) senna (SENOKOT) 8.6 mg tab Take 2 tablets by mouth once daily as needed (Constipation). (Patient not taking: Reported on 04/23/2019 ) insulin aspart U-100 (NOVOLOG) 100 unit/mL (3 mL) 6 - 12 units as needed with a meal. [facility]. (Patient not taking: Reported on 02/23/2022) glipiZIDE (GLUCOTROL) 5 mg tablet Take 10 mg by mouth daily before dinner. [facility].(Patient not taking: Reported on 02/22/2022) losartan (COZAAR) 100 mg tablet Take one tablet daily (Patient not taking: Reported on 02/22/2022) No current facility-administered medications for this visit. ALLERGIES: Environmental [Other] PERSONAL HISTORY: Social History Tobacco Use Smoking status: Former Years: 30.00 Types: Cigarettes Quit date: 07/08/1995 Years since quittin.6 Smokeless tobacco: Former Types: Chew Quit date: 2020 Tobacco comments: chewing Vaping Use Vaping Use: Never used Substance Use Topics Alcohol use: Yes Alcohol/week: 6.0 standard drinks Types: 6 Cans of Beer (12oz) per week Comment: occassional Drug use: No FAMILY HISTORY: FAMILY HISTORY Problem Relation Age of Onset Heart Daughter LONG QT Heart Daughter LONG QT Allergies Daughter Allergies Mother Alzheimer's Disease Father Hypertension Father Coronary Artery Disease Father REVIEW OF SYMPTOMS: The review of systems data was entered by the nurse and reviewed by me Nursing Notes: Sarah Leal LPN 02/22/2022 2:13 PM Signed REVIEW OF SYSTEMS: General: The patient notes fatigue, notes weight loss, denies weight gain, denies feeling hot, and denies feelings of cold. Eyes: The patient denies glaucoma, denies eye injury/surgery, wears glasses or contacts. Ear/Nose/Throat: The patient denies allergies, notes hayfever, denies ear infections, and denies bloody noses. Cardiovascular: The patient denies chest pain, notes heart disease, denies high blood pressure,denies cardiac stent, denies prior heart attack, denies irregular heart beat, denies high cholesterol, denies poor circulation, denies heart failure, other cardiac issues, denies claudication, denies coldfeet, denies peripheral arterial stent. Respiratory: The patient denies tuberculosis, denies pneumonia, denies frequent cough, denies pulmonary embolism, denies shortness of breath, and denies coughing up blood. Gastrointestinal: The patient denies difficulty swallowing, notes acid reflux, denies ulcers, denies vomiting, denies jaundice/hepatitis, denies gallbladder problems, denies black or tarry stools, denies hemorrhoids, denies bleeding from rectum, denies diverticulitis, notes constipation, denies diarrhea, denies loss of stool control, and notes hernias. Kidney/Bladder: The patient denies kidney stones, notes kidney failure, denies urine infections, and denies bloody urine. Skin: The patient denies a history of skin cancer, denies bleeding/changing moles, and denies a history of skin rash. Neurologic: The patient denies a history of epilepsy/convulsions, denies headaches, notes head/spinal injuries, and denies stroke/TIA. Psychiatric: The patient denies psychiatric medications, denies depression, and denies voices, denies substance abuse. Endocrine: The patient denies thyroid disorders, notes diabetes, and denies hormonal problems. Hematologic: The patient denies a history of bruising, denies bleeding, and denies anemia, denies blood clots. Infections: The patient denies a history of measles and mumps, denies rheumatic fever, and denies sexually transmitted diseases. Musculoskeletal: The patient denies back pain/injury, denies back problems, denies sciatica, deniesknee/foot trouble, notes arthritis, or denies gout. When was patient's last Mammogram screening? N/A Last Colonoscopy: 2015 Sarah Leal LPN PHYSICAL EXAMINATION: General: The patient is 71 year old male, well nourished, well hydrated in no acute distress. The patient is oriented to time, place, and person. VITALS: Blood pressure 128/74, pulse 79, temperature 36.9 C (98.4 F), height 175.3 cm (5' 9), weight 82.6 kg (182 lb), SpO2 97 %. Body mass index is 26.88 kg/m . HEENT: Normal cephalic, ataumatic, pupils are equally round, sclera are anicteric, mucous membranesare moist, oropharynx is clear. Neck has no masses, asymmetry or lymphadenopathy. Thyroid is unremarkable. Respiratory: Clear to auscultation and percussion. Normal respiratory excursion and pattern. Cardiac: Examination is regular rate and rhythm. Abdominal exam: Soft, nontender, with no palpable masses. No hepatosplenomegaly. No palpable hernias. Rectal exam: exam deferred Extremities: no clubbing, cyanosis or edema. No adenopathy. Other: LABORATORY VALUES: As Noted RADIOLOGIC STUDIES: As Noted Assessment IMPRESSION: Reflux, constipation, questionable hernia PLAN: I plan to perform upper and lower endoscopy. We discussed the risks and benefits of the planned endoscopy. I have informed the patient that complications can occur including failure to completethe endoscopy and perforation. The patient had the opportunity to ask questions concerning the planned endoscopy. My staff has also explained the procedure to the patient in understandable terms and has given the patient printed material concerning the procedure. The patient freely consents to surgery. I plan to use golytely bowel preparation for endoscopy Plan plan a CT scan of the abdomen pelvis for assess for occult hernias. Diagnoses: (K21.9) Gastroesophageal reflux disease, unspecified whether esophagitis present (primary encounter diagnosis) (D50.9) Iron deficiency anemia, unspecified iron deficiency anemia type (K46.9) Abdominal hernia without obstruction and without gangrene, recurrence not specified, unspecified hernia type Return to Clinic: The patient is instructed to follow-up with me after the testing has been completed. Jess Baker MD documented in this encounterChildren[facility] NoteHNO ID: [id number] Author: RT Rodri(Farnaz) Service: ? Author Type: Marble Ceiling Installer Type: Progress Notes Filed: 02/23/2022 10:58 AM Note Text: Radiology Service Progress Note PATIENT NAME: Sam Vidales DATE OF SERVICE: February 23, 2022 TIME: 10:58 AM PATIENT IDENTITY VERIFICATION COMPLETED USING TWO (2) IDENTIFIERS: Name and Date of confirmed by patient verbally. FALL SCREENING: Has the patient had 2 falls in the last year or 1 fall with injury or currently using an Ambulatory Assistive Device (Walker, Cane, Wheelchair, Crutches, etc.)? No PATIENT GENDER DATA: Male PATIENT RELEVANT IMPLANT DATA REVIEWED: Yes RADIOLOGY DEPARTMENT: CT; Exam(s) Completed: Abdomen/Pelvis PERIPHERAL IV DATA: Not applicable SIGNED BY: RT Omer(R) February 23, 2022 10:58 [facility]08[facility]19[facility] History of Present illness Narrative* LEONA MaceR) - 02/23/2022 9:20 AM EDT Radiology Service Progress Note PATIENT NAME: Sam Vidales DATE OF SERVICE: February 23, 2022 TIME: 10:58 AM PATIENT IDENTITY VERIFICATION COMPLETED USING TWO (2) IDENTIFIERS: Name and Date of confirmedby patient verbally. FALL SCREENING: Has the patient had 2 falls in the last year or 1 fall with injury or currently using an Ambulatory Assistive Device (Walker, Cane, Wheelchair, Crutches, etc.)? No PATIENT GENDER DATA: Male PATIENT RELEVANT IMPLANT DATA REVIEWED: Yes RADIOLOGY DEPARTMENT: CT; Exam(s) Completed: Abdomen/Pelvis PERIPHERAL IV DATA: Not applicable SIGNED BY: RT Omer(R) February 23, 2022 10:58 AM documented in this encounterChildren[facility]22 Nurse Note* Sarah Leal LPN - 02/22/2022 2:05 PM EDT REVIEW OF SYSTEMS: General: The patient notes fatigue, notes weight loss, denies weight gain, denies feeling hot, and denies feelings of cold. Eyes: The patient denies glaucoma, denies eye injury/surgery, wears glasses or contacts. Ear/Nose/Throat: The patient denies allergies, notes hayfever, denies ear infections, and denies bloody noses. Cardiovascular: The patient denies chest pain, notes heart disease, denies high blood pressure,denies cardiac stent, denies prior heart attack, denies irregular heart beat, denies high cholesterol, denies poor circulation, denies heart failure, other cardiac issues, denies claudication, denies coldfeet, denies peripheral arterial stent. Respiratory: The patient denies tuberculosis, denies pneumonia, denies frequent cough, denies pulmonary embolism, denies shortness of breath, and denies coughing up blood. Gastrointestinal: The patient denies difficulty swallowing, notes acid reflux, denies ulcers, denies vomiting, denies jaundice/hepatitis, denies gallbladder problems, denies black or tarry stools, denies hemorrhoids, denies bleeding from rectum, denies diverticulitis, notes constipation, denies diarrhea, denies loss of stool control, and notes hernias. Kidney/Bladder: The patient denies kidney stones, notes kidney failure, denies urine infections, and denies bloody urine. Skin: The patient denies a history of skin cancer, denies bleeding/changing moles, and denies a history of skin rash. Neurologic: The patient denies a history of epilepsy/convulsions, denies headaches, notes head/spinal injuries, and denies stroke/TIA. Psychiatric: The patient denies psychiatric medications, denies depression, and denies voices, denies substance abuse. Endocrine: The patient denies thyroid disorders, notes diabetes, and denies hormonal problems. Hematologic: The patient denies a history of bruising, denies bleeding, and denies anemia, denies blood clots. Infections: The patient denies a history of measles and mumps, denies rheumatic fever, and denies sexually transmitted diseases. Musculoskeletal: The patient denies back pain/injury, denies back problems, denies sciatica, deniesknee/foot trouble, notes arthritis, or denies gout. When was patient's last Mammogram screening? N/A Last Colonoscopy: 2015 Sarah Leal LPN documented in this encounterChildren[facility]08-[facility]22 Instructions* Patient Instructions* Jess Baker MD - 02/22/2022 1:52 PM EDT Images from the original note were not included. Bowel Preparation Instructions for: Golytely, Nulytely, Trilyte or Colyte (polyethylene glycol 3350and electrolytes) IF YOU DO NOT FOLLOW THESE DIRECTIONS, YOUR COLONOSCOPY WILL BE CANCELLED. Minor Instructions: Your bowel must be empty so that your doctor can clearly view your colon. Follow all of the instructions in this handout EXACTLY as they are written. Do NOT eat any solid food the ENTIRE day before your colonoscopy. Drink only clear liquids. Buy your bowel preparation at least 5 days before your colonoscopy. TRANSPORTATION on the Day of Your Exam A responsible person MUST be present with you at Check In prior to your colonoscopy and REMAIN in the endoscopy area until you are discharged. You are NOT ALLOWED to drive, take a taxi or bus, or leave the Endoscopy Center ALONE. If you do not have a responsible charter driver (family member or friend) with you to take you home, your exam cannot be done with sedation and will be cancelled. Please bring a list of all of your current medications, including any Over-the Counter medications with you. Medications If you take insulin, diabetic medications or blood thinners such as Coumadin (warfarin), Plavix (clopidogrel), Ticlid (ticlopidine hydrochloride), Agrylin (anagrelide), Xarelto (Rivaroxaban), Pradaxa(Dabigatran), Eliquis (Apixaban), and Effient (Prasugrel). You MUST call the doctors who orders those medicines for instructions on altering the dosage before your colonoscopy. All other medications should be taken the day of the exam with a sip of water including ASPIRIN. Five (5) Days Before Your Colonoscopy Do NOT take medicines that stop diarrhea - such as Imodium, Kaopectate, or Pepto Bismol. Do NOT take fiber supplements - such as Metamucil, Citrucel, or Perdiem. Do NOT take products that contain iron - such as multi-vitamins (the label lists what is in the products). Do NOT take Vitamin E. Buy the prescription bowel preparation solution at your local pharmacy or drugstore pharmacy. 06/2019 Bowel Preparation Instructions for: Golytely, Nulytely, Trilyte or Colyte (polyethylene glycol 3350and electrolytes) Three (3) Days Before Your Colonoscopy Do NOT eat high-fiber foods - such as popcorn, beans, seeds (flax, sunflower, quinoa), multigrain bread, nuts, salad/vegetables, or fresh and dried fruit. One (1) Day Before Your Colonoscopy Only drink clear liquids the ENTIRE DAY before your colonoscopy. Do NOT eat any solid foods. Drink at least 8 ounces of clear liquids every hour after waking up. The clear liquids you can drink include: Clear Liquid (NO RED LIQUIDS) DO NOT DRINK Gatorade, Pedialyte or Powerade Clear broth or bouillon Coffee or tea (no milk or non-dairy creamer) Carbonated and non-carbonated soft drinks Castro-Aid or other fruit flavored drinks Strained fruit juices (no pulp) Jell-O, popsicles, hard candy Water Alcohol Milk or non-dairy creamers Noodles or vegetables in soup Juice with pulp Liquid you cannot see through Do not use tobacco/vaping products The bowel preparation solution will be consumed in two parts. Mix the solution the evening before your colonoscopy and refrigerate before drinking. You may add the flavor pack that came with the bowel preparation. Do NOT add ice, sugar or any other flavorings to the solution. Part 1 At 6:00 PM - - 2 Evenings before your colonoscopy Drink an 8-oz glass of bowel preparation every 10 minutes half the jug Part 2 At 6:00 PM - Evening before your colonoscopy Drink an 8-oz glass of bowel preparation every 10 minutes second half of jug You may continue to drink clear liquids until midnight. 2 06/2019 documented in this encounterChildren[facility]30-[facility] History of Past illness Narrative* Problem Noted Date Resolved Date Acute postoperative pain 12/04/2017 018 Overview: -PT eval. -Out of bed to chair for meals. -Ambulate pt 3-4 x daily as able. -Monitor: signs, symptoms, disease progression, disease regression. -Evaluate: test results, medication effectiveness, response to treatment. -Pain control: analgesics titrated per consultation with Dr. Jess Dick -Plan discussed with Dr. Jess Dick -DC planning. Lumbar stenosis with neurogenic claudication 01/23/2018 Colon cancer screening 04/12/2016 6 Undiagnosed cardiac murmurs 03/02/2013 0810/2015 Labyrinthitis, unspecified 08/05/200602/08 PAIN JOINT, KNEE 10/03/2005 02/09/2016 Acute gastritis without mention of hemorrhage 02/09/2016 Other and unspecified hyperlipidemia 01/27/2010 Unspecified hemorrhoids without mention of compl ication 02/09/2016 Overview: Hemorrhoids Anemia, unspecified 02/09/2016 documented as of this encounter (statuses as of 02/24/2022) [facility] of Past illness Narrative* Problem Noted Date Resolved Date Acute postoperative pain 12/04/2017 018 Overview: -PT eval. -Out of bed to chair for meals. -Ambulate pt 3-4 x daily as able. -Monitor: signs, symptoms, disease progression, disease regression. -Evaluate: test results, medication effectiveness, response to treatment. -Pain control: analgesics titrated per consultation with Dr. Jess Dick -Plan discussed with Dr. Jess HUGHES planning. Lumbar stenosis with neurogenic claudication 01/23/2018 Colon cancer screening 04/12/2016 6 Undiagnosed cardiac murmurs 03/02/2013 080 10/2015 Labyrinthitis, unspecified 08/05/200602/08 PAIN JOINT, KNEE 10/03/2005 02/09/2016 Acute gastritis without mention of hemorrhage 02/09/2016 Other and unspecified hyperlipidemia 01/27/2010 Unspecified hemorrhoids without mention of compl ication 02/09/2016 Overview: Hemorrhoids Anemia, unspecified 02/09/2016 documented as of this encounter (statuses as of 02/27/2022) [facility] of Past illness Narrative* Problem Noted Date Resolved Date Acute postoperative pain 12/04/2017 018 Overview: -PT eval. -Out of bed to chair for meals. -Ambulate pt 3-4 x daily as able. -Monitor: signs, symptoms, disease progression, disease regression. -Evaluate: test results, medication effectiveness, response to treatment. -Pain control: analgesics titrated per consultation with Dr. Jess Dick -Plan discussed with Dr. Jess HUGHES planning. Lumbar stenosis with neurogenic claudication 01/23/2018 Colon cancer screening 04/12/2016 6 Undiagnosed cardiac murmurs 03/02/20130 10/2015 Labyrinthitis, unspecified 08/05/200602/08 PAIN JOINT, KNEE 10/03/2005 02/09/2016 Acute gastritis without mention of hemorrhage 02/09/2016 Other and unspecified hyperlipidemia 01/27/2010 Unspecified hemorrhoids without mention of compl ication 02/09/2016 Overview: Hemorrhoids Anemia, unspecified 02/09/2016 documented as of this encounter (statuses as of 03/15/2022) [place] [id number] History of Past illness Narrative* Problem Noted Date Resolved Date Acute postoperative pain 12/04/2017 018 Overview: -PT eval. -Out of bed to chair for meals. -Ambulate pt 3-4 x daily as able. -Monitor: signs, symptoms, disease progression, disease regression. -Evaluate: test results, medication effectiveness, response to treatment. -Pain control: analgesics titrated per consultation with Dr. Jess Dick -Plan discussed with Dr. Jess HUGHES planning. Lumbar stenosis with neurogenic claudication 01/23/2018 Colon cancer screening 04/12/2016 6 Undiagnosed cardiac murmurs 03/02/201310/2015 Labyrinthitis, unspecified 08/05/200602/08 PAIN JOINT, KNEE 10/03/2005 02/09/2016 Acute gastritis without mention of hemorrhage 02/09/2016 Other and unspecified hyperlipidemia 01/27/2010 Unspecified hemorrhoids without mention of compl ication 02/09/2016 Overview: Hemorrhoids Anemia, unspecified 02/09/2016 documented as of this encounter (statuses as of 04/05/2022) [facility] of Past illness Narrative* Problem Noted Date Resolved Date Acute postoperative pain 12/04/2017 018 Overview: -PT eval. -Out of bed to chair for meals. -Ambulate pt 3-4 x daily as able. -Monitor: signs, symptoms, disease progression, disease regression. -Evaluate: test results, medication effectiveness, response to treatment. -Pain control: analgesics titrated per consultation with Dr. Jess Dick -Plan discussed with Dr. Jess HUGHES planning. Lumbar stenosis with neurogenic claudication 01/23/2018 Colon cancer screening 04/12/2016 6 Undiagnosed cardiac murmurs 03/02/201310/2015 Labyrinthitis, unspecified 08/05/200602/08 PAIN JOINT, KNEE 10/03/2005 02/09/2016 Acute gastritis without mention of hemorrhage 02/09/2016 Other and unspecified hyperlipidemia 01/27/2010 Unspecified hemorrhoids without mention of compl ication 02/09/2016 Overview: Hemorrhoids Anemia, unspecified 02/09/2016 documented as of this encounter (statuses as of 06/06/2022) [facility] of Past illness Narrative* Problem Noted Date Resolved Date Acute postoperative pain 12/04/2017 018 Overview: -PT eval. -Out of bed to chair for meals. -Ambulate pt 3-4 x daily as able. -Monitor: signs, symptoms, disease progression, disease regression. -Evaluate: test results, medication effectiveness, response to treatment. -Pain control: analgesics titrated per consultation with Dr. Jess Dick -Plan discussed with Dr. Jess HUGHES planning. Lumbar stenosis with neurogenic claudication 01/23/2018 Colon cancer screening 04/12/2016 6 Undiagnosed cardiac murmurs 03/02/2013 080 10/2015 Labyrinthitis, unspecified 08/05/200602/08 PAIN JOINT, KNEE 10/03/2005 02/09/2016 Acute gastritis without mention of hemorrhage 02/09/2016 Other and unspecified hyperlipidemia 01/27/2010 Unspecified hemorrhoids without mention of compl ication 02/09/2016 Overview: Hemorrhoids Anemia, unspecified 02/09/2016 documented as of this encounter (statuses as of 07/23/2022) [facility] of Past illness Narrative* Problem Noted Date Resolved Date Acute postoperative pain 12/04/2017 018 Overview: -PT eval. -Out of bed to chair for meals. -Ambulate pt 3-4 x daily as able. -Monitor: signs, symptoms, disease progression, disease regression. -Evaluate: test results, medication effectiveness, response to treatment. -Pain control: analgesics titrated per consultation with Dr. Jess Dikc -Plan discussed with Dr. Jess HUGHES planning. Lumbar stenosis with neurogenic claudication 01/23/2018 Colon cancer screening 04/12/2016 6 Undiagnosed cardiac murmurs 03/02/2013 080 10/2015 Labyrinthitis, unspecified 08/05/200602/08 PAIN JOINT, KNEE 10/03/2005 02/09/2016 Acute gastritis without mention of hemorrhage 02/09/2016 Other and unspecified hyperlipidemia 01/27/2010 Unspecified hemorrhoids without mention of compl ication 02/09/2016 Overview: Hemorrhoids Anemia, unspecified 02/09/2016 documented as of this encounter (statuses as of 08/14/2022) [facility] of Past illness Narrative* Problem Noted Date Resolved Date Acute postoperative pain 12/04/2017 018 Overview: -PT eval. -Out of bed to chair for meals. -Ambulate pt 3-4 x daily as able. -Monitor: signs, symptoms, disease progression, disease regression. -Evaluate: test results, medication effectiveness, response to treatment. -Pain control: analgesics titrated per consultation with Dr. Jess Dick -Plan discussed with Dr. Jess Dick -SHAN[place] planning. Lumbar stenosis with neurogenic claudication 01/23/2018 Colon cancer screening 04/12/2016 6 Undiagnosed cardiac murmurs 03/02/20130 10/2015 Labyrinthitis, unspecified 08/05/200602/08 Acute gastritis without mention of hemorrhage 02/09/2016 Other and unspecified hyperlipidemia 01/27/2010 Unspecified hemorrhoids without mention of compl ication 02/09/2016 Overview: Hemorrhoids Anemia, unspecified 02/09/2016 documented as of this encounter (statuses as of 08/22/2022) [facility] of Past illness Narrative* Problem Noted Date Resolved Date Acute postoperative pain 12/04/2017 018 Overview: -PT eval. -Out of bed to chair for meals. -Ambulate pt 3-4 x daily as able. -Monitor: signs, symptoms, disease progression, disease regression. -Evaluate: test results, medication effectiveness, response to treatment. -Pain control: analgesics titrated per consultation with Dr. Jess Dick -Plan discussed with Dr. Jess HUGHES planning. Lumbar stenosis with neurogenic claudication 01/23/2018 Colon cancer screening 04/12/2016 6 Undiagnosed cardiac murmurs 03/02/2013 0810/2015 Labyrinthitis, unspecified 08/05/200602/08 Acute gastritis without mention of hemorrhage 02/09/2016 Other and unspecified hyperlipidemia 01/27/2010 Unspecified hemorrhoids without mention of compl ication 02/09/2016 Overview: Hemorrhoids Anemia, unspecified 02/09/2016 documented as of this encounter (statuses as of 08/23/2022) [facility]05-30-2018 History of Past illness Narrative* Problem Noted Date Diagnosed Date Resolved Date Acute postoperative pain 12/04/2017 Overview: -PT eval. -Out of bed to chair for meals. -Ambulate pt 3-4 x daily as able. -Monitor: signs, symptoms, disease progression, disease regression. -Evaluate: test results, medication effectiveness, response to treatment. -Pain control: analgesics titrated per consultation with Dr. Jess Dick -Plan discussed with Dr. Jess HUGHES planning. Lumbar stenosis with neurogenic claudication 8 01/23/2018 Colon cancer screening 04/12/201604/12 Undiagnosed cardiac murmurs 03/02/2013 02/09/2016 Labyrinthitis, unspecified 08/05/2006 0 02/09/2016 Acute gastritis without mention of hemorrhage 09/04/19 06 02/09/2016 Other and unspecified hyperlipidemia 01/27/2010 Unspecified hemorrhoids with out mention of complication 02/09/2016 Overview: Hemorrhoids Anemia, unspecified 02/09/20 16 documented as of this encounter (statuses as of 05/12/2023) [facility]01-30-2017 Evaluation note* Diagnosis Onset Date Resolution Status Essential hypertension acute Atherosclerosis of coronary artery of [place] heart without angina pectoris chronic H/O coronary artery bypass surgery August 06, 2016 chronic Hyperlipidemia chronic Non-rheumatic aortic stenosis chronic [facility] Work Phone: Discharge summary Author Lana Menjivar [facility] Note Date/Time February 17, 2025 5: 37pm [facility] Medical Records Department [address] [place] [address] Discharge Summary 02/17/25 1729 MR#: [id number] Acct: [id number] Name: SAM VIDALES Rep #:[id number] : 1950 74 From: Lana Menjivar MD PCP: [facility] Status:ADM IN Location: [facility] [id number] Providers Date of Admission: 02/12/25 Date of Discharge: 02/17/25 Primary Care Physician: [facility] Consultations 02/12/25 22:09 Consult: Cardiology Routine Consulting Provider: Deanne Medley Reason for Consult: Resp failure, HF Exac EMERGENT Consult: No Notified: Yes Date Notified: 02/12/25 Time Notified: 20:27 Method of Notification: Text Consult: Location And Measurement Technician / Pulmonary Medicine Routine Consulting Provider: Intensivists/Pulmonary Med Reason for Consult: Resp failure, suspected HF Exac EMERGENT Consult: No Notified: Yes Date Notified: 02/12/25 Time Notified: 20:29 Method of Notification: Text 02/14/25 14:25 Consult: Nephrology Routine Consulting Provider: Amber Bryant Reason for Consult: JUAN EMERGENT Consult: No Notified: Yes Date Notified: 02/14/25 Time Notified: 14:26 Method of Notification: Text Reason For Visit: RESPIRATORY FAILURE, HF EXACERBATION Diagnosis Discharge Diagnosis (1) JUAN (acute kidney injury): Status: Acute Code(s): N17.9 - Acute kidney failure, unspecified Plan #Acute hypoxic and hypercapnic respiratory failure due to acute decompensated heart failure * self extubated yesterday. transferred out of the ICU. * Critical care on board. * Respiratory panel negative. * Titrate oxygen to maintain saturation above 90%. * breathing treatment with bronchodilators. * off lasix now due to worsening kidney impairment. * proBNP was elevated at 15,846. * on IV vancomycin and zosyn. Blood cultures show no growth after 48 hours. Sputum cultures are negative. Will dc IV antibiotics. * 2D echo showed EF of 55 to 60% with moderate eccentric left ventricular hypertrophy and severe calcific AV stenosis * Now on room air. #Elevated troponins * Initial troponin was 146 and peaked at 167. * said he did not have any chest pain. 2D echo ordered today showed EF of 55 to 60% with no regional wall motion abnormalities and showed severe aortic stenosis * cardiology on board * Had cardiac cath which showed c angiographically normal left main coronary artery with severely diseased left anterior descending artery and patent flores grafts to the mid LAD and obtuse marginal artery. * #Severe aortic stenosis: * As per 2D echo. Cardiology on board. * cardiac cath today showed clean coronaries and severe aortic stenosis. * will need follow up with cardiology on outpatient basis for evaluation for TAVR. * #JUAN on CKD IV with elevated anion gap * CR is further up to 4.45 today, from 4.18 yesterday. * off lasix. off amlodipine and midodrine also per nephrology. * * #History of CAD s/p CABG, on aspirin and ezetimibe. Beta-blockers held due to hypotension. #Hypertension: BP meds currently on hold #Type 2 diabetes mellitus: Oral meds on hold. Insulin sliding scale. Accu-Cheks ACHS. DVT prophylaxis: On heparin Medications at Discharge Home Medications atorvastatin 40 mg tablet (Lipitor) 40 mg PO DAILY Hyperlipidemia 02/13/25 carvedilol 25 mg tablet 25 mg PO DAILY Hypertension 02/13/25 dulaglutide 0.75 mg/0.5 mL subcutaneous pen injector 0.75 mg subcut QWEEK TP2DM 02/13/25 empagliflozin 25 mg tablet 25 mg PO DAILY T2DM 02/13/25 ezetimibe 10 mg tablet 10 mg PO DAILY Hypertension 02/13/25 felodipine 10 mg tablet,extended release 24 hr 10 mg PO DAILY Hypertension 02/13/25 insulin glargine 100 unit/mL (3 mL) subcutaneous pen (Basaglar KwikPen U-100 Insulin) 28 unit subcut DAILY T2DM 02/13/25 isosorbide mononitrate 30 mg tablet,extended release 24 hr 30 mg PO DAILY For Heart 08/09/25 minoxidil 2.5 mg tablet 5 mg PO BID Hypertension 02/13/25 olopatadine 0.7 % eye drops 1 drp EACH EYE DAILY Allergic Conjuctivitis 02/13/25 Hospital Course Operations None Procedures 2-D Echocardiogram and Angiogram Summary of Care Provided Minutes Spent on Discharge: 48 Hospital Course: Patient is a 74-year-old male with past medical history as outlined was admittedto the ED on 02/12/2025 with complaint of fatigue, malaise and acute no shortness of breath on the day of admission. His generalized malaise and fatigue had beengoing on for several days prior to admission. On the day of admission his pulseox read at 80% on room air and he was very diaphoretic and pale. EMS was therefore called and patient was emergently intubated before being brought to the ED. said he had been active for at least 2 to 3 days prior to admission and playing several rounds of golf and carrying heavy cell bags with his only complaint being the generalized fatigue and malaise. As stated in the ED he was satting at 6% on a nonrebreather mask and required 15 L of oxygen was eventually intubated. proBNP was elevated and urinalysis showed cloudy appearing urine with negative nitrites and negative leukocyte esterase. Chest x-ray showed mild vascular congestion with no obvious infiltrate and EKG showed no acute ST changes. Respiratory panel was negative for COVID, flu and RSV. Hewas admitted and managed for acute hypoxic and hypercapnic respiratory failure due to acute decompensated heart failure. He was diuresed with IV Lasix as proBNP was elevated at 15,846. Initial troponin was 146 and peaked at 167. Creatinine was 3.39 with no known baseline creatinine in the EMR. Nephrology was therefore consulted. He had 2D echo which showed EF of 55 to 60% and severecalcific aortic valve stenosis. Cardiology was also consulted. Patient initially could not tolerate spontaneous breathing trial. Critical care was also consulted. Patient eventually self extubated and interestingly did well. He was started on broad-spectrum antibiotics but these were discontinued after his blood culture showed no growth. He had cardiac cath which showed patent grafts to the mid LAD and the obtuse marginal branch as well as patent graft to the RPDA and the second obtuse marginal arteries. There were findings of severeaortic valve stenosis. Patient's creatinine started improving slightly and did trend down was a bit. Cardiology recommended that patient could be discharged home to follow-up with them on outpatient basis to be evaluated for TAVR. Per nephrology his baseline creatinine was 2.8 in July and admission his creatinine was 3.3. At time of discharge creatinine was 4.38. Patient had beendiuresed per cardiology recommended that patient could be discharged on no diuresis in light of the severe aortic stenosis. Renal ultrasound showed no hydronephrosis or acute pathology. Patient remained stable and was discharged home on 02/17/2025. 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 Cardiology was also okay with him being discharged and he is to follow-up with cardiology on outpatient basis to be evaluated for TAVR. Patient seen and examined prior to discharge. He felt well. I saw him with hisnurse by his bedside. He was comfortably eating breakfast. He had no complaints. Labs and vitals reviewed. Home medication reviewed and reconciled. Physical Exam Const alert and oriented x3 Constitutional Narrative: on room air. General Appearance: cooperative and comfortable HEENT normocephalic, head/scalp atraumatic, hearing grossly normal bilaterally and moist oral mucous membranes Mouth: oral and palatal mucosa normal Eyes PERRL and EOMs intact bilaterally Neck no lymphadenopathy Lymph Lymphatic: no lymphedema noted Resp Resp Narrative: mildly diminished breath sounds bibasally, no wheezes or crackles. On room air. Cardio regular rate, regular rhythm, S1 normal heart sound and S2 normal heart sound GI normal to inspection, nondistended, normoactive bowel sounds, soft to palpation and non-tender Extremity normal to inspection, full ROM, normal capillary refill and no clubbing, cyanosis or edema General Extremity: no tenderness to palpation of joints or extremities Skin General Skin Exam: no breakdown Neuro oriented x3, CN's II-XII intact bilaterally, moves all extremities and no focal motor deficits Motor Exam: general weakness Psych thought process normal and affect normal Appearance: appropriate Weight / BMI Weight Weight: 172 lb 6.4 oz Body Mass Index (BMI) 24.7 ABG / Lab / Microbiology Data 02/17/25 05:44 02/17/25 05:44 Laboratory: Laboratory Results - last 24 hr 02/16/25 21:02: POC Glucose 191 H 02/17/25 05:44: WBC 7.3, RBC 3.35 L, Hgb 10.1 L, Hct 30.1 L, MCV 89.9, MCH 30.1,MCHC 33.6, RDW Std Deviation 42.5, RDW Coeff of Samir 12.9, Plt Count 175, MPV 9.8, Immature Gran % (Auto) 0.300, Neut % (Auto) 62.7, Lymph % (Auto) 15.7 L, [place] % (Auto) 12.9 H, Eos % (Auto) 7.7 H, Baso % (Auto) 0.7, Absolute Neuts (auto) 4.6, Absolute Lymphs (auto) 1.14, Nucleated RBC % 0, PT 14.3, INR 1.1, APTT 31.1, Sodium 141, Potassium 3.5, Chloride 104, Carbon Dioxide 18.7 L, AnionGap 19 H, BUN 79 H, Creatinine 4.38 H, Estim Creat Clear Calc 15.05 L, Est GFR (MDRD) Non-Af 13 L, BUN/Creatinine Ratio 17.9, Glucose 168 H, Calcium 8.8 02/17/25 06:40: POC Glucose 158 H 02/17/25 11:31: POC Glucose 206 H 02/17/25 16:53: POC Glucose 177 H Microbiology: Microbiology 02/14/25 08:25 Blood Culture (Wb) - Anticubital Left Blood Culture - Preliminary No growth in 48 hours. 02/12/25 19:55 Sputum, Induced/[place]uk[place] Gram Stain - Final 02/12/25 19:55 Sputum, Induced/[place]ukens Respiratory Culture - Final Mixed normal respiratory elizabeth. No Streptococcus pneumoniae, beta-hemolytic Streptococcus or Staphylococcus aureus isolated. 02/12/25 19:37 Urine, Catheterized Urine Culture - Final Culture exhibits no growth. 02/12/25 19:59 Blood Culture (Wb) - Left Hand Blood Culture - Preliminary No growth in 48 hours. 02/12/25 19:00 Blood Culture (Wb) - Anticubital Right Blood Culture - Preliminary No growth in 48 hours. 02/12/25 22:50 Nasal Secretion MRSA (PCR) - Final 02/12/25 21:10 Mucosa - Nasopharyngeal Respiratory Panel (PCR) - Final 02/12/25 19:17 Mucosa - Nose SARS-CoV-2, Influenza & RSV (PCR) - Final D/C Instructions Discharge Activity: Return to Normal Activity Weight Bearing Status: Weight bearing as tolerated Call your doctor if you observe: Fever of 101 or Higher, Shortness of breath, Dizziness, Swelling in the ankles and Chest pain DC O2, CPAP, BIPAP Needs Home O2 Discharge instructions: No Meaningful Use Info Meaningful Use Meaningful Use Diagnoses (Choose all that apply): CHF CHF ALEXANDREA/ARB ordered at discharge?: No Reason ALEXANDREA/ARB not ordered?: Worsening renal disease Documented LVEF (%): 55 Discharge Plan Admission Admit Date/Time: 02/12/25 20:25 Primary Reason for Your Visit: severe aortic stenosis, acute hypoxic respriratory failure Attending Provider: Lana Menjivar Primary Care Provider: [facility] Consulting Providers: Vandana Bro; Deanne Medley; Harvey Mckeon; Steven Boyd; Toi David; Boom Garg; Jony Steel; Avery Gaona; Carter Tripp; Mikayla Chavez; Jesus Grant; Nir Mccarthy; Cole Christie; Juliet Sapp; Ирина Herrera; Teagan Enriquez; Johann Kern; Jakub Malone; Isidoro Solitario; Merrick Jimenez; Marcello Rubio; Sonya Vazquez; Juliocesar Cao; Markell Romo; Jan Yen; Amber Bryant Instructions Patient Instructions: Coping with Kidney Failure, Acute Kidney Failure Dc Additional Instructions / Restrictions: to see PCP/electrician substation for follow up BMP within one week. Discharge Orders/Prescriptions Prescriptions: Continued isosorbide mononitrate 30 mg tablet extended release 24 hr 30 mg PO DAILY minoxidil 2.5 mg tablet 5 mg PO BID atorvastatin [Lipitor] 40 mg tablet 40 mg PO DAILY ezetimibe 10 mg tablet 10 mg PO DAILY carvedilol 25 mg tablet 25 mg PO DAILY Rx Instructions: must administer with a meal/food felodipine 10 mg tablet extended release 24 hr 10 mg PO DAILY dulaglutide 0.75 mg/0.5 mL pen injector 0.75 mg subcut QWEEK insulin glargine [Basaglar KwikPen U-100 Insulin] 100 unit/mL (3 mL) insulin pen 28 unit subcut DAILY olopatadine 0.7 % drops 1 drp EACH EYE DAILY empagliflozin 25 mg tablet 25 mg PO DAILY Referrals / Follow Up: Rah Mary MD [Med Staff - Active Staff] - 03/03/25 10:00 am ([facility] Sunshine Nesbitt MD [Med Staff - Consulting] - Within 1 Week [facility] [Primary [facility] - Within 1 Week Disposition Disposition (needs filled in before D/C Order can be placed): Home, Self Care Charges/Coding Visit Charges Inpatient E&M: 02351 Disch Hosp >30min 02/17/25 1737 <Electronically signed by Lana Menjivar MD> Cosigner Signature (if applicable): CC: Dr. Lana Menjivar MD; [facility]~ Signed [facility] Work Phone: Discharge summary [facility] Note Date/Time February 25, 2025 3: 54pm [facility] Medical Records Department [address] [place] [address] Instructions for Home/Discharge Instructions 02/25/25 1412 MR#: [id number] Acct: [id number] Name: SAM VIDALES Rep #:[id number] : 1950 74 From: Lana Menjivar MD PCP: [facility] Status:ADM IN Discharge Instructions DC O2, CPAP, BIPAP needs Home O2 Discharge instructions: No Dressing / Incision Discharge Activity: Return to Normal Activity Weight Bearing Status: Weight bearing as tolerated Dressing / Incision Call your doctor if you observe: Fever of 101 or Higher, Shortness of breath, Dizziness, Swelling in the ankles and Chest pain Follow Up Care Test Results: Test results from this visit will be discussed in further detail at your follow- up appointment, if applicable. Discharge Plan Admission Admit Date/Time: 02/23/25 10:38 Primary Reason for Your Visit: acute on chronic heart failure, severe aortic stenosis Attending Provider: Lana Menjivar Primary Care Provider: [facility] Consulting Providers: Sunshine Nesbitt Instructions Patient Instructions: Aortic Stenosis, Coping with Heart Failure Discharge Orders/Prescriptions Prescriptions: New furosemide [Lasix] 20 mg tablet 60 mg PO BID 30 Days Qty: 180 2RF potassium chloride [K-Tab] 20 mEq tablet extended release 20 meq PO DAILY Qty: 30 1RF Continued insulin glargine [Lantus U-100 Insulin] 100 unit/mL solution 15 unit SC DAILY atorvastatin 40 mg tablet 40 mg PO QHS Qty: 30 11RF ezetimibe [Zetia] 10 mg tablet 10 mg PO DAILY carvedilol 25 mg tablet 25 mg PO BID Rx Instructions: must administer with a meal/food Jardiance 25 mg tablet 12.5 mg PO DAILY aspirin [Adult Aspirin Regimen] 81 mg tablet,delayed release (DR/EC) 81 mg PO DAILY isosorbide mononitrate 30 mg tablet extended release 24 hr 30 mg PO DAILY Qty: 30 12RF Discontinued minoxidil 2.5 mg tablet 5 mg PO DAILY chlorthalidone 25 mg tablet 25 mg PO DAILY Referrals / Follow Up: Rah Mary MD [Med Staff - Active Staff] - Within 2 Weeks Sunshine Nesbitt MD [Med Staff - Consulting] - Within 2 Weeks [facility] [Primary Care Provider] - Within 1 Week Disposition Disposition (needs filled in before D/C Order can be placed): Home, Self Care 02/25/251411<Electronically signed by Lana Menjivar MD>Lana Menjivar MD CC: Dr. Sunshine Nesbitt MD; [facility] ~ Signed [facility] Work Phone: Discharge summary Author [facility] Note Date/Time February 25, 2025 3: 43pm [facility] Medical Records Department [address] [place] [address] Discharge Summary 02/25/25 1413 MR#: [id number] Acct: [id number] Name: SAM VIDALES Rep #:[id number] : 1950 74 From: Lana Menjivar MD PCP: [facility] Status:ADM IN Location: [facility] [id number] Providers Date of Admission: 02/23/25 Date of Discharge: 02/25/25 Primary Care Physician: [facility] Consultations 02/23/25 11:31 Consult: Nephrology Routine Consulting Provider: Sunshine Nesbitt Reason for Consult: JUAN on CKD EMERGENT Consult: No MD Notified: Yes Date Notified: 02/23/25 Time Notified: 11:35 Method of Notification: Answering Service Reason For Visit: ACUTE HYPOXIC RESPIRATORY FAILURE Diagnosis Discharge Diagnosis (1) Chronic kidney disease: Status: Chronic Code(s): N18.9 - Chronic kidney disease, unspecified Plan #Acute hypoxic respiratory failure due to acute on chronic HFrEF in the setting of severe aortic stenosis * patient was recently admitted ~ 1 week ago for acute hypoxic respiratory failure due to acute on chronic HFrEF as well as nonstemi and severe aortic stenosis * he was intubated in the previous admission and on extubation, he had cardiac cath which showed severe aortic stenosis. Records from that admission are under a different visit number and efforts are being made to merge that with this visit. * he was discharged home to follow up with cardiology on outpatient basis * He came in today with a complaint of shortness of breath and cough which is productive of clear sputum. He required BIPAP on arrival in the ED. * Initial troponin was 142 and essentially remaiined flat, only getting to 149. * pro BNP was 89430. * now on room air and feels much better. * Being diuresed with IV lasix 40mg bid. * upper doubler Dr Mary did see patient yesterday and today. He recommended patient being sent home on PO lasix 60mg bid when medically stable. * We are still waiting for his most recent visit to be merged with this visit in order to access his records from most recent visit. * titrate oxygen to maintain sats >90% * breathing treatment with bronchodilators. * * #JUAN on CKD III * Cr is slightly up to 3.37. Baseline Cr is ~ 2.7. * being diuresed with IV lasix which may also worsen Cr * nephrology consulted. Results from most recent admission is not seen in the EMR as that visit is still being merged * await records from most recent admission as it is still being merged with this visit. * #CAD; on aspirin, statin and imdur. #Type 2 diabetes mellitus * on lantus 15 units daily. ISS. Accuchecks ACHS. Hold Jardiance * #Hypertension: on carvedilol, chlorthalidone and minoxidil. Per discussion with cardiology, to review most recent med list when the records are merged to decidewhether to continue chlorthalidone and minoxidil. DVT prophylaxis: lovenox, renally dosed Code status: full code * Disposition: Transfer to PCU Medications at Discharge Home Medications atorvastatin 40 mg tablet 40 mg PO QHS cholesterol #30 tabs 03/28/20 aspirin 81 mg tablet,delayed release (Adult Aspirin Regimen) 81 mg PO DAILY heart health 06/14/21 ezetimibe 10 mg tablet (Zetia) 10 mg PO DAILY cholesterol 10/09/21 insulin glargine 100 unit/mL subcutaneous solution (Lantus U-100 Insulin) 15 unit subcut DAILY diabetes 10/09/21 isosorbide mononitrate 30 mg tablet,extended release 24 hr 30 mg PO DAILY heart #30 tabs 01/05/22 empagliflozin 25 mg tablet (Jardiance) 12.5 mg PO DAILY diabetes 11/29/22 carvedilol 25 mg tablet 25 mg PO BID blood pressure 07/19/23 furosemide 20 mg tablet (Lasix) 60 mg (3 x 20 mg) PO BID 30 days #180 tabs 02/25/25 potassium chloride 20 mEq tablet,extended release (K-Tab) 20 meq PO DAILY #30 tabs 02/25/25 Hospital Course Operations None Procedures None Summary of Care Provided Minutes Spent on Discharge: 45 Hospital Course: SAM VIDALES, is a 74 M with a PMH as outlined who presents via the ED on 02/23/2025 with a complaint of shortness of breath. He has a history of severe aortic stenosis, and was recently seen about a week ago and managed for acute hypoxic respiratory failure due to acute heart failure and severe aortic stenosis. He was intubated during that admission and had a cardiac cath which showed clean coronaries. He was discharged home, to follow with cardiology and to be set up for TAVR. However he said he started feeling short of breath againovernight. He denied any chest pain or palpitations, dizziness, nausea vomitingor any other symptoms. Of note to the most recent admission records and a different visit number ([id number]). Efforts were made to merge that visit and this current visit without success throughout his stay. Vitals in the ED were blood pressure of 139/74, pulse rate of 73, respiratory rate of 19 and temperature of 97.1 Fahrenheit. He was saturating at 100% on BIPAP. BiPAP CBC showed hemoglobin of 10.8 with WBC of 10 and platelets of 274. Chemistry showed sodium of 139 with potassium of 4.9 and creatinine of 3.2. Initial troponin was 142. proBNP was 29539. chest x-ray showed central vascularity which appeared increase in interstitial infiltrates in the perihilarregion on the right and left. He is being admitted to be mnaged for acute hypoxic respiratory failure due to acute exacerbation of HFpEF in the setting ofsevere aortic stenosis. He was diuresed with IV Lasix. He was initially admitted to the ICU as he was requiring BiPAP. He was weaned off of BiPAP onto oxygen by nasal cannula and eventually on room air. He was transferred out of the ICU also shortness of breath resolved. I did speak to the upper doubler Dr. Adams who saw the patient during this admission. Nephrology was also consulted. Cardiology recommended patient being discharged on p.o. Lasix 60 mg twice daily. His minoxidil and chlorthalidone were discontinued. He is to follow-up with his primary care doctor and with cardiology as well as nephrology within 1 to 2 weeks. He has reported that the valve clinic in [place] in early March and he was counseled to keep this appointment. Patient seen and examined prior to discharge. He felt much better and had no complaints. He had an uneventful night and was eager to be discharged home. Review of systems otherwise negative. Labs and vitals reviewed. Home medication reviewed and reconciled. Physical Exam Const alert, oriented x3 and no apparent distress General Appearance: cooperative, comfortable and well kempt Orientation / Consciousness: awake Exam Limitations: no limitations HEENT normocephalic, head/scalp atraumatic, hearing grossly normal bilaterally, moist oral mucous membranes and oropharynx normal Mouth: oral and palatal mucosa normal Eyes EOMs intact bilaterally and conjunctivae normal Neck supple and no JVD Lymph Lymphatic: no lymphedema noted Resp Resp Narrative: mildly diminished breath sounds bibasally, no wheezes or crackles. On room air. Cardio regular rate, regular rhythm, S1 normal heart sound, S2 normal heart sound and no murmurs GI normal to inspection, nondistended, normoactive bowel sounds, soft to palpation,non-tender and non-distended Extremity normal to inspection, full ROM and no clubbing, cyanosis or edema General Extremity: no tenderness to palpation of joints or extremities Skin no rashes or lesions noted General Skin Exam: no breakdown Neuro oriented x3, CN's II-XII intact bilaterally and moves all extremities Sensorium / Orientation: awake and alert Motor Exam: strength 5/5 throughout Psych thought process normal, cooperative and affect normal Appearance: appropriate Weight / BMI Weight Weight: 172 lb 0.004 oz Body Mass Index (BMI) 25.4 ABG / Lab / Microbiology Data 02/25/25 04:44 02/25/25 04:44 Laboratory: Laboratory Results - last 24 hr 02/25/25 04:44: WBC 7.8, RBC 3.48 L, Hgb 10.3 L, Hct 31.1 L, MCV 89.4, MCH 29.6,MCHC 33.1, RDW Std Deviation 39.1, RDW Coeff of Samir 12.2, Plt Count 302, MPV 9.6, Immature Gran % (Auto) 0.500, Neut % (Auto) 56.1, Lymph % (Auto) 22.5, [place]% (Auto) 11.8 H, Eos % (Auto) 8.1 H, Baso % (Auto) 1.0, Absolute Neuts (auto) 4.4, Absolute Lymphs (auto) 1.75, Nucleated RBC % 0, Sodium 136, Potassium 4.6, Chloride 97 L, Carbon Dioxide 24.0, Anion Gap 15, BUN 75 H, Creatinine 3.65 H, Estim Creat Clear Calc 17.49 L, Est GFR (MDRD) Non-Af 17 L, BUN/Creatinine Ratio 20.7 H, Glucose 301 H, Calcium 8.9 02/25/25 08:13: POC Glucose 202 H 02/25/25 11:57: POC Glucose 330 H D/C Instructions Discharge Activity: Return to Normal Activity Weight Bearing Status: Weight bearing as tolerated Call your doctor if you observe: Fever of 101 or Higher, Shortness of breath, Dizziness, Swelling in the ankles and Chest pain DC O2, CPAP, BIPAP Needs Home O2 Discharge instructions: No DC home with Oxygen: No Meaningful Use Info Meaningful Use Meaningful Use Diagnoses (Choose all that apply): CHF AMI/Post PCI/Angioplasty Alexandrea/ARB at discharge?: Yes CHF ALEXANDREA/ARB ordered at discharge?: No Reason ALEXANDREA/ARB not ordered?: Worsening renal disease Documented LVEF (%): 35 Discharge Plan Admission Admit Date/Time: 02/23/25 10:38 Primary Reason for Your Visit: acute on chronic heart failure, severe aortic stenosis Attending Provider: Lana Menjivar Primary Care Provider: [facility] Consulting Providers: Sunshine Nesbitt Instructions Patient Instructions: Aortic Stenosis, Coping with Heart Failure Discharge Orders/Prescriptions Prescriptions: New furosemide [Lasix] 20 mg tablet 60 mg PO BID 30 Days Qty: 180 2RF potassium chloride [K-Tab] 20 mEq tablet extended release 20 meq PO DAILY Qty: 30 1RF Continued insulin glargine [Lantus U-100 Insulin] 100 unit/mL solution 15 unit SC DAILY atorvastatin 40 mg tablet 40 mg PO QHS Qty: 30 11RF ezetimibe [Zetia] 10 mg tablet 10 mg PO DAILY carvedilol 25 mg tablet 25 mg PO BID Rx Instructions: must administer with a meal/food Jardiance 25 mg tablet 12.5 mg PO DAILY aspirin [Adult Aspirin Regimen] 81 mg tablet,delayed release (DR/EC) 81 mg PO DAILY isosorbide mononitrate 30 mg tablet extended release 24 hr 30 mg PO DAILY Qty: 30 12RF Discontinued minoxidil 2.5 mg tablet 5 mg PO DAILY chlorthalidone 25 mg tablet 25 mg PO DAILY Referrals / Follow Up: Rah Mary MD [Med Staff - Active Staff] - 03/03/25 10:00 am Sunshine Nesbitt MD [Med Staff - Consulting] - Within 2 Weeks [facility] [Primary Care Provider] - Within 1 Week Disposition Disposition (needs filled in before D/C Order can be placed): Home, Self Care Charges/Coding Visit Charges Inpatient E&M: 47617 Disch Hosp >30min 02/25/25 1543 <Electronically signed by Lana Menjivar MD> Cosigner Signature (if applicable): CC: Dr. Lana Menjivar MD; [facility]~ Signed [facility] Work Phone: Evaluation note* Diagnosis Gastroesophageal reflux disease, unspecified whether esophagitis present Iron deficiency anemia, unspecified iron deficiency anemia type Abdominal hernia without obstruction and without gangrene, recurrence not specified, unspecified hernia type [facility] Diagnosis Gastroesophageal reflux disease, unspecified whether esophagitis present- Primary Iron deficiency anemia, unspecified iron deficiency anemia type Abdominal hernia without obstruction and without gangrene, recurrence not specified, unspecified hernia type documented in this encounter [facility] note* Diagnosis Iron deficiency anemia, unspecified iron deficiency anemia type- Primary Abdominal hernia without obstruction and without gangrene, recurrence not specified, unspecified hernia type documented in this encounter [facility] note* Diagnosis Iron deficiency anemia, unspecified iron deficiency anemia type- Primary Gastritis, presence of bleeding unspecified, unspecified chronicity, unspecified gastritis type Adenomatous polyp of colon, unspecified part of colon Iron deficiency anemia, unspecified iron deficiency anemia type Gastritis, presence of bleeding unspecified, unspecified chronicity, unspecified gastritis type Adenomatous polyp of colon, unspecified part of colon documented in this encounter [facility] note* Diagnosis Pre-operative examination- Primary Preoperative examination, unspecified Type 2 diabetes mellitus with stage 3 chronic kidney disease, with long-term current use of insulin, unspecified whether stage 3a or 3b CKD (HCC) Coronary artery disease involving [place] coronary artery of [place] heart without angina pectoris Hyperlipidemia, unspecified hyperlipidemia type Stage 3 chronic kidney disease, unspecified whether stage 3a or 3b CKD (HCC) Chronic obstructive pulmonary disease with acute exacerbation (HCC) Obstructive chronic bronchitis with exacerbation BPH without urinary obstruction Hypertrophy of prostate without urinary obstruction and other lower urinary tract symptoms (LUTS) Aortic stenosis, mild Aortic valve disorders Gastroesophageal reflux disease, unspecified whether esophagitis present Iron deficiency anemia, unspecified iron deficiency anemia type S/P lumbar laminectomy Other postprocedural status Chronic pain of left knee Pain in joint, lower leg Iron deficiency anemia, unspecified iron deficiency anemia type Gastritis, presence of bleeding unspecified, unspecified chronicity, unspecified gastritis type Adenomatous polyp of colon, unspecified part of colon documented in this encounter [facility] note* Diagnosis Onset Date Resolution Status Essential hypertension acute Atherosclerosis of coronary artery of [place] heart without angina pectoris chronic Hyperlipidemia chronic Non-rheumatic aortic stenosis chronic [facility] Work Phone: Evaluation note* Diagnosis Special screening for malignant neoplasms, colon- Primary Gastroesophageal reflux disease, unspecified whether esophagitis present Iron deficiency anemia, unspecified iron deficiency anemia type documented in this encounter [facility] note* Diagnosis Onset Date Resolution Status Admit Date Congestive heart failure acute February 12, 2025 8:25pm History of aortic stenosis acute February 12, 2025 8:25pm History of diabetes mellitus acute February 12, 2025 8:25pm Hx of coronary artery bypass graft inactive February 12, 2025 8:25pm Respiratory failure acute 2024 8:25pm Chronic kidney disease chronic [facility] 2024 8:25pm [facility] Work Phone: Evaluation note* Diagnosis Onset Date Resolution Status Admit Date Acute dyspnea acute February 10:38am Acute heart failure acute [facility] 2024 10:38am Acute respiratory failure wi th hypoxia acute February 23 10:38am Anemia acute February 23, 2 025 10:38am CHF (congestive heart failure) acute February 23, 2025 10:38am History of aortic stenosis acute February 23, 2025 10:38am History of diabetes mellitus acute February 23, 2025 10:38am Hypoxia acute February 23, 025 10:38am Chronic kidney disease chronic [facility] 2024 10:38am [facility] Work Phone: Evaluation note* Diagnosis Pre-operative cardiovascular examination- Primary Nonrheumatic aortic valve stenosis Stage 4 chronic kidney disease (HCC) documented [facility]* Diagnosis Pre-operative cardiovascular examination- Primary Nonrheumatic aortic valve stenosis Nonrheumatic aortic valve stenosis- Primary Nonrheumatic aortic valve stenosis documented [facility]* Diagnosis Nonrheumatic aortic valve stenosis- Primary Shortness of breath- Primary Nonrheumatic aortic valve stenosis documented [facility]* Diagnosis Nonrheumatic aortic valve stenosis- Primary Pre-operative cardiovascular examination Nonrheumatic aortic valve stenosis Nonrheumatic aortic valve stenosis documented in this encounter [facility]* Diagnosis Nonrheumatic aortic valve stenosis- Primary Shortness of breath Nonrheumatic aortic valve stenosis documented in this encounter [facility]* Diagnosis Nonrheumatic aortic valve stenosis- Primary Severe aortic stenosis- Primary Aortic valve disorders Nonrheumatic aortic valve stenosis documented in this encounter [facility]* Diagnosis Nonrheumatic aortic valve stenosis- Primary Severe aortic stenosis Aortic valve disorders Severe aortic stenosis Aortic valve disorders Nonrheumatic aortic valve stenosis documented in this encounter [facility]* Diagnosis Severe aortic stenosis- Primary Aortic valve disorders [facility] Vandana [facility] Note Date/Time February 12, 2025 9:0 1pm [facility] Medical Records Department [address] [place] [address] H&P Exam - Hospitalist 02/12/252012 MR#: [id number] Acct: [id number] Name: SAM VIDALES Rep #:[id number] : 1950 74 From: Vandana Bro MD PCP: [facility] Status:ADM IN Location: ICU ICU01-1 HPI - General General Date of Admission: 02/12/25 Date of Service: 02/12/25 Chief Complaint: Fatigue, malaise, acute dyspnea/respiratory distress. HPI Narrative The patient is a 74 y/o M [facility] patient w/ PMHx: CAD s/p CABG x 2016, CKD stage IV, HTN, HLD, Valvular Heart Disease, Diabetes mellitus type II and who [facility] 02[facility]12[facility]2025 with general malaise and fatigue over the last several days brought in by EMS who noted upon their arrival at his home his pulse oximeter was 80% and he was very diaphoretic and pale and respiratory failure with intubation initiated with then transition to the ED for further evaluation. who is present does report that he has beenvery active for the last 2 to 3 days including several rounds of golf and carrying heavy salt bags with only complaint of generalized fatigue and malaise as well as sore muscles. Workup in the ED included T97.5, heart rate 79, BP 159/100, respiratory rate 35, initially 86% on a nonrebreather 15 L eventually intubated with most recent repeat vitals T97.4, heart rate 62, BP 93/49, respiratory rate 20, 99% ventilated, CBC with WC 11.7, hemoglobin 12.2, MCV 91.2, platelet 181 with left shift, unremarkable coags, ABG with pH 7.15, [id number], O2 saturation 100%, pCO2 60.7, PO230 ventilated, CMP with At 18.1, anion gap16, BUN/creatinine 56/3.36, GFR 18, glucose 224, AST/LT 71/80, initial troponin 146, lactic acid 1.2, NT proBNPII pending upon requested evaluation patient, urinalysis with cloudy appearing urine, specific gravity 1.015, protein 100, glucose thousand, negative ketone, occult blood 25, negative nitrite, negative leukocyte esterase with remainder of urinalysis pending upon request evaluation of patient, chest x-ray with appearance of mild vascular congestion with no obvious acute infiltrate, EKG with sinus rhythm with no acute evidence of ischemia with depressions in lead 4 and 5 no comparison, blood culture x 2 pending per ED, urine culture pending per ED, rapid SARS COVID/flu/RSV PCR negative. In the ED patient administered succinylcholine 100 mg IV x 1, etomidate 20 mg IV x 1, fentanyl 50 mcg IV x 1, Ativan a total of 2 mg IV in addition to initiated on propofol drip. HOME MEDICATIONS: Atorvastatin 40 mg nightly Aspirin 81 mg daily Ezetimibe 10 mg daily Insulin glargine 35 units subcu daily Isosorbide mononitrate extended release 30 mg p.o. daily Minoxidil 5 mg daily Coreg 25 mg p.o. twice daily Chlorthalidone 25 mg daily Empagliflozin 12.5 mg daily Dulaglutide 0.75 mg/0.5 mL 0.75 mg subcu weekly [facility] Medical History Former tobacco use Valvular heart disease CKD (chronic kidney disease), stage IV HLD (hyperlipidemia) HTN (hypertension) CAD (coronary artery disease) Medical History unable to obtain Allergy/AdvReac Type Severity Reaction Status Date / Time lisinopril AdvReac Mild Cough Verified 02/12/25 20:33 Family History (Updated 02/12/25 @ 20:[address] Vandana Bro MD) Sister Heart disease Hypertension Daughter Heart disease Hypertension Mother Heart disease Father Heart disease Family History unable to obtain Surgical History Hx of coronary artery bypass graft S/P laminectomy Surgical History unable to obtain Social History household members: spouse Smoking Status: Former smoker how long ago did patient quit smoking: Quit 1997. alcohol intake: current alcohol intake frequency: holidays/special occasions only substance use type: does not use ROS Review of Systems ROS Unobtainable: due to endotracheal tube Vital Signs Vital Signs Vital Signs: 02/12/25 18:45 02/12/25 18:49 02/12/25 18:50 Temperature 97.5 F L 97.5 F L Temperature Source Axillary Core Pulse Rate 79 63 Respiratory Rate 35 H 24 H Respiratory Effort Short of Breath Labored Accessory Muscle Use Retracting Respiratory Depth Deep Respiratory Pattern Tachypnea Blood Pressure 159/100 H 160/101 H Blood Pressure Mean 119 120 Pulse Ox 86 99 Oxygen Delivery Method Non-Rebreather Mechanical Ventilator Non-Rebreather Oxygen Flow Rate (L/min) 15 Fraction of Inspired Oxygen (FIO2) 02/12/25 18:51 02/12/25 18:55 02/12/25 19:19 Temperature 97.5 F L Temperature Source Core Pulse Rate 64 Respiratory Rate 17 Respiratory Effort Short of Breath Labored Accessory Muscle Use Respiratory Depth Deep Respiratory Pattern Tachypnea Blood Pressure 109/50 L Blood Pressure Mean 69 Pulse Ox 97 100 100 Oxygen Delivery Method Ambu-Bag Mechanical Ventilator Mechanical Ventilator Oxygen Flow Rate (L/min) Fraction of Inspired Oxygen (FIO2) 02/12/25 19:30 02/12/25 19:42 02/12/25 20:00 Temperature 97.5 F L 97.4 F L 97.3 F L Temperature Source Core Oral Core Pulse Rate 63 62 60 Respiratory Rate 21 H 20 H 23 H Respiratory Effort Respiratory Depth Respiratory Pattern Blood Pressure 101/54 L 93/49 L 86/38 L Blood Pressure Mean 69 63 54 Pulse Ox 100 99 97 Oxygen Delivery Method Room Air Room Air Mechanical Ventilator Oxygen Flow Rate (L/min) Fraction of Inspired Oxygen (FIO2) 60 Weight Weight: 179 lb 10.828 oz Body Mass Index (BMI) 25.7 Physical Exam Narrative Physical Examination: General: Intubated, sedated, laying in the ED bed, occasionally moving, currently no acute distress. Awake, alert, oriented x 3 and cooperative, seated upright in bed in no apparent distress. Skin: Normal color, normal turgor, no icterus, no cyanosis except occasional stage ecchymoses, abrasion. HEENT: AT/NC, EOM unable to be assessed well given intubated and sedated status,PERRLA, mildly dry MM, no carotid bruits, + JVD noted, ET tube in place. Lungs: Diminished, greater bases, currently intubated with symmetric rise, appreciated very mild distant rales at bases respiratory distress improved following intubation. Heart: Regular rate and rhythm; no gallop, rub audible. Abdomen: Soft, no obvious grimacing with palpation, distant BS, no obvious distention or HSM. Extremities: No cyanosis, no clubbing, no significant distal pitting edema noted. Neurological: Intubated, sedated, laying in the ED bed, occasionally moving, currently no acute distress. Awake, alert, oriented x 3 and cooperative, seated upright in bed in no apparent distress, cognitive function not baseline intact; pupils equally reactive to light and accommodation, cranial nerves unable to be assessed well given intubated sedated status, occasionally moving extremities asnoted, strength severely globally decreased. Psychiatric: Affect appears flat, intubated, sedated no acute evidence of depressive or anxiety feelings. Results Lab / Micro Data 02/12/25 18:30 02/12/25 18:30 Labs: Laboratory Results - last 24 hr 02/12/25 18:30: WBC 11.7 H, RBC 4.08 L, Hgb 12.2 L, Hct 37.2 L, MCV 91.2, MCH 29.9, MCHC 32.8, RDW Std Deviation 43.5, RDW Coeff of Samir 13.2, Plt Count 181, MPV 10.5, Immature Gran % (Auto) 0.600, Neut % (Auto) 70.0, Lymph % (Auto) 14.9 L, [place] % (Auto) 11.4 H, Eos % (Auto) 2.5, Baso % (Auto) 0.6, Absolute Neuts (auto) 8.2 H, Absolute Lymphs (auto) 1.75, Nucleated RBC % 0, PT 14.2, INR 1.1, APTT 30.4, Sodium 138, Potassium 4.6, Chloride 104, Carbon Dioxide 18.1 L, AnionGap 16 H, BUN 56 H, Creatinine 3.36 H, Estim Creat Clear Calc 19.61 L, Est GFR (MDRD) Non-Af 18 L, BUN/Creatinine Ratio 16.6, Glucose 224 H, Calcium 9.1, TotalBilirubin 0.55, AST 71 H, ALT 80 H, Alkaline Phosphatase 126, Troponin T High Sens 146 H*, Total Protein 7.8, Albumin 4.5, Globulin 3.3, Albumin/Globulin Ratio 1.4 02/12/25 19:00: Lactic Acid 1.2 02/12/25 19:37: Urine Color Straw, Urine Clarity Sl. Cloudy, Urine pH 5.0, Ur Specific [place] 1.015, Urine Protein 100 H, Urine Glucose (UA) 1000 H, Urine Ketones Negative, Urine Occult Blood 25 H, Urine Nitrite Negative, Urine Bilirubin Negative, Urine Urobilinogen Normal, Ur Leukocyte Esterase Negative, Urine RBC 0-5 SEEN, Urine WBC 0-5 SEEN, Ur Squamous Epith Cells 0-5 SEEN, Urine Bacteria 1+, Urine Mucus 0 SEEN Micro: Microbiology 02/12/25 19:17 Mucosa - Nose SARS-CoV-2, Influenza & RSV (PCR) - Final ABG Data ABG results: ABG 02/12/25 02/12/25 19:28 19:37 Specimen Type ART ART Sample Site R Radial Not entered pH 7.17 L* 7.15 L* Bicarbonate Actual 20.5 L 21.0 L Total CO2 22 23 Base Excess -8 L -8 L O2 Saturation 100 H 100 H O2 % 100.0 ABG pCO2 56.8 H 60.7 H ABG pO2 217 H 230 H Lu Test N/A Respiration Rate 14 O2 Delivery Device Adult Vent Not entered Vent Mode AC Not entered Tidal Volume 450.0 POC PEEP 5 Crit Call To/Read Back Yes Yes Blood Gas Notified Whom Dr Hendrickson Blood Gas Notified Time 19:30:20 Rhythm Strip Rhythm Strip: Sinus Rhythm Rate: 78 Ectopy: None Imaging Radiology Impression Chest X-Ray 02/12/25 19:01 IMPRESSION: Mild pulmonary vascular congestion. No definite focal consolidation. Reading Location: [facility] Assessment & Plan Assessment/Plan (1) Respiratory failure: PLAN: Plan The patient is a 74 [facility]/o [facility] w/ PMHx: CAD s/p CABG x 4 2016, CKD stage IV, HTN, HLD, Valvular Heart Disease, Diabetes mellitus type II and who [facility] on 02/12/2025 with general malaise and fatigue over the last several days brought in by EMS who noted upon their arrival at his home his pulse oximeter was 80% and he was very diaphoretic and pale and respiratory failure with intubation initiated with then transition to the ED for further evaluation. #1. 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 Echocardiogram requested. Additionally will obtain full respiratory viral panel, attempt to induce sputum and send for culture, plan for repeat chest x-ray in a.m. to assure no infectious etiology for this presentation but lower suspicion at this time. Will hold off on procalcitonin #2. Indeterminate cardiac enzyme, suspect demand associated given acute hypoxicrespiratory failure as noted #1: EKG in ED sinus rhythm with no acute evidence of ischemia, CXR w/ evidence of vascular congestion, initial trop 146. Will maintain on a monitored bed to assure no acute myocardial infarction with serialcardiac enzymes and EKGs. Magnesium level requested. FLP in AM. Echocardiogram requested. Will administer full-strength aspirin x 1 and continue baby daily. #3. Acute Renal Insufficiency on CKD stage IV: Likely related with #1, admission BUN/Cr 56/3.36, GFR 18, prior baseline creatinine was noted 07/2024 BUN/creatinine 42/2.85 with GFR 23 at that time, will hold nephrotoxic medication aside from diuresis given his presentation, resume once clinically appropriate, trend CMP. #4. Transaminitis, potentially acute: Admission CMP with AST/ALT 271/80, no clear comparison but certainly given presentation could be elevated, will continue to treat as noted above, trend CMP. #5. Normocytic anemia, appears new in chronicity: Admission CBC with [id number], MCV 91.2, prior labs from [facility] with normal level as of 07/2024, will continue to trend CBC. #6. CAD: Status post CABG x 4 FLORES-LAD, Free GWEN-OM1 Y graft off FLORES, SVG-OM2, SVG-PLB 08/06/2016, will continue aspirin, not on statin therapy but on ezetimibe, holding beta-oneyda given hypotensive presentation, add back once appropriate, not on ALEXANDREA inhibitor secondary to cough related side effect, not onARB likely secondary to renal disease. #7. Hypertension: Given hypotension with initiation of propofol attempted to transition to fentanyl only, holding hypertensive regimen aside from attempt to utilize IV diuretic therapy. #8. Hyperlipidemia: Per current list does not appear to be on statin therapy, clarified to be certain, noted to be on ezetimibe only. FLP in AM. #9. Valvular Heart disease: Noted history of aortic disease, unable to obtain recent ECHO results, but last noted EF possibly 60%, will obtain repeat ECHO as noted. #10. Diabetes mellitus type II: Hold oral home regimen, continue home insulin regimen, n.p.o. status with every 6 hours accu checks w/ ISS. #11. Former tobacco use: Encourage continued tobacco cessation. #12. DVT prophylaxis: Heparin however transition to drip if significant rise incardiac enzymes. #13. CODE status: Patient JUSTINE is his who is and living will is currentlyin place. Discussed CODE status at length including difference between FULL code, DNR-CCA and DNR-CC status. Following discussions about the differences in these status, requested Full Code status. Advanced Care Planning Face to Face Time: 16 minutes. Charges/Coding Visit Charges Inpatient E&M: 34439 Init Hosp L3 Procedures Hospitalists Procedures: 86399 Advncd Care Plan 30 Min 02/12/25 2101 <Electronically signed by Vandana Bro MD> Cosigner Signature (if applicable): CC: Dr. Vandana Bro MD; [facility]~ Signed [facility] Work Phone: Reason for referral (narrative)* Outpatient Procedure (Routine) - Closed Specialty Diagnoses / Procedures Referred By Liza nur Referred To Contact [facility] Diagnoses Gastroesophageal reflux disease, unspecified whether esophagitis present Iron deficiency anemia, unspecified iron deficiency anemia type Procedures COLONOSCOPY DIAGNOSTIC COLONOSCOPY FLX DX W/COLLJ SPEC WHEN Jess Medina MD [address] [place] [address] [facility] [address] [place] [address] Referral ID Status Reason Start Date Expiration Date V isits Requested Visits Authorized [id number] Closed Auto-Generate d Referral 02/22/2022 02/22/2023 1 1 * Outpatient Procedure (Routine) - Closed Specialty Diagnoses / Procedures Referred By Liza nur Referred To Contact [facility] Diagnoses Gastroesophageal reflux disease, unspecified whether esophagitis present Iron deficiency anemia, unspecified iron deficiency anemia type Procedures EGD DIAGNOSTIC ESOPHAGOGASTRODUODENOSC OPY TRANSORAL DIAGNOSTIC Jess Baker MD [address] [place] [address] [address] Referral ID Status Reason Start Date Expiration Date V isits Requested Visits Authorized [id number] Closed Auto-Generate d Referral 02/22/2022 02/22/2023 1 1 [facility] (narrative)No reason for referral information availableW[facility] Work Phone: Reason for visit Narrative* Outpatient Procedure (Routine) - Closed Specialty Diagnoses / Procedures Referred By Liza nur Referred To Contact [facility] Diagnoses Gastroesophageal reflux disease, unspecified whether esophagitis present Iron deficiency anemia, unspecified iron deficiency anemia type Procedures COLONOSCOPY DIAGNOSTIC COLONOSCOPY FLX DX W/COLLJ SPEC WHEN PFRMD Jess Baker MD [address] [place] [address] [address] Referral ID Status Reason Start Date Expiration Date V isits Requested Visits Authorized [id number] Closed Auto-Generate d Referral 02/22/2022 02/22/2023 1 1 [facility] for visit Narrative* Imaging (Routine) - Closed Specialty Diagnoses / Procedures Referred By Liza nur Referred To Contact Radiology Diagnoses Pre-operative cardiovascular examination Nonrheumatic aortic valve stenosis Procedures CTA Angiogram TAVR Carmen Donovan, [employer] [address] [address] Phone: tel: fax: Referral ID Status Reason Start Date Expiration Date Visits Re quested Visits Authorized [id number] Closed 03/09/2025 03/09/2026 1 1 [facility] N[facility]* Auth/Cert (Routine) Specialty Diagnoses / Procedures Referred By Contac t Referred To Contact Diagnoses Nonrheumatic aortic valve stenosis Procedures TRANSCATHETER AORTIC VALVE REPLACEMENT, TRANSTHORACIC ECHOCARDIOGRAM TRANSCATHETER AORTIC VALVE REPLACEMENT (TAVR) - OR Celestine Alvarez MD [address] [place] [address] Phone: tel: fax: [facility] [address] [place] [address] Phone: tel: Referral ID Status Reason Start Date Expiration Date Visits Re quested Visits Authorized [id number] 1 1 [facility] Purpose Family History No Family History Records Found Relationship Condition Age at Onset Recorded Date/T jarek sister Cardiac disease Unknown daughter Cardiac disease Unknown Relationship Condition Age at Onset Recorded Date/T jarek sister Cardiac disease Unknown Hypertension Unknown daughter Cardiac disease Unknown mother Cardiac disease Unknown father Cardiac disease Unknown Relationship Condition Age at Onset Recorded Date/T jarek sister Cardiac disease Unknown daughter Cardiac disease Unknown Hypertension Unknown mother Cardiac disease Unknown father Cardiac disease Unknown Advance Directives No Advanced Directives Records Found Advance Directive Response Recorded Date/ Time Advance Directives Yes July 26, 2016 8:35am Living Will Yes November 14, 2016 1 0:03pm Power of Puff Ironer Yes November 14, 2016 10:03pm Documents on File Type Date Recorded Patient Toll Booth Operator Expl anation Advance Directive(s) 11/26/2017 6:20 PM Documents on File Type Date Recorded Patient Toll Booth Operator Expl anation Advance Directive(s) 11/26/2017 6:20 PM Advance Directive Response Recorded Date/ Time Do you have a Healthcare Power of Puff Ironer? No February 12, 2025 7:34pm Advance Directive Response Recorded Date/ Time Do you have a Healthcare Power of Puff Ironer? Yes February 23, 2025 8:42am Advance Directives Yes July 26, 2016 8:35am Advance Directive Response Recorded Date/ Time Do you have a Healthcare Power of Puff Ironer? Yes February 23, 2025 11:25am Advance Directives Yes July 26, 2016 8:35am Advance Directive Response Recorded Date/ Time Do you have a Healthcare Power of Puff Ironer? No February 12, 2025 7:34pm Do you have a Healthcare Power of Puff Ironer? Yes February 23, 2025 11:25am Advance Directives Yes July 26, 2016 8:35am Date Activated Date Inactivated Comments 03/29/2025 10:09 AM 2025 3:25 PM Chief Complaint and Reason for Visit Chief Complaint PRE-OP PRE-OP 10 M FU EORDER Reason for Visit Essential hypertensi on Atherosclerosis of coronary artery of [place] heart without angina pectoris H/O coronary artery bypass surgery Hyperlipidemia Non-rheumatic aortic stenosis Chief Complaint PRE-OP PRE-OP 10 M FU EORDER CAD CABG CAD CABG Reason for Visit Essential hypertensi on Atherosclerosis of coronary artery of [place] heart without angina pectoris H/O coronary artery bypass surgery Hyperlipidemia Non-rheumatic aortic stenosis Chief Complaint PRE-OP PRE-OP 10 M FU EORDER CAD CABG CAD CABG EORDERS Reason for Visit Essential hypertensi on Atherosclerosis of coronary artery of [place] heart without angina pectoris H/O coronary artery bypass surgery Hyperlipidemia Non-rheumatic aortic stenosis Chief Complaint 6 M FU EVALUATE Amb Documentation Reason for Visit Essential hypertensi on Atherosclerosis of coronary artery of [place] heart without angina pectoris Hyperlipidemia Non-rheumatic aortic stenosis Chief Complaint Admit Date RESPIRATORY FAILURE, HF EXACERBATION Feb 8:25pm Reason for Visit Admit Date Congestive heart failure February 12 8:25pm History of aortic stenosis February 12, 025 8:25pm History of diabetes mellitus February 12, 2025 8:25pm Hx of coronary artery bypass graft Augus t 2024 8:25pm Respiratory failure February 12, 2025 8:2 5pm Chronic kidney disease February 12, 2025 8:25pm Chief Complaint Admit Date RESPIRATORY FAILURE, HF EXACERBATION Feb 8:25pm RESPIRATORY FAILURE, HF EXACERBATION Feb 2:21pm RESPIRATORY FAILURE, HF EXACERBATION Feb 1:28pm RESPIRATORY FAILURE, HF EXACERBATION Feb 2:07pm RESPIRATORY FAILURE, HF EXACERBATION Feb 7:57am RESPIRATORY FAILURE, HF EXACERBATION Feb 11:15am RESPIRATORY FAILURE, HF EXACERBATION Feb 6:43pm RESPIRATORY FAILURE, HF EXACERBATION Feb 9:14am RESPIRATORY FAILURE, HF EXACERBATION Feb 2024 12:16pm RESPIRATORY FAILURE, HF EXACERBATION Feb 2024 5:29pm Reason for Visit Admit Date JUAN (acute kidney injury) February 12 8:25pm Congestive heart failure February 12 8:25pm History of aortic stenosis February 12, 025 8:25pm History of diabetes mellitus February 12, 2025 8:25pm Hx of coronary artery bypass graft Augus t 2024 8:25pm Respiratory failure February 12, 2025 8:2 5pm Chronic kidney disease February 12, 2025 8:25pm Chief Complaint Admit Date ACUTE HYPOXIC RESPIRATORY FAILURE February 23, 2025 10:38am Reason for Visit Admit Date Acute dyspnea February 23, 2025 10 :38am Acute heart failure February 23, 2025 10 :38am Acute respiratory failure with hypoxia A ugust 2024 10:38am Anemia February 23, 2025 10 :38am CHF (congestive heart failure) February 232024 10:38am History of aortic stenosis February 23, 2025 10:38am History of diabetes mellitus February 10:38am Hypoxia February 23, 2025 10 :38am Chronic kidney disease February 23, 2025 10:38am Chief Complaint Admit Date ACUTE HYPOXIC RESPIRATORY FAILURE February 23, 2025 10:38am ACUTE HYPOXIC RESPIRATORY FAILURE February 24, 2025 11:00am ACUTE HYPOXIC RESPIRATORY FAILURE February 25, 2025 2:13pm Chief Complaint Admit Date RESPIRATORY FAILURE, HF EXACERBATION Feb 2024 8:25pm RESPIRATORY FAILURE, HF EXACERBATION Feb 2024 2:21pm RESPIRATORY FAILURE, HF EXACERBATION Feb 2024 1:28pm RESPIRATORY FAILURE, HF EXACERBATION Feb 2024 2:07pm RESPIRATORY FAILURE, HF EXACERBATION Feb 2024 7:57am RESPIRATORY FAILURE, HF EXACERBATION Feb 2024 11:15am RESPIRATORY FAILURE, HF EXACERBATION Feb t 2024 6:43pm RESPIRATORY FAILURE, HF EXACERBATION Feb 2024 9:14am RESPIRATORY FAILURE, HF EXACERBATION Feb t 2024 12:16pm RESPIRATORY FAILURE, HF EXACERBATION Feb t 2024 5:29pm ACUTE HYPOXIC RESPIRATORY FAILURE February 23, 2025 10:38am ACUTE HYPOXIC RESPIRATORY FAILURE February 24, 2025 11:00am ACUTE HYPOXIC RESPIRATORY FAILURE February 25, 2025 2:13pm S/P [facility] 02/17March 03, 2025 9: 57am Reason for Visit Admit Date JUAN (acute kidney injury) February 12 8:25pm Chronic kidney disease February 12, 2025 8:25pm Congestive heart failure February 12 8:25pm History of aortic stenosis February 12, 025 8:25pm History of diabetes mellitus February 12, 2025 8:25pm Hx of coronary artery bypass graft Augus t 2024 8:25pm Respiratory failure February 12, 2025 8:2 5pm Acute dyspnea February 23, 2025 10 :38am Acute heart failure February 23, 2025 10 :38am Acute respiratory failure with hypoxia A ugust 2024 10:38am Anemia February 23, 2025 10 :38am CHF (congestive heart failure) February 232024 10:38am History of aortic stenosis February 23, 2025 10:38am History of diabetes mellitus February 10:38am Hypoxia February 23, 2025 10 :38am Chronic kidney disease February 23, 2025 10:38am Essential hypertension March 03, 2025 9:57am Insulin dependent diabetes mellitus 2024 9:57am 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, moderate February 062024 9:57am Atherosclerosis of coronary artery [place] heart without angina pectoris March 03, 2025 9:57am Chronic kidney disease (CKD) February 9:57am Hyperlipidemia March 03, 2025 9: 57am Reason for Visit Admit Date JUAN (acute kidney injury) February 12 8:25pm Chronic kidney disease February 12, 2025 8:25pm Congestive heart failure February 12 8:25pm History of aortic stenosis February 12, 025 8:25pm History of diabetes mellitus February 12, 2025 8:25pm Hx of coronary artery bypass graft Augus t 2024 8:25pm Respiratory failure February 12, 2025 8:2 5pm Acute dyspnea February 23, 2025 10 :38am Acute heart failure February 23, 2025 10 :38am Acute respiratory failure with hypoxia A ugust 2024 10:38am Hypoxia February 23, 2025 10 :38am Anemia February 23, 2025 10 :38am CHF (congestive heart failure) February 232024 10:38am Chronic kidney disease February 23, 2025 10:38am History of aortic stenosis February 23, 2025 10:38am History of diabetes mellitus February 10:38am Essential hypertension March 03, 2025 9:57am Insulin dependent diabetes mellitus Augu 2024 9:57am 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, moderate February 062024 9:57am Atherosclerosis of coronary artery of [place] heart without angina pectoris March 03, 2025 9:57am Chronic kidney disease (CKD) February 9:57am Hyperlipidemia March 03, 2025 9: 57am Reason for Referral Specialty Diagnoses / Procedures Referred By Liza nur Referred To Contact CT IMAGING Diagnoses Gastroesophageal reflux disease, unspecified whether esophagitis present Iron deficiency anemia, unspecified iron deficiency anemia type Abdominal hernia without obstruction and without gangrene, recurrence not specified, unspecified hernia type Procedures CT ABD/PEL WO IVCON CT ABD & PELVIS W/O CONTRAST Jess Baker MD [address] [place] [address] Ct Imaging Referral ID Status Reason Start Date Expiration Date V isits Requested Visits Authorized [id number] Closed Auto-Generate d Referral 02/22/2022 03/24/2023 1 1 Specialty Diagnoses / Procedures Referred By Liza nur Referred To Contact [facility] Diagnoses Gastroesophageal reflux disease, unspecified whether esophagitis present Iron deficiency anemia, unspecified iron deficiency anemia type Procedures COLONOSCOPY DIAGNOSTIC COLONOSCOPY FLX DX W/COLLJ SPEC WHEN PFRMD Jess Baker MD [address] [place] [address] [facility] [address] [place] [address] Referral ID Status Reason Start Date Expiration Date Visits Requested Visits Authorized [id number] Authorized Auto-Generat ed Referral 02/22/2022 02/22/2023 1 1 Specialty Diagnoses / Procedures Referred By Liza nur Referred To Contact [facility] Diagnoses Gastroesophageal reflux disease, unspecified whether esophagitis present Iron deficiency anemia, unspecified iron deficiency anemia type Procedures EGD DIAGNOSTIC ESOPHAGOGASTRODUODENOSC OPY TRANSORAL DIAGNOSTIC Jess Baker MD [address] [place] [address] [facility] [address] [place] [address] Referral ID Status Reason Start Date Expiration Date Visits Requested Visits Authorized [id number] Authorized Auto-Generat ed Referral 02/22/2022 02/22/2023 1 1 Medications Administered Section Inactive Administered Medications - up to 3 most recent administrations Medication Order MAR Action Action Date Dose Rate Site benzocaine 20% 1 [place] (TOPEX) 1 [place], TOPICAL, DIRECTED, Starting on Sat07/24/22 at 0800, Until Sat07/24/22 at 1159, DOSING DIRECTED BY PHYSICIAN FOR PROCEDURAL SEDATION ONLY - Pharmaceutical Waste: Aerosol -, Intraprocedure Given 07/24/2022 8:57 AM EST 5 Sprays fentaNYL 50 mcg/mL 25-100 mcg injection (SUBLIMAZE) 25-100 mcg, INTRAVENOUS, DIRECTED, Starting on Sat07/24/22 at 0800, Until Sat07/24/22 at 1159, DOSING DIRECTED BY PHYSICIAN FOR PROCEDURAL SEDATION ONLY, Intraprocedure Given 07/24/2022 8:30 AM EST 25 mcg Given 07/24/2022 8:15 AM EST 25 mcg Given by LIP 07/24/2022 7:59 AM EST 50 mcg lactated ringers iv infusion 30 mL/hr, INTRAVENOUS, CONTINUOUS, Starting on Sat07/24/22 at 0730, Until Sat07/24/22 at 0906, Preprocedure New Bag/Syringe/Bottle 07/24/2022 7:30 AM EST 30 mL/hr 30 mL/hr Wrist, Right midazolam 1-5 mg injection (VERSED) 1-5 mg, INTRAVENOUS, DIRECTED, Starting on Sat07/24/22 at 0800, Until Sat07/24/22 at 1159, DOSING DIRECTED BY PHYSICIAN FOR PROCEDURAL SEDATION ONLY, Intraprocedure Given 07/24/2022 8:25 AM EST 1 mg Given 07/24/2022 8:15 AM EST 1 mg Given 07/24/2022 7:59 AM EST 3 mg Additional Source Comments (unrecognized sect ion and content) No Status Records FoundNo Status Records FoundNo Status Records FoundNo Status Records FoundNo Status Records Found INFORMATION SOURCE (unrecogn ized section and content) DATE CREATED AUTHOR 01/01/2018 [facility] DATE CREATED AUTHOR AUTHOR'S ORGANIZ ATION 08/26/2022 [facility] DATE CREATED AUTHOR AUTHOR'S ORGANIZ ATION 02/24/2025 [facility] DATE CREATED AUTHOR AUTHOR'S ORGANIZ ATION 03/18/2025 [facility] DATE CREATED AUTHOR AUTHOR'S ORGANIZ ATION 04/02/2025 [facility] Source Comments (unrecognize d section and content) In the event this informatio n is protected by the Federal Confidentiality of Alcohol and Drug Abuse Patient Records regulations: The Federal rules restrict any use of the information to criminally investigate or prosecute any alcohol or drug abuse patient.[facility] RehabilitationIn the event this information is protected by the Federal Confidentiality of Alcohol and Drug Abuse Patient Records regulations: The Federal rules restrict any use of the information to criminally investigate or prosecute any alcohol or drug abuse patient.[facility] RehabilitationIn the event this information is protected by the Federal Confidentiality of Alcohol and Drug Abuse Patient Records regulations: The Federal rules restrict any use of the information to criminally investigate or prosecute any alcohol or drug abuse patient.[facility] RehabilitationIn the event this information is protected by the Federal Confidentiality of Alcohol and Drug Abuse Patient Records regulations: The Federal rules restrict any use of the information to criminally investigate or prosecute any alcohol or drug abuse patient.[facility] RehabilitationIn the event this information is protected by the Federal Confidentiality of Alcohol and Drug Abuse Patient Records regulations: The Federal rules restrict any use of the information to criminally investigate or prosecute any alcohol or drug abuse patient.[facility] RehabilitationIn the event this information is protected by the Federal Confidentiality of Alcohol and Drug Abuse Patient Records regulations: The Federal rules restrict any use of the information to criminally investigate or prosecute any alcohol or drug abuse patient.[facility] RehabilitationIn the event this information is protected by the Federal Confidentiality of Alcohol and Drug Abuse Patient Records regulations: The Federal rules restrict any use of the information to criminally investigate or prosecute any alcohol or drug abuse patient.[facility] RehabilitationIn the event this information is protected by the Federal Confidentiality of Alcohol and Drug Abuse Patient Records regulations: The Federal rules restrict any use of the information to criminally investigate or prosecute any alcohol or drug abuse patient.[facility] RehabilitationIn the event this information is protected by the Federal Confidentiality of Alcohol and Drug Abuse Patient Records regulations: The Federal rules restrict any use of the information to criminally investigate or prosecute any alcohol or drug abuse patient.[facility] RehabilitationIn the event this information is protected by the Federal Confidentiality of Alcohol and Drug Abuse Patient Records regulations: The Federal rules restrict any use of the information to criminally investigate or prosecute any alcohol or drug abuse patient.[facility] RehabilitationIn the event this information is protected by the Federal Confidentiality of Alcohol and Drug Abuse Patient Records regulations: The Federal rules restrict any use of the information to criminally investigate or prosecute any alcohol or drug abuse patient.[facility] RehabilitationIn the event this information is protected by the Federal Confidentiality of Alcohol and Drug Abuse Patient Records regulations: The Federal rules restrict any use of the information to criminally investigate or prosecute any alcohol or drug abuse patient.[facility] Reason for Visit (unrecogniz ed section and content) Reason Comments Radiology CT Specialty Diagnoses / Procedures Referred By Liza nur Referred To Contact CT IMAGING Diagnoses Gastroesophageal reflux disease, unspecified whether esophagitis present Iron deficiency anemia, unspecified iron deficiency anemia type Abdominal hernia without obstruction and without gangrene, recurrence not specified, unspecified hernia type Procedures CT ABD/PEL WO IVCON CT ABD & PELVIS W/O CONTRAST Jess Baker MD [address] [facility] [place] [address] Ct Imaging Referral ID Status Reason Start Date Expiration Date V isits Requested Visits Authorized [id number] Closed Auto-Generate d Referral 02/22/2022 03/24/2023 1 1 Reason Comments Consult Hernia, constipation Reason Comments Patient Question CT scan results Reason Comments Follow Up Ct scan Reason Comments Patient Question Question about colon oscopy prep Reason Comments Consult Post up colonoscopy Reason Comments Consult Reason Comments Request for outside medical records Reason Comments Results, Lab Reason Comments New Patient Cardiac Valve Problem Heart valve clinic Reason Comments New Patient Cardiac Valve Problem Heart valve clinic Care Teams (unrecognized sec tion and content) Team Status: Active Member Role/Relationship Status Dates [facility] Primary Care Provider Active Team Status: Inactive Member Role/Relationship Status Dates [facility] Primary Care Provider Active Start: February 23, 2025 End: February 25, 2025 Dr. Ayaz Hendrickson MD Emergency Provider Active S tart: February 23, 2025 End: February 25, 2025 Dr. Lana Menjivar MD Admit Provider Active St art: February 23, 2025 End: February 25, 2025 Dr. Lana Menjivar MD Attending Provider Active Start: February 23, 2025 End: February 25, 2025 Dr. Sunshine Nesbitt MD Other Provider Active Start: February 23, 2025 End: February 25, 2025 Dr. Rah Mary MD Other Provider Active Start : February 23, 2025 Dr. Sunshine Nesbitt MD Other Provider Active Start: February 23, 2025 Team Status: Active Member Role/Relationship Status Dates [facility] Provider Active Start: February 24, 2025 Dr. Ayaz Hendrickson MD Emergency Provider Active S tart: February 24, 2025 Dr. Lana Menjivar MD Admit Provider Active St art: February 24, 2025 Dr. Lana Menjivar MD Attending Provider Active Start: February 24, 2025 Dr. Lana Menjivar MD Other Provider Active St art: February 24, 2025 Dr. Sunshine Nesbitt MD Other Provider Active Start: February 24, 2025 Team Status: Active Member Role/Relationship Status Dates [facility] Provider Active Start: February 25, 2025 Dr. Ayaz Hendrickson MD Emergency Provider Active S tart: February 25, 2025 Dr. Lana Menjivar MD Admit Provider Active St art: February 25, 2025 Dr. Lana Menjivar MD Attending Provider Active Start: February 25, 2025 Dr. Lana Menjivar MD Other Provider Active St art: February 25, 2025 Dr. Sunshine Nesbitt MD Other Provider Active Start: February 25, 2025 Team Status: Active Member Role/Relationship Status Dates [facility] Provider Active Start: February 23, 2025 Dr. Ayaz Hendrickson MD Emergency Provider Active S tart: February 23, 2025 Dr. Lana Menjivar MD Admit Provider Active St art: February 23, 2025 Dr. Lana Menjivar MD Attending Provider Active Start: February 23, 2025 Team Status: Inactive Member Role/Relationship Status Dates Dr. Ayaz Hendrickson MD Emergency Provider Active S tart: February 12, 2025 End: February 17, 2025 [facility] Primary Care Provider Active Start: February 12, 2025 End: February 17, 2025 Dr. Vandana Bro MD Admit Provider Active St art: February 12, 2025 End: February 17, 2025 Dr. Vandana Bro MD Other Provider Active St art: February 12, 2025 End: February 17, 2025 Dr. Lana Menjivar MD Attending Provider Active Start: February 12, 2025 End: February 17, 2025 Dr. Deanne Medley MD Other Provider Active Star t: February 12, 2025 End: February 17, 2025 Dr. Harvey Mckeon MD Other Provider Active Start: February 12, 2025 End: February 17, 2025 Dr. Steven Boyd MD Other Provider Active Start: February 12, 2025 End: February 17, 2025 Dr. Toi David MD Other Provider Active Star t: February 12, 2025 End: February 17, 2025 Dr. Boom Garg DO Other Provider Active Start : February 12, 2025 End: February 17, 2025 Dr. Jony Steel MD Other Provider Active Sta rt: February 12, 2025 End: February 17, 2025 Dr. Avery Gaona MD Other Provider Active St art: February 12, 2025 End: February 17, 2025 Dr. Carter Tripp MD Other Provider Active S tart: February 12, 2025 End: February 17, 2025 Dr. Mikayla Chavez MD Other Provider Active Start: February 12, 2025 End: February 17, 2025 Dr. Jesus Grant MD Other Provider Active Start : February 12, 2025 End: February 17, 2025 Dr. Nir Mccarthy MD Other Provider Active Start: February 12, 2025 End: February 17, 2025 Dr. Cole Christie MD Other Provider Active Start : February 12, 2025 End: February 17, 2025 Dr. Juliet Sapp MD Other Provider Active Star t: February 12, 2025 End: February 17, 2025 Dr. Ирина Herrera MD Other Provider Active Sta rt: February 12, 2025 End: February 17, 2025 Dr. Teagan Enriquez MD Other Provider Active Sta rt: February 12, 2025 End: February 17, 2025 Dr. Johann Kern MD Other Provider Active Star t: February 12, 2025 End: February 17, 2025 Dr. Jakub Malone MD Other Provider Active St art: February 12, 2025 End: February 17, 2025 Dr. Isidoro Solitario MD Other Provider Active Star t: February 12, 2025 End: February 17, 2025 Dr. Merrick Jimenez DO Other Provider Active St art: February 12, 2025 End: February 17, 2025 Dr. Marcello Rubio MD Other Provider Active Start: February 12, 2025 End: February 17, 2025 Dr. Sonya Vazquez MD Other Provider Active St art: February 12, 2025 End: February 17, 2025 Dr. Juliocesar Cao DO Other Provider Active Start: February 12, 2025 End: February 17, 2025 Dr. Markell Romo MD Other Provider Active Star t: February 12, 2025 End: February 17, 2025 Dr. Jan Yen MD Other Provider Active Sta rt: February 12, 2025 End: February 17, 2025 Dr. Amber Bryant MD Other Provider Active Start: February 12, 2025 End: February 17, 2025 Team Status: Active Member Role/Relationship Status Dates [facility] Primary Care Provider Active Start: February 13, 2025 Dr. Deanne Medley MD Attending Provider Active Start: February 13, 2025 Team Status: Active Member Role/Relationship Status Dates Dr. Ayaz Hendrickson MD Emergency Provider Active S tart: February 13, 2025 [facility] Primary Care Provider Active Start: February 13, 2025 Dr. Vandana Bro MD Admit Provider Active St art: February 13, 2025 Dr. Vandana Bro MD Other Provider Active St art: February 13, 2025 Dr. Deanne Medley MD Other Provider Active Star t: February 13, 2025 Dr. Harvey Mckeon MD Other Provider Active Start: February 13, 2025 Dr. Steven Boyd MD Other Provider Active Start: February 13, 2025 Dr. Toi David MD Other Provider Active Star t: February 13, 2025 Dr. Boom Garg DO Other Provider Active Start : February 13, 2025 Dr. Jony Steel MD Other Provider Active Sta rt: February 13, 2025 Dr. Avery Gaona MD Other Provider Active St art: February 13, 2025 Dr. Carter Tripp MD Other Provider Active S tart: February 13, 2025 Dr. Mikayla Chavez MD Other Provider Active Start: February 13, 2025 Dr. Jesus Grant MD Other Provider Active Start : February 13, 2025 Dr. Nir Mccarthy MD Other Provider Active Start: February 13, 2025 Dr. Cole Christie MD Other Provider Active Start : February 13, 2025 Dr. Juliet Sapp MD Other Provider Active Star t: February 13, 2025 Dr. Ирина Herrera MD Other Provider Active Sta rt: February 13, 2025 Dr. Teagan Enriquez MD Other Provider Active Sta rt: February 13, 2025 Dr. Johann Kern MD Other Provider Active Star t: February 13, 2025 Dr. Jakub Malone MD Other Provider Active St art: February 13, 2025 Dr. Isidoro Solitario MD Other Provider Active Star t: February 13, 2025 Dr. Merrick Jimenez DO Other Provider Active St art: February 13, 2025 Dr. Marcello Rubio MD Other Provider Active Start: February 13, 2025 Dr. Sonya Vazquez MD Other Provider Active St art: February 13, 2025 Dr. Juliocesar Cao DO Other Provider Active Start: February 13, 2025 Dr. Markell Romo MD Other Provider Active Star t: February 13, 2025 Dr. Jan Yen MD Other Provider Active Sta rt: February 13, 2025 Dr. Lana Menjivar MD Attending Provider Active Start: February 13, 2025 Dr. Lana Menjivar MD Other Provider Active St art: February 13, 2025 Team Status: Active Member Role/Relationship Status Dates Dr. Ayaz Hendrickson MD Emergency Provider Active S tart: February 14, 2025 [facility] Primary Care Provider Active Start: February 14, 2025 Dr. Vandana Bro MD Admit Provider Active St art: February 14, 2025 Dr. Vandana Bro MD Other Provider Active St art: February 14, 2025 Dr. Deanne Medley MD Attending Provider Active Start: February 14, 2025 Dr. Deanne Medley MD Other Provider Active Star t: February 14, 2025 Dr. Harvey Mckeon MD Other Provider Active Start: February 14, 2025 Dr. Steven Boyd MD Other Provider Active Start: February 14, 2025 Dr. Toi David MD Other Provider Active Star t: February 14, 2025 Dr. Boom Garg DO Other Provider Active Start : February 14, 2025 Dr. Jony Steel MD Other Provider Active Sta rt: February 14, 2025 Dr. Avery Gaona MD Other Provider Active St art: February 14, 2025 Dr. Carter Tripp MD Other Provider Active S tart: February 14, 2025 Dr. Mikayla Chavez MD Other Provider Active Start: February 14, 2025 Dr. Jesus Grant MD Other Provider Active Start : February 14, 2025 Dr. Nir Mccarthy MD Other Provider Active Start: February 14, 2025 Dr. Cole Christie MD Other Provider Active Start : February 14, 2025 Dr. Juliet Sapp MD Other Provider Active Star t: February 14, 2025 Dr. Ирина Herrera MD Other Provider Active Sta rt: February 14, 2025 Dr. Teagan Enriquez MD Other Provider Active Sta rt: February 14, 2025 Dr. Johann Kern MD Other Provider Active Star t: February 14, 2025 Dr. Jakub Malone MD Other Provider Active St art: February 14, 2025 Dr. Isidoro Solitario MD Other Provider Active Star t: February 14, 2025 Dr. Merrick Jimenez DO Other Provider Active St art: February 14, 2025 Dr. Marcello Rubio MD Other Provider Active Start: February 14, 2025 Dr. Sonya Vazquez MD Other Provider Active St art: February 14, 2025 Dr. Juliocesar Cao DO Other Provider Active Start: February 14, 2025 Dr. Markell Romo MD Other Provider Active Star t: February 14, 2025 Dr. Jan Yen MD Other Provider Active Sta rt: February 14, 2025 Dr. Lana Menjivar MD Other Provider Active St art: February 14, 2025 Team Status: Active Member Role/Relationship Status Dates Dr. Ayaz Hendrickson MD Emergency Provider Active S tart: February 14, 2025 [facility] Primary Care Provider Active Start: February 14, 2025 Dr. Vandana Bro MD Admit Provider Active St art: February 14, 2025 Dr. Vandana Bro MD Other Provider Active St art: February 14, 2025 Dr. Deanne Medley MD Other Provider Active Star t: February 14, 2025 Dr. Harvey Mckeon MD Other Provider Active Start: February 14, 2025 Dr. Steven Boyd MD Other Provider Active Start: February 14, 2025 Dr. Toi David MD Other Provider Active Star t: February 14, 2025 Dr. Boom Garg DO Other Provider Active Start : February 14, 2025 Dr. Jony Steel MD Other Provider Active Sta rt: February 14, 2025 Dr. Avery Gaona MD Other Provider Active St art: February 14, 2025 Dr. Carter Tripp MD Other Provider Active S tart: February 14, 2025 Dr. Mikayla Chavez MD Other Provider Active Start: February 14, 2025 Dr. Jesus Grant MD Other Provider Active Start : February 14, 2025 Dr. Nir Mccarthy MD Other Provider Active Start: February 14, 2025 Dr. Cole Christie MD Other Provider Active Start : February 14, 2025 Dr. Juliet Sapp MD Other Provider Active Star t: February 14, 2025 Dr. Ирина Herrera MD Other Provider Active Sta rt: February 14, 2025 Dr. Teagan Enriquez MD Other Provider Active Sta rt: February 14, 2025 Dr. Johann Kern MD Other Provider Active Star t: February 14, 2025 Dr. Jakub Malone MD Other Provider Active St art: February 14, 2025 Dr. Isidoro Solitario MD Other Provider Active Star t: February 14, 2025 Dr. Merrick Dhesi , DO Other Provider Active St art: February 14, 2025 Dr. Marcello Rubio MD Other Provider Active Start: February 14, 2025 Dr. Sonya Vazquez MD Other Provider Active St art: February 14, 2025 Dr. Juliocesar Cao DO Other Provider Active Start: February 14, 2025 Dr. Markell Romo MD Other Provider Active Star t: February 14, 2025 Dr. Jan Yen MD Other Provider Active Sta rt: February 14, 2025 Dr. Lana Menjivar MD Attending Provider Active Start: February 14, 2025 Dr. Lana Menjivar MD Other Provider Active St art: February 14, 2025 Dr. Amber Bryant MD Other Provider Active Start: February 14, 2025 Team Status: Active Member Role/Relationship Status Dates Dr. Ayaz Hendrickson MD Emergency Provider Active S tart: February 15, 2025 [facility] Primary Care Provider Active Start: February 15, 2025 Dr. Vandana Bro MD Admit Provider Active St art: February 15, 2025 Dr. Vandnaa Bro MD Other Provider Active St art: February 15, 2025 Dr. Deanne Medley MD Other Provider Active Star t: February 15, 2025 Dr. Harvey Mckeon MD Other Provider Active Start: February 15, 2025 Dr. Steven Boyd MD Other Provider Active Start: February 15, 2025 Dr. Toi David MD Other Provider Active Star t: February 15, 2025 Dr. Boom Garg DO Attending Provider Active S tart: February 15, 2025 Dr. Boom Garg DO Other Provider Active Start : February 15, 2025 Dr. Jony Steel MD Other Provider Active Sta rt: February 15, 2025 Dr. Avery Gaona MD Other Provider Active St art: February 15, 2025 Dr. Carter Tripp MD Other Provider Active S tart: February 15, 2025 Dr. Mikayla Chavez MD Other Provider Active Start: February 15, 2025 Dr. Jesus Grant MD Other Provider Active Start : February 15, 2025 Dr. Nir Mccarthy MD Other Provider Active Start: February 15, 2025 Dr. Cole Christie MD Other Provider Active Start : February 15, 2025 Dr. Juliet Sapp MD Other Provider Active Star t: February 15, 2025 Dr. Ирина Herrera MD Other Provider Active Sta rt: February 15, 2025 Dr. Teagan Enriquez MD Other Provider Active Sta rt: February 15, 2025 Dr. Johann Kern MD Other Provider Active Star t: February 15, 2025 Dr. Jakub Malone MD Other Provider Active St art: February 15, 2025 Dr. Isidoro Solitario MD Other Provider Active Star t: February 15, 2025 Dr. Merrick Jimenez DO Other Provider Active St art: February 15, 2025 Dr. Marcello Rubio MD Other Provider Active Start: February 15, 2025 Dr. Sonya Vazquez MD Other Provider Active St art: February 15, 2025 Dr. Juliocesar Cao DO Other Provider Active Start: February 15, 2025 Dr. Markell Romo MD Other Provider Active Star t: February 15, 2025 Dr. Jan Yen MD Other Provider Active Sta rt: February 15, 2025 Dr. Lana Menjivar MD Other Provider Active St art: February 15, 2025 Dr. Amebr Bryant MD Other Provider Active Start: February 15, 2025 Team Status: Active Member Role/Relationship Status Dates Dr. Ayaz Hendrickson MD Emergency Provider Active S tart: February 15, 2025 [facility] Primary Care Provider Active Start: February 15, 2025 Dr. Vandana Bro MD Admit Provider Active St art: February 15, 2025 Dr. Vandana Bro MD Other Provider Active St art: February 15, 2025 Dr. Deanne Medley MD Other Provider Active Star t: February 15, 2025 Dr. Harvey Mckeon MD Other Provider Active Start: February 15, 2025 Dr. Steven Boyd MD Other Provider Active Start: February 15, 2025 Dr. Toi David MD Other Provider Active Star t: February 15, 2025 Dr. Boom Garg DO Other Provider Active Start : February 15, 2025 Dr. Jony Steel MD Other Provider Active Sta rt: February 15, 2025 Dr. Avery Gaona MD Other Provider Active St art: February 15, 2025 Dr. Carter Tripp MD Other Provider Active S tart: February 15, 2025 Dr. Mikayla Chavez MD Other Provider Active Start: February 15, 2025 Dr. Jesus Grant MD Other Provider Active Start : February 15, 2025 Dr. Nir Mccarthy MD Other Provider Active Start: February 15, 2025 Dr. Cole Christie MD Other Provider Active Start : February 15, 2025 Dr. Juliet Sapp MD Other Provider Active Star t: February 15, 2025 Dr. Ирина Herrera MD Other Provider Active Sta rt: February 15, 2025 Dr. Teagan Enriquez MD Other Provider Active Sta rt: February 15, 2025 Dr. Johann Kern MD Other Provider Active Star t: February 15, 2025 Dr. Jakub Malone MD Other Provider Active St art: February 15, 2025 Dr. Isidoro Solitario MD Other Provider Active Star t: February 15, 2025 Dr. Merrick Jimenez DO Other Provider Active St art: February 15, 2025 Dr. Marcello Rubio MD Other Provider Active Start: February 15, 2025 Dr. Sonya Vazquez MD Other Provider Active St art: February 15, 2025 Dr. Juliocesar Cao DO Other Provider Active Start: February 15, 2025 Dr. Markell Romo MD Other Provider Active Star t: February 15, 2025 Dr. Jan Yen MD Other Provider Active Sta rt: February 15, 2025 Dr. Lana Menjivar MD Attending Provider Active Start: February 15, 2025 Dr. Lana Menjivar MD Other Provider Active St art: February 15, 2025 Dr. Amber Bryant MD Other Provider Active Start: February 15, 2025 Team Status: Active Member Role/Relationship Status Dates Dr. Ayaz Hendrickson MD Emergency Provider Active S tart: February 15, 2025 [facility] Primary Care Provider Active Start: February 15, 2025 Dr. Vandana Bro MD Admit Provider Active St art: February 15, 2025 Dr. Vandana Bro MD Other Provider Active St art: February 15, 2025 Dr. Lana Menjivar MD Other Provider Active St art: February 15, 2025 Dr. Deanne Medley MD Other Provider Active Star t: February 15, 2025 Dr. Harvey Mckeon MD Other Provider Active Start: February 15, 2025 Dr. Steven Boyd MD Other Provider Active Start: February 15, 2025 Dr. Toi David MD Other Provider Active Star t: February 15, 2025 Dr. Boom Garg DO Other Provider Active Start : February 15, 2025 Dr. Jony Steel MD Other Provider Active Sta rt: February 15, 2025 Dr. Avery Gaona MD Other Provider Active St art: February 15, 2025 Dr. Carter Tripp MD Other Provider Active S tart: February 15, 2025 Dr. Mikayla Chavez MD Other Provider Active Start: February 15, 2025 Dr. Jesus Grant MD Other Provider Active Start : February 15, 2025 Dr. Nir Mccarthy MD Other Provider Active Start: February 15, 2025 Dr. Cole Christie MD Other Provider Active Start : February 15, 2025 Dr. Juliet Sapp MD Other Provider Active Star t: February 15, 2025 Dr. Ирина Herrera MD Other Provider Active Sta rt: February 15, 2025 Dr. Teagan Enriquez MD Other Provider Active Sta rt: February 15, 2025 Dr. Johann Kern MD Other Provider Active Star t: February 15, 2025 Dr. Jakub Malone MD Other Provider Active St art: February 15, 2025 Dr. Isidoro Solitario MD Other Provider Active Star t: February 15, 2025 Dr. Merrick Jimenez DO Other Provider Active St art: February 15, 2025 Dr. Marcello Rubio MD Other Provider Active Start: February 15, 2025 Dr. Sonya Vazquez MD Other Provider Active St art: February 15, 2025 Dr. Juliocesar Cao DO Other Provider Active Start: February 15, 2025 Dr. Markell Romo MD Other Provider Active Star t: February 15, 2025 Dr. Jan Yen MD Other Provider Active Sta rt: February 15, 2025 Dr. Amber Bryant MD Other Provider Active Start: February 15, 2025 Dr. Rah Mary MD Attending Provider Active S tart: February 15, 2025 Team Status: Active Member Role/Relationship Status Dates Dr. Ayaz Hendrickson MD Emergency Provider Active S tart: February 16, 2025 [facility] Primary Care Provider Active Start: February 16, 2025 Dr. Vandana Bro MD Admit Provider Active St art: February 16, 2025 Dr. Vandana Bro MD Other Provider Active St art: February 16, 2025 Dr. Lana Menjivar MD Other Provider Active St art: February 16, 2025 Dr. Deanne Medley MD Other Provider Active Star t: February 16, 2025 Dr. Harvey Mckeon MD Other Provider Active Start: February 16, 2025 Dr. Steven Boyd MD Other Provider Active Start: February 16, 2025 Dr. Toi David MD Other Provider Active Star t: February 16, 2025 Dr. Boom Garg DO Other Provider Active Start : February 16, 2025 Dr. Jony Steel MD Other Provider Active Sta rt: February 16, 2025 Dr. Avery Gaona MD Other Provider Active St art: February 16, 2025 Dr. Carter Tripp MD Other Provider Active S tart: February 16, 2025 Dr. Mikayla Chavez MD Other Provider Active Start: February 16, 2025 Dr. Jesus Grant MD Other Provider Active Start : February 16, 2025 Dr. Nir Mccarthy MD Other Provider Active Start: February 16, 2025 Dr. Cole Christie MD Other Provider Active Start : February 16, 2025 Dr. Juliet Sapp MD Other Provider Active Star t: February 16, 2025 Dr. Ирина Herrera MD Other Provider Active Sta rt: February 16, 2025 Dr. Teagan Enriquez MD Other Provider Active Sta rt: February 16, 2025 Dr. Johann Kern MD Other Provider Active Star t: February 16, 2025 Dr. Jakub Malone MD Other Provider Active St art: February 16, 2025 Dr. Isidoro Solitario MD Other Provider Active Star t: February 16, 2025 Dr. Merrick Jimenez DO Other Provider Active St art: February 16, 2025 Dr. Marcello Rubio MD Other Provider Active Start: February 16, 2025 Dr. Sonya Vazquez MD Other Provider Active St art: February 16, 2025 Dr. Juliocesar Cao DO Other Provider Active Start: February 16, 2025 Dr. Markell Romo MD Other Provider Active Star t: February 16, 2025 Dr. Jan Yen MD Other Provider Active Sta rt: February 16, 2025 Dr. Amber Bryant MD Other Provider Active Start: February 16, 2025 Dr. Rah Mary MD Attending Provider Active S tart: February 16, 2025 Team Status: Active Member Role/Relationship Status Dates Dr. Ayaz Hendrickson MD Emergency Provider Active S tart: February 16, 2025 [facility] Primary Care Provider Active Start: February 16, 2025 Dr. Vandana Bro MD Admit Provider Active St art: February 16, 2025 Dr. Vandana Bro MD Other Provider Active St art: February 16, 2025 Dr. Lana Menjivar MD Attending Provider Active Start: February 16, 2025 Dr. Lana Menjivar MD Other Provider Active St art: February 16, 2025 Dr. Deanne Medley MD Other Provider Active Star t: February 16, 2025 Dr. Harvey Mckeon MD Other Provider Active Start: February 16, 2025 Dr. Steven Boyd MD Other Provider Active Start: February 16, 2025 Dr. Toi David MD Other Provider Active Star t: February 16, 2025 Dr. Boom Garg DO Other Provider Active Start : February 16, 2025 Dr. Jony Steel MD Other Provider Active Sta rt: February 16, 2025 Dr. Avery Gaona MD Other Provider Active St art: February 16, 2025 Dr. Carter Tripp MD Other Provider Active S tart: February 16, 2025 Dr. Mikayla Chavez MD Other Provider Active Start: February 16, 2025 Dr. Jesus Grant MD Other Provider Active Start : February 16, 2025 Dr. Nir Mccarthy MD Other Provider Active Start: February 16, 2025 Dr. Cole Christie MD Other Provider Active Start : February 16, 2025 Dr. Juliet Sapp MD Other Provider Active Star t: February 16, 2025 Dr. Ирина Herrera MD Other Provider Active Sta rt: February 16, 2025 Dr. Teagan Enriquez MD Other Provider Active Sta rt: February 16, 2025 Dr. Johann Kern MD Other Provider Active Star t: February 16, 2025 Dr. Jakub Malone MD Other Provider Active St art: February 16, 2025 Dr. Isidoro Solitario MD Other Provider Active Star t: February 16, 2025 Dr. Merrick Jimenez DO Other Provider Active St art: February 16, 2025 Dr. Marcello Rubio MD Other Provider Active Start: February 16, 2025 Dr. Sonya Vazquez MD Other Provider Active St art: February 16, 2025 Dr. Juliocesar Cao DO Other Provider Active Start: February 16, 2025 Dr. Markell Romo MD Other Provider Active Star t: February 16, 2025 Dr. Jan Yen MD Other Provider Active Sta rt: February 16, 2025 Dr. Amber Bryant MD Other Provider Active Start: February 16, 2025 Team Status: Active Member Role/Relationship Status Dates Dr. Ayaz Hendrickson MD Emergency Provider Active S tart: February 17, 2025 [facility] Primary Care Provider Active Start: February 17, 2025 Dr. Vandana Bro MD Admit Provider Active St art: February 17, 2025 Dr. Vandana Bro MD Other Provider Active St art: February 17, 2025 Dr. Lana Menjivar MD Attending Provider Active Start: February 17, 2025 Dr. Lana Menjivar MD Other Provider Active St art: February 17, 2025 Dr. Deanne Medley MD Other Provider Active Star t: February 17, 2025 Dr. Harvey Mckeon MD Other Provider Active Start: February 17, 2025 Dr. Steven Boyd MD Other Provider Active Start: February 17, 2025 Dr. Toi David MD Other Provider Active Star t: February 17, 2025 Dr. Boom Garg DO Other Provider Active Start : February 17, 2025 Dr. Jony Steel MD Other Provider Active Sta rt: February 17, 2025 Dr. Avery Gaona MD Other Provider Active St art: February 17, 2025 Dr. Carter Tripp MD Other Provider Active S tart: February 17, 2025 Dr. Mikayla Chavez MD Other Provider Active Start: February 17, 2025 Dr. Jesus Grant MD Other Provider Active Start : February 17, 2025 Dr. Nir Mccarthy MD Other Provider Active Start: February 17, 2025 Dr. Cole Christie MD Other Provider Active Start : February 17, 2025 Dr. Juliet Sapp MD Other Provider Active Star t: February 17, 2025 Dr. Ирина Herrera MD Other Provider Active Sta rt: February 17, 2025 Dr. Teagan Enriquez MD Other Provider Active Sta rt: February 17, 2025 Dr. Johann Kern MD Other Provider Active Star t: February 17, 2025 Dr. Jakub Malone MD Other Provider Active St art: February 17, 2025 Dr. Isidoro Solitario MD Other Provider Active Star t: February 17, 2025 Dr. Merrick Jimenez DO Other Provider Active St art: February 17, 2025 Dr. Marcello Rubio MD Other Provider Active Start: February 17, 2025 Dr. Sonya Vazquez MD Other Provider Active St art: February 17, 2025 Dr. Juliocesar Cao DO Other Provider Active Start: February 17, 2025 Dr. Markell Romo MD Other Provider Active Star t: February 17, 2025 Dr. Jan Yen MD Other Provider Active Sta rt: February 17, 2025 Dr. Amber Bryant MD Other Provider Active Start: February 17, 2025 Comber Operator Relationship Specialty [place] [id number] [place] [address] PCP - General Internal Medicine 05/30/22 Comber Operator Relationship Specialty [place] [id number] [place] [address] PCP - General Internal Medicine 05/30/22 Comber Operator Relationship Specialty Start Date [place] [id number] [place] [id number] PCP - General Internal Medicine 05/30/22 Comber Operator Relationship Specialty Start Date End Date Chandrika Arcos MD [id number] [place] [id number] PCP - General Internal Medicine 05/30/22 Comber Operator Relationship Specialty Start Date End Date Chandrika Arcos MD [id number] [place] [id number] PCP - General Internal Medicine 05/30/22 Comber Operator Relationship Specialty Start Date End Date Chandrika Arcos MD [id number] [place] [id number] PCP - General Internal Medicine 05/30/22 Team Status: Active Member Role Status Dates [facility] Family Provider Active [facility] Primary Care Provider Active Team Status: Inactive Member Role Status Dates [facility] Primary Care Provider, Referring Provider Active Mango Morton CHILD CARE WORKER, CHILD CARE WORKER-C Attending Provider Active Team Status: Active Member Role Status Dates [facility] Primary Care Provider Active Dr. Antonio Stephens MD Attending Provider Active Team Status: Active Member Role Status Dates [facility] Primary Care Provider Active Mango Morton CHILD CARE WORKER, CHILD CARE WORKER-C Attending Provider Active Team Status: Inactive Member Role Status Dates [facility] Primary Care Provider Active Mango Morton CHILD CARE WORKER, CHILD CARE WORKER-C Attending Provider, Referring Pro vider Active [employer] Operator Relationship Specialty Start Date End Date Chandrika Arcos MD [address] [place] [id number] PCP - General Internal Medicine 05/30/22 Team Status: Active Member Role/Relationship Status Dates Dr. Ayaz Hendrickson MD Emergency Provider Active S tart: February 12, 2025 [facility] Primary Care Provider Active Start: February 12, 2025 Dr. Vandana Bro MD Admit Provider Active St art: February 12, 2025 Dr. Vandana Bro MD Attending Provider Active Start: February 12, 2025 Dr. Vandana Bro MD Other Provider Active St art: February 12, 2025 Team Status: Inactive Member Role/Relationship Status Dates [facility] Primary Care Provider Active Start: February 23, 2025 End: February 25, 2025 Dr. Ayaz Hendrickson MD Emergency Provider Active S tart: February 23, 2025 End: February 25, 2025 Dr. Lana Menjivar MD Admit Provider Active St art: February 23, 2025 End: February 25, 2025 Dr. Lana Menjivar MD Attending Provider Active Start: February 23, 2025 End: February 25, 2025 Dr. Sunshine Nesbitt MD Other Provider Active Start: February 23, 2025 End: February 25, 2025 Dr. Rah Mary MD Other Provider Active Start : February 23, 2025 Dr. Sunshine Nesbitt MD Other Provider Active Start: February 23, 2025 Team Status: Active Member Role/Relationship Status Dates [facility] Primary Care Provider Active Start: February 24, 2025 Dr. Ayaz Hendrickson MD Emergency Provider Active S tart: February 24, 2025 Dr. Lana Menjivar MD Admit Provider Active St art: February 24, 2025 Dr. Lana Menjivar MD Attending Provider Active Start: February 24, 2025 Dr. Lana Menjivar MD Other Provider Active St art: February 24, 2025 Dr. Sunshine Nesbitt MD Other Provider Active Start: February 24, 2025 Team Status: Active Member Role/Relationship Status Dates [facility] Primary Care Provider Active Start: February 25, 2025 Dr. Ayaz Hendrickson MD Emergency Provider Active S tart: February 25, 2025 Dr. Lana Menjivar MD Admit Provider Active St art: February 25, 2025 Dr. Lana Menjivar MD Attending Provider Active Start: February 25, 2025 Dr. Lana Menjivar MD Other Provider Active St art: February 25, 2025 Dr. Sunshine Nesbitt MD Other Provider Active Start: February 25, 2025 Team Status: Inactive Member Role/Relationship Status Dates [facility] Primary Care Provider Active Start: March 03, 2025 End: March 03, 2025 [facility] Referring Provider Active Start: 2024 End: March 03, 2025 Mango Morton CHILD CARE WORKER, CHILD CARE WORKER-C Attending Provider Active S tart: March 03, 2025 End: March 03, 2025 Team Status: Inactive Member Role/Relationship Status Dates [facility] Primary Care Provider Active Start: March 03, 2025 End: March 03, 2025 Dr. Sunshine Nesbitt MD Attending Provider Active Start: March 03, 2025 End: March 03, 2025 Dr. Sunshine Nesbitt MD Referring Provider Active Start: March 03, 2025 End: March 03, 2025 Goals (unrecognized section and content) Goals may be documented in a n alternate section Scheduled Active and Recently Administ ered Medications (unrecognized section and content) Medication Order 03/28/2025 03/29/2025 2025 amLODIPine (Norvasc) tablet 2.5 mg (CANCELED) 2.5 mg, Oral, Daily, First dose on Sat03/29/25 at 1430, Substituted for felodipine (Plendil). 1434 (Given - Provider: Yamila Washington RN) amLODIPine (Norvasc) tablet 5 mg 5 mg, Oral, Daily, First dose (after last modification) on Sat03/30/25 at 0900, Substituted for felodipine (Plendil). 0931 (Given - Provid er: Marisol Brantley RN) aspirin EC tablet 81 mg 81 mg, Oral, Daily, First dose on Sat03/30/25 at 0900, Do not crush, chew, or split. 0931 (Given - Provid er: Marisol Brantley RN) atorvastatin (Lipitor) tablet 40 mg 40 mg, Oral, Daily, First dose on Sat03/29/25 at 2100 2019 (Given - Provider: Brianne Bell RN) carvedilol (Coreg) tablet 25 mg 25 mg, Oral, 2 times daily with meals, First dose on Sat03/29/25 at 1700 1631 (Given - Provider: Yamila Washington RN) 0931 (Given - Provider: Marisol Brantley RN) ceFAZolin (Ancef) 2,000 mg in sodium chloride 0.9 % 100 mL IVPB (COMPLETED) 2,000 mg, IntraVENous, at 200 mL/hr, Administer over 30 Minutes, Once, On Sat03/29/25 at 1015, For 1 dose, Preprocedure, Administer within 1 hour prior to incision. Recommend to repeat in 3-4 hours after initial dose if still intra-op. Mini-Bag Plus bag, Suspected Indication (Select all that apply): Surgical Prophylaxis 1236 (New Bag - Provider: Lauri Martinez APRN - [employer] ATTENDANT) ezetimibe (Zetia) tablet 10 mg 10 mg, Oral, Daily, First dose on Sat03/29/25 at 2100 2019 (Given - Provider: Brianne Bell, TRACEE) furosemide (Lasix) tablet 60 mg 60 mg, Oral, Daily, First dose on Sat03/30/25 at 0900 0931 (Given - Provid er: Marisol Brantley RN) hydrALAZINE (Apresoline) injection 10 mg (COMPLETED) 10 mg, IntraVENous, Once, On Sat03/29/25 at 2330, For 1 dose 2330 (Given - Provider: Brianne Bell RN) isosorbide mononitrate ER (Imdur) 24 hr tablet 30 mg 30 mg, Oral, Daily, First dose on Sat03/30/25 at 0900, Do not chew or crush ER tablets; may be divided in half. Due to insoluble matrix embedding, ER tablets that are scored may be split. 0931 (Given - Provid er: Marisol Brantley RN) mupirocin (Bactroban) 2 % ointment 1 Application 1 Application, Nasal, 2 times daily, First dose on Sat03/29/25 at 1430, For 5 days, Recovery & On Unit, Indications: MRSA Nasal Decolonization 1434 (Given - Provider: Yamila Washington, TRACEE)2019 (Given - Provider: Brianne Bell, TRACEE) 0932 (Given - Provider: Marisol Brantley RN) Continuous Medication Order 03/28/2025 03/29/2025 2025 sodium chloride 0.9 % infusion (CANCELED) 50 mL/hr, IntraVENous, Continuous, Starting on Sat03/29/25 at 1015, Preprocedure, Upon admission to sameday - please start iv if patient does not have iv access. 1039 (New Bag - Provider: Wendy Gudino RN)1230 (Continued by Anesthesia - Provider: PAULINA Duarte CRNA)1352 (Anesthesia Volume Adjustment - Provider: PAULINA Duarte CRNA) 0441 (Stopped - Provider: Brianne Bell RN - Comment: [Order ends at this time. Document the following action when infusion is complete: Stopped]) PRN Medication Order 03/28/2025 03/29/2025 2025 acetaminophen (Tylenol) tablet 650 mg 650 mg, Oral, Every 4 hours PRN, mild pain (1-3), Fever > 100.5 F (38 C), Starting on Sat03/29/25 at 1419, Recovery & On Unit, Maximum dose of acetaminophen is 4000 mg from all sources in 24 hours. 1434 (Given - Provider: Yamila Washington RN) ALPRAZolam (Xanax) disintegrating tablet 0.25 mg (COMPLETED) 0.25 mg, Oral, Once PRN, anxiety, Starting on Sat03/29/25 at 1009, For 1 dose, Preprocedure, Please do not administer prior to obtaining consent and/or history and physical. 1045 (Given - Provider: Rachel Gudino RN) heparin 1,000 Units in sodium chloride 0.9 % 500 mL OR irrigation (CANCELED) As needed, Starting on Sat03/29/25 at 1315, Intraprocedure 1315 (Given - Provider: Celestine Alvarez MD) iopamidol (Isovue-300) 61 % injection (CANCELED) As needed, Starting on Sat03/29/25 at 1334, Intraprocedure 1334 (Given - Provider: Celestine Alvarez MD) lidocaine (Xylocaine) 1 % injection (CANCELED) As needed, Starting on Sat03/29/25 at 1332, Intraprocedure 1332 (Given - Provider: Celestine Alvarez MD) perflutren protein A microsphere (Optison) 3 mL in sodium chloride (PF) 0.9 % 10 mL IV 0-10 mL, IntraVENous, IMG once PRN, other, Suboptimal echo image, Starting on Sat03/29/25 at 1419, For 1 dose, CV Procedural Medications, Administer via slow IVP for suboptimal echocardiogram enhancement. May administer as divided doses to reach optimal image enhancement FOR RECORDS PERTAINING TO PATIENTS WHO ARE OR HAVE BEEN ENROLLED IN A CHEMICAL DEPENDENCY/SUBSTANCEABUSE PROGRAM, SOME INFORMATION MAY BE OMITTED. This clinical summary was aggregated from multiple sources. Caution should be exercised in using it in the provision of clinical care. This summary normalizes information from multiple sources, and as a consequence, information in this document may materially change the coding, format and clinical context of patient data. In addition, data may be omitted in some cases. CLINICAL DECISIONS SHOULD BE BASED ON THE PRIMARY CLINICAL RECORDS. [facility]. provides no warranty or guarantee of the accuracy or completeness of information in this document.
--- NOTE | 2025-04-02 19:20 | CT_ITS ---
PROCEDURE: CTA ABD W/RUNOFF W/WO CONTRAST 04/02/2025 REASON FOR EXAM: RECENT RIGHT GROIN CATH, PAIN THAT STARTED AFTER TECHNIQUE: Procedure Code: [id number] Modality: CT Procedure: CTA ABD W/RUNOFF W/WO CONTRAST Multiplanar Sagittal and Coronal images were obtained. CONTRAST: 100 cc of Isovue 370 One or more dose reduction techniques were used (e.g., Automated exposure control, adjustment of the mA and/or kV according to patient size, use of iterative reconstruction technique). COMPARISON: None available. FINDINGS: Aorta: Moderate mixed calcified and soft plaque. No abdominal aortic aneurysm. Iliac Arteries: Scattered atherosclerotic plaque. No aneurysm or significant stenosis. Celiac: No occlusion or significant stenosis. No active contrast extravasation. SMA: No occlusion or significant stenosis. No active contrast extravasation. MITCH : No occlusion or significant stenosis. No active contrast extravasation. Right Renal: No occlusion or significant stenosis. Left Renal: No occlusion or significant stenosis. Lower Extremity Runoff (Right): Common Femoral Artery: No occlusion or significant stenosis bilaterally. Superficial Femoral Artery: Scattered calcified plaque formation. No occlusion or significant stenosis. Profunda Femoris Artery: Moderate calcified formation. No occlusion or significant stenosis bilaterally. Popliteal Arteries: Moderate calcified plaque formation. No occlusion or significant stenosis bilaterally. Trifurcation Arteries: Moderate calcified plaque formation throughout. The anterior tibial, posterior tibial, and peroneal arteries appear patent. Lower Extremity Runoff (Left): Common Femoral Artery: No occlusion or significant stenosis bilaterally. Superficial Femoral Artery: Scattered calcified plaque formation. No occlusion or significant stenosis. Profunda Femoris Artery: Moderate calcified formation. No occlusion or significant stenosis bilaterally. Popliteal Arteries: Moderate calcified plaque formation. No occlusion or significant stenosis bilaterally. Trifurcation Arteries: Moderate calcified plaque formation throughout. Absent contrast opacification of the left anterior tibial artery concerning for occlusion. The posterior tibial and peroneal arteries appear patent. Extravascular Findings: Lung bases: Bibasilar dependent atelectasis.. Liver: Diffuse hepatic steatosis. No obvious hepatic mass.. Spleen: Unremarkable. Gallbladder: Unremarkable. Pancreas: Unremarkable. Adrenals: Unremarkable. Kidneys: Unremarkable. Bowel: Unremarkable. Normal caliber appendix. Lymph nodes: Unremarkable. Peritoneum: Unremarkable. Bladder: Unremarkable. Reproductive Organs: Unremarkable. Body Wall: Small fat containing umbilical hernia. Bones: Multilevel spondylosis. No acute fractures. CT/CTA Abd w/Runoff W/WO Contrast IMPRESSION: 1. Moderate calcified and soft plaque formation throughout the abdominal aorta and its branches with no evidence of aneurysm, dissection, occlusion, or stenosis. 2. Moderate scattered calcified plaque formation throughout both lower extremit y vasculature. 3. Probable occlusion of the left anterior tibial artery. 4. The remaining distal bilateral lower extremity runoff appear patent. 5. No evidence of active contrast extravasation. 6. No acute findings in the abdomen or pelvis as imaged. Reading [facility]
[2025-04-02] MEDS: 0.9% Normal Saline (1000mL) 1,000 ML 1000 ML IV (19:58)
[2025-04-02 19:59] VITALS: BP 166/66; PULSE 62; RESP 18; O2SAT 97
[2025-04-02 20:41] LABS: Color, Urine Straw (Yellow); Glucose, Dipstick 1000 mg/dl (Normal); Ketone-Dipstick Negative (Negative); Leukocyte Esterase-Dipstick Negative /ul (Negative); Nitrite-Dipstick Negative (Negative); Occult Blood-Urine Negative /ul (Negative); Protein-Dipstick 100 mg/dl (Negative); Specific Gravity, Urine 1.010 (1.002-1.030); Urine Bilirubin Dipstick Negative (Negative)
[2025-04-02 21:00] VITALS: BP 104/87; PULSE 81; RESP 18; O2SAT 100
[2025-04-02 21:21] LABS: Red Blood Cells-Urine 0-5 SEEN /hpf (0-5); Squamous Epithelial Cells - UA 0-5 SEEN /hpf (0-5)
[2025-04-02 23:00] VITALS: BP 166/65; PULSE 60; RESP 14; O2SAT 99
[2025-04-02 23:56] VITALS: BP 177/70; PULSE 63; RESP 18; TEMP 36.9; O2SAT 97
== END 2025-04-02 23:57 | disposition home or self-care (01) ==
PROVIDERS: Emergency Provider Student in an Organized Health Care Education/Training Program; Visit Provider Student in an Organized Health Care Education/Training Program
DX: M54.50 Low back pain, unspecified (principal); N18.4 Chronic kidney disease, stage 4 (severe); I50.9 Heart failure, unspecified; I13.0 Hypertensive heart and chronic kidney disease with heart failure and stage 1 through stage 4 chronic kidney disease, or unspecified chronic kidney disease; E11.22 Type 2 diabetes mellitus with diabetic chronic kidney disease; R10.9 Unspecified abdominal pain; I25.10 Atherosclerotic heart disease of native coronary artery without angina pectoris; Z87.891 Personal history of nicotine dependence; E78.5 Hyperlipidemia, unspecified; Z95.5 Presence of coronary angioplasty implant and graft; Z95.2 Presence of prosthetic heart valve; I77.1 Stricture of artery
CPT/HCPCS: 75635; 80053; 81001; 85025; 96360; 96361; 99282; Q9967; A4216

== ENCOUNTER → 2025-04-06 | Outpatient (CLI) | payer MEDICARE, OTHER, SELFPAY ==
[2025-04-06 12:11] LABS: Hematocrit 31.6 % (40-54); Hemoglobin 10.8 g/dL (13.0-16.5); Mean Corp Hgb Conc 34.2 g/dL (32-36); Mean Corpuscular Volume 88.3 fL (80-94); Mean Platelet Vol. 9.1 fl (6.2-12.0); Platelet Count 228 K/mm3 (150-450); RBC Distribution Width CV 12.4 % (11.6-14.6); RBC Distribution Width SD 40.4 fl (35.1-43.9); Red Blood Count 3.58 M/mm3 (4.6-6.2); White Blood Count 6.7 K/mm3 (4.4-11.0)
[2025-04-06 12:34] LABS: Creatinine, Urine (random) 83.90 mg/dL (39.00-259.00); Protein, Urine (Random) 79.3 mg/dL (0.0-12.0); Protein:Creat Ratio 945 mg/g CRE (0-200)
[2025-04-06 12:53] LABS: PTHIN 217 pg/mL (11-61)
[2025-04-06 13:27] LABS: Albumin, Serum 3.9 g/dL (3.4-4.8); Anion Gap 13 (5-15); BUN 56 mg/dL (4-19); BUN/Creat Ratio 17.1 RATIO (10-20); Calcium,Total 9.0 mg/dL (7.6-11.0); Carbon Dioxide 22.0 mmol/L (21.0-32.0); Chloride 100 mmol/L (98-108); Glucose 156 mg/dL (70-99); Hepatitis B Surface Antigen Nonreactive (Nonreactive); Hepatitis C Antibody Nonreactive (Nonreactive); Potassium 4.9 mmol/L (3.3-5.1); Vitamin D,25 Hydroxy 24.8 ng/mL (30-100)
--- OUTSIDE RECORDS SUMMARY | 2025-04-07 10:04 | XMS RPT_ITS ---
Author Name Auto Generated Organization OHIP Care Team Providers Care Director Business Travel Name Role Phone CARO ALVAREZ Attending Unavailable CARO ALVAREZ Attending Unavailable CARO ALVAREZ Referring Unavailable PARI SILVA Attending Unavailable CARMEN DONOVAN Referring Unavailable CARMEN DONOVAN Referring Unavailable ZONIA CANELA Attending Unavailable CARO ALVAREZ Admitting Unavailable CARO ALVAREZ Attending Unavailable PROBLEMS DATE TYPE CONDITION / CODE ATTENDING STATUS [facility] 04/06/2025 Admitting Diagnosis Essential (primary) hypertension / I10(ICD-10) ZONIA CANELA [facility] 03/29/2025 Admitting Diagnosis Nonrheumatic aortic (valve) stenosis / I35.0(ICD-10) ZONIA CANELA [facility] 03/04/2025 Admitting Diagnosis Atherosclerotic heart disease of [place] coronary artery without angina pectoris / I25.10(ICD-10) ZONIA CANELA [facility] 03/19/2025 Admitting Diagnosis Shortness of breath / R06.02(ICD-10) NA [facility] 03/11/2025 Admitting Diagnosis Acute kidney failure, unspecified (HCC) / N17.9(ICD-10) CARO ALVAREZ Active [facility] 03/09/2025 Admitting Diagnosis Encounter for preprocedural cardiovascular examination / Z01.810(ICD-10) CARO ALVAREZ Active [facility] 03/04/2025 Admitting Diagnosis Chronic kidney disease, stage 4 (severe) (HCC) / N18.4(ICD-10) PARI SILVA Active [facility] PROCEDURES No Procedure Records Found RESULTS PROGRESS NOTE Observed: 04/07/2025 3:30 PM Status: COMPLETED Source: [facility] CAD with patent grafts on re cent heart cath -denies angina -continue ASA, carvedilol, atorvastatin 40 mg daily PROGRESS NOTE Observed: 04/07/2025 3:29 PM Status: COMPLETED Source: [facility] Followed by Dr. Nesbitt. Labs done for OV next week. PROGRESS NOTE Observed: 04/07/2025 3:28 PM Status: COMPLETED Source: [facility] Well controlled on current m edications. -followed closely by design draftsman Dr. Nesbitt. Has OV next week PROGRESS NOTE Observed: 04/07/2025 3:27 PM Status: COMPLETED Source: [facility] S/p femoral TAVR with 26 mm Shivani S3 on 03/29/25 -stable -continue ASA 81 mg daily -repeat echo in one month -reviewed lifelong SBE prophylaxis-amox prescription sent to pharmacy -discussed Cardiac Rehab, he in interested in participating PROGRESS NOTE Observed: 04/07/2025 10:30 AM Status: COMPLETED Source: [facility] [address] [address] Dept: [phone] Dept Loc: [phone] Reason for Visit: Follow-up Assessment and Plan 1. Severe aortic stenosis Assessment & Plan: S/p femoral TAVR with 26 mm Shivani S3 on 03/29/25 -stable -continue ASA 81 mg daily -repeat echo in one month -reviewed lifelong SBE prophylaxis-amox prescription sent to pharmacy -discussed Cardiac Rehab, he in interested in participating Orders: - ECG 12 lead - CLINIC PERFORMED 2. Coronary artery disease involving [place] coronary artery of [place] heart without angina pectoris Assessment & Plan: CAD with patent grafts on recent heart cath -denies angina -continue ASA, carvedilol, atorvastatin 40 mg daily Orders: - ECG 12 lead - CLINIC PERFORMED 3. Stage 4 chronic kidney disease (HCC) Assessment & Plan: Followed by Dr. Nesbitt. Labs done for OV next week. Orders: - ECG 12 lead - CLINIC PERFORMED 4. Essential hypertension Assessment & Plan: Well controlled on current medications. -followed closely by design draftsman Dr. Nesbitt. Has OV next week Orders: - ECG 12 lead - CLINIC PERFORMED 5. S/P TAVR (transcatheter aortic valve replacement) - External referral to Cardiology Follow up for AIRPORT SALES AGENT follow up, with echo, One month follow up. Subjective HPI Sam Vidales is a 75 yo male known to Dr. Mary with a history of CAD/CABG 2017, CKD, HTN, HLD and severe aortic stenosis (pk/mn 95/64) with preserved EF. Heart cath showed no significant CAD within bypass grafts. He underwent femoral TAVR on 03/29/25 with 26 mm Shivani S3 valve. He did well post procedure. Mild groin surface oozing and achieved hemostasis with a QuikClot dressing. He presents today for a one week follow up. He denies SOB, orthopnea, angina, dizziness or lightheadedness. Weight is stable at 155 lbs. He went to the ED in [place] last Saturday for pain in his right hip and lower back. Per patient, only finding was PAD noted in his upper left leg and he has been scheduled to see a vascular surgeon. No notes from this ED visit are available. Patient reports pain in right hip and lower back is improving. Review of Systems Constitutional: Negative for chills and fever. Respiratory: Negative for cough. Cardiovascular: Negative for chest pain, palpitations and leg swelling. Left leg claudication Gastrointestinal: Negative for abdominal pain, blood in stool and vomiting. Genitourinary: Negative for hematuria. Neurological: Negative for dizziness and syncope. Allergies[1] Current Medications[2] Medical History[3] Social History Tobacco Use Smoking status: Former Current packs/day: 0.00 Types: Cigarettes Quit date: 1997 Years since quittin.7 Smokeless tobacco: Never Substance Use Topics Alcohol use: Not Currently Surgical History[4] Family History[5] Objective Vitals: 04/07/25 1025 BP: 138/70 BP Location: Left arm Patient Position: Sitting BP Cuff Size: Adult Pulse: 52 SpO2: 96% Weight: 164 lb 6.4 oz (74.6 kg) Height: 5' 9 (1.753 m) Body mass index is 24.28 kg/m?. Physical Exam Constitutional: Appearance: Normal appearance. HENT: Head: Normocephalic. Eyes: General: No scleral icterus. Right eye: No discharge. Left eye: No discharge. Cardiovascular: Rate and Rhythm: Normal rate and regular rhythm. Pulses: Normal pulses. Dorsalis pedis pulses are 2+ on the right side and 2+ on the left side. Posterior tibial pulses are 2+ on the right side and 2+ on the left side. Heart sounds: Normal heart sounds. No murmur heard. Comments: R femoral cath site without hematoma, ecchymosis, oozing or bruit R radial cath site without hematoma, ecchymosis or oozing. R hand with brisk capillary refill Pulmonary: Effort: Pulmonary effort is normal. Breath [...] time. Psychiatric: Mood and Affect: Mood normal. Data Reviewed and Summarized Lab Results Component Value Date WBC 8.5 2025 HGB 11.0 (L) 2025 HCT 33.0 (L) 2025 MCV 88.9 2025 PLT 206 2025 Lab Results Component Value Date GLUCOSE 154 (H) 2025 CALCIUM 8.8 2025 NA 136 2025 K 4.3 2025 CO2 19 (L) 2025 CL 106 2025 BUN 58 (H) 2025 CREATININE 3.07 (H) 2025 EF BP Date Value Ref Range Status 2025 67 55 - 100 % Final Echocardiogram 03/30/25: Left Ventricle: Left ventricle size is normal. Moderately increased wall thickness. Normal left ventricular systolic function. EF by 2D Simpsons Biplane is 67%. Global longitudinal strain is -12.0%, apical sparing pattern. Normal wall motion. Right Ventricle: Right ventricle size is normal. Reduced systolic function. TAPSE is abnormal. TAPSE is 0.9 cm. Aortic Valve: Keith Shivani 3 bioprosthetic aortic valve with a size of 26 mm placed 03/29/2025. AV mean gradient is 20 mmHg. No cusp thickening. No cusp calcification. No regurgitation. AV peak gradient is 35 mmHg. AV AT is 79.92 ms. LVOT:AV VTI Index is 0.40. Left Atrium: Left atrium is moderately dilated. LA Vol Index A/L is 46 mL/m2. Zonia Canela, MATERIAL ATTENDANT - CASING WRINGER OPERATOR [1] Allergies Allergen Reactions Lisinopril Cough [2] Current Outpatient Medications: aspirin 81 MG EC tablet, Take 81 mg by mouth daily., Disp: , Rfl: atorvastatin (Lipitor) 40 MG tablet, Take 40 mg by mouth daily., Disp: , Rfl: carvedilol (Coreg) 25 MG tablet, Take 25 mg by mouth 2 times daily (with meals)., Disp: , Rfl: empagliflozin (Jardiance) 25 MG, Take 25 mg by mouth daily. (Patient taking differently: Take 12.5 mg by mouth daily.), Disp: , Rfl: ezetimibe (Zetia) 10 MG tablet, Take 10 mg by mouth daily., Disp: , Rfl: felodipine ER (Plendil) 2.5 MG 24 hr tablet, Take 2.5 mg by mouth daily. Patient unsure of dosage, Disp: , Rfl: furosemide (Lasix) 40 MG tablet, Take 60 mg by mouth daily. (Patient taking differently: Take 60 mg by mouth Daily as needed.), Disp: , Rfl: insulin glargine (Lantus) 100 UNIT/ML injection, Inject 35 Units under the skin every morning. (Patient taking differently: Inject 12 Units under the skin every morning.), Disp: , Rfl: amoxicillin (Amoxil) 500 MG capsule, Take 4 caps (2000 mg) 1 hour prior to dental procedure., Disp: 12 capsule, Rfl: 11 dulaglutide (Trulicity) 0.75 MG/0.5ML, Inject 0.75 mg under the skin 1 (one) time per week. (Patient not taking: Reported on 04/07/2025), Disp: , Rfl: isosorbide mononitrate ER (Imdur) 30 MG 24 hr tablet, Take 30 mg by mouth daily. Do not crush or chew. (Patient not taking: Reported on 04/07/2025), Disp: , Rfl: [3] Past Medical History: Diagnosis Date (aortic stenosis) CAD (coronary artery disease) Claudication of both lower extremities DDD (degenerative disc disease), cervical HLD (hyperlipidemia) HTN (hypertension) Spinal stenosis T2DM (type 2 diabetes mellitus) (HCC) [4] Past Surgical History: Procedure Laterality Date AORTIC VALVE REPLACEMENT [id number] CARDIAC CATHETERIZATION N/A 03/29/2025 Performed by Caro Alvarez MD at [facility] OR CORONARY ARTERY BYPASS GRAFT QUAD LUMBAR LAMINECTOMY [5] Family History Problem Relation Name Age of Onset Heart disease Sister PROGRESS NOTE Observed: 04/07/2025 10:30 AM Status: COMPLETED [facility] Cardiac rehab referral faxed to [facility] [phone] OFFICE VISIT Observed: 04/07/2025 10:30 AM Status: COMPLETED [facility] [id number] Sam Vidales 03/09 Provider Department Center 04/07/2025 ZOINA AMADO [facility] [address] Family History Problem Relation Age of Onset Heart disease Sister Family Status - Relation Status Age at Sister Level of Service:53643 UT OFFICE/OUTPATIENT ESTABLISHED MOD MDM 30 MIN Reason for Visit and Comments: Follow-up [[id number]] 36 Observed: 04/05/2025 3:02 PM Status: COMPLETED [facility] Per TVT registry guidelines 5 meter walk completed at office visit on 03/09/25. 10 seconds, 10 seconds, 10 seconds 36 Observed: 04/01/2025 10:12 AM Status: COMPLETED [facility] PC to patient. Patient state s he is feeling better today and only has pain in his back. Patient plans to keep appointment on 04/07 with Kole Canela APRN and will call with any new or worsening symptoms. 36 Observed: 03/31/2025 5:09 PM Status: COMPLETED [facility] Chart reviewed. Patient had TAVR 03/29/25. PC to patient. Patient reports sharp pain in R lower abdomen and back to his back and hip. Patient verified his groin site is clean, dry, and intact. He is not currently in pain as he took some pain medication which relieved his symptoms. He states he had this pain in the hospital and it went away. Patient states it feels like pancreatitis. RN educated patient to monitor overnight, call with any questions or concerns, and proceed to emergency room for any emergencies. Patient verbalized understanding. Will review with MATERIAL ATTENDANT tomorrow after follow up with patient. 36 Observed: 03/31/2025 4:56 PM Status: COMPLETED Source: [employer] [facility] Patient called wanting to le t us know of some pain he is having since being home after his procedure. CONSULT Observed: 2025 10:41 AM Status: COMPLETED Source: [facility] Received referral and review ed chart. Phase II Cardiopulmonary Rehab Referral discussed with Sam Vidales. Patient prefers cardiopulmonary rehab at [place] [facility]. Given information on program at preferred location. STHORACIC ECHOCARDIOGRAM (TTE) COMPLETE Observed: 2025 10:39 AM Status: F Source: [employer] [facility] This is a summary report. Th e complete report is available in the patient's medical record. If you cannot access the medical record, please contact the sending organization for a detailed fax or copy. ? Left?Ventricle: Left ventricle size is normal. Moderately increased wall thickness. Normal left ventricular systolic function. EF by 2D Simpsons Biplane is 67%. Global longitudinal strain is -12.0%, apical sparing pattern. Normal wall motion. ? Right?Ventricle: Right ventricle size is normal. Reduced systolic function. TAPSE is abnormal. TAPSE is 0.9 cm. ? Aortic?Valve: Keith Shivani 3 bioprosthetic aortic valve with a size of 26 mm placed 03/29/2025. AV mean gradient is 20 mmHg. No cusp thickening. No cusp calcification. No regurgitation. AV peak gradient is 35 mmHg. AV AT is 79.92 ms. LVOT:AV VTI Index is 0.40. ? Left?Atrium: Left atrium is moderately dilated. LA Vol Index A/L is 46 mL/m2. ECG 12-LEAD Observed: 2025 9:18 AM Status: F Source: [facility] [employer] [facility] IMPRESSION: Sinus rhythm Prolonged UT interval Probable left atrial enlargement Electronically Signed On 2025 09:18:52 EDT by Landon Montilla [id number] Observed: 2025 7:42 AM Status: COMPLETED Source: [facility] [employer] [facility] Care Management Progress Not e Short Medical why still here: Tcc chart [...] still Wait: Administering IV medications, Clinical stability, Blow Moulding Machine Operator recommendations (comment), Symptomatic control Length of Stay (Days): 1 GMLOS: No GMLOS Documented HARGE SUMMARY Observed: 2025 7:29 AM Status: COMPLETED Source: [facility] [employer] [facility] Name: Sam Vidales Date of : 1950 Date of Admission: 03/29/2025 Date of Discharge: 2025 Admitting physician: Caro Alvarez MD Discharge Attending: PAULINA Welsh CNP [...] discharge. Referral has been made to the [facility] Out[facility] Program. Last Labs: Lab [...] Normal Weight (BMI 18.5-24.9) Follow up with [facility] one week, appt arranged If any questionscall [facility] [phone] Greater than 30 minutes spent on patient discharge including assessment/plan, education, and coordination of care Electronically signed by Zonia Canela, PAULINA - CASING WRINGER OPERATOR Date: 2025 [1] Patient Active Problem List Diagnosis CAD (coronary artery disease) HLD (hyperlipidemia) CKD (chronic kidney disease) Diabetes mellitus type II, non insulin dependent (HCC) Nonrheumatic aortic valve stenosis Renal failure Severe aortic stenosis CBC (HEMOGRAM) Collected: 2025 4:37 AM Status: F Source: [facility] TYPE CODE TESTS RESULT OUT OF RANGE REFERENCE UNITS LAB [id number] WBC 8.5 3.6-10.7 10*3/uL LAB [id number] RBC 3.71 Low 4.40-5.90 10*6/uL LAB [id number] HEMOGLOBIN 11.0 Low 13.0-18.0 g/dL LAB [id number] HEMATOCRIT 33.0 Low 40.0-52.0 % LAB [id number] MCV 88.9 77.0-99.0 fL LAB [id number] MCH 29.6 26.0-34.0 pg LAB [id number] MCHC 33.3 30.5-36.0 % LAB [id number] RDW 12.7 11.5-15.0 % LAB [id number] PLATELET COUNT 206 140-440 10*3/uL LAB [id number] MPV 9.8 9.0-12.7 fL Performed By: #### [id number] ## ## Public Speaking Instructor: KARLA SIMON ([id number]) [facility] ([facility] [address] [place] [address] BASIC METABOLIC PANEL Collected: 2024 4:37 AM Status: F Source: [facility] TYPE CODE TESTS RESULT OUT OF RANGE REFERENCE UNITS LAB [id number] SODIUM 136 136-145 mmol/L LAB [id number] POTASSIUM 4.3 3.5-5.1 mmol/L Result Comment: Plasma potas sium values may be up to 0.5 mmol/L lower than serum values. LAB 5453921 CHLORIDE 106 98-107 mmol/L LAB 1081514 CARBON DIOXIDE 19 Low 23-31 mmol/L LAB [id number] UREA NITROGEN 58 High 9-23 mg/dL LAB [id number] CREATININE 3.07 High 0.72-1.25 mg/dL LAB [id number] GLUCOSE 154 High 82-115 mg/dL LAB [id number] CALCIUM 8.8 8.8-10.0 mg/dL LAB [id number] ANION GAP (WAY, CALCULATED) 11 3-13 mmol/L LAB [id number] GLOMERULAR FILTRATION RATE ML/MIN/1.73 SQ M.PREDICTED 20.3 Low >60.0 mL/min/1. 73m*2 Result Comment: Calculation based on the Chronic Kidney Disease Epidemiology Collaboration (CKD-EPI) equation refit without adjustment for race Performed By: #### [id number] ### # Public Speaking Instructor: KARLA SIMON ([id number]) [facility] ([facility]) [address] [place] [address] ECG 12-LEAD Observed: 03/29/2025 5:43 PM Status: F Source: [employer] [facility] IMPRESSION: Sinus rhythm Prolonged UT interval Repol abnrm suggests ischemia, lateral leads No previous ECG available for comparison Electronically Signed On 03-29-2025 17:43:49 EDT by Rayo Gomez TRANSTHORACIC ECHOCARDIOGRAM (TTE) LIMITED COLOR FLOW AND DOPPLER Observed: 03/29/2025 5:19 PM Status: F Source: [employer] [facility] This is a summary report. Th e complete report is available in the patient's medical record. If you cannot access the medical record, please contact the sending organization for a detailed fax or copy. ? Left?Ventricle: Left ventricle size is normal. Moderately increased wall thickness. The EF by visual approximation is 60%. Normal wall motion. ? Right?Ventricle: Right ventricle size is normal. Normal systolic function. ? Aortic?Valve: Keith Shivani 3 transcatheter bioprosthetic aortic valve with a size of 26 mm. AV mean gradient is 7 mmHg. No regurgitation. No paravalvular regurgitation. No stenosis. ? Pulmonary?Arteries: Pulmonary hypertension present. Successful placement and function of a bioprosthetic Keith SHIVANI 3 aortic valve. Prevalve replacement the mean gradient was 55 mmHg, dimensionless index 0.13, calculated valve area 0.4 cm?. Post valve replacement the mean gradient was 7 mmHg without aortic regurgitation. LV function and RV function remained normal. There was no pericardial effusion. CBC (HEMOGRAM) Collected: 03/29/2025 2:20 PM Status: F Source: [facility] TYPE CODE TESTS RESULT OUT OF RANGE REFERENCE UNITS LAB [id number] WBC 6.2 3.6-10.7 10*3/uL LAB [id number] RBC 3.62 Low 4.40-5.90 10*6/uL LAB [id number] HEMOGLOBIN 10.9 Low 13.0-18.0 g/dL LAB 5292018 HEMATOCRIT 33.0 Low 40.0-52.0 % LAB [id number] MCV 91.2 77.0-99.0 fL LAB 6909430 MCH 30.1 26.0-34.0 pg LAB [id number] MCHC 33.0 30.5-36.0 % LAB 9724986 RDW 12.7 11.5-15.0 % LAB [id number] PLATELET COUNT 189 140-440 10*3/uL LAB [id number] MPV 10.3 9.0-12.7 fL Performed By: #### [id number] ## ## Public Speaking Instructor: KARLA SIMON ([id number]) [facility] ([address] BASIC METABOLIC PANEL Collected: 2024 2:20 PM Status: F Source: [facility] TYPE CODE TESTS RESULT OUT OF RANGE REFERENCE UNITS LAB [id number] SODIUM 138 136-145 mmol/L LAB [id number] POTASSIUM 4.8 3.5-5.1 mmol/L Result Comment: Plasma potas sium values may be up to 0.5 mmol/L lower than serum values. LAB 5980023 CHLORIDE 108 High 98-107 mmol/L LAB [id number] CARBON DIOXIDE 18 Low 23-31 mmol/L LAB [id number] UREA NITROGEN 66 High 9-23 mg/dL LAB 7710316 CREATININE 3.39 High 0.72-1.25 mg/dL LAB 5374317 GLUCOSE 129 High 82-115 mg/dL LAB [id number] CALCIUM 8.4 Low 8.8-10.0 mg/dL LAB [id number] ANION GAP (WAY, CALCULATED) 12 3-13 mmol/L LAB [id number] GLOMERULAR FILTRATION RATE ML/MIN/1.73 SQ M.PREDICTED 18.1 Low >60.0 mL/min/1. 73m*2 Result Comment: Calculation based on the Chronic Kidney Disease Epidemiology Collaboration (CKD-EPI) equation refit without adjustment for race Performed By: #### [id number] ### # Public Speaking Instructor: KARLA SIMON ([phone]) [facility] ([facility]) [address] [place], [place] [id number] [facility] [id number] Observed: 03/29/2025 1:52 PM Status: COMPLETED Source: [facility] Patient: Sam Vidales Procedure Summary Date: 03/29/25 Room / Location: [facility] Operating Room Anesthesia Start: 1230 Anesthesia Stop: 1351 Procedures: TRANSCATHETER AORTIC VALVE REPLACEMENT, TRANSTHORACIC ECHOCARDIOGRAM TRANSCATHETER AORTIC VALVE REPLACEMENT (TAVR) - OR (Chest) Diagnosis: Nonrheumatic aortic valve stenosis Surgeons: Caro Alvarez MD; Car Amaya MD Responsible Provider: [...] once all PACU criteria has been met. ANESTHESIA NOTE Observed: 03/29/2025 1:50 PM Status: COMPLETED Source: [facility] Patient: Sam Vidales Procedure Summary Date: 03/29/25 Room / Location: [facility] Operating Room Anesthesia Start: 1230 Anesthesia Stop: 1351 Procedures: TRANSCATHETER AORTIC VALVE REPLACEMENT, TRANSTHORACIC ECHOCARDIOGRAM TRANSCATHETER AORTIC VALVE REPLACEMENT (TAVR) - OR (Chest) Diagnosis: Nonrheumatic aortic valve stenosis Surgeons: Caro Alvarez MD; Car Amaya MD Responsible Provider: [...] opportunity for questions and acknowledgement of understanding. PROCEDURE NOTE Observed: 03/29/2025 1:02 PM Status: COMPLETED Source: [employer] [facility] Arterial Line: Date/Time: 03/29/2025 1:02 PM An arterial line was placed in the Procedural for the following indication(s): continuous blood pressure monitoring and blood sampling needed. The procedure was performed using ultrasound guidance . A 5 [place] (size), 1 and 3/4 inch (length), Arrow (type) catheter was placed, into the Right radial artery, secured by Tegaderm and tape. Events: patient tolerated procedure well with no complications. Staffing Performed: Other Other staff: Cyndi Alvarez MD OP NOTE Observed: 03/29/2025 12:30 PM Status: COMPLETED Source: [facility] CARDIOTHORACIC SURGERY--OPER ATIVE NOTE Date: 03/29/25 Preoperative diagnosis: Severe symptomatic aortic stenosis Postoperative diagnosis: Severe symptomatic aortic stenosis Surgeon: Car Amaya MD Zmt Operator: MD Jarrod Ba MD Procedure: Transcatheter aortic [...] ICU Car Amaya MD Cardiothoracic Surgeon 03/29/25 BASIC METABOLIC PANEL Collected: 2024 10:21 AM Status: F Source: [facility] TYPE CODE TESTS RESULT OUT OF RANGE REFERENCE UNITS LAB [id number] SODIUM 138 136-145 mmol/L LAB [id number] POTASSIUM 5.0 3.5-5.1 mmol/L Result Comment: Plasma potas sium values may be up to 0.5 mmol/L lower than serum values. LAB 0986466 CHLORIDE 108 High 98-107 mmol/L LAB 2361962 CARBON DIOXIDE 22 Low 23-31 mmol/L LAB 3688802 UREA NITROGEN 66 High 9-23 mg/dL LAB 5395774 CREATININE 3.38 High 0.72-1.25 mg/dL LAB 9521516 GLUCOSE 154 High 82-115 mg/dL LAB 1339366 CALCIUM 8.9 8.8-10.0 mg/dL LAB [id number] ANION GAP (WAY, CALCULATED) 8 3-13 mmol/L LAB 1602206 GLOMERULAR FILTRATION RATE ML/MIN/1.73 SQ M.PREDICTED 18.2 Low >60.0 mL/min/1. 73m*2 Result Comment: Calculation based on the Chronic Kidney Disease Epidemiology Collaboration (CKD-EPI) equation refit without adjustment for race Performed By: #### [id number] ### # Public Speaking Instructor: KARLA SIMON ([id number]) [facility] ([facility]) [address] [place] [address] BLOOD TYPE AND SCREEN GEL Collected: 03/29/2025 10:21 AM Status: F Source: [facility] TYPE CODE TESTS RESULT OUT OF RANGE REFERENCE UNITS LAB 2669770 ABO GROUPING A LAB [id number] ANTIBODY SCREEN NEG LAB [id number] RH TYPE IN BLOOD POS Performed By: #### [id number] ## ## Public Speaking Instructor: KARLA SIMON ([id number]) [facility] BLOOD BANK ([facility]) [address] [place] [address] HISTORY AND PHYSICAL NOTE Observed: 03/29/2025 10:20 AM Status: COMPLETED Source: [facility] H&P reviewed. The patient wa s examined and there are no changes to the H&P. 36 Observed: 03/26/2025 3:10 PM Status: COMPLETED Source: [facility] PC to patient. Patient is ag reeable to 12:15 procedure time and 10:15 arrival time. HISTORY AND PHYSICAL NOTE Observed: 03/08 9:54 AM Status: COMPLETED Source: [facility] Caro Alvarez MD Cardiology Pre-operative cardiovascular examination +1 more Dx New Patient Cardiac Valve Problem Reason for Visit Progress Notes Caro Alvarez MD (Physician) Cardiology Expand All Collapse All [facility] [place] [address] [facility] [address] Dept: [phone] Dept Visit type: New : 1950 Reason [...] outside my specialty: Independent interpretation of tests HISTORY AND PHYSICAL NOTE Observed: 03/08 9:54 AM Status: COMPLETED Source: [facility] Caro Alvarez MD Cardiology Pre-operative cardiovascular examination +1 more Dx New Patient Cardiac Valve Problem Reason for Visit Progress Notes Caro Alvarez MD (Physician) Cardiology Expand All Collapse All [facility] - [address] [address] Dept: [phone] Dept Visit type: New : 1950 Reason [...] Spinal stenosis T2DM (type 2 diabetes mellitus) ([facility]) Social History Tobacco Use Smoking status: [...] outside my specialty: Independent interpretation of tests CT ANGIOGRAM TAVR Observed: 03/26/2025 9:17 AM Status: F Source: [facility] Patient Name: ABIODUN VIDALES : 1950 Exam Date/Time: 03/19/2025 09:16 Procedure: CT ANGIOGRAM TAVR Ordering Provider: DONOVAN MICHELLE Reason For Exam: AORTIC VALVE STENOSIS [facility] Cardiovascular CTA CLINICAL INDICATION: 74-year-old male with severe aortic stenosis, being evaluated for transcatheter aortic valve implantation. Computed tomography of the heart, thoracoabdominal aorta, and iliofemoral system was performed using a [employer] Aquilion One 320 detector scanner following the bolus administration of intravenous contrast. Images were reconstructed and analyzed on an advanced post-processing 3D workstation. Dose reduction was employed with automated exposure control. Total DLP: 1332 mGy-cm Study Quality: Fair. CT angiographic images of the iliofemoral system are significantly limited due to poor contrast opacification. Extracardiac Findings: No focal consolidation is seen within the lungs. There is no pleural effusion or pneumothorax. No suspicious pulmonary nodules are identified. No lymphadenopathy is seen within the chest. The liver, gallbladder, spleen, pancreas, adrenal glands, and kidneys appear within normal limits. There is no lymphadenopathy within the abdomen or pelvis. The urinary bladder appears grossly normal. The prostate appears grossly normal. Large and small bowel loops do not appear abnormally dilated or thickened. There is no free fluid or free air within the abdomen or pelvis. No lytic or blastic lesions are seen on the bone windows. Cardiac Chambers: The pericardium is unremarkable. The left and right ventricles are normal in size. Moderate concentric hypertrophy of the left ventricle is noted. The left atrium is mildly dilated. The left atrial appendage is normal in appearance. The right atrium is normal in size. Coronary Arteries: The coronaries have normal origins. There is a pattern of right coronary dominance. Postoperative changes consistent with coronary bypass graft are noted. VALVERDE to LAD, SVG to obtuse marginal, and SVG to RCA grafts are noted. There is extensive coronary atherosclerosis. The present study was not optimized for evaluation of the coronary arteries. Mitral Valve: The mitral annulus has moderate calcification, a small area of coarse calcification extending into the LVOT. The anterior mitral leaflet is free of the LVOT during systole. Aortic Valve: The aortic valve is tricuspid and heavily calcified. Aortic valve area by planimetry at 35% R-R Interval: 0.66 cm2 Predicted deployment angle (3-cusp view): WALLISIAN 2, CAU 3 Aortic Annulus: Dimensions: 2.9 x 2.3 cm Area: 5.2 cm2 Perimeter: 83 mm Left coronary height: 13 mm Right coronary height: 18 mm Aorta and Iliofemoral System Note: All vascular measurements are minimal luminal diameters using a centerline technique. Aortic Root and Thoracic Aorta: Images are limited due to poor contrast opacification of the thoracic aorta. Sinuses: 3.4 x 3.3 cm Sinotubular junction: 2.8 x 2.7 cm Mid ascending Aorta: 3.5 x 2.3 cm Abdominal Aorta: Images are limited due to poor contrast opacification of the abdominal aorta and iliac arteries. Infrarenal: 12 mm Bifurcation: 12 mm Right Iliac System: Calcification: Moderate. Tortuosity: Mild. RCIA: 6 mm REIA: 6 mm RCFA: 6 mm Left Iliac System: Calcification: Moderate. Tortuosity: Mild. LCIA: 6 mm CITLALLI: 7 mm LCFA: 4 mm IMPRESSION: Aortic stenosis, with descriptive anatomy and annular / aortic root measurements as detailed above. Iliofemoral system as detailed above. Images of the aorta and iliac arteries are significantly limited due to poor contrast opacification. Report Dictated on Electronically Signed By: Dwight Katz MD Electronically Signed Date/Time: 03/26/2025 9:17 AM EDT 36 Observed: 03/25/2025 9:59 AM Status: COMPLETED [facility] Pre TAVR phone call placed. Reviewed, procedure, instructions and meds. Pt verbalizes understanding. Pt knows to call [phone] with any concerns. MATERIAL ATTENDANT notified to complete prep for proc Diagnosis: Aortic Stenosis Procedure being done: TAVR Date/time of procedure: 02/26/25 at 12:45 pm Surgeon: Dr. Alvarez 2nd surgeon: Dr. Amaya Admission type: To be admitted Anesthesia: MAC Completed: BMP, CBC, EKG, CTA, H&P Date completed: 03/19/25 Additional orders BGT, T&S AM of procedure ANESTHESIA NOTE Observed: 03/25/2025 9:03 AM Status: COMPLETED [facility] Patient: Sam Vidales Procedure Information Date/Time: 03/29/25 1245 Procedures: TRANSCATHETER AORTIC VALVE REPLACEMENT, TRANSTHORACIC ECHOCARDIOGRAM TRANSCATHETER AORTIC VALVE REPLACEMENT (TAVR) - OR (Chest) Location: [facility] OR [facility] Operating Room Surgeons: Caro Alvarez MD; Car Amaya MD Relevant Problems [...] No date: T2DM (type 2 diabetes mellitus) (HCC) Past Surgical History: Past Surgical History: No [...] Name Age of Onset Heart disease Sister XR CHEST 2 VIEWS Observed: 03/22/2025 11:59 AM Status: F [facility] Patient Name: ABIODUN VIDALES : 1950 Exam Date/Time: 03/19/2025 09:36 Procedure: XR CHEST 2 VIEWS Ordering Provider: DONOVAN MICHELLE Reason For Exam: DYSPNEA CHEST X-RAY PA and lateral CLINICAL INDICATION: Dyspnea PA and lateral radiographs of the chest were obtained. COMPARISON: None FINDINGS: The cardiac silhouette is within normal limits. Postoperative changes of the chest. No focal consolidation is seen within the lungs. No pleural effusion or pneumothorax is identified. Degenerative changes of the thoracic spine are noted. IMPRESSION: No acute cardiopulmonary process. Report Dictated on Electronically Signed By: Valentino Lemus MD Electronically Signed Date/Time: 03/22/2025 11:59 AM EDT BASIC METABOLIC PANEL Collected: 2024 7:14 AM Status: F Source: [facility] [employer] [facility] TYPE CODE TESTS RESULT OUT OF RANGE REFERENCE UNITS LAB [id number] SODIUM 140 136-145 mmol/L LAB [id number] POTASSIUM 4.6 3.5-5.1 mmol/L Result Comment: Plasma potas sium values may be up to 0.5 mmol/L lower than serum values. LAB [id number] CHLORIDE 105 98-107 mmol/L LAB [id number] CARBON DIOXIDE 24 23-31 mmol/L LAB 4037588 UREA NITROGEN 67 High 9-23 mg/dL LAB 8664612 CREATININE 3.17 High 0.72-1.25 mg/dL LAB 7628843 GLUCOSE 142 High 82-115 mg/dL LAB [id number] CALCIUM 9.4 8.8-10.0 mg/dL LAB [id number] ANION GAP (WAY, CALCULATED) 11 3-13 mmol/L LAB 0017570 GLOMERULAR FILTRATION RATE ML/MIN/1.73 SQ M.PREDICTED 19.7 Low >60.0 mL/min/1. 73m*2 Result Comment: Calculation based on the Chronic Kidney Disease Epidemiology Collaboration (CKD-EPI) equation refit without adjustment for race Performed By: #### [id number] ### # Public Speaking Instructor: KARLA SIMON ([id number]) [facility] ([address] CBC WITH AUTO DIFFERENTIAL Collected: 03/19/2025 7:14 AM Status: F Source: [facility] TYPE CODE TESTS RESULT OUT OF RANGE REFERENCE UNITS LAB [id number] WBC 7.8 3.6-10.7 10*3/uL LAB 3939986 RBC 3.82 Low 4.40-5.90 10*6/uL LAB 7107502 HEMOGLOBIN 11.5 Low 13.0-18.0 g/dL LAB 0579928 HEMATOCRIT 34.3 Low 40.0-52.0 % LAB 2050972 MCV 89.8 77.0-99.0 fL LAB 1946148 MCH 30.1 26.0-34.0 pg LAB 1461798 MCHC 33.5 30.5-36.0 % LAB 1928362 RDW 12.8 11.5-15.0 % LAB 4774922 PLATELET COUNT 176 140-440 10*3/uL LAB 4413017 MPV 10.1 9.0-12.7 fL LAB 254 NRBC 0.0 0.0-2.0 /100 WBCs LAB 0285855 NEUTROPHILS RELATIVE 57.7 38.0-82.0 % LAB 2179557 LYMPHOCYTES RELATIVE 20.9 15.0-45.0 % LAB 7642714 MONOCYTES RELATIVE 9.8 5.0-13.0 % LAB 7528975 EOSINOPHILS RELATIVE 10.7 High 0.0-6.0 % LAB 2068081 BASOPHILS RELATIVE 0.6 0.0-2.0 % LAB 7993684 IMMATURE GRANS % 0.3 0.0-2.0 % LAB 3141495 NEUTROPHILS ABSOLUTE 4.5 1.8-7.5 10*3/uL LAB 5502795 LYMPHOCYTES ABSOLUTE 1.6 1.0-4.3 10*3/uL LAB 1916426 MONOCYTES ABSOLUTE 0.8 0.0-0.9 10*3/uL LAB 3725134 EOSINOPHILS ABSOLUTE 0.8 High 0.0-0.5 10*3/uL LAB 7338094 BASOPHILS ABSOLUTE 0.1 0.0-0.2 10*3/uL LAB 581474 IMMATURE GRANS ABSOLUTE 0.0 <0.1 10*3/uL Performed By: #### [id number] # ### Public Speaking Instructor: KARLA SIMON ([id number]) [facility] ([facility]) [address] [place] [address] 36 Observed: 03/12/2025 10:12 AM Status: COMPLETED Source: [facility] TAVR procedure, instructions reviewed with pt and spouse. Patient scheduled for TAVR on 03/29/25 at 12:45 pm Will report to [facility] by 10:45 am Can park in the [facility] Parking Deck or use [employer] parking at the [facility] entrance Plan on overnight stay in the [...] Pre-op testing done 03/19/25 Patient/family verbalized understanding. 36 Observed: 03/11/2025 4:51 PM Status: COMPLETED Source: [facility] Dx: Procedure: TAVR Date/Time: 03/29/25 at 12:45pm Surgeon: Eleanor Location: [facility] Admission: TBD CTA TAVR with hydration scheduled for 03/19 at 9am TAVR scheduled, No auth required, Medicare primary, Case on GOSS, PB and VC calendars OFFICE VISIT Observed: 03/09/2025 2:30 PM Status: COMPLETED Source: [facility] [id number] Sam Vidales [birth year] M Date Provider Department Center 03/09/2025 [id number], PARI A [facility] R[facility]EL [facility] [address] Family History Problem Relation Age of Onset Heart disease Sister Family Status - Relation Status Age at Sister Level of Service:55310 UT OFFICE/OUTPATIENT NEW MODERATE MDM 45 MINUTES Reason for Visit and Comments: New Patient [542] Cardiac Valve Problem [1334] - Heart valve clinic PROGRESS NOTE Observed: 03/09/2025 2:30 PM Status: COMPLETED Source: [facility]: Cardiothoracic Surgery Multidisciplinary Heart Valve Clinic Date: 03/09/25 Patient:Sam Vidales 1950 74 y.o. male [id number] Subjective: HPI: Sam Vidales 74 y.o. referred [...] stenosis, and T2DM (type 2 diabetes mellitus) ([facility]). Past Surgical History: has a past surgical [...] oz (72.6 kg) SpO2 97% BMI 23.64 kg/m? @[id number]@ Physical Exam Constitutional: General: He is not [...] to radiology, echocardiography, and other diagnostic images. PROGRESS NOTE Observed: 03/09/2025 2:00 PM Status: COMPLETED Source: [facility] [place] [address] [place] [address] Dept: [phone] Dept Visit type: New : 1950 Reason [...] Name Age of Onset Heart disease Sister OFFICE VISIT Observed: 03/09/2025 2:00 PM Status: COMPLETED Source: [facility] [id number] Sam Vidales [birth year] M Date Provider Department Center 03/09/2025 06833-IAIRSSCARO ALVAREZ [facility] [address] Ar Family History Problem Relation Age of Onset Heart disease Sister Family Status - Relation Status Age at Sister Level of Service:19610 UT OFFICE/OUTPATIENT NEW MODERATE MDM 45 MINUTES Reason for Visit and Comments: New Patient [542] Cardiac Valve Problem [1334] - Heart valve clinic PROGRESS NOTE Observed: 03/09/2025 11:33 AM Status: COMPLETED Source: [facility] Sam Vidales 74 y.o. refer red by Dr. Mary is being evaluated for [...] mmHg. BARBARA was unable to be measured. Medical History[1] Blood thinner - none Transthoracic Echocardiogram 02/12/25 [1] Past Medical History: Diagnosis Date (aortic stenosis) CAD (coronary artery disease) Claudication of both lower extremities (HCC) DDD (degenerative disc disease), cervical HLD (hyperlipidemia) HTN (hypertension) Spinal stenosis T2DM (type 2 diabetes mellitus) (HCC) ALLERGIES No Allergies Records Found ENCOUNTERS ADMIT/DISCHARGE ACCOUNT NUMBER ADMITTING ENCOUNTER CLASS LOC ATION SOURCE 04/07/2025/ 5 [id number] Ambulatory Buildin [id number] [facility] 03/29/2025/ 5 [id number] CARO ALVAREZ Inpatient Encounter Buildin [id number]: [facility] T1-110Bed: T1-110 A [facility] 03/19/2025/ 5 [id number] Ambulatory Buildin [id number] [facility] 03/19/2025/ 5 [id number] Ambulatory Buildin [id number] [facility] 03/19/2025/09/12/202 5 [id number] Ambulatory Buildin [id number] [facility] 03/09/2025/ 5 [id number] Ambulatory Buildin [id number] [facility] 03/09/2025/ 5 [id number] Ambulatory Buildin [id number] [facility] PAYERS ENCOUNTER GUARANTOR PAYER SUBSCRIBER SOURCE 04/07/2025 Primary Insurance:MEDICAREPoli cy Number: [id number] Date:5641-95-97Qofx Name:[place] [address]EH: SAM CARTERB: [id number] [place] [address] [facility] 04/07/2025 Secondary Insurance:AARPPolicy Number: [id number] Date:8508-31-84Ogzm Name:Supp SAM CARTERB: [id number] [place] [address] [facility] 03/29/2025 Primary Insurance:MEDICAREPoli cy Number: [id number] Date:3946-62-66Whfm Name:[place] [address]RK: SAM CARTERB: [id number] [place] [address] [facility] 03/29/2025 Secondary Insurance:AARPPolicy Number: [id number] Date:7691-46-93Lwga Name:Supp SAM CARTERB: [id number] [place] [address] [facility] 03/19/2025 Primary Insurance:MEDICAREPoli cy Number: [id number] Date:9397-18-40Dctz Name:[place] [address]VX: SAM CARTERB: [id number] [place] [address] [facility] 03/19/2025 Secondary Insurance:AARPPolicy Number: [id number] Date:4785-41-52Fbko Name:Supp SAM CARTERB: [id number] [place] [address] [facility] 03/19/2025 Primary Insurance:MEDICAREPoli cy Number: [id number] Date:1965-91-61Rdqb Name:[place] [address]IV: SAM ALBRECHTERDOB: [id number] [address] [place] [id number] [facility] 03/19/2025 Secondary Insurance:AARPPolicy Number: [id number] Date:4981-41-29Icho Name:Supp SAM CARTERB: [id number] [address] [place], [facility] 03/19/2025 Primary Insurance:MEDICAREPoli cy Number: [id number] Date:0012-87-94Xzoj Name:[place] [address]RM: SAM ALBRECHTERDOB: [id number] [address] [place] [phone] [facility] 03/19/2025 Secondary Insurance:AARPPolicy Number: [id number] Date:6884-78-66Ofvm Name:Supp SAM CARTERB: [id number] [address] [place], [facility] [facility] 03/09/2025 Primary Insurance:MEDICAREPoli cy Number: [id number] Date:1560-72-20Xcng Name:[place] [address]VV: SAM AMBROCIOERB: [id number] [place] [address] [facility] 03/09/2025 Secondary Insurance:AARPPolicy Number: [id number] Date:4957-77-26Oaff Name:Supp SAM MONACO: [id number] [place] [address] [facility] 03/09/2025 Primary Insurance:MEDICAREPoli Number: [id number] Date:2642-63-95Xiqn Name:MedicarePO [place] [address]ZW: SAM MONACO: [id number] [place] [address] [facility] 03/09/2025 Secondary Insurance:AARPPolicy Number: [id number] Date:7019-20-28Vrvo Name:Supp SAM MONACO: [id number] [place] [address] [facility]
== END | disposition home or self-care (01) ==
LOC: LAB 11:43
PROVIDERS: Referring Provider Internal Medicine Nephrology; Visit Provider Internal Medicine Nephrology
DX: N18.4 Chronic kidney disease, stage 4 (severe) (principal)
CPT/HCPCS: 36415; 80069; 82306; 82570; 83970; 84156; 85027; 86803; 87340

== ENCOUNTER → 2025-04-16 | Outpatient (CLI) | payer MEDICARE, OTHER, SELFPAY ==
--- NOTE | 2025-04-16 08:04 | CR.ITP_ITS ---
Diagnosis General Information Admitting Diagnosis: TAVR Personal Learning Style:: Audio/Visual, Demonstration, Group, Individual Preference and Written Barriers to Learning: Vision Impairment (wears glasses) Stage of change r/t lifestyle modifications:: Preparation Gave educational material for:: Treating Heart Disease, How The Heart Works, What it means to have Heart Disease, How Coronary Artery Disease is Diagnosed, Heart Procedures, What Heart Medications Do, Risk Factors & Modifications, Living an Active Life, Nutrition, Emotions & Heart Disease, Stress Management & Relaxation and Sleep Disorders & Heart Disease Education/Goals Cardiac Rehabilitation Goals Personal Goals: Initial Assessment: Improve energy level, Participate in home exercise program, Get back to work, or to resume activities faster, Improve knowledge of cardiac disease, Improve muscle strength and endurance, Improve diet and eating habits (eat healthier) and Control risk factors (learn risk factor modification) Scale for measuring improvement of personal goals Diagnosis & Disease Process Outcomes/Goals: Pt IDs own risk factors & lifestyle modifications by Session 10, Verbalizes symptoms of angina & response by session 3. and Pt independently manages Plan/Interventions: Assist Pt to ID & engage in lifestyle modification to reduce CVD risk, Instruct on individual risk factors, Review symptoms of angina & emergency actions and Review secondary diagnosis & identify educational needs. Safety Referral to Physical Therapy: No Referral to [facility] Case Management: No Fall Risk Assessed:: Yes Assistive Devices:: None Exercise - Initial Assessment Visit Date of Eval: 04/16/25 (initial eval) Mets: Pre-: >3 METS for 30 minutes by discharge, >5 METS for 30 minutes by discharge and >7 METS for 30 minutes by discharge Physician Prescribed Exercise Modalities: Treadmill, Rower, Ranjeet Mujicadyne AD-7, SciFit Stepper, [employer] Pro- II Ergometer and [employer] Lateral [employer] Frequency: 3x/week for 12 weeks [36 sessions] Intensity: 60-80% of age predicted maximum heart rate reserve Duration: 30 - 45 minutes METs - Progression 0.5-1.0 weekly:: 0.5 Current METSs:: 3 Target Heart Rate:: 87-109 Target RPE 12-16:: 12-16 Resting Blood Pressure: 101/65 EKG Type: sinus rhythm Outcomes & Goals Goals:: Verbalizes understanding of THR, RPE & goal METS by session 6, Documents in home exercise log/reports 30 min aerobic 5 day/wk by DC and Demonstrates accurate pulse taking by DC Intervention & Plan Exercise Program Goals: Instruct on personal THR & RPE, Instruct on MET level & personal MET goal, Show patient to take own pulse /validate performance until accurate and Instruct on home exercise Physical Activity Home Exercise Physical Activity - Home Exercise: Safe Exercise, Warm-up, Self-monitoring, Cool-Down, Home Exercise > 30 min Daily and Sitting Time <3 hours/daily Outcomes & Goals Outcomes/Goals: Demonstrates correct Warm-up/exercise Cool-Down (S3) if = 2.5 METs, Verbalizes symptoms of exercise intolerance by Session 3 (S3), Demonstrate safe equipment use (S3) & follows exercise prescrition (6) and Other: See below Intervention & Plan Plan/Intervention: Instruct warm-up & cool-down if exercising at > 2 METs, Instruct on symptoms of exercise intolerance & actions to take, Instruct & monitor on saf, Assess intial functional capacity & safety risk and Other See below Nutrition - Initial Assessment Program Goals Nutrition Program Goals Patient has diagnosis of Hyperlipidemia (ICD E78)?: Yes Visit Date of Eval: 04/16/25 Cholesterol/Lipids (Other Core Measures) Lipid Medication: atorvastatin Determine presence & major risk factors that modify LDL goal: Hypertension or hypertensive medication, Low HDL cholesterol <40 mg/dL*, Family history of premature CHD in Male < 55 years: female <65 yearsFa and Age men > 45 years; women >/= 55 years Outcomes/Goals: Pt IDs own risk factors & lifestyle modifications by Session 10, Verbalizes symptoms of angina & response by session 3. and Pt independently manages Intervention/Plan: Advocate for lipid panel cholesterol medication if applicable, Instruct on personal lipid levels & lipid goals/NCEP guidelines and Instruct on cholesterol Referral to dietitian:: Yes Diabetes (Other Core Measures) Diabetes Type: Diagnosis Type II ICD-10 E11 Insulin dependent injection/pump?: Yes Non-Insulin Dependent?: No Do you monitor your blood sugar at home?: Yes Referral to Diabetic Clinic:: No Outcomes/Goals:: Able to state symptoms of, Able to state and Able to state Intervention/Plan:: Instruct on, Refer to and Instruct on Weight Mgt (Other Care) Height: 5 ft 9 in Weight:: 160 lb BMI: 23.6 Diagnosis Overweight/Obesity BMI> 30% ICD-10 E66: No Outcomes/Goals: Pt sets, maintains & shows weight loss goal & trend during rehab Intervention/Plan: Instruct on ideal BMI & set weight loss goal w/patient, Assist pt to ID & incorporate diet changes for weight loss by S9, Refer to Structured Weight Loss program as appropriate and Encourage goal of using 250- 300dcal per session for weight loss Healthy Eating Habits Will attend diet classes:: Yes Outcomes/Goals:: Consume diet rich in vegs,fruits,whole grain/high fiber,fish,lean meat, Limit sat/trans fats,cholesterol & added salts & sugars and Other additional outcome/goals: Intervention/Plan:: Assess current eating habits Education Gave educational materials for:: Signs & symptoms of hypoglycemia, Signs & symptoms of hyperglycemia, Relate diabetes to coronary artery disease and Healthy eating Core - Initial Assessment Visit Date of Eval: 04/16/25 Medication Compliance Preventative Medication(s):: Aspirin, Statin/lipid and Beta oneyda H/O mental health issues: depression, anxiety, or addiction?: No Doesn?t believe in the benefits of treatment?: No Believes medications are unnecessary or harmful?: No Has a concern about medication side effects?: Yes Expresses concern over the cost of medications?: No Outcomes/Goals: Verbalizes medications,desired effect & common side effects @ DC, Pt self-reports following medication regimen and Keeps card in wallet w/medications listed by DC Interventions/plans: Instruct on medication effects & side effects, Review medication list w/patient every two weeks and Instruct importance of taking meds as ordered & assist problem solving Tobacco Use Tobacco Use: - (former) How long ago did you quit using tobacco products?: Less than 6 months ago Years Smokin Do you use smokeless tobacco?: No Outcomes/Goals: Smoking cessation achieved or maintained by discharge and Identify aids/strategies for achieving smoking cessation by session 6 Interventions/plan: Instruct on effects of smoking & provide smoking cessation resource, Assist pt to set quit date & provide encouragement, Assist pt to develop strategies to achieve/maintain quit date and Assist pt w/nicotine replacement & medication for cessation success Hypertension Hypertension Diagnosis:: Hypertension ICD-10 I10 [employer] Hypertension Guidelines Outcomes/Goals: Able to verbalize/achieve optimal blood pressure <130/80 and Incorporates diet changes & exercise for blood pressure control by DC Interventions/plan: Instruct on optimal blood pressure, hypertension & medications and Instruct on effects of sodium, alcohol, stress, exercise &hypertension Tobacco Cessation Referral Smoking Cessation Referral:: No Individual Education/Counseling:: No Education Schedule Given:: Yes Psychosocial - Initial Assess VIsit Date of Eval: 04/16/25 History of previous Mental disease:: No Psychosocial Test Tool Used:: PHQ-9 Questionnaire phq-9 Severity See PHQ-9 Score: 4 Total Score:: 4 Referral to Behavioral Health PS - Interventions: Yes: Attend Stress Management Classes and No: Referral to Behavioral Health if PHQ-9 score >9:, No: Referral to [facility] and No: Referral to Physician if PHQ-9 if score is 5-9: Outcomes/Goals: See list Psychosocial Outcomes/Goals:: ID's personal stressors & 2 strategies to manage stress by discharge Intervention/Plan: See List Interventions/Plan:: Assess stressors,coping strategies & signs of derpression on admission, Instruct/assist pt to develop coping & personal stress Mgt strategies, Refer to Behavioral Health if appropriate, Refer to Physician if appropriate, Instruct patient to recognize signs & symptoms of depression and Instruct patient to recog Patient Health Questionnaire PHQ-9 Screening Initial Assessment: 1. Little interest or pleasure in doing things: Several days 2. Feeling down, depressed, or hopeless: Several days 3. Trouble falling or staying asleep, or sleeping too much: Not at all 4. Feeling tired or having little energy: Several days 5. Poor appetite or overeating: Several days 6. Feeling bad about yourself -- or that you are a failure or have let yourself or your family down: Not at all 7. Trouble concentrating on things, such as reading the newspaper or watching television: Not at all 8. Moving or speaking so slowly that other people could have noticed. Or the opposite - being so fidgety or restless that you have been moving around a lot more than usual: Not at all 9. Thoughts that you would be better off , or of hurting yourself in some way: Not at all How difficult have these problems made it for you to do your work, take care of things at home, or get along with other people?: Not difficult at all Total Score: 4 Nutrition Survey Nutrition Survey Initial: Have you lost >10 lbs over the past 2 months without trying?: Yes Are you following a special diet at home for diabetes, low fat, or low salt?: Yes Are you interested in meeting with a dietitian for help understanding your diet?: Yes Do you eat less than 3 meals a day?: Yes (sometimes) Do you eat fatty meats (padilla, sausage, ribs, etc), fried foods, desserts, large amounts of salad dressings, margarine, butter, or cheese most days?: Yes (sometimes) Do you have food allergies? [Enter types in comment field]: No Do you eat in restaurants more than 3 times a week?: No Do you season food with salt, seasoning salt, or garlic salt?: Yes Do you used canned, boxed, frozen meals, or soups, seasoning packets?: No Total Score:: 6 Exercise - 30-day Assessment Physician Prescribed Exercise Modalities: Treadmill, Rower, Schwinn Airdyne AD-7, SciFit Stepper, SciFit Pro- II Ergometer and SciFit Lateral [employer] Associate Exercise - 60-day Assessment Physician Prescribed Exercise Modalities: Treadmill, Rower, Schwinn Airdyne AD-7, SciFit Stepper, SciFit Pro- II Ergometer and SciFit Lateral [employer] Associate Exercise - 90-day Assessment Physician Prescribed Exercise Modalities: Treadmill, Rower, Schwinn Airdyne AD-7, SciFit Stepper, SciFit Pro- II Ergometer and SciFit Lateral [employer] Associate Exercise - Final/Discharge Physician Prescribed Exercise Modalities: Treadmill, Rower, Schwinn Airdyne AD-7, SciFit Stepper, SciFit Pro- II Ergometer and SciFit Lateral [place] Frequency: 3x/week for 12 weeks [36 sessions] Intensity: 60-80% of age predicted maximum heart rate reserve METs - Progression 0.5-1.0 weekly:: 0.5 Current METSs:: 3 Target Heart Rate:: 87-109 Nutrition - 30-Day Assessment Weight Mgt (Other Care) Height: 5 ft 9 in Weight:: 160 lb BMI: 23.6 Nutrition - 60-Day Assessment Weight Mgt (Other Care) Height: 5 ft 9 in Weight:: 160 lb BMI: 23.6 Core - 30-Day Assessment Tobacco Use Years Smokin Psychosocial - 30-Day Assess Referral to Behavioral Health PS - Interventions: Yes: Attend Stress Management Classes and No: Referral to Behavioral Health if PHQ-9 score >9:, No: Referral to [facility] and No: Referral to Physician if PHQ-9 if score is 5-9: Psychosocial - 60-Day Assess Referral to Behavioral Health PS - Interventions: Yes: Attend Stress Management Classes and No: Referral to Behavioral Health if PHQ-9 score >9:, No: Referral to [facility] and No: Referral to Physician if PHQ-9 if score is 5-9: Psychosocial - 90-Day Assess Referral to Behavioral Health PS - Interventions: Yes: Attend Stress Management Classes and No: Referral to Behavioral Health if PHQ-9 score >9:, No: Referral to [facility] and No: Referral to Physician if PHQ-9 if score is 5-9: Psychosocial - Final Assessmen Psychosocial Test phq-9 Severity See PHQ-9 Score: 4 Total Score:: 4 Referral to Behavioral Health PS - Interventions: Yes: Attend Stress Management Classes and No: Referral to Behavioral Health if PHQ-9 score >9:, No: Referral to [facility] and No: Referral to Physician if PHQ-9 if score is 5-9: Nutrition - 90-Day Assessment Weight Mgt (Other Care) Height: 5 ft 9 in Weight:: 160 lb BMI: 23.6 Nutrition - Final Assessment Program Goals Patient has diagnosis of Hyperlipidemia (ICD E78)?: Yes Weight Mgt (Other Care) Height: 5 ft 9 in Weight:: 160 lb BMI: 23.6
--- NOTE | 2025-04-16 08:09 | CR.HP_ITS ---
CR - History & Physical General Arrival date:: 04/16/25 Arrival time:: 08:09 Date of Referral:: 04/14/25 Date of CR Evaluation:: 04/16/25 Referring Physician: Dr. Deras Primary Diagnosis: TAVR History of Present Cardiac Event Onset Date Current stable Angina Pectoris:: No Acute Myocardial Infarction within 12 months:: No Coronary Artery Bypass Graft:: Yes (2016) Heart valve replacement or repair:: Yes PTCA or coronary stenting:: No Heart or Heart-Lung Transplant:: No Heart Failure EF <35%:: No Medications Ambulatory Orders ?Medication ?Instructions ?Recorded aspirin 81 mg tablet,delayed 81 mg PO DAILY heart heal th 06/14/21 release (Adult Aspirin Regimen) insulin glargine 100 unit/mL 15 unit subcut DAILY diab etes 10/09/21 subcutaneous solution (Lantus U-100 Insulin) empagliflozin 25 mg tablet 12.5 mg PO DAILY diabetes 0 11/29/22 (Jardiance) atorvastatin 40 mg tablet (Lipitor) 40 mg PO DAILY Hyp erlipidemia 02/13/25 carvedilol 25 mg tablet 25 mg PO DAILY Hypertension 02/13/25 ezetimibe 10 mg tablet 10 mg PO DAILY Hypertension 02/13/25 isosorbide mononitrate 30 mg 30 mg PO DAILY For Heart 02/13/25 tablet,extended release 24 hr olopatadine 0.7 % eye drops 1 drp EACH EYE DAILY Aller gic 02/13/25 Conjuctivitis furosemide 20 mg tablet (Lasix) 60 mg PO BID PRN 04/14 potassium chloride 20 mEq 20 meq PO DAILY PRN 04/14/25 tablet,extended release (K-Tab) Allergies Allergies lisinopril Adverse Reaction (Mild, Verified 04/14/25 09:52) cough Sleep Disorder Evaluation Hx of Sleep Apnea: No Do you snore loudly (louder than talking or can be heard through closed doors)?: Yes Do you often feel tired/ fatigued/ sleepy during daytime?: No Has anyone observed you stop breathing during sleep?: No History of Hypertension (for STOP score): Yes STOP Results: Positive Advanced Directives Advanced Directives Do you have a Healthcare Power of Comber Operator?: Yes Living Will: Yes Advance Directives Information Provided: No Advance Directives on File: Yes DNR Order?:: No Past Medical History Covid-19 Screening Physicial Symptoms Fever: No Unexplained muscle aches: No Current respiratory symptoms: No Upper respiratory infections symptoms: No Gastro-intestinal symptoms: No Oxy-Gwuf-Wlcofe symptoms: No Other Clinical Concerns Has tested positive for COVID-19 in last 30 days: No Exposure Risk Had contact w/person w/symptoms or Covid-19 (+) last 14 days: No Has High Risk Exposures ID'd by Health dept/Inf Control team: No Pertinent Comorbidities 65 years or older:: Yes Lives in Assisted Living facility:: No Has a chronic lung disease or moderate to severe asthma:: No Has a serious heart condition:: Yes Immunocompromised:: No Severely obese (Body Mass Index of 40 or higher):: No Diabetic:: Yes Has chronic kidney disease undergoing dialysis:: No Has liver disease:: No Past Medical Illness Past Medical History (Updated 04/14/25 @ 11:07 by Patricia Melendez) History of transcatheter aortic valve replacement (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/25) Z95.2 History of diabetes mellitus Z86.39 History of aortic stenosis Z86.79 Anemia D64.9 CHF (congestive heart failure) I50.9 Chronic kidney disease N18.9 JUAN (acute kidney injury) N17.9 History of aortic stenosis Z86.79 History of diabetes mellitus Z86.39 Chronic kidney disease N18.9 Former tobacco use Z87.891 Valvular heart disease I38 CKD (chronic kidney disease), stage IV N18.4 HLD (hyperlipidemia) E78.5 HTN (hypertension) I10 CAD (coronary artery disease) I25.10 Congestive heart failure I50.9 Respiratory failure J96.90 Abnormal stress test R94.39 Essential hypertension I10 [facility] Claudication of lower extremity I73.9 Non-rheumatic aortic stenosis I35.0 Atherosclerosis of coronary artery of elem heart without angina pectoris I25.10 CABG x 4 VALVERDE-LAD, Free GWEN-OM1 Y graft off VALVERDE, SVG-OM2, SVG-PLB 08/06/2016 Hyperlipidemia E78.5 [facility]. 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.817 Spondylosis without myelopathy or radiculopathy, lumbar region M47.816 Other spondylosis, lumbar region M47.896 Other intervertebral disc displacement, lumbosacral region M51.27 Other intervertebral disc degeneration, lumbar region M51.36 Past Surgical History Past Surgical History (Updated 04/14/25 @ 09:48 by Chantale Wilkinson) Hx of artificial heart valve replacement (~03/2025) Z95.2 S/P laminectomy Z98.890 S/P lumbar laminectomy Z98.890 H/O coronary artery bypass surgery (08/06/16) Z95.1 CABG x 4 VALVERDE-LAD, Free GWEN-OM1 Y graft off VALVERDE, SVG-OM2, SVG-PLB 08/06/2016 @ [facility] Dr. Bruno Surgical History: coronary bypass surgery and - Family History Summary Family History Sister Heart disease Daughter Heart disease Sister Heart disease Hypertension Daughter Heart disease Hypertension Mother Heart disease Father Heart disease Social History Smoking History Smoking Status: Former smoker Years Smokin (ON AND OFF) Hx Smoking Cessation Date: 02/05/25 Hx Tobacco Use: Yes Hx Smoking Exposure: Yes Alcohol Use Alcohol Usage: Yes (1 DRINK PER MONTH) Substance Abuse Hx Substance Use: No Occupation Occupation (List type of work in comments):: Retired Hobbies, Recreation, Social Activities Hobbies: Exercise (GOLF) Recreational Activities: I am able to engage in most, but not all activities Social Environment Status Marital Status: Current Living Arrangements Living Environment:: Spouse Children How many children do you have?: 2 Do any of your children live nearby?: No Safety Do you feel safe in your surroundings?: Yes Assistance Do you need any assistance at home?: NO Review of Systems Review of Systems Hints Review of Present Symptoms: Reports Appetite - Normal and Appetite - Special Diet (TRIES TO DO A HEART HEALTHY DIET) Pain Is Patient Pain Free?: Yes Risk Factor Assessment Hypertension On medication(s)?: carvedilol, Diabetes Diabetic History: Type II ([facility] ), Medication Dependent and Insulin Dependent Nutrition Referral for Diabetes: No Obesity Height: 5 ft 9 in Weight:: 160 lb Weight in Pounds: 160.0 lbs Weight Source: Estimated by Patient Body Mass Index (BMI): 23.6 Nutritional Referral for Obesity: No Physical Inactivity Physical Inactivity: None Risk Stratification Risk Guidelines: Moderate Risk: Risk Factor for Obesity and Risk Factor for Depression and Highest Risk: Risk Factor for Smoking, Risk Factor for Dyslipidemia, Risk Factor for Diabetes, Risk Factor for Hypertension and Risk Factor for Sedentary Lifestyle For Smoking Smoking Risk Guidelines For Dyslipidemia Dyslipidemia Risk Guidelines For Diabetes Mellitus Diabetes Risk Guidelines For Obesity/Overweight Obesity/Overweight Risk Guidelines For Hypertension Hypertension Risk Guidelines For Sedentary Lifestyle Sedentary Lifestyle Risk Guidelines For Depression Depression Risk Guidelines Family History Family History Sister Heart disease Daughter Heart disease Sister Heart disease Hypertension Daughter Heart disease Hypertension Mother Heart disease Father Heart disease Motivation Motivation to Participate On a scale of 1 to 10, how prepared are you to commit to attending program?: 6 What do you see as barriers to successfully being able to complete the program?: health What do you see as the benefits of succesfully completing the program? In other words, what do you hope to get out of participating in the program?: better health and endurance, lower BP. Are there issues you are dealing with that will interfere with completing the program?: no Do you have a spouse or signficant other, family or friends who will help support you to complete the program?: yes
[2025-04-16 09:15] VITALS: BP 101/65
[2025-04-16 09:21] VITALS: BMI 23.6
[2025-04-16 09:22] VITALS: BMI 23.6
== END | disposition home or self-care (01) ==
PROVIDERS: Referring Provider Internal Medicine Cardiovascular Disease; Visit Provider Internal Medicine Cardiovascular Disease
DX: I25.10 Atherosclerotic heart disease of native coronary artery without angina pectoris (principal); Z95.1 Presence of aortocoronary bypass graft; Z95.2 Presence of prosthetic heart valve

== ENCOUNTER 2025-05-07 10:15 | Outpatient (RCR) | payer MEDICARE, OTHER, SELFPAY ==
[2025-04-16 09:22] VITALS: BMI 23.6
== END 2025-05-07 23:59 ==
LOC: CR 10:15
PROVIDERS: Referring Provider Internal Medicine Cardiovascular Disease; Visit Provider Internal Medicine Cardiovascular Disease
DX: Z95.2 Presence of prosthetic heart valve (principal); I25.10 Atherosclerotic heart disease of native coronary artery without angina pectoris; Z95.1 Presence of aortocoronary bypass graft
CPT/HCPCS: 93798

== ENCOUNTER 2025-06-02 10:15 | Outpatient (RCR) | payer MEDICARE, OTHER, SELFPAY ==
[2025-04-16 09:22] VITALS: BMI 23.6
--- NOTE | 2025-05-13 09:50 | CR.ITP_ITS ---
Exercise - Initial Assessment Visit Session #:: 11 Physician Prescribed Exercise Modalities: Schwinn Airdyne AD-7, SciFit Stepper and SciFit Lateral [place]eb Nutrition - Initial Assessment Weight Mgt (Other Care) Height: 5 ft 9 in Weight:: 165 lb 8 oz BMI: 24.4 Core - Initial Assessment Tobacco Use Years Smokin Psychosocial - Initial Assess Referral to Behavioral Health PS - Interventions: Yes: Attend Stress Management Classes and No: Referral to Behavioral Health if PHQ-9 score >9:, No: Referral to [facility] and No: Referral to Physician if PHQ-9 if score is 5-9: Exercise - 30-day Assessment Visit Date of Eval: 05/13/25 Session #:: 11 Physician Prescribed Exercise Modalities: Schwinn Airdyne AD-7, SciFit Stepper and SciFit Lateral [place] Frequency: 3x/week for 12 weeks [36 sessions] Intensity: 60-80% of age predicted maximum heart rate reserve Duration: 30 - 45 minutes Current METSs:: 3.9 Target Heart Rate:: 86-108 Current RPE:: 12 Maximum Excercise HR:: 75 Resting Blood Pressure: 164/64 Maximum Exercise Blood Pressure: 184/70 EKG Type: NSR-ST without ectopy Outcomes & Goals Goals:: Verbalizes understanding of THR, RPE & goal METS by session 6, Documents in home exercise log/reports 30 min aerobic 5 day/wk by DC, Demonstrates accurate pulse taking by DC and Other additional outcome/goals: see below Intervention & Plan Exercise Program Goals: Instruct on personal THR & RPE, Instruct on MET level & personal MET goal, Show patient to take own pulse /validate performance until accurate, Instruct on home exercise and Other additional plan/int 30-day Reassessments 30 day Reassessments:: Progressing Reassessment Notes & Comments:: Proper warm up and cool down demonstrated and explained to pt. Pt demonstrates in his daily session. Physical Activity Home Exercise Physical Activity - Home Exercise: Safe Exercise, Warm-up, Self-monitoring, Cool-Down, Home Exercise > 30 min Daily and Sitting Time <3 hours/daily Outcomes & Goals Outcomes/Goals: Demonstrates correct Warm-up/exercise Cool-Down (S3) if = 2.5 METs, Verbalizes symptoms of exercise intolerance by Session 3 (S3), Demonstrate safe equipment use (S3) & follows exercise prescrition (6) and Other: See below Intervention & Plan Plan/Intervention: Instruct warm-up & cool-down if exercising at > 2 METs, Instruct on symptoms of exercise intolerance & actions to take, Instruct & monitor on saf, Assess intial functional capacity & safety risk and Other See below 30-day Reassessments 30 day Reassessments:: Progressing Reassessment Notes & Comments:: Proper warm up and cool down demonstrated and explained to pt. Pt demonstrates in his daily session. 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 Exercise - 90-day Assessment Physician Prescribed Exercise Modalities: Schwinn Airdyne AD-7, SciFit Stepper and SciFit Lateral [place] Exercise - Final/Discharge Physician Prescribed Exercise Modalities: Schwinn Airdyne AD-7, SciFit Stepper and SciFit Lateral Fashion Styling Intern Nutrition - 30-Day Assessment Visit Date of Eval: 05/13/25 Session #:: 11 Cholesterol/Lipids (Other Core Measures) Determine presence & major risk factors that modify LDL goal: Cigarette smoking, Hypertension or hypertensive medication, Low HDL cholesterol <40 mg/dL*, Family history of premature CHD in Male < 55 years: female <65 yearsFa and Age men > 45 years; women >/= 55 years Outcomes/Goals: Pt IDs own risk factors & lifestyle modifications by Session 10, Verbalizes symptoms of angina & response by session 3., Pt independently manages and Other Additional Outcomes/Goals: Intervention/Plan: Advocate for lipid panel cholesterol medication if applicable, Instruct on personal lipid levels & lipid goals/NCEP guidelines, Instruct on cholesterol and Other additional plan/int Referral to dietitian:: Yes 30-day Reassessments:: Progressing Reassessment Notes & Comments:: Pt has appointment scheduled with hospital supervisor electron tube processing for a 1 on 1 consult. Nutrition score of 2. Diabetes (Other Core Measures) Diabetes Type: Diagnosis Type II ICD-10 E11 Insulin dependent injection/pump?: Yes Do you monitor your blood sugar at home?: Yes Referral to Diabetic Clinic:: No Outcomes/Goals:: Able to state symptoms of, Able to state, Able to state and Other additional Intervention/Plan:: Instruct on, Refer to, Instruct on and Other 30-day Reassessments:: Progressing Reassessment Notes & Comments:: Pt has appointment scheduled with hospital supervisor electron tube processing for a 1 on 1 consult. Pt scheduled to attend nutrition classes. Pt encouraged to monitor BS as directed by his physician. Weight Mgt (Other Care) Height: 5 ft 9 in Weight:: 165 lb 8 oz BMI: 24.4 Diagnosis Overweight/Obesity BMI> 30% ICD-10 E66: No Diagnosis High BMI/Morbid Obesity BMI> 35% ICD-10 Z68: No Outcomes/Goals: Pt sets, maintains & shows weight loss goal & trend during rehab and Other additional outcomes/goals Intervention/Plan: Instruct on ideal BMI & set weight loss goal w/patient, Assist pt to ID & incorporate diet changes for weight loss by S9, Refer to Structured Weight Loss program as appropriate, Encourage goal of using 250- 300dcal per session for weight loss and Other additional plan/interventions 30 day Reassessments:: Progressing Reassessment Notes & Comments:: Pt is at a healthy weight. Pt is scheduled to attend nutrition class. Heart healthy diet encouraged. Healthy Eating Habits Will attend diet classes:: Yes Outcomes/Goals:: Consume diet rich in vegs,fruits,whole grain/high fiber,fish,lean meat, Limit sat/trans fats,cholesterol & added salts & sugars and Other additional outcome/goals: Intervention/Plan:: Assess current eating habits and Other Additional plan/interventions 30-day Reassessments:: Progressing Reassessment Notes & Comments:: Heart healthy eating habits encouraged. Pt is scheduled to attend nutrition classes with supervisor electron tube processing. Nutrition score of 2 Education Gave educational materials for:: Signs & symptoms of hypoglycemia, Signs & symptoms of hyperglycemia, Relate diabetes to coronary artery disease and Healthy eating Nutrition - 60-Day Assessment Weight Mgt (Other Care) Height: 5 ft 9 in Weight:: 165 lb 8 oz BMI: 24.4 Core - 30-Day Assessment Visit Date of Eval: 05/13/25 Session #:: 11 Medication Compliance Preventative Medication(s):: Aspirin, Statin/lipid and Beta oneyda H/O mental health issues: depression, anxiety, or addiction?: No Doesn’t believe in the benefits of treatment?: No Believes medications are unnecessary or harmful?: No Has a concern about medication side effects?: No Expresses concern over the cost of medications?: No Outcomes/Goals: Verbalizes medications,desired effect & common side effects @ DC, Pt self-reports following medication regimen, Keeps card in wallet w/medications listed by DC and Other additional outcome/goals: Interventions/plans: Instruct on medication effects & side effects, Review medication list w/patient every two weeks, Instruct importance of taking meds as ordered & assist problem solving and Other additional 30-day Reassessments:: Progressing Reassessment Notes & Comments:: Pt is taking antihypertensive meds as prescribed, Pt instructed on optimal BP and effects of low sodium on BP. Tobacco Use Tobacco Use: Non-smoker How long ago did you quit using tobacco products?: Less than 6 months ago Years Smokin Outcomes/Goals: Smoking cessation achieved or maintained by discharge, Identify aids/strategies for achieving smoking cessation by session 6 and Other additional outcome/goals Interventions/plan: Instruct on effects of smoking & provide smoking cessation resource, Assist pt to set quit date & provide encouragement, Assist pt to develop strategies to achieve/maintain quit date, Assist pt w/nicotine replacement & medication for cessation success and Other additional plan/interventions 30-day Reassessments:: Met Reassessment Notes & Comments:: Pt is currently a non smoker, pt will attend smoking class. Hypertension Hypertension Diagnosis:: Hypertension ICD-10 I10 Resting Blood Pressure:: 164/64 [place] [employer] Hypertension Guidelines Peak Exercise Blood Pressure:: 184/70 Outcomes/Goals: Able to verbalize/achieve optimal blood pressure <130/80, Incorporates diet changes & exercise for blood pressure control by DC and Other additional outcomes/goals Interventions/plan: Instruct on optimal blood pressure, hypertension & medications, Instruct on effects of sodium, alcohol, stress, exercise &hypertension and Other additional plan/interventions 30 day Reassessments:: Progressing Tobacco Cessation Referral Smoking Cessation Referral:: No Individual Education/Counseling:: No Education Schedule Given:: Yes Psychosocial - 30-Day Assess VIsit Date of Eval: 05/13/25 Session #:: 11 History of previous Mental disease:: No Psychosocial Test Tool Used:: [employer] QOL Cardiac and PHQ-9 Questionnaire phq-9 Severity See PHQ-9 Score: 4 Referral to Behavioral Health PS - Interventions: Yes: Attend Stress Management Classes and No: Referral to Behavioral Health if PHQ-9 score >9:, No: Referral to [facility] and No: Referral to Physician if PHQ-9 if score is 5-9: Outcomes/Goals: See list Psychosocial Outcomes/Goals:: ID's personal stressors & 2 strategies to manage stress by discharge and Other Additional outcome/goals: Intervention/Plan: See List Interventions/Plan:: Assess stressors,coping strategies & signs of derpression on admission, Instruct/assist pt to develop coping & personal stress Mgt strategies, Refer to Behavioral Health if appropriate, Refer to Physician if appropriate, Instruct patient to recognize signs & symptoms of depression, Instruct patient to recog and Other additional plan/intervention 30-day Reassessments: 30 day Reassessments:: Progressing Reassessment Notes & Comments:: Pt denies any psychosocial issues at this time. Pt will attend stress management class. Will reassess ever 30 days. Psychosocial - 60-Day Assess Referral to Behavioral Health PS - Interventions: Yes: Attend Stress Management Classes and No: Referral to Behavioral Health if PHQ-9 score >9:, No: Referral to [facility] and No: Referral to Physician if PHQ-9 if score is 5-9: Outcomes/Goals: See list Psychosocial Outcomes/Goals:: ID's personal stressors & 2 strategies to manage stress by discharge and Other Additional outcome/goals: Psychosocial - 90-Day Assess Referral to Behavioral Health PS - Interventions: Yes: Attend Stress Management Classes and No: Referral to Behavioral Health if PHQ-9 score >9:, No: Referral to [facility] and No: Referral to Physician if PHQ-9 if score is 5-9: Psychosocial - Final Assessmen Referral to Behavioral Health PS - Interventions: Yes: Attend Stress Management Classes and No: Referral to Behavioral Health if PHQ-9 score >9:, No: Referral to [facility] and No: Referral to Physician if PHQ-9 if score is 5-9: Nutrition - 90-Day Assessment Weight Mgt (Other Care) Height: 5 ft 9 in Weight:: 165 lb 8 oz BMI: 24.4 Nutrition - Final Assessment Weight Mgt (Other Care) Height: 5 ft 9 in Weight:: 165 lb 8 oz BMI: 24.4
[2025-05-13 10:01] VITALS: BP 164/64
[2025-05-13 10:37] VITALS: BP 164/64; BMI 24.4
== END 2025-06-06 23:59 ==
LOC: CR 10:15
PROVIDERS: Referring Provider Internal Medicine Cardiovascular Disease; Visit Provider Internal Medicine Cardiovascular Disease
DX: I25.10 Atherosclerotic heart disease of native coronary artery without angina pectoris (principal); Z95.1 Presence of aortocoronary bypass graft; Z95.2 Presence of prosthetic heart valve
CPT/HCPCS: 93798

== ENCOUNTER → 2025-06-07 | Outpatient (CLI) | payer MEDICARE, OTHER, SELFPAY ==
[2025-05-13 10:37] VITALS: BMI 24.4
[2025-06-07 11:48] LABS: Hematocrit 34.5 % (40-54); Hemoglobin 11.4 g/dL (13.0-16.5); Mean Corp Hgb Conc 33.0 g/dL (32-36); Mean Corpuscular Volume 90.8 fL (80-94); Mean Platelet Vol. 9.5 fl (6.2-12.0); Platelet Count 162 K/mm3 (150-450); RBC Distribution Width CV 13.2 % (11.6-14.6); RBC Distribution Width SD 43.8 fl (35.1-43.9); Red Blood Count 3.80 M/mm3 (4.6-6.2); White Blood Count 6.3 K/mm3 (4.4-11.0)
[2025-06-07 12:18] LABS: Creatinine, Urine (random) 81.50 mg/dL (39.00-259.00); Protein, Urine (Random) 88.8 mg/dL (0.0-12.0); Protein:Creat Ratio 1090 mg/g CRE (0-200)
[2025-06-07 12:59] LABS: PTHIN 337 pg/mL (11-61)
[2025-06-07 13:00] LABS: Albumin, Serum 4.3 g/dL (3.4-4.8); Anion Gap 13 (5-15); BUN 81 mg/dL (4-19); BUN/Creat Ratio 18.9 RATIO (10-20); Calcium,Total 9.0 mg/dL (7.6-11.0); Carbon Dioxide 24.1 mmol/L (21.0-32.0); Chloride 101 mmol/L (98-108); Glucose 210 mg/dL (70-99); Potassium 4.7 mmol/L (3.3-5.1); Vitamin D,25 Hydroxy 21.5 ng/mL (30-100)
== END | disposition home or self-care (01) ==
LOC: LAB 11:20
PROVIDERS: Referring Provider Internal Medicine Nephrology; Visit Provider Internal Medicine Nephrology
DX: N18.4 Chronic kidney disease, stage 4 (severe) (principal)
CPT/HCPCS: 36415; 80069; 82306; 82570; 83970; 84156; 85027

== ENCOUNTER 2025-07-07 10:15 | Outpatient (RCR) | payer MEDICARE, OTHER, SELFPAY ==
[2025-05-13 10:37] VITALS: BMI 24.4
--- NOTE | 2025-06-11 08:03 | PCM.CR.ITP ---
Exercise - Initial Assessment Physician Prescribed Exercise Modalities: Schwinn Airdyne AD-7, SciFit Stepper and SciFit Lateral Respiratory Care Practitioner Nutrition - Initial Assessment Weight Mgt (Other Care) Height: 5 ft 9 in Weight:: 168 lb 8 oz BMI: 24.8 Core - Initial Assessment Hypertension Resting Blood Pressure:: 130/62 [place] [employer] Hypertension Guidelines Psychosocial - Initial Assess Referral to Behavioral Health PS - Interventions: Yes: Attend Stress Management Classes Exercise - 30-day Assessment Physician Prescribed Exercise Modalities: Schwinn Airdyne AD-7, SciFit Stepper and SciFit Lateral [place] Exercise - 60-day Assessment Visit Date of Eval: 06/11/25 Session #:: 22 Physician Prescribed Exercise Modalities: Schwinn Airdyne AD-7, SciFit Stepper and SciFit Lateral Respiratory Care Practitioner Frequency: 3x/week for 12 weeks [36 sessions] Intensity: 60-80% of age predicted maximum heart rate reserve Duration: 30 - 45 minutes Current METSs:: 5.3 Target Heart Rate:: 86-108 Current RPE:: 11-12 Maximum Excercise HR:: 75 Resting Blood Pressure: 122/70 Maximum Exercise Blood Pressure: 152/70 EKG Type: NSR to ST w/rare PAC's Outcomes & Goals Goals:: Verbalizes understanding of THR, RPE & goal METS by session 6, Documents in home exercise log/reports 30 min aerobic 5 day/wk by DC, Demonstrates accurate pulse taking by DC and Other additional outcome/goals: see below Intervention & Plan Exercise Program Goals: Instruct on personal THR & RPE, Instruct on MET level & personal MET goal, Show patient to take own pulse /validate performance until accurate, Instruct on home exercise and Other additional plan/int Physical Activity Home Exercise Physical Activity - Home Exercise: Safe Exercise, Warm-up, Self-monitoring, Cool-Down, Home Exercise > 30 min Daily and Sitting Time <3 hours/daily Outcomes & Goals Outcomes/Goals: Demonstrates correct Warm-up/exercise Cool-Down (S3) if = 2.5 METs, Verbalizes symptoms of exercise intolerance by Session 3 (S3), Demonstrate safe equipment use (S3) & follows exercise prescrition (6) and Other: See below Intervention & Plan Plan/Intervention: Instruct warm-up & cool-down if exercising at > 2 METs, Instruct on symptoms of exercise intolerance & actions to take, Instruct & monitor on saf, Assess intial functional capacity & safety risk and Other See below 30-day Reassessments 30 day Reassessments:: Progressing Reassessment Notes & Comments:: Proper warm up and cool down demonstrated and explained to pt. Pt is able to return demonstration in their daily sessions. Exercise - 90-day Assessment Physician Prescribed Exercise Modalities: Ranjeet Rodríguezne AD-7, SciFit Stepper and SciFit Lateral [place] Exercise - Final/Discharge Physician Prescribed Exercise Modalities: Jeremiasinn Airalinane AD-7, SciFit Stepper and SciFit Lateral Respiratory Care Practitioner Nutrition - 30-Day Assessment Weight Mgt (Other Care) Height: 5 ft 9 in Weight:: 168 lb 8 oz BMI: 24.8 Nutrition - 60-Day Assessment Program Goals Nutrition Program Goals Patient has diagnosis of Hyperlipidemia (ICD E78)?: Yes Visit Date of Eval: 06/11/25 Session #:: 22 Cholesterol/Lipids (Other Core Measures) Determine presence & major risk factors that modify LDL goal: Cigarette smoking, Hypertension or hypertensive medication, Low HDL cholesterol <40 mg/dL*, Family history of premature CHD in Male < 55 years: female <65 yearsFa and Age men > 45 years; women >/= 55 years Outcomes/Goals: Pt IDs own risk factors & lifestyle modifications by Session 10, Verbalizes symptoms of angina & response by session 3., Pt independently manages and Other Additional Outcomes/Goals: Intervention/Plan: Advocate for lipid panel cholesterol medication if applicable, Instruct on personal lipid levels & lipid goals/NCEP guidelines, Instruct on cholesterol and Other additional plan/int Referral to dietitian:: Yes (Nutrition score of 2. Pt met with our dietitian 05/26/25) 30-day Reassessments:: Progressing ( Pt met with our dietitian 05/26/25) Diabetes (Other Core Measures) Diabetes Type: Diagnosis Type II ICD-10 E11 Insulin dependent injection/pump?: Yes Do you monitor your blood sugar at home?: Yes 30-day Reassessments:: Progressing (Pt met with our dietitian 05/26/25) Weight Mgt (Other Care) Height: 5 ft 9 in Weight:: 168 lb 8 oz BMI: 24.8 Diagnosis Overweight/Obesity BMI> 30% ICD-10 E66: No Diagnosis High BMI/Morbid Obesity BMI> 35% ICD-10 Z68: No Outcomes/Goals: Pt sets, maintains & shows weight loss goal & trend during rehab and Other additional outcomes/goals Intervention/Plan: Instruct on ideal BMI & set weight loss goal w/patient, Assist pt to ID & incorporate diet changes for weight loss by S9, Refer to Structured Weight Loss program as appropriate, Encourage goal of using 250-300dcal per session for weight loss and Other additional plan/interventions Healthy Eating Habits Will attend diet classes:: Yes Outcomes/Goals:: Consume diet rich in vegs,fruits,whole grain/high fiber,fish,lean meat, Limit sat/trans fats,cholesterol & added salts & sugars and Other additional outcome/goals: Intervention/Plan:: Assess current eating habits and Other Additional plan/interventions 30-day Reassessments:: Progressing Reassessment Notes & Comments:: Pt has attended nutrition class. Pt understands the benefits of a hearth healthy low sodium diet. Education Gave educational materials for:: Signs & symptoms of hypoglycemia, Signs & symptoms of hyperglycemia, Relate diabetes to coronary artery disease and Healthy eating Core - Final Assessment Tobacco Use Years Smokin Hypertension Resting Blood Pressure:: 130/62 [place] [employer] Hypertension Guidelines Core - 60-Day Assessment Visit Date of Eval: 06/11/25 Session #:: 22 Medication Compliance Preventative Medication(s):: Aspirin, Statin/lipid and Beta oneyda H/O mental health issues: depression, anxiety, or addiction?: No Doesn?t believe in the benefits of treatment?: No Believes medications are unnecessary or harmful?: No Has a concern about medication side effects?: No Expresses concern over the cost of medications?: No Outcomes/Goals: Verbalizes medications,desired effect & common side effects @ DC, Pt self-reports following medication regimen, Keeps card in wallet w/medications listed by DC and Other additional outcome/goals: Interventions/plans: Instruct on medication effects & side effects, Review medication list w/patient every two weeks, Instruct importance of taking meds as ordered & assist problem solving and Other additional Tobacco Use Tobacco Use: Non-smoker How long ago did you quit using tobacco products?: Less than 6 months ago Years Smokin Outcomes/Goals: Smoking cessation achieved or maintained by discharge, Identify aids/strategies for achieving smoking cessation by session 6 and Other additional outcome/goals Interventions/plan: Instruct on effects of smoking & provide smoking cessation resource, Assist pt to set quit date & provide encouragement, Assist pt to develop strategies to achieve/maintain quit date, Assist pt w/nicotine replacement & medication for cessation success and Other additional plan/interventions 30-day Reassessments:: Met Reassessment Notes & Comments:: Pt is currently a nonsmoker. Pt to attend smoking class. Hypertension Hypertension Diagnosis:: Hypertension ICD-10 I10 Resting Blood Pressure:: 122/70 Resting Blood Pressure:: 130/62 [place] [employer] Hypertension Guidelines Peak Exercise Blood Pressure:: 152/70 Outcomes/Goals: Able to verbalize/achieve optimal blood pressure <130/80, Incorporates diet changes & exercise for blood pressure control by DC and Other additional outcomes/goals Interventions/plan: Instruct on optimal blood pressure, hypertension & medications, Instruct on effects of sodium, alcohol, stress, exercise &hypertension and Other additional plan/interventions 30 day Reassessments:: Progressing Reassessment Notes & Comments:: Pt's BP's are within AHA normal limits on some days. Will continue to monitor and report to pt's physician if necessary. Tobacco Cessation Referral Smoking Cessation Referral:: No Individual Education/Counseling:: No Education Schedule Given:: Yes Psychosocial - 30-Day Assess Referral to Behavioral Health PS - Interventions: Yes: Attend Stress Management Classes Outcomes/Goals: See list Psychosocial Outcomes/Goals:: ID's personal stressors & 2 strategies to manage stress by discharge and Other Additional outcome/goals: Psychosocial - 60-Day Assess VIsit Date of Eval: 06/11/25 Session #:: 22 History of previous Mental disease:: No Psychosocial Test Tool Used:: [employer] QOL Cardiac and PHQ-9 Questionnaire phq-9 Severity See PHQ-9 Score: 4 Referral to Behavioral Health PS - Interventions: Yes: Attend Stress Management Classes Outcomes/Goals: See list Psychosocial Outcomes/Goals:: ID's personal stressors & 2 strategies to manage stress by discharge and Other Additional outcome/goals: Intervention/Plan: See List Interventions/Plan:: Assess stressors,coping strategies & signs of derpression on admission, Instruct/assist pt to develop coping & personal stress Mgt strategies, Refer to Behavioral Health if appropriate, Refer to Physician if appropriate, Instruct patient to recognize signs & symptoms of depression, Instruct patient to recog and Other additional plan/intervention 30-day Reassessments: 30 day Reassessments:: Progressing Reassessment Notes & Comments:: Pt denies any psychosocial issues at this time. Pt to attend stress management class. Will reassess every 30 days. Psychosocial - 90-Day Assess Referral to Behavioral Health PS - Interventions: Yes: Attend Stress Management Classes Psychosocial - Final Assessmen Referral to Behavioral Health PS - Interventions: Yes: Attend Stress Management Classes Nutrition - 90-Day Assessment Weight Mgt (Other Care) Height: 5 ft 9 in Weight:: 168 lb 8 oz BMI: 24.8 Nutrition - Final Assessment Weight Mgt (Other Care) Height: 5 ft 9 in Weight:: 168 lb 8 oz BMI: 24.8
[2025-06-11 08:18] VITALS: BP 122/70; BP 130/62; BMI 24.8
--- NOTE | 2025-07-07 10:22 | PCM.CR.ITP ---
Exercise - Initial Assessment Physician Prescribed Exercise Modalities: Schwinn Airdyne AD-7, SciFit Stepper and SciFit Lateral Armature [employer] Nutrition - Initial Assessment Weight Mgt (Other Care) Height: 5 ft 9 in Weight:: 164 lb 8 oz BMI: 24.3 Psychosocial - Initial Assess Referral to Behavioral Health PS - Interventions: Yes: Attend Stress Management Classes Exercise - 30-day Assessment Physician Prescribed Exercise Modalities: Schwinn Airdyne AD-7, SciFit Stepper and SciFit Lateral Armature [employer] 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 Armature [employer] Exercise - 90-day Assessment Visit Date of Eval: 07/07/25 Session #:: 30 Physician Prescribed Exercise Modalities: Schwinn Airdyne AD-7, SciFit Stepper and SciFit Lateral [place] Frequency: 3x/week for 12 weeks [36 sessions] Intensity: 60-80% of age predicted maximum heart rate reserve Duration: 30 - 45 minutes Current METSs:: 5.5 Target Heart Rate:: 86-115 Current RPE:: 12-13 Maximum Excercise HR:: 77 Resting Blood Pressure: 144/86 Maximum Exercise Blood Pressure: 138/58 EKG Type: NSR with 1st degree block, rare PVC/PAC Outcomes & Goals Goals:: Verbalizes understanding of THR, RPE & goal METS by session 6, Documents in home exercise log/reports 30 min aerobic 5 day/wk by DC, Demonstrates accurate pulse taking by DC and Other additional outcome/goals: see below Intervention & Plan Exercise Program Goals: Instruct on personal THR & RPE, Instruct on MET level & personal MET goal, Show patient to take own pulse /validate performance until accurate, Instruct on home exercise and Other additional plan/int Physical Activity Home Exercise Physical Activity - Home Exercise: Safe Exercise, Warm-up, Self-monitoring, Cool-Down, Home Exercise > 30 min Daily and Sitting Time <3 hours/daily Outcomes & Goals Outcomes/Goals: Demonstrates correct Warm-up/exercise Cool-Down (S3) if = 2.5 METs, Verbalizes symptoms of exercise intolerance by Session 3 (S3), Demonstrate safe equipment use (S3) & follows exercise prescrition (6) and Other: See below Intervention & Plan Plan/Intervention: Instruct warm-up & cool-down if exercising at > 2 METs, Instruct on symptoms of exercise intolerance & actions to take, Instruct & monitor on saf, Assess intial functional capacity & safety risk and Other See below 30-day Reassessments 30 day Reassessments:: Progressing Reassessment Notes & Comments:: Pt is progressing his exercise intensity. Will continue to encourage and increase intensity as tolerated. Exercise - Final/Discharge Physician Prescribed Exercise Modalities: Ranjeet Linares AD-7, SciFit Stepper and SciFit Lateral [place] Nutrition - 30-Day Assessment Weight Mgt (Other Care) Height: 5 ft 9 in Weight:: 164 lb 8 oz BMI: 24.3 Nutrition - 60-Day Assessment Weight Mgt (Other Care) Height: 5 ft 9 in Weight:: 164 lb 8 oz BMI: 24.3 Core - 30-Day Assessment Hypertension [place] [employer] Hypertension Guidelines Reassessment Notes & Comments:: Pt's BP's are within AHA normal limits on most days. Will continue to monitor and report to pt's physician if necessary. Core - Final Assessment Hypertension [place] [employer] Hypertension Guidelines Reassessment Notes & Comments:: Pt's BP's are within AHA normal limits on most days. Will continue to monitor and report to pt's physician if necessary. Core - 90 Day Assessment Visit Date of Eval: 07/07/25 Session #:: 30 Medication Compliance Preventative Medication(s):: Aspirin, Statin/lipid and Beta oneyda H/O mental health issues: depression, anxiety, or addiction?: No Doesn?t believe in the benefits of treatment?: No Believes medications are unnecessary or harmful?: No Has a concern about medication side effects?: No Expresses concern over the cost of medications?: No Outcomes/Goals: Verbalizes medications,desired effect & common side effects @ DC, Pt self-reports following medication regimen, Keeps card in wallet w/medications listed by DC and Other additional outcome/goals: Interventions/plans: Instruct on medication effects & side effects, Review medication list w/patient every two weeks, Instruct importance of taking meds as ordered & assist problem solving and Other additional Tobacco Use Tobacco Use: Non-smoker How long ago did you quit using tobacco products?: Less than 6 months ago Years Smokin Outcomes/Goals: Smoking cessation achieved or maintained by discharge, Identify aids/strategies for achieving smoking cessation by session 6 and Other additional outcome/goals Interventions/plan: Instruct on effects of smoking & provide smoking cessation resource, Assist pt to set quit date & provide encouragement, Assist pt to develop strategies to achieve/maintain quit date, Assist pt w/nicotine replacement & medication for cessation success and Other additional plan/interventions 30-day Reassessments:: Met Reassessment Notes & Comments:: Pt is a nonsmoker. Hypertension Hypertension Diagnosis:: Hypertension ICD-10 I10 Resting Blood Pressure:: 144/86 [place] [employer] Hypertension Guidelines Peak Exercise Blood Pressure:: 138/58 Outcomes/Goals: Able to verbalize/achieve optimal blood pressure <130/80, Incorporates diet changes & exercise for blood pressure control by DC and Other additional outcomes/goals Interventions/plan: Instruct on optimal blood pressure, hypertension & medications, Instruct on effects of sodium, alcohol, stress, exercise &hypertension and Other additional plan/interventions 30 day Reassessments:: Progressing Reassessment Notes & Comments:: Pt's BP's are within AHA normal limits on most days. Will continue to monitor and report to pt's physician if necessary. Tobacco Cessation Referral Education Schedule Given:: Yes Psychosocial - 30-Day Assess Referral to Behavioral Health PS - Interventions: Yes: Attend Stress Management Classes Psychosocial - 60-Day Assess Referral to Behavioral Health PS - Interventions: Yes: Attend Stress Management Classes Psychosocial - 90-Day Assess VIsit Date of Eval: 07/07/25 Session #:: 30 History of previous Mental disease:: No Psychosocial Test Tool Used:: [employer] QOL Cardiac and PHQ-9 Questionnaire phq-9 Severity See PHQ-9 Score: 4 Referral to Behavioral Health PS - Interventions: Yes: Attend Stress Management Classes Outcomes/Goals: See list Psychosocial Outcomes/Goals:: ID's personal stressors & 2 strategies to manage stress by discharge and Other Additional outcome/goals: Intervention/Plan: See List Interventions/Plan:: Assess stressors,coping strategies & signs of derpression on admission, Instruct/assist pt to develop coping & personal stress Mgt strategies, Refer to Behavioral Health if appropriate, Refer to Physician if appropriate, Instruct patient to recognize signs & symptoms of depression, Instruct patient to recog and Other additional plan/intervention 30-day Reassessments: 30 day Reassessments:: Met Reassessment Notes & Comments:: Pt denies any psychosocial issues at this time. Pt has attended stress management classes. Psychosocial - Final Assessmen Referral to Behavioral Health PS - Interventions: Yes: Attend Stress Management Classes Nutrition - 90-Day Assessment Program Goals Nutrition Program Goals Patient has diagnosis of Hyperlipidemia (ICD E78)?: Yes Visit Date of Eval: 07/07/25 Session #:: 30 Cholesterol/Lipids (Other Core Measures) Determine presence & major risk factors that modify LDL goal: Cigarette smoking, Hypertension or hypertensive medication, Low HDL cholesterol <40 mg/dL*, Family history of premature CHD in Male < 55 years: female <65 yearsFa and Age men > 45 years; women >/= 55 years Outcomes/Goals: Pt IDs own risk factors & lifestyle modifications by Session 10, Verbalizes symptoms of angina & response by session 3., Pt independently manages and Other Additional Outcomes/Goals: Intervention/Plan: Advocate for lipid panel cholesterol medication if applicable, Instruct on personal lipid levels & lipid goals/NCEP guidelines, Instruct on cholesterol and Other additional plan/int 30-day Reassessments:: Met Reassessment Notes & Comments:: Pt met with our neuropsychology medical consultant 05/26/25. Survey score of 2. Diabetes (Other Core Measures) Diabetes Type: Diagnosis Type II ICD-10 E11 Do you monitor your blood sugar at home?: Yes 30-day Reassessments:: Met Reassessment Notes & Comments:: Pt met with our neuropsychology medical consultant 05/26/25. Weight Mgt (Other Care) Height: 5 ft 9 in Weight:: 164 lb 8 oz BMI: 24.3 Diagnosis Overweight/Obesity BMI> 30% ICD-10 E66: No Diagnosis High BMI/Morbid Obesity BMI> 35% ICD-10 Z68: No Outcomes/Goals: Pt sets, maintains & shows weight loss goal & trend during rehab and Other additional outcomes/goals Intervention/Plan: Instruct on ideal BMI & set weight loss goal w/patient, Assist pt to ID & incorporate diet changes for weight loss by S9, Refer to Structured Weight Loss program as appropriate, Encourage goal of using 250-300dcal per session for weight loss and Other additional plan/interventions Healthy Eating Habits Will attend diet classes:: Yes Outcomes/Goals:: Consume diet rich in vegs,fruits,whole grain/high fiber,fish,lean meat, Limit sat/trans fats,cholesterol & added salts & sugars and Other additional outcome/goals: Intervention/Plan:: Assess current eating habits and Other Additional plan/interventions 30-day Reassessments:: Met Reassessment Notes & Comments:: Pt has attended nutrition class. Pt understands the benefits of a hearth healthy low sodium diet. Education Gave educational materials for:: Signs & symptoms of hypoglycemia, Signs & symptoms of hyperglycemia, Relate diabetes to coronary artery disease and Healthy eating Nutrition - Final Assessment Weight Mgt (Other Care) Height: 5 ft 9 in Weight:: 164 lb 8 oz BMI: 24.3
[2025-07-07 10:34] VITALS: BP 144/86; BMI 24.3
== END 2025-07-07 23:59 ==
LOC: CR 10:15
PROVIDERS: Referring Provider Internal Medicine Cardiovascular Disease; Visit Provider Internal Medicine Cardiovascular Disease
DX: Z95.2 Presence of prosthetic heart valve (principal); I25.10 Atherosclerotic heart disease of native coronary artery without angina pectoris; Z95.1 Presence of aortocoronary bypass graft
CPT/HCPCS: 93798